=== PATIENT | male | born 1940 | race Caucasian/White ===

== ENCOUNTER 2019-01-28 03:24 | Inpatient (IN) | payer MEDICARE ==
[~2019-01-28] VITALS: Ht 170.2 cm; Wt 81.8 kg
[~2019-01-28 03:24] MED LIST: ASPI81TAEC PO; COLA100C5 PO; DIGO0.12 PO; FAMO20TA PO; FERR32TA PO; FLOM0.4C39 PO; FOLI1TAB11 PO; FURO20TA2 PO; GABA-843 PO; GEMF600T5 PO; KLOR10TA76 PO; LOPR1TAB6 PO; MAPA325T2 PO; PRAV1TAB39 PO; RISATAB3 PO; SERT25TA85 PO; SYMB16INH INH; VITMTA PO
[2019-01-28 05:37] VITALS: BP 132/78
[2019-01-28] MEDS ORDERED: THROMBIN SOLN 5,000 UNITS VIAL As Ordered ONE (06:19)
[2019-01-28] MEDS ORDERED: THROMBIN SOLN 5,000 UNITS VIAL TOP ONE (06:30)
[2019-01-28 06:34] LABS: HEMATOCRIT 29.1 % (42.0-52.0); HEMOGLOBIN 9.5 g/dl (13.5-17.5); MEAN CORPUSCULAR HEMOGLOBIN 30.9 pg (27.0-33.0); MEAN CORPUSCULAR HGB CONC 32.6 g/dl (32.0-36.5); MEAN CORPUSCULAR VOLUME 94.8 fl (80.0-96.0); PLATELET COUNT, AUTOMATED 132 10^3/uL (150-450); RED BLOOD COUNT 3.07 10^6/uL (4.30-6.10); WHITE BLOOD COUNT 6.6 10^3/uL (4.0-10.0)
[2019-01-28 06:42] LABS: INR 4.64
[2019-01-28] MEDS ORDERED: OMEP-221 PO (06:49)
[2019-01-28] MEDS ORDERED: NORC1TAB7 PO (06:49)
[2019-01-28] MEDS ORDERED: FERR325T16 PO (06:49)
[2019-01-28] MEDS ORDERED: CALC1CAP31 PO (06:49)
[2019-01-28] MEDS ORDERED: AMOX875T PO (06:49)
[2019-01-28] MEDS ORDERED: SERT25TA88 PO (06:49)
[2019-01-28] MEDS ORDERED: ROSU20TA4 PO (06:49)
[2019-01-28] MEDS ORDERED: FURO40TA2 PO (06:49)
[2019-01-28] MEDS ORDERED: WARF-58 PO (06:49)
[2019-01-28] MEDS ORDERED: METO25TA4 PO (06:49)
[2019-01-28] MEDS ORDERED: GEMF600T5 PO (06:49)
[2019-01-28] MEDS ORDERED: ALLO100T PO (06:49)
[2019-01-28] MEDS ORDERED: FINA5TAB2 PO (06:49)
[2019-01-28] MEDS ORDERED: LISI-542 PO (06:49)
[2019-01-28] MEDS ORDERED: FLOM0.4C39 PO (06:49)
[2019-01-28 07:11] LABS: ALBUMIN 3.6 GM/DL (3.2-5.2); BILIRUBIN,TOTAL 0.4 MG/DL (0.2-1.0); CALCIUM LEVEL 9.1 MG/DL (8.8-10.2); CREATININE FOR GFR 3.7 MG/DL (0.70-1.30); POTASSIUM SERUM 4.8 MEQ/L (3.5-5.1)
--- NOTE | 2019-01-28 07:46 | REP ---
Portable chest, 06:37 a.m., single AP view with the patient upright: Comparison is 03/09/2016. The bibasilar atelectasis on the prior study has resolved. There is new atelectasis inferiorly in the left lung on the current study. Lung hurtado otherwise clear. The cardiac size is normal. There are sternotomy wires, unchanged. Impression: The previous bibasilar atelectasis has resolved. There is new atelectasis inferiorly in the left lung. Electronically Signed by Devon Zavala MD 01/28/2019 07:37 A
[2019-01-28 08:00] VITALS: BP 126/70
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
[2019-01-28 08:59] VITALS: BP 124/67
[2019-01-28] MEDS ORDERED: FUROSEMIDE 40 MG TAB PO SCH (09:00)
[2019-01-28] MEDS ORDERED: METOPROLOL TART 12.5 MG PER 1/2 TAB PO SCH (09:00)
[2019-01-28] MEDS ORDERED: LISINOPRIL 5 MG TAB PO SCH (09:00)
[2019-01-28] MEDS ORDERED: SERTRALINE HCL 50 MG TAB PO SCH (09:00)
[2019-01-28] MEDS ORDERED: ALLOPURINOL 100 MG TAB PO SCH (09:00)
[2019-01-28] MEDS ORDERED: GEMFIBROZIL 600 MG TAB PO SCH (09:00)
[2019-01-28] MEDS ORDERED: PHYTONADIONE 2.5 MG **1/2 TAB PO ONE (09:00)
[2019-01-28] MEDS ORDERED: RISATAB3 PO (09:11)
[2019-01-28] MEDS ORDERED: ECOT81TA5 PO (09:11)
[2019-01-28] MEDS ORDERED: FOLI1TAB11 PO (09:11)
[2019-01-28] MEDS ORDERED: PANTOPRAZOLE 40MG TAB (PROTONIX) PO SCH (10:00)
[2019-01-28 10:58] VITALS: BP 114/65
[2019-01-28] MEDS ORDERED: FUROSEMIDE 20 MG/2 ML VIAL (J1940) IV ONE (11:00)
[2019-01-28 12:16] VITALS: BP 126/58
[2019-01-28 13:06] LABS: INR 2.51; PROTHROMBIN TIME 26.9 SECONDS (11.8-14.0)
[2019-01-28 16:00] VITALS: BP 142/69
[2019-01-28] MEDS ORDERED: WARFARIN SOD 3 MG TAB PO SCH (17:00)
--- NOTE | 2019-01-28 17:31 | REP ---
Urinary tract sonogram: History: Acute kidney injury on chronic kidney disease. Comparison: No comparison study. Findings: Scanning at the level of the urinary bladder shows no abnormality. Prostate dimensions by transabdominal scanning are 4.7 x 4.1 x 4.5 cm, calculated volume 45.3 ml. Renal cortical echogenicity pattern is normal bilaterally and contours are smooth. There is no evidence of hydronephrosis, cyst, mass, or calculus in either kidney. The right kidney measures 11.5 x 5.0 x 4.4 cm. Left renal dimensions are 11.2 x 5.0 x 5.3 cm. Impression: Mildly enlarged prostate, otherwise negative urinary tract sonography. Electronically Signed by Mina Cherry MD 01/28/2019 07:54 P
--- NOTE | 2019-01-28 19:02 | DS.PDOC ---
Discharge Summary General Date of Admission Jan 28, 2019 at 05:25 Date of Discharge JANUARY 28, 2019 Specialist/Consultants Involve: CAYETANO HENDRICKS DMD Discharge Summary PROCEDURES PERFORMED DURING STAY: None. ADMITTING DIAGNOSES: 1. Acute oral bleeding due to Coumadin coagulopathy. DISCHARGE DIAGNOSES: 1. Coumadin coagulopathy resolved,Coronary artery disease, aortic stenosis, status post aortic valve replacement, chronic atrial fibrillation, chronic kidney disease stage III, COPD, congestive heart failure, unspecified, benign prostatic hypertrophy, essential hypertension, dyslipidemia, peripheral vascular disease. COMPLICATIONS/CHIEF COMPLAINT: Post Op Bleed. HISTORY OF PRESENT ILLNESS: This is a 78-year-old male who's been on Coumadin therapy for chronic atrial fibrillation. He had some dental work and commence with bleeding from his mouth. Post procedure. At an outlying facility. He was found to have an elevated INR of at least 7. He subsequently sent to this facility for management.. HOSPITAL COURSE: The patient was admitted to the ICU. At this facility. His INR ascended to be 4.64. Patient was seen by the oral surgeon who requested that his INR be decreased further before he could have any invasive intervention. Patient then received 2 units of FFP. In the course of this. His bleeding did stop. His hemoglobin remained stable. We did note he had a large black bowel movement that was attributed to swallowed blood. The patient remained hemodynamically stable otherwise. His INR came down to 2.51. He was seen again by the oral surgeon and cleared for discharge to home. He was also cleared to resume his Coumadin. The patient does have a history of aortic valve replacement. This is a bioprosthetic valve.. DISCHARGE MEDICATIONS: Please see below. ALLERGIES: Please see below. PHYSICAL EXAMINATION ON DISCHARGE: VITAL SIGNS: Please see below. HEENT: Patient was not having any oral bleeding. He did have some swelling to his right lower jaw. CARDIOVASCULAR EXAMINATION: Regular rate and rhythm with a normal S1 and S2, faint murmur RESPIRATORY EXAMINATION: Clear to auscultation with no rhonchi, rales, wheezes or cough ABDOMINAL EXAMINATION: Soft, nondistended, otherwise benign to exam EXTREMITIES: No peripheral edema SKIN: No bruising or other lesions LABORATORY DATA: Please see below. IMAGING: PROGNOSIS: ACTIVITY: As tolerated. DIET: Soft DISCHARGE PLAN: The patient is stable for discharge to home. He will follow-up with his primary care provider next week. He will also follow up with his oral surgeon as needed. DISPOSITION: . DISCHARGE INSTRUCTIONS: 1. . ITEMS TO FOLLOWUP ON ON OUTPATIENT: 1. . DISCHARGE CONDITION: Stable. TIME SPENT ON DISCHARGE: Greater than 35 minutes. Vital Signs/I&Os Vital Signs Date Time Temp Pulse Resp B/P (MAP) Pulse Ox O2 Delivery O2 Flow Rate FiO2 01/28/19 16:00 98.6 93 18 142/69 (93) 95 I&O- Last 24 Hours up to 6 AM 01/28/19 06:00 Intake Total 0 ml Output Total 200 ml Balance -200 ml Laboratory Data Labs 24H Laboratory Tests 2 01/28/19 06:15: Nucleated Red Blood Cells % (auto) 0.0, Prothrombin Time 44.0H, Prothromb Time International Ratio 4.64, Anion Gap 10, Glomerular Filtration Rate 17.0L, Blood Urea Nitrogen 92H, Creatinine 3.70H, Sodium Level 141, Potassium Level 4.8, Chloride Level 108H, Carbon Dioxide Level 23, Calcium Level 9.1, Aspartate Amino Transf (AST/SGOT) 15, Alanine Aminotransferase (ALT/SGPT) 14, Alkaline Phosphatase 129H, Total Bilirubin 0.4, Total Protein 7.0, Albumin 3.6, Albumin/Globulin Ratio 1.06 01/28/19 12:40: Prothrombin Time 26.9H, Prothromb Time International Ratio 2.51 CBC/BMP Laboratory Tests 01/28/19 06:15 Red Blood Count 3.07 L, Mean Corpuscular Volume 94.8, Mean Corpuscular Hemoglobin 30.9, Mean Corpuscular Hemoglobin Concent 32.6, Red Cell Distribution Width 14.0, Calcium Level 9.1, Aspartate Amino Transf (AST/SGOT) 15, Alanine Aminotransferase (ALT/SGPT) 14, Alkaline Phosphatase 129 H, Total Bilirubin 0.4, Total Protein 7.0, Albumin 3.6 Discharge Medications Scheduled Allopurinol (Allopurinol) 100 Mg Tablet, 100 MG PO DAILY, (Reported) Amoxicillin (Amoxicillin) 875 Mg Tablet, 875 MG PO BID, (Reported) FILLED 01/25/19 FOR 5 DAYS Aspirin (Ecotrin) 81 Mg Tablet.dr, 81 MG PO QHS, (Reported) Calcitriol (Calcitriol) 0.25 Mcg Capsule, 0.25 MCG PO QHS, (Reported) Ferrous Gluconate (Ferrous Gluconate) 324 Mg Tablet, 324 MG PO QPM, (Reported) Finasteride (Finasteride) 5 Mg Tablet, 5 MG PO QHS, (Reported) Folic Acid (Folic Acid) 1 Mg Tablet, 1 MG PO QHS, (Reported) Furosemide (Furosemide) 40 Mg Tablet, 40 MG PO BID, (Reported) TAKES AM AND PM Gemfibrozil (Gemfibrozil) 600 Mg Tablet, 600 MG PO BID, (Reported) L.acidoph/L.bulg/B.bif/S.therm (Pearl-Bid Caplet) 1 Each Tablet, 1 TAB PO QPM, (Reported) Lisinopril (Lisinopril) 5 Mg Tablet, 5 MG PO DAILY, (Reported) Metoprolol Tartrate (Metoprolol Tartrate) 25 Mg Tablet, 12.5 MG PO BID, (Reported) Omeprazole (Omeprazole) 40 Mg Capsule.dr, 40 MG PO DAILY, (Reported) Rosuvastatin Calcium (Rosuvastatin Calcium) 20 Mg Tablet, 20 MG PO QHS, (Reported) Sertraline HCl (Sertraline HCl) 25 Mg Tablet, 25 MG PO DAILY, (Reported) Tamsulosin HCl (Flomax) 0.4 Mg Capsule, 0.4 MG PO QHS, (Reported) Warfarin Sodium (Warfarin Sodium) 3 Mg Tablet, 3 MG PO QHS, (Reported) Allergies Coded Allergies: No Known Allergies (Unverified , 01/28/19) VALERIY FINE MD Jan 28, 2019 19:02
[2019-01-28] MEDS ORDERED: TAMSULOSIN 0.4 MG CAP PO SCH (21:00)
[2019-01-28] MEDS ORDERED: FERROUS GLUCONATE 324 MG TAB PO SCH (21:00)
[2019-01-28] MEDS ORDERED: FOLIC ACID 1 MG TAB PO SCH (21:00)
[2019-01-28] MEDS ORDERED: FINASTERIDE 5 MG TAB PO SCH (21:00)
[2019-01-28] MEDS ORDERED: ROSUVASTATIN 10 MG TAB (CRESTOR) PO SCH (21:00)
== END 2019-01-28 19:01 | disposition home or self-care (01) | DRG 813 ==
LOC: M ICU 05:25
PROVIDERS: ADMIT Internal Medicine Nephrology; ATTEND Internal Medicine Nephrology
DX: D68.32 Hemorrhagic disorder due to extrinsic circulating anticoagulants (principal); K91.840 Postprocedural hemorrhage of a digestive system organ or structure following a digestive system procedure; N17.9 Acute kidney failure, unspecified; I13.0 Hypertensive heart and chronic kidney disease with heart failure and stage 1 through stage 4 chronic kidney disease, or unspecified chronic kidney disease; D68.4 Acquired coagulation factor deficiency; N18.3 Chronic kidney disease, stage 3 (moderate); I50.9 Heart failure, unspecified; J44.9 Chronic obstructive pulmonary disease, unspecified; I25.10 Atherosclerotic heart disease of native coronary artery without angina pectoris; I35.0 Nonrheumatic aortic (valve) stenosis; I48.2 Chronic atrial fibrillation; N40.0 Benign prostatic hyperplasia without lower urinary tract symptoms; E78.5 Hyperlipidemia, unspecified; I73.9 Peripheral vascular disease, unspecified; T45.515A Adverse effect of anticoagulants, initial encounter; Z79.899 Other long term (current) drug therapy; Z79.82 Long term (current) use of aspirin; M10.9 Gout, unspecified; E66.9 Obesity, unspecified

== ENCOUNTER 2019-01-29 17:16 | Emergency (ER) | payer MEDICARE ==
[~2019-01-29] VITALS: Ht 170.2 cm; Wt 81.8 kg
[~2019-01-29 17:16] MED LIST changes: +ALLO100T PO; +AMOX875T PO; +CALC1CAP31 PO; +ECOT81TA5 PO; +FERR325T16 PO; +FINA5TAB2 PO; +FURO40TA2 PO; +LISI-542 PO; +METO25TA4 PO; +NORC1TAB7 PO; +OMEP-221 PO; +ROSU20TA4 PO; +SERT25TA88 PO; +WARF-58 PO
[2019-01-29] MEDS ORDERED: THROMBIN SOLN 5,000 UNITS VIAL As Ordered ONE (17:43)
[2019-01-29 18:56] LABS: INR 3.02; PROTHROMBIN TIME 31.2 SECONDS (11.8-14.0)
[2019-01-29 19:45] VITALS: BP 143/84
== END 2019-01-29 20:04 | disposition home or self-care (01) ==
LOC: M ED 17:16
DX: K91.840 Postprocedural hemorrhage of a digestive system organ or structure following a digestive system procedure (principal); K08.409 Partial loss of teeth, unspecified cause, unspecified class; I11.0 Hypertensive heart disease with heart failure; I50.9 Heart failure, unspecified; I35.9 Nonrheumatic aortic valve disorder, unspecified; D50.9 Iron deficiency anemia, unspecified; K21.9 Gastro-esophageal reflux disease without esophagitis; E78.5 Hyperlipidemia, unspecified; Z79.899 Other long term (current) drug therapy; Z79.01 Long term (current) use of anticoagulants; Z79.2 Long term (current) use of antibiotics; Z79.82 Long term (current) use of aspirin

== ENCOUNTER 2020-09-06 15:29 | Inpatient (IN) | payer MEDICARE ==
[~2020-09-06] VITALS: Ht 170.2 cm; Wt 80.4 kg
[2020-09-06] VITALS (33 sets, daily range): BP systolic 79–119; BP diastolic 47–74
[~2020-09-06 15:29] MED LIST changes: +GABA-282 PO; -GABA-843 PO; -MAPA325T2 PO; +MAPA325T8 PO; -ROSU20TA4 PO; +ROSU20TA5 PO; +SERT25TA21 PO; -SERT25TA88 PO
[2020-09-06] MEDS ORDERED: HumaLOG INSULIN (NovoLOG) PER UNIT SC SCH ×2 (18:00→21:00)
[2020-09-06] MEDS ORDERED: NOREPINEPHRINE 4 MG/4 ML AMP As Ordered ONE (19:47)
--- OUTSIDE RECORDS SUMMARY | 2020-09-06 19:59 | CCD | Continuity of Care Document ---
Author Author Lasha DUARTE MD Organization Unknown Address [facility] [address] Phone [phone] Care Team Providers Care Drop Man Name Role Phone Devon Gee MD AUTM [phone] [place] Melgar MD AUTM [phone] Tray Vazquez MD AUTM [phone] Karl Weir MD AUTM [phone] Tono Guardado DO AUTM [phone] Problems Active Problems Provider Date Coronary arteriosclerosis Vivienyaquelin Metzgerw, PA-C Onset: 2010 Coronary artery bypass grafts x 2 Vivien Yaquelin Metzgerw, PA-C Onset : 07/02/2011 History of coronary artery bypass grafting Vivien Morel, P A-C Onset: 06/28/2015 Patient post percutaneous transluminal coronary angiop lasty Vivien Metzgerw, PA-C Onset: 07/02/2011 Aortic valve disorder Vivien E Javierenow, PA-C Onset: 07/02/2011 Transplantation of heart valve Vivien E Symenow, PA-C Onset: 0 10/25/2016 Chronic atrial fibrillation Vivien E Javierenow, PA-C Onset: 10/09 Aneurysm of thoracic aorta Vivien E Domenicaw, PA-C Onset: 10/25 Mitral valve disorder Vivien E Jaiverenow, PA-C Onset: 07/02/2011 Essential hypertension Vivien E [place]omenic[place], PA-C Onset: 5 Pure hypercholesterolemia Vivien E Javierenow, PA-C Onset: 2010 Obesity Vivien E Symenow, PA-C Onset: 07/02/2011 Peripheral vascular disease Vivien Morel PA-C Onset: 06/12 Mixed hyperlipidemia Vivien Morel PA-C Onset: 04/29/2017 Old myocardial infarction Vivien Morel PA-C Onset: 2017 Dietary management surveillance Vivien Morel PA-C Onset: 10/30/2017 Hypertensive heart disease with heart failure Vivien Morel PA-C Onset: 10/30/2017 Chronic diastolic heart failure Vivien Morel PA-C Onset: 10/30/2017 Permanent atrial fibrillation Vivien Morel PA-C Onset: Social History Type Date Description Comments Sex Unknown Tobacco Use Start: Unknown End: Unknown Former Cigarette Smo ker 1/2 ppd for 3 years quit 1955 ETOH Use Does not consume alcohol Tobacco Use Start: Unknown End: Unknown Patient is a former smoker 1/2 ppd for 3 years quit 1955 Smoking Status Reviewed: 08/01/20 Patient is a former smoker 1/ 2 ppd for 3 years quit 1955 Exercise Type/Frequency Does housework sporadica lly Exercise Type/Frequency General Activities Daily "puttering" in garage Exercise Type/Frequency Walks sporadically insid e house Exercise Limitations Shortness Of Breath Exercise Limitations Fatigue Allergies, Adverse Reactions, Alerts Description No Known Drug Allergies Medications Active Medications SIG Qnty Indications Ordering Provide r Date Eligard 45mg Kit 1 injection every 6 months as directed Tono Guardado DO 07/31/2020 Vitamin D 25mcg (1000 Ut) Tablets 1 by mouth every other day Tono Guardado DO 07/31/2020 Epogen 2000Unit/ML Solution inject as directed Karl Weir MD 07/31/2020 Albuterol Sulfate HFA 108(90Base) mcg/Act Aerosol inhale two puffs as needed every 4 hours Unknown 01/30/2020 Metoprolol Tartrate 25mg Tablets 1/2 by mouth twice a day Unknown 06/15/[address] 1 by mouth every day Devon Gee MD 05/04/2019 Warfarin Sodium 2mg Tablets as directed by PCP 180tabs Devon Gee MD 11/02/2018 Rosuvastatin Calcium 10mg Tablets 1 tablet by mouth daily at bedtime Unknown 2017 Finasteride 5mg Tablets 1 by mouth every day Devon Gee MD 11/30/2017 Folic Acid 1mg Tablets 1 by mouth every day Devon Gee MD 11/30/2017 Ferrous Gluconate 324(38Fe) mg Tab lets 1 by mouth once a day Devon Gee MD 11/30/2017 Furosemide 40mg Tablets 1 by mouth bid Karl Weir MD 10/29/2017 Warfarin Sodium 3mg Tablets as directed by pcp Unknown 04/28/2017 Allopurinol 100mg Tablets 1 by mouth every day Unknown 04/28/2017 Probiotic Acidophilus Capsules 1 by mouth every day Unknown 04/28/2017 Lisinopril 5mg Tablets 1 by mouth every day Unknown 10/24/2016 Aspirin 81mg Tablets 1 by mouth every day Devon Gee MD 10/24/2016 Tamsulosin HCL 0.4mg Capsules 1 by mouth every day LiliancapTray Nation MD 06/23/2014 Nitrostat 0.4mg Tablets Sub 1 sl every 5min x3 as needed for chest pain 25tabs I25.10 Harrison Duarte MD 03/15/2010 Gemfibrozil 600mg Tablets 1 tablet by mouth twice a day 180tabs E78.0 Harrison Duarte MD Immunizations Description No Information Available Vital Signs Date Vital Result Comment 08/01/2020 10:11am Weight 185.00 lb Height 67 inches 5'7" BMI (Body Mass Index) 29.0 kg/m2 Heart Rate 68 /min Irregular Respiratory Rate 16 /min BP Systolic Right Arm 122 mmHg sitting, regular c uff BP Diastolic Right Arm 66 mmHg sitting, regular cuff BP Systolic Left Arm 120 mmHg sitting BP Diastolic Left Arm 66 mmHg sitting 01/31/2020 9:41am Weight 184.00 lb Height 67 inches 5'7" BMI (Body Mass Index) 28.8 kg/m2 Heart Rate 72 /min Irregular Respiratory Rate 16 /min BP Systolic Right Arm 122 mmHg sitting, regular c uff BP Diastolic Right Arm 66 mmHg sitting, regular cuff BP Systolic Left Arm 124 mmHg sitting BP Diastolic Left Arm 66 mmHg sitting Results Test Acquired Date Facility Test Result H/L Range Note Renal Profile 07/12/2020 [facility] ([facility])- - Glucose 113 High 74-106 Blood Urea Nitrogen 78 High 7-18 Creatinine 3.6 High 0.8-1.3 GFR (Calculated) 17.4 Sodium 139 136-145 Potassium 4.7 3.6-5.2 Chloride 107 100-108 Carbon Dioxide 19 Low 21-32 Calcium 9.5 8.5-10.2 Phosphorus 4.0 Albumin 3.8 3.4-5.0 CBC without Differential 07/12/2020 [facility] ([facility])- - White Blood Count 4.5 4.1-11.0 Red Blood Count 3.1 Low 4.1-5.5 Platelets 164 143-377 Hemoglobin 10.0 Low 12.5-17.9 Hematocrit 30.5 Low 36.5-50.1 Tibc/Iron/% Saturation 07/12/2020 [facility] ([facility])- - Iron 82 65-175 Tibc 306 Tibc % Saturation 27 Procedures Date Code Description Status 08/01/2020 04805 ECG 12-Lead Completed Medical Devices Description No Information Available Encounters Type Date Location Provider Dx Diagnosis Office Visit 08/01/2020 10:15a Main Office Vivien Morel PA-C I25.1 0 Athscl heart disease of [place] coronary artery w/o ang pctrs I25.2 Old myocardial infarction 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 Z95.5 Presence of coronary angiopl asty implant and graft I50.32 Chronic diastolic (congestiv e) heart failure I11.0 Hypertensive heart disease w ith heart failure I35.0 Nonrheumatic aortic (valve) stenosis Z95.3 Presence of xenogenic heart valve I71.2 Thoracic aortic aneurysm, wi thout rupture I34.0 Nonrheumatic mitral (valve) insufficiency I34.2 Nonrheumatic mitral (valve) stenosis I48.21 Permanent atrial fibrillatio n I73.9 Peripheral vascular disease, unspecified Z71.3 Dietary counseling and surve illance Office Visit 06/26/2020 3:28p Main Office Harrison Duarte MD I34.0 Nonrheumatic mitral (valve) insufficiency I35.0 Nonrheumatic aortic (valve) stenosis I50.32 Chronic diastolic (congestiv e) heart failure E78.2 Mixed hyperlipidemia Office Visit 05/23/2020 3:11p Main Office Harrison Duarte MD I34.0 Nonrheumatic mitral (valve) insufficiency I35.0 Nonrheumatic aortic (valve) stenosis I50.32 Chronic diastolic (congestiv e) heart failure E78.2 Mixed hyperlipidemia Office Visit 05/10/2020 8:11a Main Office Harrison Duarte MD I34.0 Nonrheumatic mitral (valve) insufficiency I35.0 Nonrheumatic aortic (valve) stenosis I50.32 Chronic diastolic (congestiv e) heart failure E78.2 Mixed hyperlipidemia Office Visit 03/31/2020 2:49p Main Office Harrison Duarte MD I34.0 Nonrheumatic mitral (valve) insufficiency I35.0 Nonrheumatic aortic (valve) stenosis I50.32 Chronic diastolic (congestiv e) heart failure I25.10 Athscl heart disease of [place] coronary artery w/o ang pctrs Assessments Date Code Description Provider 08/01/2020 I25.10 Atherosclerotic heart disease of [place] coronary artery with Vivien Morel PA-C 08/01/2020 I25.2 Old myocardial infarction Vivien Morel, PA-C 08/01/2020 Z95.1 Presence of aortocoronary bypass graft Vivien Morel, PA-C 08/01/2020 Z95.5 Presence of coronary angioplasty implant and graft Vivien Morel, PA-C 08/01/2020 I50.32 Chronic diastolic (congestive) h eart failure Vivien Morel, PA-C 08/01/2020 I11.0 Hypertensive heart disease with heart failure Vivien Morel, PA-C 08/01/2020 I35.0 Nonrheumatic aortic (valve) sten osis Vivien Morel, PA-C 08/01/2020 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 Vivien Morel, PA-C 08/01/2020 I71.2 Thoracic aortic aneurysm, withou t rupture Vivien Morel, PA-C 08/01/2020 I34.0 Nonrheumatic mitral (valve) insu fficiency Vivien Morel, PA-C 08/01/2020 I34.2 Nonrheumatic mitral (valve) sten osis Vivien Morel, PA-C 08/01/2020 I48.21 Permanent atrial fibrillation Ahsan Canseco, PA-C 08/01/2020 I73.9 Peripheral vascular disease, uns pecified Vivien E Symenow, PA-C 08/01/2020 Z71.3 Dietary counseling and surveilla nce Vivien Morel PA-C 06/26/2020 I34.0 Nonrheumatic mitral (valve) insu fficiency Harrison Duarte MD 06/26/2020 I35.0 Nonrheumatic aortic (valve) sten osis Harrison Duarte MD 06/26/2020 I50.32 Chronic diastolic (congestive) h eart failure Harrison Duarte MD 06/26/2020 E78.2 Mixed hyperlipidemia Harrison dodge MD 05/23/2020 I34.0 Nonrheumatic mitral (valve) insu fficiency Harrison Duarte MD 05/23/2020 I35.0 Nonrheumatic aortic (valve) sten osis Harrison Duarte MD 05/23/2020 I50.32 Chronic diastolic (congestive) h eart failure Harrison Duarte MD 05/23/2020 E78.2 Mixed hyperlipidemia Harrison dodge MD 05/10/2020 I34.0 Nonrheumatic mitral (valve) insu fficiency Harrison Duarte MD 05/10/2020 I35.0 Nonrheumatic aortic (valve) sten osis Harrison Duarte MD 05/10/2020 I50.32 Chronic diastolic (congestive) h eart failure Harrison Duarte MD 05/10/2020 E78.2 Mixed hyperlipidemia Harrison dodge MD 03/31/2020 I34.0 Nonrheumatic mitral (valve) insu fficiency Harrison Duarte MD 03/31/2020 I35.0 Nonrheumatic aortic (valve) sten osis Harrison Duarte MD 03/31/2020 I50.32 Chronic diastolic (congestive) h eart failure Harrison Duarte MD 03/31/2020 I25.10 Atherosclerotic heart disease of [place] coronary artery with Harrison Duarte MD Plan of Treatment Future Appointment(s):* 01/31/2021 10:15 am - Vivien Morel PA-C at Main Office 08/01/2020 - Vivien Morel PA-C* I25.10 Atherosclerotic heart disease of [place] coronary artery with * I25.2 Old myocardial infarction * Z95.1 Presence of aortocoronary bypass graft * Z95.5 Presence of coronary angioplasty implant and graft * I50.32 Chronic diastolic (congestive) heart failure* Recommendations:* Follow a 2 grams sodium diet and 50 ounces fluid restriction per 24 hour and do daily weights. Call the office for weight gain of 3 lbs or more. * I11.0 Hypertensive heart disease with heart failure * I35.0 Nonrheumatic aortic (valve) stenosis * Z95.3 Presence of xenogenic heart valve* Recommendations:* You require antibiotics prior to any dental work and some surgical procedures. * I71.2 Thoracic aortic aneurysm, without rupture * I34.0 Nonrheumatic mitral (valve) insufficiency * I34.2 Nonrheumatic mitral (valve) stenosis * I48.21 Permanent atrial fibrillation * I73.9 Peripheral vascular disease, unspecified * Z71.3 Dietary counseling and surveillance* Recommendations:* Follow a low fat/low cholesterol diet and do as much aerobic exercise as you can tolerate. * All * Follow up:* 6 month follow up. Functional Status Functional Condition Comment Date Status Independent with all ADL's Activ e Mental Status Description No Information Available Referrals Description No Information Available
--- OUTSIDE RECORDS SUMMARY | 2020-09-06 19:59 | CCD | Continuity of Care Document ---
Author Author Lasha SAMPSON MD Organization Unknown Address [address] [place] [address] Phone [phone] Care Team Providers Care Glass Glazier Name Role Phone Karl Weir M.D. AUTM [phone] Tono Guardado MD AUTM [phone] Problems Active Problems Provider Date Microscopic hematuria Tray Sampson MD Onset: 04/28/2014 Raised prostate specific antigen Tray Sampson MD Onset: 04/28/2014 Benign prostatic hypertrophy with outflow obstruction Tushar Sampson MD Onset: 04/28/2014 Choco hematuria Tray Sampson MD Onset: 04/28/2014 Nocturia Tray Sampson MD Onset: 04/28/2014 Dribbling of urine Tray Sampson MD Onset: 04/28/2014 Increased frequency of urination Tray Sampson MD Onset: 05/13/2014 Impotence of organic origin Tray Sampson MD Onset: 05/12 Postablative testicular hypofunction Tray Sampson MD On set: 11/01/2019 Malignant tumor of prostate Tray Sampson MD Onset: 07/12 Neoplasm of uncertain behavior of prostate Tray Sampson MD Onset: 06/21/2019 Redundant prepuce and phimosis Tray Sampson MD Onset: 08/18/2017 Social History Type Date Description Comments Sex Unknown Tobacco Use Start: Unknown End: Former Cigarette Sm oker Smoking Status Reviewed: 08/14/20 Former Cigarette Smoker ETOH Use Patient denies alcohol use Exercise Type/Frequency Does housework daily Spl 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 wood, 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, works in his garage Allergies, Adverse Reactions, Alerts Description No Known Drug Allergies Medications Active Medications SIG Qnty Indications Ordering Provide r Date Eligard 45mg Kit subcut 1 every 6 months x2 2units Tray Sampson MD 08/02/2019 Finasteride 5mg Tablets Take One Tablet By Mouth Every Day 90tabs Tray Sampson MD 06/18/2017 Tamsulosin HCL 0.4mg Capsules Take One Capsule By Mouth Every Day After Dinner 90caps Tray Sampson MD 05/13/2014 Gemfibrozil 600mg Tablets Unknown Albuterol Sulfate (2 .5mg/3ML) 0.083% Nebulizer Unknown Calcitriol 0.25mcg Capsules Unknown Epogen 09880Kkzg/ML Solution every two weeks Unknown Rosuvastatin Calcium 10mg Tablets 1 tab po daily Unknown Ferrous Gluconate 324(38Fe) mg Tab lets daily Unknown Probiotic Capsules 1 cap po daily Unknown Allopurinol 100mg Tablets 1 tab po daily Unknown Warfarin Sodium 3mg Tablets 1 by mouth every day Unknown Lisinopril 5mg Tablets daily Unknown Lasix 40mg Tablets 1 by mo uth every day Unknown Metoprolol Tartrate 25mg Tablets 1/2 tab po bid Unknown Omeprazole 20mg Capsules DR 1 cap po daily Unknown Folic Acid 1mg Tablets daily Unknown Aspirin 81mg Tablets DR 1 by mouth every day Unknown Medications Administered in Office Medication SIG Qnty Indications Ordering Provider Date Maryd 6 Months 45MG Injection Tray Sampson MD 08/14/2020 Enzo 6 Months 45MG Injection [place] Nurse 02/03/2020 Enzo 6 Months 45MG Injection Tray Sampson MD 08/02/2019 Immunizations Description No Information Available Vital Signs Date Vital Result Comment 08/14/2020 1:20pm Height 67 inches 5'7" Weight 185.00 lb Weight 83.916 kg BMI (Body Mass Index) 29.0 kg/m2 BP Systolic 122 mmHg BP Diastolic 65 mmHg Heart Rate 89 /min Body Temperature 96.8 F 05/10/2020 1:42pm Height 67 inches 5'7" Weight 190.00 lb Weight 86.184 kg BMI (Body Mass Index) 29.8 kg/m2 BP Systolic 127 mmHg BP Diastolic 89 mmHg Heart Rate 86 /min Body Temperature 96.8 F Post Void Residual ml 17 Bladder Scanner Results Test Acquired Date Facility Test Result H/L Range Note PSA Total W/Reflex 08/14/2020 [facility] [address] [place] [address] [phone] Total PSA only <0.04 ng/mL 0.00-4.00 Hepatic Function Panel 08/14/2020 [facility] [address] [place] [address] [phone] Albumin 4.5 g/dL 3.2-4.6 Alk Phos 121.0 U/L High 45.0-117.0 Alt 13.0 U/L 0.0-55.0 Ast 15.0 U/L 11.0-39.0 Total Protien 7.1 g/dL 6.4-8.3 DBili 0.16 mg/dL 0.00-0.50 TBili 0.3 mg/dL 0.0-1.2 Globulin 2.6 Laboratory test finding 08/14/2020 [facility] [address] [place] [address] [phone] Testosterone 16.61 ng/dL Low 300.00-1000.00 230 Ua Routine 08/14/2020 [facility] REF TO DR ADDRESS ON ORDER FOR (372)- - Ua Glucose Negative Ua Protein Trace Ua Nitrite Negative Ua Leuko Negative Ua Blood Trace-intact Ua Color Not Entered Ua Ketones Negative Ua Clarity Not Entered Ua Specific [place] 1.015 1.003-1.030 Ua PH 5.0 5.0-7.5 Ua Bilirubin Negative Ua Urobilinogen 0.2 E.U./dL 0.0-1.0 CBC W/Diff 08/10/2020 Outside Facility (555)- - Hematocrit 33.8 Low 42-52 CMP 08/10/2020 Outside Facility (315)- - BUN - Urea Nitrogen 70 High 9-23 Creatinine 3.0 High 0.5-1.1 Testosterone Free & Total [facility]10[id number] [phone] Testosterone,Total @ 10 ng/dL Low (87-780) 1 Testo, Free 2 pg/mL Low (47-244) 2 Testo, Percent Free 2.0 % (1.6-2.9) Sex Horm Bind Glob @ 27 nmol/L (22-113) 3 PSA Total W/Reflex Free 05/10/2020 [facility] FX# [id number] [phone] PSA Total 0.1 ng/mL (0.0-4.0) 4 Hepatic Function 05/10/2020 [facility] FX# [id number] [phone] Total Protein 7.2 g/dL (6.4-8.2) Albumin 4.2 g/dL (3.2-4.5) Globulin 3.0 g/dL (2.7-4.3) Alb/Glob Ratio 1.4 RATIO Bilirubin,Total 0.3 mg/dL (0.0-1.0) 5 Bilirubin,Conjugated 0.1 mg/dL (0.0-0.3) Bilirubin,Unconj. 0.2 mg/dL (0.0-0.7) Alkaline Phosphatase 142 U/L High (45-117) Ast (Sgot) 15 U/L (11-39) Alt (SGPT) 16 U/L (12-78) 230 Ua Routine 05/10/2020 [facility] REF TO ADDRESS ON ORDER FOR (505)- - Ua Glucose Negative Ua Protein Negative Ua Nitrite Negative Ua Leuko Negative Ua Blood Trace-lysed Ua Color Not Entered Ua Ketones Negative Ua Clarity Not Entered Ua Specific [place] 1.015 1.003-1.030 Ua PH 5.5 5.0-7.5 Ua Bilirubin Negative Ua Urobilinogen 0.2 E.U./dL 0.0-1.0 1 PLEASE NOTE: REFERENCE RANGE IS GENDER SPECIFIC FOR ADULTS ONLY. AGE/BERTIN STAGE APPROPRIATE REFERENCE RANGES HAVE NOT BEEN ESTABLISHED FOR THIS METHODOLOGY. 2 THE CONCENTRATION OF FREE TE STOSTERONE IS DERIVED FROM A MATHEMATICAL EXPRESSION BASED ON THE CONSTANT FOR THE BINDING OF TESTOSTERONE TO SHBG. 3 ADULT REFERENCE RANGE 4 IN 20% OF CASES W/ BPH, PSA MAY BE 10 NG/ML OR MORE. SERUM PSA CONCENTRATION SHOULD NOT BE INTERPRETED ABSOLUTE EVIDENCE FOR THE PRESENCE OR ABSENCE OF MALIGNANT DISEASE. METHOD IS SIEMENS UppidyTA LOCI CHEMILUMINESCENT IMMUNOASSAY (CALIBRATION TRACEABLE TO WHO 1ST , 1998,96/668). VALUES OBTAINED WITH DIFFERENT ASSAY METHODS OR KITS CANNOT BE USED INTERCHANGEABLY. 5 PLEASE NOTE: Total bilirubin results may be falsely elevated in patients taking Eltrombopag. Procedures Date Code Description Status 08/14/2020 48887 Chemotherapy Injection; Hormonal Anti-Neoplastic Completed 05/10/2020 66296 Bladder Scan, Post Voiding Resid ual Urine Completed 05/10/2020 02556 Urodynamics, Complex Uroflowmetry Eg Calibrated Electronic Office Completed 08/11/2015 55747148 Colonoscopy Completed Medical Devices Description No Information Available Encounters Type Date Location Provider Dx Diagnosis Office Visit 08/14/2020 1:40p [facility]/ [facility] Ernie Sampson MD C61 Malignant neoplasm of prosta te E89.5 Postprocedural testicular hy pofunction N40.1 Benign prostatic hyperplasia with lower urinary tract symp R35.0 Frequency of micturition R35.1 Nocturia N39.43 Post-void dribbling R31.0 Gross hematuria N52.8 Other male erectile dysfunct ion N47.1 Phimosis Office Visit 05/10/2020 2:00p Kerwin Mercado/ [facility] Ernie Sampson MD C61 Malignant neoplasm of prosta te E89.5 Postprocedural testicular hy pofunction N40.1 Benign prostatic hyperplasia with lower urinary tract symp R35.0 Frequency of micturition R35.1 Nocturia N39.43 Post-void dribbling R31.0 Gross hematuria N52.8 Other male erectile dysfunct ion N47.1 Phimosis Assessments Date Code Description Provider 08/14/2020 C61 Malignant neoplasm of prostate Ernie Sampson MD 08/14/2020 E89.5 Postprocedural testicular hypofu nction Tray Sampson MD 08/14/2020 N40.1 Benign prostatic hyperplasia wit h lower urinary tract sympto Tray Sampson MD 08/14/2020 R35.0 Frequency of micturition Saroj Sampson MD 08/14/2020 R35.1 Nocturia Tray Sampson MD 08/14/2020 N39.43 Post-void dribbling Tray alexander MD 08/14/2020 R31.0 Gross hematuria Tray Sampson MD 08/14/2020 N52.8 Other male erectile dysfunction Tray Sampson MD 08/14/2020 N47.1 Phimosis Tray Sampson MD 08/14/2020 E89.5 Postprocedural testicular hypofu nction Bernardo Matthews MD 08/14/2020 C61 Malignant neoplasm of prostate B alpesh Matthews MD 05/10/2020 C61 Malignant neoplasm of prostate J bean Sampson MD 05/10/2020 E89.5 Postprocedural testicular hypofu nction Tray Sampson MD 05/10/2020 N40.1 Benign prostatic hyperplasia wit h lower urinary tract sympto Tray Sampson MD 05/10/2020 R35.0 Frequency of micturition Saroj Sampson MD 05/10/2020 R35.1 Nocturia Tray Sampson MD 05/10/2020 N39.43 Post-void dribbling Tray alexander MD 05/10/2020 R31.0 Gross hematuria Tray Sampson MD 05/10/2020 N52.8 Other male erectile dysfunction Tray Sampson MD 05/10/2020 N47.1 Phimosis Tray Sampson MD Plan of Treatment Future Appointment(s):* 11/20/2020 1:20 pm - Tray Sampson MD at [facility] 08/14/2020 - Tray Sampson MD* C61 Malignant neoplasm of prostate * E89.5 Postprocedural testicular hypofunction* New Labs:* Testosterone Free & Total, Ordered: 08/14/20 * N40.1 Benign prostatic hyperplasia with lower urinary tract sympto * R35.0 Frequency of micturition * R35.1 Nocturia * N39.43 Post-void dribbling * R31.0 Gross hematuria * N52.8 Other male erectile dysfunction * N47.1 Phimosis * All * Referral:* Tray Sampson M.D., Urology * Follow up:* Blood work now; follow-up in 3 months flow, PVR, AUA with urinalysis; get last note from PCP; get records from recent hospitalization from [facility]; get last note from Dr. Weir, patient's hematology/oncology physician Functional Status Description No Information Available Mental Status Description No Information Available Referrals Refer to Reason for Referral Status Appt Date Tray Sampson M.D. Eligard Created [facility] Urology [address] [place] [phone]
--- OUTSIDE RECORDS SUMMARY | 2020-09-06 20:00 | CCD | Continuity of Care Document ---
Author Author [facility] Organization [facility] Address [address] [place] [address] Phone Support Name Relationship Address Phone Julian Herrera PRS [address] [place] [address] Kaz Cid PRS [address] [place] [address] Tono Guardado PRS [address] [place] [address] Lillian Vazquze PRS [address] [place] [address] Tara Osborne PRS [address] [place] [address] HurstRiki sanz [employer]S [address] [place] [address] [place] [address] Kyaw Richardson [employer]S [address] [place] [address] Evan De Oliveira [employer]S [address] [place] [address] Carlos Drummond PRS [address] [place] [address] Sandhya Weir PRS [address] [place] [address] Carlos Galvin PRS [address] [place] [address] Shekhar Louis PRS [address] [place] [address] Allergies, Adverse Reactions, Alerts No known allergies. Medications Medication Status Dose Units Route Directions Qty Days Start Date End Date Instructions Omeprazole Discontinued 40 MG PO Once Per Day December 15, 2018 9:19am April 20, 2019 10:06am Furosemide (Lasix) 40 mg tablet Disc ontinued 40 MG PO O nce Per Day April 20 9 9:43am December 20, 2019 9:22am Rosuvastatin (Crestor) 20 mg tablet Discontinued 20 MG PO O nce Per Day April 20 9 9:43am May 16, 2020 9:13am Sertraline Discontinued 25 MG PO Once Per Day April 20, 2019 9:43am April 20, 2019 9:45am Warfarin Discontinued 3 MG PO Once Per Day April 20, 2019 9:44am November 23, 2019 9:21am Adjusting dose as needed depending on INR results Sertraline Discontinued 25 MG PO Once Per Day April 20, 2019 9:45am April 20, 2019 10:05am Omeprazole Discontinued 20 MG PO daily April 20, 2019 10:06am April 20, 2019 10:13am Omeprazole Discontinued 20 MG PO daily April 20, 2019 10:12am March 08, 2020 9:12am Gemfibrozil Discontinued 600 MG PO 2 Times Per Day July 19, 2019 10:18am September 14, 2019 1:21pm Albuterol Sulfate Discontinued 2 PUFFS IH Four Times a Da y 8.5 July 19, 2019 10:41am June 14, 2020 5:42pm Calcitriol Discontinued 0.25 MCG PO daily August 13, 2019 1:23pm July 11, 2020 11:02am pneumococcal 23-anna ps vaccine 25 mcg/0. 5 mL injection syringe Discontinued 0.5 ML IM ONE TIME 0.5 September 14, 2019 10:17am September 14, 2019 12:12pm Gemfibrozil Discontinued 600 MG PO 2 Times Per Day September 14, 2019 1:21pm May 16, 2020 9:13am Leuprolide (Eligard) 7.5 mg (1 month) syringe Active 7.5 MG SQ every 6 months December 09, 2019 7:33am Hydrocortisone (Anti-Itch (Hc)) 1 % cream Discontinued 1 APPLIC TOP 2 to 4 times per day March 08, 2020 9:10am May 16, 2020 9:43am Folic Acid Discontinued 1 MG PO Once Per Day March 08, 2020 9:11am March 14, 2020 3:22pm Lisinopril Active 5 MG PO Once Per Day March 08, 2020 9:11am TAKE ONE TABLET BY MOUTH EVERY DAY Allopurinol Active 100 MG PO Once Per Day March 08, 2020 9:11am TAKE ONE TABLET BY MOUTH EVERY DAY Omeprazole Active 20 MG PO daily 90 March 08, 2020 9:12am Ferrous Gluconate Active 324 MG PO Once Per Day 90 March 08, 2020 9:12am TAKE ONE TABLET BY MOUTH EVERY DAY Permethrin Active 1 APPLIC TOP EVERY 14 DAYS 60 July 11, 2020 11:29am apply second treatment [address] treatment if live lice remain Albuterol Sulfate Active 2 INH IH Four Times a Day 8.5 July 11, 2020 11:34am Gemfibrozil Active 600 MG PO 2 Times Per Day 180 May 16, 2020 9:13am Rosuvastatin (Crestor) 20 mg tablet Active 20 MG PO Once Per Day 90 May 16, 2020 9 :13am Hydrocortisone (Anti-Itch (Hc)) 1 % cream Active 1 APPLIC TOP 2 to 4 times per day May 16, 2020 9:42am Warfarin Active 2 MG PO 2 Times Per Week August 15, 2020 9:15am on friday and only. Aspirin Discontinued 325 MG PO Once Per Day March 19, 2014 8:09pm March 15, 2016 2:15pm Bisoprolol Fumarate Discontinued 5 MG PO Once Per Day March 19, 2014 8:0 9pm March 15, 2016 2:15pm Pravastatin Discontinued 80 MG PO At Bedtime March 19, 2014 8:09pm March 15, 2016 2:15pm Gemfibrozil Discontinued 600 MG PO 2 Times Per Day March 19, 2014 8:09pm March 15, 2016 2:15pm Lisinopril Discontinued 10 MG PO Once Per Day March 19, 2014 8:09pm March 15, 2016 2:15pm Multivitamin (Tab-A-Adore) 1 TAB tablet Discontinued 1 TAB PO O nce Per Day March 15, 2016 2:14pm May 08, 2016 12:23pm Acetaminophen (Tylenol) 325 MG tablet Active 650 MG PO Four Times a Day March 15, 2016 2:14pm Potassium Chloride Discontinued 1 TAB PO Once Per Day March 15, 2016 2:1 4pm June 05, 2016 9:02am Famotidine Discontinued 1 TAB PO Once Per Day March 15, 2016 2:14pm September 26, 2016 2:16pm Pravastatin Discontinued 1 TAB PO At Bedtime March 15, 2016 2:14pm June 05, 2016 9:02am Tamsulosin Discontinued 1 TAB PO Once Per Day March 15, 2016 2:14pm June 05, 2016 9:02am Gemfibrozil Discontinued 1 TAB PO 2 Times Per Day March 15, 2016 2:14pm June 05, 2016 9:02am Sertraline Discontinued 1 TAB PO Once Per Day March 15, 2016 2:14pm June 05, 2016 9:02am Folic Acid Discontinued 1 TAB PO 2 Times Per Day March 15, 2016 2:14pm June 05, 2016 9:02am Digoxin Discontinued 1 TAB PO Once Per Day March 15, 2016 2:14pm June 05, 2016 9:02am Furosemide Discontinued 40 MG PO 2 Times Per Day March 15, 2016 2:14pm March 19, 2016 10:21am Aa [id number]-Bonita-Hrb 126 (Gabadone Capsule) [id number] mg capsule Discontinued 300 MG PO Once Per Day March 15, 2016 2:14pm March 17, 2016 6:54am Ferrous Gluconate Discontinued 1 TAB PO Once Per Day March 15, 2016 2:14pm June 05, 2016 9:02am Budesonide-Formoterol (Symbicort) 60 PUF FS/6 GM HFA aerosol inhaler Discontinued 2 PUFFS INH 2 Times Per Day March 15, 2016 2:14pm May 9:02am Daniele (Pearl-Bid ) 1 billion cell- 250 mg tablet Discontinued 1 TAB PO 2 Times Per Day March 15, 2016 2:14pm May 082015 12:23pm Gabapentin Discontinued 300 MG PO 2 Times Per Day March 15, 2016 7:29pm June 05, 2016 9:02am Naproxen Sodium (Naprelan) 500 MG tablet, ER multiphas e 24 hr Discontinued 500 MG PO 2 Times Per Day March 15, 2016 7:43pm March 19, 2016 10:21am Aspirin Discontinued 81 MG PO Once Per Day March 19, 2016 10:19am June 05, 2016 9:02am Omeprazole Discontinued 1 CAP PO Once Per Day May 08, 2016 12:16pm June 05, 2016 9:02am Warfarin Discontinued 3 MG PO Once Per Day December 09, 2019 8:54am December 09, 2019 9:57am Allopurinol Discontinued 100 MG PO Once Per Day December 09, 2019 9:01am March 08, 2020 9:12am TAKE ONE TABLET BY MOUTH EVERY DAY Lisinopril Discontinued 5 MG PO Once Per Day December 09, 2019 9:01am March 08, 2020 9:12am TAKE ONE TABLET BY MOUTH EVERY DAY Metoprolol Tartrate Active 12.5 MG PO 2 Times Per Day December 09, 2019 9:0 1am 1/2 in the am and 1/2 in the pm Ferrous Gluconate Discontinued 324 MG PO Once Per Day December 09, 2019 9:0 1am March 08, 2020 9:12am TAKE ONE TABL ET BY MOUTH EVERY DAY Tamsulosin (Flomax) 0.4 MG capsule D iscontinued 0.4 MG PO Once Per Day July 25, 2014 9:27am March 15, 2016 2:15pm Finasteride Discontinued 5 MG PO Once Per Day 30 July 25, 2014 9:27am March 15, 2016 2:15pm Cephalexin Discontinued 500 MG PO Every 6 hours August 02, 2014 2:19pm September 15, 2014 2:53pm Naproxen Discontinued 500 MG PO 2 Times Per Day 60 September 22, 2014 10:43am October 21, 2014 7:49am Naproxen Discontinued 500 MG PO 2 Times Per Day 180 October 21, 2014 7:49am November 24, 2014 8:07am Naproxen Discontinued 500 MG PO Once Per Day 60 November 24, 2014 8:07am November 20, 2015 12:13pm Amoxicillin-Pot Clavulanate (Augmentin 8 75-125 Tablet) 1 EACH tablet Discontinued 875 MG PO Every 12 Hours 20 October 24, 2015 7:56am March 15, 2016 2:15pm Naproxen Discontinued 500 MG PO 2 Times Per Day 60 November 20, 2015 12:13pm March 15, 2016 2:15pm Omeprazole Discontinued 1 CAP PO Once Per Day 90 June 05, 2016 9:02am March 20, 2017 10:54am Aspirin Discontinued 81 MG PO Once Per Day June 05, 2016 9:02am December 09, 2018 5:27am Aspirin Active 81 MG PO Once Per Day 90 June 05, 2016 9:02am Pravastatin Discontinued 1 TAB PO At Bedtime June 05, 2016 9:02am February 20, 2017 1:54pm Tamsulosin Discontinued 1 TAB PO Once Per Day 90 June 05, 2016 9:02am August 19, 2017 9:48am Gemfibrozil Discontinued 1 TAB PO 2 Times Per Day 60 June 05, 2016 9:02am March 20, 2017 10:54am Sertraline Discontinued 1 TAB PO Once Per Day 90 June 05, 2016 9:02am April 21, 2017 6:38am Folic Acid Discontinued 1 TAB PO 2 Times Per Day 90 June 05, 2016 9:02am December 10, 2016 10:43am Digoxin Discontinued 1 TAB PO Once Per Day 90 June 05, 2016 9:02am March 31, 2017 10:28am Gabapentin Discontinued 300 MG PO 2 Times Per Day 60 June 05, 2016 9:02am September 26, 2016 2:16pm Metoprolol Tartrate Discontinued 25 MG PO 2 Times Per Day 180 June 05, 2016 9:02am March 20, 2017 10:54am Ferrous Gluconate Discontinued 1 TAB PO Once Per Day 30 June 05, 2016 9:02am December 09, 2016 6:08am Budesonide-Formoterol (Symbicort 160-4.5 Mcg Inhaler) 60 PUFFS/6 GM HFA aerosol inhaler Discontinued 2 PUFFS INH 2 Times Per Day 1 June 05, 2016 9:02am July 15, 2016 2:05pm Lisinopril Discontinued 5 MG PO Once Per Day June 11, 2016 12:34pm February 20, 2017 1:54pm Furosemide (Lasix) 20 MG tablet Disc ontinued 1 TAB PO O nce Per Day June 11, 2016 12:34pm December 10, 2016 10:07am Colchicine (Colcrys) 0.6 MG tablet D iscontinued 0.6 MG PO Three times a day June 11, 2016 12:34pm February 16, 2018 9:34am Albuterol Sulfate (Ventolin Hfa) 18 GM HFA aerosol inh aler Discontinued 2 PUFFS IH Every 4 hours July 15, 2016 2:05pm May 8:21am Fluticasone Propionate (Flonase Allergy Relief) 9.9 ML spray,suspension Discontinued 2 SPRAYS NS 2 Times Per Day 1 September 26, 2016 2:44pm May 192016 3:52pm Doxycycline Monohydrate Discontinued 100 MG PO 2 Times Per Day September 27, 2016 6:40pm November 07, 2016 1:43pm Zoster Vaccine Live (Pf) (Zostavax Vial) 48626 UNIT/0.65 ML suspension for reconstitution Discontinued [id number] UNIT SQ ONE TIME 1 October 31, 2016 6:22am November 07, 2016 1:43pm Warfarin Discontinued 2 MG PO 2 Times Per Day 60 November 07, 2016 2:15pm February 20, 2017 1:54pm Warfarin Discontinued 5 MG PO Once Per Day November 07, 2016 2:15pm February 20, 2017 1:54pm Ferrous Gluconate Discontinued 1 TAB PO Once Per Day December 09, 2016 6:08am December 10, 2016 10:43am Cetirizine (Zyrtec) 10 MG tablet Dis continued 10 MG PO O nce Per Day December 10, 2016 10:0 6am March 31, 2017 10:28am Furosemide (Lasix) 40 MG tablet Disc ontinued 40 MG PO O nce Per Day December 10, 2016 10:07 am May 29, 2017 12:08pm Amoxicillin-Pot Clavulanate (Augmentin 8 75-125 Tablet) 1 EACH tablet Discontinued 875 MG PO Every 12 Hours December 10, 2016 10:42am January 08, 2017 8:15am Folic Acid Discontinued 1 TAB PO 2 Times Per Day December 10, 2016 10:43am February 18, 2017 11:09am Ferrous Gluconate Discontinued 1 TAB PO Once Per Day December 10, 2016 10:43am February 20, 2017 1:54pm Cephalexin Discontinued 500 MG PO Three times a day February 12, 2017 1:42pm August 19, 2017 9:48am Lactobacillus Combination No.4 (Probiotic) 1 EACH caps ule Discontinued 1 EACH PO Once Per Day February 12, 2017 1:42pm December 09, 2018 5:51am Lactobacillus Combination No.4 (Probiotic) 1 EACH caps ule Active 1 EACH PO Once Per Day February 12, 2017 1:42pm Folic Acid Discontinued 1 TAB PO Once Per Day February 18, 2017 11:09am February 20, 2017 1:54pm Allopurinol Discontinued 1 TAB PO Once Per Day 90 February 18, 2017 11:20am January 08, 2018 3:24pm Pravastatin Discontinued 1 TAB PO At Bedtime February 20, 2017 1:54pm January 08, 2018 3:24pm Warfarin Discontinued 2 MG PO 2 Times Per Day 60 February 20, 2017 1:54pm June 22, 2017 2:26pm Warfarin Discontinued 5 MG PO Once Per Day February 20, 2017 1:54pm December 26, 2017 11:40am Folic Acid Discontinued 1 TAB PO Once Per Day 90 February 20, 2017 1:54pm March 16, 2018 6:57am Lisinopril Discontinued 5 MG PO Once Per Day February 20, 2017 1:54pm May 29, 2017 12:08pm Ferrous Gluconate Discontinued 1 TAB PO Once Per Day February 20, 2017 1:54pm June 22, 2017 2:26pm Omeprazole Discontinued 1 CAP PO Once Per Day 90 March 20, 2017 10:54am December 09, 2018 5:55am Omeprazole Discontinued 1 CAP PO Once Per Day 90 March 20, 2017 10:54am December 15, 2018 9:21am Gemfibrozil Discontinued 1 TAB PO 2 Times Per Day 60 March 20, 2017 10:54am August 19, 2017 9:48am Metoprolol Tartrate Discontinued 25 MG PO 2 Times Per Day 180 March 20, 2017 10:54am January 08, 2018 3:24pm Cetirizine (Zyrtec) 10 MG tablet Dis continued 10 MG PO O nce Per Day 100 March 31, 2017 10:28am February 16, 2018 9:34am Digoxin Discontinued 1 TAB PO Once Per Day 90 March 31, 2017 10:28am January 08, 2018 3:24pm Sertraline Discontinued 1 TAB PO Once Per Day 90 April 21, 2017 6:38am May 29, 2017 12:08pm Ipratropium [place] Discontinued 2 SPRAYS NA 2 Times Per Da y May 19, 2017 3: 52pm December 09, 2018 6:03am Ipratropium [place] Discontinued 2 SPRAYS NA 2 Times Per Da y May 19, 2017 3: 52pm December 09, 2019 7:50am Pneumoc 13-Anna Conj-Dip Cr(Pf) (Prevnar 13*) 0.5 ML sy ringe Discontinued 0.5 ML IM ONE TIME 1 May 19, 2017 4:09pm May 4:13pm Flu Vaccine [id number](5 Yr Up) (Afluria [id number]) 45 MCG/0.5 ML suspension Discontinued 45 MCG IM ONE TIME May 19, 2017 4:09pm May 4:13pm Furosemide (Lasix) 40 MG tablet Disc ontinued 40 MG PO O nce Per Day May 29, 2017 12:08pm May 19, 2018 8:21am Sertraline Discontinued 1 TAB PO Once Per Day May 29, 2017 12:08pm May 19, 2018 8:21am Lisinopril Discontinued 5 MG PO Once Per Day May 29, 2017 12:08pm June 22, 2017 2:26pm Warfarin Discontinued 2 MG PO 2 Times Per Day 60 June 22, 2017 2:26pm December 26, 2017 11:40am Lisinopril Discontinued 5 MG PO Once Per Day June 22, 2017 2:26pm May 19, 2018 8:21am Ferrous Gluconate Discontinued 1 TAB PO Once Per Day June 22, 2017 2:26pm December 15, 2017 5:49am Tamsulosin Discontinued 1 TAB PO Once Per Day 90 August 19, 2017 9:48am December 09, 2018 6:18am Tamsulosin Active 1 TAB PO Once Per Day 90 August 19, 2017 9:48am Gemfibrozil Discontinued 1 TAB PO 2 Times Per Day 180 August 19, 2017 9:48am September 18, 2018 1:47pm Finasteride Active 5 MG PO Once Per Day 90 August 19, 2017 9:48am Ferrous Gluconate Discontinued 1 TAB PO Once Per Day December 15, 2017 5:49am June 15, 2018 7:20am Warfarin Discontinued 2 MG PO 2 Times Per Day 60 December 26, 2017 11:40am January 08, 2018 8:07am Arevalo 3 MG, M 3 MG, Tu 3 MG, W 3 MG, Th 3 M G, F 3 MG, Sa 3 MG Warfarin Discontinued 5 MG PO Once Per Day 30 December 26, 2017 11:40am January 08, 2018 8:07am Arevalo 3 MG, M 3 MG, Tu 3 MG, W 3 MG, Th 3 M G, F 3 MG, Sa 3 MG Warfarin Discontinued 2 MG PO 2 Times Per Day 60 January 08, 2018 8:07am January 14, 2018 5:08pm Arevalo 3 MG, M 2 MG, Tu 3 MG, W 3 MG, Th 2 M G, F 3 MG, Sa 2 MG Warfarin Discontinued 5 MG PO Once Per Day January 08, 2018 8:07am January 14, 2018 5:08pm Arevalo 3 MG, M 2 MG, Tu 3 MG, W 3 MG, Th 2 M G, F 3 MG, Sa 2 MG Allopurinol Discontinued 1 TAB PO Once Per Day 90 January 08, 2018 3:24pm December 09, 2018 6:53am Allopurinol Discontinued 1 TAB PO Once Per Day January 08, 2018 3:24pm December 28, 2018 1:13pm Pravastatin Discontinued 1 TAB PO At Bedtime January 08, 2018 3:24pm February 16, 2018 9:49am Digoxin Discontinued 1 TAB PO Once Per Day January 08, 2018 3:24pm December 09, 2018 6:53am Digoxin Discontinued 1 TAB PO Once Per Day January 08, 2018 3:24pm December 09, 2019 7:34am Metoprolol Tartrate Discontinued 25 MG PO 2 Times Per Day 180 January 08, 2018 3:2 4pm December 09, 2018 6:53am Metoprolol Tartrate Discontinued 25 MG PO 2 Times Per Day 180 January 08, 2018 3:2 4pm December 28, 2018 1:12pm Warfarin Discontinued 2 MG PO 2 Times Per Day 60 January 14, 2018 5:08pm February 10, 2018 11:44am Arevalo 3 MG, M 2 MG, Tu 3 MG, W 3 MG, Th 2 M G, F 3 MG, Sa 2 MG Warfarin Discontinued 5 MG PO Once Per Day 30 January 14, 2018 5:08pm February 10, 2018 11:44am Arevalo 3 MG, M 2 MG, Tu 3 MG, W 3 MG, Th 2 M G, F 3 MG, Sa 2 MG Warfarin Discontinued 2 MG PO 2 Times Per Day 60 February 10, 2018 11:44am March 11, 2018 12:19pm Arevalo 3 MG, M 2 MG, Tu 3 MG, W 3 MG, Th 2 M G, F 3 MG, Sa 2 MG Warfarin Discontinued 5 MG PO Once Per Day February 10, 2018 11:44am March 11, 2018 12:19pm Arevalo 3 MG, M 2 MG, Tu 3 MG, W 3 MG, Th 2 M G, F 3 MG, Sa 2 MG Cholecalciferol (Vitamin D3) (Vitamin D3) 1000 UNIT ca psule Discontinued 1000 UNIT PO Once Per Day February 16, 2018 9:47am September 24, 2018 8:54am Rosuvastatin (Crestor) 10 MG tablet Discontinued 10 MG PO O nce Per Day February 16, 2018 9:49 am May 07, 2018 3:39pm Warfarin Discontinued 2 MG PO 2 Times Per Day 60 March 11, 2018 12:19pm April 08, 2018 4:58pm Arevalo 3 MG, M 2 MG, Tu 3 MG, W 3 MG, Th 2 MG, F 3 MG, Sa 2 MG Warfarin Discontinued 5 MG PO Once Per Day March 11, 2018 12:19pm April 08, 2018 4:58pm Arevalo 3 MG, M 2 MG, Tu 3 MG, W 3 MG, Th 2 M G, F 3 MG, Sa 2 MG Folic Acid Discontinued 1 TAB PO Once Per Day March 16, 2018 6:57am December 09, 2018 7:22am Folic Acid Discontinued 1 TAB PO Once Per Day March 16, 2018 6:57am March 24, 2019 3:55pm Warfarin Discontinued 2 MG PO 2 Times Per Day 60 April 08, 2018 4:58pm May 06, 2018 9:28am Arevalo 3 MG, M 2 MG, Tu 3 MG, W 3 MG, Th 2 MG, F 3 MG, Sa 2 MG Warfarin Discontinued 5 MG PO Once Per Day 30 April 08, 2018 4:58pm April 09, 2018 12:12pm Arevalo 3 MG, M 2 MG, Tu 3 MG, W 3 MG, Th 2 M G, F 3 MG, Sa 2 MG Warfarin Discontinued 3 MG PO Once Per Day April 09, 2018 12:12pm December 09, 2018 7:32am Adjusting dose as needed depending on IN R results Warfarin Discontinued 3 MG PO Once Per Day April 09, 2018 12:12pm April 20, 2019 9:45am Adjusting dose as needed depending on INR results Warfarin Discontinued 2 MG PO 2 Times Per Day 60 May 06, 2018 9:28am May 13, 2018 12:11pm Arevalo 3 MG, M 2 MG, Tu 3 MG, W 2 MG, Th 2 MG, F 3 MG, Sa 2 MG Rosuvastatin (Crestor) 20 MG tablet Discontinued 20 MG PO O nce Per Day May 07 8 3:42pm December 09, 2018 7:47am Rosuvastatin (Crestor) 20 MG tablet Discontinued 20 MG PO O nce Per Day May 07 8 3:42pm April 20, 2019 9:45am Warfarin Discontinued 2 MG PO 2 Times Per Day May 13, 2018 12:11pm June 10, 2018 12:44pm Arevalo 3 MG, M 2 MG, Tu 3 MG, W 2 MG, Th 2 MG, F 3 MG, Sa 2 MG Furosemide (Lasix) 40 MG tablet Disc ontinued 40 MG PO O nce Per Day May 19, 2018 8 :am December 09, 2018 7:53am Furosemide (Lasix) 40 MG tablet Disc ontinued 40 MG PO O nce Per Day May 19, 2018 8 :am April 20, 2019 9:45am Sertraline Discontinued 1 TAB PO Once Per Day May 19, 2018 8:December 09, 2018 7:53am Sertraline Discontinued 1 TAB PO Once Per Day May 19, 2018 8:am April 20, 2019 9:45am Lisinopril Discontinued 5 MG PO Once Per Day May 19, 2018 8:21am June 15, 2018 7:20am Colchicine (Colcrys) 0.6 MG tablet D iscontinued 0.6 MG PO 2 Times Per Day May 19, 2018 8:21am December 09, 2018 7:53am Colchicine (Colcrys) 0.6 MG tablet D iscontinued 0.6 MG PO 2 Times Per Day May 19, 2018 8:am December 09, 2019 7:49am Cholecalciferol (Vitamin D3) Discontinued 1 CAP PO 1 Time Per Week May 19, 2018 8 :December 09, 2019 7:34am Warfarin Discontinued 2 MG PO 2 Times Per Day June 10, 2018 12:44pm August 09, 2018 4:09pm Arevalo 3 MG, M 2 MG, Tu 3 MG, W 2 MG, Th 2 MG, F 3 MG, Sa 2 MG Lisinopril Discontinued 5 MG PO Once Per Day June 15, 2018 7:20am December 09, 2018 8:09am Lisinopril Discontinued 5 MG PO Once Per Day June 15, 2018 7:20am December 28, 2018 1:10pm Ferrous Gluconate Discontinued 1 TAB PO Once Per Day June 15, 2018 7:20am December 09, 2018 8:09am Ferrous Gluconate Discontinued 1 TAB PO Once Per Day June 15, 2018 7:20am December 28, 2018 1:13pm Amoxicillin Discontinued 2 GM PO ONE TIME 4 June 29, 2018 5:39pm December 09, 2018 8:19am 1 hour before dental work Amoxicillin Discontinued 2 GM PO ONE TIME 4 June 29, 2018 5:39pm February 10, 2019 7:21am 1 hour before dental work Warfarin Discontinued 2 MG PO 2 Times Per Day 60 August 09, 2018 4:09pm September 02, 2018 2:04pm Arevalo 3 MG, M 2 MG, Tu 3 MG, W 2 MG, Th 2 MG, F 3 MG, Sa 2 MG Warfarin Discontinued 2 MG PO 2 Times Per Day 60 September 02, 2018 2:04pm September 16, 2018 12:54pm Arevalo 3 MG, M 2 MG, Tu 2 MG, W 2 MG, Th 2 MG, F 2 MG, Sa 2 MG Warfarin Discontinued 2 MG PO 2 Times Per Day 60 September 16, 2018 12:54pm October 18, 2018 8:27pm Arevalo 3 MG, M 2 MG, Tu 2 MG, W 2 MG, Th 2 MG, F 2 MG, Sa 2 MG Gemfibrozil Discontinued 1 TAB PO 2 Times Per Day 180 September 18, 2018 1:47pm December 09, 2018 9:30am Gemfibrozil Discontinued 1 TAB PO 2 Times Per Day 180 September 18, 2018 1:47pm July 19, 2019 10:19am Metoprolol Tartrate Discontinued 25 MG PO Once Per Day 90 September 24 9 11:05am December 09, 2018 9:37am 1/2 in the am a nd 1/2 in the pm Metoprolol Tartrate Discontinued 25 MG PO Once Per Day 90 September 24 9 11:05am December 07, 2019 11:57am 1/2 in the am and 1/2 in the pm Warfarin Discontinued 2 MG PO 2 Times Per Day 60 October 18, 2018 8:27pm November 18, 2018 9:35am Arevalo 3 MG, M 2 MG, Tu 2 MG, W 2 MG, Th 2 M G, F 2 MG, Sa 2 MG Warfarin Discontinued 2 MG PO 2 Times Per Day 60 November 18, 2018 9:35am November 25, 2018 7:12am Arevalo 3 MG, M 2 MG, Tu 3 MG, W 2 MG, Th 3 M G, F 2 MG, Sa 2 MG Warfarin Discontinued 2 MG PO 2 Times Per Day 60 November 25, 2018 7:12am December 09, 2018 10:48am Arevalo 3 MG, M 2 MG, Tu 3 MG, W 2 MG, Th 3 M G, F 2 MG, Sa 2 MG Warfarin Discontinued 2 MG PO 2 Times Per Day 60 November 25, 2018 7:12am December 06, 2019 1:21pm Arevalo 3 MG, M 2 MG, Tu 3 MG, W 2 MG, Th 3 M G, F 2 MG, Sa 2 MG Lisinopril Discontinued 0 .ROUTE .COMPLEX 90 December 28, 2018 1:10pm December 09, 2019 9:01am TAKE ONE TABLET BY MOUTH EVERY DAY Metoprolol Tartrate Discontinued 0 .ROUTE .COMPLEX 180 December 28, 2018 1:12pm November 23, 2019 12:50pm TAKE ONE TA BLET BY MOUTH TWICE A DAY Ferrous Gluconate Discontinued 0 .ROUTE .COMPLEX 90 December 28, 2018 1:12pm December 09, 2019 9:01am TAKE ONE TABLET BY MOUTH EVERY DAY Allopurinol Discontinued 0 .ROUTE .COMPLEX 90 December 28, 2018 1:13pm December 09, 2019 9:01am TAKE ONE TABLET BY MOUTH EVERY DAY Warfarin Discontinued 2.5 MG PO daily 90 February 10, 2019 11:38am October 20, 2019 9:33am Warfarin Discontinued 1 MG PO daily February 10, 2019 11:41am October 20, 2019 9:33am half tab daily Folic Acid Discontinued 1 MG PO Once Per Day 90 March 24, 2019 3:54pm March 08, 2020 9:12am Warfarin (Coumadin) 4 mg tablet Disc ontinued 4 MG PO da edmund 30 November 23, 2019 9: 21am December 06, 2019 1:21pm Metoprolol Tartrate Discontinued 25 MG PO 2 Times Per Day 180 November 23, 2019 1 2:47pm December 07, 2019 11:54am Rivaroxaban (Xarelto) 2.5 mg tablet Discontinued 2.5 MG PO 2 Times Per Day 60 December 06, 2019 1:21pm January 23, 2020 3:32pm Metoprolol Tartrate Discontinued 25 MG PO 2 Times Per Day 180 December 07, 2019 1 1:54am December 07, 2019 11:57am Metoprolol Tartrate Discontinued 25 MG PO Once Per Day 90 December 07, 2019 1 1:57am December 09, 2019 9:01am 1/2 in the a m and 1/2 in the pm Furosemide (Lasix) 40 mg tablet Disc ontinued 40 MG PO O nce Per Day December 20, 2019 9:22 am December 22, 2019 9:23am Furosemide (Lasix) 40 mg tablet Active 40 MG PO 2 Times Per Day 180 December 22, 2019 9:2 3am Warfarin Discontinued 3 MG PO daily December 24, 2019 9:56am February 10, 2020 10:25am Warfarin Discontinued 2 MG PO every other day January 24, 2020 3:32pm February 10, 2020 10:25am on odd numbered days Warfarin Active 3 MG PO daily February 10, 2020 10:23am 3 mg daily except friday and , 2mg on those days Warfarin Discontinued 2 MG PO 2 Times Per Week February 10, 2020 10:25am August 15, 2020 9:17am on friday and only. Folic Acid Active 1 MG PO Once Per Day March 14, 2020 3:21pm Albuterol Sulfate Discontinued 2 INH IH Four Times a Day 8.5 June 14, 2020 5:41pm July 11, 2020 11:39am Problems Active Problems Medical Problem Onset Date Status Hypertension, essential, benign January 06, 2015 Active Chronic kidney disease, stage 4 (severe) Active Congestive heart failure (CHF) Active Atrial fibrillation Ac tive On warfarin therapy December 08, 2018 Active Dermatitis Active Hypercholesterolemia January 06, 2015 Active Diabetes mellitus type 2 in obese [place] [facility] 2014 Active Adenocarcinoma of prostate Active Neck pain Active Inactive/Resolved Problems Medical Problem Onset Date Status 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, 2015 Resolved Carpal tunnel syndrome on right Febr uary 2014 Resolved Atrial fibrillation with controlled ventricular respon se Resolved Exercise-induced shortness of breath Resolved Peripheral vascular disease in diabetes mellitus January 06, 2015 Resolved 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 Feb ruary 2014 Resolved Neck pain on left side Resolved Traumatic arthropathy, right wrist D ecember 2013 Resolved Late effect of tendon injury Decembe r 2013 Resolved Heart valve replaced R esolved Scabies Resolved Skin sensation disturbance July 25, 2014 Resolved Seborrheic keratosis September 26, 2016 Resolved Anemia Resolved Chronic renal impairment, stage 3 (moderate) October 09, 2015 Resolved Bradycardia Resolved BPH w urinary obs/LUTS August 19, 2017 Resolved Bleeding diathesis Res olved Viral wart on finger R esolved CKD (chronic kidney disease) stage 3, GFR 30-59 ml/min Resolved Itch of skin Resolved Tachycardia Resolved Chronic atrial fibrillation June 11, 2016 Resolved Bug bite without infection Resolved Ischemic colitis February 19, 2016 Resolved Weakness Resolved Aortic valve prosthesis present Resolved Viral upper respiratory infection Resolved Chronic renal failure Resolved Foreign body in hand July 25, 2014 Resolved Itching due to drug Re solved Prostate nodule Resolv ed Vitamin D deficiency September 24, 2018 Resolved Laceration of ear, external, left, complicated Resolved Late eff nerv injury shld/arm Decemb er 2013 Resolved Procedures Procedure Date Performed Status Xray Chest One View August 09, 020 3:40pm completed CT Head without contrast August 092019 6:24pm completed US Carotid art complete bilat Decemb er 2019 7:16pm completed US Echo complete August 10, 2020 10:01am completed Respiratory Panel (PCR) August [address] Head without contrast January 23, 2020 3:47pm completed Xray Chest One View January 23, 2020 3:48pm completed Xray Chest One View December 09, 2019 9:19a m completed Xray Cervical spine complete October 092019 10:02am completed Relevant Diagnostic Tests and/or Laboratory Data Laboratory Results Test Date/Time Result Interpretation Reference Range Result Comment Performing Site INR International Normalized Ratio J gabriella 2019 12:46pm 1.8 INR International Normalized Ratio M arch 2019 8:42am 1.8 INR International Normalized Ratio M arch 2019 2:59pm 2.0 INR International Normalized Ratio M arch 2019 11:55am 1.7 INR International Normalized Ratio J anuary 2019 5:06pm 2.5 White Blood Count August 10 0 5:07am 5.0 10e3/uL 4.45-10.71 [facility], [address] [facility] [address] White Blood Count July 26 0 10:55am 5.1 10e3/uL 4.45-10.71 [facility], [address] [place] [address] White Blood Count January 23, 2020 3:25pm 5.4 10e3/uL 4.45-10.71 [facility], [address] [place] [address] White Blood Count December 09, 2019 8:50am 4.9 10e3/uL 4.45-10.71 [facility], [address] [place] [address] Red Blood Count August 10, 2020 5:07am 3.39 10e6/uL 4.3-6.1 [facility], [address] [place] [address] Red Blood Count July 26, 2020 10:55a m 3.50 10e6/uL 4.3-6.1 [facility], [address] [place] [address] Red Blood Count January 23, 2020 3:25pm 3.52 10e6/uL 4.3-6.1 [facility], [address] [place] [address] Red Blood Count December 09, 2019 8:50am 2.85 10e6/uL 4.3-6.1 [facility], [address] [place] [address] Hemoglobin August 10, 2020 5:07am 11.0 g/dL [facility], [address] [place] [address] Hemoglobin July 26, 2020 10:55am 11.3 g/dL [facility], [address] [place] [address] Hemoglobin January 23, 2020 3:25pm 11.7 g/dL [facility], [address] [place] [address] Hemoglobin December 09, 2019 8:50am 9.2 g/dL [facility], [address] [place] [address] Hematocrit August 10, 2020 5:07am 33.8 % 42-52 [facility], [address] [place] [address] Hematocrit July 26, 2020 10:55am 35.8 % 42-52 [facility], [address] [place] [address] Hematocrit January 23, 2020 3:25pm 34.6 % 42-52 [facility], [address] [place] [address] 37293 Hematocrit December 09, 2019 8:50am 26.3 % 42-52 [facility], [address] [place] [address] 85738 Mean Corpuscular Volume July 5:07am 99.[address] [place] [address] LABORATORY, [address] [place] [address] 90610 Mean Corpuscular Volume July 10:55am 102.[address] [place], [place] [address]GH [facility], [address] [place] [address] 87726 Mean Corpuscular Volume January 22 3:25pm 98.[address] [place], [place] [address] [facility], [address] [place] [address] 07479 Mean Corpuscular Volume December 09, 2019 8:50am 92.[address] [place] [address] LABORATORY, [address] [place] [address] 18274 Mean Corpuscular Hemoglobin August 10, 2020 5:07am 32.4 pg 27-31 [facility], [address] [place] [address] 86073 Mean Corpuscular Hemoglobin July 26, 2020 10:55am 32.3 pg 27-31 [facility], [address] [place] [address] 38077 Mean Corpuscular Hemoglobin January 3:25pm 33.2 pg 27-31 [facility], [address] [place] [address] 23008 Mean Corpuscular Hemoglobin December 082019 8:50am 32.3 pg 27-31 [facility], [address] [place] [address] 24064 Mean Corpuscular Hemoglobin Concent August 10, 2020 5:07am 32.5 g/dl 33-37 [facility], [address] [place] [address] 42775 Mean Corpuscular Hemoglobin Concent July 26, 2020 10:55am 31.6 g/dl 3337 [facility], [address] [place] [address] 73289 Mean Corpuscular Hemoglobin Concent January 23, 2020 3:25pm 33.8 g/dl [facility], [address] [place] [address] 45742 Mean Corpuscular Hemoglobin Concent December 09, 2019 8:50am 35.0 g/dl 3337 [facility], [address] [place] [address] Red Cell Distribution Width August 10, 2020 5:07am 14 % 11-15 [facility], [address] [place] [address] Red Cell Distribution Width July 26, 2020 10:55am 17 % 11-15 [facility], [address] [place] [address] Red Cell Distribution Width January 3:25pm 15 % 11-15 [facility], [address] [place] [address] Red Cell Distribution Width December 082019 8:50am 15 % 11-15 [facility], [address] [place] [address] Platelet Count August 10, 2020 5:07am 130 10e3/ul 130-472 [facility], [address] [place] [address] Platelet Count July 26, 2020 10:55am 147 10e3/ul 130-472 [facility], [address] [place] [address] Platelet Count January 23, 2020 3:25pm 127 10e3/ul 130-472 [facility], [address] [place] [address] Platelet Count December 09, 2019 8:50am 123 10e3/ul 130-472 [facility], [address] [place] [address] Mean Platelet Volume August 10, 2020 5:07am 10.9 fl 9.1-13.1 [facility], [address] [place] [address] Mean Platelet Volume July 26, 2020 10:55am 10.6 fl 9.1-13.1 [facility], [address] [place] [address] Mean Platelet Volume January 23, 2020 3:25p m 11.3 fl 9.1-13.1 [facility], [address] [place] [address] Mean Platelet Volume December 08 0 8:50am 10.8 fl 9.1-13.1 [facility], [address] [place] [address] Neutrophils (%) (Auto) July 5:07am 54.7 % [address] [place] [address] LABORATORY, [address] [place] [address] Neutrophils (%) (Auto) July 10:55am 60.8 % [address] [place] [address] LABORATORY, [address] [place] [address] 19934 Neutrophils (%) (Auto) January 22 3:25pm 66.8 % [address] [facility], [address] [place] [address] 29318 Neutrophils (%) (Auto) December 08, 020 8:50am 62.0 % [address] [facility], [address] [place] [address] 11565 Absolute Neutrophil August 10 020 5:07am 2.8 # 1.7-7.6 [facility], [address] [place] [address] 20906 Absolute Neutrophil July 26 020 10:55am 3.1 # 1.7-7.6 [facility], [address] [place] [address] 60038 Absolute Neutrophil January 23, 2020 3:25pm 3.6 # 1.7-7.6 [facility], [address] [place] [address] 42793 Absolute Neutrophil December 09, 2019 8:50a m 3.0 # 1.7-7.6 [facility], [address] [place] [address] 67848 Lymphocytes (%) (Auto) July 5:07am 28.9 % 1446 [facility], [address] [place] [address] 87063 Lymphocytes (%) (Auto) July 10:55am 23.7 % [address] [facility], [address] [place] [address] 16982 Lymphocytes (%) (Auto) January 22 3:25pm 18.8 % 1446 [facility], [address] [place] [address] 97621 Lymphocytes (%) (Auto) December 08, 020 8:50am 23.4 % 1446 [facility], [address] [place] [address] 83707 Lymphocytes # (Auto) August 10, 2020 5:07am 1.5 # 0.6-4.6 [facility], [address] [place] [address] 91942 Lymphocytes # (Auto) July 26, 2020 10:55am 1.2 # 0.6-4.6 [facility], [address] [place] [address] 19486 Lymphocytes # (Auto) January 23, 2020 3:25p m 1.0 # 0.6-4.6 [facility], [address] [place] [address] 04832 Lymphocytes # (Auto) December 08 0 8:50am 1.1 # 0.6-4.6 [facility], [address] [place] [address] 33089 Monocytes (%) (Auto) August 10, 2020 5:07am 10.6 % -12 [facility], [address] [place] [address] 68326 Monocytes (%) (Auto) July 26, 2020 10:55am 10.2 % -12 [facility], [address] [place] [address] 16684 Monocytes (%) (Auto) January 23, 2020 3:25p m 9.9 % 4-12 [facility], [address] [place] [address] 22486 Monocytes (%) (Auto) December 08 0 8:50am 10.9 % 412 [facility], [address] [place] [address] 85654 Monocytes # August 10, 2020 5:07am 0.5 # 0.2-1.2 [facility], [address] [place] [address] 87720 Monocytes # July 26, 2020 10:55am 0.5 # 0.2-1.2 [facility], [address] [place] [address] 91304 Monocytes # January 23, 2020 3:25pm 0.5 # 0.2-1.2 [facility], [address] [place] [address] 13708 Monocytes # December 09, 2019 8:50am 0.5 # 0.2-1.2 [facility], [address] [place] [address] 60993 Eosinophils (%) (Auto) July 5:07am 4.8 % 0-7 [facility], [address] [place] [address] 87542 Eosinophils (%) (Auto) July 10:55am 4.3 % 0-7 [facility], [address] [place] [address] 04776 Eosinophils (%) (Auto) January 22 3:25pm 3.9 % 0-7 [facility], [address] [place] [address] 30040 Eosinophils (%) (Auto) December 08 020 8:50am 2.9 % 0-7 [facility], [address] [place] [address] Absolute Eosinophils (CBC) August 10, 2020 5:07am 0.2 # 0.0-0.5 [facility], [address] [place] [address] Absolute Eosinophils (CBC) July 26, 2020 10:55am 0.2 # 0.0-0.5 [facility], [address] [place] [address] Absolute Eosinophils (CBC) January 3:25pm 0.2 # 0.0-0.5 [facility], [address] [place] [address] Absolute Eosinophils (CBC) November 8:50am 0.1 # 0.0-0.5 [facility], [address] [place] [address] [phone] Basophils (%) (Auto) August 10, 2020 5:07am 0.8 % 0.4-1.3 [facility], [address] [place] [address] Basophils (%) (Auto) July 26, 2020 10:55am 0.8 % 0.4-1.3 [facility], [address] [place] [address] Basophils (%) (Auto) January 23, 2020 3:25p m 0.6 % 0.4-1.3 [facility], [address] [place] [address] Basophils (%) (Auto) December 08 0 8:50am 0.4 % 0.4-1.3 [facility], [address] [place] [address] Absolute Basophils (CBC) August 102019 5:07am 0.0 # 0.0-0.2 [facility], [address] [place] [address] Absolute Basophils (CBC) July 262019 10:55am 0.0 # 0.0-0.2 [facility], [address] [place] [address] Absolute Basophils (CBC) January 23, 2020 3:25pm 0.0 # 0.0-0.2 [facility], [address] [place] [address] Absolute Basophils (CBC) December 09, 2019 8:50am 0.0 # 0.0-0.2 [facility], [address] [place] [address] 88527 Immature Granulocyte % (Auto) [facility] er 2019 5:07am 0.2 % 0-2 [facility], [address] [place] [address] 12801 Immature Granulocyte % (Auto) [facility] 2019 10:55am 0.2 % 0-2 [facility], [address] [place] [address] 03945 Immature Granulocyte % (Auto) January 092019 3:25pm 0.0 % 0-2 [facility], [address] [place] [address] 02573 Immature Granulocyte % (Auto) December 09, 2019 8:50am 0.4 % 0-2 [facility], [address] [place] [address] 76072 Absolute Immature Granulocyte (auto August 10, 2020 5:07am 0.0 # 0-0.1 [facility], [address] [place] [address] 30381 Absolute Immature Granulocyte (auto July 26, 2020 10:55am 0.0 # 0-0.1 [facility], [address] [place] [address] 48658 Absolute Immature Granulocyte (auto January 23, 2020 3:25pm 0.0 # 0-0.1 [facility], [address] [place] [address] 53075 Absolute Immature Granulocyte (auto December 09, 2019 8:50am 0.0 # 0-0.1 [facility], [address] [place] [address] 60501 Add Manual Differential July 5:07am No [facility], [address] [place] [address] 64268 Add Manual Differential July 10:55am No [facility], [address] [place] [address] 86849 Add Manual Differential January 22 3:25pm No [facility], [address] [place] [address] 94060 Add Manual Differential December 09, 2019 8:50am No [facility], [address] [place] [address] 97884 Prothrombin Time August 10, 2020 4:55p m 21.6 SECONDS 9.6-12.3 [facility], [address] [place] [address] 23564 Prothrombin Time July 07, 2020 9:27a m 25.6 SECONDS 9.6-12.3 [facility], [address] [place] [address] Prothrombin Time June 30, 2020 11:25am 39.2 SECONDS 9.6-12.3 [facility], [address] [place] [address] Prothrombin Time June 23, 2020 9:40a m 34.0 SECONDS 9.6-12.3 [facility], [address] [place] [address] 38573 Prothrombin Time May 23, 2020 8:56am 25.7 SECONDS 9.6-12.3 [facility], [address] [place] [address] Prothrombin Time May 12, 2020 6:26am 32.4 SECONDS 9.6-12.3 [facility], [address] [place] [address] 89340 Prothrombin Time March 31, 2020 6:17am 25.2 SECONDS 9.6-12.3 [facility], [address] [place] [address] 14788 Prothrombin Time March 08, 2020 9:37am 22.5 SECONDS 9.6-12.3 [facility], [address] [place] [address] Prothrombin Time February 28, 2020 6:27am 29.5 SECONDS 9.6-12.3 [facility], [address] [place] [address] 54852 Prothrombin Time February 18, 2020 11:47am 16.9 SECONDS 9.6-12.3 [facility], [address] [place] [address] 66971 Prothrombin Time February 10, 2020 9:13am 18.7 SECONDS 9.6-12.3 [facility], [address] [place] [address] 01673 Prothrombin Time January 23, 2020 3:25pm 24.4 SECONDS 9.6-12.3 [facility], [address] [place] [address] 47475 Prothrombin Time January 21, 2020 6:17am 22.3 SECONDS 9.6-12.3 [facility], [address] [place] [address] 75896 Prothrombin Time January 14, 2020 6:12am 37.7 SECONDS 9.6-12.3 [facility], [address] [place] [address] 88910 Prothrombin Time January 07, 2020 8:35am 26.5 SECONDS 9.6-12.3 [facility], [address] [place] [address] 58538 Prothrombin Time January 06, 2020 8:35am 40.3 SECONDS 9.6-12.3 [facility], [address] [place] [address] 20612 Prothrombin Time December 30, 2019 8:30am 31.9 SECONDS 9.6-12.3 [facility], [address] [place] [address] Prothrombin Time December 27, 2019 8:40am 26.4 SECONDS 9.6-12.3 [facility], [address] [place] [address] Prothrombin Time December 24, 2019 8:35am 25.7 SECONDS 9.6-12.3 [facility], [address] [place] [address] Prothrombin Time December 23, 2019 8:18am 41.9 SECONDS 9.6-12.3 [facility], [address] [place] [address] 05759 Prothrombin Time December 22, 2019 7:56am 78.2 SECONDS 9.6-12.3 [facility], [address] [place] [address] 09794 Prothrombin Time December 15, 2019 8:17am 28.9 SECONDS 9.6-12.3 [facility], [address] [place] [address] 16391 Prothrombin Time December 13, 2019 7:19am 17.0 SECONDS 9.6-12.3 [facility], [address] [place] [address] 67218 Prothrombin Time December 06, 2019 8:34am 13.2 SECONDS 9.6-12.3 [facility], [address] [place] [address] 50530 Prothrombin Time December 01, 2019 8:30am 39.8 SECONDS 9.6-12.3 [facility], [address] [place] [address] 51297 Prothrombin Time November 26, 2019 8:55am 19.1 SECONDS 9.6-12.3 [facility], [address] [place] [address] 62035 Prothrombin Time November 23, 2019 6:12am 16.2 SECONDS 9.6-12.3 [facility], [address] [place] [address] 93965 Prothrombin Time November 09, 2019 6:02am 18.2 SECONDS 9.6-12.3 [facility], [address] [place] [address] 00150 Prothrombin Time October 19, 2019 6:15am 19.8 SECONDS 9.6-12.3 [facility], [address] [place] [address] 77280 Prothrombin Time October 12, 2019 7:21am 16.7 SECONDS 9.6-12.3 [facility], [address] [place] [address] 59816 Prothrombin Time September 14, 2019 7:20am 21.6 SECONDS 9.6-12.3 [facility], [address] [place] [address] 84319 Prothrombin Time September 02, 2019 11:25a m 23.9 SECONDS 9.6-12.3 [facility], [address] [place] [address] 43722 Prothrombin Time August 31, 2019 7:00am 29.2 SECONDS 9.6-12.3 [facility], [address] [place] [address] 97784 INR International Normalized Ratio D ec2019 4:55pm 2.1 0.9-1.1 THE INR IS OPERATIONALLY DEFINED FOR PIPPA SH PLASMA FROMPATIENTS STABILIZED ON ORAL ANTICOAGULANTS. ROUTINE ANTICOAGULANT THERAPY 2.0-3.0RECURRENT SYSTEMIC EMBOLISM/HEART VALVE REPLACEMENT 2.5-3.5 [facility], [address] [place] [address] 55986 INR International Normalized Ratio N ovember 2019 9:27am 2.5 0.9-1.1 THE INR IS OPERATIONALLY DEFINED FOR PIPPA SH PLASMA FROMPATIENTS STABILIZED ON ORAL ANTICOAGULANTS. ROUTINE ANTICOAGULANT THERAPY 2.0-3.0RECURRENT SYSTEMIC EMBOLISM/HEART VALVE REPLACEMENT 2.5-3.5 [facility], [address] [place] [address] 44206 INR International Normalized Ratio N ov2019 11:25am 3.9 0.9-1.1 THE INR IS OPERATIONALLY DEFINED FOR PIPPA SH PLASMA FROMPATIENTS STABILIZED ON ORAL ANTICOAGULANTS. ROUTINE ANTICOAGULANT THERAPY 2.0-3.0RECURRENT SYSTEMIC EMBOLISM/HEART VALVE REPLACEMENT 2.5-3.5 [facility], [address] [place] [address] 35125 INR International Normalized Ratio N ovember 2019 9:40am 3.4 0.9-1.1 THE INR IS OPERATIONALLY DEFINED FOR PIPPA SH PLASMA FROMPATIENTS STABILIZED ON ORAL ANTICOAGULANTS. ROUTINE ANTICOAGULANT THERAPY 2.0-3.0RECURRENT SYSTEMIC EMBOLISM/HEART VALVE REPLACEMENT 2.5-3.5 [facility], [address] [place] [address] 79790 INR International Normalized Ratio O ctober 2019 8:56am 2.5 0.9-1.1 THE INR IS OPERATIONALLY DEFINED FOR PIPPA SH PLASMA FROMPATIENTS STABILIZED ON ORAL ANTICOAGULANTS. ROUTINE ANTICOAGULANT THERAPY 2.0-3.0RECURRENT SYSTEMIC EMBOLISM/HEART VALVE REPLACEMENT 2.5-3.5 [facility], [address] [place] [address] INR International Normalized Ratio O ctober 2019 6:26am 3.2 0.9-1.1 THE INR IS OPERATIONALLY DEFINED FOR PIPPA SH PLASMA FROMPATIENTS STABILIZED ON ORAL ANTICOAGULANTS. ROUTINE ANTICOAGULANT THERAPY 2.0-3.0RECURRENT SYSTEMIC EMBOLISM/HEART VALVE REPLACEMENT 2.5-3.5 [facility], [address] [place] [address] INR International Normalized Ratio A ugust 2019 6:17am 2.5 0.9-1.1 THE INR IS OPERATIONALLY DEFINED FOR PIPPA SH PLASMA FROMPATIENTS STABILIZED ON ORAL ANTICOAGULANTS. ROUTINE ANTICOAGULANT THERAPY 2.0-3.0RECURRENT SYSTEMIC EMBOLISM/HEART VALVE REPLACEMENT 2.5-3.5 [facility], [address] [place] [address] INR International Normalized Ratio J gabriella 2019 9:37am 2.2 0.9-1.1 THE INR IS OPERATIONALLY DEFINED FOR PIPPA SH PLASMA FROMPATIENTS STABILIZED ON ORAL ANTICOAGULANTS. ROUTINE ANTICOAGULANT THERAPY 2.0-3.0RECURRENT SYSTEMIC EMBOLISM/HEART VALVE REPLACEMENT 2.5-3.5 [facility], [address] [place] [address] INR International Normalized Ratio J gabriella 2019 6:27am 2.9 0.9-1.1 THE INR IS OPERATIONALLY DEFINED FOR PIPPA SH PLASMA FROMPATIENTS STABILIZED ON ORAL ANTICOAGULANTS. ROUTINE ANTICOAGULANT THERAPY 2.0-3.0RECURRENT SYSTEMIC EMBOLISM/HEART VALVE REPLACEMENT 2.5-3.5 [facility], [address] [place] [address] INR International Normalized Ratio J gabriella 2019 11:47am 1.6 0.9-1.1 THE INR IS OPERATIONALLY DEFINED FOR PIPPA SH PLASMA FROMPATIENTS STABILIZED ON ORAL ANTICOAGULANTS. ROUTINE ANTICOAGULANT THERAPY 2.0-3.0RECURRENT SYSTEMIC EMBOLISM/HEART VALVE REPLACEMENT 2.5-3.5 [facility], [address] [place] [address] [id number] INR International Normalized Ratio J gabriella 2019 9:13am 1.8 0.9-1.1 THE INR IS OPERATIONALLY DEFINED FOR FRESH PLASMA FROMPATIENTS STABILIZED ON ORAL ANTICOAGULANTS. ROUTINE ANTICOAGULANT THERAPY 2.0-3.0RECURRENT SYSTEMIC EMBOLISM/HEART VALVE REPLACEMENT 2.5-3.5 [facility], [address] [place] [address] [id number] INR International Normalized Ratio J une 2019 3:25pm 2.5 0.9-1.1 THE INR IS OPERATIONALLY DEFINED FOR PIPPA SH PLASMA FROMPATIENTS STABILIZED ON ORAL ANTICOAGULANTS. ROUTINE ANTICOAGULANT THERAPY 2.0-3.0RECURRENT SYSTEMIC EMBOLISM/HEART VALVE REPLACEMENT 2.5-3.5 [facility], [address] [place] [address] INR International Normalized Ratio J une 2019 6:17am 2.3 0.9-1.1 THE INR IS OPERATIONALLY DEFINED FOR PIPPA SH PLASMA FROMPATIENTS STABILIZED ON ORAL ANTICOAGULANTS. ROUTINE ANTICOAGULANT THERAPY 2.0-3.0RECURRENT SYSTEMIC EMBOLISM/HEART VALVE REPLACEMENT 2.5-3.5 [facility], [address] [place] [address] INR International Normalized Ratio J une 2019 6:12am 4.0 0.9-1.1 THE INR IS OPERATIONALLY DEFINED FOR FRESH PLASMA FROMPATIENTS STABILIZED ON ORAL ANTICOAGULANTS. ROUTINE ANTICOAGULANT THERAPY 2.0-3.0RECURRENT SYSTEMIC EMBOLISM/HEART VALVE REPLACEMENT 2.5-3.5 [facility], [address] [place] [id number] INR International Normalized Ratio M ay 2019 8:35am 2.8 0.9-1.1 THE INR IS OPERATIONALLY DEFINED FOR FRESH PLASMA FROMPATIENTS STABILIZED ON ORAL ANTICOAGULANTS. ROUTINE ANTICOAGULANT THERAPY 2.0-3.0RECURRENT SYSTEMIC EMBOLISM/HEART VALVE REPLACEMENT 2.5-3.5 [facility], [address] [place] [id number] INR International Normalized Ratio M ay 2019 8:35am 4.3 0.9-1.1 THE INR IS OPERATIONALLY DEFINED FOR FRESH PLASMA FROMPATIENTS STABILIZED ON ORAL ANTICOAGULANTS. ROUTINE ANTICOAGULANT THERAPY 2.0-3.0RECURRENT SYSTEMIC EMBOLISM/HEART VALVE REPLACEMENT 2.5-3.5 [facility], [address] [place] [id number] INR International Normalized Ratio M ay 2019 8:30am 3.4 0.9-1.1 THE INR IS OPERATIONALLY DEFINED FOR FRESH PLASMA FROMPATIENTS STABILIZED ON ORAL ANTICOAGULANTS. ROUTINE ANTICOAGULANT THERAPY 2.0-3.0RECURRENT SYSTEMIC EMBOLISM/HEART VALVE REPLACEMENT 2.5-3.5 [facility], [address] [place] [id number] INR International Normalized Ratio M ay 2019 8:40am 2.7 0.9-1.1 THE INR IS OPERATIONALLY DEFINED FOR FRESH PLASMA FROMPATIENTS STABILIZED ON ORAL ANTICOAGULANTS. ROUTINE ANTICOAGULANT THERAPY 2.0-3.0RECURRENT SYSTEMIC EMBOLISM/HEART VALVE REPLACEMENT 2.5-3.5 [facility], [address] [place] [id number] INR International Normalized Ratio M ay 2019 8:35am 2.7 0.9-1.1 THE INR IS OPERATIONALLY DEFINED FOR FRESH PLASMA FROMPATIENTS STABILIZED ON ORAL ANTICOAGULANTS. ROUTINE ANTICOAGULANT THERAPY 2.0-3.0RECURRENT SYSTEMIC EMBOLISM/HEART VALVE REPLACEMENT 2.5-3.5 [facility], [address] [place] [id number] INR International Normalized Ratio M ay 2019 8:18am 4.5 0.9-1.1 THE INR IS OPERATIONALLY DEFINED FOR FRESH PLASMA FROMPATIENTS STABILIZED ON ORAL ANTICOAGULANTS. ROUTINE ANTICOAGULANT THERAPY 2.0-3.0RECURRENT SYSTEMIC EMBOLISM/HEART VALVE REPLACEMENT 2.5-3.5 [facility], [address] [place] [id number] INR International Normalized Ratio M ay 2019 7:56am 8.8 0.9-1.1 Called to DRAKE ROCHE AT [facility] OFFICE @ 0953 by Iraj Garcia. Results read back. Repeated by: Iraj Garcia 12/22/19 0940.Result Confirmation:8.8THE INR IS OPERATIONALLY DEFINED FOR FRESH PLASMA FROMPATIENTS STABILIZED ON ORAL ANTICOAGULANTS. ROUTINE ANTICOAGULANT THERAPY 2.0-3.0RECURRENT SYSTEMIC EMBOLISM/HEART VALVE REPLACEMENT 2.5-3.5 [facility], [address] [place] [address] [id number] INR International Normalized Ratio M ay 2019 8:17am 3.0 0.9-1.1 THE INR IS OPERATIONALLY DEFINED FOR FRESH PLASMA FROMPATIENTS STABILIZED ON ORAL ANTICOAGULANTS. ROUTINE ANTICOAGULANT THERAPY 2.0-3.0RECURRENT SYSTEMIC EMBOLISM/HEART VALVE REPLACEMENT 2.5-3.5 [facility], [address] [place] [address] [id number] INR International Normalized Ratio M ay 2019 7:19am 1.7 0.9-1.1 THE INR IS OPERATIONALLY DEFINED FOR FRESH PLASMA FROMPATIENTS STABILIZED ON ORAL ANTICOAGULANTS. ROUTINE ANTICOAGULANT THERAPY 2.0-3.0RECURRENT SYSTEMIC EMBOLISM/HEART VALVE REPLACEMENT 2.5-3.5 [facility], [address] [place] [address] INR International Normalized Ratio A pril 2019 8:34am 1.3 0.9-1.1 THE INR IS OPERATIONALLY DEFINED FOR PIPPA SH PLASMA FROMPATIENTS STABILIZED ON ORAL ANTICOAGULANTS. ROUTINE ANTICOAGULANT THERAPY 2.0-3.0RECURRENT SYSTEMIC EMBOLISM/HEART VALVE REPLACEMENT 2.5-3.5 [facility], [address] [place] [address] INR International Normalized Ratio A pril 2019 8:30am 4.3 0.9-1.1 THE INR IS OPERATIONALLY DEFINED FOR PIPPA SH PLASMA FROMPATIENTS STABILIZED ON ORAL ANTICOAGULANTS. ROUTINE ANTICOAGULANT THERAPY 2.0-3.0RECURRENT SYSTEMIC EMBOLISM/HEART VALVE REPLACEMENT 2.5-3.5 [facility], [address] [place] [address] INR International Normalized Ratio A pril 2019 8:55am 1.9 0.9-1.1 THE INR IS OPERATIONALLY DEFINED FOR PIPPA SH PLASMA FROMPATIENTS STABILIZED ON ORAL ANTICOAGULANTS. ROUTINE ANTICOAGULANT THERAPY 2.0-3.0RECURRENT SYSTEMIC EMBOLISM/HEART VALVE REPLACEMENT 2.5-3.5 [facility], [address] [place] [address] INR International Normalized Ratio A pril 2019 6:12am 1.6 0.9-1.1 THE INR IS OPERATIONALLY DEFINED FOR PIPPA SH PLASMA FROMPATIENTS STABILIZED ON ORAL ANTICOAGULANTS. ROUTINE ANTICOAGULANT THERAPY 2.0-3.0RECURRENT SYSTEMIC EMBOLISM/HEART VALVE REPLACEMENT 2.5-3.5 [facility], [address] [place] [address] INR International Normalized Ratio M arch 2019 6:02am 1.8 0.9-1.1 THE INR IS OPERATIONALLY DEFINED FOR PIPPA SH PLASMA FROMPATIENTS STABILIZED ON ORAL ANTICOAGULANTS. ROUTINE ANTICOAGULANT THERAPY 2.0-3.0RECURRENT SYSTEMIC EMBOLISM/HEART VALVE REPLACEMENT 2.5-3.5 [facility], [address] [place] [address] INR International Normalized Ratio M arch 2019 6:15am 2.0 0.9-1.1 THE INR IS OPERATIONALLY DEFINED FOR PIPPA SH PLASMA FROMPATIENTS STABILIZED ON ORAL ANTICOAGULANTS. ROUTINE ANTICOAGULANT THERAPY 2.0-3.0RECURRENT SYSTEMIC EMBOLISM/HEART VALVE REPLACEMENT 2.5-3.5 [facility], [address] [place] [address] [id number] INR International Normalized Ratio M arch 2019 7:21am 1.7 0.9-1.1 THE INR IS OPERATIONALLY DEFINED FOR PIPPA SH PLASMA FROMPATIENTS STABILIZED ON ORAL ANTICOAGULANTS. ROUTINE ANTICOAGULANT THERAPY 2.0-3.0RECURRENT SYSTEMIC EMBOLISM/HEART VALVE REPLACEMENT 2.5-3.5 [facility], [address] [place] [address] 28298 INR International Normalized Ratio F ebruary 2019 7:20am 2.20 0.9-1.1 THE INR IS OPERATIONALLY DEFINED FOR PIPPA SH PLASMA FROMPATIENTS STABILIZED ON ORAL ANTICOAGULANTS. ROUTINE ANTICOAGULANT THERAPY 2.0-3.0RECURRENT SYSTEMIC EMBOLISM/HEART VALVE REPLACEMENT 2.5-3.5 [facility], [address] [place] [address] [id number] INR International Normalized Ratio J anuary 2019 11:25am 2.5 0.9-1.1 THE INR IS OPERATIONALLY DEFINED FOR PIPPA SH PLASMA FROMPATIENTS STABILIZED ON ORAL ANTICOAGULANTS. ROUTINE ANTICOAGULANT THERAPY 2.0-3.0RECURRENT SYSTEMIC EMBOLISM/HEART VALVE REPLACEMENT 2.5-3.5 [facility], [address] [place] [address] 59851 INR International Normalized Ratio J anuary 2019 7:00am 3.1 0.9-1.1 THE INR IS OPERATIONALLY DEFINED FOR PIPPA SH PLASMA FROMPATIENTS STABILIZED ON ORAL ANTICOAGULANTS. ROUTINE ANTICOAGULANT THERAPY 2.0-3.0RECURRENT SYSTEMIC EMBOLISM/HEART VALVE REPLACEMENT 2.5-3.5 [facility], [address] [place] [address] 46295 Blood Urea Nitrogen August 10, 020 5:07am 70 mg/dL 05-03 [facility], [address] [place] [address] 72063 Blood Urea Nitrogen January 23, 2020 3:25pm 73 mg/dL 05-03 [facility], [address] [place] [address] 12095 Blood Urea Nitrogen December 09, 2019 8:50a m 95 mg/dL 05-03 Called to KENNETH Nava @ 1024 by Maggie Clark. Results read back. Repeated by: Maggie Clark 12/09/19 1024.Result Confirmation: 98 mg/dL [facility], [address] [place] [address] 51092 Sodium Level August 10, 2020 5:07am 142 mmol/L 132-146 [facility], [address] [place] [address] 12576 Sodium Level January 23, 2020 3:25pm 139 mmol/L 132-146 [facility], [address] [place] [address] 35129 Sodium Level December 09, 2019 8:50am 139 mmol/L 132-146 [facility], [address] [place] [address] 20106 Potassium Level August 10, 2020 5:07am 4.1 mmol/L 3.5-5.5 [facility], [address] [place] [address] 91605 Potassium Level January 23, 2020 3:25pm 4.2 mmol/L 3.5-5.5 [facility], [address] [place] [address] 26649 Potassium Level December 09, 2019 8:50am 4.3 mmol/L 3.5-5.5 [facility], [address] [place] [address] 41386 Chloride Level August 10, 2020 5:07am 112 mmol/l 99-109 [facility], [address] [place] [address] 78053 Chloride Level January 23, 2020 3:25pm 109 mmol/l 99-109 [facility], [address] [place] [address] 46446 Chloride Level December 09, 2019 8:50am 113 mmol/l 99-109 [facility], [address] [place] [address] 44750 Carbon Dioxide Level August 10, 2020 5:07am 22 mmol/l -31 [facility], [address] [place] [address] Carbon Dioxide Level January 23, 2020 3:25p m 19 mmol/l -31 [facility], [address] [place] [address] Carbon Dioxide Level December 08 0 8:50am 16 mmol/l 20-31 [facility], [address] [place] [address] 13823 Anion Gap August 10, 2020 5:07am 12 mmol/l 8-16 [facility], [address] [place] [address] 37419 Anion Gap January 23, 2020 3:25pm 15 mmol/l 8-16 [facility], [address] [place] [address] Anion Gap December 09, 2019 8:50am 14 mmol/l 8-16 [facility], [address] [place] [address] Glucose Level August 10, 2020 5:07am 98 mg/dL 74-106 [facility], [address] [place] [address] Glucose Level January 23, 2020 3:25pm 177 mg/dL -106 [facility], [address] [place] [address] Glucose Level December 09, 2019 8:50am 134 mg/dL 74-106 [facility], [address] [place] [address] Bedside Glucose August 10, 2020 5:04pm 125 70-110 WOOD PCX (POC GLUCOSE) Creatinine August 10, 2020 5:07am 3.0 mg/dL 0.5-1.1 [facility], [address] [place] [address] Creatinine January 23, 2020 3:25pm 3.0 mg/dL 0.5-1.1 [facility], [address] [place] [address] Creatinine December 09, 2019 8:50am 4.0 mg/dL 0.5-1.1 [facility], [address] [place] [address] Glomerular Filtration Rate Calc Dece mber 2019 5:07am 20 ml/min ABOVE 60 [facility], [address] [place] [address] Glomerular Filtration Rate Calc January 23, 2020 3:25pm 20 ml/min ABOVE 60 [facility], [address] [place] [address] Glomerular Filtration Rate Calc Apri l 2019 8:50am 15 ml/min ABOVE 60 [facility], [address] [place] [address] Alanine Aminotransferase (ALT/SGPT) August 10, 2020 5:07am 13 U/L 10-49 [facility], [address] [place] [address] Alanine Aminotransferase (ALT/SGPT) January 23, 2020 3:25pm 17 U/L 10-49 [facility], [address] [place] [address] Alanine Aminotransferase (ALT/SGPT) December 09, 2019 8:50am 20 U/L 10-49 [facility], [address] [place] [address] Aspartate Amino Transf (AST/SGOT) De cember 2019 5:07am 18 U/L 0-33 [facility], [address] [place] [address] 85532 Aspartate Amino Transf (AST/SGOT) Ju ne 2019 3:25pm 16 U/L 0-33 [facility], [address] [place] [address] 01352 Aspartate Amino Transf (AST/SGOT) Ap ril 2019 8:50am 16 U/L 0-33 [facility], [address] [place] [address] Alkaline Phosphatase August 10, 2020 5:07am 121 U/L 45-129 [facility], [address] [place] [address] Alkaline Phosphatase January 23, 2020 3:25p m 119 U/L 45-129 [facility], [address] [place] [address] Alkaline Phosphatase December 08 0 8:50am 112 U/L 45-129 [facility], [address] [place] [address] 58233 Calcium Level August 10, 2020 5:07am 10.1 mg/dL 8.5-10.1 [facility], [address] [place] [address] Calcium Level January 23, 2020 3:25pm 9.8 mg/dL 8.5-10.1 [facility], [address] [place] [address] Calcium Level December 09, 2019 8:50am 9.8 mg/dL 8.5-10.1 [facility], [address] [place] [address] 18780 Total Bilirubin August 10, 2020 5:07am 0.2 mg/dL 0.3-1.2 [facility], [address] [place] [address] Total Bilirubin January 23, 2020 3:25pm 0.3 mg/dL 0.3-1.2 [facility], [address] [place] [address] Total Bilirubin December 09, 2019 8:50am 0.3 mg/dL 0.3-1.2 [facility], [address] [place] [address] 46300 Albumin August 10, 2020 5:07am 3.5 g/dL 3.2-4.8 [facility], [address] [place] [address] Albumin January 23, 2020 3:25pm 3.7 g/dL 3.2-4.8 [facility], [address] [place] [address] 14712 Albumin December 09, 2019 8:50am 3.9 g/dL 3.2-4.8 [facility], [address] [place] [address] Serum Total Protein August 10 5:07am 7.2 g/dL 5.7-8.2 [facility], [address] [place] [address] Serum Total Protein January 23, 2020 3:25pm 7.5 g/dL 5.7-8.2 [facility], [address] [place] [address] Serum Total Protein December 09, 2019 8:50a m 7.5 g/dL 5.7-8.2 [facility], [address] [place] [address] Iron Level December 09, 2019 8:51am 129 ug/dL 65-175 Iron values ma y be falsely elevated in serum samples frompatients treated with anticoagulants (e.g., hemodialysispatients) [facility], [address] [place] [address] Iron Saturation December 09, 2019 8:51am 38 20-55 [facility], [address] [place] [address] Total Iron Binding Capacity December 082019 8:51am 341 ug/dl 250-450 [facility], [address] [place] [address] Ferritin December 09, 2019 8:51am 432 ng/mL 22-322 [facility], [address] [place] [address] Troponin I August 10, 2020 5:07am Less than 0.015 ng/mL 0.00-0.09 Less than 0.09 NG/ML Negative0.10 - 0.77 NG/ML High Risk0.78 NG/ML or Greater Positive The WHO defined the cutoff (definition for diagnosis of [place])for this method as 0.78 ng/ml. [facility], [address] [place] [address] 23354 Troponin I December 09, 2019 8:50am Less than 0.015 ng/mL 0.00-0.09 Less than 0.09 NG/ML Negative0.10 - 0.77 NG/ML High Risk0.78 NG/ML or Greater Positive The WHO defined the cutoff (definition for diagnosis of [place])for this method as 0.78 ng/ml. [facility], [address] [place] [address] Thyroid Stimulating Hormone (TSH) Rojas 2019 3:50pm 2.99 uIU/mL 0.35-5.50 [facility], [address] [place] [address] Testosterone Level November 09, 2019 6:02am 5 ng/dL Adult male reference interval is based on a population ofhealthy nonobese males (BMI <30) between 19 and 39 yearsold. Warren et.al. EM 2017,102;2309-9164. PMID:[id number]. [facility] , [address] [facility] [address] Free Testosterone November 09, 2019 6:02am 3.8 pg/mL Performed at: [facility] [id number] Director: Cecy Babin MD, Phone: [phone] [facility] , [address] [place] [phone] Lyme Disease Ab Tot Immunoglobulins March 08, 2020 9:37am Less than 0.91 ISR Negative <0.91 Equivocal 0.91 - 1.09 Positive >1.09 [facility] , [address] [facility] [address] Lyme Disease IgM Ab Quantitation Feb 9:37am Less than 0.80 index Negative <0.80 Equivocal 0.80 - 1.19 Positive >1.19 IgM levels may peak at 3-6 weeks post infection, then gradually decline.Performed at: [facility] [id number] Director: Cecy Babin MD, Phone: [phone] [facility] , [address] [facility] [phone] Pro-B-Type Natriuretic Peptide December 09, 2019 8:50am 1806.00 pg/mL 0.00-450 [facility], [address] [place] [address]4737 Microbiology Results Procedure Source Result Collection Date/Time Result Date/Time Result Comment Performing Site Respiratory Panel (PCR) Nasopharyngeal No Organisms Detected August 09, 2020 3:23pm August 09, 2020 4:32pm [facility], [address] [place] [address]9743 Diagnostic Imaging Reports Report Dictated Date/Time Dictated By Status Radiology Report October 20, 2019 11:28am Young Lira MD completed [facility] [id number] [place] [address] [phone] NAME SEX PT STATUS ACCOUNT NUMBER BRITTON GOMEZ REG REF [id number] ORDERING PHYSICIAN LOCATION MEDICAL RECORD NO. Tono Guardado RAD [id number] ATTENDING PHYSICIAN DATE OF DATE OF EXAM/TIME Tono Guardado DO 1940 10/20/191101 TYPE / EXAM Xray Cervical spine complete REASON FOR EXAM neck pain COMPARISON: None FINDINGS: There is straightening of normal cervical lordosis. Mild anterolisthesis of C2 is seen. There is no prevertebral soft tissue swelling. No vertebral compression deformity is seen. However, moderate, multilevel degenerative changes are seen, and the changes are most significant at C5-6 and C6-7. Clinical correlation advised for possibility of radicular signs. No lytic or blastic osseous lesion is seen. IMPRESSION: 1. No vertebral compression deformity. 2. Mild anterolisthesis of C2. No prevertebral soft tissue swelling. 3. Moderate, multilevel degenerative changes, most significant at C5-6 and C6- 7. Clinical correlation advised. 4. No lytic or blastic osseous lesion. Reported By Young Lira MD on 10/20/19 1128 Signed By Young Lira MD on 10/20/19 1131 Date Time CC: Tono Guardado DO; Young Lira MD Techn: EBEBR Trans Dt/Tm: Trans by: DT Prt Dt/Tm: 7225-9303: Total DLP = 0.00 mGy-cm Fluoroscopy Time (in secs): Radiology Report December 09, 2019 10:25am Young Lira MD completed [facility] [address] [place] [address] [phone] NAME SEX PT STATUS ACCOUNT NUMBER BR[facility]TON GOMEZ REG ER [id number] ORDERING PHYSICIAN LOCATION MEDICAL RECORD NO. Ko Ramos MD ER [id number] ATTENDING PHYSICIAN DATE OF DATE OF EXAM/TIME Tara Osborne 1940 12/09/191018 TYPE / EXAM Xray Chest One View REASON FOR EXAM cough/sob COMPARISON: August 13, 2019 FINDINGS: The patient is remotely post median sternotomy. 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 Precordial leads overlie the chest. Subsegmental atelectasis is a stable finding in the left mid to lower lung. No focal pulmonary consolidation or pleural effusion is seen on either side. Mild pulmonary vascular congestion is suggested. Clinical correlation advised. The cardiac and mediastinal silhouettes are within normal limits. Degenerative changes are seen at both acromioclavicular joints. A bone island is seen in the left head. No acute osseous abnormality is seen. IMPRESSION: 1. Plate atelectasis in the left mid to lower lung, a stable finding compared to the previous study. 2. No acute cardiopulmonary disease. Reported By Young Lira MD on 12/09/19 1025 Signed By Young Lira MD on 12/09/19 1027 Date Time CC: Young Lira MD; Tara SEAM TAPER MACHINE Dylon Techn: FROSA Trans Dt/Tm: Trans by: DT Prt Dt/Tm: 9703-4149: Total DLP = 0.00 mGy-cm Fluoroscopy Time (in secs): Radiology Report January 23, 2020 5:08pm Floyd Cain MD completed [facility] [id number] [place] [address] [phone] NAME SEX PT STATUS ACCOUNT NUMBER BR[facility]TON GOMEZ REG ER [id number] ORDERING PHYSICIAN LOCATION MEDICAL RECORD NO. Kyaw Richardson ER [id number] ATTENDING PHYSICIAN DATE OF DATE OF EXAM/TIME Tara Osborne HECTOR 1940 01/23/201646 TYPE / EXAM CT Head without contrast REASON FOR EXAM head injury Clinical History/Indication for Exam: head injury CT brain without contrast 01/23/2020 Clinical information: Head injury Technique: Routine noncontrast CT brain. Comparison: None. Findings: There is no evidence of acute intracranial hemorrhage. There is moderate low attenuation in the periventricular and subcortical white matter, nonspecific but likely indicating sequelae of remote small vessel ischemia. There is no clear evidence of an acute intracranial infarct in this setting. MR if needed. There is no midline shift, intracranial mass, or mass-effect. There is no extra-axial fluid collection or hydrocephalus. Visualized paranasal sinuses and mastoids are clear. There is intracranial carotid atherosclerosis. Within the posterior aspect the left lobe there is a 3 mm radiodensity, however it is unclear if this is a foreign body or dense calcification. This potentially could preclude an MRI if there is a radiodense foreign body. Both lenses of the resected. Impression: 1. No acute hemorrhage. 2. 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 MR if needed. 3. Radiodense foreign body versus dense calcification in the left globe. If this is a foreign body it would preclude an MRI. Automatic exposure control was used as a dose lowering technique. Radiation Dose: CTDI is 40.38 mGy. DLP is 712 mGy-cm. REPORT SIGNATURE ON FILE 01/23/2020 (17:08 Eastern Time ) Signed by: Floyd Cain M.D. Reported By Floyd Cain MD on 01/23/201707 Signed By Floyd Cain MD on 01/23/201707 Date Time CC: Floyd Cain MD; Tara VÁZQUEZ Dylon Techn: ALBERTO Trans Dt/Tm: Trans by: DT Prt Dt/Tm: : Total DLP = 710.00 mGy-cm : Total Radiation Dose = 2.2010 mSv Lifetime Dose: 8.6060 mSv Radiology Report January 23, 2020 5:41pm Floyd Cain MD completed [facility] [address] [place] [address] [phone] NAME SEX PT STATUS ACCOUNT NUMBER BRITTON GOMEZ [facility] ER [id number] ORDERING PHYSICIAN LOCATION MEDICAL RECORD NO. Kyaw Richardson ER [id number] ATTENDING PHYSICIAN DATE OF DATE OF EXAM/TIME Tara Osborne NP 1940 01/23/20 / 8 TYPE / EXAM Xray Chest One View REASON FOR EXAM SOB Clinical History/Indication for Exam: SOB Chest one view portable 01/23/2020 Clinical information: Short of breath Comparison: 12/09/2019 Technique: PA or AP view. Findings: There are changes of median sternotomy. The heart size is upper normal. There is mild aortic atherosclerosis, stable.. Pulmonary vascularity is normal. There is increase in the interstitial markings, stable.. Lungs are clear of interval infiltrate, effusion, or pneumothorax. There are bilateral chronic linear atelectatic changes versus chronic fibrotic scarring change, stable. There is ossific or calcific density along the right shoulder joint probably related to calcific tendinopathy or chondrocalcinosis. Impression: 1. Stable. No infiltrates. REPORT SIGNATURE ON FILE 01/23/2020 (17:41 Eastern Time ) Signed by: Floyd Cain M.D. Reported By Floyd Cain MD on 01/23/201740 Signed By Floyd Cain MD on 01/23/201740 Date Time CC: Floyd Cain MD; Tara SEAM TAPER MACHINE Dylon Techn: FROSA Trans Dt/Tm: Trans by: DT Prt Dt/Tm: [id number]: Total DLP = 0.00 mGy-cm Fluoroscopy Time (in secs): Radiology Report August 09, 2020 5:14p m Krystyna Weir MD completed [place] [address] [place] [address] [phone] NAME SEX PT STATUS ACCOUNT NUMBER BRITTON GOMEZ [facility] ER [id number] ORDERING PHYSICIAN LOCATION MEDICAL RECORD NO. Carlos Galvin MD [id number] ATTENDING PHYSICIAN DATE OF DATE OF EXAM/TIME Tono Guardado DO 1940 08/09/20 / 1539 TYPE / EXAM Xray Chest One View REASON FOR EXAM chest pain Clinical History/Indication for Exam: chest pain RADIOGRAPH OF THE CHEST 1 VIEW INDICATION: chest pain COMPARISON: Previous chest x-ray images and report 01/23/2020. FINDINGS: Lungs: Unchanged bilateral chronic linear scarring lungs with no acute infiltrate. Pleural space: Unremarkable. No pneumothorax. Heart: Unchanged cardiopericardial silhouette. New cardiac monitoring. Mediastinum: Unremarkable. Bones/joints: Unchanged median sternotomy. Unchanged severe hypertrophic degenerative changes acromioclavicular joints with marginal spurring. Unchanged calcific tendinitis right shoulder. Upper abdomen: Unchanged surgical clips left upper quadrant. IMPRESSION: 1. Unchanged median sternotomy. 2. Unchanged cardiopericardial silhouette. 3. New cardiac monitoring. 4. Unchanged bilateral chronic linear scarring lungs with no acute infiltrate. 5. Unchanged surgical clips left upper quadrant. 6. Unchanged severe hypertrophic degenerative changes acromioclavicular joints with marginal spurring. 7. Unchanged calcific tendinitis right shoulder. REPORT SIGNATURE ON FILE 08/09/2020 (17:14 Eastern Time ) Signed by: Krystyna Weir M.D., [facility] Reported By Krystyna Weir MD on 08/09/201713 Signed By Krystyna Weir MD on 08/09/201713 Date Time CC: Tono Guardado DO; Krystyna Weir MD Techn: EBEBR Trans Dt/Tm: Trans by: DT Prt Dt/Tm: 5612-0619: Total DLP = 0.00 mGy-cm Fluoroscopy Time (in secs): Radiology Report August 09, 2020 7:21p m Floyd Cain MD completed [facility] [address] [place] [address] [phone] NAME SEX PT STATUS ACCOUNT NUMBER BRITTON GOMEZ [facility] [id number] ORDERING PHYSICIAN LOCATION MEDICAL RECORD NO. Jael NARAYAN [id number] ATTENDING PHYSICIAN DATE OF DATE OF EXAM/TIME Tono Guardado DO 1940 08/09/20 / 1823 TYPE / EXAM CT Head without contrast REASON FOR EXAM Presyncope Clinical History/Indication for Exam: Presyncope CT brain without contrast 08/09/2020 Clinical information: Presyncopal Technique: Routine noncontrast CT brain. Comparison: 01/23/2020 Findings: There is no interval evidence of acute intracranial hemorrhage. There is moderate, stable low attenuation in the periventricular and subcortical white matter, nonspecific but likely indicating sequelae of remote small vessel ischemia. There is no clear evidence of an acute intracranial infarct in this setting. There is no interval midline shift, intracranial mass, or mass-effect. There is no interval extra-axial fluid collection or hydrocephalus. Stable ventricle size. Visualized paranasal sinuses and mastoids are clear. There are arterial atherosclerotic changes. Within the posterior aspect of the left upper globe, there is a 4 mm radiodensity which appears to have slightly changed its position compared to the prior CT. This is concerning for an intraocular radiodense foreign body. This would preclude an MRI. Impression: 1. No acute hemorrhage. 2. 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 3. Stable ventricle size. 4. Left intraocular radiodensity which appears to changed in position from the prior concerning for foreign body. This would preclude an MRI. Automatic exposure control was used as a dose lowering technique. REPORT SIGNATURE ON FILE 08/09/2020 (19:21 Eastern Time ) Signed by: Floyd Cain M.D. Reported By Floyd Cain MD on 08/09/201920 Signed By Floyd Cain MD on 08/09/201920 Date Time CC: Tono Guardado DO; Floyd Cain MD Techn: EBEBR Trans Dt/Tm: Trans by: MARKELL Prt Dt/Tm: 2402-3642: Total DLP = 667.00 mGy-cm 5357-9249: Total Radiation Dose = 2.0677 mSv Lifetime Dose: 10.6737 mSv Radiology Report August 09, 2020 7:27p m Hema Oleary MD completed [facility] [address] [place] [address] [phone] NAME SEX PT STATUS ACCOUNT NUMBER BRITTON GOMEZ ADM JOY [id number] ORDERING PHYSICIAN LOCATION MEDICAL RECORD NO. Jael NICOLE Richbethjanice [id number] ATTENDING PHYSICIAN DATE OF DATE OF EXAM/TIME Tono Guardado DO 1940 08/09/201915 TYPE / EXAM US Carotid art complete bilat REASON FOR EXAM Dizziness, chest pain Clinical History/Indication for Exam: Dizziness, chest pain US DUPLEX BILATERAL EXTRACRANIAL ARTERIES INDICATION: Dizziness, chest pain TECHNIQUE: Real-time duplex ultrasound scan of the extracranial arteries integrating B-mode two-dimensional vascular structure, Doppler spectral analysis and color flow Doppler imaging. COMPARISON: No relevant prior studies available. FINDINGS: Right common carotid artery: Unremarkable. No occlusion or significant stenosis on color flow and spectral Doppler imaging. Right internal carotid artery: There is plaque formation within the right carotid bifurcation No occlusion or significant stenosis on color flow and spectral Doppler imaging. Right external carotid artery: Unremarkable. No occlusion or significant stenosis on color flow and spectral Doppler imaging. Right vertebral artery: Unremarkable. Antegrade flow. Right ICA/CCA ratio: Unremarkable. Within normal limits. Left common carotid artery: Unremarkable. No occlusion or significant stenosis on color flow and spectral Doppler imaging. Left internal carotid artery: There is plaque formation within the left carotid bifurcation No occlusion or significant stenosis on color flow and spectral Doppler imaging. Left external carotid artery: Unremarkable. No occlusion or significant stenosis on color flow and spectral Doppler imaging. Left vertebral artery: Unremarkable. Antegrade flow. Left ICA/CCA ratio: Unremarkable. Within normal limits. Lymph nodes: Unremarkable. No lymphadenopathy. CAROTID STENOSIS REFERENCE USING SRU CRITERIA: Mild - <50% stenosis. ICA PSV is less than 125 cm/second and plaque or intimal thickening is visible. Moderate - 50-69% stenosis. ICA PSV is 125 to 230 cm/second and plaque is visible. Severe - 70-94% stenosis. ICA PSV is more than 230 cm/second and visible plaque with lumen narrowing is seen. Near occlusion - 95-99% stenosis. ICA PSV is variable and significant plaque with luminal narrowing is seen. Occluded - 100% stenosis. No flow identified. IMPRESSION: 1. No evidence for hemodynamically significant stenosis on either side 2. There is plaque formation within both carotid bifurcations REPORT SIGNATURE ON FILE 08/09/2020 (19:27 Eastern Time ) Signed by: Hema Oleary M.D. Reported By Hema Oleary MD on 08/09/201926 Signed By Hema Oleary MD on 08/09/201926 Date Time CC: Tono Guardado DO; Hema Oleary MD Techn: JORDIN Trans Dt/Tm: Trans by: DT Prt Dt/Tm: 1107-4271: Total DLP = 0.00 mGy-cm : Total Radiation Dose = 0.0000 mSv Lifetime Dose: 10.6737 mSv Health Concerns Health Concerns may be documented in an alternate section. Advance Directives Advance Directive Response Recorded Date/Time Advanced Directive Yes J anuary 2020 1:44pm MOLST No August 14 1:44pm Advance Directives on File or in chart? Yon piña August 14, 2020 1:44pm Does Patient have a DNR? Yes August 14, 2020 1:44pm Healthcare Proxy Yes Eugenio leong 2020 1:44pm Health Care Proxy Name Nanette Gomez August 14, 2020 1:44pm Health Care Proxy Phone Number August 14, 2020 1:44pm Living Will Yes August 14, 2020 1:44pm Chief Complaint and Reason for Visit Chief Complaint J06.9,I48.91 I48.91 I48.91, I48.2 Medicare Annual Wellness subsequent I48.91 I48.91 Medication check M54.2 E89.5,I48.91,C61 I48.91 I48.91 I48.91 I48.91 Shortness of breath SOB I48.91 O48.91 O48.91 I48.91 I48.91 I48.91 I48.91 I48.91 I48.91 I48.91 I48.91,J06.9,Z95.2 FALL,EAR LAC Wound Care I48.91,Z95.2 I48.91 I48.91 Hypertension I48.91,W57.XXXA Medicare Annual Wellness subsequent I48.91 I48.91 Rash I48.91 I48.91 Telemed Visit I48.91 Hypertension CHEST PAIN Telemed Visit Reason for Visit Atrial fibrillation Congestive heart failure (CHF) Weakness Laceration of ear, external, left, complicated Hypertension, essential, benign Atrial fibrillation Neck pain Atrial fibrillation Dermatitis Encounters Encounter Location(s) Ar rival/Admit Date Discharge/Depart Date Provider(s) Registered Referred -Lab Drop Off August 31, 2019 7:00am Julian Herrera DO Registered Referred -Laboratory September 02, 2019 11:16am Lillian Chavira Registered Outpatient -[facility] September 02, 2019 5:06pm Julian Herrera DO Registered Referred -Lab Drop Off September 14, 2019 7:00am Julian Herrera DO Departed Physician/Provider Office Visit -[facility] September 14, 2019 10:17am September 14, 2019 11:39am Julian Herrera DO Registered Referred -Lab Drop Off October 12, 2019 7:10am Julian Herrera DO Registered Outpatient -[facility] October 12, 2019 11:44am Julian Herrera DO Registered Referred -Laboratory October 19, 2019 6:00am Tono Guardado DO Registered Outpatient -[facility] October 19, 2019 2:59pm Tono Guardado DO Departed Physician/Provider Office Visit -[facility] October 20, 2019 8:48am October 20, 2019 9:50am Tono Guardado DO Registered Referred -Radiology October 20, 2019 9:54am Tono Guardado DO Registered Referred -Lab Drop Off November 09, 2019 5:55am Tray Vazquez Registered Outpatient -[facility] November 09, 2019 8:42am Tono Guardado DO Registered Referred -Lab Drop Off November 23, 2019 6:05am Kaz Cid MD Registered Referred -Laboratory November 26, 2019 8:30am Kaz Cid MD Registered Referred -Laboratory December 01, 2019 8:00am Kaz Cid MD Registered Referred -Laboratory December 06, 2019 8:00am Kaz Cid MD Departed Physician/Provider Office Visit -[facility] December 09, 2019 7:25am December 09, 2019 8:08am Tara Dylon Departed Emergency -Emergency Room ER December 09, 2019 8:11am December 09, 2019 10:40am null Registered Referred -Laboratory December 13, 2019 7:00am Tara Dylon Registered Referred -Laboratory December 15, 2019 8:00am Tara Dylon Registered Referred -Laboratory December 22, 2019 7:45am Tara Dylon Registered Referred -Laboratory December 23, 2019 8:00am Tara Dylon Registered Referred -Laboratory December 24, 2019 8:00am Tara Dylon Registered Referred -Laboratory December 27, 2019 7:30am Kaz Cid MD Registered Referred -Laboratory December 30, 2019 8:27am Tara Dylon Registered Referred -Laboratory January 06, 2020 8:43am Tara Dylon Registered Referred -Laboratory January 07, 2020 8:18am Tara Dylon Registered Referred -Laboratory January 14, 2020 6:00am Tara Dylon Registered Referred -Laboratory January 21, 2020 6:00am Carmen Presley Departed Emergency -Emergency Room ER January 23, 2020 3:00pm January 23, 2020 5:42pm null Departed Physician/Provider Office Visit -[facility] General Surgery January 25, 2020 1:12pm January 25, 2020 1:36pm Carlos Drummond DO Registered Referred -Laboratory February 10, 2020 9:02am Carmen Presley Registered Outpatient -[facility] February 14, 2020 12:46pm Anjana Lucio NP Registered Referred -Laboratory February 18, 2020 11:08am Tara Dylon Registered Referred -Laboratory February 28, 2020 6:28am Taraoumou Osborne Departed Physician/Provider Office Visit -[facility] March 08, 2020 8:26am March 08, 2020 9:28am Tono Guardado DO Registered Referred -Laboratory March 08, 2020 9:25am Taraoumou Osborne Departed Physician/Provider Office Visit -[facility] March 17, 2020 2:08pm March 17, 2020 3:45pm Tono Guardado DO Registered Referred -Laboratory March 31, 2020 6:00am Tono Guardado DO Registered Referred -Laboratory May 12, 2020 6:23am Tara Osborne Departed Physician/Provider Office Visit -[facility] May 16, 2020 8:27am May 16, 2020 10:03am Tono Guardado DO Registered Referred -Laboratory May 23, 2020 8:54am Tara Osborne Registered Referred -Laboratory June 23, 2020 9:23am Tono Guardado DO Departed Physician/Provider Office Visit -[facility] June 23, 2020 1:13pm June 23, 2020 2:54pm Tono Guardado DO Registered Referred -Laboratory June 30, 2020 11:15am Tono Guardado DO Registered Referred -Laboratory July 07, 2020 9:25am Tono Guardado DO Departed Physician/Provider Office Visit -[facility] July 11, 2020 10:41am July 11, 2020 11:45am oTno Guardado DO Registered Referred -Laboratory July 26, 2020 10:55am Destin Arthur MD Discharged Inpatient -[facility] August 09, 2020 6:05pm August 10, 2020 7:48pm Shekhar Louis MD Departed Physician/Provider Office Visit -[facility] August 16, 2020 9:35am August 16, 2020 11:40am Tono Guardado DO Recent Diagnosis Onset Date Atrial fibrillation Congestive heart failure (CHF) Weakness Laceration of ear, external, left, complicated Hypertension, essential, benign January 06, 2015 Atrial fibrillation Neck pain Atrial fibrillation Dermatitis Assessments Diagnosis Onset Date Res olution Status Atrial fibrillation chronic Congestive heart failure (CHF) chronic Weakness resolved Laceration of ear, external, left, complicated resolved Hypertension, essential, benign January 06, 2015 chronic Atrial fibrillation chronic Neck pain acute Atrial fibrillation chronic Dermatitis chronic Family History Relationship Condition A ge at Onset Recorded Date/Time Not Specified Cardiac disease Unknown Not Specified Hyperlipidemia Unknown Hypertension Unknown Not Specified Multiple sclerosis Unknown Functional Status Observation Response Lobo e Recorded Functional Status Modified Pike August 09, 2020 11:22pm Goals Goals may be documented in an alternate section. Immunizations Immunization Event Date Not Given Reason Dose Number Last Model Maker Lot Number Vaccine Information Statement (VIS) Deta il pneumococcal conjugate PCV 13 Mayobe r 2016 zoster (shingles) vaccine, live, sc November 03, 2016 pneumococcal polysaccharide PPV23 vaccine September 14, 2019 [id number] tetanus, diphtheria, acell pertussis 7yrs &up January 23, 2020 [id number] Mental Status Observation Response Lobo e Recorded Cognitive Status Normal Cognition August 09, 2020 11:22pm Medical Equipment No Medical Equipment Information available Insurance Providers Guarantor BRITTON GOMEZ Address [address] [place] [address] Contact Info. Home Phone: Payer Policy Id Coverage Id Subscriber's Name Subscriber Id Effective Date Expiration Date [facility] [id number] BRITTON GOMEZ [id number] [facility] [id number] BRITTON GOMEZ [id number] 2011 MEDICARE UPSTATE [id number] BRITTON GOMEZ [id number] 2011 MEDICARE [id number] BRITTON GOMEZ [id number] Self Pay Self N/A Plan of Treatment needs improvement continue tylenol f/u pain management stable refill warfarin 2mg repeat inr 1 month needs improvement f/u mental health case manager agrees to decrease warfarin schedule new dosage schedule is 2mg on Friday , friday, and the other four days will be 3mg repeat inr in about one week if condition worsens, then go to ER hydrocortisone prn f/u dermatolgist f/u it audit manager hydrocortisone as ordered if worsens, then go to ER and patient denies new foods, new soaps, new detergents, denies pets f/u mental health case manager f/u it audit manager hydrocortisone prn itch hydrocortisone provides relief for about 3 hours if condition worsens, then go to ER inr is therapeutic between 2.5 - 3.5 continue current warfarin schedule repeat inr in about one week permethrin as ordered; wash all bed sheets, pillow cases, blankets, all linen f/u dermatology if condition worsens, then rtc as soon as possible stable continue current medical treatment f/u 3 months completed wellness exam repeat inr in about 2 week stable continue same dosage schedule inr in 2 weeks stable continue current medical treatment f/u medtronics technician left abdomen, possible insect bite he does not recall any metal he thinks it might be the garage he agrees to lyme test he denies fever, he denies bulls eye rash trial of hydrocortisone cream f/u teacher lip reading if necessary to change to alternative calcitriol avulsion tear left external ear lobe. surgicel dressing applied after removing d ressing placed by the ER. wound care d/w patient's . advised her to call or return to office o r ER with any concerns. WILL HAVE FURTHER EVAL IN ER D/T CARDIAC HX HAS BEEN OFF ANTICOAGULANTS X 1 WEEK. xray of c spine f/u 4 weeks if worsens, then go to ER continue same coumadin dosage schedule for now it was therapeutic and patient is taking same dosage schedule and denies dark gr een leafy vegetables if emergency then go to closest ER repeat INR in about 1-2 weeks Britton Gomez is an 79 yo M presenting for annual wellness visit. We discussed AD Ls. I encouraged the patient to consider physical therapy for improvement in ambulation. He has no difficulty with chewing and eating, I made recommendations to improve nutrition. He endorses a prior evaluation with audiology for recommendation of hearing aids however did not get them due t o cost. I encouraged consideration for reevaluation as well as inquiry with any insurance for coverage. He has no concerns for his vision. We engaged in shared decision making for consid eration of blood work. As a group we decided that he had indications for lab work however did no t see a long-term benefit in management of any laboratory abnormalities. He understands the benef its and risks of this and wanted to focus on quality of life. BMI32.5, class I obesity -Encouraged for dietary/lifestyle modifications and follow-up visit if desired Blood pressurewell-controlled, on medications, followed by nephrology and c ardiology -Continue current medications Alcohol abusenone Tobacco usenone Lung cancer screeningaged out and does not meet criteria HIVno risk factors and declines Colon cancer screeningaged out, less than 10-year life expectancy, no curre nt symptoms or signs PSA screeningcurrently followed with urology Depression/anxiety: No prior history, no current symptoms -PHQ 9: Negative -ABELINO-7: Negative Latent tuberculosis infectionlow risk, testing not indicated Vaccinations: Provided PPSV 23 today Eye/dental: Encouraged for routine eye and dental health End of life care: He and his confirmed today that he would like to be DNR and DNI they state they have completed paperwork for this. They are okay with hospitalization for other medical treatment however. They have been considering dialysis should he come to need t hat. Future Tests Future scheduled test information is unavailable Pending Tests Pending diagnostic test information is unavailable Future Visits Future appointment information is unavailable Referrals to Other Providers Reason for Referral Referral Start Date Provider Provider Conta ct Information Provider Address Tono Guardado DO Email: [email or web address] Phone: [address] [facility] [address] Tara Osborne Email: [email or web address] Phone: [address] [place] [address] Vlad Elizabeth MD Work Phone: [phone] [facility] [address] [place] [facility] [address] M54.2 - Cervicalgia August 16, 2020 [facility] [address] [facility] [address] L29.9 - Pruritus, unspecified May 16, 2020 [facility] [address] [facility] [address] [facility] [address] B07.9 - Viral wart, unspecified May 16, 2020 dermatology Future Procedures Future procedure information is unavailable Future Medications Future medication information is unavailable Patient Instructions Warfarin (By mouth) Chest Pain (DC) Social History Smoking Status Status Date of Observation Former smoker August 14, 2020 1:44 pm Observation Status Observation Response Lobo e of Response Smoking Status Former smoker August 14, 2020 1:44pm Alcohol Use No August 142020 1:44pm Substance Use No August 14, 2020 1:44pm Inhalant Use No August 14, 2020 1:44pm When did patient quit smoking? 45 yrs ago August 14, 2020 1:44pm Assigned Sex Male Vital Signs Vital Reading Result Ref erence Range Collection Date/Time Height 64 [in_i] September 14, 2019 10:24am Weight 190.00 [lb_av] September 14, 2019 10:24am Heart Rate 94 /min 60-100 September 14, 2019 10:24am Respiratory rate 16 /min 12-24 September 14, 2019 10:24am Oxygen saturation by Pulse oximetry 97 % 95- 100 September 14, 2019 10:24am BP Systolic 102 mm[Hg] September 14, 2019 10:24am BP Diastolic 70 mm[Hg] September 14, 2019 10:24am BMI (Body Mass Index) 32.5 kg/m2 September 14, 2019 10:24am Height 64 [in_i] October 20, 2019 10:09am Weight 193.00 [lb_av] October 20, 2019 10:09am Heart Rate 95 /min 60-100 October 20, 2019 10:09am Respiratory rate 16 /min 12-24 October 20, 2019 10:09am Oxygen saturation by Pulse oximetry 99 % 95- 100 October 20, 2019 10:09am BP Systolic 120 mm[Hg] October 20, 2019 10:09am BP Diastolic 80 mm[Hg] October 20, 2019 10:09am BMI (Body Mass Index) 33.1 kg/m2 October 20, 2019 10:09am Height 64 [in_i] December 09, 2019 8:27am Weight 191.02 [lb_av] December 09, 2019 8:27am Heart Rate 110 /min 60-1 December 09, 2019 8:27am Respiratory rate 18 /min -December 09, 2019 8:27am Oxygen saturation by Pulse oximetry 95 % 95- 100 December 09, 2019 8:27am BP Systolic 90 mm[Hg] December 09, 2019 8:27am BP Diastolic 40 mm[Hg] December 09, 2019 8:27am BMI (Body Mass Index) 32.8 kg/m2 December 09, 2019 8:27am Height 67 [in_i] December 09, 2019 9:45am Weight 180.00 [lb_av] December 09, 2019 9:45am Body Temperature 97.9 [degF] 97.6-99.5 December 09, 2019 9:11am Heart Rate 82 /min 60-100 December 09, 2019 9:11am Respiratory rate 18 /min 12-December 09, 2019 9:11am Oxygen saturation by Pulse oximetry 100 % 95-100 December 09, 2019 9:11am BP Systolic 154 mm[Hg] December 09, 2019 9:11am BP Diastolic 72 mm[Hg] December 09, 2019 9:11am Height 66 [in_i] January 23, 2020 4:03pm Weight 183.00 [lb_av] January 23, 2020 4:03pm Body Temperature 97.5 [degF] 97.6-99.5 January 23, 2020 4:00pm Heart Rate 91 /min 60-100 January 23, 2020 6:47pm Respiratory rate 20 /min 12-24 January 23, 2020 6:47pm Oxygen saturation by Pulse oximetry 94 % 95- 100 January 23, 2020 6:47pm BP Systolic 139 mm[Hg] January 23, 2020 6:47pm BP Diastolic 79 mm[Hg] January 23, 2020 6:47pm Height 66 [in_i] January 25, 2020 2:14pm Weight 183.00 [lb_av] January 25, 2020 2:14pm Body Temperature 97.5 [degF] 97.6-99.5 January 25, 2020 2:14pm Heart Rate 88 /min 60-100 January 25, 2020 2:14pm Respiratory rate 24 /min 12-January 25, 2020 2:14pm Oxygen saturation by Pulse oximetry 96 % 95- 100 January 25, 2020 2:14pm BP Systolic 132 mm[Hg] January 25, 2020 2:14pm BP Diastolic 80 mm[Hg] January 25, 2020 2:14pm BMI (Body Mass Index) 29.5 kg/m2 January 25, 2020 2:14pm Height 66 [in_i] March 08, 2020 9:31am Weight 187.37 [lb_av] March 08, 2020 9:31am Heart Rate 78 /min 60-100 March 08, 2020 9:31am Respiratory rate 18 /min 12-March 08, 2020 9:31am Oxygen saturation by Pulse oximetry 98 % 95- 100 March 08, 2020 9:31am BP Systolic 120 mm[Hg] March 08, 2020 9:31am BP Diastolic 70 mm[Hg] March 08, 2020 9:31am BMI (Body Mass Index) 30.2 kg/m2 March 08, 2020 9:31am Height 66 [in_i] March 17, 2020 3:37pm Weight 191.37 [lb_av] March 17, 2020 3:37pm Heart Rate 86 /min 60-100 March 17, 2020 3:37pm Respiratory rate 18 /min 12-March 17, 2020 3:37pm Oxygen saturation by Pulse oximetry 97 % 95- 100 March 17, 2020 3:37pm BP Systolic 120 mm[Hg] March 17, 2020 3:37pm BP Diastolic 80 mm[Hg] March 17, 2020 3:37pm BMI (Body Mass Index) 30.9 kg/m2 March 17, 2020 3:37pm Height 66 [in_i] May 16, 2020 9:50am Weight 191.25 [lb_av] May 16, 2020 9:50am Heart Rate 94 /min 60-100 May 16, 2020 9:50am Respiratory rate 18 /min 12-May 16, 2020 9:50am Oxygen saturation by Pulse oximetry 97 % 95- 100 May 16, 2020 9:50am BP Systolic 120 mm[Hg] May 16, 2020 9:50am BP Diastolic 70 mm[Hg] May 16, 2020 9:50am BMI (Body Mass Index) 30.9 kg/m2 May 16, 2020 9:50am Height 66 [in_i] July 11, 2020 10:50am Weight 188.00 [lb_av] July 11, 2020 10:50am Heart Rate 85 /min 60-100 July 11, 2020 10:50am Respiratory rate 18 /min -July 11, 2020 10:50am Oxygen saturation by Pulse oximetry 98 % 95- 100 July 11, 2020 10:50am BP Systolic 100 mm[Hg] July 11, 2020 10:50am BP Diastolic 64 mm[Hg] July 11, 2020 10:50am BMI (Body Mass Index) 30.3 kg/m2 July 11, 2020 10:50am Height 67 [in_i] August 10, 2020 4:52pm Weight 186.60 [lb_av] August 10, 2020 4:52pm Body Temperature 98 [degF] 97.6-99.5 August 10, 2020 4:00pm Heart Rate 80 /min 60-100 August 10, 2020 7:00pm Respiratory rate 14 /min -August 10, 2020 7:00pm Oxygen saturation by Pulse oximetry 95 % 95- 100 August 10, 2020 7:00pm BP Systolic 124 mm[Hg] August 10, 2020 5:34pm BP Diastolic 86 mm[Hg] August 10, 2020 5:34pm BMI (Body Mass Index) 29.2 kg/m2 August 10, 2020 4:52pm
--- OUTSIDE RECORDS SUMMARY | 2020-09-06 20:00 | CCD | Continuity of Care Document ---
Author Author Lasha MATTHEWS MD Organization Unknown Address [address] [place] [address] Phone [phone] Care Team Providers Care Form Maker Name Role Phone Karl Weir M.D. AUTM [phone] Tono Guardado MD AUTM [phone] Problems Active Problems Provider Date Microscopic hematuria Tray Vazquez MD Onset: 04/28/2014 Raised prostate specific antigen Tray Vazquez MD Onset: 04/28/2014 Benign prostatic hypertrophy with outflow obstruction Tushar Vazquez MD Onset: 04/28/2014 Choco hematuria Tray Vazquez MD Onset: 04/28/2014 Nocturia Tray Vazquez MD Onset: 04/28/2014 Dribbling of urine Tray Vazquez MD Onset: 04/28/2014 Increased frequency of urination Tray Vazquez MD Onset: 05/13/2014 Impotence of organic origin Tray Vazquez MD Onset: 05/12 Postablative testicular hypofunction Tray Vazquez MD On set: 11/01/2019 Malignant tumor of prostate Tray Vazquez MD Onset: 07/12 Neoplasm of uncertain behavior of prostate Tray Vazquez MD Onset: 06/21/2019 Redundant prepuce and phimosis Tray Vazquez MD Onset: 1 08/18/2017 Social History Type Date Description Comments [...] 1 every 6 months x2 2units Tray Vazquez MD 08/02/2019 Finasteride 5mg Tablets Take One Tablet By Mouth Every Day 90tabs Tray Vazquez MD 06/18/2017 Tamsulosin HCL 0.4mg Capsules Take One Capsule By Mouth Every Day After Dinner 90caps Tray Vazquez MD 05/13/2014 Gemfibrozil 600mg Tablets Unknown Albuterol Sulfate (2 .5mg/3ML) 0.083% Nebulizer Unknown Calcitriol 0.25mcg Capsules Unknown Epogen 73570Nmmj/ML Solution every two weeks Unknown Rosuvastatin Calcium [...] Medication SIG Qnty Indications Ordering Provider Date Enzo 6 Months 45MG Injection Tray Vazquez MD 08/14/2020 Enzo 6 Months 45MG Injection [place] Nurse 02/03/2020 Enzo 6 Months 45MG Injection Tray Vazquez MD 08/02/2019 Immunizations Description No Information Available [...] Total W/Reflex 08/14/2020 [facility] [address] [place] [address] [phone] Total PSA only <0.04 ng/mL 0.00-4.00 Hepatic Function Panel 08/14/2020 [facility] [address] [place] [phone] Albumin 4.5 g/dL 3.2-4.6 Alk Phos 121.0 U/L High 45.0-117.0 Alt 13.0 U/L 0.0-55.0 Ast 15.0 U/L 11.0-39.0 Total Protien 7.1 g/dL 6.4-8.3 DBili 0.16 mg/dL 0.00-0.50 TBili 0.3 mg/dL 0.0-1.2 Globulin 2.6 Laboratory test finding 08/14/2020 [facility] [address] [place] [address] [phone] Testosterone 16.61 ng/dL Low 300.00-1000.00 230 Ua Routine 08/14/2020 [facility] REF TO DR ADDRESS ON ORDER FOR (606)- - Ua Glucose Negative Ua Protein Trace Ua Nitrite Negative Ua Leuko Negative Ua Blood Trace-intact Ua Color Not Entered Ua Ketones Negative Ua Clarity Not Entered Ua Specific [place] 1.015 1.003-1.030 Ua PH 5.0 5.0-7.5 Ua Bilirubin Negative Ua Urobilinogen 0.2 E.U./dL 0.0-1.0 CBC W/Diff 08/10/2020 Outside Facility (106)- - Hematocrit 33.8 Low 42-52 CMP 08/10/2020 Outside Facility (315)- - BUN - Urea Nitrogen 70 High 9-23 Creatinine 3.0 High 0.5-1.1 Testosterone Free & Total 05/10/2020 [phone] [phone] Testosterone,Total @ 10 ng/dL Low (87-780) 1 Testo, Free 2 pg/mL Low (47-244) 2 Testo, Percent Free 2.0 % (1.6-2.9) Sex Horm Bind Glob @ 27 nmol/L (22-113) 3 PSA Total W/Reflex Free 05/10/2020 [facility] FX# [phone] [phone] PSA Total 0.1 ng/mL (0.0-4.0) 4 Hepatic Function 05/10/2020 Laboratory [place] [facility] FX# [id number] [phone] Total Protein 7.2 g/dL (6.4-8.2) Albumin 4.2 g/dL (3.2-4.5) Globulin 3.0 g/dL (2.7-4.3) Alb/Glob Ratio 1.4 RATIO Bilirubin,Total 0.3 mg/dL (0.0-1.0) 5 Bilirubin,Conjugated 0.1 mg/dL (0.0-0.3) Bilirubin,Unconj. 0.2 mg/dL (0.0-0.7) Alkaline Phosphatase 142 U/L High (45-117) Ast (Sgot) 15 U/L (11-39) Alt (SGPT) 16 U/L (12-78) 230 Ua Routine 05/10/2020 [facility] REF TO ADDRESS ON ORDER FOR (801)- - Ua Glucose Negative Ua Protein Negative Ua Nitrite Negative Ua Leuko Negative Ua Blood Trace-lysed Ua Color Not Entered Ua Ketones Negative Ua Clarity Not Entered Ua Specific [place] 1.015 1.003-1.030 Ua PH 5.5 5.0-7.5 Ua [...] ABSENCE OF MALIGNANT DISEASE. METHOD IS [employer] CHEMILUMINESCENT IMMUNOASSAY (CALIBRATION TRACEABLE TO WHO 1ST , 1998,96/668). VALUES OBTAINED WITH DIFFERENT ASSAY METHODS OR KITS CANNOT BE USED INTERCHANGEABLY. 5 PLEASE NOTE: Total bilirubin results may be falsely elevated in patients taking Eltrombopag. Procedures Date Code Description Status 08/14/2020 73933 Chemotherapy Injection; Hormonal Anti-Neoplastic Completed 05/10/2020 55325 Bladder Scan, Post Voiding Resid ual Urine Completed 05/10/2020 55505 Urodynamics, Complex Uroflowmetry Eg Calibrated Electronic Office Completed 08/11/2015 [id number] Colonoscopy Completed Medical Devices Description No Information Available Encounters Type Date Location Provider Dx Diagnosis Office Visit 08/14/2020 1:40p [facility] Ernie Vazquez MD C61 Malignant neoplasm of prosta te E89.5 Postprocedural testicular hy pofunction N40.1 Benign prostatic hyperplasia with lower urinary tract symp R35.0 Frequency of micturition R35.1 Nocturia N39.43 Post-void dribbling R31.0 Gross hematuria N52.8 Other male erectile dysfunct ion N47.1 Phimosis Office Visit 05/10/2020 2:00p [facility] Ernie Vazquez MD C61 Malignant neoplasm of prosta te E89.5 Postprocedural testicular hy pofunction N40.1 Benign prostatic hyperplasia with lower urinary tract symp R35.0 Frequency of micturition R35.1 Nocturia N39.43 Post-void dribbling R31.0 Gross hematuria N52.8 Other male erectile dysfunct ion N47.1 Phimosis Assessments Date Code Description Provider 08/14/2020 C61 Malignant neoplasm of prostate Ernie Vazquez MD 08/14/2020 E89.5 Postprocedural testicular hypofu nction Tray Vazquez MD 08/14/2020 N40.1 Benign prostatic hyperplasia wit h lower urinary tract sympto Tray Vazquez MD 08/14/2020 R35.0 Frequency of micturition Saroj Vazquez MD 08/14/2020 R35.1 Nocturia Tray Vazquez MD 08/14/2020 N39.43 Post-void dribbling Tray alexander MD 08/14/2020 R31.0 Gross hematuria Tray Vazquez MD 08/14/2020 N52.8 Other male erectile dysfunction Tray Vazquez MD 08/14/2020 N47.1 Phimosis Tray Vazquez MD 08/14/2020 E89.5 Postprocedural testicular hypofu nction Bernardo Matthews MD 08/14/2020 C61 Malignant neoplasm of prostate B alpesh Matthews MD 05/10/2020 C61 Malignant neoplasm of prostate J bean Vazquez MD 05/10/2020 E89.5 Postprocedural testicular hypofu nction Tray Vazquez MD 05/10/2020 N40.1 Benign prostatic hyperplasia wit h lower urinary tract sympto Tray Vazquez MD 05/10/2020 R35.0 Frequency of micturition Saroj Vazquez MD 05/10/2020 R35.1 Nocturia Tray Vazquez MD 05/10/2020 N39.43 Post-void dribbling Tray alexander MD 05/10/2020 R31.0 Gross hematuria Tray Vazquez MD 05/10/2020 N52.8 Other male erectile dysfunction Tray Vazquez MD 05/10/2020 N47.1 Phimosis Tray Vazquez MD Plan of Treatment Future Appointment(s):* 11/20/2020 1:20 pm - Tray Vazquez MD at [place] 08/14/2020 - Tray Vazquez MD* C61 Malignant neoplasm of prostate * E89.5 Postprocedural testicular hypofunction* New Labs:* Testosterone Free & Total, Ordered: 08/14/20 * N40.1 Benign prostatic hyperplasia with lower urinary tract sympto * R35.0 Frequency of micturition * R35.1 Nocturia * N39.43 Post-void dribbling * R31.0 Gross hematuria * N52.8 Other male erectile dysfunction * N47.1 Phimosis * All * Referral:* Tray Vazquez M.D., Urology * Follow up:* Blood work now; follow-up in 3 months flow, PVR, AUA with urinalysis; get last note from PCP; get records from recent hospitalization from [facility]; get last note from Dr. Weir, patient's hematology/oncology physician Functional Status Description No Information Available Mental Status Description No Information Available Referrals Refer to Reason for Referral Status Appt Date Tray Vazquez M.D. Eligard Created [facility] Urology [address] [place] [address] [phone]
--- OUTSIDE RECORDS SUMMARY | 2020-09-06 20:01 | CCD | Continuity of Care Document ---
Author Author Lasha SAMPSON MD Organization Unknown Address [address] [place] [address] Phone [phone] Care Team Providers Care Forensic Investigator Name Role Phone Karl Weir M.D. AUTM [phone] Tono Guardado MD AUTM [phone] Problems Active Problems Provider Date Microscopic hematuria [...] Nebulizer Unknown Calcitriol 0.25mcg Capsules Unknown Epogen 61830Lxvq/ML Solution every two weeks Unknown Rosuvastatin Calcium [...] MD 08/14/2020 Enzo 6 Months 45MG Injection [place] Nurse 02/03/2020 Enzo 6 Months 45MG Injection [...] Date Facility Test Result H/L Range Note Laboratory test finding 08/14/2020 [facility] [address] [place] [address] [phone] Testosterone <pending> 230 Ua Routine 08/14/2020 [facility] REF TO DR ADDRESS ON ORDER FOR (413)- - Ua Glucose Negative Ua Protein Trace Ua Nitrite Negative Ua Leuko Negative Ua Blood Trace-intact Ua Color Not Entered Ua Ketones Negative Ua Clarity Not Entered Ua Specific [place] 1.015 1.003-1.030 Ua PH 5.0 5.0-7.5 Ua Bilirubin Negative Ua Urobilinogen 0.2 E.U./dL 0.0-1.0 Testosterone Free & Total 05/10/2020 [facility] FX# [id number] [phone] Testosterone,Total @ 10 ng/dL Low (87-780) 1 Testo, Free 2 pg/mL Low (47-244) 2 Testo, Percent Free 2.0 % (1.6-2.9) Sex Horm Bind Glob @ 27 nmol/L (22-113) 3 PSA Total W/Reflex Free 05/10/2020 Laboratory [facility] FX# [id number] [phone] PSA Total 0.1 ng/mL (0.0-4.0) 4 Hepatic Function 05/10/2020 Laboratory [place] [facility] FX# [phone] Total Protein 7.2 g/dL (6.4-8.2) Albumin 4.2 g/dL (3.2-4.5) Globulin 3.0 g/dL (2.7-4.3) Alb/Glob Ratio 1.4 RATIO Bilirubin,Total 0.3 mg/dL (0.0-1.0) 5 Bilirubin,Conjugated 0.1 mg/dL (0.0-0.3) Bilirubin,Unconj. 0.2 mg/dL (0.0-0.7) Alkaline Phosphatase 142 U/L High (45-117) Ast (Sgot) 15 U/L (11-39) Alt (SGPT) 16 U/L (12-78) 230 Ua Routine 05/10/2020 [facility] REF TO DR ADDRESS ON ORDER FOR (315)- - Ua Glucose Negative Ua Protein Negative Ua Nitrite Negative Ua Leuko Negative Ua Blood Trace-lysed Ua Color Not Entered Ua Ketones Negative Ua Clarity Not Entered Ua Specific [place] 1.015 1.003-1.030 Ua PH 5.5 5.0-7.5 Ua [...] OR ABSENCE OF MALIGNANT DISEASE. METHOD IS [employer] CHEMILUMINESCENT IMMUNOASSAY (CALIBRATION TRACEABLE TO WHO 1ST IS, 1998,96/668). VALUES OBTAINED WITH DIFFERENT ASSAY METHODS OR KITS CANNOT BE USED INTERCHANGEABLY. 5 PLEASE NOTE: Total bilirubin results may be falsely elevated in patients taking Eltrombopag. Procedures Date Code Description Status 08/14/2020 32168 Chemotherapy Injection; Hormonal Anti-Neoplastic Completed 05/10/2020 76230 Bladder Scan, Post Voiding Resid ual Urine Completed 05/10/2020 53852 Urodynamics, Complex Uroflowmetry Eg Calibrated Electronic Office Completed 08/11/2015 [id number] Colonoscopy Completed Medical Devices Description No Information Available Encounters Type Date Location Provider Dx Diagnosis Office Visit 08/14/2020 1:40p 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 Weir, patient's hematology/oncology physician Functional Status Description No Information Available Mental Status Description No Information Available Referrals Refer to Reason for Referral Status Appt Date Tray Sampson M.D. [facility] Urology [address] [place] [address] [phone]
--- OUTSIDE RECORDS SUMMARY | 2020-09-06 20:01 | CCD | Continuity of Care Document ---
Author Organization Unknown Address Unknown Phone Unavailable Care Team Providers Care Vision Specialist Name Role Phone Karl Weir M.D. AUTM [phone] Tono Guardado MD AUTM [phone] Problems Active Problems Provider Date Microscopic hematuria [...] prepuce and phimosis Tray Vazquez MD Onset: 08/18/2017 Social History Type Date [...] Nebulizer Unknown Calcitriol 0.25mcg Capsules Unknown Epogen 52847Rdeb/ML Solution every two weeks Unknown Rosuvastatin Calcium [...] MD 08/14/2020 Enzo 6 Months 45MG Injection [place] Nurse 02/03/2020 Enzo 6 Months 45MG Injection [...] Total W/Reflex 08/14/2020 [facility] [address] [place] [address] [phone] Total PSA only <0.04 ng/mL 0.00-4.00 Hepatic Function Panel 08/14/2020 [facility] [address] [place] [address] [phone] Albumin 4.5 g/dL 3.2-4.6 Alk Phos 121.0 U/L High 45.0-117.0 Alt 13.0 U/L 0.0-55.0 Ast 15.0 U/L 11.0-39.0 Total Protien 7.1 g/dL 6.4-8.3 DBili 0.16 mg/dL 0.00-0.50 TBili 0.3 mg/dL 0.0-1.2 Globulin 2.6 Laboratory test finding 08/14/2020 [facility] [address] [place] [address] [phone] Testosterone 16.61 ng/dL Low 300.00-1000.00 230 Ua Routine 08/14/2020 [facility] REF TO ADDRESS ON ORDER FOR (070)- - Ua Glucose Negative Ua Protein Trace Ua Nitrite Negative Ua Leuko Negative Ua Blood Trace-intact Ua Color Not Entered Ua Ketones Negative Ua Clarity Not Entered Ua Specific [place] 1.015 1.003-1.030 Ua PH 5.0 5.0-7.5 Ua Bilirubin Negative Ua Urobilinogen 0.2 E.U./dL 0.0-1.0 CBC W/Diff 08/10/2020 Outside Facility (401)- - Hematocrit 33.8 Low 42-52 CMP 08/10/2020 Outside Facility (315)- - BUN - Urea Nitrogen 70 High 9-23 Creatinine 3.0 High 0.5-1.1 Testosterone Free & Total 05/10/2020 [facility] FX# [id number] [phone] Testosterone,Total @ 10 ng/dL Low (87-780) 1 Testo, Free 2 pg/mL Low (47-244) 2 Testo, Percent Free 2.0 % (1.6-2.9) Sex Horm Bind Glob @ 27 nmol/L (22-113) 3 PSA Total W/Reflex Free 05/10/2020 Laboratory [facility] FX# [id number] [phone] PSA Total 0.1 ng/mL (0.0-4.0) 4 Hepatic Function 05/10/2020 Laboratory [facility] FX# [id number] [phone] Total Protein 7.2 g/dL (6.4-8.2) Albumin 4.2 g/dL (3.2-4.5) Globulin 3.0 g/dL (2.7-4.3) Alb/Glob Ratio 1.4 RATIO Bilirubin,Total 0.3 mg/dL (0.0-1.0) 5 Bilirubin,Conjugated 0.1 mg/dL (0.0-0.3) Bilirubin,Unconj. 0.2 mg/dL (0.0-0.7) Alkaline Phosphatase 142 U/L High (45-117) Ast (Sgot) 15 U/L (11-39) Alt (SGPT) 16 U/L (12-78) 230 Ua Routine 05/10/2020 [facility] REF TO ADDRESS ON ORDER FOR (048)- - Ua Glucose Negative Ua Protein Negative Ua Nitrite Negative Ua Leuko Negative Ua Blood Trace-lysed Ua Color Not Entered Ua Ketones Negative Ua Clarity Not Entered Ua Specific [place] 1.015 1.003-1.030 Ua PH 5.5 5.0-7.5 Ua [...] OR ABSENCE OF MALIGNANT DISEASE. METHOD IS [employer] CHEMILUMINESCENT IMMUNOASSAY (CALIBRATION TRACEABLE TO WHO , 1998,96/668). VALUES OBTAINED WITH DIFFERENT ASSAY METHODS OR KITS CANNOT BE USED INTERCHANGEABLY. 5 PLEASE NOTE: Total bilirubin results may be falsely elevated in patients taking Eltrombopag. Procedures Date Code Description Status 08/14/2020 08547 Chemotherapy Injection; Hormonal Anti-Neoplastic Completed 05/10/2020 21310 Bladder Scan, Post Voiding Resid ual Urine Completed 05/10/2020 05551 Urodynamics, Complex Uroflowmetry Eg Calibrated Electronic Office Completed 08/11/2015 [id number] Colonoscopy Completed Medical Devices Description No Information Available Encounters Type Date Location Provider Dx Diagnosis Office Visit 08/14/2020 1:40p 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 Weir, patient's hematology/oncology physician Functional Status Description No Information Available Mental Status Description No Information Available Referrals Refer to Reason for Referral Status Appt Date Tray Vazquez M.D. Eligard Created [facility] Urology [address] [place], [place] [id number] [phone]
--- OUTSIDE RECORDS SUMMARY | 2020-09-06 20:01 | CCD | Continuity of Care Document ---
Author Author Lasha SAMPSON MD Organization Unknown Address [address] [place] [address] Phone [phone] Care Team Providers Care Inspector Watch Assembly Name Role Phone Karl Weir M.D. AUTM [phone] Tono Guardado MD AUTM [phone] Problems Active Problems Provider Date Microscopic hematuria [...] Nebulizer Unknown Calcitriol 0.25mcg Capsules Unknown Epogen 11629Axty/ML Solution every two weeks Unknown Rosuvastatin Calcium [...] MD 08/14/2020 Enzo 6 Months 45MG Injection [place] Nurse 02/03/2020 Enzo 6 Months 45MG Injection [...] finding 08/14/2020 [facility] [address] [place] [address] [phone] Testosterone <pending> 230 Ua Routine 08/14/2020 [facility] REF TO DR ADDRESS ON ORDER FOR (765)- - Ua Glucose Negative Ua Protein Trace Ua Nitrite Negative Ua Leuko Negative Ua Blood Trace-intact Ua Color Not Entered Ua Ketones Negative Ua Clarity Not Entered Ua Specific [place] 1.015 1.003-1.030 Ua PH 5.0 5.0-7.5 Ua Bilirubin Negative Ua Urobilinogen 0.2 E.U./dL 0.0-1.0 Testosterone Free & Total 05/10/2020 [facility] FX# [id number] [phone] Testosterone,Total @ 10 ng/dL Low (87-780) 1 Testo, Free 2 pg/mL Low (47-244) 2 Testo, Percent Free 2.0 % (1.6-2.9) Sex Horm Bind Glob @ 27 nmol/L (22-113) 3 PSA Total W/Reflex Free 05/10/2020 Laboratory [facility] FX# [id number] [phone] PSA Total 0.1 ng/mL (0.0-4.0) 4 Hepatic Function 05/10/2020 Laboratory [place] [facility] FX# [id number] [phone] Total Protein 7.2 g/dL (6.4-8.2) Albumin 4.2 [...] Negative Ua Clarity Not Entered Ua Specific [place] 1.015 1.003-1.030 Ua PH 5.5 5.0-7.5 Ua [...] OR ABSENCE OF MALIGNANT DISEASE. METHOD IS [employer] CHEMILUMINESCENT IMMUNOASSAY (CALIBRATION TRACEABLE TO WHO 1ST IS, 1998,96/668). VALUES OBTAINED WITH DIFFERENT ASSAY METHODS OR KITS CANNOT BE USED INTERCHANGEABLY. 5 PLEASE NOTE: Total bilirubin results may be falsely elevated in patients taking Eltrombopag. Procedures Date Code Description Status 08/14/2020 27195 Chemotherapy Injection; Hormonal Anti-Neoplastic Completed 05/10/2020 45830 Bladder Scan, Post Voiding Resid ual Urine Completed 05/10/2020 05255 Urodynamics, Complex Uroflowmetry Eg Calibrated Electronic Office Completed 08/11/2015 [id number] Colonoscopy Completed Medical Devices Description No Information Available Encounters Type Date Location Provider Dx Diagnosis Office Visit 08/14/2020 1:40p 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 Weir, patient's hematology/oncology physician Functional Status Description No Information Available Mental Status Description No Information Available Referrals Refer to Reason for Referral Status Appt Date Tray Sampson M.D. [facility] Urology [address] [place] [address] [phone]
--- OUTSIDE RECORDS SUMMARY | 2020-09-06 20:01 | CCD | Continuity of Care Document ---
Author Author Lasha SAMPSON MD Organization Unknown Address [address] [place] [id number] Phone [phone] Care Team Providers Care Information Services Vice President Name Role Phone Karl Weir M.D. AUTM [phone] Tono Guardado MD AUTM [phone] Problems Active Problems Provider Date Microscopic hematuria [...] Nebulizer Unknown Calcitriol 0.25mcg Capsules Unknown Epogen 07524Enut/ML Solution every two weeks Unknown Rosuvastatin Calcium [...] MD 08/14/2020 [facility] 6 Months 45MG Injection MD Nurse 02/03/2020 Enzo 6 Months 45MG Injection [...] Total W/Reflex 08/14/2020 [facility] [address] [place] [phone] Total PSA only <0.04 ng/mL 0.00-4.00 Hepatic Function Panel 08/14/2020 [facility] [address] [place] [phone] Albumin 4.5 g/dL 3.2-4.6 Alk Phos 121.0 U/L High 45.0-117.0 Alt 13.0 U/L 0.0-55.0 Ast 15.0 U/L 11.0-39.0 Total Protien 7.1 g/dL 6.4-8.3 DBili 0.16 mg/dL 0.00-0.50 TBili 0.3 mg/dL 0.0-1.2 Globulin 2.6 Laboratory test finding 08/14/2020 [facility] [address] [place] [phone] Testosterone 16.61 ng/dL Low 300.00-1000.00 230 Ua Routine 08/14/2020 [facility] REF TO DR ADDRESS ON ORDER FOR (102)- - Ua Glucose Negative Ua Protein Trace Ua Nitrite Negative Ua Leuko Negative Ua Blood Trace-intact Ua Color Not Entered Ua Ketones Negative Ua Clarity Not Entered Ua Specific [place] 1.015 1.003-1.030 Ua PH 5.0 5.0-7.5 Ua Bilirubin Negative Ua Urobilinogen 0.2 E.U./dL 0.0-1.0 CBC W/Diff 08/10/2020 Outside Facility (306)- - Hematocrit 33.8 Low 42-52 CMP 08/10/2020 Outside Facility (315)- - BUN - Urea Nitrogen 70 High 9-23 Creatinine 3.0 High 0.5-1.1 Testosterone Free & Total 05[facility]10[facility]2020 [phone] Testosterone,Total @ 10 ng/dL Low (87-780) 1 Testo, Free 2 pg/mL Low (47-244) 2 Testo, Percent Free 2.0 % (1.6-2.9) Sex Horm Bind Glob @ 27 nmol/L (22-113) 3 PSA Total W/Reflex Free 05/10/2020 [facility] FX# [id number] [phone] PSA Total 0.1 ng/mL (0.0-4.0) 4 Hepatic Function 05/10/2020 [facility] FX# [id number] [phone] Total Protein 7.2 g/dL (6.4-8.2) Albumin 4.2 g/dL (3.2-4.5) Globulin 3.0 g/dL (2.7-4.3) Alb/Glob Ratio 1.4 RATIO Bilirubin,Total 0.3 mg/dL (0.0-1.0) 5 Bilirubin,Conjugated 0.1 mg/dL (0.0-0.3) Bilirubin,Unconj. 0.2 mg/dL (0.0-0.7) Alkaline Phosphatase 142 U/L High (45-117) Ast (Sgot) 15 U/L (11-39) Alt (SGPT) 16 U/L (12-78) 230 Ua Routine 05/10/2020 [facility] REF TO ADDRESS ON ORDER FOR (978)- - Ua Glucose Negative Ua Protein Negative Ua Nitrite Negative Ua Leuko Negative Ua Blood Trace-lysed Ua Color Not Entered Ua Ketones Negative Ua Clarity Not Entered Ua Specific [place] 1.015 1.003-1.030 Ua PH 5.5 5.0-7.5 Ua [...] ABSENCE OF MALIGNANT DISEASE. METHOD IS SIEMENS CmedTA LOCI CHEMILUMINESCENT IMMUNOASSAY (CALIBRATION TRACEABLE TO WHO 1ST , 1998,96/668). VALUES OBTAINED WITH DIFFERENT ASSAY METHODS OR KITS CANNOT BE USED INTERCHANGEABLY. 5 PLEASE NOTE: Total bilirubin results may be falsely elevated in patients taking Eltrombopag. Procedures Date Code Description Status 08/14/2020 96660 Chemotherapy Injection; Hormonal Anti-Neoplastic Completed 05/10/2020 85422 Bladder Scan, Post Voiding Resid ual Urine Completed 05/10/2020 49766 Urodynamics, Complex Uroflowmetry Eg Calibrated Electronic Office Completed 08/11/2015 29198304 Colonoscopy Completed Medical Devices Description No Information [...] MD 08/14/2020 E89.5 Postprocedural testicular hypofu nction Benrardo Matthews MD 08/14/2020 C61 Malignant neoplasm of [...] 1:20 pm - Tray Sampson MD at [facility] 08/14/2020 - Tray Sampson MD* [...] PCP; get records from recent hospitalization from [facility]; get last note from Dr. Weir, patient's hematology/oncology physician Functional Status Description No Information Available Mental Status Description No Information Available Referrals Refer to Reason for Referral Status Appt Date Tray Sampson M.D. Eligard Created [facility] [address] [place] [phone]
--- OUTSIDE RECORDS SUMMARY | 2020-09-06 20:02 | CCD | Continuity of Care Document ---
Author Author [facility] Address [address] [place] [address] Phone Support Name Relationship Address Phone Kaz Cid PRS [address] [place] [address] Julian Herrera PRS [address] [place] [address] Tono Guardado PRS [address] [place] [address] Lillian Vazquez PRS [address] [place] [address] Tara Osborne PRS [address] [place] [address] ClintonRiki sanz PRS [address] [place] [address] [place] [address] Kyaw Richardson PRS [address] [place] [address] Evan De Oliveira PRS [address] [place] [address] Carlos Drummond PRS [address] [place] [address] Sandhya Weir PRS [address] [place] [address] Carlos Galvin PRS [address] [place] [address] Shekhar Louis PRS [address] [place] [address] Allergies, Adverse Reactions, Alerts No known allergies. [...] 5 MG PO Once Per Day 90 March 08, 2020 9:11am TAKE ONE TABLET BY MOUTH EVERY DAY Allopurinol Active 100 MG PO Once Per Day 90 March 08, 2020 9:11am TAKE ONE TABLET [...] TOP 2 to 4 times per day 30 May 16, 2020 9:42am Aspirin Discontinued 325 MG PO Once Per [...] 2016 2:14pm March 19, 2016 10:21am Aa 8-Oixz-Wrohl-Pe Ell-Hrb 126 (Gabadone Capsule) [id number] mg capsule Discontinued 300 MG PO Once [...] Discontinued 5 MG PO Once Per Day July 25, [...] Discontinued 1 CAP PO Once Per Day June 05, 2016 9:02am March 20, 2017 10:54am Aspirin Discontinued 81 MG PO Once Per Day June 05, 2016 9:02am December 09, 2018 5:27am Aspirin Active 81 MG PO Once Per Day June 05, 2016 9:02am Pravastatin Discontinued 1 [...] 2 SPRAYS NS 2 Times Per Day September 26, 2016 2:44pm May 192016 3:52pm Doxycycline Monohydrate Discontinued 100 MG PO 2 Times Per Day September 27, 2016 6:40pm November 07, 2016 1:43pm Zoster Vaccine Live (Pf) (Zostavax Vial) [id number] UNIT/0.65 ML suspension for reconstitution Discontinued [id number] UNIT SQ ONE TIME October 31, 2016 6:22am November 07, 2016 1:43pm Warfarin Discontinued 2 MG PO 2 Times Per Day November 07, 2016 2:15pm February [...] PO Once Per Day February 18, 2017 11:20am January 08, 2018 3:24pm Pravastatin Discontinued 1 TAB PO At Bedtime 90 February 20, 2017 1:54pm January 08, 2018 3:24pm Warfarin Discontinued 2 MG PO 2 Times Per Day 60 February 20, 2017 1:54pm June 22, 2017 2:26pm Warfarin Discontinued 5 MG PO Once Per Day 30 February 20, 2017 1:54pm December 26, 2017 11:40am Folic Acid Discontinued 1 TAB PO Once Per Day February 20, 2017 1:54pm March 16, 2018 [...] 2017 6:38am May 29, 2017 12:08pm Ipratropium Pomerene Discontinued 2 SPRAYS NA 2 Times Per Da y May 19, 2017 3: 52pm December 09, 2018 6:03am Ipratropium Pomerene Discontinued 2 SPRAYS NA 2 Times Per Da y May 19, 2017 3: 52pm December 09, 2019 7:50am Pneumoc 13-Anna Conj-Dip Cr(Pf) (Prevnar 13*) 0.5 ML sy ringe Discontinued 0.5 ML IM ONE TIME May 19, 2017 4:09pm May 4:13pm Flu Vaccine [id number](5 Yr Up) (Afluria 2033-1902) 45 MCG/0.5 ML suspension Discontinued 45 MCG [...] MG PO 2 Times Per Day June 22, 2017 2:pm December 26, 2017 11:40am Lisinopril Discontinued 5 [...] 5 MG PO Once Per Day January 14, 2018 5:08pm February 10, 2018 [...] 5 MG PO Once Per Day 30 March 11, 2018 12:19pm April 08, 2018 [...] PO Once Per Day May 19, 2018 8:April 20, 2019 9:45am Lisinopril Discontinued 5 MG PO Once Per Day May 19, 2018 8:21am June 15, 2018 7:20am Colchicine (Colcrys) 0.6 MG tablet D iscontinued 0.6 MG PO 2 Times Per Day May 19, 2018 8:am December 09, 2018 7:53am Colchicine (Colcrys) 0.6 [...] PO Once Per Day June 15, 2018 7:am December 28, 2018 1:10pm Ferrous Gluconate Discontinued 1 TAB PO Once Per Day June 15, 2018 7:20am December 09, 2018 8:09am Ferrous Gluconate Discontinued 1 TAB PO Once Per Day 30 June 15, 2018 7:20am December 28, 2018 [...] DAY Ferrous Gluconate Discontinued 0 .ROUTE .COMPLEX December 28, 2018 1:12pm December 09, 2019 9:01am TAKE ONE TABLET BY MOUTH EVERY DAY Allopurinol Discontinued 0 .ROUTE .COMPLEX 90 December 28, 2018 1:13pm December 09, 2019 9:01am TAKE ONE TABLET BY MOUTH EVERY DAY Warfarin Discontinued 2.5 MG PO daily 90 February 10, 2019 11:38am October 20, 2019 9:33am Warfarin Discontinued 1 MG PO daily 90 February 10, 2019 11:41am October 20, 2019 [...] 40 MG PO 2 Times Per Day December 22, 2019 9:2 3am Warfarin Discontinued 3 MG PO daily December 24, 2019 9:56am February 10, 2020 10:25am Warfarin Discontinued 2 MG PO every other day January 24, 2020 3:32pm February 10, 2020 10:25am on odd numbered days Warfarin Active 3 MG PO daily February 10, 2020 10:23am 3 mg daily except friday and , 2mg on those days Warfarin Active 2 MG PO 2 Times Per Week February 10, 2020 10:25am on friday and only. Folic Acid Active 1 MG PO Once Per Day March 14, 2020 3:21pm Albuterol Sulfate Discontinued 2 INH IH Four Times a Day 8.5 June 14, 2020 5:41pm July 11, 2020 11:39am Problems Active Problems Medical Problem Onset Date Status Scabies Active Hypertension, essential, benign January 06, 2015 Active Chronic kidney disease, stage 4 (severe) Active Congestive heart failure (CHF) Active Atrial fibrillation Ac tive On warfarin therapy December 08, 2018 Active Hypercholesterolemia January 06, 2015 Active Diabetes mellitus type 2 in obese [facility] 2014 Active Adenocarcinoma of prostate Active Inactive/Resolved Problems Medical Problem Onset Date [...] 2013 Resolved Heart valve replaced R esolved Skin sensation disturbance July 25, 2014 Resolved [...] Performed Status Xray Chest One View August 09 020 3:40pm completed CT Head without contrast August 092019 6:24pm completed US Carotid art complete bilat Decemb er 2019 7:16pm completed US Echo complete August 10, 2020 10:01am active Respiratory Panel (PCR) August [address] Head without contrast January 23, 2020 3:47pm completed Xray Chest One View January 23, 2020 3:48pm completed Xray Chest One View December 09, 2019 9:19a m completed Xray Cervical spine complete October 092019 10:02am completed Xray Chest 2 view PA/LAT August 2:24pm completed Relevant Diagnostic Tests and/or Laboratory Data Laboratory Results Test Date/Time Result Interpretation Reference Range Result Comment Performing Site INR International Normalized Ratio J gabriella 2019 12:46pm 1.8 INR International Normalized Ratio arch 2019 8:42am 1.8 INR International Normalized Ratio arch 2019 2:59pm 2.0 INR International Normalized Ratio arch 2019 11:55am 1.7 INR International Normalized Ratio J anuary 2019 5:06pm 2.5 White Blood Count August 10 0 5:07am 5.0 10e3/uL 4.45-10.71 [facility], [address] [facility] [address] White Blood Count July 26 0 10:55am 5.1 10e3/uL 4.45-10.71 [facility], [address] [place] [address] White Blood Count January 23, 2020 3:25pm 5.4 10e3/uL 4.45-10.71 [facility], [address] [place] [address] White Blood Count December 09, 2019 8:50am 4.9 10e3/uL 4.45-10.71 [facility], [address] [place] [address] Red Blood Count August 10, 2020 5:07am 3.39 10e6/uL 4.3-6.1 [facility], [address] [place] [address] Red Blood Count July 26, 2020 10:55a m 3.50 10e6/uL 4.3-6.1 [facility], [address] [place] [address] Red Blood Count January 23, 2020 3:25pm 3.52 10e6/uL 4.3-6.1 [facility], [address] [place] [address] Red Blood Count December 09, 2019 8:50am 2.85 10e6/uL 4.3-6.1 [facility], [address] [place] [address] Hemoglobin August 10, 2020 5:07am 11.0 g/dL [facility], [address] [place] [address] Hemoglobin July 26, 2020 10:55am 11.3 g/dL [facility], [address] [place] [address] Hemoglobin January 23, 2020 3:25pm 11.7 g/dL [facility], [address] [place] [address] Hemoglobin December 09, 2019 8:50am 9.2 g/dL [facility], [address] [place] [address] Hematocrit August 10, 2020 5:07am 33.8 % 42-52 [facility], [address] [place] [address] Hematocrit July 26, 2020 10:55am 35.8 % 42-52 [facility], [address] [place] [address] Hematocrit January 23, 2020 3:25pm 34.6 % 42-52 [facility], [address] [place] [address] Hematocrit December 09, 2019 8:50am 26.3 % 42-52 [facility], [address] [place] [address] 88100 Mean Corpuscular Volume July 5:07am 99.[address] [facility], [address] [place] [address] 52299 Mean Corpuscular Volume July 10:55am 102.[address] [place] [address] LABORATORY, [address] [place] [address] 72383 Mean Corpuscular Volume January 22, 3:25pm 98.[address] [place] [address] LABORATORY, [address] [place] [address] 52360 Mean Corpuscular Volume December 09, 2019 8:50am 92.3 fl [facility], [address] [place] [address] 95021 Mean Corpuscular Hemoglobin August 10, 2020 5:07am 32.4 pg 27-31 [facility], [address] [place] [address] 19365 Mean Corpuscular Hemoglobin July 26, 2020 10:55am 32.3 pg 27-31 [facility], [address] [place] [address] 57120 Mean Corpuscular Hemoglobin January 3:25pm 33.2 pg 27-31 [facility], [address] [place] [address] 96697 Mean Corpuscular Hemoglobin December 082019 8:50am 32.3 pg 27-31 [facility], [address] [place] [address] 64458 Mean Corpuscular Hemoglobin Concent August 10, 2020 5:07am 32.5 g/dl 33-37 [facility], [address] [place] [address] 14741 Mean Corpuscular Hemoglobin Concent July 26, 2020 10:55am 31.6 g/dl 33-37 [facility], [address] [place] [address] 23263 Mean Corpuscular Hemoglobin Concent January 23, 2020 3:25pm 33.8 g/dl 33-37 [facility], [address] [place] [address] 54174 Mean Corpuscular Hemoglobin Concent December 09, 2019 8:50am 35.0 g/dl 33-37 [facility], [address] [place] [address] 05192 Red Cell Distribution Width August 10, 2020 5:07am 14 % 11-15 [facility], [address] [place] [address] Red Cell Distribution Width July 26, 2020 10:55am 17 % 11-15 [facility], [address] [place] [address] Red Cell Distribution Width January 3:25pm 15 % 11-15 [facility], [address] [place] [address] Red Cell Distribution Width December 082019 8:50am 15 % 11-15 [facility], [address] [place] [address] Platelet Count August 10, 2020 5:07am 130 10e3/ul 130-472 [facility], [address] [place] [address] Platelet Count July 26, 2020 10:55am 147 10e3/ul 130-472 [facility], [address] [place] [address] Platelet Count January 23, 2020 3:25pm 127 10e3/ul 130-472 [facility], [address] [place] [address] Platelet Count December 09, 2019 8:50am 123 10e3/ul 130-472 [facility], [address] [place] [address] Mean Platelet Volume August 10, 2020 5:07am 10.9 fl 9.1-13.1 [facility], [address] [place] [address] Mean Platelet Volume July 26, 2020 10:55am 10.6 fl 9.1-13.1 [facility], [address] [place] [address] Mean Platelet Volume January 23, 2020 3:25p m 11.3 fl 9.1-13.1 [facility], [address] [place] [address] Mean Platelet Volume December 08 0 8:50am 10.8 fl 9.1-13.1 [facility], [address] [place] [address] Neutrophils (%) (Auto) July 5:07am 54.7 % [address] [place] [address] LABORATORY, [address] [place] [address] Neutrophils (%) (Auto) July 10:55am 60.8 % [address] [facility], [address] [place] [address] Neutrophils (%) (Auto) January 22 3:25pm 66.8 % 41-77 [facility], [address] [place] [address] 84276 Neutrophils (%) (Auto) December 08, 8:50am 62.0 % 41-77 [facility], [address] [place] [address] 70487 Absolute Neutrophil August 10 5:07am 2.8 # 1.7-7.6 [facility], [address] [place] [address] 62776 Absolute Neutrophil July 26 10:55am 3.1 # 1.7-7.6 [facility], [address] [place] [address] 81817 Absolute Neutrophil January 23, 2020 3:25pm 3.6 # 1.7-7.6 [facility], [address] [place] [address] 16124 Absolute Neutrophil December 09, 2019 8:50a m 3.0 # 1.7-7.6 [facility], [address] [place] [address] 96150 Lymphocytes (%) (Auto) July 5:07am 28.9 % 14-46 [facility], [address] [place] [address] 08473 Lymphocytes (%) (Auto) July 10:55am 23.7 % 14-46 [facility], [address] [place] [address] 24146 Lymphocytes (%) (Auto) January 22 3:25pm 18.8 % 14-46 [facility], [address] [place] [address] 46435 Lymphocytes (%) (Auto) December 08 8:50am 23.4 % 14-46 [facility], [address] [place] [address] 87133 Lymphocytes # (Auto) August 10, 2020 5:07am 1.5 # 0.6-4.6 [facility], [address] [place] [address] 18953 Lymphocytes # (Auto) July 26, 2020 10:55am 1.2 # 0.6-4.6 [facility], [address] [place] [address] 13997 Lymphocytes # (Auto) January 23, 2020 3:25p m 1.0 # 0.6-4.6 [facility], [address] [place] [address] 10938 Lymphocytes # (Auto) December 08 0 8:50am 1.1 # 0.6-4.6 [facility], [address] [place] [address] 96883 Monocytes (%) (Auto) August 10, 2020 5:07am 10.6 % 4-12 [facility], [address] [place] [address] 91718 Monocytes (%) (Auto) July 26, 2020 10:55am 10.2 % 4-12 [facility], [address] [place] [address] 68072 Monocytes (%) (Auto) January 23, 2020 3:25p m 9.9 % 4-12 [facility], [address] [place] [address] 95337 Monocytes (%) (Auto) December 08 0 8:50am 10.9 % 4-12 [facility], [address] [place] [address] 58425 Monocytes # August 10, 2020 5:07am 0.5 # 0.2-1.2 [facility], [address] [place] [address] 99047 Monocytes # July 26, 2020 10:55am 0.5 # 0.2-1.2 [facility], [address] [place] [address] 88364 Monocytes # January 23, 2020 3:25pm 0.5 # 0.2-1.2 [facility], [address] [place] [address] 60762 Monocytes # December 09, 2019 8:50am 0.5 # 0.2-1.2 [facility], [address] [place] [address] 71680 Eosinophils (%) (Auto) July 5:07am 4.8 % 0-7 [facility], [address] [place] [address] 81904 Eosinophils (%) (Auto) July 10:55am 4.3 % 0-7 [facility], [address] [place] [address] 05697 Eosinophils (%) (Auto) January 22 3:25pm 3.9 % 0-7 [facility], [address] [place] [address] 01374 Eosinophils (%) (Auto) December 08, 020 8:50am 2.9 % 0-7 [facility], [address] [place] [address] 04718 Absolute Eosinophils (CBC) August 10, 2020 5:07am 0.2 # 0.0-0.5 [facility], [address] [place] [address] Absolute Eosinophils (CBC) July 26, 2020 10:55am 0.2 # 0.0-0.5 [facility], [address] [place] [address] Absolute Eosinophils (CBC) January 3:25pm 0.2 # 0.0-0.5 [facility], [address] [place] [address] 83834 Absolute Eosinophils (CBC) November 8:50am 0.1 # 0.0-0.5 [facility], [address] [place] [address] 92629 Basophils (%) (Auto) August 10, 2020 5:07am 0.8 % 0.4-1.3 [facility], [address] [place] [address] 42966 Basophils (%) (Auto) July 26, 2020 10:55am 0.8 % 0.4-1.3 [facility], [address] [place] [address] Basophils (%) (Auto) January 23, 2020 3:25p m 0.6 % 0.4-1.3 [facility], [address] [place] [address] Basophils (%) (Auto) December 08 0 8:50am 0.4 % 0.4-1.3 [facility], [address] [place] [address] 42034 Absolute Basophils (CBC) August 102019 5:07am 0.0 # 0.0-0.2 [facility], [address] [place] [address] Absolute Basophils (CBC) July 262019 10:55am 0.0 # 0.0-0.2 [facility], [address] [place] [address] Absolute Basophils (CBC) January 23, 2020 3:25pm 0.0 # 0.0-0.2 [facility], [address] [place] [address] Absolute Basophils (CBC) December 09, 2019 8:50am 0.0 # 0.0-0.2 [facility], [address] [place] [address] 89067 Immature Granulocyte % (Auto) Dece 2019 5:07am 0.2 % 0-2 [facility], [address] [place] [address] 85361 Immature Granulocyte % (Auto) [facility] 2019 10:55am 0.2 % 0-2 [facility], [address] [place] [address] 37689 Immature Granulocyte % (Auto) January 092019 3:25pm 0.0 % 0-2 [facility], [address] [place] [address] 57548 Immature Granulocyte % (Auto) December 09, 2019 8:50am 0.4 % 0-2 [facility], [address] [place] [address] 21756 Absolute Immature Granulocyte (auto August 10, 2020 5:07am 0.0 # 0-0.1 [facility], [address] [place] [address] 32186 Absolute Immature Granulocyte (auto July 26, 2020 10:55am 0.0 # 0-0.1 [facility], [address] [place] [address] 07269 Absolute Immature Granulocyte (auto January 23, 2020 3:25pm 0.0 # 0-0.1 [facility], [address] [place] [address] 42946 Absolute Immature Granulocyte (auto December 09, 2019 8:50am 0.0 # 0-0.1 [facility], [address] [place] [address] 98891 Add Manual Differential July 5:07am No [facility], [address] [place] [address] 13313 Add Manual Differential July 10:55am No [facility], [address] [place] [address] 04032 Add Manual Differential January 22 020 3:25pm No [facility], [address] [place] [address] 35747 Add Manual Differential December 09, 2019 8:50am No [facility], [address] [place] [address] 68158 Prothrombin Time August 10, 2020 4:55p m 21.6 SECONDS 9.6-12.3 [facility], [address] [place] [address] 81958 Prothrombin Time July 07, 2020 9:27a m 25.6 SECONDS 9.6-12.3 [facility], [address] [place] [address] 37237 Prothrombin Time June 30, 2020 11:25am 39.2 SECONDS 9.6-12.3 [facility], [address] [place] [address] 39266 Prothrombin Time June 23, 2020 9:40a m 34.0 SECONDS 9.6-12.3 [facility], [address] [place] [address] Prothrombin Time May 23, 2020 8:56am 25.7 SECONDS 9.6-12.3 [facility], [address] [place] [address] Prothrombin Time May 12, 2020 6:26am 32.4 SECONDS 9.6-12.3 [facility], [address] [place] [address] 19814 Prothrombin Time March 31, 2020 6:17am 25.2 SECONDS 9.6-12.3 [facility], [address] [place] [address] 59240 Prothrombin Time March 08, 2020 9:37am 22.5 SECONDS 9.6-12.3 [facility], [address] [place] [address] 28914 Prothrombin Time February 28, 2020 6:27am 29.5 SECONDS 9.6-12.3 [facility], [address] [place] [address] Prothrombin Time February 18, 2020 11:47am 16.9 SECONDS 9.6-12.3 [facility], [address] [place] [address] 07226 Prothrombin Time February 10, 2020 9:13am 18.7 SECONDS 9.6-12.3 [facility], [address] [place] [address] Prothrombin Time January 23, 2020 3:25pm 24.4 SECONDS 9.6-12.3 [facility], [address] [place] [address] 31743 Prothrombin Time January 21, 2020 6:17am 22.3 SECONDS 9.6-12.3 [facility], [address] [place] [address] 87024 Prothrombin Time January 14, 2020 6:12am 37.7 SECONDS 9.6-12.3 [facility], [address] [place] [address] 86279 Prothrombin Time January 07, 2020 8:35am 26.5 SECONDS 9.6-12.3 [facility], [address] [place] [address] 76088 Prothrombin Time January 06, 2020 8:35am 40.3 SECONDS 9.6-12.3 [facility], [address] [place] [address] Prothrombin Time December 30, 2019 8:30am 31.9 SECONDS 9.6-12.3 [facility], [address] [place] [address] Prothrombin Time December 27, 2019 8:40am 26.4 SECONDS 9.6-12.3 [facility], [address] [place] [address] Prothrombin Time December 24, 2019 8:35am 25.7 SECONDS 9.6-12.3 [facility], [address] [place] [address] Prothrombin Time December 23, 2019 8:18am 41.9 SECONDS 9.6-12.3 [facility], [address] [place] [address] 83146 Prothrombin Time December 22, 2019 7:56am 78.2 SECONDS 9.6-12.3 [facility], [address] [place] [address] 24256 Prothrombin Time December 15, 2019 8:17am 28.9 SECONDS 9.6-12.3 [facility], [address] [place] [address] 25185 Prothrombin Time December 13, 2019 7:19am 17.0 SECONDS 9.6-12.3 [facility], [address] [place] [address] 51995 Prothrombin Time December 06, 2019 8:34am 13.2 SECONDS 9.6-12.3 [facility], [address] [place] [address] 45308 Prothrombin Time December 01, 2019 8:30am 39.8 SECONDS 9.6-12.3 [facility], [address] [place] [address] 52762 Prothrombin Time November 26, 2019 8:55am 19.1 SECONDS 9.6-12.3 [facility], [address] [place] [address] [id number] Prothrombin Time November 23, 2019 6:12am 16.2 SECONDS 9.6-12.3 [facility], [address] [place] [address] [id number] Prothrombin Time November 09, 2019 6:02am 18.2 SECONDS 9.6-12.3 [facility], [address] [place] [address] [id number] Prothrombin Time October 19, 2019 6:15am 19.8 SECONDS 9.6-12.3 [facility], [address] [place] [address] [id number] Prothrombin Time October 12, 2019 7:21am 16.7 SECONDS 9.6-12.3 [facility], [address] [place] [address] [id number] Prothrombin Time September 14, 2019 7:20am 21.6 SECONDS 9.6-12.3 [facility], [address] [place] [address] [id number] Prothrombin Time September 02, 2019 11:25a m 23.9 SECONDS 9.6-12.3 [facility], [address] [place] [address] [id number] Prothrombin Time August 31, 2019 7:00am 29.2 SECONDS 9.6-12.3 [facility], [address] [place] [address] [id number] Prothrombin Time August 13, 2019 2:28pm 27.2 SECONDS 9.6-12.3 [facility], [address] [place] [address] [id number] INR International Normalized Ratio D ec2019 4:55pm 2.1 0.9-1.1 THE INR IS OPERATIONALLY DEFINED FOR PIPPA SH PLASMA FROMPATIENTS STABILIZED ON ORAL ANTICOAGULANTS. ROUTINE ANTICOAGULANT THERAPY 2.0-3.0RECURRENT SYSTEMIC EMBOLISM/HEART VALVE REPLACEMENT 2.5-3.5 [facility], [address] [place] [address] INR International Normalized Ratio N ovember 2019 9:27am 2.5 0.9-1.1 THE INR IS OPERATIONALLY DEFINED FOR PIPPA SH PLASMA FROMPATIENTS STABILIZED ON ORAL ANTICOAGULANTS. ROUTINE ANTICOAGULANT THERAPY 2.0-3.0RECURRENT SYSTEMIC EMBOLISM/HEART VALVE REPLACEMENT 2.5-3.5 [facility], [address] [place] [address] INR International Normalized Ratio N ov2019 11:25am 3.9 0.9-1.1 THE INR IS OPERATIONALLY DEFINED FOR PIPPA SH PLASMA FROMPATIENTS STABILIZED ON ORAL ANTICOAGULANTS. ROUTINE ANTICOAGULANT THERAPY 2.0-3.0RECURRENT SYSTEMIC EMBOLISM/HEART VALVE REPLACEMENT 2.5-3.5 [facility], [address] [place] [address] [id number] INR International Normalized Ratio N ovember 2019 9:40am 3.4 0.9-1.1 THE INR IS OPERATIONALLY DEFINED FOR PIPPA SH PLASMA FROMPATIENTS STABILIZED ON ORAL ANTICOAGULANTS. ROUTINE ANTICOAGULANT THERAPY 2.0-3.0RECURRENT SYSTEMIC EMBOLISM/HEART VALVE REPLACEMENT 2.5-3.5 [facility], [address] [place] [address] [id number] INR International Normalized Ratio O ctober 2019 8:56am 2.5 0.9-1.1 THE INR IS OPERATIONALLY DEFINED FOR PIPPA SH PLASMA FROMPATIENTS STABILIZED ON ORAL ANTICOAGULANTS. ROUTINE ANTICOAGULANT THERAPY 2.0-3.0RECURRENT SYSTEMIC EMBOLISM/HEART VALVE REPLACEMENT 2.5-3.5 [facility], [address] [place] [address] INR International Normalized Ratio O ctober 2019 6:26am 3.2 0.9-1.1 THE INR IS OPERATIONALLY DEFINED FOR PIPPA SH PLASMA FROMPATIENTS STABILIZED ON ORAL ANTICOAGULANTS. ROUTINE ANTICOAGULANT THERAPY 2.0-3.0RECURRENT SYSTEMIC EMBOLISM/HEART VALVE REPLACEMENT 2.5-3.5 [facility], [address] [place] [address] INR International Normalized Ratio A ugust 2019 6:17am 2.5 0.9-1.1 THE INR IS OPERATIONALLY DEFINED FOR PIPPA SH PLASMA FROMPATIENTS STABILIZED ON ORAL ANTICOAGULANTS. ROUTINE ANTICOAGULANT THERAPY 2.0-3.0RECURRENT SYSTEMIC EMBOLISM/HEART VALVE REPLACEMENT 2.5-3.5 [facility], [address] [place] [address] INR International Normalized Ratio J gabriella 2019 9:37am 2.2 0.9-1.1 THE INR IS OPERATIONALLY DEFINED FOR PIPPA SH PLASMA FROMPATIENTS STABILIZED ON ORAL ANTICOAGULANTS. ROUTINE ANTICOAGULANT THERAPY 2.0-3.0RECURRENT SYSTEMIC EMBOLISM/HEART VALVE REPLACEMENT 2.5-3.5 [facility], [address] [place] [address] [id number] INR International Normalized Ratio J gabriella 2019 6:27am 2.9 0.9-1.1 THE INR IS OPERATIONALLY DEFINED FOR PIPPA SH PLASMA FROMPATIENTS STABILIZED ON ORAL ANTICOAGULANTS. ROUTINE ANTICOAGULANT THERAPY 2.0-3.0RECURRENT SYSTEMIC EMBOLISM/HEART VALVE REPLACEMENT 2.5-3.5 [facility], [address] [place] [address] [id number] INR International Normalized Ratio J gabriella 2019 11:47am 1.6 0.9-1.1 THE INR IS OPERATIONALLY DEFINED FOR PIPPA SH PLASMA FROMPATIENTS STABILIZED ON ORAL ANTICOAGULANTS. ROUTINE ANTICOAGULANT THERAPY 2.0-3.0RECURRENT SYSTEMIC EMBOLISM/HEART VALVE REPLACEMENT 2.5-3.5 [facility], [address] [place] [address] [id number] INR International Normalized Ratio J gabriella 2019 9:13am 1.8 0.9-1.1 THE INR IS OPERATIONALLY DEFINED FOR FRESH PLASMA FROMPATIENTS STABILIZED ON ORAL ANTICOAGULANTS. ROUTINE ANTICOAGULANT THERAPY 2.0-3.0RECURRENT SYSTEMIC EMBOLISM/HEART VALVE REPLACEMENT 2.5-3.5 [facility], [address] [place] [address] [id number] INR International Normalized Ratio J une 2019 3:25pm 2.5 0.9-1.1 THE INR IS OPERATIONALLY DEFINED FOR PIPPA SH PLASMA FROMPATIENTS STABILIZED ON ORAL ANTICOAGULANTS. ROUTINE ANTICOAGULANT THERAPY 2.0-3.0RECURRENT SYSTEMIC EMBOLISM/HEART VALVE REPLACEMENT 2.5-3.5 [facility], [address] [place] [address] 67129 INR International Normalized Ratio J [facility] 2019 6:17am 2.3 0.9-1.1 THE INR IS OPERATIONALLY DEFINED FOR PIPPA SH PLASMA FROMPATIENTS STABILIZED ON ORAL ANTICOAGULANTS. ROUTINE ANTICOAGULANT THERAPY 2.0-3.0RECURRENT SYSTEMIC EMBOLISM/HEART VALVE REPLACEMENT 2.5-3.5 [facility], [address] [place] [address] 92446 INR International Normalized Ratio J [facility] 2019 6:12am 4.0 0.9-1.1 THE INR IS OPERATIONALLY DEFINED FOR FRESH PLASMA FROMPATIENTS STABILIZED ON ORAL ANTICOAGULANTS. ROUTINE ANTICOAGULANT THERAPY 2.0-3.0RECURRENT SYSTEMIC EMBOLISM/HEART VALVE REPLACEMENT 2.5-3.5 [facility], [address] [place] [address] 85207 INR International Normalized Ratio [facility] 2019 8:35am 2.8 0.9-1.1 THE INR IS OPERATIONALLY DEFINED FOR FRESH PLASMA FROMPATIENTS STABILIZED ON ORAL ANTICOAGULANTS. ROUTINE ANTICOAGULANT THERAPY 2.0-3.0RECURRENT SYSTEMIC EMBOLISM/HEART VALVE REPLACEMENT 2.5-3.5 [facility], [address] [place] [address] 18110 INR International Normalized Ratio M 2019 8:35am 4.3 0.9-1.1 THE INR IS OPERATIONALLY DEFINED FOR FRESH PLASMA FROMPATIENTS STABILIZED ON ORAL ANTICOAGULANTS. ROUTINE ANTICOAGULANT THERAPY 2.0-3.0RECURRENT SYSTEMIC EMBOLISM/HEART VALVE REPLACEMENT 2.5-3.5 [facility], [address] [place] [address] 35303 INR International Normalized Ratio M ay 2019 8:30am 3.4 0.9-1.1 THE INR IS OPERATIONALLY DEFINED FOR FRESH PLASMA FROMPATIENTS STABILIZED ON ORAL ANTICOAGULANTS. ROUTINE ANTICOAGULANT THERAPY 2.0-3.0RECURRENT SYSTEMIC EMBOLISM/HEART VALVE REPLACEMENT 2.5-3.5 [facility], [address] [place] [address] 33469 INR International Normalized Ratio M ay 2019 8:40am 2.7 0.9-1.1 THE INR IS OPERATIONALLY DEFINED FOR FRESH PLASMA FROMPATIENTS STABILIZED ON ORAL ANTICOAGULANTS. ROUTINE ANTICOAGULANT THERAPY 2.0-3.0RECURRENT SYSTEMIC EMBOLISM/HEART VALVE REPLACEMENT 2.5-3.5 [facility], [address] [place] [address] 61067 INR International Normalized Ratio M ay 2019 8:35am 2.7 0.9-1.1 THE INR IS OPERATIONALLY DEFINED FOR FRESH PLASMA FROMPATIENTS STABILIZED ON ORAL ANTICOAGULANTS. ROUTINE ANTICOAGULANT THERAPY 2.0-3.0RECURRENT SYSTEMIC EMBOLISM/HEART VALVE REPLACEMENT 2.5-3.5 [facility], [address] [place] [address] 95805 INR International Normalized Ratio M ay 2019 8:18am 4.5 0.9-1.1 THE INR IS OPERATIONALLY DEFINED FOR FRESH PLASMA FROMPATIENTS STABILIZED ON ORAL ANTICOAGULANTS. ROUTINE ANTICOAGULANT THERAPY 2.0-3.0RECURRENT SYSTEMIC EMBOLISM/HEART VALVE REPLACEMENT 2.5-3.5 [facility], [address] [place] [address] 53192 INR International Normalized Ratio M ay 2019 7:56am 8.8 0.9-1.1 Called to DRAKE ROCHE AT [facility] OFFICE @ 0979 by Iraj Garcia. Results read back. Repeated by: Iraj Garcia 12/22/19 0906.Result Confirmation:8.8THE INR IS OPERATIONALLY DEFINED FOR FRESH PLASMA FROMPATIENTS STABILIZED ON ORAL ANTICOAGULANTS. ROUTINE ANTICOAGULANT THERAPY 2.0-3.0RECURRENT SYSTEMIC EMBOLISM/HEART VALVE REPLACEMENT 2.5-3.5 [facility], [address] [place] [address] [id number] INR International Normalized Ratio M ay 2019 8:17am 3.0 0.9-1.1 THE INR IS OPERATIONALLY DEFINED FOR FRESH PLASMA FROMPATIENTS STABILIZED ON ORAL ANTICOAGULANTS. ROUTINE ANTICOAGULANT THERAPY 2.0-3.0RECURRENT SYSTEMIC EMBOLISM/HEART VALVE REPLACEMENT 2.5-3.5 [facility], [address] [place] [address] 21043 INR International Normalized Ratio M ay 2019 7:19am 1.7 0.9-1.1 THE INR IS OPERATIONALLY DEFINED FOR FRESH PLASMA FROMPATIENTS STABILIZED ON ORAL ANTICOAGULANTS. ROUTINE ANTICOAGULANT THERAPY 2.0-3.0RECURRENT SYSTEMIC EMBOLISM/HEART VALVE REPLACEMENT 2.5-3.5 [facility], [address] [place] [address] INR International Normalized Ratio A pril 2019 8:34am 1.3 0.9-1.1 THE INR IS OPERATIONALLY DEFINED FOR PIPPA SH PLASMA FROMPATIENTS STABILIZED ON ORAL ANTICOAGULANTS. ROUTINE ANTICOAGULANT THERAPY 2.0-3.0RECURRENT SYSTEMIC EMBOLISM/HEART VALVE REPLACEMENT 2.5-3.5 [facility], [address] [place] [address] INR International Normalized Ratio A pril 2019 8:30am 4.3 0.9-1.1 THE INR IS OPERATIONALLY DEFINED FOR PIPPA SH PLASMA FROMPATIENTS STABILIZED ON ORAL ANTICOAGULANTS. ROUTINE ANTICOAGULANT THERAPY 2.0-3.0RECURRENT SYSTEMIC EMBOLISM/HEART VALVE REPLACEMENT 2.5-3.5 [facility], [address] [place] [address] INR International Normalized Ratio A pril 2019 8:55am 1.9 0.9-1.1 THE INR IS OPERATIONALLY DEFINED FOR PIPPA SH PLASMA FROMPATIENTS STABILIZED ON ORAL ANTICOAGULANTS. ROUTINE ANTICOAGULANT THERAPY 2.0-3.0RECURRENT SYSTEMIC EMBOLISM/HEART VALVE REPLACEMENT 2.5-3.5 [facility], [address] [place] [address] INR International Normalized Ratio A pril 2019 6:12am 1.6 0.9-1.1 THE INR IS OPERATIONALLY DEFINED FOR PIPPA SH PLASMA FROMPATIENTS STABILIZED ON ORAL ANTICOAGULANTS. ROUTINE ANTICOAGULANT THERAPY 2.0-3.0RECURRENT SYSTEMIC EMBOLISM/HEART VALVE REPLACEMENT 2.5-3.5 [facility], [address] [place] [address] INR International Normalized Ratio M arch 2019 6:02am 1.8 0.9-1.1 THE INR IS OPERATIONALLY DEFINED FOR PIPPA SH PLASMA FROMPATIENTS STABILIZED ON ORAL ANTICOAGULANTS. ROUTINE ANTICOAGULANT THERAPY 2.0-3.0RECURRENT SYSTEMIC EMBOLISM/HEART VALVE REPLACEMENT 2.5-3.5 [facility], [address] [place] [address] INR International Normalized Ratio M arch 2019 6:15am 2.0 0.9-1.1 THE INR IS OPERATIONALLY DEFINED FOR PIPPA SH PLASMA FROMPATIENTS STABILIZED ON ORAL ANTICOAGULANTS. ROUTINE ANTICOAGULANT THERAPY 2.0-3.0RECURRENT SYSTEMIC EMBOLISM/HEART VALVE REPLACEMENT 2.5-3.5 [facility], [address] [place] [address] INR International Normalized Ratio M arch 2019 7:21am 1.7 0.9-1.1 THE INR IS OPERATIONALLY DEFINED FOR PIPPA SH PLASMA FROMPATIENTS STABILIZED ON ORAL ANTICOAGULANTS. ROUTINE ANTICOAGULANT THERAPY 2.0-3.0RECURRENT SYSTEMIC EMBOLISM/HEART VALVE REPLACEMENT 2.5-3.5 [facility], [address] [place], [place] [id number] INR International Normalized Ratio F ebruary 2019 7:20am 2.20 0.9-1.1 THE INR IS OPERATIONALLY DEFINED FOR PIPPA SH PLASMA FROMPATIENTS STABILIZED ON ORAL ANTICOAGULANTS. ROUTINE ANTICOAGULANT THERAPY 2.0-3.0RECURRENT SYSTEMIC EMBOLISM/HEART VALVE REPLACEMENT 2.5-3.5 [facility], [address] [place] [address] INR International Normalized Ratio J anuary 2019 11:25am 2.5 0.9-1.1 THE INR IS OPERATIONALLY DEFINED FOR PIPPA SH PLASMA FROMPATIENTS STABILIZED ON ORAL ANTICOAGULANTS. ROUTINE ANTICOAGULANT THERAPY 2.0-3.0RECURRENT SYSTEMIC EMBOLISM/HEART VALVE REPLACEMENT 2.5-3.5 [facility], [address] [place], [place] [address] INR International Normalized Ratio J anuary 2019 7:00am 3.1 0.9-1.1 THE INR IS OPERATIONALLY DEFINED FOR PIPPA SH PLASMA FROMPATIENTS STABILIZED ON ORAL ANTICOAGULANTS. ROUTINE ANTICOAGULANT THERAPY 2.0-3.0RECURRENT SYSTEMIC EMBOLISM/HEART VALVE REPLACEMENT 2.5-3.5 [facility], [address] [place], [place] [address] INR International Normalized Ratio J anuary 2019 2:28pm 2.8 0.9-1.1 THE INR IS OPERATIONALLY DEFINED FOR PIPPA SH PLASMA FROMPATIENTS STABILIZED ON ORAL ANTICOAGULANTS. ROUTINE ANTICOAGULANT THERAPY 2.0-3.0RECURRENT SYSTEMIC EMBOLISM/HEART VALVE REPLACEMENT 2.5-3.5 [facility], [address] [place] [address] 35893 Blood Urea Nitrogen August 10, 2 020 5:07am 70 mg/dL 05-03 [facility], [address] [place], [place] [address] Blood Urea Nitrogen January 23, 2020 3:25pm 73 mg/dL 05-03 [facility], [address] [place] [address] 86173 Blood Urea Nitrogen December 09, 2019 8:50a m 95 mg/dL 05-03 Called to KENNETH Nava @ 1024 by Maggie Clark. Results read back. Repeated by: Maggie Clark 12/09/19 1024.Result Confirmation: 98 mg/dL [facility], [address] [place] [address] 50584 Sodium Level August 10, 2020 5:07am 142 mmol/L 132-146 [facility], [address] [place] [address] 72733 Sodium Level January 23, 2020 3:25pm 139 mmol/L 132-146 [facility], [address] [place] [address] 46322 Sodium Level December 09, 2019 8:50am 139 mmol/L 132-146 [facility], [address] [place] [address] 95486 Potassium Level August 10, 2020 5:07am 4.1 mmol/L 3.5-5.5 [facility], [address] [place] [address] 99554 Potassium Level January 23, 2020 3:25pm 4.2 mmol/L 3.5-5.5 [facility], [address] [place] [address] 61572 Potassium Level December 09, 2019 8:50am 4.3 mmol/L 3.5-5.5 [facility], [address] [place] [address] 18445 Chloride Level August 10, 2020 5:07am 112 mmol/l 99-109 [facility], [address] [place] [address] 71864 Chloride Level January 23, 2020 3:25pm 109 mmol/l 99-109 [facility], [address] [place] [address] 29607 Chloride Level December 09, 2019 8:50am 113 mmol/l 99-109 [facility], [address] [place] [address] 62414 Carbon Dioxide Level August 10, 2020 5:07am 22 mmol/l [facility], [address] [place] [address] 54616 Carbon Dioxide Level January 23, 2020 3:25p m 19 mmol/l [facility], [address] [place] [address] 03359 Carbon Dioxide Level December 08 0 8:50am 16 mmol/l [facility], [address] [place] [address] Anion Gap August 10, 2020 5:07am 12 mmol/l 03-26 [facility], [address] [place] [address] Anion Gap January 23, 2020 3:25pm 15 mmol/l 03-26 [facility], [address] [place] [address] Anion Gap December 09, 2019 8:50am 14 mmol/l 03-26 [facility], [address] [place] [address] Glucose Level August 10, 2020 5:07am 98 mg/dL -106 [facility], [address] [place] [address] Glucose Level January 23, 2020 3:25pm 177 mg/dL -106 [facility], [address] [place] [address] Glucose Level December 09, 2019 8:50am 134 mg/dL -[address] [place] [address] LABORATORY, [address] [place] [address] Bedside Glucose August 10, 2020 5:04pm 125 70-110 WOOD PCX (POC GLUCOSE) Creatinine August 10, 2020 5:07am 3.0 mg/dL 0.5-1.1 [facility], [address] [place] [address] Creatinine January 23, 2020 3:25pm 3.0 mg/dL 0.5-1.1 [facility], [address] [place] [address] Creatinine December 09, 2019 8:50am 4.0 mg/dL 0.5-1.1 [facility], [address] [place] [address] Glomerular Filtration Rate Calc Dece mb2019 5:07am 20 ml/min ABOVE 60 [facility], [address] [place] [address] Glomerular Filtration Rate Calc January 23, 2020 3:25pm 20 ml/min ABOVE 60 [facility], [address] [place] [address] Glomerular Filtration Rate Calc Apri l 2019 8:50am 15 ml/min ABOVE 60 [facility], [address] [place] [address] Alanine Aminotransferase (ALT/SGPT) August 10, 2020 5:07am 13 U/L 49 [facility], [address] [place] [address] Alanine Aminotransferase (ALT/SGPT) January 23, 2020 3:25pm 17 U/L 49 [facility], [address] [place] [address] Alanine Aminotransferase (ALT/SGPT) December 09, 2019 8:50am 20 U/L 1049 [facility], [address] [place] [address] Aspartate Amino Transf (AST/SGOT) De cem2019 5:07am 18 U/L 0-33 [facility], [address] [place] [address] Aspartate Amino Transf (AST/SGOT) Ju ne 2019 3:25pm 16 U/L 0-33 [facility], [address] [place] [address] Aspartate Amino Transf (AST/SGOT) Ap ril 2019 8:50am 16 U/L 0-33 [facility], [address] [place] [address] Alkaline Phosphatase August 10, 2020 5:07am 121 U/L 45-129 [facility], [address] [place] [address] Alkaline Phosphatase January 23, 2020 3:25p m 119 U/L 45-129 [facility], [address] [place] [address] Alkaline Phosphatase December 08 0 8:50am 112 U/L 45-129 [facility], [address] [place] [address] Calcium Level August 10, 2020 5:07am 10.1 mg/dL 8.5-10.1 [facility], [address] [place] [address] Calcium Level January 23, 2020 3:25pm 9.8 mg/dL 8.5-10.1 [facility], [address] [place] [address] Calcium Level December 09, 2019 8:50am 9.8 mg/dL 8.5-10.1 [facility], [address] [place] [address] Total Bilirubin August 10, 2020 5:07am 0.2 mg/dL 0.3-1.2 [facility], [address] [place] [address] Total Bilirubin January 23, 2020 3:25pm 0.3 mg/dL 0.3-1.2 [facility], [address] [place] [address] Total Bilirubin December 09, 2019 8:50am 0.3 mg/dL 0.3-1.2 [facility], [address] [place] [address] Albumin August 10, 2020 5:07am 3.5 g/dL 3.2-4.8 [facility], [address] [place] [address] Albumin January 23, 2020 3:25pm 3.7 g/dL 3.2-4.8 [facility], [address] [place] [address] Albumin December 09, 2019 8:50am 3.9 g/dL 3.2-4.8 [facility], [address] [place] [address] Serum Total Protein August 10 020 5:07am 7.2 g/dL 5.7-8.2 [facility], [address] [place] [address] Serum Total Protein January 23, 2020 3:25pm 7.5 g/dL 5.7-8.2 [facility], [address] [place] [address] Serum Total Protein December 09, 2019 8:50a m 7.5 g/dL 5.7-8.2 [facility], [address] [place] [address] Iron Level December 09, 2019 8:51am 129 ug/dL 65-175 Iron values ma y be falsely elevated in serum samples frompatients treated with anticoagulants (e.g., hemodialysispatients) [facility], [address] [place] [address] Iron Saturation December 09, 2019 8:51am 38 20-55 [facility], [address] [place] [address] Total Iron Binding Capacity December 082019 8:51am 341 ug/dl 250-450 [facility], [address] [place] [address] Ferritin December 09, 2019 8:51am 432 ng/mL 22-322 [facility], [address] [place] [address] Troponin I August 10, 2020 5:07am Less than 0.015 ng/mL 0.00-0.09 Less than 0.09 NG/ML Negative0.10 - 0.77 NG/ML High Risk0.78 NG/ML or Greater Positive The WHO defined the cutoff (definition for diagnosis of MS)for this method as 0.78 ng/ml. [facility], [address] [place] [address] Troponin I December 09, 2019 8:50am Less than 0.015 ng/mL 0.00-0.09 Less than 0.09 NG/ML Negative0.10 - 0.77 NG/ML High Risk0.78 NG/ML or Greater Positive The WHO defined the cutoff (definition for diagnosis of MS)for this method as 0.78 ng/ml. [facility], [address] [place] [address] [id number] Thyroid Stimulating Hormone (TSH) De cember 2019 3:50pm 2.99 uIU/mL 0.35-5.50 [facility], [address] [place] [address] 59733 Testosterone Level November 09, 2019 6:02am 5 ng/dL Adult male reference interval is based on a population ofhealthy nonobese males (BMI <30) between 19 and 39 yearsold. tal Kelley.al. JCEM 2017,102;0159-6104. PMID:[id number]. [facility] [address] [phone] Free Testosterone November 09, 2019 6:02am 3.8 pg/mL Performed at: [facility] [place] [address] [id number] Director: Cecy Babin MD, Phone: [phone] [employer] , [address] [facility] [phone] Lyme Disease Ab Tot Immunoglobulins March 08, 2020 9:37am Less than 0.91 ISR Negative <0.91 Equivocal 0.91 - 1.09 Positive >1.09 [facility] , [address] [phone] Lyme Disease IgM Ab Quantitation Bernardo 2019 9:37am Less than 0.80 index Negative <0.80 Equivocal 0.80 - 1.19 Positive >1.19 IgM levels may peak at 3-6 weeks post infection, then gradually decline.Performed at: [facility] [place] [address] [id number] Director: Cecy Babin MD, Phone: [phone] [employer] , [address] [facility] [id number] Pro-B-Type Natriuretic Peptide December 09, 2019 8:50am 1806.00 pg/mL 0.00-450 [facility], [address] [place] [id number] Microbiology Results Procedure Source Result Collection Date/Time Result Date/Time Result Comment Performing Site Respiratory Panel (PCR) Nasopharyngeal No Organisms Detected August 09, 2020 3:23pm August 09, 2020 4:32pm [facility], [address] [place] [id number] Diagnostic Imaging Reports Report Dictated Date/Time Dictated By Status Radiology Report August 13, 2019 2:30pm Young Lira MD completed [facility] [id number] [place] [address] [phone] NAME SEX PT STATUS ACCOUNT NUMBER BRITTON GOMEZ REG REF [id number] ORDERING PHYSICIAN LOCATION MEDICAL RECORD NO. Julian Herrera DO LAB [id number] ATTENDING PHYSICIAN DATE OF DATE OF EXAM/TIME Julian Herrera DO 1940 08/13/19 / 1423 TYPE / EXAM Xray Chest 2 view PA/LAT REASON FOR EXAM upper respiratory infection, coarse lung sounds COMPARISON: July 28, 2019 FINDINGS: The patient is post median sternotomy. Sternotomy wires remain intact. 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 Plate atelectasis seen in the left lung, posteriorly, remains stable. The cardiac and mediastinal silhouettes appear normal and the lungs are otherwise essentially clear. The bones and soft tissues are normal. The upper abdomen is unremarkable. IMPRESSION: 1. Stable platelike atelectasis towards the left lung base, posteriorly. 2. No focal pulmonary consolidation pleural effusion, or pulmonary vascular congestion. Reported By Young Lira MD on 08/13/19 1430 Signed By Young Lira MD on 08/13/19 1433 Date Time CC: Young Lira MD; Julian Herrera DO Techn: MORSA Trans Dt/Tm: Trans by: DT Prt Dt/Tm: [id number]: Total DLP = 0.00 mGy-cm Fluoroscopy Time (in secs): Radiology Report October 20, 2019 11:28am Young Lira MD completed [facility] [place] [id number] [place] [address] [phone] NAME SEX PT STATUS ACCOUNT NUMBER [facility] GOMEZ REG REF [id number] ORDERING PHYSICIAN LOCATION MEDICAL RECORD NO. Tono Guardado RAD [id number] ATTENDING PHYSICIAN DATE OF DATE OF EXAM/TIME Tono Guardado 1940 10/20/191101 TYPE / EXAM Xray Cervical [...] Trans Dt/Tm: Trans by: DT Prt Dt/Tm: [id number]: Total DLP = 0.00 mGy-cm Fluoroscopy Time (in secs): Radiology Report December 09, 2019 10:25am Young Lira MD completed [facility] [address] [place] [address] [phone] NAME SEX PT STATUS ACCOUNT NUMBER [facility] ER [id number] ORDERING PHYSICIAN LOCATION MEDICAL RECORD NO. Ko Ramos MD ER [id number] ATTENDING PHYSICIAN DATE OF DATE OF EXAM/TIME [...] Date Time CC: Young Lira MD; Tara STATION AIR TRAFFIC CONTROL SPECIALIST Dylon Techn: FROSA Trans Dt/Tm: Trans by: DT Prt Dt/Tm: [id number]: Total DLP = 0.00 mGy-cm Fluoroscopy Time (in secs): Radiology Report January 23, 2020 5:08pm Floyd Cain MD completed [facility] [address] [place] [address] [phone] NAME SEX PT STATUS ACCOUNT NUMBER [facility] ER [id number] ORDERING PHYSICIAN LOCATION MEDICAL RECORD NO. Kyaw Richardson ER [id number] ATTENDING PHYSICIAN DATE OF DATE OF EXAM/TIME [...] 23, 2020 5:41pm Floyd Cain MD completed [facility] [address] [place] [id number] [phone] NAME SEX PT STATUS ACCOUNT NUMBER BRITTON GOMEZ [facility] ER [id number] ORDERING PHYSICIAN LOCATION MEDICAL RECORD NO. Kyaw Richardson ER [id number] ATTENDING PHYSICIAN DATE OF DATE OF EXAM/TIME Tara Osborne NP 1940 01/23/20 / 1648 TYPE / EXAM Xray Chest One View [...] Date Time CC: Floyd Cain MD; Tara STATION [employer] TRAFFIC CONTROL SPECIALIST Dylon Techn: FROSA Trans Dt/Tm: Trans by: DT Prt Dt/Tm: [id number]: Total DLP = 0.00 mGy-cm Fluoroscopy Time (in secs): Health Concerns Health Concerns may be documented in an alternate section. Advance Directives Advance Directive Response Recorded Date/Time Advanced Directive Yes D ec2019 11:22pm MOLST No December 06 0 10:58am Advance Directives on File or in chart? Ye s August 09, 2020 11:22pm Does Patient have a DNR? Yes August 09, 2020 11:22pm Healthcare Proxy Yes Jul 11:22pm Health Care Proxy Name Nanette Gomez December 07, 2019 10:58am Health Care Proxy Phone Number December 07, 2019 10:58am Living Will Yes December 062019 10:58am Chief Complaint and Reason for Visit Chief Complaint Office visit J06.9 J06.9,I48.91 I48.91 I48.91, I48.2 Medicare Annual Wellness subsequent I48.91 I48.91 Medication check M54.2 E89.5,I48.91,C61 I48.91 I48.91 I48.91 I48.91 Shortness of breath SOB I48.91 O48.91 O48.91 I48.91 I48.91 I48.91 I48.91 I48.91 I48.91 I48.91 I48.91,J06.9,Z95.2 FALL,EAR LAC Wound Care I48.91,Z95.2 I48.91 I48.91 Hypertension I48.91,W57.XXXA Medicare Annual Wellness subsequent I48.91 I48.91 Rash I48.91 I48.91 Telemed Visit I48.91 Hypertension CHEST PAIN Reason for Visit Atrial fibrillation Atrial fibrillation Congestive heart failure (CHF) Weakness Laceration of ear, external, left, complicated Hypertension, essential, benign Atrial fibrillation Scabies Encounters Encounter Location(s) Ar rival/Admit Date Discharge/Depart Date Provider(s) Departed Physician/Provider Office Visit [facility] August 13, 2019 1:10pm August 13, 2019 2:08pm Julian whipple , DO Registered Referred [facility] August 13, 2019 2:11pm Julian Herrera DO Registered Referred [facility] Drop Off August 31, 2019 7:00am Julian Herrera DO Registered Referred [facility] September 02, 2019 11:16am Julian Herrera DO Registered Outpatient [facility] September 02, 2019 5:06pm Julian Herrera , DO Registered Referred [facility] Drop Off September 14, 2019 7:00am Julian Herrera , DO Departed Physician/Provider Office Visit [facility] September 14, 2019 10:17am September 14, 2019 11:39am Julian Herrera , DO Registered Referred [facility] Drop Off October 12, 2019 7:10am Julian Herrera , DO Registered Outpatient [facility] October 12, 2019 11:44am Julian Herrera , DO Registered Referred [facility] October 19, 2019 6:00am Tono Guardado DO Registered Outpatient [facility] October 19, 2019 2:59pm Tono Guardado DO Departed Physician/Provider Office Visit [facility] October 20, 2019 8:48am October 20, 2019 9:50am Lillian Friedman Registered Referred [facility]Rad[facility] October 20, 2019 9:54am Tono Guardado DO Registered Referred [facility] Drop Off November 09, 2019 5:55am Tray Vazquez Registered Outpatient [facility] November 09, 2019 8:42am Tono Guardado DO Registered Referred [facility] Drop Off November 23, 2019 6:05am Kaz Cid MD Registered Referred [facility] November 26, 2019 8:30am Kaz Cid MD Registered Referred [facility] December 01, 2019 8:00am Kaz Cid MD Registered Referred [facility] December 06, 2019 8:00am Kaz Cid MD Departed Physician/Provider Office Visit [facility] December 09, 2019 7:25am December 09, 2019 8:08am Tara Osborne Departed [facility] December 09, 2019 8:11am December 09, 2019 10:40am null Registered Referred [facility] December 13, 2019 7:00am K athy Dylon Registered Referred [facility] December 15, 2019 8:00am K athy Dylon Registered Referred [facility] December 22, 2019 7:45am Tara Dylon Registered Referred [facility] December 23, 2019 8:00am Tara Dylon Registered [facility] December 24, 2019 8:00am Tara Dylon Registered [facility] December 27, 2019 7:30am Kaz Cid MD Registered [facility] December 30, 2019 8:27am Tara Dylon Registered [facility] January 06, 2020 8:43am [facility], 2020 8:18am [facility]ylon [facility] 14, 2020 6:00am Tara Dylon [facility] 21, 2020 6:00am Anjana Lucio NP Departed [facility] January 23, 2020 3:00pm January 23, 2020 5:42pm null Departed Physician/Provider Office Visit [facility] January 25, 2020 1:12pm January 25, 2020 1:36pm Carlos desir DO [facility] 10, 2020 9:02am Anjana Lucio NP Registered Outpatient [facility] February 14, 2020 12:46pm Anjana Lucio NP [facility] 18, 2020 11:08am [facility] Osborne [facility] 28, 2020 6:28am Tara Osborne Departed Physician/Provider Office Visit [facility] March 08, 2020 8:26am March 08, 2020 9:28am Tono Guardado DO [facility], 2020 9:25am Tara Osborne Departed Physician/Provider Office Visit [facility] March 17, 2020 2:08pm March 17, 2020 3:45pm Lillian Friedman [facility] 31, 2020 6:00am Tono Guardado DO [facility] May 12, 2020 6:23am Tara Osborne Departed Physician/Provider Office Visit [facility] May 16, 2020 8:27am May 16, 2020 10:03am Tono Guardado DO [facility] 23, 2020 8:54am Tara Dylon [facility] June 23, 2020 9:23am Tono Guardado DO Departed Physician/Provider Office Visit [facility] June 23, 2020 1:13pm June 23, 2020 2:54pm Tono Guardado DO [facility] 30, 2020 11:15am Tono Guardado DO [facility] July 07, 2020 9:25am Tono Guardado DO Departed Physician/Provider Office Visit [facility] July 11, 2020 10:41am July 11, 2020 11:45am Tono Guardado DO [facility] 26, 2020 10:55am Destin Arthur MD Discharged Inpatient [facility] August 09, 2020 6:05pm August 10, 2020 7:48pm Shekhar Loius MD Recent Diagnosis Onset Date Atrial fibrillation Atrial fibrillation Congestive heart failure (CHF) Weakness Laceration of ear, external, left, complicated Hypertension, essential, benign January 06, 2015 Atrial fibrillation Scabies Assessments Diagnosis Onset Date Res olution Status Atrial fibrillation chronic Atrial fibrillation chronic Congestive heart failure (CHF) chronic Weakness resolved Laceration of ear, external, left, complicated resolved Hypertension, essential, benign January 06, 2015 chronic Atrial fibrillation chronic Scabies acute Family History Relationship Condition A ge at Onset Recorded Date/Time Not Specified Cardiac disease Unknown Not Specified Hyperlipidemia Unknown Hypertension Unknown Not Specified Multiple sclerosis Unknown Functional Status Observation Response Lobo e Recorded Functional Status Modified [place] August 09, 2020 11:22pm Goals Goals may be documented in an alternate section. Immunizations Immunization Event Date Not Given Reason Dose Number [employer] Tube Bender Lot Number Vaccine Information Statement (VIS) Deta il pneumococcal conjugate PCV 13 Mayobe r 2016 zoster (shingles) vaccine, live, sc November 03, 2016 pneumococcal polysaccharide PPV23 vaccine September 14, 2019 [id number] tetanus, diphtheria, acell pertussis 7yrs &up January 23, 2020 br352 Mental Status Observation Response Lobo e Recorded Impairments Hearing/Auditory August 09, 2020 2:10pm Medical Equipment No Medical Equipment Information available Insurance Providers Guarantor BRITTON GOMEZ Address [address] [place] [address] Contact Info. Home Phone: Payer Policy Id Coverage Id Subscriber's Name Subscriber Id Effective Date Expiration Date [facility] [id number] BRITTON GOMEZ [id number] [facility] [id number] BRITTON GOMEZ [id number] 2011 MEDICARE [place] [id number] BRITTON GOMEZ [id number] 2011 MEDICARE [id number] BRITTON GOMEZ [id number] Self Pay Self N/A Plan of Treatment agrees to decrease warfarin schedule new dosage schedule is 2mg on Friday , friday, and the other four days will be 3mg repeat inr in about one week if condition worsens, then go to ER hydrocortisone prn f/u dermatolgist f/u social human services assistants hydrocortisone as ordered if worsens, then go to ER and patient denies new foods, new soaps, new detergents, denies pets 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 Britton Gomez is an 79-year-old male presenting to the clinic for follow-up of atr ial fibrillation. In addition he has symptoms suggestive of a URI. Considering his past medical h istory of CHF and his current pulmonary examination I believe he would benefit from a chest x-ray to evaluate for pneumonia or CHF exacerbation although his weight has been stable, there are no crackles in the lower lung hurtado and no lower extremity edema. Goal INR: Prevention and treatment of thromboembolism 23 Labs: Patient has had several months of INRs not in the therapeutic range th erefore have been increasing the frequency of monitoring. Last 2 INRs which were performed weekly were within normal limits. INR today and if therapeutic will extend to checking every 2 weeks. Medication: Continue warfarin as outlined in dose management Future Tests Future scheduled test information is unavailable Pending Tests Pending diagnostic test information is unavailable Future Visits Future appointment information is unavailable Referrals to Other Providers Reason for Referral Referral Start Date Provider Provider Conta ct Information Provider Address Tono Guardado DO Email: [email or web address] Phone: [address] [place] [address] Tara Osborne Email: [email or web address] Phone: [address] [place] [address] Vlad Elizabeth MD Work Phone: [address] [place] [address] [address] [facility] [address] L29.9 - Pruritus, unspecified May 16, 2020 [facility] [address] [facility], [address] [facility] [address] B07.9 - Viral wart, unspecified May 16, 2020 dermatology Future Procedures Future procedure information is unavailable Future Medications Future medication information is unavailable Patient Instructions A-fib (Atrial Fibrillation) (GEN) Warfarin (By mouth) Chest Pain (DC) Social History Smoking Status Status Date of Observation Former smoker August 10, 2020 4: 52pm Observation Status Observation Response Lobo e of Response Smoking Status Former smoker August 10, 2020 4:52pm Alcohol Use No August 09, 2020 3:40pm Substance Use No Decembe r 2019 3:40pm Inhalant Use No December 062019 10:58am When did patient quit smoking? 45 yrs ago December 07, 2019 10:58am Assigned Sex Male Vital Signs Vital Reading Result Ref erence Range Collection Date/Time Height 63 [in_i] August 13, 2019 1:18pm Weight 189.00 [lb_av] August 13, 2019 1:18pm Body Temperature 98.5 [degF] 97.6-99.5 August 13, 2019 1:18pm Heart Rate 94 /min 60-100 August 13, 2019 1:18pm Respiratory rate 18 /min 12-24 August 13, 2019 1:18pm Oxygen saturation by Pulse oximetry 97 % 95- 100 August 13, 2019 1:18pm BP Systolic 120 mm[Hg] August 13, 2019 1:18pm BP Diastolic 70 mm[Hg] August 13, 2019 1:18pm BMI (Body Mass Index) 33.5 kg/m2 August 13, 2019 1:18pm Height 64 [in_i] September 14, 2019 10:24am Weight 190.00 [lb_av] September 14, 2019 10:24am Heart Rate 94 /min 60-100 September 14, 2019 10:24am Respiratory rate 16 /min 12-September 14, 2019 10:24am Oxygen saturation by Pulse [...] 23, 2020 6:47pm Respiratory rate 20 /min 12-January 23, 2020 6:47pm Oxygen saturation by Pulse [...] 17, 2020 3:37pm Respiratory rate 18 /min -March 17, 2020 3:37pm Oxygen saturation by Pulse [...] 16, 2020 9:50am Respiratory rate 18 /min -May 16, 2020 9:50am Oxygen saturation by Pulse [...] 11, 2020 10:50am Respiratory rate 18 /min 12-July 11, 2020 10:50am Oxygen saturation by Pulse [...] 10, 2020 7:00pm Respiratory rate 14 /min 12-24 August 10, 2020 7:00pm Oxygen saturation by Pulse oximetry 95 % 95- 100 August 10, 2020 7:00pm BP Systolic 124 mm[Hg] August 10, 2020 5:34pm BP Diastolic 86 mm[Hg] August 10, 2020 5:34pm BMI (Body Mass Index) 29.2 kg/m2 August 10, 2020 4:52pm
--- OUTSIDE RECORDS SUMMARY | 2020-09-06 20:03 | CCD | Continuity of Care Document ---
Author Organization Unknown Address Unknown Phone Unavailable Care Team Providers Care Pantograph Watcher Name Role Phone Devon Gee MD AUTM [phone] Boston Melgar MD [facility] [phone] Tray Vazquez MD [facility] [phone] Karl Weir MD AUTM [phone] Tara Osborne CARTON MAKING MACHINIST AUTM [phone] Problems Active Problems Provider Date Coronary arteriosclerosis Vivien E Javierenow, PA-C Onset: 2010 Coronary artery bypass grafts x 2 Vivien E Symenow, PA-C Onset : 07/02/2011 History of coronary artery bypass grafting Vivienashley Morel, P A-C Onset: 06/28/2015 Patient post percutaneous transluminal coronary angiop lasty Vivienashley Herreraenow, PA-C Onset: 07/02/2011 Aortic valve disorder Vivien E Symenow, PA-C Onset: 07/02/2011 Transplantation of heart valve Vivien E Symenow, PA-C Onset: 0 10/25/2016 Chronic atrial fibrillation Vivien E Symenow, PA-C Onset: 10/09 Aneurysm of thoracic aorta Vivien E Symenow, PA-C Onset: 10/25 Mitral valve disorder Vivien E Symenow, PA-C Onset: 07/02/2011 Essential hypertension Vivien E Symenow, PA-C Onset: 5 Pure hypercholesterolemia Vivien E Symenow, PA-C Onset: 2010 Obesity Vivien E Symenow, PA-C Onset: 07/02/2011 Peripheral vascular disease Vivien E Symenow, PA-C Onset: 06/12 Mixed hyperlipidemia Vivien E Symenow, PA-C Onset: 04/29/2017 Old myocardial infarction Vivien Morel PA-C Onset: 2017 Dietary management surveillance Vivien Morel PA-C Onset: 10/30/2017 Hypertensive heart disease with heart failure Vivien Morel PA-C Onset: 10/30/2017 Chronic diastolic heart failure Vivien Morel PA-C Onset: 10/30/2017 Social History Type Date Description Comments Sex Unknown Tobacco Use Start: Unknown End: Unknown Former Cigarette Smo ker 1/2 ppd for 3 years quit 1955 ETOH Use Does not consume alcohol Tobacco Use Start: Unknown End: Unknown Patient is a former smoker 1/2 ppd for 3 years quit 1955 Smoking Status Reviewed: 01/31/20 Patient is a former smoker 1/ 2 ppd for 3 years quit 1955 Exercise Type/Frequency Does housework sporadica lly Exercise Type/Frequency Exercises daily tend the woodove Exercise Limitations Shortness Of Breath Exercise Limitations Fatigue Allergies, Adverse Reactions, Alerts Description No Known Drug Allergies Medications Active Medications SIG Qnty Indications Ordering Provide r Date Albuterol Sulfate HFA 108(90Base) mcg/Act Aerosol inhale two puffs as needed every 4 hours Unknown 01/30/2020 Eligard 30mg Kit 1 injection every 6 months Unknown 01/30/2020 Metoprolol Tartrate 25mg Tablets 1/2 by mouth twice a day Unknown 06/15/[address] 1 by mouth every day Devon Gee MD 05/04/2019 Warfarin Sodium 2mg Tablets as directed by PCP 180tabs Devon Gee MD 11/02/2018 Rosuvastatin Calcium 10mg Tablets 1 tablet by mouth daily at bedtime Unknown 2017 Vitamin D 1000Unit Tablets 1 by mouth every day Unknown 05/04/2018 Finasteride 5mg Tablets 1 by mouth every [...] 0.4mg Capsules 1 by mouth every day Tray Miles MD 06/23/2014 Nitrostat 0.4mg Tablets Sub 1 sl every 5min x3 as needed for chest pain 25tabs I25.10 Harrison Duarte MD 03/15/2010 Gemfibrozil 600mg Tablets 1 tablet by mouth twice a day 180tabs E78.0 Harrison Duarte MD Immunizations Description No Information Available Vital Signs Date Vital Result Comment 01/31/2020 9:41am Weight 184.00 lb Height 67 inches 5'7" BMI (Body Mass Index) 28.8 kg/m2 Heart Rate 72 /min Irregular Respiratory Rate 16 /min BP Systolic Right Arm 122 mmHg sitting, regular c uff BP Diastolic Right Arm 66 mmHg sitting, regular cuff BP Systolic Left Arm 124 mmHg sitting BP Diastolic Left Arm 66 mmHg sitting 05/05/2019 11:31am Weight 182.00 lb Home Weight 183lb home weight Height 67 inches 5'7" BMI (Body Mass Index) 28.5 kg/m2 Heart Rate 72 /min Regular Respiratory Rate 16 /min BP Systolic Right Arm 116 mmHg Sitting, regular c uff BP Diastolic Right Arm 60 mmHg Sitting, regular cuff BP Systolic Left Arm 116 mmHg Sitting BP Diastolic Left Arm 64 mmHg Sitting Results Test Acquired Date Facility Test Result [...] Saturation 27 Procedures Date Code Description Status 01/31/2020 54467 ECG 12-Lead Completed Medical Devices Description No Information Available Encounters Type Date Location Provider Dx Diagnosis Office Visit 05/23/2020 3:11p Main Office Harrison [...] vanita ve coronary artery w/o ang pctrs Office Visit 02/21/2020 10:11a Main Office Harrison Duarte MD I34.0 Nonrheumatic mitral (valve) insufficiency I35.0 Nonrheumatic aortic (valve) stenosis I50.32 Chronic diastolic (congestiv e) heart failure I25.10 Athscl heart disease of vanita ve coronary artery w/o ang pctrs Office Visit 01/31/2020 9:45a Main Office Vivien Morel PA-C I25.1 0 Athscl heart disease of [place] coronary artery w/o ang pctrs I25.2 Old [...] (valve) stenosis I48.21 Permanent atrial fibrillatio n E78.2 Mixed hyperlipidemia I73.9 Peripheral vascular disease, unspecified Z71.3 Dietary counseling and surve illance Assessments Date Code Description Provider 06/26/2020 I34.0 Nonrheumatic mitral (valve) insu fficiency [...] MD 03/31/2020 I25.10 Atherosclerotic heart disease of [place] coronary artery with Harrison Duarte MD 02/21/2020 I34.0 Nonrheumatic mitral (valve) insu fficiency Harrison Duarte MD 02/21/2020 I35.0 Nonrheumatic aortic (valve) sten osis Harrison Duarte MD 02/21/2020 I50.32 Chronic diastolic (congestive) h eart failure Harrison Duarte MD 02/21/2020 I25.10 Atherosclerotic heart disease of [place] coronary artery with Harrison Duarte MD 01/31/2020 I25.10 Atherosclerotic heart disease of [place] coronary artery with Vivien Morel PA-C 01/31/2020 I25.2 Old myocardial infarction Vivien Morel, PA-C 01/31/2020 Z95.1 Presence of aortocoronary bypass graft Vivien Morel, PA-C 01/31/2020 Z95.5 Presence of coronary angioplasty implant and graft Vivien Morel, PA-C 01/31/2020 I50.32 Chronic diastolic (congestive) h eart failure Vivien Morel, PA-C 01/31/2020 I11.0 Hypertensive heart disease with heart failure Vivien Morel, PA-C 01/31/2020 I35.0 Nonrheumatic aortic (valve) sten osis Vivien Morel, PA-C 01/31/2020 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 Vivien Morel, PA-C 01/31/2020 I71.2 Thoracic aortic aneurysm, withou t rupture Vivien Morel, PA-C 01/31/2020 I34.0 Nonrheumatic mitral (valve) insu fficiency Vivien Morel, PA-C 01/31/2020 I34.2 Nonrheumatic mitral (valve) sten osis Vivien Morel, PA-C 01/31/2020 I48.21 Permanent atrial fibrillation Ahsan Canseco, PA-C 01/31/2020 E78.2 Mixed hyperlipidemia Vivien yoon, PA-C 01/31/2020 I73.9 Peripheral vascular disease, uns pecified Vivien Morel, PA-C 01/31/2020 Z71.3 Dietary counseling and surveilla nce Vivien Morel PA-C Plan of Treatment Future Appointment(s):* 08/01/2020 10:15 am - Vivien Morel PA-C at Main Office 01/31/2020 - Vivien Morel PA-C* I25.10 Atherosclerotic heart disease of [place] coronary artery with * I25.2 Old myocardial [...] stenosis * I48.21 Permanent atrial fibrillation * E78.2 Mixed hyperlipidemia * I73.9 Peripheral vascular disease, unspecified * [...]
--- OUTSIDE RECORDS SUMMARY | 2020-09-06 20:03 | CCD | Continuity of Care Document ---
Author Author [facility] Address [address] [place] [address] Phone Support Name Relationship Address Phone Kaz Cid PRS [address] [place] [address] Julian Herrera PRS [address] [place] [address] Tono Guardado PRS [address] [place] [address] Lillian Vazquez PRS [address] [place] [address] Tara Osborne PRS [address] [place] [address] [place] Beach[place] sanz PRS [address] [place] [address] [place] [address] Kyaw Richardson PRS [address] [place] [address] Evan De Oliveira PRS [address] [place] [address] Carlos Drummond PRS [address] [place] [address] Sandhya Weir PRS [address] [place] [address] Carlos Galvin PRS [address] [place] [address] Shekhar Louis PRS [address] [place] [address] Allergies, Adverse Reactions, Alerts No known allergies. [...] 325 MG tablet Active 650 MG PO 2 Times Per Day March 15, 2016 2:1 4pm Potassium Chloride Discontinued 1 TAB PO Once [...] 2016 2:14pm March 19, 2016 10:21am Aa 9-Pmzm-Eiuqm-[place]-Hrb 126 (Gabadone Capsule) [id number] mg capsule Discontinued 300 MG PO Once [...] 1:43pm Zoster Vaccine Live (Pf) (Zostavax Vial) 75652 UNIT/0.65 ML suspension for reconstitution Discontinued 30536 UNIT SQ ONE TIME October 31, 2016 [...] 2017 6:38am May 29, 2017 12:08pm Ipratropium [place] Discontinued 2 SPRAYS NA 2 Times Per Da y May 19, 2017 3: 52pm December 09, 2018 6:03am Ipratropium [place] Discontinued 2 SPRAYS NA 2 Times Per Da y May 19, 2017 3: 52pm December 09, 2019 7:50am Pneumoc 13-Anna Conj-Dip Cr(Pf) (Prevnar 13*) 0.5 ML sy ringe Discontinued 0.5 ML IM ONE TIME May 19, 2017 4:09pm May 4:13pm Flu Vaccine [id number](5 Yr Up) (Afluria 1103-2618) 45 MCG/0.5 ML suspension Discontinued 45 MCG [...] Time Per Week May 19, 2018 8 :27December 09, 2019 7:34am Warfarin Discontinued 2 MG [...] 02, 2018 2:04pm September 16, 2018 12:54pm Aervalo 3 MG, M 2 MG, Tu 2 [...] Diabetes mellitus type 2 in obese Ma [facility] 2014 Active Adenocarcinoma of prostate Active [...] 2019 7:16pm completed US Echo complete August 09, 2020 9:46p m active Respiratory Panel (PCR) August 09 0 [...] 2019 5:06pm 2.5 White Blood Count August 09 0 3:50pm 5.1 10e3/uL 4.45-10.71 [facility], [address] [facility] [address] White Blood Count July 26 0 10:55am 5.1 10e3/uL 4.45-10.71 [facility], [address] [place] [address] White Blood Count January 23, 2020 3:25pm 5.4 10e3/uL 4.45-10.71 [facility], [address] [place] [address] White Blood Count December 09, 2019 8:50am 4.9 10e3/uL 4.45-10.71 [facility], [address] [place] [address] Red Blood Count August 09, 2020 3:50pm 3.57 10e6/uL 4.3-6.1 [facility], [address] [place] [address] Red Blood Count July 26, 2020 10:55a m 3.50 10e6/uL 4.3-6.1 [facility], [address] [place] [address] Red Blood Count January 23, 2020 3:25pm 3.52 10e6/uL 4.3-6.1 [facility], [address] [place] [address] Red Blood Count December 09, 2019 8:50am 2.85 10e6/uL 4.3-6.1 [facility], [address] [place] [address] Hemoglobin August 09, 2020 3:50pm 11.6 g/dL [facility], [address] [place] [address] Hemoglobin July 26, 2020 10:55am 11.3 g/dL [facility], [address] [place] [address] Hemoglobin January 23, 2020 3:25pm 11.7 g/dL [facility], [address] [place] [address] Hemoglobin December 09, 2019 8:50am 9.2 g/dL [facility], [address] [place] [address] Hematocrit August 09, 2020 3:50pm 36.1 % 42-52 [facility], [address] [place] [address] Hematocrit July 26, 2020 10:55am 35.8 % 42-52 [facility], [address] [place] [address] Hematocrit January 23, 2020 3:25pm 34.6 % 42-52 [facility], [address] [place] [address] Hematocrit December 09, 2019 8:50am 26.3 % 42-52 [facility], [address] [place] [address] 00665 Mean Corpuscular Volume July 3:50pm 101.[address] [facility], [address] [place] [address] 82340 Mean Corpuscular Volume July 10:55am 102.[address] [place] [address] LABORATORY, [address] [place] [address] 96596 Mean Corpuscular Volume January 22 3:25pm 98.[address] [place] [address] LABORATORY, [address] [place] [address] 17415 Mean Corpuscular Volume December 09, 2019 8:50am 92.3 fl [facility], [address] [place] [address] 56408 Mean Corpuscular Hemoglobin August 09, 2020 3:50pm 32.5 pg 27-31 [facility], [address] [place] [address] 17416 Mean Corpuscular Hemoglobin July 26, 2020 10:55am 32.3 pg 27-31 [facility], [address] [place] [address] 43227 Mean Corpuscular Hemoglobin January 3:25pm 33.2 pg 27-31 [facility], [address] [place] [address] 36213 Mean Corpuscular Hemoglobin December 082019 8:50am 32.3 pg 27-31 [facility], [address] [place] [address] 59807 Mean Corpuscular Hemoglobin Concent August 09, 2020 3:50pm 32.1 g/dl 37 [facility], [address] [place] [address] 03631 Mean Corpuscular Hemoglobin Concent July 26, 2020 10:55am 31.6 g/dl 3337 [facility], [address] [place] [address] 87260 Mean Corpuscular Hemoglobin Concent January 23, 2020 3:25pm 33.8 g/dl 37 [facility], [address] [place] [address] 76079 Mean Corpuscular Hemoglobin Concent December 09, 2019 8:50am 35.0 g/dl 37 [facility], [address] [place] [address] 83172 Red Cell Distribution Width August 09, 2020 3:50pm 14 % 11-15 [facility], [address] [place] [address] Red Cell Distribution Width July 26, 2020 10:55am 17 % 11-15 [facility], [address] [place] [address] Red Cell Distribution Width January 3:25pm 15 % 11-15 [facility], [address] [place] [address] Red Cell Distribution Width December 082019 8:50am 15 % 11-15 [facility], [address] [place] [address] Platelet Count August 09, 2020 3:50pm 148 10e3/ul 130-472 [facility], [address] [place] [address] Platelet Count July 26, 2020 10:55am 147 10e3/ul 130-472 [facility], [address] [place] [address] Platelet Count January 23, 2020 3:25pm 127 10e3/ul 130-472 [facility], [address] [place] [address] Platelet Count December 09, 2019 8:50am 123 10e3/ul 130-472 [facility], [address] [place] [address] Mean Platelet Volume August 09, 2020 3:50pm 11.5 fl 9.1-13.1 [facility], [address] [place] [address] Mean Platelet Volume July 26, 2020 10:55am 10.6 fl 9.1-13.1 [facility], [address] [place] [address] Mean Platelet Volume January 23, 2020 3:25p m 11.3 fl 9.1-13.1 [facility], [address] [place] [address] Mean Platelet Volume December 08 0 8:50am 10.8 fl 9.1-13.1 [facility], [address] [place] [address] Neutrophils (%) (Auto) July 3:50pm 59.8 % 4177 [facility], [address] [place] [address] Neutrophils (%) (Auto) July 10:55am 60.8 % [address] [facility], [address] [place] [address] Neutrophils (%) (Auto) January 22 3:25pm 66.8 % 41-77 [facility], [address] [place] [address] 49310 Neutrophils (%) (Auto) December 08 8:50am 62.0 % 41-77 [facility], [address] [place] [address] 38292 Absolute Neutrophil August 09 3:50pm 3.0 # 1.7-7.6 [facility], [address] [place] [address] 41272 Absolute Neutrophil July 26 10:55am 3.1 # 1.7-7.6 [facility], [address] [place] [address] 87169 Absolute Neutrophil January 23, 2020 3:25pm 3.6 # 1.7-7.6 [facility], [address] [place] [address] 25607 Absolute Neutrophil December 09, 2019 8:50a m 3.0 # 1.7-7.6 [facility], [address] [place] [address] 37612 Lymphocytes (%) (Auto) July 3:50pm 24.3 % 14-46 [facility], [address] [place] [address] 72533 Lymphocytes (%) (Auto) July 10:55am 23.7 % 14-46 [facility], [address] [place] [address] 14076 Lymphocytes (%) (Auto) January 22 3:25pm 18.8 % 14-46 [facility], [address] [place] [address] 31323 Lymphocytes (%) (Auto) December 08 8:50am 23.4 % 14-46 [facility], [address] [place] [address] 29408 Lymphocytes # (Auto) August 09, 2020 3:50pm 1.2 # 0.6-4.6 [facility], [address] [place] [address] 91390 Lymphocytes # (Auto) July 26, 2020 10:55am 1.2 # 0.6-4.6 [facility], [address] [place] [address] 42375 Lymphocytes # (Auto) January 23, 2020 3:25p m 1.0 # 0.6-4.6 [facility], [address] [place] [address] 12109 Lymphocytes # (Auto) December 08 0 8:50am 1.1 # 0.6-4.6 [facility], [address] [place] [address] 72311 Monocytes (%) (Auto) August 09, 2020 3:50pm 10.7 % 4-12 [facility], [address] [place] [address] 47403 Monocytes (%) (Auto) July 26, 2020 10:55am 10.2 % 11-20 [facility], [address] [place] [address] 95313 Monocytes (%) (Auto) January 23, 2020 3:25p m 9.9 % 4-12 [facility], [address] [place] [address] 29188 Monocytes (%) (Auto) December 08 0 8:50am 10.9 % 11-20 [facility], [address] [place] [address] 62860 Monocytes # August 09, 2020 3:50pm 0.5 # 0.2-1.2 [facility], [address] [place] [address] 83716 Monocytes # July 26, 2020 10:55am 0.5 # 0.2-1.2 [facility], [address] [place] [address] 95161 Monocytes # January 23, 2020 3:25pm 0.5 # 0.2-1.2 [facility], [address] [place] [address] 28406 Monocytes # December 09, 2019 8:50am 0.5 # 0.2-1.2 [facility], [address] [place] [address] 52989 Eosinophils (%) (Auto) July 3:50pm 4.2 % 0-7 [facility], [address] [place] [address] 33045 Eosinophils (%) (Auto) July 10:55am 4.3 % 0-7 [facility], [address] [place] [address] 01342 Eosinophils (%) (Auto) January 22 20 3:25pm 3.9 % 0-7 [facility], [address] [place] [address] 66934 Eosinophils (%) (Auto) December 08 020 8:50am 2.9 % 0-7 [facility], [address] [place] [address] 98969 Absolute Eosinophils (CBC) August 09, 2020 3:50pm 0.2 # 0.0-0.5 [facility], [address] [place] [address] 54481 Absolute Eosinophils (CBC) July 26, 2020 10:55am 0.2 # 0.0-0.5 [facility], [address] [place] [address] Absolute Eosinophils (CBC) January 3:25pm 0.2 # 0.0-0.5 [facility], [address] [place] [address] 91141 Absolute Eosinophils (CBC) November 8:50am 0.1 # 0.0-0.5 [facility], [address] [place] [address] 89708 Basophils (%) (Auto) August 09, 2020 3:50pm 0.8 % 0.4-1.3 [facility], [address] [place] [address] 75016 Basophils (%) (Auto) July 26, 2020 10:55am 0.8 % 0.4-1.3 [facility], [address] [place] [address] Basophils (%) (Auto) January 23, 2020 3:25p m 0.6 % 0.4-1.3 [facility], [address] [place] [address] 38371 Basophils (%) (Auto) December 08 0 8:50am 0.4 % 0.4-1.3 [facility], [address] [place] [address] 96855 Absolute Basophils (CBC) August 092019 3:50pm 0.0 # 0.0-0.2 [facility], [address] [place] [address] Absolute Basophils (CBC) July 262019 10:55am 0.0 # 0.0-0.2 [facility], [address] [place] [address] Absolute Basophils (CBC) January 23, 2020 3:25pm 0.0 # 0.0-0.2 [facility], [address] [place] [address] Absolute Basophils (CBC) December 09, 2019 8:50am 0.0 # 0.0-0.2 [facility], [address] [place] [address] 19063 Immature Granulocyte % (Auto) Decemb 2019 3:50pm 0.2 % 0-2 [facility], [address] [place] [address] 19755 Immature Granulocyte % (Auto) 2019 10:55am 0.2 % 0-2 [facility], [address] [place] [address] Immature Granulocyte % (Auto) January 092019 3:25pm 0.0 % 0-2 [facility], [address] [place] [address] 65346 Immature Granulocyte % (Auto) December 09, 2019 8:50am 0.4 % 0-2 [facility], [address] [place] [address] 49170 Absolute Immature Granulocyte (auto August 09, 2020 3:50pm 0.0 # 0-0.1 [facility], [address] [place] [address] 52831 Absolute Immature Granulocyte (auto July 26, 2020 10:55am 0.0 # 0-0.1 [facility], [address] [place] [address] 13755 Absolute Immature Granulocyte (auto January 23, 2020 3:25pm 0.0 # 0-0.1 [facility], [address] [place] [address] 30282 Absolute Immature Granulocyte (auto December 09, 2019 8:50am 0.0 # 0-0.1 [facility], [address] [place] [address] 79614 Add Manual Differential July 3:50pm No [facility], [address] [place] [address] 17745 Add Manual Differential July 10:55am No [facility], [address] [place] [address] 41849 Add Manual Differential January 22 3:25pm No [facility], [address] [place] [address] 85721 Add Manual Differential December 09, 2019 8:50am No [facility], [address] [place] [address] 56302 Prothrombin Time July 07, 2020 9:27a m 25.6 SECONDS 9.6-12.3 [facility], [address] [place] [address] 01701 Prothrombin Time June 30, 2020 11:25am 39.2 SECONDS 9.6-12.3 [facility], [address] [place] [address] 90511 Prothrombin Time June 23, 2020 9:40a m 34.0 SECONDS 9.6-12.3 [facility], [address] [place] [address] 86632 Prothrombin Time May 23, 2020 8:56am 25.7 SECONDS 9.6-12.3 [facility], [address] [place] [address] Prothrombin Time May 12, 2020 6:26am 32.4 SECONDS 9.6-12.3 [facility], [address] [place] [address] 90041 Prothrombin Time March 31, 2020 6:17am 25.2 SECONDS 9.6-12.3 [facility], [address] [place] [address] Prothrombin Time March 08, 2020 9:37am 22.5 SECONDS 9.6-12.3 [facility], [address] [place] [address] 71719 Prothrombin Time February 28, 2020 6:27am 29.5 SECONDS 9.6-12.3 [facility], [address] [place] [address] 72606 Prothrombin Time February 18, 2020 11:47am 16.9 SECONDS 9.6-12.3 [facility], [address] [place] [address] 61288 Prothrombin Time February 10, 2020 9:13am 18.7 SECONDS 9.6-12.3 [facility], [address] [place] [address] 75350 Prothrombin Time January 23, 2020 3:25pm 24.4 SECONDS 9.6-12.3 [facility], [address] [place] [address] 26511 Prothrombin Time January 21, 2020 6:17am 22.3 SECONDS 9.6-12.3 [facility], [address] [place] [address] 21369 Prothrombin Time January 14, 2020 6:12am 37.7 SECONDS 9.6-12.3 [facility], [address] [place] [address] 03981 Prothrombin Time January 07, 2020 8:35am 26.5 SECONDS 9.6-12.3 [facility], [address] [place] [address] Prothrombin Time January 06, 2020 8:35am 40.3 SECONDS 9.6-12.3 [facility], [address] [place] [address] 39496 Prothrombin Time December 30, 2019 8:30am 31.9 SECONDS 9.6-12.3 [facility], [address] [place] [address] Prothrombin Time December 27, 2019 8:40am 26.4 SECONDS 9.6-12.3 [facility], [address] [place] [address] Prothrombin Time December 24, 2019 8:35am 25.7 SECONDS 9.6-12.3 [facility], [address] [place] [address] Prothrombin Time December 23, 2019 8:18am 41.9 SECONDS 9.6-12.3 [facility], [address] [place] [address] Prothrombin Time December 22, 2019 7:56am 78.2 SECONDS 9.6-12.3 [facility], [address] [place] [address] 15083 Prothrombin Time December 15, 2019 8:17am 28.9 SECONDS 9.6-12.3 [facility], [address] [place] [address] Prothrombin Time December 13, 2019 7:19am 17.0 SECONDS 9.6-12.3 [facility], [address] [place] [address] 11584 Prothrombin Time December 06, 2019 8:34am 13.2 SECONDS 9.6-12.3 [facility], [address] [place] [address] 35494 Prothrombin Time December 01, 2019 8:30am 39.8 SECONDS 9.6-12.3 [facility], [address] [place] [address] 38152 Prothrombin Time November 26, 2019 8:55am 19.1 SECONDS 9.6-12.3 [facility], [address] [place] [address] 50324 Prothrombin Time November 23, 2019 6:12am 16.2 SECONDS 9.6-12.3 [facility], [address] [place] [address] 20913 Prothrombin Time November 09, 2019 6:02am 18.2 SECONDS 9.6-12.3 [facility], [address] [place] [address] 00649 Prothrombin Time October 19, 2019 6:15am 19.8 SECONDS 9.6-12.3 [facility], [address] [place] [address] 89690 Prothrombin Time October 12, 2019 7:21am 16.7 SECONDS 9.6-12.3 [facility], [address] [place] [address] 48048 Prothrombin Time September 14, 2019 7:20am 21.6 SECONDS 9.6-12.3 [facility], [address] [place] [address] 85556 Prothrombin Time September 02, 2019 11:25a m 23.9 SECONDS 9.6-12.3 [facility], [address] [place] [address] 71389 Prothrombin Time August 31, 2019 7:00am 29.2 SECONDS 9.6-12.3 [facility], [address] [place] [address] 05792 Prothrombin Time August 13, 2019 2:28pm 27.2 SECONDS 9.6-12.3 [facility], [address] [place] [address] 11350 Prothrombin Time August 09, 2019 8:42a m 24.1 SECONDS 9.6-12.3 [facility], [address] [place] [address] 76420 INR International Normalized Ratio N ovember 2019 9:27am 2.5 0.9-1.1 THE INR IS OPERATIONALLY DEFINED FOR PIPPA PLASMA FROMPATIENTS STABILIZED ON ORAL ANTICOAGULANTS. ROUTINE ANTICOAGULANT THERAPY 2.0-3.0RECURRENT SYSTEMIC EMBOLISM/HEART VALVE REPLACEMENT 2.5-3.5 [facility], [address] [place] [address] INR International Normalized Ratio N ovember 2019 11:25am 3.9 0.9-1.1 THE INR IS OPERATIONALLY DEFINED FOR PIPPA SH PLASMA FROMPATIENTS STABILIZED ON ORAL ANTICOAGULANTS. ROUTINE ANTICOAGULANT THERAPY 2.0-3.0RECURRENT SYSTEMIC EMBOLISM/HEART VALVE REPLACEMENT 2.5-3.5 [facility], [address] [place] [address] INR International Normalized Ratio N ovember 2019 9:40am 3.4 0.9-1.1 THE INR IS OPERATIONALLY DEFINED FOR PIPPA SH PLASMA FROMPATIENTS STABILIZED ON ORAL ANTICOAGULANTS. ROUTINE ANTICOAGULANT THERAPY 2.0-3.0RECURRENT SYSTEMIC EMBOLISM/HEART VALVE REPLACEMENT 2.5-3.5 [facility], [address] [place] [address] 03642 INR International Normalized Ratio O ctober 2019 8:56am 2.5 0.9-1.1 THE INR IS OPERATIONALLY DEFINED FOR PIPPA SH PLASMA FROMPATIENTS STABILIZED ON ORAL ANTICOAGULANTS. ROUTINE ANTICOAGULANT THERAPY 2.0-3.0RECURRENT SYSTEMIC EMBOLISM/HEART VALVE REPLACEMENT 2.5-3.5 [facility], [address] [place] [address] 79447 INR International Normalized Ratio O ctober 2019 6:26am 3.2 0.9-1.1 THE INR IS OPERATIONALLY DEFINED FOR PIPPA SH PLASMA FROMPATIENTS STABILIZED ON ORAL ANTICOAGULANTS. ROUTINE ANTICOAGULANT THERAPY 2.0-3.0RECURRENT SYSTEMIC EMBOLISM/HEART VALVE REPLACEMENT 2.5-3.5 [facility], [address] [place] [address] INR International Normalized Ratio A ugust 2019 6:17am 2.5 0.9-1.1 THE INR IS OPERATIONALLY DEFINED FOR PIPPA SH PLASMA FROMPATIENTS STABILIZED ON ORAL ANTICOAGULANTS. ROUTINE ANTICOAGULANT THERAPY 2.0-3.0RECURRENT SYSTEMIC EMBOLISM/HEART VALVE REPLACEMENT 2.5-3.5 [facility], [address] [place] [address] INR International Normalized Ratio J gabriella 2019 9:37am 2.2 0.9-1.1 THE INR IS OPERATIONALLY DEFINED FOR PIPPA SH PLASMA FROMPATIENTS STABILIZED ON ORAL ANTICOAGULANTS. ROUTINE ANTICOAGULANT THERAPY 2.0-3.0RECURRENT SYSTEMIC EMBOLISM/HEART VALVE REPLACEMENT 2.5-3.5 [facility], [address] [place] [address] INR International Normalized Ratio J gabriella 2019 6:27am 2.9 0.9-1.1 THE INR IS OPERATIONALLY DEFINED FOR PIPPA SH PLASMA FROMPATIENTS STABILIZED ON ORAL ANTICOAGULANTS. ROUTINE ANTICOAGULANT THERAPY 2.0-3.0RECURRENT SYSTEMIC EMBOLISM/HEART VALVE REPLACEMENT 2.5-3.5 [facility], [address] [place] [address] INR International Normalized Ratio J gabriella 2019 11:47am 1.6 0.9-1.1 THE INR IS OPERATIONALLY DEFINED FOR PIPPA SH PLASMA FROMPATIENTS STABILIZED ON ORAL ANTICOAGULANTS. ROUTINE ANTICOAGULANT THERAPY 2.0-3.0RECURRENT SYSTEMIC EMBOLISM/HEART VALVE REPLACEMENT 2.5-3.5 [facility], [address] [place] [id number] INR International Normalized Ratio J gabriella 2019 9:13am 1.8 0.9-1.1 THE INR IS OPERATIONALLY DEFINED FOR FRESH PLASMA FROMPATIENTS STABILIZED ON ORAL ANTICOAGULANTS. ROUTINE ANTICOAGULANT THERAPY 2.0-3.0RECURRENT SYSTEMIC EMBOLISM/HEART VALVE REPLACEMENT 2.5-3.5 [facility], [address] [place] [id number] INR International Normalized Ratio J [facility] 2019 3:25pm 2.5 0.9-1.1 THE INR IS OPERATIONALLY DEFINED FOR PIPPA SH PLASMA FROMPATIENTS STABILIZED ON ORAL ANTICOAGULANTS. ROUTINE ANTICOAGULANT THERAPY 2.0-3.0RECURRENT SYSTEMIC EMBOLISM/HEART VALVE REPLACEMENT 2.5-3.5 [facility], [address] [place] [id number] INR International Normalized Ratio J une 2019 6:17am 2.3 0.9-1.1 THE INR IS OPERATIONALLY DEFINED FOR PIPPA SH PLASMA FROMPATIENTS STABILIZED ON ORAL ANTICOAGULANTS. ROUTINE ANTICOAGULANT THERAPY 2.0-3.0RECURRENT SYSTEMIC EMBOLISM/HEART VALVE REPLACEMENT 2.5-3.5 [facility], [address] [place] [id number] INR International Normalized Ratio J une 2019 6:12am 4.0 0.9-1.1 THE INR IS OPERATIONALLY DEFINED FOR FRESH PLASMA FROMPATIENTS STABILIZED ON ORAL ANTICOAGULANTS. ROUTINE ANTICOAGULANT THERAPY 2.0-3.0RECURRENT SYSTEMIC EMBOLISM/HEART VALVE REPLACEMENT 2.5-3.5 [facility], [address] [place] [id number] INR International Normalized Ratio M ay 2019 8:35am 2.8 0.9-1.1 THE INR IS OPERATIONALLY DEFINED FOR FRESH PLASMA FROMPATIENTS STABILIZED ON ORAL ANTICOAGULANTS. ROUTINE ANTICOAGULANT THERAPY 2.0-3.0RECURRENT SYSTEMIC EMBOLISM/HEART VALVE REPLACEMENT 2.5-3.5 [facility], [address] [place] [id number] INR International Normalized Ratio M ay 2019 8:35am 4.3 0.9-1.1 THE INR IS OPERATIONALLY DEFINED FOR FRESH PLASMA FROMPATIENTS STABILIZED ON ORAL ANTICOAGULANTS. ROUTINE ANTICOAGULANT THERAPY 2.0-3.0RECURRENT SYSTEMIC EMBOLISM/HEART VALVE REPLACEMENT 2.5-3.5 [facility] LABORATORY, [address] [place] [address] [id number] INR International Normalized Ratio M ay 2019 8:30am 3.4 0.9-1.1 THE INR IS OPERATIONALLY DEFINED FOR FRESH PLASMA FROMPATIENTS STABILIZED ON ORAL ANTICOAGULANTS. ROUTINE ANTICOAGULANT THERAPY 2.0-3.0RECURRENT SYSTEMIC EMBOLISM/HEART VALVE REPLACEMENT 2.5-3.5 [facility], [address] [place] [address] [id number] INR International Normalized Ratio M ay 2019 8:40am 2.7 0.9-1.1 THE INR IS OPERATIONALLY DEFINED FOR FRESH PLASMA FROMPATIENTS STABILIZED ON ORAL ANTICOAGULANTS. ROUTINE ANTICOAGULANT THERAPY 2.0-3.0RECURRENT SYSTEMIC EMBOLISM/HEART VALVE REPLACEMENT 2.5-3.5 [facility], [address] [place] [address] 51960 INR International Normalized Ratio M ay 2019 8:35am 2.7 0.9-1.1 THE INR IS OPERATIONALLY DEFINED FOR FRESH PLASMA FROMPATIENTS STABILIZED ON ORAL ANTICOAGULANTS. ROUTINE ANTICOAGULANT THERAPY 2.0-3.0RECURRENT SYSTEMIC EMBOLISM/HEART VALVE REPLACEMENT 2.5-3.5 [facility], [address] [place] [address] [id number] INR International Normalized Ratio M ay 2019 8:18am 4.5 0.9-1.1 THE INR IS OPERATIONALLY DEFINED FOR FRESH PLASMA FROMPATIENTS STABILIZED ON ORAL ANTICOAGULANTS. ROUTINE ANTICOAGULANT THERAPY 2.0-3.0RECURRENT SYSTEMIC EMBOLISM/HEART VALVE REPLACEMENT 2.5-3.5 [facility], [address] [place] [address] 87199 INR International Normalized Ratio M ay 2019 7:56am 8.8 0.9-1.1 Called to DRAKE ROCHE AT [facility] OFFICE @ 0938 by Iraj Garcia. Results read back. Repeated by: Iraj Garcia 12/22/19 0981.Result Confirmation:8.8THE INR IS OPERATIONALLY DEFINED FOR FRESH PLASMA FROMPATIENTS STABILIZED ON ORAL ANTICOAGULANTS. ROUTINE ANTICOAGULANT THERAPY 2.0-3.0RECURRENT SYSTEMIC EMBOLISM/HEART VALVE REPLACEMENT 2.5-3.5 [facility], [address] [place] [address] 05734 INR International Normalized Ratio M ay 2019 8:17am 3.0 0.9-1.1 THE INR IS OPERATIONALLY DEFINED FOR FRESH PLASMA FROMPATIENTS STABILIZED ON ORAL ANTICOAGULANTS. ROUTINE ANTICOAGULANT THERAPY 2.0-3.0RECURRENT SYSTEMIC EMBOLISM/HEART VALVE REPLACEMENT 2.5-3.5 [facility], [address] [place] [address] 45715 INR International Normalized Ratio M ay 2019 7:19am 1.7 0.9-1.1 THE INR IS OPERATIONALLY DEFINED FOR FRESH PLASMA FROMPATIENTS STABILIZED ON ORAL ANTICOAGULANTS. ROUTINE ANTICOAGULANT THERAPY 2.0-3.0RECURRENT SYSTEMIC EMBOLISM/HEART VALVE REPLACEMENT 2.5-3.5 [facility], [address] [place] [address] 97994 INR International Normalized Ratio A pril 2019 8:34am 1.3 0.9-1.1 THE INR IS OPERATIONALLY DEFINED FOR PIP[place] SH PLASMA FROMPATIENTS STABILIZED ON ORAL ANTICOAGULANTS. ROUTINE ANTICOAGULANT THERAPY 2.0-3.0RECURRENT SYSTEMIC EMBOLISM/HEART VALVE REPLACEMENT 2.5-3.5 [facility], [address] [place] [address] INR International Normalized Ratio A pril 2019 8:30am 4.3 0.9-1.1 THE INR IS OPERATIONALLY DEFINED FOR PIPPA SH PLASMA FROMPATIENTS STABILIZED ON ORAL ANTICOAGULANTS. ROUTINE ANTICOAGULANT THERAPY 2.0-3.0RECURRENT SYSTEMIC EMBOLISM/HEART VALVE REPLACEMENT 2.5-3.5 [facility], [address] [place] [address] INR International Normalized Ratio A pril 2019 8:55am 1.9 0.9-1.1 THE INR IS OPERATIONALLY DEFINED FOR PIPPA SH PLASMA FROMPATIENTS STABILIZED ON ORAL ANTICOAGULANTS. ROUTINE ANTICOAGULANT THERAPY 2.0-3.0RECURRENT SYSTEMIC EMBOLISM/HEART VALVE REPLACEMENT 2.5-3.5 [facility], [address] [place] [address] INR International Normalized Ratio A pril 2019 6:12am 1.6 0.9-1.1 THE INR IS OPERATIONALLY DEFINED FOR PIPPA SH PLASMA FROMPATIENTS STABILIZED ON ORAL ANTICOAGULANTS. ROUTINE ANTICOAGULANT THERAPY 2.0-3.0RECURRENT SYSTEMIC EMBOLISM/HEART VALVE REPLACEMENT 2.5-3.5 [facility], [address] [place] [address] INR International Normalized Ratio M arch 2019 6:02am 1.8 0.9-1.1 THE INR IS OPERATIONALLY DEFINED FOR PIPPA SH PLASMA FROMPATIENTS STABILIZED ON ORAL ANTICOAGULANTS. ROUTINE ANTICOAGULANT THERAPY 2.0-3.0RECURRENT SYSTEMIC EMBOLISM/HEART VALVE REPLACEMENT 2.5-3.5 [facility], [address] [place] [address] INR International Normalized Ratio M arch 2019 6:15am 2.0 0.9-1.1 THE INR IS OPERATIONALLY DEFINED FOR PIPPA SH PLASMA FROMPATIENTS STABILIZED ON ORAL ANTICOAGULANTS. ROUTINE ANTICOAGULANT THERAPY 2.0-3.0RECURRENT SYSTEMIC EMBOLISM/HEART VALVE REPLACEMENT 2.5-3.5 [facility], [address] [place] [address] INR International Normalized Ratio M arch 2019 7:21am 1.7 0.9-1.1 THE INR IS OPERATIONALLY DEFINED FOR PIPPA SH PLASMA FROMPATIENTS STABILIZED ON ORAL ANTICOAGULANTS. ROUTINE ANTICOAGULANT THERAPY 2.0-3.0RECURRENT SYSTEMIC EMBOLISM/HEART VALVE REPLACEMENT 2.5-3.5 [facility], [address] [place] [address] 51476 INR International Normalized Ratio F ebruary 2019 7:20am 2.20 0.9-1.1 THE INR IS OPERATIONALLY DEFINED FOR PIPPA SH PLASMA FROMPATIENTS STABILIZED ON ORAL ANTICOAGULANTS. ROUTINE ANTICOAGULANT THERAPY 2.0-3.0RECURRENT SYSTEMIC EMBOLISM/HEART VALVE REPLACEMENT 2.5-3.5 [facility], [address] [place], [place] [id number] INR International Normalized Ratio J anuary 2019 11:25am 2.5 0.9-1.1 THE INR IS OPERATIONALLY DEFINED FOR PIPPA SH PLASMA FROMPATIENTS STABILIZED ON ORAL ANTICOAGULANTS. ROUTINE ANTICOAGULANT THERAPY 2.0-3.0RECURRENT SYSTEMIC EMBOLISM/HEART VALVE REPLACEMENT 2.5-3.5 [facility], [address] [place] [address] INR International Normalized Ratio J anuary 2019 7:00am 3.1 0.9-1.1 THE INR IS OPERATIONALLY DEFINED FOR PIPPA SH PLASMA FROMPATIENTS STABILIZED ON ORAL ANTICOAGULANTS. ROUTINE ANTICOAGULANT THERAPY 2.0-3.0RECURRENT SYSTEMIC EMBOLISM/HEART VALVE REPLACEMENT 2.5-3.5 [facility], [address] [place] [address] 65429 INR International Normalized Ratio J anuary 2019 2:28pm 2.8 0.9-1.1 THE INR IS OPERATIONALLY DEFINED FOR PIPPA SH PLASMA FROMPATIENTS STABILIZED ON ORAL ANTICOAGULANTS. ROUTINE ANTICOAGULANT THERAPY 2.0-3.0RECURRENT SYSTEMIC EMBOLISM/HEART VALVE REPLACEMENT 2.5-3.5 [facility], [address] [place] [address] 06186 INR International Normalized Ratio D ecember 2018 8:42am 2.5 0.9-1.1 THE INR IS OPERATIONALLY DEFINED FOR PIPPA SH PLASMA FROMPATIENTS STABILIZED ON ORAL ANTICOAGULANTS. ROUTINE ANTICOAGULANT THERAPY 2.0-3.0RECURRENT SYSTEMIC EMBOLISM/HEART VALVE REPLACEMENT 2.5-3.5 [facility], [address] [place] [address] 58539 Blood Urea Nitrogen August 09, 2 020 3:50pm 70 mg/dL 05-03 [facility], [address] [place] [address] 58416 Blood Urea Nitrogen January 23, 2020 3:25pm 73 mg/dL 05-03 [facility], [address] [place] [address] 90253 Blood Urea Nitrogen December 09, 2019 8:50a m 95 mg/dL 05-03 Called to KENNETH Nava @ 1024 by Maggie Clark. Results read back. Repeated by: Maggie Clark 12/09/19 1024.Result Confirmation: 98 mg/dL [facility], [address] [place] [address] 18793 Sodium Level August 09, 2020 3:50pm 142 mmol/L 132-146 [facility], [address] [place] [address] 95286 Sodium Level January 23, 2020 3:25pm 139 mmol/L 132-146 [facility], [address] [place] [address] 49005 Sodium Level December 09, 2019 8:50am 139 mmol/L 132-146 [facility], [address] [place] [address] 34645 Potassium Level August 09, 2020 3:50pm 4.8 mmol/L 3.5-5.5 [facility], [address] [place] [address] 90407 Potassium Level January 23, 2020 3:25pm 4.2 mmol/L 3.5-5.5 [facility], [address] [place] [address] 73190 Potassium Level December 09, 2019 8:50am 4.3 mmol/L 3.5-5.5 [facility], [address] [place] [address] 00500 Chloride Level August 09, 2020 3:50pm 111 mmol/l 99-109 [facility], [address] [place] [address] 03366 Chloride Level January 23, 2020 3:25pm 109 mmol/l 99-109 [facility], [address] [place] [address] 29329 Chloride Level December 09, 2019 8:50am 113 mmol/l 99-109 [facility], [address] [place] [address] 85517 Carbon Dioxide Level August 09, 2020 3:50pm 22 mmol/l [facility], [address] [place] [address] 58196 Carbon Dioxide Level January 23, 2020 3:25p m 19 mmol/l [facility], [address] [place] [address] 35041 Carbon Dioxide Level December 08 0 8:50am 16 mmol/l [facility], [address] [place] [address] 83742 Anion Gap August 09, 2020 3:50pm 14 mmol/l 03-26 [facility], [address] [place] [address] Anion Gap January 23, 2020 3:25pm 15 mmol/l 03-26 [facility], [address] [place] [address] Anion Gap December 09, 2019 8:50am 14 mmol/l 03-26 [facility], [address] [place] [address] Glucose Level August 09, 2020 3:50pm 103 mg/dL -106 [facility], [address] [place] [address] Glucose Level January 23, 2020 3:25pm 177 mg/dL -106 [facility], [address] [place] [address] Glucose Level December 09, 2019 8:50am 134 mg/dL -106 [facility], [address] [place] [address] Creatinine August 09, 2020 3:50pm 3.2 mg/dL 0.5-1.1 [facility], [address] [place] [address] Creatinine January 23, 2020 3:25pm 3.0 mg/dL 0.5-1.1 [facility], [address] [place] [address] Creatinine December 09, 2019 8:50am 4.0 mg/dL 0.5-1.1 [facility], [address] [place] [address] Glomerular Filtration Rate Calc Dece mber 2019 3:50pm 19 ml/min ABOVE 60 [facility], [address] [place] [address] Glomerular Filtration Rate Calc January 23, 2020 3:25pm 20 ml/min ABOVE 60 [facility], [address] [place] [address] Glomerular Filtration Rate Calc Apri l 2019 8:50am 15 ml/min ABOVE 60 [facility], [address] [place] [address] Alanine Aminotransferase (ALT/SGPT) August 09, 2020 3:50pm 15 U/L 10-49 [facility], [address] [place] [address] Alanine Aminotransferase (ALT/SGPT) January 23, 2020 3:25pm 17 U/L -49 [facility], [address] [place] [address] Alanine Aminotransferase (ALT/SGPT) December 09, 2019 8:50am 20 U/L 10-49 [facility], [address] [place] [address] 27846 Aspartate Amino Transf (AST/SGOT) De cember 2019 3:50pm 13 U/L 0-33 [facility], [address] [place] [address] 62613 Aspartate Amino Transf (AST/SGOT) Ju ne 2019 3:25pm 16 U/L 0-33 [facility], [address] [place] [address] 27197 Aspartate Amino Transf (AST/SGOT) Ap ril 2019 8:50am 16 U/L 0-33 [facility], [address] [place] [address] Alkaline Phosphatase August 09, 2020 3:50pm 131 U/L 45-129 [facility], [address] [place] [address] Alkaline Phosphatase January 23, 2020 3:25p m 119 U/L 45-129 [facility], [address] [place] [address] Alkaline Phosphatase December 08 0 8:50am 112 U/L 45-129 [facility], [address] [place] [address] 49493 Calcium Level August 09, 2020 3:50pm 10.0 mg/dL 8.5-10.1 [facility], [address] [place] [address] Calcium Level January 23, 2020 3:25pm 9.8 mg/dL 8.5-10.1 [facility], [address] [place] [address] 59346 Calcium Level December 09, 2019 8:50am 9.8 mg/dL 8.5-10.1 [facility], [address] [place] [address] 33884 Total Bilirubin August 09, 2020 3:50pm 0.2 mg/dL 0.3-1.2 [facility], [address] [place] [address] Total Bilirubin January 23, 2020 3:25pm 0.3 mg/dL 0.3-1.2 [facility], [address] [place] [address] Total Bilirubin December 09, 2019 8:50am 0.3 mg/dL 0.3-1.2 [facility], [address] [place] [address] 60287 Albumin August 09, 2020 3:50pm 3.7 g/dL 3.2-4.8 [facility], [address] [place] [address] Albumin January 23, 2020 3:25pm 3.7 g/dL 3.2-4.8 [facility], [address] [place] [address] Albumin December 09, 2019 8:50am 3.9 g/dL 3.2-4.8 [facility], [address] [place] [address] Serum Total Protein August 09 3:50pm 7.7 g/dL 5.7-8.2 [facility], [address] [place] [address] Serum Total Protein January 23, 2020 3:25pm 7.5 g/dL 5.7-8.2 [facility], [address] [place] [address] Serum Total Protein December 09, 2019 8:50a m 7.5 g/dL 5.7-8.2 [facility], [address] [place] [address] Iron Level December 09, 2019 8:51am 129 ug/dL 65-175 Iron values ma y be falsely elevated in serum samples frompatients treated with anticoagulants (e.g., hemodialysispatients) [facility], [address] [place] [address] Iron Saturation December 09, 2019 8:51am 38 20-55 [facility], [address] [place] [address] Total Iron Binding Capacity December 082019 8:51am 341 ug/dl 250-450 [facility], [address] [place] [address] Ferritin December 09, 2019 8:51am 432 ng/mL 22-322 [facility], [address] [place] [address] Troponin I August 09, 2020 3:50pm Less than 0.015 ng/mL 0.00-0.09 Less than 0.09 NG/ML Negative0.10 - 0.77 NG/ML High Risk0.78 NG/ML or Greater Positive The WHO defined the cutoff (definition for diagnosis of [place])for this method as 0.78 ng/ml. [facility], [address] [place] [address] 06121 Troponin I December 09, 2019 8:50am Less than 0.015 ng/mL 0.00-0.09 Less than 0.09 NG/ML Negative0.10 - 0.77 NG/ML High Risk0.78 NG/ML or Greater Positive The WHO defined the cutoff (definition for diagnosis of [place])for this method as 0.78 ng/ml. [facility], [address] [place] [address] 22811 Thyroid Stimulating Hormone (TSH) De marcellaber 2019 3:50pm 2.99 uIU/mL 0.35-5.50 [facility], [address] [place] [address] 30832 Testosterone Level November 09, 2019 6:02am 5 ng/dL Adult male reference interval is based on a population ofhealthy nonobese males (BMI <30) between 19 and 39 yearsold. Warren et.al. JCEM 2017,102;9729-5089. PMID:[id number]. [facility] , [address] [facility] [address] Free Testosterone November 09, 2019 6:02am 3.8 pg/mL Performed at: [facility] [place] [id number] Director: Cecy Babin MD, Phone: [phone] [facility] , [address] [facility] [address] Lyme Disease Ab Tot Immunoglobulins March 08, 2020 9:37am Less than 0.91 ISR Negative <0.91 Equivocal 0.91 - 1.09 Positive >1.09 [facility] , [address] [facility] [address] Lyme Disease IgM Ab Quantitation Bernardo 2019 9:37am Less than 0.80 index Negative <0.80 Equivocal 0.80 - 1.19 Positive >1.19 IgM levels may peak at 3-6 weeks post infection, then gradually decline.Performed at: [facility] [place], [place] [id number] Director: Cecy Babin MD, Phone: [phone] [facility] , [address] [facility] [address] Pro-B-Type Natriuretic Peptide December 09, 2019 8:50am 1806.00 pg/mL 0.00-450 [facility], [address] [facility] [address] Microbiology Results Procedure Source Result Collection Date/Time Result Date/Time Result Comment Performing Site Respiratory Panel (PCR) Nasopharyngeal No Organisms Detected August 09, 2020 3:23pm August 09, 2020 4:32pm [facility], [address] [facility] [address] Diagnostic Imaging Reports Report Dictated Date/Time Dictated By Status Radiology Report August 13, 2019 2:30pm Young Lira MD completed [place] [id number] [place] [id number] [phone] NAME SEX PT STATUS ACCOUNT NUMBER BR[facility] GOMEZ REG REF [id number] ORDERING PHYSICIAN LOCATION MEDICAL RECORD NO. Julain Herrera DO LAB [id number] ATTENDING PHYSICIAN DATE OF DATE OF EXAM/TIME [...] Trans Dt/Tm: Trans by: DT Prt Dt/Tm: 5701-4626: Total DLP = 0.00 mGy-cm Fluoroscopy Time (in secs): Radiology Report October 20, 2019 11:28jonna Lira MD completed [facility] [address] [place] [address] [phone] NAME SEX PT STATUS ACCOUNT NUMBER [facility] REG REF [id number] ORDERING PHYSICIAN LOCATION MEDICAL RECORD NO. Tono Guardado DO RAD [id number] ATTENDING PHYSICIAN DATE OF DATE OF EXAM/TIME Tono Guardado DO 1940 10/20/19 / 1101 TYPE / EXAM Xray Cervical spine complete [...] Trans Dt/Tm: Trans by: DT Prt Dt/Tm: 9412-7451: Total DLP = 0.00 mGy-cm Fluoroscopy Time (in secs): Radiology Report December 09, 2019 10:25am Young Lira MD completed [facility] [address] [place] [address] [phone] NAME SEX PT STATUS ACCOUNT NUMBER [facility] REG ER [id number] ORDERING PHYSICIAN LOCATION MEDICAL RECORD NO. Ko Ramos MD ER [id number] ATTENDING PHYSICIAN DATE OF DATE OF EXAM/TIME [...] Date Time CC: Young Lira MD; Tara HOUSEKEEPER MANAGER Dylon Techn: FROSA Trans Dt/Tm: Trans by: DT Prt Dt/Tm: [id number]: Total DLP = 0.00 mGy-cm Fluoroscopy Time (in secs): Radiology Report January 23, 2020 5:08pm Floyd Cain MD completed [facility] [address] [place] [id number] [phone] NAME SEX PT STATUS ACCOUNT NUMBER [facility]OME[facility] [id number] ORDERING PHYSICIAN LOCATION MEDICAL RECORD NO. Kyaw Richardson ER [id number] ATTENDING PHYSICIAN DATE OF DATE OF EXAM/TIME Tara Osborne NP 1940 01[birth year]/201646 TYPE / EXAM CT Head [...] Floyd Cain MD; Tara VÁZQUEZ Dylon Techn: FROSA Trans Dt/Tm: Trans by: DT Prt Dt/Tm: : Total DLP = 710.00 mGy-cm : Total Radiation Dose = 2.2010 mSv Lifetime Dose: 8.6060 mSv Radiology Report January 23, 2020 5:41pm Floyd Cain MD completed [facility] [address] [place] [address] [phone] NAME SEX PT STATUS ACCOUNT NUMBER [facility] GOME[facility] ER [id number] ORDERING PHYSICIAN LOCATION MEDICAL RECORD NO. Kyaw YOUNG [facility] ER [id number] ATTENDING PHYSICIAN DATE OF DATE OF EXAM/TIME Tara Osborne NP 1940 01/23/20 / 1647 TYPE / EXAM Xray Chest One View [...] Date Time CC: Floyd Cain MD; Tara HOUSEKEEPER MANAGER Dylon Techn: FROSA Trans Dt/Tm: Trans by: DT Prt Dt/Tm: 0513-1803: Total DLP = 0.00 mGy-cm Fluoroscopy Time (in secs): Health Concerns Health Concerns may be documented in an alternate section. Advance Directives Advance Directive Response Recorded Date/Time Advanced Directive No 2019 3:26pm MOLST No December 06 0 10:58am Advance Directives on File or in chart? No December 07, 2019 10:58am Does Patient have a DNR? No August 09, 2020 3:26pm Healthcare Proxy Yes Jul 3:26pm Health Care Proxy Name Nanette Gomez December 07, 2019 10:58am Health Care Proxy Phone Number [phone] December 07, 2019 10:58am Living Will Yes December 062019 10:58am Chief Complaint and Reason for Visit Chief Complaint I48.91 Office visit J06.9 J06.9,I48.91 I48.91 I48.91, I48.2 [...] rival/Admit Date Discharge/Depart Date Provider(s) Registered Referred [facility] August 09, 2019 8:15am Kaz Cid MD Departed Physician/Provider Office Visit [facility] August 13, 2019 1:10pm August 13, 2019 2:08pm Julian whipple DO Registered Referred [facility] August 13, 2019 2:11pm Julian Herrera DO Registered Referred [facility] Drop Off August 31, 2019 7:00am Julian Herrera DO Registered Referred [facility] September 02, 2019 11:16am Julian Herrera DO Registered Outpatient [facility] September 02, 2019 5:06pm Julian Herrera DO Registered Referred [facility] Drop Off September 14, 2019 7:00am Ujlian Herrera , DO Departed Physician/Provider Office Visit [facility] September 14, 2019 10:17am September 14, 2019 11:39am Julian Herrera , DO Registered Referred [facility] Drop Off October 12, 2019 7:10am Julian Herrera , DO Registered Outpatient [facility] October 12, 2019 11:44am Julian Herrera , DO Registered Referred [facility] October 19, 2019 6:00am Tono Guardado DO Registered Outpatient [facility] October 19, 2019 2:59pm Tono Guardado DO Departed Physician/Provider Office Visit [facility] October 20, 2019 8:48am October 20, 2019 9:50am Lillian Friedman Registered Referred [facility] October 20, 2019 9:54am Tono Guardado DO Registered Referred [facility] Drop Off November 09, 2019 5:55am Tray Vazquez Registered Outpatient [facility] November 09, 2019 8:42am Tono Guardado DO Registered Referred [facility] Drop [facility] November 23, 2019 6:05am Kaz Cid MD Registered Referred [facility] November 26, 2019 8:30am [facility], [facility] 8[facility]00am Kaz Cid MD Registered Referred [facility] December 06, 2019 8:00am Kaz Cid MD Departed Physician/Provider Office Visit [facility] December 09, 2019 7:25am December 09, 2019 8:08am Tara Osborne Departed Emergency [facility] ER December 09, 2019 8:11am December 09, 2019 10:40am null Registered Referred [facility] December 13, 2019 7:00am K athy Dylon [facility], [facility] 8:00am K athy Dylon Registered Referred [facility] December 22, 2019 7:45am Tara Dylon Registered Referred [facility] December 23, 2019 8:00am Tara Dylon Registered Referred [facility] December 24, 2019 8:00am Tara Dylon Registered Referred [facility] December 27, 2019 7:30am Kaz Cid MD Registered Referred [facility] December 30, 2019 8:27am Tara Dylon Registered Referred [facility] January 06, 2020 8:43am Tara Dylon Registered Referred [facility] January 07, 2020 8:18am Tara Dylon Registered Referred [facility] January 14, 2020 6:00am [facility], [facility] 6[facility]00am Anjana Lucio NP Departed Emergency [facility] January 23, 2020 3:00pm January 23, 2020 5:42pm null Departed Physician/Provider Office Visit [facility] January 25, 2020 1:12pm January 25, 2020 1:36pm Carlos desir [facility], 2020 9:02am Anjana Lucio NP Registered Outpatient [facility] February 14, 2020 12:46pm Anjana Lucio [facility] 11:08am [facility], 2020 6:28am Tara Osborne Departed Physician/Provider Office Visit [facility] March 08, 2020 8:26am March 08, 2020 9:28am Tono Guardado [facility], [facility] 9:25am Tara Osborne Departed Physician/Provider Office Visit [facility] March 17, 2020 2:08pm March 17, 2020 3:45pm Lillian Friedman [facility] 2020 6:00am Tono Guardado [facility], 2020 6:23am Tara Osborne Departed Physician/Provider Office Visit [facility] May 16, 2020 8:27am May 16, 2020 10:03am Tono Guardado DO [facility] 8:54am Tara Osborne [facility] June [facility], 2020 9:23am Tono Guardado DO Departed Physician/Provider Office Visit [facility] June 23, 2020 1:13pm June 23, 2020 2:54pm Tono Guardado DO [facility] 30, 2020 11:15am Tono Guardado , DO [facility] July 07, 2020 9:25am Tono Guardado DO Departed Physician/Provider Office Visit [facility] July 11, 2020 10:41am July 11, 2020 11:45am Tono Guardado DO Registered Referred [facility] July 26, 2020 10:55am Destin Arthur MD Admitted Inpatient [facility] August 09, 2020 6:05pm Shekhar Louis MD Recent Diagnosis Onset Date Atrial fibrillation [...] Not Specified Multiple sclerosis Unknown Functional Status No Functional Status information available Goals Goals may be documented in an alternate section. Immunizations Immunization Event Date Not Given Reason Dose Number Commercial Lines Manager Lot Number Vaccine Information Statement (VIS) Deta il pneumococcal conjugate PCV Mayobe r 2016 zoster (shingles) vaccine, live, sc November 03, 2016 pneumococcal polysaccharide [id number] vaccine September 14, 2019 [id number] tetanus, diphtheria, acell pertussis 7yrs &up January 23, 2020 [id number] Mental Status Observation Response Lobo e Recorded Impairments Hearing/Auditory August 09, 2020 2:10pm Medical Equipment No Medical Equipment Information available Insurance Providers Guarantor BRITTON GOMEZ Address [address] [place] [address] Contact Info. Home Phone: Payer Policy Id Coverage Id Subscriber's Name Subscriber Id Effective Date Expiration Date [facility] [id number] BRITTON GOMEZ [id number] [facility] [id number] BRITTON GOMEZ [id number] 2011 MEDICARE [place] [id number] BRITTON GOMEZ [id number] 2011 MEDICARE [id number] BRITTON GOMEZ [id number] Self Pay Self N/A Plan of Treatment agrees to decrease warfarin schedule new dosage schedule is 2mg on Friday , friday, and the other four days will be 3mg repeat inr in about one week if condition worsens, then go to ER hydrocortisone prn f/u dermatolgist f/u stencil inspector hydrocortisone as ordered if worsens, then go to ER and patient denies new foods, new soaps, new detergents, denies pets f/u cycle director f/u stencil inspector hydrocortisone prn itch hydrocortisone provides relief for [...] weeks stable continue current medical treatment 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 [address] Vlad Elizabeth MD Work Phone: [phone] [facility] [address] [facility] [address] L29.9 - Pruritus, unspecified May 16, 2020 [facility] [address] [facility] [address] [facility] [address] B07.9 - Viral wart, unspecified May 16, 2020 dermatology Future Procedures Future procedure information is unavailable Future Medications Future medication information is unavailable Patient Instructions A-fib (Atrial Fibrillation) (GEN) Social History Smoking Status Status Date of Observation Never smoker August 09, 2020 3:4 0pm Observation Status Observation Response Lobo e of Response Smoking Status Never smoker August 09, 2020 3:40pm Alcohol Use No August 09, 2020 3:40pm [...] 09, 2019 8:27am Respiratory rate 18 /min 12-24 December 09, 2019 8:27am Oxygen saturation by Pulse [...] 23, 2020 6:47pm Respiratory rate 20 /min -January 23, 2020 6:47pm Oxygen saturation by Pulse [...] 25, 2020 2:14pm Respiratory rate 24 /min -January 25, 2020 2:14pm Oxygen saturation by Pulse [...] 11, 2020 10:50am Height 67 [in_i] August 09, 2020 3:26pm Weight 186.00 [lb_av] August 09, 2020 3:26pm Body Temperature 98.0 [degF] 97.6-99.5 August 09, 2020 9:37pm Heart Rate 86 /min 60-100 August 09, 2020 9:37pm Respiratory rate 20 /min 12-August 09, 2020 9:37pm Oxygen saturation by Pulse oximetry 98 % 95- 100 August 09, 2020 9:37pm BP Systolic 140 mm[Hg] August 09, 2020 9:37pm BP Diastolic 89 mm[Hg] August 09, 2020 9:37pm
--- OUTSIDE RECORDS SUMMARY | 2020-09-06 20:03 | CCD | Continuity of Care Document ---
Author Author Lasha DUARTE MD Organization Unknown Address [place] [address] Phone [phone] Care Team Providers Care Facing Baster Jumpbasting Name Role Phone Devon Gee MD AUTM [phone] Boston Melgar MD AUTM [phone] Tray Vazquez MD AUTM [phone] Karl Weir MD AUTM [phone] Tara Osborne SAMPLE COLLECTOR AUTM [phone] Problems Active Problems Provider Date Coronary arteriosclerosis Vivien Yaquelin Metzgerw, PA-C Onset: 2010 Coronary artery bypass grafts x 2 Vivien Yaquelin Symenow, PA-C Onset : 07/02/2011 History of coronary artery bypass grafting Vivien Morel, P A-C Onset: 06/28/2015 Patient post percutaneous transluminal coronary angiop lasty Vivienyaquelin Herreraenow, PA-C Onset: 07/02/2011 Aortic valve disorder Vivien E Symenow, PA-C Onset: 07/02/2011 Transplantation of heart valve Vivien E Symenow, PA-C Onset: 0 10/25/2016 Chronic atrial fibrillation Vivien E Symenow, PA-C Onset: 10/09 Aneurysm of thoracic aorta Vivien E Symenow, PA-C Onset: 10/25 Mitral valve disorder Vivien E Symenow, PA-C Onset: 07/02/2011 Essential hypertension Vivien E Javierenow, PA-C Onset: 5 Pure hypercholesterolemia Vivien E [...] lly Exercise Type/Frequency Exercises daily tend the [email or web address] Exercise Limitations Shortness Of Breath Exercise Limitations [...] Diastolic Left Arm 64 mmHg Sitting Results Description No Information Available Procedures Date Code Description Status 01/31/2020 38464 ECG 12-Lead Completed Medical Devices Description No [...] PA-C I25.1 0 Athscl heart disease of [place] coronary artery w/o ang pctrs I25.2 Old [...] surve illance Assessments Date Code Description Provider 05/23/2020 I34.0 Nonrheumatic mitral (valve) insu fficiency [...] MD 03/31/2020 I25.10 Atherosclerotic heart disease of [place] coronary artery with Harrison Duarte MD 02/21/2020 I34.0 Nonrheumatic mitral (valve) insu fficiency Harrison Duarte MD 02/21/2020 I35.0 Nonrheumatic aortic (valve) sten osis Harrison Duarte MD 02/21/2020 I50.32 Chronic diastolic (congestive) h eart failure Harrison Duarte MD 02/21/2020 I25.10 Atherosclerotic heart disease of [place] coronary artery with Harrison Duarte MD 01/31/2020 I25.10 Atherosclerotic heart disease of [place] coronary artery with Vivien Morel PA-C 01/31/2020 I25.2 Old myocardial infarction TRISTAN GhoshC 01/31/2020 Z95.1 Presence of aortocoronary bypass graft TRISTAN GhoshC 01/31/2020 Z95.5 Presence of coronary angioplasty implant and graft TRISTAN GhoshC 01/31/2020 I50.32 Chronic diastolic (congestive) h eart failure TRISTAN GhoshC 01/31/2020 I11.0 Hypertensive heart disease with heart failure TRISTAN GhoshC 01/31/2020 I35.0 Nonrheumatic aortic (valve) sten osis TRISTAN GhoshC 01/31/2020 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 TRISTAN GhoshC 01/31/2020 I71.2 Thoracic aortic aneurysm, withou t rupture Vivien Morel, COREY-C 01/31/2020 I34.0 Nonrheumatic mitral (valve) insu fficiency Vivien Morel, PA-C 01/31/2020 I34.2 Nonrheumatic mitral (valve) sten osis Vivien Morel, PA-C 01/31/2020 I48.21 Permanent atrial fibrillation Ahsan Canseco, PA-C 01/31/2020 E78.2 Mixed hyperlipidemia Vivien yoon, COREY-C 01/31/2020 I73.9 Peripheral vascular disease, uns pecified Vivien Morel, COREY-C 01/31/2020 Z71.3 Dietary counseling and surveilla kishan Morel PA-C Plan of Treatment Future Appointment(s):* 08/01/2020 10:15 am - Vivien Morel PA-C at Main Office 01/31/2020 - Vivien Morel PA-C* I25.10 Atherosclerotic heart disease of [place] coronary artery with * I25.2 Old myocardial [...]
--- OUTSIDE RECORDS SUMMARY | 2020-09-06 20:03 | CCD | Continuity of Care Document ---
Author Author Lasha AVERY PA-C Organization Unknown Address [address] [place] [address], [place] [address] Phone [phone] Care Team Providers Care Extrusion Machine Operator Name Role Phone Devon Gee MD AUTM [phone] Boston Melgar MD AUTM [phone] Tray Vazquez MD AUTM [phone] Karl Weir MD AUTM [phone] Tono Guardado DO AUTM [phone] Problems Active Problems Provider Date Coronary arteriosclerosis Vivien Metzgerw, PA-C Onset: 2010 Coronary artery bypass grafts x 2 Vivien Metzgerw, PA-C Onset : 07/02/2011 History of coronary artery bypass grafting Vivien Avery, P A-C Onset: 06/28/2015 Patient post percutaneous transluminal coronary angiop lasty Vivien Metzgerw, PA-C Onset: 07/02/2011 Aortic valve disorder Vivien Metzgerw, PA-C Onset: 07/02/2011 Transplantation of heart valve Vivienyaquelin Metzgerw, PA-C Onset: 0 10/25/2016 Chronic atrial fibrillation Vivien Yaquelin Metzgerw, PA-C Onset: 10/09 Aneurysm of thoracic aorta Vivien Yaquelin Metzgerw, PA-C Onset: 10/25 Mitral valve disorder Vivien E [place], PA-C Onset: 07/02/2011 Essential hypertension Vivienyaquelin Metzgerw, PA-C Onset: 5 Pure hypercholesterolemia Vivienyaquelin Avery, PA-C Onset: 2010 Obesity Vivienyaquelin Herreraenow, PA-C Onset: 07/02/2011 Peripheral vascular disease Vivien Avery PA-C Onset: 06/12 Mixed hyperlipidemia Vivien Avery PA-C Onset: 04/29/2017 Old myocardial infarction Vivien Avery PA-C Onset: 2017 Dietary management surveillance Vivien Avery PA-C Onset: 10/30/2017 Hypertensive heart disease with heart failure Vivien Avery PA-C Onset: 10/30/2017 Chronic diastolic heart failure Vivien Avery PA-C Onset: 10/30/2017 Permanent atrial fibrillation Vivien Avery PA-C Onset: Social History Type Date Description [...] 27 Procedures Date Code Description Status 08/01/2020 29392 ECG 12-Lead Completed Medical Devices Description No Information Available Encounters Type Date Location Provider Dx Diagnosis Office Visit 08/01/2020 10:15a Main Office Vivien Avery PA-C I25.1 0 Athscl heart disease of [place] coronary artery w/o ang pctrs I25.2 Old [...] Dietary counseling and surve illance Office Visit 05/23/2020 3:11p Main Office Harrison [...] Provider 08/01/2020 I25.10 Atherosclerotic heart disease of [place] coronary artery with Vivien Avery PA-C 08/01/2020 I25.2 Old myocardial infarction Vivien Avery, PA-C 08/01/2020 Z95.1 Presence of aortocoronary bypass graft Vivien Avery, PA-C 08/01/2020 Z95.5 Presence of coronary angioplasty implant and graft Vivien Avery, PA-C 08/01/2020 I50.32 Chronic diastolic (congestive) h eart failure Vivien Avery, PA-C 08/01/2020 I11.0 Hypertensive heart disease with heart failure Vivien Avery, PA-C 08/01/2020 I35.0 Nonrheumatic aortic (valve) sten osis Vivien Avery, PA-C 08/01/2020 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 Vivien Avery, PA-C 08/01/2020 I71.2 Thoracic aortic aneurysm, withou t rupture Vivien Avery, PA-C 08/01/2020 I34.0 Nonrheumatic mitral (valve) insu fficiency Vivien Avery, PA-C 08/01/2020 I34.2 Nonrheumatic mitral (valve) sten osis Vivien Avery, PA-C 08/01/2020 I48.21 Permanent atrial fibrillation Ahsan Canseco, PA-C 08/01/2020 I73.9 Peripheral vascular disease, uns pecified Vivien TRISTAN SchulerC 08/01/2020 Z71.3 Dietary counseling and surveilla nce Vivien Avery PA-C 06/26/2020 I34.0 Nonrheumatic mitral (valve) insu [...] MD 03/31/2020 I25.10 Atherosclerotic heart disease of [place] coronary artery with Harrison Duarte MD 02/21/2020 I34.0 Nonrheumatic mitral (valve) insu fficiency Harrison Duarte MD 02/21/2020 I35.0 Nonrheumatic aortic (valve) sten osis Harrison Duarte MD 02/21/2020 I50.32 Chronic diastolic (congestive) h eart failure Harrison Duarte MD 02/21/2020 I25.10 Atherosclerotic heart disease of [place] coronary artery with Harrison Duarte MD Plan of Treatment Future Appointment(s):* 01/31/2021 10:15 am - Vivien Avery PA-C at Main Office 08/01/2020 - Vivien Avery PA-C* I25.10 Atherosclerotic heart disease of [place] coronary artery with * I25.2 Old myocardial [...]
--- OUTSIDE RECORDS SUMMARY | 2020-09-06 20:04 | CCD | Continuity of Care Document ---
Author Author [facility] Address [address] [place] [address] Phone Support Name Relationship Address Phone Devon Gee PRS [address] [place] [address] Lillian Vazquez PRS [address] [place] [address] Kaz Cid PRS [address] [place] [address] Julian Herrera PRS [address] [place] [address] Tono Guardado PRS [address] [place] [address] Tara Osborne PRS [address] [place] [address] Riki Ramos PRS [address] [place] [address] An[place] [address] Kyaw Richardson PRS [address] [place] [address] Evan De Oliveira PRS [address] [place] [address] Carlos Drummond PRS [address] [place] [address] Allergies, Adverse Reactions, Alerts No known allergies. Medications Medication Status Dose Units Route Directions Qty Days Start Date End Date Instructions Omeprazole Discontinued 40 MG PO Once Per Day December 15, 2018 9:19am April 20, 2019 10:06am Furosemide (Lasix) 40 mg tablet Disc ontinued 40 MG PO O nce Per Day April 20 9:43am December 20, 2019 9:22am Rosuvastatin (Crestor) 20 mg tablet Discontinued 20 MG PO O nce Per Day April 20 9:43am May 16, 2020 9:13am Sertraline Discontinued [...] 2016 2:14pm March 19, 2016 10:21am Aa 6-Qouz-X[place]-Hrb 126 (Gabadone Capsule) [id number] mg capsule Discontinued 300 MG PO Once [...] 1 TAB PO Once Per Day June 05, 2016 9:02am August 19, 2017 [...] 1:43pm Zoster Vaccine Live (Pf) (Zostavax Vial) 29374 UNIT/0.65 ML suspension for reconstitution Discontinued 51970 UNIT SQ ONE TIME 1 October 31, [...] 2 MG PO 2 Times Per Day February 20, 2017 1:54pm June [...] 2017 6:38am May 29, 2017 12:08pm Ipratropium [place] Discontinued 2 SPRAYS NA 2 Times Per Da y 1 May 19, 2017 3: 52pm December 09, 2018 6:03am Ipratropium [place] Discontinued 2 SPRAYS NA 2 Times Per Da y May 19, 2017 3: 52pm December 09, 2019 7:50am Pneumoc 13-Anna Conj-Dip Cr(Pf) (Prevnar 13*) 0.5 ML sy ringe Discontinued 0.5 ML IM ONE TIME May 19, 2017 4:09pm May 4:13pm Flu Vaccine [id number](5 Yr Up) (Afluria 1543-3701) 45 MCG/0.5 ML suspension Discontinued 45 MCG [...] Times Per Day 60 June 22, 2017 2:pm December 26, 2017 11:40am Lisinopril Discontinued 5 MG PO Once Per Day June 22, 2017 2:26pm May 19, 2018 8:21am Ferrous Gluconate Discontinued 1 TAB PO Once Per Day June 22, 2017 2:26pm December 15, 2017 5:49am Tamsulosin Discontinued 1 TAB PO Once Per Day August 19, 2017 9:48am December 09, 2018 [...] 5 MG PO Once Per Day December 26, 2017 11:40am January 08, 2018 [...] Per Day 180 January 08, 2018 3:2 pm December 28, 2018 1:12pm Warfarin Discontinued 2 MG PO 2 Times Per Day January 14, 2018 5:08pm February [...] 2 MG PO 2 Times Per Day February 10, 2018 11:44am March [...] 2 MG PO 2 Times Per Day March 11, 2018 12:19pm April [...] MG PO 2 Times Per Day May 06, 2018 9:28am May 13, 2018 [...] nce Per Day May 19, 2018 8 :April 20, 2019 9:45am Sertraline Discontinued 1 TAB PO Once Per Day May 19, 2018 8:December 09, 2018 7:53am Sertraline Discontinued 1 TAB PO Once Per Day May 19, 2018 8:April 20, 2019 9:45am Lisinopril Discontinued 5 MG PO Once Per Day May 19, 2018 8:June 15, 2018 7:20am Colchicine (Colcrys) 0.6 MG tablet D iscontinued 0.6 MG PO 2 Times Per Day May 19, 2018 8:December 09, 2018 7:53am Colchicine (Colcrys) 0.6 MG [...] Per Day June 15, 2018 7:am December 09, 2018 8:09am Lisinopril Discontinued 5 MG PO Once Per Day June 15, 2018 7:am December 28, 2018 1:10pm Ferrous Gluconate Discontinued 1 TAB PO Once Per Day June 15, 2018 7:20am December 09, 2018 8:09am Ferrous Gluconate Discontinued 1 TAB PO Once Per Day June 15, 2018 7:20am December 28, 2018 1:13pm Amoxicillin Discontinued 2 GM PO ONE TIME June 29, 2018 5:39pm December 09, 2018 [...] 2 MG Lisinopril Discontinued 0 .ROUTE .COMPLEX December 28, 2018 1:10pm December 09, 2019 9:01am TAKE ONE TABLET BY MOUTH EVERY DAY Metoprolol Tartrate Discontinued 0 .ROUTE .COMPLEX December 28, 2018 1:12pm November 23, 2019 12:50pm TAKE ONE TA BLET BY MOUTH TWICE A DAY Ferrous Gluconate Discontinued 0 .ROUTE .COMPLEX December 28, 2018 1:12pm December 09, 2019 9:01am TAKE ONE TABLET BY MOUTH EVERY DAY Allopurinol Discontinued 0 .ROUTE .COMPLEX December 28, 2018 1:13pm December 09, 2019 [...] 25 MG PO Once Per Day 90 90 December 07, 2019 1 1:57am December 09, 2019 9:01am 1/2 in the a m and 1/2 in the pm Furosemide (Lasix) 40 mg tablet Disc ontinued 40 MG PO O nce Per Day 90 December 20, 2019 9:22 am December 22, [...] Active Problems Medical Problem Onset Date Status Atrial fibrillation with controlled ventricular respon se Active Scabies Active Hypertension, essential, benign January 06, 2015 Active Congestive heart failure (CHF) Active Atrial fibrillation Ac tive On warfarin therapy December 08, 2018 Active Hypercholesterolemia January 06, 2015 Active CKD (chronic kidney disease) stage 3, GFR 30-59 ml/min Active Itch of skin Active Chronic atrial fibrillation June 11, 2016 Active Diabetes mellitus type 2 in obese [facility] 2014 Active Adenocarcinoma of prostate Active Chronic renal failure Active Inactive/Resolved Problems Medical Problem Onset Date Status 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, 2015 Resolved Carpal tunnel syndrome on right Febr uary 2014 Resolved Exercise-induced shortness of breath Resolved Peripheral [...] olved Viral wart on finger R esolved Tachycardia Resolved Bug bite without infection Resolved Ischemic colitis February 19, 2016 Resolved Weakness Resolved Aortic valve prosthesis present Resolved Viral upper respiratory infection Resolved Foreign body in hand July 25, 2014 Resolved Itching due to drug Re solved Prostate nodule Resolv ed Vitamin D deficiency September 24, 2018 Resolved Laceration of ear, external, left, complicated Resolved Late eff nerv injury shld/arm Decemb er 2013 Resolved Procedures Procedure Date Performed Status CT Head without contrast January 23, 2020 3:47pm completed Xray Chest One View January 23, 2020 3:48pm completed Xray Chest One View December 09, 2019 9:19a m completed Xray Cervical spine complete October 092019 10:02am completed Xray Chest 2 view PA/LAT August 2:24pm completed XRAY HIP RT 2-3 VIEW July 30, 2019 9:20am completed XRAY HIP LT 2-3 VIEW July 30, 2019 9:20am completed Xray Chest 2 view PA/LAT July 282018 10:39am completed CT Abd/pel w/o contrast July 10:24am completed Relevant Diagnostic Tests and/or Laboratory Data Laboratory Results Test Date/Time Result Interpretation Reference Range Result Comment Performing Site INR International Normalized Ratio J gabriella 2019 12:46pm 1.8 INR International Normalized Ratio arch 2019 8:42am 1.8 INR International Normalized Ratio [facility] 2019 2:59pm 2.0 INR International Normalized Ratio [facility] 2019 11:55am 1.7 INR International Normalized Ratio J anuary 2019 5:06pm 2.5 White Blood Count January 23, 2020 3:25pm 5.4 10e3/uL 4.45-10.71 [facility], [address] [place] [id number] White Blood Count December 09, 2019 8:50am 4.9 10e3/uL 4.45-10.71 [facility], [address] [place] [address] 42058 Red Blood Count January 23, 2020 3:25pm 3.52 10e6/uL 4.3-6.1 [facility], [address] [place] [address] Red Blood Count December 09, 2019 8:50am 2.85 10e6/uL 4.3-6.1 [facility], [address] [place] [address] Hemoglobin January 23, 2020 3:25pm 11.7 g/dL [facility], [address] [place] [address] Hemoglobin December 09, 2019 8:50am 9.2 g/dL [facility], [address] [place] [address] Hematocrit January 23, 2020 3:25pm 34.6 % 42-52 [facility], [address] [place] [address] Hematocrit December 09, 2019 8:50am 26.3 % 42-52 [facility], [address] [place] [address] Mean Corpuscular Volume January 22 3:25pm 98.3 fl 80-96 [facility], [address] [place] [address] Mean Corpuscular Volume December 09, 2019 8:50am 92.3 fl 80-96 [facility], [address] [place] [address] Mean Corpuscular Hemoglobin January 3:25pm 33.2 pg 27-31 [facility], [address] [place] [address] Mean Corpuscular Hemoglobin December 082019 8:50am 32.3 pg 27-31 [facility], [address] [place] [address] Mean Corpuscular Hemoglobin Concent January 23, 2020 3:25pm 33.8 g/dl [facility], [address] [place] [address] Mean Corpuscular Hemoglobin Concent December 09, 2019 8:50am 35.0 g/dl 37 [facility], [address] [place] [address] Red Cell Distribution Width January 3:25pm 15 % 11-15 [facility], [address] [place] [address] Red Cell Distribution Width December 082019 8:50am 15 % 11-15 [facility], [address] [place] [address] Platelet Count January 23, 2020 3:25pm 127 10e3/ul 130-472 [facility], [address] [place] [address] Platelet Count December 09, 2019 8:50am 123 10e3/ul 130-472 [facility], [address] [place] [address] 40822 Mean Platelet Volume January 23, 2020 3:25p m 11.3 fl 9.1-13.1 [facility], [address] [place] [address] Mean Platelet Volume December 08 0 8:50am 10.8 fl 9.1-13.1 [facility], [address] [place] [address] Neutrophils (%) (Auto) January 22 3:25pm 66.8 % [address] [place] [address] LABORATORY, [address] [place] [address] Neutrophils (%) (Auto) December 08, 020 8:50am 62.0 % [address] [facility], [address] [place] [address] Absolute Neutrophil January 23, 2020 3:25pm 3.6 # 1.7-7.6 [facility], [address] [place] [address] Absolute Neutrophil December 09, 2019 8:50a m 3.0 # 1.7-7.6 [facility], [address] [place] [address] Lymphocytes (%) (Auto) January 22 3:25pm 18.8 % 14-46 [facility], [address] [place] [address] Lymphocytes (%) (Auto) December 08, 020 8:50am 23.4 % 14-46 [facility], [address] [place] [address] Lymphocytes # (Auto) January 23, 2020 3:25p m 1.0 # 0.6-4.6 [facility], [address] [place] [address] Lymphocytes # (Auto) December 08 0 8:50am 1.1 # 0.6-4.6 [facility], [address] [place] [address] 03664 Monocytes (%) (Auto) January 23, 2020 3:25p m 9.9 % 4-12 [facility], [address] [place] [address] Monocytes (%) (Auto) December 08 0 8:50am 10.9 % 12 [facility], [address] [place] [address] 52632 Monocytes # January 23, 2020 3:25pm 0.5 # 0.2-1.2 [facility], [address] [place] [address] [phone] Monocytes # December 09, 2019 8:50am 0.5 # 0.2-1.2 [facility], [address] [place] [address] 08352 Eosinophils (%) (Auto) January 22 20 3:25pm 3.9 % 0-7 [facility], [address] [place] [address] Eosinophils (%) (Auto) December 08 020 8:50am 2.9 % 0-7 [facility], [address] [place] [address] Absolute Eosinophils (CBC) January 3:25pm 0.2 # 0.0-0.5 [facility], [address] [place] [address] Absolute Eosinophils (CBC) November 8:50am 0.1 # 0.0-0.5 [facility], [address] [place] [address] Basophils (%) (Auto) January 23, 2020 3:25p m 0.6 % 0.4-1.3 [facility], [address] [place] [address] Basophils (%) (Auto) December 08 0 8:50am 0.4 % 0.4-1.3 [facility], [address] [place] [address] Absolute Basophils (CBC) January 23, 2020 3:25pm 0.0 # 0.0-0.2 [facility], [address] [place] [address] Absolute Basophils (CBC) December 09, 2019 8:50am 0.0 # 0.0-0.2 [facility], [address] [place] [address] 78992 Immature Granulocyte % (Auto) January 092019 3:25pm 0.0 % 0-2 [facility], [address] [place] [address] Immature Granulocyte % (Auto) December 09, 2019 8:50am 0.4 % 0-2 [facility], [address] [place] [address] Absolute Immature Granulocyte (auto January 23, 2020 3:25pm 0.0 # 0-0.1 [facility], [address] [place] [address] Absolute Immature Granulocyte (auto December 09, 2019 8:50am 0.0 # 0-0.1 [facility], [address] [place] [address] Add Manual Differential January 22 3:25pm No [facility], [address] [place] [address] Add Manual Differential December 09, 2019 8:50am No [facility], [address] [place] [address] Prothrombin Time July 07, 2020 9:27a m 25.6 SECONDS 9.6-12.3 [facility], [address] [place] [address] Prothrombin Time June 30, 2020 11:25am 39.2 SECONDS 9.6-12.3 [facility], [address] [place] [address] Prothrombin Time June 23, 2020 9:40a m 34.0 SECONDS 9.6-12.3 [facility], [address] [place] [address] Prothrombin Time May 23, 2020 8:56am 25.7 SECONDS 9.6-12.3 [facility], [address] [place] [address] Prothrombin Time May 12, 2020 6:26am 32.4 SECONDS 9.6-12.3 [facility], [address] [place] [address] Prothrombin Time March 31, 2020 6:17am 25.2 SECONDS 9.6-12.3 [facility], [address] [place] [address] Prothrombin Time March 08, 2020 9:37am 22.5 SECONDS 9.6-12.3 [facility], [address] [place] [address] Prothrombin Time February 28, 2020 6:27am 29.5 SECONDS 9.6-12.3 [facility], [address] [place] [address] Prothrombin Time February 18, 2020 11:47am 16.9 SECONDS 9.6-12.3 [facility], [address] [place] [address] Prothrombin Time February 10, 2020 9:13am 18.7 SECONDS 9.6-12.3 [facility], [address] [place] [address] Prothrombin Time January 23, 2020 3:25pm 24.4 SECONDS 9.6-12.3 [facility], [address] [place] [address] Prothrombin Time January 21, 2020 6:17am 22.3 SECONDS 9.6-12.3 [facility], [address] [place] [address] Prothrombin Time January 14, 2020 6:12am 37.7 SECONDS 9.6-12.3 [facility], [address] [place] [address] 76828 Prothrombin Time January 07, 2020 8:35am 26.5 SECONDS 9.6-12.3 [facility], [address] [place] [address] Prothrombin Time January 06, 2020 8:35am 40.3 SECONDS 9.6-12.3 [facility], [address] [place] [address] Prothrombin Time December 30, 2019 8:30am 31.9 SECONDS 9.6-12.3 [facility], [address] [place] [address] Prothrombin Time December 27, 2019 8:40am 26.4 SECONDS 9.6-12.3 [facility], [address] [place] [address] Prothrombin Time December 24, 2019 8:35am 25.7 SECONDS 9.6-12.3 [facility], [address] [place] [address] Prothrombin Time December 23, 2019 8:18am 41.9 SECONDS 9.6-12.3 [facility], [address] [place] [address] Prothrombin Time December 22, 2019 7:56am 78.2 SECONDS 9.6-12.3 [facility], [address] [place] [address] 75735 Prothrombin Time December 15, 2019 8:17am 28.9 SECONDS 9.6-12.3 [facility], [address] [place] [address] Prothrombin Time December 13, 2019 7:19am 17.0 SECONDS 9.6-12.3 [facility], [address] [place] [address] 31276 Prothrombin Time December 06, 2019 8:34am 13.2 SECONDS 9.6-12.3 [facility], [address] [place] [address] 89103 Prothrombin Time December 01, 2019 8:30am 39.8 SECONDS 9.6-12.3 [facility], [address] [place] [address] 26226 Prothrombin Time November 26, 2019 8:55am 19.1 SECONDS 9.6-12.3 [facility], [address] [place] [address] 09553 Prothrombin Time November 23, 2019 6:12am 16.2 SECONDS 9.6-12.3 [facility], [address] [place] [address]10 Prothrombin Time November 09, 2019 6:02am 18.2 SECONDS 9.6-12.3 [facility], [address] [place] [address] 5[address]78 Prothrombin Time October 19, 2019 6:15am 19.8 SECONDS 9.6-12.3 [facility], [address] [place] [address] 13209 Prothrombin Time October 12, 2019 7:21am 16.7 SECONDS 9.6-12.3 [facility], [address] [place] [address] 61363 Prothrombin Time September 14, 2019 7:20am 21.6 SECONDS 9.6-12.3 [facility], [address] [place] [address] 24645 Prothrombin Time September 02, 2019 11:25a m 23.9 SECONDS 9.6-12.3 [facility], [address] [place] [address] 35877 Prothrombin Time August 31, 2019 7:00am 29.2 SECONDS 9.6-12.3 [facility], [address] [place] [address] 50665 Prothrombin Time August 13, 2019 2:28pm 27.2 SECONDS 9.6-12.3 [facility], [address] [place] [address] 94616 Prothrombin Time August 09, 2019 8:42a m 24.1 SECONDS 9.6-12.3 [facility], [address] [place] [address] 21424 Prothrombin Time August 05, 2019 8:55a m 21.8 SECONDS 9.6-12.3 [facility], [address] [place] [address] 02736 Prothrombin Time August 03, 2019 9:55a m 38.5 SECONDS 9.6-12.3 [facility], [address] [place] [address] 02214 INR International Normalized Ratio N ovember 2019 9:27am 2.5 0.9-1.1 THE INR IS OPERATIONALLY DEFINED FOR PIPPA SH PLASMA FROMPATIENTS STABILIZED ON ORAL ANTICOAGULANTS. ROUTINE ANTICOAGULANT THERAPY 2.0-3.0RECURRENT SYSTEMIC EMBOLISM/HEART VALVE REPLACEMENT 2.5-3.5 [facility], [address] [place] [address] 18214 INR International Normalized Ratio N ovember 2019 11:25am 3.9 0.9-1.1 THE INR IS OPERATIONALLY DEFINED FOR PIPPA SH PLASMA FROMPATIENTS STABILIZED ON ORAL ANTICOAGULANTS. ROUTINE ANTICOAGULANT THERAPY 2.0-3.0RECURRENT SYSTEMIC EMBOLISM/HEART VALVE REPLACEMENT 2.5-3.5 [facility], [address] [place] [address] INR International Normalized Ratio N ovember 2019 9:40am 3.4 0.9-1.1 THE INR IS OPERATIONALLY DEFINED FOR PIPPA SH PLASMA FROMPATIENTS STABILIZED ON ORAL ANTICOAGULANTS. ROUTINE ANTICOAGULANT THERAPY 2.0-3.0RECURRENT SYSTEMIC EMBOLISM/HEART VALVE REPLACEMENT 2.5-3.5 [facility], [address] [place] [address] INR International Normalized Ratio O ctober 2019 8:56am 2.5 0.9-1.1 THE INR IS OPERATIONALLY DEFINED FOR PIPPA SH PLASMA FROMPATIENTS STABILIZED ON ORAL ANTICOAGULANTS. ROUTINE ANTICOAGULANT THERAPY 2.0-3.0RECURRENT SYSTEMIC EMBOLISM/HEART VALVE REPLACEMENT 2.5-3.5 [facility], [address] [place] [address] INR International Normalized Ratio O ctober 2019 6:26am 3.2 0.9-1.1 THE INR IS OPERATIONALLY DEFINED FOR PIPPA SH PLASMA FROMPATIENTS STABILIZED ON ORAL ANTICOAGULANTS. ROUTINE ANTICOAGULANT THERAPY 2.0-3.0RECURRENT SYSTEMIC EMBOLISM/HEART VALVE REPLACEMENT 2.5-3.5 [facility], [address] [place] [address] INR International Normalized Ratio A ugust 2019 6:17am 2.5 0.9-1.1 THE INR IS OPERATIONALLY DEFINED FOR PIPPA SH PLASMA FROMPATIENTS STABILIZED ON ORAL ANTICOAGULANTS. ROUTINE ANTICOAGULANT THERAPY 2.0-3.0RECURRENT SYSTEMIC EMBOLISM/HEART VALVE REPLACEMENT 2.5-3.5 [facility], [address] [place] [address] INR International Normalized Ratio J gabriella 2019 9:37am 2.2 0.9-1.1 THE INR IS OPERATIONALLY DEFINED FOR PIPPA SH PLASMA FROMPATIENTS STABILIZED ON ORAL ANTICOAGULANTS. ROUTINE ANTICOAGULANT THERAPY 2.0-3.0RECURRENT SYSTEMIC EMBOLISM/HEART VALVE REPLACEMENT 2.5-3.5 [facility], [address] [place] [address] INR International Normalized Ratio J gabriella 2019 6:27am 2.9 0.9-1.1 THE INR IS OPERATIONALLY DEFINED FOR PIPPA SH PLASMA FROMPATIENTS STABILIZED ON ORAL ANTICOAGULANTS. ROUTINE ANTICOAGULANT THERAPY 2.0-3.0RECURRENT SYSTEMIC EMBOLISM/HEART VALVE REPLACEMENT 2.5-3.5 [facility], [address] [place] [address] INR International Normalized Ratio J gabriella 2019 11:47am 1.6 0.9-1.1 THE INR IS OPERATIONALLY DEFINED FOR PIPPA SH PLASMA FROMPATIENTS STABILIZED ON ORAL ANTICOAGULANTS. ROUTINE ANTICOAGULANT THERAPY 2.0-3.0RECURRENT SYSTEMIC EMBOLISM/HEART VALVE REPLACEMENT 2.5-3.5 [facility], [address] [place] [address] INR International Normalized Ratio J gabriella 2019 9:13am 1.8 0.9-1.1 THE INR IS OPERATIONALLY DEFINED FOR FRESH PLASMA FROMPATIENTS STABILIZED ON ORAL ANTICOAGULANTS. ROUTINE ANTICOAGULANT THERAPY 2.0-3.0RECURRENT SYSTEMIC EMBOLISM/HEART VALVE REPLACEMENT 2.5-3.5 [facility], [address] [place] [address] INR International Normalized Ratio J [facility] 2019 3:25pm 2.5 0.9-1.1 THE INR IS OPERATIONALLY DEFINED FOR PIPPA SH PLASMA FROMPATIENTS STABILIZED ON ORAL ANTICOAGULANTS. ROUTINE ANTICOAGULANT THERAPY 2.0-3.0RECURRENT SYSTEMIC EMBOLISM/HEART VALVE REPLACEMENT 2.5-3.5 [facility], [address] [place] [address] INR International Normalized Ratio J [facility] 2019 6:17am 2.3 0.9-1.1 THE INR IS OPERATIONALLY DEFINED FOR PIPPA SH PLASMA FROMPATIENTS STABILIZED ON ORAL ANTICOAGULANTS. ROUTINE ANTICOAGULANT THERAPY 2.0-3.0RECURRENT SYSTEMIC EMBOLISM/HEART VALVE REPLACEMENT 2.5-3.5 [facility], [address] [place] [address] INR International Normalized Ratio J [facility] 2019 6:12am 4.0 0.9-1.1 THE INR IS OPERATIONALLY DEFINED FOR FRESH PLASMA FROMPATIENTS STABILIZED ON ORAL ANTICOAGULANTS. ROUTINE ANTICOAGULANT THERAPY 2.0-3.0RECURRENT SYSTEMIC EMBOLISM/HEART VALVE REPLACEMENT 2.5-3.5 [facility], [address] [place] [address] INR International Normalized Ratio [facility] 2019 8:35am 2.8 0.9-1.1 THE INR IS OPERATIONALLY DEFINED FOR FRESH PLASMA FROMPATIENTS STABILIZED ON ORAL ANTICOAGULANTS. ROUTINE ANTICOAGULANT THERAPY 2.0-3.0RECURRENT SYSTEMIC EMBOLISM/HEART VALVE REPLACEMENT 2.5-3.5 [facility], [address] [place] [address] INR International Normalized Ratio M ay 2019 8:35am 4.3 0.9-1.1 THE INR IS OPERATIONALLY DEFINED FOR FRESH PLASMA FROMPATIENTS STABILIZED ON ORAL ANTICOAGULANTS. ROUTINE ANTICOAGULANT THERAPY 2.0-3.0RECURRENT SYSTEMIC EMBOLISM/HEART VALVE REPLACEMENT 2.5-3.5 [facility], [address] [place] [address] INR International Normalized Ratio M ay 2019 8:30am 3.4 0.9-1.1 THE INR IS OPERATIONALLY DEFINED FOR FRESH PLASMA FROMPATIENTS STABILIZED ON ORAL ANTICOAGULANTS. ROUTINE ANTICOAGULANT THERAPY 2.0-3.0RECURRENT SYSTEMIC EMBOLISM/HEART VALVE REPLACEMENT 2.5-3.5 [facility], [address] [place] [address] INR International Normalized Ratio M ay 2019 8:40am 2.7 0.9-1.1 THE INR IS OPERATIONALLY DEFINED FOR FRESH PLASMA FROMPATIENTS STABILIZED ON ORAL ANTICOAGULANTS. ROUTINE ANTICOAGULANT THERAPY 2.0-3.0RECURRENT SYSTEMIC EMBOLISM/HEART VALVE REPLACEMENT 2.5-3.5 [facility], [address] [place] [address] INR International Normalized Ratio M ay 2019 8:35am 2.7 0.9-1.1 THE INR IS OPERATIONALLY DEFINED FOR FRESH PLASMA FROMPATIENTS STABILIZED ON ORAL ANTICOAGULANTS. ROUTINE ANTICOAGULANT THERAPY 2.0-3.0RECURRENT SYSTEMIC EMBOLISM/HEART VALVE REPLACEMENT 2.5-3.5 [facility], [address] [place] [address] INR International Normalized Ratio M ay 2019 8:18am 4.5 0.9-1.1 THE INR IS OPERATIONALLY DEFINED FOR FRESH PLASMA FROMPATIENTS STABILIZED ON ORAL ANTICOAGULANTS. ROUTINE ANTICOAGULANT THERAPY 2.0-3.0RECURRENT SYSTEMIC EMBOLISM/HEART VALVE REPLACEMENT 2.5-3.5 [facility], [address] [place] [address] INR International Normalized Ratio M ay 2019 7:56am 8.8 0.9-1.1 Called to DRAKE ROCHE AT [facility] OFFICE @ 1194 by Iraj Garcia. Results read back. Repeated by: Iraj Garcia 12/22/19 [id number].Result Confirmation:8.8THE INR IS OPERATIONALLY DEFINED FOR FRESH PLASMA FROMPATIENTS STABILIZED ON ORAL ANTICOAGULANTS. ROUTINE ANTICOAGULANT THERAPY 2.0-3.0RECURRENT SYSTEMIC EMBOLISM/HEART VALVE REPLACEMENT 2.5-3.5 [facility], [address] [place] [address] INR International Normalized Ratio M ay 2019 8:17am 3.0 0.9-1.1 THE INR IS OPERATIONALLY DEFINED FOR FRESH PLASMA FROMPATIENTS STABILIZED ON ORAL ANTICOAGULANTS. ROUTINE ANTICOAGULANT THERAPY 2.0-3.0RECURRENT SYSTEMIC EMBOLISM/HEART VALVE REPLACEMENT 2.5-3.5 [facility], [address] [place] [address] INR International Normalized Ratio M ay 2019 7:19am 1.7 0.9-1.1 THE INR IS OPERATIONALLY DEFINED FOR FRESH PLASMA FROMPATIENTS STABILIZED ON ORAL ANTICOAGULANTS. ROUTINE ANTICOAGULANT THERAPY 2.0-3.0RECURRENT SYSTEMIC EMBOLISM/HEART VALVE REPLACEMENT 2.5-3.5 [facility], [address] [place] [address] INR International Normalized Ratio A pril 2019 8:34am 1.3 0.9-1.1 THE INR IS OPERATIONALLY DEFINED FOR PIPPA SH PLASMA FROMPATIENTS STABILIZED ON ORAL ANTICOAGULANTS. ROUTINE ANTICOAGULANT THERAPY 2.0-3.0RECURRENT SYSTEMIC EMBOLISM/HEART VALVE REPLACEMENT 2.5-3.5 [facility], [address] [place] [address] INR International Normalized Ratio A pril 2019 8:30am 4.3 0.9-1.1 THE INR IS OPERATIONALLY DEFINED FOR PIPPA SH PLASMA FROMPATIENTS STABILIZED ON ORAL ANTICOAGULANTS. ROUTINE ANTICOAGULANT THERAPY 2.0-3.0RECURRENT SYSTEMIC EMBOLISM/HEART VALVE REPLACEMENT 2.5-3.5 [facility], [address] [place] [address] INR International Normalized Ratio A pril 2019 8:55am 1.9 0.9-1.1 THE INR IS OPERATIONALLY DEFINED FOR PIPPA SH PLASMA FROMPATIENTS STABILIZED ON ORAL ANTICOAGULANTS. ROUTINE ANTICOAGULANT THERAPY 2.0-3.0RECURRENT SYSTEMIC EMBOLISM/HEART VALVE REPLACEMENT 2.5-3.5 [facility], [address] [place] [address] INR International Normalized Ratio A pril 2019 6:12am 1.6 0.9-1.1 THE INR IS OPERATIONALLY DEFINED FOR PIPPA SH PLASMA FROMPATIENTS STABILIZED ON ORAL ANTICOAGULANTS. ROUTINE ANTICOAGULANT THERAPY 2.0-3.0RECURRENT SYSTEMIC EMBOLISM/HEART VALVE REPLACEMENT 2.5-3.5 [facility], [address] [place] [address] INR International Normalized Ratio M arch 2019 6:02am 1.8 0.9-1.1 THE INR IS OPERATIONALLY DEFINED FOR PIPPA SH PLASMA FROMPATIENTS STABILIZED ON ORAL ANTICOAGULANTS. ROUTINE ANTICOAGULANT THERAPY 2.0-3.0RECURRENT SYSTEMIC EMBOLISM/HEART VALVE REPLACEMENT 2.5-3.5 [facility], [address] [place] [address] INR International Normalized Ratio M arch 2019 6:15am 2.0 0.9-1.1 THE INR IS OPERATIONALLY DEFINED FOR PIPPA SH PLASMA FROMPATIENTS STABILIZED ON ORAL ANTICOAGULANTS. ROUTINE ANTICOAGULANT THERAPY 2.0-3.0RECURRENT SYSTEMIC EMBOLISM/HEART VALVE REPLACEMENT 2.5-3.5 [facility], [address] [place] [address]98 INR International Normalized Ratio arch 2019 7:21am 1.7 0.9-1.1 THE INR IS OPERATIONALLY DEFINED FOR PIPPA SH PLASMA FROMPATIENTS STABILIZED ON ORAL ANTICOAGULANTS. ROUTINE ANTICOAGULANT THERAPY 2.0-3.0RECURRENT SYSTEMIC EMBOLISM/HEART VALVE REPLACEMENT 2.5-3.5 [facility], [address] [place] [address]996 INR International Normalized Ratio F ebruary 2019 7:20am 2.20 0.9-1.1 THE INR IS OPERATIONALLY DEFINED FOR PIPPA SH PLASMA FROMPATIENTS STABILIZED ON ORAL ANTICOAGULANTS. ROUTINE ANTICOAGULANT THERAPY 2.0-3.0RECURRENT SYSTEMIC EMBOLISM/HEART VALVE REPLACEMENT 2.5-3.5 [facility], [address] [place] [address] INR International Normalized Ratio J anuary 2019 11:25am 2.5 0.9-1.1 THE INR IS OPERATIONALLY DEFINED FOR PIPPA SH PLASMA FROMPATIENTS STABILIZED ON ORAL ANTICOAGULANTS. ROUTINE ANTICOAGULANT THERAPY 2.0-3.0RECURRENT SYSTEMIC EMBOLISM/HEART VALVE REPLACEMENT 2.5-3.5 [facility], [address] [place] [address] INR International Normalized Ratio J anuary 2019 7:00am 3.1 0.9-1.1 THE INR IS OPERATIONALLY DEFINED FOR PIPPA SH PLASMA FROMPATIENTS STABILIZED ON ORAL ANTICOAGULANTS. ROUTINE ANTICOAGULANT THERAPY 2.0-3.0RECURRENT SYSTEMIC EMBOLISM/HEART VALVE REPLACEMENT 2.5-3.5 [facility], [address] [place] [address] INR International Normalized Ratio J an2019 2:28pm 2.8 0.9-1.1 THE INR IS OPERATIONALLY DEFINED FOR PIPPA SH PLASMA FROMPATIENTS STABILIZED ON ORAL ANTICOAGULANTS. ROUTINE ANTICOAGULANT THERAPY 2.0-3.0RECURRENT SYSTEMIC EMBOLISM/HEART VALVE REPLACEMENT 2.5-3.5 [facility], [address] [place] [address] INR International Normalized Ratio D ec2018 8:42am 2.5 0.9-1.1 THE INR IS OPERATIONALLY DEFINED FOR PIPPA SH PLASMA FROMPATIENTS STABILIZED ON ORAL ANTICOAGULANTS. ROUTINE ANTICOAGULANT THERAPY 2.0-3.0RECURRENT SYSTEMIC EMBOLISM/HEART VALVE REPLACEMENT 2.5-3.5 [facility], [address] [place] [address] INR International Normalized Ratio D ec2018 8:55am 2.2 0.9-1.1 THE INR IS OPERATIONALLY DEFINED FOR PIPPA SH PLASMA FROMPATIENTS STABILIZED ON ORAL ANTICOAGULANTS. ROUTINE ANTICOAGULANT THERAPY 2.0-3.0RECURRENT SYSTEMIC EMBOLISM/HEART VALVE REPLACEMENT 2.5-3.5 [facility], [address] [place] [address] INR International Normalized Ratio D ec2018 9:55am 4.1 0.9-1.1 THE INR IS OPERATIONALLY DEFINED FOR PIPPA SH PLASMA FROMPATIENTS STABILIZED ON ORAL ANTICOAGULANTS. ROUTINE ANTICOAGULANT THERAPY 2.0-3.0RECURRENT SYSTEMIC EMBOLISM/HEART VALVE REPLACEMENT 2.5-3.5 [facility], [address] [place] [address] 29203 Blood Urea Nitrogen January 23, 2020 3:25pm 73 mg/dL 05-03 [facility], [address] [place] [address] 03318 Blood Urea Nitrogen December 09, 2019 8:50a m 95 mg/dL 05-03 Called to KENNETH Nava @ 1024 by Maggie Clark. Results read back. Repeated by: aMggie Clark 12/09/19 1024.Result Confirmation: 98 mg/dL [facility], [address] [place] [address] 97956 Blood Urea Nitrogen July 23, 2 019 8:10am 77 mg/dL 05-03 Called to Duane MCKEON @ 0902 by Ambar Ann. Results read back. Repeated by: Ambar Ann 07/23/19902.Result Confirmation: 75 mg/dL [facility], [address] [place] [address] 33187 Sodium Level January 23, 2020 3:25pm 139 mmol/L 132-146 [facility], [address] [place] [address] 59284 Sodium Level December 09, 2019 8:50am 139 mmol/L 132-146 [facility], [address] [place] [address] 95144 Sodium Level July 23, 2019 8:10am 141 mmol/L 132-146 [facility], [address] [place] [address] 27604 Potassium Level January 23, 2020 3:25pm 4.2 mmol/L 3.5-5.5 [facility], [address] [place] [address] 85329 Potassium Level December 09, 2019 8:50am 4.3 mmol/L 3.5-5.5 [facility], [address] [place] [address] 17101 Potassium Level July 23, 2019 8:10am 4.2 mmol/L 3.5-5.5 [facility], [address] [place] [address] 53561 Chloride Level January 23, 2020 3:25pm 109 mmol/l 99-109 [facility], [address] [place] [address] 00335 Chloride Level December 09, 2019 8:50am 113 mmol/l 99-109 [facility], [address] [place] [address] 47040 Chloride Level July 23, 2019 8:10am 108 mmol/l 99-109 [facility], [address] [place] [address] 21939 Carbon Dioxide Level January 23, 2020 3:25p m 19 mmol/l 20-31 [facility], [address] [place] [address] 18654 Carbon Dioxide Level December 08 0 8:50am 16 mmol/l 20-31 [facility], [address] [place] [address] 02245 Carbon Dioxide Level July 23, 2019 8:10am 22 mmol/l 20-31 [facility], [address] [place] [address] 14999 Anion Gap January 23, 2020 3:25pm 15 mmol/l 8-16 [facility], [address] [place] [address] Anion Gap December 09, 2019 8:50am 14 mmol/l 03-26 [facility], [address] [place] [address] Anion Gap July 23, 2019 8:10am 15 mmol/l 03-26 [facility], [address] [place] [address] Glucose Level January 23, 2020 3:25pm 177 mg/dL 74-106 [facility], [address] [place] [address] Glucose Level December 09, 2019 8:50am 134 mg/dL -106 [facility], [address] [place] [address] Glucose Level July 23, 2019 8:10am 141 mg/dL -106 [facility], [address] [place] [address] Creatinine January 23, 2020 3:25pm 3.0 mg/dL 0.5-1.1 [facility], [address] [place] [address] Creatinine December 09, 2019 8:50am 4.0 mg/dL 0.5-1.1 [facility], [address] [place] [address] Creatinine July 23, 2019 8:10am 3.7 mg/dL 0.5-1.1 [facility], [address] [place] [address] Glomerular Filtration Rate Calc January 23, 2020 3:25pm 20 ml/min ABOVE 60 [facility], [address] [place] [address] Glomerular Filtration Rate Calc Apri l 2019 8:50am 15 ml/min ABOVE 60 [facility], [address] [place] [address] Glomerular Filtration Rate Calc Dece mber 2018 8:10am 16 ml/min ABOVE 60 [facility], [address] [place] [address] Alanine Aminotransferase (ALT/SGPT) January 23, 2020 3:25pm 17 U/L 49 [facility], [address] [place] [address] Alanine Aminotransferase (ALT/SGPT) December 09, 2019 8:50am 20 U/L 49 [facility], [address] [place] [address] Aspartate Amino Transf (AST/SGOT) 2019 3:25pm 16 U/L 0-33 [facility], [address] [place] [address] 26940 Aspartate Amino Transf (AST/SGOT) Ap 2019 8:50am 16 U/L 0-33 [facility], [address] [place] [address] Alkaline Phosphatase January 23, 2020 3:25p m 119 U/L 45-129 [facility], [address] [place] [address] Alkaline Phosphatase December 08 0 8:50am 112 U/L 45-129 [facility], [address] [place] [address] Calcium Level January 23, 2020 3:25pm 9.8 mg/dL 8.5-10.1 [facility], [address] [place] [address] Calcium Level December 09, 2019 8:50am 9.8 mg/dL 8.5-10.1 [facility], [address] [place] [address] Calcium Level July 23, 2019 8:10am 9.7 mg/dL 8.5-10.1 [facility], [address] [place] [address] 37018 Total Bilirubin January 23, 2020 3:25pm 0.3 mg/dL 0.3-1.2 [facility], [address] [place] [address] Total Bilirubin December 09, 2019 8:50am 0.3 mg/dL 0.3-1.2 [facility], [address] [place] [address] 11445 Albumin January 23, 2020 3:25pm 3.7 g/dL 3.2-4.8 [facility], [address] [place] [address] Albumin December 09, 2019 8:50am 3.9 g/dL 3.2-4.8 [facility], [address] [place] [address] Serum Total Protein January 23, 2020 3:25pm 7.5 g/dL 5.7-8.2 [facility], [address] [place] [address] Serum Total Protein December 09, 2019 8:50a m 7.5 g/dL 5.7-8.2 [facility], [address] [place] [address] Iron Level December 09, 2019 8:51am 129 ug/dL 65-175 Iron values ma y be falsely elevated in serum samples frompatients treated with anticoagulants (e.g., hemodialysispatients) [facility], [address] [place] [address] 05450 Iron Saturation December 09, 2019 8:51am 38 20-55 [facility], [address] [place] [address] 30130 Total Iron Binding Capacity December 082019 8:51am 341 ug/dl 250-450 [facility], [address] [place] [address] Ferritin December 09, 2019 8:51am 432 ng/mL 22-322 [facility], [address] [place] [address] Troponin I December 09, 2019 8:50am Less than 0.015 ng/mL 0.00-0.09 Less than 0.09 NG/ML Negative0.10 - 0.77 NG/ML High Risk0.78 NG/ML or Greater Positive The WHO defined the cutoff (definition for diagnosis of SC)for this method as 0.78 ng/ml. [facility], [address] [place], [place] [address] Testosterone Level November 09, 2019 6:02am 5 ng/dL Adult male reference interval is based on a population ofhealthy nonobese males (BMI <30) between 19 and 39 yearsold. Warren et.al. JCEM 2017,102;7160-9201. PMID:[id number]. [facility] , [address] [facility] [address] Free Testosterone November 09, 2019 6:02am 3.8 pg/mL Performed at: [facility] [address] [id number] Director: Cecy Babin MD, Phone: [phone] [facility] , [address] [facility] [address] Lyme Disease Ab Tot Immunoglobulins March 08, 2020 9:37am Less than 0.91 ISR Negative <0.91 Equivocal 0.91 - 1.09 Positive >1.09 [facility] , [address] [facility] [address] Lyme Disease IgM Ab Quantitation Bernardo 2019 9:37am Less than 0.80 index Negative <0.80 Equivocal 0.80 - 1.19 Positive >1.19 IgM levels may peak at 3-6 weeks post infection, then gradually decline.Performed at: [facility] [address] [id number] Director: Cecy Babin MD, Phone: [phone] [facility] , [address] [facility] [address] Pro-B-Type Natriuretic Peptide December 09, 2019 8:50am 1806.00 pg/mL 0.00-450 [facility], [address] [place] [address] Diagnostic Imaging Reports Report Dictated Date/Time Dictated By Status Radiology Report July 28, 2019 10:54am Carlos Ulloa MD completed [place] [id number] [phone] NAME SEX PT STATUS ACCOUNT NUMBER BRITTON GOMEZ REG REF [id number] ORDERING PHYSICIAN LOCATION MEDICAL RECORD NO. Tray Vazquez M.D. [place] [id number] ATTENDING PHYSICIAN DATE OF DATE OF EXAM/TIME Devon Gee MD 1940 07/28/191038 TYPE / EXAM Xray Chest 2 view PA/LAT REASON FOR EXAM MALIGNANT NEOPLASM OF PROSTATE Procedure: PA and lateral chest. Clinical indication: Malignant neoplasm of prostate Comparison: 09/26/2016 Findings: There is by basilar scar. 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 No active infiltrates are seen. The heart is normal in size. Pulmonary vascularity is within normal limits. The mediastinum is intact. Impression: Stable exam with by basilar scar Reported By Carlos Ulloa MD on 07/28/19 1054 Signed By Carlos Ulloa MD on 07/28/19 1055 Date Time CC: Devon Gee MD; Carlos Ulloa MD Techn: CUMME Trans Dt/Tm: Trans by: DT Prt Dt/Tm: [id number]: Total DLP = 0.00 mGy-cm Fluoroscopy Time (in secs): Radiology Report July 28, 2019 12:08pm Carlos Ulloa MD completed [place] [id number] [place] [address] [phone] NAME SEX PT STATUS ACCOUNT NUMBER BR[facility]TON GOMEZ REG REF [id number] ORDERING PHYSICIAN LOCATION MEDICAL RECORD NO. Tray Vazquez M.D. RI [id number] ATTENDING PHYSICIAN DATE OF DATE OF EXAM/TIME Devon Gee MD 1940 07/28/19 / 1023 TYPE / EXAM CT Abd/pel w/o contrast REASON FOR EXAM NEOPLASM OF UNCERTAIN BEHAVIOR OF PROSTATE PROCEDURE: CT abdomen and pelvis CLINICAL INDICATION: Neoplasm of the prostate COMPARISON: PA and lateral chest: 09/16/2016 and 07/28/2019 TECHNIQUE: Axial computed tomographic images of the abdomen and pelvis were obtained without IV. Oral contrast was given coronal and sagittal reconstructed images were obtained. FINDINGS: No organomegaly is seen. A gallstone is noted. The kidneys demonstrate no evidence for calculi or obstruction. The spleen is intact..The abdominal aorta is normal in caliber..No lymphadenopathy is seen. The bladder and distal ureters are normal. There is redundancy to the sigmoid colon. The sigmoid colon extends to the periumbilical level. This can predispose to future volvulus. Is a mild hiatal hernia mild hiatal hernia. The appendix is not seen. Bony ankylosis to the anterior sacroiliac joints suggest Dylon's syndrome, psoriatic arthritis or DISH syndrome, a benign condition of tendons and ligaments of can cause pain. There mild compression fractures to the superior endplates of T11 and L1. There may be bone demineralization. The prostate gland is enlarged. Impression: Gallstone. Prostatic enlargement. Redundant sigmoid colon that could predispose to future sigmoid volvulus. Stable scar in both lower lobes and lingula. Mild compression fractures to the superior endplates of T11 and L1. There may be bone demineralization. Mild hiatal hernia Dose reduction was performed utilizing CARE dose with automated adjustment of the kV and MAS according to patient size, iterative reconstruction, automated exposure control, as well as adaptive dose shielding. Reported By Carlos Ulloa MD on 07/28/19 1200 Signed By Carlos Ulloa MD on 07/28/19 1213 Date Time CC: Devon Gee MD; Carlos Ulloa MD Techn: CUMME Trans Dt/Tm: Trans by: DT Prt Dt/Tm: : Total DLP = 427.00 mGy-cm : Total Radiation Dose = 6.4050 mSv Lifetime Dose: 6.4050 mSv Radiology Report July 28, 2019 1:19p m Carlos Ulloa MD completed [place] [address] [place] [address] [phone] NAME SEX PT STATUS ACCOUNT NUMBER BRITTON GOMEZ REG REF [id number] ORDERING PHYSICIAN LOCATION MEDICAL RECORD NO. Tray Vazquez M.D. [place] [id number] ATTENDING PHYSICIAN DATE OF DATE OF EXAM/TIME Devon Gee MD 1940 07/28/19899 TYPE / EXAM NM Bone Scan - Whole Body REASON FOR EXAM MALIGNANT NEOPLASM OF PROSTATE Clinical indication: Malignant neoplasm of prostate COMPARISON: None TECHNIQUE: 26.9mCi IV technetium 99m MDP. FINDINGS: Increased uptake of both first MTP joints, both ankles both knees, shoulders and wrists suggests arthritis. Slight increased uptake within the greater trochanter of both femurs is noted. Plain films are suggested. IMPRESSION: Increased uptake of both greater trochanters. 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 Tray Vazquez M.D. RAD [id number] ATTENDING PHYSICIAN DATE OF DATE OF EXAM/TIME Kaz Cid MD 1940 07/30/19919 TYPE / EXAM XRAY HIP RT 2-3 VIEW REASON FOR EXAM MALIG.NEOPLASM PROSTATE,ABN.FINDINGS ON IMAGING OF LIMBS Procedure: Right hip Clinical indication: Abnormal finding on bone scan Comparison: Bone scan: 07/18/2019 Technique: 2 view(s) Findings: No fractures are seen. Spurring at the superolateral aspect of the right hip is consistent with degenerative disease. There may be chondrocalcinosis involving the right hip possibly related to degenerative disease. The right greater trochanter is normal.. The soft tissues are normal. Bone mineralization is normal. Impression: Findings at the right hip consistent with degenerative disease The findings within the right greater trochanter may be simply positional in etiology and not reflective of malignancy. A six-month follow-up bone scan is suggested Reported By Carlos Ulloa MD on 07/30/19936 Signed By Carlos Ulloa MD on 07/30/19939 Date Time CC: Kaz Cid MD; Carlos Ulloa MD Techn: PALMER Trans Dt/Tm: Trans by: DT Prt Dt/Tm: [id number]: Total DLP = 0.00 mGy-cm Fluoroscopy Time (in secs): Radiology Report July 30, 2019 9:40a m Carlos Ulloa MD completed [facility] [address] [place] [address] [phone] NAME SEX PT STATUS ACCOUNT NUMBER BRITTON GOMEZ PRE REF [id number] ORDERING PHYSICIAN LOCATION MEDICAL RECORD NO. Tray Vazquez M.D. RAD [id number] ATTENDING PHYSICIAN DATE OF DATE OF EXAM/TIME Kaz Cid MD 1940 07/30/19919 TYPE / EXAM XRAY HIP LT 2-3 VIEW REASON FOR EXAM MALIG.NEOPLASM PROSTATE,ABN.FINDINGS ON IMAGING OF LIMBS Procedure: Left hip Clinical indication: Abnormal finding on bone scan Comparison: Bone scan: 07/28/2019 Technique: 2 view(s) Findings: No fractures are seen. Spurring at the superolateral aspect of the left hip is consistent with degenerative disease. There is chondrocalcinosis of the left hip process related to degenerative disease.. The soft tissues are normal. Bone mineralization is normal. Impression: Findings at the left hip consistent with degenerative disease. The left greater trochanter is normal. The abnormal finding on bone scan may be simply projectional in nature and not reflective of malignancy. A six-month follow up bone scan is suggested Reported By Carlos Ulloa MD on 07/30/19939 Signed By Carlos Ulloa MD on 07/30/19940 Date Time CC: Kaz Cid MD; Carlos Ulloa MD Techn: PALMER Trans Dt/Tm: Trans by: DT Prt Dt/Tm: [id number]: Total DLP = 0.00 mGy-cm Fluoroscopy Time (in secs): Radiology Report August 13, 2019 2:30pm Young Lira MD completed [place] [id number] [phone] NAME SEX PT STATUS ACCOUNT NUMBER BRITTON GOMEZ REG REF [id number] ORDERING PHYSICIAN LOCATION MEDICAL RECORD NO. Julian DO [facility] [id number] ATTENDING PHYSICIAN DATE OF DATE OF EXAM/TIME Julian Herrera DO 1940 08/13/191423 TYPE / EXAM Xray Chest 2 view [...] Trans Dt/Tm: Trans by: DT Prt Dt/Tm: [id number]: Total DLP = 0.00 mGy-cm Fluoroscopy Time (in secs): Radiology Report October 20, 2019 11:28am Young Lira MD completed [facility] [address] [place] [id number] [phone] NAME SEX PT STATUS ACCOUNT NUMBER BRITTON GOMEZ REG REF [id number] ORDERING PHYSICIAN LOCATION MEDICAL RECORD NO. Tono Guardado DO RAD [id number] ATTENDING PHYSICIAN DATE OF DATE OF EXAM/TIME Tono Guardado DO 1940 10/20/19 / 1102 TYPE / EXAM Xray Cervical spine complete [...] Trans Dt/Tm: Trans by: DT Prt Dt/Tm: [id number]: Total DLP = 0.00 mGy-cm Fluoroscopy Time (in secs): Radiology Report December 09, 2019 10:25am Young Lira MD completed [facility] [address] [place] [id number] [phone] NAME SEX PT STATUS ACCOUNT NUMBER BRITTON GOMEZ [facility] [id number] ORDERING PHYSICIAN LOCATION MEDICAL RECORD NO. Ko Ramos MD ER [id number] ATTENDING PHYSICIAN DATE OF DATE OF EXAM/TIME Tara Osborne 1940 12/09/19 / 1019 TYPE / EXAM Xray Chest One View [...] Date Time CC: Young Lira MD; Tara VÁZQUEZ Dylon Techn: FROSA Trans Dt/Tm: Trans by: DT Prt Dt/Tm: [id number]: Total DLP = 0.00 mGy-cm Fluoroscopy Time (in secs): Radiology Report January 23, 2020 5:08pm Floyd Cain MD completed [facility] [address] [place] [address] [phone] NAME SEX PT STATUS ACCOUNT NUMBER BRITTON GOMEZ [facility] ER [id number] ORDERING PHYSICIAN LOCATION MEDICAL RECORD NO. Kyaw YOUNG [facility] [id number] ATTENDING PHYSICIAN DATE OF DATE OF EXAM/TIME [...] Date Time CC: Floyd Cain MD; Tara REGISTERED NURSE NURSERY Dylon Techn: FROSA Trans Dt/Tm: Trans by: DT Prt Dt/Tm: : Total DLP = 710.00 mGy-cm : Total Radiation Dose = 2.2010 mSv Lifetime Dose: 8.6060 mSv Radiology Report January 23, 2020 5:41pm [place] [address] [phone] NAME SEX PT STATUS ACCOUNT NUMBER BRITTON GOMEZ [facility] [id number] ORDERING PHYSICIAN LOCATION MEDICAL RECORD NO. Kyaw YOUNG [facility] [id number] ATTENDING PHYSICIAN DATE OF DATE OF EXAM/TIME Tara Osborne HECTOR 1940 01/23/20 / 1647 TYPE / EXAM [...] M.D. Reported By Floyd Cain MD on 06/14/20 1741 Signed By Floyd Cain MD on 01/23/20 1741 Date Time CC: Floyd Cain MD; Tara VÁZQUEZ Dylon Techn: [facility] Trans Dt/Tm: Trans by: DT Prt Dt/Tm: 7930-2765: Total DLP = 0.00 mGy-cm Fluoroscopy Time (in secs): Health Concerns Health Concerns may be documented in an alternate section. Advance Directives Advance Directive Response Recorded Date/Time Advanced Directive No 2019 3:03pm [facility] No December 06 0 10:58am Advance Directives on File or in chart? No December 07, 2019 10:58am Does Patient have a DNR? No January 23, 2020 3:03pm Healthcare Proxy Yes Jan 3:03pm Health Care Proxy Name Nanette Gomez December 07, 2019 10:58am Health Care Proxy Phone Number December 07, 2019 10:58am Living Will Yes December 062019 10:58am Chief Complaint and Reason for Visit Chief Complaint Office visit C61 PROSTATE CANCER C61 MALIGNANT NEOPLASM OF PROSTATE,ABNORMAL FINDINGS Z79.01 I48.91 I48.91 Office visit J06.9 J06.9,I48.91 I48.91 I48.91, I48.2 Medicare Annual Wellness subsequent I48.91 I48.91 Medication check M54.2 E89.5,I48.91,C61 I48.91 I48.91 I48.91 I48.91 Shortness of breath SOB I48.91 O48.91 O48.91 I48.91 I48.91 I48.91 I48.91 I48.91 I48.91 I48.91 I48.91,J06.9,Z95.2 FALL,EAR LAC Wound Care I48.91,Z95.2 I48.91 I48.91 Hypertension I48.91,W57.XXXA Medicare Annual Wellness subsequent I48.91 I48.91 Rash I48.91 I48.91 Telemed Visit I48.91 Hypertension Reason for Visit Atrial fibrillation Atrial fibrillation Congestive heart failure (CHF) Weakness Laceration of ear, external, left, complicated Hypertension, essential, benign Chronic atrial fibrillation Itch of skin Atrial fibrillation Itch of skin Encounters Encounter Location(s) Ar rival/Admit Date Discharge/Depart Date Provider(s) Departed Physician/Provider Office Visit [facility] July 19, 2019 10:09am July 19, 2019 10:53am Devon Gee MD Registered Referred [facility] July 23, 2019 8:05am [facility], [facility] 10:47am Tray Vazquez Registered Referred [facility] July 30, 2019 1:00pm Tray [facility]azquez [facility] August [facility], 2019 9:54am [facility], 2019 8:34am Julianlorrie Herrera [facility] 09, 2019 8:15am Kaz Cid MD Departed Physician/Provider Office Visit [facility] August 13, 2019 1:10pm August 13, 2019 2:08pm Julian Pat el , DO [facility], [facility] 2:11pm Julian Herrera , DO Registered Referred [facility] Drop Off August 31, 2019 7:00am Julian Herrera , DO [facility] September 02, 2019 11:16am Julian Herrera , DO Registered Outpatient [facility] September 02, 2019 5:06pm Julian Herrera , DO Registered Referred [facility] Drop Off September 14, 2019 7:00am Julian Herrera , DO Departed Physician/Provider Office Visit [facility] September 14, 2019 10:17am September 14, 2019 11:39am Julian Herrera , DO Registered Referred [facility] Drop Off October 12, 2019 7:10am Julian Herrera , DO Registered Outpatient [facility] October 12, 2019 11:44am Julian Herrera DO Registered Referred [facility] October 19, 2019 6:00am Tono Guardado DO Registered Outpatient [facility] October 19, 2019 2:59pm Tono Guardado DO Departed Physician/Provider Office Visit [facility] October 20, 2019 8:48am October 20, 2019 9:50am Lillian Friedman Registered Referred [facility] October 20, 2019 9:54am Tono Guardado DO Registered Referred [facility] Drop Off November 09, 2019 5:55am Tray Vazquez Registered Outpatient [facility] November 09, 2019 8:42am Tono Guardado DO Registered Referred [facility] Drop [facility] November 23, 2019 6:05am Kaz Cid MD Registered Referred [facility] November 26, 2019 8:30am Kaz Cid MD Registered Referred [facility] December 01, 2019 8:00am Kaz Cid MD Registered Referred [facility] December 06, 2019 8:00am Kaz Cid MD Departed Physician/Provider Office Visit [facility] December 09, 2019 7:25am December 09, 2019 8:08am Tara Dylon Departed Emergency [facility] ER December 09, 2019 8:11am December 09, 2019 10:40am null Registered Referred [facility] December 13, 2019 7:00am K athy Dylon Registered Referred [facility] December 15, 2019 8:00am K athy Dylon Registered Referred [facility] December 22, 2019 7:45am Tara Dylon Registered Referred [facility] December 23, 2019 8:00am Tara Dylon Registered Referred [facility] December 24, 2019 8:00am Tara Dylon Registered Referred [facility] December 27, 2019 7:30am Kaz Cid MD Registered Referred [facility] December 30, 2019 8:27am Tara Dylon Registered Referred [facility] January 06, 2020 8:43am Tara Osborne Registered Referred [facility] January 07, 2020 8:18am Tara Osborne Registered Referred [facility] January 14, 2020 6:00am Tara Osborne Registered Referred [facility] January 21, 2020 6:00am Anjana Lucio NP Departed Emergency [facility] January 23, 2020 3:00pm January 23, 2020 5:42pm null Departed Physician/Provider Office Visit [facility] January 25, 2020 1:12pm January 25, 2020 1:36pm Carlos desir DO [facility] 10, 2020 9:02am Anjana Lucio NP Registered Outpatient [facility] February 14, 2020 12:46pm Anjana Lucio NP [facility] 18, 2020 11:08am Tara Osborne [facility] 28, 2020 6:28am Tara Osborne Departed Physician/Provider Office Visit [facility] March 08, 2020 8:26am March 08, 2020 9:28am Tono Guardado DO [facility] 08, 2020 9:25am Tara Osborne Departed Physician/Provider Office Visit [facility] March 17, 2020 2:08pm March 17, 2020 3:45pm Lillian Friedman Registered Referred [facility] March 31, 2020 6:00am Tono Guardado DO Registered Referred [facility] May 12, 2020 6:23am Tara Osborne Departed Physician/Provider Office Visit [facility] May 16, 2020 8:27am May 16, 2020 10:03am Tono Guardado DO Registered Referred [facility] May 23, 2020 8:54am [facility] Osborne [facility] June 23, 2020 9:23am Tono Guardado DO Departed Physician/Provider Office Visit [facility] June 23, 2020 1:13pm June 23, 2020 2:54pm Tono Guardado DO Registered Referred [facility] June 30, 2020 11:15am Tono Guardado DO Registered Referred [facility] July 07, 2020 9:25am Tono Guardado DO Departed Physician/Provider Office Visit [facility] July 11, 2020 10:41am July 11, 2020 11:45am Tono Guardado DO Recent Diagnosis Onset Date Atrial fibrillation Atrial fibrillation Congestive heart failure (CHF) Weakness Laceration of ear, external, left, complicated Hypertension, essential, benign January 06, 2015 Chronic atrial fibrillation June 11, 2016 Itch of skin Atrial fibrillation Itch of skin Assessments Diagnosis Onset Date Res olution Status Atrial fibrillation chronic Atrial fibrillation chronic Congestive heart failure (CHF) chronic Weakness resolved Laceration of ear, external, left, complicated resolved Hypertension, essential, benign January 06, 2015 chronic Chronic atrial fibrillation June 11, 2016 chronic Itch of skin chronic Atrial fibrillation chronic Itch of skin chronic Family History Relationship Condition A ge at Onset Recorded Date/Time Not Specified Cardiac disease Unknown Not Specified Hyperlipidemia Unknown Hypertension Unknown Not Specified Multiple sclerosis Unknown Functional Status No Functional Status information available Goals Goals may be documented in an alternate section. Immunizations Immunization Event Date Not Given Reason Dose Number Medicare Biller Lot Number Vaccine Information Statement (VIS) Deta il pneumococcal conjugate PCV 13 r 2016 zoster (shingles) vaccine, live, sc November 03, 2016 pneumococcal polysaccharide PPV23 vaccine September 14, 2019 [id number] tetanus, diphtheria, acell pertussis 7yrs &up January 23, 2020 [id number] Mental Status Observation Response Lobo e Recorded Impairments Hearing/Auditory January 23, 2020 3:03pm Visual January 23, 2020 3:03pm Ambulation/transfer Ju ne 2019 3:03pm Medical Equipment No Medical Equipment Information available Insurance Providers Guarantor BRITTON GOMEZ Address [address] [place] [address] Contact Info. Home Phone: Payer Policy Id Coverage Id Subscriber's Name Subscriber Id Effective Date Expiration Date [facility] [id number] BRITTON GOMEZ [id number] [facility] [id number] BRITTON GOMEZ [id number] 2011 MEDICARE [place]STATE [id number] BRITTON GOMEZ [id number] 2011 MEDICARE [id number] BRITTON GOMEZ [id number] Self Pay Self N/A Plan of Treatment agrees to decrease warfarin schedule new dosage schedule is 2mg on Friday , friday, and the other four days will be 3mg repeat inr in about one week if condition worsens, then go to ER hydrocortisone prn f/u dermatolgist f/u call or contact centre manager hydrocortisone as ordered if worsens, then go to ER and patient denies new foods, new soaps, new detergents, denies pets f/u senior living advisor f/u call or contact centre manager hydrocortisone prn itch hydrocortisone provides relief for about 3 hours if condition worsens, then go to ER inr is therapeutic between 2.5 - 3.5 continue current warfarin schedule repeat inr in about one week completed wellness exam repeat inr in about 2 week stable continue same dosage schedule inr in 2 weeks stable continue current medical treatment 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 We discussed the possibility of conservative management of prostate cancers, including the possibility of injections every 3 months. He is reassured by this possibility, and plans to discuss this further with his urolog ist. I do not see that this gentleman would be a good candidate for aggressive interventions or arevalo rgery. He readily agrees. A fair amount of counseling was done regarding the nature of prostate c ancer in the elderly. I do not see evidence of congestive heart failure or fluid overload. He is no t interested in the pulmonary function test to better define this, and agrees to a trial of albutero l as needed.I think his dyspnea probably is related to COPD. If indeed albuterol helps, then this w ould be a reasonable thing for him to use. Future Tests Future scheduled test information is unavailable Pending Tests Pending diagnostic test information is unavailable Future Visits Future appointment information is unavailable Referrals to Other Providers Reason for Referral Referral Start Date Provider Provider Lilly ct Information Provider Address Tara Osborne Email: [email or web address] Phone: [phone] [facility] [address] Vlad Elizabeth MD Work Phone: [phone] [facility] [address] [facility] [address] L29.9 - Pruritus, unspecified May 16, 2020 [facility] [address], [address] [facility] [address] B07.9 - Viral wart, unspecified May 16, 2020 dermatology Future Procedures Future procedure information is unavailable Future Medications Future medication information is unavailable Patient Instructions A-fib (Atrial Fibrillation) (GEN) Social History Smoking Status Status Date of Observation Former smoker May 10, 2020 1 0:13am Observation Status Observation Response Lobo e of Response Smoking Status Former smoker May 10, 2020 9:13am Alcohol Use No January 3:31pm Substance Use No January 222019 3:31pm Inhalant Use No December 062019 10:58am When did patient quit smoking? 45 yrs ago December 07, 2019 10:58am Assigned Sex Male Vital Signs Vital Reading Result Ref erence Range Collection Date/Time Height 63 [in_i] July 19, 2019 10:13am Weight 189.00 [lb_av] July 19, 2019 10:13am Heart Rate 94 /min 60-100 July 19, 2019 10:13am Respiratory rate 16 /min 12-24 July 19, 2019 10:13am Oxygen saturation by Pulse oximetry 97 % 95- 100 July 19, 2019 10:13am BP Systolic 118 mm[Hg] July 19, 2019 10:13am BP Diastolic 64 mm[Hg] July 19, 2019 10:13am BMI (Body Mass Index) 33.5 kg/m2 July 19, 2019 10:13am Height 63 [in_i] August 13, 2019 1:18pm [...] 2019 8:27am Heart Rate 110 /min 60-1 00 December 09, 2019 8:27am Respiratory rate 18 /min 12-December 09, 2019 8:27am Oxygen saturation by Pulse [...] 09, 2019 9:11am Respiratory rate 18 /min -December 09, 2019 9:11am Oxygen saturation by Pulse [...] 11, 2020 10:50am Respiratory rate 18 /min 12-24 July 11, 2020 10:50am Oxygen saturation by Pulse oximetry 98 % 95- 100 July 11, 2020 10:50am BP Systolic 100 mm[Hg] July 11, 2020 10:50am BP Diastolic 64 mm[Hg] July 11, 2020 10:50am BMI (Body Mass Index) 30.3 kg/m2 July 11, 2020 10:50am
--- OUTSIDE RECORDS SUMMARY | 2020-09-06 20:05 | CCD | Continuity of Care Document ---
Author Author Lasha DUARTE MD Organization Unknown Address [place] [place] [address] Phone [phone] Care Team Providers Care Commercial Accountant Name Role Phone Devon Gee MD AUTM [phone] [place] Melgar MD AUTM [phone] Tray Vazquez MD AUTM [phone] Karl Weir MD AUTM [phone] Tara Osborne MUCKER OPERATOR AUTM [phone] Problems Active Problems Provider Date Coronary arteriosclerosis [...] lly Exercise Type/Frequency Exercises daily tend the [employer] Business Plan Exercise Limitations Shortness Of Breath Exercise Limitations [...] Available Procedures Date Code Description Status 01/31/2020 41610 ECG 12-Lead Completed Medical Devices Description No Information Available Encounters Type Date Location Provider Dx Diagnosis Office Visit 05/10/2020 8:11a Main Office Harrison [...] PA-C I25.1 0 Athscl heart disease of [place] coronary artery w/o [facility] pctrs I25.2 Old myocardial infarction Z95.1 Presence [...] Dietary counseling and surve illance Office Visit 01/12/2020 11:51a Main Office Harrison Duarte MD E78.2 Mixed hyperlipidemia I10 Essential (primary) hyperten sheng E78.00 Pure hypercholesterolemia, u nspecified 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 Assessments Date Code Description Provider 05/10/2020 I34.0 Nonrheumatic mitral (valve) insu fficiency [...] MD 03/31/2020 I25.10 Atherosclerotic heart disease of [place] coronary artery with Harrison Duarte MD 02/21/2020 I34.0 Nonrheumatic mitral (valve) insu fficiency Harrison Duarte MD 02/21/2020 I35.0 Nonrheumatic aortic (valve) sten osis Harrison Duarte MD 02/21/2020 I50.32 Chronic diastolic (congestive) h eart failure Harrison Duarte MD 02/21/2020 I25.10 Atherosclerotic heart disease of [place] coronary artery with Harrison Duarte MD 01/31/2020 I25.10 Atherosclerotic heart disease of [place] coronary artery with Vivien Morel, PA-C 01/31/2020 I25.2 Old myocardial infarction Vivien [...] PA-C 01/31/2020 I48.21 Permanent atrial fibrillation Ahsan Canseco PA-C 01/31/2020 E78.2 Mixed hyperlipidemia Vivien Yaquelin Tania yoon PA-C 01/31/2020 I73.9 Peripheral vascular disease, uns pecified Vivien Morel PA-C 01/31/2020 Z71.3 Dietary counseling and surveilla kishan Morel PA-C 01/12/2020 E78.2 Mixed hyperlipidemia Harrison dodge MD 01/12/2020 I10 Essential (primary) hypertension Harrison Duarte MD 01/12/2020 E78.00 Pure hypercholesterolemia, unspe cified Harrison Duarte MD 01/12/2020 Z95.1 Presence of aortocoronary bypass graft Harrison Duarte MD Plan of Treatment Future Appointment(s):* 08/01/2020 10:15 am - Vivien Morel PA-C at Main Office 01/31/2020 - Vivien Morel PA-C* I25.10 Atherosclerotic heart disease of [place] coronary artery with * I25.2 Old myocardial [...]
--- OUTSIDE RECORDS SUMMARY | 2020-09-06 20:05 | CCD | Continuity of Care Document ---
Author Author [facility] Address [address] [place] [address] Phone Support Name Relationship Address Phone Devon Gee PRS [address] [place] [address] Lillian Vazquez PRS [address] [place] [address] Kaz Cid [employer]S [address] [place] [address] Julian Herrera PRS [address] [place] [address] Tono Guardado [employer]S [address] [place] [address] Tara Osborne PRS [address] [place] [address] Riki Ramos PRS [address] [place] [address] [place] [address] Kyaw Richardson PRS [address] [place] [address] Evan De Oliveira PRS [address] [place] [address] Carlos Drummond PRS [address] [place] [address] Allergies, Adverse Reactions, Alerts No known allergies. [...] 2019 10:41am June 14, 2020 5:42pm Calcitriol Active 0.25 MCG PO daily August 13, 2019 1:23pm pneumococcal 23-anna ps vaccine 25 mcg/0. 5 [...] DAY Omeprazole Active 20 MG PO daily March 08, 2020 9:12am Ferrous Gluconate Active 324 MG PO Once Per Day March 08, 2020 9:12am TAKE ONE TABLET BY MOUTH EVERY DAY Gemfibrozil Active 600 MG PO 2 Times Per Day May 16, 2020 9:13am Rosuvastatin (Crestor) 20 mg tablet Active 20 MG PO Once Per Day May 16, 2020 9 :13am Hydrocortisone (Anti-Itch (Hc)) 1 % cream Active 1 APPLIC TOP 2 to 4 times per day May 16, 2020 9:42am Aspirin Discontinued 325 [...] 2016 2:14pm March 19, 2016 10:21am Aa 6-Lybj-Txmbj-Armstrong-Hrb 126 (Gabadone Capsule) 889-07-72-56 mg capsule Discontinued 300 MG PO Once [...] Once Per Day June 05, 2016 9:02am April 21, 2017 6:38am Folic Acid Discontinued 1 TAB PO 2 Times Per Day June 05, 2016 9:02am December 10, 2016 [...] 1:43pm Zoster Vaccine Live (Pf) (Zostavax Vial) 10206 UNIT/0.65 ML suspension for reconstitution Discontinued 50116 UNIT SQ ONE TIME 1 October 31, [...] Discontinued 1 TAB PO Once Per Day April 21, 2017 6:38am May 29, 2017 12:08pm Ipratropium [place] Discontinued 2 SPRAYS NA 2 Times Per Da y May 19, 2017 3: 52pm December 09, 2018 6:03am Ipratropium [place] Discontinued 2 SPRAYS NA 2 Times Per Da y May 19, 2017 3: 52pm December 09, 2019 7:50am Pneumoc 13-Anna Conj-Dip Cr(Pf) (Prevnar 13*) 0.5 ML sy ringe Discontinued 0.5 ML IM ONE TIME May 19, 2017 4:09pm May 4:13pm Flu Vaccine [id number](5 Yr Up) (Afluria 1421-9268) 45 MCG/0.5 ML suspension Discontinued 45 MCG [...] 2 Times Per Day June 22, 2017 2:26pm December 26, 2017 [...] Active 1 TAB PO Once Per Day August 19, 2017 9:48am Gemfibrozil Discontinued 1 TAB PO 2 Times Per Day 180 August 19, 2017 9:48am September 18, 2018 1:47pm Finasteride Active 5 MG PO Once Per Day August 19, 2017 9:48am Ferrous Gluconate Discontinued [...] 90 January 08, 2018 3:24pm December 09, 2019 [...] MG PO Once Per Day 30 February 10, 2018 11:44am March 11, 2018 [...] 2 MG PO 2 Times Per Day April 08, 2018 4:58pm May 06, 2018 9:28am Arevalo 3 MG, M 2 MG, Tu 3 MG, W 3 MG, Th 2 MG, F 3 MG, Sa 2 MG Warfarin Discontinued 5 MG PO Once Per Day April 08, 2018 4:58pm April 09, 2018 [...] nce Per Day May 19, 2018 8 :21am December 09, 2018 7:53am Furosemide (Lasix) 40 [...] Time Per Week May 19, 2018 8 :am December 09, 2019 7:34am Warfarin Discontinued 2 MG [...] PO Once Per Day June 15, 2018 7:December 28, 2018 1:10pm Ferrous Gluconate Discontinued 1 [...] PO ONE TIME June 29, 2018 5:39pm February 10, 2019 [...] DAY Warfarin Discontinued 2.5 MG PO daily February 10, 2019 11:38am October 20, 2019 9:33am Warfarin Discontinued 1 MG PO daily February 10, 2019 11:41am October 20, 2019 9:33am half tab daily Folic Acid Discontinued 1 MG PO Once Per Day March 24, 2019 3:54pm March 08, 2020 [...] Day March 14, 2020 3:21pm Albuterol Sulfate Active 2 INH IH Four Times a Day 8.5 June 14, 2020 5:41pm Problems Active Problems Medical Problem Onset Date Status Atrial fibrillation with controlled ventricular respon se Active Hypertension, essential, benign January 06, 2015 Active Congestive heart failure (CHF) Active Atrial fibrillation Ac tive On warfarin therapy December 08, 2018 Active Hypercholesterolemia January 06, 2015 Active CKD (chronic kidney disease) stage 3, GFR 30-59 ml/min Active Itch of skin Active Chronic atrial fibrillation June 11, 2016 Active Diabetes mellitus type 2 in obese [facility] 2014 Active Adenocarcinoma of prostate Active [...] January 23, 2020 3:25pm 5.4 10e3/uL 4.45-10.71 [facility], [address] [place] [address] White Blood Count December 09, 2019 8:50am 4.9 10e3/uL 4.45-10.71 [facility], [address] [place] [address] White Blood Count June 30 7:18am 5.1 10e3/uL 4.45-10.71 [facility], [address] [place] [address] Red Blood Count January 23, 2020 3:25pm 3.52 10e6/uL 4.3-6.1 [facility], [address] [place] [address] Red Blood Count December 09, 2019 8:50am 2.85 10e6/uL 4.3-6.1 [facility], [address] [place] [address] Red Blood Count June 30, 2019 7:18am 3.49 10e6/uL 4.3-6.1 [facility], [address] [place] [address] 44008 Hemoglobin January 23, 2020 3:25pm 11.7 g/dL [facility], [address] [place] [address] Hemoglobin December 09, 2019 8:50am 9.2 g/dL [facility], [address] [place] [address] Hemoglobin June 30, 2019 7:18am 10.9 g/dL [facility], [address] [place] [address] 49975 Hematocrit January 23, 2020 3:25pm 34.6 % 42-52 [facility], [address] [place] [address] 76745 Hematocrit December 09, 2019 8:50am 26.3 % 42-52 [facility], [address] [place], [place] [id number] Hematocrit June 30, 2019 7:18am 32.6 % 4252 [facility], [address] [place], [place] [address] Mean Corpuscular Volume January 22, 020 3:25pm 98.3 fl 80-96 [facility], [address] [place], [place] [id number] Mean Corpuscular Volume December 09, 2019 8:50am 92.3 fl 80-96 [facility], [address] [place], [place] [address] Mean Corpuscular Volume June 7:18am 93.4 fl 80-96 [facility], [address] [place] [address] 98842 Mean Corpuscular Hemoglobin January 3:25pm 33.2 pg 27-31 [facility], [address] [place], [place] [address] Mean Corpuscular Hemoglobin December 082019 8:50am 32.3 pg 27-31 [facility], [address] [place], [place] [address] Mean Corpuscular Hemoglobin June 30, 2019 7:18am 31.2 pg 27-31 [facility], [address] [place], [place] [address] Mean Corpuscular Hemoglobin Concent January 23, 2020 3:25pm 33.8 g/dl 33-37 [facility], [address] [place], [place] [id number] Mean Corpuscular Hemoglobin Concent December 09, 2019 8:50am 35.0 g/dl [facility], [address] [place] [address] Mean Corpuscular Hemoglobin Concent June 30, 2019 7:18am 33.4 g/dl [facility], [address] [place] [address] Red Cell Distribution Width January 3:25pm 15 % 11-15 [facility], [address] [place] [address] Red Cell Distribution Width December 082019 8:50am 15 % 11-15 [facility], [address] [place] [address] Red Cell Distribution Width June 30, 2019 7:18am 15 % 11-15 [facility], [address] [place] [address] 06739 Platelet Count January 23, 2020 3:25pm 127 10e3/ul 130-472 [facility], [address] [place] [address] 48516 Platelet Count December 09, 2019 8:50am 123 10e3/ul 130-472 [facility], [address] [place] [address] 97340 Platelet Count June 30, 2019 7:18am 147 10e3/ul 130-472 [facility], [address] [place] [address] Mean Platelet Volume January 23, 2020 3:25p m 11.3 fl 9.1-13.1 [facility], [address] [place] [address] Mean Platelet Volume December 08 0 8:50am 10.8 fl 9.1-13.1 [facility], [address] [place] [address] Mean Platelet Volume June 30, 2019 7:18am 11.5 fl 9.1-13.1 [facility], [address] [place] [address] 83249 Neutrophils (%) (Auto) January 22 3:25pm 66.8 % [address] [facility], [address] [place] [address] 88478 Neutrophils (%) (Auto) December 08 8:50am 62.0 % [address] [place] [address] [facility], [address] [place] [address] 92588 Neutrophils (%) (Auto) June 7:18am 58.4 % [address] [place] [address] [facility]ATORY, [address] [place] [address] 59080 Absolute Neutrophil January 23, 2020 3:25pm 3.6 # 1.7-7.6 [facility], [address] [place] [address] 30805 Absolute Neutrophil December 09, 2019 8:50a m 3.0 # 1.7-7.6 [facility], [address] [place] [address] 58763 Absolute Neutrophil June 30 019 7:18am 3.0 # 1.7-7.6 [facility], [address] [place] [address] 28938 Lymphocytes (%) (Auto) January 22 3:25pm 18.8 % 14-46 [facility], [address] [place] [address] 61186 Lymphocytes (%) (Auto) December 08 020 8:50am 23.4 % 14-46 [facility], [address] [place] [address] 41174 Lymphocytes (%) (Auto) June 7:18am 24.6 % 14-46 [facility], [address] [place] [address] 84459 Lymphocytes # (Auto) January 23, 2020 3:25p m 1.0 # 0.6-4.6 [facility], [address] [place] [address] 37664 Lymphocytes # (Auto) December 08 0 8:50am 1.1 # 0.6-4.6 [facility], [address] [place] [address] 27430 Lymphocytes # (Auto) June 30, 2019 7:18am 1.3 # 0.6-4.6 [facility], [address] [place] [address] 93686 Monocytes (%) (Auto) January 23, 2020 3:25p m 9.9 % 4-12 [facility], [address] [place] [address] 08186 Monocytes (%) (Auto) December 08 0 8:50am 10.9 % 4-12 [facility], [address] [place] [address] 72042 Monocytes (%) (Auto) June 30, 2019 7:18am 10.9 % 4-12 [facility], [address] [place] [address] 54801 Monocytes # January 23, 2020 3:25pm 0.5 # 0.2-1.2 [facility], [address] [place] [address] 09218 Monocytes # December 09, 2019 8:50am 0.5 # 0.2-1.2 [facility], [address] [place] [address] 42808 Monocytes # June 30, 2019 7:18am 0.6 # 0.2-1.2 [facility], [address] [place] [address] 61655 Eosinophils (%) (Auto) January 22 3:25pm 3.9 % 0-7 [facility], [address] [place] [address] 40192 Eosinophils (%) (Auto) December 08 020 8:50am 2.9 % 0-7 [facility], [address] [place] [address] 44740 Eosinophils (%) (Auto) June 7:18am 5.1 % 0-7 [facility], [address] [place] [address] Absolute Eosinophils (CBC) January 3:25pm 0.2 # 0.0-0.5 [facility], [address] [place] [address] Absolute Eosinophils (CBC) November 8:50am 0.1 # 0.0-0.5 [facility], [address] [place] [address] Absolute Eosinophils (CBC) June 30, 2019 7:18am 0.3 # 0.0-0.5 [facility], [address] [place] [address] 75264 Basophils (%) (Auto) January 23, 2020 3:25p m 0.6 % 0.4-1.3 [facility], [address] [place] [address] 53909 Basophils (%) (Auto) December 08 0 8:50am 0.4 % 0.4-1.3 [facility], [address] [place] [address] 94614 Basophils (%) (Auto) June 30, 2019 7:18am 0.6 % 0.4-1.3 [facility], [address] [place] [address] 20368 Absolute Basophils (CBC) January 23, 2020 3:25pm 0.0 # 0.0-0.2 [facility], [address] [place] [address] 68376 Absolute Basophils (CBC) December 09, 2019 8:50am 0.0 # 0.0-0.2 [facility], [address] [place] [address] 69528 Absolute Basophils (CBC) June 302018 7:18am 0.0 # 0.0-0.2 [facility], [address] [place] [address] 29740 Immature Granulocyte % (Auto) January 092019 3:25pm 0.0 % 0-2 [facility], [address] [place] [address] 05065 Immature Granulocyte % (Auto) December 09, 2019 8:50am 0.4 % 0-2 [facility], [address] [place] [address] 64221 Immature Granulocyte % (Auto) Novemb 2018 7:18am 0.4 % 0-2 [facility], [address] [place] [address] 27213 Absolute Immature Granulocyte (auto January 23, 2020 3:25pm 0.0 # 0-0.1 [facility], [address] [place] [address] 62738 Absolute Immature Granulocyte (auto December 09, 2019 8:50am 0.0 # 0-0.1 [facility], [address] [place] [address] 75037 Absolute Immature Granulocyte (auto June 30, 2019 7:18am 0.0 # 0-0.1 [facility], [address] [place] [address] 31876 Add Manual Differential January 22 3:25pm No [facility], [address] [place] [address] 73740 Add Manual Differential December 09, 2019 8:50am No [facility], [address] [place] [address] 87818 Add Manual Differential June 7:18am No [facility], [address] [place] [address] 82238 Prothrombin Time June 23, 2020 9:40a m 34.0 SECONDS 9.6-12.3 [facility], [address] [place] [address] 91621 Prothrombin Time May 23, 2020 8:56am 25.7 SECONDS 9.6-12.3 [facility], [address] [place] [address] 79883 Prothrombin Time May 12, 2020 6:26am 32.4 SECONDS 9.6-12.3 [facility], [address] [place] [address] 97483 Prothrombin Time March 31, 2020 6:17am 25.2 SECONDS 9.6-12.3 [facility], [address] [place] [address] 24827 Prothrombin Time March 08, 2020 9:37am 22.5 SECONDS 9.6-12.3 [facility], [address] [place] [address] 14983 Prothrombin Time February 28, 2020 6:27am 29.5 SECONDS 9.6-12.3 [facility], [address] [place] [address] 91498 Prothrombin Time February 18, 2020 11:47am 16.9 SECONDS 9.6-12.3 [facility], [address] [place] [address] 72032 Prothrombin Time February 10, 2020 9:13am 18.7 SECONDS 9.6-12.3 [facility], [address] [place] [address] 54700 Prothrombin Time January 23, 2020 3:25pm 24.4 SECONDS 9.6-12.3 [facility], [address] [place] [address] 80410 Prothrombin Time January 21, 2020 6:17am 22.3 SECONDS 9.6-12.3 [facility], [address] [place] [address] 62593 Prothrombin Time January 14, 2020 6:12am 37.7 SECONDS 9.6-12.3 [facility], [address] [place] [address] 87509 Prothrombin Time January 07, 2020 8:35am 26.5 SECONDS 9.6-12.3 [facility], [address] [place] [address] Prothrombin Time January 06, 2020 8:35am 40.3 SECONDS 9.6-12.3 [facility], [address] [place] [address] 10753 Prothrombin Time December 30, 2019 8:30am 31.9 SECONDS 9.6-12.3 [facility], [address] [place] [address] 40640 Prothrombin Time December 27, 2019 8:40am 26.4 SECONDS 9.6-12.3 [facility], [address] [place] [address] 17302 Prothrombin Time December 24, 2019 8:35am 25.7 SECONDS 9.6-12.3 [facility], [address] [place] [address] 85484 Prothrombin Time December 23, 2019 8:18am 41.9 SECONDS 9.6-12.3 [facility], [address] [place] [address] 45759 Prothrombin Time December 22, 2019 7:56am 78.2 SECONDS 9.6-12.3 [facility], [address] [place] [address] 14639 Prothrombin Time December 15, 2019 8:17am 28.9 SECONDS 9.6-12.3 [facility], [address] [place] [address] 26458 Prothrombin Time December 13, 2019 7:19am 17.0 SECONDS 9.6-12.3 [facility], [address] [place] [address] 07654 Prothrombin Time December 06, 2019 8:34am 13.2 SECONDS 9.6-12.3 [facility], [address] [place] [address] 20440 Prothrombin Time December 01, 2019 8:30am 39.8 SECONDS 9.6-12.3 [facility], [address] [place] [address] 49796 Prothrombin Time November 26, 2019 8:55am 19.1 SECONDS 9.6-12.3 [facility], [address] [place] [address] 17413 Prothrombin Time November 23, 2019 6:12am 16.2 SECONDS 9.6-12.3 [facility], [address] [place] [address] 18061 Prothrombin Time November 09, 2019 6:02am 18.2 SECONDS 9.6-12.3 [facility], [address] [place] [address] 14178 Prothrombin Time October 19, 2019 6:15am 19.8 SECONDS 9.6-12.3 [facility], [address] [place] [address] 03463 Prothrombin Time October 12, 2019 7:21am 16.7 SECONDS 9.6-12.3 [facility], [address] [place] [address] 34445 Prothrombin Time September 14, 2019 7:20am 21.6 SECONDS 9.6-12.3 [facility], [address] [place] [address] 81964 Prothrombin Time September 02, 2019 11:25a m 23.9 SECONDS 9.6-12.3 [facility], [address] [place] [address] 03831 Prothrombin Time August 31, 2019 7:00am 29.2 SECONDS 9.6-12.3 [facility], [address] [place] [address] 64675 Prothrombin Time August 13, 2019 2:28pm 27.2 SECONDS 9.6-12.3 [facility], [address] [place] [address] 24966 Prothrombin Time August 09, 2019 8:42a m 24.1 SECONDS 9.6-12.3 [facility], [address] [place] [address] 42883 Prothrombin Time August 05, 2019 8:55a m 21.8 SECONDS 9.6-12.3 [facility], [address] [place] [address] 63104 Prothrombin Time August 03, 2019 9:55a m 38.5 SECONDS 9.6-12.3 [facility], [address] [place] [address] 30725 Prothrombin Time July 05, 2019 7:50a m 26.3 SECONDS 9.6-12.3 [facility], [address] [place] [address] 29073 Prothrombin Time June 30, 2019 7:18a m 34.0 SECONDS 9.6-12.3 [facility], [address] [place] [address] Prothrombin Time June 23, 2019 7:07a m 33.7 SECONDS 9.6-12.3 [facility], [address] [place] [address] INR International Normalized Ratio N ovember 2019 9:40am 3.4 0.9-1.1 THE INR IS OPERATIONALLY DEFINED FOR PIPPA PLASMA FROMPATIENTS STABILIZED ON ORAL ANTICOAGULANTS. ROUTINE ANTICOAGULANT THERAPY 2.0-3.0RECURRENT SYSTEMIC EMBOLISM/HEART VALVE REPLACEMENT 2.5-3.5 [facility], [address] [place] [address] INR International Normalized Ratio O ctober 2019 8:56am 2.5 0.9-1.1 THE INR IS OPERATIONALLY DEFINED FOR PIPPA SH PLASMA FROMPATIENTS STABILIZED ON ORAL ANTICOAGULANTS. ROUTINE ANTICOAGULANT THERAPY 2.0-3.0RECURRENT SYSTEMIC EMBOLISM/HEART VALVE REPLACEMENT 2.5-3.5 [facility], [address] [place] [address] 67032 INR International Normalized Ratio O ctober 2019 6:26am 3.2 0.9-1.1 THE INR IS OPERATIONALLY DEFINED FOR PIPPA SH PLASMA FROMPATIENTS STABILIZED ON ORAL ANTICOAGULANTS. ROUTINE ANTICOAGULANT THERAPY 2.0-3.0RECURRENT SYSTEMIC EMBOLISM/HEART VALVE REPLACEMENT 2.5-3.5 [facility], [address] [place] [address] 14305 INR International Normalized Ratio A ugust 2019 6:17am 2.5 0.9-1.1 THE INR IS OPERATIONALLY DEFINED FOR PIPPA SH PLASMA FROMPATIENTS STABILIZED ON ORAL ANTICOAGULANTS. ROUTINE ANTICOAGULANT THERAPY 2.0-3.0RECURRENT SYSTEMIC EMBOLISM/HEART VALVE REPLACEMENT 2.5-3.5 [facility], [address] [place] [address] INR International Normalized Ratio J gabriella 2019 9:37am 2.2 0.9-1.1 THE INR IS OPERATIONALLY DEFINED FOR PIPPA SH PLASMA FROMPATIENTS STABILIZED ON ORAL ANTICOAGULANTS. ROUTINE ANTICOAGULANT THERAPY 2.0-3.0RECURRENT SYSTEMIC EMBOLISM/HEART VALVE REPLACEMENT 2.5-3.5 [facility], [address] [place] [address] INR International Normalized Ratio J gabriella 2019 6:27am 2.9 0.9-1.1 THE INR IS OPERATIONALLY DEFINED FOR PIPPA SH PLASMA FROMPATIENTS STABILIZED ON ORAL ANTICOAGULANTS. ROUTINE ANTICOAGULANT THERAPY 2.0-3.0RECURRENT SYSTEMIC EMBOLISM/HEART VALVE REPLACEMENT 2.5-3.5 [facility], [address] [place] [address] INR International Normalized Ratio [facility] 2019 11:47am 1.6 0.9-1.1 THE INR IS OPERATIONALLY DEFINED FOR PPIPA SH PLASMA FROMPATIENTS STABILIZED ON ORAL ANTICOAGULANTS. ROUTINE ANTICOAGULANT THERAPY 2.0-3.0RECURRENT SYSTEMIC EMBOLISM/HEART VALVE REPLACEMENT 2.5-3.5 [facility], [address] [place] [address] INR International Normalized Ratio [facility] 2019 9:13am 1.8 0.9-1.1 THE INR IS OPERATIONALLY DEFINED FOR FRESH PLASMA FROMPATIENTS STABILIZED ON ORAL ANTICOAGULANTS. ROUTINE ANTICOAGULANT THERAPY 2.0-3.0RECURRENT SYSTEMIC EMBOLISM/HEART VALVE REPLACEMENT 2.5-3.5 [facility], [address] [place] [address] INR International Normalized Ratio J une 2019 3:25pm 2.5 0.9-1.1 THE INR IS OPERATIONALLY DEFINED FOR PIPPA SH PLASMA FROMPATIENTS STABILIZED ON ORAL ANTICOAGULANTS. ROUTINE ANTICOAGULANT THERAPY 2.0-3.0RECURRENT SYSTEMIC EMBOLISM/HEART VALVE REPLACEMENT 2.5-3.5 [facility], [address] [place] [id number] INR International Normalized Ratio J une 2019 6:17am 2.3 0.9-1.1 THE INR IS OPERATIONALLY DEFINED FOR PIPPA SH PLASMA FROMPATIENTS STABILIZED ON ORAL ANTICOAGULANTS. ROUTINE ANTICOAGULANT THERAPY 2.0-3.0RECURRENT SYSTEMIC EMBOLISM/HEART VALVE REPLACEMENT 2.5-3.5 [facility], [address] [place] [address] INR International Normalized Ratio J une 2019 6:12am 4.0 0.9-1.1 THE INR IS OPERATIONALLY DEFINED FOR FRESH PLASMA FROMPATIENTS STABILIZED ON ORAL ANTICOAGULANTS. ROUTINE ANTICOAGULANT THERAPY 2.0-3.0RECURRENT SYSTEMIC EMBOLISM/HEART VALVE REPLACEMENT 2.5-3.5 [facility], [address] [place] [address] INR International Normalized Ratio M ay 2019 8:35am 2.8 0.9-1.1 THE INR IS OPERATIONALLY DEFINED FOR FRESH PLASMA FROMPATIENTS STABILIZED ON ORAL ANTICOAGULANTS. ROUTINE ANTICOAGULANT THERAPY 2.0-3.0RECURRENT SYSTEMIC EMBOLISM/HEART VALVE REPLACEMENT 2.5-3.5 [facility], [address] [place] [address] INR International Normalized Ratio M ay 2019 8:35am 4.3 0.9-1.1 THE INR IS OPERATIONALLY DEFINED FOR FRESH PLASMA FROMPATIENTS STABILIZED ON ORAL ANTICOAGULANTS. ROUTINE ANTICOAGULANT THERAPY 2.0-3.0RECURRENT SYSTEMIC EMBOLISM/HEART VALVE REPLACEMENT 2.5-3.5 [facility], [address] [place] [id number] INR International Normalized Ratio M ay 2019 8:30am 3.4 0.9-1.1 THE INR IS OPERATIONALLY DEFINED FOR FRESH PLASMA FROMPATIENTS STABILIZED ON ORAL ANTICOAGULANTS. ROUTINE ANTICOAGULANT THERAPY 2.0-3.0RECURRENT SYSTEMIC EMBOLISM/HEART VALVE REPLACEMENT 2.5-3.5 [facility], [address] [place] [id number] INR International Normalized Ratio M ay 2019 8:40am 2.7 0.9-1.1 THE INR IS OPERATIONALLY DEFINED FOR FRESH PLASMA FROMPATIENTS STABILIZED ON ORAL ANTICOAGULANTS. ROUTINE ANTICOAGULANT THERAPY 2.0-3.0RECURRENT SYSTEMIC EMBOLISM/HEART VALVE REPLACEMENT 2.5-3.5 [facility], [address] [place] [id number] INR International Normalized Ratio M ay 2019 8:35am 2.7 0.9-1.1 THE INR IS OPERATIONALLY DEFINED FOR FRESH PLASMA FROMPATIENTS STABILIZED ON ORAL ANTICOAGULANTS. ROUTINE ANTICOAGULANT THERAPY 2.0-3.0RECURRENT SYSTEMIC EMBOLISM/HEART VALVE REPLACEMENT 2.5-3.5 [facility], [address] [place] [id number] INR International Normalized Ratio M ay 2019 8:18am 4.5 0.9-1.1 THE INR IS OPERATIONALLY DEFINED FOR FRESH PLASMA FROMPATIENTS STABILIZED ON ORAL ANTICOAGULANTS. ROUTINE ANTICOAGULANT THERAPY 2.0-3.0RECURRENT SYSTEMIC EMBOLISM/HEART VALVE REPLACEMENT 2.5-3.5 [facility], [address] [place] [address] [id number] INR International Normalized Ratio M ay 2019 7:56am 8.8 0.9-1.1 Called to DRAKE ROCHE AT [facility] OFFICE @ 0953 by Iraj Garcia. Results read back. Repeated by: Iraj Garcia 12/22/19 0954.Result Confirmation:8.8THE INR IS OPERATIONALLY DEFINED FOR FRESH PLASMA FROMPATIENTS STABILIZED ON ORAL ANTICOAGULANTS. ROUTINE ANTICOAGULANT THERAPY 2.0-3.0RECURRENT SYSTEMIC EMBOLISM/HEART VALVE REPLACEMENT 2.5-3.5 [facility], [address] [place] [address] [id number] INR International Normalized Ratio M ay 2019 8:17am 3.0 0.9-1.1 THE INR IS OPERATIONALLY DEFINED FOR FRESH PLASMA FROMPATIENTS STABILIZED ON ORAL ANTICOAGULANTS. ROUTINE ANTICOAGULANT THERAPY 2.0-3.0RECURRENT SYSTEMIC EMBOLISM/HEART VALVE REPLACEMENT 2.5-3.5 [facility], [address] [place] [address] 84515 INR International Normalized Ratio M ay 2019 7:19am 1.7 0.9-1.1 THE INR IS OPERATIONALLY DEFINED FOR FRESH PLASMA FROMPATIENTS STABILIZED ON ORAL ANTICOAGULANTS. ROUTINE ANTICOAGULANT THERAPY 2.0-3.0RECURRENT SYSTEMIC EMBOLISM/HEART VALVE REPLACEMENT 2.5-3.5 [facility], [address] [place] [address] 22463 INR International Normalized Ratio A pril 2019 8:34am 1.3 0.9-1.1 THE INR IS OPERATIONALLY DEFINED FOR PIPPA SH PLASMA FROMPATIENTS STABILIZED ON ORAL ANTICOAGULANTS. ROUTINE ANTICOAGULANT THERAPY 2.0-3.0RECURRENT SYSTEMIC EMBOLISM/HEART VALVE REPLACEMENT 2.5-3.5 [facility], [address] [place] [address] 70084 INR International Normalized Ratio A pril 2019 8:30am 4.3 0.9-1.1 THE INR IS OPERATIONALLY DEFINED FOR PIPPA SH PLASMA FROMPATIENTS STABILIZED ON ORAL ANTICOAGULANTS. ROUTINE ANTICOAGULANT THERAPY 2.0-3.0RECURRENT SYSTEMIC EMBOLISM/HEART VALVE REPLACEMENT 2.5-3.5 [facility], [address] [place] [address] INR International Normalized Ratio A pril 2019 8:55am 1.9 0.9-1.1 THE INR IS OPERATIONALLY DEFINED FOR PIPPA SH PLASMA FROMPATIENTS STABILIZED ON ORAL ANTICOAGULANTS. ROUTINE ANTICOAGULANT THERAPY 2.0-3.0RECURRENT SYSTEMIC EMBOLISM/HEART VALVE REPLACEMENT 2.5-3.5 [facility], [address] [place] [address] INR International Normalized Ratio A pril 2019 6:12am 1.6 0.9-1.1 THE INR IS OPERATIONALLY DEFINED FOR PIPPA SH PLASMA FROMPATIENTS STABILIZED ON ORAL ANTICOAGULANTS. ROUTINE ANTICOAGULANT THERAPY 2.0-3.0RECURRENT SYSTEMIC EMBOLISM/HEART VALVE REPLACEMENT 2.5-3.5 [facility], [address] [place] [address] INR International Normalized Ratio M arch 2019 6:02am 1.8 0.9-1.1 THE INR IS OPERATIONALLY DEFINED FOR PIPPA SH PLASMA FROMPATIENTS STABILIZED ON ORAL ANTICOAGULANTS. ROUTINE ANTICOAGULANT THERAPY 2.0-3.0RECURRENT SYSTEMIC EMBOLISM/HEART VALVE REPLACEMENT 2.5-3.5 [facility], [address] [place] [address] INR International Normalized Ratio M arch 2019 6:15am 2.0 0.9-1.1 THE INR IS OPERATIONALLY DEFINED FOR PIPPA SH PLASMA FROMPATIENTS STABILIZED ON ORAL ANTICOAGULANTS. ROUTINE ANTICOAGULANT THERAPY 2.0-3.0RECURRENT SYSTEMIC EMBOLISM/HEART VALVE REPLACEMENT 2.5-3.5 [facility], [address] [place] [address] INR International Normalized Ratio M arch 2019 7:21am 1.7 0.9-1.1 THE INR IS OPERATIONALLY DEFINED FOR PIPPA SH PLASMA FROMPATIENTS STABILIZED ON ORAL ANTICOAGULANTS. ROUTINE ANTICOAGULANT THERAPY 2.0-3.0RECURRENT SYSTEMIC EMBOLISM/HEART VALVE REPLACEMENT 2.5-3.5 [facility], [address] [place] [address] INR International Normalized Ratio F ebruary 2019 7:20am 2.20 0.9-1.1 THE INR IS OPERATIONALLY DEFINED FOR PIPPA SH PLASMA FROMPATIENTS STABILIZED ON ORAL ANTICOAGULANTS. ROUTINE ANTICOAGULANT THERAPY 2.0-3.0RECURRENT SYSTEMIC EMBOLISM/HEART VALVE REPLACEMENT 2.5-3.5 [facility], [address] [place] [address] [id number] INR International Normalized Ratio J anuary 2019 11:25am 2.5 0.9-1.1 THE INR IS OPERATIONALLY DEFINED FOR PIPPA SH PLASMA FROMPATIENTS STABILIZED ON ORAL ANTICOAGULANTS. ROUTINE ANTICOAGULANT THERAPY 2.0-3.0RECURRENT SYSTEMIC EMBOLISM/HEART VALVE REPLACEMENT 2.5-3.5 [facility], [address] [place] [address] 60220 INR International Normalized Ratio J anuary 2019 7:00am 3.1 0.9-1.1 THE INR IS OPERATIONALLY DEFINED FOR PIPPA SH PLASMA FROMPATIENTS STABILIZED ON ORAL ANTICOAGULANTS. ROUTINE ANTICOAGULANT THERAPY 2.0-3.0RECURRENT SYSTEMIC EMBOLISM/HEART VALVE REPLACEMENT 2.5-3.5 [facility], [address] [place] [address] 56886 INR International Normalized Ratio J anuary 2019 2:28pm 2.8 0.9-1.1 THE INR IS OPERATIONALLY DEFINED FOR PIPPA SH PLASMA FROMPATIENTS STABILIZED ON ORAL ANTICOAGULANTS. ROUTINE ANTICOAGULANT THERAPY 2.0-3.0RECURRENT SYSTEMIC EMBOLISM/HEART VALVE REPLACEMENT 2.5-3.5 [facility], [address] [place] [address] 74347 INR International Normalized Ratio D ec2018 8:42am 2.5 0.9-1.1 THE INR IS OPERATIONALLY DEFINED FOR PIPPA SH PLASMA FROMPATIENTS STABILIZED ON ORAL ANTICOAGULANTS. ROUTINE ANTICOAGULANT THERAPY 2.0-3.0RECURRENT SYSTEMIC EMBOLISM/HEART VALVE REPLACEMENT 2.5-3.5 [facility], [address] [place] [address] 43580 INR International Normalized Ratio D ec2018 8:55am 2.2 0.9-1.1 THE INR IS OPERATIONALLY DEFINED FOR PIPPA SH PLASMA FROMPATIENTS STABILIZED ON ORAL ANTICOAGULANTS. ROUTINE ANTICOAGULANT THERAPY 2.0-3.0RECURRENT SYSTEMIC EMBOLISM/HEART VALVE REPLACEMENT 2.5-3.5 [facility], [address] [place] [address] 84555 INR International Normalized Ratio D ec2018 9:55am 4.1 0.9-1.1 THE INR IS OPERATIONALLY DEFINED FOR PIPPA SH PLASMA FROMPATIENTS STABILIZED ON ORAL ANTICOAGULANTS. ROUTINE ANTICOAGULANT THERAPY 2.0-3.0RECURRENT SYSTEMIC EMBOLISM/HEART VALVE REPLACEMENT 2.5-3.5 [facility], [address] [place] [address] 96738 INR International Normalized Ratio N ov2018 7:50am 2.7 0.9-1.1 THE INR IS OPERATIONALLY DEFINED FOR PIPPA SH PLASMA FROMPATIENTS STABILIZED ON ORAL ANTICOAGULANTS. ROUTINE ANTICOAGULANT THERAPY 2.0-3.0RECURRENT SYSTEMIC EMBOLISM/HEART VALVE REPLACEMENT 2.5-3.5 [facility], [address] [place] [address] 28155 INR International Normalized Ratio N ov2018 7:18am 3.6 0.9-1.1 THE INR IS OPERATIONALLY DEFINED FOR PIPPA SH PLASMA FROMPATIENTS STABILIZED ON ORAL ANTICOAGULANTS. ROUTINE ANTICOAGULANT THERAPY 2.0-3.0RECURRENT SYSTEMIC EMBOLISM/HEART VALVE REPLACEMENT 2.5-3.5 [facility], [address] [place] [address] INR International Normalized Ratio N ov2018 7:07am 3.6 0.9-1.1 THE INR IS OPERATIONALLY DEFINED FOR PIPPA SH PLASMA FROMPATIENTS STABILIZED ON ORAL ANTICOAGULANTS. ROUTINE ANTICOAGULANT THERAPY 2.0-3.0RECURRENT SYSTEMIC EMBOLISM/HEART VALVE REPLACEMENT 2.5-3.5 [facility], [address] [place] [address] 81372 Urine Color June 30, 2019 7:18am Yellow [facility], [address] [place] [address] 17167 Urine Appearance June 30, 2019 7:18a m Clear CLEAR [facility], [address] [place] [address] 20806 Urine pH June 30, 2019 7:18am 6.0 [facility], [address] [place] [address] 93247 Urine Specific [place] June 7:18am 1.014 [facility], [address] [place] [address] 09931 Urine Leukocyte Esterase June 302018 7:18am Negative NEGATIVE [facility], [address] [place] [address] 43144 Urine Nitrite June 30, 2019 7:18am Negative NEGATIVE [facility], [address] [place] [address] 13153 Urine Protein June 30, 2019 7:18am Negative NEGATIVE [facility], [address] [place] [address] 53479 Urine Glucose June 30, 2019 7:18am Negative NEGATIVE [facility], [address] [place] [address] 54152 Urine Ketones June 30, 2019 7:18am Negative NEGATIVE [facility], [address] [place] [address] 91245 Urine Urobilinogen June 30 7:18am 0.2 eu/dl [facility], [address] [place] [address] 49831 Urine Bilirubin June 30, 2019 7:18am Negative NEGATIVE [facility], [address] [place] [address] 74813 Urine Blood June 30, 2019 7:18am Negative NEGATIVE [facility], [address] [place] [address] 23747 Microscopic Urinalysis Comment Novem 2018 7:18am No [facility], [address] [place] [address] 02194 Blood Urea Nitrogen January 23, 2020 3:25pm 73 mg/dL 05-03 [facility], [address] [place] [address] Blood Urea Nitrogen December 09, 2019 8:50a m 95 mg/dL 05-03 Called to KENNETH Nava @ 1024 by Maggie Clark. Results read back. Repeated by: Maggie Clark 12/09/19 1024.Result Confirmation: 98 mg/dL [facility], [address] [place] [address] Blood Urea Nitrogen July 23 019 8:10am 77 mg/dL 05-03 Called to Duane MCKEON @ 0902 by Ambar Ann. Results read back. Repeated by: Ambar Ann 07/23/19 0903.Result Confirmation: 75 mg/dL [facility], [address] [place] [address] Blood Urea Nitrogen June 30 7:18am 75 mg/dL 05-03 [facility], [address] [place] [address] Sodium Level January 23, 2020 3:25pm 139 mmol/L 132-146 [facility], [address] [place] [address] 31528 Sodium Level December 09, 2019 8:50am 139 mmol/L 132-146 [facility], [address] [place] [address] 49578 Sodium Level July 23, 2019 8:10am 141 mmol/L 132-146 [facility], [address] [place] [address] 59940 Sodium Level June 30, 2019 7:18am 141 mmol/L 132-146 [facility], [address] [place] [address] Potassium Level January 23, 2020 3:25pm 4.2 mmol/L 3.5-5.5 [facility], [address] [place] [address] 04289 Potassium Level December 09, 2019 8:50am 4.3 mmol/L 3.5-5.5 [facility], [address] [place] [address] 77850 Potassium Level July 23, 2019 8:10am 4.2 mmol/L 3.5-5.5 [facility], [address] [place] [address] 46732 Potassium Level June 30, 2019 7:18am 4.5 mmol/L 3.5-5.5 [facility], [address] [place] [address] 19823 Chloride Level January 23, 2020 3:25pm 109 mmol/l 99-109 [facility], [address] [place] [address] 92604 Chloride Level December 09, 2019 8:50am 113 mmol/l 99-109 [facility], [address] [place] [address] 16660 Chloride Level July 23, 2019 8:10am 108 mmol/l 99-109 [facility], [address] [place] [address] 84862 Chloride Level June 30, 2019 7:18am 108 mmol/l 99-109 [facility], [address] [place] [address] 36957 Carbon Dioxide Level January 23, 2020 3:25p m 19 mmol/l 20-31 [facility], [address] [place] [address] 09527 Carbon Dioxide Level December 08 0 8:50am 16 mmol/l 20-31 [facility], [address] [place] [address] 46365 Carbon Dioxide Level July 23, 2019 8:10am 22 mmol/l 20-31 [facility], [address] [place] [address] 17797 Carbon Dioxide Level June 30, 2019 7:18am 22 mmol/l 20-31 [facility], [address] [place] [address] 45049 Anion Gap January 23, 2020 3:25pm 15 mmol/l 8-16 [facility], [address] [place] [address] 83486 Anion Gap December 09, 2019 8:50am 14 mmol/l 8-16 [facility], [address] [place] [address] 45309 Anion Gap July 23, 2019 8:10am 15 mmol/l 8-16 [facility], [address] [place] [address] 84493 Anion Gap June 30, 2019 7:18am 16 mmol/l 8-16 [facility], [address] [place] [address] 35137 Glucose Level January 23, 2020 3:25pm 177 mg/dL 74-106 [facility], [address] [place] [address] 61615 Glucose Level December 09, 2019 8:50am 134 mg/dL 74-106 [facility], [address] [place] [address] Glucose Level July 23, 2019 8:10am 141 mg/dL 74-106 [facility], [address] [place] [address] 85363 Glucose Level June 30, 2019 7:18am 90 mg/dL 74-106 [facility], [address] [place] [address] 17193 Creatinine January 23, 2020 3:25pm 3.0 mg/dL 0.5-1.1 [facility], [address] [place] [address] Creatinine December 09, 2019 8:50am 4.0 mg/dL 0.5-1.1 [facility], [address] [place] [address] Creatinine July 23, 2019 8:10am 3.7 mg/dL 0.5-1.1 [facility], [address] [place] [address] 15965 Creatinine June 30, 2019 7:18am 3.5 mg/dL 0.5-1.1 [facility], [address] [place] [address] 78142 Glomerular Filtration Rate Calc January 23, 2020 3:25pm 20 ml/min ABOVE 60 [facility], [address] [place] [address] Glomerular Filtration Rate Calc Apri l 2019 8:50am 15 ml/min ABOVE 60 [facility], [address] [place] [address] 76753 Glomerular Filtration Rate Calc Dece mber 2018 8:10am 16 ml/min ABOVE 60 [facility], [address] [place] [address] 35249 Glomerular Filtration Rate Calc Nove er 2018 7:18am 17 ml/min ABOVE 60 [facility], [address] [place] [address] 71258 Alanine Aminotransferase (ALT/SGPT) January 23, 2020 3:25pm 17 U/L 10-49 [facility], [address] [place] [address] 61627 Alanine Aminotransferase (ALT/SGPT) December 09, 2019 8:50am 20 U/L 10-49 [facility], [address] [place] [address] Alanine Aminotransferase (ALT/SGPT) June 30, 2019 7:18am 15 U/L 10-49 [facility], [address] [place] [address] 78797 Aspartate Amino Transf (AST/SGOT) Ju 2019 3:25pm 16 U/L 0-33 [facility], [address] [place] [address] 87805 Aspartate Amino Transf (AST/SGOT) Ap [facility] 2019 8:50am 16 U/L 0-33 [facility], [address] [place] [address] 17127 Aspartate Amino Transf (AST/SGOT) No vember 2018 7:18am 17 U/L 0-33 [facility], [address] [place] [address] 09850 Alkaline Phosphatase January 23, 2020 3:25p m 119 U/L 45-129 [facility], [address] [place] [address] 65695 Alkaline Phosphatase December 08 0 8:50am 112 U/L 45-129 [facility], [address] [place] [address] 16326 Alkaline Phosphatase June 30, 2019 7:18am 111 U/L 45-129 [facility], [address] [place] [address] 67565 Calcium Level January 23, 2020 3:25pm 9.8 mg/dL 8.5-10.1 [facility], [address] [place] [address] 62574 Calcium Level December 09, 2019 8:50am 9.8 mg/dL 8.5-10.1 [facility], [address] [place] [address] 55913 Calcium Level July 23, 2019 8:10am 9.7 mg/dL 8.5-10.1 [facility], [address] [place] [address] 36449 Calcium Level June 30, 2019 7:18am 9.8 mg/dL 8.5-10.1 [facility], [address] [place] [address] 19159 Total Bilirubin January 23, 2020 3:25pm 0.3 mg/dL 0.3-1.2 [facility], [address] [place] [address] Total Bilirubin December 09, 2019 8:50am 0.3 mg/dL 0.3-1.2 [facility], [address] [place] [address] 20990 Total Bilirubin June 30, 2019 7:18am 0.4 mg/dL 0.3-1.2 [facility], [address] [place] [address] 46313 Albumin January 23, 2020 3:25pm 3.7 g/dL 3.2-4.8 [facility], [address] [place] [address] Albumin December 09, 2019 8:50am 3.9 g/dL 3.2-4.8 [facility], [address] [place], [place] [id number] Albumin June 30, 2019 7:18am 4.2 g/dL 3.2-4.8 [facility], [address] [place], [place] [id number] Serum Total Protein January 23, 2020 3:25pm 7.5 g/dL 5.7-8.2 [facility], [address] [place], [place] [id number] Serum Total Protein December 09, 2019 8:50a m 7.5 g/dL 5.7-8.2 [facility], [address] [place], [place] [address] Serum Total Protein June 30 019 7:18am 7.1 g/dL 5.7-8.2 [facility], [address] [place] [address] 97767 Triglycerides Level June 30 019 7:18am 139 mg/dL 0-150 [facility], [address] [place] [address] Cholesterol Level June 30 201 9 7:18am 199 mg/dL 120-200 [facility], [address] [place], [place] [address] HDL Cholesterol June 30, 2019 7:18am 59 mg/dL HDL Less than 40 mg/dL: Major risk for CHDHDL Greater than 59 mg/dL: Low risk for CHD [facility], [address] [place] [address] 82498 LDL Cholesterol, Calculated June 30, 2019 7:18am 113 mg/dL 0-100 [facility], [address] [place] [address] 96876 Iron Level December 09, 2019 8:51am 129 ug/dL 65-175 Iron values ma y be falsely elevated in serum samples frompatients treated with anticoagulants (e.g., hemodialysispatients) [facility], [address] [place] [address] 91140 Iron Saturation December 09, 2019 8:51am 38 20-55 [facility], [address] [place] [address] 78984 Total Iron Binding Capacity December 082019 8:51am 341 ug/dl 250-450 [facility], [address] [place], [place] [address] Digoxin Level June 30, 2019 7:18am 0.1 ng/mL 0.8-2.0 Repeated by: Kera Wilkins 06/30/19 1130.Result Confirmation: 0.1 ng/mL [facility], [address] [place] [address] Ferritin December 09, 2019 8:51am 432 ng/mL 22-322 [facility], [address] [place], [place] [address] Troponin I December 09, 2019 8:50am Less than 0.015 ng/mL 0.00-0.09 Less than 0.09 NG/ML Negative0.10 - 0.77 NG/ML High Risk0.78 NG/ML or Greater Positive The WHO defined the cutoff (definition for diagnosis of OR)for this method as 0.78 ng/ml. [facility], [address] [place] [address] 79300 Testosterone Level November 09, 2019 6:02am 5 ng/dL Adult male reference interval is based on a population ofhealthy nonobese males (BMI <30) between 19 and 39 yearsold. Warren et.al. JCEM 2017,102;7071-9237. PMID:[id number]. [facility] , [address] [facility] [address] Free Testosterone November 09, 2019 6:02am 3.8 pg/mL Performed at: RN - [facility] [address] [id number] Director: Cecy Babin MD, Phone: [phone] [facility] , [address] [facility] [address] Lyme Disease Ab Tot Immunoglobulins March 08, 2020 9:37am Less than 0.91 ISR Negative <0.91 Equivocal 0.91 - 1.09 Positive >1.09 [facility] , [address] [facility] [address] Lyme Disease IgM Ab Quantitation Feb 9:37am Less than 0.80 index Negative <0.80 Equivocal 0.80 - 1.19 Positive >1.19 IgM levels may peak at 3-6 weeks post infection, then gradually decline.Performed at: RN - [facility] [address] [id number] Director: Cecy Babin MD, Phone: [phone] [facility] , [address] [facility] [address] Urine Random Creatinine June 7:18am 93.0 mg/dL THERE IS NO ESTABLISHED RANGE FOR RANDOM URINE CREATININE [facility], [address] [place] [address] Urine Microalbumin June 30 7:18am 46.4 mg/L 0.0-29.9 [facility], [address] [place] [address] Urine Microalbumin/Creatinine Ratio June 30, 2019 7:18am 49.8 ug/mg 0.0-30.0 [facility], [address] [place] [address] Hemoglobin A1c June 30, 2019 7:18am 6.7 % 4.0-6.0 The following ranges may be used for interpretation of results: HGBA1C degree of glucose control: Greater than 8%: Action Suggested * Less than 7%: Goal of Diabetic Therapy Less than 6%: Normal Factors such as duration of diabetes, adherence to therapyand the age of the patient should also be considered inassessing the degree of blood glucose control. * High risk of developing detention complications such asretinopathy, nephropathy, neuropathy, cardiopathy, etc. Some danger of hypoglycemic reaction in Type I diabetics.Some glucose intolerant individuals and "Sub Clinical"diabetics may demonstrate HGBA1C levels in this area. [facility], [address] [place] [address] 68392 Estimated Average Glucose (eAG) Geraldine babcock 2018 7:18am 146 mg/dl An A1C of 7% - the goal of diabetic ther apy - is equivalentto an EAG of 154 mg/dl. [facility], [address] [place] [address] 04933 Pro-B-Type Natriuretic Peptide December 09, 2019 8:50am 1806.00 pg/mL 0.00-450 [facility], [address] [place] [address] Diagnostic Imaging Reports Report Dictated Date/Time Dictated By Status Radiology Report July 28, 2019 10:54am Carlos Ulloa MD completed [facility] [address] [place] [address] [phone] NAME SEX PT STATUS ACCOUNT NUMBER [facility] REG REF [id number] ORDERING PHYSICIAN LOCATION MEDICAL RECORD NO. Tray Vazquez M.D. [place] [id number] ATTENDING PHYSICIAN DATE OF DATE OF EXAM/TIME Devon Gee MD 1940 07/28/199 TYPE / EXAM Xray Chest 2 view [...] Trans Dt/Tm: Trans by: DT Prt Dt/Tm: [id number]: Total DLP = 0.00 mGy-cm Fluoroscopy Time (in secs): Radiology Report July 28, 2019 12:08pm Carlos Ulloa MD completed [place] [address] [place] [address] [phone] NAME SEX PT STATUS ACCOUNT NUMBER [facility] REG REF [id number] ORDERING PHYSICIAN LOCATION MEDICAL RECORD NO. Tray Vazquez M.D. [place] [id number] ATTENDING PHYSICIAN DATE OF DATE OF EXAM/TIME Devon Gee MD 1940 07/28/191023 TYPE / EXAM CT Abd/pel w/o contrast [...] Reported By Carlos Ulloa MD on 07/28/19 1208 Signed By Carlos Ulloa MD on 07/28/19 121 Date Time CC: Devon Gee MD; Carlos Ulloa MD Techn: DENYS Trans Dt/Tm: Trans by: DT Prt Dt/Tm: : Total DLP = 427.00 mGy-cm : Total Radiation Dose = 6.4050 mSv Lifetime Dose: 6.4050 mSv Radiology Report July 28, 2019 1:19p m Carlos Ulloa MD completed [facility] [address] [place] [address] [phone] NAME SEX PT STATUS ACCOUNT NUMBER [facility] REG REF [id number] ORDERING PHYSICIAN LOCATION MEDICAL RECORD NO. Tray Vazquez M.D. [place] [id number] ATTENDING PHYSICIAN DATE OF DATE OF EXAM/TIME [...] 2019 9:37a m Carlos Ulloa MD completed [facility] [address] [place] [address] [phone] NAME SEX PT STATUS ACCOUNT NUMBER [facility] PRE REF [id number] ORDERING PHYSICIAN LOCATION MEDICAL RECORD NO. Tray Vazquez M.D. RAD [id number] ATTENDING PHYSICIAN DATE OF DATE OF EXAM/TIME [...] Trans Dt/Tm: Trans by: DT Prt Dt/Tm: [id number]: Total DLP = 0.00 mGy-cm Fluoroscopy Time (in secs): Radiology Report July 30, 2019 9:40a m Carlos Ulloa MD completed [facility] [address] [place] [id number] [phone] NAME SEX PT STATUS ACCOUNT NUMBER [facility] GOME[facility] PRE REF [id number] ORDERING PHYSICIAN LOCATION MEDICAL RECORD NO. Tray Vazquez M.D. [facility] [id number] ATTENDING PHYSICIAN DATE OF DATE OF EXAM/TIME [...] Trans Dt/Tm: Trans by: DT Prt Dt/Tm: [id number]: Total DLP = 0.00 mGy-cm Fluoroscopy Time (in secs): Radiology Report August 13, 2019 2:30pm Young Lira MD completed [place] [id number] [place] [address] [phone] NAME SEX PT STATUS ACCOUNT NUMBER [facility] REG REF [id number] ORDERING PHYSICIAN LOCATION MEDICAL RECORD NO. Julian DO [facility] [id number] ATTENDING PHYSICIAN DATE OF DATE OF EXAM/TIME HerrreaJulian whipple 1940 08/13/19 / 1423 TYPE / EXAM [...] Trans Dt/Tm: Trans by: DT Prt Dt/Tm: [id number]: Total DLP = 0.00 mGy-cm Fluoroscopy Time (in secs): Radiology Report October 20, 2019 11:28am Young Lira MD completed [facility] [address] [place] [id number] [phone] NAME SEX PT STATUS ACCOUNT NUMBER [facility] RE[facility] [id number] ORDERING PHYSICIAN LOCATION MEDICAL RECORD NO. Tono Guardado DO RAD [id number] ATTENDING PHYSICIAN DATE OF DATE OF EXAM/TIME [...] Dt/Tm: : Total DLP = 0.00 mGy-cm Fluoroscopy Time (in secs): Radiology Report December 09, 2019 10:25am Young Lira MD completed [facility] [address] [place] [address] [phone] NAME SEX PT STATUS ACCOUNT NUMBER [facility]OME[facility] [id number] ORDERING PHYSICIAN LOCATION MEDICAL RECORD NO. Ko Ramos MD ER [id number] ATTENDING PHYSICIAN DATE OF DATE OF EXAM/TIME Dylon,Tara 1940 12/09/19 / 9 TYPE / EXAM Xray Chest One View [...] Date Time CC: Young Lira MD; Tara KISS SETTER HAND Dylon Techn: FROSA Trans Dt/Tm: Trans by: DT Prt Dt/Tm: : Total DLP = 0.00 mGy-cm Fluoroscopy Time (in secs): Radiology Report January 23, 2020 5:08pm Floyd Cain MD completed [facility] [address] [place] [id number] [phone] NAME SEX PT STATUS ACCOUNT NUMBER [facility] [id number] ORDERING PHYSICIAN LOCATION MEDICAL RECORD NO. Kyaw Richardson [id number] ATTENDING PHYSICIAN DATE OF DATE OF EXAM/TIME [...] 23, 2020 5:41pm Floyd Cain MD completed [facility] [address] [place] [id number] [phone] NAME SEX PT STATUS ACCOUNT NUMBER [facility] [id number] ORDERING PHYSICIAN LOCATION MEDICAL RECORD NO. Kyaw YOUNG [facility] [id number] ATTENDING PHYSICIAN DATE OF DATE OF EXAM/TIME Tara Osborne NP 1940 01/23/201647 TYPE / EXAM Xray Chest One View [...] Trans Dt/Tm: Trans by: DT Prt Dt/Tm: [id number]: Total DLP = 0.00 mGy-cm Fluoroscopy Time (in secs): Health Concerns Health Concerns may be documented in an alternate section. Advance Directives Advance Directive Response Recorded Date/Time Advanced Directive No Ju 2019 3:03pm [facility]OLST No December 06 0 [...] Complaint and Reason for Visit Chief Complaint N18.9,E11.69,E66.9,I 48.2 E11.69,E66.9,I48.2,N40.1,N18.9,I10 Z79.01 Office visit C61 PROSTATE CANCER C61 MALIGNANT [...] I48.91 I48.91 Rash I48.91 I48.91 Telemed Visit Reason for Visit Atrial fibrillation Atrial fibrillation Congestive heart failure (CHF) Weakness Laceration of ear, external, left, complicated Hypertension, essential, benign Chronic atrial fibrillation Itch of skin Atrial fibrillation Itch of skin Encounters Encounter Location(s) Ar rival/Admit Date Discharge/Depart Date Provider(s) Registered Referred [facility] June 23, 2019 6:45am [facility] 7:00am [facility] July 05, 2019 7:45am Devon Gee MD Departed Physician/Provider Office Visit [facility] July 19, 2019 10:09am July 19, 2019 10:53am Devon [facility]ee MD [facility] 23, 2019 8:05am Tray Vazquez Registered Referred [facility] July 28, 2019 10:47am Tray Vazquez Registered Referred [facility] July 30, 2019 1:00pm Tray Vazquez [facility] August 03, 2019 9:54am Devon Gee MD [facility] August 05, 2019 8:34am Julianlorrie Herrera , DO [facility] 09, 2019 8:15am Kaz Cid MD Departed Physician/Provider Office Visit [facility] August 13, 2019 1:10pm August 13, 2019 2:08pm Julian Pat sole , DO Registered Referred [facility] August 13, 2019 2:11pm Julian Herrera , DO Registered Referred [facility] August 31, 2019 7:00am Julian Herrera , DO Registered Referred [facility] September 02, 2019 11:16am Julian Herrera , DO Registered Outpatient [facility] September 02, 2019 5:06pm Julian Herrera , DO Registered Referred [facility] September 14, 2019 7:00am Julian Herrera , DO Departed Physician/Provider Office Visit [facility] September 14, 2019 10:17am September 14, 2019 11:39am Julian Herrera , DO Registered Referred [facility] October 12, 2019 7:10am Julian Herrera , DO Registered Outpatient [facility] October 12, 2019 11:44am Julian Herrera DO Registered Referred [facility] October 19, 2019 6:00am Tono Guardado DO Registered Outpatient [facility] October 19, 2019 2:59pm Tono Guardado DO Departed Physician/Provider Office Visit [facility] October 20, 2019 8:48am October 20, 2019 9:50am Lillian Friedman Registered Referred [facility] October 20, 2019 9:54am Tono Guardado DO Registered Referred [facility] November 09, 2019 5:55am Tray Vazquez Registered Outpatient [facility] November 09, 2019 8:42am Tono Guardado DO Registered Referred [facility] November 23, 2019 6:05am Kaz Cid MD Registered Referred [facility] November 26, 2019 8:30am Kaz Cid MD Registered Referred [facility] December 01, 2019 8:00am Kaz Cid MD Registered Referred [facility] December 06, 2019 8:00am Kaz Cid MD Departed Physician/Provider Office Visit [facility] December 09, 2019 7:25am December 09, 2019 8:08am Tara Osborne Departed Emergency [facility] December 09, 2019 8:11am December 09, 2019 10:40am null Registered Referred [facility] December 13, 2019 7:00am K athy Dylon Registered Referred [facility] December 15, 2019 8:00am K athy Dylon Registered Referred [facility] December 22, 2019 7:45am Tara Dylon Registered Referred [facility] December 23, 2019 8:00am Tara Dylon Registered Referred [facility] December 24, 2019 8:00am Tara Dylon Registered Referred [facility] December 27, 2019 7:30am Kaz Cid MD Registered Referred [facility] December 30, 2019 8:27am Tara Dylon Registered Referred [facility] January 06, 2020 8:43am Tara Dylon Registered Referred [facility] January 07, 2020 8:18am [facility]ylon [facility] 14, 2020 6:00am Tara Dylon [facility] January 21, 2020 6:00am Anjana Lucio NP Departed Emergency [facility] January 23, 2020 3:00pm January 23, 2020 5:42pm null Departed Physician/Provider Office Visit [facility] January 25, 2020 1:12pm January 25, 2020 1:36pm Carlos desir DO [facility] February 10, 2020 9:02am Anjana Lucio NP Registered Outpatient [facility] February 14, 2020 12:46pm Anjana Lucio NP [facility] 18, 2020 11:08am Tara Osborne [facility] 28, 2020 6:28am Tara Osborne Departed Physician/Provider Office Visit [facility] March 08, 2020 8:26am March 08, 2020 9:28am Tono Guardado DO [facility] 08, 2020 9:25am Tara Osborne Departed Physician/Provider Office Visit [facility] March 17, 2020 2:08pm March 17, 2020 3:45pm Lillian Friedman Registered Referred [facility] March 31, 2020 6:00am Tono Guardado DO [facility] May 12, 2020 6:23am Tara Osborne Departed Physician/Provider Office Visit [facility] May 16, 2020 8:27am May 16, 2020 10:03am Tono Guardado DO Registered Referred [facility] May 23, 2020 8:54am Tara Osborne [facility] June 23, 2020 9:23am Tono Guardado DO Departed Physician/Provider Office Visit [facility] June 23, 2020 1:13pm June 23, 2020 2:54pm Tono Guardado DO Recent Diagnosis Onset Date [...] Event Date Not Given Reason Dose Number Industry Segment Specialist Lot Number Vaccine Information Statement (VIS) Deta il pneumococcal conjugate PCV Mayobe r 2016 zoster (shingles) vaccine, live, sc November 03, 2016 pneumococcal polysaccharide [id number] vaccine September 14, 2019 [id number] tetanus, diphtheria, acell pertussis 7yrs &up January 23, 2020 [id number] Mental Status Observation Response Lobo e Recorded Impairments Hearing/Auditory January 23, 2020 3:03pm Visual January 23, 2020 3:03pm Ambulation/transfer Ju 2019 3:03pm Medical Equipment No Medical Equipment Information available Insurance Providers Guarantor BR[employer]TON GOMEZ Address [address] [place] [address] Contact Info. Home Phone: Payer Policy Id Coverage Id Subscriber's Name Subscriber Id Effective Date Expiration Date [facility] [id number] BRITTON GOMEZ [id number] [facility] [id number] BRITTON GOMEZ [id number] 2011 [employer] [place] [id number] [employer]OMEZ [id number] 2011 MEDICARE [id number] BR[employer]TON [employer]OMEZ [id number] Self Pay Self N/A Plan of Treatment agrees to decrease warfarin schedule new dosage schedule is 2mg on Friday , friday, and the other four days will be 3mg repeat inr in about one week if condition worsens, then go to ER hydrocortisone prn f/u dermatolgist f/u anodizing line operator hydrocortisone as ordered if worsens, then go to ER and patient denies new foods, new soaps, new detergents, denies pets f/u ore buyer f/u anodizing line operator hydrocortisone prn itch hydrocortisone provides relief for about 3 hours if condition worsens, then go to ER inr is therapeutic between 2.5 - 3.5 continue current warfarin schedule repeat inr in about one week completed wellness exam repeat inr in about 2 week stable continue same dosage schedule inr in 2 weeks stable continue current medical treatment f/u well flow operator left abdomen, possible insect bite he does not recall any metal he thinks it might be the garage he agrees to lyme test he denies fever, he denies bulls eye rash trial of hydrocortisone cream f/u bulb tester if necessary to change to alternative calcitriol [...] ct Information Provider Address Tara Osborne Email: [email or web address] Phone: [phone] [facility] [address] Vlad Elizabeth MD Work Phone: [phone] [place] [address] L29.9 - Pruritus, unspecified May 16, 2020 Care [facility] [address], [address] [facility] [address] B07.9 - Viral wart, unspecified May 16, [...] 14, 2019 10:24am Respiratory rate 16 /min -September 14, 2019 10:24am Oxygen saturation by Pulse [...] 20, 2019 10:09am Respiratory rate 16 /min 12-October 20, 2019 10:09am Oxygen saturation by Pulse [...] 08, 2020 9:31am Respiratory rate 18 /min 12-24 March 08, 2020 9:31am Oxygen saturation by Pulse [...]
[2020-09-06] MEDS: NOREPINEPHRINE BITARTRATE 8 MG in D5W 492 ML IV SCH (20:08)
--- OUTSIDE RECORDS SUMMARY | 2020-09-06 20:08 | CCD ---
Author Author [facility] Organization [facility] Address Unknown Phone Unavailable Care Team Providers Care Floodplain Manager Name Role Phone JO-ANN HUDDLESTON MD Unavailable Unavailable JO-ANN HUDDLESTON MD Unavailable Unavailable JO-ANN HUDDLESTON MD Unavailable Unavailable JO-ANN HUDDLESTON MD Unavailable Unavailable JO-ANN HUDDLESTON MD Unavailable Unavailable JO-ANN HUDDLESTON MD Unavailable Unavailable JO-ANN HUDDLESTON MD Unavailable Unavailable JO-ANN HUDDLESTON MD Unavailable Unavailable JO-ANN HUDDLESTON MD Unavailable Unavailable JO-ANN HUDDLESTON MD Unavailable Unavailable JO-ANN HUDDLESTON MD Unavailable Unavailable JO-ANN HUDDLESTON MD Unavailable Unavailable JO-ANN HUDDLESTON MD Unavailable Unavailable JO-ANN HUDDLESTON MD Unavailable Unavailable JO-ANN HUDDLESTON MD Unavailable Unavailable JO-ANN HUDDLESTON MD Unavailable Unavailable JO-ANN HUDDLESTON MD Unavailable Unavailable JO-ANN HUDDLESTON MD Unavailable Unavailable JO-ANN HUDDLESTON MD Unavailable Unavailable JO-ANN HUDDLESTON MD Unavailable Unavailable JO-ANN HUDDLESTON MD Unavailable Unavailable JO-ANN HUDDLESTON MD Unavailable Unavailable JO-ANN HUDDLESTON MD Unavailable Unavailable JO-ANN HUDDLESTON MD Unavailable Unavailable JO-ANN HUDDLESOTN MD Unavailable Unavailable JO-ANN HUDDLESTON MD Unavailable Unavailable Symenow, Heavenly Vivien PA Unavailable Unavailable Symenow, Heavenly Vivien PA Unavailable Unavailable Symenow, Heavenly Vivien PA Unavailable Unavailable Symenow, Heavenly Vivien PA Unavailable Unavailable Symenow, Heavenly Vivien PA Unavailable Unavailable Symenow, Heavenly Vivien PA Unavailable Unavailable Symenow, Heavenly Vivien PA Unavailable Unavailable Symenow, Heavenly Vivien PA Unavailable Unavailable Symenow, Heavenly Vivien PA Unavailable Unavailable Symenow, Heavenly Vivien PA Unavailable Unavailable Symenow, Heavenly Vivien PA Unavailable Unavailable Symenow, Heavenly Vivien PA Unavailable Unavailable Symenow, Heavenly Vivien PA Unavailable Unavailable Symenow, Heavenly Vivien PA Unavailable Unavailable Symenow, Heavenly Vivien PA Unavailable Unavailable Symenow, Heavenly Vivien PA Unavailable Unavailable Symenow, Heavenly Vivien PA Unavailable Unavailable Symenow, Heavenly Vivien PA Unavailable Unavailable Symenow, Heavenly Vivien PA Unavailable Unavailable Symenow, Heavenly Vivien PA Unavailable Unavailable Symenow, Heavenly Vivien PA Unavailable Unavailable Symenow, Heavenly Vivien PA Unavailable Unavailable Symenow, Heavenly Vivien PA Unavailable Unavailable Symenow, Heavenly Vivien PA Unavailable Unavailable Symenow, Heavenly Vivien PA Unavailable Unavailable Symenow, Heavenly Vivien PA Unavailable Unavailable Symenow, Heavenly Vivien PA Unavailable Unavailable Symenow, Heavenly Vivien PA Unavailable Unavailable Symenow, Heavenly Vivien PA Unavailable Unavailable Symenow, Heavenly Vivien PA Unavailable Unavailable Symenow, Heavenly Vivien PA Unavailable Unavailable Symenow, Heavenly Vivien PA Unavailable Unavailable Symenow, Heavenly Vivien PA Unavailable Unavailable Symenow, Heavenly Vivien PA Unavailable Unavailable Symenow, Heavenly Vivien PA Unavailable Unavailable Symenow, Heavenly Vivien PA Unavailable Unavailable Riki RAMOS MD Unavailable Unavailable Riki RAMOS MD Unavailable Unavailable PARSHALL, A LORENA MD Unavailable Unavailable PARSHALL, A LORENA MD Unavailable Unavailable PARSHALL, A LORENA MD Unavailable Unavailable PARSHALL, A LORENA MD Unavailable Unavailable PARSHALL, A LORENA MD Unavailable Unavailable PARSHALL, A LORENA MD Unavailable Unavailable PARSHALL, A LORENA MD Unavailable Unavailable PARSHALL, A LORENA MD Unavailable Unavailable PARSHALL, A LORENA MD Unavailable Unavailable PARSHALL, A LORENA MD Unavailable Unavailable PARSHALL, A LORENA MD Unavailable Unavailable PARSHALL, A LORENA MD Unavailable Unavailable PARSHALL, A LORENA MD Unavailable Unavailable PARSHALL, A LORENA MD Unavailable Unavailable PARSHALL, A LORENA MD Unavailable Unavailable PARSHALL, A LORENA MD Unavailable Unavailable PARSHALL, A LORENA MD Unavailable Unavailable PARSHALL, A LORENA MD Unavailable Unavailable PARSHALL, A LORENA MD Unavailable Unavailable PARSHALL, A LORENA MD Unavailable Unavailable PARSHALL, A LORENA MD Unavailable Unavailable PARSHALL, A LORENA MD Unavailable Unavailable PARSHALL, A LORENA MD Unavailable Unavailable PARSHALL, A LORENA MD Unavailable Unavailable PARSHALL, A LORENA MD Unavailable Unavailable PARSHALL, A LORENA MD Unavailable Unavailable Herrera DO, Julian Unavailable Unavailable Herrera DO, Julian Unavailable Unavailable Herrera DO, Julian Unavailable Unavailable Herrera DO, Julian Unavailable Unavailable Herrera DO, Julian Unavailable Unavailable Elijah Mendez MD Unavailable Unavailable Elijah Mendez MD Unavailable Unavailable Elijah Mendez MD Unavailable Unavailable Elijah Mendez MD Unavailable Unavailable Elijah Mendez MD Unavailable Unavailable Elijah Mendez MD Unavailable Unavailable Elijah Mendez MD Unavailable Unavailable Elijah Mendez MD Unavailable Unavailable Elijah Mendez MD Unavailable Unavailable Elijah Mendez MD Unavailable Unavailable Elijah Mendez MD Unavailable Unavailable Yaquelin JEFFERSON MD Unavailable Unavailable Yaquelin JEFFERSON MD Unavailable Unavailable Yaquelin JEFFERSON MD Unavailable Unavailable Yaquelin JEFFERSON MD Unavailable Unavailable Yaquelin JEFFERSON MD Unavailable Unavailable Yaquelin JEFFERSON MD Unavailable Unavailable Yaquelin JEFFERSON MD Unavailable Unavailable Yaquelin JEFFERSON MD Unavailable Unavailable Yaquelin JEFFERSON MD Unavailable Unavailable Yaquelin JEFFERSON MD Unavailable Unavailable Yaquelin JEFFERSON MD Unavailable Unavailable Yaquelin JEFFERSON MD Unavailable Unavailable Yaquelin JEFFERSON MD Unavailable Unavailable Yaquelin JEFFERSON MD Unavailable Unavailable Yaquelin JEFFESRON MD Unavailable Unavailable Yaquelin JEFFERSON MD Unavailable Unavailable Yaquelin JEFFERSON MD Unavailable Unavailable Yaquelin JEFFERSON MD Unavailable Unavailable JEFFERSONYaquelin Oconnor MD Unavailable Unavailable JEFFERSONYaquelin MD Unavailable Unavailable Yaquelin JEFFERSON MD Unavailable Unavailable JEFFERSONYaquelin Oconnor MD Unavailable Unavailable JEFFERSONYaquelin Oconnor MD Unavailable Unavailable JEFFERSONYaquelin Oconnor MD Unavailable Unavailable JEFFERSONYaquelin Oconnor MD Unavailable Unavailable Yaquelin JEFFERSON MD Unavailable Unavailable Yaquelin JEFFERSON MD Unavailable Unavailable JEFFERSONYaquelin Oconnor MD Unavailable Unavailable Yaquelin JEFFERSON MD Unavailable Unavailable JEFFERSONYaquelin Oconnor MD Unavailable Unavailable Yaquelin JEFFERSON MD Unavailable Unavailable Yaquelin JEFFERSON MD Unavailable Unavailable JEFFERSONYaquelin Oconnor MD Unavailable Unavailable Yaquelin JEFFERSON MD Unavailable Unavailable JEFFERSONYaquelin Oconnor MD Unavailable Unavailable JEFFERSONYaquelin Oconnor MD Unavailable Unavailable Yaquelin JEFFERSON MD Unavailable Unavailable Yaquelin JEFFERSON MD Unavailable Unavailable Yaquelin JEFFERSON MD Unavailable Unavailable Yaquelin JEFFERSON MD Unavailable Unavailable Yaquelin JEFFERSON MD Unavailable Unavailable Yaquelin JEFFERSON MD Unavailable Unavailable Yaquelin JEFFERSON MD Unavailable Unavailable Yaquelin JEFFERSON MD Unavailable Unavailable Yaquelin JEFFERSON MD Unavailable Unavailable Yaquelin JEFFERSON MD Unavailable Unavailable Yaquelin JEFFERSON MD Unavailable Unavailable Yaquelin JEFFERSON MD Unavailable Unavailable Yaquelin JEFFERSON MD Unavailable Unavailable Yaquelin JEFFERSON MD Unavailable Unavailable Yaquelin JEFFERSON MD Unavailable Unavailable Yaquelin JEFFERSON MD Unavailable Unavailable Yaquelin JEFFERSON MD Unavailable Unavailable Yaquelin JEFFERSON MD Unavailable Unavailable Yaquelin JEFFERSON MD Unavailable Unavailable Yaquelin JEFFERSON MD Unavailable Unavailable Yaquelin JEFFERSON MD Unavailable Unavailable Shekhar Louis MD Unavailable Unavailable Dylan, [place] HOME THEATER EXPERIENCE EXPERT Unavailable Unavailable Dylan, [place] HOME THEATER EXPERIENCE EXPERT Unavailable Unavailable Dylan, [place] HOME THEATER EXPERIENCE EXPERT Unavailable Unavailable Dylan, [place] HOME THEATER EXPERIENCE EXPERT Unavailable Unavailable Dylan, [place] HOME THEATER EXPERIENCE EXPERT Unavailable Unavailable Lillian Cid MD Unavailable Unavailable Lillian Cid MD Unavailable Unavailable Lillian Cid MD Unavailable Unavailable Lillian Cid MD Unavailable Unavailable Lillian Cid MD Unavailable Unavailable Lillian Cid MD Unavailable Unavailable Lillian Cid MD Unavailable Unavailable Lillian Cid MD Unavailable Unavailable Lillian Cid MD Unavailable Unavailable Lillian Cid MD Unavailable Unavailable Lillian Cid MD Unavailable Unavailable Lillian Cid MD Unavailable Unavailable Lillian Cid MD Unavailable Unavailable Lillian Cid MD Unavailable Unavailable Lillian Cid MD Unavailable Unavailable Lillian Cid MD Unavailable Unavailable Lillian Cid MD Unavailable Unavailable Lillian Cid MD Unavailable Unavailable Lillian Cid MD Unavailable Unavailable Lillian Cid MD Unavailable Unavailable Lillian Cid MD Unavailable Unavailable Lillian Cid MD Unavailable Unavailable Lillian Cid MD Unavailable Unavailable Lillian Cid MD Unavailable Unavailable Lillian Cid MD Unavailable Unavailable Lillian Cid MD Unavailable Unavailable Lillian Cid MD Unavailable Unavailable Lillian Cid MD Unavailable Unavailable Lillian Cid MD Unavailable Unavailable Lillian Cid MD Unavailable Unavailable Lillian Cid MD Unavailable Unavailable Lillian Cid MD Unavailable Unavailable Lillian Cid MD Unavailable Unavailable Lillian Cid MD Unavailable Unavailable Lillian Cid MD Unavailable Unavailable Lillian Cid MD Unavailable Unavailable Lillian Cid MD Unavailable Unavailable Lillian Cid MD Unavailable Unavailable Lillian Cid MD Unavailable Unavailable Lillian Cid MD Unavailable Unavailable Lillian Cid MD Unavailable Unavailable Lillian Cid MD Unavailable Unavailable Lillian Cid MD Unavailable Unavailable Lillian Cid MD Unavailable Unavailable Lillian Cid MD Unavailable Unavailable Lillian Cid MD Unavailable Unavailable Lillian Cid MD Unavailable Unavailable Lillian Cid MD Unavailable Unavailable Lillian Cid MD Unavailable Unavailable Lillian Cid MD Unavailable Unavailable Lillian Cid MD Unavailable Unavailable Lillian Cid MD Unavailable Unavailable Lillian Cid MD Unavailable Unavailable Lillian Cid MD Unavailable Unavailable Lillian Cid MD Unavailable Unavailable Lillian Cid MD Unavailable Unavailable Lillian Cid MD Unavailable Unavailable Lillian Cid MD Unavailable Unavailable Lillian Cid MD Unavailable Unavailable Lillian Cid MD Unavailable Unavailable Lillian Cid MD Unavailable Unavailable Lillian Cid MD Unavailable Unavailable Lillian Cid MD Unavailable Unavailable Lillian Cid MD Unavailable Unavailable Lillian Cid MD Unavailable Unavailable Lillian Cid MD Unavailable Unavailable Lillian Cid MD Unavailable Unavailable Lillian Cid MD Unavailable Unavailable Lillian Cid MD Unavailable Unavailable Lillian Cid MD Unavailable Unavailable Lillian Cid MD Unavailable Unavailable Lillian Cid MD Unavailable Unavailable Lillian Cid MD Unavailable Unavailable Lillian Cid MD Unavailable Unavailable Lillian Cid MD Unavailable Unavailable Lillian Cid MD Unavailable Unavailable Lillian Cid MD Unavailable Unavailable Lillian Cid MD Unavailable Unavailable Lillian Cid MD Unavailable Unavailable Lillian Cid MD Unavailable Unavailable Lillian Cid MD Unavailable Unavailable Lillian Cid MD Unavailable Unavailable Lillian Cid MD Unavailable Unavailable Lillian Cid MD Unavailable Unavailable Lillian Cid MD Unavailable Unavailable Lillian Cid MD Unavailable Unavailable Lillian Cid MD Unavailable Unavailable Lillian Cid MD Unavailable Unavailable Lillian Cid MD Unavailable Unavailable KOPIDLANSKY, Ros OLVERA POLITICAL REPORTER-HOME THEATER EXPERIENCE EXPERT-C Unavailable Unava ilable KOPIDLANSKY, Ros OLVERA APRN-HOME THEATER EXPERIENCE EXPERT-C Unavailable Unava ilable KOPIDLANSKY, Ros OLVERA APRN-HOME THEATER EXPERIENCE EXPERT-C Unavailable Unava ilable KOPIDLANSKY, Ros OLVERA APRN-HOME THEATER EXPERIENCE EXPERT-C Unavailable Unava ilable KOPIDLANSKY, Ros OLVERA APRN-HOME THEATER EXPERIENCE EXPERT-C Unavailable Unava ilable KOPIDLANSKY, Ros OLVERA APRN-HOME THEATER EXPERIENCE EXPERT-C Unavailable Unava ilable KOPIDLANSKY, Ros OLVERA APRN-HOME THEATER EXPERIENCE EXPERT-C Unavailable Unava ilable KOPIDLANSKY, Ros OLVERA APRN-HOME THEATER EXPERIENCE EXPERT-C Unavailable Unava ilable KOPIDLANSKY, Ros OLVERA APRN-HOME THEATER EXPERIENCE EXPERT-C Unavailable Unava ilable KOPIDLANSKY, Ros OLVERA APRN-HOME THEATER EXPERIENCE EXPERT-C Unavailable Unava ilable KOPIDLANSKY, Ros OLVERA APRN-HOME THEATER EXPERIENCE EXPERT-C Unavailable Unava ilable KOPIDLANSKY, Ros OLVERA APRN-HOME THEATER EXPERIENCE EXPERT-C Unavailable Unava ilable KOPIDLANSKY, Ros OLVERA APRN-HOME THEATER EXPERIENCE EXPERT-C Unavailable Unava ilable KOPIDLANSKY, Ros OLVERA APRN-HOME THEATER EXPERIENCE EXPERT-C Unavailable Unava ilable KOPIDLANSKY, Ros OLVERA APRN-HOME THEATER EXPERIENCE EXPERT-C Unavailable Unava ilable KOPIDLANSKY, Ros OLVERA APRN-HOME THEATER EXPERIENCE EXPERT-C Unavailable Unava ilable KOPIDLANSKY, Ros OLVERA APRN-HOME THEATER EXPERIENCE EXPERT-C Unavailable Unava ilable KOPIDLANSKY, Ros OLVERA APRN-HOME THEATER EXPERIENCE EXPERT-C Unavailable Unava ilable KOPIDLANSKY, Ros OLVERA APRN-HOME THEATER EXPERIENCE EXPERT-C Unavailable Unava ilable KOPIDLANSKY, Ros OLVERA APRN-HOME THEATER EXPERIENCE EXPERT-C Unavailable Unava ilable KOPIDLANSKY, Ros OLVERA APRN-HOME THEATER EXPERIENCE EXPERT-C Unavailable Unava ilable KOPIDLANSKY, Ros OLVERA APRN-HOME THEATER EXPERIENCE EXPERT-C Unavailable Unava ilable BLOCK, Lillian PHILLIPS MD Unavailable Unavailable BLOCK, Lillian PHILLIPS MD Unavailable Unavailable BLOCK, Lillian PHILLIPS MD Unavailable Unavailable BLOCK, Lillian PHILLIPS MD Unavailable Unavailable BLOCK, Lillian PHILLIPS MD Unavailable Unavailable BLOCK, Lillian PHILLIPS MD Unavailable Unavailable BLOCK, Lillian PHILLIPS MD Unavailable Unavailable BLOCK, Lillian PHILLIPS MD Unavailable Unavailable BLOCK, Lillian PHILLIPS MD Unavailable Unavailable BLOCK, Lillian PHILLIPS MD Unavailable Unavailable BLOCK, Lillian PHILLIPS MD Unavailable Unavailable BLOCK, Lillian PHILLIPS MD Unavailable Unavailable BLOCK, Lillian PHILLIPS MD Unavailable Unavailable BLOCK, Lillian PHILLIPS MD Unavailable Unavailable BLOCK, Lillian PHILLIPS MD Unavailable Unavailable BLOCK, Lillian PHILLIPS MD Unavailable Unavailable BLOCK, Lillian PHILLIPS MD Unavailable Unavailable BLOCK, Lillian PHILLIPS MD Unavailable Unavailable BLOCK, Lillian PHILLIPS MD Unavailable Unavailable BLOCK, Lillian PHILLIPS MD Unavailable Unavailable BLOCK, Lillian PHILLIPS MD Unavailable Unavailable BLOCK, Lillian PHILLIPS MD Unavailable Unavailable BLOCK, Lillian PHILLIPS MD Unavailable Unavailable BLOCK, Lillian PHILLIPS MD Unavailable Unavailable BLOCK, Lillian PHILLIPS MD Unavailable Unavailable BLOCK, Lillian PHILLIPS MD Unavailable Unavailable BLOCK, Lillian PHILLIPS MD Unavailable Unavailable BLOCK, Lillian PHILLIPS MD Unavailable Unavailable BLOCK, Lillian PHILLIPS MD Unavailable Unavailable BLOCK, Lillian PHILLIPS MD Unavailable Unavailable BLOCK, Lillian PHILLIPS MD Unavailable Unavailable BLOCK, Lillian PHILLIPS MD Unavailable Unavailable BLOCK, Lillian PHILLIPS MD Unavailable Unavailable BLOCK, Lillian PHILLIPS MD Unavailable Unavailable BLOCK, Lillian PHILLIPS MD Unavailable Unavailable BLOCK, Lillian PHILLIPS MD Unavailable Unavailable BLOCK, Lillian PHILLIPS MD Unavailable Unavailable BLOCK, Lillian PHILLIPS MD Unavailable Unavailable BLOCK, Lillian PHILLIPS MD Unavailable Unavailable BLOCK, Lillian PHILLIPS MD Unavailable Unavailable BLOCK, Lillian PHILLIPS MD Unavailable Unavailable BLOCK, Lillian PHILLIPS MD Unavailable Unavailable BLOCK, Lillian PHILLIPS MD Unavailable Unavailable BLOCK, Lillian PHILLIPS MD Unavailable Unavailable BLOCK, Lillian PHILLIPS MD Unavailable Unavailable BLOCK, Lillian PHILLIPS MD Unavailable Unavailable BLOCK, Lillian PHILLIPS MD Unavailable Unavailable BLOCK, Lillian PHILLIPS MD Unavailable Unavailable BLOCK, Lillian PHILLIPS MD Unavailable Unavailable BLOCK, Lillian PHILLIPS MD Unavailable Unavailable BLOCK, Lillian PHILLIPS MD Unavailable Unavailable BLOCK, Lillian PHILLIPS MD Unavailable Unavailable BLOCK, Lillian PHILLIPS MD Unavailable Unavailable BLOCK, Lillian PHILLIPS MD Unavailable Unavailable BLOCK, Lillian PHILLIPS MD Unavailable Unavailable BLOCK, Lillian PHILLIPS MD Unavailable Unavailable BLOCK, Lillian PHILLIPS MD Unavailable Unavailable BLOCK, Lillian PHILLIPS MD Unavailable Unavailable BLOCK, Lillian PHILLIPS MD Unavailable Unavailable DiBella, Fred Gonzalez MD Unavailable Unavailable DiBella, Fred Gonzalez MD Unavailable Unavailable DiBella, Fred Gonzalez MD Unavailable Unavailable DiBella, Fred Gonzalez MD Unavailable Unavailable DiBella, Fred Gonzalez MD Unavailable Unavailable DiBella, Fred Gonzalez MD Unavailable Unavailable BLOCK, Lillian PHILLIPS MD Unavailable Unavailable BLOCK, Lillian PHILLIPS MD Unavailable Unavailable BLOCK, Lillian PHILLIPS MD Unavailable Unavailable BLOCK, Lillian PHILLIPS MD Unavailable Unavailable BLOCK, Lillian PHILLIPS MD Unavailable Unavailable BLOCK, Lillian PHILLIPS MD Unavailable Unavailable BLOCK, Lillian PHILLIPS MD Unavailable Unavailable BLOCK, Lillian PHILLIPS MD Unavailable Unavailable BLOCK, Lillian PHILLIPS MD Unavailable Unavailable BLOCK, Lillian PHILLIPS MD Unavailable Unavailable BLOCK, Lillian PHILLIPS MD Unavailable Unavailable BLOCK, Lillian PHILLIPS MD Unavailable Unavailable BLOCK, Lillian PHILLIPS MD Unavailable Unavailable BLOCK, Lillian PHILLIPS MD Unavailable Unavailable BLOCK, Lillian PHILLIPS MD Unavailable Unavailable BLOCK, Lillian PHILLIPS MD Unavailable Unavailable BLOCK, Lillian PHILLIPS MD Unavailable Unavailable BLOCK, Lillian PHILLIPS MD Unavailable Unavailable BLOCK, Lillian PHILLIPS MD Unavailable Unavailable BLOCK, Lillian PHILLIPS MD Unavailable Unavailable BLOCK, Lillian PHILLIPS MD Unavailable Unavailable BLOCK, Lillian PHILLIPS MD Unavailable Unavailable BLOCK, Lillian PHILLIPS MD Unavailable Unavailable BLOCK, Lillian PHILLIPS MD Unavailable Unavailable BLOCK, Lillian PHILLIPS MD Unavailable Unavailable BLOCK, Lillian PHILLIPS MD Unavailable Unavailable BLOCK, Lillian PHILLIPS MD Unavailable Unavailable BLOCK, Lillian PHILLIPS MD Unavailable Unavailable BLOCK, Lillian PHILLIPS MD Unavailable Unavailable BLOCK, Lillian PHILLIPS MD Unavailable Unavailable BLOCK, Lillian PHILLIPS MD Unavailable Unavailable BLOCK, Lillian PHILLIPS MD Unavailable Unavailable BLOCK, Lillian PHILLIPS MD Unavailable Unavailable BLOCK, Lillian PHILLIPS MD Unavailable Unavailable BLOCK, Lillian PHILLIPS MD Unavailable Unavailable BLOCK, Lillian PHILLIPS MD Unavailable Unavailable BLOCK, Lillian PHILLIPS MD Unavailable Unavailable BLOCK, Lillian PHILLIPS MD Unavailable Unavailable BLOCK, Lillian PHILLIPS MD Unavailable Unavailable BLOCK, Lillian PHILLIPS MD Unavailable Unavailable BLOCK, Lillian PHILLIPS MD Unavailable Unavailable BLOCK, Lillian PHILLIPS MD Unavailable Unavailable BLOCK, Lillian PHILLIPS MD Unavailable Unavailable BLOCK, Lillian PHILLIPS MD Unavailable Unavailable BLOCK, Lillian PHILLIPS MD Unavailable Unavailable BLOCK, Lillian PHILLIPS MD Unavailable Unavailable BLOCK, Lillian PHILLIPS MD Unavailable Unavailable BLOCK, Lillian PHILLIPS MD Unavailable Unavailable BLOCK, Lillian PHILLIPS MD Unavailable Unavailable BLOCK, Lillian PHILLIPS MD Unavailable Unavailable BLOCK, Lillian PHILLIPS MD Unavailable Unavailable BLOCK, Lillian PHILLIPS MD Unavailable Unavailable BLOCK, Lillian PHILILPS MD Unavailable Unavailable BLOCK, Lillian PHILLIPS MD Unavailable Unavailable BLOCK, Lillian PHILLIPS MD Unavailable Unavailable BLOCK, Lillian PHILLIPS MD Unavailable Unavailable BLOCK, Lillian PHILLIPS MD Unavailable Unavailable BLOCK, Lillian PHILLIPS MD Unavailable Unavailable BLOCK, Lillian PHILLIPS MD Unavailable Unavailable Imtiaz ([place]) Norma SINGER Unavailable Unavailable ALETHA, M JEFFERSON MD Unavailable Unavailable ALETHA, M JEFFERSON MD Unavailable Unavailable ALETHA, M JEFFERSON MD Unavailable Unavailable ALETHA, M JEFFERSON MD Unavailable Unavailable ALETHA, M JEFFERSON MD Unavailable Unavailable ALETHA, M JEFFERSON MD Unavailable Unavailable ALETHA, M JEFFERSON MD Unavailable Unavailable ALETHA, M JEFFERSON MD Unavailable Unavailable ALETHA, M JEFFERSON MD Unavailable Unavailable ALETHA, M JEFFERSON MD Unavailable Unavailable ALETHA, M JEFFERSON MD Unavailable Unavailable ALETHA, M JEFFERSON MD Unavailable Unavailable ALETHA, M JEFFERSON MD Unavailable Unavailable ALETHA, M JEFFERSON MD Unavailable Unavailable ALETHA, M JEFFERSON MD Unavailable Unavailable ALETHA, M JEFFERSON MD Unavailable Unavailable ALETHA, M JEFFERSON MD Unavailable Unavailable ALETHA, M JEFFERSON MD Unavailable Unavailable ALETHA, M JEFFERSON MD Unavailable Unavailable ALETHA, M JEFFERSON MD Unavailable Unavailable Evan De Oliveira MD Unavailable Unavailable Dylon, H Tara REQUIREMENTS MANAGER Unavailable Unavailable Dylon, H Tara REQUIREMENTS MANAGER Unavailable Unavailable Dylon, H Tara REQUIREMENTS MANAGER Unavailable Unavailable Dylon, H Tara REQUIREMENTS MANAGER Unavailable Unavailable Dylon, H Tara REQUIREMENTS MANAGER Unavailable Unavailable Dylon, H Tara REQUIREMENTS MANAGER Unavailable Unavailable Dylon, H Tara REQUIREMENTS MANAGER Unavailable Unavailable Dylon, H Tara REQUIREMENTS MANAGER Unavailable Unavailable Dylon, H Tara REQUIREMENTS MANAGER Unavailable Unavailable Dylon, H Tara REQUIREMENTS MANAGER Unavailable Unavailable Dylon, H Tara REQUIREMENTS MANAGER Unavailable Unavailable Dylon, H Tara REQUIREMENTS MANAGER Unavailable Unavailable Dylon, H Tara REQUIREMENTS MANAGER Unavailable Unavailable Dylon, H Tara REQUIREMENTS MANAGER Unavailable Unavailable Dylon, H Tara REQUIREMENTS MANAGER Unavailable Unavailable Dylon, H Tara REQUIREMENTS MANAGER Unavailable Unavailable Dylon, H Tara REQUIREMENTS MANAGER Unavailable Unavailable Dylon, H Tara REQUIREMENTS MANAGER Unavailable Unavailable Dylon, H Tara REQUIREMENTS MANAGER Unavailable Unavailable Dylon, H Tara REQUIREMENTS MANAGER Unavailable Unavailable Dylon, H Tara REQUIREMENTS MANAGER Unavailable Unavailable Dylon, H Tara REQUIREMENTS MANAGER Unavailable Unavailable Dylon, H Tara REQUIREMENTS MANAGER Unavailable Unavailable Dylon, H Tara REQUIREMENTS MANAGER Unavailable Unavailable Dylon, H Tara REQUIREMENTS MANAGER Unavailable Unavailable Dylon, H Tara REQUIREMENTS MANAGER Unavailable Unavailable Dylon, H Tara REQUIREMENTS MANAGER Unavailable Unavailable Dylon, H Tara REQUIREMENTS MANAGER Unavailable Unavailable Dylon, H Tara REQUIREMENTS MANAGER Unavailable Unavailable Dylon, H Tara REQUIREMENTS MANAGER Unavailable Unavailable Dylon, H Tara REQUIREMENTS MANAGER Unavailable Unavailable Dylon, H Tara REQUIREMENTS MANAGER Unavailable Unavailable Dylon, H Tara REQUIREMENTS MANAGER Unavailable Unavailable Dylon, H Taar REQUIREMENTS MANAGER Unavailable Unavailable Dylon, H Tara REQUIREMENTS MANAGER Unavailable Unavailable Dylon, H Tara REQUIREMENTS MANAGER Unavailable Unavailable Dylon, H Tara REQUIREMENTS MANAGER Unavailable Unavailable Dylon, H Tara REQUIREMENTS MANAGER Unavailable Unavailable Dylon, H Tara REQUIREMENTS MANAGER Unavailable Unavailable Dylon, H Tara REQUIREMENTS MANAGER Unavailable Unavailable Dylon, H Tara REQUIREMENTS MANAGER Unavailable Unavailable Dylon, H Tara REQUIREMENTS MANAGER Unavailable Unavailable Dylon, H Tara REQUIREMENTS MANAGER Unavailable Unavailable Dylon, H Tara REQUIREMENTS MANAGER Unavailable Unavailable Dylon, H Tara REQUIREMENTS MANAGER Unavailable Unavailable Dylon, H Tara REQUIREMENTS MANAGER Unavailable Unavailable Dylon, H Tara REQUIREMENTS MANAGER Unavailable Unavailable Dylon, H Tara REQUIREMENTS MANAGER Unavailable Unavailable Dylon, H Tara REQUIREMENTS MANAGER Unavailable Unavailable Dylon, H Tara REQUIREMENTS MANAGER Unavailable Unavailable Dylon, H Tara REQUIREMENTS MANAGER Unavailable Unavailable Dylon, H Tara REQUIREMENTS MANAGER Unavailable Unavailable Dylon, H Tara REQUIREMENTS MANAGER Unavailable Unavailable Dylon, H Tara REQUIREMENTS MANAGER Unavailable Unavailable Dylon, H Tara REQUIREMENTS MANAGER Unavailable Unavailable Dylon, H Tara REQUIREMENTS MANAGER Unavailable Unavailable Dylon, H Tara REQUIREMENTS MANAGER Unavailable Unavailable Root, Bal Osorio MD Unavailable Unavailable Root, Bal Osorio MD Unavailable Unavailable Root, Bal Osorio MD Unavailable Unavailable Root, Bal Osorio MD Unavailable Unavailable Root, Bal Osorio MD Unavailable Unavailable Root, Bal Osorio MD Unavailable Unavailable Root, Bal Osorio MD Unavailable Unavailable Root, Bal Osorio MD Unavailable Unavailable Root, Bal Osorio MD Unavailable Unavailable Root, Bal Osorio MD Unavailable Unavailable Root, Bal Osorio MD Unavailable Unavailable Root, Bal Osorio MD Unavailable Unavailable Root, Bal Osorio MD Unavailable Unavailable Root, Bal Osorio MD Unavailable Unavailable Root, Bal Osorio MD Unavailable Unavailable Root, Bal Osorio MD Unavailable Unavailable Root, Bal Osorio MD Unavailable Unavailable Root, Bal Osorio MD Unavailable Unavailable Root, Bal Osorio MD Unavailable Unavailable Root, Bal Osorio MD Unavailable Unavailable Root, Bal Osorio MD Unavailable Unavailable Root, Bal Osorio MD Unavailable Unavailable Root, Bal Osorio MD Unavailable Unavailable Root, Bal Osorio MD Unavailable Unavailable Root, Bal Osorio MD Unavailable Unavailable Root, Bal Osorio MD Unavailable Unavailable Root, Bal Osorio MD Unavailable Unavailable Root, Bal Osorio MD Unavailable Unavailable Root, Bal Osorio MD Unavailable Unavailable Root, Bal Osorio MD Unavailable Unavailable Root, Bal Osorio MD Unavailable Unavailable Root, Bal Osorio MD Unavailable Unavailable Root, Bal Osorio MD Unavailable Unavailable Root, Bal Osorio MD Unavailable Unavailable Root, Bal Osorio MD Unavailable Unavailable Root, Bal Osorio MD Unavailable Unavailable Root, Bal Osorio MD Unavailable Unavailable Root, Bal Osorio MD Unavailable Unavailable Root, Bal Osorio MD Unavailable Unavailable Root, Bal Osorio MD Unavailable Unavailable Root, Bal Osorio MD Unavailable Unavailable Root, Bal Osorio MD Unavailable Unavailable Root, Bal Osorio MD Unavailable Unavailable Root, Bal Osorio MD Unavailable Unavailable Root, Bal Osorio MD Unavailable Unavailable Root, Bal Osorio MD Unavailable Unavailable Root, Bal Osorio MD Unavailable Unavailable Root, Bal Osorio MD Unavailable Unavailable Root, Bal Osorio MD Unavailable Unavailable Root, T Devon SINGER Unavailable Unavailable Root, T Devon SINGER Unavailable Unavailable Root, T Devon SINGER Unavailable Unavailable Root, T Devon SINGER Unavailable Unavailable Root, Bal Osorio MD Unavailable Unavailable Root, Bal Osorio MD Unavailable Unavailable Root, Bal Osorio MD Unavailable Unavailable Root, Bal Osorio MD Unavailable Unavailable Root, Bal Osorio MD Unavailable Unavailable Root, Bal Osorio MD Unavailable Unavailable Root, Bal Osorio MD Unavailable Unavailable Root, Bal Osorio MD Unavailable Unavailable Root, Bal Osorio MD Unavailable Unavailable Root, Bal Osorio MD Unavailable Unavailable Root, Bal Osorio MD Unavailable Unavailable Root, Bal Osorio MD Unavailable Unavailable Root, Bal Osorio MD Unavailable Unavailable Root, Bal Osorio MD Unavailable Unavailable Root, Bal Osorio MD Unavailable Unavailable Root, Bal Osorio MD Unavailable Unavailable Carlos Drummond DO Unavailable Unavailable CECILIA, MAYURI SINGER Unavailable Unavailable CECILIA, MAYURI MD Unavailable Unavailable CECILIA, MAYURI MD Unavailable Unavailable CECILIA, MAYURI MD Unavailable Unavailable CECILIA, MAYURI SINGER Unavailable Unavailable CECILIA, MAYURI MD Unavailable Unavailable CECILIA, MAYURI MD Unavailable Unavailable CECILIA, MAYURI MD Unavailable Unavailable CECILIA, MAYURI MD Unavailable Unavailable CECILIA, MAYURI SINGER Unavailable Unavailable CECILIA, MAYURI MD Unavailable Unavailable CECILIA, MAYURI MD Unavailable Unavailable CECILIA, MAYURI SINGER Unavailable Unavailable CECILIA, MAYURI SINGER Unavailable Unavailable CECILIA, MAYURI SINGER Unavailable Unavailable CECILIAMAYURI MD Unavailable Unavailable CECILIA, MAYURI MD Unavailable Unavailable CECILIA, MAYURI MD Unavailable Unavailable CECILIA, MAYURI MD Unavailable Unavailable CECILIA, MAYURI MD Unavailable Unavailable CECILIA, MAYURI MD Unavailable Unavailable CECILIA, MAYURI MD Unavailable Unavailable CECILIA, MAYURI MD Unavailable Unavailable CECILIA, MAYURI MD Unavailable Unavailable CECILIA, MAYURI MD Unavailable Unavailable CECILIA, MAYURI MD Unavailable Unavailable CECILIA, MAYURI MD Unavailable Unavailable CECILIA, MAYURI MD Unavailable Unavailable CECILIA, MAYURI MD Unavailable Unavailable CECILIA, MAYURI MD Unavailable Unavailable CECILIA, MAYURI MD Unavailable Unavailable CECILIA, MAYURI MD Unavailable Unavailable CECILIA, MAYURI MD Unavailable Unavailable CECILIA, MAYURI MD Unavailable Unavailable CECILIA, MAYURI MD Unavailable Unavailable CECILIA, MAYURI MD Unavailable Unavailable CECILIA, MAYURI MD Unavailable Unavailable CECILIA, MAYURI MD Unavailable Unavailable CECILIA, MAYURI MD Unavailable Unavailable CECILIA, MAYURI MD Unavailable Unavailable CECILIA, MAYURI MD Unavailable Unavailable CECILIA, MAYURI MD Unavailable Unavailable CECILIA, MAYURI MD Unavailable Unavailable CECILIA, MAYURI MD Unavailable Unavailable CECILIA, MAYURI MD Unavailable Unavailable CECILIA, MAYURI MD Unavailable Unavailable CECILIA, MAYURI MD Unavailable Unavailable CECILIA, MAYURI MD Unavailable Unavailable CECILIA, MAYURI MD Unavailable Unavailable CECILIA, MAYURI MD Unavailable Unavailable CECILIA, MAYURI MD Unavailable Unavailable CECILIA, MAYURI MD Unavailable Unavailable Re-disclosure Warning The records that you are about to access may contain information from federally-assisted alcohol or drug abuse programs. If such information is present, then the following federally mandated warning applies: This information has been disclosed to you from records protected by federal confidentiality rules (42 CFR part 2). The federal rules prohibit you from making any further disclosure of this information unless further disclosure is expressly permitted by the written consent of the person to whom it pertains or as otherwise permitted by 42 CFR part 2. A general authorization for the release of medical or other information is NOT sufficient for this purpose. The Federal rules restrict any use of the information to criminally investigate or prosecute any alcohol or drug abuse patient.The records that you are about to access may contain highly sensitive health information, the redisclosure of which is protected by Article 27-F of the [facility] Public Health law. If you continue you may have access to information: Regarding HIV / AIDS; Provided by facilities licensed or operated by the [facility] Office of Mental Health; or Provided by the [facility] Office for People With Developmental Disabilities. If such information is present, then the following [facility] mandated warning applies: This information has been disclosed to you from confidential records which are protected by state law. State law prohibits you from making any further disclosure of this information without the specific written consent of the person to whom it pertains, or as otherwise permitted by law. Any unauthorized further disclosure in violation of state law may result in a fine or snf sentence or both. A general authorization for the release of medical or other information is NOT sufficient authorization for further disc losure. Allergies and Adverse Reactions Type Description Substance Reaction Status Data Source(s ) Drug allergy No Known Drug Allergies No Known Drug Allergies [facility] Family History Family Member Name Family Member Gender Family Member Status Date o f Status Description Data Source(s) Unknown Condition [facility] Hospital Unknown Condition [facility] Unknown Condition [facility] Unknown Condition [facility] Unknown Condition [facility] Unknown Condition [facility] Unknown Condition [facility] Unknown Condition [facility] Unknown Condition [facility] Unknown Condition [facility] Unknown Condition [facility] Unknown Condition [facility] Unknown Condition [facility] Unknown Condition [facility] Unknown Condition [facility] Unknown Condition [facility] Encounters Encounter Providers Location Date Indications Data Source(s ) Emergency Attender: Justice Mendez MDAttender: Norma Snyder 09/06/2020 06:41:00 AM EST - 09/06/2020 06:43:00 PM EST WEAKNESS [facility] WEAKNESS Patient discharged. Outpatient Attender: MAYURI AMRTINEZeferrer: MAYURI GUARDADO MD 08/16/2020 09:35:00 AM EST [facility] Outpatient Attender: ALAN SAMPSON MD [place] 08/14/2020 12:40:00 PM EST [facility] Inpatient Attender: Shekhar Louis MD Attender: Carlos Galvin MDAdmitter: Shekhar Louis MD 08/09/2020 06:05:00 PM EST - 08/10/2020 07:48:00 PM EST CHEST PAIN [facility] CHEST PAIN Patient discharged. Outpatient Attender: Vivien NICOLE Main Office 08/01/2020 09:15:00 AM EST [facility] ([facility]) Outpatient Attender: JO-ANN HUDDLESTON MD 07/26/2020 10:55:00 AM EST [facility] Outpatient Attender: MAYURI MARTINEZeferrer: MAYURI GUARDADO MD 07/11/2020 10:41:00 AM EST - 07/11/2020 11:45:00 AM [facility] Outpatient Attender: MAYURI GUARDADO MD 07/07/2020 09:25:00 AM ES T I48.91 [facility] I48.91 Outpatient Attender: MAYURI GUARDADO MD 06/30/2020 12:00:00 AM [facility] Office Visit Attender: KARINE JEFFERSON MD Main Office 06/26/2020 02:28:0 0 PM EST [facility] ([facility]) Outpatient Attender: MAYURI MARTINEZeferrer: MAYURI GUARDADO MD 06/23/2020 01:13:00 PM EST [facility]: MAYURI GUARDADO MD 06/23/2020 09:23:00 AM ES T I48.91 [facility] I48.91 Office Visit Attender: KARINE JEFFERSON MD Main Office 05/23/2020 03:11:0 0 PM EDT [facility] ([facility]) Outpatient Attender: Tara Osborne NP 05/23/2020 09:54:00 AM E DT I48.91 [facility] I48.91 Outpatient Attender: MAYURI Fofanaerrer: MAYURI GUARDADO MD 05/16/2020 09:27:00 AM EDT - 05/16/2020 11:03:00 AM EDT [facility] Outpatient Attender: Tara Osborne NP 05/12/2020 07:23:00 AM E DT I48.91 [facility] I48.91 Outpatient Attender: ALAN Em/ [facility] 05/10/2020 02:00:00 PM EDT [facility] ([facility] Office Visit Attender: KARINE JEFFERSON MD Main Office 05/10/2020 08:11:0 0 AM EDT [facility] ([facility]) Office Visit Attender: KARINE JEFFERSON MD Main Office 03/31/2020 02:49:0 0 PM EDT [facility] ([facility]) Outpatient Attender: MAYURI GUARDADO MD 03/31/2020 12:00:00 AM ED T I48.91 [facility] I48.91 Outpatient Attender: MAYURI GUARDADO MDReferrer: MAYURI GUARDADO MD 03/17/2020 03:08:00 PM EDT - 03/17/2020 04:45:00 PM EDT [facility] Outpatient Attender: Tara Osborne NP 03/08/2020 10:25:00 AM E DT I48.91,W57.XXXA [facility] I48.91,W57.XXXA Outpatient Attender: MAYURI MARTINEZeferrer: MAYURI GUARDADO MD 03/08/2020 09:26:00 AM EDT - 03/08/2020 10:28:00 AM EDT [facility] Outpatient Attender: Tara Osborne NP 02/28/2020 07:28:00 AM E DT I48.91 [facility] I48.91 Office Visit Attender: KARINE JEFFERSON MD Main Office 02/21/2020 10:11:0 0 AM EDT [facility] ([facility]) Outpatient Attender: Tara Osborne NP 02/18/2020 12:00:00 AM E DT I48.91 [facility] I48.91 Outpatient Attender: ANJANA LUCIO APRN-HOME THEATER EXPERIENCE EXPERT-C 02/10/2020 10:02:00 AM EDT I48.91,Z95.2 [facility] I48.91,Z95.2 Outpatient Attender: ALAN Em/ [facility] 02/01/2020 01:20:00 PM EDT [facility] ([facility] Outpatient Attender: Vivien NICOLE Main Office 01/31/2020 09:45:00 AM EDT [facility] ([facility]) Outpatient Attender: Carlos Drummond DOReferrer: Tara Beebe 01/25/2020 02:12:00 PM EDT - 01/25/2020 02:36:00 PM EDT [facility] Emergency Attender: Kyaw Khan NPAttender: Evan De Oliveira MDConsultant: Evan De Oliveira MD 01/23/2020 04:00:00 PM EDT - 01/23/2020 06:42:00 PM EDT FALL,EAR LAC [facility] FALL,EAR LAC Patient discharged. Outpatient Attender: ANJANA LUCIO POLITICAL REPORTER-HOME THEATER EXPERIENCE EXPERT-C 01/21/2020 07:00:00 AM EDT I48.91,J06.9,Z95.2 [facility] I48.91,J06.9,Z95.2 Outpatient Attender: Tara Osborne NP 01/14/2020 07:00:00 AM E DT I48.91 [facility] I48.91 Office Visit Attender: KARINE JEFFERSON MD Main Office 01/12/2020 11:51:0 0 AM EDT [facility] ([facility]) Outpatient Attender: Tara Osborne NP 01/07/2020 09:18:00 AM E DT I48.91 [facility] I48.91 Outpatient Attender: Tara Osborne NP 01/06/2020 12:00:00 AM E DT I48.91 [facility] I48.91 Outpatient Attender: Tara Osborne NP 12/30/2019 09:27:00 AM E DT I48.91 [facility] I48.91 Outpatient Attender: Kaz Cid MD 12/27/2019 12:00:00 AM EDT I48.91 [facility] I48.91 Outpatient Attender: Tara Osborne NP 12/24/2019 09:00:00 AM E DT I48.91 [facility] I48.91 Outpatient Attender: Tara Osborne NP 12/23/2019 09:00:00 AM E DT I48.91 [facility] I48.91 Outpatient Attender: Tara Osborne NP 12/22/2019 08:45:00 AM E DT O48.91 [facility] O48.91 Outpatient Attender: Tara Osborne NP 12/15/2019 09:00:00 AM E DT O48.91 [facility] O48.91 Outpatient Attender: Tara Osborne NP 12/13/2019 08:00:00 AM E DT I48.91 [facility] I48.91 Emergency Attender: LORENA RAMOS MD 12/08 09:11:00 AM EDT - 12/09/2019 11:40:00 AM EDT [facility] Patient discharged. Outpatient Attender: Tara Floreseferrer: Kaz Cid MD 12/09/2019 08:25:00 AM EDT - 12/09/2019 09:08:00 AM EDT [facility] Outpatient Attender: Kaz Cid MD 12/06/2019 09:00:00 AM EDT I48.91 [facility] I48.91 Outpatient Attender: Kaz Cid MD 12/01/2019 09:00:00 AM EDT I48.91 [facility] I48.91 Outpatient Attender: Kaz Cid MD 11/26/2019 09:30:00 AM EDT I48.91 [facility] I48.91 Outpatient Attender: Kaz Cid MD 11/23/2019 07:05:00 AM EDT I48.91 [facility] I48.91 Outpatient Attender: ALAN SAMPSON MD 11/09/2019 06 :55:00 AM EDT E89.5,I48.91,C61 [facility] E89.5,I48.91,C61 Outpatient Attender: MAYURI GUARDADO MD 10/20/2019 10:54:00 AM ED T M54.2 [facility] M54.2 Outpatient Attender: MAYURI MARTINEZeferrer: Julian Herrera DO 10/20/2019 09:48:00 AM EDT - 10/20/2019 10:50:00 AM EDT [facility] Outpatient Attender: MAYURI GUARDADO MD 10/19/2019 07:00:00 AM ED T I48.91 [facility] I48.91 Outpatient Attender: Julian Herrera DO 10/12/2019 07:10:00 AM EST I48.91 [facility] I48.91 Outpatient Attender: Julian Vaughnerrer: Kaz Cid MD 09/14/2019 10:17:00 AM EST - 09/14/2019 11:39:00 AM EST [facility] Outpatient Attender: Julian Herrera DO 09/14/2019 07: 00:00 AM EST I48.91, I48.2 [facility] I48.91, I48.2 Outpatient Attender: Julian Herrera DO 09/02/2019 11:16:00 AM EST I48.91 [facility] I48.91 Outpatient Attender: Julian Herrera DO 08/31/2019 07:00:00 AM EST J06.9,I48.91 [facility] J06.9,I48.91 Outpatient Attender: Julian Herrera DO 08/13/2019 02:11:00 PM EST J06.9 [facility] J06.9 Outpatient Attender: Julian Wooder: Kaz Cid MD 08/13/2019 01:10:00 PM EST - 08/13/2019 02:08:00 PM EST [facility] Outpatient Attender: JEFFERSON [facility] 07:06:00 PM EST [facility] Out[facility] Attender: Kaz Cid MD 08/09/2019 08:15:00 AM EST I48.91 [facility] I48.91 Outpatient Attender: Julian Herrera DO 08/05/2019 08:34:00 AM EST I48.91 [facility] I48.91 Outpatient Attender: Devon Gee MD 08/03/2019 09:54:00 AM EST Z79.01 [facility] Z79.01 Outpatient Attender: ALAN Em/ [facility] 08/02/2019 02:30:00 PM EST [facility] Outpatient Attender: ALAN SAMPSON MD 07/30/2019 12 :00:00 AM EST MALIGNANT NEOPLASM OF PROSTATE,ABNORMAL FINDINGS [facility] MALIGNANT NEOPLASM OF PROSTATE,ABNORMAL FINDINGS Outpatient Attender: ALAN SAMPSON MD 07/28/2019 09 :00:00 AM EST PROSTATE CANCER C61 [facility] PROSTATE CANCER C61 Outpatient Attender: ALAN SAMPSON MD 07/23/2019 12:00:00 AM EST C61 [facility] C61 Outpatient Attender: Devon Gee MD 07/05/2019 07:45:00 AM EST Z79.01 [facility] Z79.01 Functional Status Immunizations Vaccine Date Status Description Data Source(s) INFLUENZA VIRUS VACCINE QUADRIVAL SPLIT 2020-(65 YR UP)/PF 06/05/2020 12:00:00 AM EDT completed [facility] Tdap 01/23/2020 12:00:00 AM EDT completed tetan us, diphtheria, acell pertussis 7yrs &up [facility] Tdap 01/23/2020 12:00:00 AM EDT completed tetan us, diphtheria, acell pertussis 7yrs &up [facility] Tdap 01/23/2020 12:00:00 AM EDT completed tetan us, diphtheria, acell pertussis 7yrs &up [facility] Tdap 01/23/2020 12:00:00 AM EDT completed tetan us, diphtheria, acell pertussis 7yrs &up [facility] Tdap 01/23/2020 12:00:00 AM EDT completed tetan us, diphtheria, acell pertussis 7yrs &up [facility] Tdap 01/23/2020 12:00:00 AM EDT completed tetan us, diphtheria, acell pertussis 7yrs &up [facility] Tdap 01/23/2020 12:00:00 AM EDT completed tetan us, diphtheria, acell pertussis 7yrs &up [facility] Tdap 01/23/2020 12:00:00 AM EDT completed tetan us, diphtheria, acell pertussis 7yrs &up [facility] Tdap 01/23/2020 12:00:00 AM EDT completed tetan us, diphtheria, acell pertussis 7yrs &up [facility] Tdap 01/23/2020 12:00:00 AM EDT completed tetan us, diphtheria, acell pertussis 7yrs &up [facility] Tdap 01/23/2020 12:00:00 AM EDT completed tetan us, diphtheria, acell pertussis 7yrs &up [facility] pneumococcal polysaccharide PPV23 09/14/2019 12:00:00 AM EST com pleted pneumococcal polysaccharide PPV23 vaccine [facility] pneumococcal polysaccharide PPV23 09/14/2019 12:00:00 AM EST com pleted pneumococcal polysaccharide PPV23 vaccine [facility] pneumococcal polysaccharide PPV23 09/14/2019 12:00:00 AM EST com pleted pneumococcal polysaccharide PPV23 vaccine [facility] pneumococcal polysaccharide PPV23 09/14/2019 12:00:00 AM EST com pleted pneumococcal polysaccharide PPV23 vaccine [facility] pneumococcal polysaccharide PPV23 09/14/2019 12:00:00 AM EST com pleted pneumococcal polysaccharide PPV23 vaccine [facility] pneumococcal polysaccharide PPV23 09/14/2019 12:00:00 AM EST com pleted pneumococcal polysaccharide PPV23 vaccine [facility] pneumococcal polysaccharide PPV23 09/14/2019 12:00:00 AM EST com pleted pneumococcal polysaccharide PPV23 vaccine [facility] pneumococcal polysaccharide PPV23 09/14/2019 12:00:00 AM EST com pleted pneumococcal polysaccharide PPV23 vaccine [facility] pneumococcal polysaccharide PPV23 09/14/2019 12:00:00 AM EST com pleted pneumococcal polysaccharide PPV23 vaccine [facility] pneumococcal polysaccharide PPV23 09/14/2019 12:00:00 AM EST com pleted pneumococcal polysaccharide PPV23 vaccine [facility] pneumococcal polysaccharide PPV23 09/14/2019 12:00:00 AM EST com pleted pneumococcal polysaccharide PPV23 vaccine [facility] pneumococcal polysaccharide PPV23 09/14/2019 12:00:00 AM EST com pleted pneumococcal polysaccharide PPV23 vaccine [facility] pneumococcal polysaccharide PPV23 09/14/2019 12:00:00 AM EST com pleted pneumococcal polysaccharide PPV23 vaccine [facility] pneumococcal polysaccharide PPV23 09/14/2019 12:00:00 AM EST com pleted pneumococcal polysaccharide PPV23 vaccine [facility] Medications Medication Brand Name Start Date Product Form Dose Route Admi nistrative Instructions Pharmacy Instructions Status Indications Reaction Description Data Source(s) Gemfibrozil 600 MG Oral Tablet Gemfibrozil 09/05/2020 12:42:33 PM EST 600 MG completed [facility] Warfarin Sodium 2 MG Oral Tablet Warfarin 08/15/2020 09:15:43 AM EST 2 MG active [facility] Warfarin Sodium 2 MG Oral Tablet Warfarin 08/15/2020 09:15:43 AM EST 2 MG active [facility] Eligard 6 Months 45MG 08/14/2020 12:00:00 AM EST completed [facility] ([facility] Medication administered onsite 0.1 % 08/07/2020 12:00:00 AM EST cream 80 APPLY THIN LAYER TO RASH TWO TIMES A DAY X 2 WEEKS THEN OFF 1 WEEK AND REPEAT UNTIL IMPROVED APPLY THIN LAYER TO RASH TWO TIMES A DAY X 2 WEEKS THEN OFF 1 WEEK AND REPEAT UNTIL IMPROVED SOLD: 08/28/2020 [facility] 0.1 % 08/07/2020 12:00:00 AM EST cream 80 APPLY THIN LAYER TO RASH TWO TIMES A DAY X 2 WEEKS THEN OFF 1 WEEK AND REPEAT UNTIL IMPROVED APPLY THIN LAYER TO RASH TWO TIMES A DAY X 2 WEEKS THEN OFF 1 WEEK AND REPEAT UNTIL IMPROVED SOLD: 08/09/2020 [facility] 90 mcg/actuation 08/01/2020 12:00:00 AM EST HFA aerosol inha ler 18 INHALE 2 PUFFS BY MOUTH FOUR TIMES A DAY NEEDED FOR SHORTNESS OF BREATH OR WHEEZING INHALE 2 PUFFS BY MOUTH FOUR TIMES A DAY NEEDED FOR SHORTNESS OF BREATH OR WHEEZING SOLD: 08/09/2020 [facility] Cholecalciferol 1000 UNT Oral Tablet Vitamin D 07/31/2020 12:00:00 A M EST ORAL active [facility] 0.375 ML Leuprolide Acetate 120 MG/ML Prefilled Syringe [Deepali sally] Eligard 07/31/2020 12:00:00 AM EST active [facility] ([facility]) Epoetin Bharat 2000 UNT/ML Injectable Solution [Epogen] Epogen 07/31/2020 12:00:00 AM EST active [facility] 0.1 % 07/17/2020 12:00:00 AM EST cream 80 APPLY THIN LAYER TWO TIMES A DAY TO RASH FOR 2 WEEKS TAKE 1 WEEK OFF AND REPEAT UNITL IMPROVED APPLY THIN LAYER TWO TIMES A DAY TO RASH FOR 2 WEEKS TAKE 1 WEEK OFF AND REPEAT UNITL IMPROVED SOLD: 07/22/2020 [facility] 0.1 % 07/17/2020 12:00:00 AM EST cream 80 APPLY THIN LAYER TWO TIMES A DAY TO RASH FOR 2 WEEKS TAKE 1 WEEK OFF AND REPEAT UNITL IMPROVED APPLY THIN LAYER TWO TIMES A DAY TO RASH FOR 2 WEEKS TAKE 1 WEEK OFF AND REPEAT UNITL IMPROVED SOLD: 07/22/2020 [facility] Albuterol Sulfate 07/11/2020 11:34:58 AM EST 2 INH active [facility] Albuterol Sulfate 07/11/2020 11:34:58 AM EST 2 INH active [facility] Albuterol Sulfate 07/11/2020 11:34:58 AM EST 2 INH active [facility] Albuterol Sulfate 07/11/2020 11:34:58 AM EST 2 INH active [facility] Albuterol Sulfate 07/11/2020 11:34:58 AM EST 2 INH active [facility] Permethrin 50 MG/ML Topical Cream Permethrin 07/11/2020 11:29:48 AM EST 1 APPLIC active [facility] Permethrin 50 MG/ML Topical Cream Permethrin 07/11/2020 11:29:48 AM EST 1 APPLIC active [facility] Permethrin 50 MG/ML Topical Cream Permethrin 07/11/2020 11:29:48 AM EST 1 APPLIC completed [facility] Permethrin 50 MG/ML Topical Cream Permethrin 07/11/2020 11:29:48 AM EST 1 APPLIC active [facility] Permethrin 50 MG/ML Topical Cream Permethrin 07/11/2020 11:29:48 AM EST 1 APPLIC active [facility] 5 % 07/11/2020 12:00:00 AM EST cream 60 APPLY 1 APPLICATION TOPICALLY, SECOND TREATMENT 14 DAYS AFTER FIRST TREATMENT IF LIVE LICE REMAIN APPLY 1 APPLICATION TOPICALLY, SECOND TREATMENT 14 DAYS AFTER FIRST TREATMENT IF LIVE LICE REMAIN SOLD: 07/11/2020 [facility] 90 mcg/actuation 06/15/2020 12:00:00 AM EST HFA aerosol inha ler 18 INHALE TWO PUFFS BY MOUTH FOUR TIMES A DAY NEEDED FOR SHORTNESS OF BREATH OR WHEEZING INHALE TWO PUFFS BY MOUTH FOUR TIMES A D AY NEEDED FOR SHORTNESS OF BREATH OR WHEEZING SOLD: 06/18/2020 [facility] Albuterol Sulfate 06/14/2020 05:41:29 PM EST 2 INH completed [facility] Albuterol Sulfate 06/14/2020 05:41:29 PM EST 2 INH completed [facility] Albuterol Sulfate 06/14/2020 05:41:29 PM EST 2 INH completed [facility] Albuterol Sulfate 06/14/2020 05:41:29 PM EST 2 INH completed [facility] Albuterol Sulfate 06/14/2020 05:41:29 PM EST 2 INH completed [facility] Albuterol Sulfate 06/14/2020 05:41:29 PM EST 2 INH active [facility] 0.25 mcg 05/26/2020 12:00:00 AM EDT capsule 90 TAKE ONE CAPSULE BY MOUTH EVERY DAY TAKE ONE CAPSULE BY MOUTH EVERY DAY SOLD: 05/28/2020 [facility] 1 % 05/21/2020 12:00:00 AM EDT cream 28 APPLY TOPICALLY TO AFFECTED AREAS 2- 4 TIMES A DAY NEEDED FOR ITCHING APPLY TOPICALLY TO AFFECTED AREAS 2-4 TI MES A DAY NEEDED FOR ITCHING SOLD: 05/25/2020 [facility] Rosuvastatin calcium 20 MG Oral Tablet ROSUVASTATIN CALCIUM 05/17/2020 12:00:00 AM EDT tablet 90 TAKE ONE TABLET BY MOUTH DORA RY DAY TAKE ONE TABLET BY MOUTH EVERY DAY SOLD: 06/09/2020 [facility] Hydrocortisone 10 MG/ML Topical Cream Hydrocortisone ( Anti-Itch (Hc)) 1 % cream Hydrocortisone (Anti-Itch (Hc)) 1 % cream 05/16/2020 10:42:29 AM EDT 1 APPLIC active [facility] Hydrocortisone 10 MG/ML Topical Cream Hydrocortisone ( Anti-Itch (Hc)) 1 % cream Hydrocortisone (Anti-Itch (Hc)) 1 % cream 05/16/2020 10:42:29 AM EDT 1 APPLIC active [facility] Hydrocortisone 10 MG/ML Topical Cream Hydrocortisone ( Anti-Itch (Hc)) 1 % cream Hydrocortisone (Anti-Itch (Hc)) 1 % cream 05/16/2020 10:42:29 AM EDT 1 APPLIC active [facility] Hydrocortisone 10 MG/ML Topical Cream Hydrocortisone ( Anti-Itch (Hc)) 1 % cream Hydrocortisone (Anti-Itch (Hc)) 1 % cream 05/16/2020 10:42:29 AM EDT 1 APPLIC active [facility] Hydrocortisone 10 MG/ML Topical Cream Hydrocortisone ( Anti-Itch (Hc)) 1 % cream Hydrocortisone (Anti-Itch (Hc)) 1 % cream 05/16/2020 10:42:29 AM EDT 1 APPLIC active [facility] Hydrocortisone 10 MG/ML Topical Cream Hydrocortisone ( Anti-Itch (Hc)) 1 % cream Hydrocortisone (Anti-Itch (Hc)) 1 % cream 05/16/2020 10:42:29 AM EDT 1 APPLIC active [facility] Hydrocortisone 10 MG/ML Topical Cream Hydrocortisone ( Anti-Itch (Hc)) 1 % cream Hydrocortisone (Anti-Itch (Hc)) 1 % cream 05/16/2020 10:42:29 AM EDT 1 APPLIC active [facility] Rosuvastatin calcium 20 MG Oral Tablet Rosuvastatin (C restor) 20 mg tablet Rosuvastatin (Crestor) 20 mg tablet 05/16/2020 10:13:35 AM EDT 20 MG active [facility] Rosuvastatin calcium 20 MG Oral Tablet Rosuvastatin (C restor) 20 mg tablet Rosuvastatin (Crestor) 20 mg tablet 05/16/2020 10:13:35 AM EDT 20 MG active [facility] Rosuvastatin calcium 20 MG Oral Tablet Rosuvastatin (C restor) 20 mg tablet Rosuvastatin (Crestor) 20 mg tablet 05/16/2020 10:13:35 AM EDT 20 MG completed [facility] Rosuvastatin calcium 20 MG Oral Tablet Rosuvastatin (C restor) 20 mg tablet Rosuvastatin (Crestor) 20 mg tablet 05/16/2020 10:13:35 AM EDT 20 MG active [facility] Rosuvastatin calcium 20 MG Oral Tablet Rosuvastatin (C restor) 20 mg tablet Rosuvastatin (Crestor) 20 mg tablet 05/16/2020 10:13:35 AM EDT 20 MG active [facility] Rosuvastatin calcium 20 MG Oral Tablet Rosuvastatin (C restor) 20 mg tablet Rosuvastatin (Crestor) 20 mg tablet 05/16/2020 10:13:35 AM EDT 20 MG active [facility] Rosuvastatin calcium 20 MG Oral Tablet Rosuvastatin (C restor) 20 mg tablet Rosuvastatin (Crestor) 20 mg tablet 05/16/2020 10:13:35 AM EDT 20 MG active [facility] Gemfibrozil 600 MG Oral Tablet Gemfibrozil 05/16/2020 10:13:30 AM EDT 600 MG active [facility] Gemfibrozil 600 MG Oral Tablet Gemfibrozil 05/16/2020 10:13:30 AM EDT 600 MG completed [facility] Gemfibrozil 600 MG Oral Tablet Gemfibrozil 05/16/2020 10:13:30 AM EDT 600 MG completed [facility] Gemfibrozil 600 MG Oral Tablet Gemfibrozil 05/16/2020 10:13:30 AM EDT 600 MG active [facility] Gemfibrozil 600 MG Oral Tablet Gemfibrozil 05/16/2020 10:13:30 AM EDT 600 MG active [facility] Gemfibrozil 600 MG Oral Tablet Gemfibrozil 05/16/2020 10:13:30 AM EDT 600 MG active [facility] Gemfibrozil 600 MG Oral Tablet Gemfibrozil 05/16/2020 10:13:30 AM EDT 600 MG active [facility] Folic Acid 1 MG Oral Tablet Folic Acid 03/14/2020 04:21:59 PM EDT 1 MG active [facility] Folic Acid 1 MG Oral Tablet Folic Acid 03/14/2020 04:21:59 PM EDT 1 MG active [facility] Folic Acid 1 MG Oral Tablet Folic Acid 03/14/2020 04:21:59 PM EDT 1 MG active [facility] Folic Acid 1 MG Oral Tablet Folic Acid 03/14/2020 04:21:59 PM EDT 1 MG active [facility] Folic Acid 1 MG Oral Tablet Folic Acid 03/14/2020 04:21:59 PM EDT 1 MG active [facility] Folic Acid 1 MG Oral Tablet Folic Acid 03/14/2020 04:21:59 PM EDT 1 MG active [facility] Folic Acid 1 MG Oral Tablet Folic Acid 03/14/2020 04:21:59 PM EDT 1 MG active [facility] Folic Acid 1 MG Oral Tablet Folic Acid 03/14/2020 04:21:59 PM EDT 1 MG active [facility] 1 mg 03/14/2020 12:00:00 AM EDT tablet 90 TAKE ONE TABLET BY MOUTH EVERY DAY TAKE ONE TABLET BY MOUTH EVERY DAY SOLD: 03/15/2020 [facility] 0.4 mg 03/09/2020 12:00:00 AM EDT capsule 90 TAKE ONE CAPSULE BY MOUTH EVERY DAY AFTER DINNER TAKE ONE CAPSULE BY MOUTH EVERY DAY AFTER DINNER SOLD: 06/09/2020 [facility] 0.4 mg 03/09/2020 12:00:00 AM EDT capsule 90 TAKE ONE CAPSULE BY MOUTH EVERY DAY AFTER DINNER TAKE ONE CAPSULE BY MOUTH EVERY DAY AFTER DINNER SOLD: 03/10/2020 [facility] 600 mg 03/09/2020 12:00:00 AM EDT tablet 180 TAKE ONE TABLET BY MOUTH TWICE A DAY TAKE ONE TABLET BY MOUTH TWICE A DAY SOLD: 03/10/2020 [facility] ferrous gluconate 324 MG Oral Tablet Ferrous Gluconate [facility] Gluconate 03/08/2020 10:12:14 AM EDT 324 MG [facility] ferrous gluconate 324 MG Oral Tablet Ferrous Gluconate Nerissa us Gluconate 03/08/2020 10:12:14 AM EDT 324 MG [facility] ferrous gluconate 324 MG Oral Tablet Ferrous Gluconate [facility]issa us Gluconate 03/08/2020 10:12:14 AM EDT 324 MG [facility] ferrous gluconate 324 MG Oral Tablet Ferrous Gluconate [facility]issa [facility] Gluconate 03/08/2020 10:12:14 AM EDT 324 MG [facility] ferrous gluconate 324 MG Oral Tablet Ferrous Gluconate [facility] Gluconate 03/08/2020 10:12:14 AM EDT 324 MG active [facility] ferrous gluconate 324 MG Oral Tablet Ferrous Gluconate Nerissa us Gluconate 03/08/2020 10:12:14 AM EDT 324 MG active [facility] ferrous gluconate 324 MG Oral Tablet Ferrous Gluconate Nerissa Gluconate 03/08/2020 10:12:14 AM EDT 324 MG active [facility] ferrous gluconate 324 MG Oral Tablet Ferrous Gluconate Nerissa Gluconate 03/08/2020 10:12:14 AM EDT 324 MG active [facility] ferrous gluconate 324 MG Oral Tablet Ferrous Gluconate Nerissa Gluconate 03/08/2020 10:12:14 AM EDT 324 MG active [facility] Omeprazole 20 MG Delayed Release Oral Capsule Omeprazole 03/08/2020 10:12:02 AM EDT 20 MG active [facility] Omeprazole 20 MG Delayed Release Oral Capsule Omeprazole 03/08/2020 10:12:02 AM EDT 20 MG active [facility] Omeprazole 20 MG Delayed Release Oral Capsule Omeprazole 03/08/2020 10:12:02 AM EDT 20 MG active [facility] Omeprazole 20 MG Delayed Release Oral Capsule Omeprazole 03/08/2020 10:12:02 AM EDT 20 MG active [facility] Omeprazole 20 MG Delayed Release Oral Capsule Omeprazole 03/08/2020 10:12:02 AM EDT 20 MG active [facility] Omeprazole 20 MG Delayed Release Oral Capsule Omeprazole 03/08/2020 10:12:02 AM EDT 20 MG active [facility] Omeprazole 20 MG Delayed Release Oral Capsule Omeprazole 03/08/2020 10:12:02 AM EDT 20 MG active [facility] Omeprazole 20 MG Delayed Release Oral Capsule Omeprazole 03/08/2020 10:12:02 AM EDT 20 MG active [facility] Omeprazole 20 MG Delayed Release Oral Capsule Omeprazole 03/08/2020 10:12:02 AM EDT 20 MG active [facility] Allopurinol 100 MG Oral Tablet Allopurinol 03/08/2020 10:11:48 AM EDT 100 MG active [facility] Allopurinol 100 MG Oral Tablet Allopurinol 03/08/2020 10:11:48 AM EDT 100 MG active [facility] Allopurinol 100 MG Oral Tablet Allopurinol 03/08/2020 10:11:48 AM EDT 100 MG active [facility] Allopurinol 100 MG Oral Tablet Allopurinol 03/08/2020 10:11:48 AM EDT 100 MG active [facility] Allopurinol 100 MG Oral Tablet Allopurinol 03/08/2020 10:11:48 AM EDT 100 MG active [facility] Allopurinol 100 MG Oral Tablet Allopurinol 03/08/2020 10:11:48 AM EDT 100 MG active [facility] Allopurinol 100 MG Oral Tablet Allopurinol 03/08/2020 10:11:48 AM EDT 100 MG active [facility] Allopurinol 100 MG Oral Tablet Allopurinol 03/08/2020 10:11:48 AM EDT 100 MG active [facility] Allopurinol 100 MG Oral Tablet Allopurinol 03/08/2020 10:11:48 AM EDT 100 MG active [facility] Lisinopril 5 MG Oral Tablet Lisinopril 03/08/2020 10:11:35 AM EDT 5 MG active [facility] Lisinopril 5 MG Oral Tablet Lisinopril 03/08/2020 10:11:35 AM EDT 5 MG active [facility] Lisinopril 5 MG Oral Tablet Lisinopril 03/08/2020 10:11:35 AM EDT 5 MG [facility] Lisinopril 5 MG Oral Tablet Lisinopril 03/08/2020 10:11:35 AM EDT 5 MG [facility] Lisinopril 5 MG Oral Tablet Lisinopril 03/08/2020 10:11:35 AM EDT 5 MG [facility] Lisinopril 5 MG Oral Tablet Lisinopril 03/08/2020 10:11:35 AM EDT 5 MG [facility] Lisinopril 5 MG Oral Tablet Lisinopril 03/08/2020 10:11:35 AM EDT 5 MG [facility] Lisinopril 5 MG Oral Tablet Lisinopril 03/08/2020 10:11:35 AM EDT 5 MG [facility] Lisinopril 5 MG Oral Tablet Lisinopril 03/08/2020 10:11:35 AM EDT 5 MG active [facility] Folic Acid 1 MG Oral Tablet Folic Acid 03/08/2020 10:11:23 AM EDT 1 MG completed [facility] Folic Acid 1 MG Oral Tablet Folic Acid 03/08/2020 10:11:23 AM EDT 1 MG active [facility] Folic Acid 1 MG Oral Tablet Folic Acid 03/08/2020 10:11:23 AM EDT 1 MG completed [facility] Folic Acid 1 MG Oral Tablet Folic Acid 03/08/2020 10:11:23 AM EDT 1 MG completed [facility] Folic Acid 1 MG Oral Tablet Folic Acid 03/08/2020 10:11:23 AM EDT 1 MG completed [facility] Folic Acid 1 MG Oral Tablet Folic Acid 03/08/2020 10:11:23 AM EDT 1 MG completed [facility] Folic Acid 1 MG Oral Tablet Folic Acid 03/08/2020 10:11:23 AM EDT 1 MG completed [facility] Folic Acid 1 MG Oral Tablet Folic Acid 03/08/2020 10:11:23 AM EDT 1 MG completed [facility] Folic Acid 1 MG Oral Tablet Folic Acid 03/08/2020 10:11:23 AM EDT 1 MG completed [facility] Hydrocortisone 10 MG/ML Topical Cream Hydrocortisone ( Anti-Itch (Hc)) 1 % cream Hydrocortisone (Anti-Itch (Hc)) 1 % cream 03/08/2020 10:10:23 AM EDT 1 APPLIC active [facility] Hydrocortisone 10 MG/ML Topical Cream Hydrocortisone ( Anti-Itch (Hc)) 1 % cream Hydrocortisone (Anti-Itch (Hc)) 1 % cream 03/08/2020 10:10:23 AM EDT 1 APPLIC completed [facility] Hydrocortisone 10 MG/ML Topical Cream Hydrocortisone ( Anti-Itch (Hc)) 1 % cream Hydrocortisone (Anti-Itch (Hc)) 1 % cream 03/08/2020 10:10:23 AM EDT 1 APPLIC completed [facility] Hydrocortisone 10 MG/ML Topical Cream Hydrocortisone ( Anti-Itch (Hc)) 1 % cream Hydrocortisone (Anti-Itch (Hc)) 1 % cream 03/08/2020 10:10:23 AM EDT 1 APPLIC completed [facility] Hydrocortisone 10 MG/ML Topical Cream Hydrocortisone ( Anti-Itch (Hc)) 1 % cream Hydrocortisone (Anti-Itch (Hc)) 1 % cream 03/08/2020 10:10:23 AM EDT 1 APPLIC completed [facility] Hydrocortisone 10 MG/ML Topical Cream Hydrocortisone ( Anti-Itch (Hc)) 1 % cream Hydrocortisone (Anti-Itch (Hc)) 1 % cream 03/08/2020 10:10:23 AM EDT 1 APPLIC completed [facility] Hydrocortisone 10 MG/ML Topical Cream Hydrocortisone ( Anti-Itch (Hc)) 1 % cream Hydrocortisone (Anti-Itch (Hc)) 1 % cream 03/08/2020 10:10:23 AM EDT 1 APPLIC completed [facility] Hydrocortisone 10 MG/ML Topical Cream Hydrocortisone ( Anti-Itch (Hc)) 1 % cream Hydrocortisone (Anti-Itch (Hc)) 1 % cream 03/08/2020 10:10:23 AM EDT 1 APPLIC active [facility] Hydrocortisone 10 MG/ML Topical Cream Hydrocortisone ( Anti-Itch (Hc)) 1 % cream Hydrocortisone (Anti-Itch (Hc)) 1 % cream 03/08/2020 10:10:23 AM EDT 1 APPLIC completed [facility] 100 mg 03/08/2020 12:00:00 AM EDT tablet 90 TAKE ONE TABLET BY MOUTH EVERY DAY TAKE ONE TABLET BY MOUTH EVERY DAY SOLD: 06/09/2020 [facility] 5 mg 03/08/2020 12:00:00 AM EDT tablet 90 TAKE ONE TABLET BY MOUTH EVERY DAY TAKE ONE TABLET BY MOUTH EVERY DAY SOLD: 03/10/2020 [facility] 20 mg 03/08/2020 12:00:00 AM EDT capsule,delayed release (DR/EC) 90 TAKE ONE CAPSULE BY MOUTH EVERY DAY TAKE ONE CAPSULE BY MOUTH EVERY DAY SOLD: 03/10/2020 [facility] 100 mg 03/08/2020 12:00:00 AM EDT tablet 90 TAKE ONE TABLET BY MOUTH EVERY DAY TAKE ONE TABLET BY MOUTH EVERY DAY SOLD: 03/10/2020 [facility] 20 mg 03/08/2020 12:00:00 AM EDT capsule,delayed release (DR/EC) 90 TAKE ONE CAPSULE BY MOUTH EVERY DAY TAKE ONE CAPSULE BY MOUTH EVERY DAY SOLD: 06/09/2020 [facility] 5 mg 03/08/2020 12:00:00 AM EDT tablet 90 TAKE ONE TABLET BY MOUTH EVERY DAY TAKE ONE TABLET BY MOUTH EVERY DAY SOLD: 06/09/2020 [facility] 324 mg (38 mg iron) 03/08/2020 12:00:00 AM EDT tablet 90 TAKE ONE TABLET BY MOUTH EVERY DAY TAKE ONE TABLET BY MOUTH EVERY DAY SOLD: 06/09/2020 [facility] 1 mg 03/08/2020 12:00:00 AM EDT tablet 90 TAKE ONE TABLET BY MOUTH EVERY DAY TAKE ONE TABLET BY MOUTH EVERY DAY SOLD: 03/10/2020 [facility] 324 mg (38 mg iron) 03/08/2020 12:00:00 AM EDT tablet 90 TAKE ONE TABLET BY MOUTH EVERY DAY TAKE ONE TABLET BY MOUTH EVERY DAY SOLD: 03/10/2020 [facility] 3 mg 02/11/2020 12:00:00 AM EDT tablet 30 TAKE ONE TABLET BY MOUTH EVERY DAY EXCEPT FRIDAY AND FRIDAY, 2MG ON THOSE DAYS TAKE ONE TABLET BY MOUTH EVERY DAY EXCEPT FRIDAY AND FRIDAY, 2MG ON THOSE DAYS SOLD: 02/14/2020 [facility] 2 mg 02/11/2020 12:00:00 AM EDT tablet 15 TKE 1 TABLET BY MOUTH ON FRIDAY AND FRIDAY ONLY TKE 1 TABLET BY MOUTH ON FRIDAY AND FRIDAY ONLY [facility] 2 mg 02/11/2020 12:00:00 AM EDT tablet 15 TKE 1 TABLET BY MOUTH ON FRIDAY AND FRIDAY ONLY TKE 1 TABLET BY MOUTH ON FRIDAY AND FRIDAY ONLY [facility] Warfarin Sodium 2 MG Oral Tablet Warfarin 02/10/2020 11:25:09 AM EDT 2 MG active [facility] Warfarin Sodium 2 MG Oral Tablet Warfarin 02/10/2020 11:25:09 AM EDT 2 MG active [facility] Warfarin Sodium 2 MG Oral Tablet Warfarin 02/10/2020 11:25:09 AM EDT 2 MG active [facility] Warfarin Sodium 2 MG Oral Tablet Warfarin 02/10/2020 11:25:09 AM EDT 2 MG active [facility] Warfarin Sodium 2 MG Oral Tablet Warfarin 02/10/2020 11:25:09 AM EDT 2 MG active [facility] Warfarin Sodium 2 MG Oral Tablet Warfarin 02/10/2020 11:25:09 AM EDT 2 MG active [facility] Warfarin Sodium 2 MG Oral Tablet Warfarin 02/10/2020 11:25:09 AM EDT 2 MG completed [facility] Warfarin Sodium 2 MG Oral Tablet Warfarin 02/10/2020 11:25:09 AM EDT 2 MG completed [facility] Warfarin Sodium 2 MG Oral Tablet Warfarin 02/10/2020 11:25:09 AM EDT 2 MG active [facility] Warfarin Sodium 3 MG Oral Tablet Warfarin 02/10/2020 11:23:56 AM EDT 3 MG active [facility] Warfarin Sodium 3 MG Oral Tablet Warfarin 02/10/2020 11:23:56 AM EDT 3 MG active [facility] Warfarin Sodium 3 MG Oral Tablet Warfarin 02/10/2020 11:23:56 AM EDT 3 MG active [facility] Warfarin Sodium 3 MG Oral Tablet Warfarin 02/10/2020 11:23:56 AM EDT 3 MG active [facility] Warfarin Sodium 3 MG Oral Tablet Warfarin 02/10/2020 11:23:56 AM EDT 3 MG active [facility] Warfarin Sodium 3 MG Oral Tablet Warfarin 02/10/2020 11:23:56 AM EDT 3 MG active [facility] Warfarin Sodium 3 MG Oral Tablet Warfarin 02/10/2020 11:23:56 AM EDT 3 MG active [facility] Warfarin Sodium 3 MG Oral Tablet Warfarin 02/10/2020 11:23:56 AM EDT 3 MG active [facility] Warfarin Sodium 3 MG Oral Tablet Warfarin 02/10/2020 11:23:56 AM EDT 3 MG active [facility] Eligard 6 Months 45MG 02/03/2020 12:00:00 AM EDT completed [facility] ([facility]) Medication administered onsite Oxybutynin chloride 5 MG Oral Tablet OXYBUTYNIN CHLORIDE 12:00:00 AM EDT tablet 30 TAKE ONE TABLET BY MOUTH AT BEDTIME EVERY EVENING TAKE ONE TABLET BY MOUTH AT BEDTIME EVERY EVENING SOLD: 02/03/2020 [facility] Oxybutynin chloride 5 MG Oral Tablet Oxybutynin Chloride 12:00:00 AM EDT ORAL completed [facility] ([facility]) 0.4 mg 01/31/2020 12:00:00 AM EDT tablet, sublingual [address]ACE ONE TABLET UNDER THE TONGUE EVERY 5 MINUTES FOR UP TO 3 DOSES NEEDED FOR CHEST PAIN. IF CHEST PAIN STILL PERSISTS CONTACT [address] ONE TABLET UNDER THE TONGUE EVERY 5 MINUTES FOR UP TO 3 DOSES NEEDED FOR CHEST PAIN. IF CHEST PAIN STILL PERSISTS CONTACT 911 SOLD: 02/03/2020 [facility] 40 mg 01/30/2020 12:00:00 AM EDT tablet 88 TAKE ONE TABLET BY MOUTH TWICE A DAY TAKE ONE TABLET BY MOUTH TWICE A DAY SOLD: 01/30/2020 [facility] 60 ACTUAT Albuterol 0.09 MG/ACTUAT Metered Dose Inhaler Albu terol Sulfate HFA 01/30/2020 12:00:00 AM EDT RESPIRATORY active [facility]) 0.5 ML Leuprolide Acetate 60 MG/ML Prefilled Syringe [Eligar d] Eligard 01/30/2020 12:00:00 AM EDT active [facility] ([facility]) 40 mg 01/30/2020 12:00:00 AM EDT tablet 180 TAKE ONE TABLET BY MOUTH TWICE A DAY TAKE ONE TABLET BY MOUTH TWICE A DAY SOLD: 06/14/2020 [facility] 40 mg 01/30/2020 12:00:00 AM EDT tablet 180 TAKE ONE TABLET BY MOUTH TWICE A DAY TAKE ONE TABLET BY MOUTH TWICE A DAY SOLD: 03/15/2020 [facility] Warfarin Sodium 2 MG Oral Tablet Warfarin 01/24/2020 04:32:53 PM EDT 2 MG completed [facility] Warfarin Sodium 2 MG Oral Tablet Warfarin 01/24/2020 04:32:53 PM EDT 2 MG completed [facility] Warfarin Sodium 2 MG Oral Tablet Warfarin 01/24/2020 04:32:53 PM EDT 2 MG completed [facility] Warfarin Sodium 2 MG Oral Tablet Warfarin 01/24/2020 04:32:53 PM EDT 2 MG completed [facility] Warfarin Sodium 2 MG Oral Tablet Warfarin 01/24/2020 04:32:53 PM EDT 2 MG completed [facility] Warfarin Sodium 2 MG Oral Tablet Warfarin 01/24/2020 04:32:53 PM EDT 2 MG completed [facility] Warfarin Sodium 2 MG Oral Tablet Warfarin 01/24/2020 04:32:53 PM EDT 2 MG completed [facility] Warfarin Sodium 2 MG Oral Tablet Warfarin 01/24/2020 04:32:53 PM EDT 2 MG active [facility] Warfarin Sodium 2 MG Oral Tablet Warfarin 01/24/2020 04:32:53 PM EDT 2 MG completed [facility] Warfarin Sodium 2 MG Oral Tablet Warfarin 01/24/2020 04:32:53 PM EDT 2 MG completed [facility] 3 mg 12/26/2019 12:00:00 AM EDT tablet 30 TAKE ONE TABLET BY MOUTH EVERY DAY TAKE ONE TABLET BY MOUTH EVERY DAY SOLD: 01/03/2020 [facility] Warfarin Sodium 3 MG Oral Tablet Warfarin 12/24/2019 10:56:57 AM EDT 3 MG active [facility] Warfarin Sodium 3 MG Oral Tablet Warfarin 12/24/2019 10:56:57 AM EDT 3 MG active [facility] Warfarin Sodium 3 MG Oral Tablet Warfarin 12/24/2019 10:56:57 AM EDT 3 MG completed [facility] Warfarin Sodium 3 MG Oral Tablet Warfarin 12/24/2019 10:56:57 AM EDT 3 MG completed [facility] Warfarin Sodium 3 MG Oral Tablet Warfarin 12/24/2019 10:56:57 AM EDT 3 MG completed [facility] Warfarin Sodium 3 MG Oral Tablet Warfarin 12/24/2019 10:56:57 AM EDT 3 MG completed [facility] Warfarin Sodium 3 MG Oral Tablet Warfarin 12/24/2019 10:56:57 AM EDT 3 MG completed [facility] Warfarin Sodium 3 MG Oral Tablet Warfarin 12/24/2019 10:56:57 AM EDT 3 MG completed [facility] Warfarin Sodium 3 MG Oral Tablet Warfarin 12/24/2019 10:56:57 AM EDT 3 MG completed [facility] Warfarin Sodium 3 MG Oral Tablet Warfarin 12/24/2019 10:56:57 AM EDT 3 MG completed [facility] Warfarin Sodium 3 MG Oral Tablet Warfarin 12/24/2019 10:56:57 AM EDT 3 MG completed [facility] Furosemide 40 MG Oral Tablet Furosemide (Lasix) 40 mg tablet Furosemide (Lasix) 40 mg tablet 12/22/2019 10:23:15 AM EDT 40 MG active [facility] Furosemide 40 MG Oral Tablet Furosemide (Lasix) 40 mg tablet Furosemide (Lasix) 40 mg tablet 12/22/2019 10:23:15 AM EDT 40 MG active [facility] Furosemide 40 MG Oral Tablet Furosemide (Lasix) 40 mg tablet Furosemide (Lasix) 40 mg tablet 12/22/2019 10:23:15 AM EDT 40 MG active [facility] Furosemide 40 MG Oral Tablet Furosemide (Lasix) 40 mg tablet Furosemide (Lasix) 40 mg tablet 12/22/2019 10:23:15 AM EDT 40 MG active [facility] Furosemide 40 MG Oral Tablet Furosemide (Lasix) 40 mg tablet Furosemide (Lasix) 40 mg tablet 12/22/2019 10:23:15 AM EDT 40 MG active [facility] Furosemide 40 MG Oral Tablet Furosemide (Lasix) 40 mg tablet Furosemide (Lasix) 40 mg tablet 12/22/2019 10:23:15 AM EDT 40 MG active [facility] Furosemide 40 MG Oral Tablet Furosemide 12/22/2019 10:23:15 AM EDT 40 MG active [facility] Furosemide 40 MG Oral Tablet Furosemide (Lasix) 40 mg tablet Furosemide (Lasix) 40 mg tablet 12/22/2019 10:23:15 AM EDT 40 MG active [facility] Furosemide 40 MG Oral Tablet Furosemide (Lasix) 40 mg tablet Furosemide (Lasix) 40 mg tablet 12/22/2019 10:23:15 AM EDT 40 MG active [facility] Furosemide 40 MG Oral Tablet Furosemide 12/22/2019 10:23:15 AM EDT 40 MG active [facility] Furosemide 40 MG Oral Tablet Furosemide (Lasix) 40 mg tablet Furosemide (Lasix) 40 mg tablet 12/22/2019 10:23:15 AM EDT 40 MG active [facility] Furosemide 40 MG Oral Tablet Furosemide (Lasix) 40 mg tablet Furosemide (Lasix) 40 mg tablet 12/20/2019 10:22:31 AM EDT 40 MG completed [facility] Furosemide 40 MG Oral Tablet Furosemide (Lasix) 40 mg tablet Furosemide (Lasix) 40 mg tablet 12/20/2019 10:22:31 AM EDT 40 MG completed [facility] Furosemide 40 MG Oral Tablet Furosemide (Lasix) 40 mg tablet Furosemide (Lasix) 40 mg tablet 12/20/2019 10:22:31 AM EDT 40 MG completed [facility] Furosemide 40 MG Oral Tablet Furosemide 12/20/2019 10:22:31 AM EDT 40 MG completed [facility] Furosemide 40 MG Oral Tablet Furosemide (Lasix) 40 mg tablet Furosemide (Lasix) 40 mg tablet 12/20/2019 10:22:31 AM EDT 40 MG completed [facility] Furosemide 40 MG Oral Tablet Furosemide (Lasix) 40 mg tablet Furosemide (Lasix) 40 mg tablet 12/20/2019 10:22:31 AM EDT 40 MG completed [facility] Furosemide 40 MG Oral Tablet Furosemide (Lasix) 40 mg tablet Furosemide (Lasix) 40 mg tablet 12/20/2019 10:22:31 AM EDT 40 MG completed [facility] Furosemide 40 MG Oral Tablet Furosemide (Lasix) 40 mg tablet Furosemide (Lasix) 40 mg tablet 12/20/2019 10:22:31 AM EDT 40 MG completed [facility] Furosemide 40 MG Oral Tablet Furosemide 12/20/2019 10:22:31 AM EDT 40 MG completed [facility] Furosemide 40 MG Oral Tablet Furosemide (Lasix) 40 mg tablet Furosemide (Lasix) 40 mg tablet 12/20/2019 10:22:31 AM EDT 40 MG completed [facility] Furosemide 40 MG Oral Tablet Furosemide (Lasix) 40 mg tablet Furosemide (Lasix) 40 mg tablet 12/20/2019 10:22:31 AM EDT 40 MG completed [facility] 40 mg 12/20/2019 12:00:00 AM EDT tablet 90 TAKE ONE TABLET BY MOUTH EVERY DAY TAKE ONE TABLET BY MOUTH EVERY DAY SOLD: 12/21/2019 [facility] Metoprolol Tartrate 25 MG Oral Tablet Metoprolol Tartrate 10:01:00 AM EDT 12.5 MG active [facility] Lisinopril 5 MG Oral Tablet Lisinopril 12/09/2019 10:01:00 AM EDT 5 MG completed [facility] Lisinopril 5 MG Oral Tablet Lisinopril 12/09/2019 10:01:00 AM EDT 5 MG active [facility] Metoprolol Tartrate 25 MG Oral Tablet Metoprolol Tartrate 10:01:00 AM EDT 12.5 MG active [facility] Lisinopril 5 MG Oral Tablet Lisinopril 12/09/2019 10:01:00 AM EDT 5 MG active [facility] Allopurinol 100 MG Oral Tablet Allopurinol 12/09/2019 10:01:00 AM EDT 100 MG completed [facility] ferrous gluconate 324 MG Oral Tablet Ferrous Gluconate Nerissa us Gluconate 12/09/2019 10:01:00 AM EDT 324 MG completed [facility] Allopurinol 100 MG Oral Tablet Allopurinol 12/09/2019 10:01:00 AM EDT 100 MG active [facility] Lisinopril 5 MG Oral Tablet Lisinopril 12/09/2019 10:01:00 AM EDT 5 MG completed [facility] ferrous gluconate 324 MG Oral Tablet Ferrous Gluconate Nerissa us Gluconate 12/09/2019 10:01:00 AM EDT 324 MG active [facility] ferrous gluconate 324 MG Oral Tablet Ferrous Gluconate Nerissa us Gluconate 12/09/2019 10:01:00 AM EDT 324 MG completed [facility] Allopurinol 100 MG Oral Tablet Allopurinol 12/09/2019 10:01:00 AM EDT 100 MG active [facility] Allopurinol 100 MG Oral Tablet Allopurinol 12/09/2019 10:01:00 AM EDT 100 MG completed [facility] Lisinopril 5 MG Oral Tablet Lisinopril 12/09/2019 10:01:00 AM EDT 5 MG completed [facility] ferrous gluconate 324 MG Oral Tablet Ferrous Gluconate Nerissa us Gluconate 12/09/2019 10:01:00 AM EDT 324 MG completed [facility] Metoprolol Tartrate 25 MG Oral Tablet Metoprolol Tartrate 10:01:00 AM EDT 12.5 MG active [facility] Lisinopril 5 MG Oral Tablet Lisinopril 12/09/2019 10:01:00 AM EDT 5 MG completed [facility] ferrous gluconate 324 MG Oral Tablet Ferrous Gluconate Nerissa us Gluconate 12/09/2019 10:01:00 AM EDT 324 MG active [facility] Metoprolol Tartrate 25 MG Oral Tablet Metoprolol Tartrate 10:01:00 AM EDT 12.5 MG active [facility] ferrous gluconate 324 MG Oral Tablet Ferrous Gluconate Nerissa us Gluconate 12/09/2019 10:01:00 AM EDT 324 MG completed [facility] Lisinopril 5 MG Oral Tablet Lisinopril 12/09/2019 10:01:00 AM EDT 5 MG completed [facility] Metoprolol Tartrate 25 MG Oral Tablet Metoprolol Tartrate 10:01:00 AM EDT 12.5 MG active [facility] Metoprolol Tartrate 25 MG Oral Tablet Metoprolol Tartrate 10:01:00 AM EDT 12.5 MG active [facility] Allopurinol 100 MG Oral Tablet Allopurinol 12/09/2019 10:01:00 AM EDT 100 MG completed [facility] Metoprolol Tartrate 25 MG Oral Tablet Metoprolol Tartrate 10:01:00 AM EDT 12.5 MG active [facility] Lisinopril 5 MG Oral Tablet Lisinopril 12/09/2019 10:01:00 AM EDT 5 MG completed [facility] ferrous gluconate 324 MG Oral Tablet Ferrous Gluconate Nerissa us Gluconate 12/09/2019 10:01:00 AM EDT 324 MG active [facility] Lisinopril 5 MG Oral Tablet Lisinopril 12/09/2019 10:01:00 AM EDT 5 MG active [facility] ferrous gluconate 324 MG Oral Tablet Ferrous Gluconate Nerissa us Gluconate 12/09/2019 10:01:00 AM EDT 324 MG completed [facility] Allopurinol 100 MG Oral Tablet Allopurinol 12/09/2019 10:01:00 AM EDT 100 MG completed [facility] Metoprolol Tartrate 25 MG Oral Tablet Metoprolol Tartrate 10:01:00 AM EDT 12.5 MG active [facility] Metoprolol Tartrate 25 MG Oral Tablet Metoprolol Tartrate 10:01:00 AM EDT 12.5 MG active [facility] ferrous gluconate 324 MG Oral Tablet Ferrous Gluconate Nerissa us Gluconate 12/09/2019 10:01:00 AM EDT 324 MG completed [facility] Metoprolol Tartrate 25 MG Oral Tablet Metoprolol Tartrate 10:01:00 AM EDT 12.5 MG active [facility] Lisinopril 5 MG Oral Tablet Lisinopril 12/09/2019 10:01:00 AM EDT 5 MG completed [facility] Metoprolol Tartrate 25 MG Oral Tablet Metoprolol Tartrate 10:01:00 AM EDT 12.5 MG active [facility] Allopurinol 100 MG Oral Tablet Allopurinol 12/09/2019 10:01:00 AM EDT 100 MG completed [facility] Metoprolol Tartrate 25 MG Oral Tablet Metoprolol Tartrate 10:01:00 AM EDT 12.5 MG active [facility] Allopurinol 100 MG Oral Tablet Allopurinol 12/09/2019 10:01:00 AM EDT 100 MG completed [facility] ferrous gluconate 324 MG Oral Tablet Ferrous Gluconate Nerissa us Gluconate 12/09/2019 10:01:00 AM EDT 324 MG completed [facility] Lisinopril 5 MG Oral Tablet Lisinopril 12/09/2019 10:01:00 AM EDT 5 MG completed [facility] Allopurinol 100 MG Oral Tablet Allopurinol 12/09/2019 10:01:00 AM EDT 100 MG completed [facility] Lisinopril 5 MG Oral Tablet Lisinopril 12/09/2019 10:01:00 AM EDT 5 MG completed [facility] ferrous gluconate 324 MG Oral Tablet Ferrous Gluconate Nerissa us Gluconate 12/09/2019 10:01:00 AM EDT 324 MG completed [facility] Allopurinol 100 MG Oral Tablet Allopurinol 12/09/2019 10:01:00 AM EDT 100 MG completed [facility] Allopurinol 100 MG Oral Tablet Allopurinol 12/09/2019 10:01:00 AM EDT 100 MG completed [facility] Allopurinol 100 MG Oral Tablet Allopurinol 12/09/2019 10:01:00 AM EDT 100 MG active [facility] ferrous gluconate 324 MG Oral Tablet Ferrous Gluconate Nerissa us Gluconate 12/09/2019 10:01:00 AM EDT 324 MG completed [facility] Warfarin Sodium 3 MG Oral Tablet Warfarin 12/09/2019 09:54:16 AM EDT 3 MG completed [facility] Warfarin Sodium 3 MG Oral Tablet Warfarin 12/09/2019 09:54:16 AM EDT 3 MG completed [facility] Warfarin Sodium 3 MG Oral Tablet Warfarin 12/09/2019 09:54:16 AM EDT 3 MG completed [facility] Warfarin Sodium 3 MG Oral Tablet Warfarin 12/09/2019 09:54:16 AM EDT 3 MG completed [facility] Warfarin Sodium 3 MG Oral Tablet Warfarin 12/09/2019 09:54:16 AM EDT 3 MG completed [facility] Warfarin Sodium 3 MG Oral Tablet Warfarin 12/09/2019 09:54:16 AM EDT 3 MG completed [facility] Warfarin Sodium 3 MG Oral Tablet Warfarin 12/09/2019 09:54:16 AM EDT 3 MG completed [facility] Warfarin Sodium 3 MG Oral Tablet Warfarin 12/09/2019 09:54:16 AM EDT 3 MG completed [facility] Warfarin Sodium 3 MG Oral Tablet Warfarin 12/09/2019 09:54:16 AM EDT 3 MG completed [facility] Warfarin Sodium 3 MG Oral Tablet Warfarin 12/09/2019 09:54:16 AM EDT 3 MG completed [facility] Warfarin Sodium 3 MG Oral Tablet Warfarin 12/09/2019 09:54:16 AM EDT 3 MG completed [facility] Warfarin Sodium 3 MG Oral Tablet Warfarin 12/09/2019 09:54:16 AM EDT 3 MG completed [facility] 0.25 ML Leuprolide Acetate 30 MG/ML Pref illed Syringe Leuprolide (Eligard) 7.5 mg (1 month) syringe Leuprolide (Eligard) 7.5 mg (1 month) syringe 12/09/19 20 08:33:00 AM EDT 7.5 MG active [facility] 0.25 ML Leuprolide Acetate 30 MG/ML Pref illed Syringe Leuprolide (Eligard) 7.5 mg (1 month) syringe Leuprolide (Eligard) 7.5 mg (1 month) syringe 12/09/19 08:33:00 AM EDT 7.5 MG active [facility] 0.25 ML Leuprolide Acetate 30 MG/ML Prefilled Syringe Leupro lide 12/09/2019 08:33:00 AM EDT 7.5 MG completed [facility] 0.25 ML Leuprolide Acetate 30 MG/ML Pref illed Syringe Leuprolide (Eligard) 7.5 mg (1 month) syringe Leuprolide (Eligard) 7.5 mg (1 month) syringe 12/09/19 08:33:00 AM EDT 7.5 MG active [facility] 0.25 ML Leuprolide Acetate 30 MG/ML Pref illed Syringe Leuprolide (Eligard) 7.5 mg (1 month) syringe Leuprolide (Eligard) 7.5 mg (1 month) syringe 12/09/19 08:33:00 AM EDT 7.5 MG active [facility] 0.25 ML Leuprolide Acetate 30 MG/ML Prefilled Syringe Leupro lide 12/09/2019 08:33:00 AM EDT 7.5 MG completed [facility] 0.25 ML Leuprolide Acetate 30 MG/ML Prefilled Syringe Leupro lide 12/09/2019 08:33:00 AM EDT 7.5 MG completed [facility] 0.25 ML Leuprolide Acetate 30 MG/ML Prefilled Syringe Leupro lide 12/09/2019 08:33:00 AM EDT 7.5 MG completed [facility] 0.25 ML Leuprolide Acetate 30 MG/ML Pref illed Syringe Leuprolide (Eligard) 7.5 mg (1 month) syringe Leuprolide (Eligard) 7.5 mg (1 month) syringe 12/09/19 08:33:00 AM EDT 7.5 MG active [facility] 0.25 ML Leuprolide Acetate 30 MG/ML Pref illed Syringe Leuprolide (Eligard) 7.5 mg (1 month) syringe Leuprolide (Eligard) 7.5 mg (1 month) syringe 12/09/19 08:33:00 AM EDT 7.5 MG active [facility] 0.25 ML Leuprolide Acetate 30 MG/ML Pref illed Syringe Leuprolide (Eligard) 7.5 mg (1 month) syringe Leuprolide (Eligard) 7.5 mg (1 month) syringe 04/30/20 20 08:33:00 AM EDT 7.5 MG active [facility] 0.25 ML Leuprolide Acetate 30 MG/ML Pref illed Syringe Leuprolide (Eligard) 7.5 mg (1 month) syringe Leuprolide (Eligard) 7.5 mg (1 month) syringe 12/09/19 20 08:33:00 AM EDT 7.5 MG active [facility] 0.25 ML Leuprolide Acetate 30 MG/ML Pref illed Syringe Leuprolide (Eligard) 7.5 mg (1 month) syringe Leuprolide (Eligard) 7.5 mg (1 month) syringe 12/09/19 20 08:33:00 AM EDT 7.5 MG active [facility] 25 mg 12/08/2019 12:00:00 AM EDT tablet 180 TAKE ONE TABLET BY MOUTH TWICE A DAY TAKE ONE TABLET BY MOUTH TWICE A DAY SOLD: 03/10/2020 [facility] 25 mg 12/08/2019 12:00:00 AM EDT tablet 180 TAKE ONE TABLET BY MOUTH TWICE A DAY TAKE ONE TABLET BY MOUTH TWICE A DAY SOLD: 12/15/2019 [facility] Metoprolol Tartrate 25 MG Oral Tablet Metoprolol Tartrate 12:57:43 PM EDT 25 MG completed [facility] Metoprolol Tartrate 25 MG Oral Tablet Metoprolol Tartrate 12:57:43 PM EDT 25 MG completed [facility] Metoprolol Tartrate 25 MG Oral Tablet Metoprolol Tartrate 12:57:43 PM EDT 25 MG completed [facility] Metoprolol Tartrate 25 MG Oral Tablet Metoprolol Tartrate 12:57:43 PM EDT 25 MG completed [facility] Metoprolol Tartrate 25 MG Oral Tablet Metoprolol Tartrate 12:57:43 PM EDT 25 MG completed [facility] Metoprolol Tartrate 25 MG Oral Tablet Metoprolol Tartrate 12:57:43 PM EDT 25 MG completed [facility] Metoprolol Tartrate 25 MG Oral Tablet Metoprolol Tartrate 12:57:43 PM EDT 25 MG completed [facility] Metoprolol Tartrate 25 MG Oral Tablet Metoprolol Tartrate 12:57:43 PM EDT 25 MG completed [facility] Metoprolol Tartrate 25 MG Oral Tablet Metoprolol Tartrate 12:57:43 PM EDT 25 MG completed [facility] Metoprolol Tartrate 25 MG Oral Tablet Metoprolol Tartrate 12:57:43 PM EDT 25 MG completed [facility] Metoprolol Tartrate 25 MG Oral Tablet Metoprolol Tartrate 12:57:43 PM EDT 25 MG completed [facility] Metoprolol Tartrate 25 MG Oral Tablet Metoprolol Tartrate 12:57:43 PM EDT 25 MG completed [facility] Metoprolol Tartrate 25 MG Oral Tablet Metoprolol Tartrate 12:57:43 PM EDT 25 MG active [facility] Metoprolol Tartrate 25 MG Oral Tablet Metoprolol Tartrate 12:54:06 PM EDT 25 MG completed [facility] Metoprolol Tartrate 25 MG Oral Tablet Metoprolol Tartrate 12:54:06 PM EDT 25 MG completed [facility] Metoprolol Tartrate 25 MG Oral Tablet Metoprolol Tartrate 12:54:06 PM EDT 25 MG completed [facility] Metoprolol Tartrate 25 MG Oral Tablet Metoprolol Tartrate 12:54:06 PM EDT 25 MG completed [facility] Metoprolol Tartrate 25 MG Oral Tablet Metoprolol Tartrate 12:54:06 PM EDT 25 MG completed [facility] Metoprolol Tartrate 25 MG Oral Tablet Metoprolol Tartrate 12:54:06 PM EDT 25 MG completed [facility] Metoprolol Tartrate 25 MG Oral Tablet Metoprolol Tartrate 12:54:06 PM EDT 25 MG completed [facility] Metoprolol Tartrate 25 MG Oral Tablet Metoprolol Tartrate 12:54:06 PM EDT 25 MG completed [facility] Metoprolol Tartrate 25 MG Oral Tablet Metoprolol Tartrate 12:54:06 PM EDT 25 MG completed [facility] Metoprolol Tartrate 25 MG Oral Tablet Metoprolol Tartrate 12:54:06 PM EDT 25 MG completed [facility] Metoprolol Tartrate 25 MG Oral Tablet Metoprolol Tartrate 12:54:06 PM EDT 25 MG completed [facility] Metoprolol Tartrate 25 MG Oral Tablet Metoprolol Tartrate 12:54:06 PM EDT 25 MG completed [facility] Metoprolol Tartrate 25 MG Oral Tablet Metoprolol Tartrate 12:54:06 PM EDT 25 MG completed [facility] rivaroxaban Rivaroxaban (Xarelto) 2.5 mg tablet Rivaro xaban (Xarelto) 2.5 mg tablet 12/06/2019 02:21:53 PM EDT 2.5 MG completed [facility] rivaroxaban Rivaroxaban Rivaroxaban 12/06/2019 02:21:53 PM EDT 2 .5 MG active [facility] rivaroxaban Rivaroxaban (Xarelto) 2.5 mg tablet Rivaro xaban (Xarelto) 2.5 mg tablet 12/06/2019 02:21:53 PM EDT 2.5 MG completed [facility] rivaroxaban Rivaroxaban (Xarelto) 2.5 mg tablet [facility] xaban (Xarelto) 2.5 mg tablet 12/06/2019 02:21:53 PM EDT 2.5 MG completed [facility] rivaroxaban Rivaroxaban (Xarelto) 2.5 mg tablet [facility] xaban (Xarelto) 2.5 mg tablet 12/06/2019 02:21:53 PM EDT 2.5 MG completed [facility] rivaroxaban Rivaroxaban Rivaroxaban 12/06/2019 02:21:53 PM EDT 2 .5 MG completed [facility] rivaroxaban Rivaroxaban (Xarelto) 2.5 mg tablet [facility]aro xaban (Xarelto) 2.5 mg tablet 12/06/2019 02:21:53 PM EDT 2.5 MG completed [facility] rivaroxaban Rivaroxaban Rivaroxaban 12/06/2019 02:21:53 PM EDT 2 .5 MG completed [facility] rivaroxaban Rivaroxaban (Xarelto) 2.5 mg tablet Rivaro xaban (Xarelto) 2.5 mg tablet 12/06/2019 02:21:53 PM EDT 2.5 MG completed [facility] rivaroxaban Rivaroxaban (Xarelto) 2.5 mg tablet Rivaro xaban (Xarelto) 2.5 mg tablet 12/06/2019 02:21:53 PM EDT 2.5 MG completed [facility] rivaroxaban Rivaroxaban (Xarelto) 2.5 mg tablet [facility] xaban (Xarelto) 2.5 mg tablet 12/06/2019 02:21:53 PM EDT 2.5 MG completed [facility] rivaroxaban Rivaroxaban Rivaroxaban 12/06/2019 02:21:53 PM EDT 2 .5 MG active [facility] rivaroxaban Rivaroxaban (Xarelto) 2.5 mg tablet Rivaro xaban (Xarelto) 2.5 mg tablet 12/06/2019 02:21:53 PM EDT 2.5 MG completed [facility] Metoprolol Tartrate 25 MG Oral Tablet Metoprolol Tartrate 01:47:19 PM EDT 25 MG completed [facility] Metoprolol Tartrate 25 MG Oral Tablet Metoprolol Tartrate 01:47:19 PM EDT 25 MG completed [facility] Metoprolol Tartrate 25 MG Oral Tablet Metoprolol Tartrate 01:47:19 PM EDT 25 MG completed [facility] Metoprolol Tartrate 25 MG Oral Tablet Metoprolol Tartrate 01:47:19 PM EDT 25 MG completed [facility] Metoprolol Tartrate 25 MG Oral Tablet Metoprolol Tartrate 01:47:19 PM EDT 25 MG completed [facility] Metoprolol Tartrate 25 MG Oral Tablet Metoprolol Tartrate 01:47:19 PM EDT 25 MG completed [facility] Metoprolol Tartrate 25 MG Oral Tablet Metoprolol Tartrate 01:47:19 PM EDT 25 MG completed [facility] Metoprolol Tartrate 25 MG Oral Tablet Metoprolol Tartrate 01:47:19 PM EDT 25 MG completed [facility] Metoprolol Tartrate 25 MG Oral Tablet Metoprolol Tartrate 01:47:19 PM EDT 25 MG completed [facility] Metoprolol Tartrate 25 MG Oral Tablet Metoprolol Tartrate 01:47:19 PM EDT 25 MG completed [facility] Metoprolol Tartrate 25 MG Oral Tablet Metoprolol Tartrate 01:47:19 PM EDT 25 MG completed [facility] Metoprolol Tartrate 25 MG Oral Tablet Metoprolol Tartrate 01:47:19 PM EDT 25 MG completed [facility] Metoprolol Tartrate 25 MG Oral Tablet Metoprolol Tartrate 01:47:19 PM EDT 25 MG completed [facility] Warfarin Sodium 4 MG Oral Tablet Warfarin (Coumadin) 4 mg tablet Warfarin (Coumadin) 4 mg tablet 11/23/2019 10:21:38 AM EDT 4 MG completed [facility] Warfarin Sodium 4 MG Oral Tablet Warfarin (Coumadin) 4 mg tablet Warfarin (Coumadin) 4 mg tablet 11/23/2019 10:21:38 AM EDT 4 MG completed [facility] Warfarin Sodium 4 MG Oral Tablet Warfarin (Coumadin) 4 mg tablet Warfarin (Coumadin) 4 mg tablet 11/23/2019 10:21:38 AM EDT 4 MG completed [facility] Warfarin Sodium 4 MG Oral Tablet Warfarin (Coumadin) 4 mg tablet Warfarin (Coumadin) 4 mg tablet 11/23/2019 10:21:38 AM EDT 4 MG completed [facility] Warfarin Sodium 4 MG Oral Tablet Warfarin (Coumadin) 4 mg tablet Warfarin (Coumadin) 4 mg tablet 11/23/2019 10:21:38 AM EDT 4 MG completed [facility] Warfarin Sodium 4 MG Oral Tablet Warfarin (Coumadin) 4 mg tablet Warfarin (Coumadin) 4 mg tablet 11/23/2019 10:21:38 AM EDT 4 MG completed [facility] Warfarin Sodium 4 MG Oral Tablet Warfarin 11/23/2019 10:21:38 AM EDT 4 MG completed [facility] Warfarin Sodium 4 MG Oral Tablet Warfarin (Coumadin) 4 mg tablet Warfarin (Coumadin) 4 mg tablet 11/23/2019 10:21:38 AM EDT 4 MG completed [facility] Warfarin Sodium 4 MG Oral Tablet Warfarin 11/23/2019 10:21:38 AM EDT 4 MG completed [facility] Warfarin Sodium 4 MG Oral Tablet Warfarin (Coumadin) 4 mg tablet Warfarin (Coumadin) 4 mg tablet 11/23/2019 10:21:38 AM EDT 4 MG completed [facility] Warfarin Sodium 4 MG Oral Tablet Warfarin 11/23/2019 10:21:38 AM EDT 4 MG completed [facility] Warfarin Sodium 4 MG Oral Tablet Warfarin 11/23/2019 10:21:38 AM EDT 4 MG completed [facility] Warfarin Sodium 4 MG Oral Tablet Warfarin (Coumadin) 4 mg tablet Warfarin (Coumadin) 4 mg tablet 11/23/2019 10:21:38 AM EDT 4 MG [facility] 4 mg 11/23/2019 12:00:00 AM EDT tablet 30 TAKE ONE TABLET BY MOUTH EVERY DAY TAKE ONE TABLET BY MOUTH EVERY DAY SOLD: 11/24/2019 [facility] Gemfibrozil 600 MG Oral Tablet Gemfibrozil 09/14/2019 01:21:05 PM EST 600 MG completed [facility] Gemfibrozil 600 MG Oral Tablet Gemfibrozil 09/14/2019 01:21:05 PM EST 600 MG active [facility] Gemfibrozil 600 MG Oral Tablet Gemfibrozil 09/14/2019 01:21:05 PM EST 600 MG active [facility] Gemfibrozil 600 MG Oral Tablet Gemfibrozil 09/14/2019 01:21:05 PM EST 600 MG active [facility] Gemfibrozil 600 MG Oral Tablet Gemfibrozil 09/14/2019 01:21:05 PM EST 600 MG active [facility] Gemfibrozil 600 MG Oral Tablet Gemfibrozil 09/14/2019 01:21:05 PM EST 600 MG completed [facility] Gemfibrozil 600 MG Oral Tablet Gemfibrozil 09/14/2019 01:21:05 PM EST 600 MG completed [facility] Gemfibrozil 600 MG Oral Tablet Gemfibrozil 09/14/2019 01:21:05 PM EST 600 MG completed [facility] Gemfibrozil 600 MG Oral Tablet Gemfibrozil 09/14/2019 01:21:05 PM EST 600 MG completed [facility] Gemfibrozil 600 MG Oral Tablet Gemfibrozil 09/14/2019 01:21:05 PM EST 600 MG active [facility] Gemfibrozil 600 MG Oral Tablet Gemfibrozil 09/14/2019 01:21:05 PM EST 600 MG active [facility] Gemfibrozil 600 MG Oral Tablet Gemfibrozil 09/14/2019 01:21:05 PM EST 600 MG completed [facility] Gemfibrozil 600 MG Oral Tablet Gemfibrozil 09/14/2019 01:21:05 PM EST 600 MG completed [facility] Gemfibrozil 600 MG Oral Tablet Gemfibrozil 09/14/2019 01:21:05 PM EST 600 MG active [facility] 0.5 ML pneumococcal capsular polysacchar emma type 1 vaccine 0.05 MG/ML / pneumococcal capsular polysaccharide type 10A vaccine 0.05 MG/ML / pneumococcal capsular polysaccharide type 11A vaccine 0.05 MG/ML / pneumococcal capsular polysaccharide type 12F vac pneumococcal 23-janeth ps vaccine 25 mcg/0.5 mL injection syringe pneumococcal 23-janeth ps vaccine 25 mcg/0. 5 mL injection syringe 09/14/2019 10:17:48 AM EST 0.5 ML completed [facility] 0.5 ML pneumococcal capsular polysacchar emma type 1 vaccine 0.05 MG/ML / pneumococcal capsular polysaccharide type 10A vaccine 0.05 MG/ML / pneumococcal capsular polysaccharide type 11A vaccine 0.05 MG/ML / pneumococcal capsular polysaccharide type 12F vac pneumococcal 23-janeth ps vaccine 25 mcg/0.5 mL injection syringe pneumococcal 23-janeth ps vaccine 25 mcg/0. 5 mL injection syringe 09/14/2019 10:17:48 AM EST 0.5 ML [facility] 0.5 ML pneumococcal capsular polysacchar emma type 1 vaccine 0.05 MG/ML / pneumococcal capsular polysaccharide type 10A vaccine 0.05 MG/ML / pneumococcal capsular polysaccharide type 11A vaccine 0.05 MG/ML / pneumococcal capsular polysaccharide type 12F vac pneumococcal 23-janeth ps vaccine 25 mcg/0.5 mL injection syringe pneumococcal 23-janeth ps vaccine 25 mcg/0. 5 mL injection syringe 09/14/2019 10:17:48 AM EST 0.5 ML [facility] 0.5 ML pneumococcal capsular polysacchar emma type 1 vaccine 0.05 MG/ML / pneumococcal capsular polysaccharide type 10A vaccine 0.05 MG/ML / pneumococcal capsular polysaccharide type 11A vaccine 0.05 MG/ML / pneumococcal capsular polysaccharide type 12F vac pneumococcal 23-janeth ps vaccine 25 mcg/0.5 mL injection syringe pneumococcal 23-janeth ps vaccine 25 mcg/0. 5 mL injection syringe 09/14/2019 10:17:48 AM EST 0.5 ML [facility] 0.5 ML pneumococcal capsular polysacchar emma type 1 vaccine 0.05 MG/ML / pneumococcal capsular polysaccharide type 10A vaccine 0.05 MG/ML / pneumococcal capsular polysaccharide type 11A vaccine 0.05 MG/ML / pneumococcal capsular polysaccharide type 12F vac pneumococcal 23-janeth ps vaccine 25 mcg/0.5 mL injection syringe pneumococcal 23-janeth ps vaccine 25 mcg/0. 5 mL injection syringe 09/14/2019 10:17:48 AM EST 0.5 ML [facility] 0.5 ML pneumococcal capsular polysacchar emma type 1 vaccine 0.05 MG/ML / pneumococcal capsular polysaccharide type 10A vaccine 0.05 MG/ML / pneumococcal capsular polysaccharide type 11A vaccine 0.05 MG/ML / pneumococcal capsular polysaccharide type 12F vac pneumococcal 23-janeth ps vaccine 25 mcg/0.5 mL injection syringe pneumococcal 23-janeth ps vaccine 25 mcg/0. 5 mL injection syringe 09/14/2019 10:17:48 AM EST 0.5 ML [facility] 0.5 ML pneumococcal capsular polysacchar emma type 1 vaccine 0.05 MG/ML / pneumococcal capsular polysaccharide type 10A vaccine 0.05 MG/ML / pneumococcal capsular polysaccharide type 11A vaccine 0.05 MG/ML / pneumococcal capsular polysaccharide type 12F vac pneumococcal 23-janeth ps vaccine 25 mcg/0.5 mL injection syringe pneumococcal 23-janeth ps vaccine 25 mcg/0. 5 mL injection syringe 09/14/2019 10:17:48 AM EST 0.5 ML [facility] 0.5 ML pneumococcal capsular polysacchar emma type 1 vaccine 0.05 MG/ML / pneumococcal capsular polysaccharide type 10A vaccine 0.05 MG/ML / pneumococcal capsular polysaccharide type 11A vaccine 0.05 MG/ML / pneumococcal capsular polysaccharide type 12F vac pneumococcal 23-janeth ps vaccine 25 mcg/0.5 mL injection syringe pneumococcal 23-janeth ps vaccine 25 mcg/0. 5 mL injection syringe 09/14/2019 10:17:48 AM EST 0.5 ML [facility] 0.5 ML pneumococcal capsular polysacchar emma type 1 vaccine 0.05 MG/ML / pneumococcal capsular polysaccharide type 10A vaccine 0.05 MG/ML / pneumococcal capsular polysaccharide type 11A vaccine 0.05 MG/ML / pneumococcal capsular polysaccharide type 12F vac pneumococcal 23-janeth ps vaccine 25 mcg/0.5 mL injection syringe pneumococcal 23-janeth ps vaccine 25 mcg/0. 5 mL injection syringe 09/14/2019 10:17:48 AM EST 0.5 ML [facility] 0.5 ML pneumococcal capsular polysacchar emma type 1 vaccine 0.05 MG/ML / pneumococcal capsular polysaccharide type 10A vaccine 0.05 MG/ML / pneumococcal capsular polysaccharide type 11A vaccine 0.05 MG/ML / pneumococcal capsular polysaccharide type 12F vac pneumococcal 23-janeth ps vaccine 25 mcg/0.5 mL injection syringe pneumococcal 23-janeth ps vaccine 25 mcg/0. 5 mL injection syringe 09/14/2019 10:17:48 AM EST 0.5 ML [facility] 0.5 ML pneumococcal capsular polysacchar emma type 1 vaccine 0.05 MG/ML / pneumococcal capsular polysaccharide type 10A vaccine 0.05 MG/ML / pneumococcal capsular polysaccharide type 11A vaccine 0.05 MG/ML / pneumococcal capsular polysaccharide type 12F vac pneumococcal 23-janeth ps vaccine 25 mcg/0.5 mL injection syringe pneumococcal 23-janeth ps vaccine 25 mcg/0. 5 mL injection syringe 09/14/2019 10:17:48 AM EST 0.5 ML [facility] 0.5 ML pneumococcal capsular polysacchar emma type 1 vaccine 0.05 MG/ML / pneumococcal capsular polysaccharide type 10A vaccine 0.05 MG/ML / pneumococcal capsular polysaccharide type 11A vaccine 0.05 MG/ML / pneumococcal capsular polysaccharide type 12F vac pneumococcal 23-janeth ps vaccine 25 mcg/0.5 mL injection syringe pneumococcal 23-janeth ps vaccine 25 mcg/0. 5 mL injection syringe 09/14/2019 10:17:48 AM EST 0.5 ML completed [facility] 0.5 ML pneumococcal capsular polysacchar emma type 1 vaccine 0.05 MG/ML / pneumococcal capsular polysaccharide type 10A vaccine 0.05 MG/ML / pneumococcal capsular polysaccharide type 11A vaccine 0.05 MG/ML / pneumococcal capsular polysaccharide type 12F vac pneumococcal 23-janeth ps vaccine 25 mcg/0.5 mL injection syringe pneumococcal 23-janeth ps vaccine 25 mcg/0. 5 mL injection syringe 09/14/2019 10:17:48 AM EST 0.5 ML completed [facility] 0.5 ML pneumococcal capsular polysacchar emma type 1 vaccine 0.05 MG/ML / pneumococcal capsular polysaccharide type 10A vaccine 0.05 MG/ML / pneumococcal capsular polysaccharide type 11A vaccine 0.05 MG/ML / pneumococcal capsular polysaccharide type 12F vac pneumococcal 23-janeth ps vaccine 25 mcg/0.5 mL injection syringe pneumococcal 23-janeth ps vaccine 25 mcg/0. 5 mL injection syringe 09/14/2019 10:17:48 AM EST 0.5 ML completed [facility] 5 mg 09/10/2019 12:00:00 AM EST tablet 90 TAKE ONE TABLET BY MOUTH EVERY DAY TAKE ONE TABLET BY MOUTH EVERY DAY SOLD: 12/15/2019 [facility] 5 mg 09/10/2019 12:00:00 AM EST tablet 90 TAKE ONE TABLET BY MOUTH EVERY DAY TAKE ONE TABLET BY MOUTH EVERY DAY SOLD: 09/15/2019 [facility] 600 mg 09/10/2019 12:00:00 AM EST tablet 180 TAKE ONE TABLET BY MOUTH TWICE A DAY TAKE ONE TABLET BY MOUTH TWICE A DAY SOLD: 06/09/2020 [facility] 0.4 mg 09/10/2019 12:00:00 AM EST capsule 90 TAKE ONE CAPSULE BY MOUTH EVERY DAY AFTER DINER TAKE ONE CAPSULE BY MOUTH EVERY DAY AFTER DINER SOLD: 09/15/2019 [facility] 600 mg 09/10/2019 12:00:00 AM EST tablet 180 TAKE ONE TABLET BY MOUTH TWICE A DAY TAKE ONE TABLET BY MOUTH TWICE A DAY SOLD: 09/15/2019 [facility] Finasteride 5 MG Oral Tablet FINASTERIDE 09/10/2019 12:00:00 AM EST ta blet 90 TAKE ONE TABLET BY MOUTH EVERY DAY TAKE ONE TABLET BY MOUTH EVERY DAY SOLD: 03/10/2020 [facility] Finasteride 5 MG Oral Tablet FINASTERIDE 09/10/2019 12:00:00 AM EST ta blet 90 TAKE ONE TABLET BY MOUTH EVERY DAY TAKE ONE TABLET BY MOUTH EVERY DAY SOLD: 06/09/2020 [facility] 600 mg 09/10/2019 12:00:00 AM EST tablet 180 TAKE ONE TABLET BY MOUTH TWICE A DAY TAKE ONE TABLET BY MOUTH TWICE A DAY SOLD: 12/15/2019 [facility] 0.4 mg 09/10/2019 12:00:00 AM EST capsule 90 TAKE ONE CAPSULE BY MOUTH EVERY DAY AFTER DINER TAKE ONE CAPSULE BY MOUTH EVERY DAY AFTER DINER SOLD: 12/15/2019 [facility] Calcitriol 0.59714 MG Oral Capsule 0.25 mcg CALCITRIOL 08/26/2019 12:00:00 AM EST capsule 90 TAKE ONE CAPSULE BY MOUTH EV ROBERTH DAY TAKE ONE CAPSULE BY MOUTH EVERY DAY SOLD: 08/30/2019 [facility] Calcitriol 0.06629 MG Oral Capsule 0.25 mcg CALCITRIOL 08/26/2019 12:00:00 AM EST capsule 90 TAKE ONE CAPSULE BY MOUTH EV ROBERTH DAY TAKE ONE CAPSULE BY MOUTH EVERY DAY SOLD: 11/24/2019 [facility] Calcitriol 0.50373 MG Oral Capsule 0.25 mcg CALCITRIOL 08/26/2019 12:00:00 AM EST capsule 90 TAKE ONE CAPSULE BY MOUTH EV ROBERTH DAY TAKE ONE CAPSULE BY MOUTH EVERY DAY SOLD: 02/23/2020 [facility] Calcitriol 0.55406 MG Oral Capsule Calcitriol 08/13/2019 01:23:36 PM EST 0.25 MCG active [facility] Calcitriol 0.67292 MG Oral Capsule Calcitriol 08/13/2019 01:23:36 PM EST 0.25 MCG active [facility] Calcitriol 0.33574 MG Oral Capsule Calcitriol 08/13/2019 01:23:36 PM EST 0.25 MCG active [facility] Calcitriol 0.65034 MG Oral Capsule Calcitriol 08/13/2019 01:23:36 PM EST 0.25 MCG active [facility] Calcitriol 0.86755 MG Oral Capsule Calcitriol 08/13/2019 01:23:36 PM EST 0.25 MCG completed [facility] Calcitriol 0.32460 MG Oral Capsule Calcitriol 08/13/2019 01:23:36 PM EST 0.25 MCG completed [facility] Calcitriol 0.56066 MG Oral Capsule Calcitriol 08/13/2019 01:23:36 PM EST 0.25 MCG completed [facility] Calcitriol 0.53177 MG Oral Capsule Calcitriol 08/13/2019 01:23:36 PM EST 0.25 MCG active [facility] Calcitriol 0.73150 MG Oral Capsule Calcitriol 08/13/2019 01:23:36 PM EST 0.25 MCG active [facility] Calcitriol 0.63779 MG Oral Capsule Calcitriol 08/13/2019 01:23:36 PM EST 0.25 MCG completed [facility] Calcitriol 0.71872 MG Oral Capsule Calcitriol 08/13/2019 01:23:36 PM EST 0.25 MCG active [facility] Calcitriol 0.18930 MG Oral Capsule Calcitriol 08/13/2019 01:23:36 PM EST 0.25 MCG completed [facility] Calcitriol 0.93409 MG Oral Capsule Calcitriol 08/13/2019 01:23:36 PM EST 0.25 MCG active [facility] Calcitriol 0.71635 MG Oral Capsule Calcitriol 08/13/2019 01:23:36 PM EST 0.25 MCG completed [facility] Calcitriol 0.28595 MG Oral Capsule Calcitriol 08/13/2019 01:23:36 PM EST 0.25 MCG active [facility] 0.375 ML Leuprolide Acetate 120 MG/ML Prefilled Syringe [Deepali sally] Eligard 08/02/2019 12:00:00 AM EST active [facility] [employer] [facility] [place] Eligard 6 Months 45MG 08/02/2019 12:00:00 AM EST completed [facility] [place] Medication administered onsite Albuterol Sulfate 07/19/2019 10:41:26 AM EST 2 PUFFS active [facility] Albuterol Sulfate 07/19/2019 10:41:26 AM EST 2 PUFFS completed [facility] Albuterol Sulfate 07/19/2019 10:41:26 AM EST 2 PUFFS active [facility] Albuterol Sulfate 07/19/2019 10:41:26 AM EST 2 PUFFS active [facility] Albuterol Sulfate 07/19/2019 10:41:26 AM EST 2 PUFFS completed [facility] Albuterol Sulfate 07/19/2019 10:41:26 AM EST 2 PUFFS active [facility] Albuterol Sulfate 07/19/2019 10:41:26 AM EST 2 PUFFS completed [facility] Albuterol Sulfate 07/19/2019 10:41:26 AM EST 2 PUFFS active [facility] Albuterol Sulfate 07/19/2019 10:41:26 AM EST 2 PUFFS completed [facility] Albuterol Sulfate 07/19/2019 10:41:26 AM EST 2 PUFFS active [facility] Albuterol Sulfate 07/19/2019 10:41:26 AM EST 2 PUFFS active [facility] Albuterol Sulfate 07/19/2019 10:41:26 AM EST 2 PUFFS completed [facility] Albuterol Sulfate 07/19/2019 10:41:26 AM EST 2 PUFFS completed [facility] Albuterol Sulfate 07/19/2019 10:41:26 AM EST 2 PUFFS active [facility] Albuterol Sulfate 07/19/2019 10:41:26 AM EST 2 PUFFS active [facility] Gemfibrozil 600 MG Oral Tablet Gemfibrozil 07/19/2019 10:18:49 AM EST 600 MG completed [facility] Gemfibrozil 600 MG Oral Tablet Gemfibrozil 07/19/2019 10:18:49 AM EST 600 MG completed [facility] Gemfibrozil 600 MG Oral Tablet Gemfibrozil 07/19/2019 10:18:49 AM EST 600 MG completed [facility] Gemfibrozil 600 MG Oral Tablet Gemfibrozil 07/19/2019 10:18:49 AM EST 600 MG completed [facility] Gemfibrozil 600 MG Oral Tablet Gemfibrozil 07/19/2019 10:18:49 AM EST 600 MG completed [facility] Gemfibrozil 600 MG Oral Tablet Gemfibrozil 07/19/2019 10:18:49 AM EST 600 MG active [facility] Gemfibrozil 600 MG Oral Tablet Gemfibrozil 07/19/2019 10:18:49 AM EST 600 MG completed [facility] Gemfibrozil 600 MG Oral Tablet Gemfibrozil 07/19/2019 10:18:49 AM EST 600 MG completed [facility] Gemfibrozil 600 MG Oral Tablet Gemfibrozil 07/19/2019 10:18:49 AM EST 600 MG completed [facility] Gemfibrozil 600 MG Oral Tablet Gemfibrozil 07/19/2019 10:18:49 AM EST 600 MG completed [facility] Gemfibrozil 600 MG Oral Tablet Gemfibrozil 07/19/2019 10:18:49 AM EST 600 MG completed [facility] Gemfibrozil 600 MG Oral Tablet Gemfibrozil 07/19/2019 10:18:49 AM EST 600 MG completed [facility] Gemfibrozil 600 MG Oral Tablet Gemfibrozil 07/19/2019 10:18:49 AM EST 600 MG completed [facility] Gemfibrozil 600 MG Oral Tablet Gemfibrozil 07/19/2019 10:18:49 AM EST 600 MG completed [facility] Gemfibrozil 600 MG Oral Tablet Gemfibrozil 07/19/2019 10:18:49 AM EST 600 MG completed [facility] 90 mcg/actuation 07/19/2019 12:00:00 AM EST HFA aerosol inha ler 8 INHALE TWO PUFFS BY MOUTH FOUR TIMES A DAY NEEDED FOR SHORTNESS OF BREATH OR WHEEZING INHALE TWO PUFFS BY MOUTH FOUR TIMES A DAY NEEDED FOR SHORTNESS OF BREATH OR WHEEZING SOLD: 12/15/2019 [facility] 90 mcg/actuation 07/19/2019 12:00:00 AM EST HFA aerosol inha ler 8 INHALE TWO PUFFS BY MOUTH FOUR TIMES A DAY NEEDED FOR SHORTNESS OF BREATH OR WHEEZING INHALE TWO PUFFS BY MOUTH FOUR TIMES A DAY NEEDED FOR SHORTNESS OF BREATH OR WHEEZING SOLD: 07/23/2019 [facility] 90 mcg/actuation 07/19/2019 12:00:00 AM EST HFA aerosol inha ler 8 INHALE TWO PUFFS BY MOUTH FOUR TIMES A DAY NEEDED FOR SHORTNESS OF BREATH OR WHEEZING INHALE TWO PUFFS BY MOUTH FOUR TIMES A DAY NEEDED FOR SHORTNESS OF BREATH OR WHEEZING SOLD: 11/17/2019 [facility] Calcitriol 0.74731 MG Oral Capsule 0.25 mcg CALCITRIOL 07/14/2019 12:00:00 AM EST capsule 30 TAKE ONE CAPSULE BY MOUTH EV ROBERTH DAY TAKE ONE CAPSULE BY MOUTH EVERY DAY SOLD: 07/17/2019 [facility] 40 mg 06/16/2019 12:00:00 AM EST tablet 180 TAKE ONE TABLET BY MOUTH TWICE A DAY TAKE ONE TABLET BY MOUTH TWICE A DAY SOLD: 09/15/2019 [facility] 20 mg 06/13/2019 12:00:00 AM EDT tablet 90 TAKE ONE TABLET BY MOUTH EVERY DAY TAKE ONE TABLET BY MOUTH EVERY DAY SOLD: 12/15/2019 [facility] 20 mg 06/13/2019 12:00:00 AM EDT tablet 90 TAKE ONE TABLET BY MOUTH EVERY DAY TAKE ONE TABLET BY MOUTH EVERY DAY SOLD: 09/15/2019 [facility] 20 mg 06/13/2019 12:00:00 AM EDT tablet 90 TAKE ONE TABLET BY MOUTH EVERY DAY TAKE ONE TABLET BY MOUTH EVERY DAY SOLD: 03/10/2020 [facility] 20 mg 04/22/2019 12:00:00 AM EDT capsule,delayed release (DR/EC) 90 TAKE ONE CAPSULE BY MOUTH EVERY DAY TAKE ONE CAPSULE BY MOUTH EVERY DAY SOLD: 12/15/2019 [facility] 20 mg 04/22/2019 12:00:00 AM EDT capsule,delayed release (DR/EC) 90 TAKE ONE CAPSULE BY MOUTH EVERY DAY TAKE ONE CAPSULE BY MOUTH EVERY DAY SOLD: 09/15/2019 [facility] Omeprazole 20 MG Delayed Release Oral Capsule Omeprazole 04/20/2019 11:12:27 AM EDT 20 MG completed [facility] Omeprazole 20 MG Delayed Release Oral Capsule Omeprazole 04/20/2019 11:12:27 AM EDT 20 MG completed [facility] Omeprazole 20 MG Delayed Release Oral Capsule Omeprazole 04/20/2019 11:12:27 AM EDT 20 MG completed [facility] Omeprazole 20 MG Delayed Release Oral Capsule Omeprazole 04/20/2019 11:12:27 AM EDT 20 MG completed [facility] Omeprazole 20 MG Delayed Release Oral Capsule Omeprazole 04/20/2019 11:12:27 AM EDT 20 MG completed [facility] Omeprazole 20 MG Delayed Release Oral Capsule Omeprazole 04/20/2019 11:12:27 AM EDT 20 MG completed [facility] Omeprazole 20 MG Delayed Release Oral Capsule Omeprazole 04/20/2019 11:12:27 AM EDT 20 MG completed [facility] Omeprazole 20 MG Delayed Release Oral Capsule Omeprazole 04/20/2019 11:12:27 AM EDT 20 MG completed [facility] Omeprazole 20 MG Delayed Release Oral Capsule Omeprazole 04/20/2019 11:12:27 AM EDT 20 MG completed [facility] Warfarin Sodium 3 MG Oral Tablet Warfarin 04/20/2019 10:44:19 AM EDT 3 MG completed [facility] Warfarin Sodium 3 MG Oral Tablet Warfarin 04/20/2019 10:44:19 AM EDT 3 MG completed [facility] Warfarin Sodium 3 MG Oral Tablet Warfarin 04/20/2019 10:44:19 AM EDT 3 MG completed [facility] Warfarin Sodium 3 MG Oral Tablet Warfarin 04/20/2019 10:44:19 AM EDT 3 MG completed [facility] Warfarin Sodium 3 MG Oral Tablet Warfarin 04/20/2019 10:44:19 AM EDT 3 MG completed [facility] Warfarin Sodium 3 MG Oral Tablet Warfarin 04/20/2019 10:44:19 AM EDT 3 MG completed [facility] Warfarin Sodium 3 MG Oral Tablet Warfarin 04/20/2019 10:44:19 AM EDT 3 MG [facility] Warfarin Sodium 3 MG Oral Tablet Warfarin 04/20/2019 10:44:19 AM EDT 3 MG completed [facility] Warfarin Sodium 3 MG Oral Tablet Warfarin 04/20/2019 10:44:19 AM EDT 3 MG completed [facility] Warfarin Sodium 3 MG Oral Tablet Warfarin 04/20/2019 10:44:19 AM EDT 3 MG completed [facility] Warfarin Sodium 3 MG Oral Tablet Warfarin 04/20/2019 10:44:19 AM EDT 3 MG completed [facility] Warfarin Sodium 3 MG Oral Tablet Warfarin 04/20/2019 10:44:19 AM EDT 3 MG completed [facility] Warfarin Sodium 3 MG Oral Tablet Warfarin 04/20/2019 10:44:19 AM EDT 3 MG completed [facility] Rosuvastatin calcium 20 MG Oral Tablet Rosuvastatin (C restor) 20 mg tablet Rosuvastatin (Crestor) 20 mg tablet 04/20/2019 10:43:40 AM EDT 20 MG completed [facility] Rosuvastatin calcium 20 MG Oral Tablet Rosuvastatin (C restor) 20 mg tablet Rosuvastatin (Crestor) 20 mg tablet 04/20/2019 10:43:40 AM EDT 20 MG completed [facility] Rosuvastatin calcium 20 MG Oral Tablet Rosuvastatin (C restor) 20 mg tablet Rosuvastatin (Crestor) 20 mg tablet 04/20/2019 10:43:40 AM EDT 20 MG completed [facility] Rosuvastatin calcium 20 MG Oral Tablet Rosuvastatin (C restor) 20 mg tablet Rosuvastatin (Crestor) 20 mg tablet 04/20/2019 10:43:40 AM EDT 20 MG completed [facility] Rosuvastatin calcium 20 MG Oral Tablet Rosuvastatin (C restor) 20 mg tablet Rosuvastatin (Crestor) 20 mg tablet 04/20/2019 10:43:40 AM EDT 20 MG completed [facility] Rosuvastatin calcium 20 MG Oral Tablet Rosuvastatin (C restor) 20 mg tablet Rosuvastatin (Crestor) 20 mg tablet 04/20/2019 10:43:40 AM EDT 20 MG completed [facility] Rosuvastatin calcium 20 MG Oral Tablet Rosuvastatin (C restor) 20 mg tablet Rosuvastatin (Crestor) 20 mg tablet 04/20/2019 10:43:40 AM EDT 20 MG completed [facility] Furosemide 40 MG Oral Tablet [Lasix] Furosemide (Lasix ) 40 mg tablet Furosemide (Lasix) 40 mg tablet 04/20/2019 10:43:21 AM EDT 40 MG co mpleted [facility] Furosemide 40 MG Oral Tablet [Lasix] Furosemide (Lasix ) 40 mg tablet Furosemide (Lasix) 40 mg tablet 04/20/2019 10:43:21 AM EDT 40 MG co mpleted [facility] Furosemide 40 MG Oral Tablet [Lasix] Furosemide (Lasix ) 40 mg tablet Furosemide (Lasix) 40 mg tablet 04/20/2019 10:43:21 AM EDT 40 MG co mpleted [facility] Furosemide 40 MG Oral Tablet [Lasix] Furosemide (Lasix ) 40 mg tablet Furosemide (Lasix) 40 mg tablet 04/20/2019 10:43:21 AM EDT 40 MG co mpleted [facility] Furosemide 40 MG Oral Tablet [Lasix] Furosemide (Lasix ) 40 mg tablet Furosemide (Lasix) 40 mg tablet 04/20/2019 10:43:21 AM EDT 40 MG co mpleted [facility] Furosemide 40 MG Oral Tablet [Lasix] Furosemide (Lasix ) 40 mg tablet Furosemide (Lasix) 40 mg tablet 04/20/2019 10:43:21 AM EDT 40 MG co mpleted [facility] Furosemide 40 MG Oral Tablet [Lasix] Furosemide (Lasix ) 40 mg tablet Furosemide (Lasix) 40 mg tablet 04/20/2019 10:43:21 AM EDT 40 MG co mpleted [facility] Furosemide 40 MG Oral Tablet [Lasix] Furosemide (Lasix ) 40 mg tablet Furosemide (Lasix) 40 mg tablet 04/20/2019 10:43:21 AM EDT 40 MG co mpleted [facility] Furosemide 40 MG Oral Tablet [Lasix] Furosemide (Lasix ) 40 mg tablet Furosemide (Lasix) 40 mg tablet 04/20/2019 10:43:21 AM EDT 40 MG co mpleted [facility] Furosemide 40 MG Oral Tablet [Lasix] Furosemide 04/20/2019 10:43: 21 AM EDT 40 MG completed [facility] Furosemide 40 MG Oral Tablet [Lasix] Furosemide 04/20/2019 10:43: 21 AM EDT 40 MG [facility] 3 mg 04/20/2019 12:00:00 AM EDT tablet 90 TAKE ONE TABLET BY MOUTH EVERY DAY ADJUSTING DOSE NEEDED DEPENDING ON INR RESULTS TAKE ONE TABLET BY MOUTH EVERY DAY ADJUSTING DOSE NEEDED DEPENDING ON INR RESULTS SOLD: 10/27/2019 [facility] 3 mg 04/20/2019 12:00:00 AM EDT tablet 90 TAKE ONE TABLET BY MOUTH EVERY DAY ADJUSTING DOSE NEEDED DEPENDING ON INR RESULTS TAKE ONE TABLET BY MOUTH EVERY DAY ADJUSTING DOSE NEEDED DEPENDING ON INR RESULTS SOLD: 07/29/2019 [facility] 1 mg 03/25/2019 12:00:00 AM EDT tablet 90 TAKE ONE TABLET BY MOUTH EVERY DAY TAKE ONE TABLET BY MOUTH EVERY DAY SOLD: 09/15/2019 [facility] 1 mg 03/25/2019 12:00:00 AM EDT tablet 90 TAKE ONE TABLET BY MOUTH EVERY DAY TAKE ONE TABLET BY MOUTH EVERY DAY SOLD: 12/15/2019 [facility] Folic Acid 1 MG Oral Tablet Folic Acid 03/24/2019 04:54:55 PM EDT 1 MG completed [facility] Folic Acid 1 MG Oral Tablet Folic Acid 03/24/2019 04:54:55 PM EDT 1 MG completed [facility] Folic Acid 1 MG Oral Tablet Folic Acid 03/24/2019 04:54:55 PM EDT 1 MG completed [facility] Folic Acid 1 MG Oral Tablet Folic Acid 03/24/2019 04:54:55 PM EDT 1 MG completed [facility] Folic Acid 1 MG Oral Tablet Folic Acid 03/24/2019 04:54:55 PM EDT 1 MG completed [facility] Folic Acid 1 MG Oral Tablet Folic Acid 03/24/2019 04:54:55 PM EDT 1 MG [facility] Folic Acid 1 MG Oral Tablet Folic Acid 03/24/2019 04:54:55 PM EDT 1 MG [facility] Folic Acid 1 MG Oral Tablet Folic Acid 03/24/2019 04:54:55 PM EDT 1 MG [facility] Folic Acid 1 MG Oral Tablet Folic Acid 03/24/2019 04:54:55 PM EDT 1 MG [facility] 100 mg 03/15/2019 12:00:00 AM EDT tablet 90 TAKE ONE TABLET BY MOUTH EVERY DAY TAKE ONE TABLET BY MOUTH EVERY DAY SOLD: 09/15/2019 [facility] 5 mg 03/15/2019 12:00:00 AM EDT tablet 90 TAKE ONE TABLET BY MOUTH EVERY DAY TAKE ONE TABLET BY MOUTH EVERY DAY SOLD: 09/15/2019 [facility] 5 mg 03/15/2019 12:00:00 AM EDT tablet 90 TAKE ONE TABLET BY MOUTH EVERY DAY TAKE ONE TABLET BY MOUTH EVERY DAY SOLD: 12/15/2019 [facility] 324 mg (38 mg iron) 03/15/2019 12:00:00 AM EDT tablet 90 TAKE ONE TABLET BY MOUTH EVERY DAY TAKE ONE TABLET BY MOUTH EVERY DAY SOLD: 12/15/2019 [facility] 324 mg (38 mg iron) 03/15/2019 12:00:00 AM EDT tablet 90 TAKE ONE TABLET BY MOUTH EVERY DAY TAKE ONE TABLET BY MOUTH EVERY DAY SOLD: 09/15/2019 [facility] 100 mg 03/15/2019 12:00:00 AM EDT tablet 90 TAKE ONE TABLET BY MOUTH EVERY DAY TAKE ONE TABLET BY MOUTH EVERY DAY SOLD: 12/15/2019 [facility] Warfarin Sodium 1 MG Oral Tablet Warfarin 02/10/2019 12:41:32 PM EDT 1 MG completed [facility] Warfarin Sodium 1 MG Oral Tablet Warfarin 02/10/2019 12:41:32 PM EDT 1 MG completed [facility] Warfarin Sodium 1 MG Oral Tablet Warfarin 02/10/2019 12:41:32 PM EDT 1 MG completed [facility] Warfarin Sodium 1 MG Oral Tablet Warfarin 02/10/2019 12:41:32 PM EDT 1 MG completed [facility] Warfarin Sodium 1 MG Oral Tablet Warfarin 02/10/2019 12:41:32 PM EDT 1 MG [facility] Warfarin Sodium 1 MG Oral Tablet Warfarin 02/10/2019 12:41:32 PM EDT 1 MG [facility] Warfarin Sodium 1 MG Oral Tablet Warfarin 02/10/2019 12:41:32 PM EDT 1 MG [facility] Warfarin Sodium 1 MG Oral Tablet Warfarin 02/10/2019 12:41:32 PM EDT 1 MG [facility] Warfarin Sodium 1 MG Oral Tablet Warfarin 02/10/2019 12:41:32 PM EDT 1 MG [facility] Warfarin Sodium 1 MG Oral Tablet Warfarin 02/10/2019 12:41:32 PM EDT 1 MG [facility] Warfarin Sodium 1 MG Oral Tablet Warfarin 02/10/2019 12:41:32 PM EDT 1 MG completed [facility] Warfarin Sodium 1 MG Oral Tablet Warfarin 02/10/2019 12:41:32 PM EDT 1 MG completed [facility] Warfarin Sodium 1 MG Oral Tablet Warfarin 02/10/2019 12:41:32 PM EDT 1 MG completed [facility] Warfarin Sodium 1 MG Oral Tablet Warfarin 02/10/2019 12:41:32 PM EDT 1 MG completed [facility] Warfarin Sodium 2.5 MG Oral Tablet Warfarin 02/10/2019 12:38:59 PM EDT 2.5 MG [facility] Warfarin Sodium 2.5 MG Oral Tablet Warfarin 02/10/2019 12:38:59 PM EDT 2.5 MG completed [facility] Warfarin Sodium 2.5 MG Oral Tablet Warfarin 02/10/2019 12:38:59 PM EDT 2.5 MG completed [facility] Warfarin Sodium 2.5 MG Oral Tablet Warfarin 02/10/2019 12:38:59 PM EDT 2.5 MG completed [facility] Warfarin Sodium 2.5 MG Oral Tablet Warfarin 02/10/2019 12:38:59 PM EDT 2.5 MG completed [facility] Warfarin Sodium 2.5 MG Oral Tablet Warfarin 02/10/2019 12:38:59 PM EDT 2.5 MG completed [facility] Warfarin Sodium 2.5 MG Oral Tablet Warfarin 02/10/2019 12:38:59 PM EDT 2.5 MG completed [facility] Warfarin Sodium 2.5 MG Oral Tablet Warfarin 02/10/2019 12:38:59 PM EDT 2.5 MG completed [facility] Warfarin Sodium 2.5 MG Oral Tablet Warfarin 02/10/2019 12:38:59 PM EDT 2.5 MG completed [facility] Warfarin Sodium 2.5 MG Oral Tablet Warfarin 02/10/2019 12:38:59 PM EDT 2.5 MG completed [facility] Warfarin Sodium 2.5 MG Oral Tablet Warfarin 02/10/2019 12:38:59 PM EDT 2.5 MG completed [facility] Warfarin Sodium 2.5 MG Oral Tablet Warfarin 02/10/2019 12:38:59 PM EDT 2.5 MG completed [facility] Warfarin Sodium 2.5 MG Oral Tablet Warfarin 02/10/2019 12:38:59 PM EDT 2.5 MG completed [facility] Warfarin Sodium 2.5 MG Oral Tablet Warfarin 02/10/2019 12:38:59 PM EDT 2.5 MG completed [facility] Allopurinol 100 MG Oral Tablet Allopurinol 12/28/2018 02:13:41 PM EDT 0 completed [facility] Allopurinol 100 MG Oral Tablet Allopurinol 12/28/2018 02:13:41 PM EDT 0 completed [facility] Allopurinol 100 MG Oral Tablet Allopurinol 12/28/2018 02:13:41 PM EDT 0 completed [facility] Allopurinol 100 MG Oral Tablet Allopurinol 12/28/2018 02:13:41 PM EDT 0 completed [facility] Allopurinol 100 MG Oral Tablet Allopurinol 12/28/2018 02:13:41 PM EDT 0 completed [facility] Allopurinol 100 MG Oral Tablet Allopurinol 12/28/2018 02:13:41 PM EDT 0 completed [facility] Allopurinol 100 MG Oral Tablet Allopurinol 12/28/2018 02:13:41 PM EDT 0 completed [facility] Allopurinol 100 MG Oral Tablet Allopurinol 12/28/2018 02:13:41 PM EDT 0 completed [facility] Allopurinol 100 MG Oral Tablet Allopurinol 12/28/2018 02:13:41 PM EDT 0 completed [facility] Allopurinol 100 MG Oral Tablet Allopurinol 12/28/2018 02:13:41 PM EDT 0 completed [facility] Allopurinol 100 MG Oral Tablet Allopurinol 12/28/2018 02:13:41 PM EDT 0 completed [facility] Allopurinol 100 MG Oral Tablet Allopurinol 12/28/2018 02:13:41 PM EDT 0 [facility] ferrous gluconate 324 MG Oral Tablet Ferrous Gluconate Nerissa us Gluconate 12/28/2018 02:12:59 PM EDT 0 [facility] ferrous gluconate 324 MG Oral Tablet Ferrous Gluconate Nerissa us Gluconate 12/28/2018 02:12:59 PM EDT 0 [facility] ferrous gluconate 324 MG Oral Tablet Ferrous Gluconate Nerissa us Gluconate 12/28/2018 02:12:59 PM EDT 0 [facility] ferrous gluconate 324 MG Oral Tablet Ferrous Gluconate Nerissa us Gluconate 12/28/2018 02:12:59 PM EDT 0 [facility] ferrous gluconate 324 MG Oral Tablet Ferrous Gluconate Nerissa us Gluconate 12/28/2018 02:12:59 PM EDT 0 completed [facility] ferrous gluconate 324 MG Oral Tablet Ferrous Gluconate Nerissa us Gluconate 12/28/2018 02:12:59 PM EDT 0 [facility] ferrous gluconate 324 MG Oral Tablet Ferrous Gluconate Nerissa us Gluconate 12/28/2018 02:12:59 PM EDT 0 [facility] ferrous gluconate 324 MG Oral Tablet Ferrous Gluconate Nerissa us Gluconate 12/28/2018 02:12:59 PM EDT 0 completed [facility] ferrous gluconate 324 MG Oral Tablet Ferrous Gluconate Nerissa us Gluconate 12/28/2018 02:12:59 PM EDT 0 completed [facility] ferrous gluconate 324 MG Oral Tablet Ferrous Gluconate Nerissa us Gluconate 12/28/2018 02:12:59 PM EDT 0 completed [facility] ferrous gluconate 324 MG Oral Tablet Ferrous Gluconate Nerissa us Gluconate 12/28/2018 02:12:59 PM EDT 0 completed [facility] ferrous gluconate 324 MG Oral Tablet Ferrous Gluconate Nerissa us Gluconate 12/28/2018 02:12:59 PM EDT 0 completed [facility] Metoprolol Tartrate 25 MG Oral Tablet Metoprolol Tartrate 02:12:09 PM EDT 0 completed [facility] Metoprolol Tartrate 25 MG Oral Tablet Metoprolol Tartrate 02:12:09 PM EDT 0 completed [facility] Metoprolol Tartrate 25 MG Oral Tablet Metoprolol Tartrate 02:12:09 PM EDT 0 completed [facility] Metoprolol Tartrate 25 MG Oral Tablet Metoprolol Tartrate 02:12:09 PM EDT 0 completed [facility] Metoprolol Tartrate 25 MG Oral Tablet Metoprolol Tartrate 02:12:09 PM EDT 0 completed [facility] Metoprolol Tartrate 25 MG Oral Tablet Metoprolol Tartrate 02:12:09 PM EDT 0 completed [facility] Metoprolol Tartrate 25 MG Oral Tablet Metoprolol Tartrate 02:12:09 PM EDT 0 completed [facility] Metoprolol Tartrate 25 MG Oral Tablet Metoprolol Tartrate 02:12:09 PM EDT 0 completed [facility] Metoprolol Tartrate 25 MG Oral Tablet Metoprolol Tartrate 02:12:09 PM EDT 0 completed [facility] Metoprolol Tartrate 25 MG Oral Tablet Metoprolol Tartrate 02:12:09 PM EDT 0 completed [facility] Metoprolol Tartrate 25 MG Oral Tablet Metoprolol Tartrate 02:12:09 PM EDT 0 completed [facility] Metoprolol Tartrate 25 MG Oral Tablet Metoprolol Tartrate 02:12:09 PM EDT 0 completed [facility] Metoprolol Tartrate 25 MG Oral Tablet Metoprolol Tartrate 02:12:09 PM EDT 0 completed [facility] Lisinopril 5 MG Oral Tablet Lisinopril 12/28/2018 02:10:26 PM EDT 0 completed [facility] Lisinopril 5 MG Oral Tablet Lisinopril 12/28/2018 02:10:26 PM EDT 0 completed [facility] Lisinopril 5 MG Oral Tablet Lisinopril 12/28/2018 02:10:26 PM EDT 0 completed [facility] Lisinopril 5 MG Oral Tablet Lisinopril 12/28/2018 02:10:26 PM EDT 0 completed [facility] Lisinopril 5 MG Oral Tablet Lisinopril 12/28/2018 02:10:26 PM EDT 0 completed [facility] Lisinopril 5 MG Oral Tablet Lisinopril 12/28/2018 02:10:26 PM EDT 0 completed [facility] Lisinopril 5 MG Oral Tablet Lisinopril 12/28/2018 02:10:26 PM EDT 0 completed [facility] Lisinopril 5 MG Oral Tablet Lisinopril 12/28/2018 02:10:26 PM EDT 0 completed [facility] Lisinopril 5 MG Oral Tablet Lisinopril 12/28/2018 02:10:26 PM EDT 0 completed [facility] Lisinopril 5 MG Oral Tablet Lisinopril 12/28/2018 02:10:26 PM EDT 0 completed [facility] Lisinopril 5 MG Oral Tablet Lisinopril 12/28/2018 02:10:26 PM EDT 0 completed [facility] Lisinopril 5 MG Oral Tablet Lisinopril 12/28/2018 02:10:26 PM EDT 0 completed [facility] Warfarin Sodium 2 MG Oral Tablet Warfarin 11/25/2018 08:12:00 AM EDT 2 MG completed [facility] Warfarin Sodium 2 MG Oral Tablet Warfarin 11/25/2018 08:12:00 AM EDT 2 MG completed [facility] Warfarin Sodium 2 MG Oral Tablet Warfarin 11/25/2018 08:12:00 AM EDT 2 MG completed [facility] Warfarin Sodium 2 MG Oral Tablet Warfarin 11/25/2018 08:12:00 AM EDT 2 MG completed [facility] Warfarin Sodium 2 MG Oral Tablet Warfarin 11/25/2018 08:12:00 AM EDT 2 MG completed [facility] Warfarin Sodium 2 MG Oral Tablet Warfarin 11/25/2018 08:12:00 AM EDT 2 MG completed [facility] Warfarin Sodium 2 MG Oral Tablet Warfarin 11/25/2018 08:12:00 AM EDT 2 MG completed [facility] Warfarin Sodium 2 MG Oral Tablet Warfarin 11/25/2018 08:12:00 AM EDT 2 MG completed [facility] Warfarin Sodium 2 MG Oral Tablet Warfarin 11/25/2018 08:12:00 AM EDT 2 MG completed [facility] Warfarin Sodium 2 MG Oral Tablet Warfarin 11/25/2018 08:12:00 AM EDT 2 MG completed [facility] Warfarin Sodium 2 MG Oral Tablet Warfarin 11/25/2018 08:12:00 AM EDT 2 MG completed [facility] Warfarin Sodium 2 MG Oral Tablet Warfarin 11/25/2018 08:12:00 AM EDT 2 MG completed [facility] Warfarin Sodium 2 MG Oral Tablet Warfarin 11/25/2018 08:12:00 AM EDT 2 MG completed [facility] 2 mg 11/20/2018 12:00:00 AM EDT tablet 60 TAKE 1 & 1/2 TABLETS (3MG) ON FRIDAY, FRIDAY, FRIDAY AND 1 TABLET (2MG) ON FRIDAY, FRIDAY, FRIDAY AND FRIDAY TAKE 1 & 1/2 TABLETS (3MG) ON FRIDAY, , FRIDAY AND 1 TABLET (2MG) ON FRIDAY, FRIDAY, FRIDAY AND FRIDAY SOLD: 11/07/2019 [facility] Metoprolol Tartrate 25 MG Oral Tablet Metoprolol Tartrate 11:05:00 AM EST 25 MG completed [facility] Metoprolol Tartrate 25 MG Oral Tablet Metoprolol Tartrate 11:05:00 AM EST 25 MG completed [facility] Metoprolol Tartrate 25 MG Oral Tablet Metoprolol Tartrate 11:05:00 AM EST 25 MG completed [facility] Metoprolol Tartrate 25 MG Oral Tablet Metoprolol Tartrate 11:05:00 AM EST 25 MG completed [facility] Metoprolol Tartrate 25 MG Oral Tablet Metoprolol Tartrate 11:05:00 AM EST 25 MG completed [facility] Metoprolol Tartrate 25 MG Oral Tablet Metoprolol Tartrate 11:05:00 AM EST 25 MG completed [facility] Metoprolol Tartrate 25 MG Oral Tablet Metoprolol Tartrate 11:05:00 AM EST 25 MG completed [facility] Metoprolol Tartrate 25 MG Oral Tablet Metoprolol Tartrate 11:05:00 AM EST 25 MG completed [facility] Metoprolol Tartrate 25 MG Oral Tablet Metoprolol Tartrate 11:05:00 AM EST 25 MG completed [facility] Metoprolol Tartrate 25 MG Oral Tablet Metoprolol Tartrate 11:05:00 AM EST 25 MG completed [facility] Metoprolol Tartrate 25 MG Oral Tablet Metoprolol Tartrate 11:05:00 AM EST 25 MG completed [facility] Metoprolol Tartrate 25 MG Oral Tablet Metoprolol Tartrate 11:05:00 AM EST 25 MG completed [facility] Metoprolol Tartrate 25 MG Oral Tablet Metoprolol Tartrate 11:05:00 AM EST 25 MG completed [facility] Gemfibrozil 600 MG Oral Tablet Gemfibrozil 09/18/2018 01:47:00 PM EST 1 TAB completed [facility] Gemfibrozil 600 MG Oral Tablet Gemfibrozil 09/18/2018 01:47:00 PM EST 1 TAB completed [facility] Gemfibrozil 600 MG Oral Tablet Gemfibrozil 09/18/2018 01:47:00 PM EST 1 TAB completed [facility] Gemfibrozil 600 MG Oral Tablet Gemfibrozil 09/18/2018 01:47:00 PM EST 1 TAB completed [facility] Gemfibrozil 600 MG Oral Tablet Gemfibrozil 09/18/2018 01:47:00 PM EST 1 TAB completed [facility] Gemfibrozil 600 MG Oral Tablet Gemfibrozil 09/18/2018 01:47:00 PM EST 1 TAB completed [facility] Gemfibrozil 600 MG Oral Tablet Gemfibrozil 09/18/2018 01:47:00 PM EST 1 TAB completed [facility] Gemfibrozil 600 MG Oral Tablet Gemfibrozil 09/18/2018 01:47:00 PM EST 1 TAB completed [facility] Gemfibrozil 600 MG Oral Tablet Gemfibrozil 09/18/2018 01:47:00 PM EST 1 TAB completed [facility] Gemfibrozil 600 MG Oral Tablet Gemfibrozil 09/18/2018 01:47:00 PM EST 1 TAB completed [facility] Gemfibrozil 600 MG Oral Tablet Gemfibrozil 09/18/2018 01:47:00 PM EST 1 TAB completed [facility] Gemfibrozil 600 MG Oral Tablet Gemfibrozil 09/18/2018 01:47:00 PM EST 1 TAB completed [facility] Gemfibrozil 600 MG Oral Tablet Gemfibrozil 09/18/2018 01:47:00 PM EST 1 TAB completed [facility] Gemfibrozil 600 MG Oral Tablet Gemfibrozil 09/18/2018 01:47:00 PM EST 1 TAB completed [facility] Gemfibrozil 600 MG Oral Tablet Gemfibrozil 09/18/2018 01:47:00 PM EST 1 TAB completed [facility] Cholecalciferol 36631 UNT Oral Capsule Cholecalciferol (Vitamin D3) Cholecalciferol (Vitamin D3) 05/19/2018 09:27:00 AM EDT 1 CAP completed [facility] Cholecalciferol 37503 UNT Oral Capsule Cholecalciferol (Vitamin D3) Cholecalciferol (Vitamin D3) 05/19/2018 09:27:00 AM EDT 1 CAP completed [facility] Cholecalciferol 62786 UNT Oral Capsule Cholecalciferol (Vitamin D3) Cholecalciferol (Vitamin D3) 05/19/2018 09:27:00 AM EDT 1 CAP completed [facility] Cholecalciferol 97641 UNT Oral Capsule Cholecalciferol (Vitamin D3) Cholecalciferol (Vitamin D3) 05/19/2018 09:27:00 AM EDT 1 CAP completed [facility] Cholecalciferol 16051 UNT Oral Capsule Cholecalciferol (Vitamin D3) Cholecalciferol (Vitamin D3) 05/19/2018 09:27:00 AM EDT 1 CAP completed [facility] Cholecalciferol 33352 UNT Oral Capsule Cholecalciferol (Vitamin D3) Cholecalciferol (Vitamin D3) 05/19/2018 09:27:00 AM EDT 1 CAP [facility] Cholecalciferol 48525 UNT Oral Capsule Cholecalciferol (Vitamin D3) Cholecalciferol (Vitamin D3) 05/19/2018 09:27:00 AM EDT 1 CAP [facility] Cholecalciferol 26437 UNT Oral Capsule Cholecalciferol (Vitamin D3) Cholecalciferol (Vitamin D3) 05/19/2018 09:27:00 AM EDT 1 CAP completed [facility] Cholecalciferol 17288 UNT Oral Capsule Cholecalciferol (Vitamin D3) Cholecalciferol (Vitamin D3) 05/19/2018 09:27:00 AM EDT 1 CAP completed [facility] Cholecalciferol 11807 UNT Oral Capsule Cholecalciferol (Vitamin D3) Cholecalciferol (Vitamin D3) 05/19/2018 09:27:00 AM EDT 1 CAP [facility] Cholecalciferol 66459 UNT Oral Capsule Cholecalciferol (Vitamin D3) Cholecalciferol (Vitamin D3) 05/19/2018 09:27:00 AM EDT 1 CAP completed [facility] Cholecalciferol 63185 UNT Oral Capsule Cholecalciferol (Vitamin D3) Cholecalciferol (Vitamin D3) 05/19/2018 09:27:00 AM EDT 1 CAP completed [facility] Cholecalciferol 15170 UNT Oral Capsule Cholecalciferol (Vitamin D3) Cholecalciferol (Vitamin D3) 05/19/2018 09:27:00 AM EDT 1 CAP completed [facility] Colchicine 0.6 MG Oral Tablet Colchicine (Colcrys) 0.6 MG tablet Colchicine (Colcrys) 0.6 MG tablet 05/19/2018 09:21:00 AM EDT 0.6 MG completed [facility] Colchicine 0.6 MG Oral Tablet Colchicine 05/19/2018 09:21:00 AM EDT 0.6 MG completed [facility] Colchicine 0.6 MG Oral Tablet Colchicine 05/19/2018 09:21:00 AM EDT 0.6 MG completed [facility] Colchicine 0.6 MG Oral Tablet Colchicine (Colcrys) 0.6 MG tablet Colchicine (Colcrys) 0.6 MG tablet 05/19/2018 09:21:00 AM EDT 0.6 MG completed [facility] Colchicine 0.6 MG Oral Tablet Colchicine (Colcrys) 0.6 MG tablet Colchicine (Colcrys) 0.6 MG tablet 05/19/2018 09:21:00 AM EDT 0.6 MG completed [facility] Colchicine 0.6 MG Oral Tablet Colchicine (Colcrys) 0.6 MG tablet Colchicine (Colcrys) 0.6 MG tablet 05/19/2018 09:21:00 AM EDT 0.6 MG completed [facility] Colchicine 0.6 MG Oral Tablet Colchicine 05/19/2018 09:21:00 AM EDT 0.6 MG completed [facility] Colchicine 0.6 MG Oral Tablet Colchicine (Colcrys) 0.6 MG tablet Colchicine (Colcrys) 0.6 MG tablet 05/19/2018 09:21:00 AM EDT 0.6 MG completed [facility] Colchicine 0.6 MG Oral Tablet Colchicine (Colcrys) 0.6 MG tablet Colchicine (Colcrys) 0.6 MG tablet 05/19/2018 09:21:00 AM EDT 0.6 MG completed [facility] Colchicine 0.6 MG Oral Tablet Colchicine (Colcrys) 0.6 MG tablet Colchicine (Colcrys) 0.6 MG tablet 05/19/2018 09:21:00 AM EDT 0.6 MG completed [facility] Colchicine 0.6 MG Oral Tablet Colchicine (Colcrys) 0.6 MG tablet Colchicine (Colcrys) 0.6 MG tablet 05/19/2018 09:21:00 AM EDT 0.6 MG completed [facility] Colchicine 0.6 MG Oral Tablet Colchicine (Colcrys) 0.6 MG tablet Colchicine (Colcrys) 0.6 MG tablet 05/19/2018 09:21:00 AM EDT 0.6 MG completed [facility] Digoxin 0.125 MG Oral Tablet Digoxin 01/08/2018 04:24:00 PM EDT 1 TAB completed [facility] Digoxin 0.125 MG Oral Tablet Digoxin 01/08/2018 04:24:00 PM EDT 1 TAB completed [facility] Digoxin 0.125 MG Oral Tablet Digoxin 01/08/2018 04:24:00 PM EDT 1 TAB completed [facility] Digoxin 0.125 MG Oral Tablet Digoxin 01/08/2018 04:24:00 PM EDT 1 TAB completed [facility] Digoxin 0.125 MG Oral Tablet Digoxin 01/08/2018 04:24:00 PM EDT 1 TAB completed [facility] Digoxin 0.125 MG Oral Tablet Digoxin 01/08/2018 04:24:00 PM EDT 1 TAB completed [facility] Digoxin 0.125 MG Oral Tablet Digoxin 01/08/2018 04:24:00 PM EDT 1 TAB completed [facility] Digoxin 0.125 MG Oral Tablet Digoxin 01/08/2018 04:24:00 PM EDT 1 TAB completed [facility] Digoxin 0.125 MG Oral Tablet Digoxin 01/08/2018 04:24:00 PM EDT 1 TAB completed [facility] Digoxin 0.125 MG Oral Tablet Digoxin 01/08/2018 04:24:00 PM EDT 1 TAB completed [facility] Digoxin 0.125 MG Oral Tablet Digoxin 01/08/2018 04:24:00 PM EDT 1 TAB completed [facility] Digoxin 0.125 MG Oral Tablet Digoxin 01/08/2018 04:24:00 PM EDT 1 TAB completed [facility] Digoxin 0.125 MG Oral Tablet Digoxin 01/08/2018 04:24:00 PM EDT 1 TAB completed [facility] Ipratropium Vonore 05/19/2017 04:52:00 PM EDT 2 SPRAYS completed [facility] Ipratropium Vonore 05/19/2017 04:52:00 PM EDT 2 SPRAYS completed [facility] Ipratropium [place]ore 05/19/2017 04:52:00 PM EDT 2 SPRAYS completed [facility] Ipratropium [place]ore 05/19/2017 04:52:00 PM EDT 2 SPRAYS completed [facility] Ipratropium [place]ore 05/19/2017 04:52:00 PM EDT 2 SPRAYS completed [facility] Ipratropium [place] 05/19/2017 04:52:00 PM EDT 2 SPRAYS completed [facility] Ipratropium [place]ore 05/19/2017 04:52:00 PM EDT 2 SPRAYS completed [facility] Ipratropium [place] 05/19/2017 04:52:00 PM EDT 2 SPRAYS completed [facility] Ipratropium [place] 05/19/2017 04:52:00 PM EDT 2 SPRAYS completed [facility] Ipratropium [place] 05/19/2017 04:52:00 PM EDT 2 SPRAYS completed [facility] Ipratropium [place] 05/19/2017 04:52:00 PM EDT 2 SPRAYS completed [facility] Ipratropium [place] 05/19/2017 04:52:00 PM EDT 2 SPRAYS completed [facility] Insurance Providers Payer name Policy type / Coverage type Policy ID Covered republican ID Covered republican's relationship to whitney Policy Whitney Plan Information MEDICARE [id number] SP [id number] [employer] OPTIONS [id number] SP [id number] MEDICARE [id number] SP [id number] A [employer] OPTIONS [id number] SP [id number] Blue Ppo Medigap Part B [id number] Family Dependent [id number] Blue Ppo Medigap Part B [id number] Family Dependent [id number] [facility] Medigap Part B [id number] Self [id number] Medicare (Part B) Medicare Primary [id number] Self [id number] Blue Ppo Medigap Part B [id number] Family Dependent [id number] Blue Ppo Medigap Part B [id number] Family Dependent [id number] [facility] Medigap Part B [id number] Self [id number] Medicare (Part B) Medicare Primary [id number] Self [id number] [facility] Supplemental Plan Medigap Part B [id number] Self [id number] Medicare Medigap Part B [id number] Self [id number] Medicare Medicare Primary [id number] Self [id number] AARP HE[employer] CARE OPTIONS [id number] 18 [id number] MEDICARE PART A [facility] [id number] 18 [id number] Blue Ppo Medigap Part B [id number] Family Dependent [id number] Blue Ppo Medigap Part B [id number] Family Dependent [id number] [facility] Medigap Part B [id number] Self [id number] Medicare (Part B) Medicare Primary [id number] Self [id number] Blue Ppo Medigap Part B [id number] Family Dependent [id number] Blue Ppo Medigap Part B [id number] Family Dependent [id number] [facility] Medigap Part B [id number] Self [id number] Medicare (Part B) Medicare Primary [id number] Self [id number] [facility] Supplemental Plan Medigap Part B [id number] Self [id number] Medicare Medicare Primary [id number] Self [id number] Blue Ppo Medigap Part B [id number] Family Dependent [id number] Blue Ppo Medigap Part B [id number] Family Dependent [id number] [facility] Medigap Part B [id number] Self [id number] Medicare (Part B) Medicare Primary [id number] Self [id number] A[employer] HE[employer] CARE OPTIONS -O/P [id number] 18 [id number] MEDICARE PART A -O/P [id number] 18 [id number] [facility] [id number] 0 [id number] Medicare Part B [facility] [id number] Blue Ppo Medigap Part B [id number] Family Dependent [id number] Blue Ppo Medigap Part B [id number] Family Dependent [id number] [facility] Medigap Part B [id number] Self [id number] Medicare (Part B) Medicare Primary [id number] Self [id number] [place] [id number] [facility] Supplemental Plan Medigap Part B Self Medicare Medicare Primary Self [facility] [id number] 0 [id number] Medicare Part B [facility] [id number] [facility]arp Medigap Part B Self Medicare [facility] Medicare Primary Self [facility] [id number] Allegra [id number] MEDICARE [id number] Allegra [id number] A [facility] Medigap Part B Self Blue Ppo Medigap Part B Family Dependent Blue Ppo Medigap Part B Family Dependent [facility] Medigap Part B Self Medicare Medicare Primary Self [facility] Medigap Part B Self Problems, Conditions, and Diagnoses Code Display Name Description Problem Type Effective Dates Data Source(s) 227621722 Permanent atrial fibrillation Permanent atrial fibrill ation Problem 08/01/2020 12:00:00 AM EST [facility] ([facility]) [id number] 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 Problem 11/01/2019 12:00:00 AM EDT [facility] [id number] Malignant tumor of prostate Malignant tumor of prostat e Problem 08/02/2019 12:00:00 AM EST [facility] ([facility]) Surgeries/Procedures Procedure Description Date Indications Data Source(s) CT C-Spine without contrast 09/06/2020 10:25:00 AM [facility] CT Maxillofacial area w/o cont 09/06/2020 10:25:[address] [facility] [address] Head without contrast 09/06/2020 10:24:00 AM [facility] Plain chest X-ray (procedure) 09/06/2020 08:55:[address] [facility] Blood Culture 09/06/2020 12:00:00 AM [facility] Urine Culture 09/06/2020 12:00:00 AM [facility] Nucleic acid assay (procedure) 09/06/2020 12:00:00 AM [facility] CHEMOTX ADMN SUBQ/IM HORMONAL ANTI-MIGUEL 08/14/2020 12:0 0:00 AM EST [facility] ([facility]) CHEMOTX ADMN SUBQ/IM HORMONAL ANTI-MIGUEL 08/14/2020 12:0 0:00 AM EST [facility] ([facility] Echocardiography (procedure) 08/10/2020 10:01:00 AM [facility] Echocardiography (procedure) 08/10/2020 10:01:00 AM [facility] Echocardiography (procedure) 08/10/2020 10:01:00 AM [facility] Echocardiography (procedure) 08/09/2020 09:46:34 PM [facility] Ultrasound scan of carotid (procedure) 08/09/2020 07:1 6:00 PM [facility] Ultrasound scan of carotid (procedure) 08/09/2020 07:1 6:00 PM [facility] Ultrasound scan of carotid (procedure) 08/09/2020 07:1 6:00 PM [facility] Ultrasound scan of carotid (procedure) 08/09/2020 07:1 6:00 [address] [facility] CT Head without contrast 08/09/2020 06:24:09 [address] [facility] CT Head without contrast 08/09/2020 06:24:09 [address] [facility] CT Head without contrast 08/09/2020 06:24:09 [address] [facility] CT Head without contrast 08/09/2020 06:24:09 PM [facility] Plain chest X-ray (procedure) 08/09/2020 03:40:00 PM [facility] Plain chest X-ray (procedure) 08/09/2020 03:40:00 PM E [facility] Plain chest X-ray (procedure) 08/09/2020 03:40:00 PM E [facility] Plain chest X-ray (procedure) 08/09/2020 03:40:00 PM E [facility] Nucleic acid assay (procedure) 08/09/2020 12:00:00 AM [facility] Nucleic acid assay (procedure) 08/09/2020 12:00:00 AM [facility] Nucleic acid assay (procedure) 08/09/2020 12:00:00 AM [facility] Nucleic acid assay (procedure) 08/09/2020 12:00:00 AM [facility] ECG ROUTINE ECG W/LEAST 12 LDS W/I&R 08/01/2020 12:00: 00 AM EST [facility] ([facility]) COMPLEX UROFLOMETRY 05/10/2020 12:00:00 AM EDT [facility] ([facility]) DAVID POST-VOIDING RESIDUAL URINE&/BLDR CAP 05/10/2020 12:00:00 AM EDT [facility] ([facility]) CHEMOTX ADMN SUBQ/IM HORMONAL ANTI-MIGUEL 02/03/2020 12:0 0:00 AM EDT [facility] ([facility]) DAVID POST-VOIDING RESIDUAL URINE&/BLDR CAP 02/01/2020 12:00:00 AM EDT [facility] ([facility]) ECG ROUTINE ECG W/LEAST 12 LDS W/I&R 01/31/2020 12:00: 00 AM EDT [facility] ([facility]) Plain chest X-ray (procedure) 01/23/2020 04:48:00 PM E [facility] Plain chest X-ray (procedure) 01/23/2020 04:48:00 PM E [facility] Plain chest X-ray (procedure) 01/23/2020 04:48:00 PM E [facility] Plain chest X-ray (procedure) 01/23/2020 04:48:00 PM E [facility] Plain chest X-ray (procedure) 01/23/2020 04:48:00 PM E [facility] Plain chest X-ray (procedure) 01/23/2020 04:48:00 PM E [facility] Plain chest X-ray (procedure) 01/23/2020 04:48:00 PM E [facility] Plain chest X-ray (procedure) 01/23/2020 04:48:00 PM E [facility] Plain chest X-ray (procedure) 01/23/2020 04:48:00 PM E [facility] Plain chest X-ray (procedure) 01/23/2020 04:48:00 PM E [facility] Plain chest X-ray (procedure) 01/23/2020 04:48:00 PM E [facility] CT Head without contrast 01/23/2020 04:47:00 PM EDT [facility] CT Head without contrast 01/23/2020 04:47:00 PM EDT [facility] CT Head without contrast 01/23/2020 04:47:00 PM EDT [facility] CT Head without contrast 01/23/2020 04:47:00 PM EDT [facility] CT Head without contrast 01/23/2020 04:47:00 PM EDT [facility] CT Head without contrast 01/23/2020 04:47:00 PM EDT [facility] [facility] Head without contrast 01/23/2020 04:47:00 PM EDT [facility] CT Head without contrast 01/23/2020 04:47:00 PM EDT [facility] CT Head without contrast 01/23/2020 04:47:00 PM EDT [facility] CT Head without contrast 01/23/2020 04:47:00 PM EDT [facility] CT Head without contrast 01/23/2020 04:47:00 PM EDT [facility] chest X-ray (procedure) 12/09/2019 10:19:00 AM [facility] chest X-ray (procedure) 12/09/2019 10:19:00 AM E [facility] chest X-ray (procedure) 12/09/2019 10:19:00 AM [facility] chest X-ray (procedure) 12/09/2019 10:19:00 AM [facility] chest X-ray (procedure) 12/09/2019 10:19:00 AM [facility] chest X-ray (procedure) 12/09/2019 10:19:00 AM [facility] chest X-ray (procedure) 12/09/2019 10:19:00 AM [facility] chest X-ray (procedure) 12/09/2019 10:19:00 AM [facility] [place] chest X-ray (procedure) 12/09/2019 10:19:00 AM [facility] [place] chest X-ray (procedure) 12/09/2019 10:19:00 AM [facility] [place] chest X-ray (procedure) 12/09/2019 10:19:00 AM [facility] [place] chest X-ray (procedure) 12/09/2019 10:19:00 AM E [facility] Radiography of cervical spine (procedure) 10/20/2019 1 1:02:47 AM [facility] Radiography of cervical spine (procedure) 10/20/2019 1 1:02:47 AM [facility] Radiography of cervical spine (procedure) 10/20/2019 1 1:02:47 AM [facility] Radiography of cervical spine (procedure) 10/20/2019 1 1:02:47 AM [facility] Radiography of cervical spine (procedure) 10/20/2019 1 1:02:47 AM [facility] Radiography of cervical spine (procedure) 10/20/2019 1 1:02:47 AM [facility] Radiography of cervical spine (procedure) 10/20/2019 1 1:02:47 AM [facility] Radiography of cervical spine (procedure) 10/20/2019 1 1:02:47 AM [facility] Radiography of cervical spine (procedure) 10/20/2019 1 1:02:47 AM [facility] Radiography of cervical spine (procedure) 10/20/2019 1 1:02:47 AM [facility] Radiography of cervical spine (procedure) 10/20/2019 1 1:02:47 AM [facility] Radiography of cervical spine (procedure) 10/20/2019 1 1:02:47 AM [facility] Radiography of cervical spine (procedure) 10/20/2019 1 1:02:47 AM [facility] Diagnostic radiography of chest, combine d posteroanterior and lateral (procedure) 08/13/2019 02:24:00 PM EST [facility] Diagnostic radiography of chest, combine d posteroanterior and lateral (procedure) 08/13/2019 02:24:00 PM [facility] Diagnostic radiography of chest, combine d posteroanterior and lateral (procedure) 08/13/2019 02:24:00 PM [facility] Diagnostic radiography of chest, combine d posteroanterior and lateral (procedure) 08/13/2019 02:24:00 PM [facility] Diagnostic radiography of chest, combine d posteroanterior and lateral (procedure) 08/13/2019 02:24:00 PM [facility] Diagnostic radiography of chest, combine d posteroanterior and lateral (procedure) 08/13/2019 02:24:00 PM [facility] Diagnostic radiography of chest, combine d posteroanterior and lateral (procedure) 08/13/2019 02:24:00 PM [facility] Diagnostic radiography of chest, combine d posteroanterior and lateral (procedure) 08/13/2019 02:24:00 PM [facility] Diagnostic radiography of chest, combine d posteroanterior and lateral (procedure) 08/13/2019 02:24:00 PM [facility] Diagnostic radiography of chest, combine d posteroanterior and lateral (procedure) 08/13/2019 02:24:00 PM [facility] Diagnostic radiography of chest, combine d posteroanterior and lateral (procedure) 08/13/2019 02:24:00 PM [facility] Diagnostic radiography of chest, combine d posteroanterior and lateral (procedure) 08/13/2019 02:24:00 PM [facility] Diagnostic radiography of chest, combine d posteroanterior and lateral (procedure) 08/13/2019 02:24:00 PM [facility] CHEMOTX ADMN SUBQ/IM HORMONAL ANTI-MIGUEL 08/02/2019 12:0 0:00 AM EST [facility] [employer] [facility] [employer] CHEMOTX ADMN SUBQ/IM HORMONAL ANTI-MIGUEL 08/02/2019 12:0 0:00 AM EST [facility] [employer] [place] Radiography of hip (procedure) 07/30/2019 09:20:00 AM [facility] Radiography of hip (procedure) 07/30/2019 09:20:00 AM [facility] Radiography of hip (procedure) 07/30/2019 09:20:00 AM [facility] Radiography of hip (procedure) 07/30/2019 09:20:00 AM [facility] Radiography of hip (procedure) 07/30/2019 09:20:00 AM [facility] Radiography of hip (procedure) 07/30/2019 09:20:00 AM [facility] Radiography of hip (procedure) 07/30/2019 09:20:00 AM [facility] Radiography of hip (procedure) 07/30/2019 09:20:00 AM [facility] Radiography of hip (procedure) 07/30/2019 09:20:00 AM [facility] Radiography of hip (procedure) 07/30/2019 09:20:00 AM [facility] Radiography of hip (procedure) 07/30/2019 09:20:00 AM [facility] Radiography of hip (procedure) 07/30/2019 09:20:00 AM [facility] Radiography of hip (procedure) 07/30/2019 09:20:00 AM [facility] Radiography of hip (procedure) 07/30/2019 09:20:00 AM [facility] Radiography of hip (procedure) 07/30/2019 09:20:00 AM [facility] Radiography of hip (procedure) 07/30/2019 09:20:00 AM [facility] Radiography of hip (procedure) 07/30/2019 09:20:00 AM [facility] Radiography of hip (procedure) 07/30/2019 09:20:00 AM [facility] Radiography of hip (procedure) 07/30/2019 09:20:00 AM [facility] Radiography of hip (procedure) 07/30/2019 09:20:00 AM [facility] Radiography of hip (procedure) 07/30/2019 09:20:00 AM [facility] Radiography of hip (procedure) 07/30/2019 09:20:00 AM [facility] Radiography of hip (procedure) 07/30/2019 09:20:00 AM [facility] Radiography of hip (procedure) 07/30/2019 09:20:00 AM [facility] Diagnostic radiography of chest, combine d posteroanterior and lateral (procedure) 07/28/2019 10:39:00 AM [facility] Diagnostic radiography of chest, combine d posteroanterior and lateral (procedure) 07/28/2019 10:39:00 AM [facility] Diagnostic radiography of chest, combine d posteroanterior and lateral (procedure) 07/28/2019 10:39:00 AM [facility] Diagnostic radiography of chest, combine d posteroanterior and lateral (procedure) 07/28/2019 10:39:00 AM [facility] Diagnostic radiography of chest, combine d posteroanterior and lateral (procedure) 07/28/2019 10:39:00 AM [facility] Diagnostic radiography of chest, combine d posteroanterior and lateral (procedure) 07/28/2019 10:39:00 AM [facility] Diagnostic radiography of chest, combine d posteroanterior and lateral (procedure) 07/28/2019 10:39:00 AM [facility] Diagnostic radiography of chest, combine d posteroanterior and lateral (procedure) 07/28/2019 10:39:00 AM [facility] Diagnostic radiography of chest, combine d posteroanterior and lateral (procedure) 07/28/2019 10:39:00 AM [facility] Diagnostic radiography of chest, combine d posteroanterior and lateral (procedure) 07/28/2019 10:39:00 AM [facility] Diagnostic radiography of chest, combine d posteroanterior and lateral (procedure) 07/28/2019 10:39:00 AM [facility] Diagnostic radiography of chest, combine d posteroanterior and lateral (procedure) 07/28/2019 10:39:00 AM [facility] CT Abd/pel w/o contrast 07/28/2019 10:24:00 AM [facility] CT Abd/pel w/o contrast 07/28/2019 10:24:00 AM [facility] CT Abd/pel w/o contrast 07/28/2019 10:24:00 AM [facility] CT Abd/pel w/o contrast 07/28/2019 10:24:00 AM [facility] CT Abd/pel w/o contrast 07/28/2019 10:24:00 AM [facility] CT Abd/pel w/o contrast 07/28/2019 10:24:00 AM [facility] CT Abd/pel w/o contrast 07/28/2019 10:24:00 AM [facility] CT Abd/pel w/o contrast 07/28/2019 10:24:00 AM [facility] CT Abd/pel w/o contrast 07/28/2019 10:24:00 AM [facility] CT Abd/pel w/o contrast 07/28/2019 10:24:00 AM [facility] CT Abd/pel w/o contrast 07/28/2019 10:24:00 AM [facility] CT Abd/pel w/o contrast 07/28/2019 10:24:00 AM [facility] PROSTATE NEEDLE BIOPSY ANY APPROACH 07/12/2019 12:00:0 0 AM EST [facility] [employer]) INJECTION ANES OTHER PERIPHERAL NERVE/BRANCH 9 12:00:00 AM EST [facility] ULTRASOUND TRANSRECTAL 07/12/2019 12:00:00 AM EST [facility] [place]) US GUIDANCE NEEDLE PLACEMENT RS&I 07/12/2019 12:00:00 AM EST [facility] [place]) Results ID Date Data Source [id number] 09/06/2020 07:45:00 PM [facility] Transfusion reaction REACT on unit W2001 [id number]. Transfusion reaction REACT on unit W2001 [id number]. Name Value Range Interpretation Code Description Data Maribel rce(s) Supporting Document(s) Post Blood Type [facility] ID Date Data Source [id number] 09/06/2020 07:52:00 PM [facility] Transfusion reaction REACT on unit W2001 [id number]. Transfusion reaction REACT on unit W2001 [id number]. Name Value Range Interpretation Code Description Data Maribel rce(s) Supporting Document(s) Pretransfusion Blood Type [facility] ID Date Data Source [id number] 09/06/2020 07:45:00 PM [facility] Transfusion reaction REACT on unit W2001 [id number]. Transfusion reaction REACT on unit W2001 [id number]. Name Value Range Interpretation Code Description Data Maribel rce(s) Supporting Document(s) PostTx Antibody Screen NEGATIVE [facility] ID Date Data Source [id number] 09/06/2020 07:52:00 PM EST [facility] Transfusion reaction REACT on unit W2001 [id number]. Transfusion reaction REACT on unit W2001 [id number]. Name Value Range Interpretation Code Description Data Maribel rce(s) Supporting Document(s) Pretransfusion Antibody Screen NEGATIVE [facility] ID Date Data Source [id number] 09/06/2020 06:52:00 PM EST [facility] Special Instructions: POST BLOOD REACTIO NReason for ordering culture: Abnormal findings UAPOST TRANSFUSION URINE@09/06/20 1851: UA W/ MICRO added. RFLXG = UMIC CIF.Method of Collection:: Voided Special Instructions: POST BLOOD REACTIO NReason for ordering culture: Abnormal findings UAPOST TRANSFUSION URINE@09/06/20 1851: UA W/ MICRO added. RFLXG = UMIC CIF.Method of Collection:: Voided Name Value Range Interpretation Code Description Data Maribel rce(s) Supporting Document(s) Color of Urine [facility] Appearance of Urine CLEAR Abnormal (applies to non-nu meric results) [facility] pH of Urine by Test strip 5.0 5-8 [facility] Specific gravity of Urine by Refractometry 1.016 1.005-1.030 [facility] Leukocyte esterase [Presence] in Urine by Test strip NEGAT NILESH [facility] Nitrite [Presence] in Urine by Test strip NEGATIVE [facility] Protein [Presence] in Urine by Test strip NEGATIVE Above high normal [facility] @DO MICRO!!!! Glucose [Mass/volume] in Urine by Automated test strip NEGATIVE NEG ATIVE [facility] Ketones [Presence] in Urine by Test strip NEGATIVE [facility] Urobilinogen [Presence] in Urine 0.2-1 EU/dl [facility] Bilirubin.total [Presence] in Urine by Automated test strip NEGATIVE [facility] Erythrocytes [#/volume] in Urine by Test strip MODERATE N EGATIVE Abnormal (applies to non-numeric results) [facility]A Culture has been added to this specimen per established criteria URINE MICROSCOPIC? (CIF) Microscopic Added [facility] ID Date Data Source [id number] 09/06/2020 06:52:00 PM [facility] Special Instructions: POST BLOOD REACTIO NReason for ordering culture: Abnormal findings UAPOST TRANSFUSION URINE@09/06/20 1851: UA W/ MICRO added. RFLXG = UMIC CIF.Method of Collection:: Voided Special Instructions: POST BLOOD REACTIO NReason for ordering culture: Abnormal findings UAPOST TRANSFUSION URINE@09/06/20 1851: UA W/ MICRO added. RFLXG = UMIC CIF.Method of Collection:: Voided Name Value Range Interpretation Code Description Data Maribel rce(s) Supporting Document(s) Erythrocytes [#/volume] in Urine by Manual count 1-2 /hpf 0-5 [facility] Leukocytes [#/volume] in Urine by Manual count OCCASIONAL 0-5 [facility] Amorphous sediment [Presence] in Urine sediment by Light microscopy [facility] ID Date Data Source [id number] 09/06/2020 02:39:00 PM [facility] Oxygen Delivery Method Nasal Cannula7.13 @Review test & document.Called to dr mendez @ 1439 by Paulette Llamas. Results readback.26.3 Name Value Range Interpretation Code Description Data Marbiel rce(s) Supporting Document(s) Oxygen [Partial pressure] in Gas 111.0 mm[Hg] 74.0-100.0 Above high n ormal [facility] 97.98.7-18.9 Carbon dioxide, total [Moles/volume] in Arterial blood 9.5 mmol/ L 22.0-30.0 Below low normal [facility] 280.6Nasal Cannula@Reenter manual test r esult: NASAL CANNULA@by Paulette Llamas at 09/06/20 143. Specimen site Narrative LEFT RADIAL ARTERY [facility] @Reenter manual test result: LEFT RADIAL @by Paulette Llamas at 09/06/20 143.Performed@Reenter manual test result: PERFORMED@by Paulette Llamas at 09/06/20 143. ID Date Data Source [id number] 09/06/2020 11:23:00 AM [facility] [address] [place] [id number] [phone] NAME SEX PT STATUS ACCOUNT NUMBER [facility] ER [id number] ORDERING PHYSICIAN LOCATION MEDICAL RECORD NO. Justice Mendez MD ER [id number] ATTENDING PHYSICIAN DATE OF DATE OF EXAM/TIME Mayuri Guardado DO 1940 09/06/205 TYPE / EXAM CT Maxillofacial area w/o cont REASON FOR EXAM facial pain COMPARISON: None FINDINGS: CT scan of the maxillofacial bones show no fracture. The bony daly of the sinuses and orbits are intact. The paranasal sinuses are clear except for mucoperiosteal thickening involving the frontal sinuses compatible with chronic sinusitis.. The zygomatic arches appear intact. IMPRESSION: Unremarkable CT scan of the maxillofacial bones. Dose reduction was performed utilizing CARE dose with automated adjustment of the kV and MAS according to patient size, iterative reconstruction, automated exposure control, as well as adaptivedose shielding. Reported By Nguyen Lawson MD on 09/06/201122 Signed By Nguyen Lawson MD on 09/06/201127 Date Time CC: Mayuri Guardado DO; Nguyen Lawson MD Techn: MORSA Trans Dt/Tm: Trans by: DT Prt Dt/Tm: 2354-2204: Total DLP = 500.00 mGy-cm 1691-9153: Total Radiation Dose = 1.5500 mSv Lifetime Dose: 13.3893 mSv Name Value Range Interpretation Code Description Data Maribel rce(s) Supporting Document(s) ID Date Data Source [id number] 09/06/2020 10:58:00 AM EST [facility] [address] [place] [id number] [phone] NAME SEX PT STATUS ACCOUNT NUMBER [facility] ER [id number] ORDERING PHYSICIAN LOCATION MEDICAL RECORD NO. Justice Mendez MD ER [id number] ATTENDING PHYSICIAN DATE OF DATE OF EXAM/TIME Mayuri Guardado DO 1940 09/06/20 / 1023 TYPE / EXAM CT Head without contrast REASON FOR EXAM Headache COMPARISON: None available. TECHNIQUE: CT images of the head were acquired from the skull base to the vertex using 5mm collimation. FINDINGS: There is no acute intracranial hemorrhage.There is no large acute cortical infarction. Please note that if acute infarction is suspected, MRI is the test of choice. There is no mass effect or mid-line shift. Cerebral atrophy is present. Ventricular dilatation is commensurate. Mastoid air cells and paranasal sinuses are show a small amount of sinusitis in the ethmoid sinuses.. IMPRESSION: 1. No acute intracranial hemorrhage. 2. No mass effect or midline shift. Dose reduction was performed utilizing CARE dose with automated adjustment of the kV and MAS according to patient size, iterative reconstruction, automated exposure control, as well as adaptivedose shielding. Reported By Nguyen Lawson MD on 09/06/20 1058 Signed By Nguyen Lawson MD on 09/06/20 1123 Date Time CC: Mayuri Guardado DO; Nguyen Lawson MD Techn: MORSA Trans Dt/Tm: Trans by: DT Prt Dt/Tm: : Total DLP = 376.00 mGy-cm : Total Radiation Dose = 1.1656 mSv Lifetime Dose: 13.3893 mSv Name Value Range Interpretation Code Description Data Maribel rce(s) Supporting Document(s) ID Date Data Source [id number] 09/06/2020 10:52:00 AM EST [facility] [address] [place] [address] [phone] NAME SEX PT STATUS ACCOUNT NUMBER [facility] ER [id number] ORDERING PHYSICIAN LOCATION MEDICAL RECORD NO. Justice Mendez MD ER [id number] ATTENDING PHYSICIAN DATE OF DATE OF EXAM/TIME Mayuri Guardado DO 1940 09/06/20 / 1025 TYPE / EXAM CT C-Spine without contrast REASON FOR EXAM neck pain COMPARISON: None available. FINDINGS: Diffuse osteopenia is seen with diffuse degenerative changes and multiple degenerated discs. There is no evidence of fracture. IMPRESSION: Diffuse degenerative change. Further evaluation is clinically indicated MRI is recommended. Dose reduction was performed utilizing CARE dose with automated adjustment of the kV and MAS according to patient size, iterative reconstruction, automated exposure control, as well as adaptive dose shielding. Reported By Nguyen Lawson MD on 09/06/20 1052 Signed By gNuyen Lawson MD on 09/06/20 105 Date Time CC: Mayuri Guardado DO; Nguyen Lawson MD Techn: MORSA Trans Dt/Tm: Trans by: DT Prt Dt/Tm: : Total DLP = 500.00 mGy-cm : Total Radiation Dose = 0.0000 mSv Lifetime Dose: 13.3893 mSv Name Value Range Interpretation Code Description Data Maribel rce(s) Supporting Document(s) ID Date Data Source [id number] 09/06/2020 09:44:00 AM EST [facility] [address] [place] [id number] [phone] NAME SEX PT STATUS ACCOUNT NUMBER [facility] [id number] ORDERING PHYSICIAN LOCATION MEDICAL RECORD NO. Justice Mendez MD ER [id number] ATTENDING PHYSICIAN DATE OF DATE OF EXAM/TIME Mayuri Guardado DO 1940 09/06/20854 TYPE / EXAM Xray Chest One View REASON FOR EXAM Hypotensive COMPARISON: 08/09/2020 FINDINGS: Lungs are hypoventilated. Postoperative changes are seen with sternal sutures. There are a few linear densities of opacity in the left lung base that are seen on older studies and are most likelyrelated to atelectatic change. No obvious pleural effusion or pneumothorax is seen. IMPRESSION: No acute disease identifiable. Reported By Nguyen Lawson MD on 09/06/20943 Signed By Nguyen Lawson MD on 09/06/20945 Date Time CC: Mayuri Guardado DO; Nguyen Lawson MD Techn: FELIX Trans D t/Tm: Trans by: DT Prt Dt/Tm: 2062-2098: Total DLP = 0.00 mGy-cm Fluoroscopy Time (in secs): Name Value Range Interpretation Code Description Data Maribel rce(s) Supporting Document(s) ID Date Data Source [id number] 09/06/2020 09:20:00 AM [facility] Oxygen Delivery Method Nasal Cannula7.02 @Review test & document. 7.02Called to @ 0919 by Sarahy Pulliam. Results readback.24.3 Name Value Range Interpretation Code Description Data Maribel rce(s) Supporting Document(s) Oxygen [Partial pressure] in Gas 106.0 mm[Hg] 74.0-100.0 Above high n ormal [facility] 96.46.3-23.0 Carbon dioxide, total [Moles/volume] in Arterial blood 7.1 mmol/ L 22.0-30.0 Below low normal [facility] 280.6Nasal Cannula@Reent manual test r esult:NASAL CANNULA@by Sarahy Pulliam at 09/06/20919. Specimen site Narrative RIGHT RADIAL ARTERY [facility] @Reent manual test result: RIGHT RADAI L@by Sarahy Pulliam at 09/06/20919.Performed@Reent manual test result: PEROFRMED@by Sarahy Pulliam at 09/06/20919. ID Date Data Source [id number] 09/06/2020 08:04:00 AM EST [facility] @09/06/20 0738: UA W/ MICRO added. RFLXG = UMIC.Method of Collection:: Cath Specimen @09/06/20 0738: UA W/ MICRO added. RFLXG = UMIC.Method of Collection:: Cath Specimen Name Value Range Interpretation Code Description Data Maribel rce(s) Supporting Document(s) Color of Urine [facility] Appearance of Urine CLEAR Abnormal (applies to non-nu meric results) [facility] pH of Urine by Test strip 5.0 5-8 [facility] Specific gravity of Urine by Refractometry 1.023 1.005-1.030 [facility] Leukocyte esterase [Presence] in Urine by Test strip NEGATIVE Above high normal [facility] @DO MICRO!!!! Nitrite [Presence] in Urine by Test strip NEGATIVE [facility] Protein [Presence] in Urine by Test strip NEGATIVE Above high normal [facility] @DO MICRO!!!! Glucose [Mass/volume] in Urine by Automated test strip NEGATIVE NEG ATIVE [facility] Ketones [Presence] in Urine by Test strip NEGATI VE Abnormal (applies to non- numeric results) [facility] Urobilinogen [Presence] in Urine 0.2-1 EU/dl [facility] Bilirubin.total [Presence] in Urine by Automated test strip NEGATIVE [facility] Erythrocytes [#/volume] in Urine by Test strip MODERATE N EGATIVE Above high normal [facility] @DO MICRO!!!! URINE MICROSCOPIC ADDED Microscopic Added [facility] ID Date Data Source [id number] 09/06/2020 08:04:00 AM EST [facility] @09/06/20 0738: UA W/ MICRO added. RFLXG = UMIC.Method of Collection:: Cath Specimen @09/06/20 0738: UA W/ MICRO added. RFLXG = UMIC.Method of Collection:: Cath Specimen Name Value Range Interpretation Code Description Data Maribel rce(s) Supporting Document(s) Erythrocytes [#/volume] in Urine by Manual count OCCASIONAL 0-5 [facility] Leukocytes [#/volume] in Urine by Manual count 1-2 /hpf 0-5 [facility] Amorphous sediment [Presence] in Urine sediment by Light microscopy [facility] ID Date Data Source [id number] 09/06/2020 08:53:00 AM EST [facility] THIS RP PANEL TESTS FOR SARS-CoV -2,(COVID-19)FilmArray Respiratory Panel is a Multiplexed NAAT-PCR testNORMAL VALUE FOR ALL 20 PATHOGENS IS "NOT DETECTED".The FilmArray RP panel detects Influenza A H1,H3 [id number] H1 viruses,Influenza B virus, Respiratory syncytialvirus, Human metapneumovirus,Parainfluenza virus 1,2,3, and4, Adenovirus,Rhino/Enterovirus,Coronavirus HKU 1, Nl63,OC43, and 229E,Bordetella pertussis, Bordetellaparapertussis, Mycoplasma pneumoniae and Chlamydiapneumoniae, SARS-CoV-2 (COVID 19).THIS TEST HAS NOT BEEN EVALUATED FOR USE WITH SPECIMENSOTHER THAN NASOPHARYNGEAL SWAB SPECIMENS.THE PERFORMANCE OF THIS TEST HAS NOT BEEN ESTABLISHED FORPATIENTS WITHOUT SIGNS AND SYMPTOMS OF RESPIRATORYINFECTION.RESULTS FROM THIS TEST MUST BE CORRELATED WITH CLINICALHIST ORY, EPIDEMIOLOGICAL DATA , AND OTHER DATA AVAILABLE TOTHE CLINICIAN EVALUATING THE PATIENT.THE PERFORMANCE OF THE MTPVARRAY RP HAS NOT BEEN ESTABLISHEDIN INDIVIDUALS WHO RECEIVED INFLUENZA VACCINE. RECENTADMINISTRATION OF A NASAL INFLUENZA VACCINE MAY CAUSE AFALSE POSITIVE RESULT FOR INFLUENZA A AND/OR B.NEGATIVE RESULTS SHOULD NOT BE USED THE SOLE BASIS FORDIAGNOSIS, TREATMENT, OR OTHER MANAGEMENT DECISIONS.NEGATIVE RESULTS IN THE SETTING OF A RESPIRATORY ILLNESSMAYBE DUE TO INFECTION WITH PATHOGENS THAT ARE NOT DETECTEDBY THIS TEST OR LOWER RESPIRATORY TRACT INFECTION THAT ISNOT DETECTED BY A NASOPHARYNGEAL SWAB SPECIMEN.SARS-CoV-2 RNA Resp Ql TIFFANIE+probe Name Value Range Interpretation Code Description Data Maribel rce(s) Supporting Document(s) ID Date Data Source [id number] 09/06/2020 07:53:00 AM [facility] Special Instructions: Lab may order repe at test if initial test elevatedPhysician If elevated, reflex second test in 4-6 hrs Anticoagulant or Thrombolytic medication : Heparin Name Value Range Interpretation Code Description Data Maribel rce(s) Supporting Document(s) Lactic w Rfx (if elevated) 1.1 mmol/L 0.5-2.0 N [facility] ID Date Data Source [id number] 09/06/2020 08:39:00 AM [facility] Special Instructions: Lab may order repe at test if initial test elevatedPhysician If elevated, reflex second test in 4-6 hrs Anticoagulant or Thrombolytic medication : Heparin Name Value Range Interpretation Code Description Data Maribel rce(s) Supporting Document(s) Prothrombin Time (Patient) Greater Than 90 9.6-12.3 Above high norm [facility] @PT Greater than instrument linearity@Re port as greater than [address] MENDEZ @ 0831 by Gus Flores. Results readback.Repeated by: Gus Flores 09/06/20 0839.Result Confirmation: > 90 SECONDS INR Greater Than 9.8 0.9-1.1 No range defined, or normal ra nges don't apply [facility] @Review test & document.@Report as great er than linearityCalled to DR. MENDEZ @ 0837 by Gus Flores. Results readback.Repeated by: Gus Flores 09/06/20 0838.Result Confirmation: >9.8THE INR IS OPERATIONALLY DEFINED FOR FRESH PLASMA FROMPATIENTS STABILIZED ON ORAL ANTICOAGULANTS.ROUTINE ANTICOAGULANT THERAPY 2.0-3.0RECURRENT SYSTEMIC EMBOLISM/HEART VALVE REPLACEMENT 2.5-3.5 aPTT.lupus sensitive (LA screen) 86.5 s 22.7-31.6 No range defined, or normal ranges don't apply [facility] @Review test & document. []Called to AGUSTÍN Herrera @ 0819 by Gus Flores. Results readback.Repeated by: Gus Flores 09/06/20 0820.Result Confirmation: 86.5 SECONDS ID Date Data Source [id number] 09/06/2020 07:26:00 AM EST [facility] Name Value Range Interpretation Code Description Data Maribel rce(s) Supporting Document(s) Leukocytes [#/volume] in Blood by Automated count 9.5 10*3/uL 4.45-10 .71 N [facility] Erythrocytes [#/volume] in Blood by Automated count 3.21 10*6/uL 4.3-6.1 Below low normal [facility] Hemoglobin [Moles/volume] in Blood 10.2 g/dL 13-18 Below low no rmal [facility] Hematocrit [Volume Fraction] of Blood by Automated count 30.7 % 42-52 Below low normal [facility] Erythrocyte mean corpuscular volume [Ent itic volume] in Cord blood by Automated count 95.6 fL 80-96 N [facility] ital Erythrocyte mean corpuscular hemoglobin [Entitic mass] by Automated count 31.8 pg 27-31 Above high normal [facility] spital Erythrocyte mean corpuscular hemoglobin concentration [Mass/volume] in Cord blood 33.2 g/dL 33-37 N [facility] ital Erythrocyte distribution width [Entitic volume] by Automated count 15 % 11-15 N [facility] Platelets [#/volume] in Blood by Automated count 129 10*3/uL 130-472 Below low normal [facility] Platelet mean volume [Entitic volume] in Blood 12.0 fL 9.1-13.1 N [facility] Neutrophils/100 leukocytes in Blood by Automated count 81.5 % 41-77 Above high normal [facility] Neutrophils [#/volume] in Blood by Automated count 7.7 U 1.7-7.6 Above high normal [facility] Lymphocytes/100 leukocytes in Blood by Automated count 9.0 % 14-46 Below low normal [facility] Lymphocytes [#/volume] in Blood by Automated count 0.9 U 0.6-4.6 N [facility] Monocytes/100 leukocytes in Blood by Automated count 7.3 % 4-12 N [facility] Monocytes [#/volume] in Blood by Automated count 0.7 U 0.2-1.2 N [facility] Eosinophils/100 leukocytes in Blood by Automated count 1.6 % 0-7 N [facility] Eosinophils [#/volume] in Blood by Automated count 0.2 U 0.0-0.5 N [facility] Basophils/100 leukocytes in Blood by Automated count 0.2 % 0.4-1.3 Below low normal [facility] Basophils [#/volume] in Blood by Automated count 0.0 U 0.0-0.2 N [facility] NUCLEATED RED BLOOD CELL 0 % [facility] NUCLEATED RED BLOOD CELL# [address] [facility] Immature granulocytes [Presence] in Blood by Automated count 0-2 N [facility] Immature granulocytes [#/volume] in Blood by Automated count 0.0 U 0-0.1 N [facility] Manual Differential panel - Blood NO [facility] ID Date Data Source [id number] 09/06/2020 08:14:00 AM EST [facility] Name Value Range Interpretation Code Description Data Maribel rce(s) Supporting Document(s) Urea nitrogen [Mass/volume] in Serum or Plasma 131 mg/dL 9 -23 No range defined, or normal ranges don't apply [facility] @Review test & document. []Called to DR. MENDEZ @ 0807 by Gus Flores. Results readback.Repeated by: Gus Flores 09/06/20807.Result Confirmation: 132 mg/dL Sodium [Moles/volume] in Serum or Plasma 136 mmol/L 132-146 N [facility] Potassium [Moles/volume] in Serum or Plasma 4.3 mmol/L 3.5-5.5 N [facility] Chloride [Moles/volume] in Serum or Plasma 107 mmol/L 99-109 N [facility] Carbon dioxide, total [Moles/volume] in Serum or Plasma 7 mmol/L 20-31 No range defined, or normal ranges don't apply [facility] @Review test & document. []Called to DR. MENDEZ @ 0807 by Gus Flores. Results readback.Repeated by: Gus Flores 09/06/20807.Result Confirmation: 7 mmol/l Anion gap in Serum or Plasma 26 mmol/L 8-16 Above high normal [facility] Glucose [Mass/volume] in Serum or Plasma 93 mg/dL 74-106 N [facility] Creatinine 8.0 mg/dL 0.5-1.1 No range defined, or normal ranges d on't apply [facility] @Review test & document. []Called to DR. MENDEZ @ 0807 by Gus Flores. Results readback.Repeated by: Gus Flores 09/06/20807.Result Confirmation: 8.1 mg/dL Glomerular filtration rate/1.73 sq M.pre dicted [Volume Rate/Area] in Serum or Plasma 7 ml/min ABOVE 60 [facility] ital Alanine aminotransferase [Enzymatic acti vity/volume] in Serum or Plasma by With P-5'-P 13 U/L 10-49 N [facility] ital Aspartate aminotransferase [Enzymatic ac tivity/volume] in Serum or Plasma by With P-5'-P 9 U/L 0-33 N [facility] pital Alkaline phosphatase [Enzymatic activity/volume] in Serum or Plasma 114 U/L 45-129 N [facility] Calcium [Mass/volume] in Serum or Plasma 8.8 mg/dL 8.5-10. 1 No range defined, or normal ranges don't apply [facility] Repeated by: Gus Flores 09/06/20 08 14.Result Confirmation: 8.7 # mg/dL Bilirubin.total [Mass/volume] in Serum or Plasma 0.3 mg/dL 0.3-1.2 [facility] Albumin [Mass/volume] in Serum or Plasma by Bromocresol purple (BCP) dye binding method 3.1 g/dL 3.2-4.8 Below low normal [facility] Protein [Mass/volume] in Serum or Plasma 6.5 g/dL 5.7-8.2 [facility] ID Date Data Source [id number] 09/06/2020 08:14:00 AM [facility] Name Value Range Interpretation Code Description Data Maribel rce(s) Supporting Document(s) Troponin I.cardiac [Mass/volume] in Serum or Plasma 0.030 ng/mL 0.00- 0.09 [facility] Less than 0.09 NG/ML Negative0.10 - 0.77 NG/ML High Risk0.78 NG/ML or Greater PositiveThe WHO defined the cutoff (definition for diagnosis of [place])for this method as 0.78 ng/ml. ID Date Data Source [id number] 09/06/2020 06:15:00 PM [facility] [id number] BP CONVALESCENT TRANSFUSED 09/06/20 1527 [id number] OP CONVALESCENT TRANSFUSED 09/06/20 1658 Order product and Administer when availa ble: Y@ @Results at Enter/Edit Results as of 09/06/20 1501 ...@Test View Group: MOST RECENT COAG RESULTS@ LABORATORY@Date Time Test Result Flag Normal Range@09/06/20714 PT Greater Than 90 H 9.6-12.3 SECONDS@@@Called to DR. MENDEZ @ 0837 by Gus Flores. Results read@@back.@@Repeated by: Gus Flores 09/06/20 0839.@Result Confirmation: > 90 SECONDS@01/27/21 0715 PTT 86.5 !H 22.7- 31.6 SECONDS@@Called to CRISTOPHER Herrera @ 0819 by Gus Flores. Results read@back.@Repeated by: Gus Flores 09/06/20819.@Result Confirmation: 86.5 SECONDS@@ :: NTransfused within 90 days?: DONT KNOWPre Op? (IF Yes, give date): N Name Value Range Interpretation Code Description Data Maribel rce(s) Supporting Document(s) ID Date Data Source [id number] 09/06/2020 06:15:00 PM [facility] [id number] BP CONVALESCENT TRANSFUSED 09/06/20 1527 [id number] OP CONVALESCENT TRANSFUSED 09/06/20 1658 Order product and Administer when availa ble: Y@ @Results at Enter/Edit Results as of 09/06/20 1501 ...@Test View Group: MOST RECENT COAG RESULTS@ LABORATORY@Date Time Test Result Flag Normal Range@09/06/20714 PT Greater Than 90 H 9.6-12.3 SECONDS@@@Called to DR. MENDEZ @ 0837 by Gus Flores. Results read@@back.@@Repeated by: Gus Flores 09/06/20 0839.@Result Confirmation: > 90 SECONDS@09/06/20714 PTT 86.5 !H 22.7- 31.6 SECONDS@@Called to CRISTOPHER Herrera @ 0819 by Gus Flores. Results read@back.@Repeated by: Gus Flores 09/06/20819.@Result Confirmation: 86.5 SECONDS@@ :: NTransfused within 90 days?: DONT KNOWPre Op? (IF Yes, give date): N Name Value Range Interpretation Code Description Data Maribel rce(s) Supporting Document(s) Blood bank studies (set) Yes [facility] @ORDERED RETYPE MANUALLY - EMZ Blood Type [facility] Antibody Screen NEGATIVE [facility] ID Date Data Source [id number] 08/16/2020 09:39:00 AM EST [facility] Patient Name: BRITTON GOMEZ : 1940 Sex: M Pt Unit #: [id number] Location:[facility] Provider: Visit Date/Time: 08/16/20 Primary Insurance: MEDICARE [facility] Secondary Insurance: [facility] Intake Intake Visit Reasons: Telemed Visit Nurse Note: 80 year old male doing a telemed visit today. His Brea will be talking to you. Was in the ER 08-09-2020 for chest pain and was admitted overnight.Does c/o terrible neck pain and wouldlike something for that. States tylenol does not help. Pt. is quarantined now because he was exposedto covid in the hospital per . Diet has improved, did buy him ensure to try. Pt. is very weak and cannot do stairs anymore, they moved him down on the main floor now. He continues to have the rash, feels it was not scabies, he does have a derm appointment on Friday. Does need warfarin 2mg refilled today. Varnish Maker Required: No Accompanied by: Is patient in pain?: Yes Allergies No Known Drug Allergies Allergy (Verified 08/16/20 0 9:58) Medications - Last Reconciled 08/16/20 by Mayuri Guardado, DO acetaminophen (Tylenol) 650 mg PO QID albuterol sulfate 90 mcg/actuation 2 inhalations inhalation QID PRN allopurinol 100 mg PO DAILY aspirin 81 mg PO DAILY ferrous gluconate 324 mg PO DAILY finasteride 5 mg PO DAILY folic acid 1 mg PO DAILY furosemide (Lasix) 40 mg PO BID gemfibrozil 600 mg PO BID hydrocortisone 1% (Anti-Itch (hydrocortisone)) 1 applic topical BID-QID PRN lactobacillus combination no.4 (Probiotic) 1 ea PO DAILY leuprolide (Eligard) 7.5 mg subcut [id number] lisinopril 5 mg PO DAILY metoprolol tartrate 12.5 mg PO BID MDD 1 omeprazole 20 mg PO QDAY permethrin 5% 1 applic topical Q14D 2 doses rosuvastatin (Crestor) 20 mg PO DAILY tamsulosin 1 tab PO DAILY warfarin 3 mg See Protocol PO QDAY warfarin 2 mg See Protocol PO 2XW Fall Risk History of falls: No Ambulatory Aid:: Crutches Cane or Walker Gait/Transferring:: Weak Medications:: Antihypertensives HIV Testing Offer - ages 13-64 Requirement for HIV testing offer been met?: Not in age range Do you need a note to return Do you need a note to return to daycare/school/sports/work: No Telephone visit Telephone/Virtual Visit Patient consented to consult via telephone or video: Yes Names of people present:: mrs gomez Total time spent on medical discussion: five minutes Coronavirus Screening Screening Have you traveled outside of [facility] or [facility] in the last 14 days.: No Has patient experienced coronavirus symptoms: No [facility] Medical History (Updated 08/16/20 @ 10:23 by Mayuri Guardado DO) Anemia Atrial fibrillation with controlled ventricular response Bleeding diathesis BPH w urinary obs/LUTS (08/19/17) Bradycardia Bug bite without infection Carpal tunnel syndrome on right (09/27/14) Chronic atrial fibrillation (06/11/16) Chronic renal failure Chronic renal impairment, stage 3 (moderate) (10/09/15) CKD (chronic kidney disease) stage 3, GFR 30-59 ml/min Congestive heart failure (CHF) Coronary artery disease 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 (09/27/14) Diabetes mellitus type 2 in obese (10/24/14) Exercise-induced shortness of breath Foreign body in hand (07/25/14) Heart murmur Hypercholesterolemia (01/06/15) Hyperlipidemia Hypertension Hypertension, essential, benign (01/06/15) Ischemic colitis (02/19/16) Itch of skin Itching due to drug Laceration of ear, external, left, complicated Late eff nerv injury shld/arm (07/25/14) Late effect of tendon injury (07/25/14) Neck pain on left side On warfarin therapy (12/08/18) Peripheral vascular disease in diabetes mellitus (01/06/15) Prostate nodule Scabies Seborrheic keratosis (09/26/16) Skin sensation disturbance (07/25/14) Tachycardia Tick bite Traumatic arthropathy, 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 Father Heart disease Brother No problems noted. Brother Hyperlipidemia Hypertension Brother No problems noted. Sister No problems noted. Sister No problems noted. Sister Multiple sclerosis Sister No problems noted. Sister No problems noted. Social History Does the Patient have a Healthcare Proxy: Yes (on file) Does Patient have a DNR?: Yes Does Patient have a Living Will?: Yes Does the Patient have a MOLST?: No Advance Directives on File or in chart?: Yes Hx Recent Travel (where): No Smoking Status: Former smoker HPI Additional HPI HPI Details: telemedicine confirm name confirm date of he was recently in the ER for chest pain while in the hospital, he may have been exposed to covid19 he is presently under quarantine at home he does see dispatcher service chief for CAD, chf , atrial fibrillation; he needs a refill of warfarin 2mg he has been taking tylenol neck pain, but without much relief he agrees to go and see dr. peggy alegria, transportation equipment painter in the past, he did go to physical therapy to increase muscle strength and range of motion he will be interested to go again when he has completed quarantine also, the steroid cream by venetian blind machine operator improved patient's dermatitis he tried it a second time, but there not as good results he will f/u venetian blind machine operator soon total time approx five minutes Assessment Plan Assessment Plan (1) Neck pain: Status: Acute Code(s): M54.2 - Cervicalgia SNOMED Code(s): 97456562 Category: Medical Plan - Mayuri Guardado, DO: needs improvement continue tylenol f/u pain management Orders: Referrals: Pain Management Referral (Dr Alegria) (2) Atrial fibrillation: Status: Chronic Comment: 08/10/20 INR was therapeutic for afib 2.1 Code(s): I48.91 - Unspecified atrial fibrillation SNOMED Code(s): 72199901 Category: Medical Qualifiers: Atrial fibrillation type: permanent Qualified Code(s): I48.2 - Chronic atrial fibrillation Plan - Mayuri Guardado, DO: stable refill warfarin 2mg repeat inr 1 month (3) Dermatitis: Status: Chronic Code(s): L30.9 - Dermatitis, unspecified SNOMED Code(s): 439752461 Category: Medical Plan - Mayuri Guardado, DO: 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 Orders Instructions: A-fib (Atrial Fibrillation) (GEN) Time spent Total time spent on medical discussion: five minutes Coding Level of Care Code Telemed Visit (5-10 min) Diagnoses Neck pain M54.2 Atrial fibrillation I48.2 Atrial fibrillation type: permanent Dermatitis L30.9 <Electronically signed by Mayuri Guardado DO> 08/16/20 1026 Name Value Range Interpretation Code Description Data Maribel rce(s) Supporting Document(s) ID Date Data Source [id number] 08/14/2020 01:46:00 PM EST [facility] ([facility]) Name Value Range Interpretation Code Description Data Maribel rce(s) Supporting Document(s) Testosterone [Mass/volume] in Serum or Plasma 16.61 ng/dL 300.00-1000 .00 [facility] ([facility] [place]) ID Date Data Source [id number] 08/14/2020 01:46:00 PM EST [facility] ([facility]) Name Value Range Interpretation Code Description Data Maribel rce(s) Supporting Document(s) Alanine aminotransferase [Enzymatic activity/volume] i n Serum or Plasma 13.0 U/L 0.0-55.0 [facility] ([facility] [place] Albumin [Mass/volume] in Serum or Plasma 4.5 g/dL 3.2-4.6 [facility] ([facility]) Aspartate aminotransferase [Enzymatic activity/volume] in Serum or Plasma 15.0 U/L 11.0-39.0 [facility] ([facility]) Alkaline phosphatase [Enzymatic activity/volume] in Serum or Plasma 121.0 U/L 45.0-117.0 [facility]) Bilirubin.total [Mass/volume] in Serum or Plasma 0.3 mg/dL 0.0-1.2 [facility] ([facility]) Protein [Mass/volume] in Serum or Plasma 7.1 g/dL 6.4-8.3 [facility] ([facility]) Bilirubin.direct [Mass/volume] in Serum or Plasma 0.16 mg/dL 0.00-0.5 0 [facility] ([facility]) Globulin 2.6 [facility] [place] ID Date Data Source [id number] 08/14/2020 01:46:00 PM EST [facility] ([facility]) Name Value Range Interpretation Code Description Data Maribel rce(s) Supporting Document(s) Prostate specific Ag [Mass/volume] in Serum or Plasma Labora tory test result 0.00-4.00 [facility]) ID Date Data Source [id number] 08/14/2020 01:29:00 PM EST [facility] ([facility]) Name Value Range Interpretation Code Description Data Maribel rce(s) Supporting Document(s) Glucose [Presence] in Urine Laboratory test result [facility] ([facility]) Protein [Presence] in Urine by Test strip Laboratory test result [facility] ([facility]) Ua Leuko Laboratory test result [facility] ([facility]) Blood [Presence] in Urine by Visual Laboratory test result [facility] ([facility]) Ua Nitrite Laboratory test result [facility] ([facility]) Clarity of Urine Laboratory test result [facility] ([facility]) Color of Urine Laboratory test result [facility] ([facility]) Ketones [Presence] in Urine by Test strip Laboratory test result [facility] ([facility]) Bilirubin.total [Presence] in Urine by Test strip Laboratory test res ult [facility] ([facility] [place]) Ua Specific Codorus 1.015 1.003-1.030 [facility] NT ([facility]) pH of Urine by Test strip 5.0 5.0-7.5 [facility] ([facility]) Urobilinogen [Mass/volume] in Urine by Test strip 0.2 E.U./dL 0.0-1.0 [facility] ([facility]) ID Date Data Source [id number] 08/10/2020 05:27:00 PM [facility] Anticoagulant or Thrombolytic medication :: Heparin Name Value Range Interpretation Code Description Data Maribel rce(s) Supporting Document(s) Prothrombin Time (Patient) 21.6 s 9.6-12.3 Above high normal [facility] INR 2.1 0.9-1.1 Above high normal [facility] THE INR IS OPERATIONALLY DEFINED FOR PIPPA SH PLASMA FROMPATIENTS STABILIZED ON ORAL ANTICOAGULANTS.ROUTINE ANTICOAGULANT THERAPY 2.0-3.0RECURRENT SYSTEMIC EMBOLISM/HEART VALVE REPLACEMENT 2.5-3.5 ID Date Data Source [id number] 08/10/2020 04:49:00 PM [facility] Name: BRITTON GOMEZ : 1940 Age: 80 MR#: [id number] Admit Date: 08/09/20 Provider: Flaquito Nelson MD Room #: 290 Consulting Provider: Dictation Date: 08/10/20 Discharge Summary Discharge Summary Admit Info/Diagnoses/Course Date of service:: 08/10/20 Admission Information: Patient, BRITTON GOMEZ, a 80 year old M, admitted on 08/09/20 18:05 by Shekhar Louis MD for CHEST PAIN Family MD Mayuri Guardado DO Discharge Date: 08/10/20 Most Recent Lab Results: 08/10/20 05:07 08/10/20 05:07 Laboratory Results Last 24 hours 08/09/20 15:50: TSH 2.99 08/09/20 22:45: Troponin I Less than 0.015 08/09/20 23:15: POC Glucose 116 H 08/10/20 05:07: Sodium 142, Potassium 4.1, Chloride 112 H, Carbon Dioxide 22, Anion Gap 12, BUN 70 H, Creatinine 3.0 H, GFR Calculation 20, Glucose 98, Calcium 10.1, Total Bilirubin 0.2 L, AST 18, ALT13, Alkaline Phosphatase 121, Troponin I Less than 0.015, Serum Total Protein 7.2, Albumin 3.5 08/10/20 05:07: WBC 5.0, RBC 3.39 L, Hgb 11.0 L, Hct 33.8 L, MCV 99.7 H, MCH 32.4 H, MCHC 32.5 L, RDW 14, Plt Count 130, MPV 10.9, Immature Gran % (Auto) 0.2, Neut % (Auto) 54.7, Lymph % (Auto) 28.9, Thayer % (Auto) 10.6, Eos % (Auto) 4.8, Baso % (Auto) 0.8, Lymph # (Auto) 1.5, Abs Immat Gran (auto) 0.0, Add Manu al Diff No, Absolute Neutrophils 2.8, Monocytes # 0.5, Absolute Eosinophils 0.2,Absolute Basophils 0.0 08/10/20 07:13: POC Glucose 101 08/10/20 11:39: POC Glucose 140 H Microbiology 08/09/20 15:23 Nasopharyngeal Respiratory Panel (PCR) - Final No Organisms Detected Hospital Course: 80 y/o M initially came to ER c/o one episode of chest pain at home. Repeat troponin negative EKG showed atrial fibrillation with ventricular rate 90 bpm with no acute ST changes CXR: no change from prior CXRs Throughout hospital stay pt remained asymptomatic and there was no significant event over the night. ECHO showed reserved EF. Pt was seen and examined at bedside on day of discharge. Pt stated that he is feeling fine and did not have any complaint. Pt was clinically and vitally stable at the time. Exam Condition Vital Signs - Most Recent: Last Vital Signs Temp 98.2 F 08/10/20 12:5 0 Pulse 94 08/10/20 15:44 Resp 18 08/10/20 12:50 BP 137/78 08/10/20 12:50 Pulse Ox 93 L 08/10/20 12:50 Ht Wt BMI Current Height 5 ft 7 in Current Weight 186 lb 9.6 oz Body Mass Index (BMI) 29.2 Body Mass Index (BMI) Overweight Classification General: positive Alert, positive Oriented x3 and positive Cooperative HEENT: Mucous membr. moist/pink Neck: Supple Lungs: Clear to auscultation Cardiovascular: Other (irregular ) Abdomen: Normal bowel sounds and Soft Extremities: No edema Skin: Skin warm and dry, Mucus membranes moist Neurological: Normal speech and Strength at 5/5 X4 ext Psych/Mental Status: Mood NL Medications Home Medications acetaminophen [Tylenol] 650 mg PO QID 03/15/16 [History] aspirin 81 mg PO DAILY #90 tabec 06/05/16 [History] Probiotic 1 ea PO DAILY #30 cap 02/12/17 [History] finasteride 5 mg PO DAILY #90 tab 08/19/17 [History] tamsulosin 1 tab PO DAILY #90 cap 08/19/17 [History] leuprolide 7.5 mg (1 month) subcutaneous syringe 7.5 mg SQ [id number] each 12/09/19 [History] metoprolol t artrate 12.5 mg PO BID MDD 1 12/09/19 [History] furosemide 40 mg tablet 40 mg PO BID #180 tab 12/22/19 [Rx] warfarin 2 mg tablet 2 mg PO 2XW #15 tab 02/10/20 [Rx] warfarin 3 mg tablet 3 mg PO QDAY #30 tab 02/10/20 [Rx] allopurinol 100 mg tablet 100 mg PO DAILY #90 tab 03/08/20 [Rx] ferrous gluconate 324 mg (38 mg iron) tablet 324 mg PO DAILY #90 tab 03/08/20 [Rx] lisinopril 5 mg tablet 5 mg PO DAILY #90 tab 03/08/20 [Rx] omeprazole 20 mg capsule,delayed release 20 mg PO QDAY #90 cap 03/08/20 [Rx] folic acid 1 mg tablet 1 mg PO DAILY #90 tab 03/14/20 [Rx] gemfibrozil 600 mg tablet 600 mg PO BID #180 tabs 05/16/20 [Rx] hydrocortisone 1 % topical cream 1 applic TOP BID-QID PRN #30 gm 05/16/20 [Rx] rosuvastatin 20 mg tablet 20 mg PO DAILY #90 tab 05/16/20 [Rx] albuterol sulfate 90 mcg/actuation aerosol inhaler 2 inh IH QID PRN #8.5 gm 07/11/20 [Rx] permethrin 5 % topical cream 1 applic TOPICAL Q14D #60 gm 07/11/20 [Rx] Quality Measures Tobacco Use Smoking Status: Former smoker Alcohol screening Alcohol Consumption (from nursing Hx): Never BMI Screening: Current Height: 5 ft 7 in Current Weight: 186 lb 9.6 oz Body Mass Index (BMI): 29.2 Influenza Immunization Hx/Date of Influenza Vaccination (from nursing Hx): Yes Pneumonia Vaccination (age 64) Hx/Date of Pneumococcal Vaccination (from nursing Hx): Yes Diabetes Care Measures Glucose/POC Glucose: POC Glucose last 48 hrs 08/09/20 08/10/20 08/10/20 23:15 07:13 11:39 POC Glucose 116 H 101 140 H Glucose last 48 hrs 08/09/20 08/10/20 15:50 05:07 Glucose 103 98 Discharge Plan Admission/Discharge Dx Primary DC Diagnosis: Resolved episode of chest pain Condition Condition: Good Discharge Detail Disposition: Home, Self-Care Med Rec New Prescriptions: Continued Eligard 7.5 mg (1 month) syringe 7.5 mg SQ [id number] RF: 0 lisinopril 5 mg tablet 5 mg PO DAILY Qty: 90 RF: 3 allopurinol 100 mg tablet 100 mg PO DAILY Qty: 90 RF: 3 omeprazole 20 mg capsule,delayed release(DR/EC) 20 mg PO QDAY Qty: 90 RF: 3 ferrous gluconate 324 mg (38 mg iron) tablet 324 mg PO DAILY Qty: 90 RF: 3 permethrin 5 % cream 1 applic topical Q14D Qty: 60 RF: 8 albuterol sulfate 90 mcg/actuation HFA aerosol inhaler 2 inh IH QID PRN (Reason: shortness of breath or wheezing) Qty: 8.5 RF: 0 gemfibrozil 600 mg tablet 600 mg PO BID Qty: 180 RF: 0 rosuvastatin [Crestor] 20 mg tablet 20 mg PO DAILY Qty: 90 RF: 3 hydrocortisone [Anti-Itch (HC)] 1 % cream 1 applic TOP BID-QID PRN (Reason: itching) Qty: 30 RF: 3 acetaminophen [Tylenol] 325 MG tablet 650 mg PO QID RF: 0 metoprolol tartrate 25 mg tablet 12.5 mg PO BID MDD 1 RF: 0 aspirin 81 MG tablet,delayed release (DR/EC) 81 mg PO DAILY Qty: 90 RF: 3 Probiotic 1 EACH capsule 1 ea PO DAILY Qty: 30 RF: 0 tamsulosin 0.4 MG capsule 1 tab PO DAILY Qty: 90 RF: 3 finasteride 5 MG tablet 5 mg PO DAILY Qty: 90 RF: 3 furosemide [Lasix] 40 mg tablet 40 mg PO BID Qty: 180 RF: 3 warfarin 3 mg tablet 3 mg PO QDAY Qty: 30 RF: 0 warfarin 2 mg tablet 2 mg PO 2XW Qty: 15 RF: 2 folic acid 1 mg tablet 1 mg PO DAILY Qty: 90 RF: 3 Follow Up Visit/Referrals: Mayuri Guardado DO [Primary Care Provider] - 1 Week Follow Up Care/Instructions Diet/Activity/Wound Care..: f/u with PMD after discharge f/u with PMD for INR check and Coumadin dose adjustment if needed *Discharge Patient* Discharge Orders: Discharge Order (Routine); Ordered 08/10/20 Ordered By: Flaquito Nelson Dictated by: <Electronically signed by Flaquito Nelson MD> Flaquito Nelson MD 08/10/20 1754 Flaquito Nelson MD SIGNATURE DA Report Cosigners: D: EFREN 08/10/201648 T: EFREN 08/10/201648 CC: Name Value Range Interpretation Code Description Data Maribel rce(s) Supporting Document(s) ID Date Data Source [id number] 08/10/2020 03:33:00 PM [facility] [address] [id number] [phone] NAME SEX PT STATUS ACCOUNT NUMBER BRITTON GOMEZ PAOLA JOY [id number] ORDERING PHYSICIAN LOCATION MEDICAL RECORD [facility]. [id number] ATTENDING PHYSICIAN DATE OF DATE OF EXAM/TIME Mayuri Guardado DO 1940 08/10/20 / 1001 TYPE / EXAM US Echo complete REASON FOR EXAM CHF, chest pain 2-D AND M-MODE ECHO MEASUREMENTS: Aortic root 2.1 cm, left atrium 4.1 cm. 2-D AND M-MODE STUDY: 1. Normal sized aortic root, right atrium, left ventricle, right ventricle. Enlarged left atrium. 2. Aortic valve replacement noted. Normal mitral and tricuspid valve. 3. Normal systolic function. 4. No pericardial effusion. 5. Mild MR and TR. RVSP estimated at 34 mmHg. Gradient across the aortic valve not able to be determined in view of suboptimal apical windows. CONCLUSION: 1. Normal systolic function. 2. Left atrial enlargement. 3. Mild MR and TR. 4. Aortic valve replacement unable to be interrogated. Reported By Bernardo Garnett MD on 08/10/20 1533 Signed By Bernardo Garnett MD on 08/15/20 1708 <<Signature on File>> Date Time CC: Mayuri Guardado DO; Bernardo Garnett M.D. Techn: STACY Trans Dt/Tm: 08/10/20 1612 Trans by: WESLEY Prt Dt/Tm: 5529-8554: Total DLP = 0.00 mGy-cm 9834-1819: Total Radiation Dose = 0.0000 mSv Lifetime Dose: 10.6737 mSv Name Value Range Interpretation Code Description Data Maribel rce(s) Supporting Document(s) ID Date Data Source [id number] 08/10/2020 10:38:00 AM EST [facility] [employer] [facility] [employer] Name Value Range Interpretation Code Description Data Maribel rce(s) Supporting Document(s) Creatinine [Mass/volume] in Serum or Plasma 3.0 0.5-1.1 [facility] [employer] [facility] [place] Urea nitrogen [Mass/volume] in Serum or Plasma 70 9-23 [facility] [employer] [facility] [place] ID Date Data Source [id number] 08/10/2020 10:38:00 AM EST [facility] [employer] [facility] [place] Name Value Range Interpretation Code Description Data Maribel rce(s) Supporting Document(s) Hematocrit [Volume Fraction] of Blood by Automated count 33.8 4 2-52 [facility] [employer] [facility] [place]) ID Date Data Source [id number] 08/10/2020 10:17:00 AM [facility] Name: BRITTON GOMEZ : 1940 Age: 80 MR#: [id number] Admit Date: 08/09/20 Provider: Shekhar Louis MD Room #: 290 Consulting Provider: Dictation Date: 08/10/20 Progress Note Subjective-ROS Date of service Date of service:: 08/10/20 Review of Systems ROS (Free Text/Narrative):: No further episodes of chest pain overnight General: Denies Fever and Chills HEENT: Denies Headaches Endocrine: Denies Excessive sweating Cardiovascular: Denies Chest Pain Pulmonary: Denies Dyspnea Gastrointestinal: Denies nausea, vomiting and abdominal pain Genitourinary: Denies Dysuria Musculoskeletal: Denies Muscle Pain Neurological: Denies Weakness Psych: Denies anxiety and feelings of guilt Hematological/Lymphatic: Denies easy bleeding Allergic/Immunologic: Denies rash Attestation/Length Of Stay: 08/09/20 18:05 Observation Order [STATUS] Routine Location: [facility] Primary diagnosis: Chest pain Isolation: Standard precautions Observation Status: OBV less than 2 midnights Anticipated Length of stay:: NA -Observation Patient Vital Signs and I O Vitals and I O: Vital Signs last 12 hours Temp Pulse Resp BP Pulse Ox 08/10/20 08:41 91 128/83 08/10/20 08:39 91 128/83 08/10/20 05:45 97.2 F L 85 18 111/66 94 L 08/10/20 05:41 85 111/66 08/10/20 01:28 96 08/09/20 23:11 93 141/85 08/09/20 23:10 97.6 F 93 141/85 Intake Output Last 24 Hours 08/08/20 08/09/20 08/10/20 23:59 23:59 23:59 Intake Total 240 / 240 Balance 240 / 240 Current Weight 186 lb 9.6 oz Results Results: 08/10/20 05:07 08/10/20 05:07 Laboratory Results Last 24 hours 08/09/20 15:50: WBC 5.1, RBC 3.57 L, Hgb 11.6 L, Hct 36.1 L, MCV 101.1 H, MCH 32.5 H, MCHC 32.1 L, RDW 14, Plt Count 148, MPV 11.5, Immature Gran % (Auto) 0.2, Neut % (Auto) 59.8, Lymph % (Auto) 24.3, Thayer % (Auto) 10.7, Eos % (Auto) 4.2, Baso % (Auto) 0.8, Lymph # (Auto) 1.2, Abs Immat Gran (auto) 0.0, Add Manual Diff No, Absolute Neutrophils 3.0, Monocytes # 0.5, Absolute Eosinophils 0.2, Absolute Basophils 0.0 08/09/20 15:50: Sodium 142, Potassium 4.8, Chloride 111 H, Carbon Dioxide 22, Anion Gap 14, BUN 70 H, Creatinine 3.2 H, GFR Calculation 19, Glucose 103, Calcium 10.0, Total Bilirubin 0.2 L, AST 13, ALT 15, Alkaline Phosphatase 131 H, Troponin I Less than 0.015, Serum Total Protein 7.7, Albumin 3.7 08/09/20 15:50: TSH 2.99 08/09/20 22:45: Troponin I Less than 0.015 08/09/20 23:15: POC Glucose 116 H 08/10/20 05:07: Sodium 142, Potassium 4.1, Chloride 112 H, Carbon Dioxide 22, Anion Gap 12, BUN 70 H, Creatinine 3.0 H, GFR Calculation 20, Glucose 98, Calcium 10.1, Total Bilirubin 0.2 L, AST 18, ALT 13, Alkaline Phosphatase 121, Troponin I Less than 0.015, Serum Total Protein 7.2, Albumin 3.5 08/10/20 05:07: WBC 5.0, RBC 3.39 L, Hgb 11.0 L, Hct 33.8 L, MCV 99.7 H, MCH 32.4 H, MCHC 32.5 L, RDW 14, Plt Count 130, MPV 10.9, Immature Gran % (Auto) 0.2, Neut % (Auto) 54.7, Lymph % (Auto) 28.9, Thayer % (Auto) 10.6, Eos % (Auto) 4.8, Baso % (Auto) 0.8, Lymph # (Auto) 1.5, Abs Immat Gran (auto) 0.0, Add Manual Diff No, Absolute Neutrophils 2.8, Monocytes # 0.5, Absolute Eosinophils 0.2, Absolute Basophils 0.0 08/10/20 07:13: POC Glucose 101 Microbiology 12/30/20 15:23 Nasopharyngeal Respiratory Panel (PCR) - Final No Organisms Detected Exam Orientation: Alert HEENT: Atraumatic, PERRLA and EOMI Lungs: normal lung sounds bilaterally Cardiovascular Exam: regular rate and normal rhythm Abdomen: Normal bowel sounds and Soft; negative for Tenderness Extremities: normal inspection Skin: Skin warm and dry, Mucus membranes moist Neurological: Normal speech Psych/Mental Status: normal affect Assessment/Plan A P Free Text/Narrative :: Impression: 1. Chest pain 2. Atrial fibrillation 3. Status post CABG two-vessel 4. Redo CABG x1 5. Status post bioprosthetic aortic valve replacement 6. Status post aneurysm repair 7. Hyperlipidemia 8. Peripheral vascular disease 9. Status post coronary stent 10. Chronic renal failure stage IV 11. Benign prostatic hyperplasia 12. Type 2 diabetes mellitus 13. Prostate cancer 14. Pruritus 15. Presyncope 16. 4 mm radiodensity left eyeball Plan: Patient clinically stable. Await echocardiogram. Patient may be discharged later this afternoon if results are within normal limits. Oncoming provider will follow up on test results as I will be going off service soon. Appreciate pharmacy consult regarding Coumadin management. Ultrasound results carotid reviewed. Patient will need close follow-up with ophthalmology urgently regarding the radiodensity noted on CAT scan of head. If patient is not discharged later this afternoon then he will need to be made inpatient. Continue metoprolol lisinopril Lopid Lipitor tamsulosin aspirin Lasix Prilosec insulin sliding scale allopurinol Proscar Coumadin. Patient DNR/DNI Dictated by: <Electronically signed by Shekhar Louis MD> Shekhar Louis MD 08/10/20 1056 Shekhar Louis MD SIGNATURE DA Report Cosigners: D: KIRIT 08/10/20 1017 T: KIRIT 08/10/20 1017 CC: Name Value Range Interpretation Code Description Data Maribel rce(s) Supporting Document(s) ID Date Data Source [id number] 08/10/2020 06:10:00 AM [facility] Name Value Range Interpretation Code Description Data Maribel rce(s) Supporting Document(s) Urea nitrogen [Mass/volume] in Serum or Plasma 70 mg/dL 9-23 Above high normal [facility] Sodium [Moles/volume] in Serum or Plasma 142 mmol/L 132-146 N [facility] Potassium [Moles/volume] in Serum or Plasma 4.1 mmol/L 3.5-5.5 N [facility] Chloride [Moles/volume] in Serum or Plasma 112 mmol/L 99-109 Above high normal [facility] Carbon dioxide, total [Moles/volume] in Serum or Plasma 22 mmol/L 20 -31 N [facility] Anion gap in Serum or Plasma 12 mmol/L 8-16 N L [facility] Glucose [Mass/volume] in Serum or Plasma 98 mg/dL 74-106 N [facility] Creatinine 3.0 mg/dL 0.5-1.1 Above high normal [facility] Glomerular filtration rate/1.73 sq M.pre dicted [Volume Rate/Area] in Serum or Plasma 20 ml/min ABOVE 60 [facility] ital Alanine aminotransferase [Enzymatic acti vity/volume] in Serum or Plasma by With P-5'-P 13 U/L 10-49 N [facility] ital Aspartate aminotransferase [Enzymatic ac tivity/volume] in Serum or Plasma by With P-5'-P 18 U/L 0-33 N [facility] pital Alkaline phosphatase [Enzymatic activity/volume] in Serum or Plasma 121 U/L 45-129 N [facility] Calcium [Mass/volume] in Serum or Plasma 10.1 mg/dL 8.5-10.1 [facility] Bilirubin.total [Mass/volume] in Serum or Plasma 0.2 mg/dL 0.3-1.2 Below low normal [facility] Albumin [Mass/volume] in Serum or Plasma by Bromocresol purple (BCP) dye binding method 3.5 g/dL 3.2-4.8 [facility] ital Protein [Mass/volume] in Serum or Plasma 7.2 g/dL 5.7-8.2 [facility] ID Date Data Source [id number] 08/10/2020 06:10:00 AM EST [facility] Name Value Range Interpretation Code Description Data Maribel rce(s) Supporting Document(s) Troponin I.cardiac [Mass/volume] in Serum or Plasma Less Than 0.015 0.00-0.09 N [facility] Less than 0.09 NG/ML Negative0.10 - 0.77 NG/ML High Risk0.78 NG/ML or Greater PositiveThe WHO defined the cutoff (definition for diagnosis of [place])for this method as 0.78 ng/ml. ID Date Data Source [id number] 08/10/2020 05:14:00 AM EST [facility] Name Value Range Interpretation Code Description Data Maribel rce(s) Supporting Document(s) Leukocytes [#/volume] in Blood by Automated count 5.0 10*3/uL 4.45-10 .71 N [facility] Erythrocytes [#/volume] in Blood by Automated count 3.39 10*6/uL 4.3-6.1 Below low normal [facility] Hemoglobin [Moles/volume] in Blood 11.0 g/dL 13-18 Below low no rmal [facility] Hematocrit [Volume Fraction] of Blood by Automated count 33.8 % 42-52 Below low normal [facility] Erythrocyte mean corpuscular volume [Ent itic volume] in Cord blood by Automated count 99.7 fL 80-96 Above high normal [facility] Erythrocyte mean corpuscular hemoglobin [Entitic mass] by Automated count 32.4 pg 27-31 Above high normal [facility] spital Erythrocyte mean corpuscular hemoglobin concentration [Mass/volume] in Cord blood 32.5 g/dL 33-37 Below low normal [facility] Erythrocyte distribution width [Entitic volume] by Automated count 14 % 11-15 N [facility] Platelets [#/volume] in Blood by Automated count 130 10*3/uL 130-472 N [facility] Platelet mean volume [Entitic volume] in Blood 10.9 fL 9.1-13.1 N [facility] Neutrophils/100 leukocytes in Blood by Automated count 54.7 % 41- 77 N [facility] Neutrophils [#/volume] in Blood by Automated count 2.8 U 1.7-7.6 N [facility] Lymphocytes/100 leukocytes in Blood by Automated count 28.9 % 14- 46 N [facility] Lymphocytes [#/volume] in Blood by Automated count 1.5 U 0.6-4.6 N [facility] Monocytes/100 leukocytes in Blood by Automated count 10.6 % 4-12 N [facility] Monocytes [#/volume] in Blood by Automated count 0.5 U 0.2-1.2 N [facility] Eosinophils/100 leukocytes in Blood by Automated count 4.8 % 0-7 N [facility] Eosinophils [#/volume] in Blood by Automated count 0.2 U 0.0-0.5 N [facility] Basophils/100 leukocytes in Blood by Automated count 0.8 % 0.4-1 .3 N [facility] Basophils [#/volume] in Blood by Automated count 0.0 U 0.0-0.2 N [facility] NUCLEATED RED BLOOD CELL 0 % [facility] NUCLEATED RED BLOOD CELL# [address] [facility] Immature granulocytes [Presence] in Blood by Automated count 0-2 N [facility] Immature granulocytes [#/volume] in Blood by Automated count 0.0 U 0-0.1 N [facility] Manual Differential panel - Blood NO [facility] ID Date Data Source [id number] 08/09/2020 11:18:00 PM EST [facility] Name Value Range Interpretation Code Description Data Maribel rce(s) Supporting Document(s) Troponin I.cardiac [Mass/volume] in Serum or Plasma Less Than 0.015 0.00-0.09 [facility] Less than 0.09 NG/ML Negative0.10 - 0.77 NG/ML High Risk0.78 NG/ML or Greater PositiveThe WHO defined the cutoff (definition for diagnosis of [place])for this method as 0.78 ng/ml. ID Date Data Source [id number] 08/09/2020 07:27:00 PM EST [facility] [address] [place] [address] [phone] NAME SEX PT STATUS ACCOUNT NUMBER BRITTON GOMEZ ADM JOY [id number] ORDERING PHYSICIAN LOCATION MEDICAL RECORD NO. Jael Looney [id number] ATTENDING PHYSICIAN DATE OF DATE OF EXAM/TIME Mayuri Guardado DO 1940 08/09/201915 TYPE / EXAM US Carotid art complete bilat REASON FOR EXAM Dizziness, chest pain Clinical History/Indication for Exam: Dizziness, chest pain US DUPLEX BILATERAL EXTRACRANIAL ARTERIES INDICATION: Dizziness, chest pain TECHNIQUE: Real-time duplex ultrasound scan of the extracranial arteries integrating B- mode two-dimensional vascular structure, Doppler spectral analysis and [...] M.D. Reported By Hema Oleary MD on 1926 Signed By Hema Oleary MD on 08/09/201926 Date Time CC: Mayuri Guardado DO; Hema Oleary MD Techn: JORDIN Trans Dt/Tm: Trans by: DT Prt Dt/Tm: : Total DLP = 0.00 mGy-cm : Total Radiation Dose = 0.0000 mSv Lifetime Dose: 10.6737 mSv Name Value Range Interpretation Code Description Data Maribel rce(s) Supporting Document(s) ID Date Data Source [id number] 08/09/2020 07:21:00 PM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 10-36 [facility] MID% 10 % 6-12 [facility] NEUT% 60 % 52-82 [facility] LY# 1.06 x10 0.50-2.70 [facility] MID# 0.50 x10 0.30-0.90 [facility] NEUT# 2.88 x10 1.50-7.90 [facility] EO% 6.1 % 0.0-6.0 Above high normal [facility] EO# 0.3 x10 0.0-0.5 [facility] BASO% 1.0 % 0.0-1.0 [facility] BASO# 0.05 x10 0.00-0.09 [facility] IG% 0.2 % 0.0-0.9 [facility] IG# 0.0 x10 0.0-0.1 [facility] ID Date Data Source [id number] 06/23/2020 02:09:00 PM [facility] Patient Name: BRITTON GOMEZ : 1940 Sex: M Pt Unit #: [id number] Location:[facility] Provider: Visit Date/Time: 06/23/20 Primary Insurance: [employer] Secondary Insurance: [facility] Intake Intake Visit Reasons: Telemed Visit Nurse Note: 80 year old male doing a telemed visit today regarding his INR. It was 3.4 this morning.Did see the dematologist yesterday for the itching all over. Allergies No Known Drug Allergies Allergy (Verified 06/23/20 14:15) HIV Testing Offer - ages 13-64 Requirement for HIV testing offer been met?: Not in age range [facility] Medical History (Updated 06/23/20 @ 14:27 by Mayuri Guardado DO) Anemia Atrial fibrillation with controlled ventricular response Bleeding diathesis BPH w urinary obs/LUTS (08/19/17) Bradycardia Bug bite without infection Carpal tunnel syndrome on right (09/27/14) Chronic atrial fibrillation (06/11/16) Chronic renal impairment, stage 3 (moderate) (10/09/15) CKD (chronic kidney disease) stage 3, GFR 30-59 ml/min Congestive heart failure (CHF) Coronary artery disease 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 (09/27/14) Diabetes mellitus type 2 in obese (10/24/14) Exercise-induced shortness of breath Foreign body in hand (07/25/14) Heart murmur Hypercholesterolemia (01/06/15) Hyperlipidemia Hypertension Hypertension, essential, benign (01/06/15) Ischemic colitis (02/19/16) Itch of skin Itching due to drug Laceration of ear, external, left, complicated Late eff nerv injury shld/arm (07/25/14) Late effect of tendon injury (07/25/14) Neck pain on left side On warfarin therapy (12/08/18) Peripheral vascular disease in diabetes mellitus (01/06/15) Prostate nodule Seborrheic keratosis (09/26/16) Skin sensation disturbance (07/25/14) Tachycardia Tick bite Traumatic arthropathy, 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 Father Heart disease Brother No problems noted. Brother Hyperlipidemia Hypertension Brother No problems noted. Sister No problems noted. Sister No problems noted. Sister Multiple sclerosis Sister No problems noted. Sister No problems noted. Social History Does the Patient have a Healthcare Proxy: Yes Does Patient have a DNR?: No Does Patient have a Living Will?: Yes Does the Patient have a MOLST?: No Advance Directives on File or in chart?: No Hx Recent Travel (where): No Smoking Status: Former smoker HPI Additional HPI HPI Details: telemedicine appt confirm name confirm date of is helping patient with the warfarin for atrial fibrillation t hey are informed that the INR is 3.4 and is too high in may it was on target he denies any changes to his diet patient's agrees to decrease the dosage schedule he will take 2 mg on Friday, friday, the other 4 days will be 3mg he will repeat inr on 06/30/2020 , next friday he has hydrocortisone for the itch he went to [place] to see doctor he also went to [place] to see electronic technologist and lots of blood test was done he gets the hydrocortisone over the counter he denies other complaints total telemedicin time is approx 7 minutes Assessment Plan Assessment Plan (1) Atrial fibrillation: Status: Chronic Comment: may 2020 INR was therapeutic for afib Code(s): I48.91 - Unspecified atrial fibrillation SNOMED Code(s): 54038358 Category: Medical Qualifiers: Atrial fibrillation type: permanent Qualified Code(s): I48.2 - Chronic atrial fibrillation Plan - Mayuri Guardado DO: agrees to decrease warfarin schedule new dosage schedule is 2mg on Friday , friday, and the other four days will be 3mg repeat inr in about one week if condition worsens, then go to ER (2) Itch of skin: Status: Chronic Code(s): L29.9 - Pruritus, unspecified SNOMED Code(s): 933415917 Category: Medical Plan - Mayuri Guardado DO: hydrocortisone prn f/u dermatolgist f/u electronic technologist <Electronically signed by Mayuri Guardado DO> 06/23/20 1446 Name Value Range Interpretation Code Description Data Maribel rce(s) Supporting Document(s) ID Date Data Source [id number] 06/23/2020 10:15:00 AM [facility] Name Value Range Interpretation Code Description Data Maribel rce(s) Supporting Document(s) Prothrombin Time (Patient) 34.0 s 9.6-12.3 Above high normal [facility] INR 3.4 0.9-1.1 Above high normal [facility] THE INR IS OPERATIONALLY DEFINED FOR PIPPA SH PLASMA FROMPATIENTS STABILIZED ON ORAL ANTICOAGULANTS.ROUTINE ANTICOAGULANT THERAPY 2.0-3.0RECURRENT SYSTEMIC EMBOLISM/HEART VALVE REPLACEMENT 2.5-3.5 ID Date Data Source [id number] 05/23/2020 10:34:00 AM [facility] Name Value Range Interpretation Code Description Data Maribel rce(s) Supporting Document(s) Prothrombin Time (Patient) 25.7 s 9.6-12.3 Above high normal [facility] INR 2.5 0.9-1.1 Above high normal [facility] THE INR IS OPERATIONALLY DEFINED FOR PIPPA SH PLASMA FROMPATIENTS STABILIZED ON ORAL ANTICOAGULANTS.ROUTINE ANTICOAGULANT THERAPY 2.0-3.0RECURRENT SYSTEMIC EMBOLISM/HEART VALVE REPLACEMENT 2.5-3.5 ID Date Data Source [id number] 05/16/2020 09:49:00 AM [facility] Patient Name: BRITTON GOMEZ : 1940 Sex: M Pt Unit #: [id number] Location:[facility] Provider: Visit Date/Time: 05/16/20 Primary Insurance: MEDICARE [employer] Secondary Insurance: AARP Intake Vital Signs 05/16/20 09:50 Current Height 5 ft 6 in Current Weight 191 lb 4 oz Weight Measurement Method Standing Scale BMI 30.9 BP 120/70 Blood Pressure Location Rt brachial Position Sitting Respiration 18 Pulse 94 Pulse Source Pulse Oximeter Pulse Oximetry (%) 97 Intake Visit Reasons: Rash Nurse Note: 80 year old male c/o itchy rash on arms, chest, and back. Has a wart on his little finger on his left hand he would like treated. INR was 3.2 and will recheck in 1 week.Would like a derm. referral. Varnish Maker Required: No Accompanied by: Is patient in pain?: No Allergies No Known Drug Allergies Allergy (Verified 05/16/20 10:44) HIV Testing Offer - ages 13-64 Requirement for HIV testing offer been met?: Not in age range Do you need a note to return Do you need a note to return to daycare/school/sports/work: No Coronavirus Screening Screening Have you traveled outside of [facility] or [facility] in the last 14 days.: Yes Has patient experienced coronavirus symptoms: No [facility] Medical History (Updated 05/16/20 @ 13:05 by Mayuri Guardado DO) Anemia Atrial fibrillation with controlled ventricular response Bleeding diathesis BPH w urinary obs/LUTS (08/19/17) Bradycardia Bug bite without infection Carpal tunnel syndrome on right (09/27/14) Chronic atrial fibrillation (06/11/16) Chronic renal impairment, stage 3 (moderate) (10/09/15) CKD (chronic kidney disease) stage 3, GFR 30-59 ml/min Congestive heart failure (CHF) Coronary artery disease 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 (09/27/14) Diabetes mellitus type 2 in obese (10/24/14) Exercise-induced shortness of breath Foreign body in hand (07/25/14) Heart murmur Hypercholesterolemia (01/06/15) Hyperlipidemia Hypertension Hypertension, essential, benign (01/06/15) Ischemic colitis (02/19/16) Itch of skin Itching due to drug Laceration of ear, external, left, complicated Late eff nerv injury shld/arm (07/25/14) Late effect of tendon injury (07/25/14) Neck pain on left side On warfarin therapy (12/08/18) Peripheral vascular disease in diabetes mellitus (01/06/15) Prostate nodule Seborrheic keratosis (09/26/16) Skin sensation disturbance (07/25/14) Tachycardia Tick bite Traumatic arthropathy, 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 Father Heart disease Brother No problems noted. Brother Hyperlipidemia Hypertension Brother No problems noted. Sister No problems noted. Sister No problems noted. Sister Multiple sclerosis Sister No problems noted. Sister No problems noted. Social History Does the Patient have a Healthcare Proxy: Yes Does Patient have a DNR?: No Does Patient have a Living Will?: Yes Does the Patient have a MOLST?: No Advance Directives on File or in chart?: No Hx Recent Travel (where): No Smoking Status: Former smoker HPI Rash Current symptoms: Reports pruritus; Denies asymptomatic, erythema, blistering, spreading, scaling, weeping/oozing, purpuric, ulceration, pain or trouble sleeping Location: arms, chest and back Onset: adulthood Frequency: daily Timing: spring, summer, fall and winter Additional details: denies Associated symptoms: Denies abdominal pain, cough, lethargy, irritability, sore throat, glossitis, arthralgias, crankiness, fever(s), myalgias, vomiting, congestion, anorexia, headache(s), nausea or oral ulcers Symptoms aggravated by: Reports none Previous testing: none Previous treatment: topical steroids Review of Systems Const Denies anorexia, Denies fever(s), Denies headache(s) and Denies lethargy Eyes Denies itchy eyes ENT Denies headache(s), Denies lip swelling, Denies sore throat, Denies throat swelling and Denies tongue swelling Resp Denies cough and Denies wheezing GI Denies abdominal pain, Denies nausea and Denies vomiting Musc Denies myalgias and Denies arthralgias Skin/Breast Reports pruritus and Denies erythema Neuro Denies headache(s) Psych Denies irritability Jayy/Lymph Denies easy bleeding, Denies easy bruising and Denies lymphadenopathy Aller/Immun Denies GI upset with certain foods, Denies itchy eyes, Denies lip swelling, Denies seasonal rhinorrhea, Denies throat swelling, Denies tongue swelling and Denies wheezing Exam Const General: cooperative, healthy appearing, comfortable and no acute distress Nutritional Appearance: obese Orientation: alert and awake HENMT Head: normal to inspection, normocephalic and atraumatic Eyes General: appearance normal, both eyes and all related structures Visual Villasenor: normal visual villasenor by confrontation Alignment and Position: alignment normal EOM: EOM intact bilaterally Neck Neck: normal visual inspection, full ROM, supple and JVD present Neck mass: No Thyroid: thyroid normal Carotids: normal carotid upstroke Lymphatic: no lymphadenopathy noted Chest Chest: other (scar from open heart surgery) Resp Effort Inspection: normal respiratory effort Auscultation: clear to auscultation bilaterally Cardio Rate: regular rate Rhythm: abnormal rhythm irregularly irregular Heart Sounds: murmur Bruits: no carotid bruits Pulses: radial pulses present GI Inspection: Yes obesity Palpation: soft Auscultation: normal bowel sounds Skin Lesions: lesion noted (warts on left fifth finger) Rashes: rashes noted (small red papules , nontender, nondrainage) back, chest, arms nontender Trauma: no lacerations or abrasions Wounds: no wounds Assessment Plan Assessment Plan (1) Rash: Code(s): R21 - Rash and other nonspecific skin eruption Plan - Mayuri Guardado DO: hydrocortisone as ordered if worsens, then go to ER and patient denies new foods, new soaps, new detergents, denies pets (2) Itch of skin: Status: Chronic Code(s): L29.9 - Pruritus, unspecified SNOMED Code(s): 461269578 Category: Medical Plan - Mayuri Guardado DO: f/u electronic technologist hydrocortisone prn itch hydrocortisone provides relief for about 3 hours if condition worsens, then go to ER Orders: Referrals: Allergy Referral (3) Viral wart on finger: Status: Acute Code(s): B07.9 - Viral wart, unspecified SNOMED Code(s): 620867809 Category: Medical Plan - Mayuri Guardado DO: f/u venetian blind machine operator Orders: Referrals: Dermatology Referral (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 Code(s): Z95.2 - Presence of prosthetic heart valve SNOMED Code(s): 6839586567720 Category: Surgical Plan - Mayuri Guardado DO: inr is therapeutic between 2.5 - 3.5 continue current warfarin schedule repeat inr in about one week Orders Other Medications: Refilled: gemfibrozil 600 mg PO BID #180 0RF rosuvastatin (Crestor) 20 mg PO DAILY 90 tabs 3RF hydrocortisone 1% (Anti-Itch (hydrocortisone)) 1 applic topical BID-QID PRN 30 grams 3RF itching Follow Up: 6 (diabetes) Electronically Signed By: <Electronically signed by Mayuri Guardado DO> Date/Time Signed: 05/16/201921 Name Value Range Interpretation Code Description Data Maribel rce(s) Supporting Document(s) ID Date Data Source [id number] 05/12/2020 08:24:00 AM EDT [facility] Name Value Range Interpretation Code Description Data Maribel rce(s) Supporting Document(s) Prothrombin Time (Patient) 32.4 s 9.6-12.3 Above high normal [facility] INR 3.2 0.9-1.1 Above high normal [facility] THE INR IS OPERATIONALLY DEFINED FOR PIPPA SH PLASMA FROMPATIENTS STABILIZED ON ORAL ANTICOAGULANTS.ROUTINE ANTICOAGULANT THERAPY 2.0-3.0RECURRENT SYSTEMIC EMBOLISM/HEART VALVE REPLACEMENT 2.5-3.5 ID Date Data Source [id number] 05/10/2020 02:15:00 PM EDT [facility] [place] Name Value Range Interpretation Code Description Data Maribel rce(s) Supporting Document(s) Protein [Mass/volume] in Serum or Plasma 7.2 g/dL 6.4-8.2 [facility] ([facility] [place]) Albumin/Globulin [Mass Ratio] in Serum or Plasma 1.4 RATIO [facility] ([facility] [place]) Albumin [Mass/volume] in Serum or Plasma 4.2 g/dL 3.2-4.5 [facility] ([facility]) Globulin [Mass/volume] in Serum 3.0 g/dL 2.7-4.3 [facility] ([facility]) Bilirubin.total [Mass/volume] in Serum or Plasma 0.3 mg/dL 0.0-1.0 [facility] ([facility]) PLEASE NOTE: Total bilirubin results may be falsely elevated in patients taking Eltrombopag. Bilirubin.direct [Mass/volume] in Serum or Plasma 0.1 mg/dL 0.0-0.3 [facility] ([facility]) Bilirubin.indirect [Mass/volume] in Serum or Plasma 0.2 mg/dL 0.0-0. 7 [facility] ([facility]) Aspartate aminotransferase [Enzymatic activity/volume] in Serum or Plasma 15 U/L 11-39 [facility] ([facility]) Alkaline phosphatase [Enzymatic activity/volume] in Serum or Plasma 142 U/L 45-117 [facility] ([facility]) Alanine aminotransferase [Enzymatic activity/volume] in Seru m or Plasma 16 U/L 12-78 [facility] ([facility]) ID Date Data Source [id number] 05/10/2020 02:15:00 PM EDT [facility] ([facility]) Name Value Range Interpretation Code Description Data Maribel rce(s) Supporting Document(s) Prostate specific Ag [Mass/volume] in Serum or Plasma 0.1 ng/mL 0.0- 4.0 [facility] ([facility]) IN 20% OF CASES W/ BPH, PSA MAY BE 10 NG/ML OR MORE. SERUM PSA CONCENTRATION SHOULD NOT BE INTERPRETED ABSOLUTE EVIDENCE FOR THE PRESENCE OR ABSENCE OF MALIGNANT DISEASE. METHOD IS SIEMENS [employer] LOCI CHEMILUMINESCENT IMMUNOASSAY (CALIBRATION TRACEABLE TO WHO , 1998,96/668). VALUES OBTAINED WITH DIFFERENT ASSAY METHODS OR KITS CANNOT BE USED INTERCHANGEABLY. ID Date Data Source [id number] 05/10/2020 02:15:00 PM EDT [facility] ([facility]) Name Value Range Interpretation Code Description Data Maribel rce(s) Supporting Document(s) Testosterone Free [Mass/volume] in Serum or Plasma 2 pg/mL 47-244 [facility] ([facility] [place]) THE CONCENTRATION OF FREE TESTOSTERONE I S DERIVED FROM A MATHEMATICAL EXPRESSION BASED ON THE CONSTANT FOR THE BINDING OF TESTOSTERONE TO SHBG. Testosterone [Mass/volume] in Serum or Plasma 10 ng/dL 87-780 [facility] ([facility] [place]) PLEASE NOTE: REFERENCE RANGE IS GENDER SPECIFIC FOR ADULTS ONLY. AGE/BERTIN STAGE APPROPRIATE REFERENCE RANGES HAVE NOT BEEN ESTABLISHED FOR THIS METHODOLOGY. Testosterone Free/Testosterone.total in Serum or Plasma 2.0 % 1. 6-2.9 [facility] ([facility] [place]) Sex hormone binding globulin [Moles/volume] in Serum or Plasma 2 7 nmol/L 22-113 [facility] ([facility] [place]) ADULT REFERENCE RANGE ID Date Data Source [id number] 05/10/2020 08:35:28 PM EDT [facility] Name Value Range Interpretation Code Description Data Maribel rce(s) Supporting Document(s) TESTOSTERONE,TOTAL @ 10 ng/dL (87-780) L [facility]ator [facility] PLEASE NOTE:REFEREN CE RANGE IS GENDER SPECIFICFOR ADULTS ONLY. AGE/BERTIN STAGEAPPROPRIATE REFERENCE RANGES HAVENOT BEEN ESTABLISHED FOR THISMETHODOLOGY. TESTO, FREE 2 pg/mL (47-244) L [facility] THE CONCENTRATION OF FREE TESTOSTERONE I SDERIVED FROM A MATHEMATICAL EXPRESSION BASEDON THE CONSTANT FOR THE BINDING OFTESTOSTERONE TO SHBG. TESTO, PERCENT FREE 2.0 % (1.6-2.9) Laboratory [facility] SEX HORM BIND GLOB @ 27 nmol/L (22-113) Laborator y [facility] ADULT REFERENCE RANGE ID Date Data Source [id number] 05/10/2020 08:36:14 PM EDT [facility] Name Value Range Interpretation Code Description Data Maribel rce(s) Supporting Document(s) PSA TOTAL 0.1 ng/mL (0.0-4.0) [facility] IN 20% OF CASES W/ BPH, PSA MAY BE10 NG/ ML OR MORE. SERUM PSACONCENTRATION SHOULD NOT BE INTERPRETEDAS ABSOLUTE EVIDENCE FOR THE PRESENCEOR ABSENCE OF MALIGNANT DISEASE. METHODIS [employer] LOCI CHEMILUMINESCENTIMMUNOASSAY (CALIBRATION TRACEABLE TOWHO , 1998,96/668).VALUES OBTAINED WITH DIFFERENT ASSAYMETHODS OR KITS CANNOT BE USEDINTERCHANGEABLY. ID Date Data Source [id number] 05/10/2020 08:36:14 PM EDT [facility] Name Value Range Interpretation Code Description Data Maribel rce(s) Supporting Document(s) TOTAL PROTEIN 7.2 g/dL (6.4-8.2) [facility] - CORE ALBUMIN 4.2 g/dL (3.2-4.5) [facility] - CORE GLOBULIN 3.0 g/dL (2.7-4.3) [facility] - CORE ALB/GLOB RATIO 1.4 RATIO [facility] - CORE BILIRUBIN,TOTAL 0.3 mg/dL (0.0-1.0) [facility] - CORE PLEASE NOTE:Total bilirubin results may be falselyelevated in patients taking Eltrombopag. BILIRUBIN,CONJUGATED 0.1 mg/dL (0.0-0.3) Laborator y [facility] - CORE BILIRUBIN,UNCONJ. 0.2 mg/dL (0.0-0.7) [facility] - CORE ALKALINE PHOSPHATASE 142 U/L (45-117) H Laborator [facility] - CORE AST (SGOT) 15 U/L (11-39) [facility] - CORE ALT (SGPT) 16 U/L (12-78) [facility] - CORE ID Date Data Source [id number] 05/10/2020 01:57:00 PM EDT [facility] ([facility] [place]) Name Value Range Interpretation Code Description Data Maribel rce(s) Supporting Document(s) Glucose [Presence] in Urine Laboratory test result [facility] ([facility]) Protein [Presence] in Urine by Test strip Laboratory test result [facility] ([facility]) Blood [Presence] in Urine by Visual Laboratory test result [facility] ([facility]) Ua Nitrite Laboratory test result [facility] ([facility]) Ua Leuko Laboratory test result [facility] ([facility]) Clarity of Urine Laboratory test result [facility] ([facility]) Ketones [Presence] in Urine by Test strip Laboratory test result [facility] ([facility] [place]) Color of Urine Laboratory test result [facility] ([facility]) pH of Urine by Test strip 5.5 5.0-7.5 [facility] ([facility]) Ua Specific Codorus 1.015 1.003-1.030 [facility] NT ([facility]) Bilirubin.total [Presence] in Urine by Test strip Laboratory test res ult [facility] ([facility] [place]) Urobilinogen [Mass/volume] in Urine by Test strip 0.2 E.U./dL 0.0-1.0 [facility] ([facility] Assistant Production [facility]) ID Date Data Source [id number] 04/05/2020 10:12:00 AM EDT [facility] Name Value Range Interpretation Code Description Data Maribel rce(s) Supporting Document(s) WBC 5.1 x10 4.1-11.0 [facility] RBC 3.5 x10 4.1-5.5 Below low normal [facility] HGB 11.1 g/dL 12.5-17.9 Below low normal [facility] HCT 33.2 % 36.5-50.1 Below low normal [facility] MCV 94.3 fL 80.7-98.5 [facility] MCH 31.5 pg 27.5-34.7 [facility] MCHC 33.4 g/dl 32.4-36.0 [facility] PLT 147 x10 143-377 [facility] LY% 31 % 10-36 [facility] MID% 12 % 6-12 [facility] NEUT% 54 % 52-82 [facility] LY# 1.56 x10 0.50-2.70 [facility] MID# 0.61 x10 0.30-0.90 [facility] NEUT# 2.74 x10 1.50-7.90 [facility] EO% 3.1 % 0.0-6.0 [facility] EO# 0.2 x10 0.0-0.5 [facility] BASO% 0.6 % 0.0-1.0 [facility] BASO# 0.03 x10 0.00-0.09 [facility] IG% 0.2 % 0.0-0.9 [facility] IG# 0.0 x10 0.0-0.1 [facility] ID Date Data Source [id number] 04/05/2020 10:12:00 AM EDT [facility] Name Value Range Interpretation Code Description Data Maribel rce(s) Supporting Document(s) GL 90 mg/dl 74-106 [facility] BUN 94 mg/dl 7-18 PH [facility] RC=Result Confirmed CR 4.1 mg/dl 0.8-1.3 Above high normal [facility] NA 139 mmol/L 136-145 [facility] K 4.4 mmol/L 3.6-5.2 [facility] CL 103 mmol/L 100-108 [facility] ECO2 23 mmol/L 21-32 [facility] ANION GAP 14 mmol/l 3-11 Above high normal [facility] CA 10.1 mg/dl 8.5-10.2 [facility] PO4 4.5 mg/dl 2.6-4.7 [facility] ALB 4.0 g/dl 3.4-5.0 [facility] GFR 15.0 74.0-76.0 Below low normal [facility] *Estimated Glomerular Filtration Rate[GF R] is calculated based on the MDRD formula.The formula used to estimate GFR in this equation is appropriate for adults only.Estimated GFR should not be used for medication dosing. Follow buttermaker helper's instructions for medication dosing.Age (Years) Average GFR 20 - 29 116 mL/min/1.73m 30 - 39 107 mL/min/1.73m 40 - 49 99 mL/min/1.73m 50 - 59 93 mL/min/1.73m 60 - 69 85 mL/min/1.73m 70 + 75 mL/min/1.73m ID Date Data Source [id number] 03/31/2020 07:50:00 AM EDT [facility] Name Value Range Interpretation Code Description Data Maribel rce(s) Supporting Document(s) Prothrombin Time (Patient) 25.2 s 9.6-12.3 Above high normal [facility] INR 2.5 0.9-1.1 Above high normal [facility] THE INR IS OPERATIONALLY DEFINED FOR PIPPA SH PLASMA FROMPATIENTS STABILIZED ON ORAL ANTICOAGULANTS.ROUTINE ANTICOAGULANT THERAPY 2.0-3.0RECURRENT SYSTEMIC EMBOLISM/HEART VALVE REPLACEMENT 2.5-3.5 ID Date Data Source [id number] [facility] DO B: 1940 Sex: M Pt Unit #: [id number] Location:[facility] Provider: Visit Date/Time: 03/17/20 Primary Insurance: MEDICARE [employer] Secondary Insurance: [facility] Intake Vital Signs 03/17/20 15:37 Current Height 5 ft 6 in Current Weight 191 lb 6 oz Weight Measurement Method Standing Scale BMI 30.9 BP 120/80 Blood Pressure Location Lt brachial Position Sitting Respiration 18 Pulse 86 Pulse Source Pulse Oximeter Pulse Oximetry (%) 97 Intake-Medicare Annual Visit Reasons: Medicare Annual Wellness subsequent Nurse Note: 79 year old male here for Medicare Wellness Exam. Pt. wondering when next INR is due. Has had both pneumonia shots. Varnish Maker Required: No Accompanied by: Is patient in pain?: No Allergies No Known Drug Allergies Allergy (Verified 03/17/20 16:09) Feel stressed/tense/nervous/anxious/difficulty sleeping: not at all Medications acetaminophen (Tylenol) 650 mg PO BID albuterol sulfate 90 mcg/actuation 2 puffs inhalation QID PRN allopurinol 100 mg PO DAILY aspirin 81 mg PO DAILY calcitriol 0.25 mcg PO QDAY ferrous gluconate 324 mg PO DAILY finasteride 5 mg PO DAILY folic acid 1 mg PO DAILY furosemide (Lasix) 40 mg PO BID gemfibrozil 600 mg PO BID hydrocortisone 1% (Anti-Itch (hydrocortisone)) 1 applic topical BID-QID PRN lactobacillus combination no.4 (Probiotic) 1 ea PO DAILY leuprolide (Eligard) 7.5 mg subcut [id number] lisinopril 5 mg PO DAILY metoprolol tartrate 12.5 mg PO BID MDD 1 omeprazole 20 mg PO QDAY rosuvastatin (Crestor) 20 mg PO DAILY tamsulosin 1 tab PO DAILY warfarin 3 mg See Protocol PO QDAY warfarin 2 mg See Protocol PO 2XW Fall Risk History of falls: No Ambulatory Aid:: None Gait/Transferring:: Normal Medications:: Antihypertensives How often do you have a drink containing alcohol?: never How often do you have 6 or more drinks on 1 occasion?: never AUDIT-C Alcohol total score: Answ all for result. Requirement for HIV testing offer been met?: Not in age range Coronavirus Screening Screening Have you traveled outside of [facility] or [facility] in the last 14 days.: No Has patient experienced coronavirus symptoms: No PFSH Medical History (Updated 03/08/20 @ 12:46 by Mayuri Guardado DO) Atrial fibrillation with controlled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 PO DAILY folic acid 1 mg PO DAILY furosemide (Lasix) 40 mg PO DAILY gemfibrozil 600 mg PO BID ipratropium bromide 2 spry NA BID lactobacillus combination no.4 (Probiotic) 1 ea PO DAILY lisinopril TAKE ONE TABLET BY MOUTH EVERY DAY metoprolol tartrate TAKE ONE TABLET BY MOUTH TWICE A DAY metoprolol tartrate 25 mg PO DAILY 90 days MDD 1 omeprazole 20 mg PO QDAY rosuvastatin (Crestor) 20 mg PO DAILY tamsulosin 1 tab PO DAILY warfarin 2.5 mg See Protocol PO QDAY warfarin 1 mg See Protocol PO QDAY warfarin 3 mg See Protocol PO DAILY warfarin 2 mg See Protocol PO BID Fall Risk History of falls: No Ambulatory Aid:: None Gait/Transferring:: Normal Medications:: Antihypertensives How often do you have a drink containing alcohol?: never How often do you have 6 or more drinks on 1 occasion?: never AUDIT-C Alcohol total score: Answ all for result. Requirement for HIV testing offer been met?: Declines today. Pretest education received and acknowledged [facility] Medical History (Updated 08/25/19 @ 20:21 by Julian Herrera DO) Atrial fibrillation with controlled ventricular response (Acute) BPH w urinary obs/LUTS (Chronic 08/19/17) Bradycardia (Acute) Carpal tunnel syndrome on right (Chronic 09/27/14) Chronic atrial fibrillation (Chronic 06/11/16) Chronic renal impairment, stage 3 (moderate) (Chronic 10/09/15) CKD (chronic kidney disease) stage 3, GFR 30-59 ml/min (Acute) Congestive heart failure (CHF) (Chronic) Coronary artery disease 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 (Chronic 09/27/14) Diabetes mellitus type 2 in obese (Chronic 10/24/14) Foreign body in hand (Chronic 07/25/14) Heart murmur Hypercholesterolemia (Chronic 01/06/15) Hyperlipidemia Hypertension Hypertension, essential, benign (Chronic 01/06/15) Ischemic colitis (Resolved 02/19/16) 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) Late effect of tendon injury (Chronic 07/25/14) On warfarin therapy (Chronic 12/08/18) Peripheral vascular disease in diabetes mellitus (Chronic 01/06/15) Prostate nodule (Acute) Seborrheic keratosis (Acute 09/26/16) Skin sensation disturbance (Acute 07/25/14) Traumatic arthropathy, 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 Father Heart disease Brother No problems noted. Brother Hyperlipidemia Hypertension Brother No problems noted. Sister No problems noted. Sister No problems noted. Sister Multiple sclerosis Sister No problems noted. Sister No problems noted. Social History Does the Patient have a Healthcare Proxy: No Does Patient have a DNR?: No Does Patient have a Living Will?: Yes Does the Patient have a MOLST?: No Advance Directives on File or in chart?: No Hx Recent Travel (where): No Medicare Annual Wellness Medication list Medications acetaminophen (Tylenol) 650 mg PO BID albuterol sulfate 90 mcg/actuation 2 puffs inhalation QID PRN allopurinol TAKE ONE TABLET BY MOUTH EVERY DAY aspirin 81 mg PO DAILY calcitriol 0.25 mcg PO QDAY cholecalciferol (vitamin D3) 1 cap PO 1XW colchicine (Colcrys) 0.6 mg PO BID PRN digoxin 1 tab PO DAILY ferrous gluconate TAKE ONE TABLET BY MOUTH EVERY DAY finasteride 5 mg PO DAILY folic acid 1 mg PO DAILY furosemide (Lasix) 40 mg PO DAILY gemfibrozil 600 mg PO BID ipratropium bromide 2 spry NA BID lactobacillus combination no.4 (Probiotic) 1 ea PO DAILY lisinopril TAKE ONE TABLET BY MOUTH EVERY DAY metoprolol tartrate TAKE ONE TABLET BY MOUTH TWICE A DAY metoprolol tartrate 25 mg PO DAILY 90 days MDD 1 omeprazole 20 mg PO QDAY rosuvastatin (Crestor) 20 mg PO DAILY tamsulosin 1 tab PO DAILY warfarin 2.5 mg See Protoc ol PO QDAY warfarin 1 mg See Protocol PO QDAY warfarin 3 mg See Protocol PO DAILY warfarin 2 mg See Protocol PO BID Allergies Allergies No Known Drug Allergies Allergy (Verified 03/15/16 15:14) PHQ-2/9 Over the last 2 weeks, how often have you been bothered by any of the following problems? 1. Little interest or pleasure in doing things: not at all 2. Feeling down, depressed, or hopeless: not at all Total score: 0 HPI Additional HPI HPI Details: cc: annual wellness Last physical exam - >1 year Specialist: Dr. Jefferson - Cardiology, Dr. Sampson/Dr. Huddleston - Urology, Dr. Toussaint - Ophtho O besity: denies Blood pressure: Endorses a history of elevated blood pressure and currently compliant with medications Alcohol abuse: Denies alcohol use Tobacco: Denies tobacco use HIV: Denies prior testing, no IV drug exposure, no sexual or accidental exposure, declines testing today Colon Cancer: November 2015, unsure of results Mental health: Declines prior diagnosis and current symptoms Latent tuberculosis: Declines exposure to homeless, immigrant, present population Vaccinations: has not had PSV 23 Review of Systems Const All systems reviewed are unremarkable except as noted in HPI and below Denies anorexia, Denies excessive sweating, Denies fatigue, Denies fever(s), Denies headache(s), Denies weight gain and Denies weight loss Eyes Denies blurry vision, Denies change in vision, Denies dry eyes, Denies irritation, Denies itchy eyesand Denies loss of vision ENT Denies dysphagia, Denies dizziness, Denies headache(s), Denies nasal congestion, Denies nasal discharge, Denies dise quilibrium and Denies sinus pain Card Denies chest pain, Denies pedal edema, Denies lightheadedness and Denies dyspnea Resp Denies cough, Denies excessive phlegm production, Denies pain on inspiration, Denies dyspnea and Denies wheezing GI Denies abdominal pain, Denies change in bowel habits, Denies dysphagia, Denies early satiety, Deniesheartburn, Denies diarrhea, Denies nausea and Denies vomiting Musc Denies back pain, Denies arthralgias, Denies limited range of motion, Denies muscle cramps and Denies muscle weakness Skin/Breast Denies breast pain, Denies change in pigmentation, Denies lesions, Denies nail changes, Denies rash and Denies unusual bruising Neuro Denies dizziness, Denies headache(s), Denies loss of vision, Denies memory loss, Denies paresthesiasand Denies disequilibrium Psych Denies abnormal sleep pattern, Denies anxiety, Denies change in appetite, Denies depression, Denies irritability and Denies memory loss Endo Denies cold intolerance, Denies excessive sweating and Denies fatigue Jayy/Lymph Denies easy bruising and Denies lymphadenopathy Aller/Immun Denies urticaria, Denies itchy eyes and Denies wheezing Exam Const General: healthy appearing and no acute distress Resp Effort Inspection: normal respiratory effort and symmetric chest movement Auscultation: clear to auscultation bilaterally, no rales, no rhonchi and no wheezes Cardio Rate: regular rate Rhythm: abnormal rhythm irregularly irregular Heart Sounds: S1 normal, S2 normal, no gallops, no murmurs and no rubs GI Inspection: Yes normal to inspection Palpation: soft, no hepatosplen omegaly, no hernias and nontender Auscultation: normal bowel sounds Skin Rashes: no rashes Neuro General: moves all extremities Psych Appearance: well kempt Mood: euthymic mood Affect: normal affect Immunizations pneumococcal 23-janeth ps vaccine Performing Provider: Julian Herrera DO Administered by: Magaly Martinez on 09/14/19 12:09 Dose Route Admin Location Lot Number Expiration Date NDC Manufactu rer 0.5 mL IM Right arm [id number] 04/25/20 0302-4807-32 [employer] D VIS Given Date VIS Provided VIS Publication Date 09/14/19 Single Vaccine 14 Eligibility Eligibility Date Funding Source Not VFC Eligible 09/14/19 Private Assessment Plan Assessment Plan (1) Medicare annual wellness visit, subsequent: Code(s): Z00.00 - Encounter for general adult medical examination without abnormal findings Plan - Julian Herrera DO: Britton Gomez is an 79 yo M presenting for annual wellness visit. We discussed ADLs. I encouraged the patient to consider physical therapy for improvement in ambulation. He has no difficulty with chewing and eating, I made recommendations to improve nutrition. He endorses a prior evaluation with audiology for recommendation of hearing aids however did not get them due to cost. I encouraged consideration for reevaluation as well as inquiry with any insurance for coverage. He has no concerns for his vision. We engaged in shared decision making for consideration of blood work. As a group we decided that he had indications for lab work however did not see a long-term benefit in management of any laboratory abnormalities. He understands the benefits and risks of this and wanted to focus on quality of life. * BMI32.5, class I obesity -Encouraged for dietary/lifestyle modifications and follow-up visit if desired * Blood pressurewell-controlled, on medicatio ns, followed by nephrology and cardiology -Continue current medications * Alcohol abusenone * Tobacco usenone * Lung cancer screeningaged out and does not meet criteria * HIVno risk factors and declines * Colon cancer screeningaged out, less than 10-year life expectancy, no current symptoms or signs * PSA screeningcurrently followed with urology * Depression/anxiety: No prior history, no current symptoms -PHQ 9: Negative -ABELINO-7: Negative * Latent tuberculosis infectionlow risk, testing not indicated * Vaccinations: Provided PPSV 23 today * Eye/dental: Encouraged for routine eye and dental health * End of life care: He and his confirmed today that he would like to be DNR and DNI they state they have completed paperwork for this. They are okay with hospitalization for other medical treatment however. They have been considering dialysis should he come to need that. Orders Other Medications: Refilled: gemfibrozil 600 mg PO BID #[id number] 0RF Other Orders: Orders: INJ - Pneumovax Vaccine Today Z23 Electronically Signed By: <Electronically signed by Julian Herrera DO> Date/Time Signed: 09/14/19 1322 Name Value Range Interpretation Code Description Data Maribel rce(s) Supporting Document(s) ID Date Data Source [id number] 09/14/2019 10:52:00 AM [facility] Name Value Range Interpretation Code Description Data Maribel rce(s) Supporting Document(s) Prothrombin Time (Patient) 21.6 s 9.6-12.3 Above high normal [facility] INR 2.20 0.9-1.1 Above high normal [facility] THE INR IS OPERATIONALLY DEFINED FOR PIPPA SH PLASMA FROMPATIENTS STABILIZED ON ORAL ANTICOAGULANTS.ROUTINE ANTICOAGULANT THERAPY 2.0-3.0RECURRENT SYSTEMIC EMBOLISM/HEART VALVE REPLACEMENT 2.5-3.5 ID Date Data Source [id number] 09/02/2019 01:08:00 PM [facility] Name Value Range Interpretation Code Description Data Maribel rce(s) Supporting Document(s) Prothrombin Time (Patient) 23.9 s 9.6-12.3 Above high normal [facility] INR 2.5 0.9-1.1 Above high normal [facility] THE INR IS OPERATIONALLY DEFINED FOR PIPPA SH PLASMA FROMPATIENTS STABILIZED ON ORAL ANTICOAGULANTS.ROUTINE ANTICOAGULANT THERAPY 2.0-3.0RECURRENT SYSTEMIC EMBOLISM/HEART VALVE REPLACEMENT 2.5-3.5 ID Date Data Source [id number] 08/31/2019 10:06:00 AM [facility] Name Value Range Interpretation Code Description Data Maribel rce(s) Supporting Document(s) Prothrombin Time (Patient) 29.2 s 9.6-12.3 Above high normal [facility] INR 3.1 0.9-1.1 Above high normal [facility] THE INR IS OPERATIONALLY DEFINED FOR PIPPA SH PLASMA FROMPATIENTS STABILIZED ON ORAL ANTICOAGULANTS.ROUTINE ANTICOAGULANT THERAPY 2.0-3.0RECURRENT SYSTEMIC EMBOLISM/HEART VALVE REPLACEMENT 2.5-3.5 ID Date Data Source [id number] 08/13/2019 02:30:00 PM [facility] [address] [place] [address] [phone] NAME SEX PT STATUS ACCOUNT NUMBER BRITTON GOMEZ REG REF [id number] ORDERING PHYSICIAN LOCATION MEDICAL RECORD NO. Julian DO [facility] [id number] ATTENDING PHYSICIAN DATE OF DATE OF EXAM/TIME [...] otherwise essentially clear. The bones and soft tissuesare normal. The upper abdomen is unremarkable. IMPRESSION: 1. Stable platelike atelectasis towards the left lung base, posteriorly. 2. No focal pulmonary consolidation pleural effusion, or pulmonary vascular congestion. Rep orted By Young Lira MD on 08/13/19 1430 Signed By Young iLra MD on 08/13/19 1433 Date Time CC: Young Lira MD; Julian Herrera DO Techn: MORSA Trans Dt/Tm: Trans by: DT Prt Dt/Tm: [id number]: Total DLP = 0.00 mGy-cm Fluoroscopy Time (in secs): Name Value Range Interpretation Code Description Data Maribel rce(s) Supporting Document(s) ID Date Data Source [id number] 08/13/2019 03:17:00 PM [facility] Name Value Range Interpretation Code Description Data Maribel rce(s) Supporting Document(s) Prothrombin Time (Patient) 27.2 s 9.6-12.3 Above high normal [facility] INR 2.8 0.9-1.1 Above high normal [facility] THE INR IS OPERATIONALLY DEFINED FOR PIPPA SH PLASMA FROMPATIENTS STABILIZED ON ORAL ANTICOAGULANTS.ROUTINE ANTICOAGULANT THERAPY 2.0-3.0RECURRENT SYSTEMIC EMBOLISM/HEART VALVE REPLACEMENT 2.5-3.5 ID Date Data Source [id number] 08/13/2019 01:18:00 PM [facility] Patient Name: BRITTON GOMEZ B: 1940 Sex: M Pt Unit #: [id number] Location:[facility] Provider: Visit Date/Time: 08/13/19 Primary Insurance: MEDICARE [employer] [facility] Int[facility] Vital Signs 08/13/19 13:18 Current Height 5 ft 3 in Current Weight 189 lb BMI 33.5 BP 120/70 Blood Pressure Location Lt brachial Position Sitting Respiration 18 Pulse 94 Pulse Strength Normal Pulse Source Pulse Oximeter Temp 98.5 F Temp Source Tympanic Pulse Oximetry (%) 97 Oxygen Delivery Method room air Intake Visit Reasons: Office visit Nurse Note: pt is here today to discuss his Coumadin therapy pt is concerned with his congestion andcough he has had for three weeks Is patient in pain?: No Allergies No Known Drug Allergies Allergy (Verifie d 03/15/16 15:14) Fall Risk History of falls: No Ambulatory Aid:: Crutches Cane or Walker Gait/Transferring:: Normal Medications:: Antihypertensives HIV Testing Offer - ages 13-64 Requirement for HIV testing offer been met?: Declines today. Pretest education received and acknowledged [facility] Medical History (Updated 08/15/19 @ 21:21 by Julian Herrera DO) Atrial fibrillation with controlled ventricular response (Acute) BPH w urinary obs/LUTS (Chronic 08/19/17) Bradycardia (Acute) Carpal tunnel syndrome on right (Chronic 09/27/14) Chronic atrial fibrillation (Chronic 06/11/16) Chronic renal impairment, stage 3 (moderate) (Chronic 10/09/15) CKD (chronic kidney disease) stage 3, GFR 30-59 ml/min (Acute) Congestive heart failure (CHF) (Chronic) Coronary artery disease 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 (Chronic 09/27/14) Diabetes mellitus type 2 in obese (Chronic 10/24/14) Foreign body in hand (Chronic 07/25/14) Heart murmur Hypercholesterolemia (Chronic 01/06/15) Hyperlipidemia Hypertension Hypertension, essential, benign (Chronic 01/06/15) Ischemic colitis (Resolved 02/19/16) 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) Late effect of tendon injury (Chronic 07/25/14) On warfarin therapy (Chronic 12/08/18) Peripheral vascular disease in diabetes mellitus (Chronic 01/06/15) Prostate nodule (Acute) Seborrheic keratosis (Acute 09/26/16) Skin sensation disturbance (Acute 07/25/14) Traumatic arthropathy, 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 Father Heart disease Brother No problems noted. Brother Hyperlipidemia Hypertension Brother No problems noted. Sister No problems noted. Sister No problems noted. Sister Multiple sclerosis Sister No problems noted. Sister No problems noted. 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 In addition he reports he has had a URI for about 2 to 3 weeks. He endorses mild wheezing, rhinorrhea, and intermittent nonproductive cough. He denies any sick contacts, ocular or ear symptoms. He denies any recent weight changes or increased lower extremity swelling. Review of Systems Const All systems reviewed are unremarkable except as noted in HPI and below Exam Const General: no acute distress and other (Mildly ill-appearing) HENMT Ears: hearing grossly normal bilaterally, TM's normal bilaterally and mastoids normal General nose exam: external nose normal and nasal mucous membranes and turbinates normal Face and sinus: sinuses nontender Mouth: oral mucosae normal and moist mucous membranes Throat: posterior oropharynx normal and tonsils absent Eyes Conjunctivae: conjunctivae normal Sclera: sclerae normal Neck Neck: nontender Lymphatic: no lymphadenopathy noted Resp Effort Inspection: normal respiratory effort and symmetric chest movement Auscultation: wheezes Cardio Rate: regular rate Rhythm: regular rhythm Heart Sounds: S1 normal, S2 normal, no gallops, no murmurs and no rubs Skin Lesions: no lesions Rashes: no rashes Neuro General: moves all extremities Extrem General: no edema Psych Appearance: well kempt Mood: euthymic mood Affect: normal affect Assessment Plan Assessment Plan (1) Atrial fibrillation: Status: Acute Code(s): I48.91 - Unspecified atrial fibrillation SNOMED Code(s): 49030519 Category: Medical Qualifiers: Atrial fibrillation type: permanent Qualified Code(s): I48.2 - Chronic atrial fibrillation Plan - Julian Herrera DO: Britton Gomez is an 79-year-old male presenting to the clinic for follow-up of atrial fibrillation. In addition he has symptoms suggestive of a URI. Considering his past medical history of CHF and his current pulmonary examination I believe he would benefit from a chest x-ray to evaluate for pneumonia or CHF exacerbation although his weight has been stable, there are no crackles in the lower lung villasenor and no lower extremity edema. Goal INR: Prevention and treatment of thromboembolism 23 Labs: Patient has had several months of INRs not in the therapeutic range therefore have been increasing the frequency of monitoring. Last 2 INRs which were performed weekly were within normal limits. INR today and if therapeutic will extend to checking every 2 weeks. Medication: Continue warfarin as outlined in dose management (2) Viral upper respiratory infection: Status: Acute Code(s): J06.9 - Acute upper respiratory infection, unspecified SNOMED Code(s): 005221795 Category: Medical Orders: Orders: Xray Chest 2 view PA/LAT 08/13/19 Prothrombin / INR, Fingerstick 08/13/19 Orders Other Orders: Orders: Xray Chest 2 view PA/LAT 08/13/19 I48.91 Prothrombin / INR, Fingerstick 08/13/19 I48.91 Prothrombin Time INR 08/13/19 I48.91 Instructions: Atrial Fibrillation (GEN) Electronically Signed By: <Electronically signed by Julian Herrera DO> Date/Time Signed: 08/15/19 213 Name Value Range Interpretation Code Description Data Maribel rce(s) Supporting Document(s) ID Date Data Source [id number] 08/09/2019 09:34:00 AM [facility] Name Value Range Interpretation Code Description Data Maribel rce(s) Supporting Document(s) Prothrombin Time (Patient) 24.1 s 9.6-12.3 Above high normal [facility] INR 2.5 0.9-1.1 Above [facility] THE INR IS OPERATIONALLY DEFINED FOR PIPPA SH PLASMA FROMPATIENTS STABILIZED ON ORAL ANTICOAGULANTS.ROUTINE ANTICOAGULANT THERAPY 2.0-3.0RECURRENT SYSTEMIC EMBOLISM/HEART VALVE REPLACEMENT 2.5-3.5 ID Date Data Source [id number] 08/05/2019 09:34:00 AM [facility] Name Value Range Interpretation Code Description Data Maribel rce(s) Supporting Document(s) Prothrombin Time (Patient) 21.8 s 9.6-12.3 Above high normal [facility] INR 2.2 0.9-1.1 Above [facility] THE INR IS OPERATIONALLY DEFINED FOR PIPPA SH PLASMA FROMPATIENTS STABILIZED ON ORAL ANTICOAGULANTS.ROUTINE ANTICOAGULANT THERAPY 2.0-3.0RECURRENT SYSTEMIC EMBOLISM/HEART VALVE REPLACEMENT 2.5-3.5 ID Date Data Source [id number] 08/03/2019 10:26:00 AM [facility] Name Value Range Interpretation Code Description Data Maribel rce(s) Supporting Document(s) Prothrombin Time (Patient) 38.5 s 9.6-12.3 Above high normal [facility] INR 4.1 0.9-1.1 Above high normal [facility] THE INR IS OPERATIONALLY DEFINED FOR PIPPA SH PLASMA FROMPATIENTS STABILIZED ON ORAL ANTICOAGULANTS.ROUTINE ANTICOAGULANT THERAPY 2.0-3.0RECURRENT SYSTEMIC EMBOLISM/HEART VALVE REPLACEMENT 2.5-3.5 ID Date Data Source [id number] 07/30/2019 09:40:00 AM [facility] [address] [place] [id number] [phone] NAME SEX PT STATUS ACCOUNT NUMBER BRITTON GOMEZ [facility] REF [id number] ORDERING PHYSICIAN LOCATION MEDICAL RECORD NO. Alan Sampson M.D. [facility] [id number] ATTENDING PHYSICIAN DATE OF DATE OF EXAM/TIME [...] finding on bone scan may be simply projectionalin nature an d not reflective of malignancy. A six-month follow up bone scan is suggested Reported By Carlos Ulloa MD on 07/30/19939 Signed By Carlos Ulloa MD on 07/30/19940 Date Time CC: Kaz Cid MD; Carlos Ulloa MD Techn: FROJO Trans Dt/Tm: Trans by: DT Prt Dt/Tm: [id number]: Total DLP = 0.00 mGy-cm Fluoroscopy Time (in secs): Name Value Range Interpretation Code Description Data Maribel rce(s) Supporting Document(s) ID Date Data Source [id number] 07/30/2019 09:37:00 AM EST [facility] [address] [place] [address] [phone] NAME SEX PT STATUS ACCOUNT NUMBER BRITTON GOMEZ PRE REF [id number] ORDERING PHYSICIAN LOCATION MEDICAL RECORD NO. Alan Sampson M.D. RAD [id number] ATTENDING PHYSICIAN DATE OF DATE OF EXAM/TIME [...] may be chondrocalcinosis involving the right hip possiblyrelated to degenerative disease. The right greater trochanter [...] Kaz Cid MD; Carlos Ulloa MD Techn: FROJO Trans Dt/Tm: Trans by: DT Prt Dt/Tm: [id number]: Total DLP = 0.00 mGy-cm Fluoroscopy Time (in secs): Name Value Range Interpretation Code Description Data Maribel rce(s) Supporting Document(s) ID Date Data Source [id number] 07/23/2019 09:08:00 AM EST [facility] Name Value Range Interpretation Code Description Data Maribel rce(s) Supporting Document(s) Urea nitrogen [Mass/volume] in Serum or Plasma 77 mg/dL No range defined, or normal ranges don't apply [facility] @Review test & document. []Called to cR MCKEON @ 0902 by Ambar Ann. Results readback.Repeated by: Ambar Ann 07/23/19 0903.Result Confirmation: 75 mg/dL Sodium [Moles/volume] in Serum or Plasma 141 mmol/L 132-146 N [facility] Potassium [Moles/volume] in Serum or Plasma 4.2 mmol/L 3.5-5.5 [facility] Chloride [Moles/volume] in Serum or Plasma 108 mmol/L 99-109 N [facility] Carbon dioxide, total [Moles/volume] in Serum or Plasma 22 mmol/L 20 -31 N [facility] Anion gap in Serum or Plasma 15 mmol/L 8-16 N [facility] Glucose [Mass/volume] in Serum or Plasma 141 mg/dL 74-106 Above high normal [facility] Creatinine 3.7 mg/dL 0.5-1.1 Above high normal [facility] Glomerular filtration rate/1.73 sq M.pre dicted [Volume Rate/Area] in Serum or Plasma 16 ml/min ABOVE 60 [facility] ital Calcium [Mass/volume] in Serum or Plasma 9.7 mg/dL 8.5-10.1 N [facility] ID Date Data Source [id number] 07/23/2019 08:10:00 AM EST [facility] ([facility] Name Value Range Interpretation Code Description Data Maribel rce(s) Supporting Document(s) Urea nitrogen [Mass/volume] in Serum or Plasma 77 mg/dL 05-03 No range defined [facility] ([facility]) C61 Sodium [Moles/volume] in Serum or Plasma 141 mmol/L 132-146 [facility] ([facility]) C61 Carbon dioxide, total [Moles/volume] in Serum or Plasma 22 mmol/L 20 -31 [facility] ([facility]) C61 Chloride [Moles/volume] in Serum or Plasma 108 mmol/L 99-109 [facility] ([facility]) C61 Potassium [Moles/volume] in Serum or Plasma 4.2 mmol/L 3.5-5.5 [facility] ([facility]) C61 Glucose [Mass/volume] in Serum or Plasma 141 mg/dL 74-106 [facility] ([facility]) C61 Anion gap in Serum or Plasma 15 mmol/L 8-16 [facility] ([facility]) C61 Glomerular filtration rate/1.73 sq M.pre dicted [Volume Rate/Area] in Serum or Plasma 16 [facility] ([facility]) C61 Creatinine 3.7 mg/dL 0.5-1.1 [facility] ([facility]) C61 Calcium [Mass/volume] in Serum or Plasma 9.7 mg/dL 8.5-10.1 [facility] ([facility]) C61 ID Date Data Source [id number] 07/12/2019 10:34:00 AM EST [facility] ([facility]) Name Value Range Interpretation Code Description Data Maribel rce(s) Supporting Document(s) Clinical History PSA: 14.5 ng/ml [facility] ([facility]) 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 Left Mid Benign prostatic <SEE NOTE> [facility] ([facility]) Benign prostatic tissue with mild to mod erate atrophic change. Left Lateral Base Benign prostatic <SEE NOTE> [facility] ([facility]) Benign prostatic tissue with mild atroph ic change. Left [place] Benign prostatic <SEE NOTE> [facility] ([facility]) Benign prostatic tissue with atrophic ch roland and focally mildly associated chronic inflammation. Left Lateral Mid Benign prostatic <SEE NOTE> [facility] ([facility]) Benign prostatic tissue with mild atroph ic change. Right Base Benign prostatic <SEE NOTE> [facility] ([facility]) Benign prostatic tissue with marked atro phic change. Left Lateral [place] Benign prostatic <SEE NOTE> [facility] ([facility]) Benign prostatic tissue moderate atrophi c change. Right Mid Benign prostatic <SEE NOTE> [facility] ([facility]) Benign prostatic tissue with moderate at rophic change. Right Lateral Base ADENOCARCINOMA, <SEE NOTE> [facility] ([facility]) ADENOCARCINOMA, GARCÍA SCORE 3+4=7 (GRA DE GROUP 2; 20 percent Poth pattern 4), Involving 50% (8 mm in length) of one core examined. Perineural invasion identified. Right Lateral [place] ADENOCARCINOMA, <SEE NOTE> [facility] ([facility]) <content>ADENOCARCINOMA, GARCÍA SCORE 4 +5=9 (GRADE GROUP 5) with dominant pattern 3</content>
<content>component and <5% pattern 5 component with necrosis, Involving 99% (15 mm in</content>
<content>length) of one core. Perineural invasion identified.</content>
<content></content> Right [place] ADENOCARCINOMA, <SEE NOTE> [facility] ([facility]) ADENOCARCINOMA, GARCÍA SCORE 3+4=7 (GRA DE GROUP 2; 15 percent García pattern 4), Involving 80% (14.5 mm in length) of one examined core. No perineural invasion identified. Right Lateral Mid PROSTATIC TISSUE <SEE NOTE> Ab normal (applies to non-numeric results) [facility] ([facility]) PROSTATIC TISSUE WITH A SMALL FOCUS OF S MALL ATYPICAL GLANDS WITH MARKED CRUSH DEGENERATION, OTHERWISE IS HIGHLY SUSPICIOUS FOR ADENOCARCINOMA. PDF Report SEE IMAGE [facility] ([facility]) Procedure Social History Code Duration Value Status Description Data Source(s ) 09/06/2020 11:01:15 AM EST No completed No [facility] 09/06/2020 11:01:15 AM EST No completed No [facility] 09/06/2020 11:01:15 AM EST Former smoker completed Former smoker [facility] Smoking 09/06/2020 11:01:00 AM EST Former smoker completed Former smoker [facility] 08/14/2020 01:44:00 PM EST 45 yrs ago completed 45 yrs ag o [facility] 08/14/2020 01:44:00 PM EST No completed No [facility] 08/14/2020 01:44:00 PM EST 45 yrs ago completed 45 yrs ag o [facility] 08/14/2020 01:44:00 PM EST No completed No [facility] 08/14/2020 01:44:00 PM EST No completed No [facility] 08/14/2020 01:44:00 PM EST No completed No [facility] 08/14/2020 01:44:00 PM EST Former smoker completed Former smoker [facility] Smoking 08/14/2020 01:44:00 PM EST Former smoker completed Former smoker [facility] Smoking 08/14/2020 12:00:00 AM EST - 08/11/1998 12:00:00 AM EST Former Cigarette Smoker completed Former Cigarette Smoker [facility] ([facility]) 08/10/2020 04:52:17 PM EST Former smoker completed Former smoker [facility] Smoking 08/10/2020 04:52:00 PM EST Former smoker completed Former smoker [facility] 08/09/2020 03:40:03 PM EST No completed No [facility] 08/09/2020 03:40:03 PM EST No completed No [facility] 08/09/2020 03:40:03 PM EST No completed No [facility] 08/09/2020 03:40:03 PM EST No completed No [facility] 08/09/2020 03:40:03 PM EST Never smoker completed Never s [facility] Smoking 08/09/2020 03:40:00 PM EST Never smoker completed Never s [facility] Smoking 08/01/2020 12:00:00 AM EST Patient is a former smoker completed Patient is a former smoker [facility] ([facility]) Smoking 05/10/2020 11:13:00 AM EDT Former smoker completed Former smoker [facility] Smoking 05/10/2020 11:13:00 AM EDT Former smoker completed Former smoker [facility] 05/10/2020 10:13:00 AM EDT Former smoker completed Former smoker [facility] 05/10/2020 10:13:00 AM EDT Former smoker completed Former smoker [facility] 05/10/2020 10:13:00 AM EDT Former smoker completed Former smoker [facility] Smoking 05/10/2020 10:13:00 AM EDT Former smoker completed Former smoker [facility] 01/23/2020 04:31:45 PM EDT No completed No [facility] 01/23/2020 04:31:45 PM EDT No completed No [facility] 01/23/2020 04:31:45 PM EDT No completed No [facility] 01/23/2020 04:31:45 PM EDT No completed No [facility] 01/23/2020 04:31:45 PM EDT No completed No [facility] 01/23/2020 04:31:45 PM EDT No completed No [facility] 01/23/2020 04:31:45 PM EDT No completed No [facility] 01/23/2020 04:31:45 PM EDT No completed No [facility] 01/23/2020 04:31:45 PM EDT No completed No [facility] 01/23/2020 04:31:45 PM EDT No completed No [facility] 01/23/2020 04:31:45 PM EDT No completed No [facility] 01/23/2020 04:31:45 PM EDT No completed No [facility] 01/23/2020 04:31:45 PM EDT No completed No [facility] 01/23/2020 04:31:45 PM EDT No completed No [facility] 01/23/2020 04:03:00 PM EDT Former smoker completed Former smoker [facility] Smoking 01/23/2020 04:03:00 PM EDT Former smoker completed Former smoker [facility] 01/23/2020 04:03:00 PM EDT Former smoker completed Former smoker [facility] Smoking 01/23/2020 04:03:00 PM EDT Former smoker completed Former smoker [facility] 01/23/2020 04:03:00 PM EDT Former smoker completed Former smoker [facility] Smoking 01/23/2020 04:03:00 PM EDT Former smoker completed Former smoker [facility] 01/23/2020 04:03:00 PM EDT Former smoker completed Former smoker [facility] Smoking 01/23/2020 04:03:00 PM EDT Former smoker completed Former smoker [facility] 12/09/2019 09:45:49 AM EDT No completed No [facility] 12/09/2019 09:45:49 AM EDT No completed No [facility] 12/09/2019 09:45:00 AM EDT Former smoker completed Former smoker [facility] 12/09/2019 09:45:00 AM EDT Former smoker completed Former smoker [facility] 12/09/2019 09:45:00 AM EDT Former smoker completed Former smoker [facility] 12/09/2019 09:45:00 AM EDT Former smoker completed Former smoker [facility] 12/09/2019 09:45:00 AM EDT Former smoker completed Former smoker [facility] Smoking 12/09/2019 09:45:00 AM EDT Former smoker completed Former smoker [facility] 12/07/2019 11:58:00 AM EDT 45 yrs ago completed 45 yrs ag o [facility] 12/07/2019 11:58:00 AM EDT No completed No [facility] 12/07/2019 11:58:00 AM EDT 45 yrs ago completed 45 yrs ag o [facility] 12/07/2019 11:58:00 AM EDT No completed No [facility] 12/07/2019 11:58:00 AM EDT 45 yrs ago completed 45 yrs ag o [facility] 12/07/2019 11:58:00 AM EDT No completed No [facility] 12/07/2019 11:58:00 AM EDT 45 yrs ago completed 45 yrs ag o [facility] 12/07/2019 11:58:00 AM EDT No completed No [facility] 12/07/2019 11:58:00 AM EDT 45 yrs ago completed 45 yrs ag o [facility] 12/07/2019 11:58:00 AM EDT No completed No [facility] 12/07/2019 11:58:00 AM EDT 45 yrs ago completed 45 yrs ag o [facility] 12/07/2019 11:58:00 AM EDT No completed No [facility] 12/07/2019 11:58:00 AM EDT 45 yrs ago completed 45 yrs ag o [facility] 12/07/2019 11:58:00 AM EDT No completed No [facility] 12/07/2019 11:58:00 AM EDT 45 yrs ago completed 45 yrs ag o [facility] 12/07/2019 11:58:00 AM EDT No completed No [facility] 12/07/2019 11:58:00 AM EDT 45 yrs ago completed 45 yrs ag o [facility] 12/07/2019 11:58:00 AM EDT No completed No [facility] 12/07/2019 11:58:00 AM EDT 45 yrs ago completed 45 yrs ag o [facility] 12/07/2019 11:58:00 AM EDT No completed No [facility] 12/07/2019 11:58:00 AM EDT 45 yrs ago completed 45 yrs ag o [facility] 12/07/2019 11:58:00 AM EDT No completed No [facility] 12/07/2019 11:58:00 AM EDT No completed No [facility] 12/07/2019 11:58:00 AM EDT No completed No [facility] Vital Signs ID Date Data Source UNK Name Value Range Interpretation Code Description Data Source(s) Body temperature 96.8 [degF] 96.8 [degF] [facility] ([facility]) Heart rate 89 /min 89 /min [facility]) Diastolic blood pressure 65 mm[Hg] 65 mm[Hg] [facility] ([facility]) Systolic blood pressure 122 mm[Hg] 122 mm[Hg] [facility] ([facility]) Body mass index (BMI) [Ratio] 29.0 kg/m2 29.0 k g/m2 [facility] ([facility]) Body weight 83.916 kg 83.916 kg [facility]) Body weight 185.00 [lb_av] 185.00 [lb_av] MED[facility] T ([facility]) Body height 67 [in_i] 67 [in_i] [facility] ([facility]) 5'7" Diastolic blood pressure 66 mm[Hg] 66 mm[Hg] [facility] ([facility]) sitting Systolic blood pressure 120 mm[Hg] 120 mm[Hg] M [facility] ([facility]) sitting Diastolic blood pressure 66 mm[Hg] 66 mm[Hg] [facility] ([facility]) sitting, regular cuff Systolic blood pressure 122 mm[Hg] 122 mm[Hg] M [facility] ([facility]) sitting, regular cuff Respiratory rate 16 /min 16 /min [facility] ( [facility]) Heart rate 68 /min 68 /min [facility] ([facility]) Irregular Body mass index (BMI) [Ratio] 29.0 kg/m2 29.0 k g/m2 [facility] ([facility]) Body height 67 [in_i] 67 [in_i] [facility]) 5'7" Body weight 185.00 [lb_av] 185.00 [lb_av] [facility] T ([facility]) Body temperature 96.8 [degF] 96.8 [degF] [facility] ([facility]) Heart rate 86 /min 86 /min [facility] ([facility]) Diastolic blood pressure 89 mm[Hg] 89 mm[Hg] [facility] ([facility]) Systolic blood pressure 127 mm[Hg] 127 mm[Hg] M [facility] ([facility]) Body mass index (BMI) [Ratio] 29.8 kg/m2 29.8 k g/m2 [facility] ([facility]) Body weight 86.184 kg 86.184 kg [facility] ([facility]) Body weight 190.00 [lb_av] 190.00 [lb_av] MED[facility] T ([facility]) Body height 67 [in_i] 67 [in_i] [facility] ([facility]) 5'7" Body temperature 96.9 [degF] 96.9 [degF] [facility] ([facility]) Body temperature 98.4 [degF] 98.4 [degF] [facility] ([facility]) Heart rate 87 /min 87 /min [facility] ([facility]) Diastolic blood pressure 68 mm[Hg] 68 mm[Hg] [facility] ([facility]) Systolic blood pressure 126 mm[Hg] 126 mm[Hg] M [facility] ([facility]) Body mass index (BMI) [Ratio] 29.1 kg/m2 29.1 k g/m2 [facility] ([facility]) Body weight 84.370 kg 84.370 kg [facility] ([facility]) Body weight 186.00 [lb_av] 186.00 [lb_av] MED[facility] T ([facility]) Body height 67 [in_i] 67 [in_i] [facility] ([facility]) 5'7" Diastolic blood pressure 66 mm[Hg] 66 mm[Hg] [facility] ([facility]) sitting Systolic blood pressure 124 mm[Hg] 124 mm[Hg] M [facility] ([facility]) sitting Diastolic blood pressure 66 mm[Hg] 66 mm[Hg] [facility] ([facility]) sitting, regular cuff Systolic blood pressure 122 mm[Hg] 122 mm[Hg] M [facility] ([facility]) sitting, regular cuff Respiratory rate 16 /min 16 /min [facility] ( [facility]) Heart rate 72 /min 72 /min [facility] ([facility]) Irregular Body mass index (BMI) [Ratio] 28.8 kg/m2 28.8 k g/m2 [facility] ([facility]) Body height 67 [in_i] 67 [in_i] [facility] ([facility]) 5'7" Body weight 184.00 [lb_av] 184.00 [lb_av] [facility] T ([facility]) Body temperature 97.0 [degF] 97.0 [degF] [facility] ([facility]) Respiratory rate 18 /min 18 /min [facility] ( [facility]) Heart rate 92 /min 92 /min [facility] ([facility]) Diastolic blood pressure 74 mm[Hg] 74 mm[Hg] [facility] ([facility]) Systolic blood pressure 143 mm[Hg] 143 mm[Hg] M [facility] ([facility]) Body mass index (BMI) [Ratio] 29.3 kg/m2 29.3 k g/m2 [facility] ([facility]) Body weight 84.823 kg 84.823 kg [facility] ([facility]) Body weight 187.00 [lb_av] 187.00 [lb_av] [facility] T ([facility]) Body height 67 [in_i] 67 [in_i] [facility] ([facility]) 5'7" Body mass index (BMI) [Ratio] 28.2 kg/m2 28.2 k g/m2 [facility] ([facility]) Body weight 81.648 kg 81.648 kg [facility] ([facility]) Body weight 180.00 [lb_av] 180.00 [lb_av] MED[facility] T ([facility]) Body height 67 [in_i] 67 [in_i] [facility] ([facility]) 5'7" Oxygen saturation in Arterial blood by Pulse oximetry 93 % 93 % [facility] ([facility]) Heart rate 86 /min 86 /min [employer] ([employer] [place]) Diastolic blood pressure 55 mm[Hg] 55 mm[Hg] [employer] ([employer] [place]) 2nd: 108/55 Systolic blood pressure 96 mm[Hg] 96 mm[Hg] M EDENT ([employer] [place]) 2nd: 108/55 Body mass index (BMI) [Ratio] 28.2 kg/m2 28.2 k g/m2 [employer] ([employer] [place]) Body weight 81.648 kg 81.648 kg [employer] ([employer] [place]) Body weight 180.00 [lb_av] 180.00 [lb_av] MEDEN T ([employer] [place]) Body height 67 [in_i] 67 [in_i] [employer] ([employer] i[employer] [place]) 5'7"
[2020-09-06] MEDS ORDERED: LIDOCAINE 1% MDV 20ML VIAL As Ordered ONE (20:21)
[2020-09-06] MEDS ORDERED: DEXTROSE 50% 50 ML SYRINGE IV PRN (20:30)
[2020-09-06] MEDS ORDERED: GLUCAGON INJ 1MG VIAL SC PRN (20:30)
[2020-09-06] MEDS ORDERED: GLUCOSE 4GM CHEW TABLET PO PRN (20:30)
[2020-09-06] MEDS ORDERED: NITR4TASL SL (20:45)
[2020-09-06] MEDS ORDERED: LUPR45IN IM (20:45)
[2020-09-06] MEDS ORDERED: WARF4TAB51 PO (20:45)
[2020-09-06] MEDS ORDERED: ACET650T61 PO (20:45)
[2020-09-06] MEDS ORDERED: PROAAER10 INH (20:45)
[2020-09-06] MEDS: NYSTATIN 100,000 UNITS/GM TOPICAL PWD 15 GM TOP SCH (21:00)
[2020-09-06 21:25] LABS: VENOUS BASE EXCESS -13.3 (-2.0-2.0); VENOUS HCO3 13.3 MEQ/L (23.0-27.0); VENOUS O2 SATURATION 81.7 % (60.0-80.0); VENOUS PARTIAL PRESSURE CO2 33.1 mmHg (38.0-50.0); VENOUS PARTIAL PRESSURE O2 49.6 mmHg (30.0-50.0); VENOUS PH 7.221 UNITS (7.330-7.430); VENOUS STANDARD HCO3 13.7 MEQ/L; VENOUS TOTAL CO2 14.3 MEQ/L (24.0-28.0)
[2020-09-06 21:45] LABS: INR 3.87; PROTHROMBIN TIME 38.9 SECONDS (12.5-14.3)
[2020-09-06 21:57] LABS: CK-MB VALUE MASS 10.6 NG/ML (<3.6); MB/CK RELATIVE INDEX 4.33 (< OR =4); PERCENT SATURATION 49.1 % (19.7-50.0); TROPONIN I 0.21 NG/ML (< 0.10)
[2020-09-06 22:05] LABS: BASO % 0.2 % (0.0-1.0); EOS # 0.1 10^3/uL (0.0-0.5); HEMATOCRIT 24.9 % (42.0-52.0); HEMOGLOBIN 8.5 g/dl (13.5-17.5); LYMPH # 0.9 10^3/uL (1.5-5.0); LYMPH % 15.9 % (24.0-44.0); MEAN CORPUSCULAR HEMOGLOBIN 31.6 pg (27.0-33.0); MEAN CORPUSCULAR HGB CONC 34.1 g/dl (32.0-36.5); MEAN CORPUSCULAR VOLUME 92.6 fl (80.0-96.0); MONO # 0.7 10^3/uL (0.0-0.8); MONO % 12.7 % (0.0-5.0); NEUTROPHILS # 3.9 10^3/uL (1.5-8.5); NEUTROPHILS % 68.8 % (36.0-66.0); PLATELET COUNT, AUTOMATED 108 10^3/uL (150-450); RED BLOOD COUNT 2.69 10^6/uL (4.30-6.10); WHITE BLOOD COUNT 5.6 10^3/uL (4.0-10.0)
--- NOTE | 2020-09-06 22:09 | REPVR ---
PROCEDURE INFORMATION: Exam: XR Chest, 1 View Exam date and time: 09/06/20 (9:47pm) Age: 80 years old Clinical indication: Central line placement TECHNIQUE: Imaging protocol: Portable CXR Views: 1 view COMPARISON: Portable CXR of 01/28/19 FINDINGS: Comparison is made with a portable CXR done on 01/28/19. Stable cardiomegaly. S/P sternotomy. Probable crowding of vessels at the left lung base (unchanged appearance). No consolidation. No pleural effusions. Right-sided jugular venous catheter, with its tip at the approximate atrio-caval junction. No pneumothorax. IMPRESSION: Stable cardiomegaly. Previous sternotomy. No focal infiltrates. Right-sided jugular venous catheter, with its tip at the approximate atrio-caval junction. No pneumothorax. Electronically signed by: Eusebia Sinclair On 09/06/2020 22:08:57 PM
[2020-09-06 22:14] LABS: BILIRUBIN,TOTAL 0.2 MG/DL (0.2-1.0); CALCIUM LEVEL 8.4 MG/DL (8.8-10.2); CREATININE FOR GFR 7.35 MG/DL (0.70-1.30); GLOMERULAR FILTRATION RATE 7.6 (>35); PHOSPHORUS LEVEL 7.9 MG/DL (2.5-4.9); POTASSIUM SERUM 3.4 MEQ/L (3.5-5.1); TOTAL PROTEIN 5.6 GM/DL (6.4-8.2)
[2020-09-06] MEDS: PANTOPRAZOLE 40MG VIAL (C9113 PER 1) IV SCH (22:30)
[2020-09-06] MEDS: metroNIDAZOLE 500 MG in IV 1 EA IV SCH (22:30)
[2020-09-06 22:39] LABS: ABG BASE EXCESS -13.6 (-2.0-2.0); ABG HCO3 11.2 MEQ/L (22.0-26.0); ABG O2 SATURATION 98.7 % (95.0-99.0); ABG PARTIAL PRESSURE CO2 22.9 mmHg (35.0-45.0); ABG PARTIAL PRESSURE O2 162.6 mmHg (75.0-100.0); ABG STANDARD HCO3 13.7 MEQ/L (22.0-26.0); ABG TOTAL CO2 11.9 MEQ/L (23.0-31.0); ABG pH (ARTERIAL) 7.307 UNITS (7.350-7.450)
[2020-09-06] MEDS ORDERED: ALBUTEROL 90 MCG/ACT 8GM HFA INHALER INH PRN (23:00)
--- NOTE | 2020-09-06 23:10 | IPNPDOC ---
Text Note Date of Service The patient was seen on 09/06/20. NOTE TIME OF SERICE 951PM is an 80 yr old w a hx of CHF COPD DM HTN Afib SAVR vs TAVR? PVD and CAD/CABG who was transferred from an outside hospital for management of hypote nsion and VINH likely 2/2 n/v/d; he also has acute CHF, supratherapeutic INR and anemia. placed a line for pressors & made arrangements for dialysis. rest per 's H&P VS,Dahlia, I+O VS, Dahlia, I+O Laboratory Tests 09/06/20 20:50 CLARIBEL GARCIA MD Sep 06, 2020 23:10
[2020-09-06] MEDS: CIPROFLOXACIN 400 MG in IV 1 EA IV SCH (23:16)
[2020-09-07] VITALS (42 sets, daily range): BP systolic 80–143; BP diastolic 45–88
[2020-09-07] MEDS: FINASTERIDE 5 MG TAB PO SCH ×2 (00:22→20:34)
[2020-09-07] MEDS: gemfibroziL 600 MG TAB PO SCH ×3 (00:23→20:34)
[2020-09-07] MEDS: ROSUVASTATIN 10 MG TAB (CRESTOR) PO SCH ×2 (00:23→20:34)
[2020-09-07] MEDS: ASPIRIN 81 MG ENTERIC TAB PO SCH ×2 (00:23→20:34)
[2020-09-07] MEDS: FOLIC ACID 1 MG TAB PO SCH ×2 (00:23→20:34)
[2020-09-07 03:32] LABS: BASO % 0.1 % (0.0-1.0); EOS # 0.2 10^3/uL (0.0-0.5); EOS % 2.1 % (0.0-3.0); HEMOGLOBIN 8.6 g/dl (13.5-17.5); LYMPH # 0.7 10^3/uL (1.5-5.0); LYMPH % 8.8 % (24.0-44.0); MEAN CORPUSCULAR HEMOGLOBIN 31.4 pg (27.0-33.0); MEAN CORPUSCULAR HGB CONC 34.4 g/dl (32.0-36.5); MEAN CORPUSCULAR VOLUME 91.2 fl (80.0-96.0); MONO % 12.8 % (0.0-5.0); NEUTROPHILS # 5.7 10^3/uL (1.5-8.5); NEUTROPHILS % 75.8 % (36.0-66.0); PLATELET COUNT, AUTOMATED 123 10^3/uL (150-450); RED BLOOD COUNT 2.74 10^6/uL (4.30-6.10); WHITE BLOOD COUNT 7.6 10^3/uL (4.0-10.0)
--- NOTE | 2020-09-07 04:05 | HPEPDOC ---
[facility] Medical History & Physical Date of Admission Sep 06, 2020 Date of Service: Sep 06, 2020 Attending Physician: CLARIBEL GARCIA MD History and Physical CHIEF COMPLAINT: Diarrhea/weakness HISTORY OF PRESENT ILLNESS: Patient is an 80 year old male with a past medical history significant for COPD, CHF, BPH, prostate cancer, atrial fibrillation on Coumadin, CAD s/p CABG and stent placement, PVD s//p bilateral leg stents, and CKD who presented to [facility] as a transfer from [facility]. The patient himself is a poor historian. Patient states that sometime around New Years he was experiencing some chest pressure type symptoms. He states that around that time he had fallen forward out of bed and hit his right side on his walker. He stated that he had been worked up for his chest pressure. He states that he currently does not have chest pain or pressure. He says that since that time he hasn't felt back to his baseline. He states that most recently he had developed nausea and diarrhea. He denies any actual vomiting. He states that he had persistent diarrhea for about 4 days and developed worsening weakness which brought him to the [facility]. Additionally the patient states that he has noticed blood in his urine recently At [facility] the patient was found to be hypotensive with a recorded SBP of 50. The patient was bolused normal saline for a total of 4L. His BP did respond however he was started on peripheral Levophed. The patient was then found to be in acute renal failure. He was in an anion gap metabolic acidosis with a pH of 7.0. of His INR was supratherapeutic at 9.8. He was given vitamin K and FFP. He had only received 1.5 bags of FFP as the patient started to have desaturations likely secondary to acute decompensated CHF from the large quantity of IV fluids he had received. The patient was to be started on bicarb drip however once again could not tolerate the iv fluid. On presentation to [facility] the patient was hypotensive with a MAP of 63 and SBP of 70-80. Peripheral Levophed was started again with appropriate response. Pulmonary/Critical Care was contacted for central line placement. Additionally due to patients acidemia with acute renal failure and acute decompensated CHF Nephrology was consulted for urgent dialysis. A left femoral dialysis catheter was placed. PAST MEDICAL HISTORY: 1. COPD 2. Atrial Fibrillation 3. History of Aortic Valve Repair 4. PVD s/p bilateral leg stents 5. CAD s/p CABG 6. CKD 7. BPH 8. Prostate Cancer PAST SURGICAL HISTORY: 1. Aortic Valve Repair 2. Bilateral leg stents for PVD 3. CABG and Cardiac Stents SOCIAL HISTORY: Patient lives at home with his . He is fairly independent at his baseline. He denies any current tobacco use. Denies alcohol use. Denies IV or illicit drug use. FAMILY HISTORY: Admits to family history of heart disease ALLERGIES: Please see below. REVIEW OF SYSTEMS: CONSTITUTIONAL: Denies fevers, chills, unintentional weight loss or weight gain. Denies night sweats HEENT: Denies dysphagia or pain on swallowing. Denies headache CARDIOVASCULAR: Denies chest pain. Denies palpitations or feelings of the heart racing RESPIRATORY: Admits to some shortness of breath currently. Denies wheezing. Denies cough. Denies sputum production GASTROINTESTINAL: Denies abdominal pain. Admits to nausea and diarrhea. Denies vomiting. Denies dark or tarry stools GENITOURINARY: Denies dysuria or increased frequency. Admits to hematuria SKIN: Denies rashes or lesions MUSCULOSKELETAL: Denies muscle pain or weakness NEUROLOGICAL: Denies changes in speech or gait PSYCHIATRIC: Denies depression or anxiety ENDOCRINE: Denies heat intolerance or cold intolerance. Denies diabetes HEMATOLOGIC/LYMPHATIC: Admits to easy bruising and bleeding. Denies history of DVT or PE HOME MEDICATIONS: Please see below. PHYSICAL EXAMINATION: VITAL SIGNS: Temperature 97.3, pulse 101, respiratory rate 24, blood pressure 85/51, pulse oximetry 98% on 2L. GENERAL APPEARANCE: Patient is awake, alert, and oriented. He is not in acute distress. He is ill appearing HEENT: Atraumatic, normocephalic. eyes are nonicteric. Trachea is midline. Mucous membranes are pink and moist. There is dry blood in the patients mouth and nose CARDIOVASCULAR: Normal S1, S2. Irregularly irregular rhythm. Regular rate. No clicks rubs or murmurs LUNGS: Decreased breath sounds overall. Rales/crackles bilaterally. good respiratory effort. No wheezes or rhonchi. ABDOMEN: Soft, nondistended. Nontender. Normoactive bowel sounds EXTREMITIES: No edema. Full and equal pulses in bilateral upper and lower extremities NEUROLOGICAL: No focal neurological deficits PSYCHIATRIC: Mood and affect appear appropriate SKIN: Patient has multiple blood blisters on patients arms. There is a rash in the patients groin folds bilaterally. LABORATORY DATA: See below. IMAGING: Imaging reports from [facility] reviewed and in patients chart PROCEDURE INFORMATION: Exam: XR Chest, 1 View Exam date and time: 09/06/20 (9:47pm) Age: 80 years old Clinical indication: Central line placement TECHNIQUE: Imaging protocol: Portable CXR Views: 1 view COMPARISON: Portable CXR of 01/28/19 FINDINGS: Comparison is made with a portable CXR done on 01/28/19. Stable cardiomegaly. S/P sternotomy. Probable crowding of vessels at the left lung base (unchanged appearance). No consolidation. No pleural effusions. Right-sided jugular venous catheter, with its tip at the approximate atrio-caval junction. No pneumothorax. IMPRESSION: Stable cardiomegaly. Previous sternotomy. No focal infiltrates. Right-sided jugular venous catheter, with its tip at the approximate atrio-caval junction. No pneumothorax. Electronically signed by: Eusebia Sinclair On 09/06/2020 22:08:57 PM MICROBIOLOGY: Please see below. ASSESSMENT: Patient is an 80 year old male with a past medical history significant for COPD, CAD, PVD, CKD, and Prostate Cance who presented to [facility] as a transfer from [facility] for higher level of care. On presentation patient was hypotensive requiring pressors. He was in acute renal failure, acute decompensated CHF, and metabolic acidosis. Nephrology was consulted for CVVHD. . PLAN: 1. Septic vs Hypovolemic Shock -Patient presented to [facility] with complaint of nausea and diarrhea. Found to be hypotensive, acidotic, and in acute renal failure. Given 4L NS and subsequently developed decompensated CHF. His hypotension could be related to dehydration in the setting of diarrhea. However the patients BP did not recover after 4L of NS. He has been afebrile and without an elevated WBC. Given his diarrhea there could be concern for intra-abdominal infection. His bilirubin was not elevated. He does have a history of C.diff in the past -Continue Levophed with goal MAP >65 -Cipro and Flagyl for empiric coverage -Blood cultures pending -Urine Culture pending -Chest X-ray negative -Procalcitonin pending -CRP pending 2. Acute Oliguric Renal Failure in setting of CKD -Patient is currently in acute oliguric renal failure. This is likely second daniel to severe dehydration and hypotension. Additionally he takes Lasix and lisinopril at home which in the setting of dehydration likely caused further kidney injury. Patient reportedly made about 120-150cc of urine all day. Baseline Cr of 3. on presentation Cr of 7.8 and BUN of 125. Patient was not hyperkalemic. -Nephrology contacted for urgent hemodialysis as patient is unable to tolerate bicarbonate drip due to acute decompensated congestive heart failure. -Left femoral hemodialysis catheter placed. Patient to be started on CVVHD. Recommendations and assistance from Nephrology appreciated -Naidu inserted for critical monitoring -Renal Ultrasound ordered 3. Anion-gap metabolic Acidosis -ABG at [facility] with pH of 7.0. Lactic acid was interestingly not elevated. His anion gap metabolic acidosis could be secondary to uremia in the setting of acute oliguric renal failure with a BUN of 125. -Patient could not tolerate bicarbonate drip. pH on repeat ABG at [facility] did come up to 7.3. -Nephrology consulted for HD. Patient to start CVVHD which should help correct his acidemia 4. Acute on chronic decompensated CHF -Patient has a history of CHF. LVEF unknown at this point. Last echocardiogram in EMR was completed in 2016. -Repeat Echocardiogram -Patients decompensation is likely secondary to the IV fluid that he had received. Patient to be started on CVVHD. His volume status will likely improve with this -I/O's and daily weights 5. Elevated Troponin -Likely secondary to demand ischemia. Given his renal failure and acute chf anticipate that his troponin will be slightly higher on recheck. Will continue to monitor 6. Hypoxia -Patient presented hypoxic requiring 2-4L [place]. Likely secondary to fluid overload. -Oxygen therapy orders titrate to >88-92% 7. Supratherapeutic INR -Patient had a supratherapeutic INR. Likely secondary to being in renal failure. He received vitamin K and 1.5 bags of FFP. INR came down from 9.8 to 3.87. Will hold his Warfarin for now. 8. Hematuria -Patient stated that he had a few episodes of hematuria. U/A does show blood. Likely secondary to warfarin use. -Will hold warfarin and continue to monitor 9. Atrial Fibrillation -Patient has chronic atrial fibrillation. Currently on Warfarin and Lopressor. Will hold Lopressor due to hypotension. Warfarin held due to supratherapeutic INR -Currently rate controlled 10. BPH -Holding flomax. Naidu inserted 11 Prostate Cancer -Monitored outpatient 12. DVT prophylaxis -Mechanical 13. GI prophylaxis -Protonix Laboratory Data Labs 24H Laboratory Tests 2 09/06/20 20:50: Immature Granulocyte % (Auto) 0.4, Neutrophils (%) (Auto) 68.8H, Lymphocytes (%) (Auto) 15.9L, Monocytes (%) (Auto) 12.7H, Eosinophils (%) (Auto) 2.0, Basophils (%) (Auto) 0.2, Neutrophils # (Auto) 3.9, Lymphocytes # (Auto) 0.9L, Monocytes # (Auto) 0.7, Eosinophils # (Auto) 0.1, Basophils # (Auto) 0.0, Nucleated Red Bl ood Cells % (auto) 0.0, Prothrombin Time 38.9H, Prothromb Time International Ratio 3.87, Anion Gap 20H, Glomerular Filtration Rate 7.6L, Lactic Acid Level 1.1, Calcium Level 8.4L, Phosphorus Level 7.9H, Iron Level 105, Total Iron Binding Capacity 214L, Transferrin % Saturation 49.1, Ferritin 634H, Total Bilirubin 0.2, Aspartate Amino Transf (AST/SGOT) 16, Alanine Aminotransferase (ALT/SGPT) 15, Alkaline Phosphatase 103, Lactate Dehydrogenase 200, Total Creatine Kinase 245, Creatine Kinase MB 10.6H, Creatine Kinase MB Relative Index 4.33H, Troponin I 0.21H, VC-Uun-V-Type Natriuretic Peptide 7630H, Total Protein 5.6L, Albumin 3.0L, Albumin/Globulin Ratio 1.2, Triglycerides Level 196H, Cholesterol Level 187 09/06/20 21:10: Blood Gas Puncture Site UNKNOWN, Blood Gas Bicarbonate Standard 13.7, Venous Blood pH 7.221L, Venous Blood Partial Pressure CO2 33.1L, Venous Blood Partial Pressure O2 49.6, Venous Blood Total Carbon Dioxide 14.3L, Venous Blood HCO3 13.3L, Venous Blood Oxygen Saturation 81.7H, Venous Blood Base Excess -13.3L 09/06/20 22:35: Blood Gas Bicarbonate Standard 13.7L, Arterial Blood pH 7.307L, Arterial Blood Partial Pressure CO2 22.9L, Arterial Blood Partial Pressure O2 162.6H, Arterial Blood Total CO2 11.9L, Arterial Blood HCO3 11.2L, Arterial Blood Base Excess - 13.6L, Arterial Blood Oxygen Saturation 98.7 CBC/BMP Laboratory Tests 09/06/20 20:50 Microbiology Microbiology 09/06/20 Blood Culture, Received Pending 09/06/20 Blood Culture, Received Pending Home Medications Scheduled Acetaminophen (Tylenol Arthritis) 650 Mg Tablet.er, 650 MG PO Q8H Allopurinol (Allopurinol) 100 Mg Tablet, 100 MG PO DAILY Aspirin (Ecotrin) 81 Mg Tablet.dr, 81 MG PO QHS Calcitriol (Calcitriol) 0.25 Mcg Capsule, 0.25 MCG PO Q2D Ferrous Gluconate (Ferrous Gluconate) 324 Mg Tablet, 324 MG PO QPM Finasteride (Finasteride) 5 Mg Tablet, 5 MG PO QHS Folic Acid (Folic Acid) 1 Mg Tablet, 1 MG PO QHS Furosemide (Furosemide) 40 Mg Tablet, 40 MG PO BID TAKES AM AND PM Gemfibrozil (Gemfibrozil) 600 Mg Tablet, 600 MG PO BID L.acidoph/LJasonbulg/B.bif/S.therm (Pearl-Bid Caplet) 1 Each Tablet, 1 TAB PO QPM Leuprolide Acetate (Lupron Depot) Unknown Strength Syringekit, 1 DOSE IM ASDIRECTED EVERY 6 MONTHS Lisinopril (Lisinopril) 5 Mg Tablet, 5 MG PO DAILY Metoprolol Tartrate (Metoprolol Tartrate) 25 Mg Tablet, 12.5 MG PO BID Omeprazole (Omeprazole) 40 Mg Capsule.dr, 40 MG PO DAILY Rosuvastatin Calcium (Rosuvastatin Calcium) 20 Mg Tablet, 20 MG PO QHS Tamsulosin HCl (Flomax) 0.4 Mg Capsule, 0.4 MG PO QHS Warfarin Sodium (Warfarin Sodium) 3 Mg Tablet, 3 MG PO 2XW TUES/THURS AT BEDTIME Warfarin Sodium (Warfarin Sodium) 2 Mg Tablet, 2 MG PO 5XW SUN/MON/FRI/FRI/SAT AT BEDTIME Scheduled PRN Albuterol Sulfate (Proair Hfa) 8.5 Gm Hfa.aer.ad, 2 PUFF INH Q6H PRN for SOB/WHEEZING Nitroglycerin (Nitrostat) 0.4 Mg Tab.subl, 0.4 MG SL Q5MP PRN for CHEST PAIN Allergies Coded Allergies: No Known Allergies (Unverified , 01/28/19) A-FIB/CHADSVASC A-FIB History Current/History of A-Fib/PAF?: Yes Current PO Anticoag Therapy: No Age/Risk Factor Scoring CHADSVASC: CHADSVASC Response (Comments) Value Age Risk Factor Age >/= 75 years old 2 Total 2 Treatment Treatment ordered: Holding Warfarin Reason Anticoagulant not given: Supratherapeutic Warfarin GME ATTESTATION GME ATTESTATION My faculty preceptor for this patient encounter was physically present during the encounter and was fully available. All aspects of the patient interview, examination, medical decision making process, and medical care plan development were reviewed and approved by the faculty preceptor. The faculty preceptor is aware and concurs with the plan as stated in the body of this note and will attest to such by his/her cosignature. ATTENDING NOTE TIME OF ADAMA 951PM is an 80 yr old w a hx of CHF COPD DM HTN Afib SAVR vs TAVR? PVD and CAD/CABG who was transferred from an outside hospital for management of hypotension and VINH likely 2/2 n/v/d; he also has acute CHF, supratherapeutic INR and anemia. placed a line for pressors & made arrangements for dialysis. rest per 's H&P OLEG MADSEN DO Sep 07, 2020 00:19 CLARIBEL GARCIA MD Sep 12, 2020 14:34
[2020-09-07] MEDS ORDERED: CALCIUM GLUCONATE 1,000 MG in D5W MINI-BAG PLUS 100 ML IV ONE (04:15)
[2020-09-07 04:24] LABS: ALBUMIN 3.1 GM/DL (3.2-5.2); ALT/SGPT 16 U/L (12-78); BILIRUBIN,TOTAL 0.3 MG/DL (0.2-1.0); BLOOD UREA NITROGEN 91 MG/DL (7-18); C REACTIVE PROTEIN QUANTITATIV 1.94 MG/DL (0.00-0.30); CALCIUM LEVEL 8.3 MG/DL (8.8-10.2); CARBON DIOXIDE LEVEL 18 MEQ/L (21-32); CHLORIDE LEVEL 105 MEQ/L (98-107); CHOLESTEROL LEVEL 181 MG/DL (< 200); CPK CREATINE PHOSPHOKINASE 824 U/L (39-308); CREATININE FOR GFR 5.21 MG/DL (0.70-1.30); GLOMERULAR FILTRATION RATE 11.4 (>35); GLUCOSE, FASTING 97 MG/DL (70-100); LDH LACTATE DEHYDROGENASE 238 U/L (87-241); MAGNESIUM LEVEL 1.7 MG/DL (1.8-2.4); PHOSPHORUS LEVEL 5.6 MG/DL (2.5-4.9); POTASSIUM SERUM 3.6 MEQ/L (3.5-5.1); SODIUM LEVEL 140 MEQ/L (136-145); TOTAL PROTEIN 5.9 GM/DL (6.4-8.2); TRIGLYCERIDES LEVEL 165 MG/DL (<150); TROPONIN I 0.28 NG/ML (< 0.10); URIC ACID 3.4 MG/DL (3.5-7.2)
[2020-09-07 04:48] LABS: CLOSTRIDIUM DIFFICILE PCR NEGATIVE (NEGATIVE)
[2020-09-07] MEDS ORDERED: MAG SULF 1GM/100ML (MAG RUN) 1 GM in IV 1 EA IV SCH (05:00)
[2020-09-07] MEDS: KCL 20MEQ IN 100ML SWI (KRUN) 20 MEQ in IV 1 EA IV SCH ×4 (05:31→07:31)
[2020-09-07] MEDS ORDERED: LOPERAMIDE 2 MG CAPLET PO PRN (06:00)
[2020-09-07] MEDS: metroNIDAZOLE 500 MG in IV 1 EA IV SCH ×3 (06:00→21:42)
[2020-09-07] MEDS: HumaLOG INSULIN (NovoLOG) PER UNIT SC SCH ×2 (07:30→11:44)
--- NOTE | 2020-09-07 07:46 | IPNPDOC ---
Text Note Date of Service The patient was seen on 09/07/20. NOTE Subjective: Patient seen and examined this morning at bedside. Patient is in the ICU continue his dialysis is running at bedside. Patient is awake and alert and responding appropriately to questions. Patient tells me feeling better but continues to have diarrhea he had a few bouts last evening. He is no longer nauseous and hasn't vomited. He does have an appetite and would like to try to eat. Objective: Constitutional: Awake and alert, in no apparent distress, weak elderly and frail. He is hard of hearing. ENT: Sclera are clear. Mucosa is moist. Respiratory: Lungs faint wheezing bilaterally. No respiratory distress. No use of accessory muscles. Saturating at 96% on 2 L of oxygen Cardiovascular: Irregular sounding rhythm with a 2/6 systolic murmur A. fib seen on monitor heart rate is 90s at bedside Gastrointestinal: Abdomen is soft, non distended, non tender. Naidu catheter in place. Musculoskeletal: No edema. No joint deformities. RUE 5/5, LUE 5/5, BLE 5/5 Neurologic: No focal neurological deficit. Mental Status: A&O x3, normal affect Skin: Some bruising on skin ecchymoses. Left femoral vein dialysis catheter and right IJ catheter Assessment/plan: 80 year old male with a past medical history significant for COPD, CAD, PVD, CKD, and Prostate Cance who presented to [facility] as a transfer from [facility] for higher level of care. On presentation patient was hypotensive requiring pressors. He was in acute renal failure, acute decompensated CHF, and metabolic acidosis. Nephrology was consulted for CVVHD. Patient admitted to the ICU for management. # Shock: Unclear if this is septic versus hypovolemic. He may have been hypovolemic at [facility] and has been resuscitated with fluids. The report was he was very dehydrated from vomiting and diarrhea. He also has a history of colitis but is currently afebrile and does not have an elevated WBC count. We will continue to cover him with Flagyl and ciprofloxacin empirically. GI panel was sent. C. difficile PCR was negative. Pro-calcitonin is 0.18 likelihood of bacterial infection is low but not completely negative. Will continue the antibiotics for now but will discontinue them with continued clinical improvement. Fu BCx, UCx. Continue Levophed with goal MAP >65. # Acute renal failure on CKD: Started on CVVHD at time of admission. Left femoral hemodialysis catheter placed by Dr Obrien. Nephrology is consulted. She was unable to tolerate bicarbonate drip due to decompensated CHF. Patient's baseline CKD is unclear. Hold home Lasix and lisinopril for now as they can further worsen his kidney function. # AG metabolic acidosis: In the setting of sepsis and acute renal failure. ABG initially showing a pH of 7 at [facility] which improved to 7.3 at [facility]. Should improve as renal function improves on CVVHD. # Acute on chronic CHF: Decompensated.Fu echo. EF unknown at this point. His c onversation is related to the 4 L of IV fluids he received at [facility]. If patient tolerates CVVHD should remove some fluid and improve his clinical status. # Elevated troponin: This is likely demand ischemia it went up to 0.28 and then leveled off # hypoxia: Likely secondary to fluid overload, should improve his fluid was taken off. Oxygen therapy orders titrate to >88-92% # Supratherapeutic INR: Was found to have separate therapeutic INR close to 10 at [facility] given 1.5 bags of FFP which brought it down to 3.87. We'll continue to monitor and hold off on warfarin for now. # Hematuria: Likely in the setting of supratherapeutic INR. Continue to monitor. # Atrial fibrillation: Rate is currently controlled. Warfarin will be held for now due to supratherapeutic INR. Hold Lopressor due to hypotension. # BPH: Naidu inserted can hold Flomax for now. # Prostate cancer: Continue to monitor outpatient. # DVT prophylaxis: SCDs only and then warfarin once therapeutic range. JUAN FRANCISCO Ozuna Hospitalist Dahlia GLASS I+O Dahlia GLASS I+O Laboratory Tests 09/06/20 20:50 09/07/20 03:00 Vital Signs Date Time Temp Pulse Resp B/P (MAP) Pulse Ox O2 Delivery O2 Flow Rate FiO2 09/07/20 07:00 102 24 108/60 (76) 98 Nasal Cannula 1.0 09/07/20 04:40 97.2 I&O- Last 24 Hours up to 6 AM 09/07/20 06:00 Intake Total 455 ml Output Total 329 ml Balance 126 ml VÍCTOR OZUNA MD Sep 07, 2020 07:46
[2020-09-07] MEDS: NOREPINEPHRINE BITARTRATE 8 MG in D5W 492 ML IV SCH (08:00)
--- NOTE | 2020-09-07 08:12 | RO ---
OPERATIVE NOTE DATE OF OPERATION: 09/06/2020 INDICATIONS FOR PROCEDURE: Hemodialysis access. PREPROCEDURE DIAGNOSIS: Renal failure. POSTPROCEDURE DIAGNOSIS: Renal failure. PROCEDURE: Hemodialysis catheter. SURGEON: Christen Obrien MD. EXTRUDING DEPARTMENT SUPERVISOR: None. CONSENT: Obtained from the patient prior to the procedure. Indication, risks, and benefits were explained at length. ANESTHESIA: 1% Lidocaine. PROCEDURE SUMMARY: A central line insertion practices form was completed by an independent observer. A time-out was performed. Full sterile technique was maintained throughout the procedure, including surgical cap, mask, protective eyewear, full gown, and sterile gloves. The patient was placed supine. The left femoral region was prepped using chlorhexidine scrub and draped in sterile fashion using a full drape and a sterile probe cover employed. The left femoral vein was identified using ultrasound. Anesthesia was achieved over the vein using 1% Lidocaine. Using real-time [id number] guidance, the introducer needle was inserted into the femoral vein under direct ultrasound visualization. Venous blood was withdrawn. The syringe was removed and a guidewire was advanced into the introducer needle. The introducer needle was removed over the guidewire. The guidewire was visualized in the left femoral vein by ultrasound. A small incision was made at the skin surface with a scalpel, and the dilator was exchanged over the guidewire. After appropriate dilation was obtained, the dilator was exchanged over the wire for a dual-lumen hemodialysis catheter. The wire was removed and the catheter was sutured in place. A sterile chlorhexidine-impregnated dressing was placed over the catheter at the insertion site. The patient tolerated the procedure without any hemodynamic compromise. At the time of procedure completion, all ports were aspirated and flushed properly. Heparin was instilled into the dialysis ports. Estimated blood loss was 8 mL.
--- NOTE | 2020-09-07 08:12 | RO ---
OPERATIVE NOTE DATE OF OPERATION: 09/06/2020 INDICATIONS FOR PROCEDURE: Vasopressor administration. PREPROCEDURE DIAGNOSIS: Shock. POSTPROCEDURE DIAGNOSIS: Shock. INDICATIONS FOR PROCEDURE: Shock. PROCEDURE: Internal jugular central line. SURGEON: Christen Obrien MD DAIRY NUTRITIONIST: None. ANESTHESIA: 1% Lidocaine. CONSENT: Verbal consent was obtained from the patient prior to the procedure. The procedure was performed emergently. We did discuss the indications, risks, and benefits verbally prior to the procedure. PROCEDURE SUMMARY: A central line insertion practices form was completed by an independent observer. A time-out was performed. Full sterile technique was maintained throughout the procedure, including surgical cap, mask, protective eyewear, full gown, and sterile gloves. The patient was placed in Trendelenburg position. The right neck region was prepped using chlorhexidine scrub and draped in sterile fashion using a full drape and a sterile probe cover employed. The right internal jugular vein was identified using ultrasound. Anesthesia was achieved over the vein using 1% Lidocaine. Using real-time [id number]-vilor guidance, the introducer needle was inserted into the internal jugular vein under direct ultrasound visualization. Venous blood was withdrawn. The syringe was removed and a guidewire was advanced into the introducer needle. The introducer needle was removed over the guidewire. A small incision was made at the skin surface with a scalpel, and the dilator was exchanged over the guidewire. After appropriate dilation was obtained, the dilator was exchanged over the wire for a triple lumen central venous catheter. The wire was removed and a catheter was sutured in place at 18 cm. A sterile chlorhexidine-impregnated dressing was placed over the catheter at the insertion site. The patient tolerated the procedure without any hemodynamic compromise. At the time of procedure completion, all ports were aspirated and flushed properly. Postprocedure chest x-ray shows the central line in satisfactory position with no pneumothorax. Estimated blood loss less than 3 mL.
[2020-09-07] MEDS: LACTOBACILLUS ACIDOPHILUS CAP (BACID) PO SCH ×2 (09:26→20:34)
[2020-09-07] MEDS: NYSTATIN 100,000 UNITS/GM TOPICAL PWD 15 GM TOP SCH ×2 (09:27→20:35)
[2020-09-07] MEDS: PANTOPRAZOLE 40MG VIAL (C9113 PER 1) IV SCH ×2 (09:27→20:34)
[2020-09-07] MEDS: ACETAMINOPHEN TAB 650MG DOSE (2X325MG) PO PRN (09:32)
[2020-09-07 09:49] LABS: MAGNESIUM LEVEL 2.1 MG/DL (1.8-2.4); PHOSPHORUS LEVEL 3.5 MG/DL (2.5-4.9); POTASSIUM SERUM 3.9 MEQ/L (3.5-5.1)
[2020-09-07] MEDS ORDERED: CALCIUM GLUCONATE 1,000 MG in NS 100 ML IV ONE (10:30)
[2020-09-07] MEDS ORDERED: SODIUM CHLORIDE 0.9% INJ 10 ML SYR IV PRN (10:30)
[2020-09-07] MEDS ORDERED: KCL 20MEQ IN 100ML SWI (KRUN) 20 MEQ in IV 1 EA IV ONE ×2 (10:30)
[2020-09-07 10:43] LABS: PTH INTACT 901.9 PG/ML (18.5-88.0)
[2020-09-07 10:44] LABS: VITAMIN B12 LEVEL 1014 PG/ML (247-911)
[2020-09-07 10:51] LABS: HEMATOCRIT 23.8 % (42.0-52.0); HEMOGLOBIN 8.3 g/dl (13.5-17.5); MEAN CORPUSCULAR HEMOGLOBIN 31.4 pg (27.0-33.0); MEAN CORPUSCULAR HGB CONC 34.9 g/dl (32.0-36.5); MEAN CORPUSCULAR VOLUME 90.2 fl (80.0-96.0); PLATELET COUNT, AUTOMATED 106 10^3/uL (150-450); RED BLOOD COUNT 2.64 10^6/uL (4.30-6.10); WHITE BLOOD COUNT 6.1 10^3/uL (4.0-10.0)
[2020-09-07 10:56] LABS: FOLATE > 24.0 NG/ML (>5.4); HEPATITIS B SURFACE ANTIGEN NEGATIVE (NEGATIVE)
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
[2020-09-07 11:20] LABS: HEPATITIS C VIRUS ABY INDEX < 0.0 INDEX (<0.8)
[2020-09-07 11:21] LABS: HEPATITIS B CORE ANTIBODY IGM NEGATIVE (NEGATIVE)
[2020-09-07 11:22] LABS: CREATININE FOR GFR 3.49 MG/DL (0.70-1.30)
[2020-09-07 11:24] LABS: HEPATITIS A ANTIBODY IGM NEGATIVE (NEGATIVE)
[2020-09-07 12:11] LABS: ALBUMIN % 60.5 % (55.8-66.1)
[2020-09-07 12:12] LABS: ALBUMIN 3.57 GM/DL (3.29-5.55); ALPHA-1-GLOBULIN % 6.1 % (2.9-4.9); ALPHA-1-GLOBULINS 0.36 GM/DL (0.17-0.41); ALPHA-2-GLOBULINS 0.77 GM/DL (0.42-0.99); ALPHA-2-GLOBULINS % 13.1 % (7.1-11.8); BETA-1-GLOBULINS 0.27 GM/DL (0.28-0.60); BETA-1-GLOBULINS % 4.6 % (4.7-7.2); GAMMA GLOBULIN % 10.7 % (11.1-18.8); GAMMA GLOBULINS 0.63 GM/DL (0.65-1.58)
[2020-09-07 15:37] LABS: HEMATOCRIT 23.6 % (42.0-52.0); HEMOGLOBIN 8.3 g/dl (13.5-17.5); MEAN CORPUSCULAR HEMOGLOBIN 31.6 pg (27.0-33.0); MEAN CORPUSCULAR HGB CONC 35.2 g/dl (32.0-36.5); MEAN CORPUSCULAR VOLUME 89.7 fl (80.0-96.0); RED BLOOD COUNT 2.63 10^6/uL (4.30-6.10); WHITE BLOOD COUNT 5.8 10^3/uL (4.0-10.0)
[2020-09-07 15:38] LABS: PLATELET COUNT, AUTOMATED 91 10^3/uL (150-450)
[2020-09-07 16:04] LABS: CALCIUM LEVEL 9.3 MG/DL (8.8-10.2); CREATININE FOR GFR 2.7 MG/DL (0.70-1.30); GLOMERULAR FILTRATION RATE 24.3 (>35); MAGNESIUM LEVEL 2.1 MG/DL (1.8-2.4); PHOSPHORUS LEVEL 2.6 MG/DL (2.5-4.9); POTASSIUM SERUM 4.2 MEQ/L (3.5-5.1)
--- NOTE | 2020-09-07 19:43 | CCN ---
CRITICAL CARE NOTE DATE: 09/07/2020 Mr. Manzano is seen this morning on his bedside in the intensive care unit. Continuous renal replacement therapy (CRRT) was started last evening and still in progress on his bedside. Patient is feeling much better and nursing staff reports that he has been off Levophed since 9:00 a.m. He did eat some breakfast. He continues to have some obvious wheezing and has minimal urine output. No fever or chills reported. PHYSICAL EXAMINATION: Patient is awake and alert, able to answer questions appropriately. Temperature 96.7 degrees Fahrenheit, heart rate 98 per minute, respiratory rate 20 per minute, blood pressure is about 105/60 mmHg, oxygen saturation 96% on 2 liters oxygen. HEAD: Atraumatic. NECK: Supple and he has a central line on right side of his neck with significant bleeding under the operative site. HEART SOUNDS: Irregular in rhythm and without a pericardial friction rub. LUNGS: Bilateral expiratory wheezing. ABDOMEN: Soft and nontender. Bowel sounds are normal. EXTREMITIES: Without any cyanosis or clubbing. . NEUROLOGIC: He is awake and alert and without any focal deficit. LABORATORY DATA: This morning's laboratories show a sodium level 137, potassium 4.0, CO2 is up to 22, BUN 62, creatinine 3.49, glucose 108, calcium 9.0. WBC 6.1, hemoglobin 8.3, hematocrit 23.8, platelets 106. PROBLEMS: 1. Oliguric acute renal failure. Patient is still oliguric and remains on CRRT. We plan to continue with the same treatment for the next 24 hours and his orders are being renewed. 2. Metabolic acidosis. His acidosis has improved and resolved now. CRRT remains in progress. 3. Congestive heart failure. His volume status remains decompensated with minimal urine output. He is now off pressors, so we can start trying to remove some fluid with CRRT. Orders are being adjusted. 4. Anemia. His anemia is stable and does not need any urgent transfusion. He had severe coagulopathy, with INR as high as 9, which has now improved with last INR of 3.87 last evening. His Coumadin is on hold. 5. Shock. Etiology remains uncertain. He was not certainly hypovolemic, as he did receive over 4 liters of fluid, even prior to transfer to [facility] and he was still hypotensive requiring pressors. Concerned about possibility of colitis causing some sepsis. He did have diarrhea for four days. Now his blood pressure is improving and he is off pressors now. He has been given antibiotics, including ciprofloxacin and metronidazole. Thirty-six minutes of critical care time spent at the bedside during which no procedures were performed.
[2020-09-07 20:51] LABS: HEMATOCRIT 24.4 % (42.0-52.0); HEMOGLOBIN 8.5 g/dl (13.5-17.5); MEAN CORPUSCULAR HEMOGLOBIN 31.6 pg (27.0-33.0); MEAN CORPUSCULAR HGB CONC 34.8 g/dl (32.0-36.5); MEAN CORPUSCULAR VOLUME 90.7 fl (80.0-96.0); PLATELET COUNT, AUTOMATED 102 10^3/uL (150-450); RED BLOOD COUNT 2.69 10^6/uL (4.30-6.10); WHITE BLOOD COUNT 6.2 10^3/uL (4.0-10.0)
[2020-09-07 21:15] LABS: CALCIUM LEVEL 9.4 MG/DL (8.8-10.2); CREATININE FOR GFR 2.22 MG/DL (0.70-1.30); GLOMERULAR FILTRATION RATE 30.4 (>35); MAGNESIUM LEVEL 2.1 MG/DL (1.8-2.4); PHOSPHORUS LEVEL 2.4 MG/DL (2.5-4.9); POTASSIUM SERUM 4.1 MEQ/L (3.5-5.1)
[2020-09-07] MEDS ORDERED: POTASSIUM PHOSPHATE IV ONE (22:30)
[2020-09-07] MEDS ORDERED: NS IV ONE (22:30)
[2020-09-07] MEDS: CIPROFLOXACIN 400 MG in IV 1 EA IV SCH (22:36)
[2020-09-08] VITALS (24 sets, daily range): BP systolic 91–146; BP diastolic 55–80
[2020-09-08 04:21] LABS: BASO % 0.3 % (0.0-1.0); EOS # 0.2 10^3/uL (0.0-0.5); EOS % 2.5 % (0.0-3.0); HEMATOCRIT 23.4 % (42.0-52.0); HEMOGLOBIN 8.1 g/dl (13.5-17.5); LYMPH # 0.6 10^3/uL (1.5-5.0); LYMPH % 10.5 % (24.0-44.0); MEAN CORPUSCULAR HEMOGLOBIN 31.4 pg (27.0-33.0); MEAN CORPUSCULAR HGB CONC 34.6 g/dl (32.0-36.5); MEAN CORPUSCULAR VOLUME 90.7 fl (80.0-96.0); MONO # 0.8 10^3/uL (0.0-0.8); MONO % 12.7 % (0.0-5.0); NEUTROPHILS # 4.5 10^3/uL (1.5-8.5); NEUTROPHILS % 73.8 % (36.0-66.0); PLATELET COUNT, AUTOMATED 105 10^3/uL (150-450); RED BLOOD COUNT 2.58 10^6/uL (4.30-6.10); WHITE BLOOD COUNT 6.1 10^3/uL (4.0-10.0)
[2020-09-08] MEDS: ONDANSETRON 4MG/2ML VIAL IV PRN (04:54)
[2020-09-08 05:05] LABS: ALBUMIN 2.9 GM/DL (3.2-5.2); BILIRUBIN,TOTAL 0.6 MG/DL (0.2-1.0); CALCIUM LEVEL 9.1 MG/DL (8.8-10.2); CREATININE FOR GFR 1.71 MG/DL (0.70-1.30); GLOMERULAR FILTRATION RATE 41.1 (>35); MAGNESIUM LEVEL 2.2 MG/DL (1.8-2.4); PHOSPHORUS LEVEL 2.9 MG/DL (2.5-4.9); POTASSIUM SERUM 4.2 MEQ/L (3.5-5.1)
[2020-09-08] MEDS: metroNIDAZOLE 500 MG in IV 1 EA IV SCH ×3 (05:56→21:51)
[2020-09-08] MEDS: gemfibroziL 600 MG TAB PO SCH ×2 (08:56→20:19)
[2020-09-08] MEDS: PANTOPRAZOLE 40MG VIAL (C9113 PER 1) IV SCH ×2 (08:56→20:18)
[2020-09-08] MEDS: LACTOBACILLUS ACIDOPHILUS CAP (BACID) PO SCH ×2 (08:56→20:19)
[2020-09-08] MEDS: NYSTATIN 100,000 UNITS/GM TOPICAL PWD 15 GM TOP SCH ×2 (08:57→20:20)
[2020-09-08] MEDS ORDERED: IPRATROPIUM 0.5MG/ALBUTEROL 2.5MG INH SOL UD 3ML (DUONEB) NEB PRN (10:00)
[2020-09-08] MEDS ORDERED: guaiFENesin SYRUP 200 MG/10 ML UDC PO PRN (10:15)
[2020-09-08] MEDS ORDERED: FUROSEMIDE 100MG/10ML VIAL (J1940) IV ONE (10:15)
[2020-09-08 11:02] LABS: HEMATOCRIT 24.7 % (42.0-52.0); HEMOGLOBIN 8.6 g/dl (13.5-17.5); MEAN CORPUSCULAR HEMOGLOBIN 32.1 pg (27.0-33.0); MEAN CORPUSCULAR HGB CONC 34.8 g/dl (32.0-36.5); MEAN CORPUSCULAR VOLUME 92.2 fl (80.0-96.0); PLATELET COUNT, AUTOMATED 106 10^3/uL (150-450); RED BLOOD COUNT 2.68 10^6/uL (4.30-6.10); WHITE BLOOD COUNT 6.6 10^3/uL (4.0-10.0)
[2020-09-08 11:23] LABS: CALCIUM LEVEL 9.5 MG/DL (8.8-10.2); CREATININE FOR GFR 1.5 MG/DL (0.70-1.30); GLOMERULAR FILTRATION RATE 47.8 (>35); MAGNESIUM LEVEL 2.3 MG/DL (1.8-2.4); POTASSIUM SERUM 4.4 MEQ/L (3.5-5.1)
--- NOTE | 2020-09-08 12:14 | IPN ---
CRITICAL CARE NOTE DATE: 09/08/2020 SUBJECTIVE: Mr. Manzano is seen this morning on his bedside. He remains oliguric and still on CRRT. His urine output has been between 6 and 12 ml/hr. His blood pressure has been much better now and he has been off pressors since yesterday morning. He is able to eat and diarrhea has improved. No fever or chills reported. PHYSICAL EXAMINATION: VITAL SIGNS: Temperature is 97.7 degrees Fahrenheit, heart rate is 92 per minute and respiratory rate is 18 per minute. Blood pressure is 116/74 mmHg and oxygen saturation 98% on room air. HEAD AND NECK: His head is atraumatic. Neck is supple and JVD is difficult to be assessed. He has a central line in his right internal jugular vein. HEART: Irregular in rhythm. LUNGS: Bilateral expiratory wheezing and diminished breath sounds at the bases. ABDOMEN: Soft and nontender. Bowel sounds are normal. EXTREMITIES: Without any cyanosis or clubbing. NEUROLOGIC: He is awake and without any focal deficit. LABORATORY DATA: Today's labs shows a sodium of 139, potassium of 4.4, CO2 25, BUN 20 and creatinine 1.5. Glucose is 116 and calcium is 9.5. WBC count is 6.6, hemoglobin is 8.6, and hematocrit is 24.7. PROBLEMS: 1. Oliguric acute renal failure. Patient remains on CRRT. He has minimal urine output and we are going to try to give him Lasix 100 mg today and see if he responds. 2. Hypotension. Blood pressure has improved and he has been off pressors for just over 24 hours. 3. Congestive heart failure/hypervolemia. The patient is still somewhat hypervolemic with CVP of 15 now and we are trying to remove about 50 ml of fluid per hour with CRRT. I have also given him one dose of 100 mg of Lasix today and see if he responds. 4. Anemia, at present anemia is stable and does not need any urgent intervention. 5. Metabolic acidosis. The acidosis has corrected with CRRT. No other intervention is needed at present. 6. Diarrhea. He did have diarrhea which has resolved. He has a remote history of C. Diff colitis but at this point seems to be doing well. Thirty-Five minutes of critical care time spent on his bedside during which no procedures were performed. Orders for CRRT were written.
[2020-09-08] MEDS: IPRATROPIUM 0.5MG/ALBUTEROL 2.5MG INH SOL UD 3ML (DUONEB) NEB SCH ×2 (13:37→19:44)
[2020-09-08] MEDS: ERYTHROMYCIN OPHTH OINT OU SCH ×2 (15:55→20:22)
--- NOTE | 2020-09-08 16:35 | IPNPDOC ---
Text Note Date of Service The patient was seen on 09/08/20. NOTE Subjective: Patient seen and examined this morning at bedside. Patient is in the ICU continuous dialysis is running at bedside. Patient is awake and alert and responding appropriately to questions. Is feeling about the same as yesterday has no complaints his breathing is improved. He tried to eat last evening and wants to try to eat again today. He says his diarrhea is better. Objective: Constitutional: Awake and alert, in no apparent distress, weak elderly and frail. He is hard of hearing. ENT: Sclera are clear. Mucosa is moist. Respiratory: Lungs faint wheezing bilaterally. No respiratory distress. No use of accessory muscles. Saturating at 94% on 2 L of oxygen Cardiovascular: Irregular sounding rhythm with a 2/6 systolic murmur A. fib seen on monitor heart rate is 90s at bedside Gastrointestinal: Abdomen is soft, non distended, non tender. Naidu catheter in place. Musculoskeletal: No edema. No joint deformities. RUE 5/5, LUE 5/5, BLE 5/5 Neurologic: No focal neurological deficit. Mental Status: A&O x3, normal affect Skin: Some bruising on skin ecchymoses. Left femoral vein dialysis catheter and right IJ catheter Assessment/plan: 80 year old male with a past medical history significant for COPD, CAD, PVD, CKD, and Prostate Cance who presented to [facility] as a transfer from [facility] for higher level of care. On presentation patient was hypotensive requiring pressors. He was in acute renal failure, acute decompensated CHF, and metabolic acidosis. Nephrology was consulted for CVVHD. Patient admitted to the ICU for management. # Shock: Unclear if this is septic versus hypovolemic. He may have been hypovolemic at [facility] and has been resuscitated with fluids. The report was he was very dehydrated from vomiting and diarrhea. He also has a history of colitis but is currently afebrile and does not have an elevated WBC count. We will continue to cover him with Flagyl and ciprofloxacin empirically. GI panel was sent. C. difficile PCR was negative. Pro-calcitonin is 0.18 likelihood of bacterial infection is low but not completely negative. Will continue the antibiotics for now but will discontinue them with continued clinical improvem ent. Blood cultures prelim negative. Off of pressor support for >24 hours. Blood pressure better now. # Acute renal failure on CKD: Started on CVVHD at time of admission. Left femoral hemodialysis catheter placed by Dr Obrien. Nephrology is consulted. Patient's baseline CKD is unclear. Was given 1 dose of 100 mg of IV Lasix this evening improves his urine output which is currently minimal. # AG metabolic acidosis: In the setting of sepsis and acute renal failure. ABG initially showing a pH of 7 at [facility] which improved to 7.3 at [facility]s resolved with CVVHD. # Acute on chronic CHF: Decompensated.Fu echo. EF unknown at this point. Nephrology using CVVHD to remove some fluid which showed improve his clinical status. # Elevated troponin: This is likely demand ischemia it went up to 0.28 and then leveled off # hypoxia: Likely secondary to fluid overload, should improve his fluid was ta sly off. Oxygen therapy orders titrate to >88-92% # Supratherapeutic INR: Was found to have separate therapeutic INR close to 10 at [facility] given 1.5 bags of FFP which brought it down to 3.87. We'll continue to monitor and hold off on warfarin for now. # Hematuria: Likely in the setting of supratherapeutic INR. Continue to monitor. # Atrial fibrillation: Rate is currently controlled. Warfarin will be held for now due to supratherapeutic INR. Hold Lopressor due to hypotension. # BPH: Naidu inserted can hold Flomax for now. # Prostate cancer: Continue to monitor outpatient. # DVT prophylaxis: SCDs only and then warfarin once therapeutic range. JUAN FRANCISCO Ozuna Hospitalist Dahlia GLASS, I+O Dahlia GLASS I+O Laboratory Tests 09/07/20 20:37 09/08/20 04:06 09/08/20 10:42 Vital Signs Date Time Temp Pulse Resp B/P (MAP) Pulse Ox O2 Delivery O2 Flow Rate FiO2 09/08/20 16:00 96.7 106 14 95/60 (72) 93 Room Air 09/07/20 11:00 1.0 I&O- Last 24 Hours up to 6 AM 09/08/20 06:00 Intake Total 1582.0 ml Output Total 1078 ml Balance 504.0 ml VÍCTOR OZUNA MD Sep 08, 2020 16:35
[2020-09-08 16:59] LABS: HEMOGLOBIN 8.3 g/dl (13.5-17.5); MEAN CORPUSCULAR HEMOGLOBIN 31.9 pg (27.0-33.0); MEAN CORPUSCULAR HGB CONC 34.6 g/dl (32.0-36.5); MEAN CORPUSCULAR VOLUME 92.3 fl (80.0-96.0); WHITE BLOOD COUNT 5.6 10^3/uL (4.0-10.0)
[2020-09-08 17:02] LABS: PLATELET COUNT, AUTOMATED 94 10^3/uL (150-450)
[2020-09-08 17:17] LABS: CALCIUM LEVEL 9.3 MG/DL (8.8-10.2); CREATININE FOR GFR 1.35 MG/DL (0.70-1.30); MAGNESIUM LEVEL 2.3 MG/DL (1.8-2.4); PHOSPHORUS LEVEL 3.1 MG/DL (2.5-4.9); POTASSIUM SERUM 4.2 MEQ/L (3.5-5.1)
[2020-09-08] MEDS: FINASTERIDE 5 MG TAB PO SCH (20:18)
[2020-09-08] MEDS: FOLIC ACID 1 MG TAB PO SCH (20:19)
[2020-09-08] MEDS: ROSUVASTATIN 10 MG TAB (CRESTOR) PO SCH (20:19)
[2020-09-08] MEDS: ASPIRIN 81 MG ENTERIC TAB PO SCH (20:19)
[2020-09-08] MEDS: CIPROFLOXACIN 400 MG in IV 1 EA IV SCH (23:01)
[2020-09-08 23:23] LABS: HEMATOCRIT 23.8 % (42.0-52.0); HEMOGLOBIN 8.2 g/dl (13.5-17.5); MEAN CORPUSCULAR HGB CONC 34.5 g/dl (32.0-36.5); PLATELET COUNT, AUTOMATED 107 10^3/uL (150-450); RED BLOOD COUNT 2.56 10^6/uL (4.30-6.10); WHITE BLOOD COUNT 6.7 10^3/uL (4.0-10.0)
[2020-09-08 23:46] LABS: CALCIUM LEVEL 9.1 MG/DL (8.8-10.2); CREATININE FOR GFR 1.31 MG/DL (0.70-1.30); GLOMERULAR FILTRATION RATE 55.9 (>35); MAGNESIUM LEVEL 2.2 MG/DL (1.8-2.4); PHOSPHORUS LEVEL 2.7 MG/DL (2.5-4.9); POTASSIUM SERUM 4.2 MEQ/L (3.5-5.1)
[2020-09-09] VITALS (29 sets, daily range): BP systolic 97–158; BP diastolic 54–84
[2020-09-09] MEDS: ACETAMINOPHEN TAB 650MG DOSE (2X325MG) PO PRN ×3 (00:08→16:58)
[2020-09-09] MEDS: IPRATROPIUM 0.5MG/ALBUTEROL 2.5MG INH SOL UD 3ML (DUONEB) NEB SCH ×4 (02:17→20:12)
[2020-09-09] MEDS: metroNIDAZOLE 500 MG in IV 1 EA IV SCH ×3 (05:14→22:14)
[2020-09-09 05:34] LABS: HEMATOCRIT 22.8 % (42.0-52.0); HEMOGLOBIN 7.9 g/dl (13.5-17.5); MEAN CORPUSCULAR HEMOGLOBIN 31.9 pg (27.0-33.0); MEAN CORPUSCULAR HGB CONC 34.6 g/dl (32.0-36.5); MEAN CORPUSCULAR VOLUME 91.9 fl (80.0-96.0); PLATELET COUNT, AUTOMATED 102 10^3/uL (150-450); RED BLOOD COUNT 2.48 10^6/uL (4.30-6.10); WHITE BLOOD COUNT 5.5 10^3/uL (4.0-10.0)
[2020-09-09 05:44] LABS: INR 1.42; PROTHROMBIN TIME 17.7 SECONDS (12.5-14.3)
[2020-09-09] MEDS: ONDANSETRON 4MG/2ML VIAL IV PRN ×3 (05:54→21:17)
--- NOTE | 2020-09-09 05:54 | ECGEPIP ---
[facility] - ED Test Date: 2020-09-07 Pat Name: BRITTON GOMEZ Department: Room: [place] [address] Gender: Male [employer]ished [employer]: : 1940 Requested By: Sonali Franco Order Number: [id number] Reading MD: Fuentes Don Measurements Intervals [place] Rate: 103 P: KS: 0 QRS: -28 QRSD: 81 T: 156 QT: 296 QTc: 389 Interpretive Statements ATRIAL FIBRILLATION WITH RAPID VENTRICULAR RESPONSE LOW VOLTAGE IN LIMB LEADS POSSIBLE PRIOR INFERIOR INFARCT SIMILAR TO 03/05/16 Electronically Signed on 09-09-2020 5:53:35 EST by Fuentes Don
[2020-09-09 06:42] LABS: ALBUMIN 2.8 GM/DL (3.2-5.2); BILIRUBIN,TOTAL 0.4 MG/DL (0.2-1.0); CALCIUM LEVEL 8.8 MG/DL (8.8-10.2); CREATININE FOR GFR 1.27 MG/DL (0.70-1.30); GLOMERULAR FILTRATION RATE 57.9 (>35); PHOSPHORUS LEVEL 2.1 MG/DL (2.5-4.9); TOTAL PROTEIN 5.5 GM/DL (6.4-8.2)
[2020-09-09 07:03] LABS: MAGNESIUM LEVEL 2.3 MG/DL (1.8-2.4)
[2020-09-09] MEDS: gemfibroziL 600 MG TAB PO SCH (09:39)
[2020-09-09] MEDS: ERYTHROMYCIN OPHTH OINT OU SCH ×3 (09:39→21:00)
[2020-09-09] MEDS: LACTOBACILLUS ACIDOPHILUS CAP (BACID) PO SCH ×2 (09:39→21:01)
[2020-09-09] MEDS: PANTOPRAZOLE 40MG VIAL (C9113 PER 1) IV SCH ×2 (09:39→21:00)
[2020-09-09] MEDS: NYSTATIN 100,000 UNITS/GM TOPICAL PWD 15 GM TOP SCH ×2 (09:39→21:01)
[2020-09-09] MEDS ORDERED: NS IV ONE (10:00)
[2020-09-09] MEDS ORDERED: POTASSIUM PHOSPHATE IV ONE (10:00)
--- NOTE | 2020-09-09 10:48 | IPNPDOC ---
Text Note Date of Service The patient was seen on 09/09/20. NOTE Subjective: Patient seen and examined this morning at bedside. Patient is in the ICU continuous dialysis is running at bedside. Patient is awake and alert and responding appropriately to questions. Feels better than yesterday his eye crusting has improved. He was eating again last evening and breakfast this morning and says his diarrhea has stopped now. Objective: Constitutional: Awake and alert, in no apparent distress, weak elderly and frail. He is hard of hearing. ENT: Sclera are clear. Mucosa is moist. Respiratory: Lungs faint wheezing bilaterally. No respiratory distress. No use of accessory muscles. Saturating at 94% on 2 L of oxygen Cardiovascular: Irregular sounding rhythm with a 2/6 systolic murmur A. fib seen on monitor heart rate is 90s at bedside Gastrointestinal: Abdomen is soft, non distended, non tender. Naidu catheter in place. Musculoskeletal: No edema. No joint deformities. RUE 5/5, LUE 5/5, BLE 5/5 Neurologic: No focal neurological deficit. Mental Status: A&O x3, normal affect Skin: Some bruising on skin ecchymoses. Left femoral vein dialysis catheter and right IJ catheter Assessment/plan: 80 year old male with a past medical history significant for COPD, CAD, PVD, CKD, and Prostate Cance who presented to [facility] as a transfer from [facility] for higher level of care. On presentation patient was hypotensive requiring pressors. He was in acute renal failure, acute decompensated CHF, and metabolic acidosis. Nephrology was consulted for CVVHD. Patient admitted to the ICU for management. # Shock: Unclear if this is septic versus hypovolemic. He may have been hypovolemic at [facility] and has been resuscitated with fluids. The report was he was very dehydrated from vomiting and diarrhea. He also has a history of colitis but is currently afebrile and does not have an elevated WBC count. We will continue to cover him with Flagyl and ciprofloxacin empirically. GI panel was sent. C. difficile PCR was negative. Pro-calcitonin is 0.18 likelihood of bacterial infection is low but not completely negative. Will continue the an tibiotics for now but will discontinue them with continued clinical improvement. Blood cultures negative to date. Off of pressor support for >48 hours. Blood pressure better now. # Acute renal failure on CKD: Started on CVVHD at time of admission. Left femoral hemodialysis catheter placed by Dr Obrien. Nephrology is consulted. Patient's baseline CKD is unclear. Was given 1 dose of 100 mg of IV Lasix 09/08. urine output which is still minimal. # AG metabolic acidosis: In the setting of sepsis and acute renal failure. ABG initially showing a pH of 7 at [facility] which improved to 7.3 at [facility].'s resolved with CVVHD. # Acute on chronic CHF: Decompensated.Fu echo. EF unknown at this point, echo read pending. Nephrology using CVVHD to remove some fluid which should improve his clinical status. # Anemia: got 1u PRBC with dialysis 09/09. Hgb has been relatively stable. # Elevated troponin: This is likely demand ischemia it went up to 0.28 and then leveled off # hypoxia: Likely secondary to fluid overload, should improve his fluid was taken off. Oxygen therapy orders titrate to >90%. Only requiring 1/2L o2 now. # Supratherapeutic INR: Was found to have separate therapeutic INR close to 10 at [facility] given 1.5 bags of FFP which brought it down to 3.87. We'll continue to monitor and hold off on warfarin for now. # Hematuria: Likely in the setting of supratherapeutic INR. Continue to monitor. No more hematuria apparent. # Atrial fibrillation: Rate is currently controlled. Resumed bb metoprolol 12.5 bid 09/09. Warfarin resumed 09/09. # BPH: Naidu inserted can hold Flomax for now. # Prostate cancer: Continue to monitor outpatient. # DVT prophylaxis: SCDs only and then warfarin once therapeutic range. JUAN FRANCISCO Ozuna Hospitalist Dahlia GLASS, I+O VSDahlia I+O Laboratory Tests 09/08/20 10:42 09/08/20 16:36 09/08/20 23:00 09/09/20 05:08 09/09/20 05:09 Vital Signs Date Time Temp Pulse Resp B/P (MAP) Pulse Ox O2 Delivery O2 Flow Rate FiO2 09/09/20 08:00 98.5 97 16 101/58 (72) 98 Nasal Cannula 0.5 I&O- Last 24 Hours up to 6 AM 09/09/20 06:00 Intake Total 888 ml Output Total 1558 ml Balance -670 ml VÍCTOR OZUNA MD 30, 2021 10:48
[2020-09-09] MEDS: METOPROLOL TART 12.5 MG PER 1/2 TAB PO SCH ×2 (11:22→21:01)
[2020-09-09 11:50] LABS: BASO % 0.2 % (0.0-1.0); EOS % 0.5 % (0.0-3.0); HEMATOCRIT 24.2 % (42.0-52.0); HEMOGLOBIN 8.2 g/dl (13.5-17.5); LYMPH # 0.4 10^3/uL (1.5-5.0); MEAN CORPUSCULAR HEMOGLOBIN 31.8 pg (27.0-33.0); MEAN CORPUSCULAR HGB CONC 33.9 g/dl (32.0-36.5); MEAN CORPUSCULAR VOLUME 93.8 fl (80.0-96.0); MONO # 0.7 10^3/uL (0.0-0.8); MONO % 11.2 % (0.0-5.0); NEUTROPHILS # 5.1 10^3/uL (1.5-8.5); NEUTROPHILS % 80.6 % (36.0-66.0); PLATELET COUNT, AUTOMATED 112 10^3/uL (150-450); RED BLOOD COUNT 2.58 10^6/uL (4.30-6.10); WHITE BLOOD COUNT 6.3 10^3/uL (4.0-10.0)
[2020-09-09 12:22] LABS: CALCIUM LEVEL 9.3 MG/DL (8.8-10.2); CREATININE FOR GFR 1.28 MG/DL (0.70-1.30); GLOMERULAR FILTRATION RATE 57.4 (>35); MAGNESIUM LEVEL 2.5 MG/DL (1.8-2.4); PHOSPHORUS LEVEL 3.4 MG/DL (2.5-4.9); POTASSIUM SERUM 4.5 MEQ/L (3.5-5.1)
[2020-09-09] MEDS: WARFARIN SOD 2MG TAB PO SCH (16:56)
[2020-09-09] MEDS ORDERED: ANALGESIC BALM CRM 120 GM TOP PRN (19:15)
[2020-09-09] MEDS: FINASTERIDE 5 MG TAB PO SCH (21:01)
[2020-09-09] MEDS: ASPIRIN 81 MG ENTERIC TAB PO SCH (21:01)
[2020-09-09] MEDS: FOLIC ACID 1 MG TAB PO SCH (21:01)
--- NOTE | 2020-09-09 21:25 | IPN ---
NEPHROLOGY PROGRESS NOTE DATE: 09/09/2020 SUBJECTIVE: The patient was seen and examined at the bedside today morning in the ICU. The patient was awake in the ICU, was able to follow commands. He continues to be on CVVHDF. He was given IV Lasix yesterday because of Oliguria. He remains Oliguric at this time. He is not requiring any pressors. CVVP done today morning at the bedside was around 15. OBJECTIVE: VITAL SIGNS: Temperature is 98.8 degrees Fahrenheit, blood pressure 107/59, pulse is 106, respiratory rate of 20, saturating 99% on nasal cannula at one liter. INTAKE AND OUTPUT: Urine output recorded as 288 mL yesterday; 127 mL so far today since overnight. Ultrafiltration with CVVHD is 2.2 liters. Weight in the bed scale is 81.3 kg. PHYSICAL EXAMINATION: GENERAL APPEARANCE: The patient is awake, alert, oriented x2, laying in bed, getting CVVHDF. HEAD AND NECK: Extraocular muscles intact. Pupils are equally round and reactive to light. Mucous membranes are moist. Neck is supple. He has a right IJ triple lumen catheter. CARDIOVASCULAR: Tachycardia. EXTREMITIES: No edema of the bilateral lower extremities. RESPIRATORY: Chest is clear to auscultation bilaterally. Bilaterally currently no rales or rhonchi. ABDOMEN: Soft, positive bowel sounds, nontender. GENITOURINARY: He has an indwelling Naidu catheter. He has a left groin dialysis catheter which is being used for dialysis at this time. MUSCULOSKELETAL: No clubbing, no cyanosis. Pulses are 2+. SPECIAL EDUCATION SUPERINTENDENT: No focal deficits. Power is 5/5 in bilateral upper extremities. LAB REVIEW: CBC showed a white blood cell count of 6.3, hemoglobin 8.2, platelet count 112. INR is 1.4. BMP today morning showed sodium 140, potassium 4, chloride 104, bicarbonate 26, BUN 12, creatinine is 1.2. Calcium is 8.8, phosphorous is 2.1. Magnesium is 2.3. AST 65, ALT 25, alkaline phosphatase is 106, creatinine kinase is 1,200. Microbiology: Urine cultures and blood cultures are negative so far. CURRENT INPATIENT MEDICATIONS: The patient's medications were all reviewed by myself. He is not requiring any pressors. He continues to be on Cipro and Flagyl. He is getting electrolytes according to CVVHDF protocol. I am going to stop his Gemfibrozil at this time because of renal failure. One unit of PRBC transfusion has been ordered. No other significant change in the medications today as compared with yesterday. I am going to hold his Crestor as well because of elevated CPK levels. ASSESSMENT AND PLAN: 1. Acute oliguric renal function the patient remains dependent on CVVHDF. However he is off the pressors now. I am going to stop is CVVHDF tonight and we will see if he responds to the diuretics. If his renal function does not recover, then intermittent hemodialysis will be done at the bedside. 2. Anemia the patient is going to get one unit of PRBC transfusion. 3. Chronic congestive heart failure - The patient's CVVP is 15 today. 50 mL of fluid is being removed for a MAP of above 75. Volume status is significantly better. 4. Hyperlipidemia The patient is in acute renal failure and he has elevated CPK levels. I have stopped the Fenofibrate and statins at this time. 5. Diarrhea it has resolved at this time. Stool panel is negative so far. Total critical care time spent in the management of this patient today morning in the ICU excluding all the procedures was 40 minutes.
[2020-09-09] MEDS: CIPROFLOXACIN 400 MG in IV 1 EA IV SCH (23:18)
[2020-09-10] VITALS (7 sets, daily range): BP systolic 103–132; BP diastolic 64–77
[2020-09-10] MEDS: ACETAMINOPHEN TAB 650MG DOSE (2X325MG) PO PRN ×3 (00:12→18:01)
[2020-09-10] MEDS: IPRATROPIUM 0.5MG/ALBUTEROL 2.5MG INH SOL UD 3ML (DUONEB) NEB SCH ×4 (02:00→20:00)
[2020-09-10] MEDS: ONDANSETRON 4MG/2ML VIAL IV PRN ×2 (05:20→21:43)
[2020-09-10] MEDS: metroNIDAZOLE 500 MG in IV 1 EA IV SCH (05:20)
[2020-09-10 05:53] LABS: BASO % 0.2 % (0.0-1.0); EOS # 0.2 10^3/uL (0.0-0.5); EOS % 3.7 % (0.0-3.0); HEMATOCRIT 26.3 % (42.0-52.0); HEMOGLOBIN 8.7 g/dl (13.5-17.5); LYMPH # 0.5 10^3/uL (1.5-5.0); LYMPH % 9.7 % (24.0-44.0); MEAN CORPUSCULAR HEMOGLOBIN 31.3 pg (27.0-33.0); MEAN CORPUSCULAR HGB CONC 33.1 g/dl (32.0-36.5); MEAN CORPUSCULAR VOLUME 94.6 fl (80.0-96.0); MONO # 0.7 10^3/uL (0.0-0.8); MONO % 13.1 % (0.0-5.0); NEUTROPHILS # 3.8 10^3/uL (1.5-8.5); NEUTROPHILS % 72.9 % (36.0-66.0); PLATELET COUNT, AUTOMATED 114 10^3/uL (150-450); RED BLOOD COUNT 2.78 10^6/uL (4.30-6.10); WHITE BLOOD COUNT 5.2 10^3/uL (4.0-10.0)
[2020-09-10 06:02] LABS: INR 1.31; PROTHROMBIN TIME 16.6 SECONDS (12.5-14.3)
[2020-09-10 06:40] LABS: ALBUMIN 2.8 GM/DL (3.2-5.2); BILIRUBIN,TOTAL 0.4 MG/DL (0.2-1.0); CALCIUM LEVEL 9.3 MG/DL (8.8-10.2); CREATININE FOR GFR 1.94 MG/DL (0.70-1.30); GLOMERULAR FILTRATION RATE 35.5 (>35); PHOSPHORUS LEVEL 3.7 MG/DL (2.5-4.9); POTASSIUM SERUM 4.7 MEQ/L (3.5-5.1); TOTAL PROTEIN 5.7 GM/DL (6.4-8.2)
[2020-09-10] MEDS: LACTOBACILLUS ACIDOPHILUS CAP (BACID) PO SCH ×2 (09:01→20:36)
[2020-09-10] MEDS: PANTOPRAZOLE 40MG VIAL (C9113 PER 1) IV SCH ×2 (09:02→20:36)
[2020-09-10] MEDS: NYSTATIN 100,000 UNITS/GM TOPICAL PWD 15 GM TOP SCH ×2 (09:02→20:53)
[2020-09-10] MEDS: METOPROLOL TART 12.5 MG PER 1/2 TAB PO SCH ×2 (09:02→20:51)
[2020-09-10] MEDS: ERYTHROMYCIN OPHTH OINT OU SCH ×3 (09:02→20:47)
--- NOTE | 2020-09-10 09:52 | IPNPDOC ---
Text Note Date of Service The patient was seen on 09/10/20. NOTE Subjective: Patient seen and examined this morning at bedside. Patient was downgraded last night from the ICU to PCU. He says he is doing well this morning still no diarrhea. Answering my questions appropriately. There is no acute overnight events. Objective: Constitutional: Awake and alert, in no apparent distress, weak elderly and frail. He is hard of hearing. ENT: Sclera are clear. Mucosa is moist. Respiratory: Lungs faint wheezing bilaterally. No respiratory distress. No use of accessory muscles. 1 L of oxygen Cardiovascular: Irregular sounding rhythm with a 2/6 systolic murmur A. fib seen on monitor heart rate is 90s at bedside Gastrointestinal: Abdomen is soft, non distended, non tender. Naidu catheter in place. Musculoskeletal: No edema. No joint deformities. RUE 5/5, LUE 5/5, BLE 5/5 Neurologic: No focal neurological deficit. Mental Status: A&O x3, normal affect Skin: Some bruising on skin ecchymoses. Left femoral vein dialysis catheter and right IJ catheter Assessment/plan: 80 year old male with a past medical history significant for COPD, CAD, PVD, CKD, and Prostate Cance who presented to [facility] as a transfer from [facility] for higher level of care. On presentation patient was hypotensive requiring pressors. He was in acute renal failure, acute decompensated CHF, and metabolic acidosis. Nephrology was consulted for CVVHD. Patient admitted to the ICU for management and was downgraded overnight on September 10 to PCU. He was taken off of continuous dialysis. Given his poor urine output he'll likely need scheduled dialysis outpatient. # Acute renal failure on CKD: Started on CVVHD at time of admission taken off on the evening of September 09. Left femoral hemodialysis catheter placed by Dr Obrien. Nephrology is consulted. Patient's baseline CKD is unclear. Was given 1 dose of 100 mg of IV Lasix 09/08. urine output which is still minimal. Nephrology will continue to monitor his urine output he may need longer term scheduled dialysis. If that is the case we will ask early next week for IR to place a permacath. # Shock: Might have been hypovolemic due to diarrhea. Now resolved. Out of the ICU. GI panel negative so far I will stop his empiric antibiotics now as his diarrhea has resolved and he has no signs or symptoms of infection. Pro- calcitonin is 0.18 likelihood of bacterial infection is low. Blood cultures negative to date. # AG metabolic acidosis: In the setting of sepsis and acute renal failure. ABG initially showing a pH of 7 at [facility] which improved to 7.3 at [facility]s resolved with CVVHD. Now resolved. # Acute on chronic CHF: Decompensated initially.Fu echo. EF unknown at this point, echo read pending. Nephrology using CVVHD has improved his clinical status appears euvolemic now. # Anemia: got 1u PRBC with dialysis 09/09. Hgb has been relatively stable. # Elevated troponin: This is likely demand ischemia it went up to 0.28 and then leveled off # hypoxia: Likely secondary to fluid overload, should improve his fluid was taken off. Oxygen therapy orders titrate to >90%. Only requiring 1/2L o2 now. Goal today to titrate patient off oxygen. # Supratherapeutic INR: Was found to have separate therapeutic INR close to 10 at [facility] given 1.5 bags of FFP which brought it down to 3.87. Restarted patient's warfarin September 09 INR down to 1.4. Target INR 2-3. # Hematuria: Likely in the setting of supratherapeutic INR. Continue to monitor. No more hematuria apparent. # Atrial fibrillation: Rate is currently controlled. Resumed bb metoprolol 12.5 bid 09/09. Warfarin resumed 09/09. # BPH: Naidu inserted can hold Flomax for now. # Prostate cancer: Continue to monitor outpatient. # DVT prophylaxis: SCDs only and warfarin (currently subtherapeutic will bridge with prophylactic heparin for now.) [facility] Dahlia GLASS I+O Dahlia GLASS I+O Laboratory Tests 09/09/20 11:34 09/10/20 05:29 Vital Signs Date Time Temp Pulse Resp B/P (MAP) Pulse Ox O2 Delivery O2 Flow Rate FiO2 09/10/20 04:00 97.1 106 20 109/77 (88) 95 Nasal Cannula 1.0 I&O- Last 24 Hours up to 6 AM 09/10/20 06:00 Intake Total 2068 ml Output Total 2020 ml Balance 48 ml VÍCTOR ROQUE MD Sep 10, 2020 07:54
[2020-09-10] MEDS ORDERED: FUROSEMIDE 100MG/10ML VIAL (J1940) IV ONE (12:30)
[2020-09-10] MEDS: HEPARIN SOD (PORCINE) 5000UNITS/ML 1ML VIAL/SYRINGE SQ SCH ×2 (12:43→20:37)
[2020-09-10] MEDS: WARFARIN SOD 2MG TAB PO SCH (18:00)
--- NOTE | 2020-09-10 18:49 | IPN ---
NEPHROLOGY PROGRESS NOTE DATE: 09/10/2020 SUBJECTIVE: The patient was seen and examined at the bedside today morning. He was down graded out of the ICU yesterday. CVVHDF was stopped last night. He continues to be oliguric at this time, however, he is afebrile and hemodynamically stable right now. He tried to eat some breakfast today in the morning. OBJECTIVE: VITAL SIGNS: Temperature 98 degrees Fahrenheit, blood pressure 132/70, pulse 95, respiratory rate 20, saturating 100% on nasal cannula at 1 liter. INTAKE AND OUTPUT: Urine output recorded since overnight is 115 mL. Weight in the bed scale is 82 kg. PHYSICAL EXAMINATION: GENERAL: Patient is awake, alert and oriented x2, lying in bed, in no apparent distress. HEAD/NECK: Extraocular muscles intact. Pupils equally round and reactive to light. Mucous membranes are moist. Neck is supple. Mildly elevated JVD. A right-sided triple lumen catheter was noted. CARDIOVASCULAR: S1, S2, regular rate. Trace edema of bilateral lower extremities. RESPIRATORY: Mildly decreased breath sounds at the bases; right is worse than left. ABDOMEN: Soft, positive bowel sounds, nontender, no organomegaly. GENITOURINARY: He has an indwelling Naidu catheter. MUSCULOSKELETAL: No clubbing or cyanosis. Pulses are 2+. He has a catheter in the left groin. SENIOR MANUFACTURING ENGINEER: No focal deficits. Power is 5/5 in all extremities. LAB REVIEW: CBC showed WBC 5.2, hemoglobin 8.7, platelets 114,000. BMP showed sodium 140, potassium 4.7, chloride 105, bicarb 27, BUN 19, creatinine 1.9. Phosphorus 3.7. CURRENT INPATIENT MEDICATIONS: Patient's medications were all reviewed by myself. I.V. Cipro and Flagyl have been stopped. I gave him a dose of Lasix 60 mg I.V. times one dose. No other significant change in the medications today as compared with yesterday. ASSESSMENT AND PLAN: 1. Acute oliguric renal failure: Patient remains oliguric. I gave him a dose of I.V. Lasix today. If there is no improvement in the urine output, patient might need hemodialysis tomorrow morning. 2. Anemia: Patient got 1 unit of PRBC transfusion yesterday. Hemoglobin level has improved to 8.7 now. He will be started on Aranesp. 3. Congestive heart failure: CVP was 15 yesterday. He is oliguric. I have given him a dose of Lasix 60 mg I.V. times one dose and if he does not respond, further fluid removal will be done with hemodialysis. 4. Atrial fibrillation: Heart rate is controlled with Metoprolol and he is currently on Warfarin.
[2020-09-10] MEDS: FINASTERIDE 5 MG TAB PO SCH (20:36)
[2020-09-10] MEDS: FOLIC ACID 1 MG TAB PO SCH (20:36)
[2020-09-10] MEDS: ASPIRIN 81 MG ENTERIC TAB PO SCH (20:36)
[2020-09-11] VITALS: BP 110/66
[2020-09-11] MEDS: ACETAMINOPHEN TAB 650MG DOSE (2X325MG) PO PRN ×4 (01:24→23:43)
[2020-09-11] MEDS: IPRATROPIUM 0.5MG/ALBUTEROL 2.5MG INH SOL UD 3ML (DUONEB) NEB SCH ×4 (02:00→19:45)
[2020-09-11 04:00] VITALS: BP 128/75
[2020-09-11 05:43] LABS: BASO % 0.3 % (0.0-1.0); EOS # 0.3 10^3/uL (0.0-0.5); EOS % 5.7 % (0.0-3.0); HEMATOCRIT 26.4 % (42.0-52.0); HEMOGLOBIN 8.5 g/dl (13.5-17.5); LYMPH # 0.9 10^3/uL (1.5-5.0); LYMPH % 15.5 % (24.0-44.0); MEAN CORPUSCULAR HEMOGLOBIN 31.1 pg (27.0-33.0); MEAN CORPUSCULAR HGB CONC 32.2 g/dl (32.0-36.5); MEAN CORPUSCULAR VOLUME 96.7 fl (80.0-96.0); MONO # 0.6 10^3/uL (0.0-0.8); MONO % 9.7 % (0.0-5.0); NEUTROPHILS # 3.9 10^3/uL (1.5-8.5); NEUTROPHILS % 68.3 % (36.0-66.0); PLATELET COUNT, AUTOMATED 142 10^3/uL (150-450); RED BLOOD COUNT 2.73 10^6/uL (4.30-6.10); WHITE BLOOD COUNT 5.8 10^3/uL (4.0-10.0)
[2020-09-11 05:50] LABS: INR 1.24; PROTHROMBIN TIME 15.9 SECONDS (12.5-14.3)
[2020-09-11 06:20] LABS: ALBUMIN 2.7 GM/DL (3.2-5.2); BILIRUBIN,TOTAL 0.5 MG/DL (0.2-1.0); CALCIUM LEVEL 9.4 MG/DL (8.8-10.2); CREATININE FOR GFR 2.77 MG/DL (0.70-1.30); GLOMERULAR FILTRATION RATE 23.6 (>35); PHOSPHORUS LEVEL 4.5 MG/DL (2.5-4.9); TOTAL PROTEIN 5.4 GM/DL (6.4-8.2)
--- NOTE | 2020-09-11 07:44 | IPNPDOC ---
Text Note Date of Service The patient was seen on 09/11/20. NOTE Subjective: Patient seen and examined this morning at bedside. States he is doing much better this morning he been able to eat his diet. Feels a little stronger. Denies any more diarrhea There is no acute overnight events. Objective: Constitutional: Awake and alert, in no apparent distress, weak elderly and frail. He is hard of hearing. ENT: Sclera are clear. Mucosa is moist. Respiratory: Lungs CTA bilaterally. No respiratory distress. No use of accessory muscles. On room air now Cardiovascular: Irregular sounding rhythm with a 2/6 systolic murmur A. fib seen on monitor heart rate is 90s at bedside Gastrointestinal: Abdomen is soft, non distended, non tender. Naidu catheter in place. Musculoskeletal: No edema. No joint deformities. RUE 5/5, LUE 5/5, BLE 5/5 Neurologic: No focal neurological deficit. Mental Status: A&O x3, normal affect Skin: Some bruising on skin ecchymoses. Left femoral vein dialysis catheter and right IJ catheter Assessment/plan: 80 year old male with a past medical history significant for COPD, CAD, PVD, CKD, and Prostate Cance who presented to [facility] as a transfer from [facility] for higher level of care. On presentation patient was hypotensive requiring pressors. He was in acute renal failure, acute decompensated CHF, and metabolic acidosis. Nephrology was consulted for CVVHD. Patient admitted to the ICU for management and was downgraded overnight on September 10 to PCU. He was taken off of continuous dialysis. Given his poor urine output he'll need scheduled dialysis outpatient. # Acute renal failure on CKD: Started on CVVHD at time of admission taken off on the evening of September 09. Left femoral hemodialysis catheter placed by Dr Obrien. Nephrology is consulted. Patient's baseline CKD is unclear. Was given 1 dose of 100 mg of IV Lasix 09/08. urine output which is still minimal. Nephrology will continue to monitor his urine output he may need longer term scheduled dialysis. If that is the case we will ask early next week for IR to place a permacath. # Shock: Might have been hypovolemic due to diarrhea. Now resolved. Out of the ICU. GI panel pending, I will stop his empiric antibiotics now as his diarrhea has resolved and he has no signs or symptoms of infection. Pro-calcitonin is 0.18 likelihood of bacterial infection is low. Blood cultures negative to date. # AG metabolic acidosis: In the setting of sepsis and acute renal failure. ABG initially showing a pH of 7 at [facility] which improved to 7.3 at [facility]s resolved with CVVHD. Now resolved. # Acute on chronic CHF: Decompensated initially.Fu echo. EF unknown at this point, echo read pending. Nephrology using CVVHD has improved his clinical stat us appears euvolemic now. # Anemia: got 1u PRBC with dialysis 09/09. Hgb has been relatively stable. # Elevated troponin: This is likely demand ischemia it went up to 0.28 and then leveled off # hypoxia: Likely secondary to fluid overload, improved as fluid was taken off. Oxygen therapy orders titrate to >90%. Today is now on room air. # Supratherapeutic INR: Was found to have separate therapeutic INR close to 10 at [facility] given 1.5 bags of FFP which brought it down to 3.87. Restarted patient's warfarin September 09 INR down to 1.4. Target INR 2-3. # Hematuria: Likely in the setting of supratherapeutic INR. Continue to monitor. No more hematuria apparent. # Atrial fibrillation: Rate is currently controlled. Resumed bb metoprolol 12.5 bid 09/09. Warfarin resumed 09/09. # BPH: Naidu inserted can hold Flomax for now. # Prostate cancer: Continue to monitor outpatient. # DVT prophylaxis: SCDs only and warfarin (currently subtherapeutic will bridge with prophylactic heparin for now.) Dispo: PT/OT might need omar. Needs OP HD chair setup. [facility] Dahlia GLASS I+O Dahlia GLASS I+O Laboratory Tests 09/11/20 05:24 Vital Signs Date Time Temp Pulse Resp B/P (MAP) Pulse Ox O2 Delivery O2 Flow Rate FiO2 09/11/20 04:00 97.6 106 18 128/75 (92) 96 Room Air 09/10/20 15:45 1.0 I&O- Last 24 Hours up to 6 AM 09/11/20 05:59 Intake Total 900 ml Output Total 800 ml Balance 100 ml VÍCTOR ROQUE MD Sep 11, 2020 07:44
[2020-09-11 08:01] VITALS: BP 116/64
[2020-09-11] MEDS: PANTOPRAZOLE 40MG VIAL (C9113 PER 1) IV SCH ×2 (08:52→20:04)
[2020-09-11] MEDS: LACTOBACILLUS ACIDOPHILUS CAP (BACID) PO SCH ×2 (08:52→20:05)
[2020-09-11] MEDS: METOPROLOL TART 12.5 MG PER 1/2 TAB PO SCH ×2 (08:52→20:05)
[2020-09-11] MEDS: HEPARIN SOD (PORCINE) 5000UNITS/ML 1ML VIAL/SYRINGE SQ SCH ×2 (08:53→20:06)
[2020-09-11] MEDS: NYSTATIN 100,000 UNITS/GM TOPICAL PWD 15 GM TOP SCH ×2 (08:55→20:06)
[2020-09-11] MEDS: ERYTHROMYCIN OPHTH OINT OU SCH ×3 (08:56→20:06)
--- NOTE | 2020-09-11 09:57 | ECHO ---
DATE OF PROCEDURE: 09/07/2020 Age: 80 Gender: Male Height: 170 cm Weight: 82 kg REFERRING PHYSICIAN: Carly Omalley MD INDICATION: Dyspnea. MEASUREMENTS: IVS 1.0 cm LV 3.0 cm LVPW 1.1 cm LA 4.2 cm Aorta 2.5 cm RV 3.7 cm IVC 2.1 cm FINDINGS: This study is of fair technical quality. Underlying atrial fibrillation with mildly tachycardic response. QRS complex is widened as well. The left ventricle is of normal size. Overall, there is normal LV systolic function, I estimate the EF around 60% to 65%. No segmental wall motion abnormalities were appreciated, but could have been easily missed considering technical quality of the study. The right ventricle also appears normal size and systolic function. Both atria are severely enlarged. 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 It was poorly visualized and I cannot comment on its structure. There are degenerative abnormalities of the mitral valve with thickening of the mitral leaflets and by 2D imaging, I assume at least mild mitral stenosis. Tricuspid and pulmonic valves appear normal. No pericardial effusion is noted. Inferior vena cava is dilated suggestive of elevated central venous pressure. The aortic root is normal. The aortic arch and abdominal aorta were not well seen. Doppler interrogation of the aortic bioprosthesis reveals no insufficiency and a mean gradient of 9 mmHg, which corresponds to normal values. There is trace mitral insufficiency and trivial mitral stenosis. There is approximately moderate tricuspid insufficiency. Calculated pulmonary artery pressure is at least in the 50s corresponding to moderate pulmonary hypertension or higher. Evaluation of diastolic function is inconclusive due to underlying atrial fibrillation. CONCLUSIONS: 1. Study is of fair technical quality, underlying atrial fibrillation with wide QRS complex and mildly tachycardic rate. 2. Normal LV size with overall preserved LV systolic function. 3. 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 4. Degenerative abnormalities of the mitral valve resulting in trivial insufficiency and trivial stenosis. 5. Suggestive of elevated central venous pressure and at least moderate pulmonary hypertension. 6. Moderate tricuspid insufficiency. MTDD
[2020-09-11 12:00] VITALS: BP 116/65
[2020-09-11] MEDS ORDERED: FUROSEMIDE 100MG/10ML VIAL (J1940) IV ONE (12:15)
[2020-09-11] MEDS ORDERED: DARBEPOETIN 200MCG/0.4ML *NON-DIALYSIS* SYRINGE (J0881 PER 1MCG) SC SCH (12:30)
--- NOTE | 2020-09-11 13:12 | IPN ---
PROGRESS NOTE DATE: 09/11/2020 SUBJECTIVE: The patient was seen and examined at the bedside today morning. He was actually sitting up on the sofa. He reports that he is feeling much better today. He was given a dose of Lasix yesterday. He did make about 700 ml of urine with that. Labs were all reviewed. Creatinine still keeps rising from yesterday. OBJECTIVE: VITAL SIGNS: Temperature is 98.8 degrees Fahrenheit, blood pressure is 116/64, pulse is 105, respiratory rate of 20, saturating 94% on room air. INTAKE AND OUTPUT: Urine output is recorded as 750 ml yesterday, 400 ml so far today since overnight. Weight on the bed scale is 83.5 kg. PHYSICAL EXAMINATION: GENERAL: Patient is awake, alert and oriented x3 sitting up on the sofa in no apparent distress. HEAD AND NECK EXAM: Extraocular muscles are intact. Pupils are equally round and reactive to light. Mucous membranes are moist. Neck is supple. He has a right IJ triple lumen catheter. CARDIOVASCULAR: S1 and S2, regular rate, 1+ edema on the bilateral lower extremities and in the thighs. RESPIRATORY: Mildly decreased breath sounds at the bases, otherwise no active rales or rhonchi. ABDOMEN: Soft, positive bowel sounds, nontender. No organomegaly. GENITOURINARY: He has an indwelling Naidu catheter. MUSCULOSKELETAL: He has a left groin catheter for dialysis. Otherwise, no clubbing or cyanosis. RESEARCH INSTRUMENTATION TECHNICIAN: No focal deficit. Power is 5/5 in all extremities. LABORATORY DATA: CBC showed a WBC of 5.8, hemoglobin of 8.5, platelets are 142,000. BMP showed a sodium of 139, potassium 4, chloride 105, bicarbonate 28, BUN 30, creatinine is 2.7, it was 1.9 yesterday. Phosphorus was 4.5. AST and ALT, alkaline phosphatase, LDH and CPK are within the acceptable range. CURRENT INPATIENT MEDICATIONS: The patient's medications were all reviewed by myself. There is no significant change in the medications today as compared with yesterday. ASSESSMENT AND PLAN: 1. Acute renal failure. Patient is non-oliguric at this time. He is responding to the IV diuretics. No urgent need of hemodialysis. He will be given another dose of IV Lasix today. 2. Anemia, hemoglobin level is stable. Transfuse p.r.n. for a hemoglobin below 8. I am going to give him a dose of Aranesp as well. 3. Congestive heart failure. The patient was given Lasix 60 mg IV yesterday, another dose of Lasix will be given today. 4. Atrial fibrillation, heart rate is controlled. Continue metoprolol and warfarin.
[2020-09-11 16:00] VITALS: BP 103/62
[2020-09-11] MEDS: WARFARIN SOD 2MG TAB PO SCH (16:36)
[2020-09-11 20:00] VITALS: BP 105/61
[2020-09-11] MEDS: FINASTERIDE 5 MG TAB PO SCH (20:06)
[2020-09-11] MEDS: ASPIRIN 81 MG ENTERIC TAB PO SCH (20:06)
[2020-09-11] MEDS: FOLIC ACID 1 MG TAB PO SCH (20:06)
[2020-09-12] VITALS (8 sets, daily range): BP systolic 89–115; BP diastolic 56–76
[2020-09-12] MEDS: IPRATROPIUM 0.5MG/ALBUTEROL 2.5MG INH SOL UD 3ML (DUONEB) NEB SCH ×4 (01:53→20:20)
[2020-09-12 06:21] LABS: BASO % 0.2 % (0.0-1.0); EOS # 0.4 10^3/uL (0.0-0.5); EOS % 5.9 % (0.0-3.0); HEMATOCRIT 27.7 % (42.0-52.0); LYMPH % 15.8 % (24.0-44.0); MEAN CORPUSCULAR HEMOGLOBIN 31.8 pg (27.0-33.0); MEAN CORPUSCULAR HGB CONC 32.5 g/dl (32.0-36.5); MEAN CORPUSCULAR VOLUME 97.9 fl (80.0-96.0); MONO # 0.8 10^3/uL (0.0-0.8); MONO % 12.3 % (0.0-5.0); NEUTROPHILS # 4.1 10^3/uL (1.5-8.5); NEUTROPHILS % 65.2 % (36.0-66.0); PLATELET COUNT, AUTOMATED 143 10^3/uL (150-450); RED BLOOD COUNT 2.83 10^6/uL (4.30-6.10); WHITE BLOOD COUNT 6.3 10^3/uL (4.0-10.0)
[2020-09-12 06:26] LABS: INR 1.15
[2020-09-12 06:50] LABS: ALBUMIN 2.7 GM/DL (3.2-5.2); BILIRUBIN,TOTAL 0.6 MG/DL (0.2-1.0); CALCIUM LEVEL 9.1 MG/DL (8.8-10.2); CREATININE FOR GFR 3.08 MG/DL (0.70-1.30); GLOMERULAR FILTRATION RATE 20.8 (>35); PHOSPHORUS LEVEL 3.7 MG/DL (2.5-4.9); POTASSIUM SERUM 3.8 MEQ/L (3.5-5.1); TOTAL PROTEIN 5.3 GM/DL (6.4-8.2)
[2020-09-12] MEDS: METOPROLOL TART 12.5 MG PER 1/2 TAB PO SCH ×2 (08:39→20:36)
[2020-09-12] MEDS: ERYTHROMYCIN OPHTH OINT OU SCH ×3 (09:55→20:37)
[2020-09-12] MEDS: PANTOPRAZOLE 40MG VIAL (C9113 PER 1) IV SCH ×2 (09:55→20:35)
[2020-09-12] MEDS: LACTOBACILLUS ACIDOPHILUS CAP (BACID) PO SCH ×2 (09:55→20:35)
[2020-09-12] MEDS: NYSTATIN 100,000 UNITS/GM TOPICAL PWD 15 GM TOP SCH ×2 (09:55→20:37)
[2020-09-12] MEDS: HEPARIN SOD (PORCINE) 5000UNITS/ML 1ML VIAL/SYRINGE SQ SCH (09:55)
[2020-09-12] MEDS ORDERED: FUROSEMIDE 100MG/10ML VIAL (J1940) IV ONE ×2 (12:15→21:30)
[2020-09-12] MEDS ORDERED: WARFARIN SOD 3MG TAB PO SCH (17:00)
--- NOTE | 2020-09-12 18:30 | IPNPDOC ---
Text Note Date of Service The patient was seen on 09/12/20. NOTE Subjective: No any acute events overnight. Oliguria resolved Objective: GENERAL APPEARANCE: NAD HEENT: no scleral icterus, no JVD, EOMI CARDIOVASCULAR: S1S2 LUNGS: Irregularly irregular ABDOMEN: soft & not tender w palpitation MUSCULOSKELETAL: no cyanosis, no swelling INTEGUMENT: no generalized pallor NEUROLOGICAL: cranial nerve function from 2-12 intact intact, follows commands, speech not dysarthric Assessment/plan: 80 year old male with a past medical history significant for COPD, CAD, PVD, CKD, and Prostate Cancer who presented to [facility] as a transfer from [facility] for higher level of care. On presentation patient was hypotensive requiring pressors. He was in acute renal failure, acute decompensated CHF, and metabolic acidosis. Nephrology was consulted for CVVHD. Patient admitted to the ICU for management and was downgraded overnight on September 10 to PCU. He was taken off of continuous dialysis. Given his poor urine output he'll need scheduled dialysis outpatient. Acute renal failure on CKD Patient non-oliguric, continue IV diuretics, no needs for dialysis for now Nephrology team follows him Anemia Secondary to anemia of chronic diseases secondary to CKD Hemoglobin stable c/w Aranesp Acute diastolic CHF Continue Lasix Echo pending I's and O's Atrial fibrillation Heart rate under control Continue anticoagulation Metabolic acidosis Secondary to uremia Resolved Elevated troponin Most likely secondary to demand ischemia Cardiac workup negative Troponin trended down Subtherapeutic INR Dose of warfarin increased to 5 mg daily at bedtime Hematuria Most likely secondary to elevated INR Resolved Patient will need follow-up with urologist in the outpatient settings Dahlia GLASS, I+O VSDahlia I+O Laboratory Tests 09/12/20 06:05 Vital Signs Date Time Temp Pulse Resp B/P (MAP) Pulse Ox O2 Delivery O2 Flow Rate FiO2 09/12/20 17:00 98.8 103 18 115/56 (75) 92 Room Air 09/10/20 15:45 1.0 I&O- Last 24 Hours up to 6 AM 09/12/20 06:00 Intake Total 420 ml Output Total 790 ml Balance -370 ml NARINDER ELDER DO Sep 12, 2020 18:30
[2020-09-12] MEDS: ACETAMINOPHEN TAB 650MG DOSE (2X325MG) PO PRN (18:44)
[2020-09-12] MEDS ORDERED: WARFARIN SOD 2MG TAB PO ONE (19:00)
[2020-09-12] MEDS: FOLIC ACID 1 MG TAB PO SCH (20:35)
[2020-09-12] MEDS: ASPIRIN 81 MG ENTERIC TAB PO SCH (20:35)
[2020-09-12] MEDS: FINASTERIDE 5 MG TAB PO SCH (20:35)
--- NOTE | 2020-09-12 22:51 | IPN ---
NEPHROLOGY PROGRESS NOTE DATE: 09/12/2020 SUBJECTIVE: The patient was seen and examined at the bedside today morning. He was sitting up in the sofa when I saw him. He is afebrile, hemodynamically stable. However renal function is not improving. Creatinine continues to rise. He is responding to the IV diuretics and making more than one liter of urine daily. OBJECTIVE: VITAL SIGNS: Temperature is 98.3 degrees Fahrenheit, blood pressure 108/68, pulse is 97, respiratory rate of 18, saturating 97% on room air. INTAKE AND OUTPUT: Urine output recorded as 1,020 mL yesterday and 620 mL so far today since overnight. Weight in the bed scale is 78.2 kg. PHYSICAL EXAMINATION: GENERAL APPEARANCE: The patient is awake, alert, oriented x3, sitting up in the sofa in no apparent distress. HEAD AND NECK: Extraocular muscles intact. Pupils are equally round and reactive to light. Mucous membranes are moist. Neck is supple. RESPIRATORY: He has mild crepitations in the lungs at the bases. ABDOMEN: Soft, obese, positive bowel sounds. MUSCULOSKELETAL: Trace edema of the bilateral lower extremities. He has a double lumen catheter in the left groin.. 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 Power is 5/5 in all extremities. LAB REVIEW: CBC showed white blood cell count of 6.3, hemoglobin is 9, platelet count 143. BMP showed sodium of 140, potassium 3.8, chloride 106, bicarbonate 28, BUN 38, creatinine is 3. It was 2.7 yesterday. CURRENT INPATIENT MEDICATIONS: The patient's medications were all reviewed by myself. He was given a dose of Lasix 60 mg IV times one dose in the morning. No other significant change in the medications today as compared with yesterday. ASSESSMENT AND PLAN: 1. Acute renal failure - The patient is responding to the IV diuretics. Acid base and electrolytes are within the acceptable range. I am monitoring the patient daily for any need of hemodialysis. If creatinine still keeps on rising tomorrow the patient will be given a treatment of hemodialysis. 2. Anemia and renal failure - The patient was started on Aranesp. Hemoglobin level is stable and improving. 3. Congestive heart failure - The patient was given a dose of Lasix in the morning. He will be given another dose in the evening. 4. Atrial fibrillation heart rate is controlled with Metoprolol. He is anticoagulated with Warfarin. 5. Dialysis access if the patient ends up needing dialysis tomorrow, then I would get a tunneled dialysis catheter placed for him and left groin catheter will be removed.
[2020-09-13] VITALS: BP 104/58
[2020-09-13] MEDS: IPRATROPIUM 0.5MG/ALBUTEROL 2.5MG INH SOL UD 3ML (DUONEB) NEB SCH ×3 (02:00→15:14)
[2020-09-13 04:00] VITALS: BP 105/61
[2020-09-13 05:16] LABS: BASO % 0.5 % (0.0-1.0); EOS # 0.3 10^3/uL (0.0-0.5); EOS % 5.2 % (0.0-3.0); HEMATOCRIT 27.9 % (42.0-52.0); HEMOGLOBIN 8.8 g/dl (13.5-17.5); LYMPH % 15.5 % (24.0-44.0); MEAN CORPUSCULAR HGB CONC 31.5 g/dl (32.0-36.5); MEAN CORPUSCULAR VOLUME 98.2 fl (80.0-96.0); MONO # 0.9 10^3/uL (0.0-0.8); MONO % 13.1 % (0.0-5.0); NEUTROPHILS # 4.3 10^3/uL (1.5-8.5); NEUTROPHILS % 65.2 % (36.0-66.0); PLATELET COUNT, AUTOMATED 163 10^3/uL (150-450); RED BLOOD COUNT 2.84 10^6/uL (4.30-6.10); WHITE BLOOD COUNT 6.6 10^3/uL (4.0-10.0)
[2020-09-13 05:32] LABS: INR 1.1; PROTHROMBIN TIME 14.4 SECONDS (12.5-14.3)
[2020-09-13 06:31] LABS: CALCIUM LEVEL 9.1 MG/DL (8.8-10.2); CREATININE FOR GFR 3.12 MG/DL (0.70-1.30); GLOMERULAR FILTRATION RATE 20.5 (>35); POTASSIUM SERUM 3.6 MEQ/L (3.5-5.1)
[2020-09-13 08:00] VITALS: BP 113/66
[2020-09-13] MEDS: NYSTATIN 100,000 UNITS/GM TOPICAL PWD 15 GM TOP SCH (09:00)
[2020-09-13] MEDS: ERYTHROMYCIN OPHTH OINT OU SCH (09:00)
[2020-09-13] MEDS: METOPROLOL TART 12.5 MG PER 1/2 TAB PO SCH (09:43)
[2020-09-13] MEDS: LACTOBACILLUS ACIDOPHILUS CAP (BACID) PO SCH (09:43)
[2020-09-13] MEDS: PANTOPRAZOLE 40MG VIAL (C9113 PER 1) IV SCH (09:44)
[2020-09-13] MEDS ORDERED: FUROSEMIDE 100MG/10ML VIAL (J1940) IV ONE (12:15)
--- NOTE | 2020-09-13 14:23 | DS.PDOC ---
Discharge Summary General Date of Admission Sep 06, 2020 at 19:40 Date of Discharge 09/13/20 Discharge Summary PROCEDURES PERFORMED DURING STAY: [None]. ADMITTING DIAGNOSES: 1. . DISCHARGE DIAGNOSES: 1. . COMPLICATIONS/CHIEF COMPLAINT: Hypovolemic Shock. HISTORY OF PRESENT ILLNESS: . HOSPITAL COURSE: . DISCHARGE MEDICATIONS: Please see below. ALLERGIES: Please see below. PHYSICAL EXAMINATION ON DISCHARGE: VITAL SIGNS: Please see below. GENERAL: HEENT: NECK: CARDIOVASCULAR EXAMINATION: RESPIRATORY EXAMINATION: ABDOMINAL EXAMINATION: EXTREMITIES: SKIN: NEUROLOGICAL EXAMINATION: PSYCHIATRIC EXAMINATION: LABORATORY DATA: Please see below. IMAGING: PROGNOSIS: ACTIVITY: [As tolerated]. DIET: DISCHARGE PLAN: DISPOSITION: . DISCHARGE INSTRUCTIONS: 1. . ITEMS TO FOLLOWUP ON ON OUTPATIENT: 1. . DISCHARGE CONDITION: [Stable]. TIME SPENT ON DISCHARGE: Greater than minutes. Vital Signs/I&Os Vital Signs Date Time Temp Pulse Resp B/P (MAP) Pulse Ox O2 Delivery O2 Flow Rate FiO2 09/13/20 08:00 98.0 102 18 113/66 (82) 91 Room Air 09/10/20 15:45 1.0 I&O- Last 24 Hours up to 6 AM 09/13/20 06:00 Intake Total 1210 ml Output Total 1200 ml Balance 10 ml Laboratory Data Labs 24H Laboratory Tests 2 09/13/20 05:03: Immature Granulocyte % (Auto) 0.5, Neutrophils (%) (Auto) 65.2, Lymphocytes (%) (Auto) 15.5L, Monocytes (%) (Auto) 13.1H, Eosinophils (%) (Auto) 5.2H, Basophils (%) (Auto) 0.5, Neutrophils # (Auto) 4.3, Lymphocytes # (Auto) 1.0L, Monocytes # (Auto) 0.9H, Eosinophils # (Auto) 0.3, Basophils # (Auto) 0.0, Nucleated Red Blood Cells % (auto) 0.0, Prothrombin Time 14.4H, Prothromb Time International Ratio 1.10, Anion Gap 8, Glomerular Filtration Rate 20.5L, Calcium Level 9.1 CBC/BMP Laboratory Tests 09/13/20 05:03 Microbiology Microbiology 09/07/20 Campylobacter (PCR) - Final, Complete 09/07/20 Clostridium difficile Toxin A&B PCR - Final, Complete 09/07/20 Plesiomonas shigelloides (PCR) - Final, Complete 09/07/20 Salmonella (PCR)(KAVON) - Final, Complete 09/07/20 Vibrio Species (PCR) - Final, Complete 09/07/20 Vibrio Cholerae (PCR) - Final, Complete 09/07/20 Yersinia enterocolitica (PCR) - Final, Complete 09/07/20 Enteroaggregative E. coli (PCR) - Final, Complete 09/07/20 Enteropathogenic E. coli (PCR) - Final, Complete 09/07/20 Enterotoxigenic E. coli (PCR) - Final, Complete 09/07/20 E. coli Shiga-like Toxin (PCR) - Final, Complete 09/07/20 Escherichia coli 0157 (PCR) - Final, Complete 09/07/20 Enteroinvasive E. coli/Shigella PCR - Final, Complete 09/07/20 Cryptosporidium (PCR) - Final, Complete 09/07/20 Cyclospora cayetanensis (PCR) - Final, Complete 09/07/20 Entamoeba histolytica (PCR) - Final, Complete 09/07/20 Giardia lamblia (PCR) - Final, Complete 09/07/20 Adenovirus Type F 40/41 (PCR) - Final, Complete 09/07/20 Astrovirus (PCR) - Final, Complete 09/07/20 Norovirus GI/GII (PCR) - Final, Complete 09/07/20 Rotavirus A (PCR) - Final, Complete 09/07/20 Sapovirus I/II/IV/V (PCR) - Final, Complete 09/07/20 Urine Culture - Final, Complete 09/06/20 Blood Culture - Final, Complete NO GROWTH AFTER 5 DAYS 09/06/20 Stool Occult Blood (KAVON) - Final, Complete 09/06/20 Blood Culture - Final, Complete NO GROWTH AFTER 5 DAYS Discharge Medications Scheduled Acetaminophen (Tylenol Arthritis) 650 Mg Tablet.er, 650 MG PO Q8H, (Reported) Allopurinol (Allopurinol) 100 Mg Tablet, 100 MG PO DAILY, (Reported) Aspirin (Ecotrin) 81 Mg Tablet.dr, 81 MG PO QHS, (Reported) Calcitriol (Calcitriol) 0.25 Mcg Capsule, 0.25 MCG PO Q2D, (Reported) Ferrous Gluconate (Ferrous Gluconate) 324 Mg Tablet, 324 MG PO QPM, (Reported) Finasteride (Finasteride) 5 Mg Tablet, 5 MG PO QHS, (Reported) Folic Acid (Folic Acid) 1 Mg Tablet, 1 MG PO QHS, (Reported) Furosemide (Furosemide) 40 Mg Tablet, 40 MG PO BID, (Reported) TAKES AM AND PM Gemfibrozil (Gemfibrozil) 600 Mg Tablet, 600 MG PO BID, (Reported) L.acidoph/L.bulg/B.bif/S.therm (Pearl-Bid Caplet) 1 Each Tablet, 1 TAB PO QPM, (Reported) Leuprolide Acetate (Lupron Depot) Unknown Strength Syringekit, 1 DOSE IM ASDIRECTED, (Reported) EVERY 6 MONTHS Lisinopril (Lisinopril) 5 Mg Tablet, 5 MG PO DAILY, (Reported) Metoprolol Tartrate (Metoprolol Tartrate) 25 Mg Tablet, 12.5 MG PO BID, (Reported) Omeprazole (Omeprazole) 40 Mg Capsule.dr, 40 MG PO DAILY, (Reported) Rosuvastatin Calcium (Rosuvastatin Calcium) 20 Mg Tablet, 20 MG PO QHS, (Reported) Tamsulosin HCl (Flomax) 0.4 Mg Capsule, 0.4 MG PO QHS, (Reported) Warfarin Sodium (Warfarin Sodium) 3 Mg Tablet, 3 MG PO 2XW, (Reported) TUES/THURS AT BEDTIME Warfarin Sodium (Warfarin Sodium) 2 Mg Tablet, 2 MG PO 5XW, (Reported) SUN/MON/WED/FRI/SAT AT BEDTIME Scheduled PRN Albuterol Sulfate (Proair Hfa) 8.5 Gm Hfa.aer.ad, 2 PUFF INH Q6H PRN for SO B/WHEEZING, (Reported) Nitroglycerin (Nitrostat) 0.4 Mg Tab.subl, 0.4 MG SL Q5MP PRN for CHEST PAIN, (Reported) Allergies Coded Allergies: No Known Allergies (Unverified , 01/28/19) NARINDER ELDER DO Sep 13, 2020 14:23
--- NOTE | 2020-09-13 14:33 | DS.PDOC ---
Discharge Summary General Date of Admission Sep 06, 2020 at 19:40 Date of Discharge 09/13/20 Discharge Summary PROCEDURES PERFORMED DURING STAY: [None]. ADMITTING DIAGNOSES: Acute renal failure on CKD anemia of chronic diseases Acute diastolic CHF Atrial fibrillation Metabolic acidosis Elevated troponin Subtherapeutic INR Hematuria DISCHARGE DIAGNOSES: Acute renal failure on CKD anemia of chronic diseases Acute diastolic CHF Atrial fibrillation Metabolic acidosis Elevated troponin Subtherapeutic INR Hematuria COMPLICATIONS/CHIEF COMPLAINT: Hypovolemic Shock. HISTORY OF PRESENT ILLNESS: 80 year old male with a past medical history sign ificant for COPD, CAD, PVD, CKD, and Prostate Cancer who presented to [facility] as a transfer from [facility] for higher level of care. On presentation patient was hypotensive requiring pressors. He was in acute renal failure, acute decompensated CHF, and metabolic acidosis. Nephrology was consulted for CVVHD. Patient admitted to the ICU for management and was downgraded overnight on September 10 to PCU. He was taken off of continuous dialysis. Given his poor urine output he'll need scheduled dialysis outpatient. HOSPITAL COURSE: During hospital stay following issues addressed Acute renal failure on CKD Patient non-oliguric, continue IV diuretics, no needs for dialysis for now Nephrology team follows him Anemia Secondary to anemia of chronic diseases secondary to CKD Hemoglobin stable c/w Aranesp Acute diastolic CHF Continue Lasix Echo pending I's and O's Atrial fibrillation Heart rate under control Continue anticoagulation Metabolic acidosis Secondary to uremia Resolved Elevated troponin Most likely secondary to demand ischemia Cardiac workup negative Troponin trended down Subtherapeutic INR Dose of warfarin increased to 5 mg daily at bedtime Hematuria Most likely secondary to elevated INR Resolved Patient will need follow-up with urologist in the outpatient settings DATE: 09/12/2020 DISCHARGE MEDICATIONS: Please see below. ALLERGIES: Please see below. PHYSICAL EXAMINATION ON DISCHARGE: VITAL SIGNS: Please see below. GENERAL APPEARANCE: NAD HEENT: no scleral icterus, no JVD, EOMI CARDIOVASCULAR: S1S2 LUNGS: Irregularly irregular ABDOMEN: soft & not tender w palpitation MUSCULOSKELETAL: no cyanosis, no swelling INTEGUMENT: no generalized pallor NEUROLOGICAL: cranial nerve function from 2-12 intact intact, follows commands, speech not dysarthric LABORATORY DATA: Please see below. IMAGING: Exam: XR Chest, 1 View Exam date and time: 09/06/20 (9:47pm) Age: 80 years old Clinical indication: Central line placement TECHNIQUE: Imaging protocol: Portable CXR Views: 1 view COMPARISON: Portable CXR of 01/28/19 FINDINGS: Comparison is made with a portable CXR done on 01/28/19. Stable cardiomegaly. S/P sternotomy. Probable crowding of vessels at the left lung base (unchanged appearance). No consolidation. No pleural effusions. Right-sided jugular venous catheter, with its tip at the approximate atrio-caval junction. No pneumothorax. IMPRESSION: Stable cardiomegaly. Previous sternotomy. No focal infiltrates. Right-sided jugular venous catheter, with its tip at the approximate atrio-caval junction. No pneumothorax. PROGNOSIS: Fair ACTIVITY: [As tolerated]. DIET: Cardiac DISPOSITION: ARU ITEMS TO FOLLOWUP ON ON OUTPATIENT: Follow-up with tongue and groove machine setter and PCP DISCHARGE CONDITION: [Stable]. TIME SPENT ON DISCHARGE: Greater than 30 minutes. Vital Signs/I&Os Vital Signs Date Time Temp Pulse Resp B/P (MAP) Pulse Ox O2 Delivery O2 Flow Rate FiO2 09/13/20 08:00 98.0 102 18 113/66 (82) 91 Room Air 09/10/20 15:45 1.0 I&O- Last 24 Hours up to 6 AM 09/13/20 06:00 Intake Total 1210 ml Output Total 1200 ml Balance 10 ml Laboratory Data Labs 24H Laboratory Tests 2 09/13/20 05:03: Immature Granulocyte % (Auto) 0.5, Neutrophils (%) (Auto) 65.2, Lymphocytes (%) (Auto) 15.5L, Monocytes (%) (Auto) 13.1H, Eosinophils (%) (Auto) 5.2H, Basophils (%) (Auto) 0.5, Neutrophils # (Auto) 4.3, Lymphocytes # (Auto) 1.0L, Monocytes # (Auto) 0.9H, Eosinophils # (Auto) 0.3, Basophils # (Auto) 0.0, Nucleated Red Blood Cells % (auto) 0.0, Prothrombin Time 14.4H, Prothromb Time International Ratio 1.10, Anion Gap 8, Glomerular Filtration Rate 20.5L, Calcium Level 9.1 CBC/BMP Laboratory Tests 09/13/20 05:03 Microbiology Microbiology 09/07/20 Campylobacter (PCR) - Final, Complete 09/07/20 Clostridium difficile Toxin A&B PCR - Final, Complete 09/07/20 Plesiomonas shigelloides (PCR) - Final, Complete 09/07/20 Salmonella (PCR)(KAVON) - Final, Complete 09/07/20 Vibrio Species (PCR) - Final, Complete 09/07/20 Vibrio Cholerae (PCR) - Final, Complete 09/07/20 Yersinia enterocolitica (PCR) - Final, Complete 09/07/20 Enteroaggregative E. coli (PCR) - Final, Complete 09/07/20 Enteropathogenic E. coli (PCR) - Final, Complete 09/07/20 Enterotoxigenic E. coli (PCR) - Final, Complete 09/07/20 E. coli Shiga-like Toxin (PCR) - Final, Complete 09/07/20 Escherichia coli 0157 (PCR) - Final, Complete 09/07/20 Enteroinvasive E. coli/Shigella PCR - Final, Complete 09/07/20 Cryptosporidium (PCR) - Final, Complete 09/07/20 Cyclospora cayetanensis (PCR) - Final, Complete 09/07/20 Entamoeba histolytica (PCR) - Final, Complete 09/07/20 Giardia lamblia (PCR) - Final, Complete 09/07/20 Adenovirus Type F 40/41 (PCR) - Final, Complete 09/07/20 Astrovirus (PCR) - Final, Complete 09/07/20 Norovirus GI/GII (PCR) - Final, Complete 09/07/20 Rotavirus A (PCR) - Final, Complete 09/07/20 Sapovirus I/II/IV/V (PCR) - Final, Complete 09/07/20 Urine Culture - Final, Complete 09/06/20 Blood Culture - Final, Complete NO GROWTH AFTER 5 DAYS 09/06/20 Stool Occult Blood (KAVON) - Final, Complete 09/06/20 Blood Culture - Final, Complete NO GROWTH AFTER 5 DAYS Discharge Medications Scheduled Acetaminophen (Tylenol Arthritis) 650 Mg Tablet.er, 650 MG PO Q8H, (Reported) Allopurinol (Allopurinol) 100 Mg Tablet, 100 MG PO DAILY, (Reported) Aspirin (Ecotrin) 81 Mg Tablet.dr, 81 MG PO QHS, (Reported) Calcitriol (Calcitriol) 0.25 Mcg Capsule, 0.25 MCG PO Q2D, (Reported) Ferrous Gluconate (Ferrous Gluconate) 324 Mg Tablet, 324 MG PO QPM, (Reported) Finasteride (Finasteride) 5 Mg Tablet, 5 MG PO QHS, (Reported) Folic Acid (Folic Acid) 1 Mg Tablet, 1 MG PO QHS, (Reported) Furosemide (Furosemide) 40 Mg Tablet, 40 MG PO BID, (Reported) TAKES AM AND PM Gemfibrozil (Gemfibrozil) 600 Mg Tablet, 600 MG PO BID, (Reported) L.acidoph/L.bulg/B.bif/S.therm (Pearl-Bid Caplet) 1 Each Tablet, 1 TAB PO QPM, (Reported) Leuprolide Acetate (Lupron Depot) Unknown Strength Syringekit, 1 DOSE IM ASDIRECTED, (Reported) EVERY 6 MONTHS Lisinopril (Lisinopril) 5 Mg Tablet, 5 MG PO DAILY, (Reported) Metoprolol Tartrate (Metoprolol Tartrate) 25 Mg Tablet, 12.5 MG PO BID, (Reporte d) Omeprazole (Omeprazole) 40 Mg Capsule.dr, 40 MG PO DAILY, (Reported) Rosuvastatin Calcium (Rosuvastatin Calcium) 20 Mg Tablet, 20 MG PO QHS, (Reported) Tamsulosin HCl (Flomax) 0.4 Mg Capsule, 0.4 MG PO QHS, (Reported) Warfarin Sodium (Warfarin Sodium) 3 Mg Tablet, 3 MG PO 2XW, (Reported) TU/TH AT BEDTIME Warfarin Sodium (Warfarin Sodium) 2 Mg Tablet, 2 MG PO 5XW, (Reported) SUN/MON/WED/FRI/SAT AT BEDTIME Scheduled PRN Albuterol Sulfate (Proair Hfa) 8.5 Gm Hfa.aer.ad, 2 PUFF INH Q6H PRN for SOB/WHEEZING, (Reported) Nitroglycerin (Nitrostat) 0.4 Mg Tab.subl, 0.4 MG SL Q5MP PRN for CHEST PAIN, (Reported) Allergies Coded Allergies: No Known Allergies (Unverified , 01/28/19) NARINDER ELDER DO Sep 13, 2020 14:33
[2020-09-13] MEDS ORDERED: WARFARIN SOD 5MG TAB PO ONE (17:00)
[2020-09-14] MEDS ORDERED: WARFARIN SOD 5MG TAB PO SCH (17:00)
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
--- NOTE | 2020-09-15 11:37 | CCN ---
CRITICAL CARE NOTE DATE: 09/07/2020 SUBJECTIVE: The patient was seen and examined this morning during bedside rounds. Yesterday evening the patient had his hemodialysis catheter placed and was started on emergent [employer] which he was tolerating well. The patient also had a right IJ triple lumen catheter placed for vasopressor support. The patient was on very low dose of Levophed this morning and was able to be weaned off entirely around 9:00 a.m. He has also now been attempting to have fluid removal with his CRRT which he appears to be tolerating. The patient also has had improvement in his oxygenation and has required less nasal cannula oxygen supplementation. He does report feeling better today and is feeling stronger. He does have some dyspnea still. The patient did have an episode of diarrhea overnight but his C-diff was negative. He has not had any fevers or chills and he denies any abdominal pain and no nausea or vomiting. OBJECTIVE: PHYSICAL EXAMINATION: VITAL SIGNS: Temperature 97.2, pulse 102, respirations 24, blood pressure is 108/60, 02 sat is 98% on one liter nasal cannula. GENERAL APPEARANCE: The patient is an elderly male, is sitting in bed, and appears awake and alert. He is answering questions appropriately, and he does not appear to be in acute respiratory distress. HEENT: Normocephalic and atraumatic. Pupils are reactive to light bilaterally. Moist mucous membranes noted. The patient does have some wheezing audibly although this appears to be improved from the evening and is more upper airway wheezing. NECK: Supple. Trachea is midline. There is no palpable cervical adenopathy. CARDIOVASCULAR: Irregularly irregular with a normal S1, S2, with a faint systolic murmur. RESPIRATORY: The patient has some diminished breath sounds bilaterally with crackles at the bases and occasional coarse wheeze. ABDOMEN: Obese, soft, nontender, nondistended. Bowel sounds present. EXTREMITIES: There is no significant lower extremity edema bilaterally. The patient does have a left femoral dialysis catheter with very mild oozing in the dressing. His right IJ triple lumen catheter is in place which does have some more oozing in the dressing. LABORATORY STUDIES: WBC 7.6, hemoglobin 8.6, platelets 123. Chemistries: Sodium is 140, potassium 3.6, chloride is 105, bicarbonate is 18, BUN 91, creatinine 5.21, glucose is 97, magnesium 1.7, uric acid 2.4, calcium is 8.5, phosphorous 5.6, troponin 0.28. Guaiac was negative. C-difficile was negative. ABG: PH 7.307, pco2 of 22.9, pO2 of 2.6. ASSESSMENT AND PLAN: Mr. Manzano is an 80-year-old male with a past medical history of coronary artery disease, chronic obstructive pulmonary disease, chronic kidney disease, prostate cancer, peripheral vascular disease, who presented as a transfer from [facility] with diarrhea and weakness. The patient was hypotensive at [facility] and had required vasopressor peripherally. He was also in severe metabolic acidosis with usorz-kk-yjshrze renal function. The patient was transferred to the ICU overnight for management. He had a hemodialysis catheter placed and was started on CRRT by nephrology. Ysakn-hj-ziqeeow renal function with metabolic acidosis. Appreciate Renal consult and recommendations. The patient's acidosis and uremia appear to be improving with CRRT. We will continue with CRRT as per Nephrology. We will continue to monitor his urine outputs via his Naidu catheter. The patient's antihypertensive medication is on hold currently. Shock. The patient had possible hypovolemic shock initially although he was aggressively resuscitated with IV fluids at the outside hospital before developing hypoxia and dyspnea from fluid overload. There is a question of septic shock although his lactic acid was normal as he was complaining of diarrhea and has a prior history of colitis. His C-difficile was negative but GI panel is still pending and he did have episodes of diarrhea overnight. We will continue empiric antibiotics for possible gastroenteritis/colitis with deescalation as there is clinical improvement. The patient was on Levophed overnight although was able to wean off this morning. We will continue to monitor blood pressures to maintain a MAP above 65. He does have evidence of fluid overload and pulmonary edema and there is plan for fluid removal with CRRT as his blood pressure tolerates. Acute hypoxic respiratory failure on nasal cannula oxygen supplementation. The patient's hypoxia appears to be improving with dialysis and with fluid removal. We will continue to titrate nasal cannula and wean off if tolerated. Continue with nebulized bronchodilators as needed. Mild demand ischemia likely in the setting of his shock as well as with his fluid overload. There is a questionable history of congestive heart failure as well. The patient was on Coumadin for anticoagulation but was supratherapeutic. We will continue to trend his INR. DVT PROPHYLAXIS TEDS and SCDs. CODE STATUS DNR/DNI. Total critical care time spent not including any procedures approximately 35 minutes. Please do not hesitate to call if any further questions or concerns.
== END 2020-09-13 15:15 | DRG 682 ==
LOC: M PCU 19:40
PROVIDERS: ADMIT Family Medicine; ATTEND Internal Medicine
PROC: 02H633Z Insertion of Infusion Device into Right Atrium, Percutaneous Approach (ICD-10-PCS; principal; 2020-09-06)
PROC: 5A1D90Z Performance of Urinary Filtration, Continuous, Greater than 18 hours Per Day (ICD-10-PCS; 2020-09-06)
PROC: 06HN33Z Insertion of Infusion Device into Left Femoral Vein, Percutaneous Approach (ICD-10-PCS; 2020-09-06)
PROC: 30233N1 Transfusion of Nonautologous Red Blood Cells into Peripheral Vein, Percutaneous Approach (ICD-10-PCS; 2020-09-09)
DX: N17.9 Acute kidney failure, unspecified (principal); I50.31 Acute diastolic (congestive) heart failure; R57.1 Hypovolemic shock; E87.2 Acidosis; I48.20 Chronic atrial fibrillation, unspecified; I13.0 Hypertensive heart and chronic kidney disease with heart failure and stage 1 through stage 4 chronic kidney disease, or unspecified chronic kidney disease; D68.32 Hemorrhagic disorder due to extrinsic circulating anticoagulants; I24.8 Other forms of acute ischemic heart disease; J44.9 Chronic obstructive pulmonary disease, unspecified; I25.10 Atherosclerotic heart disease of native coronary artery without angina pectoris; Z66 Do not resuscitate; N18.9 Chronic kidney disease, unspecified; N40.0 Benign prostatic hyperplasia without lower urinary tract symptoms; I95.9 Hypotension, unspecified; D63.1 Anemia in chronic kidney disease; R51.9 Headache, unspecified; E86.0 Dehydration; I73.9 Peripheral vascular disease, unspecified; M19.90 Unspecified osteoarthritis, unspecified site; M10.9 Gout, unspecified; H91.93 Unspecified hearing loss, bilateral; R19.7 Diarrhea, unspecified; R09.02 Hypoxemia; R31.9 Hematuria, unspecified; Z95.2 Presence of prosthetic heart valve; Z87.891 Personal history of nicotine dependence; Z95.820 Peripheral vascular angioplasty status with implants and grafts; Z95.5 Presence of coronary angioplasty implant and graft; Z85.46 Personal history of malignant neoplasm of prostate; Z79.82 Long term (current) use of aspirin; Z79.01 Long term (current) use of anticoagulants; Z79.899 Other long term (current) drug therapy

== ENCOUNTER 2020-09-13 09:35 | Inpatient (IN) | payer MEDICARE ==
[~2020-09-13] VITALS: Ht 170.2 cm; Wt 73.3 kg
[~2020-09-13 09:35] MED LIST changes: +ACET650T61 PO; +ASPI-569 PO; -ASPI81TAEC PO; -LISI-542 PO; +LISI-898 PO; +LUPR45IN IM; +NITR4TASL SL; +PROAAER10 INH; +WARF4TAB51 PO
[2020-09-13 15:28] VITALS: BP 99/55
[2020-09-13] MEDS ORDERED: BISACODYL 10 MG SUPP PR PRN (16:15)
[2020-09-13] MEDS ORDERED: WARFARIN SOD 5MG TAB PO ONE (17:00)
[2020-09-13] MEDS: FUROSEMIDE 40 MG TAB PO SCH (17:00)
--- NOTE | 2020-09-13 17:17 | IPN ---
NEPHROLOGY PROGRESS NOTE DATE: 09/13/2020 SUBJECTIVE: Patient was seen and examined at the bedside today morning. He was actually sitting up in the sofa. He feels much better. He was given diuretics yesterday. He is making urine. It looks like his creatinine has plateaued now. His creatinine today is 3.1. Electrolytes are within the acceptable range. He still has an indwelling Naidu catheter at this time. OBJECTIVE: VITAL SIGNS: Temperature 98.6 degrees Fahrenheit, blood pressure 99/55, pulse 87, respiratory rate 20, saturating 96% on room air. INTAKE AND OUTPUT: Urine output recorded as 970 mL yesterday, 400 mL so far today since overnight. Weight in the bed scale is 80.8 kg. PHYSICAL EXAMINATION: GENERAL: Patient is awake, alert and oriented x3, sitting up in the sofa, in no apparent distress. HEAD/NECK: Extraocular muscles intact. Pupils equally round and reactive to light. Mucous membranes are moist. Neck is supple. There is no JVD. CARDIOVASCULAR: S1, S2, regular rate. No significant edema of bilateral lower extremities. RESPIRATORY: Mildly decreased breath sounds at the bases with inspiratory crackles at the bases bilaterally. ABDOMEN: Soft, positive bowel sounds, nontender, no organomegaly. MUSCULOSKELETAL: No clubbing or cyanosis. Pulses are 2+. He has a dialysis catheter in the left groin. ELECTRONICS TECH: No focal deficits. Power is 5/5 in all extremities. LAB REVIEW: CBC showed WBC 6.6, hemoglobin 8.8, platelets 163,000. BMP showed sodium 142, potassium 3.6, chloride 106, bicarb 28, BUN 43, creatinine 3.1. ASSESSMENT AND PLAN: 1. Acute renal failure: Patient is responding to the diuretics. He is nonoliguric at this time. Continue p.r.n. Lasix daily. Creatinine has plateaued at 3. Keep the left groin dialysis catheter for now; it will be removed at the end of week if patient does not require any dialysis. 2. Anemia and acute renal failure: Patient's iron levels are adequate. He was given a dose of Aranesp, that will be restarted once he gets transferred to rehab unit. 3. Secondary hyperparathyroidism: Continue current dose of Calcitriol. 4. Chronic gout secondary to chronic kidney disease: Continue current dose of Allopurinol.
[2020-09-13] MEDS: ACETAMINOPHEN TAB 650MG DOSE (2X325MG) PO PRN (17:52)
[2020-09-13 20:00] VITALS: BP 98/57
[2020-09-13] MEDS: IPRATROPIUM 0.5MG/ALBUTEROL 2.5MG INH SOL UD 3ML (DUONEB) NEB SCH (20:00)
[2020-09-13] MEDS ORDERED: TAMSULOSIN 0.4 MG CAP PO SCH (21:00)
[2020-09-13] MEDS: NYSTATIN 100,000 UNITS/GM TOPICAL PWD 15 GM TOP SCH (22:02)
[2020-09-13] MEDS: ROSUVASTATIN 10 MG TAB (CRESTOR) PO SCH (22:03)
[2020-09-13] MEDS: DOCUSATE SODIUM 100MG CAPSULE PO SCH (22:03)
[2020-09-13] MEDS: SENNA 8.6 MG TAB (SENOKOT) PO SCH (22:03)
[2020-09-13] MEDS: FOLIC ACID 1 MG TAB PO SCH (22:03)
[2020-09-13] MEDS: ASPIRIN 81MG ENTERIC TABLET PO SCH (22:03)
[2020-09-13] MEDS: LACTOBACILLUS ACIDOPHILUS CAP (BACID) PO SCH (22:04)
[2020-09-13] MEDS: FINASTERIDE 5 MG TAB PO SCH (22:05)
[2020-09-13] MEDS: METOPROLOL TART 12.5 MG PER 1/2 TAB PO SCH (22:05)
[2020-09-14] MEDS: IPRATROPIUM 0.5MG/ALBUTEROL 2.5MG INH SOL UD 3ML (DUONEB) NEB SCH ×4 (01:50→20:29)
[2020-09-14 05:20] VITALS: BP 108/60
[2020-09-14 06:48] LABS: BASO % 0.2 % (0.0-1.0); EOS # 0.3 10^3/uL (0.0-0.5); EOS % 4.7 % (0.0-3.0); HEMATOCRIT 26.8 % (42.0-52.0); HEMOGLOBIN 8.7 g/dl (13.5-17.5); LYMPH # 1.1 10^3/uL (1.5-5.0); LYMPH % 17.7 % (24.0-44.0); MEAN CORPUSCULAR HEMOGLOBIN 31.8 pg (27.0-33.0); MEAN CORPUSCULAR HGB CONC 32.5 g/dl (32.0-36.5); MEAN CORPUSCULAR VOLUME 97.8 fl (80.0-96.0); MONO # 0.8 10^3/uL (0.0-0.8); MONO % 12.8 % (0.0-5.0); NEUTROPHILS # 4.1 10^3/uL (1.5-8.5); NEUTROPHILS % 64.1 % (36.0-66.0); PLATELET COUNT, AUTOMATED 152 10^3/uL (150-450); RED BLOOD COUNT 2.74 10^6/uL (4.30-6.10); WHITE BLOOD COUNT 6.3 10^3/uL (4.0-10.0)
[2020-09-14 06:59] LABS: INR 1.24; PROTHROMBIN TIME 15.9 SECONDS (12.5-14.3)
[2020-09-14 07:09] LABS: ALBUMIN 2.7 GM/DL (3.2-5.2); BILIRUBIN,TOTAL 0.3 MG/DL (0.2-1.0); CALCIUM LEVEL 9.5 MG/DL (8.8-10.2); CREATININE FOR GFR 3.03 MG/DL (0.70-1.30); GLOMERULAR FILTRATION RATE 21.2 (>35); POTASSIUM SERUM 3.6 MEQ/L (3.5-5.1); TOTAL PROTEIN 5.8 GM/DL (6.4-8.2)
[2020-09-14] MEDS ORDERED: allopurinoL 100 MG TAB PO SCH (09:00)
[2020-09-14] MEDS: FUROSEMIDE 40 MG TAB PO SCH (09:00)
[2020-09-14] MEDS: DOCUSATE SODIUM 100MG CAPSULE PO SCH ×2 (09:00→21:00)
[2020-09-14] MEDS: METOPROLOL TART 12.5 MG PER 1/2 TAB PO SCH ×3 (09:00→17:06)
[2020-09-14] MEDS: LACTOBACILLUS ACIDOPHILUS CAP (BACID) PO SCH ×2 (09:01→21:52)
[2020-09-14] MEDS: CALCITRIOL 0.25 MCG CAP (S0169) PO SCH (09:01)
[2020-09-14] MEDS: OMEPRAZOLE 20 MG CAP PO SCH (09:01)
[2020-09-14] MEDS: FERROUS GLUCONATE 324 MG TAB PO SCH (09:01)
[2020-09-14] MEDS: NYSTATIN 100,000 UNITS/GM TOPICAL PWD 15 GM TOP SCH ×2 (09:03→21:53)
--- NOTE | 2020-09-14 09:56 | HPEPDOC ---
[employer] Note DATE OF ADMISSION: 09-13-20 DATE OF SERVICE: 09-14-20 TIME OF ADMISSION: Please refer to physician's admission order. SOURCE OF ADMISSION INFORMATION: [facility] record and patient CHIEF COMPLAINT: renal failure HISTORY OF PRESENT ILLNESS: 80M pmh afib on Coumadin, COPD, CHF, BPH, CAD s/p CABG with stent, s/p aortic valve replacement (bovine), s/p bilat LE stents, prostate cancer who transferred to [facility] ED on 09-06-20 from [facility] following a fall at home in the setting of a diarrheal infection and ongoing hematuria, was found to be h ypotensive and in acute renal failure with a supratherapeutic INR. He was started on CVVHD for his acute oliguric RF and to treat his acute CHF exacerbation. He was followed closely by renal, showed improved urine output with relatively stable kidney function, was weaned off oxygen, evaluated by the rapy and deemed medically appropriate for discharge to ARU on 09-13-20 for mobility and ADl impairments. On evaluation patient reports he does not feel short of breath despite breathing through pursed lips. He also reports his left arm has been weak for a few months and that he attributes it to arthritis in his neck and has been managed by a chiropractor. REVIEW OF SYSTEMS: The following is a completed review of systems and has been reviewed. Review of systems otherwise unremarkable. PAIN: Patient self reports no pain EYES: No recent vision changes EARS, NOSE, & THROAT: No throat pain, or dysphagia, or rhinorrhea CARDIOVASCULAR: Denies chest pain or palpitations PULMONARY: Denies shortness of breath GASTROINTESTINAL: Denies constipation/diarrhea GENITOURINARY: denies dysuria MUSCULOSKELETAL: generalized weakness NEUROLOGICAL:denies tremor, +bilat LE and UE paresthesias HEMATOLOGICAL: denies easy bruising SKIN: left groin catheter PSYCHIATRIC: Unremarkable All other review of systems found to be negative. PAST MEDICAL HISTORY: as per HPI PAST SURGICAL HISTORY: as per HPI ALLERGIES: Please see below. MEDICATIONS: Please see below. FAMILY HISTORY: cardiac SOCIAL HISTORY: No etoh/illicit drugs/smoking DIET: low sodium PHYSICAL EXAMINATION: VITAL SIGNS: Please see below. GENERAL: Pleasant and cooperative. No acute distress. HEENT: PERRL. Extraocular movements intact. mild left facial droop CARDIOVASCULAR: Regular rate and rhythm. No murmurs, rubs, or gallops LUNGS: Clear to auscultation bilaterally. No wheezes. No rhonchi ABDOMEN: Soft, nontender, nondistended. Positive bowel sounds. Normal active bowel sounds NEUROLOGICAL: Alert and oriented times three. Cranial nerves II through XII grossly intact. Sensation grossly diminished to light touch in stocking/glove pattern) EXTREMITIES: RUE eblow flexion/extension 5/5, wrist extension 5/5, catalyst impregnator 4/5 (finger deformity from old injury), RLE 5/5, Left elbow flexion/extension wrist extension, catalyst impregnator 3+/5, left hip flexors >3/5 (limited due to groin pain) knee extension 4/5, ankle DF 3+/5 (+) bilat LE edema, LUE edema SKIN: no sacral ulcers LABORATORY DATA: Please see below. IMAGING: Imaging documentation personally reviewed by record FUNCTIONAL STATUS: Premorbid: Independent with all activities of daily life as well as mobility On Admission: Min-Mod assist for bed mobility, functional transfers, ambulat ion, dressing GOALS: Mod-I functional transfers, household ambulation, dressing, toileting, bathing, grooming ASSESSMENT:80-year-old M with past medical history of COPD, CHF who presents status post oliguric renal failure PLAN: 1. Rehab- PT/OT advance mobility and ADLs, strengthen/stretch/maintain ROM all 4limbs 2. Neuro- patient with left sided weakness and facial droop not acute, will order MRI brain to r/o stroke -peripheral polyneuropathy possibly due to PVD and/or spinal stenosis 3. Cardiac- hx of Afib and aortic valve replacement (bovine) on Warfarin and metoprolol, monitor daily INRs, hx CAD s/p CABG c/u ASA -probable diastolic CHF- daily weights, fluid restrict, renal following closely for fluid management- diuretics per their recs -HLD- c/u statin 4. Resp- hx of COPD, not on home 02, recent ECHO showing moderate pulmonary HTN, supplemental oxygen , c/u duonebs, monitor for infection 5. renal- oliguric ARF improving, plan for HD on hold at this point, renal fol lowing closely 6. - hx of BPH, c/u finasteride, will hold Flomax for now as patient with persistently low BPs and having difficulty administering diuretics needed to treat his fluid overloaded status -monitor for hematuria 7. GI ppx- omeprazole 8. DVT ppx- on warfarin, will order dopplers to r/o dvt 9. Pain- tylnenol prn 10. Dispo- TBD POST ADMISSION PHYSICIAN EVALUATION: Medical and functional status: Description of medical status, medical assessment: As above. Rehabilitation diagnosis and current and prior cold morbid medical conditions as above. Risk of complications and plans to mitigate them as above. Description of functional status current status is as above. Prior status as above. Status compared to preadmission: There are no clinically significant differences between the patient's current status and the information described on the preadmission screening document. Treatment plan anticipated: Treatment plan is as described above. Required disciplines including physical therapy, occupational therapy, others as noted above. Intensity of services: 3 hours a day, 6 days a week. Special considerations: There are no specific special or safety considerations that would likely preclude immediate implementation of an intensive rehabilitation program or subsequently influence the plan of care. ATTESTATION: Considering all the information above, it is my best judgment that this patient requires intensive rehabilitation therapy as described above and an inpatient hospital environment due to the complexity of nursing, medical, and rehabilitation needs required by the patient. Furthermore, this patient can reasonably be expected to participate in an benefit from an inpatient rehabilitation stay with an interdisciplinary team approach to the delivery of rehabilitation care under the direction and supervision of rehabilitation physician. PROGNOSIS: fair ESTIMATED LENGTH OF STAY:14-18 days. PROJECTED DISCHARGE DESTINATION: Home with family support and any durable medical equipment required to increase functional safety and mobility. TIME SPENT COUNSELING AND COORDINATING INITIAL CARE: Greater than 70 minutes. Vital Signs Vital Sign - Last 24 Hours 09/13/20 09/13/20 09/13/20 09/14/20 15:28 20:00 22:05 05:20 Temp 98.6 98.6 98.1 Pulse 87 103 103 105 Resp 20 21 19 B/P (MAP) 99/55 (70) 98/57 (71) 98/57 108/60 (76) Pulse Ox 96 91 93 O2 Delivery Room Air Room Air Room Air 09/14/20 09:00 Pulse 95 B/P (MAP) 101/55 Laboratory Data CBC/BMP Laboratory Tests 09/14/20 06:34 Labs 24H Laboratory Tests 2 09/14/20 06:34: Immature Granulocyte % (Auto) 0.5, Neutrophils (%) (Auto) 64.1, Lymphocytes (%) (Auto) 17.7L, Monocytes (%) (Auto) 12.8H, Eosinophils (%) (Auto) 4.7H, Basophils (%) (Auto) 0.2, Neutrophils # (Auto) 4.1, Lymphocytes # (Auto) 1.1L, Monocytes # (Auto) 0.8, Eosinophils # (Auto) 0.3, Basophils # (Auto) 0.0, Nucleated Red Blood Cells % (auto) 0.0, Prothrombin Time 15.9H, Prothromb Time International Ratio 1.24, Anion Gap 10, Glomerular Filtration Rate 21.2L, Calcium Level 9.5, Total Bilirubin 0.3, Aspartate Amino Transf (AST/SGOT) 19, Alanine Aminotransferase (ALT/SGPT) 27, Alkaline Phosphatase 94, Total Protein 5.8L, Albumin 2.7L, Albumin/Globulin Ratio 0.9 Home Medications Scheduled Acetaminophen (Tylenol Arthritis) 650 Mg Tablet.er, 650 MG PO Q8H, (Reported) Allopurinol (Allopurinol) 100 Mg Tablet, 100 MG PO DAILY, (Reported) Aspirin (Ecotrin) 81 Mg Tablet.dr, 81 MG PO QHS, (Reported) Calcitriol (Calcitriol) 0.25 Mcg Capsule, 0.25 MCG PO Q2D, (Reported) Ferrous Gluconate (Ferrous Gluconate) 324 Mg Tablet, 324 MG PO QPM, (Reported) Finasteride (Finasteride) 5 Mg Tablet, 5 MG PO QHS, (Reported) Folic Acid (Folic Acid) 1 Mg Tablet, 1 MG PO QHS, (Reported) Furosemide (Furosemide) 40 Mg Tablet, 40 MG PO BID, (Reported) TAKES AM AND PM Gemfibrozil (Gemfibrozil) 600 Mg Tablet, 600 MG PO BID, (Reported) L.acidoph/L.bulg/B.bif/S.therm (Pearl-Bid Caplet) 1 Each Tablet, 1 TAB PO BID, (Reported) Leuprolide Acetate (Lupron Depot) Unknown Strength Syringekit, 1 DOSE IM ASDIRECTED, (Reported) EVERY 6 MONTHS Lisinopril (Lisinopril) 5 Mg Tablet, 5 MG PO DAILY, (Reported) Metoprolol Tartrate (Metoprolol Tartrate) 25 Mg Tablet, 12.5 MG PO BID, (Reported) Omeprazole (Omeprazole) 40 Mg Capsule.dr, 40 MG PO DAILY, (Reported) Rosuvastatin Calcium (Rosuvastatin Calcium) 20 Mg Tablet, 20 MG PO QHS, (Reported) Tamsulosin HCl (Flomax) 0.4 Mg Capsule, 0.4 MG PO QHS, (Reported) Warfarin Sodium (Warfarin Sodium) 3 Mg Tablet, 3 MG PO 2XW, (Reported) TU/THURS AT BEDTIME Warfarin Sodium (Warfarin Sodium) 2 Mg Tablet, 2 MG PO 5XW, (Reported) SUN/FRI/FRI/FRI/SAT AT BEDTIME Scheduled PRN Albuterol Sulfate (Proair Hfa) 8.5 Gm Hfa.aer.ad, 2 PUFF INH Q6H PRN for SOB/WHEEZING, (Reported) Nitroglycerin (Nitrostat) 0.4 Mg Tab.subl, 0.4 MG SL Q5MP PRN for CHEST PAIN, (Reported) Allergies Coded Allergies: No Known Allergies (Unverified , 01/28/19) A-FIB/CHADSVASC A-FIB History Current/History of A-Fib/PAF?: Yes Current PO Anticoag Therapy: Yes WONG SIMMONS MD Sep 14, 2020 09:56
[2020-09-14 12:15] VITALS: BP 112/61
[2020-09-14] MEDS ORDERED: FUROSEMIDE 40MG/4ML VIAL (J1940) IV ONE (12:30)
[2020-09-14] MEDS ORDERED: FUROSEMIDE 100MG/10ML VIAL (J1940) IV ONE (13:00)
--- NOTE | 2020-09-14 13:17 | IPNPDOC ---
Subjective Date Seen The patient was seen on 09/14/20. Subjective Chief Complaint/HPI Pt and nursing staff deny any overnight events. The pt is doing well and removal of dialysis catheter is being considered at this time. General: Denies: ROS Unobtainable, Chills, Night Sweats, Fatigue, Malaise, Normal Appetite, Other Symptoms Constitutional: Denies: Chills, Fever, Malaise, Night Sweats, Weakness, Fatigue, Weight Loss, Lethargy, Other Pulmonary: Denies: Dyspnea, Cough, Pleuritic Chest Pain, Other Symptoms Objective Physical Examination General Exam: Positive: Alert, Cooperative, No Acute Distress Eye Exam: Positive: Conjunctiva & lids normal Chest Exam: Positive: Other (bibasilar crackles present) Heart Exam: Positive: Rate Normal, Regular Rhythm, Normal S1, Normal S2; Negative: Gallops, Murmurs, Rubs Abdomen Exam: Positive: Normal bowel sounds, Soft; Negative: Tenderness Extremity Exam: Positive: Edema (left arm edema, but no lower extremity edema present at this time.) Assessment /Plan Assessment # Acute renal failure: Patient is responding to the diuretics. IV Lasix has been ordered for today. If pt tolerates this well, he will be changed to Torsemide tomorrow. Creatinine has plateaued at 3. Dialysis catheter will be removed today, since pt does not require any dialysis. # Anemia of chronic disease: Patient's iron levels are adequate. Aranesp that will be restarted once he get transferred to rehab unit. # Secondary hyperparathyroidism: Continue current dose of Calcitriol. # Chronic gout secondary to chronic kidney disease: Hold Allopurinol at this time since he is recovering from renal failure. Plan/VTE VTE Prophylaxis Ordered?: Yes (Pt is on Coumadin.) GME ATTESTATION My faculty preceptor for this patient encounter was physically present during the encounter and was fully available. All aspects of the patient interview, examination, medical decision making process, and medical care plan development were reviewed and approved by the faculty preceptor. The faculty preceptor is aware and concurs with the plan as stated in the body of this note and will attest to such by his/her cosignature. VS, I&O, 24H, Fishbone Vital Signs/I&O Vital Signs Date Time Temp Pulse Resp B/P (MAP) Pulse Ox O2 Delivery O2 Flow Rate FiO2 2/4/21 12:59 95 Room Air 09/14/20 12:15 90 112/61 (78) 09/14/20 05:20 98.1 19 I&O- Last 24 Hours up to 6 AM 09/14/20 06:00 Intake Total 460 ml Output Total 500 ml Balance -40 ml Laboratory Data 24H LABS Laboratory Tests 2 09/14/20 06:34: Immature Granulocyte % (Auto) 0.5, Neutrophils (%) (Auto) 64.1, Lymphocytes (%) (Auto) 17.7L, Monocytes (%) (Auto) 12.8H, Eosinophils (%) (Auto) 4.7H, Basophils (%) (Auto) 0.2, Neutrophils # (Auto) 4.1, Lymphocytes # (Auto) 1.1L, Monocytes # (Auto) 0.8, Eosinophils # (Auto) 0.3, Basophils # (Auto) 0.0, Nucleated Red Blood Cells % (auto) 0.0, Prothrombin Time 15.9H, Prothromb Time International Ratio 1.24, Anion Gap 10, Glomerular Filtration Rate 21.2L, Calcium Level 9.5, Total Bilirubin 0.3, Aspartate Amino Transf (AST/SGOT) 19, Alanine A minotransferase (ALT/SGPT) 27, Alkaline Phosphatase 94, Total Protein 5.8L, Albumin 2.7L, Albumin/Globulin Ratio 0.9 CBC/BMP Laboratory Tests 09/14/20 06:34 Attending Note Attending Note VINH requiring HD Edema and CHF anemia in VINH cont FABRIZIO. Loop diuretic for edema. No need of HD at this time. Alex Anthony DO Sep 14, 2020 13:17 AMBROSE ANTHONY MD Sep 19, 2020 13:41
--- NOTE | 2020-09-14 13:25 | IPNPDOC ---
Date Seen The patient was seen on 09/14/20. Progress Note SUBJECTIVE: 80 yo M with a hx of COPD, CAD s/p CABG, s/p AVR (bovine), PVD (s/p bilateral LE stens), CKD, prostate cancer, who was transfered from [facility] for higher level of care due to hypotension and acute renal failure with hematuria, acute decompensated CHF and metabolic acidosis. Nephrology was consulted and patient received CVVHD, transitioned to intermittent HD. Admitted to ARU for ongoing rehab needs. Patient was seen and examined this morning. Doing well. Denies chest pain, chest breath, nausea, vomiting, diarrhea. OBJECTIVE PHYSICAL EXAMINATION: VITAL SIGNS: please see below General: NAD, comfortable HEENT: PERRLA, EOMI, sclerae clear, mild L facial droop Neck: supple, normal ROM, no JVD Respiratory: lungs CTAB, no wheeze, no rales, no crackles CVS: RRR, normal S1, S2, no murmurs Abdo: soft, no masses, no hepatosplenomegaly, BS+, no rebound tenderness Extremities: no edema, pulses 2+ MSK: no joint deformities, normal ROM Neuro: no focal neuro deficits, moving all 4 extremities, CN2-12 intact. Psych: calm, cooperative, AAO x 3 LABORATORY DATA, IMAGING STUDIES, MICROBIOLOGY: Please see below. Echocardiogram: 2D ECHO (09/07/20): 1. Study is of fair technical quality, underlying atrial fibrillation with wideQRS complex and mildly tachycardic rate. 2. Normal LV size with overall preserved LV systolic function. 3. 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 4. Degenerative abnormalities of the mitral valve resulting in trivial insufficiency and trivial stenosis. 5. Suggestive of elevated central venous pressure and at least moderate pulmonary hypertension. 6. Moderate tricuspid insufficiency. DVT prophylaxis ordered?: SCDs, TEDs, warfarin ASSESSMENT AND PLAN:1 yo M with a hx of COPD, CAD, PVD, CKD, prostate cancer, who was transfered from [facility] for higher level of care due to hypotension and acute renal failure, acute decompensated CHF and metabolic acidosis. Patient transfered to ARU for ongoing PT needs. PROBLEMS: Acute renal failure on CKD - oluguiric, but UOP improving, responded to diuretics - HD on hold at this time, may avoid need - nephrology following, removed HD catheter from [place] Anemia - arenesp per nephrology Diastolic CHF - continue with metoprolol - received lasix, now making urine - no plan for HD, catheter removed by nephrology Dr. Anthony. Atrial fibrillation - continue with metoprolol - warfarin - check INR - 1.24, trend hx of BPH, Prostate Ca - finasteride - agree with holding flomax due to labile BPs COPD - not on home O2 - c/w duonebs - hx of pulm HTN Chronic gout 2/2 CKD - c/w allopurinol GI ppx - omeprazole VS, I&O, 24H, Fishbone Vital Signs/I&O Vital Signs Date Time Temp Pulse Resp B/P (MAP) Pulse Ox O2 Delivery O2 Flow Rate FiO2 09/14/20 12:59 95 Room Air 09/14/20 12:15 90 112/61 (78) 09/14/20 05:20 98.1 19 I&O- Last 24 Hours up to 6 AM 09/14/20 06:00 Intake Total 460 ml Output Total 500 ml Balance -40 ml Laboratory Data 24H LABS Laboratory Tests 2 09/14/20 06:34: Immature Granulocyte % (Auto) 0.5, Neutrophils (%) (Auto) 64.1, Lymphocytes (%) (Auto) 17.7L, Monocytes (%) (Auto) 12.8H, Eosinophils (%) (Auto) 4.7H, Basophils (%) (Auto) 0.2, Neutrophils # (Auto) 4.1, Lymphocytes # (Auto) 1.1L, Monocytes # (Auto) 0.8, Eosinophils # (Auto) 0.3, Basophils # (Auto) 0.0, Nucleated Red Blood Cells % (auto) 0.0, Prothrombin Time 15.9H, Prothromb Time International Ratio 1.24, Anion Gap 10, Glomerular Filtration Rate 21.2L, Calcium Level 9.5, Total Bilirubin 0.3, Aspartate Amino Transf (AST/SGOT) 19, Alanine Aminotransferase (ALT/SGPT) 27, Alkaline Phosphatase 94, Total Protein 5.8L, Albumin 2.7L, Albumin/Globulin Ratio 0.9 CBC/BMP Laboratory Tests 09/14/20 06:34 LINDA LONGORIA MD Sep 14, 2020 13:25
[2020-09-14 14:00] VITALS: BP 117/57
--- NOTE | 2020-09-14 15:01 | REP ---
INDICATION: immobility COMPARISON: None. TECHNIQUE: Real time compression and duplex Doppler interrogation of the bilateral lower extremity deep venous system is performed. FINDINGS: Bilaterally, the common femoral, superficial femoral and popliteal veins are fully compressible with transducer pressure and demonstrate normal spontaneous and phasic flow, without evidence of deep venous thrombosis. Left common femoral vein is not well visualized due to overlying bandage material. IMPRESSION: No evidence of deep venous thrombosis of the bilateral lower extremity femoral popliteal venous system. Left common femoral vein is not well visualized due to overlying bandage material. <Electronically signed by Devon Beavers > 09/14/20 [id number]
--- NOTE | 2020-09-14 16:38 | REPVR ---
PROCEDURE INFORMATION: Exam: CT Head Without Contrast Exam date and time: 09/14/2020 4:17 PM Age: 80 years old Clinical indication: Weakness, extremity; Left; Additional info: Left sided weakness TECHNIQUE: Imaging protocol: Computed tomography of the head without contrast. Axial and coronal reformatted images were created and reviewed. Radiation optimization: All CT scans at this facility use at least one of these dose optimization techniques: automated exposure control; mA and/or kV adjustment per patient size (includes targeted exams where dose is matched to clinical indication); or iterative reconstruction. COMPARISON: CT Head without contrast 02/16/2016 10:29 AM FINDINGS: Brain: Patchy and confluent areas of hypoattenuation in the periventricular and subcortical white matter, consistent with chronic small vessel ischemic disease. No CT evidence of acute intracranial hemorrhage or acute territorial infarction. No significant mass effect or midline shift. Basal cisterns patent. Cerebral ventricles: Prominence of the cortical sulci, cisterns and ventricular system, consistent with cerebral and cerebellar volume loss. Bones/joints: No acute osseous abnormality. Paranasal sinuses: Unremarkable. No fluid levels. Mastoid air cells: Grossly unremarkable. Vasculature: Calcific atherosclerotic disease in the cavernous internal carotid arteries, as well as the vertebro-basilar system. Soft tissues: Grossly unremarkable. IMPRESSION: 1. No CT evidence of acute intracranial pathology. 2. Additional findings, as above. Electronically signed by: Carlos Coffey On 09/14/2020 16:37:45 PM
[2020-09-14] MEDS ORDERED: WARFARIN SOD 5MG TAB PO ONE (17:00)
[2020-09-14] MEDS: ACETAMINOPHEN TAB 650MG DOSE (2X325MG) PO PRN ×2 (17:03→21:52)
[2020-09-14 20:00] VITALS: BP 112/60
[2020-09-14] MEDS: SENNA 8.6 MG TAB (SENOKOT) PO SCH (21:00)
[2020-09-14] MEDS: ASPIRIN 81MG ENTERIC TABLET PO SCH (21:52)
[2020-09-14] MEDS: FOLIC ACID 1 MG TAB PO SCH (21:53)
[2020-09-14] MEDS: ROSUVASTATIN 10 MG TAB (CRESTOR) PO SCH (21:53)
[2020-09-14] MEDS: FINASTERIDE 5 MG TAB PO SCH (21:53)
[2020-09-15] MEDS: METOPROLOL TART 12.5 MG PER 1/2 TAB PO SCH ×4 (00:16→17:52)
[2020-09-15] MEDS: IPRATROPIUM 0.5MG/ALBUTEROL 2.5MG INH SOL UD 3ML (DUONEB) NEB SCH ×4 (01:16→19:37)
[2020-09-15 05:18] VITALS: BP 117/66
[2020-09-15 07:05] LABS: INR 1.49; PROTHROMBIN TIME 18.3 SECONDS (12.5-14.3)
[2020-09-15 07:43] LABS: BASO % 0.5 % (0.0-1.0); EOS # 0.3 10^3/uL (0.0-0.5); EOS % 4.5 % (0.0-3.0); HEMATOCRIT 27.2 % (42.0-52.0); HEMOGLOBIN 8.8 g/dl (13.5-17.5); LYMPH # 1.1 10^3/uL (1.5-5.0); LYMPH % 19.4 % (24.0-44.0); MEAN CORPUSCULAR HEMOGLOBIN 31.8 pg (27.0-33.0); MEAN CORPUSCULAR HGB CONC 32.4 g/dl (32.0-36.5); MEAN CORPUSCULAR VOLUME 98.2 fl (80.0-96.0); MONO # 0.7 10^3/uL (0.0-0.8); MONO % 12.6 % (0.0-5.0); NEUTROPHILS # 3.6 10^3/uL (1.5-8.5); NEUTROPHILS % 62.5 % (36.0-66.0); PLATELET COUNT, AUTOMATED 171 10^3/uL (150-450); RED BLOOD COUNT 2.77 10^6/uL (4.30-6.10); WHITE BLOOD COUNT 5.7 10^3/uL (4.0-10.0)
[2020-09-15 08:09] LABS: ALBUMIN 2.7 GM/DL (3.2-5.2); CALCIUM LEVEL 9.9 MG/DL (8.8-10.2); CREATININE FOR GFR 2.84 MG/DL (0.70-1.30); GLOMERULAR FILTRATION RATE 22.9 (>35); PHOSPHORUS LEVEL 3.3 MG/DL (2.5-4.9); POTASSIUM SERUM 3.6 MEQ/L (3.5-5.1)
[2020-09-15] MEDS: DOCUSATE SODIUM 100MG CAPSULE PO SCH ×2 (09:53→20:24)
[2020-09-15] MEDS: LACTOBACILLUS ACIDOPHILUS CAP (BACID) PO SCH ×2 (09:53→20:24)
[2020-09-15] MEDS: OMEPRAZOLE 20 MG CAP PO SCH (09:53)
[2020-09-15] MEDS: NYSTATIN 100,000 UNITS/GM TOPICAL PWD 15 GM TOP SCH ×2 (09:54→20:27)
[2020-09-15] MEDS: FERROUS GLUCONATE 324 MG TAB PO SCH (09:54)
[2020-09-15] MEDS: TORSEMIDE 20 MG TAB PO SCH (09:54)
[2020-09-15] MEDS: ACETAMINOPHEN TAB 650MG DOSE (2X325MG) PO PRN ×2 (09:55→20:24)
[2020-09-15 14:00] VITALS: BP 109/64
[2020-09-15] MEDS: WARFARIN SOD 7.5MG TAB PO SCH (16:20)
[2020-09-15] MEDS ORDERED: WARFARIN SOD 5MG TAB PO SCH (17:00)
--- NOTE | 2020-09-15 18:16 | IPN ---
PROGRESS NOTE DATE: 09/15/2020 SUBJECTIVE: Patient was seen and examined at the bedside today morning in the rehabilitation unit. His left groin dialysis catheter was removed. His renal function is stable. Creatinine is down to 2.8 today. He was also given a dose of intravenous (IV) Lasix yesterday, and he has been started on oral diuretics. OBJECTIVE: Vital signs: Temperature is 97.6 degrees Fahrenheit, blood pressure 109/64, pulse is 95, respiratory rate of 18, saturating 97% on room air. Intake and output: Urine output is not well recorded. He has been having incontinent voids. Weight in the bed scale is 83 kg. PHYSICAL EXAMINATION: GENERAL: Patient is awake, alert, oriented times three, sitting up in the bed in no apparent distress. HEAD AND NECK: Extraocular muscles intact. Pupils equally round and reactive to light. Mucous membranes are moist. Neck is supple. There is no jugular venous distention (JVD). CARDIOVASCULAR: S1, S2, regular rate. Edema 1+ of bilateral lower extremities. RESPIRATORY: Mildly decreased breath sounds at the bases, otherwise no active rales or rhonchi. ABDOMEN: Soft. Positive bowel sounds. Nontender. No organomegaly. MUSCULOSKELETAL: No clubbing or cyanosis. Pulses are 2+. CENTRAL NERVOUS SYSTEM: No focal deficit. Power is 5/5 in all extremities. LABORATORY REVIEW: CBC showed a WBC 5.7, hemoglobin 8.8, platelets are 171. BMP showed sodium 138, potassium 3.6, chloride 104, bicarbonate 25, BUN 46, creatinine is 2.8. Albumin 2.7. CURRENT INPATIENT MEDICATIONS: Patient's medications were all reviewed by myself. No significant change in the medications today as compared with yesterday. He continues to be on torsemide 40 mg by mouth daily. ASSESSMENT AND PLAN: 1. Acute renal failure. Patient is nonoliguric at this time. He is getting daily diuretics. Creatinine is slowly improving. Dialysis catheter was removed. 2. Anemia in the setting of renal failure. Hemoglobin level is 8.8. He continues to be on Aranesp 200 mcg once a week. No need of blood transfusion at this time. 3. Congestive heart failure. Continue daily torsemide 40 mg by mouth daily. Volume status is getting better. Latest echocardiogram done last month showed preserved left ventricular (LV) systolic function, bioprosthetic aortic valve, and moderate pulmonary hypertension.
[2020-09-15 20:20] VITALS: BP 113/72
[2020-09-15] MEDS: ROSUVASTATIN 10 MG TAB (CRESTOR) PO SCH (20:24)
[2020-09-15] MEDS: SENNA 8.6 MG TAB (SENOKOT) PO SCH (20:24)
[2020-09-15] MEDS: FOLIC ACID 1 MG TAB PO SCH (20:24)
[2020-09-15] MEDS: ASPIRIN 81MG ENTERIC TABLET PO SCH (20:24)
[2020-09-15] MEDS: FINASTERIDE 5 MG TAB PO SCH (20:24)
[2020-09-16] MEDS: IPRATROPIUM 0.5MG/ALBUTEROL 2.5MG INH SOL UD 3ML (DUONEB) NEB SCH ×4 (00:57→19:50)
[2020-09-16 06:00] VITALS: BP 124/66
[2020-09-16] MEDS: METOPROLOL TART 12.5 MG PER 1/2 TAB PO SCH ×4 (06:00→17:22)
[2020-09-16] MEDS: ACETAMINOPHEN TAB 650MG DOSE (2X325MG) PO PRN ×2 (06:03→17:25)
[2020-09-16 08:39] LABS: INR 2.02; PROTHROMBIN TIME 23.3 SECONDS (12.5-14.3)
[2020-09-16] MEDS: DOCUSATE SODIUM 100MG CAPSULE PO SCH ×2 (09:27→20:27)
[2020-09-16] MEDS: OMEPRAZOLE 20 MG CAP PO SCH (09:27)
[2020-09-16] MEDS: FERROUS GLUCONATE 324 MG TAB PO SCH (09:27)
[2020-09-16] MEDS: CALCITRIOL 0.25 MCG CAP (S0169) PO SCH (09:27)
[2020-09-16] MEDS: TORSEMIDE 20 MG TAB PO SCH (09:27)
[2020-09-16] MEDS: LACTOBACILLUS ACIDOPHILUS CAP (BACID) PO SCH ×2 (09:27→20:27)
[2020-09-16] MEDS: NYSTATIN 100,000 UNITS/GM TOPICAL PWD 15 GM TOP SCH ×2 (09:28→20:27)
[2020-09-16 14:00] VITALS: BP 114/60
[2020-09-16] MEDS: WARFARIN SOD 7.5MG TAB PO SCH (17:25)
--- NOTE | 2020-09-16 17:47 | IPNPDOC ---
Subjective Date Seen The patient was seen on 09/16/20. Subjective Chief Complaint/HPI Pt and nursing staff deny any overnight events. Pt was in his wheelchair in the hallway and was active during medical encounter. General: Denies: ROS Unobtainable, Chills, Night Sweats, Fatigue, Malaise, Norm al Appetite, Other Symptoms Constitutional: Denies: Chills, Fever, Malaise, Night Sweats, Weakness, Fatigu e, Weight Loss, Lethargy, Other Cardiovascular: Denies: Chest Pain, Palpitations, Orthopnea, Paroxysmal Noc. Dyspnea, Lt Headedness, Other Symptoms Objective Physical Examination General Exam: Positive: Alert, Cooperative, No Acute Distress Eye Exam: Positive: Conjunctiva & lids normal Chest Exam: Positive: Normal air movement, Diminished (in bibasilar lung hurtado); Negative: Rales, Rhonchi Heart Exam: Positive: Rate Normal, Regular Rhythm, Normal S1, Normal S2; Negative: Gallops, Murmurs, Rubs Abdomen Exam: Positive: Normal bowel sounds, Soft; Negative: Tenderness Extremity Exam: Positive: Edema (trace lower extremity edema present) Assessment /Plan Assessment #Acute renal failure: Patient is nonoliguric at this time. Continue daily diuretics. Creatinine is slowly improving. Dialysis catheter was removed. #Anemia in the setting of renal failure: He continues to be on Aranesp 200 mcg once a week. No need of blood transfusion at this time. #Congestive heart failure: Continue daily torsemide 40 mg by mouth daily. Volume status is getting better. Latest echocardiogram done last month showed preserved left ventricular (LV) systolic function, bioprosthetic aortic valve, and moderate pulmonary hypertension. Plan/VTE VTE Prophylaxis Ordered?: Yes (Pt is on Coumadin.) GME ATTESTATION My faculty preceptor for this patient encounter was physically present during the encounter and was fully available. All aspects of the patient interview, examination, medical decision making process, and medical care plan development were reviewed and approved by the faculty preceptor. The faculty preceptor is aware and concurs with the plan as stated in the body of this note and will attest to such by his/her cosignature. VS, I&O, 24H, Fishbone Vital Signs/I&O Vital Signs Date Time Temp Pulse Resp B/P (MAP) Pulse Ox O2 Delivery O2 Flow Rate FiO2 09/16/20 17:22 72 104/60 09/16/20 14:00 99.3 20 96 Room Air I&O- Last 24 Hours up to 6 AM 09/16/20 06:00 Intake Total 635 ml Balance 635 ml Laboratory Data 24H LABS Laboratory Tests 2 09/16/20 08:19: Prothrombin Time 23.3H, Prothromb Time International Ratio 2.02 Attending Note Attending Note VINH requiring HD anemia in CKD CHF cont oral diuretic. cont FABRIZIO. Improving renal function. Alex Anthony DO Sep 16, 2020 17:47 AMBROSE ANTHONY MD Sep 21, 2020 09:09
[2020-09-16 20:00] VITALS: BP 121/72
[2020-09-16] MEDS: ROSUVASTATIN 10 MG TAB (CRESTOR) PO SCH (20:27)
[2020-09-16] MEDS: FOLIC ACID 1 MG TAB PO SCH (20:27)
[2020-09-16] MEDS: FINASTERIDE 5 MG TAB PO SCH (20:27)
[2020-09-16] MEDS: SENNA 8.6 MG TAB (SENOKOT) PO SCH (20:27)
[2020-09-16] MEDS: ASPIRIN 81MG ENTERIC TABLET PO SCH (20:27)
[2020-09-17] MEDS: IPRATROPIUM 0.5MG/ALBUTEROL 2.5MG INH SOL UD 3ML (DUONEB) NEB SCH ×4 (02:00→18:13)
[2020-09-17] MEDS: METOPROLOL TART 12.5 MG PER 1/2 TAB PO SCH ×4 (05:48→17:30)
[2020-09-17] MEDS: ACETAMINOPHEN TAB 650MG DOSE (2X325MG) PO PRN ×2 (05:49→20:24)
[2020-09-17 06:04] VITALS: BP 126/76
[2020-09-17 06:57] LABS: BASO % 0.5 % (0.0-1.0); EOS # 0.3 10^3/uL (0.0-0.5); EOS % 4.7 % (0.0-3.0); HEMATOCRIT 29.1 % (42.0-52.0); HEMOGLOBIN 9.2 g/dl (13.5-17.5); LYMPH # 1.1 10^3/uL (1.5-5.0); LYMPH % 16.4 % (24.0-44.0); MEAN CORPUSCULAR HEMOGLOBIN 31.5 pg (27.0-33.0); MEAN CORPUSCULAR HGB CONC 31.6 g/dl (32.0-36.5); MEAN CORPUSCULAR VOLUME 99.7 fl (80.0-96.0); MONO # 0.6 10^3/uL (0.0-0.8); MONO % 9.4 % (0.0-5.0); NEUTROPHILS # 4.5 10^3/uL (1.5-8.5); NEUTROPHILS % 68.1 % (36.0-66.0); PLATELET COUNT, AUTOMATED 201 10^3/uL (150-450); RED BLOOD COUNT 2.92 10^6/uL (4.30-6.10); WHITE BLOOD COUNT 6.6 10^3/uL (4.0-10.0)
[2020-09-17 07:15] LABS: ALBUMIN 3.1 GM/DL (3.2-5.2); CALCIUM LEVEL 9.8 MG/DL (8.8-10.2); CREATININE FOR GFR 2.76 MG/DL (0.70-1.30); GLOMERULAR FILTRATION RATE 23.7 (>35); PHOSPHORUS LEVEL 3.1 MG/DL (2.5-4.9); POTASSIUM SERUM 4.1 MEQ/L (3.5-5.1)
[2020-09-17 07:21] LABS: INR 2.62; PROTHROMBIN TIME 28.6 SECONDS (12.5-14.3)
[2020-09-17] MEDS: OMEPRAZOLE 20 MG CAP PO SCH (08:25)
[2020-09-17] MEDS: FERROUS GLUCONATE 324 MG TAB PO SCH (08:25)
[2020-09-17] MEDS: DOCUSATE SODIUM 100MG CAPSULE PO SCH ×2 (08:25→20:24)
[2020-09-17] MEDS: LACTOBACILLUS ACIDOPHILUS CAP (BACID) PO SCH ×2 (08:25→20:24)
[2020-09-17] MEDS: TORSEMIDE 20 MG TAB PO SCH ×2 (08:25→17:30)
[2020-09-17] MEDS: NYSTATIN 100,000 UNITS/GM TOPICAL PWD 15 GM TOP SCH ×2 (08:26→20:25)
[2020-09-17 14:00] VITALS: BP 113/61
[2020-09-17] MEDS ORDERED: WARFARIN SOD 5MG TAB PO SCH (17:00)
[2020-09-17 20:00] VITALS: BP 114/61
[2020-09-17] MEDS: ASPIRIN 81MG ENTERIC TABLET PO SCH (20:23)
[2020-09-17] MEDS: SENNA 8.6 MG TAB (SENOKOT) PO SCH (20:24)
[2020-09-17] MEDS: FINASTERIDE 5 MG TAB PO SCH (20:24)
[2020-09-17] MEDS: FOLIC ACID 1 MG TAB PO SCH (20:24)
[2020-09-17] MEDS: ROSUVASTATIN 10 MG TAB (CRESTOR) PO SCH (20:26)
--- NOTE | 2020-09-17 23:55 | IPN ---
NEPHROLOGY PROGRESS NOTE DATE: 09/17/2020 SUBJECTIVE: The patient was seen and examined at the bedside today morning in the Rehab Unit. He is tolerating daily Torsemide dose. Renal function is stable and slightly improving. Creatinine has trended down to 2.7 today. OBJECTIVE: VITAL SIGNS: Temperature is 97.7 degrees Fahrenheit, blood pressure 113/61, pulse is 100, respiratory rate of 19, saturating 97% on room air. INTAKE AND OUTPUT: Urine output is not recorded. Weight in the bed scale is 79.2 kg which is better than yesterday. PHYSICAL EXAMINATION: GENERAL APPEARANCE: The patient is awake, alert, oriented x3, sitting up in the sofa in no apparent distress. HEAD AND NECK: Extraocular muscles intact. Pupils are equally round and reactive to light. Mucous membranes are moist. Neck is supple. There is no jugular venous distention. CARDIOVASCULAR: S1, S2, regular rate. EXTREMITIES: 2+ edema of the bilateral lower extremities. RESPIRATORY: Chest is clear to auscultation bilaterally. Bilaterally currently no rales or rhonchi. ABDOMEN: Soft, positive bowel sounds, nontender, no organomegaly. MUSCULOSKELETAL: No clubbing, no cyanosis. Pulses are 2+. KNIFER UP: No focal deficits. Power is 5/5 in all extremities. LAB REVIEW: CBC showed a white blood cell count of 6.6, hemoglobin 9.2, platelet count 201. BMP showed sodium 140, potassium 4.1, chloride 104, bicarbonate 26, BUN 49, creatinine is 2.7. It was 2.8 yesterday. CURRENT INPATIENT MEDICATIONS: The patient's medications were all reviewed by myself. His Coumadin has been changed to 5 mg p.o. daily. I have increased his Torsemide dose to 40 mg in the morning and 20 mg in the evening. ASSESSMENT AND PLAN: 1. Acute non oliguric renal failure the patient's renal function is recovering. He has not needed dialysis in more than a week. Continue diuretics at this time. 2. Anemia with renal failure - continue current dose of Aranesp. Hemoglobin level is stable and improving. 3. Congestive heart failure - The patient has persistent edema. Torsemide dose has been increased to 40 mg in the morning and 20 mg in the evening.
[2020-09-18] MEDS: IPRATROPIUM 0.5MG/ALBUTEROL 2.5MG INH SOL UD 3ML (DUONEB) NEB SCH ×4 (02:00→20:09)
[2020-09-18] MEDS: METOPROLOL TART 12.5 MG PER 1/2 TAB PO SCH ×5 (05:42→23:27)
[2020-09-18 05:53] VITALS: BP 120/83
[2020-09-18 07:58] LABS: BASO % 0.4 % (0.0-1.0); EOS # 0.4 10^3/uL (0.0-0.5); EOS % 4.4 % (0.0-3.0); HEMATOCRIT 30.3 % (42.0-52.0); HEMOGLOBIN 9.4 g/dl (13.5-17.5); LYMPH % 12.4 % (24.0-44.0); MEAN CORPUSCULAR HEMOGLOBIN 31.1 pg (27.0-33.0); MEAN CORPUSCULAR VOLUME 100.3 fl (80.0-96.0); MONO # 0.6 10^3/uL (0.0-0.8); NEUTROPHILS # 6.1 10^3/uL (1.5-8.5); NEUTROPHILS % 75.4 % (36.0-66.0); PLATELET COUNT, AUTOMATED 217 10^3/uL (150-450); RED BLOOD COUNT 3.02 10^6/uL (4.30-6.10); WHITE BLOOD COUNT 8.1 10^3/uL (4.0-10.0)
[2020-09-18 08:10] LABS: INR 3.14
[2020-09-18 08:12] LABS: BLOOD UREA NITROGEN 48 MG/DL (7-18); CARBON DIOXIDE LEVEL 26 MEQ/L (21-32); CHLORIDE LEVEL 104 MEQ/L (98-107); CREATININE FOR GFR 2.89 MG/DL (0.70-1.30); GLOMERULAR FILTRATION RATE 22.4 (>35); GLUCOSE, FASTING 87 MG/DL (70-100); SODIUM LEVEL 140 MEQ/L (136-145)
[2020-09-18] MEDS: DOCUSATE SODIUM 100MG CAPSULE PO SCH ×2 (08:32→21:32)
[2020-09-18] MEDS: LACTOBACILLUS ACIDOPHILUS CAP (BACID) PO SCH ×2 (08:32→21:32)
[2020-09-18] MEDS: CALCITRIOL 0.25 MCG CAP (S0169) PO SCH (08:32)
[2020-09-18] MEDS: FERROUS GLUCONATE 324 MG TAB PO SCH (08:33)
[2020-09-18] MEDS: TORSEMIDE 20 MG TAB PO SCH ×2 (08:33→17:10)
[2020-09-18] MEDS: ACETAMINOPHEN TAB 650MG DOSE (2X325MG) PO PRN ×3 (08:34→21:33)
[2020-09-18] MEDS: DARBEPOETIN 200MCG/0.4ML *NON-DIALYSIS* SYRINGE (J0881 PER 1MCG) SC SCH (08:37)
[2020-09-18] MEDS: OMEPRAZOLE 20 MG CAP PO SCH (08:37)
[2020-09-18] MEDS: NYSTATIN 100,000 UNITS/GM TOPICAL PWD 15 GM TOP SCH ×2 (08:41→21:33)
[2020-09-18 10:30] LABS: TOTAL PROTEIN 6.4 GM/DL (6.4-8.2)
[2020-09-18 14:00] VITALS: BP 121/71
[2020-09-18] MEDS ORDERED: WARFARIN SOD 2MG TAB PO SCH (17:00)
[2020-09-18 20:00] VITALS: BP 130/65
[2020-09-18] MEDS: ROSUVASTATIN 10 MG TAB (CRESTOR) PO SCH (21:32)
[2020-09-18] MEDS: FINASTERIDE 5 MG TAB PO SCH (21:32)
[2020-09-18] MEDS: FOLIC ACID 1 MG TAB PO SCH (21:33)
[2020-09-18] MEDS: ASPIRIN 81MG ENTERIC TABLET PO SCH (21:33)
[2020-09-18] MEDS: SENNA 8.6 MG TAB (SENOKOT) PO SCH (21:33)
--- NOTE | 2020-09-18 22:22 | IPN ---
NEPHROLOGY PROGRESS NOTE DATE: 09/13/2020 SUBJECTIVE: Lasha was seen and examined this morning in the Rehabilitation Unit working out in the gym, receiving his physical therapy. He denies any shortness of breath with exertion. His legs remain swollen and have wraps on them. He denies any troubles emptying his bladder. PHYSICAL EXAMINATION: VITAL SIGNS: Temperature 97.3, pulse 102, respiratory rate 16, blood pressure 110/76, saturating 98% on room air. INTAKE AND OUTPUT: Intake yesterday was one liter. Urine output was recorded as 6 voids. Weight in the bed scale today is 80 kg. GENERAL APPEARANCE: The patient is seen in the rehabilitation gymnasium, sitting in a chair doing some physical therapy. Elderly male, awake, alert, oriented x3 and in no distress. HEENT: The extraocular muscles are intact. Pupils are round and reactive to light. Mucous membranes are moist. NECK: Supple. There was no jugular venous distention while he was sitting upright. CARDIAC: S1, S2, mild tachycardia, regular rhythm. There is 2+ leg edema that comes up to the knees. There are wrappings on both his legs. LUNGS: Diminished breath sounds at the bases but no crackles or rales. He is comfortable on room air. ABDOMEN: Soft and nontender. I could not appreciate any bladder fullness. MUSCULOSKELETAL: He moves all four extremities on command. There is leg edema as previously mentioned. NEUROLOGICAL: Oriented x3, at baseline mentation. No focal deficits. LABORATORY STUDIES: Today sodium is 140, potassium 4.0, bicarbonate 26, BUN 48, creatinine 2.8, calcium 10.0, hemoglobin 9.4, platelets 217. INPATIENT MEDICATIONS: The patient's medications were reviewed by myself. He is started on 200 mcg subcutaneous Aranesp once weekly. Yesterday his diuretic was increased to Torsemide 40 mg in the morning and 20 mg in the evening. His Coumadin was adjusted by the Primary Team. The remainder medications are unchanged from prior. PROBLEMS: 1. Acute kidney injury on chronic kidney disease stage 4 - The patient's exact baseline renal function is unknown when I reviewed the trend of the creatinine in the [facility] system. Prior to this admission, the last lab was in January of 2019 with a creatinine of 3.7 and then in March 2016 with creatinine of 2.0. This is probably his new baseline renal function at this point. He remains in mild fluid overload and is diuretics were recent up titrated. 2. Anemia related to chronic renal failure - The patient was started on once weekly Aranesp to target hemoglobin between 10 and 11. His iron studies have been adequate. 3. Decompensated congestive heart failure, most likely diastolic congestive heart failure underlying - His last two echocardiograms in 2015 and August of 2020 are reviewed with preserved left ventricular ejection fraction but diastolic dysfunction could not be assessed due to underlying atrial fibrillation. The patient is currently on Torsemide 40 mg in the morning and 20 mg in the evening and I would continue the current regimen. 4. Secondary hyperparathyroidism of renal origin his parathyroid hormone level was 900 last week and he continues on Calcitriol. His phosphorous level is acceptable. 5. Hypertension - blood pressures are very nicely controlled on the current regimen and no change is being made. He is on Metoprolol and diuretic. 6. Atrial fibrillation he is anticoagulated with Coumadin. INR today at 3.1. Coumadin adjusted by the Primary Team and he is rate controlled with beta page.
[2020-09-19] MEDS: IPRATROPIUM 0.5MG/ALBUTEROL 2.5MG INH SOL UD 3ML (DUONEB) NEB SCH ×4 (00:18→20:11)
[2020-09-19 05:20] VITALS: BP 144/71
[2020-09-19] MEDS: METOPROLOL TART 12.5 MG PER 1/2 TAB PO SCH ×3 (05:53→17:27)
[2020-09-19 07:08] LABS: INR 3.38
[2020-09-19] MEDS: DOCUSATE SODIUM 100MG CAPSULE PO SCH ×2 (08:23→21:00)
[2020-09-19] MEDS: NYSTATIN 100,000 UNITS/GM TOPICAL PWD 15 GM TOP SCH ×2 (08:24→21:24)
[2020-09-19] MEDS: FERROUS GLUCONATE 324 MG TAB PO SCH (08:24)
[2020-09-19] MEDS: LACTOBACILLUS ACIDOPHILUS CAP (BACID) PO SCH ×2 (08:24→21:24)
[2020-09-19] MEDS: TORSEMIDE 20 MG TAB PO SCH ×2 (08:24→17:25)
[2020-09-19] MEDS: OMEPRAZOLE 20 MG CAP PO SCH (08:24)
[2020-09-19] MEDS: ACETAMINOPHEN TAB 650MG DOSE (2X325MG) PO PRN ×2 (08:32→17:31)
--- NOTE | 2020-09-19 09:35 | IPNPDOC ---
PM&R Progress Note DATE OF SERVICE: Sep 19, 2020 Freight Claim Investigator Progress Note Subjective: PAtient seen in the gym working on elevating his left arm over his shoulder, stating he is feeling ok, has a bit fo a cough, but nothing new. REVIEW OF SYSTEMS: The following is a completed review of systems and has been reviewed. Review of systems otherwise unremarkable. PAIN: Patient self reports no pain EYES: No recent vision changes EARS, NOSE, & THROAT: No throat pain, or dysphagia, or rhinorrhea CARDIOVASCULAR: Denies chest pain or palpitations PULMONARY: Denies shortness of breath GASTROINTESTINAL: Denies constipation/diarrhea GENITOURINARY: denies dysuria MUSCULOSKELETAL: generalized weakness NEUROLOGICAL:denies tremor, +bilat LE and UE paresthesias HEMATOLOGICAL: denies easy bruising SKIN: left groin catheter PSYCHIATRIC: Unremarkable All other review of systems found to be negative. PHYSICAL EXAMINATION: VITAL SIGNS: Please see below. GENERAL: Pleasant and cooperative. No acute distress. HEENT: PERRL. Extraocular movements intact. mild left facial droop CARDIOVASCULAR: Regular rate and rhythm. No murmurs, rubs, or gallops LUNGS: Clear to auscultation bilaterally. No wheezes. No rhonchi ABDOMEN: Soft, nontender, nondistended. Positive bowel sounds. Normal active bowel sounds NEUROLOGICAL: Alert and oriented times three. Cranial nerves II through XII grossly intact. Sensation grossly diminished to light touch in stocking/glove pattern) EXTREMITIES: RUE elbow flexion/extension 5/5, wrist extension 5/5, mud mill tender 4/5 (finger deformity from old injury), RLE 5/5, Left elbow flexion/extension wrist extension, mud mill tender 3+/5, left hip flexors >3/5 (limited due to groin pain) knee extension 4/5, ankle DF 3+/5 (+) bilat LE edema, LUE edema SKIN: no sacral ulcers ASSESSMENT:80-year-old M with past medical history of COPD, CHF who presents sta tus post oliguric renal failure PLAN: 1. Rehab- PT/OT advance mobility and ADLs, strengthen/stretch/maintain ROM all 4limbs 2. Neuro- patient with left sided weakness and facial droop not acute, CT negative for acute bleed or infarct, patient with stents in his LE so unable to get MRI -peripheral polyneuropathy possibly due to PVD and/or spinal stenosis 3. Cardiac- hx of Afib and aortic valve replacement (bovine) on Warfarin and metoprolol, monitor daily INRs, hx CAD s/p CABG c/u ASA -probable diastolic CHF- daily weights, fluid restrict, renal following closely for fluid management- diuretics per their recs -HLD- c/u statin 4. Resp- hx of COPD, not on home 02, recent ECHO showing moderate pulmonary HTN, supplemental oxygen , c/u duonebs, monitor for infection 5. renal- oliguric ARF improving, plan for HD on hold at this point, renal following closely 6. - hx of BPH, c/u finasteride, flomax restarted for urinary retention per renal- recs appreciated -monitor for hematuria 7. GI ppx- omeprazole 8. DVT ppx- on warfarin -dopplers negative for DVT 9. Pain- tylnenol prn 10. Dispo- 10-05-20 to home, progressing towards goals Allergies Coded Allergies: No Known Allergies (Unverified , 01/28/19) Vital Signs Vital Signs Date Time Temp Pulse Resp B/P (MAP) Pulse Ox O2 Delivery O2 Flow Rate FiO2 09/19/20 05:53 90 144/71 09/19/20 05:20 97.7 16 95 Room Air Laboratory Data Labs 24H Laboratory Tests 2 09/19/20 06:41: Prothrombin Time 35.0H, Prothromb Time International Ratio 3.38 Current Medications Current Medications Current Medications Medications (Trade) Dose Ordered Sig/Anju Route PRN Reason Start Time Stop Time Status Last Admin Dose Admin Acetaminophen (Tylenol Tab) 650 mg Q4HP PRN PO fevrer/MILD PAIN (PS 1-4) 09/13/20 16:15 09/19/20 08:32 Albuterol/ Ipratropium (Duoneb (Ipr 0.5mg/Alb 2.5mg)) 3 ml RQ6H NEB 09/13/20 20:00 09/18/20 20:09 Allopurinol (Zyloprim) 100 mg DAILY PO 09/14/20 09:00 09/13/20 16:56 DC Aspirin (Ecotrin) 81 mg QHS PO 09/13/20 21:00 09/18/20 21:33 Bisacodyl (Dulcolax Suppository) 10 mg DAILYPRN PRN IN CONSTIPATION 09/13/20 16:15 Calcitriol (Rocaltrol) 0.25 mcg Q2D PO 09/14/20 09:00 09/18/20 08:32 Darbepoetin Bharat (Aranesp) 200 mcg Mo@0900 SC 09/18/20 09:00 Docusate Sodium (Colace) 100 mg BID PO 09/13/20 21:00 09/19/20 08:23 Ferrous Gluconate (Fergon) 324 mg DAILY PO 09/14/20 09:00 09/19/20 08:24 Finasteride (Proscar) 5 mg QHS PO 09/13/20 21:00 09/18/20 21:32 Folic Acid (Folic Acid) 1 mg QHS PO 09/13/20 21:00 09/18/20 21:33 Furosemide (Lasix) 40 mg BID@09,17 PO 09/13/20 17:00 09/14/20 11:47 DC Gemfibrozil (Lopid) 600 mg DAILY PO 09/14/20 09:00 09/13/20 16:53 DC Home Med (Med Rec Complete!) ASDIRECTED XX 09/13/20 16:30 09/13/20 16:31 DC Lactobacillus Acidophilus (Bacid) 2 ea BID PO 09/13/20 21:00 09/19/20 08:24 Metoprolol Tartrate (Lopressor) 6.25 mg Q6H PO 09/14/20 12:00 09/19/20 05:53 Metoprolol Tartrate (Lopressor) 12.5 mg BID PO 09/13/20 21:00 09/14/20 12:23 DC Nystatin (Mycostatin Powder, Nystop) 1 dose BID TOP 09/13/20 21:00 09/19/20 08:24 Omeprazole (PriLOSEC) 40 mg DAILY PO 09/14/20 09:00 09/19/20 08:24 Rosuvastatin Calcium (Crestor) 20 mg QHS PO 09/13/20 21:00 09/18/20 21:32 Senna (Senokot) 1 tab QHS PO 09/13/20 21:00 09/18/20 21:33 Tamsulosin HCl (Flomax) 0.4 mg QHS PO 09/13/20 21:00 09/14/20 12:50 DC 09/13/20 22:03 Torsemide (Demadex) 20 mg DAILY@1700 PO 09/17/20 17:00 09/18/20 17:10 Torsemide (Demadex) 40 mg DAILY PO 09/15/20 09:00 09/19/20 08:24 Warfarin Sodium (Coumadin) 2 mg DAILY@17 PO 09/18/20 17:00 09/18/20 17:11 Warfarin Sodium (Coumadin) 5 mg DAILY@17 PO 09/15/20 17:00 09/15/20 07:42 DC Warfarin Sodium (Coumadin) 5 mg DAILY@17 PO 09/17/20 17:00 09/18/20 15:33 DC 09/17/20 17:30 Warfarin Sodium (Coumadin) 7.5 mg DAILY@17 PO 09/15/20 17:00 09/17/20 09:58 DC 09/16/20 17:25 WONG SIMMONS MD Sep 19, 2020 09:35
--- NOTE | 2020-09-19 09:35 | IPNPDOC ---
PM&R Progress Note DATE OF SERVICE: Sep 18, 2020 Three Knife Trimmer Progress Note Subjective: PAtient seen in his room stating he thinks his breathing is better and that his left arm is getting stronger. REVIEW OF SYSTEMS: The following is a completed review of systems and has been reviewed. Review of systems otherwise unremarkable. PAIN: Patient self reports no pain EYES: No recent vision changes EARS, NOSE, & THROAT: No throat pain, or dysphagia, or rhinorrhea CARDIOVASCULAR: Denies chest pain or palpitations PULMONARY: Denies shortness of breath GASTROINTESTINAL: Denies constipation/diarrhea GENITOURINARY: denies dysuria MUSCULOSKELETAL: generalized weakness NEUROLOGICAL:denies tremor, +bilat LE and UE paresthesias HEMATOLOGICAL: denies easy bruising SKIN: left groin catheter PSYCHIATRIC: Unremarkable All other review of systems found to be negative. PHYSICAL EXAMINATION: VITAL SIGNS: Please see below. GENERAL: Pleasant and cooperative. No acute distress. HEENT: PERRL. Extraocular movements intact. mild left facial droop CARDIOVASCULAR: Regular rate and rhythm. No murmurs, rubs, or gallops LUNGS: Clear to auscultation bilaterally. No wheezes. No rhonchi ABDOMEN: Soft, nontender, nondistended. Positive bowel sounds. Normal active bowel sounds NEUROLOGICAL: Alert and oriented times three. Cranial nerves II through XII grossly intact. 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 Rehab- PT/OT advance mobility and ADLs, strengthen/stretch/maintain ROM all 4limbs 2. Neuro- patient with left sided weakness and facial droop not acute, CT negative for acute bleed or infarct, patient with stents in his LE so unable to get MRI -peripheral polyneuropathy possibly due to PVD and/or spinal stenosis 3. Cardiac- hx of Afib and aortic valve replacement (bovine) on Warfarin and metoprolol, monitor daily INRs, hx CAD s/p CABG c/u ASA -probable diastolic CHF- daily weights, fluid restrict, renal following closely for fluid management- diuretics per their recs -HLD- c/u statin 4. Resp- hx of COPD, not on home 02, recent ECHO showing moderate pulmonary HTN, supplemental oxygen , c/u duonebs, monitor for infection 5. renal- oliguric ARF improving, plan for HD on hold at this point, renal following closely 6. - hx of BPH, c/u finasteride, will hold Flomax for now as patient with persistently low BPs and having difficulty administering diuretics needed to treat his fluid overloaded status -monitor for hematuria 7. GI ppx- omeprazole 8. DVT ppx- on warfarin -dopplers negative for DVT 9. Pain- tylnenol prn 10. Dispo- TBD Allergies Coded Allergies: No Known Allergies (Unverified , 01/28/19) Vital Signs Vital Signs Date Time Temp Pulse Resp B/P (MAP) Pulse Ox O2 Delivery O2 Flow Rate FiO2 09/19/20 05:53 90 144/71 09/19/20 05:20 97.7 16 95 Room Air Laboratory Data Labs 24H Laboratory Tests 2 09/19/20 06:41: Prothrombin Time 35.0H, Prothromb Time International Ratio 3.38 Current Medications Current Medications Current Medications Medications (Trade) Dose Ordered Sig/Anju Route PRN Reason Start Time Stop Time Status Last Admin Dose Admin Acetaminophen (Tylenol Tab) 650 mg Q4HP PRN PO fevrer/MILD PAIN (PS 1-4) 09/13/20 16:15 09/19/20 08:32 Albuterol/ Ipratropium (Duoneb (Ipr 0.5mg/Alb 2.5mg)) 3 ml RQ6H NEB 09/13/20 20:00 09/18/20 20:09 Allopurinol (Zyloprim) 100 mg DAILY PO 09/14/20 09:00 09/13/20 16:56 DC Aspirin (Ecotrin) 81 mg QHS PO 09/13/20 21:00 09/18/20 21:33 Bisacodyl (Dulcolax Suppository) 10 mg DAILYPRN PRN NE CONSTIPATION 09/13/20 16:15 Calcitriol (Rocaltrol) 0.25 mcg Q2D PO 09/14/20 09:00 09/18/20 08:32 Darbepoetin Bharat (Aranesp) 200 mcg Mo@0900 SC 09/18/20 09:00 Docusate Sodium (Colace) 100 mg BID PO 09/13/20 21:00 09/19/20 08:23 Ferrous Gluconate (Fergon) 324 mg DAILY PO 09/14/20 09:00 09/19/20 08:24 Finasteride (Proscar) 5 mg QHS PO 09/13/20 21:00 09/18/20 21:32 Folic Acid (Folic Acid) 1 mg QHS PO 09/13/20 21:00 09/18/20 21:33 Furosemide (Lasix) 40 mg BID@09,17 PO 09/13/20 17:00 09/14/20 11:47 DC Gemfibrozil (Lopid) 600 mg DAILY PO 09/14/20 09:00 09/13/20 16:53 DC Home Med (Med Rec Complete!) ASDIRECTED XX 09/13/20 16:30 09/13/20 16:31 DC Lactobacillus Acidophilus (Bacid) 2 ea BID PO 09/13/20 21:00 09/19/20 08:24 Metoprolol Tartrate (Lopressor) 6.25 mg Q6H PO 09/14/20 12:00 09/19/20 05:53 Metoprolol Tartrate (Lopressor) 12.5 mg BID PO 09/13/20 21:00 09/14/20 12:23 DC Nystatin (Mycostatin Powder, Nystop) 1 dose BID TOP 09/13/20 21:00 09/19/20 08:24 Omeprazole (PriLOSEC) 40 mg DAILY PO 09/14/20 09:00 09/19/20 08:24 Rosuvastatin Calcium (Crestor) 20 mg QHS PO 09/13/20 21:00 09/18/20 21:32 Senna (Senokot) 1 tab QHS PO 09/13/20 21:00 09/18/20 21:33 Tamsulosin HCl (Flomax) 0.4 mg QHS PO 09/13/20 21:00 09/14/20 12:50 DC 09/13/20 22:03 Torsemide (Demadex) 20 mg DAILY@1700 PO 09/17/20 17:00 09/18/20 17:10 Torsemide (Demadex) 40 mg DAILY PO 09/15/20 09:00 09/19/20 08:24 Warfarin Sodium (Coumadin) 2 mg DAILY@17 PO 09/18/20 17:00 09/18/20 17:11 Warfarin Sodium (Coumadin) 5 mg DAILY@17 PO 09/15/20 17:00 09/15/20 07:42 DC Warfarin Sodium (Coumadin) 5 mg DAILY@17 PO 09/17/20 17:00 09/18/20 15:33 DC 09/17/20 17:30 Warfarin Sodium (Coumadin) 7.5 mg DAILY@17 PO 09/15/20 17:00 09/17/20 09:58 DC 09/16/20 17:25 WONG SIMMONS MD Sep 19, 2020 09:35
[2020-09-19 11:54] LABS: ALBUMIN 3.73 GM/DL (3.29-5.55); ALBUMIN % 58.3 % (55.8-66.1); ALPHA-1-GLOBULIN % 6.8 % (2.9-4.9); ALPHA-1-GLOBULINS 0.44 GM/DL (0.17-0.41); ALPHA-2-GLOBULINS 0.86 GM/DL (0.42-0.99); ALPHA-2-GLOBULINS % 13.5 % (7.1-11.8); BETA-1-GLOBULINS 0.33 GM/DL (0.28-0.60); BETA-1-GLOBULINS % 5.2 % (4.7-7.2); BETA-2-GLOBULINS 0.33 GM/DL (0.19-0.55); BETA-2-GLOBULINS % 5.2 % (3.2-6.5)
[2020-09-19 14:00] VITALS: BP 118/69
[2020-09-19 20:00] VITALS: BP 80/30
[2020-09-19] MEDS ORDERED: NS 500 ML IV ONE (20:15)
[2020-09-19 21:00] VITALS: BP 102/60
[2020-09-19] MEDS: SENNA 8.6 MG TAB (SENOKOT) PO SCH (21:00)
[2020-09-19] MEDS: FOLIC ACID 1 MG TAB PO SCH (21:24)
[2020-09-19] MEDS: ASPIRIN 81MG ENTERIC TABLET PO SCH (21:24)
[2020-09-19] MEDS: FINASTERIDE 5 MG TAB PO SCH (21:24)
[2020-09-19] MEDS: TAMSULOSIN 0.4 MG CAP PO SCH (21:24)
[2020-09-19] MEDS: ROSUVASTATIN 10 MG TAB (CRESTOR) PO SCH (21:24)
[2020-09-19 22:00] VITALS: BP 124/77
[2020-09-19] MEDS ORDERED: PILL CUTTER 1 EACH XX PRN (22:30)
[2020-09-20] MEDS: IPRATROPIUM 0.5MG/ALBUTEROL 2.5MG INH SOL UD 3ML (DUONEB) NEB SCH ×4 (01:19→20:00)
[2020-09-20 05:26] VITALS: BP 106/66
[2020-09-20 06:46] LABS: BASO % 0.5 % (0.0-1.0); EOS # 0.4 10^3/uL (0.0-0.5); EOS % 5.8 % (0.0-3.0); HEMATOCRIT 28.1 % (42.0-52.0); HEMOGLOBIN 8.8 g/dl (13.5-17.5); LYMPH # 0.9 10^3/uL (1.5-5.0); LYMPH % 15.1 % (24.0-44.0); MEAN CORPUSCULAR HEMOGLOBIN 31.4 pg (27.0-33.0); MEAN CORPUSCULAR HGB CONC 31.3 g/dl (32.0-36.5); MEAN CORPUSCULAR VOLUME 100.4 fl (80.0-96.0); MONO # 0.3 10^3/uL (0.0-0.8); MONO % 5.7 % (0.0-5.0); NEUTROPHILS # 4.4 10^3/uL (1.5-8.5); NEUTROPHILS % 72.4 % (36.0-66.0); PLATELET COUNT, AUTOMATED 170 10^3/uL (150-450)
[2020-09-20 07:12] LABS: CALCIUM LEVEL 9.2 MG/DL (8.8-10.2); CREATININE FOR GFR 2.74 MG/DL (0.70-1.30); GLOMERULAR FILTRATION RATE 23.9 (>35); POTASSIUM SERUM 3.8 MEQ/L (3.5-5.1)
[2020-09-20 07:13] LABS: INR 3.46; PROTHROMBIN TIME 35.6 SECONDS (12.5-14.3)
[2020-09-20] MEDS: DOCUSATE SODIUM 100MG CAPSULE PO SCH ×2 (07:39→20:26)
[2020-09-20] MEDS: LACTOBACILLUS ACIDOPHILUS CAP (BACID) PO SCH ×2 (07:44→20:27)
[2020-09-20] MEDS: TORSEMIDE 20 MG TAB PO SCH ×2 (07:44→16:07)
[2020-09-20] MEDS: OMEPRAZOLE 20 MG CAP PO SCH (07:44)
[2020-09-20] MEDS: FERROUS GLUCONATE 324 MG TAB PO SCH (07:45)
[2020-09-20] MEDS: CALCITRIOL 0.25 MCG CAP (S0169) PO SCH (07:48)
[2020-09-20] MEDS: ACETAMINOPHEN TAB 650MG DOSE (2X325MG) PO PRN ×3 (07:48→20:27)
[2020-09-20] MEDS: NYSTATIN 100,000 UNITS/GM TOPICAL PWD 15 GM TOP SCH ×2 (07:49→20:27)
[2020-09-20 08:07] LABS: FREE KAPPA LIGHT CHAINS SERUM 53.2 mg/L (3.3-19.4); FREE LAMBDA LIGHT CHAINS SERUM 54.4 mg/L (5.7-26.3); KAPPA/LAMBDA RATIO SERUM 0.98 (0.26-1.65)
[2020-09-20] MEDS ORDERED: METOPROLOL TART 25 MG TABLET PO SCH (09:00)
--- NOTE | 2020-09-20 09:27 | IPN ---
PROGRESS NOTE DATE: 09/19/2020 SUBJECTIVE: Lasha is seen and examined this morning in the rehabilitation unit. He has been having moderate urinary retention and required straight catheterization. I started him on Flomax. He reports his physical therapy is going well. He denies dyspnea with exertion. OBJECTIVE: VITAL SIGNS: Temperature 97.4, pulse 109, respiratory rate 18, blood pressure 118/69, saturating 98% on room air. INTAKE AND OUTPUT: Intake yesterday was 810 cc. Urine output was recorded as eight voids. Weight in the bed scale today is 83.9 kg, which is increased from prior. GENERAL: Patient is seen sitting out of bed to the chair, elderly male, awake, alert, bright, articulate, in no distress. HEENT: Extraocular muscles are intact. Pupils are equal, round and reactive to light. Mucous membranes are moist. NECK: Supple. Jugular veins were not distended while he was sitting upright. HEART: Sounds are mildly tachycardic, but regular rhythm. I do not hear a murmur. There is about 2+ leg edema that comes up to the knees. There are wrappings on his legs. The edema seems decreased as compared to prior days. LUNGS: Diminished breath sounds at the base with faint bibasilar crackles, but he is comfortable on room air. ABDOMEN: Soft and nontender. I could not appreciate bladder fullness. MUSCULOSKELETAL: He moves all four extremities on command. There is leg edema as previously mentioned. NEUROLOGIC: He is oriented x3, at baseline mentation. LABORATORY DATA: Today's laboratory studies show white count 8.1, hemoglobin 9.4, platelets 140,000. Potassium 4.0, bicarbonate 26, BUN 48, creatinine 2.8. SPEP no spike. INPATIENT MEDICATIONS: Reviewed by myself. He was started on Flomax 0.4 mg p.o. q.h.s., but remainder of medications are unchanged from prior. PROBLEMS: 1. CKD stage 4: The patient's exact baseline renal function is unknown because of history of recurrent acute kidney injury. When I reviewed the trend of creatinine in the [facility] prior to this admission, the last labs were in January of 2019 with creatinine of 3.7 and then March of 2016 with creatinine 2.0. I feel his current renal function creatinine in the high 2's is probably his new baseline GFR. He is in mild fluid overload, but is tolerating current dose of diuretics very well. 2. Urinary retention: Post void residual bladder scan was ordered and the patient is retaining several hundred cc's of urine. He is now being straight catheterized as needed and I started him as well on Flomax. He is already on Finasteride. 3. Anemia related to chronic renal failure: Continue once weekly Aranesp. Iron stores are adequate and he is on oral iron tablet. 4. Heart failure with preserved ejection fraction: The last two echocardiograms in 2015 and August 2020 show preserved left ventricular ejection fraction, but diastolic dysfunction could not be assessed due to underlying atrial fibrillation. Continue Torsemide 40 mg in the morning and 20 mg in the evening. He does have some mild peripheral edema, but he is saturating well on room air. 5. Atrial fibrillation: The patient is rate controlled with Metoprolol and multiple doses have been held because of low systolic blood pressure. I am going to go ahead and decrease the frequency of Metoprolol to b.i.d. instead of every 6 hours. I feel that will be better for compliance at home as well. He is anticoagulated with Coumadin. 6. Hypertension: Blood pressures are somewhat tightly controlled and beta-page dose has had multiple administrations held because of low blood pressure and hold perimeter and as previously discussed Metoprolol frequency is being decreased to b.i.d.
[2020-09-20 09:30] LABS: PTH INTACT 253.2 PG/ML (18.5-88.0)
--- NOTE | 2020-09-20 11:56 | IPNPDOC ---
PM&R Progress Note DATE OF SERVICE: Sep 20, 2020 Ore Tester Progress Note Subjective: Patient seen in his room, denies fevers or chills, and overall endurance getting better. REVIEW OF SYSTEMS: The following is a completed review of systems and has been reviewed. Review of systems otherwise unremarkable. PAIN: Patient self reports no pain EYES: No recent vision changes EARS, NOSE, & THROAT: No throat pain, or dysphagia, or rhinorrhea CARDIOVASCULAR: Denies chest pain or palpitations PULMONARY: Denies shortness of breath GASTROINTESTINAL: Denies constipation/diarrhea GENITOURINARY: denies dysuria MUSCULOSKELETAL: generalized weakness NEUROLOGICAL:denies tremor, +bilat LE and UE paresthesias HEMATOLOGICAL: denies easy bruising SKIN: left groin catheter PSYCHIATRIC: Unremarkable All other review of systems found to be negative. PHYSICAL EXAMINATION: VITAL SIGNS: Please see below. GENERAL: Pleasant and cooperative. No acute distress. HEENT: PERRL. Extraocular movements intact. mild left facial droop CARDIOVASCULAR: Regular rate and rhythm. No murmurs, rubs, or gallops LUNGS: Clear to auscultation bilaterally. No wheezes. No rhonchi ABDOMEN: Soft, nontender, nondistended. Positive bowel sounds. Normal active bowel sounds NEUROLOGICAL: Alert and oriented times three. Cranial nerves II through XII grossly intact. 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 Rehab- PT/OT advance mobility and ADLs, strengthen/stretch/maintain ROM all 4limbs 2. Neuro- patient with left sided weakness and facial droop not acute, CT negative for acute bleed or infarct, patient with stents in his LE so unable to get MRI -peripheral polyneuropathy possibly due to PVD and/or spinal stenosis 3. Cardiac- hx of Afib and aortic valve replacement (bovine) on Warfarin and metoprolol, monitor daily INRs, hx CAD s/p CABG c/u ASA -probable diastolic CHF- daily weights, fluid restrict, renal following closely for fluid management- diuretics per their recs -HLD- c/u statin 4. Resp- hx of COPD, not on home 02, recent ECHO showing moderate pulmonary HTN, supplemental oxygen , c/u duonebs, monitor for infection 5. renal- oliguric ARF improving, plan for HD on hold at this point, renal following closely 6. - hx of BPH, c/u finasteride, flomax restarted for urinary retention per renal- recs appreciated -monitor for hematuria 7. GI ppx- omeprazole 8. DVT ppx- on warfarin -dopplers negative for DVT 9. Pain- tylnenol prn 10. Dispo- 10-05-20 to home, progressing towards goals Allergies Coded Allergies: No Known Allergies (Unverified , 01/28/19) Vital Signs Vital Signs Date Time Temp Pulse Resp B/P (MAP) Pulse Ox O2 Delivery O2 Flow Rate FiO2 09/20/20 07:39 102 106/66 09/20/20 05:26 97.6 17 94 Room Air Laboratory Data CBC/BMP Laboratory Tests 09/20/20 06:31 Labs 24H Laboratory Tests 2 09/20/20 06:31: Immature Granulocyte % (Auto) 0.5, Neutrophils (%) (Auto) 72.4H, Lymphocytes (%) (Auto) 15.1L, Monocytes (%) (Auto) 5.7H, Eosinophils (%) (Auto) 5.8H, Basophils (%) (Auto) 0.5, Neutrophils # (Auto) 4.4, Lymphocytes # (Auto) 0.9L, Monocytes # (Auto) 0.3, Eosinophils # (Auto) 0.4, Basophils # (Auto) 0.0, Nucleated Red Blood Cells % (auto) 0.0, Prothrombin Time 35.6H, Prothromb Time International Ratio 3.46, Anion Gap 11, Glomerular Filtration Rate 23.9L, Calcium Level 9.2, Parathyroid Hormone (Intact) 253.2H Current Medications Current Medications Current Medications Medications (Trade) Dose Ordered Sig/Anju Route PRN Reason Start Time Stop Time Status Last Admin Dose Admin Acetaminophen (Tylenol Tab) 650 mg Q4HP PRN PO fevrer/MILD PAIN (PS 1-4) 09/13/20 16:15 09/20/20 07:48 Albuterol/ Ipratropium (Duoneb (Ipr 0.5mg/Alb 2.5mg)) 3 ml RQ6H NEB 09/13/20 20:00 09/20/20 08:01 Allopurinol (Zyloprim) 100 mg DAILY PO 09/14/20 09:00 09/13/20 16:56 DC Aspirin (Ecotrin) 81 mg QHS PO 09/13/20 21:00 09/19/20 21:24 Bisacodyl (Dulcolax Suppository) 10 mg DAILYPRN PRN [place] CONSTIPATION 09/13/20 16:15 Calcitriol (Rocaltrol) 0.25 mcg Q2D PO 09/14/20 09:00 09/20/20 07:48 Darbepoetin Bharat (Aranesp) 200 mcg Mo@0900 SC 09/18/20 09:00 Docusate Sodium (Colace) 100 mg BID PO 09/13/20 21:00 09/19/20 08:23 Ferrous Gluconate (Fergon) 324 mg DAILY PO 09/14/20 09:00 09/20/20 07:45 Finasteride (Proscar) 5 mg QHS PO 09/13/20 21:00 09/19/20 21:24 Folic Acid (Folic Acid) 1 mg QHS PO 09/13/20 21:00 09/19/20 21:24 Furosemide (Lasix) 40 mg BID@09,17 PO 09/13/20 17:00 09/14/20 11:47 DC Gemfibrozil (Lopid) 600 mg DAILY PO 09/14/20 09:00 09/13/20 16:53 DC Home Med (Med Rec Complete!) ASDIRECTED XX 09/13/20 16:30 09/13/20 16:31 DC Lactobacillus Acidophilus (Bacid) 2 ea BID PO 09/13/20 21:00 09/20/20 07:44 Metoprolol Tartrate (Lopressor) 6.25 mg BID PO 09/20/20 09:00 09/20/20 10:07 DC Metoprolol Tartrate (Lopressor) 6.25 mg BID PO 09/20/20 21:00 Metoprolol Tartrate (Lopressor) 6.25 mg Q6H PO 09/14/20 12:00 09/19/20 22:10 DC 09/19/20 17:27 Metoprolol Tartrate (Lopressor) 12.5 mg BID PO 09/13/20 21:00 09/14/20 12:23 DC Nystatin (Mycostatin Powder, Nystop) 1 dose BID TOP 09/13/20 21:00 09/20/20 07:49 Omeprazole (PriLOSEC) 40 mg DAILY PO 09/14/20 09:00 09/20/20 07:44 Rosuvastatin Calcium (Crestor) 20 mg QHS PO 09/13/20 21:00 09/19/20 21:24 Senna (Senokot) 1 tab QHS PO 09/13/20 21:00 09/18/20 21:33 Tamsulosin HCl (Flomax) 0.4 mg QHS PO 09/13/20 21:00 09/14/20 12:50 DC 09/13/20 22:03 Tamsulosin HCl (Flomax) 0.4 mg QHS PO 09/19/20 21:00 09/19/20 21:24 Torsemide (Demadex) 20 mg DAILY@1700 PO 09/17/20 17:00 09/19/20 17:25 Torsemide (Demadex) 40 mg DAILY PO 09/15/20 09:00 09/20/20 07:44 Warfarin Sodium (Coumadin) 2 mg DAILY@17 PO 09/18/20 17:00 Hold 09/18/20 17:11 Warfarin Sodium (Coumadin) 5 mg DAILY@17 PO 09/15/20 17:00 09/15/20 07:42 DC Warfarin Sodium (Coumadin) 5 mg DAILY@17 PO 09/17/20 17:00 09/18/20 15:33 DC 09/17/20 17:30 Warfarin Sodium (Coumadin) 7.5 mg DAILY@17 PO 09/15/20 17:00 09/17/20 09:58 DC 09/16/20 17:25 WONG SIMMONS MD Sep 20, 2020 11:56
[2020-09-20 14:00] VITALS: BP 110/67
--- NOTE | 2020-09-20 16:27 | IPN ---
PROGRESS NOTE DATE: 09/20/2020 SUBJECTIVE: Lasha is seen and examined this morning at the bedside. I note that he received a 500 mL bolus of normal saline yesterday when his blood pressure was recorded as 80/30. I have reduced the frequency of his metoprolol that he takes for rate control. The patient is seen sitting out of bed to the chair. He denies any complaints. Denies any dizziness, lightheadedness, or shortness of breath. Also denies dyspnea with exertion. State his leg edema is going down. Continues to have urinary retention requiring straight catheterization. Vital signs: Temperature 96.9, pulse 104, respiratory rate 18, blood pressure 110/67, saturating 97% on room air. Intake yesterday was not fully recorded. Weight in the bed scale today is 83.7 kg. General: Patient is seen sitting out of bed to the chair, awake, alert, oriented, elderly male in no apparent distress. Extraocular muscles are intact. Pupils are equal, round, and reactive to light. Mucous membranes are moist. Neck is supple. Jugular veins were not distended while he was sitting upright. Heart sounds are irregular and mildly tachycardic. His peripheral edema is much decreased otherwise, about 1+, and it comes up to the knees. There are no wraps on his legs today. Abdomen soft and nontender. Genitourinary: I could not appreciate a full bladder. Lungs show diminished breath sounds at the bases. Neurologic, he is oriented times three at baseline mentation. Today's laboratory studies show white count 6.0, hemoglobin 8.8, platelets 170. Sodium 145, potassium 3.8, bicarbonate 26, BUN 53, creatinine 2.7. PTH 253. INPATIENT MEDICATIONS: I decreased the frequency of metoprolol from 6.25 mg four times a day down to 6.25 mg twice a day with generous holding parameters. He received normal saline 500 mL bolus overnight. His Coumadin is on hold. Remainder of medications is unchanged from prior. PROBLEMS: 1. Chronic kidney disease (CKD), stage IV. This is his new baseline renal function. He is mildly hypervolemic, but his volume status is slowly improving, and he continues on torsemide 40 mg in the morning, 20 mg in the evening. His electrolytes are acceptable. 2. Urinary retention. Patient continues to require intermittent straight catheterization, and he needs to have continued postvoid residual bladder scan, and he is now on Flomax along with finasteride. 3. Anemia related to chronic renal failure. Continue once weekly Aranesp. I would give him a transfusion if hemoglobin goes less than 8. His iron stores were adequate, and he is on an oral iron tablet. 4. Diastolic congestive heart failure. Echocardiogram in 2015 and August 2020 show preserved left ventricular ejection fraction, but diastolic dysfunction could not be assessed due to underlying atrial fibrillation. He is on mild hypervolemia. Continue torsemide 40 mg in the morning and torsemide 20 mg in the evening. His peripheral edema is decreasing, and I am not going to escalate his diuretics at this time because of borderline blood pressure. 5. Atrial fibrillation. The patient is rate controlled with metoprolol. Heart rate is mostly in the 90s and up to the low 100s. I decreased the metoprolol to twice a day because of borderline hypotension, and there are hold parameters written as well, and that will be better for compliance at home versus the every 6 hours that he was previously written for. His INR is supratherapeutic, and Coumadin is held.
[2020-09-20 20:00] VITALS: BP 108/62
[2020-09-20] MEDS: METOPROLOL TART 12.5 MG PER 1/2 TAB PO SCH (20:22)
[2020-09-20] MEDS: ASPIRIN 81MG ENTERIC TABLET PO SCH (20:26)
[2020-09-20] MEDS: ROSUVASTATIN 10 MG TAB (CRESTOR) PO SCH (20:26)
[2020-09-20] MEDS: SENNA 8.6 MG TAB (SENOKOT) PO SCH (20:27)
[2020-09-20] MEDS: TAMSULOSIN 0.4 MG CAP PO SCH (20:27)
[2020-09-20] MEDS: FOLIC ACID 1 MG TAB PO SCH (20:27)
[2020-09-20] MEDS: FINASTERIDE 5 MG TAB PO SCH (20:27)
[2020-09-21] MEDS: IPRATROPIUM 0.5MG/ALBUTEROL 2.5MG INH SOL UD 3ML (DUONEB) NEB SCH ×4 (02:00→20:00)
[2020-09-21 06:00] VITALS: BP 123/75
[2020-09-21 08:32] LABS: INR 2.75; PROTHROMBIN TIME 29.7 SECONDS (12.5-14.3)
[2020-09-21] MEDS: OMEPRAZOLE 20 MG CAP PO SCH (09:21)
[2020-09-21] MEDS: FERROUS GLUCONATE 324 MG TAB PO SCH (09:22)
[2020-09-21] MEDS: LACTOBACILLUS ACIDOPHILUS CAP (BACID) PO SCH ×2 (09:22→20:20)
[2020-09-21] MEDS: TORSEMIDE 20 MG TAB PO SCH ×2 (09:22→17:28)
[2020-09-21] MEDS: METOPROLOL TART 12.5 MG PER 1/2 TAB PO SCH ×2 (09:22→20:21)
[2020-09-21] MEDS: DOCUSATE SODIUM 100MG CAPSULE PO SCH ×2 (09:23→20:20)
[2020-09-21] MEDS: NYSTATIN 100,000 UNITS/GM TOPICAL PWD 15 GM TOP SCH ×2 (09:23→20:22)
--- NOTE | 2020-09-21 10:03 | IPNPDOC ---
PM&R Progress Note DATE OF SERVICE: Sep 21, 2020 Manager Switch Progress Note Subjective: Patient states he is feeling good and thinks tehrapy is going well. he is reporting he feels less swollen and his breathing continues to improve. REVIEW OF SYSTEMS: The following is a completed review of systems and has been reviewed. Review of systems otherwise unremarkable. PAIN: Patient self reports no pain EYES: No recent vision changes EARS, NOSE, & THROAT: No throat pain, or dysphagia, or rhinorrhea CARDIOVASCULAR: Denies chest pain or palpitations PULMONARY: Denies shortness of breath GASTROINTESTINAL: Denies constipation/diarrhea GENITOURINARY: denies dysuria MUSCULOSKELETAL: generalized weakness NEUROLOGICAL:denies tremor, +bilat LE and UE paresthesias HEMATOLOGICAL: denies easy bruising SKIN: left groin catheter PSYCHIATRIC: Unremarkable All other review of systems found to be negative. PHYSICAL EXAMINATION: VITAL SIGNS: Please see below. GENERAL: Pleasant and cooperative. No acute distress. HEENT: PERRL. Extraocular movements intact. mild left facial droop CARDIOVASCULAR: Regular rate and rhythm. No murmurs, rubs, or gallops LUNGS: Clear to auscultation bilaterally. No wheezes. No rhonchi ABDOMEN: Soft, nontender, nondistended. Positive bowel sounds. Normal active bowel sounds NEUROLOGICAL: Alert and oriented times three. Cranial nerves II through XII grossly intact. Sensation grossly diminished to light touch in stocking/glove pattern) EXTREMITIES: RUE elbow flexion/extension 5/5, wrist extension 5/5, bessemer bottom maker 4/5 (finger deformity from old injury), RLE 5/5, Left elbow flexion/extension wrist extension, bessemer bottom maker 3+/5, left hip flexors >3/5 (limited due to groin pain) knee extension 4/5, ankle DF 3+/5 (+) bilat LE edema, LUE edema SKIN: no sacral ulcers ASSESSMENT:80-year-old M with past medical history of COPD, CHF who presents status post oliguric renal failure PLAN: 1. Rehab- PT/OT advance mobility and ADLs, strengthen/stretch/maintain ROM all 4limbs 2. Neuro- patient with left sided weakness and facial droop not acute, CT negative for acute bleed or infarct, patient with stents in his LE so unable to get MRI -peripheral polyneuropathy possibly due to PVD and/or spinal stenosis 3. Cardiac- hx of Afib and aortic valve replacement (bovine) on Warfarin and metoprolol, monitor daily INRs, hx CAD s/p CABG c/u ASA -probable diastolic CHF- daily weights, fluid restrict, renal following closely for fluid management- diuretics per their recs -HLD- c/u statin 4. Resp- hx of COPD, not on home 02, recent ECHO showing moderate pulmonary HTN, supplemental oxygen , c/u duonebs, monitor for infection 5. renal- oliguric ARF improving, plan for HD on hold at this point, renal following closely 6. - hx of BPH, c/u finasteride, flomax restarted for urinary retention per renal- recs appreciated -monitor for hematuria 7. GI ppx- omeprazole 8. DVT ppx- on warfarin -dopplers negative for DVT 9. Pain- tylnenol prn 10. Dispo- 10-05-20 to home, progressing towards goals Allergies Coded Allergies: No Known Allergies (Unverified , 01/28/19) Vital Signs Vital Signs Date Time Temp Pulse Resp B/P (MAP) Pulse Ox O2 Delivery O2 Flow Rate FiO2 09/21/20 06:00 98.1 98 18 123/75 (91) 99 Room Air Laboratory Data Labs 24H Laboratory Tests 2 09/21/20 07:33: Prothrombin Time 29.7H, Prothromb Time International Ratio 2.75 Current Medications Current Medications Current Medications Medications (Trade) Dose Ordered Sig/Anju Route PRN Reason Start Time Stop Time Status Last Admin Dose Admin Acetaminophen (Tylenol Tab) 650 mg Q4HP PRN PO fevrer/MILD PAIN (PS 1-4) 09/13/20 16:15 09/20/20 20:27 Albuterol/ Ipratropium (Duoneb (Ipr 0.5mg/Alb 2.5mg)) 3 ml RQ6H NEB 09/13/20 20:00 09/21/20 07:46 Allopurinol (Zyloprim) 100 mg DAILY PO 09/14/20 09:00 09/13/20 16:56 DC Aspirin (Ecotrin) 81 mg QHS PO 09/13/20 21:00 09/20/20 20:26 Bisacodyl (Dulcolax Suppository) 10 mg DAILYPRN PRN [place] CONSTIPATION 09/13/20 16:15 Calcitriol (Rocaltrol) 0.25 mcg Q2D PO 09/14/20 09:00 09/20/20 07:48 Darbepoetin Bharat (Aranesp) 200 mcg Mo@0900 SC 09/18/20 09:00 Docusate Sodium (Colace) 100 mg BID PO 09/13/20 21:00 09/21/20 09:23 Ferrous Gluconate (Fergon) 324 mg DAILY PO 09/14/20 09:00 09/21/20 09:22 Finasteride (Proscar) 5 mg QHS PO 09/13/20 21:00 09/20/20 20:27 Folic Acid (Folic Acid) 1 mg QHS PO 09/13/20 21:00 09/20/20 20:27 Furosemide (Lasix) 40 mg BID@,17 PO 09/13/20 17:00 09/14/20 11:47 DC Gemfibrozil (Lopid) 600 mg DAILY PO 09/14/20 09:00 09/13/20 16:53 DC Home Med (Med Rec Complete!) ASDIRECTED XX 09/13/20 16:30 09/13/20 16:31 DC Lactobacillus Acidophilus (Bacid) 2 ea BID PO 09/13/20 21:00 09/21/20 09:22 Metoprolol Tartrate (Lopressor) 6.25 mg BID PO 09/20/20 09:00 09/20/20 10:07 DC Metoprolol Tartrate (Lopressor) 6.25 mg BID PO 09/20/20 21:00 09/21/20 09:22 Metoprolol Tartrate (Lopressor) 6.25 mg Q6H PO 09/14/20 12:00 09/19/20 22:10 DC 09/19/20 17:27 Metoprolol Tartrate (Lopressor) 12.5 mg BID PO 09/13/20 21:00 09/14/20 12:23 DC Nystatin (Mycostatin Powder, Nystop) 1 dose BID TOP 09/13/20 21:00 09/21/20 09:23 Omeprazole (PriLOSEC) 40 mg DAILY PO 09/14/20 09:00 09/21/20 09:21 Rosuvastatin Calcium (Crestor) 20 mg QHS PO 09/13/20 21:00 09/20/20 20:26 Senna (Senokot) 1 tab QHS PO 09/13/20 21:00 09/20/20 20:27 Tamsulosin HCl (Flomax) 0.4 mg QHS PO 09/13/20 21:00 09/14/20 12:50 DC 09/13/20 22:03 Tamsulosin HCl (Flomax) 0.4 mg QHS PO 09/19/20 21:00 09/20/20 20:27 Torsemide (Demadex) 20 mg DAILY@1700 PO 09/17/20 17:00 09/20/20 16:07 Torsemide (Demadex) 40 mg DAILY PO 09/15/20 09:00 09/21/20 09:22 Warfarin Sodium (Coumadin) 2 mg DAILY@17 PO 09/18/20 17:00 09/20/20 11:56 DC 09/18/20 17:11 Warfarin Sodium (Coumadin) 5 mg DAILY@17 PO 09/15/20 17:00 09/15/20 07:42 DC Warfarin Sodium (Coumadin) 5 mg DAILY@17 PO 09/17/20 17:00 09/18/20 15:33 DC 09/17/20 17:30 Warfarin Sodium (Coumadin) 7.5 mg DAILY@17 PO 09/15/20 17:00 09/17/20 09:58 DC 09/16/20 17:25 WONG SIMMONS MD Sep 21, 2020 10:03
[2020-09-21 14:00] VITALS: BP 119/74
[2020-09-21] MEDS: ACETAMINOPHEN TAB 650MG DOSE (2X325MG) PO PRN (17:28)
[2020-09-21] MEDS: WARFARIN SOD 2MG TAB PO SCH (17:28)
[2020-09-21 20:00] VITALS: BP 112/66
[2020-09-21] MEDS: TAMSULOSIN 0.4 MG CAP PO SCH (20:20)
[2020-09-21] MEDS: SENNA 8.6 MG TAB (SENOKOT) PO SCH (20:21)
[2020-09-21] MEDS: ASPIRIN 81MG ENTERIC TABLET PO SCH (20:21)
[2020-09-21] MEDS: ROSUVASTATIN 10 MG TAB (CRESTOR) PO SCH (20:21)
[2020-09-21] MEDS: FOLIC ACID 1 MG TAB PO SCH (20:21)
[2020-09-21] MEDS: FINASTERIDE 5 MG TAB PO SCH (20:21)
[2020-09-22] MEDS: IPRATROPIUM 0.5MG/ALBUTEROL 2.5MG INH SOL UD 3ML (DUONEB) NEB SCH ×4 (02:00→20:00)
[2020-09-22 06:00] VITALS: BP 139/80
[2020-09-22 06:40] LABS: BASO % 0.3 % (0.0-1.0); EOS # 0.3 10^3/uL (0.0-0.5); EOS % 4.3 % (0.0-3.0); HEMATOCRIT 28.3 % (42.0-52.0); HEMOGLOBIN 8.7 g/dl (13.5-17.5); LYMPH # 0.8 10^3/uL (1.5-5.0); LYMPH % 12.1 % (24.0-44.0); MEAN CORPUSCULAR HGB CONC 30.7 g/dl (32.0-36.5); MEAN CORPUSCULAR VOLUME 100.7 fl (80.0-96.0); MONO # 0.4 10^3/uL (0.0-0.8); MONO % 6.6 % (0.0-5.0); NEUTROPHILS # 5.1 10^3/uL (1.5-8.5); NEUTROPHILS % 76.4 % (36.0-66.0); PLATELET COUNT, AUTOMATED 170 10^3/uL (150-450); RED BLOOD COUNT 2.81 10^6/uL (4.30-6.10); WHITE BLOOD COUNT 6.7 10^3/uL (4.0-10.0)
[2020-09-22 06:51] LABS: INR 2.68; PROTHROMBIN TIME 29.1 SECONDS (12.5-14.3)
[2020-09-22 07:08] LABS: CALCIUM LEVEL 9.9 MG/DL (8.8-10.2); CREATININE FOR GFR 2.58 MG/DL (0.70-1.30); GLOMERULAR FILTRATION RATE 25.6 (>35); POTASSIUM SERUM 3.5 MEQ/L (3.5-5.1)
[2020-09-22] MEDS: CALCITRIOL 0.25 MCG CAP (S0169) PO SCH (08:16)
[2020-09-22] MEDS: TORSEMIDE 20 MG TAB PO SCH ×2 (08:16→16:04)
[2020-09-22] MEDS: FERROUS GLUCONATE 324 MG TAB PO SCH (08:16)
[2020-09-22] MEDS: LACTOBACILLUS ACIDOPHILUS CAP (BACID) PO SCH ×2 (08:16→20:42)
[2020-09-22] MEDS: ACETAMINOPHEN TAB 650MG DOSE (2X325MG) PO PRN ×2 (08:16→16:04)
[2020-09-22] MEDS: METOPROLOL TART 12.5 MG PER 1/2 TAB PO SCH ×2 (08:16→20:42)
[2020-09-22] MEDS: OMEPRAZOLE 20 MG CAP PO SCH (08:17)
[2020-09-22] MEDS: DOCUSATE SODIUM 100MG CAPSULE PO SCH ×2 (08:17→20:42)
[2020-09-22] MEDS: NYSTATIN 100,000 UNITS/GM TOPICAL PWD 15 GM TOP SCH ×2 (08:17→20:43)
--- NOTE | 2020-09-22 10:30 | IPNPDOC ---
PM&R Progress Note DATE OF SERVICE: Sep 22, 2020 Count Team Clerk Progress Note Subjective: Patient reporting he had the urge to urinate today but was not able to urinate a lot. REVIEW OF SYSTEMS: The following is a completed review of systems and has been reviewed. Review of systems otherwise unremarkable. PAIN: Patient self reports no pain EYES: No recent vision changes EARS, NOSE, & THROAT: No throat pain, or dysphagia, or rhinorrhea CARDIOVASCULAR: Denies chest pain or palpitations PULMONARY: Denies shortness of breath GASTROINTESTINAL: Denies constipation/diarrhea GENITOURINARY: denies dysuria MUSCULOSKELETAL: generalized weakness NEUROLOGICAL:denies tremor, +bilat LE and UE paresthesias HEMATOLOGICAL: denies easy bruising SKIN: left groin catheter PSYCHIATRIC: Unremarkable All other review of systems found to be negative. PHYSICAL EXAMINATION: VITAL SIGNS: Please see below. GENERAL: Pleasant and cooperative. No acute distress. HEENT: PERRL. Extraocular movements intact. mild left facial droop CARDIOVASCULAR: Regular rate and rhythm. No murmurs, rubs, or gallops LUNGS: Clear to auscultation bilaterally. No wheezes. No rhonchi ABDOMEN: Soft, nontender, nondistended. Positive bowel sounds. Normal active bowel sounds NEUROLOGICAL: Alert and oriented times three. Cranial nerves II through XII grossly intact. Sensation grossly diminished to light touch in stocking/glove pattern) EXTREMITIES: RUE elbow flexion/extension 5/5, wrist extension 5/5, supercharger mechanic 4/5 (finger deformity from old injury), RLE 5/5, Left elbow flexion/extension wrist extension, supercharger mechanic 3+/5, left hip flexors >3/5 (limited due to groin pain) knee ex tension 4/5, ankle DF 3+/5 (+) bilat LE edema, LUE edema SKIN: no sacral ulcers ASSESSMENT:80-year-old M with past medical history of COPD, CHF who presents status post oliguric renal failure PLAN: 1. Rehab- PT/OT advance mobility and ADLs, strengthen/stretch/maintain ROM all 4limbs 2. Neuro- patient with left sided weakness and facial droop not acute, CT negative for acute bleed or infarct, patient with stents in his LE so unable to get MRI -peripheral polyneuropathy possibly due to PVD and/or spinal stenosis 3. Cardiac- hx of Afib and aortic valve replacement (bovine) on Warfarin and metoprolol, monitor daily INRs, hx CAD s/p CABG c/u ASA -probable diastolic CHF- daily weights, fluid restrict, renal following closely for fluid management- diuretics per their recs -HLD- c/u statin 4. Resp- hx of COPD, not on home 02, recent ECHO showing moderate pulmonary HTN, supplemental oxygen , c/u duonebs, monitor for infection 5. renal- oliguric ARF improving, plan for HD on hold at this point, renal following closely 6. - hx of BPH, c/u finasteride, flomax restarted for urinary retention per renal- recs appreciated, patient stating he thinks he is having the urge and was able to void a little today -monitor for hematuria 7. GI ppx- omeprazole 8. DVT ppx- on warfarin -dopplers negative for DVT 9. Pain- tylnenol prn 10. Dispo- 10-05-20 to home, progressing towards goals Allergies Coded Allergies: No Known Allergies (Unverified , 01/28/19) Vital Signs Vital Signs Date Time Temp Pulse Resp B/P (MAP) Pulse Ox O2 Delivery O2 Flow Rate FiO2 09/22/20 08:16 78 139/80 09/22/20 06:00 97.1 18 96 Room Air Laboratory Data CBC/BMP Laboratory Tests 09/22/20 06:23 Labs 24H Laboratory Tests 2 09/21/20 11:33: Urine Color YELLOW, Urine Appearance HAZY, Urine pH 5.0, Urine Specific [place] 1.009, Urine Protein NEGATIVE, Urine Glucose (UA) NEGATIVE, Urine Ketones NEGATIVE, Urine Blood 3+H, Urine Nitrite NEGATIVE, Urine Bilirubin NEGATIVE, Urine Urobilinogen 0.2, Urine Leukocyte Esterase NEGATIVE, Urine WBC (Auto) 5H, Urine RBC (Auto) 35H, Urine Hyaline Casts (Auto) 0, Urine Bacteria (Auto) 1+H, Urine Squamous Epithelial Cells 0, Urine Mucus (Auto) SMALL, Urine Sperm (Auto) 09/22/20 06:23: Immature Granulocyte % (Auto) 0.3, Neutrophils (%) (Auto) 76.4H, Lymphocytes (%) (Auto) 12.1L, Monocytes (%) (Auto) 6.6H, Eosinophils (%) (Auto) 4.3H, Basophils (%) (Auto) 0.3, Neutrophils # (Auto) 5.1, Lymphocytes # (Auto) 0.8L, Monocytes # (Auto) 0.4, Eosinophils # (Auto) 0.3, Basophils # (Auto) 0.0, Nucleated Red Blood Cells % (auto) 0.0, Prothrombin Time 29.1H, Prothromb Time International Ratio 2.68, Anion Gap 8, Glomerular Filtration Rate 25.6L, Calcium Level 9.9 Current Medications Current Medications Current Medications Medications (Trade) Dose Ordered Sig/Anju Route PRN Reason Start Time Stop Time Status Last Admin Dose Admin Acetaminophen (Tylenol Tab) 650 mg Q4HP PRN PO fevrer/MILD PAIN (PS 1-4) 09/13/20 16:15 09/22/20 08:16 Albuterol/ Ipratropium (Duoneb (Ipr 0.5mg/Alb 2.5mg)) 3 ml RQ6H NEB 09/13/20 20:00 09/21/20 07:46 Allopurinol (Zyloprim) 100 mg DAILY PO 09/14/20 09:00 09/13/20 16:56 DC Aspirin (Ecotrin) 81 mg QHS PO 09/13/20 21:00 09/21/20 20:21 Bisacodyl (Dulcolax Suppository) [address] CONSTIPATION 09/13/20 16:15 Calcitriol (Rocaltrol) 0.25 mcg Q2D PO 09/14/20 09:00 09/22/20 08:16 Darbepoetin Bharat (Aranesp) 200 mcg Mo@0900 SC 09/18/20 09:00 Docusate Sodium (Colace) 100 mg BID PO 09/13/20 21:00 09/21/20 20:20 Ferrous Gluconate (Fergon) 324 mg DAILY PO 09/14/20 09:00 09/22/20 08:16 Finasteride (Proscar) 5 mg QHS PO 09/13/20 21:00 09/21/20 20:21 Folic Acid (Folic Acid) 1 mg QHS PO 09/13/20 21:00 09/21/20 20:21 Furosemide (Lasix) 40 mg BID@09,17 PO 09/13/20 17:00 09/14/20 11:47 DC Gemfibrozil (Lopid) 600 mg DAILY PO 09/14/20 09:00 09/13/20 16:53 DC Home Med (Med Rec Complete!) ASDIRECTED XX 09/13/20 16:30 09/13/20 16:31 DC Lactobacillus Acidophilus (Bacid) 2 ea BID PO 09/13/20 21:00 09/22/20 08:16 Metoprolol Tartrate (Lopressor) 6.25 mg BID PO 09/20/20 09:00 09/20/20 10:07 DC Metoprolol Tartrate (Lopressor) 6.25 mg BID PO 09/20/20 21:00 09/22/20 08:16 Metoprolol Tartrate (Lopressor) 6.25 mg Q6H PO 09/14/20 12:00 09/19/20 22:10 DC 09/19/20 17:27 Metoprolol Tartrate (Lopressor) 12.5 mg BID PO 09/13/20 21:00 09/14/20 12:23 DC Nystatin (Mycostatin Powder, Nystop) 1 dose BID TOP 09/13/20 21:00 09/22/20 08:17 Omeprazole (PriLOSEC) 40 mg DAILY PO 09/14/20 09:00 09/22/20 08:17 Rosuvastatin Calcium (Crestor) 20 mg QHS PO 09/13/20 21:00 09/21/20 20:21 Senna (Senokot) 1 tab QHS PO 09/13/20 21:00 09/21/20 20:21 Tamsulosin HCl (Flomax) 0.4 mg QHS PO 09/13/20 21:00 09/14/20 12:50 DC 09/13/20 22:03 Tamsulosin HCl (Flomax) 0.4 mg QHS PO 09/19/20 21:00 09/21/20 20:20 Torsemide (Demadex) 20 mg DAILY@1700 PO 09/17/20 17:00 09/21/20 17:28 Torsemide (Demadex) 40 mg DAILY PO 09/15/20 09:00 09/22/20 08:16 Warfarin Sodium (Coumadin) 2 mg DAILY@17 PO 09/21/20 17:00 09/21/20 17:28 Warfarin Sodium (Coumadin) 2 mg DAILY@17 PO 09/18/20 17:00 09/20/20 11:56 DC 09/18/20 17:11 Warfarin Sodium (Coumadin) 5 mg DAILY@17 PO 09/15/20 17:00 09/15/20 07:42 DC Warfarin Sodium (Coumadin) 5 mg DAILY@17 PO 09/17/20 17:00 09/18/20 15:33 DC 09/17/20 17:30 Warfarin Sodium (Coumadin) 7.5 mg DAILY@17 PO 09/15/20 17:00 09/17/20 09:58 DC 09/16/20 17:25 WONG SIMMONS MD Sep 22, 2020 10:29
[2020-09-22] MEDS: SPIRONOLACTONE 12.5MG PER 1/2 TABLET PO SCH (10:54)
--- NOTE | 2020-09-22 13:04 | IPN ---
PROGRESS NOTE DATE: 09/22/2020 SUBJECTIVE: Lasha is seen and examined this morning in the rehabilitation unit sitting out of bed to the chair. He reports that his therapy is going well and he denies any shortness of breath or dyspnea of exertion while he is doing his physical therapy. He continues to have urinary retention and is getting intermittent straight catheterization. Laboratory studies show improvement in renal function. OBJECTIVE: VITAL SIGNS: Temperature 97.1, pulse 78, respiratory rate 18, blood pressure 139/80, saturating 96% on room air. INTAKE AND OUTPUT: Intake yesterday was 1280. Urine output was 1250. Weight on the bed scale today is 83.5 kg, which is the same as it has been the past three days. GENERAL: The patient is seen sitting out of bed to the chair. Elderly male, awake, alert, and oriented x3 in no apparent distress. HEENT: Extraocular muscles are intact. Pupils are round and reactive to light. Mucous membranes are moist. NECK: Supple. Jugular veins were not elevated while he was sitting upright. HEART: Sounds are regular rate and rhythm. There is ongoing leg edema. There are no wraps today. There is pedal edema as well. ABDOMEN: Soft and nontender. LUNGS: Shows diminished breath sounds at the bases with faint crackle. NEUROLOGIC: He is oriented x3 and at baseline mentation. LABORATORY DATA: Today's laboratory studies show white count 6.7, hemoglobin 8.7, platelets 170,000. Sodium 141, potassium 3.5, bicarbonate 28, BUN 54, creatinine 2.5. INPATIENT MEDICATIONS: I added Spironolactone 12.5 mg p.o. daily. His remainder of medications are unchanged as compared to yesterday. PROBLEMS: 1. Chronic kidney disease (CKD) stage IV. This is his new baseline renal function. He is mildly hypervolemic and he is on torsemide 40 mg in the morning and 20 mg in the evening. His potassium is slowly down trending, so I added Spironolactone 12.5 mg daily to help with further diuresis and for potassium conservation. 2. Urinary retention. He continues to require intermittent straight catheterization and he needs to continue with postvoid residual bladder scans, and he is on Flomax and finasteride. He may ultimately need to continue straight catheterizations at home or be sent with a Naidu catheter if he continues to have large postvoid residual scan. 3. Anemia related to chronic renal failure. Continue once weekly Aranesp. Iron stores have been adequate. I would transfuse if hemoglobin goes less than 8. 4. Probable diastolic congestive heart failure. His last two echocardiograms showed preserved left ventricular ejection fraction, but diastolic dysfunction could not be assessed due to underlying atrial fibrillation. He is mildly hypervolemic on exam. Continue torsemide 40 mg in the morning and 20 mg in the evening. Add Spironolactone 12.5 mg once daily. 5. Atrial fibrillation. He is rate controlled with beta-page and he is anticoagulated with Coumadin and his INR is therapeutic.
[2020-09-22 14:00] VITALS: BP 134/63
[2020-09-22] MEDS: WARFARIN SOD 2MG TAB PO SCH (16:04)
[2020-09-22 20:00] VITALS: BP 158/76
[2020-09-22] MEDS: FOLIC ACID 1 MG TAB PO SCH (20:42)
[2020-09-22] MEDS: FINASTERIDE 5 MG TAB PO SCH (20:42)
[2020-09-22] MEDS: TAMSULOSIN 0.4 MG CAP PO SCH (20:43)
[2020-09-22] MEDS: ASPIRIN 81MG ENTERIC TABLET PO SCH (20:43)
[2020-09-22] MEDS: ROSUVASTATIN 10 MG TAB (CRESTOR) PO SCH (20:43)
[2020-09-22] MEDS: SENNA 8.6 MG TAB (SENOKOT) PO SCH (20:43)
[2020-09-23] MEDS: IPRATROPIUM 0.5MG/ALBUTEROL 2.5MG INH SOL UD 3ML (DUONEB) NEB SCH ×4 (01:11→19:58)
[2020-09-23 05:10] VITALS: BP 109/70
[2020-09-23 07:07] LABS: INR 2.57; PROTHROMBIN TIME 28.2 SECONDS (12.5-14.3)
[2020-09-23 08:12] VITALS: BP 93/50
[2020-09-23] MEDS: LACTOBACILLUS ACIDOPHILUS CAP (BACID) PO SCH ×2 (08:14→21:18)
[2020-09-23] MEDS: ACETAMINOPHEN TAB 650MG DOSE (2X325MG) PO PRN ×3 (08:14→21:25)
[2020-09-23] MEDS: OMEPRAZOLE 20 MG CAP PO SCH (08:14)
[2020-09-23] MEDS: METOPROLOL TART 12.5 MG PER 1/2 TAB PO SCH ×2 (08:14→21:00)
[2020-09-23] MEDS: FERROUS GLUCONATE 324 MG TAB PO SCH (08:14)
[2020-09-23] MEDS: TORSEMIDE 20 MG TAB PO SCH ×2 (08:15→16:14)
[2020-09-23] MEDS: NYSTATIN 100,000 UNITS/GM TOPICAL PWD 15 GM TOP SCH ×2 (08:15→21:00)
[2020-09-23] MEDS: DOCUSATE SODIUM 100MG CAPSULE PO SCH ×2 (08:15→21:00)
[2020-09-23] MEDS: SPIRONOLACTONE 12.5MG PER 1/2 TABLET PO SCH (08:15)
[2020-09-23 14:00] VITALS: BP 110/74
--- NOTE | 2020-09-23 14:26 | IPN ---
PROGRESS NOTE DATE: 09/23/2020 SUBJECTIVE: Patient is seen and examined this morning in the rehabilitation unit sitting out of bed to the chair after just having gotten dressed for the morning. He continues to have urinary retention and was straight catheterized twice overnight and had about 600 cc out both times. He denies any shortness of breath at rest, denies dyspnea with exertion. He reports his leg edema is going down. OBJECTIVE: VITAL SIGNS: Temperature 97.4, pulse 98, respiratory rate 20, blood pressure 109/70, saturating 94% on room air. INTAKE AND OUTPUT: Intake yesterday was not fully recorded. Urine output was recorded as five voids. His urinary retention total was 1.3 liters. He was straight catheterized twice. GENERAL: Patient is seen awake, alert, oriented, sitting out of bed to the chair, an elderly male in no apparent distress. HEENT: Extraocular muscles are intact. Tongue is moist. NECK: Supple. Jugular veins are not elevated while he was sitting upright. HEART: Sounds are regular, S1, S2. There is only 1+ leg edema now, mostly from the mid erickson down. There is prominent pedal edema still. LUNGS: Show diminished breath sounds at the bases bilaterally. ABDOMEN: Soft and nontender. There are bowel sounds. NEUROLOGIC: He is oriented x3, interactive and at baseline mentation. SKIN: Shows pallor and is warm and dry. LABORATORY DATA: Today's laboratory studies show sodium 141, potassium 3.5, bicarbonate 28, BUN 54, creatinine 2.5. Hemoglobin 8.7. INPATIENT MEDICATIONS: Reviewed by myself and no change as compared to yesterday. PROBLEMS: 1. CKD stage 4: This is the patient's new baseline renal function. His electrolytes are stable. His volume status is improving nicely. His daily weights are down trending. Continue the current diuretics, Torsemide plus Spironolactone. 2. Urinary retention: Patient is on Flomax and Finasteride, but he continues to require straight catheterization about two times a day with about 600 cc of urine out with each straight catheterization. He will probably need a Naidu catheter. This can either be placed now or when the patient is ready for discharge. I will defer to the rehabilitation team. 3. Probable diastolic congestive heart failure: His last two echocardiograms showed preserved left ventricular ejection fraction, but diastolic function could not be assessed due to underlying atrial fibrillation. He was mildly hypervolemic on exam, but this is improving on a day-to-day basis. His daily weights are down trending. Continue Torsemide 40 mg in the morning and 20 mg in the evening. 4. Atrial fibrillation: He is rate controlled with low dose beta-page and he is anticoagulated with Coumadin with therapeutic INR. 5. Anemia related to chronic renal failure: Continue once weekly Aranesp and I would transfuse for hemoglobin less than 8.
[2020-09-23] MEDS: WARFARIN SOD 2MG TAB PO SCH (16:15)
[2020-09-23 20:00] VITALS: BP 117/63
[2020-09-23] MEDS: SENNA 8.6 MG TAB (SENOKOT) PO SCH (21:00)
[2020-09-23] MEDS: FOLIC ACID 1 MG TAB PO SCH (21:18)
[2020-09-23] MEDS: FINASTERIDE 5 MG TAB PO SCH (21:18)
[2020-09-23] MEDS: ASPIRIN 81MG ENTERIC TABLET PO SCH (21:19)
[2020-09-23] MEDS: TAMSULOSIN 0.4 MG CAP PO SCH (21:19)
[2020-09-23] MEDS: ROSUVASTATIN 10 MG TAB (CRESTOR) PO SCH (21:19)
[2020-09-24] MEDS: IPRATROPIUM 0.5MG/ALBUTEROL 2.5MG INH SOL UD 3ML (DUONEB) NEB SCH ×4 (00:14→20:00)
[2020-09-24 05:15] VITALS: BP 130/73
[2020-09-24 07:09] LABS: INR 2.45; PROTHROMBIN TIME 27.1 SECONDS (12.5-14.3)
[2020-09-24 07:20] LABS: CALCIUM LEVEL 9.1 MG/DL (8.8-10.2); CREATININE FOR GFR 2.7 MG/DL (0.70-1.30); GLOMERULAR FILTRATION RATE 24.3 (>35); POTASSIUM SERUM 3.8 MEQ/L (3.5-5.1)
[2020-09-24 07:45] VITALS: BP 113/66
[2020-09-24] MEDS: FERROUS GLUCONATE 324 MG TAB PO SCH (07:46)
[2020-09-24] MEDS: SPIRONOLACTONE 12.5MG PER 1/2 TABLET PO SCH (07:46)
[2020-09-24] MEDS: ACETAMINOPHEN TAB 650MG DOSE (2X325MG) PO PRN ×3 (07:46→20:46)
[2020-09-24] MEDS: METOPROLOL TART 12.5 MG PER 1/2 TAB PO SCH ×2 (07:46→20:46)
[2020-09-24] MEDS: CALCITRIOL 0.25 MCG CAP (S0169) PO SCH (07:46)
[2020-09-24] MEDS: LACTOBACILLUS ACIDOPHILUS CAP (BACID) PO SCH ×2 (07:46→20:56)
[2020-09-24] MEDS: OMEPRAZOLE 20 MG CAP PO SCH (07:46)
[2020-09-24] MEDS: TORSEMIDE 20 MG TAB PO SCH ×2 (07:47→16:09)
[2020-09-24] MEDS: NYSTATIN 100,000 UNITS/GM TOPICAL PWD 15 GM TOP SCH ×2 (07:47→20:51)
[2020-09-24] MEDS: DOCUSATE SODIUM 100MG CAPSULE PO SCH ×2 (07:47→20:51)
--- NOTE | 2020-09-24 11:00 | IPN ---
NEPHROLOGY PROGRESS NOTE DATE: 09/24/2020 SUBJECTIVE: Lasha is seen and examined this morning in the rehabilitation unit, sitting out of bed to the chair. He complains of a rash to his legs and itching. He had a Naidu catheter placed due to recurrent urinary retention. He offers no other complaints. Denies any shortness of breath or dyspnea with exertion. He reports his physical therapy is going well. PHYSICAL EXAMINATION: Temperature 98.0, pulse has been 90-110, respiratory rate 22, blood pressure 113/66, saturating 96% on room air. Weight in the bed scale today is 81.5 kg. GENERAL: Patient is seen awake, alert, sitting out of bed to the chair, oriented times three, in no apparent distress. HEENT: Extraocular muscles are intact. Tongue is moist. Neck is supple. Jugular veins are not elevated while he is sitting upright. HEART SOUNDS: Tachycardic. S1, S2. There is 1+ pedal edema and leg edema that only goes up to the mid-erickson. LUNGS: Diminished breath sounds at the bases, but he is comfortable on room air. ABDOMEN: Soft and nontender. GENITOURINARY: Shows indwelling Niadu catheter draining yellow urine. NEUROLOGIC: Oriented times three, interactive, at baseline mentation. SKIN: Shows some pallor and is warm and dry with some excoriation on the legs. LABORATORY DATA: Sodium 142, potassium 3.8, bicarbonate 27, BUN 55. Hemoglobin 8.7, platelets 170. INPATIENT MEDICATIONS: Reviewed by myself and no changes noted as compared to yesterday. PROBLEMS: 1. Chronic kidney disease (CKD) stage IV. Patient's renal function, electrolytes, volume status are all acceptable. Continue the current diuretic regimen, torsemide plus spironolactone. He is not suitable for any angiotensin converting enzyme (UMA) or angiotensin receptor page (ARB). 2. Urinary retention. He continues on Flomax and finasteride. However, he continued to require straight catheterizations about two times daily with 600 mL of urine with each straight catheterization and Naidu catheter has now been placed. 3. Probable diastolic congestive heart failure. His last two echocardiograms showed preserved left ventricular ejection fraction, but diastolic function could not be assessed due to underlying atrial fibrillation. He is being diuresed with torsemide and spironolactone. His leg edema has significantly improved over this past week and his daily weights have downtrended nicely. I am not making any change to the diuretic today. 4. Atrial fibrillation. He has been mildly tachycardic. Heart rate has been 90-110s due to the hold parameters on his beta page. I am making no changes today. He is anticoagulated with Coumadin and INR is therapeutic. 5. Anemia related to chronic renal failure. The patient will get a dose of Aranesp 200 mcg subcutaneously on Friday and I will transfuse for hemoglobin less than 8. His iron stores were recently checked and adequate.
[2020-09-24 14:00] VITALS: BP 109/57
[2020-09-24] MEDS: WARFARIN SOD 2MG TAB PO SCH (16:09)
[2020-09-24 20:00] VITALS: BP 134/74
[2020-09-24] MEDS: FOLIC ACID 1 MG TAB PO SCH (20:45)
[2020-09-24] MEDS: FINASTERIDE 5 MG TAB PO SCH (20:45)
[2020-09-24] MEDS: TAMSULOSIN 0.4 MG CAP PO SCH (20:45)
[2020-09-24] MEDS: ASPIRIN 81MG ENTERIC TABLET PO SCH (20:46)
[2020-09-24] MEDS: ROSUVASTATIN 10 MG TAB (CRESTOR) PO SCH (20:46)
[2020-09-24] MEDS: SENNA 8.6 MG TAB (SENOKOT) PO SCH (20:51)
[2020-09-25] MEDS: IPRATROPIUM 0.5MG/ALBUTEROL 2.5MG INH SOL UD 3ML (DUONEB) NEB SCH ×4 (02:00→20:34)
[2020-09-25 06:02] VITALS: BP 122/78
[2020-09-25 06:34] LABS: BASO % 0.8 % (0.0-1.0); EOS # 0.3 10^3/uL (0.0-0.5); EOS % 7.1 % (0.0-3.0); HEMATOCRIT 29.5 % (42.0-52.0); HEMOGLOBIN 9.4 g/dl (13.5-17.5); LYMPH # 0.9 10^3/uL (1.5-5.0); LYMPH % 23.3 % (24.0-44.0); MEAN CORPUSCULAR HEMOGLOBIN 31.9 pg (27.0-33.0); MEAN CORPUSCULAR HGB CONC 31.9 g/dl (32.0-36.5); MONO # 0.4 10^3/uL (0.0-0.8); MONO % 9.9 % (2.0-8.0); NEUTROPHILS # 2.3 10^3/uL (1.5-8.5); NEUTROPHILS % 58.6 % (36.0-66.0); PLATELET COUNT, AUTOMATED 178 10^3/uL (150-450); RED BLOOD COUNT 2.95 10^6/uL (4.30-6.10)
[2020-09-25 06:53] LABS: INR 2.46; PROTHROMBIN TIME 27.2 SECONDS (12.5-14.3)
[2020-09-25 07:01] LABS: CALCIUM LEVEL 9.1 MG/DL (8.8-10.2); CREATININE FOR GFR 2.67 MG/DL (0.70-1.30); GLOMERULAR FILTRATION RATE 24.6 (>35)
[2020-09-25] MEDS: METOPROLOL TART 12.5 MG PER 1/2 TAB PO SCH ×2 (07:49→21:01)
[2020-09-25] MEDS: OMEPRAZOLE 20 MG CAP PO SCH (07:50)
[2020-09-25] MEDS: TORSEMIDE 20 MG TAB PO SCH ×2 (07:50→17:22)
[2020-09-25] MEDS: SPIRONOLACTONE 12.5MG PER 1/2 TABLET PO SCH (07:50)
[2020-09-25] MEDS: LACTOBACILLUS ACIDOPHILUS CAP (BACID) PO SCH ×2 (07:50→20:54)
[2020-09-25] MEDS: FERROUS GLUCONATE 324 MG TAB PO SCH (07:50)
[2020-09-25] MEDS: DOCUSATE SODIUM 100MG CAPSULE PO SCH ×2 (07:51→20:54)
[2020-09-25] MEDS: ACETAMINOPHEN TAB 650MG DOSE (2X325MG) PO PRN ×2 (07:53→17:24)
[2020-09-25] MEDS: NYSTATIN 100,000 UNITS/GM TOPICAL PWD 15 GM TOP SCH ×2 (07:57→21:01)
[2020-09-25] MEDS: DARBEPOETIN 200MCG/0.4ML *NON-DIALYSIS* SYRINGE (J0881 PER 1MCG) SC SCH (10:45)
--- NOTE | 2020-09-25 12:48 | IPN ---
PROGRESS NOTE DATE: 09/25/2020 SUBJECTIVE: Mr. Manzano is seen this morning on his bedside. He just finished his Physical Therapy and is currently sitting in the chair. He does have some cough and he reports vomiting after taking his pills yesterday but no vomiting today. He denies any dyspnea or chest pain. PHYSICAL EXAMINATION: VITAL SIGNS: Temperature 98.2 degrees Fahrenheit, heart rate 90 per minute and respiratory rate 18 per minute. Blood pressure 122/78 mmHg and oxygen saturation 96% on room air. HEENT: Head is atraumatic. NECK: Supple and JVD not abnormally elevated sitting upright. LUNGS: Coarse bilateral crepitations. HEART: Irregular and without a pericardial friction rub. ABDOMEN: Soft and nontender. Bowel sounds are normal. EXTREMITIES: Without any cyanosis or clubbing. NEUROLOGIC: He is awake and at his baseline mentation without any focal deficit. LABORATORY DATA: Today's labs shows a sodium of 144, potassium 4.0, chloride 107, CO2 28, BUN 53 and creatinine 2.67. Glucose 97, calcium is 9.1. WBC count is 4.0, hemoglobin is 9.4 and hematocrit 29.5, platelets 178,000. PROBLEMS: 1. Acute on chronic kidney disease. His kidney function seems to be leveled off and this is probably his baseline function. Electrolytes are stable at present. 2. Diastolic congestive heart failure. His volume seems well-compensated present and will continue with current diuretics. No changes are being made today. 3. Atrial fibrillation, ventricular rate is very well-controlled and the patient will continue with current medications. 4. Urinary retention. Patient has required straight cath and he continues with Flomax and Proscar. It remains to be seen how much he improves. 5. Anemia, at present his anemia is slightly improved compared to the last couple of days. He remains on Aranesp at 200 mcg once a week. He will also continue with oral iron supplement. 6. Parathyroid. He has been on Calcitriol 0.25 mcg every two days which should be continued.
[2020-09-25 14:00] VITALS: BP 111/61
--- NOTE | 2020-09-25 15:12 | IPNPDOC ---
Text Note Date of Service The patient was seen on 09/25/20. NOTE SUBJECTIVE: Patient was seen and examined this morning. Doing well. Denies chest pain, chest breath, nausea, vomiting, diarrhea. OBJECTIVE PHYSICAL EXAMINATION: VITAL SIGNS: please see below General: NAD, comfortable HEENT: PERRLA, EOMI, sclerae clear, mild L facial droop Neck: supple, normal ROM, no JVD Respiratory: lungs CTAB, no wheeze, no rales, no crackles CVS: RRR, normal S1, S2, no murmurs Abdo: soft, no masses, no hepatosplenomegaly, BS+, no rebound tenderness Extremities: no edema, pulses 2+ MSK: no joint deformities, normal ROM Neuro: no focal neuro deficits, moving all 4 extremities, CN2-12 intact. Psych: calm, cooperative, AAO x 3 LABORATORY DATA, IMAGING STUDIES, MICROBIOLOGY: Please see below. ASSESSMENT AND PLAN: 80 yo M with a hx of COPD, CAD s/p CABG, s/p AVR (bovine), PVD (s/p bilateral LE stens), CKD, prostate cancer, who was transfered from [facility] for higher level of care due to hypotension and acute renal failure with hematuria, acute decompensated CHF and metabolic acidosis. Nephrology was consulted and patient received CVVHD, transitioned to intermittent HD and now off HD. Admitted to ARU for ongoing rehab needs. 1) Acute renal failure on CKD 3: Non-oluguiric, responded to diuretics. nephrology following, removed HD catheter from L groin 2)Anemia of Kidney Disease : Stable , epo as per nephrology 3) Diastolic CHF: Continue metoprolol, on aldectone and torsamide. I/O monitoring. 2gm Na diet. 4) Atrial fibrillation continue with metoprolol and warfarin 5) hx of BPH, Prostate Ca. cont finasteride and flomax due to labile BPs Disposition as per primary. VS,Fishbone, I+O VS, Fishbone, I+O Laboratory Tests 09/25/20 06:17 Vital Signs Date Time Temp Pulse Resp B/P (MAP) Pulse Ox O2 Delivery O2 Flow Rate FiO2 09/25/20 14:00 97.6 113 18 111/61 (78) 98 Room Air I&O- Last 24 Hours up to 6 AM 09/25/20 05:59 Intake Total 1060 ml Output Total 1650 ml Balance -590 ml HUMBERTO RODRIGES MD Sep 25, 2020 15:12
[2020-09-25] MEDS: WARFARIN SOD 2MG TAB PO SCH (17:22)
[2020-09-25 20:20] VITALS: BP 142/62
[2020-09-25] MEDS: ASPIRIN 81MG ENTERIC TABLET PO SCH (20:54)
[2020-09-25] MEDS: FOLIC ACID 1 MG TAB PO SCH (20:54)
[2020-09-25] MEDS: TAMSULOSIN 0.4 MG CAP PO SCH (20:54)
[2020-09-25] MEDS: FINASTERIDE 5 MG TAB PO SCH (20:55)
[2020-09-25] MEDS: ROSUVASTATIN 10 MG TAB (CRESTOR) PO SCH (20:55)
[2020-09-25] MEDS: SENNA 8.6 MG TAB (SENOKOT) PO SCH (21:01)
[2020-09-26] MEDS: IPRATROPIUM 0.5MG/ALBUTEROL 2.5MG INH SOL UD 3ML (DUONEB) NEB SCH ×4 (01:09→20:00)
[2020-09-26] MEDS: ACETAMINOPHEN TAB 650MG DOSE (2X325MG) PO PRN ×3 (05:57→21:26)
[2020-09-26 06:02] VITALS: BP 119/69
[2020-09-26 06:36] LABS: INR 2.41; PROTHROMBIN TIME 26.8 SECONDS (12.5-14.3)
[2020-09-26] MEDS: OMEPRAZOLE 20 MG CAP PO SCH (07:54)
[2020-09-26] MEDS: LACTOBACILLUS ACIDOPHILUS CAP (BACID) PO SCH ×2 (07:54→21:14)
[2020-09-26] MEDS: TORSEMIDE 20 MG TAB PO SCH ×2 (07:55→17:00)
[2020-09-26] MEDS: CALCITRIOL 0.25 MCG CAP (S0169) PO SCH (07:55)
[2020-09-26] MEDS: SPIRONOLACTONE 12.5MG PER 1/2 TABLET PO SCH (07:56)
[2020-09-26] MEDS: FERROUS GLUCONATE 324 MG TAB PO SCH (07:56)
[2020-09-26] MEDS: DOCUSATE SODIUM 100MG CAPSULE PO SCH ×2 (07:57→21:14)
[2020-09-26] MEDS: METOPROLOL TART 12.5 MG PER 1/2 TAB PO SCH ×2 (08:03→21:00)
[2020-09-26] MEDS: NYSTATIN 100,000 UNITS/GM TOPICAL PWD 15 GM TOP SCH ×2 (09:10→21:18)
[2020-09-26] MEDS ORDERED: AVEENO SOAP BAR TOP PRN (10:30)
--- NOTE | 2020-09-26 12:24 | IPNPDOC ---
PM&R Progress Note DATE OF SERVICE: Sep 26, 2020 Business Systems Developer Progress Note Subjective: Patient seen in his room stating he feels weaker overall because he did not sleep for 2 night in a row from an itchy back. he says this happens at home from time to time and his doctor prescribed a salve that worked. REVIEW OF SYSTEMS: The following is a completed review of systems and has been reviewed. Review of systems otherwise unremarkable. PAIN: Patient self reports no pain EYES: No recent vision changes EARS, NOSE, & THROAT: No throat pain, or dysphagia, or rhinorrhea CARDIOVASCULAR: Denies chest pain or palpitations PULMONARY: Denies shortness of breath GASTROINTESTINAL: Denies constipation/diarrhea GENITOURINARY: denies dysuria MUSCULOSKELETAL: generalized weakness NEUROLOGICAL:denies tremor, +bilat LE and UE paresthesias HEMATOLOGICAL: denies easy bruising SKIN: left groin catheter PSYCHIATRIC: Unremarkable All other review of systems found to be negative. PHYSICAL EXAMINATION: VITAL SIGNS: Please see below. GENERAL: Pleasant and cooperative. No acute distress. HEENT: PERRL. Extraocular movements intact. mild left facial droop CARDIOVASCULAR: Regular rate and rhythm. No murmurs, rubs, or gallops LUNGS: Clear to auscultation bilaterally. No wheezes. No rhonchi ABDOMEN: Soft, nontender, nondistended. Positive bowel sounds. Normal active bowel sounds NEUROLOGICAL: Alert and oriented times three. Cranial nerves II through XII grossly intact. 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 Rehab- PT/OT advance mobility and ADLs, strengthen/stretch/maintain ROM all 4limbs 2. Neuro- patient with left sided weakness and facial droop not acute, CT negative for acute bleed or infarct, patient with stents in his LE so unable to get MRI -peripheral polyneuropathy possibly due to PVD and/or spinal stenosis 3. Cardiac- hx of Afib and aortic valve replacement (bovine) on Warfarin and metoprolol, monitor daily INRs, hx CAD s/p CABG c/u ASA -probable diastolic CHF- daily weights, fluid restrict, renal following closely for fluid management- diuretics per their recs -HLD- c/u statin 4. Resp- hx of COPD, not on home , recent ECHO showing moderate pulmonary HTN, supplemental oxygen , c/u duonebs, monitor for infection 5. renal- oliguric ARF improving, plan for HD on hold at this point, renal following closely 6. - hx of BPH, c/u finasteride,anf flomax, aptient with high PVRs over the weekend, m[place]o placed- will need urology f/u -monitor for hematuria 7. GI ppx- omeprazole 8. DVT ppx- on warfarin -dopplers negative for DVT 9. Pain- tylnenol prn 10. Skin- urticarial rash on back will order hydrocortisone cream and aveeno 11. Dispo- 10-05-20 to home, progressing towards goals Allergies Coded Allergies: No Known Allergies (Unverified , 01/28/19) Vital Signs Vital Signs Date Time Temp Pulse Resp B/P (MAP) Pulse Ox O2 Delivery O2 Flow Rate FiO2 09/26/20 08:03 102/60 09/26/20 06:02 98.9 85 18 95 Room Air Laboratory Data Labs 24H Laboratory Tests 2 09/26/20 05:57: Prothrombin Time 26.8H, Prothromb Time International Ratio 2.41 Current Medications Current Medications Current Medications Medications (Trade) Dose Ordered Sig/Anju Route PRN Reason Start Time Stop Time Status Last Admin Dose Admin Acetaminophen (Tylenol Tab) 650 mg Q4HP PRN PO fevrer/MILD PAIN (PS 1-4) 09/13/20 16:15 09/26/20 05:57 Albuterol/ Ipratropium (Duoneb (Ipr 0.5mg/Alb 2.5mg)) 3 ml RQ6H NEB 09/13/20 20:00 09/25/20 20:34 Allopurinol (Zyloprim) 100 mg DAILY PO 09/14/20 09:00 09/13/20 16:56 DC Aspirin (Ecotrin) 81 mg QHS PO 09/13/20 21:00 09/25/20 20:54 Bisacodyl (Dulcolax Suppository) 10 mg DAILYPRN PRN DC CONSTIPATION 09/13/20 16:15 Calcitriol (Rocaltrol) 0.25 mcg Q2D PO 09/14/20 09:00 09/26/20 07:55 Colloidal Oatmeal (Aveeno) USE ON BACK Q6H PRN TOP back itch 09/26/20 10:30 Darbepoetin Bharat (Aranesp) 200 mcg Mo@0900 SC 09/18/20 09:00 09/25/20 10:45 Docusate Sodium (Colace) 100 mg BID PO 09/13/20 21:00 09/25/20 20:54 Ferrous Gluconate (Fergon) 324 mg DAILY PO 09/14/20 09:00 09/26/20 07:56 Finasteride (Proscar) 5 mg QHS PO 09/13/20 21:00 09/25/20 20:55 Folic Acid (Folic Acid) 1 mg QHS PO 09/13/20 21:00 09/25/20 20:54 Furosemide (Lasix) 40 mg BID@09,17 PO 09/13/20 17:00 09/14/20 11:47 DC Gemfibrozil (Lopid) 600 mg DAILY PO 09/14/20 09:00 09/13/20 16:53 DC Home Med (Med Rec Complete!) ASDIRECTED XX 09/13/20 16:30 09/13/20 16:31 DC Hydrocortisone (Proctosol Hc) apply to back TID TOP 09/26/20 16:00 Lactobacillus Acidophilus (Bacid) 2 ea BID PO 09/13/20 21:00 09/26/20 07:54 Metoprolol Tartrate (Lopressor) 6.25 mg BID PO 09/20/20 09:00 09/20/20 10:07 DC Metoprolol Tartrate (Lopressor) 6.25 mg BID PO 09/20/20 21:00 09/25/20 21:01 Metoprolol Tartrate (Lopressor) 6.25 mg Q6H PO 09/14/20 12:00 09/19/20 22:10 DC 09/19/20 17:27 Metoprolol Tartrate (Lopressor) 12.5 mg BID PO 09/13/20 21:00 09/14/20 12:23 DC Nystatin (Mycostatin Powder, Nystop) 1 dose BID TOP 09/13/20 21:00 09/26/20 09:10 Omeprazole (PriLOSEC) 40 mg DAILY PO 09/14/20 09:00 09/26/20 07:54 Rosuvastatin Calcium (Crestor) 20 mg QHS PO 09/13/20 21:00 09/25/20 20:55 Senna (Senokot) 1 tab QHS PO 09/13/20 21:00 09/25/20 21:01 Spironolactone (Aldactone) 12.5 mg DAILY PO 09/22/20 09:00 09/26/20 07:56 Tamsulosin HCl (Flomax) 0.4 mg QHS PO 09/13/20 21:00 09/14/20 12:50 DC 09/13/20 22:03 Tamsulosin HCl (Flomax) 0.4 mg QHS PO 09/19/20 21:00 09/25/20 20:54 Torsemide (Demadex) 20 mg DAILY@1700 PO 09/17/20 17:00 09/25/20 17:22 Torsemide (Demadex) 40 mg DAILY PO 09/15/20 09:00 09/26/20 07:55 Warfarin Sodium (Coumadin) 2 mg DAILY@17 PO 09/21/20 17:00 09/25/20 17:22 Warfarin Sodium (Coumadin) 2 mg DAILY@17 PO 09/18/20 17:00 09/20/20 11:56 DC 09/18/20 17:11 Warfarin Sodium (Coumadin) 5 mg DAILY@17 PO 09/15/20 17:00 09/15/20 07:42 DC Warfarin Sodium (Coumadin) 5 mg DAILY@17 PO 09/17/20 17:00 09/18/20 15:33 DC 09/17/20 17:30 Warfarin Sodium (Coumadin) 7.5 mg DAILY@17 PO 09/15/20 17:00 09/17/20 09:58 DC 09/16/20 17:25 WONG SIMMONS MD Sep 26, 2020 12:24
[2020-09-26 14:00] VITALS: BP 129/59
[2020-09-26] MEDS: ANUSOL HC CREAM 30GM TOP SCH ×2 (14:38→21:19)
[2020-09-26] MEDS: WARFARIN SOD 2MG TAB PO SCH (17:01)
--- NOTE | 2020-09-26 17:08 | IPN ---
PROGRESS NOTE DATE: 09/26/2020 SUBJECTIVE: Mr. Manzano is seen this morning on his bedside. He just finished his physical therapy and is resting in the chair right now getting ready to take a bath. He denies any dyspnea, chest pain, nausea or vomiting. He is looking forward to going home. PHYSICAL EXAMINATION: VITALS: Temperature 98.9 degrees Fahrenheit, heart rate 85 per minute, respiratory rate 18 per minute, blood pressure 102/60 mmHg and oxygen saturation 95% on room air. HEENT: Head is atraumatic. Neck is supple and without JVD sitting upright. LUNGS: A few basilar creps. HEART: Sounds are irregular in rhythm. ABDOMEN: Soft and nontender. Bowel sounds are normal. EXTREMITIES: Without any cyanosis or clubbing. He does not have any peripheral edema at present. LABORATORY DATA: Patient did not have any new labs done today. Labs from yesterday have already been reviewed. Yesterday his hemoglobin was 9.4 and hematocrit 29.5. BUN 53 and creatinine 2.67, which is about his baseline. PROBLEMS: 1. Congestive heart failure: Volume status seems clinically well compensated. No change in diuretics is being made today. 2. Chronic kidney disease: Kidney function has been stable for the last several days, with only minor fluctuations in his BUN and creatinine. He does not have any uremic symptoms and electrolytes are within normal range. 3. Anemia: His anemia has been stable with slight improvement yesterday. CBC will be checked again in a couple of days. 4. Deconditioning: Patient is making good progress with physical rehab. He is looking forward to going home in the near future.
[2020-09-26 20:00] VITALS: BP 103/60
[2020-09-26] MEDS: ROSUVASTATIN 10 MG TAB (CRESTOR) PO SCH (21:14)
[2020-09-26] MEDS: FINASTERIDE 5 MG TAB PO SCH (21:14)
[2020-09-26] MEDS: ASPIRIN 81MG ENTERIC TABLET PO SCH (21:14)
[2020-09-26] MEDS: SENNA 8.6 MG TAB (SENOKOT) PO SCH (21:14)
[2020-09-26] MEDS: TAMSULOSIN 0.4 MG CAP PO SCH (21:14)
[2020-09-26] MEDS: FOLIC ACID 1 MG TAB PO SCH (21:14)
[2020-09-27] MEDS: IPRATROPIUM 0.5MG/ALBUTEROL 2.5MG INH SOL UD 3ML (DUONEB) NEB SCH ×4 (00:43→20:00)
[2020-09-27 06:00] VITALS: BP 129/69
[2020-09-27 07:09] LABS: BASO % 0.7 % (0.0-1.0); EOS # 0.4 10^3/uL (0.0-0.5); EOS % 8.5 % (0.0-3.0); HEMATOCRIT 30.8 % (42.0-52.0); HEMOGLOBIN 9.6 g/dl (13.5-17.5); LYMPH % 20.7 % (24.0-44.0); MEAN CORPUSCULAR HEMOGLOBIN 31.2 pg (27.0-33.0); MEAN CORPUSCULAR HGB CONC 31.2 g/dl (32.0-36.5); MONO # 0.5 10^3/uL (0.0-0.8); NEUTROPHILS # 2.8 10^3/uL (1.5-8.5); NEUTROPHILS % 59.9 % (36.0-66.0); PLATELET COUNT, AUTOMATED 176 10^3/uL (150-450); RED BLOOD COUNT 3.08 10^6/uL (4.30-6.10); WHITE BLOOD COUNT 4.6 10^3/uL (4.0-10.0)
[2020-09-27 07:15] LABS: INR 2.32
[2020-09-27 07:20] LABS: CALCIUM LEVEL 9.9 MG/DL (8.8-10.2); CREATININE FOR GFR 2.78 MG/DL (0.70-1.30); GLOMERULAR FILTRATION RATE 23.5 (>35); POTASSIUM SERUM 3.7 MEQ/L (3.5-5.1)
[2020-09-27] MEDS: LACTOBACILLUS ACIDOPHILUS CAP (BACID) PO SCH ×2 (08:36→22:09)
[2020-09-27] MEDS: ACETAMINOPHEN TAB 650MG DOSE (2X325MG) PO PRN ×2 (08:36→17:09)
[2020-09-27] MEDS: OMEPRAZOLE 20 MG CAP PO SCH (08:36)
[2020-09-27] MEDS: SPIRONOLACTONE 12.5MG PER 1/2 TABLET PO SCH (08:37)
[2020-09-27] MEDS: TORSEMIDE 20 MG TAB PO SCH ×2 (08:37→17:09)
[2020-09-27] MEDS: METOPROLOL TART 12.5 MG PER 1/2 TAB PO SCH ×2 (08:37→22:10)
[2020-09-27] MEDS: FERROUS GLUCONATE 324 MG TAB PO SCH (08:37)
[2020-09-27] MEDS: NYSTATIN 100,000 UNITS/GM TOPICAL PWD 15 GM TOP SCH ×2 (08:42→22:12)
[2020-09-27] MEDS: DOCUSATE SODIUM 100MG CAPSULE PO SCH ×2 (08:45→22:09)
[2020-09-27] MEDS: ANUSOL HC CREAM 30GM TOP SCH ×3 (08:45→22:12)
--- NOTE | 2020-09-27 12:33 | IPNPDOC ---
PM&R Progress Note DATE OF SERVICE: Sep 27, 2020 Manager Call Progress Note Subjective: Patient stating he had a very good afternoon in therapy, but that in the morning he felt very weak because he hadn't slept again due to itchy back. REVIEW OF SYSTEMS: The following is a completed review of systems and has been reviewed. Review of systems otherwise unremarkable. PAIN: Patient self reports no pain EYES: No recent vision changes EARS, NOSE, & THROAT: No throat pain, or dysphagia, or rhinorrhea CARDIOVASCULAR: Denies chest pain or palpitations PULMONARY: Denies shortness of breath GASTROINTESTINAL: Denies constipation/diarrhea GENITOURINARY: denies dysuria MUSCULOSKELETAL: generalized weakness NEUROLOGICAL:denies tremor, +bilat LE and UE paresthesias HEMATOLOGICAL: denies easy bruising SKIN: +back rash PSYCHIATRIC: Unremarkable All other review of systems found to be negative. PHYSICAL EXAMINATION: VITAL SIGNS: Please see below. GENERAL: Pleasant and cooperative. No acute distress. HEENT: PERRL. Extraocular movements intact. mild left facial droop CARDIOVASCULAR: Regular rate and rhythm. No murmurs, rubs, or gallops LUNGS: Clear to auscultation bilaterally. No wheezes. No rhonchi ABDOMEN: Soft, nontender, nondistended. Positive bowel sounds. Normal active bowel sounds NEUROLOGICAL: Alert and oriented times three. Cranial nerves II through XII grossly intact. 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 Rehab- PT/OT advance mobility and ADLs, strengthen/stretch/maintain ROM all 4limbs 2. Neuro- patient with left sided weakness and facial droop not acute, CT negative for acute bleed or infarct, patient with stents in his LE so unable to get MRI -peripheral polyneuropathy possibly due to PVD and/or spinal stenosis 3. Cardiac- hx of Afib and aortic valve replacement (bovine) on Warfarin and metoprolol, monitor daily INRs, hx CAD s/p CABG c/u ASA -probable diastolic CHF- daily weights, fluid restrict, renal following closely for fluid management- diuretics per their recs -HLD- c/u statin 4. Resp- hx of COPD, not on home , recent ECHO showing moderate pulmonary HTN, supplemental oxygen , c/u duonebs, monitor for infection 5. renal- oliguric ARF improving, plan for HD on hold at this point, renal following closely 6. - hx of BPH, c/u finasteride,and flomax, patient with high PVRs over the weekend, [place] placed- will need urology f/u -monitor for hematuria 7. GI ppx- omeprazole 8. DVT ppx- on warfarin -dopplers negative for DVT 9. Pain- tylnenol prn 10. Skin- urticarial rash on back better today, however patient still reporting itch and difficulty sleeping, will order atarax qhs and prn , c/u hydrocortisone cream and aveeno, discuss with renal and not concerned for uremic symptoms at this time 11. Dispo- 10-05-20 to home, progressing towards goals Allergies Coded Allergies: No Known Allergies (Unverified , 01/28/19) Vital Signs Vital Signs Date Time Temp Pulse Resp B/P (MAP) Pulse Ox O2 Delivery O2 Flow Rate FiO2 09/27/20 08:37 86 129/69 09/27/20 06:00 97.5 18 96 Room Air Laboratory Data CBC/BMP Laboratory Tests 09/27/20 06:26 Labs 24H Laboratory Tests 2 09/27/20 06:26: Immature Granulocyte % (Auto) 0.2, Neutrophils (%) (Auto) 59.9, Lymphocytes (%) (Auto) 20.7L, Monocytes (%) (Auto) 10.0H, Eosinophils (%) (Auto) 8.5H, Basophils (%) (Auto) 0.7, Neutrophils # (Auto) 2.8, Lymphocytes # (Auto) 1.0L, Monocytes # (Auto) 0.5, Eosinophils # (Auto) 0.4, Basophils # (Auto) 0.0, Nucleated Red Blood Cells % (auto) 0.0, Prothrombin Time 26.0H, Prothromb Time International Ratio 2.32, Anion Gap 7L, Glomerular Filtration Rate 23.5L, Calcium Level 9.9 Current Medications Current Medications Current Medications Medications (Trade) Dose Ordered Sig/Anju Route PRN Reason Start Time Stop Time Status Last Admin Dose Admin Acetaminophen (Tylenol Tab) 650 mg Q4HP PRN PO fevrer/MILD PAIN (PS 1-4) 09/13/20 16:15 09/27/20 08:36 Albuterol/ Ipratropium (Duoneb (Ipr 0.5mg/Alb 2.5mg)) 3 ml RQ6H NEB 09/13/20 20:00 09/25/20 20:34 Allopurinol (Zyloprim) 100 mg DAILY PO 09/14/20 09:00 09/13/20 16:56 DC Aspirin (Ecotrin) 81 mg QHS PO 09/13/20 21:00 09/26/20 21:14 Bisacodyl (Dulcolax Suppository) 10 mg DAILYPRN PRN [place] CONSTIPATION 09/13/20 16:15 Calcitriol (Rocaltrol) 0.25 mcg Q2D PO 09/14/20 09:00 09/26/20 07:55 Colloidal Oatmeal (Aveeno) USE ON BACK Q6H PRN TOP back itch 09/26/20 10:30 Darbepoetin Bharat (Aranesp) 200 mcg Mo@0900 SC 09/18/20 09:00 09/25/20 10:45 Docusate Sodium (Colace) 100 mg BID PO 09/13/20 21:00 09/26/20 21:14 Ferrous Gluconate (Fergon) 324 mg DAILY PO 09/14/20 09:00 09/27/20 08:37 Finasteride (Proscar) 5 mg QHS PO 09/13/20 21:00 09/26/20 21:14 Folic Acid (Folic Acid) 1 mg QHS PO 09/13/20 21:00 09/26/20 21:14 Furosemide (Lasix) 40 mg BID@09,17 PO 09/13/20 17:00 09/14/20 11:47 DC Gemfibrozil (Lopid) 600 mg DAILY PO 09/14/20 09:00 09/13/20 16:53 DC Home Med (Med Rec Complete!) ASDIRECTED XX 09/13/20 16:30 09/13/20 16:31 DC Hydrocortisone (Proctosol Hc) apply to back TID TOP 09/26/20 16:00 09/27/20 08:45 Lactobacillus Acidophilus (Bacid) 2 ea BID PO 09/13/20 21:00 09/27/20 08:36 Metoprolol Tartrate (Lopressor) 6.25 mg BID PO 09/20/20 09:00 09/20/20 10:07 DC Metoprolol Tartrate (Lopressor) 6.25 mg BID PO 09/20/20 21:00 09/27/20 08:37 Metoprolol Tartrate (Lopressor) 6.25 mg Q6H PO 09/14/20 12:00 09/19/20 22:10 DC 09/19/20 17:27 Metoprolol Tartrate (Lopressor) 12.5 mg BID PO 09/13/20 21:00 09/14/20 12:23 DC Nystatin (Mycostatin Powder, Nystop) 1 dose BID TOP 09/13/20 21:00 09/27/20 08:42 Omeprazole (PriLOSEC) 40 mg DAILY PO 09/14/20 09:00 09/27/20 08:36 Rosuvastatin Calcium (Crestor) 20 mg QHS PO 09/13/20 21:00 09/26/20 21:14 Senna (Senokot) 1 tab QHS PO 09/13/20 21:00 09/26/20 21:14 Spironolactone (Aldactone) 12.5 mg DAILY PO 09/22/20 09:00 09/27/20 08:37 Tamsulosin HCl (Flomax) 0.4 mg QHS PO 09/13/20 21:00 09/14/20 12:50 DC 09/13/20 22:03 Tamsulosin HCl (Flomax) 0.4 mg QHS PO 09/19/20 21:00 09/26/20 21:14 Torsemide (Demadex) 20 mg DAILY@1700 PO 09/17/20 17:00 09/26/20 17:00 Torsemide (Demadex) 40 mg DAILY PO 09/15/20 09:00 09/27/20 08:37 Warfarin Sodium (Coumadin) 2 mg DAILY@17 PO 09/21/20 17:00 09/26/20 17:01 Warfarin Sodium (Coumadin) 2 mg DAILY@17 PO 09/18/20 17:00 09/20/20 11:56 DC 09/18/20 17:11 Warfarin Sodium (Coumadin) 5 mg DAILY@17 PO 09/15/20 17:00 09/15/20 07:42 DC Warfarin Sodium (Coumadin) 5 mg DAILY@17 PO 09/17/20 17:00 09/18/20 15:33 DC 09/17/20 17:30 Warfarin Sodium (Coumadin) 7.5 mg DAILY@17 PO 09/15/20 17:00 09/17/20 09:58 DC 09/16/20 17:25 WONG SIMMONS MD Sep 27, 2020 12:33
[2020-09-27 14:00] VITALS: BP 107/51
[2020-09-27] MEDS: WARFARIN SOD 2MG TAB PO SCH (17:09)
[2020-09-27] MEDS: REMEDY PHYTOPLEX Z-GUARD PASTE 113GM TUBE (FROM STOREROOM PRODUCT) TOP SCH ×2 (17:11→22:12)
[2020-09-27] MEDS ORDERED: hydrOXYzine 25 MG TAB PO PRN (18:00)
--- NOTE | 2020-09-27 19:40 | IPN ---
PROGRESS NOTE DATE: 09/27/2020 SUBJECTIVE: Mr. Manzano is seen this morning during physical rehab. He has been complaining of generalized itching and some rash on his back. He denies any nausea, vomiting, dyspnea, chest pain or leg edema. He is making some progress with rehab. PHYSICAL EXAMINATION: GENERAL: Temperature 97.5 degrees Fahrenheit, heart rate 86 per minute, respiratory rate 18 per minute, blood pressure 129/69 mmHg, oxygen saturation 96% on room air. INTAKE AND OUTPUT: Records are probably incomplete as his intake has recorded only 610 mL and output 1200. His weight is up to 75.5 kg. HEENT: Neck is supple and without JVD or thyroid enlargement. Head is atraumatic. HEART: Sounds are irregular. LUNGS: Clear to auscultation. ABDOMEN: Soft, benign. Bowel sounds normal. EXTREMITIES: Without any cyanosis or clubbing. NEUROLOGIC: He is awake, alert and at his baseline mentation. LABORATORY DATA: Today's labs show sodium 141, potassium 3.7, chloride 105, CO2 29, BUN 53 and creatinine 2.78. Hemoglobin 9.6 and hematocrit 30.8. PROBLEMS: 1. Acute kidney injury superimposed on chronic kidney disease: Kidney function has been relatively stable, but I see a mild upward trend in his serum creatinine. He has no peripheral edema at present, and I am going to cut down his diuretic dose of Torsemide to 20 mg b.i.d. He will remain on Spironolactone 12.5 mg daily. 2. Congestive heart failure: Volume status is very well compensated and he is probably slightly over diuresed. His diuretic dose is being adjusted as stated above. 3. Anemia: His anemia is stable and likely to improve. He should continue with iron supplement. 4. Generalized itching: I am not sure about the etiology of his itching. I would recommend treating symptomatically. I do not feel that his itching is related to kidney disease as he does not have any risk of uremia with GFR about 24 mL per minute. When we repeat his labs, we will get a renal profile to check for phosphorus level as hyperphosphatemia can certainly cause itching.
[2020-09-27 22:00] VITALS: BP 118/76
[2020-09-27] MEDS: FINASTERIDE 5 MG TAB PO SCH (22:08)
[2020-09-27] MEDS: FOLIC ACID 1 MG TAB PO SCH (22:09)
[2020-09-27] MEDS: ROSUVASTATIN 10 MG TAB (CRESTOR) PO SCH (22:09)
[2020-09-27] MEDS: TAMSULOSIN 0.4 MG CAP PO SCH (22:09)
[2020-09-27] MEDS: hydrOXYzine 25 MG TAB PO SCH (22:09)
[2020-09-27] MEDS: ASPIRIN 81MG ENTERIC TABLET PO SCH (22:09)
[2020-09-27] MEDS: SENNA 8.6 MG TAB (SENOKOT) PO SCH (22:09)
[2020-09-28] MEDS: ACETAMINOPHEN TAB 650MG DOSE (2X325MG) PO PRN ×3 (01:25→16:56)
[2020-09-28] MEDS: IPRATROPIUM 0.5MG/ALBUTEROL 2.5MG INH SOL UD 3ML (DUONEB) NEB SCH ×4 (01:54→20:00)
[2020-09-28 06:00] VITALS: BP 115/75
[2020-09-28 07:15] LABS: INR 2.32
--- NOTE | 2020-09-28 07:32 | IPNPDOC ---
PM&R Progress Note DATE OF SERVICE: Sep 28, 2020 Credit Specialist Progress Note Subjective: Patient reporting he slept well and is feeling very energetic today. REVIEW OF SYSTEMS: The following is a completed review of systems and has been reviewed. Review of systems otherwise unremarkable. PAIN: Patient self reports no pain EYES: No recent vision changes EARS, NOSE, & THROAT: No throat pain, or dysphagia, or rhinorrhea CARDIOVASCULAR: Denies chest pain or palpitations PULMONARY: Denies shortness of breath GASTROINTESTINAL: Denies constipation/diarrhea GENITOURINARY: denies dysuria MUSCULOSKELETAL: generalized weakness NEUROLOGICAL:denies tremor, +bilat LE and UE paresthesias HEMATOLOGICAL: denies easy bruising SKIN: +back rash PSYCHIATRIC: Unremarkable All other review of systems found to be negative. PHYSICAL EXAMINATION: VITAL SIGNS: Please see below. GENERAL: Pleasant and cooperative. No acute distress. HEENT: PERRL. Extraocular movements intact. mild left facial droop CARDIOVASCULAR: Regular rate and rhythm. No murmurs, rubs, or gallops LUNGS: Clear to auscultation bilaterally. No wheezes. No rhonchi ABDOMEN: Soft, nontender, nondistended. Positive bowel sounds. Normal active bowel sounds NEUROLOGICAL: Alert and oriented times three. Cranial nerves II through XII grossly intact. 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 Rehab- PT/OT advance mobility and ADLs, strengthen/stretch/maintain ROM all 4limbs 2. Neuro- patient with left sided weakness and facial droop not acute, CT negative for acute bleed or infarct, patient with stents in his LE so unable to get MRI -peripheral polyneuropathy possibly due to PVD and/or spinal stenosis 3. Cardiac- hx of Afib and aortic valve replacement (bovine) on Warfarin and metoprolol, monitor daily INRs, hx CAD s/p CABG c/u ASA -probable diastolic CHF- daily weights, fluid restrict, renal following closely for fluid management- diuretics per their recs -HLD- c/u statin 4. Resp- hx of COPD, not on home 02, recent ECHO showing moderate pulmonary HTN, supplemental oxygen , c/u duonebs, monitor for infection 5. renal- oliguric ARF improving, plan for HD on hold at this point, renal following closely 6. - hx of BPH, c/u finasteride,and flomax, patient with high PVRs over the weekend, [place] placed- will need urology f/u -monitor for hematuria 7. GI ppx- omeprazole 8. DVT ppx- on warfarin -dopplers negative for DVT 9. Pain- tylnenol prn 10. Skin- urticarial rash on back resolved, c/u atarax qhs and prn , c/u hydrocortisone cream and aveeno, discuss with renal and not concerned for uremic symptoms at this time 11. Dispo- 10-03-20 to home, progressing towards goals Allergies Coded Allergies: No Known Allergies (Unverified , 01/28/19) Vital Signs Vital Signs Date Time Temp Pulse Resp B/P (MAP) Pulse Ox O2 Delivery O2 Flow Rate FiO2 09/28/20 06:00 97.4 87 20 115/75 (88) 95 Room Air Laboratory Data Labs 24H Laboratory Tests 2 09/28/20 06:38: Prothrombin Time 26.0H, Prothromb Time International Ratio 2.32 Current Medications Current Medications Current Medications Medications (Trade) Dose Ordered Sig/Anju Route PRN Reason Start Time Stop Time Status Last Admin Dose Admin Acetaminophen (Tylenol Tab) 650 mg Q4HP PRN PO fevrer/MILD PAIN (PS 1-4) 09/13/20 16:15 09/28/20 01:25 Albuterol/ Ipratropium (Duoneb (Ipr 0.5mg/Alb 2.5mg)) 3 ml RQ6H NEB 09/13/20 20:00 09/25/20 20:34 Allopurinol (Zyloprim) 100 mg DAILY PO 09/14/20 09:00 09/13/20 16:56 DC Aspirin (Ecotrin) 81 mg QHS PO 09/13/20 21:00 09/27/20 22:09 Bisacodyl (Dulcolax Suppository) 10 mg DAILYPRN PRN [place] CONSTIPATION 09/13/20 16:15 Calcitriol (Rocaltrol) 0.25 mcg Q2D PO 09/14/20 09:00 09/26/20 07:55 Colloidal Oatmeal (Aveeno) USE ON BACK Q6H PRN TOP back itch 09/26/20 10:30 Darbepoetin Bharat (Aranesp) 200 mcg Mo@0900 SC 09/18/20 09:00 09/25/20 10:45 Docusate Sodium (Colace) 100 mg BID PO 09/13/20 21:00 09/27/20 22:09 Ferrous Gluconate (Fergon) 324 mg DAILY PO 09/14/20 09:00 09/27/20 08:37 Finasteride (Proscar) 5 mg QHS PO 09/13/20 21:00 09/27/20 22:08 Folic Acid (Folic Acid) 1 mg QHS PO 09/13/20 21:00 09/27/20 22:09 Furosemide (Lasix) 40 mg BID@09,17 PO 09/13/20 17:00 09/14/20 11:47 DC Gemfibrozil (Lopid) 600 mg DAILY PO 09/14/20 09:00 09/13/20 16:53 DC Home Med (Med Rec Complete!) ASDIRECTED XX 09/13/20 16:30 09/13/20 16:31 DC Hydrocortisone (Proctosol Hc) apply to back TID TOP 09/26/20 16:00 09/27/20 22:12 Hydroxyzine HCl (Atarax) 25 mg Q6HP PRN PO ITCHING 09/27/20 18:00 Hydroxyzine HCl (Atarax) 25 mg QHS PO 09/27/20 21:00 09/27/20 22:09 Lactobacillus Acidophilus (Bacid) 2 ea BID PO 09/13/20 21:00 09/27/20 22:09 Metoprolol Tartrate (Lopressor) 6.25 mg BID PO 09/20/20 09:00 09/20/20 10:07 DC Metoprolol Tartrate (Lopressor) 6.25 mg BID PO 09/20/20 21:00 09/27/20 22:10 Metoprolol Tartrate (Lopressor) 6.25 mg Q6H PO 09/14/20 12:00 09/19/20 22:10 DC 09/19/20 17:27 Metoprolol Tartrate (Lopressor) 12.5 mg BID PO 09/13/20 21:00 09/14/20 12:23 DC Nystatin (Mycostatin Powder, Nystop) 1 dose BID TOP 09/13/20 21:00 09/27/20 22:12 Omeprazole (PriLOSEC) 40 mg DAILY PO 09/14/20 09:00 09/27/20 08:36 Rosuvastatin Calcium (Crestor) 20 mg QHS PO 09/13/20 21:00 09/27/20 22:09 Senna (Senokot) 1 tab QHS PO 09/13/20 21:00 09/27/20 22:09 Spironolactone (Aldactone) 12.5 mg DAILY PO 09/22/20 09:00 09/27/20 08:37 Tamsulosin HCl (Flomax) 0.4 mg QHS PO 09/13/20 21:00 09/14/20 12:50 DC 09/13/20 22:03 Tamsulosin HCl (Flomax) 0.4 mg QHS PO 09/19/20 21:00 09/27/20 22:09 Torsemide (Demadex) 20 mg DAILY PO 09/28/20 09:00 Torsemide (Demadex) 20 mg DAILY@1700 PO 09/17/20 17:00 09/27/20 17:09 Torsemide (Demadex) 40 mg DAILY PO 09/15/20 09:00 09/27/20 18:21 DC 09/27/20 08:37 Warfarin Sodium (Coumadin) 2 mg DAILY@17 PO 09/21/20 17:00 09/27/20 17:09 Warfarin Sodium (Coumadin) 2 mg DAILY@17 PO 09/18/20 17:00 09/20/20 11:56 DC 09/18/20 17:11 Warfarin Sodium (Coumadin) 5 mg DAILY@17 PO 09/15/20 17:00 09/15/20 07:42 DC Warfarin Sodium (Coumadin) 5 mg DAILY@17 PO 09/17/20 17:00 09/18/20 15:33 DC 09/17/20 17:30 Warfarin Sodium (Coumadin) 7.5 mg DAILY@17 PO 09/15/20 17:00 09/17/20 09:58 DC 09/16/20 17:25 WONG SIMMONS MD Sep 28, 2020 07:32
[2020-09-28] MEDS: METOPROLOL TART 12.5 MG PER 1/2 TAB PO SCH ×2 (09:00→20:42)
[2020-09-28] MEDS: LACTOBACILLUS ACIDOPHILUS CAP (BACID) PO SCH ×2 (09:21→20:44)
[2020-09-28] MEDS: OMEPRAZOLE 20 MG CAP PO SCH (09:21)
[2020-09-28] MEDS: CALCITRIOL 0.25 MCG CAP (S0169) PO SCH (09:21)
[2020-09-28] MEDS: DOCUSATE SODIUM 100MG CAPSULE PO SCH ×2 (09:21→20:40)
[2020-09-28] MEDS: SPIRONOLACTONE 12.5MG PER 1/2 TABLET PO SCH (09:22)
[2020-09-28] MEDS: TORSEMIDE 20 MG TAB PO SCH ×2 (09:22→16:56)
[2020-09-28] MEDS: FERROUS GLUCONATE 324 MG TAB PO SCH (09:25)
[2020-09-28] MEDS: NYSTATIN 100,000 UNITS/GM TOPICAL PWD 15 GM TOP SCH ×2 (09:32→20:41)
[2020-09-28] MEDS: REMEDY PHYTOPLEX Z-GUARD PASTE 113GM TUBE (FROM STOREROOM PRODUCT) TOP SCH ×3 (09:33→20:40)
[2020-09-28] MEDS: ANUSOL HC CREAM 30GM TOP SCH ×3 (09:33→20:41)
[2020-09-28 14:00] VITALS: BP 115/75
--- NOTE | 2020-09-28 16:49 | IPNPDOC ---
Text Note Date of Service The patient was seen on 09/28/20. NOTE Patient was seen and examined this morning. Doing well. Complaining of generalized itching. OBJECTIVE PHYSICAL EXAMINATION: VITAL SIGNS: please see below General: NAD, comfortable HEENT: PERRLA, EOMI, sclerae clear, mild L facial droop Neck: supple, normal ROM, no JVD Respiratory: lungs CTAB, no wheeze, no rales, no crackles CVS: RRR, normal S1, S2, no murmurs Abdo: soft, no masses, no hepatosplenomegaly, BS+, no rebound tenderness Extremities: no edema, pulses 2+ MSK: no joint deformities, normal ROM Neuro: no focal neuro deficits, moving all 4 extremities, CN2-12 intact. Psych: calm, cooperative, AAO x 3 LABORATORY DATA, IMAGING STUDIES, MICROBIOLOGY: Please see below. ASSESSMENT AND PLAN: 80 yo M with a hx of COPD, CAD s/p CABG, s/p AVR (bovine), PVD (s/p bilateral LE stens), CKD, prostate cancer, who was transfered from [facility] for higher level of care due to hypotension and acute renal failure with hematuria, acute decompensated CHF and metabolic acidosis. Nephrology was consulted and patient received CVVHD, transitioned to intermittent HD and now off HD. Admitted to ARU for ongoing rehab needs. 1) Acute renal failure on CKD 3: Non-oluguiric, responded to diuretics. nephrology following, removed HD catheter from L groin 2)Anemia of Kidney Disease : Stable , epo as per nephrology 3) Diastolic CHF: Continue metoprolol, on aldectone and torsamide at the reduced dose as per nephro. I/O monitoring. 2gm Na diet. 4) Atrial fibrillation continue with metoprolol and warfarin 5) hx of BPH, Prostate Ca. cont finasteride and flomax due to labile BPs 6) Generalized itching: Advanced CKD related. Continue symptomatic treatment. Drugs revieved. Disposition as per primary. VS,Fishbone, I+O VS, Fishbone, I+O Vital Signs Date Time Temp Pulse Resp B/P (MAP) Pulse Ox O2 Delivery O2 Flow Rate FiO2 09/28/20 14:00 97.9 103 20 115/75 (88) 96 Room Air I&O- Last 24 Hours up to 6 AM 09/28/20 06:00 Intake Total 370 ml Output Total 650 ml Balance -280 ml HUMBERTO RODRIGES MD Sep 28, 2020 16:49
[2020-09-28] MEDS: WARFARIN SOD 2MG TAB PO SCH (16:57)
[2020-09-28 20:00] VITALS: BP 129/73
[2020-09-28] MEDS: TAMSULOSIN 0.4 MG CAP PO SCH (20:39)
[2020-09-28] MEDS: SENNA 8.6 MG TAB (SENOKOT) PO SCH (20:39)
[2020-09-28] MEDS: hydrOXYzine 25 MG TAB PO SCH (20:39)
[2020-09-28] MEDS: ROSUVASTATIN 10 MG TAB (CRESTOR) PO SCH (20:40)
[2020-09-28] MEDS: ASPIRIN 81MG ENTERIC TABLET PO SCH (20:40)
[2020-09-28] MEDS: FOLIC ACID 1 MG TAB PO SCH (20:40)
[2020-09-28] MEDS: FINASTERIDE 5 MG TAB PO SCH (20:40)
[2020-09-29] MEDS: ACETAMINOPHEN TAB 650MG DOSE (2X325MG) PO PRN ×2 (00:07→17:05)
[2020-09-29] MEDS: IPRATROPIUM 0.5MG/ALBUTEROL 2.5MG INH SOL UD 3ML (DUONEB) NEB SCH ×4 (02:00→20:00)
[2020-09-29 05:31] VITALS: BP 118/65
[2020-09-29 07:12] LABS: BASO % 0.6 % (0.0-1.0); EOS # 0.4 10^3/uL (0.0-0.5); HEMOGLOBIN 10.2 g/dl (13.5-17.5); LYMPH # 1.1 10^3/uL (1.5-5.0); MEAN CORPUSCULAR HEMOGLOBIN 31.8 pg (27.0-33.0); MEAN CORPUSCULAR HGB CONC 31.9 g/dl (32.0-36.5); MEAN CORPUSCULAR VOLUME 99.7 fl (80.0-96.0); MONO # 0.4 10^3/uL (0.0-0.8); MONO % 9.1 % (2.0-8.0); NEUTROPHILS # 2.8 10^3/uL (1.5-8.5); NEUTROPHILS % 58.9 % (36.0-66.0); PLATELET COUNT, AUTOMATED 174 10^3/uL (150-450); RED BLOOD COUNT 3.21 10^6/uL (4.30-6.10); WHITE BLOOD COUNT 4.7 10^3/uL (4.0-10.0)
[2020-09-29 07:23] LABS: INR 2.56; PROTHROMBIN TIME 28.1 SECONDS (12.5-14.3)
[2020-09-29 07:36] LABS: ALBUMIN 3.1 GM/DL (3.2-5.2); CALCIUM LEVEL 9.4 MG/DL (8.8-10.2); CREATININE FOR GFR 2.85 MG/DL (0.70-1.30); GLOMERULAR FILTRATION RATE 22.8 (>35); PHOSPHORUS LEVEL 2.6 MG/DL (2.5-4.9); POTASSIUM SERUM 3.8 MEQ/L (3.5-5.1)
[2020-09-29] MEDS: FERROUS GLUCONATE 324 MG TAB PO SCH (08:49)
[2020-09-29] MEDS: DOCUSATE SODIUM 100MG CAPSULE PO SCH ×2 (08:49→20:48)
[2020-09-29] MEDS: METOPROLOL TART 12.5 MG PER 1/2 TAB PO SCH ×2 (08:49→20:50)
[2020-09-29] MEDS: LACTOBACILLUS ACIDOPHILUS CAP (BACID) PO SCH ×2 (08:49→20:50)
[2020-09-29] MEDS: TORSEMIDE 20 MG TAB PO SCH (08:49)
[2020-09-29] MEDS: SPIRONOLACTONE 12.5MG PER 1/2 TABLET PO SCH (08:50)
[2020-09-29] MEDS: ANUSOL HC CREAM 30GM TOP SCH ×3 (08:50→20:51)
[2020-09-29] MEDS: NYSTATIN 100,000 UNITS/GM TOPICAL PWD 15 GM TOP SCH ×2 (08:50→20:51)
[2020-09-29] MEDS: REMEDY PHYTOPLEX Z-GUARD PASTE 113GM TUBE (FROM STOREROOM PRODUCT) TOP SCH ×3 (08:50→20:52)
[2020-09-29] MEDS: OMEPRAZOLE 20 MG CAP PO SCH (08:50)
[2020-09-29] MEDS ORDERED: ONDANSETRON 4 MG TAB PO ONE (10:30)
--- NOTE | 2020-09-29 11:47 | REP ---
INDICATION: r/o bleed, fall while on blood thinners. COMPARISON: Comparison brain CT study 14 September 2020.. TECHNIQUE: Helical scanning is acquired. 5 mm axial images were reformatted. Coronal MPR images were generated. FINDINGS: Bone window settings demonstrate an intact bony calvarium. There is no evidence of skull fracture or incidental bony calvarial lesion. The visualized paranasal sinuses appear clear. No intraorbital abnormality is seen. On soft tissue window setting images; the lateral, third, and fourth ventricles are normal in size and position. Beavers-white differentiation pattern is normal above and below the tentorium. There are is no evidence of intracranial hemorrhage. No mass, edema, infarction, or midline shift is seen. No extra-axial fluid collection is appreciated. Prominent vascular calcifications again noted at the skull base. There is generalized volume loss. Moderate small vessel changes are noted in the periventricular white matter. These findings are unchanged. IMPRESSION: Generalized volume loss, small vessel changes, and vascular calcification. No acute intracranial abnormality. No skull fracture seen.. <Electronically signed by Aguilar Cherry > 09/29/20 [id number]
--- NOTE | 2020-09-29 12:08 | IPNPDOC ---
PM&R Progress Note DATE OF SERVICE: Sep 29, 2020 Hat Maker Progress Note Subjective: Patient seen in his room dry heaving and vomiting up phlegm, stating he has no chest pain, head ache or dizziness, but did not sleep well last night. he had a fall in therapy where he denies head trauma, but did scratch the front of his face. REVIEW OF SYSTEMS: The following is a completed review of systems and has been reviewed. Review of systems otherwise unremarkable. PAIN: Patient self reports no pain EYES: No recent vision changes EARS, NOSE, & THROAT: No throat pain, or dysphagia, or rhinorrhea CARDIOVASCULAR: Denies chest pain or palpitations PULMONARY: Denies shortness of breath GASTROINTESTINAL: Denies constipation/diarrhea GENITOURINARY: denies dysuria MUSCULOSKELETAL: generalized weakness NEUROLOGICAL:denies tremor, +bilat LE and UE paresthesias HEMATOLOGICAL: denies easy bruising SKIN: +back rash PSYCHIATRIC: Unremarkable All other review of systems found to be negative. PHYSICAL EXAMINATION: VITAL SIGNS: Please see below. GENERAL: Pleasant and cooperative. No acute distress. HEENT: PERRL. Extraocular movements intact. mild left facial droop CARDIOVASCULAR: Regular rate and rhythm. No murmurs, rubs, or gallops LUNGS: Clear to auscultation bilaterally. No wheezes. No rhonchi ABDOMEN: Soft, nontender, nondistended. Positive bowel sounds. Normal active bowel sounds NEUROLOGICAL: Alert and oriented times three. Cranial nerves II through XII grossly intact. 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 Rehab- PT/OT advance mobility and ADLs, strengthen/stretch/maintain ROM all 4limbs, ambulating with RW 2. Neuro- patient with left sided weakness and facial droop not acute, CT negative for acute bleed or infarct, patient with stents in his LE so unable to get MRI -will repeat head CT due to nausea and vomiting after fall today to r/o head trauma/bleed -peripheral polyneuropathy possibly due to PVD and/or spinal stenosis 3. Cardiac- hx of Afib and aortic valve replacement (bovine) on Warfarin and metoprolol, monitor daily INRs, hx CAD s/p CABG c/u ASA -probable diastolic CHF- daily weights, fluid restrict, renal following closely for fluid management- diuretics per their recs -HLD- c/u statin 4. Resp- hx of COPD, not on home 02, recent ECHO showing moderate pulmonary HTN, supplemental oxygen , c/u duonebs, monitor for infection 5. renal- oliguric ARF improving, plan for HD on hold at this point, renal following closely, diuretic scaled back today due to elevated BUN and patient with nausea/vomiting 6. - hx of BPH, c/u finasteride,and flomax, patient with high PVRs over the weekend, [place] placed- will need urology f/u -monitor for hematuria 7. GI ppx- omeprazole 8. DVT ppx- on warfarin -dopplers negative for DVT 9. Pain- tylnenol prn 10. Skin- urticarial rash on back resolved, c/u atarax qhs and prn , c/u hydrocortisone cream and aveeno, discuss with renal and not concerned for uremic symptoms at this time 11. Dispo- 10-03-20 to home, progressing towards goals Allergies Coded Allergies: No Known Allergies (Unverified , 01/28/19) Vital Signs Vital Signs Date Time Temp Pulse Resp B/P (MAP) Pulse Ox O2 Delivery O2 Flow Rate FiO2 09/29/20 05:31 97.6 97 20 118/65 (82) 95 Room Air Laboratory Data CBC/BMP Laboratory Tests 09/29/20 06:44 Labs 24H Laboratory Tests 2 09/29/20 06:44: Immature Granulocyte % (Auto) 0.4, Neutrophils (%) (Auto) 58.9, Lymphocytes (%) (Auto) 23.0L, Monocytes (%) (Auto) 9.1H, Eosinophils (%) (Auto) 8.0H, Basophils (%) (Auto) 0.6, Neutrophils # (Auto) 2.8, Lymphocytes # (Auto) 1.1L, Monocytes # (Auto) 0.4, Eosinophils # (Auto) 0.4, Basophils # (Auto) 0.0, Nucleated Red Blood Cells % (auto) 0.0, Prothrombin Time 28.1H, Prothromb Time International Ratio 2.56, Anion Gap 8, Glomerular Filtration Rate 22.8L, Calcium Level 9.4, Phosphorus Level 2.6, Albumin 3.1L Current Medications Current Medications Current Medications Medications (Trade) Dose Ordered Sig/Anju Route PRN Reason Start Time Stop Time Status Last Admin Dose Admin Acetaminophen (Tylenol Tab) 650 mg Q4HP PRN PO fevrer/MILD PAIN (PS 1-4) 09/13/20 16:15 09/29/20 00:07 Albuterol/ Ipratropium (Duoneb (Ipr 0.5mg/Alb 2.5mg)) 3 ml RQ6H NEB 09/13/20 20:00 09/25/20 20:34 Allopurinol (Zyloprim) 100 mg DAILY PO 09/14/20 09:00 09/13/20 16:56 DC Aspirin (Ecotrin) 81 mg QHS PO 09/13/20 21:00 09/28/20 20:40 Bisacodyl (Dulcolax Suppository) 10 mg DAILYPRN PRN GA CONSTIPATION 09/13/20 16:15 Calcitriol (Rocaltrol) 0.25 mcg Q2D PO 09/14/20 09:00 09/28/20 09:21 Colloidal Oatmeal (Aveeno) USE ON BACK Q6H PRN TOP back itch 09/26/20 10:30 Darbepoetin Bharat (Aranesp) 200 mcg Mo@0900 SC 09/18/20 09:00 09/25/20 10:45 Docusate Sodium (Colace) 100 mg BID PO 09/13/20 21:00 09/29/20 08:49 Ferrous Gluconate (Fergon) 324 mg DAILY PO 09/14/20 09:00 09/29/20 08:49 Finasteride (Proscar) 5 mg QHS PO 09/13/20 21:00 09/28/20 20:40 Folic Acid (Folic Acid) 1 mg QHS PO 09/13/20 21:00 09/28/20 20:40 Furosemide (Lasix) 40 mg BID@09,17 PO 09/13/20 17:00 09/14/20 11:47 DC Gemfibrozil (Lopid) 600 mg DAILY PO 09/14/20 09:00 09/13/20 16:53 DC Home Med (Med Rec Complete!) ASDIRECTED XX 09/13/20 16:30 09/13/20 16:31 DC Hydrocortisone (Proctosol Hc) apply to back TID TOP 09/26/20 16:00 09/29/20 08:50 Hydroxyzine HCl (Atarax) 25 mg Q6HP PRN PO ITCHING 09/27/20 18:00 Hydroxyzine HCl (Atarax) 25 mg QHS PO 09/27/20 21:00 09/29/20 10:30 DC 09/28/20 20:39 Lactobacillus Acidophilus (Bacid) 2 ea BID PO 09/13/20 21:00 09/29/20 08:49 Metoprolol Tartrate (Lopressor) 6.25 mg BID PO 09/20/20 09:00 09/20/20 10:07 DC Metoprolol Tartrate (Lopressor) 6.25 mg BID PO 09/20/20 21:00 09/29/20 08:49 Metoprolol Tartrate (Lopressor) 6.25 mg Q6H PO 09/14/20 12:00 09/19/20 22:10 DC 09/19/20 17:27 Metoprolol Tartrate (Lopressor) 12.5 mg BID PO 09/13/20 21:00 09/14/20 12:23 DC Nystatin (Mycostatin Powder, Nystop) 1 dose BID TOP 09/13/20 21:00 09/29/20 08:50 Omeprazole (PriLOSEC) 40 mg DAILY PO 09/14/20 09:00 09/29/20 08:50 Ondansetron HCl (Zofran Odt) 4 mg Q4HP PRN PO NAUSEA OR VOMITING 09/29/20 10:30 Rosuvastatin Calcium (Crestor) 20 mg QHS PO 09/13/20 21:00 09/28/20 20:40 Senna (Senokot) 1 tab QHS PO 09/13/20 21:00 09/28/20 20:39 Spironolactone (Aldactone) 12.5 mg DAILY PO 09/22/20 09:00 09/29/20 08:50 Tamsulosin HCl (Flomax) 0.4 mg QHS PO 09/13/20 21:00 09/14/20 12:50 DC 09/13/20 22:03 Tamsulosin HCl (Flomax) 0.4 mg QHS PO 09/19/20 21:00 09/28/20 20:39 Torsemide (Demadex) 20 mg DAILY PO 09/28/20 09:00 09/29/20 08:49 Torsemide (Demadex) 20 mg DAILY@1700 PO 09/17/20 17:00 09/29/20 08:45 DC 09/28/20 16:56 Torsemide (Demadex) 40 mg DAILY PO 09/15/20 09:00 09/27/20 18:21 DC 09/27/20 08:37 Warfarin Sodium (Coumadin) 2 mg DAILY@17 PO 09/21/20 17:00 09/28/20 16:57 Warfarin Sodium (Coumadin) 2 mg DAILY@17 PO 09/18/20 17:00 09/20/20 11:56 DC 09/18/20 17:11 Warfarin Sodium (Coumadin) 5 mg DAILY@17 PO 09/15/20 17:00 09/15/20 07:42 DC Warfarin Sodium (Coumadin) 5 mg DAILY@17 PO 09/17/20 17:00 09/18/20 15:33 DC 09/17/20 17:30 Warfarin Sodium (Coumadin) 7.5 mg DAILY@17 PO 09/15/20 17:00 09/17/20 09:58 DC 09/16/20 17:25 WONG SIMMONS MD Sep 29, 2020 12:08
[2020-09-29 14:00] VITALS: BP 124/84
--- NOTE | 2020-09-29 14:43 | IPNPDOC ---
Text Note Date of Service The patient was seen on 09/29/20. NOTE Patient was seen and examined this morning. Doing well. OBJECTIVE PHYSICAL EXAMINATION: VITAL SIGNS: please see below General: NAD, comfortable HEENT: PERRLA, EOMI, sclerae clear, mild L facial droop Neck: supple, normal ROM, no JVD Respiratory: lungs CTAB, no wheeze, no rales, no crackles CVS: RRR, normal S1, S2, no murmurs Abdo: soft, no masses, no hepatosplenomegaly, BS+, no rebound tenderness Extremities: no edema, pulses 2+ MSK: no joint deformities, normal ROM Neuro: no focal neuro deficits, moving all 4 extremities, CN2-12 intact. Psych: calm, cooperative, AAO x 3 LABORATORY DATA, IMAGING STUDIES, MICROBIOLOGY: Please see below. ASSESSMENT AND PLAN: 80 yo M with a hx of COPD, CAD s/p CABG, s/p AVR (bovine), PVD (s/p bilateral LE stens), CKD, prostate cancer, who was transfered from [facility] for higher level of care due to hypotension and acute renal failure with hematuria, acute decompensated CHF and metabolic acidosis. Nephrology was consulted and patient received CVVHD, transitioned to intermittent HD and now off HD. Admitted to ARU for ongoing rehab needs. 1) Acute renal failure on CKD 3: Non-oluguiric, responded to diuretics. nephrology following, removed HD catheter from L groin 2) Anemia of Kidney Disease : Stable , epo as per nephrology 3) Diastolic CHF: Continue metoprolol, on aldectone and torsamide at the reduced dose as per nephro. I/O monitoring. 2gm Na diet. 4) Atrial fibrillation continue with metoprolol and warfarin 5) hx of BPH, Prostate Ca. cont finasteride and flomax due to labile BPs Disposition as per primary. VS,Fishbone, I+O VS, Fishbone, I+O Laboratory Tests 09/29/20 06:44 Vital Signs Date Time Temp Pulse Resp B/P (MAP) Pulse Ox O2 Delivery O2 Flow Rate FiO2 09/29/20 14:00 97.9 83 22 124/84 (97) 94 Room Air I&O- Last 24 Hours up to 6 AM 09/29/20 06:00 Intake Total 560 ml Output Total 750 ml Balance -190 ml KICHLOO,HUMBERTO A. MD Sep 29, 2020 14:43
--- NOTE | 2020-09-29 15:26 | IPN ---
NEPHROLOGY PROGRESS NOTE DATE: 09/29/20 SUBJECTIVE: Mr. Manzano is seen this morning on his bedside. He is sitting in the chair and feeling nauseated. He reports that he was in the gym for his rehab this morning when he suddenly started feeling nauseated and was brought back to his room. He is throwing up since then. He denies any abdominal pain, fever or chills. He has no dyspnea or chest pain. PHYSICAL EXAMINATION: Temperature 97.6 degrees Fahrenheit, heart rate 98 per minute and respiratory 20 per minute. Blood pressure 118/65 mmHg and oxygen saturation 95% on room air. Head: Atraumatic. Neck: Supple and without JVD or thyroid enlargement. Heart: Sounds are irregular in rhythm. Lungs: Clear to auscultation. Abdomen: Soft and nontender. Bowel sounds are present. Extremities: Without any cyanosis or clubbing. There is no edema on lower extremities. Neurologically: He is awake, alert and oriented times 3. LABORATORY DATA: Today's labs show WBC count 4.7, hemoglobin 10.2 and hematocrit 32. Sodium 143, potassium 3.8, CO2 29, BUN 53, creatinine 2.85, glucose 84 and calcium 9.4. Serum albumin is 3.1. PROBLEMS/PLAN: 1. Acute kidney injury superimposed on chronic kidney disease: Patient has slight increase in his BUN and creatinine. This is probably related to over diuresis. I am cutting down his torsemide dose to only 20 mg once a day. 2. Congestive heart failure: His volume status has been very well compensated and he is vomiting today. He is at risk for dehydration and maybe already slightly over diuresed. Diuretic dose is being cut down to 20 mg only once a day. 3. Anemia: His anemia has been stable and no urgent intervention is needed. 4. Vomiting: Etiology is uncertain. He did have a fall which was controlled and he did not hit his head. He already had a CT scan of head done so far which did not show any acute bleed or infarct. I think his vomiting can be treated symptomatically.
[2020-09-29] MEDS: WARFARIN SOD 2MG TAB PO SCH (17:05)
[2020-09-29 19:53] VITALS: BP 130/72
[2020-09-29] MEDS: TAMSULOSIN 0.4 MG CAP PO SCH (20:48)
[2020-09-29] MEDS: FINASTERIDE 5 MG TAB PO SCH (20:48)
[2020-09-29] MEDS: ROSUVASTATIN 10 MG TAB (CRESTOR) PO SCH (20:48)
[2020-09-29] MEDS: SENNA 8.6 MG TAB (SENOKOT) PO SCH (20:48)
[2020-09-29] MEDS: ASPIRIN 81MG ENTERIC TABLET PO SCH (20:50)
[2020-09-29] MEDS: FOLIC ACID 1 MG TAB PO SCH (20:50)
[2020-09-30] MEDS: IPRATROPIUM 0.5MG/ALBUTEROL 2.5MG INH SOL UD 3ML (DUONEB) NEB SCH ×4 (01:52→19:25)
[2020-09-30 05:07] VITALS: BP 113/67
[2020-09-30 06:41] LABS: INR 2.54; PROTHROMBIN TIME 27.9 SECONDS (12.5-14.3)
[2020-09-30] MEDS: METOPROLOL TART 12.5 MG PER 1/2 TAB PO SCH ×2 (09:00→20:27)
[2020-09-30] MEDS: DOCUSATE SODIUM 100MG CAPSULE PO SCH ×2 (09:13→20:26)
[2020-09-30] MEDS: ACETAMINOPHEN TAB 650MG DOSE (2X325MG) PO PRN ×2 (09:14→17:04)
[2020-09-30] MEDS: LACTOBACILLUS ACIDOPHILUS CAP (BACID) PO SCH ×2 (09:14→21:11)
[2020-09-30] MEDS: FERROUS GLUCONATE 324 MG TAB PO SCH (09:14)
[2020-09-30] MEDS: CALCITRIOL 0.25 MCG CAP (S0169) PO SCH (09:15)
[2020-09-30] MEDS: OMEPRAZOLE 20 MG CAP PO SCH (09:15)
[2020-09-30] MEDS: TORSEMIDE 20 MG TAB PO SCH (09:16)
[2020-09-30] MEDS: SPIRONOLACTONE 12.5MG PER 1/2 TABLET PO SCH (09:16)
[2020-09-30] MEDS: NYSTATIN 100,000 UNITS/GM TOPICAL PWD 15 GM TOP SCH ×2 (09:18→20:33)
[2020-09-30] MEDS: ANUSOL HC CREAM 30GM TOP SCH ×3 (09:20→20:33)
[2020-09-30] MEDS: REMEDY PHYTOPLEX Z-GUARD PASTE 113GM TUBE (FROM STOREROOM PRODUCT) TOP SCH ×3 (09:20→20:34)
--- NOTE | 2020-09-30 13:10 | IPN ---
PROGRESS NOTE DATE: 09/30/2020 SUBJECTIVE: Patient was seen and examined at the bedside today morning. He was actually sitting in the sofa in the rehabilitation unit when I saw him. He still has an indwelling Naidu catheter at this time. He denies any active complaints. OBJECTIVE: Temperature is 97.4 degrees Fahrenheit, blood pressure 113/67, pulse is 94, respiratory rate of 20, saturating 94% on room air. Intake and output: Urine output recorded is 275 mL since overnight. Weight in the bed scale is 74.1 kg. PHYSICAL EXAMINATION: GENERAL: Patient is awake, alert, oriented times three, sitting up in the sofa in no apparent distress. HEAD AND NECK: Extraocular muscles intact. Pupils equally round and reactive to light.. Mucous membranes are moist. Neck is supple. There is no jugular venous distention (JVD). CARDIOVASCULAR: S1, S2, regular rate. No edema of the bilateral lower extremities. RESPIRATORY: Chest is clear to auscultation bilaterally. Bilateral equal air entry. No rales or rhonchi. ABDOMEN: Soft. Positive bowel sounds. Nontender. No organomegaly. MUSCULOSKELETAL: No clubbing or cyanosis. Pulses are 2+. CENTRAL NERVOUS SYSTEM: No focal deficit. Power is 5/5 in all extremities. GENITOURINARY: He has an indwelling Naidu catheter. LABORATORY REVIEW: CBC showed a WBC of 4.7, hemoglobin 10.2, and that is from yesterday. BMP from yesterday had a creatinine of 2.85. CURRENT INPATIENT MEDICATIONS: Patient's medications were all reviewed by myself. He is currently on torsemide 20 mg by mouth daily only and spironolactone 12.5 mg by mouth daily. ASSESSMENT AND PLAN: 1. Acute kidney injury superimposed on chronic kidney disease. Patient's creatinine was slowly rising, so his diuretic dose was cut down. His best baseline creatinine during the admission is 2.5. A renal profile will be checked in the morning. 2. Congestive heart failure (CHF) and lower extremity edema. Volume status is very well compensated. Continue current dose of torsemide 20 mg and spironolactone 12.5 mg. 3. Anemia and chronic kidney disease. Hemoglobin level is stable. Patient is on Aranesp 200 mcg once a week. 4. BPH and urinary retention. Patient has an indwelling Naidu catheter. He continues to be on finasteride and Flomax. He will need to followup with urology as outpatient.
[2020-09-30 14:00] VITALS: BP 126/80
[2020-09-30] MEDS: WARFARIN SOD 2MG TAB PO SCH (17:04)
[2020-09-30 20:20] VITALS: BP 108/71
[2020-09-30] MEDS: FOLIC ACID 1 MG TAB PO SCH (20:26)
[2020-09-30] MEDS: TAMSULOSIN 0.4 MG CAP PO SCH (20:26)
[2020-09-30] MEDS: SENNA 8.6 MG TAB (SENOKOT) PO SCH (20:27)
[2020-09-30] MEDS: ASPIRIN 81MG ENTERIC TABLET PO SCH (20:27)
[2020-09-30] MEDS: ROSUVASTATIN 10 MG TAB (CRESTOR) PO SCH (20:27)
[2020-09-30] MEDS: FINASTERIDE 5 MG TAB PO SCH (20:27)
[2020-10-01] MEDS: IPRATROPIUM 0.5MG/ALBUTEROL 2.5MG INH SOL UD 3ML (DUONEB) NEB SCH ×4 (01:43→19:30)
[2020-10-01] MEDS: ACETAMINOPHEN TAB 650MG DOSE (2X325MG) PO PRN ×3 (03:46→21:25)
[2020-10-01 03:48] VITALS: BP 107/64
[2020-10-01 06:41] LABS: INR 2.63; PROTHROMBIN TIME 28.7 SECONDS (12.5-14.3)
[2020-10-01] MEDS: ONDANSETRON 4 MG ORAL DISINTEGRATING TAB PO PRN ×2 (07:30→21:48)
[2020-10-01 08:21] VITALS: BP 99/70
[2020-10-01] MEDS: METOPROLOL TART 12.5 MG PER 1/2 TAB PO SCH ×2 (08:36→21:26)
[2020-10-01] MEDS: TORSEMIDE 20 MG TAB PO SCH (08:36)
[2020-10-01] MEDS: DOCUSATE SODIUM 100MG CAPSULE PO SCH ×2 (08:45→21:00)
[2020-10-01] MEDS: OMEPRAZOLE 20 MG CAP PO SCH (08:45)
[2020-10-01] MEDS: REMEDY PHYTOPLEX Z-GUARD PASTE 113GM TUBE (FROM STOREROOM PRODUCT) TOP SCH ×3 (08:45→21:28)
[2020-10-01] MEDS: SPIRONOLACTONE 12.5MG PER 1/2 TABLET PO SCH (08:45)
[2020-10-01] MEDS: FERROUS GLUCONATE 324 MG TAB PO SCH (08:45)
[2020-10-01] MEDS: NYSTATIN 100,000 UNITS/GM TOPICAL PWD 15 GM TOP SCH ×2 (08:45→21:28)
[2020-10-01] MEDS: LACTOBACILLUS ACIDOPHILUS CAP (BACID) PO SCH ×2 (08:45→21:24)
[2020-10-01] MEDS: ANUSOL HC CREAM 30GM TOP SCH ×3 (08:46→21:29)
[2020-10-01 08:51] LABS: CREATININE FOR GFR 2.95 MG/DL (0.70-1.30); GLOMERULAR FILTRATION RATE 21.9 (>35); MAGNESIUM LEVEL 1.2 MG/DL (1.8-2.4); POTASSIUM SERUM 3.8 MEQ/L (3.5-5.1)
[2020-10-01 08:58] LABS: HEMOGLOBIN 9.9 g/dl (13.5-17.5); MEAN CORPUSCULAR HEMOGLOBIN 31.5 pg (27.0-33.0); MEAN CORPUSCULAR HGB CONC 30.9 g/dl (32.0-36.5); MEAN CORPUSCULAR VOLUME 101.9 fl (80.0-96.0); PLATELET COUNT, AUTOMATED 200 10^3/uL (150-450); RED BLOOD COUNT 3.14 10^6/uL (4.30-6.10); WHITE BLOOD COUNT 6.6 10^3/uL (4.0-10.0)
[2020-10-01] MEDS ORDERED: PILL CUTTER 1 EACH XX PRN (11:30)
--- NOTE | 2020-10-01 12:06 | IPN ---
PROGRESS NOTE DATE: 10/01/2020 SUBJECTIVE: The patient was seen and examined at the bedside today morning in the rehab unit. His torsemide was held today because his creatinine has slightly bumped up from 2.8 to 2.9 today. Otherwise, he is hemodynamically stable and he denies any active complaints. OBJECTIVE: VITAL SIGNS: Temperature 96.8 degrees Fahrenheit, blood pressure 99/70, pulse 99, respiratory rate 20, saturating 97% on room air. INTAKE AND OUTPUT: Urine output recorded as 275 mL yesterday, 300 mL so far today since overnight, and weight on the bed scale is 69.1 kg. GENERAL: The patient is awake, alert, and oriented x3 laying in bed in no apparent distress. HEAD AND NECK: Extraocular muscles intact. Pupils equally round and reactive to light. Mucous membranes are moist. Neck is supple. There is no JVD. CARDIOVASCULAR: S1, S2, regular rate. No edema of the bilateral lower extremities. RESPIRATORY: Chest is clear to auscultation bilaterally. Bilateral equal air entry. No rales or rhonchi. ABDOMEN: Soft with positive bowel sounds and nontender. No organomegaly. MUSCULOSKELETAL: No clubbing or cyanosis. EXTREMITIES: Pulses are 2+. MARKETING INFORMATION MANAGER: No focal deficits. Power is 5/5 in all extremities. LABORATORY DATA: CBC showed WBC of 6.6, hemoglobin 9.9, platelets 200,000. BMP showed sodium 142, potassium 3.8, chloride 105, bicarb 29, BUN 52, creatinine 2.9 and it was 2.8 yesterday. CURRENT INPATIENT MEDICATIONS: Reviewed by myself. His torsemide was held because of soft blood pressures. He continues to be on metoprolol. No other significant change in the medications today as compared with yesterday. ASSESSMENT/PLAN: 1. Chronic kidney disease stage IV. The patient's renal function is slightly worse. Torsemide is on hold. Continue to monitor renal profile every other day. 2. Congestive heart failure. Volume status is optimized. Soft blood pressures and rising creatinine were noted and torsemide was held for two days. 3. Anemia and chronic kidney disease. The patient continues to be on Aranesp once a week. 4. BPH and urinary retention. He has an indwelling Naidu catheter. Continue Flomax and finasteride.
[2020-10-01] MEDS: MAGNESIUM GLUCONATE 500 MG TAB PO SCH ×2 (13:31→21:26)
[2020-10-01 14:00] VITALS: BP 117/79
[2020-10-01] MEDS: WARFARIN SOD 2MG TAB PO SCH (16:49)
[2020-10-01] MEDS: SENNA 8.6 MG TAB (SENOKOT) PO SCH (21:00)
[2020-10-01] MEDS: TAMSULOSIN 0.4 MG CAP PO SCH (21:24)
[2020-10-01] MEDS: ROSUVASTATIN 10 MG TAB (CRESTOR) PO SCH (21:25)
[2020-10-01] MEDS: FOLIC ACID 1 MG TAB PO SCH (21:25)
[2020-10-01] MEDS: FINASTERIDE 5 MG TAB PO SCH (21:25)
[2020-10-01] MEDS: ASPIRIN 81MG ENTERIC TABLET PO SCH (21:26)
[2020-10-02] MEDS: IPRATROPIUM 0.5MG/ALBUTEROL 2.5MG INH SOL UD 3ML (DUONEB) NEB SCH ×4 (00:51→19:37)
[2020-10-02 07:06] LABS: BASO % 0.4 % (0.0-1.0); EOS # 0.1 10^3/uL (0.0-0.5); HEMATOCRIT 35.4 % (42.0-52.0); HEMOGLOBIN 10.8 g/dl (13.5-17.5); LYMPH # 0.9 10^3/uL (1.5-5.0); LYMPH % 11.2 % (24.0-44.0); MEAN CORPUSCULAR HEMOGLOBIN 31.3 pg (27.0-33.0); MEAN CORPUSCULAR HGB CONC 30.5 g/dl (32.0-36.5); MEAN CORPUSCULAR VOLUME 102.6 fl (80.0-96.0); MONO # 0.5 10^3/uL (0.0-0.8); MONO % 6.2 % (2.0-8.0); NEUTROPHILS # 6.4 10^3/uL (1.5-8.5); NEUTROPHILS % 80.9 % (36.0-66.0); PLATELET COUNT, AUTOMATED 200 10^3/uL (150-450); RED BLOOD COUNT 3.45 10^6/uL (4.30-6.10); WHITE BLOOD COUNT 7.9 10^3/uL (4.0-10.0)
[2020-10-02 07:15] LABS: INR 2.82; PROTHROMBIN TIME 30.3 SECONDS (12.5-14.3)
[2020-10-02 07:24] LABS: CREATININE FOR GFR 2.91 MG/DL (0.70-1.30); GLOMERULAR FILTRATION RATE 22.3 (>35); POTASSIUM SERUM 4.2 MEQ/L (3.5-5.1)
[2020-10-02] MEDS: OMEPRAZOLE 20 MG CAP PO SCH (09:00)
[2020-10-02] MEDS: LACTOBACILLUS ACIDOPHILUS CAP (BACID) PO SCH ×2 (09:00→20:30)
[2020-10-02] MEDS: SPIRONOLACTONE 12.5MG PER 1/2 TABLET PO SCH (09:00)
[2020-10-02] MEDS: DOCUSATE SODIUM 100MG CAPSULE PO SCH ×2 (09:00→20:33)
[2020-10-02] MEDS: ONDANSETRON 4 MG ORAL DISINTEGRATING TAB PO PRN ×2 (09:00→18:41)
[2020-10-02] MEDS: FERROUS GLUCONATE 324 MG TAB PO SCH (09:00)
[2020-10-02] MEDS: METOPROLOL TART 12.5 MG PER 1/2 TAB PO SCH ×2 (09:00→20:33)
[2020-10-02] MEDS: CALCITRIOL 0.25 MCG CAP (S0169) PO SCH (09:01)
[2020-10-02] MEDS: MAGNESIUM GLUCONATE 500 MG TAB PO SCH ×2 (09:01→20:31)
[2020-10-02] MEDS: NYSTATIN 100,000 UNITS/GM TOPICAL PWD 15 GM TOP SCH ×2 (09:06→20:34)
[2020-10-02] MEDS: ANUSOL HC CREAM 30GM TOP SCH ×3 (09:07→20:34)
[2020-10-02] MEDS: REMEDY PHYTOPLEX Z-GUARD PASTE 113GM TUBE (FROM STOREROOM PRODUCT) TOP SCH ×3 (09:07→20:33)
--- NOTE | 2020-10-02 11:45 | IPNPDOC ---
PM&R Progress Note DATE OF SERVICE: Oct 02, 2020 Executive Relations Specialist Progress Note Subjective: Patient reporting that despite nausea and vomiting over the weekend he had a good nap this morning and feels more like himself. He would like to try taking atarax again to help him sleep as he states he has had difficulty sleeping since its continuation. REVIEW OF SYSTEMS: The following is a completed review of systems and has been reviewed. Review of systems otherwise unremarkable. PAIN: Patient self reports no pain EYES: No recent vision changes EARS, NOSE, & THROAT: No throat pain, or dysphagia, or rhinorrhea CARDIOVASCULAR: Denies chest pain or palpitations PULMONARY: Denies shortness of breath GASTROINTESTINAL: +nausea/vomiting GENITOURINARY: denies dysuria MUSCULOSKELETAL: generalized weakness NEUROLOGICAL:denies tremor, +bilat LE and UE paresthesias HEMATOLOGICAL: denies easy bruising SKIN: +back rash PSYCHIATRIC: Unremarkable All other review of systems found to be negative. PHYSICAL EXAMINATION: VITAL SIGNS: Please see below. GENERAL: Pleasant and cooperative. No acute distress. HEENT: PERRL. Extraocular movements intact. mild left facial droop CARDIOVASCULAR: Regular rate and rhythm. No murmurs, rubs, or gallops LUNGS: Clear to auscultation bilaterally. No wheezes. No rhonchi ABDOMEN: Soft, nontender, nondistended. Positive bowel sounds. Normal active bowel sounds NEUROLOGICAL: Alert and oriented times three. Cranial nerves II through XII grossly intact. Sensation grossly diminished to light touch in stocking/glove pattern) EXTREMITIES: RUE elbow flexion/extension 5/5, wrist extension 5/5, filter changer 4/5 (finger deformity from old injury), RLE 5/5, Left elbow flexion/extension wrist extension, filter changer 3+/5, left hip flexors >3/5 (limited due to groin pain) knee extension 4/5, ankle DF 3+/5 (+) bilat LE edema, LUE edema SKIN: no sacral ulcers, +erythematous papular rash across back (improved) ASSESSMENT:80-year-old M with past medical history of COPD, CHF who presents status post oliguric renal failure PLAN: 1. Rehab- PT/OT advance mobility and ADLs, strengthen/stretch/maintain ROM all 4limbs, ambulating with RW 2. Neuro- patient with left sided weakness and facial droop not acute, CT negative for acute bleed or infarct, patient with stents in his LE so unable to get MRI -will repeat head CT due to nausea and vomiting after fall today to r/o head trauma/bleed -peripheral polyneuropathy possibly due to PVD and/or spinal stenosis 3. Cardiac- hx of Afib and aortic valve replacement (bovine) on Warfarin and metoprolol, monitor daily INRs, hx CAD s/p CABG c/u ASA -probable diastolic CHF- daily weights, fluid restrict, renal following closely for fluid management- diuretics per their recs -HLD- c/u statin 4. Resp- hx of COPD, not on home 02, recent ECHO showing moderate pulmonary HTN, supplemental oxygen , c/u duonebs, monitor for infection -will order CXR to r/o aspiration PNA due to vomiting over the weekend and order Resp panel 5. renal- oliguric ARF improving, plan for HD on hold at this point, renal following closely, diuretic on hold due to elevated BUN and patient with persistent nausea/vomiting 6. - hx of BPH, c/u finasteride,and flomax, patient with high PVRs over the weekend, [place] placed- will need urology f/u -monitor for hematuria 7. GI ppx- omeprazole 8. DVT ppx- on warfarin -dopplers negative for DVT 9. Pain- tylnenol prn 10. Skin- urticarial rash on back resolved, c/u atarax qhs and prn , c/u hydrocortisone cream and aveeno 11. Dispo- 10-03-20 to home, progressing towards goals Allergies Coded Allergies: No Known Allergies (Unverified , 01/28/19) Vital Signs Vital Signs Date Time Temp Pulse Resp B/P (MAP) Pulse Ox O2 Delivery O2 Flow Rate FiO2 10/02/20 09:00 113 113/62 10/02/20 06:00 97.4 18 96 Room Air Laboratory Data CBC/BMP Laboratory Tests 10/02/20 06:51 Labs 24H Laboratory Tests 2 10/02/20 06:51: Immature Granulocyte % (Auto) 0.3, Neutrophils (%) (Auto) 80.9H, Lymphocytes (%) (Auto) 11.2L, Monocytes (%) (Auto) 6.2, Eosinophils (%) (Auto) 1.0, Basophils (%) (Auto) 0.4, Neutrophils # (Auto) 6.4, Lymphocytes # (Auto) 0.9L, Monocytes # (Auto) 0.5, Eosinophils # (Auto) 0.1, Basophils # (Auto) 0.0, Nucleated Red Blood Cells % (auto) 0.0, Prothrombin Time 30.3H, Prothromb Time International Ratio 2.82, Anion Gap 12, Glomerular Filtration Rate 22.3L, Calcium Level 9.0 Current Medications Current Medications Current Medications Medications (Trade) Dose Ordered Sig/Anju Route PRN Reason Start Time Stop Time Status Last Admin Dose Admin Acetaminophen (Tylenol Tab) 650 mg Q4HP PRN PO fevrer/MILD PAIN (PS 1-4) 09/13/20 16:15 10/02/20 11:23 DC 10/01/20 21:25 Albuterol/ Ipratropium (Duoneb (Ipr 0.5mg/Alb 2.5mg)) 3 ml RQ6H NEB 09/13/20 20:00 09/25/20 20:34 Allopurinol (Zyloprim) 100 mg DAILY PO 09/14/20 09:00 09/13/20 16:56 DC Aspirin (Ecotrin) 81 mg QHS PO 09/13/20 21:00 10/01/20 21:26 Bisacodyl (Dulcolax Suppository) 10 mg DAILYPRN PRN [place] CONSTIPATION 09/13/20 16:15 Calcitriol (Rocaltrol) 0.25 mcg Q2D PO 09/14/20 09:00 10/02/20 09:01 Colloidal Oatmeal (Aveeno) USE ON BACK Q6H PRN TOP back itch 09/26/20 10:30 Darbepoetin Bharat (Aranesp) 200 mcg Mo@0900 SC 09/18/20 09:00 10/02/20 10:59 DC 09/25/20 10:45 Darbepoetin Bharat (Aranesp) 200 mcg Mo@0900 SC 10/09/20 09:00 Docusate Sodium (Colace) 100 mg BID PO 09/13/20 21:00 10/01/20 08:45 Ferrous Gluconate (Fergon) 324 mg DAILY PO 09/14/20 09:00 10/02/20 11:24 DC 10/02/20 09:00 Finasteride (Proscar) 5 mg QHS PO 09/13/20 21:00 10/01/20 21:25 Folic Acid (Folic Acid) 1 mg QHS PO 09/13/20 21:00 10/01/20 21:25 Furosemide (Lasix) 40 mg BID@09,17 PO 09/13/20 17:00 09/14/20 11:47 DC Gemfibrozil (Lopid) 600 mg DAILY PO 09/14/20 09:00 09/13/20 16:53 DC Home Med (Med Rec Complete!) ASDIRECTED XX 09/13/20 16:30 09/13/20 16:31 DC Hydrocortisone (Proctosol Hc) apply to back TID TOP 09/26/20 16:00 10/02/20 09:07 Hydroxyzine HCl (Atarax) 25 mg Q6HP PRN PO ITCHING 09/27/20 18:00 Hydroxyzine HCl (Atarax) 25 mg QHS PO 09/27/20 21:00 09/29/20 10:30 DC 09/28/20 20:39 Lactobacillus Acidophilus (Bacid) 2 ea BID PO 09/13/20 21:00 10/02/20 09:00 Magnesium Gluconate (Magnesium Gluconate) 250 mg BID PO 10/01/20 13:00 10/02/20 09:01 Metoprolol Tartrate (Lopressor) 6.25 mg BID PO 09/20/20 09:00 09/20/20 10:07 DC Metoprolol Tartrate (Lopressor) 6.25 mg BID PO 09/20/20 21:00 10/01/20 21:26 Metoprolol Tartrate (Lopressor) 6.25 mg Q6H PO 09/14/20 12:00 09/19/20 22:10 DC 09/19/20 17:27 Metoprolol Tartrate (Lopressor) 12.5 mg BID PO 09/13/20 21:00 09/14/20 12:23 DC Nystatin (Mycostatin Powder, Nystop) 1 dose BID TOP 09/13/20 21:00 10/02/20 09:06 Omeprazole (PriLOSEC) 40 mg DAILY PO 09/14/20 09:00 10/02/20 09:00 Ondansetron HCl (Zofran Odt) 4 mg Q4HP PRN PO NAUSEA OR VOMITING 09/29/20 10:30 10/02/20 09:00 Rosuvastatin Calcium (Crestor) 20 mg QHS PO 09/13/20 21:00 10/01/20 21:25 Senna (Senokot) 1 tab QHS PO 09/13/20 21:00 10/02/20 11:26 DC 09/30/20 20:27 Spironolactone (Aldactone) 12.5 mg DAILY PO 09/22/20 09:00 10/02/20 11:24 DC 10/01/20 08:45 Tamsulosin HCl (Flomax) 0.4 mg QHS PO 09/13/20 21:00 09/14/20 12:50 DC 09/13/20 22:03 Tamsulosin HCl (Flomax) 0.4 mg QHS PO 09/19/20 21:00 10/01/20 21:24 Torsemide (Demadex) 20 mg DAILY PO 09/28/20 09:00 Hold 09/30/20 09:16 Torsemide (Demadex) 20 mg DAILY@1700 PO 09/17/20 17:00 09/29/20 08:45 DC 09/28/20 16:56 Torsemide (Demadex) 40 mg DAILY PO 09/15/20 09:00 09/27/20 18:21 DC 09/27/20 08:37 Warfarin Sodium (Coumadin) 2 mg DAILY@17 PO 09/21/20 17:00 10/01/20 16:49 Warfarin Sodium (Coumadin) 2 mg DAILY@17 PO 09/18/20 17:00 09/20/20 11:56 DC 09/18/20 17:11 Warfarin Sodium (Coumadin) 5 mg DAILY@17 PO 09/15/20 17:00 09/15/20 07:42 DC Warfarin Sodium (Coumadin) 5 mg DAILY@17 PO 09/17/20 17:00 09/18/20 15:33 DC 09/17/20 17:30 Warfarin Sodium (Coumadin) 7.5 mg DAILY@17 PO 09/15/20 17:00 09/17/20 09:58 DC 09/16/20 17:25 WONG SIMMONS MD Oct 02, 2020 11:45
[2020-10-02] MEDS ORDERED: DARBEPOETIN 100 MCG/0.5 ML *NON-DIALYSIS* SYRINGE (J0881) SC ONE (12:00)
[2020-10-02 14:00] VITALS: BP 116/53
--- NOTE | 2020-10-02 14:51 | IPN ---
PROGRESS NOTE DATE: 10/02/2020 SUBJECTIVE: The patient was seen and examined at the beside today morning. He was nauseated in the morning when I saw him. His renal function is otherwise stable. Creatinine is 2.9. The patient's diuretics are on hold at this time. OBJECTIVE: VITAL SIGNS: Temperature is 97.4 degrees Fahrenheit, blood pressure is 113/62, pulse is 113, respiratory rate is 18, saturating 96% on room air. INTAKE AND OUTPUT: Urine output recorded as 700 ml yesterday, 340 ml so far today since overnight. Weight on the bed scale is 71.2 kg. GENERAL: The patient is awake, alert and oriented x3 sitting up on the sofa, nauseated at this time. HEAD AND NECK: Extraocular muscles intact. Pupils equally round and reactive to light. Mucous membranes are moist. NECK: Supple. There is no JVD. CARDIOVASCULAR: S1 and S2, regular rate. Trace edema of the bilateral lower extremities. RESPIRATORY: Chest is clear to auscultation bilaterally. Bilateral equal air entry. No rales or rhonchi. ABDOMEN: Soft, positive bowel sounds, nontender, no organomegaly. MUSCULOSKELETAL: No clubbing or cyanosis. Pulses are 2+. SUPERVISOR LACE TEARING: No focal deficit. Power is 5/5 in all extremities. LABORATORY DATA: CBC showed a WBC of 7.9, hemoglobin 10.8, platelets are 200,000. BMP showed a sodium of 142, potassium 4.2, chloride 104, bicarbonate 26, BUN 56, creatinine is 2.9, it was 2.9 yesterday as well. CURRENT INPATIENT MEDICATIONS: The patient's medications were all reviewed by myself. His Tylenol has been stopped. Iron tablet has also been stopped. Senokot was stopped by myself. I also stopped his spironolactone. Torsemide is already on hold. ASSESSMENT AND PLAN: 1. Chronic kidney disease Stage IV. Patient had acute renal failure requiring dialysis. Now, his creatinine has been staying stable at 2.9. No urgent need of hemodialysis at this time. 2. Congestive heart failure. The volume status is optimal. Spironolactone is being stopped. Torsemide will be resumed tomorrow morning. No significant volume overload at this time. 3. Anemia and chronic kidney disease. Patient is on Aranesp. Hemoglobin level is stable. 4. Nausea and vomiting. Iron tablet and Senokot have been stopped. Patient is on Zofran. I do not believe uremia is causing vomiting at this time. 5. BPH and urinary retention, continue current dose of Flomax and finasteride. He has an indwelling Naidu catheter.
[2020-10-02] MEDS ORDERED: IPRATROPIUM 0.5MG/ALBUTEROL 2.5MG INH SOL UD 3ML (DUONEB) NEB SCH (16:00)
[2020-10-02] MEDS: WARFARIN SOD 2MG TAB PO SCH (16:13)
[2020-10-02] MEDS: guaiFENesin 200 MG TAB PO SCH ×2 (16:13→20:30)
--- NOTE | 2020-10-02 17:24 | REP ---
INDICATION: recent vomiting, r/o aspiration PNA COMPARISON: 09/06/2020. TECHNIQUE: PA/Lateral FINDINGS: Lungs: Bibasilar fibro atelectatic change appears stable. No definite superimposed acute infiltrate is seen. Heart: Normal in size. Mediastinum: Mediastinal silhouette unremarkable. Pleural angles: Unremarkable.. Bones and soft tissues: There are mild degenerative changes of the spine without compression deformity. Prosthetic heart valve is noted. There are multiple sternal wires mediastinal clips present. IMPRESSION: No acute pulmonary disease. Stable chronic changes. <Electronically signed by Devon Beavers > 10/02/20 [id number]
--- NOTE | 2020-10-02 17:26 | REP ---
INDICATION: Nausea,vomit. COMPARISON: None. TECHNIQUE: Two AP views abdomen and pelvis. FINDINGS: There is normal bowel gas pattern. There is no bowel obstruction. No significantly dilated bowel loops are seen. Scattered surgical clips are seen in both inguinal regions. Linear metallic densities are seen in the left pelvis. There are diffuse vascular calcifications. There are degenerative changes of the spine. IMPRESSION: Normal bowel gas pattern. <Electronically signed by Devon Beavers > 10/02/20 [id number]
[2020-10-02 20:00] VITALS: BP 117/76
[2020-10-02] MEDS: TAMSULOSIN 0.4 MG CAP PO SCH (20:31)
[2020-10-02] MEDS: FOLIC ACID 1 MG TAB PO SCH (20:31)
[2020-10-02] MEDS: FINASTERIDE 5 MG TAB PO SCH (20:31)
[2020-10-02] MEDS: ROSUVASTATIN 10 MG TAB (CRESTOR) PO SCH (20:31)
[2020-10-02] MEDS: ASPIRIN 81MG ENTERIC TABLET PO SCH (20:31)
[2020-10-02] MEDS: hydrOXYzine 25 MG TAB PO SCH (20:32)
[2020-10-02] MEDS: ACETAMINOPHEN 500 MG TAB PO PRN (20:32)
[2020-10-03] MEDS: IPRATROPIUM 0.5MG/ALBUTEROL 2.5MG INH SOL UD 3ML (DUONEB) NEB SCH ×4 (01:04→22:00)
[2020-10-03 05:21] VITALS: BP 104/60
[2020-10-03 06:56] LABS: INR 2.78
[2020-10-03] MEDS: DOCUSATE SODIUM 100MG CAPSULE PO SCH (09:00)
[2020-10-03] MEDS: METOPROLOL TART 12.5 MG PER 1/2 TAB PO SCH ×2 (09:00→22:09)
[2020-10-03] MEDS: OMEPRAZOLE 20 MG CAP PO SCH (09:09)
[2020-10-03] MEDS: MAGNESIUM GLUCONATE 500 MG TAB PO SCH ×2 (09:09→22:04)
[2020-10-03] MEDS: LACTOBACILLUS ACIDOPHILUS CAP (BACID) PO SCH ×3 (09:10→22:05)
[2020-10-03] MEDS: guaiFENesin 200 MG TAB PO SCH ×3 (09:10→22:06)
[2020-10-03] MEDS: ACETAMINOPHEN 500 MG TAB PO PRN ×2 (09:10→22:06)
[2020-10-03] MEDS: ANUSOL HC CREAM 30GM TOP SCH ×3 (09:11→22:07)
[2020-10-03] MEDS: NYSTATIN 100,000 UNITS/GM TOPICAL PWD 15 GM TOP SCH ×2 (09:11→22:07)
[2020-10-03] MEDS: REMEDY PHYTOPLEX Z-GUARD PASTE 113GM TUBE (FROM STOREROOM PRODUCT) TOP SCH ×3 (09:12→22:07)
[2020-10-03] MEDS: TORSEMIDE 20 MG TAB PO SCH (09:35)
--- NOTE | 2020-10-03 10:17 | IPNPDOC ---
PM&R Progress Note DATE OF SERVICE: Oct 03, 2020 Hand Shaker Progress Note Subjective: Patient reporting he is still coughing up white phlegm, but reports he has been doing this for years, he no longer is nauseous, but has still been having loose stools. REVIEW OF SYSTEMS: The following is a completed review of systems and has been reviewed. Review of systems otherwise unremarkable. PAIN: Patient self reports no pain EYES: No recent vision changes EARS, NOSE, & THROAT: No throat pain, or dysphagia, or rhinorrhea CARDIOVASCULAR: Denies chest pain or palpitations PULMONARY: Denies shortness of breath GASTROINTESTINAL: nausea/vomiting (improving), +loose stools GENITOURINARY: denies dysuria MUSCULOSKELETAL: generalized weakness NEUROLOGICAL:denies tremor, +bilat LE and UE paresthesias HEMATOLOGICAL: denies easy bruising SKIN: +back rash PSYCHIATRIC: Unremarkable All other review of systems found to be negative. PHYSICAL EXAMINATION: VITAL SIGNS: Please see below. GENERAL: Pleasant and cooperative. No acute distress. HEENT: PERRL. Extraocular movements intact. mild left facial droop CARDIOVASCULAR: Regular rate and rhythm. No murmurs, rubs, or gallops LUNGS: Clear to auscultation bilaterally. No wheezes. No rhonchi ABDOMEN: Soft, nontender, nondistended. Positive bowel sounds. Normal active bowel sounds NEUROLOGICAL: Alert and oriented times three. Cranial nerves II through XII grossly intact. Sensation grossly diminished to light touch in stocking/glove pattern) EXTREMITIES: RUE elbow flexion/extension 5/5, wrist extension 5/5, dandy tender 4/5 (finger deformity from old injury), RLE 5/5, Left elbow flexion/extension wrist extension, dandy tender 3+/5, left hip flexors >3/5 (limited due to groin pain) knee extension 4/5, ankle DF 3+/5 (+) bilat LE edema, LUE edema SKIN: no sacral ulcers, +erythematous papular rash across back (improved) ASSESSMENT:80-year-old M with past medical history of COPD, CHF who presents status post oliguric renal failure PLAN: 1. Rehab- PT/OT advance mobility and ADLs, strengthen/stretch/maintain ROM all 4limbs, ambulating with RW 2. Neuro- patient with left sided weakness and facial droop not acute, CT negative for acute bleed or infarct, patient with stents in his LE so unable to get MRI - head CT due to nausea and vomiting after fall 10-02-20 negative for bleed -peripheral polyneuropathy possibly due to PVD and/or spinal stenosis 3. Cardiac- hx of Afib and aortic valve replacement (bovine) on Warfarin and metoprolol, monitor daily INRs, hx CAD s/p CABG c/u ASA -probable diastolic CHF- daily weights, fluid restrict, renal following closely for fluid management- diuretics per their recs -HLD- c/u statin 4. Resp- hx of COPD, not on home 02, recent ECHO showing moderate pulmonary HTN, supplemental oxygen , c/u duonebs, monitor for infection -CXR negative for inflitrate, however downgraded to nectar liquids today due following speech eval, CT chest ordered for concern for aspiration 5. renal- oliguric ARF improving, plan for HD on hold at this point, renal following closely, diuretic on hold due to elevated BUN and patient with persistent nausea/vomiting 6. - hx of BPH, c/u finasteride,and flomax, patient with high PVRs over the weekend, [place] placed- will need urology f/u -monitor for hematuria 7. GI ppx- omeprazole -patient with multiple days of loose foul smelling stools, functional decline in therapy, and increasing neutrophils on cbc, c diff +, started on IV flagyl- concern for impending aspiration pna given recent ct chest results, however will hold off on starting additional antibiotics at this time to avoid aggravating c diff infection and f/u tomorrow cbc, may need ID consult 8. DVT ppx- on warfarin -dopplers negative for DVT 9. Pain- tylnenol prn 10. Skin- urticarial rash on back resolved, c/u atarax qhs and prn , c/u hydrocortisone cream and aveeno 11. Dispo- 10-03-20 to home, progressing towards goals Allergies Coded Allergies: No Known Allergies (Unverified , 01/28/19) Vital Signs Vital Signs Date Time Temp Pulse Resp B/P (MAP) Pulse Ox O2 Delivery O2 Flow Rate FiO2 10/03/20 09:00 101 111/59 10/03/20 05:21 97.6 20 93 Room Air Laboratory Data Labs 24H Laboratory Tests 2 10/03/20 06:20: Prothrombin Time 30.0H, Prothromb Time International Ratio 2.78 Microbiology Microbiology 10/02/20 Respiratory Virus Panel (PCR) ([facility]) - Final, Complete Current Medications Current Medications Current Medications Medications (Trade) Dose Ordered Sig/Anju Route PRN Reason Start Time Stop Time Status Last Admin Dose Admin Acetaminophen (Tylenol Tab) 500 mg TIDP PRN PO PAIN / FEVER 10/02/20 17:15 10/03/20 09:10 Acetaminophen (Tylenol Tab) 650 mg Q4HP PRN PO fevrer/MILD PAIN (PS 1-4) 09/13/20 16:15 10/02/20 11:23 DC 10/01/20 21:25 Albuterol/ Ipratropium (Duoneb (Ipr 0.5mg/Alb 2.5mg)) 3 ml RQ6H NEB 09/13/20 20:00 09/25/20 20:34 Albuterol/ Ipratropium (Duoneb (Ipr 0.5mg/Alb 2.5mg)) 3 ml TID NEB 10/02/20 16:00 UNV Allopurinol (Zyloprim) 100 mg DAILY PO 09/14/20 09:00 09/13/20 16:56 DC Aspirin (Ecotrin) 81 mg QHS PO 09/13/20 21:00 10/02/20 20:31 Bisacodyl (Dulcolax Suppository) 10 mg DAILYPRN PRN [place] CONSTIPATION 09/13/20 16:15 Calcitriol (Rocaltrol) 0.25 mcg Q2D PO 09/14/20 09:00 10/02/20 09:01 Colloidal Oatmeal (Aveeno) USE ON BACK Q6H PRN TOP back itch 09/26/20 10:30 Darbepoetin Bharat (Aranesp) 200 mcg Mo@0900 SC 09/18/20 09:00 10/02/20 10:59 DC 09/25/20 10:45 Darbepoetin Bharat (Aranesp) 200 mcg Mo@0900 SC 10/09/20 09:00 Docusate Sodium (Colace) 100 mg BID PO 09/13/20 21:00 10/03/20 09:45 DC 10/01/20 08:45 Ferrous Gluconate (Fergon) 324 mg DAILY PO 09/14/20 09:00 10/02/20 11:24 DC 10/02/20 09:00 Finasteride (Proscar) 5 mg QHS PO 09/13/20 21:00 10/02/20 20:31 Folic Acid (Folic Acid) 1 mg QHS PO 09/13/20 21:00 10/02/20 20:31 Furosemide (Lasix) 40 mg BID@09,17 PO 09/13/20 17:00 09/14/20 11:47 DC Gemfibrozil (Lopid) 600 mg DAILY PO 09/14/20 09:00 09/13/20 16:53 DC Guaifenesin (Robitussin Tab) 400 mg TID PO 10/02/20 16:00 10/03/20 09:10 Home Med (Med Rec Complete!) ASDIRECTED XX 09/13/20 16:30 09/13/20 16:31 DC Hydrocortisone (Proctosol Hc) apply to back TID TOP 09/26/20 16:00 10/03/20 09:11 Hydroxyzine HCl (Atarax) 25 mg Q6HP PRN PO ITCHING 09/27/20 18:00 Hydroxyzine HCl (Atarax) 25 mg QHS PO 09/27/20 21:00 09/29/20 10:30 DC 09/28/20 20:39 Hydroxyzine HCl (Atarax) 25 mg QHS PO 10/02/20 21:00 10/02/20 20:32 Lactobacillus Acidophilus (Bacid) 2 ea BID PO 09/13/20 21:00 10/03/20 09:10 Magnesium Gluconate (Magnesium Gluconate) 250 mg BID PO 10/01/20 13:00 10/03/20 09:09 Metoprolol Tartrate (Lopressor) 6.25 mg BID PO 09/20/20 09:00 09/20/20 10:07 DC Metoprolol Tartrate (Lopressor) 6.25 mg BID PO 09/20/20 21:00 10/02/20 20:33 Metoprolol Tartrate (Lopressor) 6.25 mg Q6H PO 09/14/20 12:00 09/19/20 22:10 DC 09/19/20 17:27 Metoprolol Tartrate (Lopressor) 12.5 mg BID PO 09/13/20 21:00 09/14/20 12:23 DC Nystatin (Mycostatin Powder, Nystop) 1 dose BID TOP 09/13/20 21:00 10/03/20 09:11 Omeprazole (PriLOSEC) 40 mg DAILY PO 09/14/20 09:00 10/03/20 09:09 Ondansetron HCl (Zofran Odt) 4 mg Q4HP PRN PO NAUSEA OR VOMITING 09/29/20 10:30 10/02/20 18:41 Rosuvastatin Calcium (Crestor) 20 mg QHS PO 09/13/20 21:00 10/02/20 20:31 Senna (Senokot) 1 tab QHS PO 09/13/20 21:00 10/02/20 11:26 DC 09/30/20 20:27 Spironolactone (Aldactone) 12.5 mg DAILY PO 09/22/20 09:00 10/02/20 11:24 DC 10/01/20 08:45 Tamsulosin HCl (Flomax) 0.4 mg QHS PO 09/13/20 21:00 09/14/20 12:50 DC 09/13/20 22:03 Tamsulosin HCl (Flomax) 0.4 mg QHS PO 09/19/20 21:00 10/02/20 20:31 Torsemide (Demadex) 20 mg DAILY PO 09/28/20 09:00 10/03/20 09:35 Torsemide (Demadex) 20 mg DAILY@1700 PO 09/17/20 17:00 09/29/20 08:45 DC 09/28/20 16:56 Torsemide (Demadex) 40 mg DAILY PO 09/15/20 09:00 09/27/20 18:21 DC 09/27/20 08:37 Warfarin Sodium (Coumadin) 2 mg DAILY@17 PO 09/21/20 17:00 10/02/20 16:13 Warfarin Sodium (Coumadin) 2 mg DAILY@17 PO 09/18/20 17:00 09/20/20 11:56 DC 09/18/20 17:11 Warfarin Sodium (Coumadin) 5 mg DAILY@17 PO 09/15/20 17:00 09/15/20 07:42 DC Warfarin Sodium (Coumadin) 5 mg DAILY@17 PO 09/17/20 17:00 09/18/20 15:33 DC 09/17/20 17:30 Warfarin Sodium (Coumadin) 7.5 mg DAILY@17 PO 09/15/20 17:00 09/17/20 09:58 DC 09/16/20 17:25 WONG SIMMONS MD Oct 03, 2020 10:17
--- NOTE | 2020-10-03 12:01 | REP ---
INDICATION: r/o infiltrate, concnern for aspiration PNA. COMPARISON: Chest 10/02/2020, portable chest 09/06/2020 TECHNIQUE: Noncontrast imaging through the chest with coronal and sagittal reconstructions provided. FINDINGS: The lung hurtado are well inflated. Posteriorly in the lower lung zones are linear subsegmental atelectatic changes and patchy atelectasis or infiltrates also scattered in these areas. There is some basilar fibrotic change the dependent atelectatic changes are seen posteromedially in the right mid and and upper lung zone. Curvilinear fibro atelectatic change in the anterior segment of the right upper lobe also noted. I do not see evidence of pleural effusion there are no masses. There is a 5 mm pleural base nodule anterior axillary line on image 54 near the minor fissure. Similar 5 mm nodule medially adjacent to the azygos vein in the right upper lobe on image 33. A calcified granuloma is seen in the left upper lobe on image 44 There has been sternotomy with aortic valve replacement. Calcifications of the ascending, arch and descending aorta are noted with aortic ectasia but no gross aneurysm. AP diameter the ascending aorta 4.2 cm. At this level the descending aorta has diameter of 3 cm. Pulmonary arteries are prominent centrally suggesting pulmonary artery hypertension. Heavily calcified coronary arteries are noted. No pathologic sized mediastinal or hilar adenopathy is seen. There is no hiatal hernia. The upper abdomen shows that portion of spleen unremarkable. There is no hepatosplenomegaly. There is 1 calcification in the liver at the dome of the diaphragm perhaps capsular in nature. Heart is enlarged with left atrial enlargement and left ventricular enlargement. No pericardial thickening or effusion adrenal glands are intact kidneys without hydronephrosis. Gallbladder shows a few dependent stones with calcification. Portion of bowel loops included were unremarkable. No free air in the upper abdomen. The bone windows show the sternum, manubrium and medial clavicles intact the sternotomy wires were intact and the sternotomy is healed. Degenerative changes of the AC joints and glenohumeral joints but without fracture or focal lesion there visualized ribs intact spine with marginal osteophytes but no acute compression fracture. Some minor endplate depression of L1 and T11 is without any accompanying paraspinal hematoma. IMPRESSION: Bibasilar subsegmental atelectatic or infiltrative changes with areas of chronic fibrotic change in the deep sulci. This could certainly reflect some degree of aspiration although mild. Chronic changes elsewhere in the lung with curvilinear fibrotic changes bilaterally. Cardiomegaly with left atrial and ventricular enlargement. Sternotomy with aortic valve replacement and calcified tortuous aorta without aneurysm. No adenopathy, hiatal hernia, pericardial effusion or other acute mediastinal finding. Few small calcified gallstones dependent gallbladder. <Electronically signed by Mc Vance > 10/03/20 [id number]
[2020-10-03 14:00] VITALS: BP 118/71
--- NOTE | 2020-10-03 14:19 | IPN ---
PROGRESS NOTE DATE: 10/03/2020 SUBJECTIVE: Patient was seen and examined at the bedside today morning. He had the x-ray KUB done yesterday because of nausea and vomiting. X-ray showed normal bowel pattern. Some of his medications were changed yesterday. He reports his nausea is significantly better today. His diuretics were also restarted today. OBJECTIVE: Vital signs: Temperature is 97.6 degrees Fahrenheit, blood pressure 104/60, pulse is 93, respiratory rate of 20, saturating 93% on room air. Intake and output: Urine output recorded is 790 mL yesterday, 150 mL so far today since overnight. Weight in the bed scale is 71 kg. PHYSICAL EXAMINATION: GENERAL: Patient is awake, alert, oriented times three, lying in bed in no apparent distress. HEAD AND NECK: Extraocular muscles intact. Pupils equally round and reactive to light. Mucous membranes are moist. Neck is supple. There is no jugular venous distention (JVD). CARDIOVASCULAR: S1, S2, regular rate. Trace edema of the bilateral lower extremities. RESPIRATORY: Mildly decreased breath sounds at the bases with inspirator crepitations. ABDOMEN: Soft. Positive bowel sounds. Nontender. GENITOURINARY; He has an indwelling Naidu catheter. MUSCULOSKELETAL: No clubbing or cyanosis. Pulses are 2+. CENTRAL NERVOUS SYSTEM: No focal deficit. Power is 5/5 in all extremities. LABORATORY REVIEW: CBC and BMP are from yesterday. There is no new lab available today. CURRENT INPATIENT MEDICATIONS: Patient's medications were all reviewed by myself. His torsemide 20 mg by mouth daily has been restarted now, and his Colace has been stopped as well. ASSESSMENT AND PLAN: 1. Chronic kidney disease, stage IV> Patient's creatinine was 2.9 yesterday, which is slightly higher than his baseline of 2.6. Diuretics were held for 2 days. Next basic metabolic profile (BMP) will be done tomorrow morning. 2. Congestive heart failure. Volume status is okay. Spironolactone was stopped. Torsemide has been restarted. Check renal function in the morning. 3. Anemic and chronic kidney disease. Continue current dose of Aranesp. 4. Nausea and vomiting. Iron tablets, Senokot and Colace have been stopped. Nausea is significantly better. 5. BPH and urinary retention. He continues to be on Flomax and finasteride, and he has an indwelling Naidu catheter.
[2020-10-03 14:45] LABS: CLOSTRIDIUM DIFFICILE PCR POSITIVE (NEGATIVE)
[2020-10-03] MEDS: metroNIDAZOLE 500 MG in IV 1 EA IV SCH ×2 (16:06→22:58)
[2020-10-03] MEDS: WARFARIN SOD 2MG TAB PO SCH (16:07)
[2020-10-03 22:00] VITALS: BP 153/90
[2020-10-03] MEDS: ONDANSETRON 4 MG ORAL DISINTEGRATING TAB PO PRN (22:04)
[2020-10-03] MEDS: ROSUVASTATIN 10 MG TAB (CRESTOR) PO SCH (22:05)
[2020-10-03] MEDS: FOLIC ACID 1 MG TAB PO SCH (22:05)
[2020-10-03] MEDS: hydrOXYzine 25 MG TAB PO SCH (22:05)
[2020-10-03] MEDS: FINASTERIDE 5 MG TAB PO SCH (22:05)
[2020-10-03] MEDS: TAMSULOSIN 0.4 MG CAP PO SCH (22:05)
[2020-10-03] MEDS: ASPIRIN 81MG ENTERIC TABLET PO SCH (22:05)
[2020-10-04 06:00] VITALS: BP 115/70
[2020-10-04] MEDS: metroNIDAZOLE 500 MG in IV 1 EA IV SCH ×3 (06:20→23:51)
[2020-10-04] MEDS: IPRATROPIUM 0.5MG/ALBUTEROL 2.5MG INH SOL UD 3ML (DUONEB) NEB SCH ×2 (07:22→19:45)
[2020-10-04 07:32] LABS: BASO % 0.6 % (0.0-1.0); EOS # 0.4 10^3/uL (0.0-0.5); EOS % 6.7 % (0.0-3.0); HEMATOCRIT 34.4 % (42.0-52.0); HEMOGLOBIN 10.6 g/dl (13.5-17.5); LYMPH % 19.4 % (24.0-44.0); MEAN CORPUSCULAR HEMOGLOBIN 30.9 pg (27.0-33.0); MEAN CORPUSCULAR HGB CONC 30.8 g/dl (32.0-36.5); MEAN CORPUSCULAR VOLUME 100.3 fl (80.0-96.0); MONO # 0.7 10^3/uL (0.0-0.8); MONO % 12.4 % (2.0-8.0); NEUTROPHILS # 3.2 10^3/uL (1.5-8.5); NEUTROPHILS % 60.7 % (36.0-66.0); PLATELET COUNT, AUTOMATED 176 10^3/uL (150-450); RED BLOOD COUNT 3.43 10^6/uL (4.30-6.10); WHITE BLOOD COUNT 5.3 10^3/uL (4.0-10.0)
[2020-10-04 07:52] LABS: CALCIUM LEVEL 9.1 MG/DL (8.8-10.2); CREATININE FOR GFR 3.04 MG/DL (0.70-1.30); GLOMERULAR FILTRATION RATE 21.2 (>35); POTASSIUM SERUM 3.5 MEQ/L (3.5-5.1)
[2020-10-04 08:10] LABS: INR 2.79; PROTHROMBIN TIME 30.1 SECONDS (12.5-14.3)
[2020-10-04] MEDS: LACTOBACILLUS ACIDOPHILUS CAP (BACID) PO SCH ×4 (08:53→21:00)
[2020-10-04] MEDS: CALCITRIOL 0.25 MCG CAP (S0169) PO SCH (08:53)
[2020-10-04] MEDS: ONDANSETRON 4 MG ORAL DISINTEGRATING TAB PO PRN ×2 (08:53→13:08)
[2020-10-04] MEDS: MAGNESIUM GLUCONATE 500 MG TAB PO SCH ×2 (08:54→21:15)
[2020-10-04] MEDS: METOPROLOL TART 12.5 MG PER 1/2 TAB PO SCH ×2 (08:54→21:00)
[2020-10-04] MEDS: OMEPRAZOLE 20 MG CAP PO SCH (08:54)
[2020-10-04] MEDS: guaiFENesin 200 MG TAB PO SCH ×3 (08:54→21:13)
[2020-10-04] MEDS: ANUSOL HC CREAM 30GM TOP SCH ×3 (08:55→21:00)
[2020-10-04] MEDS: REMEDY PHYTOPLEX Z-GUARD PASTE 113GM TUBE (FROM STOREROOM PRODUCT) TOP SCH ×3 (08:55→21:00)
[2020-10-04] MEDS: NYSTATIN 100,000 UNITS/GM TOPICAL PWD 15 GM TOP SCH ×2 (08:55→21:00)
--- NOTE | 2020-10-04 09:14 | IPNPDOC ---
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 REVIEW OF SYSTEMS: The following is a completed review of systems and has been reviewed. Review of systems otherwise unremarkable. PAIN: Patient self reports no pain EYES: No recent vision changes EARS, NOSE, & THROAT: No throat pain, or dysphagia, or rhinorrhea CARDIOVASCULAR: Denies chest pain or palpitations PULMONARY: Denies shortness of breath GASTROINTESTINAL: nausea/vomiting (improving), +loose stools GENITOURINARY: denies dysuria MUSCULOSKELETAL: generalized weakness NEUROLOGICAL:denies tremor, +bilat LE and UE paresthesias HEMATOLOGICAL: denies easy bruising SKIN: +back rash PSYCHIATRIC: Unremarkable All other review of systems found to be negative. PHYSICAL EXAMINATION: VITAL SIGNS: Please see below. GENERAL: Pleasant and cooperative. No acute distress. HEENT: PERRL. Extraocular movements intact. mild left facial droop CARDIOVASCULAR: Regular rate and rhythm. No murmurs, rubs, or gallops LUNGS: +scattered rhonchi ABDOMEN: Soft, nontender, nondistended. Positive bowel sounds. Normal active bowel sounds NEUROLOGICAL: Alert and oriented times three. Cranial nerves II through XII grossly intact. Sensation grossly diminished to light touch in stocking/glove pattern) EXTREMITIES: RUE elbow flexion/extension 5/5, wrist extension 5/5, marketing analyst 4/5 (finger deformity from old injury), RLE 5/5, Left elbow flexion/extension wrist extension, marketing analyst 3+/5, left hip flexors >3/5 (limited due to groin pain) knee extension 4/5, ankle DF 3+/5 (+) bilat LE edema, LUE edema (improved) SKIN: no sacral ulcers, +erythematous papular rash across back (improved) ASSESSMENT:80-year-old M with past medical history of COPD, CHF who presents status post oliguric renal failure PLAN: 1. 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 Neuro- patient with left sided weakness and facial droop not acute, CT negative for acute bleed or infarct, patient with stents in his LE so unable to get MRI - head CT due to nausea and vomiting after fall 2-22-21 negative for bleed -peripheral polyneuropathy possibly due to PVD and/or spinal stenosis 3. Cardiac- hx of Afib and aortic valve replacement (bovine) on Warfarin and metoprolol, monitor daily INRs, hx CAD s/p CABG c/u ASA -probable diastolic CHF- daily weights, fluid restrict, renal following closely for fluid management- diuretics per their recs -HLD- c/u statin 4. Resp- hx of COPD, not on home , recent ECHO showing moderate pulmonary HTN, supplemental oxygen , c/u duonebs, monitor for infection -downgraded to nectar liquids 10-03-20, concern for aspiration with CT chest scan 10/03 showing, "Bibasilar subsegmental atelectatic or infiltrative changes with areas of chronic fibrotic change in the deep sulci. This could certainly reflect some degree of aspiration although mild." dicussed with medicine, ok to c/u IV flagyl for anaerobe coverage and avoid any other antibiotics while getting treated for C diff 5. renal- oliguric ARF improving, plan for HD on hold at this point, renal following closely 6. - hx of BPH, c/u finasteride,and flomax, patient with high PVRs over the weekend, [place] placed- will need urology f/u -monitor for hematuria 7. GI ppx- omeprazole -+ C diff with hx of C diff twice in the past per , c/u IV flagyl to cover possible respiratory anaerobes aspiration PNA and oral vancomycin 8. DVT ppx- on warfarin -dopplers negative for DVT 9. Pain- tylnenol prn 10. Skin- urticarial rash on back resolved, c/u atarax qhs and prn , c/u hydrocortisone cream and aveeno 11. Dispo- plan for dc home postponed due to worsening clinical picture with new c diff infection and likely aspiration PNA, medical hold in place Allergies Coded Allergies: No Known Allergies (Unverified , 01/28/19) Vital Signs Vital Signs Date Time Temp Pulse Resp B/P (MAP) Pulse Ox O2 Delivery O2 Flow Rate FiO2 10/04/20 08:54 109/67 10/04/20 06:00 97.8 93 18 94 Room Air Laboratory Data CBC/BMP Laboratory Tests 10/04/20 07:12 Labs 24H Laboratory Tests 2 10/03/20 13:30: Clostridium difficile [id number] PRESUMPTIVE NEGATIVE, Clostridium difficile Toxin (PCR) POSITIVEA 10/04/20 07:12: Immature Granulocyte % (Auto) 0.2, Neutrophils (%) (Auto) 60.7, Lymphocytes (%) (Auto) 19.4L, Monocytes (%) (Auto) 12.4H, Eosinophils (%) (Auto) 6.7H, Basophils (%) (Auto) 0.6, Neutrophils # (Auto) 3.2, Lymphocytes # (Auto) 1.0L, Monocytes # (Auto) 0.7, Eosinophils # (Auto) 0.4, Basophils # (Auto) 0.0, Nucleated Red Blood Cells % (auto) 0.0, Prothrombin Time 30.1H, Prothromb Time International Ratio 2.79, Anion Gap 9, Glomerular Filtration Rate 21.2L, Calcium Level 9.1, Phosphorus Level 2.0L, Albumin 3.0L Microbiology Microbiology 10/02/20 Respiratory Virus Panel (PCR) ([facility]) - Final, Complete Current Medications Current Medications Current Medications Medications (Trade) Dose Ordered Sig/Anju Route PRN Reason Start Time Stop Time Status Last Admin Dose Admin Acetaminophen (Tylenol Tab) 500 mg TIDP PRN PO PAIN / FEVER 10/02/20 17:15 10/03/20 22:06 Acetaminophen (Tylenol Tab) 650 mg Q4HP PRN PO fevrer/MILD PAIN (PS 1-4) 09/13/20 16:15 10/02/20 11:23 DC 10/01/20 21:25 Albuterol/ Ipratropium (Duoneb (Ipr 0.5mg/Alb 2.5mg)) 3 ml RQ6H NEB 09/13/20 20:00 09/25/20 20:34 Albuterol/ Ipratropium (Duoneb (Ipr 0.5mg/Alb 2.5mg)) 3 ml TID NEB 10/02/20 16:00 UNV Allopurinol (Zyloprim) 100 mg DAILY PO 09/14/20 09:00 09/13/20 16:56 DC Aspirin (Ecotrin) 81 mg QHS PO 09/13/20 21:00 10/03/20 22:05 Bisacodyl (Dulcolax Suppository) 10 mg DAILYPRN PRN [place] CONSTIPATION 09/13/20 16:15 Calcitriol (Rocaltrol) 0.25 mcg Q2D PO 09/14/20 09:00 10/04/20 08:53 Colloidal Oatmeal (Aveeno) USE ON BACK Q6H PRN TOP back itch 09/26/20 10:30 Darbepoetin Bharat (Aranesp) 200 mcg Mo@0900 SC 09/18/20 09:00 10/02/20 10:59 DC 09/25/20 10:45 Darbepoetin Bharat (Aranesp) 200 mcg Mo@0900 SC 10/09/20 09:00 Docusate Sodium (Colace) 100 mg BID PO 09/13/20 21:00 10/03/20 09:45 DC 10/01/20 08:45 Ferrous Gluconate (Fergon) 324 mg DAILY PO 09/14/20 09:00 10/02/20 11:24 DC 10/02/20 09:00 Finasteride (Proscar) 5 mg QHS PO 09/13/20 21:00 10/03/20 22:05 Folic Acid (Folic Acid) 1 mg QHS PO 09/13/20 21:00 10/03/20 22:05 Furosemide (Lasix) 40 mg BID@09,17 PO 09/13/20 17:00 09/14/20 11:47 DC Gemfibrozil (Lopid) 600 mg DAILY PO 09/14/20 09:00 09/13/20 16:53 DC Guaifenesin (Robitussin Tab) 400 mg TID PO 10/02/20 16:00 10/04/20 08:54 Home Med (Med Rec Complete!) ASDIRECTED XX 09/13/20 16:30 09/13/20 16:31 DC Hydrocortisone (Proctosol Hc) apply to back TID TOP 09/26/20 16:00 10/03/20 22:07 Hydroxyzine HCl (Atarax) 25 mg Q6HP PRN PO ITCHING 09/27/20 18:00 Hydroxyzine HCl (Atarax) 25 mg QHS PO 09/27/20 21:00 09/29/20 10:30 DC 09/28/20 20:39 Hydroxyzine HCl (Atarax) 25 mg QHS PO 10/02/20 21:00 10/03/20 22:05 Lactobacillus Acidophilus (Bacid) 1 ea WMHS PO 10/03/20 18:00 10/04/20 08:53 Lactobacillus Acidophilus (Bacid) 2 ea BID PO 09/13/20 21:00 10/03/20 15:01 DC 10/03/20 09:10 Magnesium Gluconate (Magnesium Gluconate) 250 mg BID PO 10/01/20 13:00 10/04/20 08:54 Metoprolol Tartrate (Lopressor) 6.25 mg BID PO 09/20/20 09:00 09/20/20 10:07 DC Metoprolol Tartrate (Lopressor) 6.25 mg BID PO 09/20/20 21:00 10/03/20 22:09 Metoprolol Tartrate (Lopressor) 6.25 mg Q6H PO 09/14/20 12:00 09/19/20 22:10 DC 09/19/20 17:27 Metoprolol Tartrate (Lopressor) 12.5 mg BID PO 09/13/20 21:00 09/14/20 12:23 DC Metronidazole 500 mg/IV Miscellaneous Supplies 100 ml @ 100 mls/hr Q8H IV 10/03/20 15:00 10/04/20 06:20 Nystatin (Mycostatin Powder, Nystop) 1 dose BID TOP 09/13/20 21:00 10/04/20 08:55 Omeprazole (PriLOSEC) 40 mg DAILY PO 09/14/20 09:00 10/04/20 08:54 Ondansetron HCl (Zofran Odt) 4 mg Q4HP PRN PO NAUSEA OR VOMITING 09/29/20 10:30 10/04/20 08:53 Rosuvastatin Calcium (Crestor) 20 mg QHS PO 09/13/20 21:00 10/03/20 22:05 Senna (Senokot) 1 tab QHS PO 09/13/20 21:00 10/02/20 11:26 DC 09/30/20 20:27 Spironolactone (Aldactone) 12.5 mg DAILY PO 09/22/20 09:00 10/02/20 11:24 DC 10/01/20 08:45 Tamsulosin HCl (Flomax) 0.4 mg QHS PO 09/13/20 21:00 09/14/20 12:50 DC 09/13/20 22:03 Tamsulosin HCl (Flomax) 0.4 mg QHS PO 09/19/20 21:00 10/03/20 22:05 Torsemide (Demadex) 20 mg DAILY PO 09/28/20 09:00 10/04/20 08:06 DC 10/03/20 09:35 Torsemide (Demadex) 20 mg DAILY@1700 PO 09/17/20 17:00 09/29/20 08:45 DC 09/28/20 16:56 Torsemide (Demadex) 40 mg DAILY PO 09/15/20 09:00 09/27/20 18:21 DC 09/27/20 08:37 Warfarin Sodium (Coumadin) 2 mg DAILY@17 PO 09/21/20 17:00 10/03/20 16:07 Warfarin Sodium (Coumadin) 2 mg DAILY@17 PO 09/18/20 17:00 09/20/20 11:56 DC 09/18/20 17:11 Warfarin Sodium (Coumadin) 5 mg DAILY@17 PO 09/15/20 17:00 09/15/20 07:42 DC Warfarin Sodium (Coumadin) 5 mg DAILY@17 PO 09/17/20 17:00 09/18/20 15:33 DC 09/17/20 17:30 Warfarin Sodium (Coumadin) 7.5 mg DAILY@17 PO 09/15/20 17:00 09/17/20 09:58 DC 09/16/20 17:25 WONG SIMMONS MD Oct 04, 2020 09:14
[2020-10-04] MEDS: VANCOMYCIN ORAL SOL 250MG/5ML ORAL SYRINGE PO SCH ×3 (13:08→23:51)
[2020-10-04 14:00] VITALS: BP 120/76
--- NOTE | 2020-10-04 18:52 | IPN ---
NEPHROLOGY PROGRESS NOTE DATE: 10/04/2020 SUBJECTIVE: The patient was seen and examined at the bedside today morning. He was still nauseated. The last 24-hour events are noted. The patient got a CT of the chest done. He also got a C-diff done which came back positive. He was started on IV Flagyl. Renal function is also slightly worse today as compared with yesterday. His creatinine has bumped up from 2.9 to 3. OBJECTIVE: VITAL SIGNS: Temperature is 98.2 degrees Fahrenheit, blood pressure 120/76, pulse is 101, respiratory rate of 18, saturating 94% on room air. INTAKE AND OUTPUT: Urine output recorded as 150 mL yesterday, 420 mL so far today since overnight. Weight in the bed scale is 78.7 kg which is not reliable at all because there is 8 kg difference since yesterday. PHYSICAL EXAMINATION: GENERAL APPEARANCE: The patient is awake, alert, oriented x3, laying in bed, mildly nauseated. HEAD AND NECK: Extraocular muscles intact. Pupils are equally round and reactive to light. Mucous membranes are moist. Neck is supple. There is no jugular venous distention. CARDIOVASCULAR: S1, S2, regular rate. EXTREMITIES: No edema of the bilateral lower extremities. RESPIRATORY: Mildly decreased breath sounds at the bases with inspiratory crackles at the bases. ABDOMEN: Distended, positive bowel sounds, mild tenderness to deep palpation. GENITOURINARY: Bladder is not palpable. MUSCULOSKELETAL: No clubbing, no cyanosis. Pulses are 2+. DIESEL TRACTOR ENGINE MECHANIC: No focal deficits. Power is 5/5 in all extremities. LAB REVIEW: CBC showed a white blood cell count of 5.3, hemoglobin is 10.6, platelet count 176. BMP showed sodium of 143, potassium 3.5, chloride 108, bicarbonate 26, BUN 56, creatinine is 3, phosphorous is 2, albumin is 3. MICROBIOLOGY: C-diff toxin came back positive. IMAGING: A CT of the chest was done yesterday which showed bilateral atelectasis with some fibrotic changes, some degree of aspiration. CURRENT INPATIENT MEDICATIONS: The patient's medications were all reviewed by myself. The patient was getting IV Flagyl which has been stopped. The patient has been started on oral Vancomycin. His Torsemide has also been stopped. ASSESSMENT AND PLAN: 1. Acute renal failure the patient's creatinine was rising and he has C-diff. Oral diuretic has been stopped. No urgent need of dialysis. 2. C-diff colitis oral Vancomycin has been started. Flagyl has been stopped. 3. Benign prostatic hypertrophy and recent urinary retention he continues to be on Flomax and Finasteride and he has an indwelling Naidu catheter. 4. Secondary hyperparathyroidism - continue current dose of Calcitriol. 5. Anemia and chronic kidney disease - continue her current dose of Aranesp once a week.
[2020-10-04 20:30] VITALS: BP 112/83
[2020-10-04] MEDS: hydrOXYzine 25 MG TAB PO SCH (21:13)
[2020-10-04] MEDS: ACETAMINOPHEN 500 MG TAB PO PRN (21:13)
[2020-10-04] MEDS: ASPIRIN 81MG ENTERIC TABLET PO SCH (21:14)
[2020-10-04] MEDS: FOLIC ACID 1 MG TAB PO SCH (21:14)
[2020-10-04] MEDS: TAMSULOSIN 0.4 MG CAP PO SCH (21:14)
[2020-10-04] MEDS: ROSUVASTATIN 10 MG TAB (CRESTOR) PO SCH (21:16)
[2020-10-04] MEDS: FINASTERIDE 5 MG TAB PO SCH (21:17)
[2020-10-04] MEDS: WARFARIN SOD 2MG TAB PO SCH (21:17)
[2020-10-05] MEDS: IPRATROPIUM 0.5MG/ALBUTEROL 2.5MG INH SOL UD 3ML (DUONEB) NEB SCH ×5 (01:55→20:00)
[2020-10-05] MEDS: VANCOMYCIN ORAL SOL 250MG/5ML ORAL SYRINGE PO SCH ×4 (06:23→23:29)
[2020-10-05] MEDS: metroNIDAZOLE 500 MG in IV 1 EA IV SCH ×3 (06:24→23:32)
[2020-10-05 06:35] LABS: BASO % 0.7 % (0.0-1.0); EOS # 0.2 10^3/uL (0.0-0.5); EOS % 5.4 % (0.0-3.0); HEMATOCRIT 33.3 % (42.0-52.0); HEMOGLOBIN 10.3 g/dl (13.5-17.5); LYMPH # 0.9 10^3/uL (1.5-5.0); LYMPH % 21.7 % (24.0-44.0); MEAN CORPUSCULAR HEMOGLOBIN 31.2 pg (27.0-33.0); MEAN CORPUSCULAR HGB CONC 30.9 g/dl (32.0-36.5); MEAN CORPUSCULAR VOLUME 100.9 fl (80.0-96.0); MONO # 0.5 10^3/uL (0.0-0.8); MONO % 12.3 % (2.0-8.0); NEUTROPHILS # 2.5 10^3/uL (1.5-8.5); NEUTROPHILS % 59.7 % (36.0-66.0); PLATELET COUNT, AUTOMATED 155 10^3/uL (150-450); WHITE BLOOD COUNT 4.2 10^3/uL (4.0-10.0)
[2020-10-05 06:48] VITALS: BP 143/85
[2020-10-05 06:56] LABS: INR 3.03; PROTHROMBIN TIME 32.1 SECONDS (12.5-14.3)
[2020-10-05 08:26] LABS: ALBUMIN 2.8 GM/DL (3.2-5.2); CALCIUM LEVEL 8.9 MG/DL (8.8-10.2); CREATININE FOR GFR 2.61 MG/DL (0.70-1.30); GLOMERULAR FILTRATION RATE 25.2 (>35); PHOSPHORUS LEVEL 2.2 MG/DL (2.5-4.9); POTASSIUM SERUM 3.6 MEQ/L (3.5-5.1)
[2020-10-05] MEDS: OMEPRAZOLE 20 MG CAP PO SCH (09:01)
[2020-10-05] MEDS: LACTOBACILLUS ACIDOPHILUS CAP (BACID) PO SCH ×4 (09:01→21:12)
[2020-10-05] MEDS: MAGNESIUM GLUCONATE 500 MG TAB PO SCH ×2 (09:01→21:07)
[2020-10-05] MEDS: guaiFENesin 200 MG TAB PO SCH ×3 (09:01→21:12)
[2020-10-05] MEDS: ANUSOL HC CREAM 30GM TOP SCH ×3 (09:02→21:13)
[2020-10-05] MEDS: NYSTATIN 100,000 UNITS/GM TOPICAL PWD 15 GM TOP SCH ×2 (09:02→21:13)
[2020-10-05] MEDS: METOPROLOL TART 12.5 MG PER 1/2 TAB PO SCH ×2 (09:02→21:10)
[2020-10-05] MEDS: REMEDY PHYTOPLEX Z-GUARD PASTE 113GM TUBE (FROM STOREROOM PRODUCT) TOP SCH ×3 (09:02→21:12)
[2020-10-05] MEDS: ONDANSETRON 4 MG ORAL DISINTEGRATING TAB PO PRN (09:04)
--- NOTE | 2020-10-05 12:30 | IPN ---
PROGRESS NOTE DATE: 10/05/2020 SUBJECTIVE: Patient was seen and examined at the bedside today morning. He continues to be on IV Flagyl and oral Vancomycin for C. Diff colitis. He still reports some nausea. He also reports some shortness of breath and upper airway secretions. Renal function is improving. Creatinine is improved to 2.6 today. OBJECTIVE: VITAL SIGNS: Temperature is 98.8 degrees Fahrenheit, blood pressure 143/85, pulse is 91, respiratory rate 18, saturating 97% on room air. INTAKE AND OUTPUT: Urine output recorded as 770 ml yesterday, 450 ml so far today. Weight on the bed scale is 73.9 kg. GENERAL: The patient is awake, alert and oriented x3, laying in bed. HEAD AND NECK: Extraocular muscles intact. Pupils equally round and reactive to light. Mucous membranes are moist. Neck is supple. There is no JVD. CARDIOVASCULAR: S1 and S2, regular rate. No edema of the bilateral lower extremities. RESPIRATORY: The patient has a lot of upper airway secretions and a lot of gurgling sounds coming from his throat. He does have mild crepitations and decreased breath sounds at the bases as well. Otherwise, he does not look clinically overloaded. ABDOMEN: Soft, positive bowel sounds, nontender. No organomegaly. MUSCULOSKELETAL: No clubbing or cyanosis. Pulses are 2+. No edema of the extremities. SKILLED NURSING FACILITY COUNSELOR: No focal deficit. Power is 5/5 in all extremities. LABORATORY DATA: CBC showed a WBC of 4.2, hemoglobin 10.3, platelets of 155,000. INR is 3. BMP showed a sodium of 145, potassium of 3.6, chloride 111, bicarbonate 26, BUN 50, creatinine is 2.6, it was 3 yesterday. Albumin is 2.8. CURRENT INPATIENT MEDICATIONS: The patient's medications were all reviewed by myself. No significant change in the medications today as compared with yesterday. ASSESSMENT AND PLAN: 1. Acute renal failure. Patient's creatinine was high and because of C. Diff colitis and decreased oral intake diuretics were stopped. Creatinine has improved to 2.6. 2. C. Diff colitis, continue oral Vancomycin and IV Flagyl. Flagyl was resumed yesterday because of possible aspiration pneumonitis. 3. BPH and urinary retention. Continue Naidu catheter. He is also on Flomax and finasteride. 4. Anemia and chronic kidney disease. Continue current dose of Aranesp.
[2020-10-05 14:00] VITALS: BP 128/74
[2020-10-05] MEDS: ACETAMINOPHEN 500 MG TAB PO PRN (15:33)
[2020-10-05] MEDS: WARFARIN SOD 2MG TAB PO SCH (17:56)
[2020-10-05 20:20] VITALS: BP 120/67
[2020-10-05] MEDS: ROSUVASTATIN 10 MG TAB (CRESTOR) PO SCH (21:08)
[2020-10-05] MEDS: hydrOXYzine 25 MG TAB PO SCH (21:08)
[2020-10-05] MEDS: FINASTERIDE 5 MG TAB PO SCH (21:10)
[2020-10-05] MEDS: ASPIRIN 81MG ENTERIC TABLET PO SCH (21:11)
[2020-10-05] MEDS: FOLIC ACID 1 MG TAB PO SCH (21:12)
[2020-10-05] MEDS: TAMSULOSIN 0.4 MG CAP PO SCH (21:12)
[2020-10-06] MEDS: IPRATROPIUM 0.5MG/ALBUTEROL 2.5MG INH SOL UD 3ML (DUONEB) NEB SCH ×3 (02:00→16:45)
[2020-10-06 05:36] VITALS: BP 121/76
[2020-10-06] MEDS: metroNIDAZOLE 500 MG in IV 1 EA IV SCH ×2 (06:34→15:11)
[2020-10-06] MEDS: VANCOMYCIN ORAL SOL 250MG/5ML ORAL SYRINGE PO SCH ×3 (06:35→16:42)
[2020-10-06 07:09] LABS: BASO % 0.4 % (0.0-1.0); EOS # 0.4 10^3/uL (0.0-0.5); EOS % 7.7 % (0.0-3.0); HEMATOCRIT 36.1 % (42.0-52.0); HEMOGLOBIN 11.4 g/dl (13.5-17.5); LYMPH # 0.9 10^3/uL (1.5-5.0); MEAN CORPUSCULAR HGB CONC 31.6 g/dl (32.0-36.5); MEAN CORPUSCULAR VOLUME 101.4 fl (80.0-96.0); MONO # 0.5 10^3/uL (0.0-0.8); MONO % 11.6 % (2.0-8.0); NEUTROPHILS # 2.8 10^3/uL (1.5-8.5); NEUTROPHILS % 60.1 % (36.0-66.0); PLATELET COUNT, AUTOMATED 179 10^3/uL (150-450); RED BLOOD COUNT 3.56 10^6/uL (4.30-6.10); WHITE BLOOD COUNT 4.7 10^3/uL (4.0-10.0)
[2020-10-06 07:26] LABS: INR 3.45; PROTHROMBIN TIME 35.5 SECONDS (12.5-14.3)
[2020-10-06 07:36] LABS: CALCIUM LEVEL 9.4 MG/DL (8.8-10.2); CREATININE FOR GFR 2.61 MG/DL (0.70-1.30); GLOMERULAR FILTRATION RATE 25.2 (>35); POTASSIUM SERUM 3.5 MEQ/L (3.5-5.1)
[2020-10-06] MEDS: MAGNESIUM GLUCONATE 500 MG TAB PO SCH (09:23)
[2020-10-06] MEDS: guaiFENesin 200 MG TAB PO SCH ×2 (09:23→15:10)
[2020-10-06] MEDS: CALCITRIOL 0.25 MCG CAP (S0169) PO SCH (09:23)
[2020-10-06] MEDS: LACTOBACILLUS ACIDOPHILUS CAP (BACID) PO SCH ×3 (09:23→16:41)
[2020-10-06] MEDS: OMEPRAZOLE 20 MG CAP PO SCH (09:23)
[2020-10-06 09:28] VITALS: BP 123/77
[2020-10-06] MEDS: NYSTATIN 100,000 UNITS/GM TOPICAL PWD 15 GM TOP SCH (09:28)
[2020-10-06] MEDS: METOPROLOL TART 12.5 MG PER 1/2 TAB PO SCH (09:28)
[2020-10-06] MEDS: ANUSOL HC CREAM 30GM TOP SCH ×2 (09:28→15:11)
[2020-10-06] MEDS: REMEDY PHYTOPLEX Z-GUARD PASTE 113GM TUBE (FROM STOREROOM PRODUCT) TOP SCH ×2 (09:28→15:12)
[2020-10-06] MEDS ORDERED: KCL 20MEQ IN D5/0.45NS 1000ML 1,000 ML IV SCH (12:00)
[2020-10-06] MEDS ORDERED: VARIBAR PUDDING 40% w/v 230ML TUBE As Ordered ONE (12:48)
[2020-10-06] MEDS ORDERED: BARIUM SULFATE 700 MG TABLET (E-Z-DISK) As Ordered ONE (12:48)
[2020-10-06] MEDS ORDERED: VARIBAR NECTAR 40% w/v 240ML SUSP BTL As Ordered ONE (12:48)
[2020-10-06] MEDS ORDERED: E-Z-PAQUE 96% w/w SUSP 176GM BTL As Ordered ONE (12:48)
[2020-10-06 14:00] VITALS: BP 129/72
--- NOTE | 2020-10-06 14:16 | IPN ---
PROGRESS NOTE DATE: 10/06/2020 SUBJECTIVE: The patient was seen and examined at the bedside today morning in the rehab unit. His upper airway secretions and sounds are better today but he still reports that he is unable to drink water properly. His urine output recorded since overnight is only 375 ml. Renal function is stable with a creatinine of 2.6 which is stable since yesterday. He reports his diarrhea and abdominal pain is significantly better. OBJECTIVE: VITAL SIGNS: Temperature is 96.9 degrees Fahrenheit, blood pressure is 121/76, pulse is 81, respiratory rate of 18, saturating 97% on room air. INTAKE AND OUTPUT: Urine output recorded as 450 ml yesterday, 375 ml so far today since overnight, weight on the bed scale is 73.3 kg. GENERAL: The patient is awake, alert and oriented x3, sitting up at this time in no apparent distress. HEAD AND NECK EXAM: Extraocular muscles intact. Pupils equally round and reactive to light. Mucous membranes are moist. Neck is supple. There is no JVD. CARDIOVASCULAR: S1 and S2, regular rate. No edema of the bilateral lower extremities. RESPIRATORY: Decreased breath sounds at the bases. Poor inspiratory effort, otherwise no active rales or rhonchi. ABDOMEN: Soft, positive bowel sounds, nontender. No organomegaly. MUSCULOSKELETAL: No clubbing or cyanosis. Pulses are 2+. FIRE PREVENTION CHIEF: No focal deficit. Power is 5/5 in all extremities. LABORATORY DATA: CBC showed a WBC of 4.7, hemoglobin 11.4, platelets are 179, BMP showed a sodium of 145, potassium 3.5, chloride 113, bicarbonate 28, BUN 47, creatinine is 2.6. CURRENT INPATIENT MEDICATIONS: The patient's medications were all reviewed by myself. No significant change in the medications. He continues to be on oral Vancomycin and IV Flagyl. I have started the a on KCl 20 mEq and D5-1/2 normal saline at 100 ml/hr for a total of 1 liter. ASSESSMENT AND PLAN: 1. Acute renal failure. Patient's creatinine is stable since yesterday, however he has decreased oral intake, IV fluids have been started as mentioned above. No urgent need of hemodialysis as his GFR is around 25 right now. 2. C. Diff colitis, patient is on oral Vancomycin, diarrhea is getting better. 3. Anemia in chronic kidney disease, hemoglobin level is stable and improving, it has improved to 11.4. I am going to decrease the Aranesp dose to 100 mcg once a week. 4. Secondary hyperparathyroidism. Continue current dose of Calcitriol every other day.
[2020-10-06] MEDS ORDERED: NYST10006 TOP (16:33)
[2020-10-06] MEDS ORDERED: COLLOIDAL OATMEAL TOP (16:33)
[2020-10-06] MEDS ORDERED: Zinc Oxide/Petrolatum,White TOP (16:33)
[2020-10-06] MEDS ORDERED: PROC1CRE5 TOP (16:33)
[2020-10-06] MEDS ORDERED: METR1INJ2 IV (16:33)
[2020-10-06] MEDS ORDERED: ARAN200I3 SC (16:33)
--- NOTE | 2020-10-06 17:38 | REP ---
INDICATION: Rule out aspiration. COMPARISON: None. TECHNIQUE: The procedure was performed under the direct supervision of Dr. Cherry. The procedure was performed with Tanya Wilkins from speech pathology present. 5 cc aliquots of nectar, pudding, thin and honey consistency barium was administered. With thin and pudding consistency barium there is aspiration. With nectar consistency barium there is aspiration when utilizing a straw with chin tuck technique. A detailed report of this examination will be provided by speech pathology. 0.7 minutes of fluoro time was utilized for this procedure. FINDINGS: None FINDINGS: None IMPRESSION: With thin and pudding consistency barium there is aspiration. With nectar consistency barium there is aspiration when utilizing a straw with chin tuck technique. <Electronically signed by Clayton Moreno > 10/06/20 1610 <Electronically signed by Aguilar Cherry > 10/06/20 [id number]
[2020-10-07] MEDS ORDERED: WARFARIN SOD 1MG TAB PO SCH (17:00)
[2020-10-09] MEDS ORDERED: DARBEPOETIN 200MCG/0.4ML *NON-DIALYSIS* SYRINGE (J0881 PER 1MCG) SC SCH ×2 (09:00)
--- NOTE | 2020-10-31 11:28 | PMRDS ---
NAME: BRITTON GOMEZ [facility] WT ID#: [id number] JOB: [id number] ELIO: 10/06/2020 ACCT: [id number] DOCTOR: WONG SIMMONS MD PMR DISCHARGE SUMMARY DATE OF ADMISSION: 09/13/2020 DATE OF DISCHARGE: 10/06/2020 CHIEF COMPLAINT/DISCHARGE DIAGNOSIS: Renal failure with aspiration pneumonia and dysphagia. HISTORY OF PRESENT ILLNESS: An 80-year-old man with a past medical history of atrial fibrillation on Coumadin, COPD, CHF, BPH, CAD; status post CABG with stent with aortic valve replacement, status post bilateral lower extremity stents, prostate cancer, who was transferred to [facility] ED on 09/06/2020 from [facility] following a fall at home in the setting of a diarrheal infection and ongoing hematuria, was found to be hypotensive and in acute renal failure with a supratherapeutic INR. He was started on CVVHD for his acute oliguric renal failure and to treat his acute CHF exacerbation. He was followed closely by renal, showed improved urine output with relatively stable kidney function, was weaned off oxygen, evaluated by therapy and deemed medically appropriate for discharge to ARU for mobility and ADL impairments. On evaluation, patient reports he does not feel short of breath despite breathing through pursed lips. He also reports his left arm has been weak for a few months and that he attributes this to arthritis in his neck, that has been managed by a chiropractor. PAST MEDICAL HISTORY: As per HPI. HOSPITAL COURSE: The patient was admitted, enrolled in comprehensive PT/OT, speech and language pathology program. He received 24-hour nursing supervision and weekly team meetings to help discuss his progress. Patient was managed for his renal failure and CHF with daily weights, fluid restriction and close management by renal, who adjusted his diuretics on a frequent basis. Patient was on Finasteride and Flomax for history of BPH, however, failed multiple trials of void and ultimately had Naidu placed. He developed an urticarial rash on his back, which resolved over the course of a few days with the use of Hydrocortisone cream and Atarax. Patient developed nausea and vomiting, and was evaluated by speech therapy, who downgraded him to nectar thickened liquids due to concern for aspiration. CT chest on 10/03/2020 showed "bibasilar subsegmental atelectasis or infiltrative changes with areas of chronic fibrotic change in the deep sulci. This could certainly reflect some degree of aspiration, although mild. Patient concurrently developed diarrhea and was diagnosed with C. diff. He was maintained on I.V. Flagyl for C. diff and for anaerobic coverage of his aspiration pneumonia. On 10/06/2020, patient had a modified Barium swallow and was unable to tolerate any solid or liquid, and was made n.p.o. and discharged off the floor for further workup on the acute care side. DISCHARGE MEDICATIONS: As per instructions. FUNCTIONAL HISTORY ON DISCHARGE: Patient was contact guard to min assist for ambulation and functional transfers. Thank you for this referral.
== END 2020-10-06 18:10 | disposition short-term general hospital (02) | DRG 947 ==
LOC: M PM&R 15:20
PROVIDERS: ADMIT Physical Medicine & Rehabilitation; ATTEND Physical Medicine & Rehabilitation
DX: R53.1 Weakness (principal); J69.0 Pneumonitis due to inhalation of food and vomit; I50.32 Chronic diastolic (congestive) heart failure; A04.71 Enterocolitis due to Clostridium difficile, recurrent; N25.81 Secondary hyperparathyroidism of renal origin; I48.91 Unspecified atrial fibrillation; J44.9 Chronic obstructive pulmonary disease, unspecified; N40.1 Benign prostatic hyperplasia with lower urinary tract symptoms; I25.10 Atherosclerotic heart disease of native coronary artery without angina pectoris; R33.9 Retention of urine, unspecified; Z66 Do not resuscitate; R29.810 Facial weakness; G62.9 Polyneuropathy, unspecified; I73.9 Peripheral vascular disease, unspecified; I11.0 Hypertensive heart disease with heart failure; D63.1 Anemia in chronic kidney disease; I27.20 Pulmonary hypertension, unspecified; Z79.01 Long term (current) use of anticoagulants; Z85.46 Personal history of malignant neoplasm of prostate; Z74.1 Need for assistance with personal care; Z95.3 Presence of xenogenic heart valve; Z95.820 Peripheral vascular angioplasty status with implants and grafts; Z74.09 Other reduced mobility; Z79.82 Long term (current) use of aspirin; Z79.899 Other long term (current) drug therapy

== ENCOUNTER 2020-10-06 15:07 | Inpatient (IN) | payer MEDICARE ==
[~2020-10-06] VITALS: Ht 170.2 cm; Wt 80.7 kg
[2020-10-06] MEDS ORDERED: METR1INJ2 IV (16:33)
[2020-10-06] MEDS ORDERED: NYST10006 TOP (16:33)
[2020-10-06] MEDS ORDERED: PROC1CRE5 TOP (16:33)
[2020-10-06] MEDS ORDERED: Zinc Oxide/Petrolatum,White TOP (16:33)
[2020-10-06] MEDS ORDERED: COLLOIDAL OATMEAL TOP (16:33)
[2020-10-06] MEDS ORDERED: ARAN200I3 SC (16:33)
[2020-10-06] MEDS ORDERED: METOPROLOL 5 MG/5 ML VIAL IV SCH (18:00)
[2020-10-06 18:28] VITALS: BP 119/71
--- NOTE | 2020-10-06 18:47 | HPEPDOC ---
General Date of Admission Oct 06, 2020 Date of Service: Oct 06, 2020 Chief Complaint The patient is a 80-year-old male admitted with a reason for visit of Aspiration Pneumonia C Diff. Source: Patient History of Present Illness Mr. Manzano is an 80-year-old male who was at [facility] for rehabilitation and transferred back to inpatient hospitalization for dysphagia, aspiration pneumonia, and C. difficile diarrhea. Patient has A. fib and is on Lopressor for rate control. Due to his dysphagia, patient will be in PCU receiving IV Lopressor. Mr. Manzano is originally admitted on 09/06/2020. Is a transfer from [facility] for shock requiring pressors and acute kidney injury. Initially, it was unclear if it was septic shock or hypovolemic shock from nausea, vomiting, and diarrhea. Patient was empirically on Flagyl and Cipro initially. Eventually this was discontinued with suspicion that this hypovolemic shock. Due to patient's oliguric acute renal failure, patient was put on CRRT. Patient eventually improved, and was taken off of dialysis. Patient was sent to [facility] on 09/13/2020. While at rehabilitation, Mr. Manzano developed dysphasia as well as C. difficile diarrhea. Today he was evaluated by speech therapy. He failed a swallow evaluation. He aspirated on honey thick. Patient was made NPO. Patient was transferred to the [facility] for higher level of care. I saw Mr. Manzano while he was at [facility]. He denied any fevers, chest pain, abdominal pain, or dysuria. He reported that he is having worsening dyspnea. He also reports a still has a lot of diarrhea. Patient will be admitted for dysphagia, aspiration pneumonia, and C. difficile diarrhea. Home Medications Scheduled Calcitriol (Calcitriol) 0.25 Mcg Capsule, 0.25 MCG PO Q2D, (Reported) Darbepoetin Bharat in Polysorbat (Aranesp) 200 Mcg/0.4 Ml Syringe, 100 MCG SC Mo@0900 Hydrocortisone (Proctozone-Hc) 30 Gm Crm.pe.dawn, 0 DOSE TOP TID Metoprolol Tartrate (Metoprolol Tartrate) 25 Mg Tablet, 12.5 MG PO BID, (Reported) Metronidazole/Sodium Chloride (Metronidazole 500 mg/100 ml) 500 Mg/100 Ml Piggyback, 500 MG IV Q8H Nystatin (Nystop) 60 Gm Powder, 1 DOSE TOP BID Omeprazole (Omeprazole) 40 Mg Capsule.dr, 40 MG PO DAILY, (Reported) [Zinc Oxide/Petrolatum,White] 1 DOSE/113 GM PASTE, 0 DOSE TOP TID Scheduled PRN Albuterol Sulfate (Proair Hfa) 8.5 Gm Hfa.aer.ad, 2 PUFF INH Q6H PRN for SOB/WHEEZING, (Reported) [Colloidal Oatmeal] 1 EA BAR, 0 EA TOP Q6H PRN for back itch Allergies Coded Allergies: No Known Allergies (Unverified , 01/28/19) Past Medical History Medical History 1. COPD 2. Atrial Fibrillation 3. History of Aortic Valve Repair 4. PVD s/p bilateral leg stents 5. CAD s/p CABG 6. CKD 7. BPH 8. Prostate Cancer 9. Dysphagia 10. C. difficile diarrhea Surgical History 1. Aortic Valve Repair 2. Bilateral leg stents for PVD 3. CABG and Cardiac Stents Family History Family history of heart disease Social History * Smoker: Denies Alcohol: Denies Drugs: denies A-FIB/CHADSVASC A-FIB History Current/History of A-Fib/PAF?: Yes Current PO Anticoag Therapy: Yes Review of Systems Constitutional: Denies: Chills, Fever Eyes: Denies: Vision change ENT: Denies: Sore Throat Skin: Reports: Rash (on his back and bottom) Pulmonary: Reports: Dyspnea, Cough (white sputum) Cardiovascular: Denies: Chest Pain Gastrointestinal: Reports: Diarrhea; Denies: Abdominal Pain Genitourinary: Denies: Dysuria Hematologic: Denies: Bruising Neurological: Reports: Other Symptoms (chronic paresthesias of his hands bilaterally) Psych: Denies: Anxiety, Depression Physical Examination General Exam: Positive: Alert, Cooperative Eye Exam: Positive: EOMI; Negative: Sclera icteric ENT Exam: Positive: Atraumatic Neck Exam: Positive: Supple Chest Exam: Positive: Other (crackles in the lower lung hurtado) Heart Exam: Positive: Rate Normal, Irregular Rhythm Abdomen Exam: Positive: Normal bowel sounds, Soft; Negative: Tenderness Neuro Exam: Positive: Cranial Nerves 3-12 NL Psych Exam: Positive: Mental status NL, Mood NL Vital Signs Vital signs obtained from ARU visit Temperature: 97.4 Heart rate: 95 Respiratory rate: 18 Blood pressure: 129/72 Oxygen saturation: 98% at room air Assessment/Plan Mr. Manzano is an 80-year-old male who was [facility] and transferred back to inpatient hospitalization for dysphagia, aspiration pneumonia, and C. difficile diarrhea. I spoke with speech therapy who recommended NPO diet. On Friday we can do a cookie swallow evaluation. In the meantime, we'll treat his atrial fibrillation with IV Lopressor. His INR is elevated, we will continue monitoring. For C. difficile diarrhea we'll give him IV Flagyl and rectal vancomycin. Plan / VTE VTE Prophylaxis Ordered?: Yes Plan Plan 1. C. difficile diarrhea Unable to take orals IV metronidazole and per rectal vancomycin Cautious with antibiotics 2. Dysphagia Has had dysphagia before in the past In 2016, had respiratory failure with placement of a PEG tube and trach. There was subsequently removed Spoke with speech therapy, recommended nothing by mouth at this time. Can retry cookie swallow test on Friday We'll convert his medications to IV if possible 3. Aspiration pneumonia versus pneumonitis No fever or leukocytosis. Patient breathing at room air. Last pro calcitonin was borderline low We'll check another pro calcitonin. Cautious with antibiotics due to C. difficile diarrhea Aspiration precautions 4. Atrial fibrillation Persistent Switch Lopressor from PO to IV Monitor INR as on warfarin. Currently supratherapeutic 5. GERD Continue PPIs as IV 6. Acute kidney injury Creatinine stable at 2.6 Nephrology is following, recommendations appreciated 7. Secondary hyperparathyroidism On calcitriol every other day 8. DVT prophylaxis On warfarin, currently supratherapeutic JEF BOWERS DO Oct 06, 2020 18:47
--- OUTSIDE RECORDS SUMMARY | 2020-10-06 18:48 | CCD | Continuity of Care Document ---
Author Author [facility] Organization [facility] Address [address] [place] [address] Phone Support Name Relationship Address Phone Julian Herrera PRS [address] [place] [address] Kaz Cid PRS [address] [place] [address] Tono Guardado PRS [address] [place] [address] Lillian Vazquez PRS [address] [place] [address] Tara Osbonre PRS [address] [place] [address] Riki Ramos PRS [address] [place] [address] [place] [address] Kyaw Richardson PRS [address] [place] [address] Evan De Oliveira PRS [address] [place] [address] Carlos Drummond PRS [address] [place] [address] Sandhya Weir PRS [address] [place] [address] Carlos Galvin PRS [address] [place] [address] Shekhar Louis PRS [address] [place] [address] Justice Murdock PRS [address] [place] [address] Allergies, Adverse Reactions, Alerts No known allergies. [...] ONE TABLET BY MOUTH EVERY DAY Permethrin Discontinued 1 APPLIC TOP EVERY 14 DAYS 60 July 11, 2020 11:29am August 18, 2020 11:07am apply seco nd treatment 14 days after first treatment if live lice remain Albuterol Sulfate Active 2 INH IH Four Times a Day 8.5 July 11, 2020 11:34am Gemfibrozil Discontinued 600 MG PO 2 Times Per Day 180 May 16, 2020 9:13am September 05, 2020 12:42pm Rosuvastatin (Crestor) 20 mg tablet Active 20 [...] 2016 2:14pm March 19, 2016 10:21am Aa 7-Bofn-Zoyei-[place]-Hrb 126 (Gabadone Capsule) 531-91-23-56 mg capsule Discontinued 300 MG PO Once Per Day March 15, 2016 2:14pm March 17, 2016 6:54am Ferrous Gluconate Discontinued 1 TAB PO Once Per Day March 15, 2016 2:14pm June 05, 2016 9:02am Budesonide-Formoterol (Symbicort) 60 PUF FS/6 GM HFA aerosol inhaler Discontinued 2 PUFFS INH 2 Times Per Day March 15, 2016 2:14pm May 9:02am Nichelle-Yovani-DeboTherm (Pearl-Bid ) 1 billion cell- 250 mg [...] iscontinued 0.4 MG PO Once Per Day 30 July [...] Per Day June 05, 2016 9:02am March 31, 2017 10:28am Gabapentin Discontinued 300 MG PO 2 Times Per Day 60 June 05, 2016 9:02am September 26, 2016 2:16pm Metoprolol Tartrate Discontinued 25 MG PO 2 Times Per Day June 05, 2016 9:02am March 20, 2017 10:54am Ferrous Gluconate Discontinued 1 TAB PO Once Per Day 30 June 05, 2016 9:02am December 09, 2016 6:08am Budesonide-Formoterol (Symbicort 160-4.5 Mcg Inhaler) 60 PUFFS/6 GM HFA aerosol inhaler Discontinued 2 PUFFS INH 2 Times Per Day June 05, 2016 9:02am July 15, 2016 [...] 1:43pm Zoster Vaccine Live (Pf) (Zostavax Vial) [id number] UNIT/0.65 ML suspension for reconstitution Discontinued 19532 UNIT SQ ONE TIME October 31, 2016 [...] Active 1 EACH PO Once Per Day 30 February 12, 2017 1:42pm Folic Acid Discontinued 1 TAB PO Once Per Day 90 February 18, 2017 11:09am February 20, 2017 [...] Per Day 30 February 20, 2017 1:54pm May 29, 2017 [...] 2017 6:38am May 29, 2017 12:08pm Ipratropium [place] Discontinued 2 SPRAYS NA 2 Times Per Da y 1 May 19, 2017 3: 52pm December 09, 2018 6:03am Ipratropium [place] Discontinued 2 SPRAYS NA 2 Times Per Da y 1 May 19, 2017 3: 52pm December 09, 2019 7:50am Pneumoc 13-Anna Conj-Dip Cr(Pf) (Prevnar 13*) 0.5 ML sy ringe Discontinued 0.5 ML IM ONE TIME May 19, 2017 4:09pm May 4:13pm Flu Vaccine [id number](5 Yr Up) (Afluria [id number]) 45 MCG/0.5 ML suspension Discontinued 45 MCG [...] Day 90 January 08, 2018 3:24pm December 28, 2018 [...] Discontinued 5 MG PO Once Per Day 90 June 15, 2018 7:20am December 09, 2018 [...] 3am Warfarin Discontinued 3 MG PO daily 30 December 24, 2019 9:56am February 10, 2020 10:25am Warfarin Discontinued 2 MG PO every other day 15 January 24, 2020 3:32pm February 10, 2020 10:25am on odd numbered days Warfarin Active 3 MG PO daily February 10, 2020 10:23am 3 mg daily except friday and , 2mg on those days Warfarin Discontinued 2 MG PO 2 Times Per Week February 10, 2020 10:25am August 15, 2020 9:17am on friday and only. Folic Acid Active 1 MG PO Once Per Day 90 March 14, 2020 3:21pm Albuterol Sulfate Discontinued 2 INH IH Four Times a Day 8.5 June 14, 2020 5:41pm July 11, 2020 11:39am Gemfibrozil Active 600 MG PO 2 Times Per Day 180 September 05, 2020 12:42pm Problems Active Problems Medical Problem Onset Date Status Encounter for screening for COVID-19 Active Hypertension, essential, benign January 06, 2015 Active Chronic kidney disease, stage 4 (severe) Active Congestive heart failure (CHF) Active Atrial fibrillation Ac tive On warfarin therapy December 08, 2018 Active Dermatitis Active Hypercholesterolemia January 06, 2015 Active Diabetes mellitus type 2 in obese Ma [facility] 2014 Active Adenocarcinoma of prostate [...] Date Performed Status Xray Chest One View September 06 8:55am completed CT Head without contrast August 10:24am completed CT Maxillofacial area w/o cont Janua ry 2020 10:25am completed CT C-Spine without contrast September 06, 2020 10:25am completed Respiratory Panel (PCR) September 06, 2020 completed Urine Culture September 06, 2020 active Blood Culture September 06, 2020 active Xray Chest One View August 09, 2 020 3:40pm completed CT Head without contrast [...] Normalized Ratio M arch 2019 11:55am 1.7 White Blood Count September 06, 2020 7:15a m 9.5 10e3/uL 4.45-10.71 [facility], [address] [place] [address] White Blood Count August 10 5:07am 5.0 10e3/uL 4.45-10.71 [facility], [address] [place] [address] White Blood Count July 26 10:55am 5.1 10e3/uL 4.45-10.71 [facility], [address] [place] [address] White Blood Count January 23, 2020 3:25pm 5.4 10e3/uL 4.45-10.71 [facility], [address] [place] [address] White Blood Count December 09, 2019 8:50am 4.9 10e3/uL 4.45-10.71 [facility], [address] [place] [address] 32567 Red Blood Count September 06, 2020 7:15am 3.21 10e6/uL 4.3-6.1 [facility], [address] [place] [address] Red Blood Count August 10, 2020 5:07am 3.39 10e6/uL 4.3-6.1 [facility], [address] [place] [address] Red Blood Count July 26, 2020 10:55a m 3.50 10e6/uL 4.3-6.1 [facility], [address] [place] [address] Red Blood Count January 23, 2020 3:25pm 3.52 10e6/uL 4.3-6.1 [facility], [address] [place] [address] Red Blood Count December 09, 2019 8:50am 2.85 10e6/uL 4.3-6.1 [facility], [address] [place] [address] 62079 Hemoglobin September 06, 2020 7:15am 10.2 g/dL 18 [facility], [address] [place] [address] Hemoglobin August 10, 2020 5:07am 11.0 g/dL [facility], [address] [place] [address] Hemoglobin July 26, 2020 10:55am 11.3 g/dL 18 [facility], [address] [place], [place] [id number] Hemoglobin January 23, 2020 3:25pm 11.7 g/dL [facility], [address] [place] [address] 14781 Hemoglobin December 09, 2019 8:50am 9.2 g/dL - [facility], [address] [place] [address] 75018 Hematocrit September 06, 2020 7:15am 30.7 % 42-52 [facility], [address] [place], [place] [id number] Hematocrit August 10, 2020 5:07am 33.8 % 42-52 [facility], [address] [place] [address] 49126 Hematocrit July 26, 2020 10:55am 35.8 % 4252 [facility], [address] [place], [place] [id number] Hematocrit January 23, 2020 3:25pm 34.6 % 42-52 [facility], [address] [place] [address] 83581 Hematocrit December 09, 2019 8:50am 26.3 % 4252 [facility], [address] [place], [place] [address] Mean Corpuscular Volume August 7:15am 95.6 fl 80-96 [facility], [address] [place], [place] [address] Mean Corpuscular Volume July 5:07am 99.7 fl 80-96 [facility], [address] [place], [place] [address] Mean Corpuscular Volume July 10:55am 102.3 fl 80-96 [facility], [address] [place], [place] [address] Mean Corpuscular Volume January 22 3:25pm 98.3 fl 80-96 [facility], [address] [place] [address] 72454 Mean Corpuscular Volume December 09, 2019 8:50am 92.3 fl [facility], [address] [place] [address] 99432 Mean Corpuscular Hemoglobin September 06, 2020 7:15am 31.8 pg 2731 [facility], [address] [place] [address] 72580 Mean Corpuscular Hemoglobin August 10, 2020 5:07am 32.4 pg 2731 [facility], [address] [place] [address] 54744 Mean Corpuscular Hemoglobin July 26, 2020 10:55am 32.3 pg 2731 [facility], [address] [place] [address] 59067 Mean Corpuscular Hemoglobin January 3:25pm 33.[address] [facility], [address] [place] [address] 94433 Mean Corpuscular Hemoglobin December 082019 8:50am 32.3 pg 2731 [facility], [address] [place] [address] 36517 Mean Corpuscular Hemoglobin Concent September 06, 2020 7:15am 33.2 g/dl [facility]37 [facility], [address] [place] [address] 94172 Mean Corpuscular Hemoglobin Concent August 10, 2020 5:07am 32.5 g/dl [facility]37 [facility], [address] [place] [address] 56860 Mean Corpuscular Hemoglobin Concent July 26, 2020 10:55am 31.6 g/dl 3337 [facility], [address] [place] [address] 16543 Mean Corpuscular Hemoglobin Concent January 23, 2020 3:25pm 33.8 g/dl 3337 [facility], [address] [place] [address] 23180 Mean Corpuscular Hemoglobin Concent December 09, 2019 8:50am 35.0 g/dl 3337 [facility], [address] [place] [address] 78388 Red Cell Distribution Width September 06, 2020 7:15am 15 % 11-15 [facility], [address] [place] [address] 63748 Red Cell Distribution Width August 10, 2020 5:07am 14 % 11-15 [facility], [address] [place] [address] Red Cell Distribution Width July 26, 2020 10:55am 17 % 11-15 [facility], [address] [place] [address] Red Cell Distribution Width January 3:25pm 15 % 11-15 [facility], [address] [place] [address] Red Cell Distribution Width December 082019 8:50am 15 % 11-15 [facility], [address] [place] [address] Platelet Count September 06, 2020 7:15am 129 10e3/ul 130-472 [facility], [address] [place] [address] Platelet Count August 10, 2020 5:07am 130 10e3/ul 130-472 [facility], [address] [place] [address] Platelet Count July 26, 2020 10:55am 147 10e3/ul 130-472 [facility], [address] [place] [address] Platelet Count January 23, 2020 3:25pm 127 10e3/ul 130-472 [facility], [address] [place] [address] Platelet Count December 09, 2019 8:50am 123 10e3/ul 130-472 [facility], [address] [place] [address] Mean Platelet Volume September 06 7:15am 12.0 fl 9.1-13.1 [facility], [address] [place] [address] Mean Platelet Volume August 10, 2020 5:07am 10.9 fl 9.1-13.1 [facility], [address] [place] [address] Mean Platelet Volume July 26, 2020 10:55am 10.6 fl 9.1-13.1 [facility], [address] [place] [address] Mean Platelet Volume January 23, 2020 3:25p m 11.3 fl 9.1-13.1 [facility], [address] [place] [address] Mean Platelet Volume December 08 0 8:50am 10.8 fl 9.1-13.1 [facility], [address] [place] [address] Neutrophils (%) (Auto) September 06, 2020 7:15am 81.5 % 41-77 [facility], [address] [place] [address] 56648 Neutrophils (%) (Auto) July 5:07am 54.7 % [address] [facility], [address] [place] [address] 69622 Neutrophils (%) (Auto) July 10:55am 60.8 % [address] [place] [address] LABORATORY, [address] [place] [address] 24120 Neutrophils (%) (Auto) January 22 3:25pm 66.8 % [address] [facility], [address] [place] [address] 13031 Neutrophils (%) (Auto) December 08, 020 8:50am 62.0 % [address] [facility], [address] [place] [address] 25845 Absolute Neutrophil September 06 7:15am 7.7 # 1.7-7.6 [facility], [address] [place] [address] 75241 Absolute Neutrophil August 10, 020 5:07am 2.8 # 1.7-7.6 [facility], [address] [place] [address] 30891 Absolute Neutrophil July 26, 020 10:55am 3.1 # 1.7-7.6 [facility], [address] [place] [address] 16786 Absolute Neutrophil January 23, 2020 3:25pm 3.6 # 1.7-7.6 [facility], [address] [place] [address] 19849 Absolute Neutrophil December 09, 2019 8:50a m 3.0 # 1.7-7.6 [facility], [address] [place] [address] 17298 Lymphocytes (%) (Auto) September 06, 2020 7:15am 9.0 % 14-46 [facility], [address] [place] [address] 73553 Lymphocytes (%) (Auto) July 5:07am 28.9 % 14-46 [facility], [address] [place] [address] 61303 Lymphocytes (%) (Auto) July 10:55am 23.7 % 14-46 [facility], [address] [place] [address] 98307 Lymphocytes (%) (Auto) January 22 3:25pm 18.8 % 14-46 [facility], [address] [place] [address] 64381 Lymphocytes (%) (Auto) December 08, 8:50am 23.4 % 46 [facility], [address] [place] [address] 91014 Lymphocytes # (Auto) September 06 7:15am 0.9 # 0.6-4.6 [facility], [address] [place] [address] 25063 Lymphocytes # (Auto) August 10, 2020 5:07am 1.5 # 0.6-4.6 [facility], [address] [place] [address] 71293 Lymphocytes # (Auto) July 26, 2020 10:55am 1.2 # 0.6-4.6 [facility], [address] [place] [address] 45617 Lymphocytes # (Auto) January 23, 2020 3:25p m 1.0 # 0.6-4.6 [facility], [address] [place] [address] 08255 Lymphocytes # (Auto) December 08 0 8:50am 1.1 # 0.6-4.6 [facility], [address] [place] [address] 91611 Monocytes (%) (Auto) September 06 7:15am 7.3 % 412 [facility], [address] [place] [address] 13430 Monocytes (%) (Auto) August 10, 2020 5:07am 10.6 % 412 [facility], [address] [place] [address] 75905 Monocytes (%) (Auto) July 26, 2020 10:55am 10.2 % 4-12 [facility], [address] [place] [address] 63806 Monocytes (%) (Auto) January 23, 2020 3:25p m 9.9 % 4-12 [facility], [address] [place] [address] 82949 Monocytes (%) (Auto) December 08 0 8:50am 10.9 % 4-12 [facility], [address] [place] [address] 81553 Monocytes # September 06, 2020 7:15am 0.7 # 0.2-1.2 [facility], [address] [place] [address] 09543 Monocytes # August 10, 2020 5:07am 0.5 # 0.2-1.2 [facility], [address] [place] [address] 45048 Monocytes # July 26, 2020 10:55am 0.5 # 0.2-1.2 [facility], [address] [place] [address] 03970 Monocytes # January 23, 2020 3:25pm 0.5 # 0.2-1.2 [facility], [address] [place] [address] 95537 Monocytes # December 09, 2019 8:50am 0.5 # 0.2-1.2 [facility], [address] [place] [address] 65100 Eosinophils (%) (Auto) September 06, 2020 7:15am 1.6 % 0-7 [facility], [address] [place] [address] 80832 Eosinophils (%) (Auto) July 5:07am 4.8 % 0-7 [facility], [address] [place] [address] 86190 Eosinophils (%) (Auto) July 10:55am 4.3 % 0-7 [facility], [address] [place] [address] 95899 Eosinophils (%) (Auto) January 22 3:25pm 3.9 % 0-7 [facility], [address] [place] [address] 38000 Eosinophils (%) (Auto) December 08 8:50am 2.9 % 0-7 [facility], [address] [place] [address] 87897 Absolute Eosinophils (CBC) August 122020 7:15am 0.2 # 0.0-0.5 [facility], [address] [place] [address] 53599 Absolute Eosinophils (CBC) August 10, 2020 5:07am 0.2 # 0.0-0.5 [facility], [address] [place] [address] 70129 Absolute Eosinophils (CBC) July 26, 2020 10:55am 0.2 # 0.0-0.5 [facility], [address] [place] [address] 42550 Absolute Eosinophils (CBC) January 3:25pm 0.2 # 0.0-0.5 [facility], [address] [place] [address] 47385 Absolute Eosinophils (CBC) November 8:50am 0.1 # 0.0-0.5 [facility], [address] [place] [address] 05448 Basophils (%) (Auto) September 06 7:15am 0.2 % 0.4-1.3 [facility], [address] [place] [address] 68924 Basophils (%) (Auto) August 10, 2020 5:07am 0.8 % 0.4-1.3 [facility], [address] [place] [address] 06751 Basophils (%) (Auto) July 26, 2020 10:55am 0.8 % 0.4-1.3 [facility], [address] [place] [address] 64183 Basophils (%) (Auto) January 23, 2020 3:25p m 0.6 % 0.4-1.3 [facility], [address] [place] [address] 97524 Basophils (%) (Auto) December 08 0 8:50am 0.4 % 0.4-1.3 [facility], [address] [place] [address] 28887 Absolute Basophils (CBC) August 7:15am 0.0 # 0.0-0.2 [facility], [address] [place] [address] 48032 Absolute Basophils (CBC) August 102019 5:07am 0.0 # 0.0-0.2 [facility], [address] [place] [address] 35362 Absolute Basophils (CBC) July 262019 10:55am 0.0 # 0.0-0.2 [facility], [address] [place] [address] 75289 Absolute Basophils (CBC) January 23, 2020 3:25pm 0.0 # 0.0-0.2 [facility], [address] [place] [address] 32414 Absolute Basophils (CBC) December 09, 2019 8:50am 0.0 # 0.0-0.2 [facility], [address] [place] [address] 33689 Immature Granulocyte % (Auto) Januar y 2020 7:15am 0.4 % 0-2 [facility], [address] [place] [address] 17660 Immature Granulocyte % (Auto) Decemb er 2019 5:07am 0.2 % 0-2 [facility], [address] [place] [address] 80082 Immature Granulocyte % (Auto) [facility] er 2019 10:55am 0.2 % 0-2 [facility], [address] [place] [address] 49966 Immature Granulocyte % (Auto) January 092019 3:25pm 0.0 % 0-2 [facility], [address] [place] [address] Immature Granulocyte % (Auto) December 09, 2019 8:50am 0.4 % 0-2 [facility], [address] [place] [address] 74963 Absolute Immature Granulocyte (auto September 06, 2020 7:15am 0.0 # 0-0.1 [facility], [address] [place] [address] 84012 Absolute Immature Granulocyte (auto August 10, 2020 5:07am 0.0 # 0-0.1 [facility], [address] [place] [address] 12346 Absolute Immature Granulocyte (auto July 26, 2020 10:55am 0.0 # 0-0.1 [facility], [address] [place] [address] 35423 Absolute Immature Granulocyte (auto January 23, 2020 3:25pm 0.0 # 0-0.1 [facility], [address] [place] [address] 62221 Absolute Immature Granulocyte (auto December 09, 2019 8:50am 0.0 # 0-0.1 [facility], [address] [place] [address] 69064 Add Manual Differential August 7:15am No [facility], [address] [place] [address] 66049 Add Manual Differential July 5:07am No [facility], [address] [place] [address] 09121 Add Manual Differential July 10:55am No [facility], [address] [place] [address] 13901 Add Manual Differential January 22 3:25pm No [facility], [address] [place] [address] 67560 Add Manual Differential December 09, 2019 8:50am No [facility], [address] [place] [address] 09587 Prothrombin Time September 06, 2020 7:15am Greater than 90 SECONDS 9.6-12.[address] MURDOCK @ 0837 by Kole Flores. Results read back. Repeated by: Gus Flores 09/06/20 0839.Result Confirmation: > 90 SECONDS [facility], [address] [place] [address] 98598 Prothrombin Time August 10, 2020 4:55p m 21.6 SECONDS 9.6-12.3 [facility], [address] [place] [address] 84332 Prothrombin Time July 07, 2020 9:27a m 25.6 SECONDS 9.6-12.3 [facility], [address] [place] [address] 16996 Prothrombin Time June 30, 2020 11:25am 39.2 SECONDS 9.6-12.3 [facility], [address] [place] [address] 46165 Prothrombin Time June 23, 2020 9:40a m 34.0 SECONDS 9.6-12.3 [facility], [address] [place] [address] 96457 Prothrombin Time May 23, 2020 8:56am 25.7 SECONDS 9.6-12.3 [facility], [address] [place] [address] 88554 Prothrombin Time May 12, 2020 6:26am 32.4 SECONDS 9.6-12.3 [facility], [address] [place] [address] 51309 Prothrombin Time March 31, 2020 6:17am 25.2 SECONDS 9.6-12.3 [facility], [address] [place] [address] 02751 Prothrombin Time March 08, 2020 9:37am 22.5 SECONDS 9.6-12.3 [facility], [address] [place] [address] 77069 Prothrombin Time February 28, 2020 6:27am 29.5 SECONDS 9.6-12.3 [facility], [address] [place] [address] 58089 Prothrombin Time February 18, 2020 11:47am 16.9 SECONDS 9.6-12.3 [facility], [address] [place] [address] 88137 Prothrombin Time February 10, 2020 9:13am 18.7 SECONDS 9.6-12.3 [facility], [address] [place] [address] 16840 Prothrombin Time January 23, 2020 3:25pm 24.4 SECONDS 9.6-12.3 [facility], [address] [place] [address] Prothrombin Time January 21, 2020 6:17am 22.3 SECONDS 9.6-12.3 [facility], [address] [place] [address] Prothrombin Time January 14, 2020 6:12am 37.7 SECONDS 9.6-12.3 [facility], [address] [place] [address] 39673 Prothrombin Time January 07, 2020 8:35am 26.5 SECONDS 9.6-12.3 [facility], [address] [place] [address] Prothrombin Time January 06, 2020 8:35am 40.3 SECONDS 9.6-12.3 [facility], [address] [place] [address] Prothrombin Time December 30, 2019 8:30am 31.9 SECONDS 9.6-12.3 [facility], [address] [place] [address] Prothrombin Time December 27, 2019 8:40am 26.4 SECONDS 9.6-12.3 [facility], [address] [place] [address] Prothrombin Time December 24, 2019 8:35am 25.7 SECONDS 9.6-12.3 [facility], [address] [place] [address] Prothrombin Time December 23, 2019 8:18am 41.9 SECONDS 9.6-12.3 [facility], [address] [place] [address] Prothrombin Time December 22, 2019 7:56am 78.2 SECONDS 9.6-12.3 [facility], [address] [place] [id number] Prothrombin Time December 15, 2019 8:17am 28.9 SECONDS 9.6-12.3 [facility], [address] [place] [address] Prothrombin Time December 13, 2019 7:19am 17.0 SECONDS 9.6-12.3 [facility], [address] [place] [id number] Prothrombin Time December 06, 2019 8:34am 13.2 SECONDS 9.6-12.3 [facility], [address] [place] [id number] Prothrombin Time December 01, 2019 8:30am 39.8 SECONDS 9.6-12.3 [facility], [address] [place] [id number] Prothrombin Time November 26, 2019 8:55am 19.1 SECONDS 9.6-12.3 [facility], [address] [place] [id number] Prothrombin Time November 23, 2019 6:12am 16.2 SECONDS 9.6-12.3 [facility], [address] [place] [address] 27734 Prothrombin Time November 09, 2019 6:02am 18.2 SECONDS 9.6-12.3 [facility], [address] [place] [id number] Prothrombin Time October 19, 2019 6:15am 19.8 SECONDS 9.6-12.3 [facility], [address] [place] [address] 50105 Prothrombin Time October 12, 2019 7:21am 16.7 SECONDS 9.6-12.3 [facility] LABORATORY, [address] [place] [address] 87635 Prothrombin Time September 14, 2019 7:20am 21.6 SECONDS 9.6-12.3 [facility], [address] [place] [address] 16246 INR International Normalized Ratio J anuary 2020 7:15am Greater than 9.8 0.9-[address] MURDOCK @ 0837 by Kole Flores. Results read back. Repeated by: Gus Flores 09/06/20 0838.Result Confirmation: >9.8THE INR IS OPERATIONALLY DEFINED FOR FRESH PLASMA FROMPATIENTS STABILIZED ON ORAL ANTICOAGULANTS. ROUTINE ANTICOAGULANT THERAPY 2.0-3.0RECURRENT SYSTEMIC EMBOLISM/HEART VALVE REPLACEMENT 2.5-3.5 [facility], [address] [place] [address] 87412 INR International Normalized Ratio D ecember 2019 4:55pm 2.1 0.9-1.1 THE INR IS OPERATIONALLY DEFINED FOR PIPPA SH PLASMA FROMPATIENTS STABILIZED ON ORAL ANTICOAGULANTS. ROUTINE ANTICOAGULANT THERAPY 2.0-3.0RECURRENT SYSTEMIC EMBOLISM/HEART VALVE REPLACEMENT 2.5-3.5 [facility], [address] [place] [address] 04975 INR International Normalized Ratio N ovember 2019 9:27am 2.5 0.9-1.1 THE INR IS OPERATIONALLY DEFINED FOR PIPPA SH PLASMA FROMPATIENTS STABILIZED ON ORAL ANTICOAGULANTS. ROUTINE ANTICOAGULANT THERAPY 2.0-3.0RECURRENT SYSTEMIC EMBOLISM/HEART VALVE REPLACEMENT 2.5-3.5 [facility], [address] [place] [address] 68453 INR International Normalized Ratio N ov2019 11:25am 3.9 0.9-1.1 THE INR IS OPERATIONALLY DEFINED FOR PIPPA SH PLASMA FROMPATIENTS STABILIZED ON ORAL ANTICOAGULANTS. ROUTINE ANTICOAGULANT THERAPY 2.0-3.0RECURRENT SYSTEMIC EMBOLISM/HEART VALVE REPLACEMENT 2.5-3.5 [facility], [address] [place] [address] INR International Normalized Ratio N ovember 2019 9:40am 3.4 0.9-1.1 THE INR IS OPERATIONALLY DEFINED FOR PIPPA SH PLASMA FROMPATIENTS STABILIZED ON ORAL ANTICOAGULANTS. ROUTINE ANTICOAGULANT THERAPY 2.0-3.0RECURRENT SYSTEMIC EMBOLISM/HEART VALVE REPLACEMENT 2.5-3.5 [facility], [address] [place] [address] INR International Normalized Ratio O ctober 2019 8:56am 2.5 0.9-1.1 THE INR IS OPERATIONALLY DEFINED FOR PIPPA SH PLASMA FROMPATIENTS STABILIZED ON ORAL ANTICOAGULANTS. ROUTINE ANTICOAGULANT THERAPY 2.0-3.0RECURRENT SYSTEMIC EMBOLISM/HEART VALVE REPLACEMENT 2.5-3.5 [facility], [address] [place] [address] INR International Normalized Ratio O ctober 2019 6:26am 3.2 0.9-1.1 THE INR IS OPERATIONALLY DEFINED FOR PIPPA SH PLASMA FROMPATIENTS STABILIZED ON ORAL ANTICOAGULANTS. ROUTINE ANTICOAGULANT THERAPY 2.0-3.0RECURRENT SYSTEMIC EMBOLISM/HEART VALVE REPLACEMENT 2.5-3.5 [facility], [address] [place] [address] INR International Normalized Ratio A ugust 2019 6:17am 2.5 0.9-1.1 THE INR IS OPERATIONALLY DEFINED FOR PIPPA SH PLASMA FROMPATIENTS STABILIZED ON ORAL ANTICOAGULANTS. ROUTINE ANTICOAGULANT THERAPY 2.0-3.0RECURRENT SYSTEMIC EMBOLISM/HEART VALVE REPLACEMENT 2.5-3.5 [facility], [address] [place] [address] INR International Normalized Ratio J gabriella 2019 9:37am 2.2 0.9-1.1 THE INR IS OPERATIONALLY DEFINED FOR PIPPA SH PLASMA FROMPATIENTS STABILIZED ON ORAL ANTICOAGULANTS. ROUTINE ANTICOAGULANT THERAPY 2.0-3.0RECURRENT SYSTEMIC EMBOLISM/HEART VALVE REPLACEMENT 2.5-3.5 [facility], [address] [place] [address] INR International Normalized Ratio J gabriella 2019 6:27am 2.9 0.9-1.1 THE INR IS OPERATIONALLY DEFINED FOR PIPPA SH PLASMA FROMPATIENTS STABILIZED ON ORAL ANTICOAGULANTS. ROUTINE ANTICOAGULANT THERAPY 2.0-3.0RECURRENT SYSTEMIC EMBOLISM/HEART VALVE REPLACEMENT 2.5-3.5 [facility], [address] [place] [address] 17711 INR International Normalized Ratio J gabriella 2019 11:47am 1.6 0.9-1.1 THE INR IS OPERATIONALLY DEFINED FOR PIPPA SH PLASMA FROMPATIENTS STABILIZED ON ORAL ANTICOAGULANTS. ROUTINE ANTICOAGULANT THERAPY 2.0-3.0RECURRENT SYSTEMIC EMBOLISM/HEART VALVE REPLACEMENT 2.5-3.5 [facility], [address] [place] [address] 46903 INR International Normalized Ratio J gabriella 2019 9:13am 1.8 0.9-1.1 THE INR IS OPERATIONALLY DEFINED FOR FRESH PLASMA FROMPATIENTS STABILIZED ON ORAL ANTICOAGULANTS. ROUTINE ANTICOAGULANT THERAPY 2.0-3.0RECURRENT SYSTEMIC EMBOLISM/HEART VALVE REPLACEMENT 2.5-3.5 [facility], [address] [place] [address] 50505 INR International Normalized Ratio J [facility] 2019 3:25pm 2.5 0.9-1.1 THE INR IS OPERATIONALLY DEFINED FOR PIPPA SH PLASMA FROMPATIENTS STABILIZED ON ORAL ANTICOAGULANTS. ROUTINE ANTICOAGULANT THERAPY 2.0-3.0RECURRENT SYSTEMIC EMBOLISM/HEART VALVE REPLACEMENT 2.5-3.5 [facility], [address] [place] [address] 23545 INR International Normalized Ratio J une 2019 6:17am 2.3 0.9-1.1 THE INR IS OPERATIONALLY DEFINED FOR PIPPA SH PLASMA FROMPATIENTS STABILIZED ON ORAL ANTICOAGULANTS. ROUTINE ANTICOAGULANT THERAPY 2.0-3.0RECURRENT SYSTEMIC EMBOLISM/HEART VALVE REPLACEMENT 2.5-3.5 [facility], [address] [place] [address] 83833 INR International Normalized Ratio J une 2019 6:12am 4.0 0.9-1.1 THE INR IS OPERATIONALLY DEFINED FOR FRESH PLASMA FROMPATIENTS STABILIZED ON ORAL ANTICOAGULANTS. ROUTINE ANTICOAGULANT THERAPY 2.0-3.0RECURRENT SYSTEMIC EMBOLISM/HEART VALVE REPLACEMENT 2.5-3.5 [facility], [address] [place] [address] 23411 INR International Normalized Ratio [facility] 2019 8:35am 2.8 0.9-1.1 THE INR IS OPERATIONALLY DEFINED FOR FRESH PLASMA FROMPATIENTS STABILIZED ON ORAL ANTICOAGULANTS. ROUTINE ANTICOAGULANT THERAPY 2.0-3.0RECURRENT SYSTEMIC EMBOLISM/HEART VALVE REPLACEMENT 2.5-3.5 [facility], [address] [place] [address] 74993 INR International Normalized Ratio M ay 2019 8:35am 4.3 0.9-1.1 THE INR IS OPERATIONALLY DEFINED FOR FRESH PLASMA FROMPATIENTS STABILIZED ON ORAL ANTICOAGULANTS. ROUTINE ANTICOAGULANT THERAPY 2.0-3.0RECURRENT SYSTEMIC EMBOLISM/HEART VALVE REPLACEMENT 2.5-3.5 [facility], [address] [place] [address] 30311 INR International Normalized Ratio M ay 2019 8:30am 3.4 0.9-1.1 THE INR IS OPERATIONALLY DEFINED FOR FRESH PLASMA FROMPATIENTS STABILIZED ON ORAL ANTICOAGULANTS. ROUTINE ANTICOAGULANT THERAPY 2.0-3.0RECURRENT SYSTEMIC EMBOLISM/HEART VALVE REPLACEMENT 2.5-3.5 [facility], [address] [place] [address] 84117 INR International Normalized Ratio M ay 2019 8:40am 2.7 0.9-1.1 THE INR IS OPERATIONALLY DEFINED FOR FRESH PLASMA FROMPATIENTS STABILIZED ON ORAL ANTICOAGULANTS. ROUTINE ANTICOAGULANT THERAPY 2.0-3.0RECURRENT SYSTEMIC EMBOLISM/HEART VALVE REPLACEMENT 2.5-3.5 [facility], [address] [place] [address] 38429 INR International Normalized Ratio M ay 2019 8:35am 2.7 0.9-1.1 THE INR IS OPERATIONALLY DEFINED FOR FRESH PLASMA FROMPATIENTS STABILIZED ON ORAL ANTICOAGULANTS. ROUTINE ANTICOAGULANT THERAPY 2.0-3.0RECURRENT SYSTEMIC EMBOLISM/HEART VALVE REPLACEMENT 2.5-3.5 [facility], [address] [place] [address] 88036 INR International Normalized Ratio M ay 2019 8:18am 4.5 0.9-1.1 THE INR IS OPERATIONALLY DEFINED FOR FRESH PLASMA FROMPATIENTS STABILIZED ON ORAL ANTICOAGULANTS. ROUTINE ANTICOAGULANT THERAPY 2.0-3.0RECURRENT SYSTEMIC EMBOLISM/HEART VALVE REPLACEMENT 2.5-3.5 [facility], [address] [place] [address] 79413 INR International Normalized Ratio M ay 2019 7:56am 8.8 0.9-1.1 Called to DRAKE ROCHE AT [facility] OFFICE @ 0953 by Iraj Garcia. Results read back. Repeated by: Iraj Garcia 12/22/19 0914.Result Confirmation:8.8THE INR IS OPERATIONALLY DEFINED FOR FRESH PLASMA FROMPATIENTS STABILIZED ON ORAL ANTICOAGULANTS. ROUTINE ANTICOAGULANT THERAPY 2.0-3.0RECURRENT SYSTEMIC EMBOLISM/HEART VALVE REPLACEMENT 2.5-3.5 [facility], [address] [place] [address] INR International Normalized Ratio M ay 2019 8:17am 3.0 0.9-1.1 THE INR IS OPERATIONALLY DEFINED FOR FRESH PLASMA FROMPATIENTS STABILIZED ON ORAL ANTICOAGULANTS. ROUTINE ANTICOAGULANT THERAPY 2.0-3.0RECURRENT SYSTEMIC EMBOLISM/HEART VALVE REPLACEMENT 2.5-3.5 [facility], [address] [place] [address] INR International Normalized Ratio M ay 2019 7:19am 1.7 0.9-1.1 THE INR IS OPERATIONALLY DEFINED FOR FRESH PLASMA FROMPATIENTS STABILIZED ON ORAL ANTICOAGULANTS. ROUTINE ANTICOAGULANT THERAPY 2.0-3.0RECURRENT SYSTEMIC EMBOLISM/HEART VALVE REPLACEMENT 2.5-3.5 [facility], [address] [place] [address] INR International Normalized Ratio A pril 2019 8:34am 1.3 0.9-1.1 THE INR IS OPERATIONALLY DEFINED FOR PIPPA SH PLASMA FROMPATIENTS STABILIZED ON ORAL ANTICOAGULANTS. ROUTINE ANTICOAGULANT THERAPY 2.0-3.0RECURRENT SYSTEMIC EMBOLISM/HEART VALVE REPLACEMENT 2.5-3.5 [facility], [address] [place] [address] INR International Normalized Ratio A pril 2019 8:30am 4.3 0.9-1.1 THE INR IS OPERATIONALLY DEFINED FOR PIPPA SH PLASMA FROMPATIENTS STABILIZED ON ORAL ANTICOAGULANTS. ROUTINE ANTICOAGULANT THERAPY 2.0-3.0RECURRENT SYSTEMIC EMBOLISM/HEART VALVE REPLACEMENT 2.5-3.5 [facility], [address] [place] [address] 31647 INR International Normalized Ratio A pril 2019 8:55am 1.9 0.9-1.1 THE INR IS OPERATIONALLY DEFINED FOR PIPPA SH PLASMA FROMPATIENTS STABILIZED ON ORAL ANTICOAGULANTS. ROUTINE ANTICOAGULANT THERAPY 2.0-3.0RECURRENT SYSTEMIC EMBOLISM/HEART VALVE REPLACEMENT 2.5-3.5 [facility], [address] [place] [address] 18929 INR International Normalized Ratio A pril 2019 6:12am 1.6 0.9-1.1 THE INR IS OPERATIONALLY DEFINED FOR PIPPA SH PLASMA FROMPATIENTS STABILIZED ON ORAL ANTICOAGULANTS. ROUTINE ANTICOAGULANT THERAPY 2.0-3.0RECURRENT SYSTEMIC EMBOLISM/HEART VALVE REPLACEMENT 2.5-3.5 [facility], [address] [place] [address] 22280 INR International Normalized Ratio M arch 2019 6:02am 1.8 0.9-1.1 THE INR IS OPERATIONALLY DEFINED FOR PIPPA SH PLASMA FROMPATIENTS STABILIZED ON ORAL ANTICOAGULANTS. ROUTINE ANTICOAGULANT THERAPY 2.0-3.0RECURRENT SYSTEMIC EMBOLISM/HEART VALVE REPLACEMENT 2.5-3.5 [facility], [address] [place] [address] 43169 INR International Normalized Ratio M arch 2019 6:15am 2.0 0.9-1.1 THE INR IS OPERATIONALLY DEFINED FOR PIPPA SH PLASMA FROMPATIENTS STABILIZED ON ORAL ANTICOAGULANTS. ROUTINE ANTICOAGULANT THERAPY 2.0-3.0RECURRENT SYSTEMIC EMBOLISM/HEART VALVE REPLACEMENT 2.5-3.5 [facility], [address] [place] [address] 88006 INR International Normalized Ratio M arch 2019 7:21am 1.7 0.9-1.1 THE INR IS OPERATIONALLY DEFINED FOR PIPPA SH PLASMA FROMPATIENTS STABILIZED ON ORAL ANTICOAGULANTS. ROUTINE ANTICOAGULANT THERAPY 2.0-3.0RECURRENT SYSTEMIC EMBOLISM/HEART VALVE REPLACEMENT 2.5-3.5 [facility], [address] [place] [address] 81181 INR International Normalized Ratio F ebruary 2019 7:20am 2.20 0.9-1.1 THE INR IS OPERATIONALLY DEFINED FOR PIPPA SH PLASMA FROMPATIENTS STABILIZED ON ORAL ANTICOAGULANTS. ROUTINE ANTICOAGULANT THERAPY 2.0-3.0RECURRENT SYSTEMIC EMBOLISM/HEART VALVE REPLACEMENT 2.5-3.5 [facility], [address] [place] [address] 31120 [facility] 7:15am 86.5 SECONDS 22.7-31.6 Called to CRISTOPHER Herrera @ 0819 by Marko Flores. Results read back. Repeated by: Gus Flores 09/06/20819.Result Confirmation: 86.5 SECONDS [facility], [address] [place] [address] 55183 Urine Color September 06, 2020 7:28am Yellow [facility], [address] [place] [address] 03523 Urine Appearance September 06, 2020 7:28am Cloudy CLEAR [facility], [address] [place] [address] 93758 Urine pH September 06, 2020 7:28am 5.0 [facility], [address] [place] [address] 29551 Urine Specific Webster September 06, 2020 7:28am 1.023 [facility], [address] [place] [address] 60886 Urine Leukocyte Esterase August 7:28am Trace NEGATIVE [facility], [address] [place] [address] 05682 Urine Nitrite September 06, 2020 7:28am Negative NEGATIVE [facility], [address] [place] [address] 93860 Urine Protein September 06, 2020 7:28am 30 mg/dl NEGATIVE [facility], [address] [place] [address] 20232 Urine Glucose September 06, 2020 7:28am Negative NEGATIVE [facility], [address] [place] [address] 37311 Urine Ketones September 06, 2020 7:28am Trace NEGATIVE [facility], [address] [place] [address] 03150 Urine Urobilinogen September 06 7:28am 0.2 eu/dl [facility], [address] [place] [address] 65398 Urine Bilirubin September 06, 2020 7:28am Negative NEGATIVE [facility], [address] [place] [address] 00695 Urine Blood September 06, 2020 7:28am Moderate NEGATIVE [facility], [address] [place] [address] 03778 Microscopic Urinalysis Comment Janua ry 2020 7:28am Microscopic added [facility], [address] [place] [address] 09299 Urine RBC September 06, 2020 7:28am Occasional /hpf [facility], [address] [place] [address] 31171 Urine WBC September 06, 2020 7:28am 1-2 /hpf [facility], [address] [place] [address] 56777 Urine Amorphous Sediment August 7:28am Mod amt urates [facility], [address] [place] [address] 24272 Arterial Blood pH (Temp corrected) J anuary 2020 2:30pm 7.13 7.35-7.[address] murdock @ 1439 by Paulette levy. Results read back. [facility], [address] [place] [address] 42347 Arterial Blood pCO2 (Temp correct) J anuary 2020 2:30pm 26.3 mmHg 32.0-46.0 [facility], [address] [place] [address] 39172 Arterial Blood pO2 (Temp corrected) September 06, 2020 2:30pm 111.0 mmHg 74.0-100.0 [facility], [address] [place] [address] 59177 Arterial Bld O2 Saturation (Measur) September 06, 2020 2:30pm 97.9 % 92.0-96.0 [facility], [address] [place] [address] 49674 Arterial Blood HCO3 September 06 2:30pm 8.7 mmol/L 21.0-29.0 [facility], [address] [place] [address] 64920 Arterial Blood Base Excess August 122020 2:30pm -18.9 -2.0-2.0 [facility], [address] [place] [address] 44260 Arterial Blood Total CO2 August 2:30pm 9.5 mmol/L 22.0-30.0 [facility], [address] [place] [address] 97433 FiO2 September 06, 2020 2:30pm 28 % [facility], [address] [place] [address] 48298 Arterial/Alveolar Ratio August 2:30pm 0.6 0.8-1.0 [facility], [address] [place] [address] 18542 Oxygen Delivery Method (LAB) September 06, 2020 2:30pm Nasal cannula [facility], [address] [place] [address] 09914 Blood Gas Puncture Site August 2:30pm Left radial artery [facility], [address] [place] [address] 08929 Duncan Test September 06, 2020 2:30pm Performed [facility], [address] [place] [address] 23492 Blood Urea Nitrogen September 06 7:15am 131 mg/dL 9-23 Delta: 70 on 08/10/20-0507Called to DR. MURDOCK @ 0807 by Gus Flores. Results read back. Repeated by: Gus Flores 09/06/20 0808.Result Confirmation: 132 mg/dL [facility], [address] [place] [address] 63268 Blood Urea Nitrogen August 10 5:07am 70 mg/dL 05-03 [facility], [address] [place] [address] 95503 Blood Urea Nitrogen January 23, 2020 3:25pm 73 mg/dL 05-03 [facility], [address] [place] [address] 46401 Blood Urea Nitrogen December 09, 2019 8:50a m 95 mg/dL 05-03 Called to KENNETH Nava @ 1024 by Maggie Clark. Results read back. Repeated by: Maggie Clark 12/09/19 1024.Result Confirmation: 98 mg/dL [facility], [address] [place] [address] 69345 Sodium Level September 06, 2020 7:15am 136 mmol/L 132-146 [facility], [address] [place] [address] 93597 Sodium Level August 10, 2020 5:07am 142 mmol/L 132-146 [facility], [address] [place] [address] 47972 Sodium Level January 23, 2020 3:25pm 139 mmol/L 132-146 [facility], [address] [place] [address] 13902 Sodium Level December 09, 2019 8:50am 139 mmol/L 132-146 [facility], [address] [place] [address] 72893 Potassium Level September 06, 2020 7:15am 4.3 mmol/L 3.5-5.5 [facility], [address] [place] [address] 42694 Potassium Level August 10, 2020 5:07am 4.1 mmol/L 3.5-5.5 [facility], [address] [place] [address] 90936 Potassium Level January 23, 2020 3:25pm 4.2 mmol/L 3.5-5.5 [facility], [address] [place] [address] 84075 Potassium Level December 09, 2019 8:50am 4.3 mmol/L 3.5-5.5 [facility], [address] [place] [address] 76598 Chloride Level September 06, 2020 7:15am 107 mmol/l 99-109 [facility], [address] [place] [address] 63024 Chloride Level August 10, 2020 5:07am 112 mmol/l 99-109 [facility], [address] [place] [address] 57017 Chloride Level January 23, 2020 3:25pm 109 mmol/l 99-109 [facility], [address] [place] [address] 78333 Chloride Level December 09, 2019 8:50am 113 mmol/l 99-109 [facility], [address] [place] [address] 03585 Carbon Dioxide Level September 06 7:15am 7 mmol/l Delta: 22 on 08/10/20-0507Called to DR. MURDOCK @ 0807 by Gus Flores. Results read back. Repeated by: Gus Flores 09/06/20 0808.Result Confirmation: 7 mmol/l [facility], [address] [place] [address] 48191 Carbon Dioxide Level August 10, 2020 5:07am 22 mmol/l [facility], [address] [place] [address] 91346 Carbon Dioxide Level January 23, 2020 3:25p m 19 mmol/l [facility], [address] [place] [address] 20410 Carbon Dioxide Level December 08 8:50am 16 mmol/l [facility], [address] [place] [address] 82654 Anion Gap September 06, 2020 7:15am 26 mmol/l -16 [facility], [address] [place] [address] 86113 Anion Gap August 10, 2020 5:07am 12 mmol/l 8-16 [facility], [address] [place] [address] 11413 Anion Gap January 23, 2020 3:25pm 15 mmol/l 8-16 [facility], [address] [place] [address] 44352 Anion Gap December 09, 2019 8:50am 14 mmol/l 8-16 [facility], [address] [place] [address] 55670 Glucose Level September 06, 2020 7:15am 93 mg/dL 74-106 [facility], [address] [place] [address] 14205 Glucose Level August 10, 2020 5:07am 98 mg/dL 74-106 [facility], [address] [place] [address] 04183 Glucose Level January 23, 2020 3:25pm 177 mg/dL 74-106 [facility], [address] [place] [address] Glucose Level December 09, 2019 8:50am 134 mg/dL 74-106 [facility], [address] [place], [place] [id number] Bedside Glucose August 10, 2020 5:04pm 125 70-110 WOOD PCX (POC GLUCOSE) Creatinine September 06, 2020 7:15am 8.0 mg/dL 0.5-1.1 Delta: 3.0 on 08/10/20-0507Called to DR. MURDOCK @ 0807 by Gus Flores. Results read back. Repeated by: Gus Flores 09/06/20 0808.Result Confirmation: 8.1 mg/dL [facility], [address] [place] [address] Creatinine August 10, 2020 5:07am 3.0 mg/dL 0.5-1.1 [facility], [address] [place] [address] Creatinine January 23, 2020 3:25pm 3.0 mg/dL 0.5-1.1 [facility], [address] [place] [address] Creatinine December 09, 2019 8:50am 4.0 mg/dL 0.5-1.1 [facility], [address] [place], [place] [id number] Glomerular Filtration Rate Calc Brennan daniel 2020 7:15am 7 ml/min ABOVE 60 [facility], [address] [place] [address] Glomerular Filtration Rate Calc Dece mber 2019 5:07am 20 ml/min ABOVE 60 [facility], [address] [place] [address] Glomerular Filtration Rate Calc January 23, 2020 3:25pm 20 ml/min ABOVE 60 [facility], [address] [place] [address] Glomerular Filtration Rate Calc Apri l 2019 8:50am 15 ml/min ABOVE 60 [facility], [address] [place] [address] Alanine Aminotransferase (ALT/SGPT) September 06, 2020 7:15am 13 U/L 10-49 [facility], [address] [place] [address] Alanine Aminotransferase (ALT/SGPT) August 10, 2020 5:07am 13 U/L 10-49 [facility], [address] [place] [address] 22639 Alanine Aminotransferase (ALT/SGPT) January 23, 2020 3:25pm 17 U/L 10-49 [facility], [address] [place] [address] Alanine Aminotransferase (ALT/SGPT) December 09, 2019 8:50am 20 U/L 10-49 [facility], [address] [place] [address] 67223 Aspartate Amino Transf (AST/SGOT) Ja nuary 2020 7:15am 9 U/L 0-33 [facility], [address] [place] [address] [id number] Aspartate Amino Transf (AST/SGOT) De cember 2019 5:07am 18 U/L 0-33 [facility], [address] [place] [address] 56754 Aspartate Amino Transf (AST/SGOT) Ju ne 2019 3:25pm 16 U/L 0-33 [facility], [address] [place] [address] 09505 Aspartate Amino Transf (AST/SGOT) Ap ril 2019 8:50am 16 U/L 0-33 [facility], [address] [place] [address] [id number] Alkaline Phosphatase September 06 7:15am 114 U/L 45-129 [facility], [address] [place] [address] 70085 Alkaline Phosphatase August 10, 2020 5:07am 121 U/L 45-129 [facility], [address] [place] [address] [id number] Alkaline Phosphatase January 23, 2020 3:25p m 119 U/L 45-129 [facility], [address] [place] [address] 01994 Alkaline Phosphatase December 08 0 8:50am 112 U/L 45-129 [facility], [address] [place] [address] 23139 Calcium Level September 06, 2020 7:15am 8.8 mg/dL 8.5-10.1 Delta: 10.1 on 08/10/20-0507Repeated by: Gus Flores 09/06/20 0814.Result Confirmation: 8.7 # mg/dL [facility], [address] [place] [address] 80216 Calcium Level August 10, 2020 5:07am 10.1 mg/dL 8.5-10.1 [facility], [address] [place] [address] Calcium Level January 23, 2020 3:25pm 9.8 mg/dL 8.5-10.1 [facility], [address] [place], [place] [id number] Calcium Level December 09, 2019 8:50am 9.8 mg/dL 8.5-10.1 [facility], [address] [place], [place] [id number] Total Bilirubin September 06, 2020 7:15am 0.3 mg/dL 0.3-1.2 [facility], [address] [place] [address] Total Bilirubin August 10, 2020 5:07am 0.2 mg/dL 0.3-1.2 [facility], [address] [place], [place] [id number] Total Bilirubin January 23, 2020 3:25pm 0.3 mg/dL 0.3-1.2 [facility], [address] [place], [place] [id number] Total Bilirubin December 09, 2019 8:50am 0.3 mg/dL 0.3-1.2 [facility], [address] [place], [place] [id number] Albumin September 06, 2020 7:15am 3.1 g/dL 3.2-4.8 [facility], [address] [place], [place] [id number] Albumin August 10, 2020 5:07am 3.5 g/dL 3.2-4.8 [facility], [address] [place], [place] [id number] Albumin January 23, 2020 3:25pm 3.7 g/dL 3.2-4.8 [facility], [address] [place], [place] [id number] Albumin December 09, 2019 8:50am 3.9 g/dL 3.2-4.8 [facility], [address] [place], [place] [id number] Serum Total Protein September 06 7:15am 6.5 g/dL 5.7-8.2 [facility], [address] [place] [address] Serum Total Protein August 10 5:07am 7.2 g/dL 5.7-8.2 [facility] [facility], [address] [place], [place] [id number] Serum Total Protein January 23, 2020 3:25pm 7.5 g/dL 5.7-8.2 [facility], [address] [place] [address] Serum Total Protein December 09, 2019 8:50a m 7.5 g/dL 5.7-8.2 [facility], [address] [place] [address] Lactic Acid Level September 06, 2020 7:15a m 1.1 mmol/L 0.5-2.2 [facility], [address] [place] [address] Iron Level December 09, 2019 8:51am 129 ug/dL 65-175 Iron values ma y be falsely elevated in serum samples frompatients treated with anticoagulants (e.g., hemodialysispatients) [facility], [address] [place] [address] Iron Saturation December 09, 2019 8:51am 38 20-55 [facility], [address] [place] [address] Total Iron Binding Capacity December 082019 8:51am 341 ug/dl 250-450 [facility], [address] [place] [address] Ferritin December 09, 2019 8:51am 432 ng/mL 22-322 [facility], [address] [place] [address] Troponin I September 06, 2020 7:15am 0.030 ng/mL 0.00-0.09 Less than 0.09 NG/ML Negative0.10 - 0.77 NG/ML High Risk0.78 NG/ML or Greater Positive The WHO defined the cutoff (definition for diagnosis of NM)for this method as 0.78 ng/ml. [facility], [address] [place] [address] Troponin I August 10, 2020 5:07am Less than 0.015 ng/mL 0.00-0.09 Less than 0.09 NG/ML Negative0.10 - 0.77 NG/ML High Risk0.78 NG/ML or Greater Positive The WHO defined the cutoff (definition for diagnosis of NM)for this method as 0.78 ng/ml. [facility], [address] [place] [address] Troponin I December 09, 2019 8:50am Less than 0.015 ng/mL 0.00-0.09 Less than 0.09 NG/ML Negative0.10 - 0.77 NG/ML High Risk0.78 NG/ML or Greater Positive The WHO defined the cutoff (definition for diagnosis of NM)for this method as 0.78 ng/ml. [facility], [address] [place] [address] Thyroid Stimulating Hormone (TSH) De marcellaber 2019 3:50pm 2.99 uIU/mL 0.35-5.50 [facility], [address] [place], [place] [id number] Testosterone Level November 09, 2019 6:02am 5 ng/dL Adult male reference interval is based on a population ofhealthy nonobese males (BMI <30) between 19 and 39 yearsold. Warren, et.al. JCEM 2017,102;3700-4110. PMID:[id number]. [facility] , [address] [facility] [address] Free Testosterone November 09, 2019 6:02am 3.8 pg/mL Performed at: RN - [facility] [address] [id number] Director: Cecy Babin MD, Phone: [phone] [facility] , [address] [facility] [address] Lyme Disease Ab Tot Immunoglobulins March 08, 2020 9:37am Less than 0.91 ISR Negative <0.91 Equivocal 0.91 - 1.09 Positive >1.09 [facility] , [address] [facility] [address] Lyme Disease IgM Ab Quantitation Feb 9:37am Less than 0.80 index Negative <0.80 Equivocal 0.80 - 1.19 Positive >1.19 IgM levels may peak at 3-6 weeks post infection, then gradually decline.Performed at: RN - [facility] [address] [place] [id number] Director: Cecy Babin MD, Phone: [phone] [facility] , [address] [facility] [address] Pro-B-Type Natriuretic Peptide December 09, 2019 8:50am 1806.00 pg/mL 0.00-450 [facility], [address] [place] [address] Microbiology Results Procedure Source Result Collection Date/Time Result Date/Time Result Comment Performing Site Respiratory Panel (PCR) Nasopharyngeal No Organisms Detected September 06, 2020 7:15am September 06, 2020 8:53am [facility], [address] [place] [address] Respiratory Panel (PCR) Nasopharyngeal No Organisms Detected August 09, 2020 3:23pm August 09, 2020 4:32pm [facility], [address] [place] [address] Diagnostic Imaging Reports Report Dictated Date/Time Dictated By Status Radiology Report October 20, 2019 11:28am Young Lira MD completed [facility] [id number] [place] [address] [phone] NAME SEX PT STATUS ACCOUNT NUMBER BR[employer]TON GOMEZ REG REF [id number] ORDERING PHYSICIAN LOCATION MEDICAL RECORD NO. Tono Guardado DO RAD [id number] ATTENDING PHYSICIAN DATE OF DATE OF EXAM/TIME [...] 09, 2019 10:25am Young Lira MD completed [facility] [address] [place] [address] [phone] NAME SEX PT STATUS ACCOUNT NUMBER BRITTON GOMEZ [facility] ER [id number] ORDERING PHYSICIAN LOCATION MEDICAL RECORD NO. Ko Ramos MD ER [id number] ATTENDING PHYSICIAN DATE OF DATE OF EXAM/TIME DylonTara 1940 12/09/19 / 1018 TYPE / EXAM Xray Chest One View [...] Date Time CC: Young Lira MD; Tara TIN CAN FEEDER Dylon Techn: FROSA Trans Dt/Tm: Trans by: DT Prt Dt/Tm: [id number]: Total DLP = 0.00 mGy-cm Fluoroscopy Time (in secs): Radiology Report January 23, 2020 5:08pm Floyd Cain MD completed [facility] [address] [place] [address] [phone] NAME SEX PT STATUS ACCOUNT NUMBER [facility]OME[employer] [facility] [id number] ORDERING PHYSICIAN LOCATION MEDICAL RECORD NO. Kyaw Richardson [id number] ATTENDING PHYSICIAN DATE OF DATE OF EXAM/TIME [...] 23, 2020 5:41pm Floyd Cain MD completed [facility] [address] [place] [id number] [phone] NAME SEX PT STATUS ACCOUNT NUMBER BR[employer]TON GOMEZ [facility] [id number] ORDERING PHYSICIAN LOCATION MEDICAL RECORD NO. Kyaw YOUNG [facility] [id number] ATTENDING PHYSICIAN DATE OF DATE OF EXAM/TIME [...] 2020 5:14p m Krystyna Weir MD completed [place] [address] [place] [address] [phone] NAME SEX PT STATUS ACCOUNT NUMBER BR[employer]TON GOMEZ [facility] ER [id number] ORDERING PHYSICIAN LOCATION MEDICAL RECORD NO. Carlos Galvin MD ER [id number] ATTENDING PHYSICIAN DATE OF DATE OF EXAM/TIME Tono Guardado DO 1940 08/09/201539 TYPE / EXAM Xray Chest One View [...] Time ) Signed by: Krystyna Weir M.D., [facility] Reported By Krystyna Weir MD on 08/09/201713 Signed By Krystyna Weir MD on 08/09/201713 Date Time CC: Tono Guardado DO; Krystyna Weir MD Techn: EBEBR Trans Dt/Tm: Trans by: DT Prt Dt/Tm: [id number]: Total DLP = 0.00 mGy-cm Fluoroscopy Time (in secs): Radiology Report August 09, 2020 7:21p m Floyd Cain MD completed [facility] [address] [place] [address] [phone] NAME SEX PT STATUS ACCOUNT NUMBER BR[employer]TON GOMEZ ADM JOY [id number] ORDERING PHYSICIAN LOCATION MEDICAL RECORD NO. Jael Looney [id number] ATTENDING PHYSICIAN DATE OF DATE OF EXAM/TIME Tono Guardado DO 1940 08/09/201823 TYPE / EXAM [...] 2020 7:27p m Hema Oleary MD completed [facility] [address] [place] [id number] [phone] NAME SEX PT STATUS ACCOUNT NUMBER BR[employer]TON GOMEZ ADM JOY [id number] ORDERING PHYSICIAN LOCATION [facility]. [id number]ENDING PHYSICIAN DATE OF DATE OF EXAM/TIME [...] Guardado DO; Hema Oleary MD Techn: JORDIN Hwang Dt/Tm: Trans by: MARKELL Prt Dt/Tm: [id number]: Total DLP = 0.00 mGy-cm 5946-2144: Total Radiation Dose = 0.0000 mSv Lifetime Dose: 10.6737 mSv Radiology Report August 10, 2020 3:33p m Bernardo Garnett completed [facility] [address] [facility] [place], [place] [address] [phone] NAME SEX PT STATUS ACCOUNT NUMBER BR[employer]TON GOMEZ DIS JOY [id number] ORDERING PHYSICIAN LOCATION MEDICAL RECORD NO. Jael COREY Looney [id number] ATTENDING PHYSICIAN DATE OF DATE OF EXAM/TIME Tono Guardado DO 1940 08/10/201000 TYPE / EXAM US Echo complete REASON FOR EXAM CHF, chest pain 2-D AND M-MODE ECHO MEASUREMENTS: Aortic root 2.1 cm, left atrium 4.1 cm. 2-D AND M-MODE STUDY: 1. Normal sized aortic root, right atriu m, left ventricle, right ventricle. Enlarged left atrium. 2. Aortic valve replacement noted. Norm al mitral and tricuspid valve. 3. Normal systolic [...] 1708 <<Signature on File>> Date Time CC: Tono Guardado DO; Bernardo Garnett M.D. Techn: STACY Trans Dt/Tm: 08/10/20 1612 Trans by: WESLEY Bernabe Dt/Tm: [id number]: Total DLP = 0.00 mGy-cm 8896-8864: Total Radiation Dose = 0.0000 mSv Lifetime Dose: 10.6737 mSv Health Concerns Health Concerns may be documented in an alternate section. Advance Directives Advance Directive Response Recorded Date/Time Advanced Directive Yes J anuary 2020 7:28am MOLST No August 14 1:44pm Advance Directives on File or in chart? Ye s August 14, 2020 1:44pm Does Patient have a DNR? Yes September 06, 2020 7:28am Healthcare Proxy Yes Eugenio leong 2020 7:28am Health Care Proxy Name Nanette Gomez August 14, 2020 1:44pm Health Care Proxy Phone Number August 14, 2020 1:44pm Living Will Yes August 14, 2020 1:44pm Chief Complaint and Reason for Visit Chief Complaint I48.91, I48.2 Medicare Annual Wellness subsequent I48.91 I48.91 Medication check M54.2 E89.5,I48.91,C61 I48.91 I48.91 I48.91 I48.91 Shortness of breath SOB I48.91 O48.91 O48.91 I48.91 I48.91 I48.91 I48.91 I48.91 I48.91 I48.91 I48.91,J06.9,Z95.2 FALL,EAR LAC Wound Care I48.91,Z95.2 I48.91 I48.91 Hypertension I48.91,W57.XXXA Medicare Annual Wellness subsequent I48.91 I48.91 Rash I48.91 I48.91 Telemed Visit I48.91 Hypertension CHEST PAIN Telemed Visit WEAKNESS Reason for Visit Atrial fibrillation Congestive heart failure (CHF) Weakness Laceration of ear, external, left, complicated Hypertension, essential, benign Atrial fibrillation Neck pain Atrial fibrillation Dermatitis Encounters Encounter Location(s) Ar rival/Admit Date Discharge/Depart Date Provider(s) Registered Referred -Lab Drop Off September 14, 2019 7:00am Julian Herrera DO Departed Physician/Provider Office Visit -[facility] September 14, 2019 10:17am September 14, 2019 11:39am Julian Herrera DO Registered Referred -Lab Drop Off October 12, 2019 7:10am Julian Herrera DO Registered Outpatient -[facility] October 12, 2019 11:44am Julian Herrera DO Registered Referred -Laboratory October 19, 2019 6:00am Tono Guardado DO Registered Outpatient -[facility] October 19, 2019 2:59pm Tono Guardado DO Departed Physician/Provider Office Visit -[facility] October 20, 2019 8:48am October 20, 2019 9:50am Tono Guardado DO Registered Referred -Radiology October 20, 2019 9:54am Tono Guardado DO Registered Referred -Lab Drop Off November 09, 2019 5:55am Tray Vazquez Registered Outpatient -[facility] November 09, 2019 8:42am Tono Guardado DO Registered Referred -Lab Drop Off November 23, 2019 6:05am Kaz Cid MD Registered Referred -Laboratory November 26, 2019 8:30am Kaz Cid MD Registered Referred -Laboratory December 01, 2019 8:00am Kaz Cid MD Registered Referred -Laboratory December 06, 2019 8:00am Kaz Cid MD Departed Physician/Provider Office Visit -[facility] December 09, 2019 7:25am December 09, [...] 2020 5:42pm null Departed Physician/Provider Office Visit -[facility] General Surgery January 25, 2020 1:12pm January 25, 2020 1:36pm Carlos Drummond DO Registered Referred -Laboratory February 10, 2020 9:02am Carmen Presley Registered Outpatient -[facility] February 14, 2020 12:46pm Anjana Lucio NP Registered Referred -Laboratory February 18, 2020 11:08am Tara Osborne Registered Referred -Laboratory February 28, 2020 6:28am Tara Osborne Departed Physician/Provider Office Visit -[facility] March 08, 2020 8:26am March 08, 2020 9:28am Tono Guardado DO Registered Referred -Laboratory March 08, 2020 9:25am Tara Osborne Departed Physician/Provider Office Visit -[facility] March 17, 2020 2:08pm March 17, 2020 3:45pm Tono Guardado DO Registered Referred -Laboratory March 31, 2020 6:00am Tono Guardado DO Registered Referred -Laboratory May 12, 2020 6:23am Tara Osborne Departed Physician/Provider Office Visit -[facility] May 16, 2020 8:27am May 16, 2020 10:03am Tono Guardado DO Registered Referred -Laboratory May 23, 2020 8:54am Tara Dylon Registered Referred -Laboratory June 23, 2020 9:23am Tono Guardado DO Departed Physician/Provider Office Visit -[facility] June 23, 2020 1:13pm June 23, 2020 2:54pm Tono Guardado DO Registered Referred -Laboratory June 30, 2020 11:15am Tono Guardado DO Registered Referred -Laboratory July 07, 2020 9:25am Tono Guardado DO Departed Physician/Provider Office Visit -[facility] July 11, 2020 10:41am July 11, 2020 11:45am Tono Guardado DO Registered Referred -Laboratory July 26, 2020 10:55am Destin Arthur MD Discharged Inpatient -[facility] August 09, 2020 6:05pm August 10, 2020 7:48pm Shekhar Louis MD Departed Physician/Provider Office Visit -[facility] August 16, 2020 9:35am August 16, 2020 11:40am Tono Guardado DO Departed Emergency -Emergency Room ER September 06, 2020 6:41am September 06, 2020 6:43pm null Recent Diagnosis Onset Date Atrial fibrillation Congestive [...] Response Lobo e Recorded Functional Status Modified [place] August 09, 2020 11:22pm Goals Goals may be documented in an alternate section. Immunizations Immunization Event Date Not Given Reason Dose Number Trading Analyst Lot Number Vaccine Information Statement (VIS) Deta il pneumococcal conjugate PCV 13 Mayobe r 2016 zoster (shingles) vaccine, live, sc November 03, 2016 pneumococcal polysaccharide PPV23 vaccine September 14, 2019 [id number] tetanus, diphtheria, acell pertussis 7yrs &up January 23, 2020 [id number] Mental Status Observation Response Lobo e Recorded Impairments Hearing/Auditory September 06, 2020 6:41am Ambulation/transfer Saman lopez 2020 6:41am Cognitive Status Normal Cognition August 09, 2020 11:22pm Medical Equipment No Medical Equipment Information available Insurance Providers Guarantor BRITTON GOMEZ Address [address] [place] [address] Contact Info. 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 warfarin schedule new dosage schedule is 2mg on Friday , friday, and the other four days will be 3mg repeat inr in about one week if condition worsens, then go to ER hydrocortisone prn f/u dermatolgist 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 hydrocortisone as ordered if worsens, then go to ER and patient denies new foods, new soaps, new detergents, denies pets 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 hydrocortisone prn itch hydrocortisone provides relief for [...] weeks stable continue current medical treatment 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 abdomen, possible insect bite he does not recall any metal he thinks it might be the garage he agrees to lyme test he denies fever, he denies bulls eye rash trial of hydrocortisone cream 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 if necessary to change to alternative calcitriol [...] Provider Provider Lilly ct Information Provider Address Tono Debby Email: [email or web address] Phone: [phone] [facility] [address] Tara Osborne Email: [email or web address] Work Phone: [address] [place] [address] Vlad Elizabeth MD Work Phone: [address] [address] M54.2 - Cervicalgia August 16, 2020 [facility] [address] [facility] [address] B07.9 - Viral wart, unspecified May 16, 2020 dermatology Future Procedures Future procedure information is unavailable Future Medications Future medication information is unavailable Patient Instructions Warfarin (By mouth) Chest Pain (DC) Social History Smoking Status Status Date of Observation Former smoker September 06, 2020 11: 01am Observation Status Observation Response Lobo e of Response Smoking Status Former smoker September 06, 2020 11:01am Alcohol Use No August 122020 11:01am Substance Use No September 06, 2020 11:01am Inhalant Use No August 14, 2020 1:44pm [...] 25, 2020 2:14pm Respiratory rate 24 /min 12-24 January 25, 2020 2:14pm Oxygen saturation by Pulse [...] Index) 29.2 kg/m2 August 10, 2020 4:52pm Height 67 [in_i] September 06, 2020 7:34am Weight 175.00 [lb_av] September 06, 2020 7:34am Body Temperature 97.3 [degF] 97.6-99.5 September 06, 2020 6:14pm Heart Rate 111 /min 60-1 00 September 06, 2020 6:14pm Respiratory rate 24 /min 12-24 September 06, 2020 6:14pm Oxygen saturation by Pulse oximetry 98 % 95- 100 September 06, 2020 6:14pm BP Systolic 114 mm[Hg] September 06, 2020 6:14pm BP Diastolic 64 mm[Hg] September 06, 2020 6:14pm
--- OUTSIDE RECORDS SUMMARY | 2020-10-06 18:53 | CCD ---
Author Author [facility] Organization [facility] Address Unknown Phone Unavailable Care Team Providers Care Assistive Technology Specialist Name Role Phone JO-ANN HUDDLESTON MD Unavailable [...] Unavailable Unavailable Herrera DO, Julian Unavailable Unavailable VanessaElijah shaw MD Unavailable Unavailable Elijah Mendez MD Unavailable Unavailable Elijah Mendez MD Unavailable Unavailable VanessaElijah shaw MD Unavailable Unavailable VanessaElijah shaw MD Unavailable Unavailable VanessaElijah shaw MD Unavailable Unavailable Elijah Mendez MD Unavailable [...] Unavailable Unavailable Yaquelin JEFFERSON MD Unavailable Unavailable Dylan, [place] WORKFORCE DEVELOPMENT VICE PRESIDENT Unavailable Unavailable Dylan, [place] WORKFORCE DEVELOPMENT VICE PRESIDENT Unavailable Unavailable Dylan, [place] WORKFORCE DEVELOPMENT VICE PRESIDENT Unavailable Unavailable Dylan, [place] WORKFORCE DEVELOPMENT VICE PRESIDENT Unavailable Unavailable Dylan, [place] WORKFORCE DEVELOPMENT VICE PRESIDENT Unavailable Unavailable Lillian Cid MD Unavailable Unavailable [...] Unavailable Unavailable Lillian Cid MD Unavailable Unavailable Lillina Cid MD Unavailable Unavailable Lillian Cid MD [...] Unavailable Lillian Cid MD Unavailable Unavailable KOPIDLANSKY, R ANJANA DRUG COUNSELOR-WORKFORCE DEVELOPMENT VICE PRESIDENT-C Unavailable Unava ilable KOPIDLANSKY, Ros OLVERA APRN-WORKFORCE DEVELOPMENT VICE PRESIDENT-C Unavailable Unava ilable KOPIDLANSKY, Ros OLVERA APRN-WORKFORCE DEVELOPMENT VICE PRESIDENT-C Unavailable Unava ilable KOPIDLANSKY, Ros OLVERA APRN-WORKFORCE DEVELOPMENT VICE PRESIDENT-C Unavailable Unava ilable KOPIDLANSKY, Ros OLVERA APRN-WORKFORCE DEVELOPMENT VICE PRESIDENT-C Unavailable Unava ilable KOPIDLANSKY, Ros OLVERA APRN-WORKFORCE DEVELOPMENT VICE PRESIDENT-C Unavailable Unava ilable KOPIDLANSKY, Ros OLVERA APRN-WORKFORCE DEVELOPMENT VICE PRESIDENT-C Unavailable Unava ilable KOPIDLANSKY, Ros OLVERA APRN-WORKFORCE DEVELOPMENT VICE PRESIDENT-C Unavailable Unava ilable KOPIDLANSKY, Ros OLVERA APRN-WORKFORCE DEVELOPMENT VICE PRESIDENT-C Unavailable Unava ilable KOPIDLANSKY, Ros OLVERA APRN-WORKFORCE DEVELOPMENT VICE PRESIDENT-C Unavailable Unava ilable KOPIDLANSKY, Ros OLVERA APRN-WORKFORCE DEVELOPMENT VICE PRESIDENT-C Unavailable Unava ilable KOPIDLANSKY, Ros OLVERA APRN-WORKFORCE DEVELOPMENT VICE PRESIDENT-C Unavailable Unava ilable KOPIDLANSKY, Ros OLVERA APRN-WORKFORCE DEVELOPMENT VICE PRESIDENT-C Unavailable Unava ilable KOPIDLANSKY, Ros OLVERA APRN-WORKFORCE DEVELOPMENT VICE PRESIDENT-C Unavailable Unava ilable KOPIDLANSKY, Ros OLVERA APRN-WORKFORCE DEVELOPMENT VICE PRESIDENT-C Unavailable Unava ilable KOPIDLANSKY, Ros OLVERA APRN-WORKFORCE DEVELOPMENT VICE PRESIDENT-C Unavailable Unava ilable KOPIDLANSKY, Ros OLVERA APRN-WORKFORCE DEVELOPMENT VICE PRESIDENT-C Unavailable Unava ilable KOPIDLANSKY, Ros OLVERA APRN-WORKFORCE DEVELOPMENT VICE PRESIDENT-C Unavailable Unava ilable KOPIDLANSKY, Ros OLVERA APRN-WORKFORCE DEVELOPMENT VICE PRESIDENT-C Unavailable Unava ilable KOPIDLANSKY, Ros OLVERA APRN-WORKFORCE DEVELOPMENT VICE PRESIDENT-C Unavailable Unava ilable KOPIDLANSKY, Ros OLVERA APRN-WORKFORCE DEVELOPMENT VICE PRESIDENT-C Unavailable Unava ilable KOPIDLANSKY, Ros OLVERA APRN-WORKFORCE DEVELOPMENT VICE PRESIDENT-C Unavailable Unava ilable KOPIDLANSKY, oRs OLVERA APRN-WORKFORCE DEVELOPMENT VICE PRESIDENT-C Unavailable Unava ilable ADRIÁN, Lillian PHILLIPS MD Unavailable Unavailable BLOCK, Lillian [...] Lillian PHILLIPS MD Unavailable Unavailable BLOCK, Lillian PHILLPIS MD Unavailable Unavailable BLOCK, Lillian PHILLIPS MD [...] Lillian PHILLIPS MD Unavailable Unavailable BLOCK, Lillian PIHLLIPS MD Unavailable Unavailable BLOCK, Lillian PHILLIPS MD [...] Unavailable BLOCK, Lillian PHILLIPS MD Unavailable Unavailable [place], B Shekhar SINGER Unavailable Unavailable [place], B Shekhar MD Unavailable Unavailable [place], B Shekhar MD Unavailable Unavailable [place], B Shekhar MD Unavailable Unavailable [place], B Shekhar MD Unavailable Unavailable [place], B Shekhar MD Unavailable Unavailable [place], B Shekhar MD Unavailable Unavailable [place], B Shekhar MD Unavailable Unavailable [place], B Shekhar MD Unavailable Unavailable [place], B Shekhar MD Unavailable Unavailable [place], B Shekhar MD Unavailable Unavailable [place], B Shekhar MD Unavailable Unavailable DENISE ALEGRIA MD Unavailable Unavailable DENISE ALEGRIA MD Unavailable Unavailable DENISE ALEGRIA MD Unavailable Unavailable DENISE ALEGRIA MD Unavailable Unavailable SUYAPA, DENISE SINGER Unavailable Unavailable SUYAPA, DENISE SINGER Unavailable Unavailable SUYAPA, DENISE SINGER Unavailable Unavailable SUYAPA, DENISE SINGER Unavailable Unavailable SUYAPA, DENISE SINGER Unavailable Unavailable SUYAPA, DENISE SINGER Unavailable Unavailable DENISE ALEGRIA MD Unavailable Unavailable DENISE ALEGRIA MD Unavailable Unavailable DiBella, Fred Gonzalez MD [...] Unavailable BLOCK, Lillian PHILLIPS MD Unavailable Unavailable Norma Kitchen MD ([place]) Unavailable Unavailable ALETHAAsha JORGE MD Unavailable Unavailable ALETHAAsha JORGE MD Unavailable Unavailable ALETHAAsha JORGE MD Unavailable Unavailable ALETHAAsha JORGE MD Unavailable Unavailable ALETHAAsha JORGE MD Unavailable Unavailable ALETHAAsha JORGE MD Unavailable Unavailable ALETHAAsha JORGE MD Unavailable Unavailable ALETHAAsha JORGE MD Unavailable Unavailable ALETHA, M JEFFERSONCHRIS SINGER Unavailable Unavailable ALETHA, M JEFFERSONCHRIS SINGER Unavailable Unavailable ALETHA, M JEFFERSONCHRIS SINGER Unavailable Unavailable ALETHA, M JEFFERSONCHRIS SINGER Unavailable Unavailable ALETHAAsha JORGE JEFFERSONCHRIS SINGER Unavailable Unavailable ALETHAAsha JORGE JEFFERSONCHRIS SINGER Unavailable Unavailable ALETHAAsha JORGE JEFFERSONCHRIS SINGER Unavailable Unavailable ALETHAAsha JORGE JEFFERSONCHRIS SINGER Unavailable Unavailable ALETHA, M JEFFERSONCHRIS SINGER Unavailable Unavailable ALETHA, M JEFFERSONCHRIS SINGER Unavailable Unavailable ALETHAAsha JORGE JEFFERSONCHRIS SINGER Unavailable Unavailable ALETHA, M JEFFERSONCHRIS SINGER Unavailable Unavailable Evan De Oliveira MD Unavailable Unavailable Dylon, H Tara BOILER TESTING TECHNICIAN Unavailable Unavailable Dylon, H Tara BOILER TESTING TECHNICIAN Unavailable Unavailable Dylon, H Tara BOILER TESTING TECHNICIAN Unavailable Unavailable Dylon, H Tara BOILER TESTING TECHNICIAN Unavailable Unavailable Dylon, H Tara BOILER TESTING TECHNICIAN Unavailable Unavailable Dylon, H Tara BOILER TESTING TECHNICIAN Unavailable Unavailable Dylon, H Tara BOILER TESTING TECHNICIAN Unavailable Unavailable Dylon, H Tara BOILER TESTING TECHNICIAN Unavailable Unavailable Dylon, H Tara BOILER TESTING TECHNICIAN Unavailable Unavailable Dylon, H Tara BOILER TESTING TECHNICIAN Unavailable Unavailable Dylon, H Tara BOILER TESTING TECHNICIAN Unavailable Unavailable Dylon, H Tara BOILER TESTING TECHNICIAN Unavailable Unavailable Dylon, H Tara BOILER TESTING TECHNICIAN Unavailable Unavailable Dylon, H Tara BOILER TESTING TECHNICIAN Unavailable Unavailable Dylon, H Tara BOILER TESTING TECHNICIAN Unavailable Unavailable Dylon, H Tara BOILER TESTING TECHNICIAN Unavailable Unavailable Dylon, H Tara BOILER TESTING TECHNICIAN Unavailable Unavailable Dylon, H Tara BOILER TESTING TECHNICIAN Unavailable Unavailable Dylon, H Tara BOILER TESTING TECHNICIAN Unavailable Unavailable Dylon, H Tara BOILER TESTING TECHNICIAN Unavailable Unavailable Dylon, H Tara BOILER TESTING TECHNICIAN Unavailable Unavailable Dylon, H Tara BOILER TESTING TECHNICIAN Unavailable Unavailable Dylon, H Tara BOILER TESTING TECHNICIAN Unavailable Unavailable Dylon, H Tara BOILER TESTING TECHNICIAN Unavailable Unavailable Dylon, H Tara BOILER TESTING TECHNICIAN Unavailable Unavailable Dylon, H Tara BOILER TESTING TECHNICIAN Unavailable Unavailable Dylon, H Tara BOILER TESTING TECHNICIAN Unavailable Unavailable Dylon, H Tara BOILER TESTING TECHNICIAN Unavailable Unavailable Dylon, H Tara BOILER TESTING TECHNICIAN Unavailable Unavailable Dylon, H Tara BOILER TESTING TECHNICIAN Unavailable Unavailable Dylon, H Tara BOILER TESTING TECHNICIAN Unavailable Unavailable Dylon, H Taar BOILER TESTING TECHNICIAN Unavailable Unavailable Dylon, H Tara BOILER TESTING TECHNICIAN Unavailable Unavailable Dylon, H Tara BOILER TESTING TECHNICIAN Unavailable Unavailable Dylon, H Tara BOILER TESTING TECHNICIAN Unavailable Unavailable Dylon, H Tara BOILER TESTING TECHNICIAN Unavailable Unavailable Dylon, H Tara BOILER TESTING TECHNICIAN Unavailable Unavailable Dylon, H Tara BOILER TESTING TECHNICIAN Unavailable Unavailable Dylon, H Tara BOILER TESTING TECHNICIAN Unavailable Unavailable Dylon, H Tara BOILER TESTING TECHNICIAN Unavailable Unavailable Dylon, H Tara BOILER TESTING TECHNICIAN Unavailable Unavailable Dylon, H Tara BOILER TESTING TECHNICIAN Unavailable Unavailable Dylon, H Tara BOILER TESTING TECHNICIAN Unavailable Unavailable Dylon, H Tara BOILER TESTING TECHNICIAN Unavailable Unavailable Dylon, H Tara BOILER TESTING TECHNICIAN Unavailable Unavailable Dylon, H Tara BOILER TESTING TECHNICIAN Unavailable Unavailable Dylon, H Tara BOILER TESTING TECHNICIAN Unavailable Unavailable Dylon, H Tara BOILER TESTING TECHNICIAN Unavailable Unavailable Dylon, H Tara BOILER TESTING TECHNICIAN Unavailable Unavailable Dylon, H Tara BOILER TESTING TECHNICIAN Unavailable Unavailable Dylon, H Tara BOILER TESTING TECHNICIAN Unavailable Unavailable Dylon, H Tara BOILER TESTING TECHNICIAN Unavailable Unavailable Dylon, H Tara BOILER TESTING TECHNICIAN Unavailable Unavailable Dylon, H Tara BOILER TESTING TECHNICIAN Unavailable Unavailable Dylon, H Tara BOILER TESTING TECHNICIAN Unavailable Unavailable Dylon, H Tara BOILER TESTING TECHNICIAN Unavailable Unavailable Dylon, H Tara BOILER TESTING TECHNICIAN Unavailable Unavailable Root, Bal Osorio MD Unavailable [...] Bal Osorio MD Unavailable Unavailable Root, Bal sOorio MD Unavailable Unavailable Root, Bal Osorio MD [...] Unavailable Root, Bal Osorio MD Unavailable Unavailable Betler, Carlos DO Unavailable Unavailable DEBBY, MAYURI MD Unavailable Unavailable DEBBY, MAYURI MD Unavailable Unavailable DEBBY, MAYURI MD Unavailable Unavailable DEBBY, MAYURI MD Unavailable Unavailable DEBBY, MAYURI MD Unavailable Unavailable DEBBY, MAYURI MD Unavailable Unavailable DEBBY, MAYURI MD Unavailable Unavailable DEBBY, MAYURI MD Unavailable Unavailable DEBBY, MAYURI MD Unavailable Unavailable DEBBY, MAYURI MD Unavailable Unavailable DEBBY, MAYURI MD Unavailable Unavailable DEBBY, MAYURI MD Unavailable Unavailable DEBBY, MAYURI MD Unavailable Unavailable DEBBY, MAYURI MD Unavailable Unavailable DEBBY, MAYURI MD Unavailable Unavailable DEBBY, MAYURI MD Unavailable Unavailable DEBBY, MAYURI MD Unavailable Unavailable DEBBY, MAYURI MD Unavailable Unavailable DEBBY, MAYURI MD Unavailable Unavailable DEBBY, MAYURI MD Unavailable Unavailable DEBBY, MAYURI MD Unavailable Unavailable DEBBY, MAYURI MD Unavailable Unavailable DEBBY, MAYURI MD Unavailable Unavailable DEBBY, MAYURI MD Unavailable Unavailable DEBBY, MAYURI MD Unavailable Unavailable DEBBY, MAYURI MD Unavailable Unavailable DEBBY, MAYURI MD Unavailable Unavailable DEBBY, MAYURI MD Unavailable Unavailable DEBBY, MAYURI MD Unavailable Unavailable DEBBY, MAYURI MD Unavailable Unavailable DEBBY, MAYURI MD Unavailable Unavailable DEBBY, MAYURI MD Unavailable Unavailable DEBBY, MAYURI MD Unavailable Unavailable DEBBY, MAYURI MD Unavailable Unavailable DEBBY, MAYURI MD Unavailable Unavailable DEBBY, MAYURI MD Unavailable Unavailable DEBBY, MAYURI MD Unavailable Unavailable DEBBY, MAYURI MD Unavailable Unavailable DEBBY, MAYURI MD Unavailable Unavailable DEBBY, MAYURI MD Unavailable Unavailable DEBBY, MAYURI MD Unavailable Unavailable DEBBY, MAYURI MD Unavailable Unavailable DEBBY, MAYURI MD Unavailable Unavailable DEBBY, MAYURI MD Unavailable Unavailable DEBBY, MAYURI MD Unavailable Unavailable DEBBY, MAYURI MD Unavailable Unavailable DEBYB, MAYURI MD Unavailable Unavailable DEBBY, MAYURI MD Unavailable Unavailable DEBBY, MAYURI MD Unavailable Unavailable DEBBY, MAYURI MD Unavailable Unavailable DEBBY, MAYURI MD Unavailable Unavailable DEBBY, MAYURI MD Unavailable Unavailable Re-disclosure Warning The [...] is protected by Article 27-F of the [facility] Public Health law. If you continue you may have access to information: Regarding HIV / AIDS; Provided by facilities licensed or operated by the [facility] Office of Mental Health; or Provided by the [facility] Office for People With Developmental Disabilities. If such information is present, then the following [facility] mandated warning applies: This information has been [...] law may result in a fine or longterm sentence or both. A general authorization for the release of medical or other information is NOT sufficient authorization for further disc losure. Allergies and Adverse Reactions Type Description Substance Reaction Status Data Source(s ) Drug allergy No Known Drug Allergies No Known Drug Allergies [facility] Family History Family Member Name Family Member Gender Family Member Status Date o f Status Description Data Source(s) Unknown Condition [facility] Unknown Condition [facility] Unknown Condition [facility] Unknown Condition [facility] Unknown Condition [facility] Unknown Condition [facility] Unknown Condition [facility] Unknown Condition [facility] Unknown Condition [facility] Unknown Condition [facility] Unknown Condition [facility] Unknown Condition [facility] Unknown Condition [facility] Unknown Condition [facility] Unknown Condition [facility] Unknown Condition [facility] Unknown Condition [facility] Encounters Encounter Providers Location Date Indications Data Source(s ) Preadmit Attender: DENISE ALEGRIA MD 09/18/2020 12:00 :00 AM EST CONSULT [facility] CONSULT Emergency Attender: Justice Mendez MDAttender: Norma Snyder 09/06/2020 06:41:00 AM EST - 09/06/2020 06:43:00 PM EST WEAKNESS [facility] WEAKNESS Patient discharged. Outpatient Attender: MAYURI GUARDADO MDReferrer: MAYURI GUARDADO MD 08/16/2020 09:35:00 AM EST [facility] Outpatient Attender: ALAN Em/ A.MKoko Uroleann esparza 08/14/2020 12:40:00 PM EST [facility] Inpatient Attender: Shekhar Louis MD Attender: Carlos Galvin MDAdmitter: Shekhar Louis MD 08/09/2020 06:05:00 PM EST - 08/10/2020 07:48:00 PM EST CHEST PAIN [facility] CHEST PAIN Patient discharged. Outpatient Attender: Vivien NICOLE Main Office 08/01/2020 09:15:00 AM EST [facility] ([facility]) Outpatient Attender: JO-ANN HUDDLESTON MD 07/26/2020 10:55:00 AM EST [facility] Outpatient Attender: MAYURI GUARDADO MDReferrer: MAYURI GUARDADO MD 07/11/2020 10:41:00 AM EST - 07/11/2020 11:45:00 AM EST [facility] Outpatient Attender: MAYURI GUARDADO MD 07/07/2020 09:25:00 AM ES T I48.91 [facility] I48.91 Outpatient Attender: MAYURI GUARDADO MD 06/30/2020 12:00:00 AM [facility] Office Visit Attender: KARINE JEFFERSON MD Main Office 06/26/2020 02:28:0 0 PM EST [facility] ([facility]) Outpatient Attender: MAYURI MARTINEZeferrer: MAYURI GUARDADO MD 06/23/2020 01:13:00 PM EST [facility]: MAYURI GUARDADO MD 06/23/2020 09:23:00 AM ES T I48.91 [facility] I48.91 Office Visit Attender: KARINE JEFFERSON MD Main Office 05/23/2020 03:11:0 0 PM EDT [facility] ([facility]) Outpatient Attender: Tara Osborne NP 05/23/2020 09:54:00 AM E DT I48.91 [facility] I48.91 Outpatient Attender: MAYURI MARTINEZeferrer: MAYURI GUARDADO MD 05/16/2020 09:27:00 AM EDT - 05/16/2020 11:03:00 AM EDT [facility] Outpatient Attender: Tara Osborne NP 05/12/2020 07:23:00 AM E DT I48.91 [facility] I48.91 Outpatient Attender: ALAN Em/ Erickson esparza 05/10/2020 02:00:00 PM EDT [facility] ([facility] Office Visit Attender: KARINE JEFFERSON MD Main Office 05/10/2020 08:11:0 0 AM EDT [facility] ([facility]) Office Visit Attender: KARINE JEFFERSON MD Main Office 03/31/2020 02:49:0 0 PM EDT [facility] ([facility]) Outpatient Attender: MAYURI GUARDADO MD 03/31/2020 12:00:00 AM ED T I48.91 [facility] I48.91 Outpatient Attender: MAYURI MARTINEZeferrer: MAYURI GUARDADO MD 03/17/2020 03:08:00 PM EDT - 03/17/2020 04:45:00 PM EDT [facility] Outpatient Attender: Tara Osborne NP 03/08/2020 10:25:00 AM E DT I48.91,W57.XXXA [facility] I48.91,W57.XXXA Outpatient Attender: MAYURI MARTINEZeferrer: MAYURI GUARDADO MD 03/08/2020 09:26:00 AM EDT - 03/08/2020 10:28:00 AM EDT [facility] Outpatient Attender: Tara Osborne NP 02/28/2020 07:28:00 AM E DT I48.91 [facility] I48.91 Office Visit Attender: KARINE JEFFERSON MD Main Office 02/21/2020 10:11:0 0 AM EDT [facility] ([facility]) Outpatient Attender: Tara Osborne NP 02/18/2020 12:00:00 AM E DT I48.91 [facility] I48.91 Outpatient Attender: ANJANA LUCIO DRUG COUNSELOR-WORKFORCE DEVELOPMENT VICE PRESIDENT-C 02/10/2020 10:02:00 AM EDT I48.91,Z95.2 [facility] I48.91,Z95.2 Outpatient Attender: ALAN Em/ Erickson Marcano gy 02/01/2020 01:20:00 PM EDT [facility] Outpatient Attender: Vivien NICOLE Main Office 01/31/2020 09:45:00 AM EDT [facility] ([facility]) Outpatient Attender: Carlos Vaughnerrer: Tara Beebe 01/25/2020 02:12:00 PM EDT - 01/25/2020 02:36:00 PM EDT [facility] Emergency Attender: Kyaw Khan NPAttender: Evan De Oliveira MDConsultant: Evan De Oliveira MD 01/23/2020 04:00:00 PM EDT - 01/23/2020 06:42:00 PM EDT FALL,EAR LAC [facility] FALL,EAR LAC Patient discharged. Outpatient Attender: ANJANA LUCIO DRUG COUNSELOR-WORKFORCE DEVELOPMENT VICE PRESIDENT-C 01/21/2020 07:00:00 AM EDT I48.91,J06.9,Z95.2 [facility] I48.91,J06.9,Z95.2 Outpatient Attender: Tara Osborne NP 01/14/2020 07:00:00 AM E DT I48.91 [facility] I48.91 Office Visit Attender: KARINE JEFFERSON MD Main Office 01/12/2020 11:51:0 0 AM EDT ROBIN ([facility]) Outpatient Attender: Tara Osborne NP 01/07/2020 09:18:00 AM E DT I48.91 [facility] I48.91 Outpatient Attender: Tara Osborne NP 01/06/2020 12:00:00 AM E DT I48.91 [facility] I48.91 Outpatient Attender: Tara Osborne NP 12/30/2019 09:27:00 AM E DT I48.91 [facility] I48.91 Outpatient Attender: Kaz Cid MD 12/27/2019 12:00:00 AM EDT I48.91 [facility] I48.91 Outpatient Attender: Tara Osborne NP 12/24/2019 09:00:00 AM E DT I48.91 [facility] I48.91 Outpatient Attender: Tara Osborne NP 12/23/2019 09:00:00 AM E DT I48.91 [facility] I48.91 Outpatient Attender: Tara Osborne NP 12/22/2019 08:45:00 AM E DT O48.91 [facility] O48.91 Outpatient Attender: Tara Osborne NP 12/15/2019 09:00:00 AM E DT O48.91 [facility] O48.91 Outpatient Attender: Tara Osborne NP 12/13/2019 08:00:00 AM E DT I48.91 [facility] I48.91 Emergency Attender: LORENA RAMOS MD 12/08 09:11:00 AM EDT - 12/09/2019 11:40:00 AM EDT [facility] Patient discharged. Outpatient Attender: Tara Workmanerrer: Kaz Cid MD 12/09/2019 08:25:00 AM EDT - 12/09/2019 09:08:00 AM EDT [facility] Outpatient Attender: Kaz Cid MD 12/06/2019 09:00:00 AM EDT I48.91 [facility] I48.91 Outpatient Attender: Kaz Cid MD 12/01/2019 09:00:00 AM EDT I48.91 [facility] I48.91 Outpatient Attender: Kaz Cid MD 11/26/2019 09:30:00 AM EDT I48.91 [facility] I48.91 Outpatient Attender: Kaz Cid MD 11/23/2019 07:05:00 AM EDT I48.91 [facility] I48.91 Outpatient Attender: ALAN SAPMSON MD 11/09/2019 06 :55:00 AM EDT E89.5,I48.91,C61 [facility] E89.5,I48.91,C61 Outpatient Attender: MAYURI GUARDADO MD 10/20/2019 10:54:00 AM ED T M54.2 [facility] M54.2 Outpatient Attender: MAYURI MARTINEZeferrer: Julian Herrera DO 10/20/2019 09:48:00 AM EDT - 10/20/2019 10:50:00 AM EDT [facility] Outpatient Attender: MAYURI GUARDADO MD 10/19/2019 07:00:00 AM ED T I48.91 [facility] I48.91 Outpatient Attender: Julian Herrera DO 10/12/2019 07:10:00 AM EST I48.91 [facility] I48.91 Outpatient Attender: Julian SMITHeferrer: Kaz Cid MD 09/14/2019 10:17:00 AM EST - 09/14/2019 11:39:00 AM EST [facility] Outpatient Attender: Julian Herrera DO 09/14/2019 07: 00:00 AM EST I48.91, I48.2 [facility] I48.91, I48.2 Outpatient Attender: Julian Herrera DO 09/02/2019 11:16:00 AM EST I48.91 [facility] I48.91 Outpatient Attender: Julian Herrera DO 08/31/2019 07:00:00 AM EST J06.9,I48.91 [facility] J06.9,I48.91 Outpatient Attender: Julian Herrera DO 08/13/2019 02:11:00 PM EST J06.9 [facility] J06.9 Outpatient Attender: Julian Wooder: Kaz Cid MD 08/13/2019 01:10:00 PM EST - 08/13/2019 02:08:00 PM EST [facility] Outpatient Attender: JEFFERSON POMPA MD [facility] 07:06:00 PM EST [facility] ([facility]) Outpatient Attender: Kaz Cid MD 08/09/2019 08:15:00 AM EST I48.91 [facility] I48.91 Outpatient Attender: Devon Gee MD 08/03/2019 09:54:00 AM EST Z79.01 [facility] Z79.01 Functional Status Immunizations Vaccine Date Status Description Data Source(s) INFLUENZA VIRUS VACCINE QUADRIVAL SPLIT 2020-21(65 YR UP)/PF 06/05/2020 12:00:00 AM EDT completed [facility] Tdap 01/23/2020 12:00:00 AM EDT completed tetan us, diphtheria, acell pertussis 7yrs &up [facility] Tdap 01/23/2020 12:00:00 AM EDT completed tetan us, diphtheria, acell pertussis 7yrs &up [facility] Tdap 01/23/2020 12:00:00 AM EDT completed tetan us, diphtheria, acell pertussis 7yrs &up [facility] Tdap 01/23/2020 12:00:00 AM EDT completed tetan us, diphtheria, acell pertussis 7yrs &up [facility] Tdap 01/23/2020 12:00:00 AM EDT completed tetan us, diphtheria, acell pertussis 7yrs &up [facility] Tdap 01/23/2020 12:00:00 AM EDT completed tetan us, diphtheria, acell pertussis 7yrs &up [facility] Tdap 01/23/2020 12:00:00 AM EDT completed tetan us, diphtheria, acell pertussis 7yrs &up [facility] Tdap 01/23/2020 12:00:00 AM EDT completed tetan us, diphtheria, acell pertussis 7yrs &up [facility] Tdap 01/23/2020 12:00:00 AM EDT completed tetan us, diphtheria, acell pertussis 7yrs &up [facility] Tdap 01/23/2020 12:00:00 AM EDT completed tetan us, diphtheria, acell pertussis 7yrs &up [facility] Tdap 01/23/2020 12:00:00 AM EDT completed tetan us, diphtheria, acell pertussis 7yrs &up [facility] pneumococcal polysaccharide PPV23 09/14/2019 12:00:00 AM EST com pleted pneumococcal polysaccharide PPV23 vaccine [facility] pneumococcal polysaccharide PPV23 09/14/2019 12:00:00 AM EST com pleted pneumococcal polysaccharide PPV23 vaccine [facility] [facility] pneumococcal polysaccharide PPV23 09/14/2019 12:00:00 AM EST com pleted pneumococcal polysaccharide PPV23 vaccine [facility] pneumococcal polysaccharide PPV23 09/14/2019 12:00:00 AM EST com pleted pneumococcal polysaccharide PPV23 vaccine [facility] pneumococcal polysaccharide PPV23 09/14/2019 12:00:00 AM EST com pleted pneumococcal polysaccharide PPV23 vaccine [facility] pneumococcal polysaccharide PPV23 09/14/2019 12:00:00 AM EST com pleted pneumococcal polysaccharide PPV23 vaccine [facility] pneumococcal polysaccharide PPV23 09/14/2019 12:00:00 AM EST com pleted pneumococcal polysaccharide PPV23 vaccine [facility] pneumococcal polysaccharide PPV23 09/14/2019 12:00:00 AM EST com pleted pneumococcal polysaccharide PPV23 vaccine [facility] pneumococcal polysaccharide PPV23 09/14/2019 12:00:00 AM EST com pleted pneumococcal polysaccharide PPV23 vaccine [facility] pneumococcal polysaccharide PPV23 09/14/2019 12:00:00 AM EST com pleted pneumococcal polysaccharide PPV23 vaccine [facility] pneumococcal polysaccharide PPV23 09/14/2019 12:00:00 AM EST com pleted pneumococcal polysaccharide PPV23 vaccine [facility] pneumococcal polysaccharide PPV23 09/14/2019 12:00:00 AM EST com pleted pneumococcal polysaccharide PPV23 vaccine [facility] pneumococcal polysaccharide PPV23 09/14/2019 12:00:00 AM EST com pleted pneumococcal polysaccharide PPV23 vaccine [facility] pneumococcal polysaccharide PPV23 09/14/2019 12:00:00 AM EST com pleted pneumococcal polysaccharide PPV23 vaccine [facility] Medications Medication Brand Name Start Date Product Form Dose Route Admi nistrative Instructions Pharmacy Instructions Status Indications Reaction Description Data Source(s) 600 mg 09/06/2020 12:00:00 AM EST tablet 180 TAKE ONE TABLET BY MOUTH TWICE A DAY TAKE ONE TABLET BY MOUTH TWICE A DAY SOLD: 09/15/2020 [facility] Gemfibrozil 600 MG Oral Tablet Gemfibrozil 09/05/2020 12:42:33 PM EST 600 MG completed [facility] Warfarin Sodium 2 MG Oral Tablet Warfarin 08/15/2020 09:15:43 AM EST 2 MG active [facility] Warfarin Sodium 2 MG Oral Tablet Warfarin 08/15/2020 09:15:43 AM EST 2 MG active [facility] Eligard 6 Months 45MG 08/14/2020 12:00:00 AM EST completed [facility] ([facility] Medication administered onsite 0.1 % 08/07/2020 12:00:00 [...] ORAL active [facility] ([facility] 0.375 ML Leuprolide Acetate 120 MG/ML Prefilled Syringe [Deepali sally] Eligard 07/31/2020 12:00:00 AM EST active [facility] ([facility] Epoetin Bharat 2000 UNT/ML Injectable Solution [Epogen] Epogen 07/31/2020 12:00:00 AM EST active [facility] ([facility]) 0.1 % 07/17/2020 12:00:00 AM EST cream [...] 07/11/2020 11:34:58 AM EST 2 INH active [facility] Albuterol Sulfate 07/11/2020 11:34:58 AM EST 2 INH active [facility] Albuterol Sulfate 07/11/2020 11:34:58 AM EST 2 INH active [facility] Albuterol Sulfate 07/11/2020 11:34:58 AM EST 2 INH active [facility] Albuterol Sulfate 07/11/2020 11:34:58 AM EST 2 INH active [facility] Permethrin 50 MG/ML Topical Cream Permethrin 07/11/2020 11:29:48 AM EST 1 APPLIC active [facility] Permethrin 50 MG/ML Topical Cream Permethrin 07/11/2020 11:29:48 AM EST 1 APPLIC active [facility] Permethrin 50 MG/ML Topical Cream Permethrin 07/11/2020 11:29:48 AM EST 1 APPLIC completed [facility] Permethrin 50 MG/ML Topical Cream Permethrin 07/11/2020 11:29:48 AM EST 1 APPLIC active [facility] Permethrin 50 MG/ML Topical Cream Permethrin 07/11/2020 11:29:48 AM EST 1 APPLIC active [facility] 5 % 07/11/2020 12:00:00 AM EST cream 60 APPLY 1 APPLICATION TOPICALLY, SECOND TREATMENT 14 DAYS AFTER FIRST TREATMENT IF LIVE LICE REMAIN APPLY 1 APPLICATION TOPICALLY, SECOND TREATMENT 14 DAYS AFTER FIRST TREATMENT IF LIVE LICE REMAIN SOLD: 07/11/2020 [facility] 90 mcg/actuation 06/15/2020 12:00:00 AM EST HFA aerosol inha ler 18 INHALE TWO PUFFS BY MOUTH FOUR TIMES A DAY NEEDED FOR SHORTNESS OF BREATH OR WHEEZING INHALE TWO PUFFS BY MOUTH FOUR TIMES A D AY NEEDED FOR SHORTNESS OF BREATH OR WHEEZING SOLD: 06/18/2020 [facility] Albuterol Sulfate 06/14/2020 05:41:29 PM EST 2 INH completed [facility] Albuterol Sulfate 06/14/2020 05:41:29 PM EST 2 INH completed [facility] Albuterol Sulfate 06/14/2020 05:41:29 PM EST 2 INH completed [facility] Albuterol Sulfate 06/14/2020 05:41:29 PM EST 2 INH completed [facility] Albuterol Sulfate 06/14/2020 05:41:29 PM EST 2 INH completed [facility] Albuterol Sulfate 06/14/2020 05:41:29 PM EST 2 INH active [facility] 0.25 mcg 05/26/2020 12:00:00 AM EDT [...] tablet 90 TAKE ONE TABLET BY MOUTH TAKE ONE TABLET BY MOUTH EVERY DAY SOLD: 09/15/2020 [facility] Rosuvastatin calcium 20 MG Oral Tablet ROSUVASTATIN CALCIUM 05/17/2020 12:00:00 AM EDT tablet 90 TAKE ONE TABLET BY MOUTH TAKE ONE TABLET BY MOUTH EVERY DAY SOLD: 06/09/2020 [facility] Hydrocortisone 10 MG/ML Topical Cream Hydrocortisone ( Anti-Itch (Hc)) 1 % cream Hydrocortisone (Anti-Itch (Hc)) 1 % cream 05/16/2020 10:42:29 AM EDT 1 APPLIC active [facility] Hydrocortisone 10 MG/ML Topical Cream Hydrocortisone ( Anti-Itch (Hc)) 1 % cream Hydrocortisone (Anti-Itch (Hc)) 1 % cream 05/16/2020 10:42:29 AM EDT 1 APPLIC active [facility] Hydrocortisone 10 MG/ML Topical Cream Hydrocortisone ( Anti-Itch (Hc)) 1 % cream Hydrocortisone (Anti-Itch (Hc)) 1 % cream 05/16/2020 10:42:29 AM EDT 1 APPLIC active [facility] Hydrocortisone 10 MG/ML Topical Cream Hydrocortisone ( Anti-Itch (Hc)) 1 % cream Hydrocortisone (Anti-Itch (Hc)) 1 % cream 05/16/2020 10:42:29 AM EDT 1 APPLIC active [facility] Hydrocortisone 10 MG/ML Topical Cream Hydrocortisone ( Anti-Itch (Hc)) 1 % cream Hydrocortisone (Anti-Itch (Hc)) 1 % cream 05/16/2020 10:42:29 AM EDT 1 APPLIC active [facility] Hydrocortisone 10 MG/ML Topical Cream Hydrocortisone ( Anti-Itch (Hc)) 1 % cream Hydrocortisone (Anti-Itch (Hc)) 1 % cream 05/16/2020 10:42:29 AM EDT 1 APPLIC active [facility] Hydrocortisone 10 MG/ML Topical Cream Hydrocortisone ( Anti-Itch (Hc)) 1 % cream Hydrocortisone (Anti-Itch (Hc)) 1 % cream 05/16/2020 10:42:29 AM EDT 1 APPLIC active [facility] Rosuvastatin calcium 20 MG Oral Tablet Rosuvastatin (C restor) 20 mg tablet Rosuvastatin (Crestor) 20 mg tablet 05/16/2020 10:13:35 AM EDT 20 MG active [facility] Rosuvastatin calcium 20 MG Oral Tablet Rosuvastatin (C restor) 20 mg tablet Rosuvastatin (Crestor) 20 mg tablet 05/16/2020 10:13:35 AM EDT 20 MG active [facility] Rosuvastatin calcium 20 MG Oral Tablet Rosuvastatin (C restor) 20 mg tablet Rosuvastatin (Crestor) 20 mg tablet 05/16/2020 10:13:35 AM EDT 20 MG completed [facility] Rosuvastatin calcium 20 MG Oral Tablet Rosuvastatin (C restor) 20 mg tablet Rosuvastatin (Crestor) 20 mg tablet 05/16/2020 10:13:35 AM EDT 20 MG active [facility] Rosuvastatin calcium 20 MG Oral Tablet Rosuvastatin (C restor) 20 mg tablet Rosuvastatin (Crestor) 20 mg tablet 05/16/2020 10:13:35 AM EDT 20 MG active [facility] Rosuvastatin calcium 20 MG Oral Tablet Rosuvastatin (C restor) 20 mg tablet Rosuvastatin (Crestor) 20 mg tablet 05/16/2020 10:13:35 AM EDT 20 MG active [facility] Rosuvastatin calcium 20 MG Oral Tablet Rosuvastatin (C restor) 20 mg tablet Rosuvastatin (Crestor) 20 mg tablet 05/16/2020 10:13:35 AM EDT 20 MG active [facility] Gemfibrozil 600 MG Oral Tablet Gemfibrozil 05/16/2020 10:13:30 AM EDT 600 MG active [facility] Gemfibrozil 600 MG Oral Tablet Gemfibrozil 05/16/2020 10:13:30 AM EDT 600 MG completed [facility] Gemfibrozil 600 MG Oral Tablet Gemfibrozil 05/16/2020 10:13:30 AM EDT 600 MG completed [facility] Gemfibrozil 600 MG Oral Tablet Gemfibrozil 05/16/2020 10:13:30 AM EDT 600 MG active [facility] Gemfibrozil 600 MG Oral Tablet Gemfibrozil 05/16/2020 10:13:30 AM EDT 600 MG active [facility] Gemfibrozil 600 MG Oral Tablet Gemfibrozil 05/16/2020 10:13:30 AM EDT 600 MG active [facility] Gemfibrozil 600 MG Oral Tablet Gemfibrozil 05/16/2020 10:13:30 AM EDT 600 MG active [facility] Folic Acid 1 MG Oral Tablet Folic Acid 03/14/2020 04:21:59 PM EDT 1 MG active [facility] Folic Acid 1 MG Oral Tablet Folic Acid 03/14/2020 04:21:59 PM EDT 1 MG [facility] Folic Acid 1 MG Oral Tablet Folic Acid 03/14/2020 04:21:59 PM EDT 1 MG [facility] Folic Acid 1 MG Oral Tablet Folic Acid 03/14/2020 04:21:59 PM EDT 1 MG [facility] Folic Acid 1 MG Oral Tablet Folic Acid 03/14/2020 04:21:59 PM EDT 1 MG [facility] Folic Acid 1 MG Oral Tablet Folic Acid 03/14/2020 04:21:59 PM EDT 1 MG [facility] Folic Acid 1 MG Oral Tablet Folic Acid 03/14/2020 04:21:59 PM EDT 1 MG [facility] Folic Acid 1 MG Oral Tablet Folic Acid 03/14/2020 04:21:59 PM EDT 1 MG [facility] 1 mg 03/14/2020 12:00:00 AM EDT tablet 90 TAKE ONE TABLET BY MOUTH EVERY DAY TAKE ONE TABLET BY MOUTH EVERY DAY SOLD: 03/15/2020 [facility] 0.4 mg 03/09/2020 12:00:00 AM EDT capsule 90 TAKE ONE CAPSULE BY MOUTH EVERY DAY AFTER DINNER TAKE ONE CAPSULE BY MOUTH EVERY DAY AFTER DINNER SOLD: 09/15/2020 [facility] 0.4 mg 03/09/2020 12:00:00 AM [...] Gluconate 03/08/2020 10:12:14 AM EDT 324 MG [facility] ferrous gluconate 324 MG Oral Tablet Ferrous Gluconate Nerissa Gluconate 03/08/2020 10:12:14 AM EDT 324 MG [facility] ferrous gluconate 324 MG Oral Tablet Ferrous Gluconate Nerissa us Gluconate 03/08/2020 10:12:14 AM EDT 324 MG [facility] ferrous gluconate 324 MG Oral Tablet Ferrous Gluconate Nerissa Gluconate 03/08/2020 10:12:14 AM EDT 324 MG [facility] ferrous gluconate 324 MG Oral Tablet Ferrous Gluconate Nerissa Gluconate 03/08/2020 10:12:14 AM EDT 324 MG [facility] ferrous gluconate 324 MG Oral Tablet Ferrous Gluconate Nerissa Gluconate 03/08/2020 10:12:14 AM EDT 324 MG [facility] ferrous gluconate 324 MG Oral Tablet Ferrous Gluconate Nerissa Gluconate 03/08/2020 10:12:14 AM EDT 324 MG [facility] ferrous gluconate 324 MG Oral Tablet Ferrous Gluconate Nerissa Gluconate 03/08/2020 10:12:14 AM EDT 324 MG [facility] ferrous gluconate 324 MG Oral Tablet Ferrous Gluconate Nerissa Gluconate 03/08/2020 10:12:14 AM EDT 324 MG [facility] Omeprazole 20 MG Delayed Release Oral Capsule Omeprazole 03/08/2020 10:12:02 AM EDT 20 MG active [facility] Omeprazole 20 MG Delayed Release Oral Capsule Omeprazole 03/08/2020 10:12:02 AM EDT 20 MG active [facility] Omeprazole 20 MG Delayed Release Oral Capsule Omeprazole 03/08/2020 10:12:02 AM EDT 20 MG active [facility] Omeprazole 20 MG Delayed Release Oral Capsule Omeprazole 03/08/2020 10:12:02 AM EDT 20 MG active [facility] Omeprazole 20 MG Delayed Release Oral Capsule Omeprazole 03/08/2020 10:12:02 AM EDT 20 MG active [facility] Omeprazole 20 MG Delayed Release Oral Capsule Omeprazole 03/08/2020 10:12:02 AM EDT 20 MG [facility] Omeprazole 20 MG Delayed Release Oral Capsule Omeprazole 03/08/2020 10:12:02 AM EDT 20 MG [facility] Omeprazole 20 MG Delayed Release Oral Capsule Omeprazole 03/08/2020 10:12:02 AM EDT 20 MG [facility] Omeprazole 20 MG Delayed Release Oral Capsule Omeprazole 03/08/2020 10:12:02 AM EDT 20 MG [facility] Allopurinol 100 MG Oral Tablet Allopurinol 03/08/2020 10:11:48 AM EDT 100 MG [facility] Allopurinol 100 MG Oral Tablet Allopurinol 03/08/2020 10:11:48 AM EDT 100 MG [facility] Allopurinol 100 MG Oral Tablet Allopurinol 03/08/2020 10:11:48 AM EDT 100 MG [facility] Allopurinol 100 MG Oral Tablet Allopurinol 03/08/2020 10:11:48 AM EDT 100 MG [facility] Allopurinol 100 MG Oral Tablet Allopurinol 03/08/2020 10:11:48 AM EDT 100 MG [facility] Allopurinol 100 MG Oral Tablet Allopurinol 03/08/2020 10:11:48 AM EDT 100 MG [facility] Allopurinol 100 MG Oral Tablet Allopurinol 03/08/2020 10:11:48 AM EDT 100 MG [facility] Allopurinol 100 MG Oral Tablet Allopurinol 03/08/2020 10:11:48 AM EDT 100 MG [facility] Allopurinol 100 MG Oral Tablet Allopurinol 03/08/2020 10:11:48 AM EDT 100 MG [facility] Lisinopril 5 MG Oral Tablet Lisinopril 03/08/2020 10:11:35 AM EDT 5 MG [facility] Lisinopril 5 MG Oral Tablet Lisinopril 03/08/2020 10:11:35 AM EDT 5 MG [facility] Lisinopril 5 MG Oral Tablet Lisinopril 03/08/2020 10:11:35 AM EDT 5 MG [facility] Lisinopril 5 MG Oral Tablet Lisinopril 03/08/2020 10:11:35 AM EDT 5 MG active [facility] Lisinopril 5 MG Oral Tablet Lisinopril 03/08/2020 10:11:35 AM EDT 5 MG active [facility] Lisinopril 5 MG Oral Tablet Lisinopril 03/08/2020 10:11:35 AM EDT 5 MG active [facility] Lisinopril 5 MG Oral Tablet Lisinopril 03/08/2020 10:11:35 AM EDT 5 MG active [facility] Lisinopril 5 MG Oral Tablet Lisinopril 03/08/2020 10:11:35 AM EDT 5 MG active [facility] Lisinopril 5 MG Oral Tablet Lisinopril 03/08/2020 10:11:35 AM EDT 5 MG active [facility] Folic Acid 1 MG Oral Tablet Folic Acid 03/08/2020 10:11:23 AM EDT 1 MG completed [facility] Folic Acid 1 MG Oral Tablet Folic Acid 03/08/2020 10:11:23 AM EDT 1 MG active [facility] Folic Acid 1 MG Oral Tablet Folic Acid 03/08/2020 10:11:23 AM EDT 1 MG completed [facility] Folic Acid 1 MG Oral Tablet Folic Acid 03/08/2020 10:11:23 AM EDT 1 MG completed [facility] Folic Acid 1 MG Oral Tablet Folic Acid 03/08/2020 10:11:23 AM EDT 1 MG completed [facility] Folic Acid 1 MG Oral Tablet Folic Acid 03/08/2020 10:11:23 AM EDT 1 MG completed [facility] Folic Acid 1 MG Oral Tablet Folic Acid 03/08/2020 10:11:23 AM EDT 1 MG completed [facility] Folic Acid 1 MG Oral Tablet Folic Acid 03/08/2020 10:11:23 AM EDT 1 MG completed [facility] Folic Acid 1 MG Oral Tablet Folic Acid 03/08/2020 10:11:23 AM EDT 1 MG completed [facility] Hydrocortisone 10 MG/ML Topical Cream Hydrocortisone ( Anti-Itch (Hc)) 1 % cream Hydrocortisone (Anti-Itch (Hc)) 1 % cream 03/08/2020 10:10:23 AM EDT 1 APPLIC active [facility] Hydrocortisone 10 MG/ML Topical Cream Hydrocortisone ( Anti-Itch (Hc)) 1 % cream Hydrocortisone (Anti-Itch (Hc)) 1 % cream 03/08/2020 10:10:23 AM EDT 1 APPLIC completed [facility] Hydrocortisone 10 MG/ML Topical Cream Hydrocortisone ( Anti-Itch (Hc)) 1 % cream Hydrocortisone (Anti-Itch (Hc)) 1 % cream 03/08/2020 10:10:23 AM EDT 1 APPLIC completed [facility] Hydrocortisone 10 MG/ML Topical Cream Hydrocortisone ( Anti-Itch (Hc)) 1 % cream Hydrocortisone (Anti-Itch (Hc)) 1 % cream 03/08/2020 10:10:23 AM EDT 1 APPLIC completed [facility] Hydrocortisone 10 MG/ML Topical Cream Hydrocortisone ( Anti-Itch (Hc)) 1 % cream Hydrocortisone (Anti-Itch (Hc)) 1 % cream 03/08/2020 10:10:23 AM EDT 1 APPLIC completed [facility] Hydrocortisone 10 MG/ML Topical Cream Hydrocortisone ( Anti-Itch (Hc)) 1 % cream Hydrocortisone (Anti-Itch (Hc)) 1 % cream 03/08/2020 10:10:23 AM EDT 1 APPLIC completed [facility] Hydrocortisone 10 MG/ML Topical Cream Hydrocortisone ( Anti-Itch (Hc)) 1 % cream Hydrocortisone (Anti-Itch (Hc)) 1 % cream 03/08/2020 10:10:23 AM EDT 1 APPLIC completed [facility] Hydrocortisone 10 MG/ML Topical Cream Hydrocortisone ( Anti-Itch (Hc)) 1 % cream Hydrocortisone (Anti-Itch (Hc)) 1 % cream 03/08/2020 10:10:23 AM EDT 1 APPLIC active [facility] Hydrocortisone 10 MG/ML Topical Cream Hydrocortisone ( Anti-Itch (Hc)) 1 % cream Hydrocortisone (Anti-Itch (Hc)) 1 % cream 03/08/2020 10:10:23 AM EDT 1 APPLIC completed [facility] 100 mg 03/08/2020 12:00:00 AM EDT tablet 90 TAKE ONE TABLET BY MOUTH EVERY DAY TAKE ONE TABLET BY MOUTH EVERY DAY SOLD: 06/09/2020 [facility] 20 mg 03/08/2020 12:00:00 AM EDT capsule,delayed release (DR/EC) 90 TAKE ONE CAPSULE BY MOUTH EVERY DAY TAKE ONE CAPSULE BY MOUTH EVERY DAY SOLD: 09/15/2020 [facility] 5 mg 03/08/2020 12:00:00 AM EDT tablet 90 TAKE ONE TABLET BY MOUTH EVERY DAY TAKE ONE TABLET BY MOUTH EVERY DAY SOLD: 03/10/2020 [facility] 5 mg 03/08/2020 12:00:00 AM EDT tablet 90 TAKE ONE TABLET BY MOUTH EVERY DAY TAKE ONE TABLET BY MOUTH EVERY DAY SOLD: 09/15/2020 [facility] 20 mg 03/08/2020 12:00:00 AM EDT capsule,delayed release (DR/EC) 90 TAKE ONE CAPSULE BY MOUTH EVERY DAY TAKE ONE CAPSULE BY MOUTH EVERY DAY SOLD: 03/10/2020 [facility] 100 mg 03/08/2020 12:00:00 AM EDT tablet 90 TAKE ONE TABLET BY MOUTH EVERY DAY TAKE ONE TABLET BY MOUTH EVERY DAY SOLD: 09/15/2020 [facility] 100 mg 03/08/2020 12:00:00 AM [...] ONE TABLET BY MOUTH EVERY DAY SOLD: 09/15/2020 [facility] 1 mg 03/08/2020 12:00:00 AM [...] 02/10/2020 11:25:09 AM EDT 2 MG active [facility] Warfarin Sodium 2 MG Oral Tablet Warfarin 02/10/2020 11:25:09 AM EDT 2 MG active [facility] Warfarin Sodium 2 MG Oral Tablet Warfarin 02/10/2020 11:25:09 AM EDT 2 MG active [facility] Warfarin Sodium 2 MG Oral Tablet Warfarin 02/10/2020 11:25:09 AM EDT 2 MG active [facility] Warfarin Sodium 2 MG Oral Tablet Warfarin 02/10/2020 11:25:09 AM EDT 2 MG [facility] Warfarin Sodium 2 MG Oral Tablet Warfarin 02/10/2020 11:25:09 AM EDT 2 MG active [facility] Warfarin Sodium 2 MG Oral Tablet Warfarin 02/10/2020 11:25:09 AM EDT 2 MG completed [facility] Warfarin Sodium 2 MG Oral Tablet Warfarin 02/10/2020 11:25:09 AM EDT 2 MG completed [facility] Warfarin Sodium 2 MG Oral Tablet Warfarin 02/10/2020 11:25:09 AM EDT 2 MG active [facility] Warfarin Sodium 3 MG Oral Tablet Warfarin 02/10/2020 11:23:56 AM EDT 3 MG active [facility] Warfarin Sodium 3 MG Oral Tablet Warfarin 02/10/2020 11:23:56 AM EDT 3 MG active [facility] Warfarin Sodium 3 MG Oral Tablet Warfarin 02/10/2020 11:23:56 AM EDT 3 MG active [facility] Warfarin Sodium 3 MG Oral Tablet Warfarin 02/10/2020 11:23:56 AM EDT 3 MG active [facility] Warfarin Sodium 3 MG Oral Tablet Warfarin 02/10/2020 11:23:56 AM EDT 3 MG active [facility] Warfarin Sodium 3 MG Oral Tablet Warfarin 02/10/2020 11:23:56 AM EDT 3 MG active [facility] Warfarin Sodium 3 MG Oral Tablet Warfarin 02/10/2020 11:23:56 AM EDT 3 MG active [facility] Warfarin Sodium 3 MG Oral Tablet Warfarin 02/10/2020 11:23:56 AM EDT 3 MG active [facility] Warfarin Sodium 3 MG Oral Tablet Warfarin 02/10/2020 11:23:56 AM EDT 3 MG active [facility] Eligard 6 Months 45MG 02/03/2020 12:00:00 AM EDT completed [facility] ([facility] Medication administered onsite Oxybutynin chloride 5 MG Oral Tablet OXYBUTYNIN CHLORIDE 12:00:00 AM EDT tablet 30 TAKE ONE TABLET BY MOUTH AT BEDTIME EVERY EVENING TAKE ONE TABLET BY MOUTH AT BEDTIME EVERY EVENING SOLD: 02/03/2020 [facility] Oxybutynin chloride 5 MG Oral Tablet Oxybutynin Chloride 12:00:00 AM EDT ORAL completed [facility] ([facility] 0.4 mg 01/31/2020 12:00:00 AM EDT tablet, sublingual [address]ACE ONE TABLET UNDER THE TONGUE EVERY 5 MINUTES FOR UP TO 3 DOSES NEEDED FOR CHEST PAIN. IF CHEST PAIN STILL PERSISTS CONTACT [address] ONE TABLET UNDER THE TONGUE EVERY 5 MINUTES FOR UP TO 3 DOSES NEEDED FOR CHEST PAIN. IF CHEST PAIN STILL PERSISTS CONTACT 911 SOLD: 02/03/2020 [facility] 40 mg 01/30/2020 12:00:00 AM EDT tablet 88 TAKE ONE TABLET BY MOUTH TWICE A DAY TAKE ONE TABLET BY MOUTH TWICE A DAY SOLD: 01/30/2020 [facility] 60 ACTUAT Albuterol 0.09 MG/ACTUAT Metered Dose Inhaler Albu terol Sulfate HFA 01/30/2020 12:00:00 AM EDT RESPIRATORY active [facility] ([facility]) 0.5 ML Leuprolide Acetate 60 MG/ML Prefilled Syringe [Eligar d] Eligard 01/30/2020 12:00:00 AM EDT active [facility] ([facility]) 40 mg 01/30/2020 12:00:00 AM EDT tablet [...] 01/24/2020 04:32:53 PM EDT 2 MG completed [facility] Warfarin Sodium 2 MG Oral Tablet Warfarin 01/24/2020 04:32:53 PM EDT 2 MG completed [facility] Warfarin Sodium 2 MG Oral Tablet Warfarin 01/24/2020 04:32:53 PM EDT 2 MG completed [facility] Warfarin Sodium 2 MG Oral Tablet Warfarin 01/24/2020 04:32:53 PM EDT 2 MG completed [facility] Warfarin Sodium 2 MG Oral Tablet Warfarin 01/24/2020 04:32:53 PM EDT 2 MG completed [facility] Warfarin Sodium 2 MG Oral Tablet Warfarin 01/24/2020 04:32:53 PM EDT 2 MG completed [facility] Warfarin Sodium 2 MG Oral Tablet Warfarin 01/24/2020 04:32:53 PM EDT 2 MG completed [facility] Warfarin Sodium 2 MG Oral Tablet Warfarin 01/24/2020 04:32:53 PM EDT 2 MG active [facility] Warfarin Sodium 2 MG Oral Tablet Warfarin 01/24/2020 04:32:53 PM EDT 2 MG completed [facility] Warfarin Sodium 2 MG Oral Tablet Warfarin 01/24/2020 04:32:53 PM EDT 2 MG completed [facility] 3 mg 12/26/2019 12:00:00 AM EDT tablet 30 TAKE ONE TABLET BY MOUTH EVERY DAY TAKE ONE TABLET BY MOUTH EVERY DAY SOLD: 01/03/2020 [facility] Warfarin Sodium 3 MG Oral Tablet Warfarin 12/24/2019 10:56:57 AM EDT 3 MG active [facility] Warfarin Sodium 3 MG Oral Tablet Warfarin 12/24/2019 10:56:57 AM EDT 3 MG active [facility] Warfarin Sodium 3 MG Oral Tablet Warfarin 12/24/2019 10:56:57 AM EDT 3 MG completed [facility] Warfarin Sodium 3 MG Oral Tablet Warfarin 12/24/2019 10:56:57 AM EDT 3 MG completed [facility] Warfarin Sodium 3 MG Oral Tablet Warfarin 12/24/2019 10:56:57 AM EDT 3 MG completed [facility] Warfarin Sodium 3 MG Oral Tablet Warfarin 12/24/2019 10:56:57 AM EDT 3 MG completed [facility] Warfarin Sodium 3 MG Oral Tablet Warfarin 12/24/2019 10:56:57 AM EDT 3 MG completed [facility] Warfarin Sodium 3 MG Oral Tablet Warfarin 12/24/2019 10:56:57 AM EDT 3 MG completed [facility] Warfarin Sodium 3 MG Oral Tablet Warfarin 12/24/2019 10:56:57 AM EDT 3 MG completed [facility] Warfarin Sodium 3 MG Oral Tablet Warfarin 12/24/2019 10:56:57 AM EDT 3 MG completed [facility] Warfarin Sodium 3 MG Oral Tablet Warfarin 12/24/2019 10:56:57 AM EDT 3 MG completed [facility] Furosemide 40 MG Oral Tablet Furosemide (Lasix) 40 mg tablet Furosemide (Lasix) 40 mg tablet 12/22/2019 10:23:15 AM EDT 40 MG [facility] Furosemide 40 MG Oral Tablet Furosemide (Lasix) 40 mg tablet Furosemide (Lasix) 40 mg tablet 12/22/2019 10:23:15 AM EDT 40 MG active [facility] Furosemide 40 MG Oral Tablet Furosemide (Lasix) 40 mg tablet Furosemide (Lasix) 40 mg tablet 12/22/2019 10:23:15 AM EDT 40 MG active [facility] Furosemide 40 MG Oral Tablet Furosemide (Lasix) 40 mg tablet Furosemide (Lasix) 40 mg tablet 12/22/2019 10:23:15 AM EDT 40 MG active [facility] Furosemide 40 MG Oral Tablet Furosemide (Lasix) 40 mg tablet Furosemide (Lasix) 40 mg tablet 12/22/2019 10:23:15 AM EDT 40 MG active [facility] Furosemide 40 MG Oral Tablet Furosemide (Lasix) 40 mg tablet Furosemide (Lasix) 40 mg tablet 12/22/2019 10:23:15 AM EDT 40 MG active [facility] Furosemide 40 MG Oral Tablet Furosemide 12/22/2019 10:23:15 AM EDT 40 MG active [facility] Furosemide 40 MG Oral Tablet Furosemide (Lasix) 40 mg tablet Furosemide (Lasix) 40 mg tablet 12/22/2019 10:23:15 AM EDT 40 MG active [facility] Furosemide 40 MG Oral Tablet Furosemide (Lasix) 40 mg tablet Furosemide (Lasix) 40 mg tablet 12/22/2019 10:23:15 AM EDT 40 MG active [facility] Furosemide 40 MG Oral Tablet Furosemide 12/22/2019 10:23:15 AM EDT 40 MG active [facility] Furosemide 40 MG Oral Tablet Furosemide (Lasix) 40 mg tablet Furosemide (Lasix) 40 mg tablet 12/22/2019 10:23:15 AM EDT 40 MG active [facility] Furosemide 40 MG Oral Tablet Furosemide (Lasix) 40 mg tablet Furosemide (Lasix) 40 mg tablet 12/20/2019 10:22:31 AM EDT 40 MG completed [facility] Furosemide 40 MG Oral Tablet Furosemide (Lasix) 40 mg tablet Furosemide (Lasix) 40 mg tablet 12/20/2019 10:22:31 AM EDT 40 MG completed [facility] Furosemide 40 MG Oral Tablet Furosemide (Lasix) 40 mg tablet Furosemide (Lasix) 40 mg tablet 12/20/2019 10:22:31 AM EDT 40 MG completed [facility] Furosemide 40 MG Oral Tablet Furosemide 12/20/2019 10:22:31 AM EDT 40 MG completed [facility] Furosemide 40 MG Oral Tablet Furosemide (Lasix) 40 mg tablet Furosemide (Lasix) 40 mg tablet 12/20/2019 10:22:31 AM EDT 40 MG completed [facility] Furosemide 40 MG Oral Tablet Furosemide (Lasix) 40 mg tablet Furosemide (Lasix) 40 mg tablet 12/20/2019 10:22:31 AM EDT 40 MG completed [facility] Furosemide 40 MG Oral Tablet Furosemide (Lasix) 40 mg tablet Furosemide (Lasix) 40 mg tablet 12/20/2019 10:22:31 AM EDT 40 MG completed [facility] Furosemide 40 MG Oral Tablet Furosemide (Lasix) 40 mg tablet Furosemide (Lasix) 40 mg tablet 12/20/2019 10:22:31 AM EDT 40 MG completed [facility] Furosemide 40 MG Oral Tablet Furosemide 12/20/2019 10:22:31 AM EDT 40 MG completed [facility] Furosemide 40 MG Oral Tablet Furosemide (Lasix) 40 mg tablet Furosemide (Lasix) 40 mg tablet 12/20/2019 10:22:31 AM EDT 40 MG completed [facility] Furosemide 40 MG Oral Tablet Furosemide (Lasix) 40 mg tablet Furosemide (Lasix) 40 mg tablet 12/20/2019 10:22:31 AM EDT 40 MG completed [facility] 40 mg 12/20/2019 12:00:00 AM EDT tablet 90 TAKE ONE TABLET BY MOUTH EVERY DAY TAKE ONE TABLET BY MOUTH EVERY DAY SOLD: 12/21/2019 [facility] Metoprolol Tartrate 25 MG Oral Tablet Metoprolol Tartrate 10:01:00 AM EDT 12.5 MG active [facility] Lisinopril 5 MG Oral Tablet Lisinopril 12/09/2019 10:01:00 AM EDT 5 MG completed [facility] Lisinopril 5 MG Oral Tablet Lisinopril 12/09/2019 10:01:00 AM EDT 5 MG active [facility] Metoprolol Tartrate 25 MG Oral Tablet Metoprolol Tartrate 10:01:00 AM EDT 12.5 MG active [facility] Lisinopril 5 MG Oral Tablet Lisinopril 12/09/2019 10:01:00 AM EDT 5 MG active [facility] Allopurinol 100 MG Oral Tablet Allopurinol 12/09/2019 10:01:00 AM EDT 100 MG completed [facility] ferrous gluconate 324 MG Oral Tablet Ferrous Gluconate Nerissa us Gluconate 12/09/2019 10:01:00 AM EDT 324 MG completed [facility] Allopurinol 100 MG Oral Tablet Allopurinol 12/09/2019 10:01:00 AM EDT 100 MG active [facility] Lisinopril 5 MG Oral Tablet Lisinopril 12/09/2019 10:01:00 AM EDT 5 MG completed [facility] ferrous gluconate 324 MG Oral Tablet Ferrous Gluconate Nerissa us Gluconate 12/09/2019 10:01:00 AM EDT 324 MG active [facility] ferrous gluconate 324 MG Oral Tablet Ferrous Gluconate Nerissa us Gluconate 12/09/2019 10:01:00 AM EDT 324 MG completed [facility] Allopurinol 100 MG Oral Tablet Allopurinol 12/09/2019 10:01:00 AM EDT 100 MG active [facility] Allopurinol 100 MG Oral Tablet Allopurinol 12/09/2019 10:01:00 AM EDT 100 MG completed [facility] Lisinopril 5 MG Oral Tablet Lisinopril 12/09/2019 10:01:00 AM EDT 5 MG completed [facility] ferrous gluconate 324 MG Oral Tablet Ferrous Gluconate Nerissa us Gluconate 12/09/2019 10:01:00 AM EDT 324 MG completed [facility] Metoprolol Tartrate 25 MG Oral Tablet Metoprolol Tartrate 10:01:00 AM EDT 12.5 MG active [facility] Lisinopril 5 MG Oral Tablet Lisinopril 12/09/2019 10:01:00 AM EDT 5 MG completed [facility] ferrous gluconate 324 MG Oral Tablet Ferrous Gluconate Nerissa us Gluconate 12/09/2019 10:01:00 AM EDT 324 MG active [facility] Metoprolol Tartrate 25 MG Oral Tablet Metoprolol Tartrate 10:01:00 AM EDT 12.5 MG active [facility] ferrous gluconate 324 MG Oral Tablet Ferrous Gluconate Nerissa us Gluconate 12/09/2019 10:01:00 AM EDT 324 MG completed [facility] Lisinopril 5 MG Oral Tablet Lisinopril 12/09/2019 10:01:00 AM EDT 5 MG completed [facility] Metoprolol Tartrate 25 MG Oral Tablet Metoprolol Tartrate 10:01:00 AM EDT 12.5 MG active [facility] Metoprolol Tartrate 25 MG Oral Tablet Metoprolol Tartrate 10:01:00 AM EDT 12.5 MG active [facility] Allopurinol 100 MG Oral Tablet Allopurinol 12/09/2019 10:01:00 AM EDT 100 MG completed [facility] Metoprolol Tartrate 25 MG Oral Tablet Metoprolol Tartrate 10:01:00 AM EDT 12.5 MG active [facility] Lisinopril 5 MG Oral Tablet Lisinopril 12/09/2019 10:01:00 AM EDT 5 MG completed [facility] ferrous gluconate 324 MG Oral Tablet Ferrous Gluconate Nerissa us Gluconate 12/09/2019 10:01:00 AM EDT 324 MG active [facility] Lisinopril 5 MG Oral Tablet Lisinopril 12/09/2019 10:01:00 AM EDT 5 MG active [facility] ferrous gluconate 324 MG Oral Tablet Ferrous Gluconate Nerissa us Gluconate 12/09/2019 10:01:00 AM EDT 324 MG completed [facility] Allopurinol 100 MG Oral Tablet Allopurinol 12/09/2019 10:01:00 AM EDT 100 MG completed [facility] Metoprolol Tartrate 25 MG Oral Tablet Metoprolol Tartrate 10:01:00 AM EDT 12.5 MG active [facility] Metoprolol Tartrate 25 MG Oral Tablet Metoprolol Tartrate 10:01:00 AM EDT 12.5 MG active [facility] ferrous gluconate 324 MG Oral Tablet Ferrous Gluconate Nerissa us Gluconate 12/09/2019 10:01:00 AM EDT 324 MG completed [facility] Metoprolol Tartrate 25 MG Oral Tablet Metoprolol Tartrate 10:01:00 AM EDT 12.5 MG active [facility] Lisinopril 5 MG Oral Tablet Lisinopril 12/09/2019 10:01:00 AM EDT 5 MG completed [facility] Metoprolol Tartrate 25 MG Oral Tablet Metoprolol Tartrate 10:01:00 AM EDT 12.5 MG active [facility] Allopurinol 100 MG Oral Tablet Allopurinol 12/09/2019 10:01:00 AM EDT 100 MG completed [facility] Metoprolol Tartrate 25 MG Oral Tablet Metoprolol Tartrate 10:01:00 AM EDT 12.5 MG active [facility] Allopurinol 100 MG Oral Tablet Allopurinol 12/09/2019 10:01:00 AM EDT 100 MG completed [facility] ferrous gluconate 324 MG Oral Tablet Ferrous Gluconate Nerissa us Gluconate 12/09/2019 10:01:00 AM EDT 324 MG completed [facility] Lisinopril 5 MG Oral Tablet Lisinopril 12/09/2019 10:01:00 AM EDT 5 MG completed [facility] Allopurinol 100 MG Oral Tablet Allopurinol 12/09/2019 10:01:00 AM EDT 100 MG completed [facility] Lisinopril 5 MG Oral Tablet Lisinopril 12/09/2019 10:01:00 AM EDT 5 MG completed [facility] ferrous gluconate 324 MG Oral Tablet Ferrous Gluconate Nerissa us Gluconate 12/09/2019 10:01:00 AM EDT 324 MG completed [facility] Allopurinol 100 MG Oral Tablet Allopurinol 12/09/2019 10:01:00 AM EDT 100 MG completed [facility] Allopurinol 100 MG Oral Tablet Allopurinol 12/09/2019 10:01:00 AM EDT 100 MG completed [facility] Allopurinol 100 MG Oral Tablet Allopurinol 12/09/2019 10:01:00 AM EDT 100 MG active [facility] ferrous gluconate 324 MG Oral Tablet Ferrous Gluconate Nerissa us Gluconate 12/09/2019 10:01:00 AM EDT 324 MG completed [facility] Warfarin Sodium 3 MG Oral Tablet Warfarin 12/09/2019 09:54:16 AM EDT 3 MG completed [facility] Warfarin Sodium 3 MG Oral Tablet Warfarin 12/09/2019 09:54:16 AM EDT 3 MG completed [facility] Warfarin Sodium 3 MG Oral Tablet Warfarin 12/09/2019 09:54:16 AM EDT 3 MG completed [facility] Warfarin Sodium 3 MG Oral Tablet Warfarin 12/09/2019 09:54:16 AM EDT 3 MG completed [facility] Warfarin Sodium 3 MG Oral Tablet Warfarin 12/09/2019 09:54:16 AM EDT 3 MG completed [facility] Warfarin Sodium 3 MG Oral Tablet Warfarin 12/09/2019 09:54:16 AM EDT 3 MG completed [facility] Warfarin Sodium 3 MG Oral Tablet Warfarin 12/09/2019 09:54:16 AM EDT 3 MG completed [facility] Warfarin Sodium 3 MG Oral Tablet Warfarin 12/09/2019 09:54:16 AM EDT 3 MG completed [facility] Warfarin Sodium 3 MG Oral Tablet Warfarin 12/09/2019 09:54:16 AM EDT 3 MG completed [facility] Warfarin Sodium 3 MG Oral Tablet Warfarin 12/09/2019 09:54:16 AM EDT 3 MG completed [facility] Warfarin Sodium 3 MG Oral Tablet Warfarin 12/09/2019 09:54:16 AM EDT 3 MG completed [facility] Warfarin Sodium 3 MG Oral Tablet Warfarin 12/09/2019 09:54:16 AM EDT 3 MG completed [facility] 0.25 ML Leuprolide Acetate 30 MG/ML Pref illed Syringe Leuprolide (Eligard) 7.5 mg (1 month) syringe Leuprolide (Eligard) 7.5 mg (1 month) syringe 12/09/19 08:33:00 AM EDT 7.5 MG active [facility] 0.25 ML Leuprolide Acetate 30 MG/ML Pref illed Syringe Leuprolide (Eligard) 7.5 mg (1 month) syringe Leuprolide (Eligard) 7.5 mg (1 month) syringe 12/09/19 08:33:00 AM EDT 7.5 MG active [facility] 0.25 ML Leuprolide Acetate 30 MG/ML Prefilled Syringe Leupro lide 12/09/2019 08:33:00 AM EDT 7.5 MG completed [facility] 0.25 ML Leuprolide Acetate 30 MG/ML Pref illed Syringe Leuprolide (Eligard) 7.5 mg (1 month) syringe Leuprolide (Eligard) 7.5 mg (1 month) syringe 12/09/19 08:33:00 AM EDT 7.5 MG active [facility] 0.25 ML Leuprolide Acetate 30 MG/ML Pref illed Syringe Leuprolide (Eligard) 7.5 mg (1 month) syringe Leuprolide (Eligard) 7.5 mg (1 month) syringe 12/09/19 08:33:00 AM EDT 7.5 MG active [facility] 0.25 ML Leuprolide Acetate 30 MG/ML Prefilled Syringe Leupro lide 12/09/2019 08:33:00 AM EDT 7.5 MG completed [facility] 0.25 ML Leuprolide Acetate 30 MG/ML Prefilled Syringe Leupro lide 12/09/2019 08:33:00 AM EDT 7.5 MG completed [facility] 0.25 ML Leuprolide Acetate 30 MG/ML Prefilled Syringe Leupro lide 12/09/2019 08:33:00 AM EDT 7.5 MG completed [facility] 0.25 ML Leuprolide Acetate 30 MG/ML Pref illed Syringe Leuprolide (Eligard) 7.5 mg (1 month) syringe Leuprolide (Eligard) 7.5 mg (1 month) syringe 12/09/19 08:33:00 AM EDT 7.5 MG active [facility] 0.25 ML Leuprolide Acetate 30 MG/ML Pref illed Syringe Leuprolide (Eligard) 7.5 mg (1 month) syringe Leuprolide (Eligard) 7.5 mg (1 month) syringe 12/09/19 08:33:00 AM EDT 7.5 MG active [facility] 0.25 ML Leuprolide Acetate 30 MG/ML Pref illed Syringe Leuprolide (Eligard) 7.5 mg (1 month) syringe Leuprolide (Eligard) 7.5 mg (1 month) syringe 12/09/19 08:33:00 AM EDT 7.5 MG active [facility] 0.25 ML Leuprolide Acetate 30 MG/ML Pref illed Syringe Leuprolide (Eligard) 7.5 mg (1 month) syringe Leuprolide (Eligard) 7.5 mg (1 month) syringe 12/09/19 08:33:00 AM EDT 7.5 MG active [facility] 0.25 ML Leuprolide Acetate 30 MG/ML Pref illed Syringe Leuprolide (Eligard) 7.5 mg (1 month) syringe Leuprolide (Eligard) 7.5 mg (1 month) syringe 04/30/20 20 08:33:00 AM EDT 7.5 MG active [facility] 25 mg 12/08/2019 12:00:00 AM EDT tablet 180 TAKE ONE TABLET BY MOUTH TWICE A DAY TAKE ONE TABLET BY MOUTH TWICE A DAY SOLD: 03/10/2020 [facility] 25 mg 12/08/2019 12:00:00 AM EDT tablet 180 TAKE ONE TABLET BY MOUTH TWICE A DAY TAKE ONE TABLET BY MOUTH TWICE A DAY SOLD: 12/15/2019 [facility] Metoprolol Tartrate 25 MG Oral Tablet Metoprolol Tartrate 12:57:43 PM EDT 25 MG completed [facility] Metoprolol Tartrate 25 MG Oral Tablet Metoprolol Tartrate 12:57:43 PM EDT 25 MG completed [facility] Metoprolol Tartrate 25 MG Oral Tablet Metoprolol Tartrate 12:57:43 PM EDT 25 MG completed [facility] Metoprolol Tartrate 25 MG Oral Tablet Metoprolol Tartrate 12:57:43 PM EDT 25 MG completed [facility] Metoprolol Tartrate 25 MG Oral Tablet Metoprolol Tartrate 12:57:43 PM EDT 25 MG completed [facility] Metoprolol Tartrate 25 MG Oral Tablet Metoprolol Tartrate 12:57:43 PM EDT 25 MG completed [facility] Metoprolol Tartrate 25 MG Oral Tablet Metoprolol Tartrate 12:57:43 PM EDT 25 MG completed [facility] Metoprolol Tartrate 25 MG Oral Tablet Metoprolol Tartrate 12:57:43 PM EDT 25 MG completed [facility] Metoprolol Tartrate 25 MG Oral Tablet Metoprolol Tartrate 12:57:43 PM EDT 25 MG completed [facility] Metoprolol Tartrate 25 MG Oral Tablet Metoprolol Tartrate 12:57:43 PM EDT 25 MG completed [facility] Metoprolol Tartrate 25 MG Oral Tablet Metoprolol Tartrate 12:57:43 PM EDT 25 MG completed [facility] Metoprolol Tartrate 25 MG Oral Tablet Metoprolol Tartrate 12:57:43 PM EDT 25 MG completed [facility] Metoprolol Tartrate 25 MG Oral Tablet Metoprolol Tartrate 12:57:43 PM EDT 25 MG active [facility] Metoprolol Tartrate 25 MG Oral Tablet Metoprolol Tartrate 12:54:06 PM EDT 25 MG completed [facility] Metoprolol Tartrate 25 MG Oral Tablet Metoprolol Tartrate 12:54:06 PM EDT 25 MG completed [facility] Metoprolol Tartrate 25 MG Oral Tablet Metoprolol Tartrate 12:54:06 PM EDT 25 MG completed [facility] Metoprolol Tartrate 25 MG Oral Tablet Metoprolol Tartrate 12:54:06 PM EDT 25 MG completed [facility] Metoprolol Tartrate 25 MG Oral Tablet Metoprolol Tartrate 12:54:06 PM EDT 25 MG completed [facility] Metoprolol Tartrate 25 MG Oral Tablet Metoprolol Tartrate 12:54:06 PM EDT 25 MG completed [facility] Metoprolol Tartrate 25 MG Oral Tablet Metoprolol Tartrate 12:54:06 PM EDT 25 MG completed [facility] Metoprolol Tartrate 25 MG Oral Tablet Metoprolol Tartrate 12:54:06 PM EDT 25 MG completed [facility] Metoprolol Tartrate 25 MG Oral Tablet Metoprolol Tartrate 12:54:06 PM EDT 25 MG completed [facility] Metoprolol Tartrate 25 MG Oral Tablet Metoprolol Tartrate 12:54:06 PM EDT 25 MG completed [facility] Metoprolol Tartrate 25 MG Oral Tablet Metoprolol Tartrate 12:54:06 PM EDT 25 MG completed [facility] Metoprolol Tartrate 25 MG Oral Tablet Metoprolol Tartrate 12:54:06 PM EDT 25 MG completed [facility] Metoprolol Tartrate 25 MG Oral Tablet Metoprolol Tartrate 12:54:06 PM EDT 25 MG completed [facility] rivaroxaban Rivaroxaban (Xarelto) 2.5 mg tablet Rivaro xaban (Xarelto) 2.5 mg tablet 12/06/2019 02:21:53 PM EDT 2.5 MG completed [facility] rivaroxaban Rivaroxaban Rivaroxaban 12/06/2019 02:21:53 PM EDT 2 .5 MG active [facility] rivaroxaban Rivaroxaban (Xarelto) 2.5 mg tablet Rivaro xaban (Xarelto) 2.5 mg tablet 12/06/2019 02:21:53 PM EDT 2.5 MG completed [facility] rivaroxaban Rivaroxaban (Xarelto) 2.5 mg tablet [facility] xaban (Xarelto) 2.5 mg tablet 12/06/2019 02:21:53 PM EDT 2.5 MG completed [facility] rivaroxaban Rivaroxaban (Xarelto) 2.5 mg tablet [facility] xaban (Xarelto) 2.5 mg tablet 12/06/2019 02:21:53 PM EDT 2.5 MG completed [facility] rivaroxaban Rivaroxaban Rivaroxaban 12/06/2019 02:21:53 PM EDT 2 .5 MG completed [facility] rivaroxaban Rivaroxaban (Xarelto) 2.5 mg tablet [facility] xaban (Xarelto) 2.5 mg tablet 12/06/2019 02:21:53 PM EDT 2.5 MG completed [facility] rivaroxaban Rivaroxaban Rivaroxaban 12/06/2019 02:21:53 PM EDT 2 .5 MG completed [facility] rivaroxaban Rivaroxaban (Xarelto) 2.5 mg tablet [facility] xaban (Xarelto) 2.5 mg tablet 12/06/2019 02:21:53 PM EDT 2.5 MG completed [facility] rivaroxaban Rivaroxaban (Xarelto) 2.5 mg tablet [facility] xaban (Xarelto) 2.5 mg tablet 12/06/2019 02:21:53 PM EDT 2.5 MG completed [facility] rivaroxaban Rivaroxaban (Xarelto) 2.5 mg tablet [facility] xaban (Xarelto) 2.5 mg tablet 12/06/2019 02:21:53 PM EDT 2.5 MG completed [facility] rivaroxaban Rivaroxaban Rivaroxaban 12/06/2019 02:21:53 PM EDT 2 .5 MG active [facility] rivaroxaban Rivaroxaban (Xarelto) 2.5 mg tablet [facility]aro xaban (Xarelto) 2.5 mg tablet 12/06/2019 02:21:53 PM EDT 2.5 MG completed [facility] Metoprolol Tartrate 25 MG Oral Tablet Metoprolol Tartrate 01:47:19 PM EDT 25 MG completed [facility] Metoprolol Tartrate 25 MG Oral Tablet Metoprolol Tartrate 01:47:19 PM EDT 25 MG completed [facility] Metoprolol Tartrate 25 MG Oral Tablet Metoprolol Tartrate 01:47:19 PM EDT 25 MG completed [facility] Metoprolol Tartrate 25 MG Oral Tablet Metoprolol Tartrate 01:47:19 PM EDT 25 MG completed [facility] Metoprolol Tartrate 25 MG Oral Tablet Metoprolol Tartrate 01:47:19 PM EDT 25 MG completed [facility] Metoprolol Tartrate 25 MG Oral Tablet Metoprolol Tartrate 01:47:19 PM EDT 25 MG completed [facility] Metoprolol Tartrate 25 MG Oral Tablet Metoprolol Tartrate 01:47:19 PM EDT 25 MG completed [facility] Metoprolol Tartrate 25 MG Oral Tablet Metoprolol Tartrate 01:47:19 PM EDT 25 MG completed [facility] Metoprolol Tartrate 25 MG Oral Tablet Metoprolol Tartrate 01:47:19 PM EDT 25 MG completed [facility] Metoprolol Tartrate 25 MG Oral Tablet Metoprolol Tartrate 01:47:19 PM EDT 25 MG completed [facility] Metoprolol Tartrate 25 MG Oral Tablet Metoprolol Tartrate 01:47:19 PM EDT 25 MG completed [facility] Metoprolol Tartrate 25 MG Oral Tablet Metoprolol Tartrate 01:47:19 PM EDT 25 MG completed [facility] Metoprolol Tartrate 25 MG Oral Tablet Metoprolol Tartrate 01:47:19 PM EDT 25 MG completed [facility] Warfarin Sodium 4 MG Oral Tablet Warfarin (Coumadin) 4 mg tablet Warfarin (Coumadin) 4 mg tablet 11/23/2019 10:21:38 AM EDT 4 MG completed [facility] Warfarin Sodium 4 MG Oral Tablet Warfarin (Coumadin) 4 mg tablet Warfarin (Coumadin) 4 mg tablet 11/23/2019 10:21:38 AM EDT 4 MG completed [facility] Warfarin Sodium 4 MG Oral Tablet Warfarin (Coumadin) 4 mg tablet Warfarin (Coumadin) 4 mg tablet 11/23/2019 10:21:38 AM EDT 4 MG completed [facility] Warfarin Sodium 4 MG Oral Tablet Warfarin (Coumadin) 4 mg tablet Warfarin (Coumadin) 4 mg tablet 11/23/2019 10:21:38 AM EDT 4 MG completed [facility] Warfarin Sodium 4 MG Oral Tablet Warfarin (Coumadin) 4 mg tablet Warfarin (Coumadin) 4 mg tablet 11/23/2019 10:21:38 AM EDT 4 MG completed [facility] Warfarin Sodium 4 MG Oral Tablet Warfarin (Coumadin) 4 mg tablet Warfarin (Coumadin) 4 mg tablet 11/23/2019 10:21:38 AM EDT 4 MG completed [facility] Warfarin Sodium 4 MG Oral Tablet Warfarin 11/23/2019 10:21:38 AM EDT 4 MG completed [facility] Warfarin Sodium 4 MG Oral Tablet Warfarin (Coumadin) 4 mg tablet Warfarin (Coumadin) 4 mg tablet 11/23/2019 10:21:38 AM EDT 4 MG completed [facility] Warfarin Sodium 4 MG Oral Tablet Warfarin 11/23/2019 10:21:38 AM EDT 4 MG completed [facility] Warfarin Sodium 4 MG Oral Tablet Warfarin (Coumadin) 4 mg tablet Warfarin (Coumadin) 4 mg tablet 11/23/2019 10:21:38 AM EDT 4 MG completed [facility] Warfarin Sodium 4 MG Oral Tablet Warfarin 11/23/2019 10:21:38 AM EDT 4 MG completed [facility] Warfarin Sodium 4 MG Oral Tablet Warfarin 11/23/2019 10:21:38 AM EDT 4 MG completed [facility] Warfarin Sodium 4 MG Oral Tablet Warfarin (Coumadin) 4 mg tablet Warfarin (Coumadin) 4 mg tablet 11/23/2019 10:21:38 AM EDT 4 MG completed [facility] 4 mg 11/23/2019 12:00:00 AM EDT tablet 30 TAKE ONE TABLET BY MOUTH EVERY DAY TAKE ONE TABLET BY MOUTH EVERY DAY SOLD: 11/24/2019 [facility] Gemfibrozil 600 MG Oral Tablet Gemfibrozil 09/14/2019 01:21:05 PM EST 600 MG completed [facility] Gemfibrozil 600 MG Oral Tablet Gemfibrozil 09/14/2019 01:21:05 PM EST 600 MG active [facility] Gemfibrozil 600 MG Oral Tablet Gemfibrozil 09/14/2019 01:21:05 PM EST 600 MG active [facility] Gemfibrozil 600 MG Oral Tablet Gemfibrozil 09/14/2019 01:21:05 PM EST 600 MG active [facility] Gemfibrozil 600 MG Oral Tablet Gemfibrozil 09/14/2019 01:21:05 PM EST 600 MG active [facility] Gemfibrozil 600 MG Oral Tablet Gemfibrozil 09/14/2019 01:21:05 PM EST 600 MG completed [facility] Gemfibrozil 600 MG Oral Tablet Gemfibrozil 09/14/2019 01:21:05 PM EST 600 MG completed [facility] Gemfibrozil 600 MG Oral Tablet Gemfibrozil 09/14/2019 01:21:05 PM EST 600 MG completed [facility] Gemfibrozil 600 MG Oral Tablet Gemfibrozil 09/14/2019 01:21:05 PM EST 600 MG completed [facility] Gemfibrozil 600 MG Oral Tablet Gemfibrozil 09/14/2019 01:21:05 PM EST 600 MG active [facility] Gemfibrozil 600 MG Oral Tablet Gemfibrozil 09/14/2019 01:21:05 PM EST 600 MG active [facility] Gemfibrozil 600 MG Oral Tablet Gemfibrozil 09/14/2019 01:21:05 PM EST 600 MG completed [facility] Gemfibrozil 600 MG Oral Tablet Gemfibrozil 09/14/2019 01:21:05 PM EST 600 MG completed [facility] Gemfibrozil 600 MG Oral Tablet Gemfibrozil 09/14/2019 01:21:05 PM EST 600 MG active [facility] 0.5 ML pneumococcal capsular polysacchar emma type 1 vaccine 0.05 MG/ML / pneumococcal capsular polysaccharide type 10A vaccine 0.05 MG/ML / pneumococcal capsular polysaccharide type 11A vaccine 0.05 MG/ML / pneumococcal capsular polysaccharide type 12F vac pneumococcal 23-janeth ps vaccine 25 mcg/0.5 mL injection syringe pneumococcal 23-janeth ps vaccine 25 mcg/0. 5 mL injection syringe 09/14/2019 10:17:48 AM EST 0.5 ML [facility] 0.5 ML pneumococcal capsular polysacchar emma type 1 vaccine 0.05 MG/ML / pneumococcal capsular polysaccharide type 10A vaccine 0.05 MG/ML / pneumococcal capsular polysaccharide type 11A vaccine 0.05 MG/ML / pneumococcal capsular polysaccharide type 12F vac pneumococcal 23-janeth ps vaccine 25 mcg/0.5 mL injection syringe pneumococcal 23-janeth ps vaccine 25 mcg/0. 5 mL injection syringe 09/14/2019 10:17:48 AM EST 0.5 ML [facility] 0.5 ML pneumococcal capsular polysacchar emma type 1 vaccine 0.05 MG/ML / pneumococcal capsular polysaccharide type 10A vaccine 0.05 MG/ML / pneumococcal capsular polysaccharide type 11A vaccine 0.05 MG/ML / pneumococcal capsular polysaccharide type 12F vac pneumococcal 23-janeth ps vaccine 25 mcg/0.5 mL injection syringe pneumococcal 23-janeth ps vaccine 25 mcg/0. 5 mL injection syringe 09/14/2019 10:17:48 AM EST 0.5 ML [facility] 0.5 ML pneumococcal capsular polysacchar emma type 1 vaccine 0.05 MG/ML / pneumococcal capsular polysaccharide type 10A vaccine 0.05 MG/ML / pneumococcal capsular polysaccharide type 11A vaccine 0.05 MG/ML / pneumococcal capsular polysaccharide type 12F vac pneumococcal 23-janeth ps vaccine 25 mcg/0.5 mL injection syringe pneumococcal 23-janeth ps vaccine 25 mcg/0. 5 mL injection syringe 09/14/2019 10:17:48 AM EST 0.5 ML [facility] 0.5 ML pneumococcal capsular polysacchar emma type 1 vaccine 0.05 MG/ML / pneumococcal capsular polysaccharide type 10A vaccine 0.05 MG/ML / pneumococcal capsular polysaccharide type 11A vaccine 0.05 MG/ML / pneumococcal capsular polysaccharide type 12F vac pneumococcal 23-janeth ps vaccine 25 mcg/0.5 mL injection syringe pneumococcal 23-janeth ps vaccine 25 mcg/0. 5 mL injection syringe 09/14/2019 10:17:48 AM EST 0.5 ML [facility] 0.5 ML pneumococcal capsular polysacchar emma type 1 vaccine 0.05 MG/ML / pneumococcal capsular polysaccharide type 10A vaccine 0.05 MG/ML / pneumococcal capsular polysaccharide type 11A vaccine 0.05 MG/ML / pneumococcal capsular polysaccharide type 12F vac pneumococcal 23-janeth ps vaccine 25 mcg/0.5 mL injection syringe pneumococcal 23-janeth ps vaccine 25 mcg/0. 5 mL injection syringe 09/14/2019 10:17:48 AM EST 0.5 ML [facility] 0.5 ML pneumococcal capsular polysacchar emma type 1 vaccine 0.05 MG/ML / pneumococcal capsular polysaccharide type 10A vaccine 0.05 MG/ML / pneumococcal capsular polysaccharide type 11A vaccine 0.05 MG/ML / pneumococcal capsular polysaccharide type 12F vac pneumococcal 23-janeth ps vaccine 25 mcg/0.5 mL injection syringe pneumococcal 23-janeth ps vaccine 25 mcg/0. 5 mL injection syringe 09/14/2019 10:17:48 AM EST 0.5 ML [facility] 0.5 ML pneumococcal capsular polysacchar emma type 1 vaccine 0.05 MG/ML / pneumococcal capsular polysaccharide type 10A vaccine 0.05 MG/ML / pneumococcal capsular polysaccharide type 11A vaccine 0.05 MG/ML / pneumococcal capsular polysaccharide type 12F vac pneumococcal 23-janeth ps vaccine 25 mcg/0.5 mL injection syringe pneumococcal 23-janeth ps vaccine 25 mcg/0. 5 mL injection syringe 09/14/2019 10:17:48 AM EST 0.5 ML [facility] 0.5 ML pneumococcal capsular polysacchar emma type 1 vaccine 0.05 MG/ML / pneumococcal capsular polysaccharide type 10A vaccine 0.05 MG/ML / pneumococcal capsular polysaccharide type 11A vaccine 0.05 MG/ML / pneumococcal capsular polysaccharide type 12F vac pneumococcal 23-janeth ps vaccine 25 mcg/0.5 mL injection syringe pneumococcal 23-janeth ps vaccine 25 mcg/0. 5 mL injection syringe 09/14/2019 10:17:48 AM EST 0.5 ML [facility] 0.5 ML pneumococcal capsular polysacchar emma type 1 vaccine 0.05 MG/ML / pneumococcal capsular polysaccharide type 10A vaccine 0.05 MG/ML / pneumococcal capsular polysaccharide type 11A vaccine 0.05 MG/ML / pneumococcal capsular polysaccharide type 12F vac pneumococcal 23-janeth ps vaccine 25 mcg/0.5 mL injection syringe pneumococcal 23-janeth ps vaccine 25 mcg/0. 5 mL injection syringe 09/14/2019 10:17:48 AM EST 0.5 ML [facility] 0.5 ML pneumococcal capsular polysacchar emma type 1 vaccine 0.05 MG/ML / pneumococcal capsular polysaccharide type 10A vaccine 0.05 MG/ML / pneumococcal capsular polysaccharide type 11A vaccine 0.05 MG/ML / pneumococcal capsular polysaccharide type 12F vac pneumococcal 23-janeth ps vaccine 25 mcg/0.5 mL injection syringe pneumococcal 23-janeth ps vaccine 25 mcg/0. 5 mL injection syringe 09/14/2019 10:17:48 AM EST 0.5 ML [facility] 0.5 ML pneumococcal capsular polysacchar emma type 1 vaccine 0.05 MG/ML / pneumococcal capsular polysaccharide type 10A vaccine 0.05 MG/ML / pneumococcal capsular polysaccharide type 11A vaccine 0.05 MG/ML / pneumococcal capsular polysaccharide type 12F vac pneumococcal 23-janeth ps vaccine 25 mcg/0.5 mL injection syringe pneumococcal 23-janeth ps vaccine 25 mcg/0. 5 mL injection syringe 09/14/2019 10:17:48 AM EST 0.5 ML [facility] 0.5 ML pneumococcal capsular polysacchar emma type 1 vaccine 0.05 MG/ML / pneumococcal capsular polysaccharide type 10A vaccine 0.05 MG/ML / pneumococcal capsular polysaccharide type 11A vaccine 0.05 MG/ML / pneumococcal capsular polysaccharide type 12F vac pneumococcal 23-janeth ps vaccine 25 mcg/0.5 mL injection syringe pneumococcal 23-janeth ps vaccine 25 mcg/0. 5 mL injection syringe 09/14/2019 10:17:48 AM EST 0.5 ML [facility] 0.5 ML pneumococcal capsular polysacchar [...] 09/14/2019 10:17:48 AM EST 0.5 ML completed [facility] 5 mg 09/10/2019 12:00:00 AM EST [...] TABLET BY MOUTH EVERY DAY SOLD: 06/09/2020 [facility] Finasteride 5 MG Oral Tablet FINASTERIDE 09/10/2019 12:00:00 AM EST ta blet 90 TAKE ONE TABLET BY MOUTH EVERY DAY TAKE ONE TABLET BY MOUTH EVERY DAY SOLD: 09/15/2020 [facility] 600 mg 09/10/2019 12:00:00 AM EST tablet 180 TAKE ONE TABLET BY MOUTH TWICE A DAY TAKE ONE TABLET BY MOUTH TWICE A DAY SOLD: 12/15/2019 [facility] 0.4 mg 09/10/2019 12:00:00 AM EST capsule 90 TAKE ONE CAPSULE BY MOUTH EVERY DAY AFTER DINER TAKE ONE CAPSULE BY MOUTH EVERY DAY AFTER DINER SOLD: 12/15/2019 [facility] Calcitriol 0.53475 MG Oral Capsule 0.25 mcg CALCITRIOL 08/26/2019 12:00:00 AM EST capsule 90 TAKE ONE CAPSULE BY MOUTH EV ROBERTH DAY TAKE ONE CAPSULE BY MOUTH EVERY DAY SOLD: 08/30/2019 [facility] Calcitriol 0.01319 MG Oral Capsule 0.25 mcg CALCITRIOL 08/26/2019 12:00:00 AM EST capsule 90 TAKE ONE CAPSULE BY MOUTH EV ROBERTH DAY TAKE ONE CAPSULE BY MOUTH EVERY DAY SOLD: 11/24/2019 [facility] Calcitriol 0.67106 MG Oral Capsule 0.25 mcg CALCITRIOL 08/26/2019 12:00:00 AM EST capsule 90 TAKE ONE CAPSULE BY MOUTH EV ROBERTH DAY TAKE ONE CAPSULE BY MOUTH EVERY DAY SOLD: 02/23/2020 [facility] Calcitriol 0.71777 MG Oral Capsule Calcitriol 08/13/2019 01:23:36 PM EST 0.25 MCG active [facility] Calcitriol 0.45537 MG Oral Capsule Calcitriol 08/13/2019 01:23:36 PM EST 0.25 MCG active [facility] Calcitriol 0.60844 MG Oral Capsule Calcitriol 08/13/2019 01:23:36 PM EST 0.25 MCG active [facility] Calcitriol 0.98082 MG Oral Capsule Calcitriol 08/13/2019 01:23:36 PM EST 0.25 MCG active [facility] Calcitriol 0.69506 MG Oral Capsule Calcitriol 08/13/2019 01:23:36 PM EST 0.25 MCG completed [facility] Calcitriol 0.59511 MG Oral Capsule Calcitriol 08/13/2019 01:23:36 PM EST 0.25 MCG completed [facility] Calcitriol 0.76800 MG Oral Capsule Calcitriol 08/13/2019 01:23:36 PM EST 0.25 MCG completed [facility] Calcitriol 0.49313 MG Oral Capsule Calcitriol 08/13/2019 01:23:36 PM EST 0.25 MCG active [facility] Calcitriol 0.49333 MG Oral Capsule Calcitriol 08/13/2019 01:23:36 PM EST 0.25 MCG active [facility] Calcitriol 0.23139 MG Oral Capsule Calcitriol 08/13/2019 01:23:36 PM EST 0.25 MCG completed [facility] Calcitriol 0.23538 MG Oral Capsule Calcitriol 08/13/2019 01:23:36 PM EST 0.25 MCG active [facility] Calcitriol 0.58313 MG Oral Capsule Calcitriol 08/13/2019 01:23:36 PM EST 0.25 MCG completed [facility] Calcitriol 0.64289 MG Oral Capsule Calcitriol 08/13/2019 01:23:36 PM EST 0.25 MCG active [facility] Calcitriol 0.00117 MG Oral Capsule Calcitriol 08/13/2019 01:23:36 PM EST 0.25 MCG completed [facility] Calcitriol 0.89502 MG Oral Capsule Calcitriol 08/13/2019 01:23:36 PM EST 0.25 MCG active [facility] Albuterol Sulfate 07/19/2019 10:41:26 AM EST 2 PUFFS completed [facility] Albuterol Sulfate 07/19/2019 10:41:26 AM EST 2 PUFFS completed [facility] Albuterol Sulfate 07/19/2019 10:41:26 AM EST 2 PUFFS completed [facility] Albuterol Sulfate 07/19/2019 10:41:26 AM EST 2 PUFFS completed [facility] Albuterol Sulfate 07/19/2019 10:41:26 AM EST 2 PUFFS completed [facility] Albuterol Sulfate 07/19/2019 10:41:26 AM EST 2 PUFFS completed [facility] Gemfibrozil 600 MG Oral Tablet Gemfibrozil 07/19/2019 10:18:49 AM EST 600 MG completed [facility] Gemfibrozil 600 MG Oral Tablet Gemfibrozil 07/19/2019 10:18:49 AM EST 600 MG completed [facility] Gemfibrozil 600 MG Oral Tablet Gemfibrozil 07/19/2019 10:18:49 AM EST 600 MG completed [facility] Gemfibrozil 600 MG Oral Tablet Gemfibrozil 07/19/2019 10:18:49 AM EST 600 MG completed [facility] Gemfibrozil 600 MG Oral Tablet Gemfibrozil 07/19/2019 10:18:49 AM EST 600 MG completed [facility] Gemfibrozil 600 MG Oral Tablet Gemfibrozil 07/19/2019 10:18:49 AM EST 600 MG completed [facility] Gemfibrozil 600 MG Oral Tablet Gemfibrozil 07/19/2019 10:18:49 AM EST 600 MG completed [facility] Gemfibrozil 600 MG Oral Tablet Gemfibrozil 07/19/2019 10:18:49 AM EST 600 MG completed [facility] Gemfibrozil 600 MG Oral Tablet Gemfibrozil 07/19/2019 10:18:49 AM EST 600 MG completed [facility] Gemfibrozil 600 MG Oral Tablet Gemfibrozil 07/19/2019 10:18:49 AM EST 600 MG completed [facility] Gemfibrozil 600 MG Oral Tablet Gemfibrozil 07/19/2019 10:18:49 AM EST 600 MG completed [facility] Gemfibrozil 600 MG Oral Tablet Gemfibrozil 07/19/2019 10:18:49 AM EST 600 MG completed [facility] Gemfibrozil 600 MG Oral Tablet Gemfibrozil 07/19/2019 10:18:49 AM EST 600 MG completed [facility] Gemfibrozil 600 MG Oral Tablet Gemfibrozil 07/19/2019 10:18:49 AM EST 600 MG completed [facility] 90 mcg/actuation 07/19/2019 12:00:00 AM EST HFA [...] OR WHEEZING SOLD: 11/17/2019 [facility] 40 mg 06/16/2019 12:00:00 [...] 04/20/2019 11:12:27 AM EDT 20 MG completed [facility] Omeprazole 20 MG Delayed Release Oral Capsule Omeprazole 04/20/2019 11:12:27 AM EDT 20 MG completed [facility] Omeprazole 20 MG Delayed Release Oral Capsule Omeprazole 04/20/2019 11:12:27 AM EDT 20 MG completed [facility] Omeprazole 20 MG Delayed Release Oral Capsule Omeprazole 04/20/2019 11:12:27 AM EDT 20 MG completed [facility] Omeprazole 20 MG Delayed Release Oral Capsule Omeprazole 04/20/2019 11:12:27 AM EDT 20 MG completed [facility] Omeprazole 20 MG Delayed Release Oral Capsule Omeprazole 04/20/2019 11:12:27 AM EDT 20 MG completed [facility] Omeprazole 20 MG Delayed Release Oral Capsule Omeprazole 04/20/2019 11:12:27 AM EDT 20 MG completed [facility] Omeprazole 20 MG Delayed Release Oral Capsule Omeprazole 04/20/2019 11:12:27 AM EDT 20 MG completed [facility] Omeprazole 20 MG Delayed Release Oral Capsule Omeprazole 04/20/2019 11:12:27 AM EDT 20 MG completed [facility] Warfarin Sodium 3 MG Oral Tablet Warfarin 04/20/2019 10:44:19 AM EDT 3 MG completed [facility] Warfarin Sodium 3 MG Oral Tablet Warfarin 04/20/2019 10:44:19 AM EDT 3 MG completed [facility] Warfarin Sodium 3 MG Oral Tablet Warfarin 04/20/2019 10:44:19 AM EDT 3 MG completed [facility] Warfarin Sodium 3 MG Oral Tablet Warfarin 04/20/2019 10:44:19 AM EDT 3 MG completed [facility] Warfarin Sodium 3 MG Oral Tablet Warfarin 04/20/2019 10:44:19 AM EDT 3 MG completed [facility] Warfarin Sodium 3 MG Oral Tablet Warfarin 04/20/2019 10:44:19 AM EDT 3 MG completed [facility] Warfarin Sodium 3 MG Oral Tablet Warfarin 04/20/2019 10:44:19 AM EDT 3 MG [facility] Warfarin Sodium 3 MG Oral Tablet Warfarin 04/20/2019 10:44:19 AM EDT 3 MG [facility] Warfarin Sodium 3 MG Oral Tablet Warfarin 04/20/2019 10:44:19 AM EDT 3 MG [facility] Warfarin Sodium 3 MG Oral Tablet Warfarin 04/20/2019 10:44:19 AM EDT 3 MG completed [facility] Warfarin Sodium 3 MG Oral Tablet Warfarin 04/20/2019 10:44:19 AM EDT 3 MG completed [facility] Warfarin Sodium 3 MG Oral Tablet Warfarin 04/20/2019 10:44:19 AM EDT 3 MG completed [facility] Warfarin Sodium 3 MG Oral Tablet Warfarin 04/20/2019 10:44:19 AM EDT 3 MG [facility] Rosuvastatin calcium 20 MG Oral Tablet Rosuvastatin (C restor) 20 mg tablet Rosuvastatin (Crestor) 20 mg tablet 04/20/2019 10:43:40 AM EDT [address] [facility] Rosuvastatin calcium 20 MG Oral Tablet Rosuvastatin (C restor) 20 mg tablet Rosuvastatin (Crestor) 20 mg tablet 04/20/2019 10:43:40 AM EDT 20 MG completed [facility] Rosuvastatin calcium 20 MG Oral Tablet Rosuvastatin (C restor) 20 mg tablet Rosuvastatin (Crestor) 20 mg tablet 04/20/2019 10:43:40 AM EDT 20 MG completed [facility] Rosuvastatin calcium 20 MG Oral Tablet Rosuvastatin (C restor) 20 mg tablet Rosuvastatin (Crestor) 20 mg tablet 04/20/2019 10:43:40 AM EDT 20 MG completed [facility] Rosuvastatin calcium 20 MG Oral Tablet Rosuvastatin (C restor) 20 mg tablet Rosuvastatin (Crestor) 20 mg tablet 04/20/2019 10:43:40 AM EDT 20 MG completed [facility] Rosuvastatin calcium 20 MG Oral Tablet Rosuvastatin (C restor) 20 mg tablet Rosuvastatin (Crestor) 20 mg tablet 04/20/2019 10:43:40 AM EDT 20 MG completed [facility] Rosuvastatin calcium 20 MG Oral Tablet Rosuvastatin (C restor) 20 mg tablet Rosuvastatin (Crestor) 20 mg tablet 04/20/2019 10:43:40 AM EDT 20 MG completed [facility] Furosemide 40 MG Oral Tablet [Lasix] Furosemide (Lasix ) 40 mg tablet Furosemide (Lasix) 40 mg tablet 04/20/2019 10:43:21 AM EDT 40 MG co mpleted [facility] Furosemide 40 MG Oral Tablet [Lasix] Furosemide (Lasix ) 40 mg tablet Furosemide (Lasix) 40 mg tablet 04/20/2019 10:43:21 AM EDT 40 MG co mpleted [facility] Furosemide 40 MG Oral Tablet [Lasix] Furosemide (Lasix ) 40 mg tablet Furosemide (Lasix) 40 mg tablet 04/20/2019 10:43:21 AM [facility] Furosemide 40 MG Oral Tablet [Lasix] Furosemide (Lasix ) 40 mg tablet Furosemide (Lasix) 40 mg tablet 04/20/2019 10:43:21 AM EDT 40 MG co mpleted [facility] Furosemide 40 MG Oral Tablet [Lasix] Furosemide (Lasix ) 40 mg tablet Furosemide (Lasix) 40 mg tablet 04/20/2019 10:43:21 AM EDT 40 MG co mpleted [facility] Furosemide 40 MG Oral Tablet [Lasix] Furosemide (Lasix ) 40 mg tablet Furosemide (Lasix) 40 mg tablet 04/20/2019 10:43:21 AM EDT 40 MG co mpleted [facility] Furosemide 40 MG Oral Tablet [Lasix] Furosemide (Lasix ) 40 mg tablet Furosemide (Lasix) 40 mg tablet 04/20/2019 10:43:21 AM EDT 40 MG co mpleted [facility] Furosemide 40 MG Oral Tablet [Lasix] Furosemide (Lasix ) 40 mg tablet Furosemide (Lasix) 40 mg tablet 04/20/2019 10:43:21 AM EDT 40 MG co mpleted [facility] Furosemide 40 MG Oral Tablet [Lasix] Furosemide (Lasix ) 40 mg tablet Furosemide (Lasix) 40 mg tablet 04/20/2019 10:43:21 AM EDT [facility] Furosemide 40 MG Oral Tablet [Lasix] Furosemide 04/20/2019 10:43: 21 AM EDT 40 MG completed [facility] Furosemide 40 MG Oral Tablet [Lasix] Furosemide 04/20/2019 10:43: 21 AM EDT 40 MG [facility] 3 mg 04/20/2019 12:00:00 AM EDT tablet 90 TAKE ONE TABLET BY MOUTH EVERY DAY ADJUSTING DOSE NEEDED DEPENDING ON INR RESULTS TAKE ONE TABLET BY MOUTH EVERY DAY ADJUSTING DOSE NEEDED DEPENDING ON INR RESULTS SOLD: 10/27/2019 [facility] 1 mg 03/25/2019 12:00:00 AM [...] Acid 03/24/2019 04:54:55 [address]T [address] [facility] Folic Acid 1 MG Oral Tablet Folic Acid 03/24/2019 04:54:55 PM EDT 1 MG completed [facility] Folic Acid 1 MG Oral Tablet Folic Acid 03/24/2019 04:54:55 PM EDT [address] [facility] Folic Acid 1 MG Oral Tablet Folic Acid 03/24/2019 04:54:55 PM EDT 1 MG completed [facility] Folic Acid 1 MG Oral Tablet Folic Acid 03/24/2019 04:54:55 PM EDT 1 MG completed [facility] Folic Acid 1 MG Oral Tablet Folic Acid 03/24/2019 04:54:55 PM EDT 1 MG completed [facility] Folic Acid 1 MG Oral Tablet Folic Acid 03/24/2019 04:54:55 PM EDT 1 MG completed [facility] Folic Acid 1 MG Oral Tablet Folic Acid 03/24/2019 04:54:55 PM EDT 1 MG completed [facility] Folic Acid 1 MG Oral Tablet Folic Acid 03/24/2019 04:54:55 PM EDT 1 MG completed [facility] 100 mg 03/15/2019 12:00:00 AM EDT tablet [...] 02/10/2019 12:41:32 PM EDT 1 MG completed [facility] Warfarin Sodium 1 MG Oral Tablet Warfarin 02/10/2019 12:41:32 PM EDT 1 MG completed [facility] Warfarin Sodium 1 MG Oral Tablet Warfarin 02/10/2019 12:41:32 PM EDT 1 MG completed [facility] Warfarin Sodium 1 MG Oral Tablet Warfarin 02/10/2019 12:41:32 PM EDT 1 MG completed [facility] Warfarin Sodium 1 MG Oral Tablet Warfarin 02/10/2019 12:41:32 PM EDT 1 MG completed [facility] Warfarin Sodium 1 MG Oral Tablet Warfarin 02/10/2019 12:41:32 PM EDT 1 MG completed [facility] Warfarin Sodium 1 MG Oral Tablet Warfarin 02/10/2019 12:41:32 PM EDT 1 MG completed [facility] Warfarin Sodium 1 MG Oral Tablet Warfarin 02/10/2019 12:41:32 PM EDT 1 MG completed [facility] Warfarin Sodium 1 MG Oral Tablet Warfarin 02/10/2019 12:41:32 PM EDT 1 MG completed [facility] Warfarin Sodium 1 MG Oral Tablet Warfarin 02/10/2019 12:41:32 PM EDT 1 MG completed [facility] Warfarin Sodium 1 MG Oral Tablet Warfarin 02/10/2019 12:41:32 PM EDT 1 MG completed [facility] Warfarin Sodium 1 MG Oral Tablet Warfarin 02/10/2019 12:41:32 PM EDT 1 MG completed [facility] Warfarin Sodium 1 MG Oral Tablet Warfarin 02/10/2019 12:41:32 PM EDT 1 MG completed [facility] Warfarin Sodium 1 MG Oral Tablet Warfarin 02/10/2019 12:41:32 PM EDT 1 MG completed [facility] Warfarin Sodium 2.5 MG Oral Tablet Warfarin 02/10/2019 12:38:59 PM EDT 2.5 MG completed [facility] Warfarin Sodium 2.5 MG Oral Tablet Warfarin 02/10/2019 12:38:59 PM EDT 2.5 MG completed [facility] Warfarin Sodium 2.5 MG Oral Tablet Warfarin 02/10/2019 12:38:59 PM EDT 2.5 MG completed [facility] Warfarin Sodium 2.5 MG Oral Tablet Warfarin 02/10/2019 12:38:59 PM EDT 2.5 MG completed [facility] Warfarin Sodium 2.5 MG Oral Tablet Warfarin 02/10/2019 12:38:59 PM EDT 2.5 MG completed [facility] Warfarin Sodium 2.5 MG Oral Tablet Warfarin 02/10/2019 12:38:59 PM EDT 2.5 MG completed [facility] Warfarin Sodium 2.5 MG Oral Tablet Warfarin 02/10/2019 12:38:59 PM EDT 2.5 MG completed [facility] Warfarin Sodium 2.5 MG Oral Tablet Warfarin 02/10/2019 12:38:59 PM EDT 2.5 MG completed [facility] Warfarin Sodium 2.5 MG Oral Tablet Warfarin 02/10/2019 12:38:59 PM EDT 2.5 MG completed [facility] Warfarin Sodium 2.5 MG Oral Tablet Warfarin 02/10/2019 12:38:59 PM EDT 2.5 MG completed [facility] Warfarin Sodium 2.5 MG Oral Tablet Warfarin 02/10/2019 12:38:59 PM EDT 2.5 MG completed [facility] Warfarin Sodium 2.5 MG Oral Tablet Warfarin 02/10/2019 12:38:59 PM EDT 2.5 MG completed [facility] Warfarin Sodium 2.5 MG Oral Tablet Warfarin 02/10/2019 12:38:59 PM EDT 2.5 MG completed [facility] Warfarin Sodium 2.5 MG Oral Tablet Warfarin 02/10/2019 12:38:59 PM EDT 2.5 MG completed [facility] Allopurinol 100 MG Oral Tablet Allopurinol 12/28/2018 02:13:41 PM EDT 0 completed [facility] Allopurinol 100 MG Oral Tablet Allopurinol 12/28/2018 02:13:41 PM EDT 0 completed [facility] Allopurinol 100 MG Oral Tablet Allopurinol 12/28/2018 02:13:41 PM EDT 0 completed [facility] Allopurinol 100 MG Oral Tablet Allopurinol 12/28/2018 02:13:41 PM EDT 0 completed [facility] Allopurinol 100 MG Oral Tablet Allopurinol 12/28/2018 02:13:41 PM EDT 0 completed [facility] Allopurinol 100 MG Oral Tablet Allopurinol 12/28/2018 02:13:41 PM EDT 0 completed [facility] Allopurinol 100 MG Oral Tablet Allopurinol 12/28/2018 02:13:41 PM EDT 0 completed [facility] Allopurinol 100 MG Oral Tablet Allopurinol 12/28/2018 02:13:41 PM EDT 0 completed [facility] Allopurinol 100 MG Oral Tablet Allopurinol 12/28/2018 02:13:41 PM EDT 0 completed [facility] Allopurinol 100 MG Oral Tablet Allopurinol 12/28/2018 02:13:41 PM EDT 0 completed [facility] Allopurinol 100 MG Oral Tablet Allopurinol 12/28/2018 02:13:41 PM EDT 0 completed [facility] Allopurinol 100 MG Oral Tablet Allopurinol 12/28/2018 02:13:[address] [facility] ferrous gluconate 324 MG Oral Tablet Ferrous Gluconate Nerissa us Gluconate 12/28/2018 02:12:59 PM EDT 0 [facility] ferrous gluconate 324 MG Oral Tablet Ferrous Gluconate Ner[facility] Gluconate 12/28/2018 02:12:59 PM EDT 0 [facility] ferrous gluconate 324 MG Oral Tablet Ferrous Gluconate [facility] Gluconate 12/28/2018 02:12:59 PM EDT 0 [facility] ferrous gluconate 324 MG Oral Tablet Ferrous Gluconate [facility] Gluconate 12/28/2018 02:12:59 PM EDT 0 [facility] ferrous gluconate 324 MG Oral Tablet Ferrous Gluconate [facility] Gluconate 12/28/2018 02:12:59 PM EDT 0 [facility] ferrous gluconate 324 MG Oral Tablet Ferrous Gluconate [facility] Gluconate 12/28/2018 02:12:59 PM EDT 0 [facility] ferrous gluconate 324 MG Oral Tablet Ferrous Gluconate Nerissa us Gluconate 12/28/2018 02:12:59 PM EDT 0 [facility] ferrous gluconate 324 MG Oral Tablet Ferrous Gluconate Nerissa us Gluconate 12/28/2018 02:12:59 PM EDT 0 [facility] ferrous gluconate 324 MG Oral Tablet Ferrous Gluconate Nerissa us Gluconate 12/28/2018 02:12:59 PM EDT 0 [facility] ferrous gluconate 324 MG Oral Tablet Ferrous Gluconate Nerissa us Gluconate 12/28/2018 02:12:59 PM EDT 0 [facility] ferrous gluconate 324 MG Oral Tablet Ferrous Gluconate Nerissa us Gluconate 12/28/2018 02:12:59 PM EDT 0 completed [facility] ferrous gluconate 324 MG Oral Tablet Ferrous Gluconate Nerissa us Gluconate 12/28/2018 02:12:59 PM EDT 0 completed [facility] Metoprolol Tartrate 25 MG Oral Tablet Metoprolol Tartrate 02:12:09 PM EDT 0 completed [facility] Metoprolol Tartrate 25 MG Oral Tablet Metoprolol Tartrate 02:12:09 PM EDT 0 completed [facility] Metoprolol Tartrate 25 MG Oral Tablet Metoprolol Tartrate 02:12:09 PM EDT 0 completed [facility] Metoprolol Tartrate 25 MG Oral Tablet Metoprolol Tartrate 02:12:09 PM EDT 0 completed [facility] Metoprolol Tartrate 25 MG Oral Tablet Metoprolol Tartrate 02:12:09 PM EDT 0 completed [facility] Metoprolol Tartrate 25 MG Oral Tablet Metoprolol Tartrate 02:12:09 PM EDT 0 completed [facility] Metoprolol Tartrate 25 MG Oral Tablet Metoprolol Tartrate 02:12:09 PM EDT 0 completed [facility] Metoprolol Tartrate 25 MG Oral Tablet Metoprolol Tartrate 02:12:09 PM EDT 0 completed [facility] Metoprolol Tartrate 25 MG Oral Tablet Metoprolol Tartrate 02:12:09 PM EDT 0 completed [facility] Metoprolol Tartrate 25 MG Oral Tablet Metoprolol Tartrate 02:12:09 PM EDT 0 completed [facility] Metoprolol Tartrate 25 MG Oral Tablet Metoprolol Tartrate 02:12:09 PM EDT 0 completed [facility] Metoprolol Tartrate 25 MG Oral Tablet Metoprolol Tartrate 02:12:09 PM EDT 0 completed [facility] Metoprolol Tartrate 25 MG Oral Tablet Metoprolol Tartrate 02:12:09 PM EDT 0 completed [facility] Lisinopril 5 MG Oral Tablet Lisinopril 12/28/2018 02:10:26 PM EDT 0 completed [facility] Lisinopril 5 MG Oral Tablet Lisinopril 12/28/2018 02:10:26 PM EDT 0 completed [facility] Lisinopril 5 MG Oral Tablet Lisinopril 12/28/2018 02:10:26 PM EDT 0 completed [facility] Lisinopril 5 MG Oral Tablet Lisinopril 12/28/2018 02:10:26 PM EDT 0 completed [facility] Lisinopril 5 MG Oral Tablet Lisinopril 12/28/2018 02:10:26 PM EDT 0 completed [facility] Lisinopril 5 MG Oral Tablet Lisinopril 12/28/2018 02:10:26 PM EDT 0 completed [facility] Lisinopril 5 MG Oral Tablet Lisinopril 12/28/2018 02:10:26 PM EDT 0 completed [facility] Lisinopril 5 MG Oral Tablet Lisinopril 12/28/2018 02:10:26 PM EDT 0 completed [facility] Lisinopril 5 MG Oral Tablet Lisinopril 12/28/2018 02:10:26 PM EDT 0 completed [facility] Lisinopril 5 MG Oral Tablet Lisinopril 12/28/2018 02:10:26 PM EDT 0 completed [facility] Lisinopril 5 MG Oral Tablet Lisinopril 12/28/2018 02:10:26 PM EDT 0 completed [facility] Lisinopril 5 MG Oral Tablet Lisinopril 12/28/2018 02:10:26 PM EDT 0 completed [facility] Warfarin Sodium 2 MG Oral Tablet Warfarin 11/25/2018 08:12:00 AM EDT 2 MG completed [facility] Warfarin Sodium 2 MG Oral Tablet Warfarin 11/25/2018 08:12:00 AM EDT 2 MG completed [facility] Warfarin Sodium 2 MG Oral Tablet Warfarin 11/25/2018 08:12:00 AM EDT 2 MG completed [facility] Warfarin Sodium 2 MG Oral Tablet Warfarin 11/25/2018 08:12:00 AM EDT 2 MG completed [facility] Warfarin Sodium 2 MG Oral Tablet Warfarin 11/25/2018 08:12:00 AM EDT 2 MG completed [facility] Warfarin Sodium 2 MG Oral Tablet Warfarin 11/25/2018 08:12:00 AM EDT 2 MG completed [facility] Warfarin Sodium 2 MG Oral Tablet Warfarin 11/25/2018 08:12:00 AM EDT 2 MG completed [facility] Warfarin Sodium 2 MG Oral Tablet Warfarin 11/25/2018 08:12:00 AM EDT 2 MG completed [facility] Warfarin Sodium 2 MG Oral Tablet Warfarin 11/25/2018 08:12:00 AM EDT 2 MG completed [facility] Warfarin Sodium 2 MG Oral Tablet Warfarin 11/25/2018 08:12:00 AM EDT 2 MG completed [facility] Warfarin Sodium 2 MG Oral Tablet Warfarin 11/25/2018 08:12:00 AM EDT 2 MG completed [facility] Warfarin Sodium 2 MG Oral Tablet Warfarin 11/25/2018 08:12:00 AM EDT 2 MG completed [facility] Warfarin Sodium 2 MG Oral Tablet Warfarin 11/25/2018 08:12:00 AM EDT 2 MG completed [facility] 2 mg 11/20/2018 12:00:00 AM EDT tablet [...] Tartrate 11:05:00 AM EST 25 MG completed [facility] Metoprolol Tartrate 25 MG Oral Tablet Metoprolol Tartrate 11:05:00 AM EST 25 MG completed [facility] Metoprolol Tartrate 25 MG Oral Tablet Metoprolol Tartrate 11:05:00 AM EST 25 MG completed [facility] Metoprolol Tartrate 25 MG Oral Tablet Metoprolol Tartrate 11:05:00 AM EST 25 MG completed [facility] Metoprolol Tartrate 25 MG Oral Tablet Metoprolol Tartrate 11:05:00 AM EST 25 MG completed [facility] Metoprolol Tartrate 25 MG Oral Tablet Metoprolol Tartrate 11:05:00 AM EST 25 MG completed [facility] Metoprolol Tartrate 25 MG Oral Tablet Metoprolol Tartrate 11:05:00 AM EST 25 MG completed [facility] Metoprolol Tartrate 25 MG Oral Tablet Metoprolol Tartrate 11:05:00 AM EST 25 MG completed [facility] Metoprolol Tartrate 25 MG Oral Tablet Metoprolol Tartrate 11:05:00 AM EST 25 MG completed [facility] Metoprolol Tartrate 25 MG Oral Tablet Metoprolol Tartrate 11:05:00 AM EST 25 MG completed [facility] Metoprolol Tartrate 25 MG Oral Tablet Metoprolol Tartrate 11:05:00 AM EST 25 MG completed [facility] Metoprolol Tartrate 25 MG Oral Tablet Metoprolol Tartrate 11:05:00 AM EST 25 MG completed [facility] Metoprolol Tartrate 25 MG Oral Tablet Metoprolol Tartrate 11:05:00 AM EST 25 MG completed [facility] Cholecalciferol [id number] UNT Oral Capsule Cholecalciferol (Vitamin D3) Cholecalciferol (Vitamin D3) 05/19/2018 09:27:00 AM EDT 1 CAP completed [facility] Cholecalciferol [id number] UNT Oral Capsule Cholecalciferol (Vitamin D3) Cholecalciferol (Vitamin D3) 05/19/2018 09:27:00 AM EDT 1 CAP completed [facility] Cholecalciferol [id number] UNT Oral Capsule Cholecalciferol (Vitamin D3) Cholecalciferol (Vitamin D3) 05/19/2018 09:27:00 AM EDT 1 CAP completed [facility] Cholecalciferol [id number] UNT Oral Capsule Cholecalciferol (Vitamin D3) Cholecalciferol (Vitamin D3) 05/19/2018 09:27:00 AM EDT 1 CAP completed [facility] Cholecalciferol [id number] UNT Oral Capsule Cholecalciferol (Vitamin D3) Cholecalciferol (Vitamin D3) 05/19/2018 09:27:00 AM EDT 1 CAP completed [facility] Cholecalciferol 72713 UNT Oral Capsule Cholecalciferol (Vitamin D3) Cholecalciferol (Vitamin D3) 05/19/2018 09:27:00 AM EDT 1 CAP completed [facility] Cholecalciferol [id number] UNT Oral Capsule Cholecalciferol (Vitamin D3) Cholecalciferol (Vitamin D3) 05/19/2018 09:27:00 AM EDT 1 CAP completed [facility] Cholecalciferol [id number] UNT Oral Capsule Cholecalciferol (Vitamin D3) Cholecalciferol (Vitamin D3) 05/19/2018 09:27:00 AM EDT 1 CAP completed [facility] Cholecalciferol [id number] UNT Oral Capsule Cholecalciferol (Vitamin D3) Cholecalciferol (Vitamin D3) 05/19/2018 09:27:00 AM EDT 1 CAP completed [facility] Cholecalciferol 65476 UNT Oral Capsule Cholecalciferol (Vitamin D3) Cholecalciferol (Vitamin D3) 05/19/2018 09:27:00 AM EDT 1 CAP completed [facility] Cholecalciferol 43142 UNT Oral Capsule Cholecalciferol (Vitamin D3) Cholecalciferol (Vitamin D3) 05/19/2018 09:27:00 AM EDT 1 CAP completed [facility] Cholecalciferol [id number] UNT Oral Capsule Cholecalciferol (Vitamin D3) Cholecalciferol (Vitamin D3) 05/19/2018 09:27:00 AM EDT 1 CAP completed [facility] Cholecalciferol 56082 UNT Oral Capsule Cholecalciferol (Vitamin D3) Cholecalciferol (Vitamin D3) 05/19/2018 09:27:00 AM EDT 1 CAP completed [facility] Colchicine 0.6 MG Oral Tablet Colchicine (Colcrys) 0.6 MG tablet Colchicine (Colcrys) 0.6 MG tablet 05/19/2018 09:21:00 AM EDT 0.6 MG completed [facility] Colchicine 0.6 MG Oral Tablet Colchicine 05/19/2018 09:21:00 AM EDT 0.6 MG completed [facility] Colchicine 0.6 MG Oral Tablet Colchicine 05/19/2018 09:21:00 AM EDT 0.6 MG completed [facility] Colchicine 0.6 MG Oral Tablet Colchicine (Colcrys) 0.6 MG tablet Colchicine (Colcrys) 0.6 MG tablet 05/19/2018 09:21:00 AM EDT 0.6 MG completed [facility] Colchicine 0.6 MG Oral Tablet Colchicine (Colcrys) 0.6 MG tablet Colchicine (Colcrys) 0.6 MG tablet 05/19/2018 09:21:00 AM EDT 0.6 MG completed [facility] Colchicine 0.6 MG Oral Tablet Colchicine (Colcrys) 0.6 MG tablet Colchicine (Colcrys) 0.6 MG tablet 05/19/2018 09:21:00 AM EDT 0.6 MG completed [facility] Colchicine 0.6 MG Oral Tablet Colchicine 05/19/2018 09:21:00 AM EDT 0.6 MG completed [facility] Colchicine 0.6 MG Oral Tablet Colchicine (Colcrys) 0.6 MG tablet Colchicine (Colcrys) 0.6 MG tablet 05/19/2018 09:21:00 AM EDT 0.6 MG completed [facility] Colchicine 0.6 MG Oral Tablet Colchicine (Colcrys) 0.6 MG tablet Colchicine (Colcrys) 0.6 MG tablet 05/19/2018 09:21:00 AM EDT 0.6 MG completed [facility] Colchicine 0.6 MG Oral Tablet Colchicine (Colcrys) 0.6 MG tablet Colchicine (Colcrys) 0.6 MG tablet 05/19/2018 09:21:00 AM EDT 0.6 MG completed [facility] Colchicine 0.6 MG Oral Tablet Colchicine (Colcrys) 0.6 MG tablet Colchicine (Colcrys) 0.6 MG tablet 05/19/2018 09:21:00 AM EDT 0.6 MG completed [facility] Colchicine 0.6 MG Oral Tablet Colchicine (Colcrys) 0.6 MG tablet Colchicine (Colcrys) 0.6 MG tablet 05/19/2018 09:21:00 AM EDT 0.6 MG completed [facility] Digoxin 0.125 MG Oral Tablet Digoxin 01/08/2018 04:24:00 PM EDT 1 TAB completed [facility] Digoxin 0.125 MG Oral Tablet Digoxin 01/08/2018 04:24:00 PM EDT 1 TAB completed [facility] Digoxin 0.125 MG Oral Tablet Digoxin 01/08/2018 04:24:00 PM EDT 1 TAB completed [facility] Digoxin 0.125 MG Oral Tablet Digoxin 01/08/2018 04:24:00 PM EDT 1 TAB completed [facility] Digoxin 0.125 MG Oral Tablet Digoxin 01/08/2018 04:24:00 PM EDT 1 TAB completed [facility] Digoxin 0.125 MG Oral Tablet Digoxin 01/08/2018 04:24:00 PM EDT 1 TAB completed [facility] Digoxin 0.125 MG Oral Tablet Digoxin 01/08/2018 04:24:00 PM EDT 1 TAB completed [facility] Digoxin 0.125 MG Oral Tablet Digoxin 01/08/2018 04:24:00 PM EDT 1 TAB completed [facility] Digoxin 0.125 MG Oral Tablet Digoxin 01/08/2018 04:24:00 PM EDT 1 TAB completed [facility] Digoxin 0.125 MG Oral Tablet Digoxin 01/08/2018 04:24:00 PM EDT 1 TAB completed [facility] Digoxin 0.125 MG Oral Tablet Digoxin 01/08/2018 04:24:00 PM EDT 1 TAB completed [facility] Digoxin 0.125 MG Oral Tablet Digoxin 01/08/2018 04:24:00 PM EDT 1 TAB completed [facility] Digoxin 0.125 MG Oral Tablet Digoxin 01/08/2018 04:24:00 PM EDT 1 TAB completed [facility] [employer] 05/19/2017 04:52:00 PM EDT 2 SPRAYS completed [facility] [employer] 05/19/2017 04:52:00 PM EDT 2 SPRAYS completed [facility] [employer] 05/19/2017 04:52:00 PM EDT 2 SPRAYS completed [facility] [employer] 05/19/2017 04:52:00 PM EDT 2 SPRAYS completed [facility] [employer] 05/19/2017 04:52:00 PM EDT 2 SPRAYS completed [facility] [employer] 05/19/2017 04:52:00 PM EDT 2 SPRAYS completed [facility] [employer] 05/19/2017 04:52:00 PM EDT 2 SPRAYS completed [facility] [employer] 05/19/2017 04:52:00 PM EDT 2 SPRAYS completed [facility] [employer] 05/19/2017 04:52:00 PM EDT 2 SPRAYS completed [facility] [employer] 05/19/2017 04:52:00 PM EDT 2 SPRAYS completed [facility] [employer] 05/19/2017 04:52:00 PM EDT 2 SPRAYS completed [facility] [employer] 05/19/2017 04:52:00 PM EDT 2 SPRAYS completed [facility] Insurance Providers Payer name Policy type / Coverage type Policy ID Covered green party ID Covered green party's relationship to whitney Policy Whitney Plan Information MEDICARE [id number] SP [id number] AARP HEALTH CARE OPTIONS [id number] SP [id number] AARP O [id number] S [id number] MEDICARE C [id number] S [id number] MEDICARE [id number] SP [id number] A AARP HE[employer] CARE OPTIONS [id number] SP [id number] Blue Ppo Medigap Part B [id number] Family Dependent [id number] Blue Ppo Medigap Part B [id number] Family Dependent [id number] [facility] Options Medigap Part B [id number] Self [id number] Medicare (Part B) Medicare Primary [id number] Self [id number] Blue Ppo Medigap Part B [id number] Family Dependent [id number] Blue Ppo Medigap Part B [id number] Family Dependent [id number] [facility] Medigap Part B [id number] Self [id number] Medicare (Part B) Medicare Primary [id number] Self [id number] Aarp Supplemental Plan Medigap Part B [id number] Self [id number] Medicare Medigap Part B [id number] Self [id number] Medicare Medicare Primary [id number] Self [id number] AARP HEALTH CARE OPTIONS [id number] 18 [id number] MEDICARE PART A [facility] [id number] 18 [id number] Blue Ppo Medigap Part B [id number] Family Dependent [id number] Blue Ppo Medigap Part B [id number] Family Dependent [id number] [facility] Medigap Part B [id number] Self [id number] Medicare (Part B) Medicare Primary [id number] Self [id number] Blue Ppo Medigap Part B [id number] Family Dependent [id number] Blue Ppo Medigap Part B [id number] Family Dependent [id number] [facility] Medigap Part B [id number] Self [id number] Medicare (Part B) Medicare Primary [id number] Self [id number] [facility]arp Supplemental Plan Medigap Part B [id number] Self [id number] Medicare Medicare Primary [id number] Self [id number] Blue Ppo Medigap Part B [id number] Family Dependent [id number] Blue Ppo Medigap Part B [id number] Family Dependent [id number] [facility] Medigap Part B [id number] Self [id number] Medicare (Part B) Medicare Primary [id number] Self [id number] AARP HEALTH CARE OPTIONS -O/P [id number] 18 [id number] MEDICARE PART A -O/P [id number] 18 [id number] [facility] Option [id number] 0 [id number] Medicare Part B [facility] [id number] Blue Ppo Medigap Part B [id number] Family Dependent [id number] Blue Ppo Medigap Part B [id number] Family Dependent [id number] [facility] Medigap Part B [id number] Self [id number] Medicare (Part B) Medicare Primary [id number] Self [id number] [employer] [place] [id number] Aarp Supplemental Plan Medigap Part B Self Medicare Medicare Primary Self [facility] [id number] 0 [id number] Medicare Part B [facility] [id number] [facility]arp Medigap Part B Self [place] Medicare Primary Self [facility] [id number] Allegra [id number] MEDICARE [id number] Allegra [id number] [facility] Medigap Part B Self Blue Ppo Medigap Part B Family Dependent Blue Ppo Medigap Part B Family Dependent [facility] Medigap Part B Self Medicare Medicare Primary Self [facility] Medigap Part B Self Problems, Conditions, and Diagnoses Code Display Name Description Problem Type Effective Dates Data Source(s) 197572125 Permanent atrial fibrillation Permanent atrial fibrill ation Problem 08/01/2020 12:00:00 AM EST [facility] ([facility]) [id number] 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 CT Maxillofacial area w/o cont 09/06/2020 10:25:00 AM [facility] CT Head without contrast 09/06/2020 10:24:00 AM [facility] Plain chest X-ray (procedure) 09/06/2020 08:55:[address] [facility] Blood Culture 09/06/2020 12:00:00 AM [facility] Urine Culture 09/06/2020 12:00:00 AM [facility] Nucleic acid assay (procedure) 09/06/2020 12:00:00 AM [facility] CHEMOTX ADMN SUBQ/IM HORMONAL ANTI-MIGUEL 08/14/2020 12:0 0:00 AM EST [facility] ([facility]) CHEMOTX ADMN SUBQ/IM HORMONAL ANTI-MIGUEL 08/14/2020 12:0 0:00 AM VERONICA KELLY ([facility]) Echocardiography (procedure) 08/10/2020 10:01:00 AM [facility] Echocardiography (procedure) 08/10/2020 10:01:00 AM [facility] Echocardiography (procedure) 08/10/2020 10:01:00 AM [facility] Echocardiography (procedure) 08/09/2020 09:46:34 PM [facility] Ultrasound scan of carotid (procedure) 08/09/2020 07:1 6:00 PM [facility] Ultrasound scan of carotid (procedure) 08/09/2020 07:1 6:00 PM [facility] Ultrasound scan of carotid (procedure) 08/09/2020 07:1 6:00 PM [facility] Ultrasound scan of carotid (procedure) 08/09/2020 07:1 6:00 PM [facility] CT Head without contrast 08/09/2020 06:24:09 PM [facility] CT Head without contrast 08/09/2020 06:24:09 PM [facility] CT Head without contrast 08/09/2020 06:24:09 PM [facility] CT Head without contrast 08/09/2020 06:24:09 PM [facility] Plain chest X-ray (procedure) 08/09/2020 03:40:00 PM [facility] Plain chest X-ray (procedure) 08/09/2020 03:40:00 PM [facility] Plain chest X-ray (procedure) 08/09/2020 03:40:00 PM [facility] Plain chest X-ray (procedure) 08/09/2020 03:40:00 PM [facility] Nucleic acid assay (procedure) 08/09/2020 12:00:00 AM [facility] Nucleic acid assay (procedure) 08/09/2020 12:00:00 AM [facility] Nucleic acid assay (procedure) 08/09/2020 12:00:00 AM [facility] Nucleic acid assay (procedure) 08/09/2020 12:00:00 AM [facility] ECG ROUTINE ECG W/LEAST 12 LDS W/I&R 08/01/2020 12:00: 00 AM EST [facility] ([facility]) COMPLEX UROFLOMETRY 05/10/2020 12:00:00 AM EDT [facility] ([facility]) DAVID POST-VOIDING RESIDUAL URINE&/BLDR CAP 05/10/2020 12:00:00 AM EDT [facility] ([facility]) CHEMOTX ADMN SUBQ/IM HORMONAL ANTI-MIGUEL 02/03/2020 12:0 0:00 AM EDT [facility] ([facility]) DAVID POST-VOIDING RESIDUAL URINE&/BLDR CAP 02/01/2020 12:00:00 AM EDT [facility] ([facility]) ECG ROUTINE ECG W/LEAST 12 LDS W/I&R 01/31/2020 12:00: 00 AM EDT [facility] ([facility] Plain chest X-ray (procedure) 01/23/2020 04:48:00 PM E [facility] Plain chest X-ray (procedure) 01/23/2020 04:48:00 PM E [facility] Plain chest X-ray (procedure) 01/23/2020 04:48:00 PM E [facility] Plain chest X-ray (procedure) 01/23/2020 04:48:00 PM E [facility] Plain chest X-ray (procedure) 01/23/2020 04:48:00 PM E [facility] Plain chest X-ray (procedure) 01/23/2020 04:48:00 PM E [facility] Plain chest X-ray (procedure) 01/23/2020 04:48:00 PM E [facility] Plain chest X-ray (procedure) 01/23/2020 04:48:00 PM E [facility] Plain chest X-ray (procedure) 01/23/2020 04:48:00 PM E [facility] Plain chest X-ray (procedure) 01/23/2020 04:48:00 PM E [facility] Plain chest X-ray (procedure) 01/23/2020 04:48:00 PM E [facility] CT Head without contrast 01/23/2020 04:47:00 PM EDT [facility] CT Head without contrast 01/23/2020 04:47:00 PM EDT [facility] CT Head without contrast 01/23/2020 04:47:00 PM EDT [facility] CT Head without contrast 01/23/2020 04:47:00 PM EDT [facility] CT Head without contrast 01/23/2020 04:47:00 PM EDT [facility] CT Head without contrast 01/23/2020 04:47:00 PM EDT [facility] CT Head without contrast 01/23/2020 04:47:00 PM EDT [facility] CT Head without contrast 01/23/2020 04:47:00 PM EDT [facility] CT Head without contrast 01/23/2020 04:47:00 PM EDT [facility] CT Head without contrast 01/23/2020 04:47:00 PM T [facility] CT Head without [facility] 12/09/2019 10:19:00 AM E [facility] Plain chest X-ray (procedure) 12/09/2019 10:19:00 AM E [facility] Plain chest X-ray (procedure) 12/09/2019 10:19:00 AM E [facility] Plain chest X-ray (procedure) 12/09/2019 10:19:00 AM E [facility] Plain chest X-ray (procedure) 12/09/2019 10:19:00 AM E [facility] Plain chest X-ray (procedure) 12/09/2019 10:19:00 AM E [facility] Plain chest X-ray (procedure) 12/09/2019 10:19:00 AM E [facility] Plain chest X-ray (procedure) 12/09/2019 10:19:00 AM E [facility] Plain chest X-ray (procedure) 12/09/2019 10:19:00 AM E [facility] Plain chest X-ray (procedure) 12/09/2019 10:19:00 AM E [facility] Plain chest X-ray (procedure) 12/09/2019 10:19:00 AM E [facility] Plain chest X-ray (procedure) 12/09/2019 10:19:00 AM [facility] [facility] cervical spine (procedure) 10/20/2019 1 1:02:47 AM [facility] Radiography of cervical spine (procedure) 10/20/2019 1 1:02:47 AM [facility] Radiography of cervical spine (procedure) 10/20/2019 1 1:02:47 AM [facility] Radiography of cervical spine (procedure) 10/20/2019 1 1:02:47 AM [facility] Radiography of cervical spine (procedure) 10/20/2019 1 1:02:47 AM [facility] Radiography of cervical spine (procedure) 10/20/2019 1 1:02:47 AM [facility] Radiography of cervical spine (procedure) 10/20/2019 1 1:02:47 AM [facility] Radiography of cervical spine (procedure) 10/20/2019 1 1:02:47 AM [facility] Radiography of cervical spine (procedure) 10/20/2019 1 1:02:47 AM [facility] Radiography of cervical spine (procedure) 10/20/2019 1 1:02:47 AM [facility] Radiography of cervical spine (procedure) 10/20/2019 1 1:02:47 AM [facility] Radiography of cervical spine (procedure) 10/20/2019 1 1:02:47 AM [facility] Radiography of cervical spine (procedure) 10/20/2019 1 1:02:47 AM [facility] Diagnostic radiography of chest, combine d posteroanterior and lateral (procedure) 08/13/2019 02:24:00 PM [facility] Diagnostic radiography of chest, combine d posteroanterior and lateral (procedure) 08/13/2019 02:24:00 PM [facility] Diagnostic radiography of chest, combine d posteroanterior and lateral (procedure) 08/13/2019 02:24:00 PM [facility] Diagnostic radiography of chest, combine d posteroanterior and lateral (procedure) 08/13/2019 02:24:00 PM [facility] Diagnostic radiography of chest, combine d posteroanterior and lateral (procedure) 08/13/2019 02:24:00 PM [facility] Diagnostic radiography of chest, combine d posteroanterior and lateral (procedure) 08/13/2019 02:24:00 PM [facility] Diagnostic radiography of chest, combine d posteroanterior and lateral (procedure) 08/13/2019 02:24:00 PM [facility] Diagnostic radiography of chest, combine d posteroanterior and lateral (procedure) 08/13/2019 02:24:00 PM [facility] Diagnostic radiography of chest, combine d posteroanterior and lateral (procedure) 08/13/2019 02:24:00 PM [facility] Diagnostic radiography of chest, combine d posteroanterior and lateral (procedure) 08/13/2019 02:24:00 PM [facility] Diagnostic radiography of chest, combine d posteroanterior and lateral (procedure) 08/13/2019 02:24:00 PM [facility] Diagnostic radiography of chest, combine d posteroanterior and lateral (procedure) 08/13/2019 02:24:00 PM [facility] Diagnostic radiography of chest, combine d posteroanterior and lateral (procedure) 08/13/2019 02:24:00 PM [facility] Results ID Date Data Source [id number] 10/02/2020 03:38:00 PM [facility] Name Value Range Interpretation Code Description Data Maribel rce(s) Supporting Document(s) SARS-CoV-2 (COVID 19) NEGATIVE - SARS-CoV-2 (COVID19) [facility] This lab was ordered by [facility] a nd reported by [facility]. ID Date Data Source [id number] 09/06/2020 07:58:00 PM [facility] Transfusion reaction REACT on unit W2001 [id number]. Transfusion reaction REACT on unit W2001 [id number]. Transfusion reaction REACT on unit W2001 [id number]. Transfusion reaction REACT on unit W2001 [id number]. Name Value Range Interpretation Code Description Data Maribel rce(s) Supporting Document(s) Post-Trans Hemoglobin, Urine Yes, Hgb Present [facility] ALSO PRESENT IN PRE-TRANSFUSION URINEPLE ASE NOT UA DONE BEFORE TRANSFUSION ID Date Data Source [id number] 09/06/2020 08:01:00 PM [facility] Transfusion reaction REACT on unit W2001 [id number]. Transfusion reaction REACT on unit W2001 [id number]. Transfusion reaction REACT on unit W2001 [id number]. Transfusion reaction REACT on unit W2001 [id number]. Name Value Range Interpretation Code Description Data Maribel rce(s) Supporting Document(s) Sales Representative [employer] Notified No, Not Notified [facility] ID Date Data Source [id number] 09/06/2020 07:58:00 PM [facility] Transfusion reaction REACT on unit W2001 [id number]. Transfusion reaction REACT on unit W2001 [id number]. Transfusion reaction REACT on unit W2001 [id number]. Transfusion reaction REACT on unit W2001 [id number]. Name Value Range Interpretation Code Description Data Maribel rce(s) Supporting Document(s) Post-Trans Visible Serum Hgb None Present [facility] ID Date Data Source [id number] 09/06/2020 08:01:00 PM [facility] Transfusion reaction REACT on unit W2001 [id number]. Transfusion reaction REACT on unit W2001 [id number]. Transfusion reaction REACT on unit W2001 [id number]. Transfusion reaction REACT on unit W2001 [id number]. Name Value Range Interpretation Code Description Data Maribel rce(s) Supporting Document(s) Pathologist Notified Yes, Path. Notified [facility] ID Date Data Source [id number] 09/06/2020 07:58:00 PM [facility] Transfusion reaction REACT on unit W2001 [id number]. Transfusion reaction REACT on unit W2001 [id number]. Transfusion reaction REACT on unit W2001 [id number]. Transfusion reaction REACT on unit W2001 [id number]. Name Value Range Interpretation Code Description Data Maribel rce(s) Supporting Document(s) Post Blood Type [facility] ID Date Data Source [id number] 09/06/2020 08:01:00 PM EST [facility] Transfusion reaction REACT on unit W2001 [id number]. Transfusion reaction REACT on unit W2001 [id number]. Transfusion reaction REACT on unit W2001 [id number]. Transfusion reaction REACT on unit W2001 [id number]. Name Value Range Interpretation Code Description Data Maribel rce(s) Supporting Document(s) Clerical Check No Errors Found [facility] ID Date Data Source [id number] 09/06/2020 07:58:00 PM [facility] Transfusion reaction REACT on unit W2001 [id number]. Transfusion reaction REACT on unit W2001 [id number]. Transfusion reaction REACT on unit W2001 [id number]. Transfusion reaction REACT on unit W2001 [id number]. Name Value Range Interpretation Code Description Data Maribel rce(s) Supporting Document(s) PostTx Antibody Screen NEGATIVE [facility] ID Date Data Source [id number] 09/06/2020 08:01:00 PM [facility] Transfusion reaction REACT on unit W2001 [id number]. Transfusion reaction REACT on unit W2001 [id number]. Transfusion reaction REACT on unit W2001 [id number]. Transfusion reaction REACT on unit W2001 [id number]. Name Value Range Interpretation Code Description Data Maribel rce(s) Supporting Document(s) Pre-Trans Visible Serum Hgb None Present [facility] ID Date Data Source [id number] 09/06/2020 07:58:00 PM [facility] Transfusion reaction REACT on unit W2001 [id number]. Transfusion reaction REACT on unit W2001 [id number]. Transfusion reaction REACT on unit W2001 [id number]. Transfusion reaction REACT on unit W2001 [id number]. Name Value Range Interpretation Code Description Data Maribel rce(s) Supporting Document(s) Post RYAN Result NEGATIVE [facility] ID Date Data Source [id number] 09/06/2020 08:01:00 PM [facility] Transfusion reaction REACT on unit W2001 [id number]. Transfusion reaction REACT on unit W2001 [id number]. Transfusion reaction REACT on unit W2001 [id number]. Transfusion reaction REACT on unit W2001 [id number]. Name Value Range Interpretation Code Description Data Maribel rce(s) Supporting Document(s) [facility]transfusion [facility] ID Date Data Source [id number] 09/06/2020 07:58:00 PM [facility] Transfusion reaction REACT on unit W2001 [id number]. Transfusion reaction REACT on unit W2001 [id number]. Transfusion reaction REACT on unit W2001 [id number]. Transfusion reaction REACT on unit W2001 [id number]. Name Value Range Interpretation Code Description Data Maribel rce(s) Supporting Document(s) Post XM Immediate Spin-Patient [facility] NO CROSSMATCH PERFORMED, PLASMA TRANSFUS ED ID Date Data Source [id number] 09/06/2020 08:01:00 PM [facility] Transfusion reaction REACT on unit W2001 [id number]. Transfusion reaction REACT on unit W2001 [id number]. Transfusion reaction REACT on unit W2001 [id number]. Transfusion reaction REACT on unit W2001 [id number]. Name Value Range Interpretation Code Description Data Maribel rce(s) Supporting Document(s) Pretransfusion Antibody Screen NEGATIVE [facility] ID Date Data Source [id number] 09/06/2020 08:01:00 PM EST [facility] Transfusion reaction REACT on unit W2001 [id number]. Transfusion reaction REACT on unit W2001 [id number]. Transfusion reaction REACT on unit W2001 [id number]. Transfusion reaction REACT on unit W2001 [id number]. Name Value Range Interpretation Code Description Data Maribel rce(s) Supporting Document(s) Pre RYAN Result NEGATIVE [facility] ID Date Data Source [id number] 09/06/2020 08:01:00 PM EST [facility] Transfusion reaction REACT on unit W2001 [id number]. Transfusion reaction REACT on unit W2001 [id number]. Transfusion reaction REACT on unit W2001 [id number]. Transfusion reaction REACT on unit W2001 [id number]. Name Value Range Interpretation Code Description Data Maribel rce(s) Supporting Document(s) Pre XM Immediate Spin-Patient [facility] CROSSMATCH NOT PERFORMED,PLASMA TRANSFUS ED ID Date Data Source [id number] 09/06/2020 06:52:00 PM EST [facility] Special Instructions: POST BLOOD REACTIO NReason for ordering culture: Abnormal findings UAPOST TRANSFUSION URINE@09/06/20 1851: UA W/ MICRO added. RFLXG = UMIC CIF.Method of Collection:: Voided @09/06/20 1852: Urine culture added. RFL XG = CULT.ADD. Special Instructions: POST BLOOD REACTIO NReason for ordering culture: Abnormal findings UAPOST TRANSFUSION URINE@09/06/20 185: UA W/ MICRO added. RFLXG = UMIC CIF.Method of Collection:: Voided Name Value Range Interpretation Code Description Data Maribel rce(s) Supporting Document(s) Color of Urine [facility] Appearance of Urine CLEAR Abnormal (applies to non-nu meric results) [facility] pH of Urine by Test strip 5.0 5-8 [facility] Specific gravity of Urine by Refractometry 1.016 1.005-1.030 [facility] Leukocyte esterase [Presence] in Urine by Test strip NEGAT NILESH [facility] Nitrite [Presence] in Urine by Test strip NEGATIVE [facility] Protein [Presence] in Urine by Test strip NEGATIVE Above high normal [facility] @DO MICRO!!!! Glucose [Mass/volume] in Urine by Automated test strip NEGATIVE NEG ATIVE [facility] Ketones [Presence] in Urine by Test strip NEGATIVE [facility] Urobilinogen [Presence] in Urine 0.2-1 EU/dl [facility] Bilirubin.total [Presence] in Urine by Automated test strip NEGATIVE [facility] Erythrocytes [#/volume] in Urine by Test strip MODERATE N EGATIVE Abnormal (applies to non-numeric results) [facility]!!!!A Culture has been added to this specimen per established criteria URINE MICROSCOPIC? (CIF) Microscopic Added [facility] ID Date Data Source [id number] 09/08/2020 06:37:00 AM [facility] Special Instructions: POST BLOOD REACTIO NReason for ordering culture: Abnormal findings UAPOST TRANSFUSION URINE@09/06/201850: UA W/ MICRO added. RFLXG = UMIC CIF.Method of Collection:: Voided @09/06/201851: Urine culture added. RFL XG = CULT.ADD. Special Instructions: POST BLOOD REACTIO NReason for ordering culture: Abnormal findings UAPOST TRANSFUSION URINE@09/06/201850: UA W/ MICRO added. RFLXG = UMIC CIF.Method of Collection:: Voided Name Value Range Interpretation Code Description Data Maribel rce(s) Supporting Document(s) Urine culture result No growth [facility] ID Date Data Source [id number] 09/06/2020 06:52:00 PM EST [facility] Special Instructions: POST BLOOD REACTIO NReason for ordering culture: Abnormal findings UAPOST TRANSFUSION URINE@09/06/201850: UA W/ MICRO added. RFLXG = UMIC CIF.Method of Collection:: Voided @09/06/201851: Urine culture added. RFL XG = CULT.ADD. Special Instructions: POST BLOOD REACTIO NReason for ordering culture: Abnormal findings UAPOST TRANSFUSION URINE@09/06/201850: UA W/ MICRO added. RFLXG = UMIC CIF.Method of Collection:: Voided Name Value Range Interpretation Code Description Data Maribel rce(s) Supporting Document(s) Erythrocytes [#/volume] in Urine by Manual count 1-2 /hpf 0-5 [facility] Leukocytes [#/volume] in Urine by Manual count OCCASIONAL 0-5 [facility] Amorphous sediment [Presence] in Urine sediment by Light microscopy [facility] ID Date Data Source [id number] 09/06/2020 02:39:00 PM [facility] Oxygen Delivery Method Nasal Cannula7.13 @Review test & document.Called to dr mendez @ 1439 by Paulette Farhad. Results readback.26.3 Name Value Range Interpretation Code Description Data Maribel rce(s) Supporting Document(s) Oxygen [Partial pressure] in Gas 111.0 mm[Hg] 74.0-100.0 Above high n ormal [facility] 97.98.7-18.9 Carbon dioxide, total [Moles/volume] in Arterial blood 9.5 mmol/ L 22.0-30.0 Below low normal [facility] 280.6Nasal Cannula@Reenter manual test r esult: NASAL CANNULA@by PauletteBlowtorchhouse at 09/06/20 143. Specimen site Narrative LEFT RADIAL ARTERY [facility] @Reenter manual test result: LEFT RADIAL @by Paulette Farhad at 09/06/20 143.Performed@Reenter manual test result: PERFORMED@by Paulette Farhad at 09/06/20 143. ID Date Data Source [id number] 09/06/2020 11:23:00 AM [facility] [address] [place] [id number] [phone] NAME SEX PT STATUS ACCOUNT NUMBER BRITTON GOMEZ [facility] ER [id number] ORDERING PHYSICIAN LOCATION MEDICAL RECORD NO. Justice Mendez MD ER [id number] ATTENDING PHYSICIAN DATE OF DATE OF EXAM/TIME Mayuri Guardado DO 1940 09/06/20 / 1025 TYPE / EXAM CT Maxillofacial area w/o [...] Reported By Nguyen Lawson MD on 09/06/20 1123 Signed By Nguyen Lawson MD on 09/06/20 1128 Date Time CC: Mayuri Guardado DO; Nguyen Lawson MD Techn: MARILYNSA Trans Dt/Tm: Trans by: DT Prt Dt/Tm: : Total DLP = 500.00 mGy-cm : Total Radiation Dose = 1.5500 mSv Lifetime Dose: 13.3893 mSv Name Value Range Interpretation Code Description Data Maribel rce(s) Supporting Document(s) ID Date Data Source [id number] 09/06/2020 10:58:00 AM EST [facility] [address] [place] [address] [phone] NAME SEX PT STATUS ACCOUNT NUMBER BRITTON GOMEZ [facility] [id number] ORDERING PHYSICIAN LOCATION MEDICAL RECORD NO. Justice Mendez MD ER [id number] ATTENDING PHYSICIAN DATE OF DATE OF EXAM/TIME [...] rce(s) Supporting Document(s) ID Date Data Source [id number] 09/06/2020 10:52:00 AM [facility] ED Physician Documentation NAME: BRITTON GOMEZ : 1940 AGE: 80 MR#: [id number] SERVICE DATE: 09/06/[address]: Justice Mendez MD PRIMARY CARE DR: Mayuri Guardado DO ROOM#: HPI (Adult, General) General Chief Complaint: Multi system (Adult) Stated Complaint: WEAKNESS Time Seen by Provider: 09/06/20 06:54 Source: patient and family (Patient's ) History of Present Illness Narrative: Patient complains of 4-day history of nausea but no vomiting, very poor p.o. intake and diarrhea. No blood in the stool or black stools. Patient also complains of severe neck pain, diffuse headache and facial pain for 4 days. Denies any chest pain, shortness of breath, fever or chills, abdominal pain, back pain, any known bleeding, sick contacts, dysuria, fall or trauma. No aggravating or relieving factors for his symptoms. Complains of mild dry cough for 4 days. Denies any calf pain or ankle swelling. Claims compliance with his medication and diet. Allergies/Home Meds Allergies Allergy/A dvReac Type Severity Reaction Status Date / Time No Known Drug Allergies Allergy Verified 09/06/20 07:58 Home Medications Medication Instructions Recorded Confirmed Last Taken Type acetaminophen [Tylenol] 650 mg PO QID 03/15/16 08/16/20 08/10/20 12:30 History aspirin 81 mg PO DAILY #90 tabec 06/05/16 08/16/20 08/10/20 08:41 History Probiotic 1 ea PO DAILY #30 cap 02/12/17 08/16/20 08/09/20 History finasteride 5 mg PO DAILY #90 tab 08/19/17 08/16/20 08/10/20 08:38 History tamsulosin 1 tab PO DAILY #90 cap 08/19/17 08/16/20 08/10/20 08:38 History leuprolide 7.5 mg (1 month) 7.5 mg SQ [id number] each 12/09/19 08/16/20 08/02/19 History subcutaneous syringe metoprolol tartrate 12.5 mg PO BID MDD 1 12/09/19 08/16/20 08/10/20 08:39 History furosemide 40 mg tablet 40 mg PO BID #180 tab 12/22/19 08/16/20 08/10/20 05:41 Rx warfarin 3 mg tablet 3 mg PO QDAY #30 tab 02/10/20 08/16/20 Unknown Rx allopurinol 100 mg tablet 100 mg PO DAILY #90 tab 03/08/20 08/16/20 08/10/20 08:38 Rx ferrous gluconate 324 mg (38 mg 324 mg PO DAILY #90 tab 03/08/20 08/16/20 08/10/20 08:38 Rx iron) tablet lisinopril 5 mg tablet 5 mg PO DAILY #90 tab 03/08/20 08/16/20 08/10/20 08:41 Rx omeprazole 20 mg capsule,delayed 20 mg PO QDAY #90 cap 03/08/20 08/16/20 08/10/20 08:37 Rx release folic acid 1 mg tablet 1 mg PO DAILY #90 tab 03/14/20 08/16/20 08/10/20 08:38 Rx hydrocortisone 1 % topical cream 1 applic TOP BID-QID PRN #30 gm 05/16/20 08/16/20 Unknown Rx rosuvastatin 20 mg tablet 20 mg PO DAILY #90 tab 05/16/20 08/16/20 08/09/20 Rx 2310 albuterol sulfate 90 mcg/actuation 2 inh IH QID PRN #8.5 gm 07/11/20 08/16/20 Unknown Rx aerosol inhaler warfarin 2 mg tablet 2 mg PO 2XW #15 tab 08/15/20 08/16/20 Unknown Rx gemfibrozil 600 mg tablet 600 mg PO BID #180 tabs 09/05/20 Unknown Rx PMH (from Triage) Patient Medical History PMH Reviewed/U pdated as Needed: Yes PMH/PSH from Triage: Medical History (Updated 08/18/20 @ 11:06 by Mayuri Guardado DO) Anemia (Medical) D64.9 Atrial fibrillation with controlled ventricular response (Medical) I48.91 Well controlled, follow up with environmental health technician Bleeding diathesis (Medical) D69.9 BPH w urinary obs/LUTS (Medical 08/19/17) N40.1, N13.8 Bradycardia (Medical) R00.1 Bug bite without infection (Medical) W57.XXXA Carpal tunnel syndrome on right (Medical 09/27/14) G56.01 Chronic atrial fibrillation (Medical 06/11/16) I48.2 Chronic renal failure (Medical) N18.9 Chronic renal impairment, stage 3 (moderate) (Medical 10/09/15) N18.3 CKD (chronic kidney disease) stage 3, GFR 30-59 ml/min (Medical) N18.3 Follow up with ring sewer Congestive heart failure (CHF) (Medical) I50.9 Well [...] drug (Medical) L29.8, T50.905A Laceration of ear, solar mechanical engineer al, left, complicated (Medical) S01.312A Late eff nerv injury shld/arm (Medical 07/25/14) S44.90XS Late effect of tendon injury (Medical 07/25/14) Neck pain on left side (Medical) M54.2 On warfarin therapy (Medical 12/08/18) Z79.01 Peripheral vascular disease in diabetes mellitus (Medical 01/06/15) E11.Jul bilat aortofem bypass Prostate nodule (Medical) N40.2 Scabies (Medical) B86 Seborrheic keratosis (Medical 09/26/16) L82.1 Skin sensation [...] No Hx Other Resistant Infection?: No Isolation: Airborne Hx Recent Travel Out of the country within 10 days (where): No Hx Fever: No Hx Fever with a rash?: No Nurse screening for coronavirus: Recent Travel outside the No country (where) Has patient experienced Yes coronavirus symptoms Coronavirus symptoms Shortness of breath,Nausea, vomiting or diarr,New experienced loss of taste or smel Social History Does patient have suicidal/homicidal thoughts or ideation?: No Are you in a relationship with/Does anyone hit you, yell/swear at you, steal from you?: No Substance Use Hx Alcohol Use: No Hx Substance Use: No Hx Substance Use Treatment: No Second Hand Smoke Exposure: No Smoking Status: Former smoker Tobacco Use Years smoked:: 15 Hx Chewing Tobacco Use: No Vaccination History Hx/Date of Tetanus, Diphtheria Vaccination: Yes Hx/Date of Influenza Vaccination: Yes Hx/Date of Pneumococcal Vaccination: Yes Immunizations Up to Date: Yes [facility] Medical History Anemia Atrial fibrillation with controlled [...] ( 2013) History of - surgery ( 2016) Stented coronary artery ( 2008) Family Hist ory Mother No problems noted. Father Heart disease Brother No problems noted. Brother Hyperlipidemia Hypertension Brother No problems noted. Sister No problems noted. Sister No problems noted. Sister Multiple sclerosis Sister No problems noted. Sister No problems noted. Social History Does the Patient have a Healthcare Proxy: Yes Does Patient have a DNR?: Yes (verbal from and pt) Does Patient have a Living Will?: Yes Does the Patient have a MOLST?: No Advance Directives on File or in chart?: Yes Hx Recent Travel (where): No Smoking Status: Former smoker ROS Review of Systems ROS Narrative: Total of more than 10 systems were reviewed and they were all negative except as mentioned in the history of present illness. Physical Exam General Limitations: no limitations General appearance: other (Acutely ill-appearing elderly white male appears severely dehydrated. Mild pallor noted. No cyanosis, icterus, or diaphoresis. Alert. Patient knows name, place, year, and month.) Head Head exam: Present atraumatic and normocephalic Eye Eye exam: Present normal apperance, PERRL and EOMI; Absent scleral icterus, conjunctival injection, periorbital swelling and periorbital tenderness Pupils: Present normal accommodation; Absent irregular, unequal, miosis and mydriatic ENT ENT exam: Present other (Normal inspection, no paranasal sinus tenderness or erythema) Neck Neck exam: Present normal inspection, supple and other (No cervical spine deformity or point tenderness); Absent tenderness and meningismus Respiratory Respiratory exam: Present normal lung sounds bilaterally; Absent respiratory distress Cardiovascular Cardiovascular Exam: Present normal rhythm, irregular rhythm, normal heart sound s and no murmur GI/Abdominal GI/Abdominal exam: Present soft; Absent tenderness, guarding, rebound and organomegaly Extremities Exam Extremities exam: Present normal inspection; Absent pedal edema Neurological Exam Neurological exam: Present alert, oriented X3 and other (No gross neurologic deficits) Skin Skin exam: Present warm and dry Vital Signs Vital Signs: Vital Signs 09/06/20 06:41 09/06/20 07:20 09/06/20 07:36 Temperature 97.5 F L Pulse Rate 110 H 82 Respiratory Rate 22 22 Blood Pressure 52/00 O2 Sat by Pulse Oximetry 88 L 92 L 98 09/06/20 07:38 09/06/20 07:58 09/06/20 08:01 Temperature Pulse Rate 88 90 Respiratory Rate 22 Blood Pressure 70/39 78/39 64/00 O2 Sat by Pulse Oximetry 96 09/06/20 08:19 09/06/20 08:22 09/06/20 08:45 Temperature 97.1 F L Pulse Rate 92 Respiratory Rate 20 Blood Pressure 58/38 58/38 78/00 O2 Sat by Pulse Oximetry 98 09/06/20 08:50 09/06/20 08:57 09/06/20 09:03 Temperature Pulse Rate 95 96 Respiratory Rate 22 20 Blood Pressure 72/40 72/42 84/50 O2 Sat by Pulse Oximetry 96 98 09/06/20 09:15 09/06/20 09:29 09/06/20 09:52 Temperature Pulse Rate 109 H Respiratory Rate 24 22 Blood Pressure 88/48 96/48 100/58 O2 Sat by Pulse Oximetry 98 09/06/20 10:05 09/06/20 10:30 09/06/20 11:13 Temperature Pulse Rate 114 H 111 H 107 H Respiratory Rate 18 22 Blood Pressure 100/60 92/00 92/58 O2 Sat by Pulse Oximetry 97 98 98 09/06/20 12:15 09/06/20 12:29 09/06/20 13:09 Temperature 97.0 F L Pulse Rate 110 H 105 H Respiratory Rate 22 20 Blood Pressure 128/60 128/60 122/43 O2 Sat by Pulse Oximetry 100 100 09/06/20 13:19 09/06/20 13:24 09/06/20 13:50 Temperature 97 F L Pulse Rate 109 H Respiratory Rate 22 Blood Pressure 118/66 98/56 90/42 O2 Sat by Pulse Oximetry 100 09/06/20 14:34 09/06/20 15:15 09/06/20 15:36 Temperature 96.9 F L 97.0 F L Pulse Rate 106 H 110 H Respiratory Rate 22 22 Blood Pressure 88/00 108/60 102/60 O2 Sat by Pulse Oximetry 99 98 09/06/20 15:54 09/06/20 16:38 09/06/20 16:46 Temperature 97.0 F L Pulse Rate 110 H 113 H Respiratory Rate 22 24 Blood Pressure 106/68 118/62 O2 Sat by Pulse Oximetry 99 98 09/06/20 16:54 09/06/20 17:05 09/06/20 17:22 Temperature 97.3 F L 97.3 F L 97.3 F L Pulse Rate 117 H 114 H 108 H Respiratory Rate 24 24 24 Blood Pressure 116/60 122/82 114/78 O2 Sat by Pulse Oximetry 98 98 97 09/06/20 18:14 Temperature 97.3 F L Pulse Rate 111 H Respiratory Rate 24 Blood Pressure 114/64 O2 Sat by Pulse Oximetry 98 MDM (comprehensive) Lab Data Labs: 09/06/20 07:15 09/06/20 07:15 Laboratory Results Last 24 hours 09/06/20 07:15: Blood Type O Negative, Antibody Screen N egative 09/06/20 09:15: Puncture Site Right radial artery, ABG pH (Temp Correct) 7.02 L*, ABG pCO2 (Temp Corrct 24.3 L, ABG pO2 (Temp Correct 106.0 H, ABG HCO3 6.3 L, ABG Total CO2 7.1 L, ABG O2 Sat (Measured) 96.4 H, ABG Base Excess -23.0 L, Duncan Test Performed, Arterial/Alveolar Ratio 0.6 L, O2 Delivery Method Nasal cannula, FiO2 09/06/20 13:45: Blood Type O Negative 09/06/20 13:46: POC Glucose 213 H 09/06/20 14:30: Puncture Site Left radial artery, ABG pH (Temp Correct) 7.13 L*, ABG pCO2 (Temp Corrct 26.3 L, ABG pO2 (Temp Correct 111.0 H, ABG HCO3 8.7 L, ABG Total CO2 9.5 L, ABG O2 Sat (Measured) 97.9 H, ABG Base Excess -18.9 L, Duncan Test Performed, Arterial/Alveolar Ratio 0.6 L, O2 Delivery Method Nasal cannula, FiO2 09/06/20 18:26: Urine Color Yellow, Urine Appearance Cloudy A, Urine pH 5.0, Ur Specific [place] 1.016, Urine Protein 30 mg/dl H, Urine Ketones Negative, Urine Blood Moderate A, Urine Nitrate Negative, Urine Bilirubin Negative, Urine Urobilinogen 0.2 eu/dl, Ur Tony kocyte Esterase Negative, Add Ur Microanalysis Microscopic added, Urine RBC 1-2, Urine WBC Occasional, Amorphous Sediment Mod amt urates, Urine Glucose Negative 09/06/20 18:50: Clerical Work Check No errors found, Pre-Trans Blood Type O Negative, Pre-Trans Vis Hemolysis None present, Pre-Trans XM Immed Spin 09/06/20 18:50: Post-Trans Blood Type O Negative, Post-Tx Visible Hemolys None present, Post-Trams XM Immed Spin , Post-Trans Ur Hemoglobin Yes, hgb present Microbiology 09/06/20 07:28 Urine,niadu cath Urine Culture - Final No growth. 09/06/20 07:15 Venous blood Blood Culture - Preliminary NO GROWTH AFTER 24 HOURS 09/06/20 07:15 Venous blood Blood Culture - Preliminary NO GROWTH AFTER 24 HOURS 09/06/20 07:15 Nasopharyngeal Respiratory Panel (PCR) - Final No Organisms Detected EKG Data -: EKG Interpreted by Me EKG shows normal: intervals and ST-T waves Rate: normal EKG Data EKG comments: Atrial fibrillation, ventricular rate 86/min, Q waves in leads III and aVF Radiology Data Radiology results: report reviewed Radiology impressions: Chest x-ray, CT head, CT C-spine, maxillofacial CT-no acute disease Medical Decision Making Free Text/Narative:: 3 PM-I discussed the patient with the hospitalist Dr. Zavala at [facility] in [place]. He accepted the patient for transfer ICU. He wants the patient to receive 1 amp of bicarb IV in addition to the bicarb infusion. He also wanted the patient to receive 2 units of FFP so that patient can get a dialysis catheter as soon as the patient arrives at [facility] 6 PM-patient is becoming more tachypneic and short of breath. His pulse ox has started to drop from 99% on 2 L nasal cannula to 97% on 2 L nasal cannula. A chest examination shows bilateral diffuse rales and rhonchi. He has put out about 200 mL of urine since arrival to the ED. I think he is getting fluid overloaded. We will stop his FFP and IV fluids/bicarb drip. I discussed again the patient with the hospitalist Dr. Ozuna at [facility] in [place]. He said patient can come to their ICU right away without receiving rest of his FFP. Patient's blood pressure at the time of transfer is 110s systolic. He appears to be in no respiratory distress. Differential Diagnosis Differential Diagnosis: Dehydration, sepsis, pneumonia, bleeding Critical Care Time Critical Care Time Critical Care Time: Yes ED Critical Care Time - [facility] One: 31-74 Minutes Total Critical Care Time: 60 Critical Care Time: Critical care time spent on evaluating and treating patient's hypotension and severe metabolic acidosis. Patient's hypotension is most likely from volume depletion due to nausea, poor p.o. intake and diarrhea. Patient's hypotension improved with IV fluids and Levophed. Patient's metabolic acidosis is most likely from acute kidney injury secondary to dehydration. Will start patient on bicarb infusion for severe metabolic acidosis. Patient wishes to be DNR/DNI but he is okay with the BiPAP if needed. Patient and his would like him to be transferred to [facility] in [place] if he has to be transferred out for higher level of care. Plan Visit Medications Administered ED medications:: Medications Discontinued Medications Generic Name Dose Route Start Last Admin Trade Name Freq PRN Reason Stop Dose Admin Acetaminophen 1,000 mg 09/06/20 16:00 09/06/20 16:15 Acetaminophen 500 Mg Tab PO 09/06/20 16:01 1,000 mg 1T ONE Administration Albuterol/Ipratropium 3 ml 09/06/20 16:37 09/06/20 16:46 Ipratropium/Albuterol Sulfate Amp (0.5-3 Mg/3 Ml) Nebs NEB 09/06/20 16:38 3 ml 1T ONE Administration Sodium Chloride 1,000 mls @ 1,000 mls/hr 09/06/20 06:57 09/06/20 08:10 Ns 0.9% IV 09/06/20 07:56 Infused .Q1H ONE Infusion Lactated Ringer's 1,000 mls @ 1,000 mls/hr 09/06/20 06:57 09/06/20 08:10 Lr IV 09/06/20 07:56 Infused .Q1H ONE Infusion Levofloxacin/Dextrose 750 mg in 150 mls @ 100 mls/hr 09/06/20 07:34 09/06/20 09:15 Levofloxacin 750 Mg/150 Ml-D5w IV 09/06/20 09:03 Infused ONCE ONE Infusion Sodium Chloride 1,000 mls @ 150 mls/hr 09/06/20 08:04 09/06/20 15:00 Ns 0.9% IV Infused .Q6H40M [place] Infusion Norepinephrine Bitartrate 4, 254 mls @ 9.073 mls/hr 09/06/20 08:04 09/06/20 16:38 000 mcg/ Dextrose IVC 09/07/20 12:03 0.13 mcg/kg/min TITR ONE 39.3 mls/hr Titration Protocol 0.03 MCG/KG/MIN Prothrombin Complex Concent (Human) 2,000 unit in 80 mls @ 571.529 mls/hr 09/06/20 08:24 09/06/20 09:06 Kcentra IV 09/06/20 08:32 Not Given 1T ONE 3 UNIT/KG/MIN Sodium Chloride 1,000 mls @ 999 mls/hr 09/06/20 08:25 09/06/20 09:37 Ns 0.9% IV 09/06/20 09:25 Infused .Q1H1M ONE Infusion Sodium Bicarbonate 150 meq/ 1,150 mls @ 200 mls/hr 09/06/20 09:31 09/06/20 16:02 Dextrose IV 09/06/20 15:15 0 mls/hr .Q5H45M ONE Infusion Sodium Chloride Confirm 09/06/20 14:04 09/06/20 15:44 Ns 0.9% Administered 09/06/20 14:05 100 mls/hr Dose Administration 250 mls @ as directed .ROUTE .STK-MED ONE Sodium Bicarbonate 200 meq/ 1,200 mls @ 150 mls/hr 09/06/20 14:11 09/06/20 17:47 Dextrose IV 09/06/20 22:10 Not Given .Q8H ONE Metoclopramide HCl 10 mg 09/06/20 07:43 09/06/20 08:08 Metoclopramide Hcl 10 Mg/2 Ml Sdv IVP 09/06/20 07:44 10 mg 1T ONE Administration Phytonadione 10 mg 09/06/20 08:23 09/06/20 08:37 Phytonadione (Vit K Inj) 10 Mg/Ml Amp SQ 09/06/20 08:52 10 mg 1T ONE Administration Sodium Bicarbonate 50 meq 09/06/20 15:22 09/06/20 15:46 Sodium Bicarbonate 8.4% 50 Ml Syr (Adults) IV 09/06/20 15:23 50 meq 1T ONE Administration Discharge Plan Admission/Discharge Dx Primary DC Diagnosis: Acute kidney injury, metabolic acidosis, hypotension, Coumadin toxicity ED Provider: Justice Mendez ED Status: Discharged Time Seen by Provider: 09/06/20 06:54 Triaged At: 09/06/20 06:41 Condition Condition: Stable Discharge Detail Disposition: Transfer - [facility] Med Rec New Prescriptions: No Action Eligard 7.5 mg (1 month) syringe 7.5 mg SQ [id number] RF: 0 lisinopril 5 mg tablet 5 mg PO DAILY Qty: 90 RF: 3 allopurinol 100 mg tablet 100 mg PO DAILY Qty: 90 RF: 3 omeprazole 20 mg capsule,delayed release(DR/EC) 20 mg PO QDAY Qty: 90 RF: 3 ferrous gluconate 324 mg (38 mg iron) tablet 324 mg PO DAILY Qty: 90 RF: 3 albuterol sulfate 90 mcg/actuation HFA aerosol inhaler 2 inh IH QID PRN (Reason: shortness of breath or wheezing) Qty: 8.5 RF: 0 rosuvastatin [Crestor] 20 mg tablet 20 mg PO DAILY Qty: 90 RF: 3 hydrocortisone [Anti-Itch (HC)] 1 % cream 1 applic TOP BID-QID PRN (Reason: itching) Qty: 30 RF: 3 warfarin 2 mg tablet 2 mg PO 2XW Qty: 15 RF: 2 acetaminophen [Tylenol] 325 MG tablet 650 mg [...] mg PO QDAY Qty: 30 RF: 0 folic acid 1 mg tablet 1 mg PO DAILY Qty: 90 RF: 3 *Discharge Patient* Discharge Date/Time: 09/06/20 18:43 Interventions Interventions: ED Patient Transfer Information Last Done: 09/06/20 18:39 ED General Adult Last Done: 09/06/20 07:28 Report Signers: <Electronically signed by Justice Mendez MD> Justice Mendez MD 09/07/20 0856 Justice Mendez MD SIGNATURE DA Report Cosigners: D: IVANIA 09/06/201051 T: IVANIA 09/06/201051 CC: Mayuri Guardado DO Name Value Range Interpretation Code Description Data Maribel rce(s) Supporting Document(s) ID Date Data Source [id number] 09/06/2020 10:52:00 AM EST [facility] [address] [place] [address] [phone] NAME SEX PT STATUS ACCOUNT NUMBER BRITTON GOMEZ [facility] ER [id number] ORDERING PHYSICIAN LOCATION MEDICAL RECORD NO. Justice Mendez MD ER [id number] ATTENDING PHYSICIAN DATE OF DATE OF EXAM/TIME [...] shielding. Reported By Nguyen Lawson MD on 09/06/201051 Signed By Nguyen Lawson MD on 09/06/20 105 Date Time CC: Mayuri Guardado DO; Nguyen Lawson MD Techn: MORSA Trans Dt/Tm: Trans by: DT Prt Dt/Tm: : Total DLP = 500.00 mGy-cm 1806-3139: Total Radiation Dose = 0.0000 mSv Lifetime Dose: 13.3893 mSv Name Value Range Interpretation Code Description Data Maribel rce(s) Supporting Document(s) ID Date Data Source [id number] 09/06/2020 09:44:00 AM [facility] [address] [place] [address] [phone] NAME SEX PT STATUS ACCOUNT NUMBER BRITTON GOMEZ [facility] ER [id number] ORDERING PHYSICIAN LOCATION MEDICAL RECORD NO. Justice Mendez MD ER [id number] ATTENDING PHYSICIAN DATE OF DATE OF EXAM/TIME [...] Mayuri Guardado DO; Nguyen Lawson MD Techn: MARILYNSA Trans D t/Tm: Trans by: DT Prt Dt/Tm: : Total DLP = 0.00 mGy-cm Fluoroscopy Time (in secs): Name Value Range Interpretation Code Description Data Maribel rce(s) Supporting Document(s) ID Date Data Source [id number] 09/06/2020 09:20:00 AM [facility] Oxygen Delivery Method Nasal Cannula7.02 @Review test & document. 7.02Called to @ 0919 by Sarahy Pulliam. Results readback.24.3 Name Value Range Interpretation Code Description Data Maribel rce(s) Supporting Document(s) Oxygen [Partial pressure] in Gas 106.0 mm[Hg] 74.0-100.0 Above high n ormal [facility] 96.46.3-23.0 Carbon dioxide, total [Moles/volume] in Arterial blood 7.1 mmol/ L 22.0-30.0 Below low normal [facility] 280.6Nasal Cannula@Reent manual test r esult:NASAL CANNULA@by Sarahy Pulliam at 09/06/20 09. Specimen site Narrative RIGHT RADIAL ARTERY [facility] @Reent manual test result: RIGHT RADAI L@by Sarahy Pulliam at 09/06/20919.Performed@Reenter manual test result: PEROFRMED@by Sarahy Pulliam at 09/06/20919. ID Date Data Source [id number] 09/07/2020 08:35:00 AM [facility] Name Value Range Interpretation Code Description Data [facility] rce(s) Supporting Document(s) Bacteria identified in Urine by Culture [facility] ID Date Data Source [id number] 09/06/2020 08:04:00 AM [facility] @09/06/20 0738: UA W/ MICRO added. RFLXG = UMIC.Method of Collection:: Cath Specimen @09/06/20 0738: UA W/ MICRO added. RFLXG = UMIC.Method of Collection:: Cath Specimen Name Value Range Interpretation Code Description Data [facility] rce(s) Supporting Document(s) Color of Urine [facility] Appearance of Urine CLEAR Abnormal (applies to non-nu meric results) [facility] pH of Urine by Test strip 5.0 5-8 [facility] Specific gravity of Urine by Refractometry 1.023 1.005-1.030 [facility] Leukocyte esterase [Presence] in Urine by Test strip NEGATIVE Above high normal [facility] @DO MICRO!!!! Nitrite [Presence] in Urine by Test strip NEGATIVE [facility] Protein [Presence] in Urine by Test strip NEGATIVE Above high normal [facility] @DO MICRO!!!! Glucose [Mass/volume] in Urine by Automated test strip NEGATIVE NEG ATIVE [facility] Ketones [Presence] in Urine by Test strip NEGATI VE Abnormal (applies to non- numeric results) [facility] Urobilinogen [Presence] in Urine 0.2-1 EU/dl [facility] Bilirubin.total [Presence] in Urine by Automated test strip NEGATIVE [facility] Erythrocytes [#/volume] in Urine by Test strip MODERATE N EGATIVE Above high normal [facility] @DO MICRO!!!! URINE MICROSCOPIC ADDED Microscopic Added [facility] ID Date Data Source [id number] 09/06/2020 08:04:00 AM [facility] @09/06/20 0738: UA W/ MICRO added. RFLXG = UMIC.Method of Collection:: Cath Specimen @09/06/20 0738: UA W/ MICRO added. RFLXG = UMIC.Method of Collection:: Cath Specimen Name Value Range Interpretation Code Description Data Maribel rce(s) Supporting Document(s) Erythrocytes [#/volume] in Urine by Manual count OCCASIONAL 0-5 [facility] Leukocytes [#/volume] in Urine by Manual count 1-2 /hpf 0-5 [facility] Amorphous sediment [Presence] in Urine sediment by Light microscopy [facility] ID Date Data Source [id number] 09/06/2020 07:53:00 AM [facility] Special Instructions: Lab may order repe at test if initial test elevatedPhysician If elevated, reflex second test in 4-6 hrs Anticoagulant or Thrombolytic medication : Heparin Name Value Range Interpretation Code Description Data Maribel rce(s) Supporting Document(s) Lactic w Rfx (if elevated) 1.1 mmol/L 0.5-2.0 N [facility] ID Date Data Source [id number] 09/06/2020 08:39:00 AM [facility] Special Instructions: Lab may order repe at test if initial test elevatedPhysician If elevated, reflex second test in 4-6 hrs Anticoagulant or Thrombolytic medication : Heparin Name Value Range Interpretation Code Description Data Maribel rce(s) Supporting Document(s) Prothrombin Time (Patient) Greater Than 90 9.6-12.3 Above high norm al [facility] @PT Greater than instrument linearity@Re port as greater than [address] MENDEZ @ 0837 by Gus Flores. Results readback.Repeated by: Gus Flores 09/06/20 0839.Result Confirmation: > 90 SECONDS INR Greater Than 9.8 0.9-1.1 No range defined, or normal ra nges don't apply [facility] @Review test & document.@Report as great er than linearityCalled to DR. MENDEZ @ 0837 by Gus Flores. Results readback.Repeated by: Gus Flores 09/06/20 0838.Result Confirmation: >9.8THE INR IS OPERATIONALLY DEFINED FOR FRESH PLASMA FROMPATIENTS STABILIZED ON ORAL ANTICOAGULANTS.ROUTINE ANTICOAGULANT THERAPY 2.0-3.0RECURRENT SYSTEMIC EMBOLISM/HEART VALVE REPLACEMENT 2.5-3.5 aPTT.lupus sensitive (LA screen) 86.5 s 22.7-31.6 No range defined, or normal ranges don't apply [facility] @Review test & document. []Called to AGUSTÍN Herrera @ 0819 by Gus Flores. Results readback.Repeated by: Gus Flores 09/06/20 0820.Result Confirmation: 86.5 SECONDS ID Date Data Source [id number] 09/11/2020 07:22:00 AM [facility] Special Instructions: Lab may order repe at test if initial test elevatedPhysician If elevated, reflex second test in 4-6 hrs Anticoagulant or Thrombolytic medication : Heparin Name Value Range Interpretation Code Description Data Maribel rce(s) Supporting Document(s) Bacteria identified in Blood by Culture [facility] NO GROWTH AFTER 5 DAYS ID Date Data Source [id number] 09/06/2020 08:53:00 AM [facility] THIS RP PANEL TESTS FOR SARS-CoV -2,(COVID-19)FilmArray Respiratory Panel is a Multiplexed NAAT-PCR testNORMAL VALUE FOR ALL 20 PATHOGENS IS "NOT DETECTED".The [employer] RP panel detects Influenza A H1,H3 [id number] H1 viruses,Influenza B virus, Respiratory syncytialvirus, Human [...] CLINICIAN EVALUATING THE PATIENT.THE PERFORMANCE OF THE [employer] RP HAS NOT BEEN ESTABLISHEDIN INDIVIDUALS WHO [...] rce(s) Supporting Document(s) ID Date Data Source [id number] 09/06/2020 07:26:00 AM EST [facility] Name Value Range Interpretation Code Description Data Maribel rce(s) Supporting Document(s) Leukocytes [#/volume] in Blood by Automated count 9.5 10*3/uL 4.45-10 .71 N [facility] Erythrocytes [#/volume] in Blood by Automated count 3.21 10*6/uL 4.3-6.1 Below low normal [facility] Hemoglobin [Moles/volume] in Blood 10.2 g/dL 13-18 Below low no rmal [facility] Hematocrit [Volume Fraction] of Blood by Automated count 30.7 % 42-52 Below low normal [facility] Erythrocyte mean corpuscular volume [Ent itic volume] in Cord blood by Automated count 95.6 fL 80-96 N [facility] ital Erythrocyte mean corpuscular hemoglobin [Entitic mass] by Automated count 31.8 pg 27-31 Above high normal [facility] spital Erythrocyte mean corpuscular hemoglobin concentration [Mass/volume] in Cord blood 33.2 g/dL 33-37 N [facility] ital Erythrocyte distribution width [Entitic volume] by Automated count 15 % 11-15 N [facility] Platelets [#/volume] in Blood by Automated count 129 10*3/uL 130-472 Below low normal [facility] Platelet mean volume [Entitic volume] in Blood 12.0 fL 9.1-13.1 N [facility] Neutrophils/100 leukocytes in Blood by Automated count 81.5 % 41-77 Above high normal [facility] Neutrophils [#/volume] in Blood by Automated count 7.7 U 1.7-7.6 Above high normal [facility] Lymphocytes/100 leukocytes in Blood by Automated count 9.0 % 14-46 Below low normal [facility] Lymphocytes [#/volume] in Blood by Automated count 0.9 U 0.6-4.6 N [facility] Monocytes/100 leukocytes in Blood by Automated count 7.3 % 4-12 N [facility] Monocytes [#/volume] in Blood by Automated count 0.7 U 0.2-1.2 N [facility] Eosinophils/100 leukocytes in Blood by Automated count 1.6 % 0-7 N [facility] Eosinophils [#/volume] in Blood by Automated count 0.2 U 0.0-0.5 N [facility] Basophils/100 leukocytes in Blood by Automated count 0.2 % 0.4-1.3 Below low normal [facility] Basophils [#/volume] in Blood by Automated count 0.0 U 0.0-0.2 N [facility] NUCLEATED RED BLOOD CELL 0 % [facility] NUCLEATED RED BLOOD CELL# 0 U [facility] Immature granulocytes [Presence] in Blood by Automated count 0-2 N [facility] Immature granulocytes [#/volume] in Blood by Automated count 0.0 U 0-0.1 N [facility] Manual Differential panel - Blood NO [facility] ID Date Data Source [id number] 09/06/2020 08:14:00 AM EST [facility] Name Value Range Interpretation Code Description Data Maribel rce(s) Supporting Document(s) Urea nitrogen [Mass/volume] in Serum or Plasma 131 mg/dL 9 -23 No range defined, or normal ranges don't apply [facility] @Review test & document. []Called to DR. MENDEZ @ 0807 by Gus Flores. Results readback.Repeated by: Gus Flores 09/06/20807.Result Confirmation: 132 mg/dL Sodium [Moles/volume] in Serum or Plasma 136 mmol/L 132-146 N [facility] Potassium [Moles/volume] in Serum or Plasma 4.3 mmol/L 3.5-5.5 N [facility] Chloride [Moles/volume] in Serum or Plasma 107 mmol/L 99-109 N [facility] Carbon dioxide, total [Moles/volume] in Serum or Plasma 7 mmol/L 20-31 No range defined, or normal ranges don't apply [facility] @Review test & document. []Called to DR. MENDEZ @ 0807 by Gus Flores. Results readback.Repeated by: Gus Flores 09/06/20807.Result Confirmation: 7 mmol/l Anion gap in Serum or Plasma 26 mmol/L 8-16 Above high normal [facility] Glucose [Mass/volume] in Serum or Plasma 93 mg/dL 74-106 N [facility] Creatinine 8.0 mg/dL 0.5-1.1 No range defined, or normal ranges d on't apply [facility] @Review test & document. []Called to DR. MENDEZ @ 0807 by Gus Flores. Results readback.Repeated by: Gus Flores 09/06/20807.Result Confirmation: 8.1 mg/dL Glomerular filtration rate/1.73 sq M.pre dicted [Volume Rate/Area] in Serum or Plasma 7 ml/min ABOVE 60 [facility] ital Alanine aminotransferase [Enzymatic acti vity/volume] in Serum or Plasma by With P-5'-P 13 U/L 10-49 N [facility] ital Aspartate aminotransferase [Enzymatic ac tivity/volume] in Serum or Plasma by With P-5'-P 9 U/L 0-33 N [facility] pital Alkaline phosphatase [Enzymatic activity/volume] in Serum or Plasma 114 U/L 45-129 N [facility] Calcium [Mass/volume] in Serum or Plasma 8.8 mg/dL 8.5-10. 1 No range defined, or normal ranges don't apply [facility] Repeated by: Gus Flores 09/06/20 08 14.Result Confirmation: 8.7 # mg/dL Bilirubin.total [Mass/volume] in Serum or Plasma 0.3 mg/dL 0.3-1.2 [facility] Albumin [Mass/volume] in Serum or Plasma by Bromocresol purple (BCP) dye binding method 3.1 g/dL 3.2-4.8 Below low normal [facility] Protein [Mass/volume] in Serum or Plasma 6.5 g/dL 5.7-8.2 [facility] ID Date Data Source [id number] 09/06/2020 08:14:00 AM [facility] Name Value Range Interpretation Code Description Data Maribel rce(s) Supporting Document(s) Troponin I.cardiac [Mass/volume] in Serum or Plasma 0.030 ng/mL 0.00- 0.09 [facility] Less than 0.09 NG/ML Negative0.10 - 0.77 NG/ML High Risk0.78 NG/ML or Greater PositiveThe WHO defined the cutoff (definition for diagnosis of ME)for this method as 0.78 ng/ml. ID Date Data Source [id number] 09/08/2020 10:05:00 AM [facility] ADD ON ADD ON Name Value Range Interpretation Code Description Data Maribel rce(s) Supporting Document(s) Phosphate [Mass/volume] in Serum or Plasma 8.8 mg/dL 2.4-5.1 Above high normal [facility] Repeated by: Ambar Ann 09/08/20 100 5.Result Confirmation: >9.0 mg/dL ID Date Data Source [id number] 09/08/2020 10:05:00 AM [facility] ADD ON ADD ON Name Value Range Interpretation Code Description Data Maribel rce(s) Supporting Document(s) Magnesium [Mass/volume] in Serum or Plasma 1.9 mg/dL 1.3-2.7 [facility] ID Date Data Source [id number] 09/06/2020 06:15:00 PM [facility] [id number] BP CONVALESCENT TRANSFUSED 09/06/20 1527 [id number] OP CONVALES[employer] TRANSFUSED 09/06/20 1658 Order product and Administer when availa ble: Y@ @Results at Enter/Edit Results as of 09/06/20 1501 ...@Test View Group: MOST RECENT COAG RESULTS@ LABORATORY@Date Time Test Result Flag Normal Range@09/06/20 0715 PT Greater Than 90 H 9.6-12.3 SECONDS@@@Called to DR. MENDEZ @ 0837 by Gus Flores. Results read@@back.@@Repeated by: Gus Flores 09/06/20 0839.@Result Confirmation: > 90 SECONDS@09/06/20 0715 PTT 86.5 !H 22.7- 31.6 SECONDS@@Called to CRISTOPHER Herrera @ 0819 by Gus Flores. Results read@back.@Repeated by: Gus Flores 09/06/20 0820.@Result Confirmation: 86.5 SECONDS@@ :: NTransfused within 90 days?: DONT KNOWPre Op? (IF Yes, give date): N Name Value Range Interpretation Code Description Data Maribel rce(s) Supporting Document(s) ID Date Data Source [id number] 09/06/2020 06:15:00 PM [facility] [id number] BP CONVALESCENT TRANSFUSED 09/06/20 1527 [id number] OP CONVALESCENT TRANSFUSED 09/06/20 1658 Order product and Administer when availa ble: Y@ @Results at Enter/Edit Results as of 09/06/20 1501 ...@Test View Group: MOST RECENT COAG RESULTS@ LABORATORY@Date Time Test Result Flag Normal Range@09/06/2015 PT Greater Than 90 H 9.6-12.3 SECONDS@@@Called to DR. MENDEZ @ 0837 by Gus Flores. Results read@@back.@@Repeated by: Gus Flores 09/06/20 0839.@Result Confirmation: > 90 SECONDS@09/06/20 0715 PTT 86.5 !H 22.7- 31.6 SECONDS@@Called to CRISTOPHER Herrera @ 0819 by Gus Flores. Results read@back.@Repeated by: Gus Flores 09/06/20 0820.@Result Confirmation: 86.5 SECONDS@@ :: NTransfused within 90 days?: DONT KNOWPre Op? (IF Yes, give date): N Name Value Range Interpretation Code Description Data Maribel rce(s) Supporting Document(s) Blood bank studies (set) Yes [facility] @ORDERED RETYPE MANUALLY - EMZ Blood Type [facility] Antibody Screen NEGATIVE [facility] ID Date Data Source [id number] 09/06/2020 06:58:00 AM EST [facility] ED Physician Documentation NAME: BRITTON GOMEZ : 1940 AGE: 80 MR#: [id number] SERVICE DATE: 09/06/[address]: Justice Mendez MD PRIMARY CARE DR: Mayuri Guardado DO ROOM#: HPI (Adult, General) General Chief Complaint: Multi system (Adult) Stated Complaint: WEAKNESS Time Seen by Provider: 09/06/20 06:54 History of Present Illness Narrative: 6:45AM: C : Gen physical weakness. Patient is an 25-avos-oqegfum , poor historian, c/o generalized physical weakness and diarrhea. Onset of this PI? Duration? Any Rx for this PI? EMS states original call was for neck pain. At scene patient was hypotensive conversing with EMS. classroom monitor atrial fibrillation. Rx IV NS and transported to ED by ambulance. Allergies/Home Meds Allergies Allergy/AdvReac Type Severity Reaction Status Date / Time No Known Drug Allergies Allergy Verified 09/06/20 07:58 Home Medications Medication Instructions Recorded Confirmed Last Taken T ype acetaminophen [Tylenol] 650 mg PO QID 03/15/16 08/16/20 08/10/20 12:30 History aspirin 81 mg PO DAILY #90 tabec 06/05/16 08/16/20 08/10/20 08:41 History Probiotic 1 ea PO DAILY #30 cap 02/12/17 08/16/20 08/09/20 History finasteride 5 mg PO DAILY #90 tab 08/19/17 08/16/20 08/10/20 08:38 History tamsulosin 1 tab PO DAILY #90 cap 08/19/17 08/16/20 08/10/20 08:38 History leuprolide 7.5 mg (1 month) 7.5 mg SQ [id number] each 12/09/19 08/16/20 08/02/19 History subcutaneous syringe metoprolol tartrate 12.5 mg PO BID MDD 1 12/09/19 08/16/20 08/10/20 08:39 History furosemide 40 mg tablet 40 mg PO BID #180 tab 12/22/19 08/16/20 08/10/20 05:41 Rx warfarin 3 mg tablet 3 mg PO QDAY #30 tab 02/10/20 08/16/20 Unknown Rx allopurinol 100 mg tablet 100 mg PO DAILY #90 tab 03/08/20 08/16/20 08/10/20 08:38 Rx ferrous gluconate 324 mg (38 mg 324 mg PO DAILY #90 tab 03/08/20 08/16/20 08/10/20 08:38 Rx iron) tablet lisinopril 5 mg tablet 5 mg PO DAILY #90 tab 03/08/20 08/16/20 08/10/20 08:41 Rx omeprazole 20 mg capsule,delayed 20 mg PO QDAY #90 cap 03/08/20 08/16/20 08/10/20 08:37 Rx release folic acid 1 mg tablet 1 mg PO DAILY #90 tab 08/04/20 01/06/21 12/31/20 08:38 Rx hydrocortisone 1 % topical cream 1 applic TOP BID-QID PRN #30 gm 05/16/20 08/16/20 Unknown Rx rosuvastatin 20 mg tablet 20 mg PO DAILY #90 tab 05/16/20 08/16/20 08/09/20 Rx 2310 albuterol sulfate 90 mcg/actuation 2 inh IH QID PRN #8.5 gm 07/11/20 08/16/20 Unknown Rx aerosol inhaler warfarin 2 mg tablet 2 mg PO 2XW #15 tab 08/15/20 08/16/20 Unknown Rx gemfibrozil 600 mg tablet 600 mg PO BID #180 tabs 09/05/20 Unknown Rx PMH (from Triage) Patient Medical History PMH Reviewed/Updated as Needed: Yes PMH/PSH from Triage: Medical History (Updated 08/18/20 @ 11:06 by Mayuri Guardado DO) Anemia (Medical) D64.9 Atrial fibrillation with controlled ventricular response (Medical) I48.91 Well controlled, follow up with environmental health technician Bleeding diathesis (Medical) D69.9 BPH w urinary obs/LUTS (Medical 08/19/17) N40.1, N13.8 Bradycardia (Medical) R00.1 Bug bite without infection (Medical) W57.XXXA Carpal tunnel syndrome on right (Medical 09/27/14) G56.01 Chronic atrial fibrillation (Medical 06/11/16) I48.2 Chronic renal failure (Medical) N18.9 Chronic renal impairment, stage 3 (moderate) (Medical 10/09/15) N18.3 CKD (chronic kidney disease) stage 3, GFR 30-59 ml/min (Medical) N18.3 Follow up with ring sewer Congestive heart failure (CHF) (Medical) I50.9 Well [...] bilat aortofem bypass Prostate nodule (Medical) N40.2 Scabies (Medical) B86 Seborrheic keratosis (Medical 09/26/16) L82.1 Skin sensation [...] No Hx Other Resistant Infection?: No Isolation: Droplet Hx Recent Travel Out of the country within 10 days (where): No Hx Fever: No Hx Fever with a rash?: No Nurse screening for coronavirus: Recent Travel outside the No country (where) Has patient experienced Yes coronavirus symptoms Coronavirus symptoms Shortness of breath,Nausea, vomiting or diarr,New experienced loss of taste or smel Social History Does patient have suicidal/homicidal thoughts or ideation?: No Are you in a relationship with/Does anyone hit you, yell/swear at you, steal from you?: No Substance Use Hx Alcohol Use: No Hx Substance Use: No Hx Substance Use Treatment: No Smoking Status: Former smoker Tobacco Use Years smoked:: 15 Hx Chewing Tobacco Use: No Vaccination History Hx/Date of Tetanus, Diphtheria Vaccination: Yes Hx/Date of Influenza Vaccination: Yes Hx/Date of Pneumococcal Vaccination: Yes [facility] Medical History Anemia Atrial fibrillation with controlled [...] ( 1989) History of - surgery ( 1967) History of - surgery ( 1957) History of - surgery ( 2014) History [...] Proxy: Yes Does Patient have a DNR?: Yes (verbal from and pt) Does Patient have a Living Will?: Yes Does the Patient have a MOLST?: No Advance Directives on File or in chart?: Yes Hx Recent Travel (where): No Smoking Status: Former smoker ROS Review of Systems Constitutional: Reports weakness (+ gen physical weakness.) and malaise; Denies fever Eyes: Denies vision change, eye discharge/drng, redness and eye pain ENT: Denies nasal pain, nasal discharge, nasal congestion, post nasal drip, epis taxis, throat pain and throat swelling Respiratory: Denies cough and SOB Cardiovascular: Reports hypertension and light headedness; Denies chest pain and dyspnea on exertion Gastrointestinal: Reports diarrhea; Denies vomiting, abdominal pain, black tarry stools and hematochezia Genitourinary-Male: Denies dysuria and hematuria Neurologic: Reports weakness (+ gen physical weakness.), dizziness and lightheadedness; Denies numbness, headache, incoordination, change in speech, confusion, vertigo and loss of consciousness Physical Exam General General appearance: other (Acutely ill-appearing elderly white male appears severely dehydrated. Mild pallor noted. No cyanosis, icterus, or diaphoresis. Alert. Patient knows name, place, year, and month.) Head Head exam: Present atraumatic, normocephalic and other (BP by me using regular adult cuff right brachial= 2 beats 60 systolic. ) Eye Eye exam: Absent scleral icterus, conjunctival injection, periorbital swelling and periorbital tenderness ENT ENT exam: Present mucous membranes dry and other (Lips are parched. Oral mucosa is dry.) Neck Neck exam: Absent tenderness Respiratory Respiratory exam: Present normal lung sounds bilaterally; Absent respiratory distress, wheezes, rales and rhonchi Cardiovascular Cardiovascular Exam: Present irregular rhythm and other (Old midline sternotomy scar. Irreg AHR 90/min. Heart sounds are barely audible. In the supine position jugular veins are not visible.); Absent S3 GI/Abdominal GI/Abdominal exam: Present Abd soft, bowel sounds present all quadrents and other (Obese.); Absent tenderness, organomegaly and mass Extremities Exam Extremities exam: Absent tenderness and pedal edema Neurological Exam Neurological exam: Present alert and other (Pupils equal. EOMI. No ptosis. No facial motor paresis. Tongue midline. Motor: Power all 4 extremities +4/5 bilaterally. (continued)) Vital Signs Vital Signs: Vital Signs 09/06/20 06:41 09/06/20 07:20 09/06/20 07:36 Temperature 97.5 F L Pulse Rate 110 H 82 Respiratory Rate 22 22 Blood Pressure 52/00 O2 Sat by Pulse Oximetry 88 L 92 L 98 09/06/20 07:38 09/06/20 07:58 09/06/20 08:01 Temperature Pulse Rate 88 90 Respiratory Rate 22 Blood Pressure 70/39 78/39 64/00 O2 Sat by Pulse Oximetry 96 09/06/20 08:19 09/06/20 08:22 09/06/20 08:45 Temperature 97.1 F L Pulse Rate 92 Respiratory Rate 20 Blood Pressure 58/38 58/38 78/00 O2 Sat by Pulse Oximetry 98 09/06/20 08:50 09/06/20 08:57 09/06/20 09:03 Temperature Pulse Rate 95 96 Respiratory Rate 22 20 Blood Pressure 72/40 72/42 84/50 O2 Sat by Pulse Oximetry 96 98 09/06/20 09:15 09/06/20 09:29 09/06/20 09:52 Temperature Pulse Rate 109 H Respiratory Rate 24 22 Blood Pressure 88/48 96/48 100/58 O2 Sat by Pulse Oximetry 98 09/06/20 10:05 09/06/20 10:30 09/06/20 11:13 Temperature Pulse Rate 114 H 111 H 107 H Respiratory Rate 18 22 Blood Pressure 100/60 92/00 92/58 O2 Sat by Pulse Oximetry 97 98 98 09/06/20 12:15 09/06/20 12:29 09/06/20 13:09 Temperature 97.0 F L Pulse Rate 110 H 105 H Respiratory Rate 22 20 Blood Pressure 128/60 128/60 122/43 O2 Sat by Pulse Oximetry 100 100 09/06/20 13:19 09/06/20 13:24 09/06/20 13:50 Temperature 97 F L Pulse Rate 109 H Respiratory Rate 22 Blood Pressure 118/66 98/56 90/42 O2 Sat by Pulse Oximetry 100 09/06/20 14:34 09/06/20 15:15 09/06/20 15:36 Temperature 96.9 F L 97.0 F L Pulse Rate 106 H 110 H Respiratory Rate 22 22 Blood Pressure 88/00 108/60 102/60 O2 Sat by Pulse Oximetry 99 98 09/06/20 15:54 09/06/20 16:38 09/06/20 16:46 Temperature 97.0 F L Pulse Rate 110 H 113 H Respiratory Rate 22 24 Blood Pressure 106/68 118/62 O 2 Sat by Pulse Oximetry 99 98 09/06/20 16:54 09/06/20 17:05 09/06/20 17:22 Temperature 97.3 F L 97.3 F L 97.3 F L Pulse Rate 117 H 114 H 108 H Respiratory Rate 24 24 24 Blood Pressure 116/60 122/82 114/78 O2 Sat by Pulse Oximetry 98 98 97 09/06/20 18:14 Temperature 97.3 F L Pulse Rate 111 H Respiratory Rate 24 Blood Pressure 114/64 O2 Sat by Pulse Oximetry 98 MDM (comprehensive) Lab Data Labs: 09/06/20 07:15 09/06/20 07:15 Microbiology 09/06/20 07:15 Venous blood Blood Culture - Preliminary NO GROWTH AFTER 48 HOURS 09/06/20 07:15 Venous blood Blood Culture - Preliminary NO GROWTH AFTER 48 HOURS 09/06/20 18:26 Urine,voided Urine Culture - Final 09/06/20 07:28 Urine,naidu cath Urine Culture - Final No growth. 09/06/20 07:15 Nasopharyngeal Respiratory Panel (PCR) - Final No Organisms Detected Medical Decision Making Free Text/Narative:: (Continuation of physical examination) Sensory: Withdraws proportional to power each of 4 extremities. DTRs: Biceps, triceps, patellar all absent bilaterally. Babinski's negative bilaterally. 7:05 AM: classroom monitor: Atrial fibrillation with controlled irregular ventricular response. My initial impression is hypotension secondary to severe intravascular volume depletion secondary to diarrhea and poor oral intake. Atrial fibrillation rate is well controlled. Patient is alert. Initial ED management consisted of IV NS 1000 ml over 1 hr. Ringers Lactate 1000 ml over 1 hr. Naidu for accurate urine output. Tests. 7:08 AM: Case signed out to Dr Mendez @ change of shift. Plan Visit Medications Administered ED medications:: Medications Discontinued Medications Generic Name Dose Route Start Last Admin Trade Name Joi PRN Reason Stop Dose Admin Acetaminophen 1,000 mg 09/06/20 16:00 09/06/20 16:15 Acetaminophen 500 Mg Tab PO 09/06/20 16:01 1,000 mg 1T ONE Administration Albuterol/Ipratropium 3 ml 09/06/20 16:37 09/06/20 16:46 Ipratropium/Albuterol Sulfate Amp (0.5-3 Mg/3 Ml) Nebs NEB 09/06/20 16:38 3 ml 1T ONE Administration Sodium Chloride 1,000 mls @ 1,000 mls/hr 09/06/20 06:57 09/06/20 08:10 Ns 0.9% IV 09/06/20 07:56 Infused .Q1H ONE Infusion Lactated Ringer's 1,000 mls @ 1,000 mls/hr 09/06/20 06:57 09/06/20 08:10 Lr IV 09/06/20 07:56 Infused .Q1H ONE Infusion Levofloxacin/Dextrose 750 mg in 150 mls @ 100 mls/hr 09/06/20 07:34 09/06/20 09:15 Levofloxacin 750 Mg/150 Ml-D5w IV 09/06/20 09:03 Infused ONCE ONE Infusion Sodium Chloride 1,000 mls @ 150 mls/hr 09/06/20 08:04 09/06/20 15:00 Ns 0.9% IV Infused .Q6H40M [place] Infusion Norepinephrine Bitartrate 4, 254 mls @ 9.073 mls/hr 09/06/20 08:04 09/06/20 16:38 000 mcg/ Dextrose IVC 09/07/20 12:03 0.13 mcg/kg/min TITR ONE 39.3 mls/hr Titration Protocol 0.03 MCG/KG/MIN Prothrombin Complex Concent (Human) 2,000 unit in 80 mls @ 571.529 mls/hr 09/06/20 08:24 09/06/20 09:06 Kcen tra IV 09/06/20 08:32 Not Given 1T ONE 3 UNIT/KG/MIN Sodium Chloride 1,000 mls @ 999 mls/hr 09/06/20 08:25 09/06/20 09:37 Ns 0.9% IV 09/06/20 09:25 Infused .Q1H1M ONE Infusion Sodium Bicarbonate 150 meq/ 1,150 mls @ 200 mls/hr 09/06/20 09:31 09/06/20 16:02 Dextrose IV 09/06/20 15:15 0 mls/hr .Q5H45M ONE Infusion Sodium Chloride Confirm 09/06/20 14:04 09/06/20 15:44 Ns 0.9% Administered 09/06/20 14:05 100 mls/hr Dose Administration 250 mls @ as directed .ROUTE .STK-MED ONE Sodium Bicarbonate 200 meq/ 1,200 mls @ 150 mls/hr 09/06/20 14:11 09/06/20 17:47 Dextrose IV 09/06/20 22:10 Not Given .Q8H ONE Metoclopramide HCl 10 mg 09/06/20 07:43 09/06/20 08:08 Metoclopramide Hcl 10 Mg/2 Ml Sdv IVP 09/06/20 07:44 10 mg 1T ONE Administration Phytonadione 10 mg 09/06/20 08:23 09/06/20 08:37 Phytonadione (Vit K Inj) 10 Mg/Ml Amp SQ 09/06/20 08:52 10 mg 1T ONE Administration Sodium Bicarbonate 50 meq 09/06/20 15:22 09/06/20 15:46 Sodium Bicarbonate 8.4% 50 Ml Syr (Adults) IV 09/06/20 15:23 50 meq 1T ONE Administration Discharge Plan Admission/Discharge Dx Primary DC Diagnosis: Acute kidney injury, metabolic acidosis, hypotension, Coumadin toxicity ED Provider: Justice Mendez ED Status: Discharged Time Seen by Provider: 09/06/20 06:54 Triaged At: 09/06/20 06:41 Condition Condition: Stable Discharge Detail Disposition: Transfer - [facility] Med Rec New Prescriptions: No Action Eligard 7.5 mg (1 month) syringe 7.5 mg SQ [id number] RF: 0 lisinopril 5 mg tablet 5 mg PO DAILY Qty: 90 RF: 3 allopurinol 100 mg tablet 100 mg PO DAILY Qty: 90 RF: 3 omeprazole 20 mg capsule,delayed release(DR/EC) 20 mg PO QDAY Qty: 90 RF: 3 ferrous gluconate 324 mg (38 mg iron) tablet 324 mg PO DAILY Qty: 90 RF: 3 albuterol sulfate 90 mcg/actuation HFA aerosol inhaler 2 inh IH QID PRN (Reason: shortness of breath or wheezing) Qty: 8.5 RF: 0 rosuvastatin [Crestor] 20 mg tablet 20 mg PO DAILY Qty: 90 RF: 3 hydrocortisone [Anti-Itch (HC)] 1 % cream 1 applic TOP BID-QID PRN (Reason: itching) Qty: 30 RF: 3 warfarin 2 mg tablet 2 mg PO 2XW Qty: 15 RF: 2 acetaminophen [Tylenol] 325 MG tablet 650 mg [...] mg PO QDAY Qty: 30 RF: 0 folic acid 1 mg tablet 1 mg PO DAILY Qty: 90 RF: 3 *Discharge Patient* Discharge Date/Time: 09/06/20 18:43 Interventions Interventions: ED Patient Transfer Information Last Done: 09/06/20 18:39 ED General Adult Last Done: 09/06/20 07:28 Report Signers: <Electronically signed by Norma Kitchen MD> Norma Kitchen MD 09/09/20 2232 Norma Kitchen MD SIGNATURE DA Report Cosigners: D: JULIOCESAR 09/06/2058 T: JULIOCESAR 09/06/20657 CC: Mayuri Guardado DO Name Value Range Interpretation Code Description Data Maribel rce(s) Supporting Document(s) ID Date Data Source [id number] 09/06/2020 12:00:00 AM EST [facility] Name Value Range Interpretation Code Description Data Maribel rce(s) Supporting Document(s) SARS-CoV2 Rapid PCR Not Detected [facility] This lab was ordered by [facility] and reported by [facility]. ID Date Data Source [id number] 08/16/2020 09:39:00 AM EST [facility] Patient Name: BRITTON GOMEZ : 1940 Sex: M Pt Unit #: [id number] Location:[facility] Provider: Visit Date/Time: 08/16/20 Primary Insurance: MEDICARE [employer] Secondary Insurance: AARP Intake Intake Visit Reasons: Telemed Visit Nurse [...] Friday. Does need warfarin 2mg refilled today. Trailer Chief Required: No Accompanied by: Is patient in [...] PO DAILY leuprolide (Eligard) 7.5 mg subcut [id number] lisinopril 5 mg PO DAILY metoprolol tartrate [...] Screening Screening Have you traveled outside of [facility] or [facility] in the last 14 days.: No Has patient experienced coronavirus symptoms: No [facility] Medical History (Updated 08/16/20 @ 10:23 by [...] under quarantine at home he does see environmental health technician for CAD, chf , atrial fibrillation; he needs a refill of warfarin 2mg he has been taking tylenol neck pain, but without much relief he agrees to go and see dr. denise alegria, scene painter in the past, he did go to physical therapy to increase muscle strength and range of motion he will be interested to go again when he has completed quarantine also, the steroid cream by fly raiser lockstitch improved patient's dermatitis he tried it a second time, but there not as good results he will f/u fly raiser lockstitch soon total time approx five minutes Assessment Plan Assessment Plan (1) Neck pain: Status: Acute Code(s): M54.2 - Cervicalgia SNOMED Code(s): 29141566 Category: Medical Plan - Mayuir Guardado, DO: needs improvement continue tylenol f/u pain management Orders: Referrals: Pain Management Referral (Dr Alegria) (2) Atrial fibrillation: Status: Chronic Comment: 08/10/20 INR was therapeutic for afib 2.1 Code(s): I48.91 - Unspecified atrial fibrillation SNOMED Code(s): 90762970 Category: Medical Qualifiers: Atrial fibrillation type: permanent Qualified Code(s): I48.2 - Chronic atrial fibrillation Plan - Mayuri Guardado, DO: stable refill warfarin 2mg repeat inr 1 month (3) Dermatitis: Status: Chronic Code(s): L30.9 - Dermatitis, unspecified SNOMED Code(s): 368674808 Category: Medical Plan - Mayuri Guardado, DO: needs improvement f/u fly raiser lockstitch Orders Instructions: A-fib (Atrial Fibrillation) (GEN) Time spent Total time spent on medical discussion: five minutes Coding Level of Care Code Telemed Visit (5-10 min) Diagnoses Neck pain M54.2 Atrial fibrillation I48.2 Atrial fibrillation type: permanent Dermatitis L30.9 <Electronically signed by Mayuri Guardado DO> 08/16/20 1026 Name Value Range Interpretation Code Description Data Maribel rce(s) Supporting Document(s) ID Date Data Source [id number] 08/14/2020 01:46:00 PM EST [facility]) Name Value Range Interpretation Code Description Data Maribel rce(s) Supporting Document(s) Testosterone [Mass/volume] in Serum or Plasma 16.61 ng/dL 300.00-1000 .00 [facility] ([facility] [place] ID Date Data Source [id number] 08/14/2020 01:46:00 PM EST [facility]) Name Value Range Interpretation Code Description Data Maribel rce(s) Supporting Document(s) Alanine aminotransferase [Enzymatic activity/volume] i n Serum or Plasma 13.0 U/L 0.0-55.0 [facility] ([facility] [place] Albumin [Mass/volume] in Serum or Plasma 4.5 g/dL 3.2-4.6 [facility] ([facility]) Aspartate aminotransferase [Enzymatic activity/volume] in Serum or Plasma 15.0 U/L 11.0-39.0 [facility]) Alkaline phosphatase [Enzymatic activity/volume] in Serum or Plasma 121.0 U/L 45.0-117.0 [facility]) Bilirubin.total [Mass/volume] in Serum or Plasma 0.3 mg/dL 0.0-1.2 [facility] ([facility]) Protein [Mass/volume] in Serum or Plasma 7.1 g/dL 6.4-8.3 [facility] ([facility]) Bilirubin.direct [Mass/volume] in Serum or Plasma 0.16 mg/dL 0.00-0.5 0 [facility] ([facility]) Globulin 2.6 [facility] [place] ID Date Data Source [id number] 08/14/2020 01:46:00 PM EST [facility]) Name Value Range Interpretation Code Description Data Maribel rce(s) Supporting Document(s) Prostate specific Ag [Mass/volume] in Serum or Plasma Labora tory test result 0.00-4.00 [facility]) ID Date Data Source [id number] 08/14/2020 01:29:00 PM EST [facility]) Name Value Range Interpretation Code Description Data Maribel rce(s) Supporting Document(s) Glucose [Presence] in Urine Laboratory test result [facility] ([facility]) Protein [Presence] in Urine by Test strip Laboratory test result [facility] ([facility]) Ua Leuko Laboratory test result [facility] ([facility]) Blood [Presence] in Urine by Visual Laboratory test result [facility] ([facility]) Ua Nitrite Laboratory test result [facility] ([facility]) Clarity of Urine Laboratory test result [facility] ([facility]) Color of Urine Laboratory test result [facility] ([facility]) Ketones [Presence] in Urine by Test strip Laboratory test result [facility] ([facility]) Bilirubin.total [Presence] in Urine by Test strip Laboratory test res ult [facility] ([facility] [place]) Ua Specific [place] 1.015 1.003-1.030 [facility] NT ([facility] [place]) pH of Urine by Test strip 5.0 5.0-7.5 [facility] ([facility] [place]) Urobilinogen [Mass/volume] in Urine by Test strip 0.2 E.U./dL 0.0-1.0 [facility] ([facility] [place]) ID Date Data Source [id number] 08/10/2020 05:27:00 PM [facility] Anticoagulant or Thrombolytic medication :: Heparin Name Value Range Interpretation Code Description Data Maribel rce(s) Supporting Document(s) Prothrombin Time (Patient) 21.6 s 9.6-12.3 Above high normal [facility] INR 2.1 0.9-1.1 Above high normal [facility] THE INR IS OPERATIONALLY DEFINED FOR PIPPA SH PLASMA FROMPATIENTS STABILIZED ON ORAL ANTICOAGULANTS.ROUTINE ANTICOAGULANT THERAPY 2.0-3.0RECURRENT SYSTEMIC EMBOLISM/HEART VALVE REPLACEMENT 2.5-3.5 ID Date Data Source [id number] 08/10/2020 04:49:00 PM [facility] Name: BRITTON GOMEZ : 1940 Age: 80 MR#: [id number] Admit Date: 08/09/20 Provider: Flaquito Nelson MD [...] % (Auto) 54.7, Lymph % (Auto) 28.9, [place] % (Auto) 10.6, Eos % (Auto) 4.8, [...] (1 month) subcutaneous syringe 7.5 mg SQ [id number] each 12/09/19 [History] metoprolol t artrate 12.5 [...] mg (1 month) syringe 7.5 mg SQ [id number] RF: 0 lisinopril 5 mg tablet 5 [...] MD SIGNATURE DA Report Cosigners: D: EFREN 08/10/20 1649 T: EFREN 08/10/201648 CC: Name Value Range Interpretation Code Description Data Maribel rce(s) Supporting Document(s) ID Date Data Source [id number] 08/10/2020 03:33:00 PM [facility] [address] [facility] [address] [place] [address] [phone] NAME SEX PT STATUS ACCOUNT NUMBER BRITTON GOMEZ DIS JOY [id number] ORDERING PHYSICIAN LOCATION MEDICAL RECORD NO. Jael NICOLE [facility] [id number] ATTENDING PHYSICIAN DATE OF DATE OF EXAM/TIME Mayuri Guardado DO 1940 08/10/20 / 1000 TYPE / EXAM US Echo complete REASON [...] Mayuri Guardado DO; Bernardo Garnett M.D. Techn: BUSMI Trans Dt/Tm: 08/10/20 1612 Trans by: WESLEY Prt Dt/Tm: 5083-3155: Total DLP = 0.00 mGy-cm 9834-8497: Total Radiation Dose = 0.0000 mSv Lifetime Dose: 10.6737 mSv Name Value Range Interpretation Code Description Data Maribel rce(s) Supporting Document(s) ID Date Data Source [id number] 08/10/2020 10:38:00 AM EST [facility] ([facility] Name Value Range Interpretation Code Description Data Maribel rce(s) Supporting Document(s) Creatinine [Mass/volume] in Serum or Plasma 3.0 0.5-1.1 [facility] ([facility] Urea nitrogen [Mass/volume] in Serum or Plasma 70 9-23 [facility] ID Date Data Source [id number] 08/10/2020 10:38:00 AM EST [facility] ([facility] Name Value Range Interpretation Code Description Data Maribel rce(s) Supporting Document(s) Hematocrit [Volume Fraction] of Blood by Automated count 33.8 4 2-52 [facility] ([facility] ID Date Data Source [id number] 08/10/2020 10:17:00 AM EST [facility] Name: BRITTON GOMEZ : 1940 Age: 80 MR#: [id number] Admit Date: 08/09/20 Provider: Shekhar Louis MD [...] 08/09/20 18:05 Observation Order [STATUS] Routine Location: [facility] Primary diagnosis: Chest pain Isolation: Standard [...] % (Auto) 59.8, Lymph % (Auto) 24.3, [place] % (Auto) 10.7, Eos % (Auto) 4.2, [...] % (Auto) 54.7, Lymph % (Auto) 28.9, [place] % (Auto) 10.6, Eos % (Auto) 4.8, Baso % (Auto) 0.8, Lymph # (Auto) 1.5, Abs Immat Gran (auto) 0.0, Add Manual Diff No, Absolute Neutrophils 2.8, Monocytes # 0.5, Absolute Eosinophils 0.2, Absolute Basophils 0.0 08/10/20 07:13: POC Glucose 101 Microbiology 08/09/20 15:23 Nasopharyngeal Respiratory Panel (PCR) [...] rce(s) Supporting Document(s) ID Date Data Source [id number] 08/10/2020 06:10:00 AM [facility] Name Value Range Interpretation Code Description Data Maribel rce(s) Supporting Document(s) Urea nitrogen [Mass/volume] in Serum or Plasma 70 mg/dL 9-23 Above high normal [facility] Sodium [Moles/volume] in Serum or Plasma 142 mmol/L 132-146 N [facility] Potassium [Moles/volume] in Serum or Plasma 4.1 mmol/L 3.5-5.5 N [facility] Chloride [Moles/volume] in Serum or Plasma 112 mmol/L 99-109 Above high normal [facility] Carbon dioxide, total [Moles/volume] in Serum or Plasma 22 mmol/L 20 -31 N [facility] Anion gap in Serum or Plasma 12 mmol/L 8-16 N [facility] Glucose [Mass/volume] in Serum or Plasma 98 mg/dL 74-106 N [facility] Creatinine 3.0 mg/dL 0.5-1.1 Above high normal [facility] Glomerular filtration rate/1.73 sq M.pre dicted [Volume Rate/Area] in Serum or Plasma 20 ml/min ABOVE 60 [facility] ital Alanine aminotransferase [Enzymatic acti vity/volume] in Serum or Plasma by With P-5'-P 13 U/L 10-49 N [facility] ital Aspartate aminotransferase [Enzymatic ac tivity/volume] in Serum or Plasma by With P-5'-P 18 U/L 0-33 N [facility] pital Alkaline phosphatase [Enzymatic activity/volume] in Serum or Plasma 121 U/L 45-129 [facility] Calcium [Mass/volume] in Serum or Plasma 10.1 mg/dL 8.5-10.1 [facility] Bilirubin.total [Mass/volume] in Serum or Plasma 0.2 mg/dL 0.3-1.2 Below low normal [facility] Albumin [Mass/volume] in Serum or Plasma by Bromocresol purple (BCP) dye binding method 3.5 g/dL 3.2-4.8 N [facility] ital Protein [Mass/volume] in Serum or Plasma 7.2 g/dL 5.7-8.2 [facility] ID Date Data Source [id number] 08/10/2020 06:10:00 AM EST [facility] Name Value Range Interpretation Code Description Data Maribel rce(s) Supporting Document(s) Troponin I.cardiac [Mass/volume] in Serum or Plasma Less Than 0.015 0.00-0.09 N [facility] Less than 0.09 NG/ML Negative0.10 - 0.77 NG/ML High Risk0.78 NG/ML or Greater PositiveThe WHO defined the cutoff (definition for diagnosis of ME)for this method as 0.78 ng/ml. ID Date Data Source [id number] 08/10/2020 05:14:00 AM EST [facility] Name Value Range Interpretation Code Description Data Maribel rce(s) Supporting Document(s) Leukocytes [#/volume] in Blood by Automated count 5.0 10*3/uL 4.45-10 .71 N [facility] Erythrocytes [#/volume] in Blood by Automated count 3.39 10*6/uL 4.3-6.1 Below low normal [facility] Hemoglobin [Moles/volume] in Blood 11.0 g/dL 13-18 Below low no rmal [facility] Hematocrit [Volume Fraction] of Blood by Automated count 33.8 % 42-52 Below low normal [facility] Erythrocyte mean corpuscular volume [Ent itic volume] in Cord blood by Automated count 99.7 fL 80-96 Above high normal [facility] Erythrocyte mean corpuscular hemoglobin [Entitic mass] by Automated count 32.4 pg 27-31 Above high normal [facility] spital Erythrocyte mean corpuscular hemoglobin concentration [Mass/volume] in Cord blood 32.5 g/dL 33-37 Below low normal [facility] Erythrocyte distribution width [Entitic volume] by Automated count 14 % 11-15 N [facility] Platelets [#/volume] in Blood by Automated count 130 10*3/uL 130-472 N [facility] Platelet mean volume [Entitic volume] in Blood 10.9 fL 9.1-13.1 N [facility] Neutrophils/100 leukocytes in Blood by Automated count 54.7 % 41- 77 N [facility] Neutrophils [#/volume] in Blood by Automated count 2.8 U 1.7-7.6 [facility] Lymphocytes/100 leukocytes in Blood by Automated count 28.9 % 14- 46 N [facility] Lymphocytes [#/volume] in Blood by Automated count 1.5 U 0.6-4.6 [facility] Monocytes/100 leukocytes in Blood by Automated count 10.6 % 4-12 N [facility] Monocytes [#/volume] in Blood by Automated count 0.5 U 0.2-1.2 N [facility] Eosinophils/100 leukocytes in Blood by Automated count 4.8 % 0-7 N [facility] Eosinophils [#/volume] in Blood by Automated count 0.2 U 0.0-0.5 N [facility] Basophils/100 leukocytes in Blood by Automated count 0.8 % 0.4-1 .3 N [facility] Basophils [#/volume] in Blood by Automated count 0.0 U 0.0-0.2 N [facility] NUCLEATED RED BLOOD CELL 0 % [facility] NUCLEATED RED BLOOD CELL# 0 U [facility] Immature granulocytes [Presence] in Blood by Automated count 0-2 N [facility] Immature granulocytes [#/volume] in Blood by Automated count 0.0 U 0-0.1 N [facility] Manual Differential panel - Blood NO [facility] ID Date Data Source [id number] 08/09/2020 11:18:00 PM EST [facility] Name Value Range Interpretation Code Description Data Maribel rce(s) Supporting Document(s) Troponin I.cardiac [Mass/volume] in Serum or Plasma Less Than 0.015 0.00-0.09 [facility] Less than 0.09 NG/ML Negative0.10 - 0.77 NG/ML High Risk0.78 NG/ML or Greater PositiveThe WHO defined the cutoff (definition for diagnosis of ME)for this method as 0.78 ng/ml. ID Date Data Source [id number] 08/09/2020 07:27:00 PM EST [facility] [address] [place] [address] [phone] NAME SEX PT STATUS ACCOUNT NUMBER BRITTON GOMEZ Asha ADM JOY [id number] ORDERING PHYSICIAN LOCATION MEDICAL RECORD NO. Jael Looney [id number] ATTENDING PHYSICIAN DATE OF DATE OF EXAM/TIME DebbyMayuri 1940 08/09/201915 TYPE / EXAM US Carotid [...] rce(s) Supporting Document(s) ID Date Data Source [id number] 08/09/2020 07:21:00 PM EST [facility] [address] [place] [address] [phone] NAME SEX PT STATUS ACCOUNT NUMBER BRITTON GOMEZ ADM JOY [id number] ORDERING PHYSICIAN LOCATION MEDICAL RECORD NO. Jael Looney [id number] ATTENDING PHYSICIAN DATE OF DATE OF EXAM/TIME [...] rce(s) Supporting Document(s) ID Date Data Source [id number] 08/09/2020 06:45:00 PM [facility] Name: BRITTON GOMEZ : 1940 Age: 80 MR#: [id number] Admit Date: 08/09/20 Provider: Jael Looney Room [...] followed by Dr. Alex Bearden (Cardiology), a ring sewer in [place], and Dr. Sampson in [place] for his prostate. Work up in the [...] 7.5 mg (1 month) 7.5 mg SQ [id number] each 12/09/19 06/23/20 08/02/19 History subcutaneous syringe [...] % (Auto) 59.8, Lymph % (Auto) 24.3, [place] % (Auto) 10.7, Eos % (Auto) 4.2, [...] habitus Orientation: alert, awake and oriented x3 HENMT [...] been well- controlled recently; patient saw his environmental health technician last week and no changes were made [...] and had a f/u with dermatology and life specialist - Recently had scabies that was treated [...] Shekhar Louis MD> Shekhar Louis MD 08/10/20 130 D: BERENICE 08/09/201844 T: BERENICE 08/09/201844 CC: Name Value Range Interpretation Code Description Data Maribel rce(s) Supporting Document(s) ID Date Data Source [id number] 08/09/2020 05:14:00 PM [facility] [address] [place] [address] [phone] NAME SEX PT STATUS ACCOUNT NUMBER BRITTON GOMEZ [facility] ER [id number] ORDERING PHYSICIAN LOCATION MEDICAL RECORD NO. Carlos Galvin MD ER [id number] ATTENDING PHYSICIAN DATE OF DATE OF EXAM/TIME Mayuri Guardado DO 1940 08/09/201539 TYPE / EXAM [...] shoulder. REPORT SIGNATURE ON FILE 08/09/2020 (17:14 Time ) Signed by: Krystyna Weir M.D., [facility] Reported By Krystyna Weir MD on 08/09/201713 Signed By Krystyna Weir MD on 08/09/201713 Date Time CC: Mayuri Guardado DO; Krystyna Weir MD Techn: EBEBR Trans Dt/Tm: Trans by: DT Prt Dt/Tm: 1230- 0042: Total DLP = 0.00 mGy-cm Fluoroscopy Time (in secs): Name Value Range Interpretation Code Description Data Maribel rce(s) Supporting Document(s) ID Date Data Source [id number] 08/09/2020 07:37:00 PM [facility] Name Value Range Interpretation Code Description Data Maribel rce(s) Supporting Document(s) Thyrotropin [Units/volume] in Serum or Plasma by Detec tion limit <= 0.005 mIU/L 2.99 u[iU]/mL 0.35-5.50 [facility] ID Date Data Source [id number] 08/09/2020 04:11:00 PM [facility] Name Value Range Interpretation Code Description Data Maribel rce(s) Supporting Document(s) Leukocytes [#/volume] in Blood by Automated count 5.1 10*3/uL 4.45-10 .71 N [facility] Erythrocytes [#/volume] in Blood by Automated count 3.57 10*6/uL 4.3-6.1 Below low normal [facility] Hemoglobin [Moles/volume] in Blood 11.6 g/dL 13-18 Below low no rmal [facility] Hematocrit [Volume Fraction] of Blood by Automated count 36.1 % 42-52 Below low normal [facility] Erythrocyte mean corpuscular volume [Ent itic volume] in Cord blood by Automated count 101.1 fL 80-96 Above high normal [facility] Erythrocyte mean corpuscular hemoglobin [Entitic mass] by Automated count 32.5 pg 27-31 Above high normal [facility] spital Erythrocyte mean corpuscular hemoglobin concentration [Mass/volume] in Cord blood 32.1 g/dL 33-37 Below low normal [facility] Erythrocyte distribution width [Entitic volume] by Automated count 14 % 11-15 N [facility] Platelets [#/volume] in Blood by Automated count 148 10*3/uL 130-472 N [facility] Platelet mean volume [Entitic volume] in Blood 11.5 fL 9.1-13.1 N [facility] Neutrophils/100 leukocytes in Blood by Automated count 59.8 % 41- 77 N [facility] Neutrophils [#/volume] in Blood by Automated count 3.0 U 1.7-7.6 N [facility] Lymphocytes/100 leukocytes in Blood by Automated count 24.3 % 14- 46 N [facility] Lymphocytes [#/volume] in Blood by Automated count 1.2 U 0.6-4.6 N [facility] Monocytes/100 leukocytes in Blood by Automated count 10.7 % 4-12 N [facility] Monocytes [#/volume] in Blood by Automated count 0.5 U 0.2-1.2 N [facility] Eosinophils/100 leukocytes in Blood by Automated count 4.2 % 0-7 N [facility] Eosinophils [#/volume] in Blood by Automated count 0.2 U 0.0-0.5 N [facility] Basophils/100 leukocytes in Blood by Automated count 0.8 % 0.4-1 .3 N [facility] Basophils [#/volume] in Blood by Automated count 0.0 U 0.0-0.2 N [facility] NUCLEATED RED BLOOD CELL 0 % [facility] NUCLEATED RED BLOOD CELL# 0 U [facility] Immature granulocytes [Presence] in Blood by Automated count 0-2 N [facility] Immature granulocytes [#/volume] in Blood by Automated count 0.0 U 0-0.1 N [facility] Manual Differential panel - Blood NO [facility] ID Date Data Source [id number] 08/09/2020 04:41:00 PM EST [facility] Name Value Range Interpretation Code Description Data Maribel rce(s) Supporting Document(s) Urea nitrogen [Mass/volume] in Serum or Plasma 70 mg/dL 9-23 Above high normal [facility] Sodium [Moles/volume] in Serum or Plasma 142 mmol/L 132-146 N [facility] Potassium [Moles/volume] in Serum or Plasma 4.8 mmol/L 3.5-5.5 N [facility] Chloride [Moles/volume] in Serum or Plasma 111 mmol/L 99-109 Above high normal [facility] Carbon dioxide, total [Moles/volume] in Serum or Plasma 22 mmol/L 20 -31 N [facility] Anion gap in Serum or Plasma 14 mmol/L 8-16 N [facility] Glucose [Mass/volume] in Serum or Plasma 103 mg/dL 74-106 N [facility] Creatinine 3.2 mg/dL 0.5-1.1 Above high normal [facility] Glomerular filtration rate/1.73 sq M.pre dicted [Volume Rate/Area] in Serum or Plasma 19 ml/min ABOVE 60 [facility] ital Alanine aminotransferase [Enzymatic acti vity/volume] in Serum or Plasma by With P-5'-P 15 U/L 10-49 N [facility] ital Aspartate aminotransferase [Enzymatic ac tivity/volume] in Serum or Plasma by With P-5'-P 13 U/L 0-33 N [facility] pital Alkaline phosphatase [Enzymatic activity/volume] in Serum or Plasma 131 U/L 45-129 Above high normal [facility] Calcium [Mass/volume] in Serum or Plasma 10.0 mg/dL 8.5-10.1 [facility] Bilirubin.total [Mass/volume] in Serum or Plasma 0.2 mg/dL 0.3-1.2 Below low normal [facility] Albumin [Mass/volume] in Serum or Plasma by Bromocresol purple (BCP) dye binding method 3.7 g/dL 3.2-4.8 [facility] ital Protein [Mass/volume] in Serum or Plasma 7.7 g/dL 5.7-8.2 [facility] ID Date Data Source [id number] 08/09/2020 04:41:00 PM [facility] Name Value Range Interpretation Code Description Data Maribel rce(s) Supporting Document(s) Troponin I.cardiac [Mass/volume] in Serum or Plasma Less Than 0.015 0.00-0.09 [facility] Less than 0.09 NG/ML Negative0.10 - 0.77 NG/ML High Risk0.78 NG/ML or Greater PositiveThe WHO defined the cutoff (definition for diagnosis of ME)for this method as 0.78 ng/ml. ID Date Data Source [id number] 08/09/2020 03:38:00 PM [facility] ED Physician Documentation NAME: BRITTON GOMEZ : 1940 AGE: 80 MR#: [id number] SERVICE DATE: 08/09/[address]: Carlos Galvin [...] 7.5 mg (1 month) 7.5 mg SQ [id number] each 12/09/19 06/23/20 08/02/19 History subcutaneous syringe [...] (Medical) I48.91 Well controlled, follow up with environmental health technician Bleeding diathesis (Medical) D69.9 BPH w urinary obs/LUTS (Medical 08/19/17) N40.1, N13.8 Bradycardia (Medical) R00.1 Bug bite without infection (Medical) W57.XXXA Carpal tunnel syndrome on right (Medical 09/27/14) G56.01 Chronic atrial fibrillation (Medical 06/11/16) I48.2 Chronic renal failure (Medical) N18.9 Chronic renal impairment, stage 3 (moderate) (Medical 10/09/15) N18.3 CKD (chronic kidney disease) stage 3, GFR 30-59 ml/min (Medical) N18.3 Follow up with ring sewer Congestive heart failure (CHF) (Medical) I50.9 Well [...] % (Auto) 59.8, Lymph % (Auto) 24.3, [place] % (Auto) 10.7, Eos % (Auto) 4.2, [...] rce(s) Supporting Document(s) ID Date Data Source [id number] 08/09/2020 04:32:00 PM [facility] THIS RP PANEL TESTS FOR SARS-CoV -2,(COVID-19)FilmArray Respiratory Panel is a Multiplexed NAAT-PCR testNORMAL VALUE FOR ALL 20 PATHOGENS IS "NOT DETECTED".The [employer] RP panel detects Influenza A H1,H3 [id number] H1 viruses,Influenza B virus, Respiratory syncytialvirus, Human [...] rce(s) Supporting Document(s) ID Date Data Source [id number] 08/09/2020 12:00:00 AM EST [facility] Name Value Range Interpretation Code Description Data Maribel rce(s) Supporting Document(s) [facility] by [facility] and reported by [facility]. ID Date Data Source [id number] 07/26/2020 11:07:00 AM [facility] Name Value Range Interpretation Code Description Data Maribel rce(s) Supporting Document(s) Leukocytes [#/volume] in Blood by Automated count 5.1 10*3/uL 4.45-10 .71 N [facility] Erythrocytes [#/volume] in Blood by Automated count 3.50 10*6/uL 4.3-6.1 Below low normal [facility] Hemoglobin [Moles/volume] in Blood 11.3 g/dL 13-18 Below low no rmal [facility] Hematocrit [Volume Fraction] of Blood by Automated count 35.8 % 42-52 Below low normal [facility] Erythrocyte mean corpuscular volume [Ent itic volume] in Cord blood by Automated count 102.3 fL 80-96 Above high normal [facility] Erythrocyte mean corpuscular hemoglobin [Entitic mass] by Automated count 32.3 pg 27-31 Above high normal [facility] spital Erythrocyte mean corpuscular hemoglobin concentration [Mass/volume] in Cord blood 31.6 g/dL 33-37 Below low normal [facility] Erythrocyte distribution width [Entitic volume] by Automated cou nt 17 % 11-15 Above high normal [facility] Platelets [#/volume] in Blood by Automated count 147 10*3/uL 130-472 N [facility] Platelet mean volume [Entitic volume] in Blood 10.6 fL 9.1-13.1 N [facility] Neutrophils/100 leukocytes in Blood by Automated count 60.8 % 41- 77 N [facility] Neutrophils [#/volume] in Blood by Automated count 3.1 U 1.7-7.6 N [facility] Lymphocytes/100 leukocytes in Blood by Automated count 23.7 % 14- 46 N [facility] Lymphocytes [#/volume] in Blood by Automated count 1.2 U 0.6-4.6 N [facility] Monocytes/100 leukocytes in Blood by Automated count 10.2 % 4-12 N [facility] Monocytes [#/volume] in Blood by Automated count 0.5 U 0.2-1.2 N [facility] Eosinophils/100 leukocytes in Blood by Automated count 4.3 % 0-7 N [facility] Eosinophils [#/volume] in Blood by Automated count 0.2 U 0.0-0.5 N [facility] Basophils/100 leukocytes in Blood by Automated count 0.8 % 0.4-1 .3 N [facility] Basophils [#/volume] in Blood by Automated count 0.0 U 0.0-0.2 N [facility] NUCLEATED RED BLOOD CELL 0 % [facility] NUCLEATED RED BLOOD CELL# 0 U [facility] Immature granulocytes [Presence] in Blood by Automated count 0-2 N [facility] Immature granulocytes [#/volume] in Blood by Automated count 0.0 U 0-0.1 N [facility] Manual Differential panel - Blood NO [facility] ID Date Data Source [id number] 07/12/2020 10:20:00 AM EST [facility] Name Value Range Interpretation Code Description Data Maribel rce(s) Supporting Document(s) IRON 82 ug/dl 65-175 [facility] TIBC 306 ug/dl 250-450 [facility] %SAT 27 % [facility] FERRITIN 406 ng/ml 26-388 Above high normal [facility] ID Date Data Source [id number] 07/12/2020 10:20:00 AM EST [facility] ID Date Data Source [id number] 07/12/2020 10:20:00 AM EST [facility] pert[facility] [...] not be used for medication dosing. Follow instant print operator's instructions for medication dosing.Age (Years) Average GFR 20 - 29 116 mL/min/1.73m 30 - 39 107 mL/min/1.73m 40 - 49 99 mL/min/1.73m 50 - 59 93 mL/min/1.73m 60 - 69 85 mL/min/1.73m 70 + 75 mL/min/1.73m ID Date Data Source [id number] 07/12/2020 09:05:00 AM EST [facility] ([facility] Name Value Range Interpretation Code Description Data Maribel rce(s) Supporting Document(s) Iron 82 65-175 [facility] Tibc % Saturation 27 [facility] Iron binding capacity [Mass/volume] in Serum or Plasma 306 [facility]) ID Date Data Source [id number] 07/12/2020 09:05:00 AM EST [facility] ([facility] Name Value Range Interpretation Code Description Data Maribel rce(s) Supporting Document(s) White Blood Count 4.5 4.1-11.0 [facility]) Platelets 164 143-377 [facility] Red Blood Count 3.1 4.1-5.5 [facility] Hemoglobin 10.0 12.5-17.9 [facility]) Hematocrit 30.5 36.5-50.1 [facility]) ID Date Data Source [id number] 07/12/2020 09:05:00 AM EST [facility] Name Value Range Interpretation Code Description Data Maribel rce(s) Supporting Document(s) Creatinine 3.6 0.8-1.3 [facility]) Glucose 113 74-106 [facility] Blood Urea Nitrogen 78 7-18 [facility] ([facility] Potassium 4.7 3.6-5.2 [facility] Glomerular filtration rate/1.73 sq M.pre dicted [Volume Rate/Area] in Serum or Plasma by Creatinine-based formula (MDRD) 17.4 [facility] ([facility]) Sodium 139 136-145 [facility] Carbon Dioxide 19 21-32 [facility] Chloride 107 100-108 [facility] Albumin 3.8 3.4-5.0 [facility] Calcium 9.5 8.5-10.2 [facility] Phosphorus 4.0 [facility]) ID Date Data Source [id number] 07/11/2020 10:48:00 AM EST [facility] Patient Name: BRITTON GOMEZ : 1940 Sex: M Pt Unit #: [id number] Location:[facility]. Provider: Visit Date/Time: 07/11/20 Primary Insurance: MEDICARE [employer] Secondary Insurance: A[employer] Intake Vital Signs 07/11/20 10:50 Current Height [...] appointment Friday to see dematologist here at [facility]. Trailer Chief Required: No Accompanied by: Allergies No Known [...] PO DAILY leuprolide (Eligard) 7.5 mg subcut [id number] lisinopril 5 mg PO DAILY metoprolol tartrate [...] Screening Screening Have you traveled outside of [facility] or [facility] in the last 14 days.: No Has patient experienced coronavirus symptoms: No [facility] Medical History (Updated 12/01/20 @ 17:07 by Mayuri Guardado DO) Anemia [...] y/o male is with has already seen life specialist, not allergic to environmental, pets, foods, dust [...] Plan Assessment Plan (1) Hypertension: SNOMED Code(s): 96082207 Category: Medical Plan - Mayuri Guardado DO: stable continue current medical treatment f/u 3 months (2) Scabies: Status: Acute Code(s): B86 - Scabies SNOMED Code(s): 389361169 Category: Medical Plan - Mayuri Guardado DO: [...] <Electronically signed by Mayuri Guardado DO> 07/11/20 1708 Name Value Range Interpretation Code Description Data Maribel rce(s) Supporting Document(s) ID Date Data Source [id number] 07/07/2020 10:45:00 AM EST [facility] Name Value Range Interpretation Code Description Data Maribel rce(s) Supporting Document(s) Prothrombin Time (Patient) 25.6 s 9.6-12.3 Above high normal [facility] INR 2.5 0.9-1.1 Above high normal [facility] THE INR IS OPERATIONALLY DEFINED FOR PIPPA SH PLASMA FROMPATIENTS STABILIZED ON ORAL ANTICOAGULANTS.ROUTINE ANTICOAGULANT THERAPY 2.0-3.0RECURRENT SYSTEMIC EMBOLISM/HEART VALVE REPLACEMENT 2.5-3.5 ID Date Data Source [id number] 06/30/2020 11:55:00 AM EST [facility] Name Value Range Interpretation Code Description Data Maribel rce(s) Supporting Document(s) Prothrombin Time (Patient) 39.2 s 9.6-12.3 Above high normal [facility] INR 3.9 0.9-1.1 Above high normal [facility] THE INR IS OPERATIONALLY DEFINED FOR PIPPA SH PLASMA FROMPATIENTS STABILIZED ON ORAL ANTICOAGULANTS.ROUTINE ANTICOAGULANT THERAPY 2.0-3.0RECURRENT SYSTEMIC EMBOLISM/HEART VALVE REPLACEMENT 2.5-3.5 ID Date Data Source [id number] 06/28/2020 10:05:00 PM EST Nephrology Hy pertension [...] not be used for medication dosing. Follow instant print operator's instructions for medication dosing.Age (Years) Average GFR 20 - 29 116 mL/min/1.73m 30 - 39 107 mL/min/1.73m 40 - 49 99 mL/min/1.73m 50 - 59 93 mL/min/1.73m 60 - 69 85 mL/min/1.73m 70 + 75 mL/min/1.73m ID Date Data Source [id number] 06/28/2020 10:05:00 PM EST Nephrology Hy pertension [...] [facility] ID Date Data Source [id number] 06/23/2020 02:09:00 PM [facility] Patient Name: BRITTON GOMEZ : 1940 Sex: M Pt Unit #: [id number] Location:[facility] Provider: Visit Date/Time: 06/23/20 Primary Insurance: [employer]ICARE [employer] Secondary Insurance: [facility] Intake Intake Visit Reasons: Telemed Visit Nurse Note: 80 year old male doing a telemed visit today regarding his INR. It was 3.4 this morning.Did see the dematologist yesterday for the itching all over. Allergies No Known Drug Allergies Allergy (Verified 06/23/20 14:15) HIV Testing Offer - ages 13-64 Requirement for HIV testing offer been met?: Not in age range [facility] Medical History (Updated 06/23/20 @ 14:27 by [...] hydrocortisone for the itch he went to [place] to see doctor he also went to [place] to see life specialist and lots of blood test was done he gets the hydrocortisone over the counter he denies other complaints total telemedicin time is approx 7 minutes Assessment Plan Assessment Plan (1) Atrial fibrillation: Status: Chronic Comment: may 2020 INR was therapeutic for afib Code(s): I48.91 - Unspecified atrial fibrillation SNOMED Code(s): 69023817 Category: Medical Qualifiers: Atrial fibrillation type: permanent [...] Code(s): L29.9 - Pruritus, unspecified SNOMED Code(s): 223637285 Category: Medical Plan - Mayuri Guardado DO: hydrocortisone prn f/u dermatolgist f/u life specialist <Electronically signed by Mayuri Guardado DO> 06/23/20 1446 Name Value Range Interpretation Code Description Data Maribel rce(s) Supporting Document(s) ID Date Data Source [id number] 06/23/2020 10:15:00 AM [facility] Name Value Range Interpretation Code Description Data Maribel rce(s) Supporting Document(s) Prothrombin Time (Patient) 34.0 s 9.6-12.3 Above high normal [facility] INR 3.4 0.9-1.1 Above high normal [facility] THE INR IS OPERATIONALLY DEFINED FOR PIPPA SH PLASMA FROMPATIENTS STABILIZED ON ORAL ANTICOAGULANTS.ROUTINE ANTICOAGULANT THERAPY 2.0-3.0RECURRENT SYSTEMIC EMBOLISM/HEART VALVE REPLACEMENT 2.5-3.5 ID Date Data Source [id number] 05/23/2020 10:34:00 AM [facility] Name Value Range Interpretation Code Description Data Maribel rce(s) Supporting Document(s) Prothrombin Time (Patient) 25.7 s 9.6-12.3 Above high normal [facility] INR 2.5 0.9-1.1 Above high normal [facility] THE INR IS OPERATIONALLY DEFINED FOR PIPPA SH PLASMA FROMPATIENTS STABILIZED ON ORAL ANTICOAGULANTS.ROUTINE ANTICOAGULANT THERAPY 2.0-3.0RECURRENT SYSTEMIC EMBOLISM/HEART VALVE REPLACEMENT 2.5-3.5 ID Date Data Source [id number] 05/16/2020 09:49:00 AM [facility] Patient Name: BRITTON GOMEZ : 1940 Sex: M Pt Unit #: [id number] Location:[place] Provider: Visit Date/Time: 05/16/20 Primary Insurance: [employer]ARE [employer] Secondary Insurance: [facility] Intake Vital Signs 05/16/20 09:50 Current Height [...] in 1 week.Would like a derm. referral. Trailer Chief Required: No Accompanied by: Is patient in pain?: No Allergies No Known Drug Allergies Allergy (Verified 05/16/20 10:44) HIV Testing Offer - ages 13-64 Requirement for HIV testing offer been met?: Not in age range Do you need a note to return Do you need a note to return to daycare/school/sports/work: No Coronavirus Screening Screening Have you traveled outside of [facility] or [facility] in the last 14 days.: Yes Has patient experienced coronavirus symptoms: No [facility] Medical History (Updated 05/16/20 @ 13:05 by [...] Code(s): L29.9 - Pruritus, unspecified SNOMED Code(s): 344347503 Category: Medical Plan - Mayuri Guardado DO: f/u life specialist hydrocortisone prn itch hydrocortisone provides relief for about 3 hours if condition worsens, then go to ER Orders: Referrals: Allergy Referral (3) Viral wart on finger: Status: Acute Code(s): B07.9 - Viral wart, unspecified SNOMED Code(s): 900345639 Category: Medical Plan - Mayuri Guardado, DO: f/u fly raiser lockstitch Orders: Referrals: Dermatology Referral (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 Code(s): Z95.2 - Presence of prosthetic heart valve SNOMED Code(s): 7224545850706 Category: Surgical Plan - Mayuri Guardado, DO: inr is therapeutic between 2.5 - [...] rce(s) Supporting Document(s) ID Date Data Source [id number] 05/12/2020 08:24:00 AM EDT [facility] Name Value Range Interpretation Code Description Data Maribel rce(s) Supporting Document(s) Prothrombin Time (Patient) 32.4 s 9.6-12.3 Above high normal [facility] INR 3.2 0.9-1.1 Above high normal [facility] THE INR IS OPERATIONALLY DEFINED FOR PIPPA SH PLASMA FROMPATIENTS STABILIZED ON ORAL ANTICOAGULANTS.ROUTINE ANTICOAGULANT THERAPY 2.0-3.0RECURRENT SYSTEMIC EMBOLISM/HEART VALVE REPLACEMENT 2.5-3.5 ID Date Data Source [id number] 05/10/2020 02:15:00 PM EDT [facility] Name Value Range Interpretation Code Description Data Maribel rce(s) Supporting Document(s) Protein [Mass/volume] in Serum or Plasma 7.2 g/dL 6.4-8.2 [facility] Albumin/Globulin [Mass Ratio] in Serum or Plasma 1.4 RATIO [facility] ([facility]) Albumin [Mass/volume] in Serum or Plasma 4.2 g/dL 3.2-4.5 [facility]) Globulin [Mass/volume] in Serum 3.0 g/dL 2.7-4.3 [facility]) Bilirubin.total [Mass/volume] in Serum or Plasma 0.3 mg/dL 0.0-1.0 [facility]) PLEASE NOTE: Total bilirubin results may be falsely elevated in patients taking Eltrombopag. Bilirubin.direct [Mass/volume] in Serum or Plasma 0.1 mg/dL 0.0-0.3 [facility]) Bilirubin.indirect [Mass/volume] in Serum or Plasma 0.2 mg/dL 0.0-0. 7 [facility]) Aspartate aminotransferase [Enzymatic activity/volume] in Serum or Plasma 15 U/L 11-39 [facility]) Alkaline phosphatase [Enzymatic activity/volume] in Serum or Plasma 142 U/L 45-117 [facility]) Alanine aminotransferase [Enzymatic activity/volume] in Seru m or Plasma 16 U/L 12-78 [facility]) ID Date Data Source [id number] 05/10/2020 02:15:00 PM EDT [facility]) Name Value Range Interpretation Code Description Data Maribel rce(s) Supporting Document(s) Prostate specific Ag [Mass/volume] in Serum or Plasma 0.1 ng/mL 0.0- 4.0 [facility]) IN 20% OF CASES W/ BPH, PSA MAY BE 10 NG/ML OR MORE. SERUM PSA CONCENTRATION SHOULD NOT BE INTERPRETED ABSOLUTE EVIDENCE FOR THE PRESENCE OR ABSENCE OF MALIGNANT DISEASE. METHOD IS SIEMENS [employer] CHEMILUMINESCENT IMMUNOASSAY (CALIBRATION TRACEABLE TO WHO , 1998,96/668). VALUES OBTAINED WITH DIFFERENT ASSAY METHODS OR KITS CANNOT BE USED INTERCHANGEABLY. ID Date Data Source [id number] 05/10/2020 02:15:00 PM EDT [facility]) Name Value Range Interpretation Code Description Data Maribel rce(s) Supporting Document(s) Testosterone Free [Mass/volume] in Serum or Plasma 2 pg/mL 47-244 [facility]) THE CONCENTRATION OF FREE TESTOSTERONE I S DERIVED FROM A MATHEMATICAL EXPRESSION BASED ON THE CONSTANT FOR THE BINDING OF TESTOSTERONE TO SHBG. Testosterone [Mass/volume] in Serum or Plasma 10 ng/dL 87-780 [facility]) PLEASE NOTE: REFERENCE RANGE IS GENDER SPECIFIC FOR ADULTS ONLY. AGE/BERTIN STAGE APPROPRIATE REFERENCE RANGES HAVE NOT BEEN ESTABLISHED FOR THIS METHODOLOGY. Testosterone Free/Testosterone.total in Serum or Plasma 2.0 % 1. 6-2.9 [facility] ([facility]) Sex hormone binding globulin [Moles/volume] in Serum or Plasma 2 7 nmol/L 22-113 [facility]) ADULT REFERENCE RANGE ID Date Data Source [id number] 05/10/2020 08:35:28 PM EDT [facility] Name Value Range Interpretation Code Description Data Maribel rce(s) Supporting Document(s) TESTOSTERONE,TOTAL @ 10 ng/dL (87-780) L Laborator y [facility] PLEASE NOTE:REFEREN CE RANGE IS GENDER SPECIFICFOR ADULTS ONLY. AGE/BERTIN STAGEAPPROPRIATE REFERENCE RANGES HAVENOT BEEN ESTABLISHED FOR THISMETHODOLOGY. TESTO, FREE 2 pg/mL (47-244) L [facility] THE CONCENTRATION OF FREE TESTOSTERONE I SDERIVED FROM A MATHEMATICAL EXPRESSION BASEDON THE CONSTANT FOR THE BINDING OFTESTOSTERONE TO SHBG. TESTO, PERCENT FREE 2.0 % (1.6-2.9) Laboratory [facility] SEX HORM BIND GLOB @ 27 nmol/L (22-113) Laborator y [facility] ADULT REFERENCE RANGE ID Date Data Source [id number] 05/10/2020 08:36:14 PM EDT [facility] Name Value Range Interpretation Code Description Data Maribel rce(s) Supporting Document(s) PSA TOTAL 0.1 ng/mL (0.0-4.0) Laboratory [facility] IN 20% OF CASES W/ BPH, PSA MAY BE10 NG/ ML OR MORE. SERUM PSACONCENTRATION SHOULD NOT BE INTERPRETEDAS ABSOLUTE EVIDENCE FOR THE PRESENCEOR ABSENCE OF MALIGNANT DISEASE. METHODIS SIEMENS [email or web address] LOCI CHEMILUMINESCENTIMMUNOASSAY (CALIBRATION TRACEABLE TOWHO , 1998,96/668).VALUES OBTAINED WITH DIFFERENT ASSAYMETHODS OR KITS CANNOT BE USEDINTERCHANGEABLY. ID Date Data Source [id number] 05/10/2020 08:36:14 PM EDT [facility] Name Value Range Interpretation Code Description Data Maribel rce(s) Supporting Document(s) TOTAL PROTEIN 7.2 g/dL (6.4-8.2) [facility] ALBUMIN 4.2 g/dL (3.2-4.5) [facility] GLOBULIN 3.0 g/dL (2.7-4.3) [facility] ALB/GLOB RATIO 1.4 RATIO [facility] BILIRUBIN,TOTAL 0.3 mg/dL (0.0-1.0) [facility] PLEASE NOTE:Total bilirubin results may be falselyelevated in patients taking Eltrombopag. BILIRUBIN,CONJUGATED 0.1 mg/dL (0.0-0.3) [facility]ator [facility] BILIRUBIN,UNCONJ. 0.2 mg/dL (0.0-0.7) [facility] ALKALINE PHOSPHATASE 142 U/L (45-117) H [facility] AST (SGOT) 15 U/L (11-39) [facility] ALT (SGPT) 16 U/L (12-78) [facility] ID Date Data Source [id number] 05/10/2020 01:57:00 PM EDT [facility] Name Value Range Interpretation Code Description Data Maribel rce(s) Supporting Document(s) Glucose [Presence] in Urine Laboratory test result [facility]) Protein [Presence] in Urine by Test strip Laboratory test result [facility] Blood [Presence] in Urine by Visual Laboratory test result [facility] Ua Nitrite Laboratory test result [facility] ([facility]) Ua Leuko Laboratory test result [facility]) Clarity of Urine Laboratory test result [facility]) Ketones [Presence] in Urine by Test strip Laboratory test result [facility] ([facility]) Color of Urine Laboratory test result [facility]) pH of Urine by Test strip 5.5 5.0-7.5 [facility] ([facility]) Ua Specific [place] 1.015 1.003-1.030 [facility] ([facility]) Bilirubin.total [Presence] in Urine by Test strip Laboratory test res ult [facility] ([facility]) Urobilinogen [Mass/volume] in Urine by Test strip 0.2 E.U./dL 0.0-1.0 [facility] ([facility]) ID Date Data Source [id number] 04/05/2020 10:12:00 AM EDT Nephrology Hy pertension [...] [facility] ID Date Data Source [id number] 04/05/2020 10:12:00 AM EDT Nephrology Hy pertension [...] not be used for medication dosing. Follow instant print operator's instructions for medication dosing.Age (Years) Average GFR 20 - 29 116 mL/min/1.73m 30 - 39 107 mL/min/1.73m 40 - 49 99 mL/min/1.73m 50 - 59 93 mL/min/1.73m 60 - 69 85 mL/min/1.73m 70 + 75 mL/min/1.73m ID Date Data Source [id number] 03/31/2020 07:50:00 AM EDT [facility] Name Value Range Interpretation Code Description Data Maribel rce(s) Supporting Document(s) Prothrombin Time (Patient) 25.2 s 9.6-12.3 Above high normal [facility] INR 2.5 0.9-1.1 Above high normal [facility] THE INR IS OPERATIONALLY DEFINED FOR PIPPA SH PLASMA FROMPATIENTS STABILIZED ON ORAL ANTICOAGULANTS.ROUTINE ANTICOAGULANT THERAPY 2.0-3.0RECURRENT SYSTEMIC EMBOLISM/HEART VALVE REPLACEMENT 2.5-3.5 ID Date Data Source [id number] 03/17/2020 03:24:00 PM EDT [facility] Patient Name: BRITTON GOMEZ DO B: 1940 Sex: M Pt Unit #: [id number] Location:[facility] Provider: Visit Date/Time: 03/17/20 Primary Insurance: [employer]ARE [employer] Secondary Insurance: [facility] Intake Vital Signs 03/17/20 15:37 Current Height [...] is due. Has had both pneumonia shots. Trailer Chief Required: No Accompanied by: Is patient in [...] PO DAILY leuprolide (Eligard) 7.5 mg subcut [id number] lisinopril 5 mg PO DAILY metoprolol tartrate [...] Screening Screening Have you traveled outside of [facility] or [facility] in the last 14 days.: No Has [...] PO DAILY leuprolide (Eligard) 7.5 mg subcut [id number] lisinopril 5 mg PO DAILY metoprolol tartrate [...] Safety: Reports Bathroom: Grab bars, Lighting: Adequate, [place]: No throw rugs and Stairs: Handrail available [...] I48.2 - Chronic atrial fibrillation SNOMED Code(s): 379454018 Category: Medical Plan - Mayuri Guardado DO: stable continue same dosage schedule inr in 2 weeks Orders Other Orders: Orders: Prothrombin Time INR 2 Weeks I48.91 Instructions: A-fib (Atrial Fibrillation) (GEN) Follow Up: 3 (atrial fibrillation) Electronically Signed By: <Electronically signed by Mayuri Guardado DO> Date/Time Signed: 03/17/20 3776 Name Value Range Interpretation Code Description Data Maribel rce(s) Supporting Document(s) ID Date Data Source [id number] 03/09/2020 06:07:00 PM EDT [facility] Name Value Range Interpretation Code Description Data Maribel rce(s) Supporting Document(s) Lyme IgG/IgM Ab Less Than 0.91 0.00-0.90 [facility] Negative <0.91 Equivocal 0.91 - 1.09 Positive >1.09 Lyme Ab IgM Less Than 0.80 0.00-0.79 [facility] Negative <0.80 Equivocal 0.80 - 1.19 Positive > 1.19 IgM levels may peak at 3-6 weeks post infection, then gradually decline.Performed at: RN - [facility] [address] [id number] Director: Cecy Babin MD, Phone: [phone] ID Date Data Source [id number] 03/08/2020 11:23:00 AM [facility] Name Value Range Interpretation Code Description Data Maribel rce(s) Supporting Document(s) Prothrombin Time (Patient) 22.5 s 9.6-12.3 Above high normal [facility] INR 2.2 0.9-1.1 Above high normal [facility] THE INR IS OPERATIONALLY DEFINED FOR PIPPA SH PLASMA FROMPATIENTS STABILIZED ON ORAL ANTICOAGULANTS.ROUTINE ANTICOAGULANT THERAPY 2.0-3.0RECURRENT SYSTEMIC EMBOLISM/HEART VALVE REPLACEMENT 2.5-3.5 ID Date Data Source [id number] 03/08/2020 09:31:00 AM [facility] Patient Name: BRITTON GOMEZ DO B: 1940 Sex: M Pt Unit #: [id number] Location:[facility] Provider: Visit Date/Time: 03/08/20 Primary Insurance: [employer]ARE [employer] Secondary Insurance: [facility] Intake Vital Signs 03/08/20 09:31 Current Height [...] and and 3mg on the other days. Trailer Chief Required: No Accompanied by: Is patient in [...] PO DAILY leuprolide (Eligard) 7.5 mg subcut [id number] lisinopril 5 mg PO DAILY metoprolol tartrate [...] Screening Screening Have you traveled outside of [facility] or [facility] in the last 14 days.: No Has patient experienced coronavirus symptoms: No [facility] Medical History (Updated 03/08/20 @ 12:46 by [...] I10 - Essential (primary) hypertension SNOMED Code(s): 9122023 Category: Medical Plan - Mayuri Guardado, DO: stable continue current medical treatment f/u environmental health technician (2) Itching due to drug: Status: Acute Code(s): L29.8 - Other pruritus; T50.905A - Adverse effect of unspecified drugs, medicam ents and biological substances, initial encounter SNOMED Code(s): 565761154 Category: Medical Plan - Mayuri Guardado, DO: trial of hydrocortisone cream f/u ring sewer if necessary to change to alternative calcitriol (3) Bug bite without infection: Status: Acute Code(s): W57.XXXA - Bitten or stung by nonvenomous insect and other nonvenomous arthropods, initial encounter SNOMED Code(s): 457216934 Category: Medical Plan - Mayuri Guardado DO: left abdomen, possible insect bite he [...] by Mayuri Guardado DO> Date/Time Signed: 03/08/20 6805 Name Value Range Interpretation Code Description Data Maribel rce(s) Supporting Document(s) ID Date Data Source [id number] 02/28/2020 08:27:00 AM EDT [facility] Name Value Range Interpretation Code Description Data Maribel rce(s) Supporting Document(s) Prothrombin Time (Patient) 29.5 s 9.6-12.3 Above high normal [facility] INR 2.9 0.9-1.1 Above high normal [facility] THE INR IS OPERATIONALLY DEFINED FOR PIPPA SH PLASMA FROMPATIENTS STABILIZED ON ORAL ANTICOAGULANTS.ROUTINE ANTICOAGULANT THERAPY 2.0-3.0RECURRENT SYSTEMIC EMBOLISM/HEART VALVE REPLACEMENT 2.5-3.5 ID Date Data Source [id number] 02/23/2020 09:55:00 AM EDT Nephrology Hy pertension [...] [facility] ID Date Data Source [id number] 02/23/2020 09:55:00 AM EDT Nephrology Hy pertension [...] not be used for medication dosing. Follow instant print operator's instructions for medication dosing.Age (Years) Average GFR 20 - 29 116 mL/min/1.73m 30 - 39 107 mL/min/1.73m 40 - 49 99 mL/min/1.73m 50 - 59 93 mL/min/1.73m 60 - 69 85 mL/min/1.73m 70 + 75 mL/min/1.73m ID Date Data Source [id number] 02/18/2020 02:21:00 PM T [facility] Name Value Range Interpretation Code Description Data Maribel rce(s) Supporting Document(s) Prothrombin Time (Patient) 16.9 s 9.6-12.3 Above high normal [facility] INR 1.6 0.9-1.1 Above high normal [facility] THE INR IS OPERATIONALLY DEFINED FOR PIPPA SH PLASMA FROMPATIENTS STABILIZED ON ORAL ANTICOAGULANTS.ROUTINE ANTICOAGULANT THERAPY 2.0-3.0RECURRENT SYSTEMIC EMBOLISM/HEART VALVE REPLACEMENT 2.5-3.5 ID Date Data Source [id number] 02/10/2020 11:15:00 AM T [facility] Name Value Range Interpretation Code Description Data Maribel rce(s) Supporting Document(s) Prothrombin Time (Patient) 18.7 s 9.6-12.3 Above high normal [facility] INR 1.8 0.9-1.1 Above high normal [facility] THE INR IS OPERATIONALLY DEFINED FOR PIPPA SH PLASMA FROMPATIENTS STABILIZED ON ORAL ANTICOAGULANTS.ROUTINE ANTICOAGULANT THERAPY 2.0-3.0RECURRENT SYSTEMIC EMBOLISM/HEART VALVE REPLACEMENT 2.5-3.5 ID Date Data Source [id number] 02/01/2020 01:19:00 PM EDT [facility]) Name Value Range Interpretation Code Description Data Maribel rce(s) Supporting Document(s) Albumin [Mass/volume] in Serum or Plasma 4.0 g/dL 3.2-4.5 [facility]) Protein [Mass/volume] in Serum or Plasma 7.3 g/dL 6.4-8.2 [facility] ([facility]) Globulin [Mass/volume] in Serum 3.3 g/dL 2.7-4.3 [facility] ([facility]) Albumin/Globulin [Mass Ratio] in Serum or Plasma 1.2 RATIO [facility] ([facility]) Bilirubin.total [Mass/volume] in Serum or Plasma 0.3 mg/dL 0.0-1.0 [facility] ([facility]) PLEASE NOTE: Total bilirubin results may be falsely elevated in patients taking Eltrombopag. Alkaline phosphatase [Enzymatic activity/volume] in Serum or Plasma 139 U/L 45-117 [facility]) Bilirubin.direct [Mass/volume] in Serum or Plasma 0.1 mg/dL 0.0-0.3 [facility] ([facility]) Bilirubin.indirect [Mass/volume] in Serum or Plasma 0.2 mg/dL 0.0-0. 7 [facility]) Aspartate aminotransferase [Enzymatic activity/volume] in Serum or Plasma 16 U/L 11-39 [facility] Alanine aminotransferase [Enzymatic activity/volume] in Seru m or Plasma 19 U/L 12-78 [facility]) ID Date Data Source [id number] 02/01/2020 01:19:00 PM EDT [facility] ([facility]) Name Value Range Interpretation Code Description Data Maribel rce(s) Supporting Document(s) Prostate specific Ag [Mass/volume] in Serum or Plasma 0.1 ng/mL 0.0- 4.0 [facility] ([facility]) IN 20% OF CASES W/ BPH, PSA MAY BE 10 NG/ML OR MORE. SERUM PSA CONCENTRATION SHOULD NOT BE INTERPRETED ABSOLUTE EVIDENCE FOR THE PRESENCE OR ABSENCE OF MALIGNANT DISEASE. METHOD IS SIEM[employer] CHEMILUMINESCENT IMMUNOASSAY (CALIBRATION TRACEABLE TO WHO , 1998,96/668). VALUES OBTAINED WITH DIFFERENT ASSAY METHODS OR KITS CANNOT BE USED INTERCHANGEABLY. ID Date Data Source [id number] 02/01/2020 01:19:00 PM EDT [facility] ([facility] Name Value Range Interpretation Code Description Data Maribel rce(s) Supporting Document(s) Testosterone [Mass/volume] in Serum or Plasma 10 ng/dL 87-780 [facility] ([facility]) PLEASE NOTE: REFERENCE RANGE IS GENDER SPECIFIC FOR ADULTS ONLY. AGE/BERTIN STAGE APPROPRIATE REFERENCE RANGES HAVE NOT BEEN ESTABLISHED FOR THIS METHODOLOGY. Testosterone Free [Mass/volume] in Serum or Plasma 2 pg/mL 47-244 [facility] ([facility]) THE CONCENTRATION OF FREE TESTOSTERONE I S DERIVED FROM A MATHEMATICAL EXPRESSION BASED ON THE CONSTANT FOR THE BINDING OF TESTOSTERONE TO SHBG. Testosterone Free/Testosterone.total in Serum or Plasma 2.2 % 1. 6-2.9 [facility] ([facility]) Sex hormone binding globulin [Moles/volume] in Serum or Plasma 2 3 nmol/L 22-113 [facility] ([facility]) ADULT REFERENCE RANGE ID Date Data Source [id number] 02/01/2020 11:28:07 PM EDT [facility] Name Value Range Interpretation Code Description Data Maribel rce(s) Supporting Document(s) TOTAL PROTEIN 7.3 g/dL (6.4-8.2) [facility] - CORE ALBUMIN 4.0 g/dL (3.2-4.5) [facility] - CORE GLOBULIN 3.3 g/dL (2.7-4.3) [facility] - CORE ALB/GLOB RATIO 1.2 RATIO Laboratory [facility] - CORE BILIRUBIN,TOTAL 0.3 mg/dL (0.0-1.0) [facility] - CORE PLEASE NOTE:Total bilirubin results may be falselyelevated in patients taking Eltrombopag. BILIRUBIN,CONJUGATED 0.1 mg/dL (0.0-0.3) Laborator y [facility] - CORE BILIRUBIN,UNCONJ. 0.2 mg/dL (0.0-0.7) Laboratory [facility] ALKALINE PHOSPHATASE 139 U/L (45-117) H Laborator y [facility] AST (SGOT) 16 U/L (11-39) Laboratory [facility] ALT (SGPT) 19 U/L (12-78) Laboratory [facility] ID Date Data Source [id number] 02/01/2020 11:28:07 PM EDT [facility] Name Value Range Interpretation Code Description Data Maribel rce(s) Supporting Document(s) PSA TOTAL 0.1 ng/mL (0.0-4.0) Laboratory [facility] IN 20% OF CASES W/ BPH, PSA MAY BE10 NG/ ML OR MORE. SERUM PSACONCENTRATION SHOULD NOT BE INTERPRETEDAS ABSOLUTE EVIDENCE FOR THE PRESENCEOR ABSENCE OF MALIGNANT DISEASE. METHODIS [place] [facility] CHEMILUMINESCENTIMMUNOASSAY (CALIBRATION TRACEABLE [facility] IS, 1998,96/668).VALUES OBTAINED WITH DIFFERENT ASSAYMETHODS OR KITS CANNOT BE USEDINTERCHANGEABLY. ID Date Data Source [id number] 02/01/2020 11:30:27 PM EDT [facility] Name Value Range Interpretation Code Description Data Maribel rce(s) Supporting Document(s) TESTOSTERONE,TOTAL @ 10 ng/dL (87-780) L Laborator y [facility] PLEASE NOTE:REFEREN CE RANGE IS GENDER SPECIFICFOR ADULTS ONLY. AGE/BERTIN STAGEAPPROPRIATE REFERENCE RANGES HAVENOT BEEN ESTABLISHED FOR THISMETHODOLOGY. TESTO, FREE 2 pg/mL (47-244) L Laboratory [facility] THE CONCENTRATION OF FREE TESTOSTERONE I SDERIVED FROM A MATHEMATICAL EXPRESSION BASEDON THE CONSTANT FOR THE BINDING OFTESTOSTERONE TO SHBG. TESTO, PERCENT FREE 2.2 % (1.6-2.9) Laboratory [facility] SEX HORM BIND GLOB @ 23 nmol/L (22-113) Laborator y [facility] ADULT REFERENCE RANGE ID Date Data Source [id number] 02/01/2020 01:05:00 PM EDT [facility] ([facility] Name Value Range Interpretation Code Description Data Maribel rce(s) Supporting Document(s) Glucose [Presence] in Urine Laboratory test result [facility] ([facility]) Ua Nitrite Laboratory test result [facility] ([facility]) Ua Leuko Laboratory test result [facility] ([facility]) Protein [Presence] in Urine by Test strip Laboratory test result [facility] ([facility]) Blood [Presence] in Urine by Visual Laboratory test result [facility] ([facility]) Ketones [Presence] in Urine by Test strip Laboratory test result [facility] ([facility]) Color of Urine Laboratory test result [facility] ([facility]) pH of Urine by Test strip 5.0 5.0-7.5 [facility] ([facility]) Ua Specific [place] 1.020 1.003-1.030 [facility] NT ([facility]) Clarity of Urine Laboratory test result [facility] ([facility]) Bilirubin.total [Presence] in Urine by Test strip Laboratory test res ult [facility] ([facility]) Urobilinogen [Mass/volume] in Urine by Test strip 0.2 E.U./dL 0.0-1.0 [facility] ([facility]) ID Date Data Source [id number] 01/26/2020 09:40:00 AM EDT Nephrology Hy pertension [...] not be used for medication dosing. Follow instant print operator's instructions for medication dosing.Age (Years) Average GFR 20 - 29 116 mL/min/1.73m 30 - 39 107 mL/min/1.73m 40 - 49 99 mL/min/1.73m 50 - 59 93 mL/min/1.73m 60 - 69 85 mL/min/1.73m 70 + 75 mL/min/1.73m ID Date Data Source [id number] 01/26/2020 09:40:00 AM EDT Nephrology Hy pertension [...] [facility] ID Date Data Source [id number] 01/25/2020 02:14:00 PM EDT [facility] Name: BRITTON GOMEZ : 1940 Age: 79 MR#: [id number] Admit Date: 01/25/20 Provider: Carlos Drummond DO [...] wound care f/u to ER visit 01/23/20. Trailer Chief Required: No Accompanied by: Is patient in pain?: No Allergies No Known Drug Allergies Allergy (Verified 01/23/20 16:28) HIV Testing Offer - ages 13-64 Requirement for HIV testing offer been met?: Not in age range Coronavirus Screening Screening Have you traveled outside of [facility] or [facility] in the last 14 days.: No Has [...] of left ear, initial encounter SNOMED Code(s): 662184777 Category: Medical Plan - Carlos Drummond DO: [...] rce(s) Supporting Document(s) ID Date Data Source [id number] 01/23/2020 05:41:00 PM EDT [facility] [address] [place] [address] [phone] NAME SEX PT STATUS ACCOUNT NUMBER BRITTON GOMEZ [facility] [id number] ORDERING PHYSICIAN LOCATION MEDICAL RECORD NO. Kyaw YOUNG [facility] [id number] ATTENDING PHYSICIAN DATE OF DATE OF EXAM/TIME [...] Date Time CC: Floyd Cain MD; Tara WORKFORCE DEVELOPMENT VICE PRESIDENT Dylon Techn: FROSA Trans Dt/Tm: Trans by: DT Prt Dt/Tm: 0614- 0011: Total DLP = 0.00 mGy-cm Fluoroscopy Time (in secs): Name Value Range Interpretation Code Description Data Maribel rce(s) Supporting Document(s) ID Date Data Source [id number] 01/23/2020 05:08:00 PM EDT [facility] [address] [place] [address] [phone] NAME SEX PT STATUS ACCOUNT NUMBER BRITTON GOMEZ [facility] ER [id number] ORDERING PHYSICIAN LOCATION MEDICAL RECORD NO. Kyaw Richardson [id number] ATTENDING PHYSICIAN DATE OF DATE OF EXAM/TIME [...] rce(s) Supporting Document(s) ID Date Data Source [id number] 01/23/2020 04:32:00 PM EDT [facility] Anticoagulant or Thrombolytic medication :: Heparin Name Value Range Interpretation Code Description Data Maribel rce(s) Supporting Document(s) Leukocytes [#/volume] in Blood by Automated count 5.4 10*3/uL 4.45-10 .71 N [facility] Erythrocytes [#/volume] in Blood by Automated count 3.52 10*6/uL 4.3-6.1 Below low normal [facility] Hemoglobin [Moles/volume] in Blood 11.7 g/dL 13-18 Below low no rmal [facility] Hematocrit [Volume Fraction] of Blood by Automated count 34.6 % 42-52 Below low normal [facility] Erythrocyte mean corpuscular volume [Ent itic volume] in Cord blood by Automated count 98.3 fL 80-96 Above high normal [facility] Erythrocyte mean corpuscular hemoglobin [Entitic mass] by Automated count 33.2 pg 27-31 Above high normal [facility] spital Erythrocyte mean corpuscular hemoglobin concentration [Mass/volume] in Cord blood 33.8 g/dL 33-37 N [facility] ital Erythrocyte distribution width [Entitic volume] by Automated count 15 % 11-15 N [facility] Platelets [#/volume] in Blood by Automated count 127 10*3/uL 130-472 Below low normal [facility] Platelet mean volume [Entitic volume] in Blood 11.3 fL 9.1-13.1 N [facility] Neutrophils/100 leukocytes in Blood by Automated count 66.8 % 41- 77 N [facility] Neutrophils [#/volume] in Blood by Automated count 3.6 U 1.7-7.6 N [facility] Lymphocytes/100 leukocytes in Blood by Automated count 18.8 % 14- 46 N [facility] Lymphocytes [#/volume] in Blood by Automated count 1.0 U 0.6-4.6 N [facility] Monocytes/100 leukocytes in Blood by Automated count 9.9 % 4-12 N [facility] Monocytes [#/volume] in Blood by Automated count 0.5 U 0.2-1.2 N [facility] Eosinophils/100 leukocytes in Blood by Automated count 3.9 % 0-7 N [facility] Eosinophils [#/volume] in Blood by Automated count 0.2 U 0.0-0.5 N [facility] Basophils/100 leukocytes in Blood by Automated count 0.6 % 0.4-1 .3 N [facility] Basophils [#/volume] in Blood by Automated count 0.0 U 0.0-0.2 N [facility] NUCLEATED RED BLOOD CELL 0 % [facility] NUCLEATED RED BLOOD CELL# 0 U [facility] Immature granulocytes [Presence] in Blood by Automated count 0-2 N [facility] Immature granulocytes [#/volume] in Blood by Automated count 0.0 U 0-0.1 [facility] Manual Differential panel - Blood NO [facility] ID Date Data Source [id number] 01/23/2020 04:51:00 PM EDT [facility] Anticoagulant or Thrombolytic medication :: Heparin Name Value Range Interpretation Code Description Data Maribel rce(s) Supporting Document(s) Prothrombin Time (Patient) 24.4 s 9.6-12.3 Above high normal [facility] INR 2.5 0.9-1.1 Above high normal [facility] THE INR IS OPERATIONALLY DEFINED FOR PIPPA SH PLASMA FROMPATIENTS STABILIZED ON ORAL ANTICOAGULANTS.ROUTINE ANTICOAGULANT THERAPY 2.0-3.0RECURRENT SYSTEMIC EMBOLISM/HEART VALVE REPLACEMENT 2.5-3.5 ID Date Data Source [id number] 01/23/2020 04:51:00 PM EDT [facility] Name Value Range Interpretation Code Description Data Maribel rce(s) Supporting Document(s) Urea nitrogen [Mass/volume] in Serum or Plasma 73 mg/dL 9-23 Above high normal [facility] Sodium [Moles/volume] in Serum or Plasma 139 mmol/L 132-146 N [facility] Potassium [Moles/volume] in Serum or Plasma 4.2 mmol/L 3.5-5.5 N [facility] Chloride [Moles/volume] in Serum or Plasma 109 mmol/L 99-109 N [facility] Carbon dioxide, total [Moles/volume] in Serum or Plasma 19 mmol/ L 20-31 Below low normal [facility] Anion gap in Serum or Plasma 15 mmol/L 8-16 N [facility] Glucose [Mass/volume] in Serum or Plasma 177 mg/dL 74-106 Above high normal [facility] Creatinine 3.0 mg/dL 0.5-1.1 Above high normal [facility] Glomerular filtration rate/1.73 sq M.pre dicted [Volume Rate/Area] in Serum or Plasma 20 ml/min ABOVE 60 [facility] ital Alanine aminotransferase [Enzymatic acti vity/volume] in Serum or Plasma by With P-5'-P 17 U/L 10-49 [facility] ital Aspartate aminotransferase [Enzymatic ac tivity/volume] in Serum or Plasma by With P-5'-P 16 U/L 0-33 [facility] pital Alkaline phosphatase [Enzymatic activity/volume] in Serum or Plasma 119 U/L 45-129 N [facility] Calcium [Mass/volume] in Serum or Plasma 9.8 mg/dL 8.5-10.1 [facility] Bilirubin.total [Mass/volume] in Serum or Plasma 0.3 mg/dL 0.3-1.2 [facility] Albumin [Mass/volume] in Serum or Plasma by Bromocresol purple (BCP) dye binding method 3.7 g/dL 3.2-4.8 [facility] ital Protein [Mass/volume] in Serum or Plasma 7.5 g/dL 5.7-8.2 [facility] ID Date Data Source [id number] 01/23/2020 04:25:00 PM EDT [facility] ED Physician Documentation NAME: BRITTON GOMEZ : 1940 AGE: 79 MR#: [id number] SERVICE DATE: 01/23/[address]: Kyaw Richardson BOILER TESTING TECHNICIAN PRIMARY CARE DR: Tara Osborne WORKFORCE DEVELOPMENT VICE PRESIDENT ROOM#: Musculoskeletal General Chief Complaint: Fall injury [...] 7.5 mg (1 month) 7.5 mg SQ [id number] each 12/09/19 01/23/20 08/02/19 History subcutaneous syringe [...] Medical) I48.91 Well controlled, follow up with environmental health technician BPH w urinary obs/LUTS (Chronic Medical 08/19/17) N40.1, N13.8 Bradycardia (Acute Medical) R00.1 Carpal tunnel syndrome on right (Chronic Medical 09/27/14) G56.01 Chronic atrial fibrillation (Chronic Medical 06/11/16) I48.2 Chronic renal impairment, stage 3 (moderate) (Chronic Medical 10/09/15) N18.3 CKD (chronic kidney disease) stage 3, GFR 30-59 ml/min (Acute Medical) N18.3 Follow up with ring sewer Claritza ongestive heart failure (CHF) (Chronic Medical) [...] % (Auto) 66.8, Lymph % (Auto) 18.8, [place] % (Auto) 9.9, Eos % (Auto) 3.9, [...] Kyaw Richardson NP 01/23/20 182 Kyaw Richardson BOILER TESTING TECHNICIAN SIGNATURE DA Report Cosigners: <<Signature on File>> Evan De Oliveira MD 01/23/201836 <Electronically signed by Evan De Oliveira MD> Evan De Oliveira MD 01/23/201836 D: IFEANYI 01/23/201624 T: IFEANYI 01/23/201624 CC: Tara VÁZQUEZ Dylon Name Value Range Interpretation Code Description Data Maribel rce(s) Supporting Document(s) ID Date Data Source [id number] 01/21/2020 07:56:00 AM [facility] Name Value Range Interpretation Code Description Data Maribel rce(s) Supporting Document(s) Prothrombin Time (Patient) 22.3 s 9.6-12.3 Above high normal [facility] INR 2.3 0.9-1.1 Above [facility] THE INR IS OPERATIONALLY DEFINED FOR PIPPA SH PLASMA FROMPATIENTS STABILIZED ON ORAL ANTICOAGULANTS.ROUTINE ANTICOAGULANT THERAPY 2.0-3.0RECURRENT SYSTEMIC EMBOLISM/HEART VALVE REPLACEMENT 2.5-3.5 ID Date Data Source [id number] 01/14/2020 07:58:00 AM [facility] Name Value Range Interpretation Code Description Data Maribel rce(s) Supporting Document(s) Prothrombin Time (Patient) 37.7 s 9.6-12.3 Above high normal [facility] INR 4.0 0.9-1.1 Above [facility] THE INR IS OPERATIONALLY DEFINED FOR PIPPA SH PLASMA FROMPATIENTS STABILIZED ON ORAL ANTICOAGULANTS.ROUTINE ANTICOAGULANT THERAPY 2.0-3.0RECURRENT SYSTEMIC EMBOLISM/HEART VALVE REPLACEMENT 2.5-3.5 ID Date Data Source [id number] 01/07/2020 10:07:00 AM [facility] Name Value Range Interpretation Code Description Data Maribel rce(s) Supporting Document(s) Prothrombin Time (Patient) 26.5 s 9.6-12.3 Above high normal [facility] INR 2.8 0.9-1.1 Above [facility] normal [facility] THE INR IS OPERATIONALLY DEFINED FOR PIPPA SH PLASMA FROMPATIENTS STABILIZED ON ORAL ANTICOAGULANTS.ROUTINE ANTICOAGULANT THERAPY 2.0-3.0RECURRENT SYSTEMIC EMBOLISM/HEART VALVE REPLACEMENT 2.5-3.5 ID Date Data Source [id number] 01/06/2020 10:37:00 AM [facility] Name Value Range Interpretation Code Description Data Maribel rce(s) Supporting Document(s) Prothrombin Time (Patient) 40.3 s 9.6-12.3 Above [facility] INR 4.3 0.9-1.1 Above [facility] THE INR IS OPERATIONALLY DEFINED FOR PIPPA SH PLASMA FROMPATIENTS STABILIZED ON ORAL ANTICOAGULANTS.ROUTINE ANTICOAGULANT THERAPY 2.0-3.0RECURRENT SYSTEMIC EMBOLISM/HEART VALVE REPLACEMENT 2.5-3.5 ID Date Data Source [id number] 12/30/2019 10:12:00 AM [facility] Name Value Range Interpretation Code Description Data Maribel rce(s) Supporting Document(s) Prothrombin Time (Patient) 31.9 s 9.6-12.3 Above [facility] INR 3.4 0.9-1.1 Above [facility] THE INR IS OPERATIONALLY DEFINED FOR PIPPA SH PLASMA FROMPATIENTS STABILIZED ON ORAL ANTICOAGULANTS.ROUTINE ANTICOAGULANT THERAPY 2.0-3.0RECURRENT SYSTEMIC EMBOLISM/HEART VALVE REPLACEMENT 2.5-3.5 ID Date Data Source [id number] 12/27/2019 10:14:00 AM [facility] Name Value Range Interpretation Code Description Data Maribel rce(s) Supporting Document(s) Prothrombin Time (Patient) 26.4 s 9.6-12.3 Above [facility] INR 2.7 0.9-1.1 Above [facility] THE INR IS OPERATIONALLY DEFINED FOR PIPPA SH PLASMA FROMPATIENTS STABILIZED ON ORAL ANTICOAGULANTS.ROUTINE ANTICOAGULANT THERAPY 2.0-3.0RECURRENT SYSTEMIC EMBOLISM/HEART VALVE REPLACEMENT 2.5-3.5 ID Date Data Source [id number] 12/24/2019 10:28:00 AM [facility] Name Value Range Interpretation Code Description Data Maribel rce(s) Supporting Document(s) Prothrombin Time (Patient) 25.7 s 9.6-12.3 Above [facility] INR 2.7 0.9-1.1 Above [facility] THE INR IS OPERATIONALLY DEFINED FOR PIPPA SH PLASMA FROMPATIENTS STABILIZED ON ORAL ANTICOAGULANTS.ROUTINE ANTICOAGULANT THERAPY 2.0-3.0RECURRENT SYSTEMIC EMBOLISM/HEART VALVE REPLACEMENT 2.5-3.5 ID Date Data Source [id number] [facility]2019 [facility] Interpretation Code Description Data Maribel rce(s) Supporting Document(s) Prothrombin Time (Patient) 41.9 s 9.6-12.3 Above [facility] normal [facility] INR 4.5 0.9-1.1 Above [facility] THE INR IS OPERATIONALLY DEFINED FOR PIPPA SH PLASMA FROMPATIENTS STABILIZED ON ORAL ANTICOAGULANTS.ROUTINE ANTICOAGULANT THERAPY 2.0-3.0RECURRENT SYSTEMIC EMBOLISM/HEART VALVE REPLACEMENT 2.5-3.5 ID Date Data Source [id number] 12/22/2019 09:54[facility] Name Value Range Interpretation Code Description Data Maribel rce(s) Supporting Document(s) Prothrombin Time (Patient) 78.2 s 9.6-12.3 Above [facility] normal [facility] INR 8.8 0.9-1.1 No range defined, or normal ranges d on't apply [facility] @Review test & document.Called to DRAKE DUNNE AT [facility] OFFICE @ [phone] by Ralph. Results read back.Repeated by: Iraj Garcia 12/22/19 0989.Result Confirmation:8.8THE INR IS OPERATIONALLY DEFINED FOR FRESH PLASMA FROMPATIENTS STABILIZED ON ORAL ANTICOAGULANTS.ROUTINE ANTICOAGULANT THERAPY 2.0-3.0RECURRENT SYSTEMIC EMBOLISM/HEART VALVE REPLACEMENT 2.5-3.5 ID Date Data Source [id number] 12/15/2019 10:15:00 AM [facility] Name Value Range Interpretation Code Description Data Maribel rce(s) Supporting Document(s) Prothrombin Time (Patient) 28.9 s 9.6-12.3 Above [facility] normal [facility] INR 3.0 0.9-1.1 Above [facility] THE INR IS OPERATIONALLY DEFINED FOR PIPPA SH PLASMA FROMPATIENTS STABILIZED ON ORAL ANTICOAGULANTS.ROUTINE ANTICOAGULANT THERAPY 2.0-3.0RECURRENT SYSTEMIC EMBOLISM/HEART VALVE REPLACEMENT 2.5-3.5 ID Date Data Source [id number] 12/13/2019 09:11:00 AM EDT [facility] Name Value Range Interpretation Code Description Data Maribel rce(s) Supporting Document(s) Prothrombin Time (Patient) 17.0 s 9.6-12.3 Above high normal [facility] INR 1.7 0.9-1.1 Above high normal [facility] THE INR IS OPERATIONALLY DEFINED FOR PIPPA SH PLASMA FROMPATIENTS STABILIZED ON ORAL ANTICOAGULANTS.ROUTINE ANTICOAGULANT THERAPY 2.0-3.0RECURRENT SYSTEMIC EMBOLISM/HEART VALVE REPLACEMENT 2.5-3.5 ID Date Data Source [id number] 12/09/2019 10:25:00 AM EDT [facility] [address] [place], [place] [id number] [phone] NAME SEX PT STATUS ACCOUNT NUMBER BRITTON GOMEZ [facility] ER [id number] ORDERING PHYSICIAN LOCATION MEDICAL RECORD NO. Lorena Ramos MD ER [id number] ATTENDING PHYSICIAN DATE OF DATE OF EXAM/TIME [...] Trans Dt/Tm: Trans by: DT Prt Dt/Tm: 0284-9725: Total DLP = 0.00 mGy-cm Fluoroscopy Time (in secs): Name Value Range Interpretation Code Description Data Maribel rce(s) Supporting Document(s) ID Date Data Source [id number] 12/09/2019 11:30:00 AM [facility] Name Value Range Interpretation Code Description Data Maribel rce(s) Supporting Document(s) Iron [Mass/volume] in Serum or Plasma 129 ug/dL 65-175 N [facility] Iron values may be falsely elevated in s maria guadalupe samples frompatients treated with anticoagulants (e.g., hemodialysispatients) Iron binding capacity [Moles/volume] in Serum or Plasma 38 20 -55 N [facility] Iron binding capacity [Mass/volume] in Serum or Plasma 341 ug/dL 250 -450 N [facility] ID Date Data Source [id number] 12/09/2019 11:30:00 AM [facility] Name Value Range Interpretation Code Description Data Maribel rce(s) Supporting Document(s) Ferritin [Mass/volume] in Serum or Plasma 432 ng/mL 22-322 Above high normal [facility] ID Date Data Source [id number] 12/09/2019 10:51:00 AM [facility] Name Value Range Interpretation Code Description Data Maribel rce(s) Supporting Document(s) Natriuretic peptide.B prohormone N-Terminal [Mass/volu me] in Serum or Plasma 1806.00 pg/mL 0.00-450 Above high normal [facility] ID Date Data Source [id number] 12/09/2019 09:55:00 AM [facility] Name Value Range Interpretation Code Description Data Maribel rce(s) Supporting Document(s) Leukocytes [#/volume] in Blood by Automated count 4.9 10*3/uL 4.45-10 .71 N [facility] Erythrocytes [#/volume] in Blood by Automated count 2.85 10*6/uL 4.3-6.1 Below low normal [facility] Hemoglobin [Moles/volume] in Blood 9.2 g/dL 13-18 Below low no rmal [facility] Hematocrit [Volume Fraction] of Blood by Automated count 26.3 % 42-52 Below low normal [facility] Erythrocyte mean corpuscular volume [Ent itic volume] in Cord blood by Automated count 92.3 fL 80-96 N [facility] ital Erythrocyte mean corpuscular hemoglobin [Entitic mass] by Automated count 32.3 pg 27-31 Above high normal [facility] spital Erythrocyte mean corpuscular hemoglobin concentration [Mass/volume] in Cord blood 35.0 g/dL 33-37 N [facility] ital Erythrocyte distribution width [Entitic volume] by Automated count 15 % 11-15 N [facility] Platelets [#/volume] in Blood by Automated count 123 10*3/uL 130-472 Below low normal [facility] Platelet mean volume [Entitic volume] in Blood 10.8 fL 9.1-13.1 N [facility] Neutrophils/100 leukocytes in Blood by Automated count 62.0 % 41- 77 N [facility] Neutrophils [#/volume] in Blood by Automated count 3.0 U 1.7-7.6 N [facility] Lymphocytes/100 leukocytes in Blood by Automated count 23.4 % 14- 46 N [facility] Lymphocytes [#/volume] in Blood by Automated count 1.1 U 0.6-4.6 N [facility] Monocytes/100 leukocytes in Blood by Automated count 10.9 % 4-12 N [facility] Monocytes [#/volume] in Blood by Automated count 0.5 U 0.2-1.2 N [facility] Eosinophils/100 leukocytes in Blood by Automated count 2.9 % 0-7 N [facility] Eosinophils [#/volume] in Blood by Automated count 0.1 U 0.0-0.5 N [facility] Basophils/100 leukocytes in Blood by Automated count 0.4 % 0.4-1 .3 N [facility] Basophils [#/volume] in Blood by Automated count 0.0 U 0.0-0.2 N [facility] NUCLEATED RED BLOOD CELL 0 % [facility] NUCLEATED RED BLOOD CELL# 0 U [facility] Immature granulocytes [Presence] in Blood by Automated count 0-2 N [facility] Immature granulocytes [#/volume] in Blood by Automated count 0.0 U 0-0.1 N [facility] Manual Differential panel - Blood NO [facility] ID Date Data Source [id number] 12/09/2019 10:25:00 AM EDT [facility] Name Value Range Interpretation Code Description Data Maribel rce(s) Supporting Document(s) Urea nitrogen [Mass/volume] in Serum or Plasma 95 mg/dL 9 -23 No range defined, or normal ranges don't apply [facility] @Review test & document. []Called to [employer] @ 1024 by Maggie Clark. Results read back.Repeated by: Maggie Clark 12/09/19 1024.Result Confirmation: 98 mg/dL Sodium [Moles/volume] in Serum or Plasma 139 mmol/L 132-146 [facility] Potassium [Moles/volume] in Serum or Plasma 4.3 mmol/L 3.5-5.5 N [facility] Chloride [Moles/volume] in Serum or Plasma 113 mmol/L 99-109 Above high normal [facility] Carbon dioxide, total [Moles/volume] in Serum or Plasma 16 mmol/ L 20-31 Below low normal [facility] Anion gap in Serum or Plasma 14 mmol/L 8-16 N [facility] Glucose [Mass/volume] in Serum or Plasma 134 mg/dL 74-106 Above high normal [facility] Creatinine 4.0 mg/dL 0.5-1.1 Above high normal [facility] Glomerular filtration rate/1.73 sq M.pre dicted [Volume Rate/Area] in Serum or Plasma 15 ml/min ABOVE 60 [facility] ital Alanine aminotransferase [Enzymatic acti vity/volume] in Serum or Plasma by With P-5'-P 20 U/L 10-49 N [facility] ital Aspartate aminotransferase [Enzymatic ac tivity/volume] in Serum or Plasma by With P-5'-P 16 U/L 0-33 N [facility] pital Alkaline phosphatase [Enzymatic activity/volume] in Serum or Plasma 112 U/L 45-129 N [facility] Calcium [Mass/volume] in Serum or Plasma 9.8 mg/dL 8.5-10.1 N [facility] Bilirubin.total [Mass/volume] in Serum or Plasma 0.3 mg/dL 0.3-1.2 N [facility] Albumin [Mass/volume] in Serum or Plasma by Bromocresol purple (BCP) dye binding method 3.9 g/dL 3.2-4.8 [facility] ital Protein [Mass/volume] in Serum or Plasma 7.5 g/dL 5.7-8.2 [facility] ID Date Data Source [id number] 12/09/2019 10:25:00 AM EDT [facility] Name Value Range Interpretation Code Description Data Maribel rce(s) Supporting Document(s) Troponin I.cardiac [Mass/volume] in Serum or Plasma Less Than 0.015 0.00-0.09 [facility] Less than 0.09 NG/ML Negative0.10 - 0.77 NG/ML High Risk0.78 NG/ML or Greater PositiveThe WHO defined the cutoff (definition for diagnosis of ME)for this method as 0.78 ng/ml. ID Date Data Source [id number] 12/09/2019 09:41:00 AM EDT [facility] ED Physician Documentation NAME: BRITTON GOMEZ : 1940 AGE: 79 MR#: [id number] SERVICE DATE: 12/09/[address]: Lorena Ramos MD PRIMARY CARE DR: Tara Osborne ROOM#: HPI (Adult, General) General Chief Complaint: Multi system (Adult) Stated Complaint: SOB Resident LT, travel outisde home, exposure to [...] a pulse [place] 85 [place] [address]% on room air. Allergies/Home Meds Allergies Allergy/AdvReac [...] History ferrous gluconate 324 mg PO DAILY 04/30/20 04/30/20 04/29/20 History leuprolide 7.5 mg (1 month) 7.5 mg SQ [id number] each 12/09/19 12/09/19 08/02/19 History subcutaneous syringe [...] Medical) I48.91 Well controlled, follow up with environmental health technician BPH w urinary obs/LUTS (Chronic Medical 08/19/17) N40.1, N13.8 Bradycardia (Acute Medical) R00.1 Carpal tunnel syndrome on right (Chronic Medical 09/27/14) G56.01 Chronic atrial fibrillation (Chronic Medical 06/11/16) I48.2 Chronic renal impairment, stage 3 (moderate) (Chronic Medical 10/09/15) N18.3 CKD (chronic kidney disease) stage 3, GFR 30-59 ml/min (Acute Medical) N18.3 Follow up with ring sewer Congestive heart failure (CHF) (Chronic Medical) I50.9 [...] Surgical History (Updated 02/02/19 @ 11:50 by [place]) History of - surgery (Surgical 1989) bypass [...] % (Auto) 62.0, Lymph % (Auto) 23.4, [place] % (Auto) 10.9, Eos % (Auto) 2.9, Baso % (Auto) 0.4, Lymph # (Auto) 1.1, Abs Immat Gran (auto) 0.0, Add Manual Diff No, Absolute Neutrophils 3.0, Monocytes # 0.5, Absolute Eosinophils 0.1, Absolute Basophils 0.0 EKG Data -: EKG Interpreted by [place] EKG shows normal: sinus rhythm (P waves [...] I consu lted with Mr. Gomez his ring sewer Dr. Huddleston. At this point time is [...] anemic. I did discuss this with your ring sewer Dr. Huddleston and at this point time [...] Ramos Report Signers: <Electronically signed by Lorena A Georgetown > Lorena A Georgetown 12/09/19 1102 Georgetown,Lorena A SIGNATURE DA Report Cosigners: D: PARMA 12/09/19940 T: PARMA 12/09/19940 CC: Tara Osborne Name Value Range Interpretation Code Description Data Maribel rce(s) Supporting Document(s) ID Date Data Source [id number] 12/09/2019 08:27:00 AM EDT [facility] Patient Name: BRITTON GOMEZ DO B: 1940 Sex: M Pt Unit #: [id number] Location:[facility] Provider: Visit Date/Time: 12/09/19 Primary Insurance: MEDICARE [...] Screening Screening Have you traveled outside of [facility] or [facility] in the last 14 days.: No Has patient experienced coronavirus symptoms: No [facility] Medical History Atrial fibrillation with controlled ventricular [...] body habitus Orientation: alert and oriented x3 [facility] Head: normal to inspection Neck Neck: normal [...] I48.91 - Unspecified atrial fibrillation SNOMED Code(s): 30785211 Category: Medical Qualifiers: Atrial fibrillation type: permanent Qualified Code(s): I48.2 - Chronic atrial fibrillation Plan - Tara Osborne: WILL HAVE FURTHER EVAL IN ER D/T CARDIAC HX HAS BEEN OFF ANTICOAGULANTS X 1 WEEK. (3) Aortic valve prosthesis present: Status: Acute Code(s): Z95.2 - Presence of prosthetic heart valve SNOMED Code(s): 3760815145104 Category: Surgical (4) Weakness: Status: Chronic Code(s): R53.1 - Weakness SNOMED Code(s): 21574085 Category: Medical (5) Congestive heart failure (CHF): Status: Chronic Comment: Well controlled Code(s): I50.9 - Heart failure, unspecified SNOMED Code(s): 50578595 Category: Medical (6) Tachycardia: Status: Acute Code(s): R00.0 - Tachycardia, unspecified SNOMED Code(s): 4386026 Category: Medical Electronically Signed By: <Electronically signed by Tara Osborne > Date/Time Signed: 12/09/19 0913 Name Value Range Interpretation Code Description Data Maribel rce(s) Supporting Document(s) ID Date Data Source [id number] 12/06/2019 10:08:00 AM EDT [facility] Name Value Range Interpretation Code Description Data Maribel rce(s) Supporting Document(s) Prothrombin Time (Patient) 13.2 s 9.6-12.3 Above high normal [facility] INR 1.3 0.9-1.1 Above high normal [facility] THE INR IS OPERATIONALLY DEFINED FOR PIPPA SH PLASMA FROMPATIENTS STABILIZED ON ORAL ANTICOAGULANTS.ROUTINE ANTICOAGULANT THERAPY 2.0-3.0RECURRENT SYSTEMIC EMBOLISM/HEART VALVE REPLACEMENT 2.5-3.5 ID Date Data Source [id number] [facility] Interpretation Code Description Data Maribel rce(s) Supporting Document(s) Prothrombin Time (Patient) 39.8 s 9.6-12.3 Above high normal [facility] INR 4.3 0.9-1.1 Above [facility] THE INR IS OPERATIONALLY DEFINED FOR PIPPA SH PLASMA FROMPATIENTS STABILIZED ON ORAL ANTICOAGULANTS.ROUTINE ANTICOAGULANT THERAPY 2.0-3.0RECURRENT SYSTEMIC EMBOLISM/HEART VALVE REPLACEMENT 2.5-3.5 ID Date Data Source [id number] 11/26/2019 11:11:00 AM [facility] Name Value Range Interpretation Code Description Data Maribel rce(s) Supporting Document(s) Prothrombin Time (Patient) 19.1 s 9.6-12.3 Above [facility] INR 1.9 0.9-1.1 Above [facility] THE INR IS OPERATIONALLY DEFINED FOR PIPPA SH PLASMA FROMPATIENTS STABILIZED ON ORAL ANTICOAGULANTS.ROUTINE ANTICOAGULANT THERAPY 2.0-3.0RECURRENT SYSTEMIC EMBOLISM/HEART VALVE REPLACEMENT 2.5-3.5 ID Date Data Source [id number] 11/23/2019 10:15:00 AM [facility] Name Value Range Interpretation Code Description Data Maribel rce(s) Supporting Document(s) Prothrombin Time (Patient) 16.2 s 9.6-12.3 Above [facility] INR 1.6 0.9-1.1 Above [facility] THE INR IS OPERATIONALLY DEFINED FOR PIPPA SH PLASMA FROMPATIENTS STABILIZED ON ORAL ANTICOAGULANTS.ROUTINE ANTICOAGULANT THERAPY 2.0-3.0RECURRENT SYSTEMIC EMBOLISM/HEART VALVE REPLACEMENT 2.5-3.5 ID Date Data Source [id number] 11/10/2019 02:07:00 PM [facility] Name Value Range Interpretation Code Description Data Maribel rce(s) Supporting Document(s) Testosterone 5 ng/dL 360-023 [facility] Adult male reference interval is based o n a population ofhealthy nonobese males (BMI <30) between 19 and 39 yearsold. Warren, et.al. JCEM 2017,102;8145-6282. PMID:59832125. Free Testosterone (Direct) 3.8 pg/mL 6.6-18.1 [facility] Performed at: [facility] [place] [id number] Director: Cecy Babin MD, Phone: [phone] ID Date Data Source [id number] 11/09/2019 08:40:00 AM EDT [facility] Name Value Range Interpretation Code Description Data Maribel rce(s) Supporting Document(s) Prothrombin Time (Patient) 18.2 s 9.6-12.3 Above high normal [facility] INR 1.8 0.9-1.1 Above high normal [facility] THE INR IS OPERATIONALLY DEFINED FOR PIPPA SH PLASMA FROMPATIENTS STABILIZED ON ORAL ANTICOAGULANTS.ROUTINE ANTICOAGULANT THERAPY 2.0-3.0RECURRENT SYSTEMIC EMBOLISM/HEART VALVE REPLACEMENT 2.5-3.5 ID Date Data Source [id number] 11/09/2019 07:02:00 AM EDT [facility] Name Value Range Interpretation Code Description Data Maribel rce(s) Supporting Document(s) Laboratory test finding (navigational concept) 18.2 s 9.6-12.3 [facility] ([facility]) Inr 1.8 0.9-1.1 [facility] ([facility] THE INR IS OPERATIONALLY DEFINED FOR PIPPA SH PLASMA FROM PATIENTS STABILIZED ON ORAL ANTICOAGULANTS. ROUTINE ANTICOAGULANT THERAPY 2.0-3.0 RECURRENT SYSTEMIC EMBOLISM/HEART VALVE REPLACEMENT 2.5-3.5 ID Date Data Source [id number] 11/09/2019 07:02:00 AM EDT [facility] Name Value Range Interpretation Code Description Data Maribel rce(s) Supporting Document(s) Testosterone 5 ng/dL 264-916 [facility] E89.5,I48.91,C61 Laboratory test finding (navigational concept) 3.8 pg/mL 6.6-18.1 [facility] ([facility]) E89.5,I48.91,C61 ID Date Data Source [id number] 10/20/2019 11:28:00 AM EDT [facility] [address] [place] [address] [phone] NAME SEX PT STATUS ACCOUNT NUMBER BRITTON GOMEZ REG REF [id number] ORDERING PHYSICIAN LOCATION MEDICAL RECORD NO. Mayuri Guardado DO RAD [id number] ATTENDING PHYSICIAN DATE OF DATE OF EXAM/TIME [...] Trans Dt/Tm: Trans by: DT Prt Dt/Tm: [id number]: Total DLP = 0.00 mGy-cm Fluoroscopy Time (in secs): Name Value Range Interpretation Code Description Data Maribel rce(s) Supporting Document(s) ID Date Data Source [id number] 10/20/2019 10:07:00 AM EDT [facility] Patient Name: BRITTON GOMEZ B: 1940 Sex: M Pt Unit #: [id number] Location:[facility] Provider: Visit Date/Time: 10/20/19 Primary Insurance: MEDICARE [...] anything different to change the INR number. Trailer Chief Required: No Accompanied by: Is patient in [...] Surgical History (Updated 02/02/19 @ 11:50 by [place]) History of - surgery ( 1989) History of - surgery ( 1966) History of - surgery ( 1956) History of - surgery ( 2013) History of - surgery ( 2016) Stented [...] and no acute distress Nutritional Appearance: obese [facility] Head: normocephalic and atraumatic Ears: hearing grossly [...] Acute Code(s): M54.2 - Cervicalgia SNOMED Code(s): 93381465 Category: Medical Plan - Mayuri Guardado DO: [...] rce(s) Supporting Document(s) ID Date Data Source [id number] 10/19/2019 09:52:00 AM EDT [facility] Name Value Range Interpretation Code Description Data Maribel rce(s) Supporting Document(s) Prothrombin Time (Patient) 19.8 s 9.6-12.3 Above high normal [facility] INR 2.0 0.9-1.1 Above high normal [facility] THE INR IS OPERATIONALLY DEFINED FOR PIPPA SH PLASMA FROMPATIENTS STABILIZED ON ORAL ANTICOAGULANTS.ROUTINE ANTICOAGULANT THERAPY 2.0-3.0RECURRENT SYSTEMIC EMBOLISM/HEART VALVE REPLACEMENT 2.5-3.5 ID Date Data Source [id number] 10/12/2019 10:39:00 AM [facility] Name Value Range Interpretation Code Description Data Maribel rce(s) Supporting Document(s) Prothrombin Time (Patient) 16.7 s 9.6-12.3 Above high normal [facility] INR 1.7 0.9-1.1 Above high normal [facility] THE INR IS OPERATIONALLY DEFINED FOR PIPPA SH PLASMA FROMPATIENTS STABILIZED ON ORAL ANTICOAGULANTS.ROUTINE ANTICOAGULANT THERAPY 2.0-3.0RECURRENT SYSTEMIC EMBOLISM/HEART VALVE REPLACEMENT 2.5-3.5 ID Date Data Source [id number] 09/14/2019 10:22:00 AM [facility] Patient Name: BRITTON GOMEZ DO B: 1940 Sex: M Pt Unit #: [id number] Location:[facility] Provider: Visit Date/Time: 09/14/19 Primary Insurance: MEDICARE [facility] Secondary Insurance: [facility] Intake Vital Signs 09/14/19 10:24 Current Height [...] Declines today. Pretest education received and acknowledged [facility] Medical History (Updated 08/25/19 @ 20:21 by [...] Surgical History (Updated 02/02/19 @ 11:50 by [place]) History of - surgery ( 1989) History [...] Manufactu rer 0.5 mL IM Right arm [id number] 04/25/20 [id number] [employer] D VIS Given Date VIS [...] rce(s) Supporting Document(s) ID Date Data Source [id number] 09/14/2019 10:52:00 AM [facility] Name Value Range Interpretation Code Description Data Maribel rce(s) Supporting Document(s) Prothrombin Time (Patient) 21.6 s 9.6-12.3 Above high normal [facility] INR 2.20 0.9-1.1 Above high normal [facility] THE INR IS OPERATIONALLY DEFINED FOR PIPPA SH PLASMA FROMPATIENTS STABILIZED ON ORAL ANTICOAGULANTS.ROUTINE ANTICOAGULANT THERAPY 2.0-3.0RECURRENT SYSTEMIC EMBOLISM/HEART VALVE REPLACEMENT 2.5-3.5 ID Date Data Source [id number] 09/02/2019 01:08:00 PM [facility] Name Value Range Interpretation Code Description Data Maribel rce(s) Supporting Document(s) Prothrombin Time (Patient) 23.9 s 9.6-12.3 Above high normal [facility] INR 2.5 0.9-1.1 Above high normal [facility] THE INR IS OPERATIONALLY DEFINED FOR PIPPA SH PLASMA FROMPATIENTS STABILIZED ON ORAL ANTICOAGULANTS.ROUTINE ANTICOAGULANT THERAPY 2.0-3.0RECURRENT SYSTEMIC EMBOLISM/HEART VALVE REPLACEMENT 2.5-3.5 ID Date Data Source [id number] 08/31/2019 10:06:00 AM [facility] Name Value Range Interpretation Code Description Data Maribel rce(s) Supporting Document(s) Prothrombin Time (Patient) 29.2 s 9.6-12.3 Above high normal [facility] INR 3.1 0.9-1.1 Above high normal [facility] THE INR IS OPERATIONALLY DEFINED FOR PIPPA SH PLASMA FROMPATIENTS STABILIZED ON ORAL ANTICOAGULANTS.ROUTINE ANTICOAGULANT THERAPY 2.0-3.0RECURRENT SYSTEMIC EMBOLISM/HEART VALVE REPLACEMENT 2.5-3.5 ID Date Data Source [id number] 08/13/2019 02:30:00 PM [facility] [address] [place] [address] [phone] NAME SEX PT STATUS ACCOUNT NUMBER BRITTON GOMEZ REG REF [id number] ORDERING PHYSICIAN LOCATION MEDICAL RECORD NO. Julian DO [facility] [id number] ATTENDING PHYSICIAN DATE OF DATE OF EXAM/TIME Julian Herrera DO 1940 08/13/19 / 142 TYPE / EXAM Xray Chest 2 view [...] Trans Dt/Tm: Trans by: DT Prt Dt/Tm: [id number]: Total DLP = 0.00 mGy-cm Fluoroscopy Time (in secs): Name Value Range Interpretation Code Description Data Maribel rce(s) Supporting Document(s) ID Date Data Source [id number] 08/13/2019 03:17:00 PM [facility] Name Value Range Interpretation Code Description Data Maribel rce(s) Supporting Document(s) Prothrombin Time (Patient) 27.2 s 9.6-12.3 Above high normal [facility] INR 2.8 0.9-1.1 Above high normal [facility] THE INR IS OPERATIONALLY DEFINED FOR PIPPA SH PLASMA FROMPATIENTS STABILIZED ON ORAL ANTICOAGULANTS.ROUTINE ANTICOAGULANT THERAPY 2.0-3.0RECURRENT SYSTEMIC EMBOLISM/HEART VALVE REPLACEMENT 2.5-3.5 ID Date Data Source [id number] 08/13/2019 01:18:00 PM [facility] Patient Name: BRITTON GOMEZ B: 1940 Sex: M Pt Unit #: [id number] Location:[facility] Provider: Visit Date/Time: 08/13/19 Primary Insurance: MEDICARE [facility] Secondary Insurance: [facility] Intake Vital Signs 08/13/19 13:18 Current Height [...] Declines today. Pretest education received and acknowledged [facility] Medical History (Updated 08/15/19 @ 21:21 by [...] Surgical History (Updated 02/02/19 @ 11:50 by [facility]) History of - surgery ( 1989) History [...] I48.91 - Unspecified atrial fibrillation SNOMED Code(s): 76105233 Category: Medical Qualifiers: Atrial fibrillation type: permanent [...] Acute upper respiratory infection, unspecified SNOMED Code(s): 350930371 Category: Medical Orders: Orders: Xray Chest 2 view PA/LAT 08/13/19 Prothrombin / INR, Fingerstick 08/13/19 Orders Other Orders: Orders: Xray Chest 2 view PA/LAT 08/13/19 I48.91 Prothrombin / INR, Fingerstick 08/13/19 I48.91 Prothrombin Time INR 08/13/19 I48.91 Instructions: Atrial Fibrillation (GEN) Electronically Signed By: <Electronically signed by Julian Herrera DO> Date/Time Signed: 08/15/192136 Name Value Range Interpretation Code Description Data Maribel rce(s) Supporting Document(s) ID Date Data Source [id number] 08/09/2019 09:34:00 AM EST [facility] Name Value Range Interpretation Code Description Data Maribel rce(s) Supporting Document(s) Prothrombin Time (Patient) 24.1 s 9.6-12.3 Above high normal [facility] INR 2.5 0.9-1.1 Above high normal [facility] THE INR IS OPERATIONALLY DEFINED FOR PIPPA SH PLASMA FROMPATIENTS STABILIZED ON ORAL ANTICOAGULANTS.ROUTINE ANTICOAGULANT THERAPY 2.0-3.0RECURRENT SYSTEMIC EMBOLISM/HEART VALVE REPLACEMENT 2.5-3.5 Procedure Social History Code Duration Value Status Description Data Source(s ) 09/06/2020 11:01:15 AM EST No completed No [facility] 09/06/2020 11:01:15 AM EST No completed No [facility] 09/06/2020 11:01:15 AM EST Former smoker completed Former smoker [facility] Smoking 09/06/2020 11:01:00 AM EST Former smoker completed Former smoker [facility] 08/14/2020 01:44:00 PM EST 45 yrs ago completed 45 yrs ag o [facility] 08/14/2020 01:44:00 PM EST No completed No [facility] 08/14/2020 01:44:00 PM EST 45 yrs ago completed 45 yrs ag o [facility] 08/14/2020 01:44:00 PM EST No completed No [facility] 08/14/2020 01:44:00 PM EST No completed No [facility] 08/14/2020 01:44:00 PM EST No completed No [facility] 08/14/2020 01:44:00 PM EST Former smoker completed Former smoker [facility] Smoking 08/14/2020 01:44:00 PM EST Former smoker completed Former smoker [facility] Smoking 08/14/2020 12:00:00 AM EST - 08/11/1998 12:00:00 AM EST Former Cigarette Smoker completed Former Cigarette Smoker [facility] 08/10/2020 04:52:17 PM EST Former smoker completed Former smoker [facility] Smoking 08/10/2020 04:52:00 PM EST Former smoker completed Former smoker [facility] 08/09/2020 03:40:03 PM EST No completed No [facility] 08/09/2020 03:40:03 PM EST No completed [facility] 08/09/2020 03:40:03 PM EST No completed [facility] 08/09/2020 03:40:03 PM EST No completed No [facility] 08/09/2020 03:40:03 PM EST Never smoker completed Never s [facility] Smoking 08/09/2020 03:40:00 PM EST Never smoker completed Never s [facility] Smoking 08/01/2020 12:00:00 AM EST Patient is a former smoker completed Patient is a former smoker [facility] ([facility] Smoking 05/10/2020 11:13:00 AM EDT Former smoker completed Former smoker [facility] Smoking 05/10/2020 11:13:00 AM EDT Former smoker completed Former smoker [facility] 05/10/2020 10:13:00 AM EDT Former smoker completed Former smoker [facility] 05/10/2020 10:13:00 AM EDT Former smoker completed Former smoker [facility] 05/10/2020 10:13:00 AM EDT Former smoker completed Former smoker [facility] Smoking 05/10/2020 10:13:00 AM EDT Former smoker completed Former smoker [facility] 01/23/2020 04:31:45 PM EDT No completed No [facility] 01/23/2020 04:31:45 PM EDT No completed No [facility] 01/23/2020 04:31:45 PM EDT No completed No [facility] 01/23/2020 04:31:45 PM EDT No completed No [facility] 01/23/2020 04:31:45 PM EDT No completed No [facility] 01/23/2020 04:31:45 PM EDT No completed No [facility] 01/23/2020 04:31:45 PM EDT No completed No [facility] 01/23/2020 04:31:45 PM EDT No completed No [facility] 01/23/2020 04:31:45 PM EDT No completed No [facility] 01/23/2020 04:31:45 PM EDT No completed No [facility] 01/23/2020 04:31:45 PM EDT No completed No [facility] 01/23/2020 04:31:45 PM EDT No completed No [facility] 01/23/2020 04:31:45 PM EDT No completed No [facility] 01/23/2020 04:31:45 PM EDT No completed No [facility] 01/23/2020 04:03:00 PM EDT Former smoker completed Former smoker [facility] Smoking 01/23/2020 04:03:00 PM EDT Former smoker completed Former smoker [facility] 01/23/2020 04:03:00 PM EDT Former smoker completed Former smoker [facility] Smoking 01/23/2020 04:03:00 PM EDT Former smoker completed Former smoker [facility] 01/23/2020 04:03:00 PM EDT Former smoker completed Former smoker [facility] Smoking 01/23/2020 04:03:00 PM EDT Former smoker completed Former smoker [facility] 01/23/2020 04:03:00 PM EDT Former smoker completed Former smoker [facility] Smoking 01/23/2020 04:03:00 PM EDT Former smoker completed Former smoker [facility] 12/09/2019 09:45:49 AM EDT No completed No [facility] 12/09/2019 09:45:49 AM EDT No completed No [facility] 12/09/2019 09:45:00 AM EDT Former smoker completed Former smoker [facility] 12/09/2019 09:45:00 AM EDT Former smoker completed Former smoker [facility] 12/09/2019 09:45:00 AM EDT Former smoker completed Former smoker [facility] 12/09/2019 09:45:00 AM EDT Former smoker completed Former smoker [facility] 12/09/2019 09:45:00 AM EDT Former smoker completed Former smoker [facility] Smoking 12/09/2019 09:45:00 AM EDT Former smoker completed Former smoker [facility] 12/07/2019 11:58:00 AM EDT 45 yrs ago completed 45 yrs ag o [facility] [facility] 12[facility]07[facility]2019 11:58:00 AM EDT No completed No [facility] 12/07/2019 11:58:00 AM EDT 45 yrs ago completed 45 yrs ag o [facility] 12/07/2019 11:58:00 AM EDT No completed No [facility] 12/07/2019 11:58:00 AM EDT 45 yrs ago completed 45 yrs ag o [facility] 12/07/2019 11:58:00 AM EDT No completed No [facility] 12/07/2019 11:58:00 AM EDT 45 yrs ago completed 45 yrs ag o [facility] 12/07/2019 11:58:00 AM EDT No completed No [facility] 12/07/2019 11:58:00 AM EDT 45 yrs ago completed 45 yrs ag o [facility] 12/07/2019 11:58:00 AM EDT No completed No [facility] 12/07/2019 11:58:00 AM EDT 45 yrs ago completed 45 yrs ag o [facility] 12/07/2019 11:58:00 AM EDT No completed No [facility] 12/07/2019 11:58:00 AM EDT 45 yrs ago completed 45 yrs ag o [facility] 12/07/2019 11:58:00 AM EDT No completed No [facility] 12/07/2019 11:58:00 AM EDT 45 yrs ago completed 45 yrs ag o [facility] 12/07/2019 11:58:00 AM EDT No completed No [facility] 12/07/2019 11:58:00 AM EDT 45 yrs ago completed 45 yrs ag o [facility] 12/07/2019 11:58:00 AM EDT No completed No [facility] 12/07/2019 11:58:00 AM EDT 45 yrs ago completed 45 yrs ag o [facility] 12/07/2019 11:58:00 AM EDT No completed No [facility] 12/07/2019 11:58:00 AM EDT 45 yrs ago completed 45 yrs ag o [facility] 12/07/2019 11:58:00 AM EDT No completed No [facility] 12/07/2019 11:58:00 AM EDT No completed No [facility] 12/07/2019 11:58:00 AM EDT No completed No [facility] Vital Signs ID Date Data Source UNK Name Value Range Interpretation Code Description Data Source(s) Body temperature 96.8 [degF] 96.8 [degF] ROBIN ([facility]) Heart rate 89 /min 89 /min ROBIN ([facility] Diastolic blood pressure 65 mm[Hg] 65 mm[Hg] ROBIN ([facility]) Systolic blood pressure 122 mm[Hg] 122 mm[Hg] FABIAN ([facility]) Body mass index (BMI) [Ratio] 29.0 kg/m2 29.0 k g/m2 MEDRANJANA ([facility]) Body weight 83.916 kg 83.916 kg MEDRANJANA ([facility] Body weight 185.00 [lb_av] 185.00 [lb_av] MEDEN T ([facility]) Body height 67 [in_i] 67 [in_i] ROBIN ([facility] 5'7" Diastolic blood pressure 66 mm[Hg] 66 mm[Hg] ROBIN ([facility]) sitting Systolic blood pressure 120 mm[Hg] 120 mm[Hg] M FABIAN ([facility]) sitting Diastolic blood pressure 66 mm[Hg] 66 mm[Hg] ROBIN ([facility]) sitting, regular cuff Systolic blood pressure 122 mm[Hg] 122 mm[Hg] FABIAN ([facility]) sitting, regular cuff Respiratory rate 16 /min 16 /min MEDENT ( [facility]) Heart rate 68 /min 68 /min MEDENT ([facility] Irregular Body mass index (BMI) [Ratio] 29.0 kg/m2 29.0 k g/m2 MEDENT ([facility]) Body height 67 [in_i] 67 [in_i] MEDENT ([facility] 5'7" Body weight 185.00 [lb_av] 185.00 [lb_av] MEDEN T ([facility]) Body temperature 96.8 [degF] 96.8 [degF] MEDENT ([facility]) Heart rate 86 /min 86 /min MEDENT ([facility] Diastolic blood pressure 89 mm[Hg] 89 mm[Hg] MEDENT ([facility]) Systolic blood pressure 127 mm[Hg] 127 mm[Hg] EDENT ([facility]) Body mass index (BMI) [Ratio] 29.8 kg/m2 29.8 k g/m2 MEDENT ([facility]) Body weight 86.184 kg 86.184 kg MEDENT ([facility] Body weight 190.00 [lb_av] 190.00 [lb_av] MEDEN T ([facility]) Body height 67 [in_i] 67 [in_i] MEDENT ([facility] 5'7" Body temperature 96.9 [degF] 96.9 [degF] MEDENT ([facility]) Body temperature 98.4 [degF] 98.4 [degF] MEDENT ([facility]) Heart rate 87 /min 87 /min MEDENT ([facility] Diastolic blood pressure 68 mm[Hg] 68 mm[Hg] MEDENT ([facility]) Systolic blood pressure 126 mm[Hg] 126 mm[Hg] M EDENT ([facility]) Body mass index (BMI) [Ratio] 29.1 kg/m2 29.1 k g/m2 MEDENT ([facility]) Body weight 84.370 kg 84.370 kg MEDENT ([facility] Body weight 186.00 [lb_av] 186.00 [lb_av] MEDEN T ([facility]) Body height 67 [in_i] 67 [in_i] MEDENT ([facility] 5'7" Diastolic blood pressure 66 mm[Hg] 66 mm[Hg] MEDENT ([facility]) sitting Systolic blood pressure 124 mm[Hg] 124 mm[Hg] M EDENT ([facility]) sitting Diastolic blood pressure 66 mm[Hg] 66 mm[Hg] MEDENT ([facility]) sitting, regular cuff Systolic blood pressure 122 mm[Hg] 122 mm[Hg] M EDENT ([facility]) sitting, regular cuff Respiratory rate 16 /min 16 /min MEDENT ( [facility]) Heart rate 72 /min 72 /min MEDENT ([facility]) Irregular Body mass index (BMI) [Ratio] 28.8 kg/m2 28.8 k g/m2 MEDENT ([facility]) Body height 67 [in_i] 67 [in_i] MEDENT ([facility] 5'7" Body weight 184.00 [lb_av] 184.00 [lb_av] MEDEN T ([facility]) Body temperature 97.0 [degF] 97.0 [degF] MEDENT ([facility]) Respiratory rate 18 /min 18 /min MEDENT ( [facility]) Heart rate 92 /min 92 /min MEDENT ([facility] Diastolic blood pressure 74 mm[Hg] 74 mm[Hg] MEDENT ([facility]) Systolic blood pressure 143 mm[Hg] 143 mm[Hg] M EDENT ([facility]) Body mass index (BMI) [Ratio] 29.3 kg/m2 29.3 k g/m2 MEDENT ([facility]) Body weight 84.823 kg 84.823 kg MEDENT ([facility] Body weight 187.00 [lb_av] 187.00 [lb_av] MEDEN T ([facility]) Body height 67 [in_i] 67 [in_i] MEDENT ([facility] 5'7"
[2020-10-06] MEDS: KCL 20MEQ IN D5/0.45NS 1000ML 1,000 ML IV SCH (19:00)
[2020-10-06 22:00] VITALS: BP 115/70
[2020-10-07] VITALS (7 sets, daily range): BP systolic 111–138; BP diastolic 58–80
[2020-10-07] MEDS: VANCOMYCIN 500MG/10ML VIAL PR SCH ×4 (01:15→18:00)
[2020-10-07] MEDS: KCL 20MEQ IN D5/0.45NS 1000ML 1,000 ML IV SCH ×3 (04:03→22:15)
[2020-10-07 05:45] LABS: HEMATOCRIT 35.9 % (42.0-52.0); HEMOGLOBIN 11.1 g/dl (13.5-17.5); MEAN CORPUSCULAR HEMOGLOBIN 31.7 pg (27.0-33.0); MEAN CORPUSCULAR HGB CONC 30.9 g/dl (32.0-36.5); MEAN CORPUSCULAR VOLUME 102.6 fl (80.0-96.0); PLATELET COUNT, AUTOMATED 156 10^3/uL (150-450); WHITE BLOOD COUNT 6.2 10^3/uL (4.0-10.0)
[2020-10-07 05:56] LABS: INR 3.61; PROTHROMBIN TIME 36.8 SECONDS (12.5-14.3)
[2020-10-07 06:09] LABS: CALCIUM LEVEL 9.3 MG/DL (8.8-10.2); CREATININE FOR GFR 2.44 MG/DL (0.70-1.30); GLOMERULAR FILTRATION RATE 27.3 (>35); MAGNESIUM LEVEL 1.3 MG/DL (1.8-2.4); POTASSIUM SERUM 3.5 MEQ/L (3.5-5.1)
[2020-10-07] MEDS: metroNIDAZOLE 500 MG in IV 1 EA IV SCH ×5 (06:34→22:15)
[2020-10-07] MEDS: METOPROLOL TART 12.5 MG PER 1/2 TAB PO SCH ×2 (08:05)
[2020-10-07] MEDS: PANTOPRAZOLE 40MG VIAL (C9113 PER 1) IV SCH (08:05)
[2020-10-07] MEDS: MAG SULF 1GM/100ML (MAG RUN) 1 GM in IV 1 EA IV SCH ×2 (08:05→10:33)
[2020-10-07] MEDS ORDERED: MAGNESIUM SULFATE 1GM/100ML D5W BAG (10MG/ML) As Ordered ONE (10:30)
[2020-10-07] MEDS: METOPROLOL 5 MG/5 ML VIAL IV SCH ×3 (13:43→22:15)
--- NOTE | 2020-10-07 17:37 | IPNPDOC ---
Subjective Date Seen The patient was seen on 10/07/20. Subjective Chief Complaint/HPI Mr. Manzano is an 80-year-old male who was at [facility] for rehabilitation and transferred back to inpatient hospitalization for dysphagia, aspiration pne umonia, and C. difficile diarrhea. Patient has A. fib and is on Lopressor for rate control. Due to his dysphagia, patient will be in PCU receiving IV Lopressor. This morning, he denies any chest pain. He has dyspnea and productive cough. Otherwise, he complains of left arm weakness. He says that it happened one month ago and the strength has not returned since then. Objective Physical Examination General Exam: Positive: Alert, Cooperative Eye Exam: Positive: EOMI; Negative: Sclera icteric ENT Exam: Positive: Atraumatic Neck Exam: Positive: Supple Chest Exam: Positive: Other (crackles in the lower lung hurtado) Heart Exam: Positive: Rate Normal, Irregular Rhythm Abdomen Exam: Positive: Normal bowel sounds, Soft; Negative: Tenderness Neuro Exam: Positive: Cranial Nerves 3-12 NL Psych Exam: Positive: Mental status NL, Mood NL Assessment /Plan Assessment Mr. Manzano is an 80-year-old male who was at [facility] for rehabilitation and trans ferred back to inpatient hospitalization for dysphagia, aspiration pneumonia, and C. difficile diarrhea. I spoke with speech therapy who recommended NPO diet. On Friday we can do a cookie swallow evaluation. In the meantime, we'll treat his atrial fibrillation with IV Lopressor. His INR is elevated, we will continue monitoring. For C. difficile diarrhea we'll give him IV Flagyl and rectal vancomycin. Plan/VTE VTE Prophylaxis Ordered?: Yes Plan 1. C. difficile diarrhea Unable to take orals IV metronidazole and per rectal vancomycin Cautious with antibiotics 2. Dysphagia Has had dysphagia before in the past In 2016, had respiratory failure with placement of a PEG tube and trach. There was subsequently removed Spoke with speech therapy, recommended nothing by mouth at this time. Can retry cookie swallow test on Friday We'll convert his medications to IV if possible 3. Aspiration pneumonia versus pneumonitis No fever or leukocytosis. Patient breathing at room air. Last pro calcitonin was borderline low and now has down trended. Procalcitonin is low at 0.16. Cautious with antibiotics due to C. difficile diarrhea. Continue with IV metronidazole Aspiration precautions 4. Atrial fibrillation Persistent Switch Lopressor from PO to IV Monitor INR as on warfarin. Currently supratherapeutic 5. GERD Continue PPIs as IV 6. Acute kidney injury Creatinine stable at 2.6 Nephrology is following, recommendations appreciated 7. Secondary hyperparathyroidism On calcitriol every other day 8. Debility and weakness -Patient reports 1 month of left arm weakness -Will need PT 9. DVT prophylaxis On warfarin, currently supratherapeutic Disposition: Pending cookie swallow evaluation on Friday VS, I&O, 24H, Fishbone Vital Signs/I&O Vital Signs Date Time Temp Pulse Resp B/P (MAP) Pulse Ox O2 Delivery O2 Flow Rate FiO2 10/07/20 16:00 97.0 86 18 138/78 (98) 97 Room Air I&O- Last 24 Hours up to 6 AM 10/07/20 06:00 Intake Total 0 ml Output Total 1 ml Balance -1 ml Laboratory Data 24H LABS Laboratory Tests 2 10/06/20 19:28: Procalcitonin 0.16 10/07/20 05:07: Nucleated Red Blood Cells % (auto) 0.0, Prothrombin Time 36.8H, Prothromb Time International Ratio 3.61, Anion Gap 6L, Glomerular Filtration Rate 27.3L, Calcium Level 9.3, Magnesium Level 1.3L CBC/BMP Laboratory Tests 10/07/20 05:07 JEF BOWERS DO Oct 07, 2020 17:37
[2020-10-08] VITALS (7 sets, daily range): BP systolic 116–144; BP diastolic 56–88
[2020-10-08] MEDS: VANCOMYCIN 500MG/10ML VIAL PR SCH ×4 (00:37→17:51)
[2020-10-08] MEDS: METOPROLOL 5 MG/5 ML VIAL IV SCH ×4 (05:19→22:18)
[2020-10-08] MEDS: metroNIDAZOLE 500 MG in IV 1 EA IV SCH ×3 (06:44→22:03)
[2020-10-08 08:02] LABS: HEMATOCRIT 36.4 % (42.0-52.0); HEMOGLOBIN 10.9 g/dl (13.5-17.5); MEAN CORPUSCULAR HEMOGLOBIN 30.6 pg (27.0-33.0); MEAN CORPUSCULAR HGB CONC 29.9 g/dl (32.0-36.5); MEAN CORPUSCULAR VOLUME 102.2 fl (80.0-96.0); PLATELET COUNT, AUTOMATED 159 10^3/uL (150-450); RED BLOOD COUNT 3.56 10^6/uL (4.30-6.10); WHITE BLOOD COUNT 5.7 10^3/uL (4.0-10.0)
[2020-10-08 08:14] LABS: INR 3.63
[2020-10-08 08:27] LABS: CALCIUM LEVEL 8.9 MG/DL (8.8-10.2); CREATININE FOR GFR 1.84 MG/DL (0.70-1.30); GLOMERULAR FILTRATION RATE 37.8 (>35); MAGNESIUM LEVEL 1.8 MG/DL (1.8-2.4); POTASSIUM SERUM 3.9 MEQ/L (3.5-5.1)
[2020-10-08] MEDS: PANTOPRAZOLE 40MG VIAL (C9113 PER 1) IV SCH (08:27)
[2020-10-08] MEDS: KCL 20MEQ IN D5/0.45NS 1000ML 1,000 ML IV SCH ×2 (08:28→14:58)
--- NOTE | 2020-10-08 12:28 | REP ---
INDICATION: Dysphagia, left arm weakness COMPARISON: None. TECHNIQUE: Real-time ultrasound evaluation and duplex Doppler interrogation of the extracranial carotid vasculature is performed. FINDINGS: There is mild to moderate plaquing and narrowing in both carotid bulbs extending into the internal and external carotid arteries. Luminal narrowing is less than 50%. There is no evidence of hemodynamically significant stenosis of either internal carotid artery. Normal flow velocities are seen. The vertebral arteries demonstrate normal direction of flow. RIGHT LEFT Peak systolic velocity ICA 54.7 cm/s 51.5 cm/s End diastolic velocity ICA 11.8 cm/s 14.3 cm/s Peak systolic velocity CCA 52.6 cm/s 54.7cm/s Peak systolic velocity ECA 49.4 cm/s cm/s ICA/CCA ratio 1.0 0.9 IMPRESSION: Bilateral luminal narrowing of the internal carotid arteries less than 50%. No evidence of hemodynamically significant stenosis. <Electronically signed by Devon Beavers > 10/08/20 [id number]
--- NOTE | 2020-10-08 12:37 | IPNPDOC ---
Subjective Date Seen The patient was seen on 10/08/20. Subjective Chief Complaint/HPI Mr. Manzano is an 80-year-old male who was at [facility] and transferred back to inpatient hospitalization for dysphagia, aspiration pne umonia, and C. difficile diarrhea. Patient has A. fib and is on Lopressor for rate control. Due to his dysphagia, patient will be in PCU receiving IV Lopressor. This morning, he denies any chest pain. Is breathing is better. Tried to obtain MRI and MRA, but unable due to bilateral stents in his legs. US carotids were <50%. Unable to do CT with contrast due to renal function. Objective Physical Examination General Exam: Positive: Alert, Cooperative Eye Exam: Positive: EOMI; Negative: Sclera icteric ENT Exam: Positive: Atraumatic Neck Exam: Positive: Supple Chest Exam: Positive: Other (crackles in the lower lung hurtado) Heart Exam: Positive: Rate Normal, Irregular Rhythm Abdomen Exam: Positive: Normal bowel sounds, Soft; Negative: Tenderness Neuro Exam: Positive: Cranial Nerves 3-12 NL Psych Exam: Positive: Mental status NL, Mood NL Assessment /Plan Assessment Mr. Manzano is an 80-year-old male who was at [facility] and transferred back to inpatient hospitalization for dysphagia, aspiration pneumonia, and C. difficile diarrhea. I spoke with speech therapy who recommended NPO diet. On Friday we can do a cookie swallow evaluation. In the meantime, we'll treat his atrial fibrillation with IV Lopressor. His INR is elevated, we will continue monitoring. For C. difficile diarrhea we'll give him IV Flagyl and rectal vancomycin. Will need to continue for a 10 day course. End date 10/15/2020 Plan/VTE VTE Prophylaxis Ordered?: Yes Plan 1. C. difficile diarrhea Unable to take orals IV metronidazole and per rectal vancomycin Cautious with antibiotics 2. Dysphagia Has had dysphagia before in the past In 2016, had respiratory failure with placement of a PEG tube and trach. There was subsequently removed Spoke with speech therapy, recommended nothing by mouth at this time. Can retry cookie swallow test on Friday We'll convert his medications to IV or TX if possible 3. Aspiration pneumonia versus pneumonitis No fever or leukocytosis. Patient breathing at room air. Last pro calcitonin was borderline low and now has down trended. Procalcitonin is low at 0.16. Cautious with antibiotics due to C. difficile diarrhea. Continue with IV metronidazole Aspiration precautions 4. Atrial fibrillation Persistent Switch Lopressor from PO to IV Monitor INR as on warfarin. Currently supratherapeutic 5. GERD Continue PPIs as IV 6. Acute kidney injury Creatinine stable at 2.6 Nephrology is following, recommendations appreciated 7. Secondary hyperparathyroidism On calcitriol every other day 8. Debility and weakness -Patient reports 1 month of left arm weakness -Ordered for PT/OT/[facility] 9. DVT prophylaxis On warfarin, currently supratherapeutic Disposition: Pending cookie swallow evaluation on Friday VS, I&O, 24H, Fishbone Vital Signs/I&O Vital Signs Date Time Temp Pulse Resp B/P (MAP) Pulse Ox O2 Delivery O2 Flow Rate FiO2 10/08/20 08:28 80 144/86 10/08/20 08:00 97.3 17 95 Room Air I&O- Last 24 Hours up to 6 AM 10/08/20 06:00 Intake Total 0 ml Output Total 400 ml Balance -400 ml Laboratory Data 24H LABS Laboratory Tests 2 10/08/20 07:18: Nucleated Red Blood Cells % (auto) 0.0, Prothrombin Time 37.0H, Prothromb Time International Ratio 3.63, Anion Gap 6L, Glomerular Filtration Rate 37.8, Calcium Level 8.9, Magnesium Level 1.8 CBC/BMP Laboratory Tests 10/08/20 07:18 JEF BOWERS DO Oct 08, 2020 12:37
[2020-10-08] MEDS: POLYTRIM OPTH DROPS 10ML OU SCH (22:04)
[2020-10-09] VITALS (7 sets, daily range): BP systolic 121–165; BP diastolic 62–84
[2020-10-09] MEDS: VANCOMYCIN 500MG/10ML VIAL PR SCH ×3 (00:54→12:09)
[2020-10-09] MEDS: METOPROLOL 5 MG/5 ML VIAL IV SCH ×2 (04:36→09:10)
[2020-10-09 04:51] LABS: HEMATOCRIT 36.6 % (42.0-52.0); HEMOGLOBIN 11.2 g/dl (13.5-17.5); MEAN CORPUSCULAR HEMOGLOBIN 31.3 pg (27.0-33.0); MEAN CORPUSCULAR HGB CONC 30.6 g/dl (32.0-36.5); MEAN CORPUSCULAR VOLUME 102.2 fl (80.0-96.0); PLATELET COUNT, AUTOMATED 158 10^3/uL (150-450); RED BLOOD COUNT 3.58 10^6/uL (4.30-6.10); WHITE BLOOD COUNT 6.1 10^3/uL (4.0-10.0)
[2020-10-09 05:01] LABS: INR 3.73; PROTHROMBIN TIME 37.8 SECONDS (12.5-14.3)
[2020-10-09 05:13] LABS: CALCIUM LEVEL 9.5 MG/DL (8.8-10.2); CREATININE FOR GFR 1.76 MG/DL (0.70-1.30); GLOMERULAR FILTRATION RATE 39.8 (>35); MAGNESIUM LEVEL 1.6 MG/DL (1.8-2.4)
[2020-10-09] MEDS: KCL 20MEQ IN D5/0.45NS 1000ML 1,000 ML IV SCH (06:16)
[2020-10-09] MEDS: metroNIDAZOLE 500 MG in IV 1 EA IV SCH ×2 (06:16→15:46)
[2020-10-09] MEDS ORDERED: SLF 3 ML SYR IV PRN (07:45)
[2020-10-09] MEDS ORDERED: CALCITRIOL 0.25 MCG CAP (S0169) PO SCH (09:00)
[2020-10-09] MEDS: POLYTRIM OPTH DROPS 10ML OU SCH ×4 (09:10→20:24)
[2020-10-09] MEDS: PANTOPRAZOLE 40MG VIAL (C9113 PER 1) IV SCH (09:10)
[2020-10-09] MEDS ORDERED: VARIBAR NECTAR 40% w/v 240ML SUSP BTL As Ordered ONE (13:36)
[2020-10-09] MEDS ORDERED: E-Z-PAQUE 96% w/w SUSP 176GM BTL As Ordered ONE (13:36)
[2020-10-09] MEDS ORDERED: BARIUM SULFATE 700 MG TABLET (E-Z-DISK) As Ordered ONE (13:36)
[2020-10-09] MEDS ORDERED: VARIBAR PUDDING 40% w/v 230ML TUBE As Ordered ONE (13:36)
[2020-10-09] MEDS: SLF 3 ML SYR IV SCH (14:00)
[2020-10-09] MEDS ORDERED: ACETAMINOPHEN TAB 650MG DOSE (2X325MG) PO PRN (15:45)
[2020-10-09] MEDS: ASPIRIN 81 MG ENTERIC TAB PO SCH (16:14)
[2020-10-09] MEDS: TAMSULOSIN 0.4 MG CAP PO SCH (16:15)
--- NOTE | 2020-10-09 16:46 | REP ---
INDICATION: Evaluate for dysphagia. COMPARISON: None. TECHNIQUE: The procedure was performed by GONZALO Mercado, under the direct supervision of Dr. Beavers. The procedure was performed with Bree Machado from speech pathology present. 5 ml aliquots of nectar, pudding, mixed fruit with a putting base, and honey thick consistency barium was administered. FINDINGS: Aspiration was visualized multiple times during this exam. The detailed report of this examination will be provided by speech pathology. IMPRESSION: Aspiration was visualized, a detailed report will be provided by speech pathology. 2.4 minutes of fluoroscopy time was utilized for this procedure. Some fluoroscopic images are performed with last image hold technology. These images require no additional radiation <Electronically signed by Lisa Bustillos > 10/09/20 [id number] <Electronically signed by Devon Beavers > 10/09/20 [id number]
[2020-10-09] MEDS: VANCOMYCIN ORAL SOL 250MG/5ML ORAL SYRINGE PO SCH (17:53)
[2020-10-09] MEDS: METOPROLOL TART 12.5 MG PER 1/2 TAB PO SCH (20:24)
[2020-10-09] MEDS ORDERED: FINASTERIDE 5 MG TAB PO SCH (21:00)
--- NOTE | 2020-10-09 21:43 | IPNPDOC ---
Subjective Date Seen The patient was seen on 10/09/20. Subjective Chief Complaint/HPI Mr. Manzano is an 80-year-old male who was at [facility] and transferred back to inpatient hospitalization for dysphagia, aspiration pneu monia, and C. difficile diarrhea. Today he felt hungry and wanted to eat. Denies any chest pain or dyspnea. Speech therapy evaluated patient recommended pured diet with pudding thick liquids. Restarted patient's oral medications and put patient on a diet. Otherwise his C. difficile has been controlled. Objective Physical Examination General Exam: Positive: Alert, Cooperative Eye Exam: Positive: EOMI; Negative: Sclera icteric ENT Exam: Positive: Atraumatic Neck Exam: Positive: Supple Chest Exam: Positive: Other (crackles in the lower lung hurtado) Heart Exam: Positive: Rate Normal, Irregular Rhythm Abdomen Exam: Positive: Normal bowel sounds, Soft; Negative: Tenderness Neuro Exam: Positive: Cranial Nerves 3-12 NL Psych Exam: Positive: Mental status NL, Mood NL Assessment /Plan Assessment Mr. Manzano is an 80-year-old male who was at [facility] and transferred back to inpatient hospitalization for dysphagia, aspiration pneumonia, and C. difficile diarrhea. On 10/06/2020, I spoke with speech therapy who recommended NPO diet. On 10/09/2020, speech therapy reevaluated the patient. Recommend pured diet and pudding thick liquids. Restarted patient's by mouth medications. Otherwise patient is on IV Flagyl and now by mouth vancomycin. C. difficile under control. Will need to continue for a 10 day course. End date 10/15/2020. Patient will most likely need rehabilitation. PT and OT are following Plan/VTE VTE Prophylaxis Ordered?: Yes Plan 1. C. difficile diarrhea Now able to take orals IV metronidazole and PO vancomycin Continue until 10/15/2020 Diarrhea controlled 2. Dysphagia Has had dysphagia before in the past In 2016, had respiratory failure with placement of a PEG tube and trach. There was subsequently removed Spoke with speech therapy, now recommending pure diet with pudding thick liquids 3. Aspiration pneumonia versus pneumonitis No fever or leukocytosis. Patient breathing at room air. Last pro calcitonin was borderline low and now has down trended. Procalcitonin is low at 0.16. Cautious with antibiotics due to C. difficile d iarrhea. Continue with IV metronidazole Aspiration precautions 4. Atrial fibrillation Persistent On PO Lopressor Monitor INR as on warfarin. Currently supratherapeutic 5. GERD PO PPI 6. Acute kidney injury Creatinine improving to 1.76 Continue IV fluids. Unlikely patient would consume adequate fluids due to pudding thick liquids 7. Secondary hyperparathyroidism On calcitriol every other day 8. Debility and weakness -Patient reports 1 month of left arm weakness Unable to obtain MRI/MRA due to bilateral stents and legs for peripheral vascular disease Unable to do CT angiogram due to acute kidney injury -Ordered for PT/OT/[facility] 9. DVT prophylaxis On warfarin, currently supratherapeutic Disposition: Most likely will need rehabilitation at end of hospitalization. VS, I&O, 24H, Fishbone Vital Signs/I&O Vital Signs Date Time Temp Pulse Resp B/P (MAP) Pulse Ox O2 Delivery O2 Flow Rate FiO2 10/09/20 20:00 97.4 101 16 121/62 (81) 94 Room Air I&O- Last 24 Hours up to 6 AM 10/09/20 05:59 Intake Total 800 ml Output Total 400 ml Balance 400 ml Laboratory Data 24H LABS Laboratory Tests 2 10/09/20 04:34: Nucleated Red Blood Cells % (auto) 0.0, Prothrombin Time 37.8H, Prothromb Time International Ratio 3.73, Anion Gap 2L, Glomerular Filtration Rate 39.8, Calcium Level 9.5, Magnesium Level 1.6L CBC/BMP Laboratory Tests 10/09/20 04:34 JEF BOWERS DO Oct 09, 2020 21:43
[2020-10-10] VITALS: BP 150/62
[2020-10-10] MEDS: metroNIDAZOLE 500 MG in IV 1 EA IV SCH ×2 (02:17→06:16)
[2020-10-10] MEDS: KCL 20MEQ IN D5/0.45NS 1000ML 1,000 ML IV SCH (02:17)
[2020-10-10] MEDS: VANCOMYCIN ORAL SOL 250MG/5ML ORAL SYRINGE PO SCH ×3 (02:20→12:22)
[2020-10-10] MEDS: SLF 3 ML SYR IV SCH ×2 (02:21→06:15)
[2020-10-10 04:00] VITALS: BP 128/73
[2020-10-10 05:14] LABS: HEMATOCRIT 37.5 % (42.0-52.0); HEMOGLOBIN 11.3 g/dl (13.5-17.5); MEAN CORPUSCULAR HEMOGLOBIN 30.7 pg (27.0-33.0); MEAN CORPUSCULAR HGB CONC 30.1 g/dl (32.0-36.5); MEAN CORPUSCULAR VOLUME 101.9 fl (80.0-96.0); PLATELET COUNT, AUTOMATED 149 10^3/uL (150-450); RED BLOOD COUNT 3.68 10^6/uL (4.30-6.10); WHITE BLOOD COUNT 6.6 10^3/uL (4.0-10.0)
[2020-10-10 05:26] LABS: INR 3.36; PROTHROMBIN TIME 34.8 SECONDS (12.5-14.3)
[2020-10-10 05:34] LABS: CREATININE FOR GFR 1.67 MG/DL (0.70-1.30); GLOMERULAR FILTRATION RATE 42.2 (>35); MAGNESIUM LEVEL 1.4 MG/DL (1.8-2.4)
[2020-10-10 07:19] VITALS: BP 145/81
[2020-10-10] MEDS: METOPROLOL TART 12.5 MG PER 1/2 TAB PO SCH (08:42)
[2020-10-10] MEDS: TAMSULOSIN 0.4 MG CAP PO SCH (08:42)
[2020-10-10] MEDS: ASPIRIN 81 MG ENTERIC TAB PO SCH (08:43)
[2020-10-10] MEDS: POLYTRIM OPTH DROPS 10ML OU SCH ×2 (08:43→12:22)
[2020-10-10] MEDS ORDERED: PANTOPRAZOLE 40MG TAB (PROTONIX) PO SCH (09:00)
--- NOTE | 2020-10-10 11:24 | DS.PDOC ---
Discharge Summary General Date of Admission Oct 06, 2020 at 18:15 Date of Discharge 10/10/2020 Discharge Summary PROCEDURES PERFORMED DURING STAY: [None]. ADMITTING DIAGNOSES: c difficile infection dysphagia aspiration pneumonitis atrial fibrillation GERD VINH secondary hyperparathyroidism DISCHARGE DIAGNOSES: c difficile infection dysphagia aspiration pneumonitis atrial fibrillation GERD VINH secondary hyperparathyroidism COMPLICATIONS/CHIEF COMPLAINT: Aspiration Pneumonia C Diff. HISTORY OF PRESENT ILLNESS: Mr. Manzano is an 80-year-old male who was at [facility] for rehabilitation and transferred back to inpatient hospitalization for dysphagia, aspiration pneumonia, and C. difficile diarrhea. Patient has A. fib and is on Lopressor for rate control. Due to his dysphagia, patient will be in PCU receiving IV Lopressor. Mr. Manzano is originally admitted on 09/06/2020. Is a transfer from [facility] for shock requiring pressors and acute kidney injury. Initially, it was unclear if it was septic shock or hypovolemic shock from nausea, vomiting, and diarrhea. Patient was empirically on Flagyl and Cipro initially. Eventually this was discontinued with suspicion that this hypovolemic shock. Due to patient's oliguric acute renal failure, patient was put on CRRT. Patient eventually improved, and was taken off of dialysis. Patient was sent to ARU on 09/13/2020. While at rehabilitation, Mr. Manzano developed dysphasia as well as C. difficile diarrhea. Today he was evaluated by speech therapy. He failed a swallow evaluation. He aspirated on honey thick. Patient was made NPO. Patient was transferred to the [facility] for higher level of care. I saw Mr. Manzano while he was at [facility]. He denied any fevers, chest pain, abdominal pain, or dysuria. He reported that he is having worsening dyspnea. He also reports a still has a lot of diarrhea. Patient will be admitted for dysphagia, aspiration pneumonia, and C. difficile diarrhea. HOSPITAL COURSE: Mr. Manzano is an 80-year-old male who was at [facility] for swetha abilitation and transferred back to inpatient hospitalization for dysphagia, questionable aspiration pneumonia, and C. difficile infection. He was treated with PO vancomycin and IV flagyl (x 5 days). He was evaluated by speech therapy on 10/06/20, recommending NPO, and on subsequent re-eval on 10/09/20, recommended pureed diet and pudding thick liquids. Patient's diuretics were held on transfer from [facility], but resumed on DC, now taking torsemide 20 mg daily. I spoke to Dr. Brittanie Chávez, who agreed with resuming diuretics, and to continue to monitor fluid status while at ARU. On day of DC, patient was saturating 99% on RA, he was afebrile throughout his admission, had no cough or sputum. For this reason, antibiotics were not started for questionable aspiration pneumonia. Procal was slightly elevated on 10/06/20 at 0.16, but this may be due to reduced renal function. 1. C. difficile diarrhea Now able to take orals IV metronidazole (5 days) and PO vancomycin (5 days) - stop IV metronidazole on DC to ARU. Continue PO vancomycin until 10/15/2020 Diarrhea controlled 2. Dysphagia Has had dysphagia before in the past In 2015, had respiratory failure with placement of a PEG tube and trach. There was subsequently removed -Per speech therapy on 10/09/20, now recommending pure diet with pudding thick liquids 3. Aspiration pneumonia versus pneumonitis No fever or leukocytosis. Patient breathing at room air. Last pro calcitonin was borderline low and now has down trended. Procalcitonin is low at 0.16. Cautious with antibiotics due to C. difficile diarrhea - stopped IV metronidazole Aspiration precautions, was seen by ST, recommending pure diet with pudding thick liquids 4. Atrial fibrillation Persistent On PO Lopressor Monitor INR as on warfarin. Currently supratherapeutic, 3.36 on 10/10/20 - resume warfarin once INR falls below 3 (goal 2-3) 5. GERD PO PPI 6. Acute kidney injury Cr improving Stop IVF, start torsemide as having mild crackles - would monitor fluid status, currently on pudding thick liquids, may require gently IVF in ARU. 7. Secondary hyperparathyroidism On calcitriol every other day 8. Debility and weakness -Patient reports 1 month of left arm weakness Unable to obtain MRI/MRA due to bilateral stents and legs for peripheral vascular disease Unable to do CT angiogram due to acute kidney injury - carotid US (bilat) shows no severe stenosis -ARU accepted 9. DVT prophylaxis On warfarin, currently supratherapeutic DISCHARGE MEDICATIONS: Please see below. ALLERGIES: Please see below. PHYSICAL EXAMINATION ON DISCHARGE: VITAL SIGNS: please see below General: NAD, comfortable HEENT: PERRLA, EOMI, sclerae clear Neck: supple, normal ROM, no JVD Respiratory: mild crackles in lung bases, no wheeze, no rales CVS: irtegular, normal S1, S2 Abdo: soft, no masses, no hepatosplenomegaly, BS+, no rebound tenderness Extremities: no edema MSK: no joint deformities, normal ROM Neuro: no focal neuro deficits, moving all 4 extremities, CN2-12 intact Psych: calm, cooperative, AAO x 3 LABORATORY DATA: Please see below. IMAGING: Esophagus XR (10/09/20): TECHNIQUE: The procedure was performed by Lisa Bustillos, [facility], under the direct supervision of Dr. Beavers. The procedure was performed with Bree Machado from speech pathology present. 5 ml aliquots of nectar, pudding, mixed fruit with a putting base, and honey thick consistency barium was administered. FINDINGS: Aspiration was visualized multiple times during this exam. The detailed report of this examination will be provided by speech pathology. IMPRESSION: Aspiration was visualized, a detailed report will be provided by speech pathology. 2.4 minutes of fluoroscopy time was utilized for this procedure. Some fluoroscopic images are performed with last image hold technology. These images require no additional radiation Bilateral carotid duplex (10/08/20): FINDINGS: There is mild to moderate plaquing and narrowing in both carotid bulbs extending into the internal and external carotid arteries. Luminal narrowing is less than 50%. There is no evidence of hemodynamically significant stenosis of either internal carotid artery. Normal flow velocities are seen. The vertebral arteries demonstrate normal direction of flow. RIGHT LEFT Peak systolic velocity ICA 54.7 cm/s 51.5 cm/s End diastolic velocity ICA 11.8 cm/s 14.3 cm/s Peak systolic velocity CCA 52.6 cm/s 54.7cm/s Peak systolic velocity ECA 49.4 cm/s cm/s ICA/CCA ratio 1.0 0.9 IMPRESSION: Bilateral luminal narrowing of the internal carotid arteries less than 50%. No evidence of hemodynamically significant stenosis. PROGNOSIS: good ACTIVITY: As tolerated DIET: pure diet with pudding thick liquids DISCHARGE PLAN: transfer to ARU DISPOSITION: ARU DISCHARGE INSTRUCTIONS: - monitor fluid status, presently stopped IVF as had mild crackles, resumed torsemide 20 mg - diet is pudding thick liquids, may require gently IVF if overdiuresed - monitor INR, presently 3.36, ok to resume once 2-3. DISCHARGE CONDITION: [Stable]. TIME SPENT ON DISCHARGE: 35 minutes Vital Signs/I&Os Vital Signs Date Time Temp Pulse Resp B/P (MAP) Pulse Ox O2 Delivery O2 Flow Rate FiO2 10/10/20 07:19 97.7 88 18 145/81 (102) 95 Room Air I&O- Last 24 Hours up to 6 AM 10/10/20 06:00 Intake Total 2310 ml Output Total 875 ml Balance 1435 ml Laboratory Data Labs 24H Laboratory Tests 2 10/10/20 04:51: Nucleated Red Blood Cells % (auto) 0.0, Prothrombin Time 34.8H, Prothromb Time International Ratio 3.36, Anion Gap 4L, Glomerular Filtration Rate 42.2, Calcium Level 9.0, Magnesium Level 1.4L CBC/BMP Laboratory Tests 10/10/20 04:51 Discharge Medications Scheduled Aspirin (Aspirin EC) 81 Mg Tablet.dr, 81 MG PO DAILY Calcitriol (Calcitriol) 0.25 Mcg Capsule, 0.25 MCG PO Q2D, (Reported) Darbepoetin Bharat in Polysorbat (Aranesp) 200 Mcg/0.4 Ml Syringe, 100 MCG SC Mo@0900 Finasteride (Finasteride) 5 Mg Tablet, 5 MG PO QHS Hydrocortisone (Proctozone-Hc) 30 Gm Crm.pe.dawn, 0 DOSE TOP TID Metoprolol Tartrate (Metoprolol Tartrate) 25 Mg Tablet, 12.5 MG PO BID, (Reported) Nystatin (Nystop) 60 Gm Powder, 1 DOSE TOP BID Omeprazole (Omeprazole) 40 Mg Capsule.dr, 40 MG PO DAILY, (Reported) Polymyxin B Sulf/Trimethoprim (Polymyxin B-Tmp Eye Drops) 10 Ml Drops, 1 DROP OU QID Tamsulosin HCl (Flomax) 0.4 Mg Capsule, 0.4 MG PO DAILY Torsemide (Torsemide) 20 Mg Tablet, 1 TAB PO DAILY Vancomycin HCl (Firvanq) 50 Mg/1 Ml Soln.recon, 125 MG PO Q6H [Zinc Oxide/Petrolatum,White] 1 DOSE/113 GM PASTE, 0 DOSE TOP TID Scheduled PRN Acetaminophen (Acetaminophen) 325 Mg Tablet, 650 MG PO Q4HP PRN for PAIN OR FEVER Albuterol Sulfate (Proair Hfa) 8.5 Gm Hfa.aer.ad, 2 PUFF INH Q6H PRN for SOB/WHEEZING, (Reported) [Colloidal Oatmeal] 1 EA BAR, 0 EA TOP Q6H PRN for back itch Allergies Coded Allergies: No Known Allergies (Unverified , 01/28/19) LINDA LONGORIA MD Oct 10, 2020 11:24
[2020-10-10 11:43] VITALS: BP 132/76
[2020-10-10] MEDS ORDERED: POLY2.5S OU (12:05)
[2020-10-10] MEDS ORDERED: FLOM0.4C39 PO (12:05)
[2020-10-10] MEDS ORDERED: ACET1TAB55 PO (12:05)
[2020-10-10] MEDS ORDERED: FINA5TAB2 PO (12:05)
[2020-10-10] MEDS ORDERED: TORS20TA2 PO (12:05)
[2020-10-10] MEDS ORDERED: FIRV50SO PO (12:05)
[2020-10-10] MEDS ORDERED: ASPI-569 PO (12:05)
[2020-10-10 15:28] VITALS: BP 142/77
== END 2020-10-10 16:30 | DRG 372 ==
LOC: M PCU 18:15
PROVIDERS: ADMIT Internal Medicine; ATTEND Family Medicine
DX: A04.72 Enterocolitis due to Clostridium difficile, not specified as recurrent (principal); I48.19 Other persistent atrial fibrillation; N25.81 Secondary hyperparathyroidism of renal origin; N17.9 Acute kidney failure, unspecified; R53.1 Weakness; K21.9 Gastro-esophageal reflux disease without esophagitis; I73.9 Peripheral vascular disease, unspecified; Z95.820 Peripheral vascular angioplasty status with implants and grafts; R13.10 Dysphagia, unspecified; N18.9 Chronic kidney disease, unspecified; N40.0 Benign prostatic hyperplasia without lower urinary tract symptoms; Z85.46 Personal history of malignant neoplasm of prostate

== ENCOUNTER 2020-10-10 13:07 | Inpatient (IN) | payer MEDICARE ==
[~2020-10-10] VITALS: Ht 170.2 cm; Wt 74.1 kg
[~2020-10-10 13:07] MED LIST changes: +ACET1TAB55 PO; +ARAN200I3 SC; +COLLOIDAL OATMEAL TOP; +FIRV50SO PO; +METR1INJ2 IV; +NYST10006 TOP; +POLY2.5S OU; +PROC1CRE5 TOP; +TORS20TA2 PO; +Zinc Oxide/Petrolatum,White TOP
[2020-10-10 17:00] VITALS: BP 139/78
[2020-10-10] MEDS: REMEDY PHYTOPLEX Z-GUARD PASTE 113GM TUBE (FROM STOREROOM PRODUCT) TOP SCH (18:00)
[2020-10-10] MEDS: POLYTRIM OPTH DROPS 10ML OU SCH ×2 (18:00→20:20)
[2020-10-10] MEDS: LACTOBACILLUS ACIDOPHILUS CAP (BACID) PO SCH ×2 (18:48→20:22)
[2020-10-10] MEDS: VANCOMYCIN ORAL SOL 250MG/5ML ORAL SYRINGE PO SCH (18:49)
[2020-10-10 20:00] VITALS: BP 132/70
[2020-10-10] MEDS: FINASTERIDE 5 MG TAB PO SCH (20:20)
[2020-10-10] MEDS: NYSTATIN 100,000 UNITS/GM TOPICAL PWD 15 GM TOP SCH (20:20)
[2020-10-10] MEDS: METOPROLOL TART 12.5 MG PER 1/2 TAB PO SCH (20:21)
[2020-10-11] MEDS: REMEDY PHYTOPLEX Z-GUARD PASTE 113GM TUBE (FROM STOREROOM PRODUCT) TOP SCH ×5 (00:04→21:40)
[2020-10-11] MEDS: VANCOMYCIN ORAL SOL 250MG/5ML ORAL SYRINGE PO SCH ×4 (00:04→18:06)
[2020-10-11 04:29] VITALS: BP 132/80
[2020-10-11] MEDS: POLYTRIM OPTH DROPS 10ML OU SCH ×6 (05:13→21:40)
[2020-10-11] MEDS: ACETAMINOPHEN TAB 650MG DOSE (2X325MG) PO PRN ×2 (05:13→21:58)
[2020-10-11 05:17] LABS: BASO % 0.4 % (0.0-1.0); EOS # 0.4 10^3/uL (0.0-0.5); EOS % 5.4 % (0.0-3.0); HEMATOCRIT 35.9 % (42.0-52.0); HEMOGLOBIN 10.9 g/dl (13.5-17.5); LYMPH # 1.2 10^3/uL (1.5-5.0); LYMPH % 18.1 % (24.0-44.0); MEAN CORPUSCULAR HEMOGLOBIN 30.9 pg (27.0-33.0); MEAN CORPUSCULAR HGB CONC 30.4 g/dl (32.0-36.5); MEAN CORPUSCULAR VOLUME 101.7 fl (80.0-96.0); MONO # 0.5 10^3/uL (0.0-0.8); NEUTROPHILS # 4.7 10^3/uL (1.5-8.5); NEUTROPHILS % 68.4 % (36.0-66.0); PLATELET COUNT, AUTOMATED 163 10^3/uL (150-450); RED BLOOD COUNT 3.53 10^6/uL (4.30-6.10); WHITE BLOOD COUNT 6.8 10^3/uL (4.0-10.0)
[2020-10-11 05:48] LABS: ALBUMIN 2.6 GM/DL (3.2-5.2); BILIRUBIN,TOTAL 0.4 MG/DL (0.2-1.0); CALCIUM LEVEL 9.3 MG/DL (8.8-10.2); CREATININE FOR GFR 1.6 MG/DL (0.70-1.30); GLOMERULAR FILTRATION RATE 44.4 (>35); POTASSIUM SERUM 4.2 MEQ/L (3.5-5.1); TOTAL PROTEIN 5.1 GM/DL (6.4-8.2)
[2020-10-11] MEDS: LACTOBACILLUS ACIDOPHILUS CAP (BACID) PO SCH ×4 (07:44→21:56)
[2020-10-11] MEDS: CALCITRIOL 0.25 MCG CAP (S0169) PO SCH (07:44)
[2020-10-11] MEDS: TAMSULOSIN 0.4 MG CAP PO SCH (07:44)
[2020-10-11] MEDS: PANTOPRAZOLE 40MG TAB (PROTONIX) PO SCH (07:44)
[2020-10-11] MEDS: METOPROLOL TART 12.5 MG PER 1/2 TAB PO SCH ×2 (07:45→21:57)
[2020-10-11] MEDS: ASPIRIN 81 MG CHEW TABLET PO SCH (07:45)
[2020-10-11] MEDS: NYSTATIN 100,000 UNITS/GM TOPICAL PWD 15 GM TOP SCH ×2 (07:47→21:40)
--- NOTE | 2020-10-11 08:56 | HPEPDOC ---
Burner Hand Note DATE OF ADMISSION: 10-10-20 DATE OF SERVICE: 10-11-20 TIME OF ADMISSION: Please refer to physician's admission order. SOURCE OF ADMISSION INFORMATION: [facility] record and patient CHIEF COMPLAINT: C diff infection and aspiration PNA HISTORY OF PRESENT ILLNESS: 80M pmh afib on Coumadin, COPD, CHF, BPH, C diff infection, dysphagia requiring temporary PEG, CAD s/p CABG with stent, s/p aortic valve replacement (bovine), s/p bilat LE stents, prostate cancer who transferred to [facility] on 09-06-20 from [facility] following a fall at home in the setting of a diarrheal infection and ongoing hematuria, was found to be hypotensive and in acute renal failure with a supratherapeutic INR. He was started on CVVHD for his acute oliguric RF and to treat his acute CHF exacerbation. He was followed closely by renal, showed improved urine output with relatively stable kidney function, was weaned off oxygen, evaluated by therapy and deemed medically appropriate for discharge to ARU on 09-13-20 for mobility and ADl impairments. On ARU he had waxing and waning left sided weakness, CTH was negative for acute intracranial pathology and MRI unable to be performed due to LE stenting. He developed dysphagia with aspiration PNA in addition to diarrhea with positive C diff for which he was treated with IV flagyl and po vancomycin. He then failed a modified barium swallow on 10-06-20 after which he was made NPO and transferred to PCU for further monitoring. He was noted to have an elevated INR for which his Coumadin was held, and continued on antibiotics. He had another MBS on 10-09-20 and was upgraded to puree and pudding thickened liquids, noted to still have considerable mobility and ADL impairments in therapy and deemed medically appropriate for discharge to ARU on 10-10-20 REVIEW OF SYSTEMS: The following is a completed review of systems and has been reviewed. Review of systems otherwise unremarkable. PAIN: Patient self reports no pain EYES: No recent vision changes EARS, NOSE, & THROAT: +dysphagia CARDIOVASCULAR: Denies chest pain or palpitations PULMONARY: Denies shortness of breath GASTROINTESTINAL: Denies constipation/diarrhea GENITOURINARY: +macedo MUSCULOSKELETAL: generalized weakness NEUROLOGICAL:denies tremor, +bilat LE and UE paresthesias HEMATOLOGICAL: denies easy bruising SKIN: left groin catheter PSYCHIATRIC: Unremarkable All other review of systems found to be negative. PAST MEDICAL HISTORY: as per HPI PAST SURGICAL HISTORY: as per HPI ALLERGIES: Please see below. MEDICATIONS: Please see below. FAMILY HISTORY: cardiac SOCIAL HISTORY: No etoh/illicit drugs/smoking DIET: puree and pudding PHYSICAL EXAMINATION: VITAL SIGNS: Please see below. GENERAL: Pleasant and cooperative. No acute distress. HEENT: PERRL. Extraocular movements intact. mild left facial droop CARDIOVASCULAR: Regular rate and rhythm. No murmurs, rubs, or gallops LUNGS: Clear to auscultation bilaterally. No wheezes. No rhonchi ABDOMEN: Soft, nontender, nondistended. Positive bowel sounds. Normal active bowel sounds NEUROLOGICAL: Alert and oriented times three. Cranial nerves II through XII grossly intact. Sensation grossly diminished to light touch in stocking/glove pattern) EXTREMITIES: RUE eblow flexion/extension 5/5, wrist extension 5/5, car repairer 4/5 (finger deformity from old injury), RLE 5/5, Left elbow flexion/extension wrist extension, car repairer 3+/5, left hip flexors >3/5 (limited due to groin pain) knee extension 4/5, ankle DF 3+/5 (+) bilat LE edema, LUE edema with ecchymosis LABORATORY DATA: Please see below. IMAGING: Imaging documentation personally reviewed by record FUNCTIONAL STATUS: Premorbid: Independent with all activities of daily life as well as mobility On Admission: Min-Mod assist for bed mobility, functional transfers, ambulation, dressing GOALS: Mod-I functional transfers, household ambulation, dressing, toileting, bathing, grooming ASSESSMENT:80-year-old M with past medical history of COPD, CHF who presents status post oliguric renal failure PLAN: 1. 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 Neuro- patient with left sided weakness and facial droop not acute, CT's done inhouse to r/o infarct which was negative, however unable to get MRi to due LE stenting -peripheral polyneuropathy possibly due to PVD and/or spinal stenosis 3. Cardiac- hx of Afib and aortic valve replacement (bovine) on Warfarin (held at this time due to supratherapeutic INR) and metoprolol, monitor daily INRs, hx CAD s/p CABG c/u ASA -probable diastolic CHF- daily weights, fluid restrict, renal following closely for fluid management- diuretics per their recs -HLD- c/u statin 4. Resp- hx of COPD s/p tx for aspiration PNA, c/u supplemental oxygen prn , c/u duonebs, monitor for infection 5. renal- CKD and anemia renal following closely 6. - hx of BPH, c/u finasteride and flomax, c/u macedo for retention 7. GI ppx- hx of C diff infection, currently on oral vanco for recurrence 8. DVT ppx- warfarin on hold while INR supra-therapeutic, will order LUE doppler to r/o clot due to swelling 9. Pain- tylnenol prn 10. Dispo- TBD POST ADMISSION PHYSICIAN EVALUATION: Medical and functional status: Description of medical status, medical assessment: As above. Rehabilitation diagnosis and current and prior cold morbid medical conditions as above. Risk of complications and plans to mitigate them as above. Description of functional status current status is as above. Prior status as above. Status compared to preadmission: There are no clinically significant differences between the patient's current status and the information described on the preadmission screening document. Treatment plan anticipated: Treatment plan is as described above. Required disciplines including physical therapy, occupational therapy, others as noted above. Intensity of services: 3 hours a day, 6 days a week. Special considerations: There are no specific special or safety considerations that would likely preclude immediate implementation of an intensive rehabilitation program or subsequently influence the plan of care. ATTESTATION: Considering all the information above, it is my best judgment that this patient requires intensive rehabilitation therapy as described above and an inpatient hospital environment due to the complexity of nursing, medical, and rehabilitation needs required by the patient. Furthermore, this patient can reasonably be expected to participate in an benefit from an inpatient rehabilitation stay with an interdisciplinary team approach to the delivery of rehabilitation care under the direction and supervision of rehabilitation physician PROGNOSIS: fair ESTIMATED LENGTH OF STAY:14-18 days. PROJECTED DISCHARGE DESTINATION: Home with family support and any durable medical equipment required to increase functional safety and mobility. TIME SPENT COUNSELING AND COORDINATING INITIAL CARE: Greater than 70 minutes. Vital Signs Vital Sign - Last 24 Hours 10/10/20 10/10/20 10/10/20 10/11/20 17:00 20:00 20:21 04:29 Temp 98.2 96.0 97.0 Pulse 68 85 85 93 Resp 18 18 20 B/P (MAP) 139/78 (98) 132/70 (90) 132/70 132/80 (97) Pulse Ox 96 96 93 O2 Delivery Room Air Room Air Room Air 10/11/20 07:45 Pulse 93 B/P (MAP) 132/80 Laboratory Data CBC/BMP Laboratory Tests 10/11/20 04:56 Labs 24H Laboratory Tests 2 10/11/20 04:56: Immature Granulocyte % (Auto) 0.7, Neutrophils (%) (Auto) 68.4H, Lymphocytes (%) (Auto) 18.1L, Monocytes (%) (Auto) 7.0, Eosinophils (%) (Auto) 5.4H, Basophils (%) (Auto) 0.4, Neutrophils # (Auto) 4.7, Lymphocytes # (Auto) 1.2L, Monocytes # (Auto) 0.5, Eosinophils # (Auto) 0.4, Basophils # (Auto) 0.0, Nucleated Red Blood Cells % (auto) 0.0, Anion Gap 5L, Glomerular Filtration Rate 44.4, Calcium Level 9.3, Total Bilirubin 0.4, Aspartate Amino Transf (AST/SGOT) 9, Alanine Aminotransferase (ALT/SGPT) 12, Alkaline Phosphatase 104, Total Protein 5.1L, Albumin 2.6L, Albumin/Globulin Ratio 1.0 Home Medications Scheduled Aspirin (Aspirin EC) 81 Mg Tablet.dr, 81 MG PO DAILY Calcitriol (Calcitriol) 0.25 Mcg Capsule, 0.25 MCG PO Q2D, (Reported) Darbepoetin Bharat in Polysorbat (Aranesp) 200 Mcg/0.4 Ml Syringe, 100 MCG SC Mo@0900 Finasteride (Finasteride) 5 Mg Tablet, 5 MG PO QHS Hydrocortisone (Proctozone-Hc) 30 Gm Crm.pe.dawn, 0 DOSE TOP TID Metoprolol Tartrate (Metoprolol Tartrate) 25 Mg Tablet, 12.5 MG PO BID, (Reported) Nystatin (Nystop) 60 Gm Powder, 1 DOSE TOP BID Omeprazole (Omeprazole) 40 Mg Capsule.dr, 40 MG PO DAILY, (Reported) Polymyxin B Sulf/Trimethoprim (Polymyxin B-Tmp Eye Drops) 10 Ml Drops, 1 DROP OU QID Tamsulosin HCl (Flomax) 0.4 Mg Capsule, 0.4 MG PO DAILY Torsemide (Torsemide) 20 Mg Tablet, 1 TAB PO DAILY Vancomycin HCl (Firvanq) 50 Mg/1 Ml Soln.recon, 125 MG PO Q6H [Zinc Oxide/Petrolatum,White] 1 DOSE/113 GM PASTE, 0 DOSE TOP TID Scheduled PRN Acetaminophen (Acetaminophen) 325 Mg Tablet, 650 MG PO Q4HP PRN for PAIN OR FEVER Albuterol Sulfate (Proair Hfa) 8.5 Gm Hfa.aer.ad, 2 PUFF INH Q6H PRN for SOB/WHEEZING, (Reported) [Colloidal Oatmeal] 1 EA BAR, 0 EA TOP Q6H PRN for back itch Allergies Coded Allergies: No Known Allergies (Unverified , 01/28/19) A-FIB/CHADSVASC A-FIB History Current/History of A-Fib/PAF?: Yes Current PO Anticoag Therapy: No WONG SIMMONS MD Oct 11, 2020 08:56
[2020-10-11] MEDS ORDERED: TORSEMIDE 20 MG TAB PO SCH (09:00)
[2020-10-11 13:04] LABS: INR 2.98; PROTHROMBIN TIME 31.7 SECONDS (12.5-14.3)
[2020-10-11 14:00] VITALS: BP 110/67
--- NOTE | 2020-10-11 14:33 | IPNPDOC ---
Date Seen The patient was seen on 10/11/20. Progress Note SUBJECTIVE: Patient is a history of atrial fibrillation on warfarin, COPD, CHF, C. difficile infection, BPH, and dysphagia, CAD status post CABG with stenting, status post aortic valve replacement, status post bilateral lower extremity stents and prostate cancer. Patient was initially transferred from [facility] subsequent to a fall in setting of diarrhea, infection, as well as hematuria. She was found to be have retention with acute renal failure, and subtherapeutic INR. Patient underwent CRRT in his kidney function has since recovered slightly. Initially, patient had developed dysphagia with possible aspiration pneumonia in addition to diarrhea which tested positive for C. difficile. Patient was transferred to [facility] inpatient and treated with by mouth vancomycin and IV Flagyl. Patient currently on pudding thick liquids and pured diet. Diarrhea has resolved and he continues to complete his course of by mouth vancomycin. Warfarin resumed at 1 mg qpm. Was seen and examined at bedside this morning. Doing well. No acute events overnight. States that he is thirsty. IV fluids. 5. Discharge from [facility] and his torsemide was resumed. I don't believe he is getting adequate hydration from pudding thickened liquids and therefore believe a gentle IV hydration may be appropriate. OBJECTIVE PHYSICAL EXAMINATION: VITAL SIGNS: please see below General: NAD, comfortable HEENT: PERRLA, EOMI, sclerae clear Neck: supple, normal ROM, no JVD Respiratory: lungs CTAB, no wheeze, no rales, no crackles CVS: RRR, normal S1, S2, no murmurs Abdo: soft, no masses, no hepatosplenomegaly, BS+, no rebound tenderness Extremities: no edema, pulses 2+ MSK: no joint deformities, normal ROM Neuro: no focal neuro deficits, moving all 4 extremities, CN2-12 intact. Strength 5/5 in all 4 extremities. No nystagmus. Psych: calm, cooperative, AAO x 3 LABORATORY DATA, IMAGING STUDIES, MICROBIOLOGY: Please see below. DVT prophylaxis ordered?: Y ASSESSMENT AND PLAN: PROBLEMS: 1. C. difficile diarrhea -IV metronidazole (5 days) and PO vancomycin (5 days) -stop IV metronidazole on DC to ARU. -Continue PO vancomycin until 10/15/2020 -Diarrhea controlled 2. Dysphagia Has had dysphagia before in the past In 2016, had respiratory failure with placement of a PEG tube and trach. There was subsequently removed -Per speech therapy on 10/09/20, now recommending pure diet with pudding thick liquids 3. Aspiration pneumonia versus pneumonitis No fever or leukocytosis. Patient breathing at room air. Last pro calcitonin was borderline low and now has down trended. Procalcitonin is low at 0.16. Cautious with antibiotics due to C. difficile diarrhea - stopped IV metronidazole Aspiration precautions, was seen by ST, recommending pure diet with pudding thick liquids 4. Atrial fibrillation Persistent On PO Lopressor Monitor INR as on warfarin. Currently supratherapeutic, 3.36 on 10/10/20 - resume warfarin once INR falls below 3 (goal 2-3) 5. GERD PO PPI 6. Acute kidney injury Cr improving hold torsemide, resume IVF NS at 80 cc/hr x 2 L - patient seems fluid depleted - would monitor fluid status, currently on pudding thick liquids, may require gently IVF in ARU. 7. Secondary hyperparathyroidism On calcitriol every other day 8. Debility and weakness -Patient reports 1 month of left arm weakness Unable to obtain MRI/MRA due to bilateral stents and legs for peripheral va scular disease Unable to do CT angiogram due to acute kidney injury - carotid US (bilat) shows no severe stenosis -ARU accepted 9. DVT prophylaxis On warfarin, currently supratherapeutic VS, I&O, 24H, [place] Vital Signs/I&O Vital Signs Date Time Temp Pulse Resp B/P (MAP) Pulse Ox O2 Delivery O2 Flow Rate FiO2 10/11/20 07:45 93 132/80 10/11/20 04:29 97.0 20 93 Room Air I&O- Last 24 Hours up to 6 AM 10/11/20 06:00 Intake Total 190 ml Output Total 275 ml Balance -85 ml Laboratory Data 24H LABS Laboratory Tests 2 10/11/20 04:56: Immature Granulocyte % (Auto) 0.7, Neutrophils (%) (Auto) 68.4H, Lymphocytes (%) (Auto) 18.1L, Monocytes (%) (Auto) 7.0, Eosinophils (%) (Auto) 5.4H, Basophils (%) (Auto) 0.4, Neutrophils # (Auto) 4.7, Lymphocytes # (Auto) 1.2L, Monocytes # (Auto) 0.5, Eosinophils # (Auto) 0.4, Basophils # (Auto) 0.0, Nucleated Red Blood Cells % (auto) 0.0, Anion Gap 5L, Glomerular Filtration Rate 44.4, Calcium Level 9.3, Total Bilirubin 0.4, Aspartate Amino Transf (AST/SGOT) 9, Alanine Aminotransferase (ALT/SGPT) 12, Alkaline Phosphatase 104, Total Protein 5.1L, Albumin 2.6L, Albumin/Globulin Ratio 1.0 10/11/20 12:42: Prothrombin Time 31.7H, Prothromb Time International Ratio 2.98 CBC/BMP Laboratory Tests 10/11/20 04:56 LINDA LONGORIA MD Oct 11, 2020 14:33
[2020-10-11] MEDS ORDERED: NS 1,000 ML IV SCH (14:35)
[2020-10-11] MEDS: IPRATROPIUM 0.5MG/ALBUTEROL 2.5MG INH SOL UD 3ML (DUONEB) NEB SCH ×2 (14:37→21:33)
[2020-10-11] MEDS: WARFARIN SOD 1MG TAB PO SCH (18:06)
[2020-10-11] MEDS: MAGIC MOUTHWASH SUSPENSION BTL SSP SCH (18:07)
--- NOTE | 2020-10-11 19:13 | REPVR ---
PROCEDURE INFORMATION: Exam: US Duplex Left Upper Extremity Veins, Limited Exam date and time: 10/11/2020 5:58 PM Age: 80 years old Clinical indication: Swelling (edema) of limb; Upper extremity, left TECHNIQUE: Imaging protocol: Real-time Duplex ultrasound of the Left Upper Extremity with 2-D collins scale, color Doppler flow and spectral waveform analysis with image documentation. Limited exam focused on the left upper extremity veins. COMPARISON: No relevant prior studies available. FINDINGS: Left deep veins: Unremarkable. Axillary and brachial veins are patent throughout without thrombus. Normal Doppler waveforms. Normal compressibility and/or augmentation response. Visualized internal jugular and subclavian veins are patent. Left superficial veins: Unremarkable. Visualized cephalic and basilic veins are patent without thrombus. Soft tissues: Soft tissue edema demonstrated at the level of the antecubital fossa. IMPRESSION: Soft tissue edema demonstrated at the level of the antecubital fossa. No DVT. Electronically signed by: Vamshi García On 10/11/2020 19:14:33 PM
[2020-10-11 20:00] VITALS: BP 152/76
[2020-10-11] MEDS: FINASTERIDE 5 MG TAB PO SCH (21:56)
[2020-10-12] MEDS: VANCOMYCIN ORAL SOL 250MG/5ML ORAL SYRINGE PO SCH ×4 (00:17→17:20)
[2020-10-12 05:19] VITALS: BP 143/84
[2020-10-12] MEDS: POLYTRIM OPTH DROPS 10ML OU SCH ×6 (05:39→20:58)
[2020-10-12] MEDS: REMEDY PHYTOPLEX Z-GUARD PASTE 113GM TUBE (FROM STOREROOM PRODUCT) TOP SCH ×4 (05:40→20:59)
[2020-10-12 06:25] LABS: INR 2.9
[2020-10-12 06:42] LABS: MAGNESIUM LEVEL 1.4 MG/DL (1.8-2.4); PHOSPHORUS LEVEL 2.5 MG/DL (2.5-4.9)
[2020-10-12] MEDS: IPRATROPIUM 0.5MG/ALBUTEROL 2.5MG INH SOL UD 3ML (DUONEB) NEB SCH ×3 (07:02→20:00)
[2020-10-12 08:16] VITALS: BP 128/86
[2020-10-12] MEDS: TAMSULOSIN 0.4 MG CAP PO SCH (08:18)
[2020-10-12] MEDS: METOPROLOL TART 12.5 MG PER 1/2 TAB PO SCH ×2 (08:18→21:00)
[2020-10-12] MEDS: PANTOPRAZOLE 40MG TAB (PROTONIX) PO SCH (08:18)
[2020-10-12] MEDS: LACTOBACILLUS ACIDOPHILUS CAP (BACID) PO SCH ×4 (08:18→20:59)
[2020-10-12] MEDS: ASPIRIN 81 MG CHEW TABLET PO SCH (08:18)
[2020-10-12] MEDS: ACETAMINOPHEN TAB 650MG DOSE (2X325MG) PO PRN ×2 (08:20→20:59)
[2020-10-12] MEDS: NYSTATIN 100,000 UNITS/GM TOPICAL PWD 15 GM TOP SCH ×2 (08:22→20:58)
[2020-10-12 08:55] LABS: CALCIUM LEVEL 8.7 MG/DL (8.8-10.2); CREATININE FOR GFR 1.68 MG/DL (0.70-1.30); POTASSIUM SERUM 4.2 MEQ/L (3.5-5.1)
--- NOTE | 2020-10-12 09:24 | CR ---
CONSULTATION DATE: 10/11/2020 REQUESTING PHYSICIAN: Dr. Phillips REASON FOR CONSULTATION: Management of CKD Stage IIIB in this patient with recent acute kidney injury requiring temporary dialysis and underlying diastolic congestive heart failure. HISTORY OF PRESENT ILLNESS: Mr. Manzano is an 80-year-old male with a past medical history of atrial fibrillation, COPD, diastolic congestive heart failure, BPH, CAD status post CABG status post aortic valve replacement, history of prostate cancer and other comorbid conditions mentioned below. The patient was originally admitted on September 06, 2020 with hypovolemic shock and required CRRT for his acute renal failure. He subsequently had recovery of renal function and ultimately came off of hemodialysis and was transitioned to acute inpatient rehabilitation unit. He was then transferred back to inpatient hospitalization due to aspiration pneumonia and C. difficile diarrhea. His chronic diuretics were held during his decompensation with the diarrhea. The patient was treated with IV Flagyl and oral Vancomycin and he symptomatically improved. He is transferred back to the rehabilitation unit and Nephrology evaluation is requested to help in the management of his chronic renal failure (recovered to CKD Stage IIIB) and diuretic management. The patient is seen and examined in the rehabilitation unit this morning and he offers no complaints and denies any shortness of breath. PAST MEDICAL HISTORY: Atrial fibrillation on coumadin, COPD, diastolic congestive heart failure, recent C. Difficile infection, dysphagia, BPH, CAD status post CABG with stenting, status post aortic valve replacement, status post bilateral lower extremity stents, history of prostate cancer, history of anemia of chronic disease, history of acute renal failure requiring temporary hemodialysis, CKD Stage IIIB. PAST SURGICAL HISTORY: Temporary hemodialysis catheter placement status post CABG status post coronary artery stents, status post bovine aortic valve replacement, status post lower extremity stents. ALLERGIES: No known drug allergies. HOME MEDICATIONS: Reviewed. SOCIAL HISTORY: No alcohol, drugs or smoking. FAMILY HISTORY: Significant for cardiac disease. REVIEW OF SYSTEMS: Constitutional: He reports no fever and no chills. He reports generalized debility and weakness. Eyes: Denies any recent vision changes or tearing. ENT: Reports dysphagia and pureed diet. Cardiac: Denies chest pain or palpitations. Has a history of CABG and peripheral vascular disease. Pulmonary: Denies shortness of breath or cough. Gastrointestinal: Denies constipation or diarrhea. Genitourinary: Reports BPH and Naidu catheter. Musculoskeletal: Reports generalized weakness. Denies leg swelling. Neurologic: Denies tremor. Reports paresthesias. Hematologic: Reports a history of anemia and chronic anticoagulant use. Skin: Denies any new rashes or ulcers. Psychiatric: Denies anxiety or depression. The remainder of review of systems is negative or as per HPI. PHYSICAL EXAMINATION: VITAL SIGNS: Temperature 96.9, pulse 96, respiratory rate 19, blood pressure 152/76, saturating 96% on room air. Weight on the bed scale today 79.9 kg. GENERAL: Patient is seen in the rehabilitation unit awake, alert and sitting in a wheelchair in no distress. HEENT: Extraocular muscles are intact. Tongue is moist. NECK: Supple. He is seen on room air. The jugular veins are not elevated. HEART: Heart sounds are regular S1 and S2. There is only trace leg edema. LUNGS: Clear to auscultation bilaterally. No crackle or rale. ABDOMEN: Soft and nontender. There are bowel sounds. GENITOURINARY: Indwelling Naidu catheter. NEUROLOGIC: He is awake, alert and oriented x3 at baseline mentation. LABORATORY DATA: Today's labs shows an INR of 2.9, sodium of 146, potassium of 4.2, chloride 118, BUN 14, creatinine 1.6. Hemoglobin 10.9, platelets 163,000. Vascular ultrasound done today of his left arm is negative for DVT. INPATIENT MEDICATIONS: Normal 80 ml/hr, Tylenol p.r.n., DuoNeb t.i.d., aspirin 81 mg p.o. daily, Calcitriol 0.25 mcg every other day, finasteride 5 mg p.o. q.h.s., Magic Mouthwash, metoprolol 12.5 mg p.o. b.i.d., Protonix 40 mg p.o. daily, Flomax 0.4 mg p.o. daily, torsemide 20 mg p.o. daily, Vancomycin 125 mg p.o. q. hourly, coumadin. PROBLEMS: 1. CKD Stage IIIB. Patient had an episode of severe acute kidney injury when he was first admitted to the hospital on September 06, 2020 and he required CRRT and then transitioned to temporary hemodialysis and ultimately had recovery of renal function. I reviewed the trend of creatinine over the past five weeks and the patient now appears to have recovered renal function to Stage IIIB chronic kidney disease. He is mildly hypernatremic (sodium 146) and is on a thickened liquid pureed diet. He certainly does not look wet on exam. He is presently receiving both torsemide and IV fluids at the same time. I am going to go ahead and stop both of them for now. As the patient works with swallow therapy and as his diet and intake advances, we will keep a close and resume diuretic when indicated. 2. Status post C. Difficile diarrhea. The patient has received Flagyl and Vancomycin and denies any recurrent diarrhea. He is mildly hypernatremic. Torsemide is being stopped. 3. Urinary retention. Patient continues with a Naidu catheter and is on Flomax and finasteride. As he progresses through his rehabilitation, another voiding trial can be given. He did require recurrent intermittent straight catheterizations the last time he was in the rehabilitation unit. 4. Hypernatremia, it is mild, it is due to the patient being on a thickened liquid/pureed diet without any "water intake." He is receiving isotonic normal saline, he is also on torsemide. I am stopping both of those at present. 5. Nephrology will follow intermittently with Mr. Manzano.
[2020-10-12 11:19] LABS: PTH INTACT 151.4 PG/ML (18.5-88.0)
[2020-10-12] MEDS: MAGNESIUM OXIDE 400MG TAB (MAG-OX) PO SCH (11:37)
[2020-10-12] MEDS: D5W 1,000 ML IV SCH ×2 (11:38→23:40)
[2020-10-12] MEDS: MAGIC MOUTHWASH SUSPENSION BTL SSP SCH (11:39)
[2020-10-12 14:00] VITALS: BP 128/76
--- NOTE | 2020-10-12 14:45 | IPNPDOC ---
PM&R Progress Note DATE OF SERVICE: Oct 12, 2020 Medical Lab Director Progress Note Subjective: Patient reporting he is pleased his diet is going to be upgraded, he denies any worsening cough, and that his diarrhea has subsided. He is wishing to go home soon to see his . REVIEW OF SYSTEMS: The following is a completed review of systems and has been reviewed. Review of systems otherwise unremarkable. PAIN: Patient self reports no pain EYES: No recent vision changes EARS, NOSE, & THROAT: +dysphagia CARDIOVASCULAR: Denies chest pain or palpitations PULMONARY: Denies shortness of breath GASTROINTESTINAL: Denies constipation/diarrhea GENITOURINARY: +macedo MUSCULOSKELETAL: generalized weakness NEUROLOGICAL:denies tremor, +bilat LE and UE paresthesias HEMATOLOGICAL: denies easy bruising SKIN: left groin catheter PSYCHIATRIC: Unremarkable All other review of systems found to be negative. PHYSICAL EXAMINATION: VITAL SIGNS: Please see below. GENERAL: Pleasant and cooperative. No acute distress. HEENT: PERRL. Extraocular movements intact. mild left facial droop CARDIOVASCULAR: Regular rate and rhythm. No murmurs, rubs, or gallops LUNGS: Clear to auscultation bilaterally. No wheezes. No rhonchi ABDOMEN: Soft, nontender, nondistended. Positive bowel sounds. Normal active bowel sounds NEUROLOGICAL: Alert and oriented times three. Cranial nerves II through XII grossly intact. Sensation grossly diminished to light touch in stocking/glove pattern) EXTREMITIES: RUE eblow flexion/extension 5/5, wrist extension 5/5, usability specialist 4/5 (finger deformity from old injury), RLE 5/5, Left elbow flexion/extension wrist extension, usability specialist 3+/5, left hip flexors >3/5 (limited due to groin pain) knee extension 4/5, ankle DF 3+/5 (+) bilat LE edema, LUE edema (improving) with ecchymosis ASSESSMENT:80-year-old M with past medical history of COPD, CHF who presents status post oliguric renal failure PLAN: 1. Rehab- PT/OT advance mobility and ADLs, strengthen/stretch/maintain ROM all 4limbs -DR[employer]IL[employer] LOADER dysphagia etiology unknown, upgraded today to level 2, c/u pudding thickened liquids 2. Neuro- patient with left sided weakness and facial droop not acute, CT's done inhouse to r/o infarct which was negative, however unable to get MRi to due LE stenting -peripheral polyneuropathy possibly due to PVD and/or spinal stenosis 3. Cardiac- hx of Afib and aortic valve replacement (bovine) on Warfarin (held at this time due to supratherapeutic INR) and metoprolol, monitor daily INRs, hx CAD s/p CABG c/u ASA -probable diastolic CHF- daily weights, fluid restrict, renal following closely for fluid management- diuretics per their recs -HLD- c/u statin 4. Resp- hx of COPD s/p tx for aspiration PNA, c/u supplemental oxygen prn , c/u duonebs, monitor for infection 5. renal- CKD and anemia renal following closely 6. - hx of BPH, c/u finasteride and flomax, c/u macedo for retention 7. GI ppx- hx of C diff infection, currently on oral vanco for recurrence 8. DVT ppx- on warfarin -LUE Doppler negative for DVT 9. Pain- tylnenol prn 10. Dispo- TBD Allergies Coded Allergies: No Known Allergies (Unverified , 01/28/19) Vital Signs Vital Signs Date Time Temp Pulse Resp B/P (MAP) Pulse Ox O2 Delivery O2 Flow Rate FiO2 10/12/20 14:00 97.6 100 18 128/76 (93) 94 Room Air Laboratory Data CBC/BMP Laboratory Tests 10/12/20 05:53 Labs 24H Laboratory Tests 2 10/12/20 05:53: Prothrombin Time 31.0H, Prothromb Time International Ratio 2.90, Anion Gap 7L, Glomerular Filtration Rate 42.0, Calcium Level 8.7L, Phosphorus Level 2.5, Magnesium Level 1.4L, Parathyroid Hormone (Intact) 151.4H Current Medications Current Medications Current Medications Medications (Trade) Dose Ordered Sig/Anju Route PRN Reason Start Time Stop Time Status Last Admin Dose Admin Acetaminophen (Tylenol Tab) 650 mg Q4HP PRN PO fever/MILD PAIN (PS 1-4) 10/10/20 16:00 10/12/20 08:20 Albuterol/ Ipratropium (Duoneb (Ipr 0.5mg/Alb 2.5mg)) 3 ml RTID NEB 10/11/20 14:00 10/12/20 07:02 Aspirin (Aspirin Chewable) 81 mg DAILY PO 10/11/20 09:00 10/12/20 08:18 Calcitriol (Rocaltrol) 0.25 mcg Q2D PO 10/11/20 09:00 10/11/20 07:44 Dextrose/Water 1,000 ml @ 80 mls/hr [id number] IV 10/12/20 10:05 10/13/20 11:04 10/12/20 11:38 Finasteride (Proscar) 5 mg QHS PO 10/10/20 21:00 10/11/20 21:56 Lactobacillus Acidophilus (Bacid) 1 ea WMHS PO 10/10/20 18:00 10/12/20 11:35 Lidocaine/ Diphenhydr/Alum/ Mg/Simeth (Magic Mouthwash) 5ML- please do prior... ASDIRECTED SSP 10/11/20 15:00 10/12/20 11:39 Magnesium Oxide (Mag-Ox) 400 mg DAILY PO 10/12/20 09:00 10/12/20 11:37 Metoprolol Tartrate (Lopressor) 12.5 mg BID PO 10/10/20 21:00 10/12/20 08:18 Nystatin (Mycostatin Powder, Nystop) groin BID TOP 10/10/20 21:00 10/12/20 08:22 Pantoprazole Sodium (Protonix) 40 mg DAILY PO 10/11/20 09:00 10/12/20 08:18 Polymyxin/ Trimethoprim Sulfate (Polytrim Ophth Drops) 1 drop 6XD OU 10/10/20 18:00 10/12/20 11:38 Sodium Chloride 1,000 ml @ 80 mls/hr [id number] IV 10/11/20 14:35 10/11/20 23:19 DC 10/11/20 15:03 Tamsulosin HCl (Flomax) 0.4 mg DAILY PO 10/11/20 09:00 10/12/20 08:18 Torsemide (Demadex) 20 mg DAILY PO 10/11/20 09:00 10/11/20 23:19 DC 10/11/20 07:44 Vancomycin HCl (First-Vancomycin 50(Firvanq)- 250mg/5ml) 125 mg Q6H PO 10/10/20 18:00 10/12/20 11:38 Warfarin Sodium (Coumadin) 1 mg DAILY@17 PO 10/11/20 17:00 10/11/20 18:06 WONG SIMMONS MD Oct 12, 2020 14:45
[2020-10-12] MEDS: WARFARIN SOD 1MG TAB PO SCH (17:19)
[2020-10-12 20:00] VITALS: BP 129/68
--- NOTE | 2020-10-12 20:47 | IPN ---
NEPHROLOGY PROGRESS NOTE DATE: 10/12/2020 SUBJECTIVE: The patient is seen and examined this morning in the Rehabilitation Unit. He reports no complaints except that he is frustrated by his diet but it is being advanced today. Laboratory studies showed worsening hypernatremia and the patient is placed on d5w. OBJECTIVE: PHYSICAL EXAMINATION: VITAL SIGNS: Temperature 97.6, pulse 100, respiratory rate 18, blood pressure 128/76, saturating 94-96% on room air. Weight in the bed scale today is 79.3 kg. GENERAL APPEARANCE: The patient is seen sitting out of bed to the chair, elderly, male, awake, alert and oriented, in no apparent distress, somewhat hard of hearing. The extraocular muscles are intact. HEENT: Tongue is moist. NECK: Supple. Jugular veins are not elevated. HEART: Regular S1, S2. There is trace leg edema. LUNGS: Clear to auscultation bilaterally. No crackles or rales. He is comfortable on room air. ABDOMEN: Soft and nontender. There are bowel sounds. EXTREMITIES: Left arm is swollen and bruising is noted. GENITOURINARY: Indwelling Naidu catheter. NEUROLOGICAL: Awake, alert, oriented x3 and at baseline mentation. LABORATORY STUDIES: Today's laboratory studies show sodium 148, potassium 4.2, chloride 120, carbon dioxide 21, BUN 15, creatinine 1.6, PTH 150. INPATIENT MEDICATIONS: The patient is written for d5w at 80 mL an hour x2 liters. His Torsemide was discontinued. He was started on magnesium oxide 400 mg p.o. daily. His remainder of medications are unchanged as compared to yesterday. PROBLEMS: 1. Chronic kidney disease stage 3B - The patient had an episode of severe acute renal failure when he was first admitted to the hospital on 09/06/20, and he required CRRT and then transitioned to temporary hemodialysis and ultimately has had recovery of renal function and creatinine has now plateaued around 1.6. He is mildly hypernatremic secondary to his dietary restrictions ( thickened liquids), and he is ordered for d5w at 80 mL an hour for 2 liters. Hold Torsemide diuretic. As patient works with Swallow Therapy and as his intake and diet advance, we will resume diuretic when indicated. 2. C-difficile diarrhea he is symptomatically improved. He denies any recurrent diarrhea. His diuretics were held while he was on the medical side of the hospital. He is written for gentle hypotonic fluids and for his recent C-difficile infection, he continues on oral Vancomycin. 3. Hypomagnesemia oral magnesium supplementation is ordered. 4. Secondary hyperparathyroidism of renal origin PTH, calcium and phosphorous are all acceptable. Continue with Calcitriol. There is no need for any phosphorous binder at present. 5. Urinary retention he continues with Naidu catheter and is on Flomax and Finasteride. MTDD
[2020-10-12] MEDS: FINASTERIDE 5 MG TAB PO SCH (20:59)
[2020-10-13] MEDS: VANCOMYCIN ORAL SOL 250MG/5ML ORAL SYRINGE PO SCH ×4 (00:33→16:57)
[2020-10-13 05:19] LABS: BASO % 0.3 % (0.0-1.0); EOS # 0.4 10^3/uL (0.0-0.5); EOS % 7.2 % (0.0-3.0); HEMATOCRIT 34.8 % (42.0-52.0); HEMOGLOBIN 10.6 g/dl (13.5-17.5); LYMPH # 1.1 10^3/uL (1.5-5.0); LYMPH % 19.1 % (24.0-44.0); MEAN CORPUSCULAR HEMOGLOBIN 30.5 pg (27.0-33.0); MEAN CORPUSCULAR HGB CONC 30.5 g/dl (32.0-36.5); MONO # 0.4 10^3/uL (0.0-0.8); MONO % 6.6 % (2.0-8.0); NEUTROPHILS # 3.8 10^3/uL (1.5-8.5); NEUTROPHILS % 66.3 % (36.0-66.0); PLATELET COUNT, AUTOMATED 149 10^3/uL (150-450); RED BLOOD COUNT 3.48 10^6/uL (4.30-6.10); WHITE BLOOD COUNT 5.8 10^3/uL (4.0-10.0)
[2020-10-13] MEDS: REMEDY PHYTOPLEX Z-GUARD PASTE 113GM TUBE (FROM STOREROOM PRODUCT) TOP SCH ×3 (05:24→16:58)
[2020-10-13] MEDS: POLYTRIM OPTH DROPS 10ML OU SCH ×6 (05:24→21:47)
[2020-10-13 05:25] VITALS: BP 143/82
[2020-10-13 05:27] LABS: INR 2.35; PROTHROMBIN TIME 26.3 SECONDS (12.5-14.3)
[2020-10-13 05:39] LABS: CALCIUM LEVEL 8.4 MG/DL (8.8-10.2); CREATININE FOR GFR 1.55 MG/DL (0.70-1.30)
[2020-10-13] MEDS: METOPROLOL TART 12.5 MG PER 1/2 TAB PO SCH ×2 (07:20→21:46)
[2020-10-13] MEDS: LACTOBACILLUS ACIDOPHILUS CAP (BACID) PO SCH ×4 (07:20→21:46)
[2020-10-13] MEDS: ASPIRIN 81 MG CHEW TABLET PO SCH (07:20)
[2020-10-13] MEDS: MAGNESIUM OXIDE 400MG TAB (MAG-OX) PO SCH (07:21)
[2020-10-13] MEDS: NYSTATIN 100,000 UNITS/GM TOPICAL PWD 15 GM TOP SCH ×2 (07:21→21:47)
[2020-10-13] MEDS: TAMSULOSIN 0.4 MG CAP PO SCH (07:21)
[2020-10-13] MEDS: CALCITRIOL 0.25 MCG CAP (S0169) PO SCH (07:21)
[2020-10-13] MEDS: PANTOPRAZOLE 40MG TAB (PROTONIX) PO SCH (07:21)
[2020-10-13] MEDS: ACETAMINOPHEN TAB 650MG DOSE (2X325MG) PO PRN (07:21)
[2020-10-13] MEDS: IPRATROPIUM 0.5MG/ALBUTEROL 2.5MG INH SOL UD 3ML (DUONEB) NEB SCH ×3 (07:26→19:26)
[2020-10-13] MEDS: MAGIC MOUTHWASH SUSPENSION BTL SSP SCH (11:41)
[2020-10-13 14:00] VITALS: BP 168/81
--- NOTE | 2020-10-13 15:32 | IPNPDOC ---
Date Seen The patient was seen on 10/13/20. Progress Note SUBJECTIVE: Patient is a history of atrial fibrillation on warfarin, COPD, CHF, C. difficile infection, BPH, and dysphagia, CAD status post CABG with stenting, status post aortic valve replacement, status post bilateral lower extremity stents and prostate cancer. Patient was initially transferred from [facility] subsequent to a fall in setting of diarrhea, infection, as well as hematuria. She was found to be have retention with acute renal failure, and subtherapeutic INR. Patient underwent CRRT in his kidney function has since recovered slightly. Initially, patient had developed dysphagia with possible aspiration pneumonia in addition to diarrhea which tested positive for C. difficile. Patient was transferred to [facility] inpatient and treated with by mouth vancomycin and IV Flagyl. Patient currently on pudding thick liquids and pured diet. Diarrhea has resolved and he continues to complete his course of by mouth vancomycin. Warfarin resumed at 1 mg qpm. Was seen and examined at bedside this morning. Doing well. No acute events overnight. Diet advanced. Off IV fluids but continue to hold torsemide. Denies CP, SOB, n/v/d, fevers, chills. OBJECTIVE PHYSICAL EXAMINATION: VITAL SIGNS: please see below General: NAD, comfortable HEENT: PERRLA, EOMI, sclerae clear Neck: supple, normal ROM, no JVD Respiratory: lungs CTAB, no wheeze, no rales, no crackles CVS: RRR, normal S1, S2, no murmurs Abdo: soft, no masses, no hepatosplenomegaly, BS+, no rebound tenderness Extremities: no edema, pulses 2+ MSK: no joint deformities, normal ROM Neuro: no focal neuro deficits, moving all 4 extremities, CN2-12 intact. Strength 5/5 in all 4 extremities. No nystagmus. Psych: calm, cooperative, AAO x 3 LABORATORY DATA, IMAGING STUDIES, MICROBIOLOGY: Please see below. DVT prophylaxis ordered?: Y ASSESSMENT AND PLAN: PROBLEMS: 1. C. difficile diarrhea -IV metronidazole (5 days) and PO vancomycin (5 days) -stop IV metronidazole on DC to ARU. -Continue PO vancomycin until 10/15/2020 -Diarrhea controlled 2. Dysphagia Has had dysphagia before in the past In 2016, had respiratory failure with placement of a PEG tube and trach. There was subsequently removed -Per speech therapy on 10/09/20, now recommending level 2 with pudding thick liquids 3. Aspiration pneumonia versus pneumonitis No fever or leukocytosis. Patient breathing at room air. Last pro calcitonin was borderline low and now has down trended. 4. Atrial fibrillation Persistent On PO Lopressor Monitor INR as on warfarin, therapeutic 5. GERD PO PPI 6. Acute kidney injury Cr improving - received d51 hold torsemide, s/p IVF NS at 80 cc/hr x 2 L - diet has been advanced - nephrology is following will defer resuming torsemide 7. Secondary hyperparathyroidism On calcitriol every other day 8. Debility and weakness -Patient reports 1 month of left arm weakness Unable to obtain MRI/MRA due to bilateral stents and legs for peripheral vascular disease Unable to do CT angiogram due to acute kidney injury - carotid US (bilat) shows no severe stenosis -ARU accepted 9. DVT prophylaxis On warfarin, currently supratherapeutic VS, I&O, 24H, Fishbone Vital Signs/I&O Vital Signs Date Time Temp Pulse Resp B/P (MAP) Pulse Ox O2 Delivery O2 Flow Rate FiO2 10/13/20 14:00 97.8 87 18 168/81 (110) 94 Room Air I&O- Last 24 Hours up to 6 AM 10/13/20 06:00 Intake Total 210 ml Output Total 1025 ml Balance -815 ml Laboratory Data 24H LABS Laboratory Tests 2 10/13/20 05:00: Immature Granulocyte % (Auto) 0.5, Neutrophils (%) (Auto) 66.3H, Lymphocytes (%) (Auto) 19.1L, Monocytes (%) (Auto) 6.6, Eosinophils (%) (Auto) 7.2H, Basophils (%) (Auto) 0.3, Neutrophils # (Auto) 3.8, Lymphocytes # (Auto) 1.1L, Monocytes # (Auto) 0.4, Eosinophils # (Auto) 0.4, Basophils # (Auto) 0.0, Nucleated Red Blood Cells % (auto) 0.0, Prothrombin Time 26.3H, Prothromb Time International Ratio 2.35, Anion Gap 8, Glomerular Filtration Rate 46.0, Calcium Level 8.4L CBC/BMP Laboratory Tests 10/13/20 05:00 LINDA LONGORIA MD Oct 13, 2020 15:32
[2020-10-13] MEDS: WARFARIN SOD 1MG TAB PO SCH (16:55)
[2020-10-13 20:20] VITALS: BP 157/82
[2020-10-13] MEDS: FINASTERIDE 5 MG TAB PO SCH (21:46)
[2020-10-14] MEDS: VANCOMYCIN ORAL SOL 250MG/5ML ORAL SYRINGE PO SCH ×5 (00:27→23:56)
[2020-10-14] MEDS: REMEDY PHYTOPLEX Z-GUARD PASTE 113GM TUBE (FROM STOREROOM PRODUCT) TOP SCH ×5 (00:27→23:57)
[2020-10-14] MEDS: POLYTRIM OPTH DROPS 10ML OU SCH ×6 (05:40→20:52)
[2020-10-14 06:34] VITALS: BP 150/90
[2020-10-14] MEDS: IPRATROPIUM 0.5MG/ALBUTEROL 2.5MG INH SOL UD 3ML (DUONEB) NEB SCH ×3 (07:02→19:58)
[2020-10-14 07:19] LABS: INR 1.72; PROTHROMBIN TIME 20.5 SECONDS (12.5-14.3)
[2020-10-14] MEDS: LACTOBACILLUS ACIDOPHILUS CAP (BACID) PO SCH ×4 (09:15→20:51)
[2020-10-14] MEDS: TAMSULOSIN 0.4 MG CAP PO SCH (09:16)
[2020-10-14] MEDS: ASPIRIN 81 MG CHEW TABLET PO SCH (09:16)
[2020-10-14] MEDS: PANTOPRAZOLE 40MG TAB (PROTONIX) PO SCH (09:16)
[2020-10-14] MEDS: MAGNESIUM OXIDE 400MG TAB (MAG-OX) PO SCH (09:16)
[2020-10-14] MEDS: NYSTATIN 100,000 UNITS/GM TOPICAL PWD 15 GM TOP SCH ×2 (09:17→20:53)
[2020-10-14] MEDS: METOPROLOL TART 12.5 MG PER 1/2 TAB PO SCH ×2 (09:21→20:51)
--- NOTE | 2020-10-14 13:28 | IPN ---
PROGRESS NOTE DATE: 10/14/2020 SUBJECTIVE: Mr. Manzano is seen this morning on his bedside in acute rehab. He is sitting in the chair at the time of my visit. He reports feeling well, and denies any dyspnea, chest pain or leg edema. He does have a complaint of rash and itching on his left arm where he does have skin rash, which looks like eczema. Patient reports that he is making good progress with rehab. PHYSICAL EXAMINATION: GENERAL: He is awake and alert, without any acute distress. VITALS: Temperature 96.9 degrees Fahrenheit, heart rate 100 per minute, respiratory rate 18 per minute, blood pressure 129/77 mmHg, oxygen saturation 96% on room air. HEENT: Head is atraumatic. Neck is supple and without JVD or thyroid enlargement. HEART: Sounds are irregular in rhythm. LUNGS: Clear to auscultation. ABDOMEN: Soft and nontender. Bowel sounds are present. EXTREMITIES: Without any cyanosis or clubbing. His left arm is somewhat swollen and also has rash from just about the elbow all the way down to mid forearm area. This rash looks like eczema. NEUROLOGIC: He is awake, alert and at his baseline mentation. LABORATORY DATA: Patient did not have any new labs today. Yesterday, BUN 13 and creatinine 1.55. PROBLEMS: 1. Acute and chronic kidney disease: His kidney function seems to be leveled off. This is probably his baseline function and at this point we will continue to monitor closely. His diuretic is currently on hold. 2. Diarrhea: Patient reports that his diarrhea has improved. He remains on oral Vancomycin. He has been treated for C. diff colitis. 3. Secondary hyperparathyroidism related to chronic kidney disease: Yesterday his parathyroid level was 151.4. At this point, we will continue to monitor and continue with Calcitriol 0.25 mcg every two days. 4. Skin rash: Patient seems to have eczema on his left arm. I am going to order some Hydrocortisone ointment for topical use t.i.d. 5. Hypernatremia: His sodium level corrected to 143 yesterday and I.V. fluids have been now stopped. Patient is being encouraged to continue with liberal oral fluid intake.
[2020-10-14 14:00] VITALS: BP 138/67
[2020-10-14] MEDS: WARFARIN SOD 1MG TAB PO SCH (17:19)
[2020-10-14] MEDS: ANUSOL HC CREAM 30GM TOP SCH ×2 (17:22→20:53)
[2020-10-14 20:00] VITALS: BP 133/95
[2020-10-14] MEDS: FINASTERIDE 5 MG TAB PO SCH (20:52)
[2020-10-15 05:33] VITALS: BP 139/82
[2020-10-15] MEDS: VANCOMYCIN ORAL SOL 250MG/5ML ORAL SYRINGE PO SCH ×2 (05:54→12:18)
[2020-10-15] MEDS: REMEDY PHYTOPLEX Z-GUARD PASTE 113GM TUBE (FROM STOREROOM PRODUCT) TOP SCH ×4 (05:55→21:55)
[2020-10-15] MEDS: POLYTRIM OPTH DROPS 10ML OU SCH ×6 (05:55→21:54)
[2020-10-15] MEDS: IPRATROPIUM 0.5MG/ALBUTEROL 2.5MG INH SOL UD 3ML (DUONEB) NEB SCH ×3 (07:06→19:51)
[2020-10-15 07:07] LABS: INR 1.56
[2020-10-15] MEDS: LACTOBACILLUS ACIDOPHILUS CAP (BACID) PO SCH ×4 (08:00→21:51)
[2020-10-15] MEDS: NYSTATIN 100,000 UNITS/GM TOPICAL PWD 15 GM TOP SCH ×2 (09:37→21:54)
[2020-10-15] MEDS: ANUSOL HC CREAM 30GM TOP SCH ×3 (09:37→21:54)
[2020-10-15] MEDS: ONDANSETRON 4 MG ORAL DISINTEGRATING TAB PO PRN (09:42)
--- NOTE | 2020-10-15 10:37 | REP ---
INDICATION: vomiting COMPARISON: None. TECHNIQUE: Supine views of the abdomen and pelvis. FINDINGS: Bowel gas pattern is nonspecific and without obstruction or perforation although a mild enteritis cannot be excluded. No organomegaly. No abnormal calcifications. Surgical material overlies the pelvis and bilateral inguinal regions. Naidu catheter identified within the pelvis. Skeletal structures intact. IMPRESSION: Nonspecific bowel gas pattern. Cannot exclude a mild enteritis. <Electronically signed by Ko Ortiz > 10/15/20 [id number]
[2020-10-15] MEDS: METOPROLOL TART 12.5 MG PER 1/2 TAB PO SCH ×2 (12:17→21:52)
[2020-10-15] MEDS: CALCITRIOL 0.25 MCG CAP (S0169) PO SCH (12:18)
[2020-10-15] MEDS: ASPIRIN 81 MG CHEW TABLET PO SCH (12:18)
[2020-10-15] MEDS: MAGNESIUM OXIDE 400MG TAB (MAG-OX) PO SCH (12:18)
[2020-10-15] MEDS: PANTOPRAZOLE 40MG TAB (PROTONIX) PO SCH (12:18)
[2020-10-15] MEDS: TAMSULOSIN 0.4 MG CAP PO SCH (12:18)
--- NOTE | 2020-10-15 12:39 | IPN ---
NEPHROLOGY PROGRESS NOTE DATE: 10/15/2020 SUBJECTIVE: Mr. Manzano is seen this morning on his bedside. He reports that he became nauseated during physical therapy and has been just brought back to the room. He denies any dyspnea or chest pain. He has no fever or chills. PHYSICAL EXAMINATION: Temperature 98.6 degrees Fahrenheit, heart rate 96 per minute, respiratory rate 19 per minute, blood pressure 139/82 mmHg, oxygen saturation 96% on room air. HEAD: Atraumatic. NECK: Supple and without jugular venous distention (JVD) or thyroid enlargement. HEART SOUNDS: Irregular in rhythm. LUNGS: Clear to auscultation. ABDOMEN: Soft and nontender. Bowel sounds present. EXTREMITIES: Without any cyanosis or clubbing. Left arm rash is slightly improved since yesterday. LABORATORY STUDIES: Patient did not have any new labs done today. PROBLEMS: 1. Acute on chronic kidney disease. Kidney function has been stable now and his blood test on October 13, 2020 was appropriate with normal electrolytes. We will check his labs again tomorrow. 2. Clostridium (C) difficile colitis. He remains on oral vancomycin and his diarrhea has improved. 3. Urinary retention. Patient continues with Flomax and finasteride. 4. Secondary hyperparathyroidism. Patient is currently on calcitriol 0.25 mcg daily and we will recheck his intact PTH level in a couple of weeks. 5. Nausea and vomiting. This is a chronic issue and patient has been treated symptomatically with Zofran. He is on oral vancomycin already for Clostridium (C) difficile colitis. He is also on oral Protonix for gastric protection. 6. Atrial fibrillation. Patient remains on Coumadin and beta page. His heart rate is recently well-controlled. 7. Left arm rash. He has eczema on his left arm and hydrocortisone ointment is helping.
[2020-10-15 14:08] VITALS: BP 149/84
[2020-10-15] MEDS: WARFARIN SOD 1MG TAB PO SCH (17:25)
[2020-10-15 20:00] VITALS: BP 133/74
--- NOTE | 2020-10-15 20:51 | IPNPDOC ---
PM&R Progress Note DATE OF SERVICE: Oct 13, 2020 Junior Systems Analyst Progress Note Subjective: Patient reporting he states his hands feel a little more numb, nut not any weaker and this happens from time to time. REVIEW OF SYSTEMS: The following is a completed review of systems and has been reviewed. Review of systems otherwise unremarkable. PAIN: Patient self reports no pain EYES: No recent vision changes EARS, NOSE, & THROAT: +dysphagia CARDIOVASCULAR: Denies chest pain or palpitations PULMONARY: Denies shortness of breath GASTROINTESTINAL: Denies constipation/diarrhea GENITOURINARY: +macedo MUSCULOSKELETAL: generalized weakness NEUROLOGICAL:denies tremor, +bilat LE and UE paresthesias HEMATOLOGICAL: denies easy bruising SKIN: left groin catheter PSYCHIATRIC: Unremarkable All other review of systems found to be negative. PHYSICAL EXAMINATION: VITAL SIGNS: Please see below. GENERAL: Pleasant and cooperative. No acute distress. HEENT: PERRL. Extraocular movements intact. mild left facial droop CARDIOVASCULAR: Regular rate and rhythm. No murmurs, rubs, or gallops LUNGS: Clear to auscultation bilaterally. No wheezes. No rhonchi ABDOMEN: Soft, nontender, nondistended. Positive bowel sounds. Normal active bowel sounds NEUROLOGICAL: Alert and oriented times three. Cranial nerves II through XII grossly intact. Sensation grossly diminished to light touch in stocking/glove pattern) EXTREMITIES: RUE eblow flexion/extension 5/5, wrist extension 5/5, cloud developer 4/5 (finger deformity from old injury), RLE 5/5, Left elbow flexion/extension wrist extension, cloud developer 3+/5, left hip flexors >3/5 (limited due to groin pain) knee extension 4/5, ankle DF 3+/5 (+) bilat LE edema, LUE edema (improving) with ecchymosis ASSESSMENT:80-year-old M with past medical history of COPD, CHF who presents status post oliguric renal failure PLAN: 1. Rehab- PT/OT advance mobility and ADLs, strengthen/stretch/maintain ROM all 4limbs -TAPPER BALANCE WHEEL SCREW HOLE dysphagia etiology unknown, upgraded today to level 2, c/u pudding thickened liquids 2. Neuro- patient with left sided weakness and facial droop not acute, CT's done inhouse to r/o infarct which was negative, however unable to get MRi to due LE stenting- symptoms have not worsened during aru stay -peripheral polyneuropathy possibly due to PVD and/or spinal stenosis 3. Cardiac- hx of Afib and aortic valve replacement (bovine) on Warfarin and metoprolol, monitor daily INRs, hx CAD s/p CABG c/u ASA -probable diastolic CHF- daily weights, fluid restrict, renal following closely for fluid management- diuretics per their recs -HLD- c/u statin 4. Resp- hx of COPD s/p tx for aspiration PNA, c/u supplemental oxygen prn , c/u duonebs, monitor for infection 5. renal- CKD and anemia renal following closely 6. - hx of BPH, c/u finasteride and flomax, c/u macedo for retention 7. GI ppx- hx of C diff infection, currently on oral vanco for recurrence 8. DVT ppx- on warfarin -LUE Doppler negative for DVT 9. Pain- tylnenol prn 10. Dispo- TBD Allergies Coded Allergies: No Known Allergies (Unverified , 01/28/19) Vital Signs Vital Signs Date Time Temp Pulse Resp B/P (MAP) Pulse Ox O2 Delivery O2 Flow Rate FiO2 10/15/20 19:52 18 10/15/20 14:08 97.5 99 149/84 (105) 95 Room Air Laboratory Data Labs 24H Laboratory Tests 2 10/15/20 06:40: Prothrombin Time 19.0H, Prothromb Time International Ratio 1.56 Current Medications Current Medications Current Medications Medications (Trade) Dose Ordered Sig/Anju Route PRN Reason Start Time Stop Time Status Last Admin Dose Admin Acetaminophen (Tylenol Tab) 650 mg Q4HP PRN PO fever/MILD PAIN (PS 1-4) 10/10/20 16:00 10/13/20 07:21 Albuterol/ Ipratropium (Duoneb (Ipr 0.5mg/Alb 2.5mg)) 3 ml RTID NEB 10/11/20 14:00 10/15/20 13:00 Aspirin (Aspirin Chewable) 81 mg DAILY PO 10/11/20 09:00 10/15/20 12:18 Calcitriol (Rocaltrol) 0.25 mcg Q2D PO 10/11/20 09:00 10/15/20 12:18 Dextrose/Water 1,000 ml @ 80 mls/hr [id number] IV 10/12/20 10:05 10/13/20 10:24 DC 10/12/20 23:40 Finasteride (Proscar) 5 mg QHS PO 10/10/20 21:00 10/14/20 20:52 Hydrocortisone (Proctosol Hc) apply to left arm TID TOP 10/14/20 16:00 10/15/20 17:25 Lactobacillus Acidophilus (Bacid) 1 ea WMHS PO 10/10/20 18:00 10/15/20 17:25 Lidocaine/ Diphenhydr/Alum/ Mg/Simeth (Magic Mouthwash) 5ML- please do prior... ASDIRECTED SSP 10/11/20 15:00 10/13/20 11:41 Magnesium Oxide (Mag-Ox) 400 mg DAILY PO 10/12/20 09:00 10/15/20 12:18 Metoprolol Tartrate (Lopressor) 12.5 mg BID PO 10/10/20 21:00 10/15/20 12:17 Nystatin (Mycostatin Powder, Nystop) groin BID TOP 10/10/20 21:00 10/15/20 09:37 Ondansetron HCl (Zofran Odt) 4 mg Q6HP PRN PO NAUSEA OR VOMITING 10/15/20 09:40 10/15/20 09:42 Pantoprazole Sodium (Protonix) 40 mg DAILY PO 10/11/20 09:00 10/15/20 12:18 Polymyxin/ Trimethoprim Sulfate (Polytrim Ophth Drops) 1 drop 6XD OU 10/10/20 18:00 10/15/20 17:25 Sodium Chloride 1,000 ml @ 80 mls/hr [id number] IV 10/11/20 14:35 10/11/20 23:19 DC 10/11/20 15:03 Tamsulosin HCl (Flomax) 0.4 mg DAILY PO 10/11/20 09:00 10/15/20 12:18 Torsemide (Demadex) 20 mg DAILY PO 10/11/20 09:00 10/11/20 23:19 DC 10/11/20 07:44 Vancomycin HCl (First-Vancomycin 50(Firvanq)- 250mg/5ml) 125 mg Q6H PO 10/10/20 18:00 10/15/20 17:59 DC 10/15/20 12:18 Warfarin Sodium (Coumadin) 1 mg DAILY@17 PO 10/11/20 17:00 10/15/20 17:25 WONG SIMMONS MD Oct 15, 2020 20:51
[2020-10-15] MEDS: FINASTERIDE 5 MG TAB PO SCH (21:51)
[2020-10-15] MEDS: ACETAMINOPHEN TAB 650MG DOSE (2X325MG) PO PRN (21:52)
[2020-10-16 06:00] VITALS: BP 130/67
[2020-10-16] MEDS: POLYTRIM OPTH DROPS 10ML OU SCH ×5 (06:48→17:40)
[2020-10-16] MEDS: REMEDY PHYTOPLEX Z-GUARD PASTE 113GM TUBE (FROM STOREROOM PRODUCT) TOP SCH ×4 (06:48→20:36)
[2020-10-16] MEDS: IPRATROPIUM 0.5MG/ALBUTEROL 2.5MG INH SOL UD 3ML (DUONEB) NEB SCH ×3 (07:16→19:59)
[2020-10-16 07:32] LABS: BASO % 0.4 % (0.0-1.0); EOS # 0.4 10^3/uL (0.0-0.5); EOS % 8.3 % (0.0-3.0); HEMATOCRIT 32.9 % (42.0-52.0); HEMOGLOBIN 10.4 g/dl (13.5-17.5); LYMPH # 0.8 10^3/uL (1.5-5.0); LYMPH % 17.3 % (24.0-44.0); MEAN CORPUSCULAR HEMOGLOBIN 31.7 pg (27.0-33.0); MEAN CORPUSCULAR HGB CONC 31.6 g/dl (32.0-36.5); MEAN CORPUSCULAR VOLUME 100.3 fl (80.0-96.0); MONO # 0.4 10^3/uL (0.0-0.8); NEUTROPHILS # 3.1 10^3/uL (1.5-8.5); NEUTROPHILS % 64.8 % (36.0-66.0); PLATELET COUNT, AUTOMATED 158 10^3/uL (150-450); RED BLOOD COUNT 3.28 10^6/uL (4.30-6.10); WHITE BLOOD COUNT 4.8 10^3/uL (4.0-10.0)
[2020-10-16 07:42] LABS: INR 1.58; PROTHROMBIN TIME 19.2 SECONDS (12.5-14.3)
[2020-10-16 07:50] LABS: CREATININE FOR GFR 1.44 MG/DL (0.70-1.30); GLOMERULAR FILTRATION RATE 50.1 (>35); POTASSIUM SERUM 4.6 MEQ/L (3.5-5.1)
[2020-10-16] MEDS: MAGNESIUM OXIDE 400MG TAB (MAG-OX) PO SCH (09:17)
[2020-10-16] MEDS: TAMSULOSIN 0.4 MG CAP PO SCH (09:17)
[2020-10-16] MEDS: LACTOBACILLUS ACIDOPHILUS CAP (BACID) PO SCH ×4 (09:17→20:35)
[2020-10-16] MEDS: PANTOPRAZOLE 40MG TAB (PROTONIX) PO SCH (09:17)
[2020-10-16] MEDS: METOPROLOL TART 12.5 MG PER 1/2 TAB PO SCH ×2 (09:17→20:35)
[2020-10-16] MEDS: ASPIRIN 81 MG CHEW TABLET PO SCH (09:17)
[2020-10-16] MEDS: TORSEMIDE 10 MG TABLET PO SCH (09:18)
[2020-10-16] MEDS: NYSTATIN 100,000 UNITS/GM TOPICAL PWD 15 GM TOP SCH ×2 (09:19→20:36)
[2020-10-16] MEDS: ANUSOL HC CREAM 30GM TOP SCH ×3 (09:19→20:36)
[2020-10-16] MEDS: ACETAMINOPHEN TAB 650MG DOSE (2X325MG) PO PRN (12:24)
[2020-10-16 14:00] VITALS: BP 129/63
--- NOTE | 2020-10-16 14:01 | IPNPDOC ---
Text Note Date of Service The patient was seen on 10/16/20. NOTE Patient was seen and examined at bedside this morning. Doing well. No acute ev ents overnight. PHYSICAL EXAMINATION: General: NAD, comfortable HEENT: PERRLA, EOMI, sclerae clear Neck: supple, normal ROM, no JVD Respiratory: lungs CTAB, no wheeze, no rales, no crackles CVS: RRR, normal S1, S2, no murmurs Abdo: soft, no masses, no hepatosplenomegaly, BS+, no rebound tenderness Extremities: no edema, pulses 2+ MSK: no joint deformities, normal ROM Neuro: no focal neuro deficits, moving all 4 extremities, CN2-12 intact. Strength 5/5 in all 4 extremities. No nystagmus. Psych: calm, cooperative, AAO x 3 LABORATORY DATA, IMAGING STUDIES, MICROBIOLOGY: Please see below. ASSESSMENT AND PLAN: Patient is a history of atrial fibrillation on warfarin, COPD, CHF, C. difficile infection, BPH, and dysphagia, CAD status post CABG with stenting, status post aortic valve replacement, status post bilateral lower extremity stents and prostate cancer. Patient was initially transferred from [facility] subsequent to a fall in setting of diarrhea, infection, as well as hematuria. She was found to be have retention with acute renal failure, and subtherapeutic INR. Patient underwent CRRT in his kidney function has since recovered slightly. Initially, patient had developed dysphagia with possible aspiration pneumonia in addition to diarrhea which tested positive for C. difficile. Patient was transferred to [facility] inpatient and treated with by mouth vancomycin and IV Flagyl. Patient currently on pudding thick liquids and pured diet. Diarrhea has resolved and he continues to complete his course of by mouth vancomycin. Warfarin resumed at 1 mg qpm. 1. C. difficile diarrhea -PO vancomycin (5 days) -Continue PO vancomycin until 10/16/2020 -Diarrhea controlled 2. Dysphagia Has had dysphagia before in the past In 2016, had respiratory failure with placement of a PEG tube and trach. There was subsequently removed -Per speech therapy on 10/09/20, now recommending level 2 with pudding thick liquids 3. Aspiration pneumonia versus pneumonitis No fever or leukocytosis. Patient breathing at room air. Last pro calcitonin was borderline low and now has down trended. 4. Atrial fibrillation Persistent/ Rate controlled. On PO Lopressor Monitor INR as on warfarin, therapeutic 5. GERD PO PPI 6. Acute kidney injury Cr improving and stable - nephrology is following will defer resuming torsemide 7. Secondary hyperparathyroidism On calcitriol every other day 8. Debility and weakness -Patient reports 1 month of left arm weakness Unable to obtain MRI/MRA due to bilateral stents and legs for peripheral vascular disease Unable to do CT angiogram due to acute kidney injury - carotid US (bilat) shows no severe stenosis 9. DVT prophylaxis On warfarin, currently supratherapeutic Disposition: As per ARU VS,Dahlia, I+O VS, Dahlia, I+O Laboratory Tests 10/16/20 06:14 Vital Signs Date Time Temp Pulse Resp B/P (MAP) Pulse Ox O2 Delivery O2 Flow Rate FiO2 10/16/20 09:17 92 119/69 10/16/20 06:00 98.0 18 96 Room Air I&O- Last 24 Hours up to 6 AM 10/16/20 06:00 Intake Total 120 ml Output Total 760 ml Balance -640 ml HUMBERTO RODRIGES MD Oct 16, 2020 14:01
--- NOTE | 2020-10-16 14:10 | IPN ---
PROGRESS NOTE DATE: 10/16/2020 SUBJECTIVE: Mr. Manzano is seen this morning on his bedside. He is sitting in the chair at present working with the physical therapist. 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 He has a Naidu catheter due to recurrent urinary retention. Patient was quite nauseated yesterday, however today he reports feeling well and there is no vomiting or diarrhea. He has been treated for C. Diff colitis recently. OBJECTIVE: VITAL SIGNS: Temperature is 98 degrees Fahrenheit, heart rate is 92 per minute, and respiratory rate is 18 per minute. Blood pressure 119/69 mmHg and oxygen saturation 96% on room air. HEENT: Head is atraumatic. NECK: Supple. JVD difficult to be assessed while sitting upright. LUNGS: Chronic basilar crepitations. HEART: Heart sounds are irregular in rhythm. ABDOMEN: Soft, bowel sounds are normal. EXTREMITIES: Without any cyanosis or clubbing. He has deformities of both hands/fingers with some swelling. He also has lower extremity edema which is 1+ bilaterally. NEUROLOGIC: He is awake, alert and at his baseline mentation. LABORATORY DATA: Today's labs shows a WBC of 4.8, hemoglobin 10.4 and hematocrit 32.9, platelets are 158,000. Sodium is 143, potassium is 4.6, CO2 26, BUN 14 and creatinine 1.44. PROBLEMS: 1. Congestive heart failure. His volume status has decompensated once again. He was on diuretic previously which was stopped due to diarrhea and now his diuretic will need to be resumed. I have seen that he has already been started on furosemide 10 mg daily. We will monitor and adjust the dose if needed. 2. Acute kidney injury superimposed on chronic kidney disease. Kidney function has been stable and gradually improving. No intervention is needed. 3. Anemia, at present his anemia is stable and does not need any intervention. 4. Urinary retention. Patient has a Naidu catheter in place and he continues with Tamsulosin and finasteride. 5. Skin rash, left arm skin rash is improving with hydrocortisone cream which will be continued. 6. Deconditioning and weakness. Patient continues with rehab and gradually making some improvement.
[2020-10-16] MEDS ORDERED: WARFARIN SOD 3MG TAB PO SCH (17:00)
[2020-10-16 20:00] VITALS: BP 155/88
[2020-10-16] MEDS: FINASTERIDE 5 MG TAB PO SCH (20:35)
[2020-10-17 05:25] VITALS: BP 158/90
[2020-10-17] MEDS: REMEDY PHYTOPLEX Z-GUARD PASTE 113GM TUBE (FROM STOREROOM PRODUCT) TOP SCH ×4 (06:06→23:55)
[2020-10-17 06:20] LABS: INR 1.51; PROTHROMBIN TIME 18.5 SECONDS (12.5-14.3)
[2020-10-17] MEDS: IPRATROPIUM 0.5MG/ALBUTEROL 2.5MG INH SOL UD 3ML (DUONEB) NEB SCH ×3 (07:30→20:00)
[2020-10-17] MEDS: TAMSULOSIN 0.4 MG CAP PO SCH (08:48)
[2020-10-17] MEDS: CALCITRIOL 0.25 MCG CAP (S0169) PO SCH (08:49)
[2020-10-17] MEDS: TORSEMIDE 10 MG TABLET PO SCH (08:49)
[2020-10-17] MEDS: LACTOBACILLUS ACIDOPHILUS CAP (BACID) PO SCH ×4 (08:49→21:29)
[2020-10-17] MEDS: METOPROLOL TART 12.5 MG PER 1/2 TAB PO SCH ×2 (08:56→21:29)
[2020-10-17] MEDS: PANTOPRAZOLE 40MG TAB (PROTONIX) PO SCH (08:56)
[2020-10-17] MEDS: MAGNESIUM OXIDE 400MG TAB (MAG-OX) PO SCH (08:56)
[2020-10-17] MEDS: ANUSOL HC CREAM 30GM TOP SCH ×3 (08:57→21:30)
[2020-10-17] MEDS: NYSTATIN 100,000 UNITS/GM TOPICAL PWD 15 GM TOP SCH ×2 (08:57→21:30)
[2020-10-17] MEDS: ASPIRIN 81 MG CHEW TABLET PO SCH (08:57)
--- NOTE | 2020-10-17 11:51 | IPNPDOC ---
PM&R Progress Note DATE OF SERVICE: Oct 16, 2020 Securities Vault Supervisor Progress Note Subjective: Patient reporting his left arm is less itchy and less swollen. REVIEW OF SYSTEMS: The following is a completed review of systems and has been reviewed. Review of systems otherwise unremarkable. PAIN: Patient self reports no pain EYES: No recent vision changes EARS, NOSE, & THROAT: +dysphagia CARDIOVASCULAR: Denies chest pain or palpitations PULMONARY: Denies shortness of breath GASTROINTESTINAL: Denies constipation/diarrhea GENITOURINARY: +macedo MUSCULOSKELETAL: generalized weakness NEUROLOGICAL:denies tremor, +bilat LE and UE paresthesias HEMATOLOGICAL: denies easy bruising SKIN: left groin catheter PSYCHIATRIC: Unremarkable All other review of systems found to be negative. PHYSICAL EXAMINATION: VITAL SIGNS: Please see below. GENERAL: Pleasant and cooperative. No acute distress. HEENT: PERRL. Extraocular movements intact. mild left facial droop CARDIOVASCULAR: Regular rate and rhythm. No murmurs, rubs, or gallops LUNGS: Clear to auscultation bilaterally. No wheezes. No rhonchi ABDOMEN: Soft, nontender, nondistended. Positive bowel sounds. Normal active bowel sounds NEUROLOGICAL: Alert and oriented times three. Cranial nerves II through XII grossly intact. 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 Neuro- patient with left sided weakness and facial droop not acute, CT's done inhouse to r/o infarct which was negative, however unable to get MRi to due LE stenting- symptoms have not worsened during aru stay -peripheral polyneuropathy possibly due to PVD and/or spinal stenosis 3. Cardiac- hx of Afib and aortic valve replacement (bovine) on Warfarin and metoprolol, monitor daily INRs, hx CAD s/p CABG c/u ASA -probable diastolic CHF- daily weights, fluid restrict, renal following closely for fluid management- diuretics per their recs -HLD- c/u statin 4. Resp- hx of COPD s/p tx for aspiration PNA, c/u supplemental oxygen prn , c/u duonebs, monitor for infection 5. renal- CKD and anemia renal following closely 6. - hx of BPH, c/u finasteride and flomax, c/u m[place]o for retention 7. GI ppx- hx of C diff infection, currently on oral vanco for recurrence, need pulse dosing 8. DVT ppx- on warfarin -LUE Doppler negative for DVT 9. Pain- tylnenol prn 10. Dispo- TBD Allergies Coded Allergies: No Known Allergies (Unverified , 01/28/19) Vital Signs Vital Signs Date Time Temp Pulse Resp B/P (MAP) Pulse Ox O2 Delivery O2 Flow Rate FiO2 10/17/20 08:56 74 112/72 10/17/20 05:25 97.5 19 96 Room Air Laboratory Data Labs 24H Laboratory Tests 2 10/17/20 05:47: Prothrombin Time 18.5H, Prothromb Time International Ratio 1.51 Current Medications Current Medications Current Medications Medications (Trade) Dose Ordered Sig/Anju Route PRN Reason Start Time Stop Time Status Last Admin Dose Admin Acetaminophen (Tylenol Tab) 650 mg Q4HP PRN PO fever/MILD PAIN (PS 1-4) 10/10/20 16:00 10/16/20 12:24 Albuterol/ Ipratropium (Duoneb (Ipr 0.5mg/Alb 2.5mg)) 3 ml RTID NEB 10/11/20 14:00 10/17/20 07:30 Aspirin (Aspirin Chewable) 81 mg DAILY PO 10/11/20 09:00 10/17/20 08:57 Calcitriol (Rocaltrol) 0.25 mcg Q2D PO 10/11/20 09:00 10/17/20 08:49 Dextrose/Water 1,000 ml @ 80 mls/hr [id number] IV 10/12/20 10:05 10/13/20 10:24 DC 10/12/20 23:40 Finasteride (Proscar) 5 mg QHS PO 10/10/20 21:00 10/16/20 20:35 Hydrocortisone (Proctosol Hc) apply to left arm TID TOP 10/14/20 16:00 10/17/20 08:57 Lactobacillus Acidophilus (Bacid) 1 ea WMHS PO 10/10/20 18:00 10/17/20 08:49 Lidocaine/ Diphenhydr/Alum/ Mg/Simeth (Magic Mouthwash) 5ML- please do prior... ASDIRECTED SSP 10/11/20 15:00 10/13/20 11:41 Magnesium Oxide (Mag-Ox) 400 mg DAILY PO 10/12/20 09:00 10/17/20 08:56 Metoprolol Tartrate (Lopressor) 12.5 mg BID PO 10/10/20 21:00 10/17/20 08:56 Nystatin (Mycostatin Powder, Nystop) groin BID TOP 10/10/20 21:00 10/17/20 08:57 Ondansetron HCl (Zofran Odt) 4 mg Q6HP PRN PO NAUSEA OR VOMITING 10/15/20 09:40 10/15/20 09:42 Pantoprazole Sodium (Protonix) 40 mg DAILY PO 10/11/20 09:00 10/17/20 08:56 Polymyxin/ Trimethoprim Sulfate (Polytrim Ophth Drops) 1 drop 6XD OU 10/10/20 18:00 10/16/20 17:47 DC 10/16/20 15:37 Sodium Chloride 1,000 ml @ 80 mls/hr [id number] IV 10/11/20 14:35 10/11/20 23:19 DC 10/11/20 15:03 Tamsulosin HCl (Flomax) 0.4 mg DAILY PO 10/11/20 09:00 10/17/20 08:48 Torsemide (Demadex) 10 mg DAILY PO 10/16/20 09:00 10/17/20 08:49 Torsemide (Demadex) 20 mg DAILY PO 10/11/20 09:00 10/11/20 23:19 DC 10/11/20 07:44 Vancomycin HCl (First-Vancomycin 50(Firvanq)- 250mg/5ml) 125 mg Q6H PO 10/10/20 18:00 10/15/20 17:59 DC 10/15/20 12:18 Warfarin Sodium (Coumadin) 1 mg DAILY@17 PO 10/11/20 17:00 10/15/20 20:37 DC 10/15/20 17:25 Warfarin Sodium (Coumadin) 3 mg DAILY@17 PO 10/16/20 17:00 10/17/20 11:43 DC 10/16/20 17:40 Warfarin Sodium (Coumadin) 5 mg DAILY@17 PO 10/17/20 17:00 WONG BATRES MD Oct 17, 2020 11:51
--- NOTE | 2020-10-17 11:52 | IPNPDOC ---
PM&R Progress Note DATE OF SERVICE: Oct 17, 2020 Garment Tag Stringer Progress Note Subjective: Patient seen with his stating his dry heaving was better this afternoon and he overall is feeling stronger. He would like to be able to receive the NuAx Covid shot in-house. His is in agreement. REVIEW OF SYSTEMS: The following is a completed review of systems and has been reviewed. Review of systems otherwise unremarkable. PAIN: Patient self reports no pain EYES: No recent vision changes EARS, NOSE, & THROAT: +dysphagia CARDIOVASCULAR: Denies chest pain or palpitations PULMONARY: Denies shortness of breath GASTROINTESTINAL: Denies constipation/diarrhea GENITOURINARY: +macedo MUSCULOSKELETAL: generalized weakness NEUROLOGICAL:denies tremor, +bilat LE and UE paresthesias HEMATOLOGICAL: denies easy bruising SKIN: left groin catheter PSYCHIATRIC: Unremarkable All other review of systems found to be negative. PHYSICAL EXAMINATION: VITAL SIGNS: Please see below. GENERAL: Pleasant and cooperative. No acute distress. HEENT: PERRL. Extraocular movements intact. mild left facial droop CARDIOVASCULAR: Regular rate and rhythm. No murmurs, rubs, or gallops LUNGS: Clear to auscultation bilaterally. No wheezes. No rhonchi ABDOMEN: Soft, nontender, nondistended. Positive bowel sounds. Normal active bowel sounds NEUROLOGICAL: Alert and oriented times three. Cranial nerves II through XII grossly intact. 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 Neuro- patient with left sided weakness and facial droop not acute, CT's done inhouse to r/o infarct which was negative, however unable to get MRi to due LE stenting- symptoms have not worsened during aru stay -peripheral polyneuropathy possibly due to PVD and/or spinal stenosis 3. Cardiac- hx of Afib and aortic valve replacement (bovine) on Warfarin and metoprolol, monitor daily INRs, hx CAD s/p CABG c/u ASA -probable diastolic CHF- daily weights, fluid restrict, renal following closely for fluid management- diuretics per their recs -HLD- c/u statin 4. Resp- hx of COPD s/p tx for aspiration PNA, c/u supplemental oxygen prn , c/u duonebs, monitor for infection 5. renal- CKD and anemia renal following closely 6. - hx of BPH, c/u finasteride and flomax, c/u m[place]o for retention 7. GI ppx- hx of C diff infection, currently on oral vanco for recurrence, needs pulse dosing 8. DVT ppx- on warfarin -LUE Doppler negative for DVT 9. Pain- tylnenol prn 10. Dispo- 10-26-20 to home, progressing towards goals, agrees to take him home at this level Allergies Coded Allergies: No Known Allergies (Unverified , 01/28/19) Vital Signs Vital Signs Date Time Temp Pulse Resp B/P (MAP) Pulse Ox O2 Delivery O2 Flow Rate FiO2 10/17/20 08:56 74 112/72 10/17/20 05:25 97.5 19 96 Room Air Laboratory Data Labs 24H Laboratory Tests 2 10/17/20 05:47: Prothrombin Time 18.5H, Prothromb Time International Ratio 1.51 Current Medications Current Medications Current Medications Medications (Trade) Dose Ordered Sig/Anju Route PRN Reason Start Time Stop Time Status Last Admin Dose Admin Acetaminophen (Tylenol Tab) 650 mg Q4HP PRN PO fever/MILD PAIN (PS 1-4) 10/10/20 16:00 10/16/20 12:24 Albuterol/ Ipratropium (Duoneb (Ipr 0.5mg/Alb 2.5mg)) 3 ml RTID NEB 10/11/20 14:00 10/17/20 07:30 Aspirin (Aspirin Chewable) 81 mg DAILY PO 10/11/20 09:00 10/17/20 08:57 Calcitriol (Rocaltrol) 0.25 mcg Q2D PO 10/11/20 09:00 10/17/20 08:49 Dextrose/Water 1,000 ml @ 80 mls/hr [id number] IV 10/12/20 10:05 10/13/20 10:24 DC 10/12/20 23:40 Finasteride (Proscar) 5 mg QHS PO 10/10/20 21:00 10/16/20 20:35 Hydrocortisone (Proctosol Hc) apply to left arm TID TOP 10/14/20 16:00 10/17/20 08:57 Lactobacillus Acidophilus (Bacid) 1 ea WMHS PO 10/10/20 18:00 10/17/20 08:49 Lidocaine/ Diphenhydr/Alum/ Mg/Simeth (Magic Mouthwash) 5ML- please do prior... ASDIRECTED SSP 10/11/20 15:00 10/13/20 11:41 Magnesium Oxide (Mag-Ox) 400 mg DAILY PO 10/12/20 09:00 10/17/20 08:56 Metoprolol Tartrate (Lopressor) 12.5 mg BID PO 10/10/20 21:00 10/17/20 08:56 Nystatin (Mycostatin Powder, Nystop) groin BID TOP 10/10/20 21:00 10/17/20 08:57 Ondansetron HCl (Zofran Odt) 4 mg Q6HP PRN PO NAUSEA OR VOMITING 10/15/20 09:40 10/15/20 09:42 Pantoprazole Sodium (Protonix) 40 mg DAILY PO 10/11/20 09:00 10/17/20 08:56 Polymyxin/ Trimethoprim Sulfate (Polytrim Ophth Drops) 1 drop 6XD OU 10/10/20 18:00 10/16/20 17:47 DC 10/16/20 15:37 Sodium Chloride 1,000 ml @ 80 mls/hr [id number] IV 10/11/20 14:35 10/11/20 23:19 DC 10/11/20 15:03 Tamsulosin HCl (Flomax) 0.4 mg DAILY PO 10/11/20 09:00 10/17/20 08:48 Torsemide (Demadex) 10 mg DAILY PO 10/16/20 09:00 10/17/20 08:49 Torsemide (Demadex) 20 mg DAILY PO 10/11/20 09:00 10/11/20 23:19 DC 10/11/20 07:44 Vancomycin HCl (First-Vancomycin 50(Firvanq)- 250mg/5ml) 125 mg Q6H PO 10/10/20 18:00 10/15/20 17:59 DC 10/15/20 12:18 Warfarin Sodium (Coumadin) 1 mg DAILY@17 PO 10/11/20 17:00 10/15/20 20:37 DC 10/15/20 17:25 Warfarin Sodium (Coumadin) 3 mg DAILY@17 PO 10/16/20 17:00 10/17/20 11:43 DC 10/16/20 17:40 Warfarin Sodium (Coumadin) 5 mg DAILY@17 PO 10/17/20 17:00 WONG BATRES MD Oct 17, 2020 11:52
[2020-10-17] MEDS: ONDANSETRON 4 MG ORAL DISINTEGRATING TAB PO PRN (12:28)
--- NOTE | 2020-10-17 12:50 | IPNPDOC ---
Text Note Date of Service The patient was seen on 10/17/20. NOTE Patient was seen and examined at bedside this morning. Doing well. No acute events overnight. PHYSICAL EXAMINATION: General: NAD, comfortable HEENT: PERRLA, EOMI, sclerae clear Neck: supple, normal ROM, no JVD Respiratory: lungs CTAB, no wheeze, no rales, no crackles CVS: RRR, normal S1, S2, no murmurs Abdo: soft, no masses, no hepatosplenomegaly, BS+, no rebound tenderness Extremities: no edema, pulses 2+ MSK: no joint deformities, normal ROM Neuro: no focal neuro deficits, moving all 4 extremities, CN2-12 intact. Strength 5/5 in all 4 extremities. No nystagmus. Psych: calm, cooperative, AAO x 3 LABORATORY DATA, IMAGING STUDIES, MICROBIOLOGY: Please see below. ASSESSMENT AND PLAN: Patient is a history of atrial fibrillation on warfarin, COPD, CHF, C. difficile infection, BPH, and dysphagia, CAD status post CABG with stenting, status post aortic valve replacement, status post bilateral lower extremity stents and prostate cancer. Patient was initially transferred from [facility] subsequent to a fall in setting of diarrhea, infection, as well as hematuria. She was found to be have retention with acute renal failure, and subtherapeutic INR. Patient underwent CRRT in his kidney function has since recovered slightly. Initially, patient had developed dysphagia with possible aspiration pneumonia in addition to diarrhea which tested positive for C. difficile. Patient was transfe rred to [facility] inpatient and treated with by mouth vancomycin and IV Flagyl. Patient currently on pudding thick liquids and pured diet. Diarrhea has resolved and he continues to complete his course of by mouth vancomycin. Warfarin resumed at 1 mg qpm. 1. C. difficile diarrhea: PO vancomycin completed. Diarrhea controlled 2. Dysphagia. Has had dysphagia before in the past. In 2016, had respiratory failure with placement of a PEG tube and trach. There was subsequently removed. Per speech therapy on 10/09/20, now recommending level 2 with pudding thick liquids 3. Aspiration pneumonia versus pneumonitis. No fever or leukocytosis. Patient breathing at room air. Last pro calcitonin was borderline low and now has down trended. 4. Atrial fibrillation. Persistent/ Rate controlled. On PO Lopressor. Monitor INR as on warfarin, therapeutic 5. GERD. PO PPI 6. Acute kidney injury. Cr improving and stable. nephrology is following will defer resuming torsemide 7. Secondary hyperparathyroidism. On calcitriol every other day 8. Debility and weakness. Patient reports 1 month of left arm weakness. Unable to obtain MRI/MRA due to bilateral stents and legs for peripheral vascular disease. Unable to do CT angiogram due to acute kidney injury. carotid US (bilat) shows no severe stenosis 9. DVT prophylaxis. On warfarin, currently supratherapeutic Disposition: As per ARU VS,Dahlia, I+O VS, Dahlia, I+O Vital Signs Date Time Temp Pulse Resp B/P (MAP) Pulse Ox O2 Delivery O2 Flow Rate FiO2 10/17/20 08:56 74 112/72 10/17/20 05:25 97.5 19 96 Room Air I&O- Last 24 Hours up to 6 AM 10/17/20 06:00 Intake Total 510 ml Output Total 825 ml Balance -315 ml HUMBERTO RODRIGES MD Oct 17, 2020 12:49
[2020-10-17 14:00] VITALS: BP 134/85
[2020-10-17] MEDS: VANCOMYCIN ORAL SOL 250MG/5ML ORAL SYRINGE PO SCH ×2 (15:50→21:30)
[2020-10-17] MEDS: WARFARIN SOD 5MG TAB PO SCH (15:51)
[2020-10-17] MEDS ORDERED: TORSEMIDE 10 MG TABLET PO ONE (17:00)
--- NOTE | 2020-10-17 17:37 | IPN ---
PROGRESS NOTE DATE: 10/17/2020 Mr. Manzano is seen this morning on his bedside. He is sitting in the chair at the time of my visit. He is in good spirits today and denies any nausea or vomiting. He still has leg edema but no dyspnea or chest pain. His Naidu catheter is draining clear urine. PHYSICAL EXAMINATION: Temperature 97.5 degrees Fahrenheit, heart rate 74 per minute, respiratory rate 18 per minute, blood pressure 112/72 mmHg, and oxygen saturation 96% on room air. His Head is atraumatic. Neck supple and without jugular venous distention (JVD) or thyroid enlargement. Heart sounds are irregular in rhythm and lungs with few basilar crepitations. Abdomen soft, and nontender and without hepatomegaly or organomegaly. Bowel sounds are normal. Extremities without any cyanosis or clubbing. Lower extremity edema is 2+ bilaterally. Neurologically, he is awake and at his baseline mentation without a focal deficit. Patient did not have any new labs done today other than a PT of 18.5 and INR 1.51. PROBLEMS: 1. Acute on chronic kidney disease. Kidney function is essentially unchanged. We will recheck his renal profile tomorrow morning. 2. Congestive heart failure. His volume status is decompensated, and intake and output records from yesterday show only a negative fluid balance of 230 mL if it is accurate. His weight is up by 1 kg. I am increasing his torsemide dose to 20 mg daily and will monitor for next couple of days before making any further adjustment. 3. Hypernatremia. His hypernatremia was related to diarrhea caused by Clostridium (C) difficile and has now improved and resolved. His diuretics were held for awhile, and now they have been resumed. Electrolytes will be checked again tomorrow morning. 4. Anemia. Mild anemia has been stable and does not need any intervention at present.
[2020-10-17] MEDS: FINASTERIDE 5 MG TAB PO SCH (21:29)
[2020-10-17 22:00] VITALS: BP 135/86
[2020-10-18 05:00] VITALS: BP 130/88
[2020-10-18] MEDS: REMEDY PHYTOPLEX Z-GUARD PASTE 113GM TUBE (FROM STOREROOM PRODUCT) TOP SCH ×4 (05:24→20:37)
[2020-10-18 06:28] LABS: BASO % 0.9 % (0.0-1.0); EOS # 0.3 10^3/uL (0.0-0.5); HEMATOCRIT 33.8 % (42.0-52.0); HEMOGLOBIN 10.7 g/dl (13.5-17.5); LYMPH % 21.9 % (24.0-44.0); MEAN CORPUSCULAR HEMOGLOBIN 31.2 pg (27.0-33.0); MEAN CORPUSCULAR HGB CONC 31.7 g/dl (32.0-36.5); MEAN CORPUSCULAR VOLUME 98.5 fl (80.0-96.0); MONO # 0.4 10^3/uL (0.0-0.8); NEUTROPHILS # 2.8 10^3/uL (1.5-8.5); PLATELET COUNT, AUTOMATED 170 10^3/uL (150-450); RED BLOOD COUNT 3.43 10^6/uL (4.30-6.10); WHITE BLOOD COUNT 4.5 10^3/uL (4.0-10.0)
[2020-10-18 06:37] LABS: INR 1.61; PROTHROMBIN TIME 19.5 SECONDS (12.5-14.3)
[2020-10-18 06:57] LABS: CALCIUM LEVEL 9.1 MG/DL (8.8-10.2); CREATININE FOR GFR 1.59 MG/DL (0.70-1.30); GLOMERULAR FILTRATION RATE 44.7 (>35); POTASSIUM SERUM 4.3 MEQ/L (3.5-5.1)
[2020-10-18] MEDS: IPRATROPIUM 0.5MG/ALBUTEROL 2.5MG INH SOL UD 3ML (DUONEB) NEB SCH ×3 (07:25→20:59)
[2020-10-18] MEDS: MAGNESIUM OXIDE 400MG TAB (MAG-OX) PO SCH (09:48)
[2020-10-18] MEDS: PANTOPRAZOLE 40MG TAB (PROTONIX) PO SCH (09:48)
[2020-10-18] MEDS: LACTOBACILLUS ACIDOPHILUS CAP (BACID) PO SCH ×4 (09:48→20:36)
[2020-10-18] MEDS: TAMSULOSIN 0.4 MG CAP PO SCH (09:48)
[2020-10-18] MEDS: ASPIRIN 81 MG CHEW TABLET PO SCH (09:48)
[2020-10-18] MEDS: TORSEMIDE 20 MG TAB PO SCH (09:48)
[2020-10-18] MEDS: ANUSOL HC CREAM 30GM TOP SCH ×3 (09:49→20:36)
[2020-10-18] MEDS: VANCOMYCIN ORAL SOL 250MG/5ML ORAL SYRINGE PO SCH ×2 (09:49→20:35)
[2020-10-18] MEDS: METOPROLOL TART 12.5 MG PER 1/2 TAB PO SCH ×2 (09:49→20:37)
[2020-10-18] MEDS: NYSTATIN 100,000 UNITS/GM TOPICAL PWD 15 GM TOP SCH ×2 (09:49→20:36)
--- NOTE | 2020-10-18 12:58 | IPNPDOC ---
PM&R Progress Note DATE OF SERVICE: Oct 18, 2020 Rn Rehabilitation Progress Note Subjective: Patient seen in his room stating he had a good day in therapy and is still interested in receiving the covid injection. He has no new complaints and no fur ther diarrhea. REVIEW OF SYSTEMS: The following is a completed review of systems and has been reviewed. Review of systems otherwise unremarkable. PAIN: Patient self reports no pain EYES: No recent vision changes EARS, NOSE, & THROAT: +dysphagia CARDIOVASCULAR: Denies chest pain or palpitations PULMONARY: Denies shortness of breath GASTROINTESTINAL: Denies constipation/diarrhea GENITOURINARY: +macedo MUSCULOSKELETAL: generalized weakness NEUROLOGICAL:denies tremor, +bilat LE and UE paresthesias HEMATOLOGICAL: denies easy bruising SKIN: left groin catheter PSYCHIATRIC: Unremarkable All other review of systems found to be negative. PHYSICAL EXAMINATION: VITAL SIGNS: Please see below. GENERAL: Pleasant and cooperative. No acute distress. HEENT: PERRL. Extraocular movements intact. mild left facial droop CARDIOVASCULAR: Regular rate and rhythm. No murmurs, rubs, or gallops LUNGS: Clear to auscultation bilaterally. No wheezes. No rhonchi ABDOMEN: Soft, nontender, nondistended. Positive bowel sounds. Normal active bowel sounds NEUROLOGICAL: Alert and oriented times three. Cranial nerves II through XII grossly intact. Sensation grossly diminished to light touch in stocking/glove pattern) EXTREMITIES: RUE eblow flexion/extension 5/5, wrist extension 5/5, oncology social worker 4/5 (finger deformity from old injury), RLE 5/5, Left elbow flexion/extension wrist extension, oncology social worker 3+/5, left hip flexors >3/5 (limited due to groin pain) knee extension 4/5, ankle DF 3+/5 (+) bilat LE edema (improving) LUE edema (improving) with ecchymosis ASSESSMENT:80-year-old M with past medical history of COPD, CHF who presents status post oliguric renal failure PLAN: 1. 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 Neuro- patient with left sided weakness and facial droop not acute, CT's done inhouse to r/o infarct which was negative, however unable to get MRi to due LE stenting- symptoms have not worsened during aru stay -peripheral polyneuropathy possibly due to PVD and/or spinal stenosis 3. Cardiac- hx of Afib and aortic valve replacement (bovine) on Warfarin and metoprolol, monitor daily INRs, hx CAD s/p CABG c/u ASA -probable diastolic CHF- daily weights, fluid restrict, renal following closely for fluid management- diuretics per their recs -HLD- c/u statin 4. Resp- hx of COPD s/p tx for aspiration PNA, c/u supplemental oxygen prn , c/u duonebs, monitor for infection 5. renal- CKD and anemia renal following closely 6. - hx of BPH, c/u finasteride and flomax, c/u macedo for retention 7. GI ppx- hx of C diff infection, currently on oral vanco for recurrence, needs pulse dosing 8. DVT ppx- on warfarin -LUE Doppler negative for DVT 9. Pain- tylnenol prn 10. Dispo- 10-26-20 to home, progressing towards goals, agrees to take him home at this level Allergies Coded Allergies: No Known Allergies (Unverified , 01/28/19) Vital Signs Vital Signs Date Time Temp Pulse Resp B/P (MAP) Pulse Ox O2 Delivery O2 Flow Rate FiO2 10/18/20 09:49 70 130/88 10/18/20 05:00 97.7 18 96 Room Air Laboratory Data CBC/BMP Laboratory Tests 10/18/20 06:11 Labs 24H Laboratory Tests 2 10/18/20 06:11: Immature Granulocyte % (Auto) 0.2, Neutrophils (%) (Auto) 63.0, Lymphocytes (%) (Auto) 21.9L, Monocytes (%) (Auto) 8.0, Eosinophils (%) (Auto) 6.0H, Basophils (%) (Auto) 0.9, Neutrophils # (Auto) 2.8, Lymphocytes # (Auto) 1.0L, Monocytes # (Auto) 0.4, Eosinophils # (Auto) 0.3, Basophils # (Auto) 0.0, Nucleated Red Blood Cells % (auto) 0.0, Prothrombin Time 19.5H, Prothromb Time International Ratio 1.61, Anion Gap 3L, Glomerular Filtration Rate 44.7, Calcium Level 9.1 Current Medications Current Medications Current Medications Medications (Trade) Dose Ordered Sig/Anju Route PRN Reason Start Time Stop Time Status Last Admin Dose Admin Acetaminophen (Tylenol Tab) 650 mg Q4HP PRN PO fever/MILD PAIN (PS 1-4) 10/10/20 16:00 10/16/20 12:24 Albuterol/ Ipratropium (Duoneb (Ipr 0.5mg/Alb 2.5mg)) 3 ml RTID NEB 10/11/20 14:00 10/18/20 07:25 Aspirin (Aspirin Chewable) 81 mg DAILY PO 10/11/20 09:00 10/18/20 09:48 Calcitriol (Rocaltrol) 0.25 mcg Q2D PO 10/11/20 09:00 10/17/20 08:49 Dextrose/Water 1,000 ml @ 80 mls/hr [id number] IV 10/12/20 10:05 10/13/20 10:24 DC 10/12/20 23:40 Finasteride (Proscar) 5 mg QHS PO 10/10/20 21:00 10/17/20 21:29 Hydrocortisone (Proctosol Hc) apply to left arm TID TOP 10/14/20 16:00 10/18/20 09:49 Lactobacillus Acidophilus (Bacid) 1 ea WMHS PO 10/10/20 18:00 10/18/20 12:22 Lidocaine/ Diphenhydr/Alum/ Mg/Simeth (Magic Mouthwash) 5ML- please do prior... ASDIRECTED SSP 10/11/20 15:00 10/13/20 11:41 Magnesium Oxide (Mag-Ox) 400 mg DAILY PO 10/12/20 09:00 10/18/20 09:48 Metoprolol Tartrate (Lopressor) 12.5 mg BID PO 10/10/20 21:00 10/18/20 09:49 Nystatin (Mycostatin Powder, Nystop) groin BID TOP 10/10/20 21:00 10/18/20 09:49 Ondansetron HCl (Zofran Odt) 4 mg Q6HP PRN PO NAUSEA OR VOMITING 10/15/20 09:40 10/17/20 12:28 Pantoprazole Sodium (Protonix) 40 mg DAILY PO 10/11/20 09:00 10/18/20 09:48 Polymyxin/ Trimethoprim Sulfate (Polytrim Ophth Drops) 1 drop 6XD OU 10/10/20 18:00 10/16/20 17:47 DC 10/16/20 15:37 Sodium Chloride 1,000 ml @ 80 mls/hr [id number] IV 10/11/20 14:35 10/11/20 23:19 DC 10/11/20 15:03 Tamsulosin HCl (Flomax) 0.4 mg DAILY PO 10/11/20 09:00 10/18/20 09:48 Torsemide (Demadex) 10 mg DAILY PO 10/16/20 09:00 10/17/20 12:02 DC 10/17/20 08:49 Torsemide (Demadex) 20 mg DAILY PO 10/18/20 09:00 10/18/20 09:48 Torsemide (Demadex) 20 mg DAILY PO 10/11/20 09:00 10/11/20 23:19 DC 10/11/20 07:44 Vancomycin HCl (First-Vancomycin 50(Firvanq)- 250mg/5ml) 125 mg BID PO 10/17/20 11:50 10/18/20 09:49 Vancomycin HCl (First-Vancomycin 50(Firvanq)- 250mg/5ml) 125 mg Q6H PO 10/10/20 18:00 10/15/20 17:59 DC 10/15/20 12:18 Warfarin Sodium (Coumadin) 1 mg DAILY@17 PO 10/11/20 17:00 10/15/20 20:37 DC 10/15/20 17:25 Warfarin Sodium (Coumadin) 3 mg DAILY@17 PO 10/16/20 17:00 10/17/20 11:43 DC 10/16/20 17:40 Warfarin Sodium (Coumadin) 5 mg DAILY@17 PO 10/17/20 17:00 10/17/20 15:51 WONG SIMMONS MD Oct 18, 2020 12:58
[2020-10-18 14:00] VITALS: BP 134/80
--- NOTE | 2020-10-18 17:20 | IPNPDOC ---
Text Note Date of Service The patient was seen on 10/18/20. NOTE Patient was seen and examined at bedside this morning. Doing well. No acute e vents overnight. PHYSICAL EXAMINATION: General: NAD, comfortable HEENT: PERRLA, EOMI, sclerae clear Neck: supple, normal ROM, no JVD Respiratory: lungs CTAB, no wheeze, no rales, no crackles CVS: RRR, normal S1, S2, no murmurs Abdo: soft, no masses, no hepatosplenomegaly, BS+, no rebound tenderness Extremities: no edema, pulses 2+ MSK: no joint deformities, normal ROM Neuro: no focal neuro deficits, moving all 4 extremities, CN2-12 intact. Strength 5/5 in all 4 extremities. No nystagmus. Psych: calm, cooperative, AAO x 3 LABORATORY DATA, IMAGING STUDIES, MICROBIOLOGY: Please see below. ASSESSMENT AND PLAN: Patient is a history of atrial fibrillation on warfarin, COPD, CHF, C. difficile infection, BPH, and dysphagia, CAD status post CABG with stenting, status post aortic valve replacement, status post bilateral lower extremity stents and prostate cancer. Patient was initially transferred from [facility] subsequent to a fall in setting of diarrhea, infection, as well as hematuria. She was found to be have retention with acute renal failure, and subtherapeutic INR. Patient underwent CRRT in his kidney function has since recovered slightly. Initially, patient had developed dysphagia with possible aspiration pneumonia in addition to diarrhea which tested positive for C. difficile. Patient was transferred to [facility] inpatient and treated with by mouth vancomycin and IV Flagyl. Patient currently on pudding thick liquids and pured diet. 1. C. difficile diarrhea: PO vancomycin completed. Diarrhea controlled 2. Dysphagia. Has had dysphagia before in the past. In 2016, had respiratory failure with placement of a PEG tube and trach. There was subsequently removed. Per speech therapy on 10/09/20, now recommending level 2 with pudding thick liquids 3. Aspiration pneumonia versus pneumonitis. No fever or leukocytosis. Patient breathing at room air. Last pro calcitonin was borderline low and now has down trended. 4. Atrial fibrillation. Persistent/ Rate controlled. On PO Lopressor. Monitor INR as on warfarin, therapeutic 5. GERD. PO PPI 6. Acute kidney injury. Cr improving and stable. nephrology is following will defer resuming torsemide 7. Secondary hyperparathyroidism. On calcitriol every other day 8. Debility and weakness. Patient reports 1 month of left arm weakness. Unable to obtain MRI/MRA due to bilateral stents and legs for peripheral vascular disease. Unable to do CT angiogram due to acute kidney injury. carotid US (bilat) shows no severe stenosis 9. DVT prophylaxis. On warfarin, currently supratherapeutic Disposition: As per ARU VS,Dahlia, I+O VS, Dahlia, I+O Laboratory Tests 10/18/20 06:11 Vital Signs Date Time Temp Pulse Resp B/P (MAP) Pulse Ox O2 Delivery O2 Flow Rate FiO2 10/18/20 14:00 97.1 78 18 134/80 (98) 94 Room Air I&O- Last 24 Hours up to 6 AM 10/18/20 06:00 Intake Total 350 ml Output Total 1175 ml Balance -825 ml HUMBERTO RODRIGES MD Oct 18, 2020 17:20
[2020-10-18] MEDS: WARFARIN SOD 5MG TAB PO SCH (17:30)
[2020-10-18 20:00] VITALS: BP 130/84
--- NOTE | 2020-10-18 20:34 | IPN ---
PROGRESS NOTE DATE: 10/18/2020 SUBJECTIVE: Mr. Manzano is seen this morning on his bedside. He is sitting in the chair as usual. He is in good spirits and feels much better. His diarrhea has improved and he still continues with oral Vancomycin due to recent C. diff. He denies any nausea or vomiting today. His leg edema persists and he denies any dyspnea or chest pain. PHYSICAL EXAMINATION: VITALS: Temperature 97.7 degrees Fahrenheit, heart rate 70 per minute, respiratory rate 18 per minute, blood pressure 130/88 mmHg and oxygen saturation 96% on room air. HEENT: Head atraumatic. Neck supple and JVD seems to be mildly elevated while he is sitting upright in the chair. LUNGS: Bibasilar creps. HEART: Sounds are regular. ABDOMEN: Soft and nontender. Bowel sounds are normal. EXTREMITIES: Without any cyanosis or clubbing. Lower extremity edema is still 2+ bilaterally. He has a Naidu catheter which is draining clear urine. NEUROLOGIC: He is at his baseline mentation, without a focal deficit. LABORATORY DATA: Today's labs show hemoglobin 10.7 and hematocrit 33.8. BUN 16, creatinine 1.59, sodium 143 and potassium 4.3. PROBLEMS: 1. Acute on chronic congestive heart failure: His volume status is slightly decompensated. We have just increased his diuretic and he seems to be diuresing reasonably well. I will continue to monitor his daily weight and intake and output records. Probably his intake is not recorded accurately. 2. Acute kidney injury superimposed on chronic kidney disease: Slight changes are related to fluid volume fluctuation. His diuretic has been increased and his creatinine increased slightly expectedly. 3. Hypernatremia: He did have hypernatremia last week, which has improved and stabilized. At present, his sodium is unchanged and we will continue to monitor while he is being diuresed. 4. Hyperparathyroidism: Patient remains on Calcitriol 0.25 mcg daily. 5. Eczema left arm: This is improving nicely with Hydrocortisone.
[2020-10-18] MEDS: FINASTERIDE 5 MG TAB PO SCH (20:36)
[2020-10-19] MEDS ORDERED: diphenhydrAMINE 50MG/ML VIAL (J1200) IM PRN
[2020-10-19] MEDS ORDERED: EPINEPHrine INJ 1 MG/ML 1ML AMP IM PRN
[2020-10-19 06:00] VITALS: BP 136/82
[2020-10-19] MEDS: REMEDY PHYTOPLEX Z-GUARD PASTE 113GM TUBE (FROM STOREROOM PRODUCT) TOP SCH ×3 (06:02→17:40)
[2020-10-19 06:12] LABS: INR 1.87; PROTHROMBIN TIME 21.9 SECONDS (12.5-14.3)
[2020-10-19] MEDS: IPRATROPIUM 0.5MG/ALBUTEROL 2.5MG INH SOL UD 3ML (DUONEB) NEB SCH ×3 (07:36→20:00)
[2020-10-19] MEDS: VANCOMYCIN ORAL SOL 250MG/5ML ORAL SYRINGE PO SCH ×2 (09:08→20:33)
[2020-10-19] MEDS: CALCITRIOL 0.25 MCG CAP (S0169) PO SCH (09:09)
[2020-10-19] MEDS: TORSEMIDE 20 MG TAB PO SCH (09:09)
[2020-10-19] MEDS: TAMSULOSIN 0.4 MG CAP PO SCH (09:09)
[2020-10-19] MEDS: MAGNESIUM OXIDE 400MG TAB (MAG-OX) PO SCH (09:09)
[2020-10-19] MEDS: PANTOPRAZOLE 40MG TAB (PROTONIX) PO SCH (09:09)
[2020-10-19] MEDS: ASPIRIN 81 MG CHEW TABLET PO SCH (09:09)
[2020-10-19] MEDS: METOPROLOL TART 12.5 MG PER 1/2 TAB PO SCH ×2 (09:10→20:33)
[2020-10-19] MEDS: ANUSOL HC CREAM 30GM TOP SCH ×3 (09:10→20:34)
[2020-10-19] MEDS: LACTOBACILLUS ACIDOPHILUS CAP (BACID) PO SCH ×4 (09:10→20:33)
[2020-10-19] MEDS: NYSTATIN 100,000 UNITS/GM TOPICAL PWD 15 GM TOP SCH ×2 (09:11→20:34)
--- NOTE | 2020-10-19 10:24 | IPNPDOC ---
Text Note Date of Service The patient was seen on 10/19/20. NOTE atient was seen and examined at bedside this morning. No acute events overnight. PHYSICAL EXAMINATION: General: NAD, comfortable HEENT: PERRLA, EOMI, sclerae clear Neck: supple, normal ROM, no JVD Respiratory: lungs CTAB, no wheeze, no rales, no crackles CVS: RRR, normal S1, S2, no murmurs Abdo: soft, no masses, no hepatosplenomegaly, BS+, no rebound tenderness Extremities: no edema, pulses 2+ MSK: no joint deformities, normal ROM Neuro: no focal neuro deficits, moving all 4 extremities, CN2-12 intact. Strengt h 5/5 in all 4 extremities. No nystagmus. Psych: calm, cooperative, AAO x 3 LABORATORY DATA, IMAGING STUDIES, MICROBIOLOGY: Please see below. ASSESSMENT AND PLAN: Patient is a history of atrial fibrillation on warfarin, COPD, CHF, C. difficile infection, BPH, and dysphagia, CAD status post CABG with stenting, status post aortic valve replacement, status post bilateral lower extremity stents and prostate cancer. Patient was initially transferred from [facility] subsequent to a fall in setting of diarrhea, infection, as well as hematuria. She was found to be have retention with acute renal failure, and subtherapeutic INR. Patient underwent CRRT in his kidney function has since recovered slightly. Initially, patient had developed dysphagia with possible aspiration pneumonia in addition to diarrhea which tested positive for C. difficile. Patient was transferred to [facility] inpatient and treated with by mouth vancomycin and IV Flagyl. Patient currently on pudding thick liquids and pured diet. 1. C. difficile diarrhea: PO vancomycin completed. Diarrhea controlled 2. Dysphagia. Has had dysphagia before in the past. In 2016, had respiratory failure with placement of a PEG tube and trach. There was subsequently removed. Per speech therapy on 10/09/20, now recommending level 2 with pudding thick liquids 3. Aspiration pneumonia versus pneumonitis. No fever or leukocytosis. Patient breathing at room air. Last pro calcitonin was borderline low and now has down trended. 4. Atrial fibrillation. Persistent/ Rate controlled. On PO Lopressor. Monitor INR as on warfarin, therapeutic 5. GERD. PO PPI 6. Acute kidney injury. Cr improving and stable. nephrology is following will defer resuming torsemide 7. Secondary hyperparathyroidism. On calcitriol every other day 8. Debility and weakness. Patient reports 1 month of left arm weakness. Unable to obtain MRI/MRA due to bilateral stents and legs for peripheral vascular disease. Unable to do CT angiogram due to acute kidney injury. carotid US (bilat) shows no severe stenosis 9. DVT prophylaxis. On warfarin, currently supratherapeutic Disposition: As per ARU VS,Fishbone, I+O VS, Fishbone, I+O Vital Signs Date Time Temp Pulse Resp B/P (MAP) Pulse Ox O2 Delivery O2 Flow Rate FiO2 10/19/20 09:10 98 115/67 10/19/20 06:00 97.6 18 94 Room Air I&O- Last 24 Hours up to 6 AM 10/19/20 05:59 Intake Total 420 ml Output Total 1300 ml Balance -880 ml HUMBERTO RODRIGES MD Oct 19, 2020 10:24
[2020-10-19] MEDS ORDERED: hydrOXYzine 25 MG TAB PO PRN (10:25)
--- NOTE | 2020-10-19 10:28 | IPNPDOC ---
PM&R Progress Note DATE OF SERVICE: Oct 19, 2020 Rejogger Progress Note Subjective: PAtient is in agreement to receive the covid injection today and states he is having a good day in therapy. REVIEW OF SYSTEMS: The following is a completed review of systems and has been reviewed. Review of systems otherwise unremarkable. PAIN: Patient self reports no pain EYES: No recent vision changes EARS, NOSE, & THROAT: +dysphagia CARDIOVASCULAR: Denies chest pain or palpitations PULMONARY: Denies shortness of breath GASTROINTESTINAL: Denies constipation/diarrhea GENITOURINARY: +macedo MUSCULOSKELETAL: generalized weakness NEUROLOGICAL:denies tremor, +bilat LE and UE paresthesias HEMATOLOGICAL: denies easy bruising SKIN: left groin catheter PSYCHIATRIC: Unremarkable All other review of systems found to be negative. PHYSICAL EXAMINATION: VITAL SIGNS: Please see below. GENERAL: Pleasant and cooperative. No acute distress. HEENT: PERRL. Extraocular movements intact. mild left facial droop CARDIOVASCULAR: Regular rate and rhythm. No murmurs, rubs, or gallops LUNGS: Clear to auscultation bilaterally. No wheezes. No rhonchi ABDOMEN: Soft, nontender, nondistended. Positive bowel sounds. Normal active bowel sounds NEUROLOGICAL: Alert and oriented times three. Cranial nerves II through XII grossly intact. Sensation grossly diminished to light touch in stocking/glove pattern) EXTREMITIES: RUE eblow flexion/extension 5/5, wrist extension 5/5, gericare aide teacher 4/5 (finger deformity from old injury), RLE 5/5, Left elbow flexion/extension wrist extension, gericare aide teacher 3+/5, left hip flexors >3/5 (limited due to groin pain) knee extension 4/5, ankle DF 3+/5 (+) bilat LE edema (improving) LUE edema (improving) with ecchymosis right heel pressure ulcer ASSESSMENT:80-year-old M with past medical history of COPD, CHF who presents status post oliguric renal failure PLAN: 1. Rehab- PT/OT advance mobility and ADLs, strengthen/stretch/maintain ROM all 4limbs- ambulating with RW inconsistent levels of support required -SECOND BAKER dysphagia etiology unknown, upgraded today to level 2, c/u pudding thickened liquids 2. Neuro- patient with left sided weakness and facial droop not acute, CT's done inhouse to r/o infarct which was negative, however unable to get MRi to due LE stenting- symptoms have not worsened during aru stay -peripheral polyneuropathy possibly due to PVD and/or spinal stenosis 3. Cardiac- hx of Afib and aortic valve replacement (bovine) on Warfarin and metoprolol, monitor daily INRs, hx CAD s/p CABG c/u ASA -probable diastolic CHF- daily weights, fluid restrict, renal following closely for fluid management- diuretics per their recs -HLD- c/u statin 4. Resp- hx of COPD s/p tx for aspiration PNA, c/u supplemental oxygen prn , c/u duonebs, monitor for infection 5. renal- CKD and anemia renal following closely 6. - hx of BPH, c/u finasteride and flomax, c/u macedo for retention- will trial removal on Friday 7. GI ppx- hx of C diff infection, currently on oral vanco for recurrence, needs pulse dosing 8. DVT ppx- on warfarin -LUE Doppler negative for DVT 9. Pain- tylnenol prn 10. Derm- patient with back urticaria which he had on previous ARU admission and states is a recurrent issue, will add hydrocortisone cream to back, and p atarax prn itch -right heel ulcer noted to day on exam, was not present on prior admission, and unclear when this developed, foam dressing ordered and heel floats 10. Dispo- 10-26-20 to home, progressing towards goals, agrees to take him home at this level Allergies Coded Allergies: No Known Allergies (Unverified , 01/28/19) Vital Signs Vital Signs Date Time Temp Pulse Resp B/P (MAP) Pulse Ox O2 Delivery O2 Flow Rate FiO2 10/19/20 09:10 98 115/67 10/19/20 06:00 97.6 18 94 Room Air Laboratory Data Labs 24H Laboratory Tests 2 10/19/20 05:39: Prothrombin Time 21.9H, Prothromb Time International Ratio 1.87 Current Medications Current Medications Current Medications Medications (Trade) Dose Ordered Sig/Anju Route PRN Reason Start Time Stop Time Status Last Admin Dose Admin Acetaminophen (Tylenol Tab) 650 mg Q4HP PRN PO fever/MILD PAIN (PS 1-4) 10/10/20 16:00 10/16/20 12:24 Albuterol/ Ipratropium (Duoneb (Ipr 0.5mg/Alb 2.5mg)) 3 ml RTID NEB 10/11/20 14:00 10/19/20 07:36 Aspirin (Aspirin Chewable) 81 mg DAILY PO 10/11/20 09:00 10/19/20 09:09 Calcitriol (Rocaltrol) 0.25 mcg Q2D PO 10/11/20 09:00 10/19/20 09:09 Dextrose/Water 1,000 ml @ 80 mls/hr [id number] IV 10/12/20 10:05 10/13/20 10:24 DC 10/12/20 23:40 Diphenhydramine HCl (Benadryl) 50 mg ASDIRECTED PRN IM ANAPHYLAXIS 10/19/20 00:00 10/19/20 23:59 Epinephrine HCl (Adrenalin) 0.3 mg ASDIRECTED PRN IM ANAPHYLAXIS 10/19/20 00:00 10/19/20 23:59 Finasteride (Proscar) 5 mg QHS PO 10/10/20 21:00 10/18/20 20:36 Hydrocortisone (Proctosol Hc) apply to left arm TID TOP 10/14/20 16:00 10/19/20 09:10 Lactobacillus Acidophilus (Bacid) 1 ea WMHS PO 10/10/20 18:00 10/19/20 09:10 Lidocaine/ Diphenhydr/Alum/ Mg/Simeth (Magic Mouthwash) 5ML- please do prior... ASDIRECTED SSP 10/11/20 15:00 10/13/20 11:41 Magnesium Oxide (Mag-Ox) 400 mg DAILY PO 10/12/20 09:00 10/19/20 09:09 Metoprolol Tartrate (Lopressor) 12.5 mg BID PO 10/10/20 21:00 10/19/20 09:10 Nystatin (Mycostatin Powder, Nystop) groin BID TOP 10/10/20 21:00 10/19/20 09:11 Ondansetron HCl (Zofran Odt) 4 mg Q6HP PRN PO NAUSEA OR VOMITING 10/15/20 09:40 10/17/20 12:28 Pantoprazole Sodium (Protonix) 40 mg DAILY PO 10/11/20 09:00 10/19/20 09:09 Polymyxin/ Trimethoprim Sulfate (Polytrim Ophth Drops) 1 drop 6XD OU 10/10/20 18:00 10/16/20 17:47 DC 10/16/20 15:37 Sodium Chloride 1,000 ml @ 80 mls/hr [id number] IV 10/11/20 14:35 10/11/20 23:19 DC 10/11/20 15:03 Tamsulosin HCl (Flomax) 0.4 mg DAILY PO 10/11/20 09:00 10/19/20 09:09 Torsemide (Demadex) 10 mg DAILY PO 10/16/20 09:00 10/17/20 12:02 DC 10/17/20 08:49 Torsemide (Demadex) 20 mg DAILY PO 10/18/20 09:00 10/19/20 09:09 Torsemide (Demadex) 20 mg DAILY PO 10/11/20 09:00 10/11/20 23:19 DC 10/11/20 07:44 Vancomycin HCl (First-Vancomycin 50(Firvanq)- 250mg/5ml) 125 mg BID PO 10/17/20 11:50 10/19/20 09:08 Vancomycin HCl (First-Vancomycin 50(Firvanq)- 250mg/5ml) 125 mg Q6H PO 10/10/20 18:00 10/15/20 17:59 DC 10/15/20 12:18 Warfarin Sodium (Coumadin) 1 mg DAILY@17 PO 10/11/20 17:00 10/15/20 20:37 DC 10/15/20 17:25 Warfarin Sodium (Coumadin) 3 mg DAILY@17 PO 10/16/20 17:00 10/17/20 11:43 DC 10/16/20 17:40 Warfarin Sodium (Coumadin) 5 mg DAILY@17 PO 10/17/20 17:00 10/18/20 17:30 WONG SIMMONS MD Oct 19, 2020 10:28
[2020-10-19] MEDS ORDERED: hydrOXYzine 25 MG TAB PO ONE (10:45)
[2020-10-19] MEDS ORDERED: COVID-19 VAC,AD26(JANSSEN)/PF 0.5ML SYRINGE (EUA) IM ONE (12:00)
[2020-10-19 14:00] VITALS: BP 106/57
[2020-10-19] MEDS: WARFARIN SOD 5MG TAB PO SCH (17:39)
[2020-10-19 20:20] VITALS: BP 132/78
[2020-10-19] MEDS: FINASTERIDE 5 MG TAB PO SCH (20:33)
[2020-10-20] MEDS: REMEDY PHYTOPLEX Z-GUARD PASTE 113GM TUBE (FROM STOREROOM PRODUCT) TOP SCH ×5 (00:11→21:23)
[2020-10-20 06:00] VITALS: BP 151/91
[2020-10-20 06:08] LABS: BASO % 0.8 % (0.0-1.0); EOS # 0.4 10^3/uL (0.0-0.5); EOS % 7.9 % (0.0-3.0); HEMATOCRIT 33.5 % (42.0-52.0); HEMOGLOBIN 10.6 g/dl (13.5-17.5); LYMPH # 1.1 10^3/uL (1.5-5.0); LYMPH % 22.4 % (24.0-44.0); MEAN CORPUSCULAR HEMOGLOBIN 31.3 pg (27.0-33.0); MEAN CORPUSCULAR HGB CONC 31.6 g/dl (32.0-36.5); MEAN CORPUSCULAR VOLUME 98.8 fl (80.0-96.0); MONO # 0.5 10^3/uL (0.0-0.8); MONO % 9.1 % (2.0-8.0); NEUTROPHILS % 59.6 % (36.0-66.0); PLATELET COUNT, AUTOMATED 165 10^3/uL (150-450); RED BLOOD COUNT 3.39 10^6/uL (4.30-6.10); WHITE BLOOD COUNT 5.1 10^3/uL (4.0-10.0)
[2020-10-20 06:23] LABS: INR 1.9; PROTHROMBIN TIME 22.2 SECONDS (12.5-14.3)
[2020-10-20 06:27] LABS: CALCIUM LEVEL 9.1 MG/DL (8.8-10.2); CREATININE FOR GFR 1.78 MG/DL (0.70-1.30); GLOMERULAR FILTRATION RATE 39.2 (>35)
[2020-10-20] MEDS: IPRATROPIUM 0.5MG/ALBUTEROL 2.5MG INH SOL UD 3ML (DUONEB) NEB SCH ×3 (07:26→18:31)
--- NOTE | 2020-10-20 08:12 | IPN ---
PROGRESS NOTE DATE: 10/19/2020 SUBJECTIVE: Mr. Manzano is seen this morning on his bedside. He is sitting in the chair as usual. He denies any dyspnea or chest pain. There is no nausea, vomiting, fever or chills. PHYSICAL EXAMINATION: GENERAL: Patient is awake and alert and without any acute distress. VITALS: Temperature 97.6 degrees Fahrenheit, heart rate 88 per minute, respiratory rate 18 per minute, blood pressure 136/82 mmHg and oxygen saturation 94% on room air. HEENT: Head is atraumatic. Neck supple and without JVD or thyroid enlargement. LUNGS: Bibasilar creps more on the left side than the right. HEART: Sounds are irregular in rhythm. ABDOMEN: Soft and nontender. Bowel sounds are normal. EXTREMITIES: Without any cyanosis or clubbing. Lower extremity edema is 1+ bilaterally. NEUROLOGIC: He is awake, alert and at his baseline mentation. LABORATORY DATA: Patient did not have any new labs. His renal function has been mostly stable. PROBLEMS: 1. Acute on chronic congestive heart failure: Volume status is improving with a negative fluid balance of just over 1 liter yesterday. We will continue with twice a day Torsemide for now. He still has some leg edema and lung sound improved, but still have some crackles at bases. 2. Acute on chronic kidney disease: His kidney function is mostly stable with mild fluctuations in BUN and creatinine. His renal profile will be checked again tomorrow morning. 3. C. diff colitis: Patient is continuing with oral Vancomycin and diarrhea has resolved. 4. BPH: He remains with Naidu catheter and has been on Flomax and Proscar for about a week. We will remove his Naidu catheter at least 48 hours prior to discharge to ensure that he can urinate without problem. 5. Anemia: At present his anemia is stable and does not need any urgent intervention.
[2020-10-20] MEDS: ASPIRIN 81 MG CHEW TABLET PO SCH (09:16)
[2020-10-20] MEDS: TORSEMIDE 20 MG TAB PO SCH (09:16)
[2020-10-20] MEDS: TAMSULOSIN 0.4 MG CAP PO SCH (09:16)
[2020-10-20] MEDS: VANCOMYCIN ORAL SOL 250MG/5ML ORAL SYRINGE PO SCH ×2 (09:16→21:22)
[2020-10-20] MEDS: PANTOPRAZOLE 40MG TAB (PROTONIX) PO SCH (09:17)
[2020-10-20] MEDS: MAGNESIUM OXIDE 400MG TAB (MAG-OX) PO SCH (09:17)
[2020-10-20] MEDS: METOPROLOL TART 12.5 MG PER 1/2 TAB PO SCH ×2 (09:18→21:00)
[2020-10-20] MEDS: ANUSOL HC CREAM 30GM TOP SCH ×3 (09:19→21:22)
[2020-10-20] MEDS: NYSTATIN 100,000 UNITS/GM TOPICAL PWD 15 GM TOP SCH ×2 (09:19→21:22)
[2020-10-20] MEDS: LACTOBACILLUS ACIDOPHILUS CAP (BACID) PO SCH ×4 (09:22→21:22)
[2020-10-20] MEDS: ONDANSETRON 4 MG ORAL DISINTEGRATING TAB PO PRN (12:22)
[2020-10-20 14:00] VITALS: BP 152/88
[2020-10-20] MEDS: WARFARIN SOD 5MG TAB PO SCH (16:23)
[2020-10-20 20:00] VITALS: BP 94/60
--- NOTE | 2020-10-20 20:19 | IPN ---
NEPHROLOGY PROGRESS NOTE DATE: 10/20/2020 SUBJECTIVE: Mr. Manzano is seen this morning on his bedside. He is in the wheelchair and his is visiting him. Patient is in good spirits today. He is anticipating going home next week. Nursing staff reports that there is a plan for removing his Naidu catheter today. PHYSICAL EXAMINATION: Temperature 97.5 degrees Fahrenheit, heart rate 110 per minute, respiratory rate 18 per minute, blood pressure 137/67 mmHg, oxygen saturation 95% on room air. HEAD: Atraumatic. NECK: Supple and without jugular venous distention (JVD) sitting upright. LUNGS: Have only occasional basilar rales. HEART SOUNDS: Tachycardic and irregular in rhythm. ABDOMEN: Soft and nontender. Bowel sounds are normal. EXTREMITIES: Without any cyanosis or clubbing. Edema of his hands has completely resolved. Lower extremity edema is improving. 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 LABORATORY STUDIES: Today's labs show WBC 5.1, hemoglobin 10.6, hematocrit 33.5, platelets 165. Sodium 143, potassium 4.0, BUN 19, creatinine 1.78, glucose 97, calcium 9.1. PROBLEMS: 1. Congestive heart failure. Volume status has improved significantly. We will continue with 20 mg of torsemide per day. 2. Acute on chronic kidney disease. His kidney function is slightly worse, but this is expected with diuresis. I will not change anything for now. We will need to monitor his kidney function over the next couple of days as his Naidu catheter is going to be removed today. 3. Urinary retention. Patient has been on Flomax and Proscar for more than a week. Nursing staff is going to remove his Naidu catheter later today and he will need to be closely monitored for retention of urine. 4. Anemia. At present, anemia is stable and essentially unchanged over the last four days. 5. Atrial fibrillation. INR is up to 1.90 today and ventricular rate is reasonably well-controlled. 6. Clostridium (C) difficile colitis. His diarrhea has improved and he remains on oral vancomycin with a tapering dose.
[2020-10-20] MEDS: FINASTERIDE 5 MG TAB PO SCH (21:22)
[2020-10-21] MEDS: ACETAMINOPHEN TAB 650MG DOSE (2X325MG) PO PRN ×2 (02:43→20:52)
[2020-10-21 05:20] VITALS: BP 146/85
[2020-10-21] MEDS: REMEDY PHYTOPLEX Z-GUARD PASTE 113GM TUBE (FROM STOREROOM PRODUCT) TOP SCH ×4 (06:44→20:54)
[2020-10-21 07:00] LABS: INR 2.7; PROTHROMBIN TIME 29.3 SECONDS (12.5-14.3)
[2020-10-21] MEDS: IPRATROPIUM 0.5MG/ALBUTEROL 2.5MG INH SOL UD 3ML (DUONEB) NEB SCH ×3 (07:25→20:08)
[2020-10-21] MEDS: ASPIRIN 81 MG CHEW TABLET PO SCH (09:15)
[2020-10-21] MEDS: CALCITRIOL 0.25 MCG CAP (S0169) PO SCH (09:15)
[2020-10-21] MEDS: VANCOMYCIN ORAL SOL 250MG/5ML ORAL SYRINGE PO SCH ×2 (09:15→20:52)
[2020-10-21] MEDS: PANTOPRAZOLE 40MG TAB (PROTONIX) PO SCH (09:15)
[2020-10-21] MEDS: TAMSULOSIN 0.4 MG CAP PO SCH (09:15)
[2020-10-21] MEDS: MAGNESIUM OXIDE 400MG TAB (MAG-OX) PO SCH (09:15)
[2020-10-21] MEDS: TORSEMIDE 20 MG TAB PO SCH (09:15)
[2020-10-21] MEDS: METOPROLOL TART 12.5 MG PER 1/2 TAB PO SCH ×2 (09:18→20:51)
[2020-10-21] MEDS: NYSTATIN 100,000 UNITS/GM TOPICAL PWD 15 GM TOP SCH ×2 (10:01→20:53)
[2020-10-21] MEDS: LACTOBACILLUS ACIDOPHILUS CAP (BACID) PO SCH ×4 (10:01→20:51)
[2020-10-21] MEDS: ANUSOL HC CREAM 30GM TOP SCH ×3 (10:02→20:53)
[2020-10-21 14:00] VITALS: BP 129/72
[2020-10-21] MEDS: WARFARIN SOD 5MG TAB PO SCH (16:24)
[2020-10-21 20:00] VITALS: BP 129/84
[2020-10-21] MEDS: FINASTERIDE 5 MG TAB PO SCH (20:51)
--- NOTE | 2020-10-21 22:52 | IPN ---
NEPHROLOGY PROGRESS NOTE DATE: 10/21/2020 SUBJECTIVE: Patient was seen and examined at the bedside today morning in the rehab unit. He is afebrile, hemodynamically stable. He denies any active complaints at this time. He continues to be on diuretics. Leg edema is improving. There is slight bump in the creatinine today from 1.5 to 1.7. OBJECTIVE: VITAL SIGNS: Temperature 97.2 degrees Fahrenheit, blood pressure 129/72, pulse 89, respiratory rate 18, sating 94% on room air. INTAKE/OUTPUT: Urine output is not recorded. Weight in the bed scale is 76.8 kg. PHYSICAL EXAMINATION: GENERAL: Patient is awake, alert and oriented x3, sitting up in the sofa, in no apparent distress. HEAD AND NECK: Extraocular muscles intact. Pupils equally round and reactive to light. Mucous membranes are moist. Neck is supple. No JVD. RESPIRATORY: Chest is clear to auscultation bilaterally. Bilateral equal air entry. No rales or rhonchi. CARDIOVASCULAR: S1, S2, regular rate. 2+ edema of the bilateral lower extremities up to the shins. ABDOMEN: Soft, positive bowel sounds, nontender. No organomegaly. MUSCULOSKELETAL: No clubbing or cyanosis. Pulses are 2+. STUDENT CAREER DEVELOPMENT SPECIALIST: No focal deficit. Power is 5/5 in all extremities. LABORATORY DATA: CBC is from yesterday. BMP is also from yesterday with creatinine 1.7. No labs are available today. CURRENT INPATIENT MEDICATIONS: Patient's medications were all reviewed by myself. Patient continues to be on Torsemide 20 mg p.o. daily. ASSESSMENT AND PLAN: 1. Acute renal failure superimposed on chronic kidney disease: Patient's creatinine has been fluctuating between 1.5 to 1.7. Okay to continue current dose of diuretic. 2. Congestive heart failure: Patient is on Torsemide 20 mg p.o. daily. Lower extremity edema is improving. Continue to monitor intake and output. 3. Urinary retention: Patient is on Proscar and Flomax. Naidu catheter has been removed and voiding trial is being done. 4. C. diff colitis: Patient's diarrhea is getting better. He continues to be on tapering dose of oral Vancomycin.
[2020-10-22 06:00] VITALS: BP 134/79
[2020-10-22] MEDS: REMEDY PHYTOPLEX Z-GUARD PASTE 113GM TUBE (FROM STOREROOM PRODUCT) TOP SCH ×3 (06:08→18:29)
[2020-10-22 06:56] LABS: INR 3.25; PROTHROMBIN TIME 33.9 SECONDS (12.5-14.3)
[2020-10-22] MEDS: IPRATROPIUM 0.5MG/ALBUTEROL 2.5MG INH SOL UD 3ML (DUONEB) NEB SCH ×3 (07:18→20:00)
[2020-10-22] MEDS: ASPIRIN 81 MG CHEW TABLET PO SCH (09:09)
[2020-10-22] MEDS: LACTOBACILLUS ACIDOPHILUS CAP (BACID) PO SCH ×4 (09:09→21:00)
[2020-10-22] MEDS: MAGNESIUM OXIDE 400MG TAB (MAG-OX) PO SCH (09:09)
[2020-10-22] MEDS: TAMSULOSIN 0.4 MG CAP PO SCH (09:09)
[2020-10-22] MEDS: TORSEMIDE 20 MG TAB PO SCH (09:09)
[2020-10-22] MEDS: ANUSOL HC CREAM 30GM TOP SCH ×3 (09:10→21:02)
[2020-10-22] MEDS: NYSTATIN 100,000 UNITS/GM TOPICAL PWD 15 GM TOP SCH ×2 (09:10→21:01)
[2020-10-22] MEDS: VANCOMYCIN ORAL SOL 250MG/5ML ORAL SYRINGE PO SCH ×2 (09:10→21:01)
[2020-10-22] MEDS: PANTOPRAZOLE 40MG TAB (PROTONIX) PO SCH (09:10)
[2020-10-22] MEDS: METOPROLOL TART 12.5 MG PER 1/2 TAB PO SCH ×2 (09:13→21:01)
[2020-10-22 14:00] VITALS: BP 122/75
[2020-10-22] MEDS ORDERED: WARFARIN SOD 2.5MG TAB PO ONE (17:00)
[2020-10-22] MEDS: ONDANSETRON 4 MG ORAL DISINTEGRATING TAB PO PRN (18:30)
[2020-10-22 20:00] VITALS: BP 119/76
[2020-10-22] MEDS: ACETAMINOPHEN TAB 650MG DOSE (2X325MG) PO PRN (21:00)
[2020-10-22] MEDS: FINASTERIDE 5 MG TAB PO SCH (21:01)
--- NOTE | 2020-10-22 22:19 | IPN ---
PROGRESS NOTE DATE: 10/22/2020 SUBJECTIVE: Patient was seen and examined at the bedside today morning. He is afebrile, hemodynamically stable. He continues to be on diuretic. No new labs are available today. He continues to get physical therapy and denies any active complaints. OBJECTIVE: Vital signs: Temperature is 98.3 degrees Fahrenheit, blood pressure 122/75, pulse is 99, respiratory rate of 20, saturating 97% on room air. Intake and output: Urine output recorded is 500 mL. Weight in the bed scale is 75.8 kg. PHYSICAL EXAMINATION: General: Patient is awake, alert, oriented times three, sitting up in the sofa, no apparent distress. Head and neck exam: Extraocular muscles intact. Pupils equally round and reactive to light. Mucous membranes are moist. Neck is supple. There is no jugular venous distension (JVD). Cardiovascular: S1, S2, regular rate. 1+ edema of the bilateral lower extremities. Respiratory: Chest is clear to auscultation bilaterally. Bilateral equal air entry. No rales or rhonchi. Abdomen: Soft, positive bowel sounds, nontender, no organomegaly. Musculoskeletal: No clubbing or cyanosis. Pulses are 2+. Central nervous system (CHALKER SOLES): No focal deficit. Power is 5/5 in all extremities. LABORATORY REVIEW: No new labs are available for today. CURRENT INPATIENT MEDICATIONS: Patient's medications were all reviewed by myself. He continues to be on torsemide 20 mg by mouth daily. ASSESSMENT AND PLAN: 1. Acute renal failure superimposed on chronic kidney disease. Patient's latest creatinine has been fluctuating around 1.6 to 1.7. Next basic metabolic panel (BMP) is pending for tomorrow. Okay to continue current diuretic regimen. 2. Congestive heart failure. Continue torsemide 20 mg by daily. Edema is improving. 3. Urinary retention. Patient is on Proscar and Flomax. Naidu catheter has been removed. Postvoid has revealed 300. If he continues to have high residuals, he might need Naidu catheter back in again. 4. Clostridium (C) difficile colitis. He continues to be on oral vancomycin. Diarrhea has improved.
[2020-10-23] MEDS: REMEDY PHYTOPLEX Z-GUARD PASTE 113GM TUBE (FROM STOREROOM PRODUCT) TOP SCH ×4 (00:10→18:37)
[2020-10-23 06:00] VITALS: BP 122/76
[2020-10-23 06:38] LABS: BASO % 0.5 % (0.0-1.0); EOS # 0.5 10^3/uL (0.0-0.5); EOS % 11.1 % (0.0-3.0); HEMATOCRIT 35.8 % (42.0-52.0); LYMPH # 1.5 10^3/uL (1.5-5.0); LYMPH % 35.1 % (24.0-44.0); MEAN CORPUSCULAR HEMOGLOBIN 30.8 pg (27.0-33.0); MEAN CORPUSCULAR HGB CONC 30.7 g/dl (32.0-36.5); MEAN CORPUSCULAR VOLUME 100.3 fl (80.0-96.0); MONO # 0.4 10^3/uL (0.0-0.8); MONO % 10.3 % (2.0-8.0); NEUTROPHILS # 1.8 10^3/uL (1.5-8.5); NEUTROPHILS % 42.8 % (36.0-66.0); PLATELET COUNT, AUTOMATED 145 10^3/uL (150-450); RED BLOOD COUNT 3.57 10^6/uL (4.30-6.10); WHITE BLOOD COUNT 4.2 10^3/uL (4.0-10.0)
[2020-10-23 06:51] LABS: INR 3.61; PROTHROMBIN TIME 36.8 SECONDS (12.5-14.3)
[2020-10-23 07:06] LABS: CALCIUM LEVEL 9.1 MG/DL (8.8-10.2); CREATININE FOR GFR 2.15 MG/DL (0.70-1.30); GLOMERULAR FILTRATION RATE 31.6 (>35)
[2020-10-23] MEDS: IPRATROPIUM 0.5MG/ALBUTEROL 2.5MG INH SOL UD 3ML (DUONEB) NEB SCH ×3 (07:15→20:13)
[2020-10-23] MEDS: METOPROLOL TART 12.5 MG PER 1/2 TAB PO SCH ×2 (09:09→20:40)
[2020-10-23] MEDS: ASPIRIN 81 MG CHEW TABLET PO SCH (09:09)
[2020-10-23] MEDS: TAMSULOSIN 0.4 MG CAP PO SCH (09:09)
[2020-10-23] MEDS: MAGNESIUM OXIDE 400MG TAB (MAG-OX) PO SCH (09:09)
[2020-10-23] MEDS: PANTOPRAZOLE 40MG TAB (PROTONIX) PO SCH (09:09)
[2020-10-23] MEDS: CALCITRIOL 0.25 MCG CAP (S0169) PO SCH (09:09)
[2020-10-23] MEDS: LACTOBACILLUS ACIDOPHILUS CAP (BACID) PO SCH ×4 (09:09→20:41)
[2020-10-23] MEDS: NYSTATIN 100,000 UNITS/GM TOPICAL PWD 15 GM TOP SCH ×2 (09:10→20:40)
[2020-10-23] MEDS: VANCOMYCIN ORAL SOL 250MG/5ML ORAL SYRINGE PO SCH ×2 (09:10→20:41)
[2020-10-23] MEDS: ANUSOL HC CREAM 30GM TOP SCH ×3 (09:10→20:40)
[2020-10-23 14:00] VITALS: BP 117/68
[2020-10-23 20:00] VITALS: BP 116/66
[2020-10-23] MEDS: FINASTERIDE 5 MG TAB PO SCH (20:39)
[2020-10-23] MEDS: ACETAMINOPHEN TAB 650MG DOSE (2X325MG) PO PRN (20:41)
--- NOTE | 2020-10-23 22:47 | IPN ---
NEPHROLOGY PROGRESS NOTE DATE: 10/23/2020 SUBJECTIVE: Patient was seen and examined at the bedside today morning in the rehab unit. He is afebrile, hemodynamically stable. I was told by the nursing staff today that patient is still requiring straight catheterizations after his Naidu catheter was removed. His renal function is slightly worse than baseline. His diuretic dose was stopped because of worsening creatinine. OBJECTIVE: VITAL SIGNS: Temperature 97.4 degrees Fahrenheit, blood pressure 116/66, pulse 68, respiratory rate 18, sating 94% on room air. INTAKE/OUTPUT: Urine output recorded as 500 mL yesterday and 325 mL so far today since overnight. Weight in the bed scale is 74.1 kg. PHYSICAL EXAMINATION: GENERAL: Patient is awake, alert and oriented x3, sitting up in the bed, in no apparent distress. HEAD AND NECK: Extraocular muscles intact. Pupils equally round and reactive to light. Mucous membranes are moist. Neck is supple. No JVD. RESPIRATORY: Chest is clear to auscultation bilaterally. Bilateral equal air entry. No rales or rhonchi. CVS: S1, S2, regular rate. Trace edema of the bilateral lower extremities. ABDOMEN: Soft, positive bowel sounds. Mild fullness in the suprapubic region noted. MUSCULOSKELETAL: No clubbing or cyanosis. Pulses are 2+. TAX COMPLIANCE AGENT: No focal deficit. Power is 5/5 in all extremities. LABORATORY DATA: CBC showed WBC 4.2, hemoglobin 11, platelets 145,000. BMP showed sodium 144, potassium 4, chloride 109, bicarb 31, BUN 23, creatinine 2.1; it was 1.7 three days ago. CURRENT INPATIENT MEDICATIONS: Patient's medications were all reviewed by myself. Torsemide was stopped today morning. ASSESSMENT AND PLAN: 1. Acute renal failure superimposed on chronic kidney disease: Patient's diuretic is being held. He is going into retention again, requiring straight catheterizations. If he frequently requires straight cath, then Naidu catheter will be placed back again. 2. Congestive heart failure: Volume status is optimal and because of rising creatinine, Torsemide dose was held in the morning. 3. Urinary retention: Continue Flomax and Proscar. Continue straight cath p.r.n. for post void residual more than 300. 4. C. diff colitis: Symptoms are resolved. He is currently on Vancomycin 125 mg p.o. twice a day.
[2020-10-24] MEDS: REMEDY PHYTOPLEX Z-GUARD PASTE 113GM TUBE (FROM STOREROOM PRODUCT) TOP SCH ×3 (00:16→09:55)
[2020-10-24 06:00] VITALS: BP 117/63
[2020-10-24 06:34] LABS: INR 3.69; PROTHROMBIN TIME 37.5 SECONDS (12.5-14.3)
[2020-10-24] MEDS: IPRATROPIUM 0.5MG/ALBUTEROL 2.5MG INH SOL UD 3ML (DUONEB) NEB SCH (07:26)
[2020-10-24] MEDS: LACTOBACILLUS ACIDOPHILUS CAP (BACID) PO SCH ×2 (08:00→12:27)
[2020-10-24] MEDS ORDERED: PROAAER10 INH (08:45)
[2020-10-24] MEDS ORDERED: CALC1CAP31 PO (08:45)
[2020-10-24] MEDS ORDERED: PROC1CRE5 TOP (08:45)
[2020-10-24] MEDS ORDERED: PERI12LIQ PO (08:45)
[2020-10-24] MEDS ORDERED: RISATAB3 PO (08:45)
[2020-10-24] MEDS ORDERED: ASPI81CH8 PO (08:45)
[2020-10-24] MEDS ORDERED: FLOM0.4C39 PO (08:45)
[2020-10-24] MEDS ORDERED: METO1TAB87 PO (08:45)
[2020-10-24] MEDS ORDERED: FINA5TAB2 PO (08:45)
[2020-10-24] MEDS ORDERED: FIRV50SO PO (08:45)
[2020-10-24] MEDS ORDERED: ELIQ2.5T PO (08:45)
[2020-10-24] MEDS ORDERED: MAGN400T2 PO (08:45)
[2020-10-24] MEDS ORDERED: TORSEMIDE 10 MG TABLET PO SCH (09:00)
[2020-10-24 09:53] VITALS: BP 117/63
[2020-10-24] MEDS: TAMSULOSIN 0.4 MG CAP PO SCH (09:53)
[2020-10-24] MEDS: ASPIRIN 81 MG CHEW TABLET PO SCH (09:53)
[2020-10-24] MEDS: METOPROLOL TART 12.5 MG PER 1/2 TAB PO SCH (09:53)
[2020-10-24] MEDS: VANCOMYCIN ORAL SOL 250MG/5ML ORAL SYRINGE PO SCH (09:54)
[2020-10-24] MEDS: MAGNESIUM OXIDE 400MG TAB (MAG-OX) PO SCH (09:54)
[2020-10-24] MEDS: PANTOPRAZOLE 40MG TAB (PROTONIX) PO SCH (09:54)
[2020-10-24] MEDS: ANUSOL HC CREAM 30GM TOP SCH (09:58)
[2020-10-24] MEDS: NYSTATIN 100,000 UNITS/GM TOPICAL PWD 15 GM TOP SCH (09:58)
[2020-10-24 10:15] LABS: ALBUMIN 2.9 GM/DL (3.2-5.2); CALCIUM LEVEL 9.4 MG/DL (8.8-10.2); CREATININE FOR GFR 2.03 MG/DL (0.70-1.30); GLOMERULAR FILTRATION RATE 33.7 (>35)
--- NOTE | 2020-10-24 23:38 | IPN ---
NEPHROLOGY PROGRESS NOTE DATE: 10/24/2020 SUBJECTIVE: The patient was seen and examined at the bedside today morning. He is afebrile, hemodynamically stable. He had to have the Naidu catheter placed back in because of recurrent retention requiring straight catheterization. Creatinine is stable today as compared with yesterday. He is currently not on any diuretics. OBJECTIVE: VITAL SIGNS: Temperature is 97.1 degrees Fahrenheit, blood pressure 117/63, pulse is 85, respiratory rate of 18, saturating 97% on room air. INTAKE AND OUTPUT: Urine output is not recorded. Weight in the bed scale is 74.1 kg. PHYSICAL EXAMINATION: GENERAL APPEARANCE: The patient is awake, alert, oriented x3, sitting up in the sofa in no apparent distress. HEAD AND NECK: Extraocular muscles intact. Pupils are equally round and reactive to light. Mucous membranes are moist. Neck is supple. There is no jugular venous distention. CARDIOVASCULAR: S1, S2, regular rate. EXTREMITIES: 1+ edema of the bilateral lower extremities. RESPIRATORY: Chest is clear to auscultation bilaterally. Bilaterally currently no rales or rhonchi. ABDOMEN: Soft, positive bowel sounds, nontender, no organomegaly. GENITOURINARY: He has an indwelling Naidu catheter. MUSCULOSKELETAL: No clubbing, no cyanosis. Pulses are 2+. DELINQUENCY PREVENTION SOCIAL WORKER: No focal deficits. Power is 5/5 in all extremities. LAB REVIEW: CBC showed a WBC of 4.2, hemoglobin is 11, platelet count 145. BNP showed sodium 143, potassium 4, chloride 108, bicarbonate 31, BUN 23, creatinine is 2, it was 2.1 yesterday. CURRENT INPATIENT MEDICATIONS: The patient's medications were all reviewed by myself. I have started the patient on Torsemide 10 mg p.o. daily. No other significant change in the medications today as compared with yesterday. ASSESSMENT AND PLAN: 1. Acute renal failure superimposed on chronic kidney disease the patient's diuretic dose has been decreased to Torsemide 10 mg daily and Naidu catheter has been placed back in. 2. Congestive heart failure volume status is being optimized. Diuretic dose has been decreased. 3. Urinary retention - The patient is on Proscar and Flomax. A Naidu catheter has been placed again. He will need to follow up with Urology. 4. C-diff colitis - symptoms are resolved. He is currently on a tapering dose of Vancomycin oral, 125 mg twice daily. The patient is okay to be discharged from a Nephrology standpoint. He will need to follow up with Nephrology as an outpatient.
--- NOTE | 2020-11-14 11:23 | PMRDS ---
NAME: BRITTON GOMEZ [facility] WT ID#: [id number] JOB: [id number] ELIO: 10/24/2020 ACCT: [id number] DOCTOR: WONG SIMMONS MD PMR DISCHARGE SUMMARY DATE OF ADMISSION: 10/10/2020 DATE OF DISCHARGE: 10/24/2020 CHIEF COMPLAINT/DISCHARGE DIAGNOSIS: C. Diff infection and aspiration pneumonia. HISTORY OF PRESENT ILLNESS: This is an 80-year-old man with a past medical history of atrial fibrillation on Coumadin, COPD, CHF, BPH, C. Diff infection, dysphagia requiring temporary PEG, CAD status post CABG with stents, status post aortic valve replacement, status post bilateral lower extremity stents, prostate cancer. He presented to [facility] ED on 09/06/2020 from [facility] following a fall at home in the setting of a diarrheal infection and ongoing hematuria, he was found to be hypotensive and in acute renal failure with a supratherapeutic INR. He was started on CVVHD for his acute oliguric renal failure and to treat his acute CHF exacerbation. He was followed closely by renal, showed improved urine output with relatively stable kidney function, was weaned off oxygen, evaluated by therapy and deemed medically appropriate for discharge to ARU on 09/13/2020 for mobility and ADL impairments. On ARU he had waxing and waning left sided weakness, a CTA was negative for acute intracranial pathology, an MRI was unable to be performed due to lower extremity stenting. He developed dysphagia with aspiration pneumonia in addition to diarrhea with positive C. Diff for which he was treated with IV Flagyl and p.o. Vancomycin. He then failed a modified barium swallow on 10/06/2020 after which he was made NPO and transferred to the PCU for further monitoring. He was noted to have an elevated INR for which his coumadin was held and continued on antibiotics. He had another modified barium swallow on 10/09/2020 and was upgraded to puree and pudding thickened liquids, noted to have considerable mobility and ADL impairments in therapy and deemed medically appropriate for discharge to ARU on 10/10/2020. PAST MEDICAL HISTORY: As per HPI. HOSPITAL COURSE: Patient was admitted and enrolled in a comprehensive PT/OT, Speech Language Pathology Program. He received 24 hour nursing supervision and weekly team meetings were held to discuss his progress. Patient was eventually upgraded to a Level 2 diet, however, was required to continue on pudding thickened liquids. He followed the [facility] Protocol appropriately. The patient continued to be followed by renal during his hospital course, remained on a fluid restriction and was placed on diuretics. He developed left upper extremity swelling for which Doppler was negative for DVT and he received steroid cream for cellulitis. His diarrhea improved and he was continued on a course of Vancomycin with pulse dosing. He was continued on DuoNeb and supplemental oxygen for his recent aspiration pneumonia in the setting of COPD. He continued to have fluctuating INRs on coumadin and was discharged home on Eliquis. DISCHARGE MEDICATIONS: As per instructions. FUNCTIONAL HISTORY: On discharge the patient was contact guard assist for functional transfers, mod assist for ambulation. DISCHARGE MEDICATIONS: As per instructions. Thank you for this referral.
== END 2020-10-24 15:11 | disposition home health service (06) | DRG 73 ==
LOC: M PM&R 16:35
PROVIDERS: ADMIT Physical Medicine & Rehabilitation; ATTEND Physical Medicine & Rehabilitation
DX: G62.9 Polyneuropathy, unspecified (principal); I50.33 Acute on chronic diastolic (congestive) heart failure; N25.81 Secondary hyperparathyroidism of renal origin; A04.71 Enterocolitis due to Clostridium difficile, recurrent; I48.19 Other persistent atrial fibrillation; N17.9 Acute kidney failure, unspecified; E87.0 Hyperosmolality and hypernatremia; R53.1 Weakness; J44.9 Chronic obstructive pulmonary disease, unspecified; N40.1 Benign prostatic hyperplasia with lower urinary tract symptoms; R33.9 Retention of urine, unspecified; I25.10 Atherosclerotic heart disease of native coronary artery without angina pectoris; Z66 Do not resuscitate; N18.32 Chronic kidney disease, stage 3b; L89.612 Pressure ulcer of right heel, stage 2; I73.9 Peripheral vascular disease, unspecified; R29.810 Facial weakness; D63.1 Anemia in chronic kidney disease; L30.9 Dermatitis, unspecified; R13.10 Dysphagia, unspecified; Z79.01 Long term (current) use of anticoagulants; Z85.46 Personal history of malignant neoplasm of prostate; Z95.3 Presence of xenogenic heart valve; Z95.5 Presence of coronary angioplasty implant and graft; Z95.820 Peripheral vascular angioplasty status with implants and grafts; Z79.82 Long term (current) use of aspirin; Z79.899 Other long term (current) drug therapy

== ENCOUNTER → 2021-05-01 | Outpatient (CLI) | payer MEDICARE ==
[~2021-05-01] MED LIST changes: +ALLO10TA PO; +ASPI81CH8 PO; +CRES40TA PO; +ELIQ2.5T PO; +FERR324T21 PO; -FERR325T16 PO; +FERR325T3 PO; +GASTROGRAFIN SOLUTION 30ML (Q9963) As Ordered ONE; -KLOR10TA76 PO; +MAGN400T2 PO; +METO1TAB87 PO; +MIDO5TA PO; +MULT1TAB7 PO; +PERI12LIQ PO; +POTA-136 PO; +PROTPAK PO; +SERT-141 PO; +TOPR50TA PO; +WARF4TAB52 PO
--- NOTE | 2021-05-01 16:25 | REP ---
INDICATION: PROSTATE CA COMPARISON: CT chest 10/03/2020.. TECHNIQUE: CT Scan of the abdomen and pelvis was performed without intravenous contrast. Oral contrast was administered. Sagittal and coronal reconstruction images performed. FINDINGS: Lung bases: Mild patchy bibasilar atelectasis/infiltrate with a small left pleural effusion.. Liver: Grossly unremarkable. Gallbladder: Subcentimeter gallstones are seen in the gallbladder. Spleen: Grossly unremarkable. Adrenals: Normal. Pancreas: Grossly unremarkable.. Kidneys: No hydronephrosis or nephrolithiasis. Ureters demonstrate no dilatation or calculus. Small and large bowel: Grossly unremarkable. Free fluid: None. Abdominal aorta: No aneurysm. Adenopathy: None. Appendix: Not inflamed. Osseous structures: There are degenerative changes of the spine. There is mild loss of height of the T11 and L1 vertebral bodies, unchangedSince 10/03/2020.. Pelvis: No mass. No bladder calculus seen. A Naidu catheter balloon is inflated in the posterior penile urethra just below the prostate. IMPRESSION: Mild patchy bibasilar atelectasis/infiltrate with small left pleural effusion. Subcentimeter gallstones in the gallbladder. Mild stable compression deformities T11 and L1 vertebral bodies. Naidu catheter balloon is inflated in the posterior penile urethra just below the prostate. <Electronically signed by Devon Beavers > 05/01/21 [id number]
--- NOTE | 2021-05-01 16:45 | REP ---
INDICATION: PROSTATE CA. COMPARISON: None. TECHNIQUE: CT chest performed without the use of intravenous contrast. Sagittal and coronal reconstruction images are performed. FINDINGS: Lungs: There is a stable 5 mm nodule in the right upper lobe medially on image 31.. In the lateral aspect of the right middle lobe there is a new 7 mm slightly irregular nodule on image 43. More posteriorly and inferiorly there is mild increase in patchy atelectasis/infiltrate. Several scattered calcified granulomas are seen in the right lung. On the left there is mild increase in patchy left lower lobe atelectasis/infiltrate. There are few scattered calcified granulomas in the left lung. Mediastinum: No gross adenopathy. Traci: No gross adenopathy. Axilla: No gross adenopathy. Pleura: There is a new small left pleural effusion. Heart: Not enlarged. Thoracic aorta: There is ectasia of the ascending thoracic aorta up to 4.1 cm in diameter. Visualized osseous structures: There are degenerative changes of the spine with mild stable chronic loss of height of T11 vertebral body.. IMPRESSION: New small left effusion with mild increase in patchy atelectasis/infiltrate in each lung base. In the lateral right middle lobe there is a new 7 mm irregular nodular density on image 43 which could be inflammatory. Follow-up recommended. <Electronically signed by Devon Beavers > 05/01/21 [id number]
== END ==
LOC: M RAD 14:29
PROVIDERS: ATTEND Internal Medicine Hematology & Oncology
DX: C61 Malignant neoplasm of prostate (principal)
CPT/HCPCS: 71250; 74176; Q9963